=== PATIENT | female | born 1950 | race Caucasian/White ===

== ENCOUNTER → 2019-08-08 08:17 | Outpatient (BNVA) | payer MEDICARE, OTHER, SELFPAY | PROVIDERS: Family Provider Nurse Practitioner Family; PCP Internal Medicine; Referring Provider Nurse Practitioner Family; Visit Provider Anesthesiology Pain Medicine | DX: M43.06 Spondylolysis, lumbar region (principal); M54.9 Dorsalgia, unspecified; M62.830 Muscle spasm of back; Z79.891 Long term (current) use of opiate analgesic | CPT/HCPCS: 99203; 99204 ==

== ENCOUNTER → 2019-11-06 12:51 | Outpatient (BNVA) | payer MEDICARE, OTHER, SELFPAY | PROVIDERS: Family Provider Nurse Practitioner Family; PCP Internal Medicine; Visit Provider Internal Medicine | DX: R73.9 Hyperglycemia, unspecified (principal); E03.9 Hypothyroidism, unspecified; E27.40 Unspecified adrenocortical insufficiency; D35.2 Benign neoplasm of pituitary gland; E89.3 Postprocedural hypopituitarism; E26.9 Hyperaldosteronism, unspecified; E03.8 Other specified hypothyroidism; R42 Dizziness and giddiness; E66.9 Obesity, unspecified | CPT/HCPCS: 99204 ==

== ENCOUNTER → 2019-12-04 15:19 | Outpatient (BNVA) | payer MEDICARE, OTHER, SELFPAY | PROVIDERS: Family Provider Nurse Practitioner Family; PCP Internal Medicine; Visit Provider Internal Medicine | DX: D35.2 Benign neoplasm of pituitary gland (principal); E03.8 Other specified hypothyroidism; E23.0 Hypopituitarism; E26.9 Hyperaldosteronism, unspecified; E27.40 Unspecified adrenocortical insufficiency; E66.9 Obesity, unspecified; E89.3 Postprocedural hypopituitarism; R73.03 Prediabetes; R73.9 Hyperglycemia, unspecified | CPT/HCPCS: 99214 ==

== ENCOUNTER → 2020-01-03 11:06 | Outpatient (BNVA) | payer MEDICARE, OTHER, SELFPAY | PROVIDERS: Family Provider Nurse Practitioner Family; PCP Internal Medicine; Visit Provider Internal Medicine | DX: D35.2 Benign neoplasm of pituitary gland (principal); E03.8 Other specified hypothyroidism; E23.0 Hypopituitarism; E26.9 Hyperaldosteronism, unspecified; E27.40 Unspecified adrenocortical insufficiency; E66.9 Obesity, unspecified; R73.03 Prediabetes | CPT/HCPCS: 99214 ==

== ENCOUNTER 2020-02-04 14:53 | Outpatient (CLI) | payer MEDICARE, OTHER, SELFPAY ==
[2020-02-04 16:58] LABS: Blood Urea Nitrogen 17 mg/dL (8-23); Calcium 9.4 mg/dL (8.5-10.5); Carbon Dioxide 30 mmol/L (22-29); Chloride 100 mmol/L (98-107); Glomerular Filtration Rate 62.5 mL/min (90-130); Glucose 113 mg/dL (65-115); Osmolality Calculated 292 mOsm/kg (285-295); Sodium 140 mmol/L (136-145)
[2020-02-04 17:08] LABS: Anion Gap 13.4 (5-19); Potassium 3.4 mmol/L (3.5-5.1)
[2020-02-04 18:05] LABS: Estmated Average Glucose 111; Hemoglobin A1C 5.5 % (4.0-6.0)
[2020-02-04 22:53] LABS: Free T4 Free Thyroxine 1.76 ng/dL (0.82-1.77)
== END 2020-02-04 14:54 | disposition home or self-care (01) ==
PROVIDERS: PCP Internal Medicine; Visit Provider Internal Medicine
DX: E03.9 Hypothyroidism, unspecified (principal); E26.9 Hyperaldosteronism, unspecified; E66.9 Obesity, unspecified; E87.5 Hyperkalemia; E89.3 Postprocedural hypopituitarism; R73.03 Prediabetes; R73.9 Hyperglycemia, unspecified
CPT/HCPCS: 36415; 80048; 83036; 84439; 99213

== ENCOUNTER → 2020-03-16 12:58 | Outpatient (BNVA) | payer MEDICARE, OTHER, SELFPAY | PROVIDERS: PCP Internal Medicine; Visit Provider Internal Medicine | DX: E03.8 Other specified hypothyroidism (principal); E26.9 Hyperaldosteronism, unspecified; E66.9 Obesity, unspecified; E87.6 Hypokalemia; E89.3 Postprocedural hypopituitarism; R73.03 Prediabetes | CPT/HCPCS: 99213 ==

== ENCOUNTER → 2020-04-20 13:17 | Outpatient (BNVA) | payer MEDICARE, OTHER, SELFPAY | PROVIDERS: PCP Internal Medicine; Visit Provider Internal Medicine | DX: E26.9 Hyperaldosteronism, unspecified (principal); E89.3 Postprocedural hypopituitarism; E66.9 Obesity, unspecified; R73.03 Prediabetes; Z87.892 Personal history of anaphylaxis | CPT/HCPCS: 99214 ==

== ENCOUNTER → 2020-06-04 10:25 | Outpatient (BNVA) | payer MEDICARE, OTHER, SELFPAY | PROVIDERS: PCP Internal Medicine; Visit Provider Internal Medicine | DX: E03.8 Other specified hypothyroidism (principal); E26.9 Hyperaldosteronism, unspecified; E66.9 Obesity, unspecified; E89.3 Postprocedural hypopituitarism; R73.03 Prediabetes; Z87.892 Personal history of anaphylaxis | CPT/HCPCS: 99213 ==

== ENCOUNTER 2020-09-25 05:50 | Outpatient (CLI) | payer MEDICARE, OTHER, SELFPAY ==
[2020-09-25 06:40] VITALS: BP 161/102; PULSE 66; RESP 20; TEMP 36.6; O2SAT 98
[2020-09-25 06:51] VITALS: BMI 49.9
--- NOTE | 2020-09-25 06:53 | W.ED.GENADLT ---
HPI - General Adult General: Source: patient Mode of arrival: ambulatory Limitations: no limitations History of Present Illness: HPI narrative: Patient diagnosed with Covid 2 days ago. Patient states she was vaccinated in June. She denies any shortness of breath fever or chills. complaint: Covid infusion Severity: mild Relieving factors: none Exacerbating factors: none Associated symptoms: Reports cough and malaise; Deny chest pain, dyspnea, fevers/chills, headache(s), nausea, rash or vomiting Treatments prior to arrival: none Review of Systems Const: Reports: malaise; Denies: fever(s) or chills Eyes: Denies: change in vision ENMT: Denies: throat pain Card: Denies: chest pain Resp: Denies: dyspnea GI: Denies: abdominal pain, nausea or vomiting : Denies: flank pain Musc: Denies: neck pain or back pain Skin/Breast: Denies: rash or pruritus Neuro: Denies: headache(s) or numbness in extremities Psych: Denies: anxiety Charli/Lymph: Denies: enlarged lymph nodes PFSH ED PFSH: Medical History Hyperaldosteronism 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 Surgical History H/O shoulder surgery History of hysterectomy History of pituitary surgery Family History Father Cancer pancreatic cancer Sister Cancer lung Social History Smoking and tobacco status: never smoked Second hand smoke exposure: No Alcohol intake: never Physical Exam Const: COMMON NORMALS: no acute distress, patient oriented x3, no limitations and well nourished GENERAL APPEARANCE: cooperative HENMT: COMMON NORMALS: normocephalic and atraumatic HEAD & SCALP: normocephalic and atraumatic FACE & SINUS: normal facial exam Eye: COMMON NORMALS: EOMs intact bilaterally Neck/C-Spine: COMMON NORMALS: full ROM, no lymphadenopathy, supple and no meningeal signs GENERAL: Yes normal visual inspection Lymph: LYMPHATIC: no lymphadenopathy noted Chest: COMMONS NORMALS: normal inspection of the chest and normal palpation of entire chest wall CHEST: No Ecchymosis present and No rash Resp: COMMON NORMALS: normal respiratory effort, No retractions and clear to auscultation bilaterally EFFORT & INSPECTION: No respiratory distress AUSCULTATION: clear to auscultation bilaterally Cardio: COMMON NORMALS: regular rate, regular rhythm and Peripheral pulses 2+ throughout JUGULAR VENOUS DISTENTION: no JVD RATE: regular rate RHYTHM: regular rhythm PERIPHERAL PULSES: Peripheral pulses 2+ throughout GI: COMMON NORMALS: Normal to inspection, nondistended, normoactive bowel sounds present and non-tender Extremity: COMMON NORMALS: normal to inspection, full ROM and capillary refill normal Neuro: COMMON NORMALS: patient oriented x3, CN's II-XII intact bilaterally, no focal motor deficits and no sensory deficits noted MENINGEAL SIGNS: Yes no meningeal signs Psych: COMMON NORMALS: mental status grossly normal and Normal thought process present THOUGHT PROCESS: Normal thought process present Skin: COMMON NORMALS: no rashes or lesions noted and no wounds GENERAL SKIN EXAM: no rashes or lesions noted Course Vital Signs: Vital signs: Vital Signs Temperature 97.9 F 09/25/20 06:40 Pulse Rate 66 09/25/20 08:51 Respiratory Rate 16 09/25/20 08:51 Blood Pressure 133/66 09/25/20 08:51 Pulse Oximetry 95 09/25/20 08:51 MDM - General Adult MDM Narrative: Medical decision making narrative: 0940: Patient doing well. Will discharge patient. Discharge Plan Discharge Patient Disposition: Home Prescriptions: No Action losartan 100 mg tablet 100 mg PO DAILY RF: 0 levothyroxine 175 mcg capsule 175 mcg PO DAILY RF: 0 amitriptyline 25 mg tablet 50 mg PO DAILY RF: 0 pramipexole [Mirapex] 0.125 mg tablet 0.25 mg PO DAILY RF: 0 epinephrine [EpiPen 2-Nabeel] 0.3 mg/0.3 mL auto-injector 0.3 mg IM Q10M PRN (Reason: anaphylaxis) Qty: 2 RF: 3 triamterene-hydrochlorothiazid 75-50 mg tablet 1 tab PO DAILY RF: 0 esomeprazole magnesium [Nexium] 40 mg capsule,delayed release(DR/EC) 40 mg PO DAILY RF: 0 ibuprofen 800 mg tablet 800 mg PO TID RF: 0 naproxen 500 mg tablet 500 mg PO BID RF: 0 prednisone 5 mg tablet 5 mg PO DAILY Qty: 90 RF: 3 prednisone 2.5 mg tablet 2.5 mg PO DAILY Qty: 90 RF: 3 Discharge Orders: Discharge Order (Routine); Ordered 09/25/20 Ordered By: Diego Pino Referrals: Jeanmarie Riddle MD [Primary Care Provider] - Activity: Increase activity as tolerated Patient Instructions: Viral Syndrome (ED) Activity Restrictions/Additional Instructions: Return if any problems. Coding Level of Care Code ED Senior Software Developer for Chg Fwd Exam Comprehensive
--- NOTE | 2020-09-25 07:05 | PC.NURSE ---
Report given to Maribel SANCHES
[2020-09-25 08:16] VITALS: BP 152/78; PULSE 63; RESP 16; O2SAT 96
[2020-09-25 08:51] VITALS: BP 133/66; PULSE 66; RESP 16; O2SAT 95
[2020-09-25 09:48] VITALS: BP 145/78; PULSE 90; RESP 19; O2SAT 97
--- NOTE | 2020-09-30 13:06 | DCPLANNER ---
park recreation manager had message that patient received the BAM infusion. park recreation manager called and spoke with patient, she stated that she is feeling better. Patient stated that she is still extremely fatigued, that her coughing has gotten better and that her headache is gone.
== END 2020-09-25 05:51 | disposition home or self-care (01) ==
PROVIDERS: PCP Internal Medicine; Visit Provider Nurse Practitioner Family
DX: U07.1 COVID-19 (principal)
CPT/HCPCS: 96365

== ENCOUNTER → 2020-11-05 12:29 | Outpatient (BNVA) | payer MEDICARE, OTHER, SELFPAY | PROVIDERS: PCP Internal Medicine; Visit Provider Family Medicine | DX: E03.8 Other specified hypothyroidism (principal); E89.3 Postprocedural hypopituitarism; R73.03 Prediabetes; T14.8XXA Other injury of unspecified body region, initial encounter; W57.XXXA Bitten or stung by nonvenomous insect and other nonvenomous arthropods, initial encounter | CPT/HCPCS: 80048; 83036; 84439; 86618; 86666; 86757 ==

== ENCOUNTER → 2020-11-09 09:42 | Outpatient (BNVA) | payer MEDICARE, OTHER, SELFPAY | PROVIDERS: PCP Family Medicine; Referring Provider Nurse Practitioner Family; Visit Provider Anesthesiology Pain Medicine | DX: M47.816 Spondylosis without myelopathy or radiculopathy, lumbar region (principal); M43.06 Spondylolysis, lumbar region; M25.551 Pain in right hip; M25.552 Pain in left hip; M62.830 Muscle spasm of back; M79.605 Pain in left leg; Z87.891 Personal history of nicotine dependence; Z96.82 Presence of neurostimulator | CPT/HCPCS: 99214 ==

== ENCOUNTER → 2021-01-04 15:39 | Outpatient (BNVA) | payer MEDICARE, OTHER, SELFPAY | PROVIDERS: PCP Family Medicine; Visit Provider Internal Medicine Cardiovascular Disease | DX: R55 Syncope and collapse (principal); R06.00 Dyspnea, unspecified; R00.2 Palpitations; R60.9 Edema, unspecified; R06.02 Shortness of breath; I50.33 Acute on chronic diastolic (congestive) heart failure; R03.0 Elevated blood-pressure reading, without diagnosis of hypertension; E26.9 Hyperaldosteronism, unspecified; E03.9 Hypothyroidism, unspecified; E89.3 Postprocedural hypopituitarism | CPT/HCPCS: 80048; 83880 ==

== ENCOUNTER 2021-01-18 15:01 | Inpatient (IN) | payer MEDICARE, OTHER, SELFPAY ==
--- NOTE | 2021-01-18 15:07 | XR_ITS ---
WS: [id number] Exam: XR chest 1V portable [id number] Date/Time of Exam: 01/18/2021 3:07 PM Reason For Exam: chest pain Comparison 08/14/2013. The lungs are clear and fully expanded and did. Normal cardiomediastinal silhouette. No pleural effus ions. Regional bony elements are intact. XR/XR chest 1V portable [id number] IMPRESSION: 1. No acute cardiopulmonary finding.
--- NOTE | 2021-01-18 15:08 | ECG_ITS ---
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 Measurements Intervals [place] Rate: 82 P: 32 NM: 140 QRS: -21 QRSD: 94 T: 53 QT: 378 QTc: 444 Interpretive Statements SINUS RHYTHM WITH FREQUENT SUPRAVENTRICULAR PREMATURE COMPLEXES BORDERLINE LEFT AXIS DEVIATION [QRS AXIS < -20] MODERATE T-WAVE ABNORMALITY, CONSIDER ANTERIOR ISCHEMIA [-0.1+ mV T-WAVE IN V3/V4] No previous ECG available for comparison Electronically Signed On 01-18-2021 23:49:20 CDT by Chris Sellers M.D. [email or web address]
[2021-01-18 16:01] VITALS: BP 172/92; PULSE 85; RESP 20; TEMP 36.8; O2SAT 96
[2021-01-18 16:24] VITALS: BP 146/97; PULSE 85; RESP 18; O2SAT 95
[2021-01-18 16:35] LABS: Basophils # 0.1 10^3/uL (0.0-0.1); Basophils % 0.2 %; Eosinophils % 0.1 %; Hematocrit 43.9 % (37.0-47.0); Hemoglobin 13.3 g/dL (11.5-15.3); Lymphocytes # 1.5 10^3/uL (0.8-4.8); Lymphocytes % 5.6 %; Mean Corpuscular HGB Conc 30.3 g/dL (30.0-36.0); Mean Corpuscular Hemoglobin 23.1 pg (28.0-34.0); Mean Corpuscular Volume 76.2 fl (81-99); Mean Platelet Volume 9.5 fL (7.4-10.4); Monocytes # 1.7 10^3/uL (0.2-0.9); Monocytes % 6.5 %; Neutrophils # 22.86 10^3/uL (1.8-7.7); Neutrophils % 85.7 %; Nucleated Red Blood Cells % 0 %; Platelet Count 363 10^3/cmm (130-400); Red Blood Count 5.76 10^6/uL (4.1-5.3); Red Cell Distribution Width 16.2 % (12.1-15.1); White Blood Count 26.6 10^3/uL (4.0-10.0)
--- NOTE | 2021-01-18 17:24 | W.ED.SOB ---
Documented by User: Shiraz Colon DO 01/28/21 06:09 HPI - SOB/Dyspnea General: Chief Complaint: ER Hold Stated Complaint: CHF COMPLICATIONS Time Seen by Provider: 01/18/21 15:48 History of Present Illness: HPI Narrative: 62-year-old female presents emergency room complaining of rapid heart rates and orthopnea. She is has known history of congestive heart failure and A. fib she was recently started on Cardizem she is not on any anticoagulants. She states she is fine as long as she is resting with a time she stands up and walks around she begins to have a rapid heart rate. Reviewing her chart there is a concern about a PE because of her tachycardia and shortness of breath there is no mention of any of the Holter monitor showing A. fib there is a mention of report of A. fib at a PCPs office. MD elicited complaint: shortness of breath and cough Pertinent past history: congestive heart failure Onset (ago): day(s) Timing: constant Severity: mild Exacerbating factors: exertion Relieving factors: rest Known history of: congestive heart failure Associated symptoms: Deny abdominal pain, chest pain, fever(s), nausea, orthopnea or vomiting Review of Systems Const: Denies: fever(s), chills, body aches, change in appetite, fatigue or malaise ENMT: Denies: throat pain, ear or mastoid pain, nasal discharge or nasal congestion Card: Denies: chest pain, edema, dyspnea on exertion or orthopnea Resp: Denies: dyspnea, productive cough or non-productive cough GI: Denies: abdominal pain, nausea, vomiting, hematemesis, coffee ground emesis, diarrhea, constipation, bloating, hematochezia or melena : Denies: flank pain, difficulty voiding, dysuria, urinary frequency or urinary urgency Skin/Breast: Denies: rash or pruritus PFSH ED PFSH: Medical History Adrenal insufficiency Benign essential hypertension with target blood pressure below 140/90 Central hypothyroidism CHF (congestive heart failure) Chronic back pain Follows at pain clinic for periodic injections COVID-19 (~09/2020) Edema Facet arthritis, degenerative, lumbar spine History of anaphylaxis History of atrial fibrillation Intermittent, has not required long-term anticoagulation or focused treatment History of COVID-19 HTN (hypertension) Hyperaldosteronism 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 Mother Cancer Lung disease Grandfather Cancer Grandmother Dementia Denies family history of Diabetes CAD (coronary artery disease) Clotting disorder Chronic kidney disease (CKD) Suicide Anesthesia complication Bleeding disorder Stroke Social History Smoking and tobacco status: never smoked Second hand smoke exposure: No Alcohol intake: never Caregiver/support person: Yes Lives independently: Yes Household members: spouse Marital status: service: No Current occupational status: retired Current gender identity: Female Physical Exam Const: COMMON NORMALS: no acute distress GENERAL APPEARANCE: cooperative and comfortable ORIENTATION/CONSCIOUSNESS: Yes awake, Yes oriented to person, Yes oriented to place and Yes oriented to time HENMT: COMMON NORMALS: normocephalic, atraumatic and hearing grossly normal bilaterally HEAD & SCALP: normocephalic and atraumatic Neck/C-Spine: COMMON NORMALS: no JVD Resp: COMMON NORMALS: normal respiratory effort, No retractions, No use of accessory muscles and clear to auscultation bilaterally AUSCULTATION: clear to auscultation bilaterally Cardio: COMMON NORMALS: no JVD, regular rate, regular rhythm and No murmurs present (Cardio) RATE: regular rate RHYTHM: regular rhythm GI: COMMON NORMALS: Soft to palpation and No hepatosplenomegaly present AUSCULTATION: Yes normoactive bowel sounds PALPATION: Yes Soft to palpation, No Tenderness to palpation present (GI), No Guarding due to palpation present (GI) and Yes No hepatosplenomegaly present Extremity: COMMON NORMALS: normal to inspection, capillary refill normal, no clubbing, cyanosis or edema, no calf tenderness and no pedal edema Neuro: SENSORIUM/ORIENTATION: Yes oriented to person, Yes oriented to place and Yes oriented to time Skin: COMMON NORMALS: no rashes or lesions noted GENERAL SKIN EXAM: no rashes or lesions noted Course Vital Signs: Vital signs: Vital Signs Temperature 98.0 F 01/21/21 15:34 Pulse Rate 58 L 01/21/21 15:34 Respiratory Rate 20 H 01/21/21 15:34 Blood Pressure 133/70 01/21/21 15:34 Pulse Oximetry 97 01/21/21 15:34 MDM - SOB/Dyspnea MDM Narrative: Medical decision making narrative: Care turned over to Dr. Durbin at change shift see his notes for diagnosis and disposition Lab Data: Labs: Lab Results 01/18/21 01/18/21 01/18/21 16:28 16:28 16:28 WBC 26.6 10^3/uL H 10 ^3/uL (4.0-10.0) RBC 5.76 10^6/uL H 10 ^6/uL (4.1-5.3) Hgb 13.3 g/dL g/dL (11.5-15.3) Hct 43.9 % % (37.0-47.0) MCV 76.2 fl L fl (81-99) MCH 23.1 pg L pg (28.0-34.0) MCHC 30.3 g/dL g/dL (30.0-36.0) RDW 16.2 % H % (12.1-15.1) Plt Count 363 10^3/cmm 10^3 /cmm (130-400) MPV 9.5 fL fL (7.4-10.4) Neut % (Auto) 85.7 % % Lymph % (Auto) 5.6 % % [place] % (Auto) 6.5 % % Eos % (Auto) 0.1 % % Baso % (Auto) 0.2 % % Neut # (Auto) 22.86 10^3/uL H 1 0^3/uL (1.8-7.7) Lymph # (Auto) 1.5 10^3/uL 10^3/ uL (0.8-4.8) [place] # (Auto) 1.7 10^3/uL H 10^ 3/uL (0.2-0.9) Eos # (Auto) 0.0 10^3/uL 10^3/ uL (0.0-0.8) Baso # (Auto) 0.1 10^3/uL 10^3/ uL (0.0-0.1) Nucleated RBC % (a uto) 0 % % Nucleated RBCs # 0.0 /100WBC /100W BC D-Dimer Sodium 137 mmol/L mmol/L (136-145) Potassium 3.9 mmol/L mmol/L (3.5-5.1) Chloride 96 mmol/L L mmol/ L (98-107) Carbon Dioxide 28 mmol/L mmol/L (22-29) Anion Gap 16.9 (5-19) BUN 34 mg/dL H mg/dL (8-23) Creatinine 1.2 mg/dL H mg/dL (0.5-0.9) GFR Calculation 44.7 mL/min L mL/ min (90-130) Glucose 158 mg/dL H mg/dL (65-115) Calculated Osmolal ity 295 mOsm/kg mOsm/ kg (285-295) Lactic Acid Calcium 9.5 mg/dL mg/dL (8.5-10.5) Total Bilirubin 0.4 mg/dL mg/dL (0.15-1.2) AST 11 U/L U/L (0-32) ALT 23 U/L U/L (0-33) Alkaline Phosphata se 112 IU/L H IU/L (35-105) Troponin T Baselin e 11 ng/L H ng/L (0-10) Troponin T 120 Min [place] Troponin T NT-Pro-B Natriuret Pep 64 pg/mL pg/mL (0-125) Total Protein 6.5 g/dL L g/dL (6.6-8.7) Albumin 4.1 g/dL g/dL (3.5-5.2) Globulin 2.4 g/dL g/dL (1.3-4.6) Urine Color Urine Appearance Urine pH Ur Specific Gravit y Urine Protein Urine Glucose (UA) Urine Ketones Urine Blood Urine Nitrate Urine Bilirubin Urine Urobilinogen Ur Leukocyte Saida ase Urine RBC Urine WBC Ur Squamous Epith Cells Amorphous Sediment Urine Bacteria 01/18/21 01/18/21 01/18/21 16:28 17:37 19:33 WBC RBC Hgb Hct MCV MCH MCHC RDW Plt Count MPV Neut % (Auto) Lymph % (Auto) [place] % (Auto) Eos % (Auto) Baso % (Auto) Neut # (Auto) Lymph # (Auto) [place] # (Auto) Eos # (Auto) Baso # (Auto) Nucleated RBC % (a uto) Nucleated RBCs # D-Dimer 0.53 ug/mIFEU ug/ mIFEU (0-0.59) Sodium Potassium Chloride Carbon Dioxide Anion Gap BUN Creatinine GFR Calculation Glucose Calculated Osmolal ity Lactic Acid 2.2 mmol/L mmol/L (0.5-2.2) Calcium Total Bilirubin AST ALT Alkaline Phosphata se Troponin T Baselin e Troponin T 120 Min [place] 11.73 ng/L H ng/L (0-10) Delta Troponin T 0.73 ABS# ABS# (0-10) NT-Pro-B Natriuret Pep Total Protein Albumin Globulin Urine Color Urine Appearance Urine pH Ur Specific Gravit y Urine Protein Urine Glucose (UA) Urine Ketones Urine Blood Urine Nitrate Urine Bilirubin Urine Urobilinogen Ur Leukocyte Saida ase Urine RBC Urine WBC Ur Squamous Epith Cells Amorphous Sediment Urine Bacteria 01/18/21 20:06 WBC RBC Hgb Hct MCV MCH MCHC RDW Plt Count MPV Neut % (Auto) Lymph % (Auto) [place] % (Auto) Eos % (Auto) Baso % (Auto) Neut # (Auto) Lymph # (Auto) [place] # (Auto) Eos # (Auto) Baso # (Auto) Nucleated RBC % (a uto) Nucleated RBCs # D-Dimer Sodium Potassium Chloride Carbon Dioxide Anion Gap BUN Creatinine GFR Calculation Glucose Calculated Osmolal ity Lactic Acid Calcium Total Bilirubin AST ALT Alkaline Phosphata se Troponin T Baselin e Troponin T 120 Min [place] Troponin T NT-Pro-B Natriuret Pep Total Protein Albumin Globulin Urine Color Yellow (Yellow) Urine Appearance Clear (CLEAR) Urine pH 7 (5-7) Ur Specific Gravit y 1.010 (1.005-1.030) Urine Protein Neg (Negative) Urine Glucose (UA) Norm (Normal) Urine Ketones Negative (Negative) Urine Blood 2+ H (Negative) Urine Nitrate Negative (Negative) Urine Bilirubin Neg (Negative) Urine Urobilinogen Norm mg/dL mg/dL (Negative) Ur Leukocyte Saida ase Negative (Negative) Urine RBC 10-15 /hpf H /hpf (0-2) Urine WBC 0-4 /hpf H /hpf (0-5) Ur Squamous Epith Cells 0-4 /hpf H /hpf (0-5) Amorphous Sediment Not Reportable Urine Bacteria Trace /hpf /hpf (NONE) Discharge Plan Discharge Patient Disposition: Admitted As Inpatient Admit Provider: Elizabeth Wan Clinical Impression: SOB (shortness of breath), Tachycardia Condition: Stable Discharge Diet: Low Salt and Low Cholesterol Discharge Activity: Increase activity as tolerated and Oxygen as instructed Coding Level of Care Code ED Computed Tomography Technologist for Chg Fwd Exam Comprehensive Documented by User: Lazarus Durbin MD 01/18/21 21:24 HPI - SOB/Dyspnea General: Chief Complaint: ER Hold Stated Complaint: CHF COMPLICATIONS Time Seen by Provider: 01/18/21 15:48 PFSH ED PFSH: Medical History Adrenal insufficiency Benign essential hypertension with target blood pressure below 140/90 Central hypothyroidism CHF (congestive heart failure) Chronic back pain Follows at pain clinic for periodic injections COVID-19 (~09/2020) Edema Facet arthritis, degenerative, lumbar spine History of anaphylaxis History of atrial fibrillation Intermittent, has not required long-term anticoagulation or focused treatment History of COVID-19 HTN (hypertension) Hyperaldosteronism 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 Mother Cancer Lung disease Grandfather Cancer Grandmother Dementia Denies family history of Diabetes CAD (coronary artery disease) Clotting disorder Chronic kidney disease (CKD) Suicide Anesthesia complication Bleeding disorder Stroke Social History Smoking and tobacco status: never smoked Second hand smoke exposure: No Alcohol intake: never Caregiver/support person: Yes Lives independently: Yes Household members: spouse Marital status: service: No Current occupational status: retired Current gender identity: Female Physical Exam Const: COMMON NORMALS: no acute distress, patient oriented x3 and healthy appearing HENMT: COMMON NORMALS: normocephalic and atraumatic HEAD & SCALP: normocephalic and atraumatic Eye: COMMON NORMALS: Equal, round and reactive pupils present and EOMs intact bilaterally PUPIL: Yes Equal, round and reactive pupils present Neck/C-Spine: COMMON NORMALS: full ROM and supple Chest: COMMONS NORMALS: normal inspection of the chest and normal palpation of entire chest wall Resp: COMMON NORMALS: normal respiratory effort, No retractions, No use of accessory muscles and clear to auscultation bilaterally AUSCULTATION: clear to auscultation bilaterally Cardio: COMMON NORMALS: regular rate, regular rhythm and No murmurs present (Cardio) RATE: regular rate RHYTHM: regular rhythm GI: COMMON NORMALS: Normal to inspection, nondistended, normoactive bowel sounds present, Soft to palpation, non-tender and no masses PALPATION: Yes Soft to palpation Extremity: COMMON NORMALS: normal to inspection and full ROM Neuro: COMMON NORMALS: patient oriented x3, moves all extremities and no focal motor deficits Psych: COMMON NORMALS: mental status grossly normal, Normal thought process present and cooperative THOUGHT PROCESS: Normal thought process present Skin: COMMON NORMALS: no rashes or lesions noted and no wounds GENERAL SKIN EXAM: no rashes or lesions noted Course Vital Signs: Vital signs: Vital Signs Temperature 98.0 F 01/21/21 15:34 Pulse Rate 58 L 01/21/21 15:34 Respiratory Rate 20 H 01/21/21 15:34 Blood Pressure 133/70 01/21/21 15:34 Pulse Oximetry 97 01/21/21 15:34 MDM - SOB/Dyspnea MDM Narrative: Medical decision making narrative: Patient presents her dyspnea and tachycardia has been going on for weeks. Patient seen her cardiology office who had sent her here. Her D-dimer here is negative chest x-ray is clear she does have an elevated white count likely due to her steroid use. Will admit for observation for dyspnea and tachycardia have cardiology consulted as well. Lab Data: Labs: Lab Results 01/18/21 01/18/21 01/18/21 16:28 16:28 16:28 WBC 26.6 10^3/uL H 10 ^3/uL (4.0-10.0) RBC 5.76 10^6/uL H 10 ^6/uL (4.1-5.3) Hgb 13.3 g/dL g/dL (11.5-15.3) Hct 43.9 % % (37.0-47.0) MCV 76.2 fl L fl (81-99) MCH 23.1 pg L pg (28.0-34.0) MCHC 30.3 g/dL g/dL (30.0-36.0) RDW 16.2 % H % (12.1-15.1) Plt Count 363 10^3/cmm 10^3 /cmm (130-400) MPV 9.5 fL fL (7.4-10.4) Neut % (Auto) 85.7 % % Lymph % (Auto) 5.6 % % [place] % (Auto) 6.5 % % Eos % (Auto) 0.1 % % Baso % (Auto) 0.2 % % Neut # (Auto) 22.86 10^3/uL H 1 0^3/uL (1.8-7.7) Lymph # (Auto) 1.5 10^3/uL 10^3/ uL (0.8-4.8) [place] # (Auto) 1.7 10^3/uL H 10^ 3/uL (0.2-0.9) Eos # (Auto) 0.0 10^3/uL 10^3/ uL (0.0-0.8) Baso # (Auto) 0.1 10^3/uL 10^3/ uL (0.0-0.1) Nucleated RBC % (a uto) 0 % % Nucleated RBCs # 0.0 /100WBC /100W BC D-Dimer Sodium 137 mmol/L mmol/L (136-145) Potassium 3.9 mmol/L mmol/L (3.5-5.1) Chloride 96 mmol/L L mmol/ L (98-107) Carbon Dioxide 28 mmol/L mmol/L (22-29) Anion Gap 16.9 (5-19) BUN 34 mg/dL H mg/dL (8-23) Creatinine 1.2 mg/dL H mg/dL (0.5-0.9) GFR Calculation 44.7 mL/min L mL/ min (90-130) Glucose 158 mg/dL H mg/dL (65-115) Calculated Osmolal ity 295 mOsm/kg mOsm/ kg (285-295) Lactic Acid Calcium 9.5 mg/dL mg/dL (8.5-10.5) Total Bilirubin 0.4 mg/dL mg/dL (0.15-1.2) AST 11 U/L U/L (0-32) ALT 23 U/L U/L (0-33) Alkaline Phosphata se 112 IU/L H IU/L (35-105) Troponin T Baselin e 11 ng/L H ng/L (0-10) Troponin T 120 Min [place] Troponin T NT-Pro-B Natriuret Pep 64 pg/mL pg/mL (0-125) Total Protein 6.5 g/dL L g/dL (6.6-8.7) Albumin 4.1 g/dL g/dL (3.5-5.2) Globulin 2.4 g/dL g/dL (1.3-4.6) Urine Color Urine Appearance Urine pH Ur Specific Gravit y Urine Protein Urine Glucose (UA) Urine Ketones Urine Blood Urine Nitrate Urine Bilirubin Urine Urobilinogen Ur Leukocyte Saida ase Urine RBC Urine WBC Ur Squamous Epith Cells Amorphous Sediment Urine Bacteria 01/18/21 01/18/21 01/18/21 16:28 17:37 19:33 WBC RBC Hgb Hct MCV MCH MCHC RDW Plt Count MPV Neut % (Auto) Lymph % (Auto) [place] % (Auto) Eos % (Auto) Baso % (Auto) Neut # (Auto) Lymph # (Auto) [place] # (Auto) Eos # (Auto) Baso # (Auto) Nucleated RBC % (a uto) Nucleated RBCs # D-Dimer 0.53 ug/mIFEU ug/ mIFEU (0-0.59) Sodium Potassium Chloride Carbon Dioxide Anion Gap BUN Creatinine GFR Calculation Glucose Calculated Osmolal ity Lactic Acid 2.2 mmol/L mmol/L (0.5-2.2) Calcium Total Bilirubin AST ALT Alkaline Phosphata se Troponin T Baselin e Troponin T 120 Min [place] 11.73 ng/L H ng/L (0-10) Delta Troponin T 0.73 ABS# ABS# (0-10) NT-Pro-B Natriuret Pep Total Protein Albumin Globulin Urine Color Urine Appearance Urine pH Ur Specific Gravit y Urine Protein Urine Glucose (UA) Urine Ketones Urine Blood Urine Nitrate Urine Bilirubin Urine Urobilinogen Ur Leukocyte Saida ase Urine RBC Urine WBC Ur Squamous Epith Cells Amorphous Sediment Urine Bacteria 01/18/21 20:06 WBC RBC Hgb Hct MCV MCH MCHC RDW Plt Count MPV Neut % (Auto) Lymph % (Auto) [place] % (Auto) Eos % (Auto) Baso % (Auto) Neut # (Auto) Lymph # (Auto) [place] # (Auto) Eos # (Auto) Baso # (Auto) Nucleated RBC % (a uto) Nucleated RBCs # D-Dimer Sodium Potassium Chloride Carbon Dioxide Anion Gap BUN Creatinine GFR Calculation Glucose Calculated Osmolal ity Lactic Acid Calcium Total Bilirubin AST ALT Alkaline Phosphata se Troponin T Baselin e Troponin T 120 Min [place] Troponin T NT-Pro-B Natriuret Pep Total Protein Albumin Globulin Urine Color Yellow (Yellow) Urine Appearance Clear (CLEAR) Urine pH 7 (5-7) Ur Specific Gravit y 1.010 (1.005-1.030) Urine Protein Neg (Negative) Urine Glucose (UA) Norm (Normal) Urine Ketones Negative (Negative) Urine Blood 2+ H (Negative) Urine Nitrate Negative (Negative) Urine Bilirubin Neg (Negative) Urine Urobilinogen Norm mg/dL mg/dL (Negative) Ur Leukocyte Saida ase Negative (Negative) Urine RBC 10-15 /hpf H /hpf (0-2) Urine WBC 0-4 /hpf H /hpf (0-5) Ur Squamous Epith Cells 0-4 /hpf H /hpf (0-5) Amorphous Sediment Not Reportable Urine Bacteria Trace /hpf /hpf (NONE) Imaging Data^: CXR: Attestation: I personally reviewed and interpreted this imaging study as follows: Radiologist's impression: [address] [address] XRay Report Signed Patient: Carolyn Alexander Unit #: [id number] : 1950 Age/Sex: 70 / F ADM Date: 01/18/21 Loc: ER Room/Bed: Attending Dr: Ordering Provider/Ordering MD: Chapis Ruiz Date of Service: 01/18/21 Procedure(s): XR chest 1V portable [id number] Accession Number(s): [id number] Report Number: [id number] WS: [id number] Exam: XR chest 1V portable [id number] Date/Time of Exam: 01/18/2021 3:07 PM Reason For Exam: chest pain Comparison 08/14/2013. The lungs are clear and fully expanded and did. Normal cardiomediastinal silhouette. No pleural effusions. Regional bony elements are intact. XR/XR chest 1V portable [id number] IMPRESSION: 1. No acute cardiopulmonary finding. Dictated By: Marlo Brooks DO Signed By: Marlo Brooks DO Signed Date/Time: 01/18/211524 DD/ 1524 Discharge Plan Discharge Patient Disposition: Admitted As Inpatient Admit Provider: Elizabeth Wan Clinical Impression: SOB (shortness of breath), Tachycardia Condition: Stable Discharge Diet: Low Salt and Low Cholesterol Discharge Activity: Increase activity as tolerated and Oxygen as instructed Coding Level of Care Code ED Computed Tomography Technologist for Chg Fwd Exam Comprehensive
[2021-01-18 17:37] LABS: Troponin(5th) Baseline 11 ng/L (0-10)
[2021-01-18 17:46] LABS: Alanine Aminotransferase 23 U/L (0-33); Albumin Level 4.1 g/dL (3.5-5.2); Alkaline Phosphatase 112 IU/L (35-105); Anion Gap 16.9 (5-19); Aspartate Amino Transferase 11 U/L (0-32); Blood Urea Nitrogen 34 mg/dL (8-23); Calcium 9.5 mg/dL (8.5-10.5); Carbon Dioxide 28 mmol/L (22-29); Chloride 96 mmol/L (98-107); Globulin 2.4 g/dL (1.3-4.6); Glomerular Filtration Rate 44.7 mL/min (90-130); Glucose 158 mg/dL (65-115); NT Pro B Type Natriuretic Pept 64 pg/mL (0-125); Osmolality Calculated 295 mOsm/kg (285-295); Potassium 3.9 mmol/L (3.5-5.1); Sodium 137 mmol/L (136-145); Total Bilirubin 0.4 mg/dL (0.15-1.2); Total Protein 6.5 g/dL (6.6-8.7)
[2021-01-18 18:16] LABS: Lactic Sepsis W/Reflex 2.2 mmol/L (0.5-2.2)
[2021-01-18 19:33] LABS: Reflex Lactate Order REFLEX LACTIC ORDERD
[2021-01-18 20:05] LABS: Troponin 5 2HR 11.73 ng/L (0-10); Troponin 5 2HR Delta 0.73 ABS# (0-10)
[2021-01-18 20:09] VITALS: BP 128/89; PULSE 85; RESP 18; O2SAT 95
[2021-01-18 20:34] LABS: D Dimer 0.53 ug/mIFEU (0-0.59)
[2021-01-18 20:43] LABS: Blood Urine 2+ (Negative); Glucose Urine UA Norm (Normal); Ketones Urine Negative (Negative); Nitrate Urine Negative (Negative); Protein Urine Neg (Negative); Urine Appearance Clear (CLEAR); Urine Color Yellow (Yellow); pH Urine 7 (5-7)
[2021-01-18 20:44] LABS: Add Urine Microscopic? YES; Bilirubin Urine Neg (Negative); Leukocyte Esterase Urine Negative (Negative); Urobilinogen Urine Norm (Negative)
[2021-01-18 20:45] LABS: Bacteria Urine TRACE /hpf; Squamous Epithelial Cell Urine 0-4 /hpf (0-5); WBC Urine 0-4 /hpf (0-5)
[2021-01-18 20:46] LABS: Add Urine Culture? Yes
--- NOTE | 2021-01-18 21:08 | ECG_ITS ---
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 Measurements Intervals [place] Rate: 66 P: 36 SC: 142 QRS: -18 QRSD: 96 T: 59 QT: 410 QTc: 432 Interpretive Statements SINUS RHYTHM WITH SINUS ARRHYTHMIA MODERATE T-WAVE ABNORMALITY, CONSIDER ANTERIOR ISCHEMIA [-0.1+ mV T-WAVE IN V3/V4] Compared to ECG 01/18/2021 16:17:27 No significant changes Electronically Signed On 01-19-2021 23:36:11 CDT by Bahman Rowland M.D. [id number]
[2021-01-18 23:00] VITALS: BP 160/90; PULSE 83; RESP 18; O2SAT 94
[2021-01-19] VITALS (52 sets, daily range): BP systolic 96–165; BP diastolic 70–98; PULSE 65–104; RESP 13–34; TEMP 36.6–36.8; O2SAT 87–98
--- NOTE | 2021-01-19 00:37 | PC.NURSE ---
Pt updated on plan of care. Call light in reach. awaiting admit orders.
--- NOTE | 2021-01-19 01:12 | PC.NURSE ---
pt placed in hospital bed. Updated on plan of care. Call light in reach. No needs at this time
--- NOTE | 2021-01-19 02:41 | PC.NURSE ---
Pt placed on 2L O2 per NC. O2 sat up to 95% from 89%
--- NOTE | 2021-01-19 05:40 | PC.NURSE ---
Pt resting. No neds at this time. Call light in reach. Awaiting admit orders and room
--- NOTE | 2021-01-19 07:59 | P.HP_ITS ---
Providers/Chief Complaint Admitting Physician: Elizabeth Wan MD Primary Care Provider: Piedad Sandhu MD Chief Complaint: CHF COMPLICATIONS History of Present Illness Carolyn Alexander is a 70 year old female who presented to the emergency room from cardiology clinic. She had been seen there in follow-up because of worsening difficulty breathing and swelling along with tachycardia. She has been seen by Dr. Sellers and had outpatient Holter monitor done. Report from cardiology clinic note yesterday indicates that she had one episode of SVT but predominantly episodes were sinus tachycardia. She had had some weight gain despite doubling of Lasix dose. She also noted that she continued to have significant hypertension at home despite addition of diltiazem along with the di uresis. Its gotten to the point that she is getting very short of breath getting up and walking across the room. She is not able to lie down flat. Her legs have been staying swollen even when elevated. She did have Covid in September of this year. Symptoms have been noticeable since she had Covid but worse in the last 2 weeks. Patient was sent to the emergency room due to to concern for acute CHF. Work-up in the emergency room was really unrevealing with an unremarkable chest x-ray and a normal BNP. Physical exam however did show significant edema and pronounced dyspnea with minimal exertion. She is not requiring oxygen therapy. Despite attempts at outpatient management by several providers, her symptoms have been worsening. She is being admitted for further evaluation and treatment. Denies any chest pain. Has not had cardiac testing. Review of Systems Const: Reports: change in weight (Weight gain); Denies: fever(s) or chills ENMT: Denies: nasal congestion Card: Reports: palpitations and edema; Denies: chest pain Resp: Reports: dyspnea and non-productive cough; Denies: productive cough GI: Denies: abdominal pain, nausea, vomiting, diarrhea, constipation or hematochezia : Denies: difficulty voiding Musc: Reports: back pain (chronic) and extremity swelling Skin/Breast: Denies: rash Neuro: Reports: difficulty walking (due to symptoms); Denies: headache(s) or weakness in extremities Psych: Reports: anxiety Charli/Lymph: Denies: easy bruising or easy bleeding Medications/Allergies Home Medications Medication Instructions Recorded Confirmed Last Taken Type losartan 100 mg tablet 100 mg PO DAILY 08/08/19 01/18/21 Unknown History esomeprazole magnesium 40 mg 40 mg PO DAILY 11/06/19 01/18/21 Unknown History capsule,delayed release pramipexole 0.125 mg tablet 0.25 mg PO DAILY tab 11/06/19 01/18/21 Unknown History epinephrine 0.3 mg/0.3 mL 0.3 mg IM Q10M PRN #2 ea 04/20/20 01/18/21 Unknown Rx injection, auto-injector clotrimazole-betamethasone 1 1 applic TOPICAL BID 28 Days #45 g 11/11/20 01/18/21 Unknown Rx %-0.05 % topical cream ibuprofen 800 mg tablet 800 mg PO BID tab 12/02/20 01/18/21 Unknown History cetirizine 10 mg tablet 10 mg PO BID tab 01/04/21 01/18/21 Unknown History dexamethasone 1 mg tablet 2 mg PO DAILY tab 01/04/21 01/18/21 Unknown History diltiazem HCl 30 mg tablet 30 mg PO TID #90 tab 01/04/21 01/18/21 Unknown Rx duloxetine 30 mg capsule,delayed 60 mg PO DAILY cap 01/04/21 01/18/21 Unknown History release potassium chloride 10 mEq 20 meq PO BID 90 Days #360 tab 01/18/21 01/18/21 Unknown Rx tablet,extended release Diflucan 200 mg PO Q7D 01/19/21 01/19/21 01/15/21 History Immune Vitamin C 1 tab PO DAILY 01/19/21 01/19/21 Unknown History Lasix 40 mg PO BID 01/19/21 01/19/21 01/17/21 History allopurinol 100 mg PO DAILY PRN 01/19/21 01/19/21 Unknown History levothyroxine 175 mcg PO QAM 01/19/21 01/19/21 01/17/21 History oxybutynin chloride 20 mg PO QAM 01/19/21 01/19/21 01/17/21 History semaglutide [Ozempic] 0.25 mg SUBCUT .weekly 01/19/21 01/19/21 Unknown History semaglutide [Ozempic] 0.5 mg SUBCUT .weekly 01/19/21 01/19/21 Unknown History semaglutide [Ozempic] 1 mg SUBCUT .weekly 01/19/21 01/19/21 Unknown History triamterene-hydrochlorothiazid 1 tab PO QAM 01/19/21 01/19/21 01/17/21 History Allergies Allergy/AdvReac Type Severity Reaction Status Date / Time acetaminophen [From Tylenol] Allergy ALGY-Hives Verified 01/18/21 14:11 azithromycin Allergy ALGY-Anaphy Verified 01/18/21 14:11 laxis benzocaine Allergy ALGY-Hives Verified 01/18/21 14:11 butamben [From Cetacaine] Allergy ALGY-Swell Verified 01/19/21 08:08 Lip/Tongue/Throat codeine Allergy ALGY-Hives Verified 01/19/21 08:14 fentanyl Allergy ALGY-Anaphy Verified 01/19/21 08:14 laxis hydrocodone [From Vicodin] Allergy ALGY-Hives Verified 01/19/21 08:14 hydromorphone [From Dilaudid] Allergy ADR-Vomitin Verified 01/18/21 14:11 g Iodinated Contrast Media Allergy ALGY-Anaphy Verified 01/18/21 14:11 laxis liothyronine Allergy ADR-Nausea Verified 01/18/21 14:11 meperidine [From Demerol] Allergy Unknown Verified 01/19/21 08:14 morphine Allergy ALGY-Anaphy Verified 01/18/21 14:11 laxis nitrofurantoin Allergy ALGY-Joint Verified 01/18/21 14:11 [From Macrobid] Pain oxycodone [From Percocet] Allergy ALGY-Hives Verified 01/19/21 08:14 penicillin V Allergy ALGY-Hives Verified 01/18/21 14:11 Penicillins Allergy Unknown Verified 01/19/21 08:10 Phenothiazines Allergy ALGY-Anaphy Verified 01/18/21 14:11 laxis pregabalin [From Lyrica] Allergy ADV-Weaknes Verified 01/18/21 14:11 s procaine Allergy ALGY-Hives Verified 01/18/21 14:11 prochlorperazine Allergy ALGY-Anaphy Verified 01/18/21 14:11 [From Compazine] laxis Sulfa (Sulfonamide Allergy Unknown Verified 01/18/21 14:11 Antibiotics) tetracaine [From Cetacaine] Allergy ALGY-Swell Verified 10/26/21 08:08 Lip/Tongue/Throat PFSH Acute PFSH: Medical History (Updated 01/19/21 @ 09:10 by Elizabeth Wan MD) Adrenal insufficiency Central hypothyroidism Chronic back pain Follows at pain clinic for periodic injections COVID-19 (~09/2020) Facet arthritis, degenerative, lumbar spine History of anaphylaxis History of atrial fibrillation Intermittent, has not required long-term anticoagulation or focused treatment Hyperaldosteronism Hypopituitarism Lumbar spondylolysis Obesity, morbid, BMI 50 or higher Pituitary macroadenoma with extrasellar extension Prediabetes Steroid dependence Surgical History (Updated 01/19/21 @ 08:15 by Elizabeth Wan MD) H/O shoulder surgery History of hysterectomy History of pituitary surgery S/P insertion of spinal cord stimulator Family History Father Cancer pancreatic cancer Sister No problems noted. Mother Cancer Lung disease Grandfather Cancer Grandmother Dementia Denies family history of Diabetes CAD (coronary artery disease) Clotting disorder Chronic kidney disease (CKD) Suicide Anesthesia complication Bleeding disorder Stroke Social History (Updated 01/19/21 @ 08:31 by Elizabeth Wan MD) Smoking and tobacco status: never smoked Second hand smoke exposure: No Alcohol intake: never Caregiver/support person: Yes Lives independently: Yes Household members: spouse Marital status: service: No Current occupational status: retired Current gender identity: Female Vitals/I&O/Wt Last Vital Signs Temp 98.2 F 01/18/21 16:01 Pulse 68 01/19/21 05:42 Resp 18 01/19/21 05:42 BP 160/98 01/19/21 05:42 Pulse Ox 94 01/19/21 05:42 Physical Exam Narrative: EXAM NARRATIVE: Constitutional: Awake and alert, cooperative, looks tired HEENT: Normocephalic, extraocular movements are intact, oropharynx with moist mucous membranes Neck: Supple, not able to lie in position to adequately assess JVD currently Respiratory: Clear to auscultation bilaterally, no rales rhonchi or wheezes noted Cardiovascular: Regular rate and rhythm, distant heart sounds, no notable murmurs or rubs or gallops Abdomen: Soft, obese, positive bowel sounds Extremities: 3+ edema bilaterally Skin: Dry, mild stasis changes noted to the lower extremities Neuro: Speech clear, face symmetric, moves all extremities Psych: Cooperative Data : 01/18/21 16:28 01/18/21 16:28 Micro: Microbiology 01/18/21 19:33 Blood Culture - Preliminary Blood SPECIMEN COLLECTED 01/18/21 17:37 Blood Culture - Preliminary Blood SPECIMEN COLLECTED A&P Assessment and plan (1) SOB (shortness of breath): Shortness of breath and tachycardia have been present since Mrs. Alexander had Covid in September of this year. Long-haul Covid symptoms are consideration however the last couple of weeks her symptoms have been more severe occurring with less and less exertion and requiring more time for recovery. She describes associated orthopnea, increasing edema, changes in weight, increasing blood pressures. No reports of chest pain. Could be indicative of acute on chronic CHF although BNP is currently normal. No prior echocardiogram available. Body habitus and weight could indicate a component of obesity hypoventilation as a potential contributor although is not requiring oxygen therapy at least at rest. She had a Holter monitor of which at least partial results are in the medical record and show sinus tachycardia. She has had intermittent atrial fibrillation in the past but does not require chronic treatment for this. She has recently been started on diltiazem as an addition to blood pressure control. She does have a history of hypopituitary is him and is on chronic steroids which is another potential contributor in the form of respiratory muscle she has been followed by Dr. Sellers and Mariana Lawrence in cardiology clinic. She is being admitted primarily because her symptoms have not been able to be managed in the outpatient setting despite increasing oral diuretic therapy and other measures. In fact her symptoms have been worsening. 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 (7) Hyperaldosteronism: Status: Chronic (8) Central hypothyroidism: Status: Chronic (9) Adrenal insufficiency: Status: Chronic (10) Prediabetes: Status: Chronic (11) History of COVID-19: Status: Chronic Additional A&P Information Acute kidney injury from recent increase in diuretics versus chronic kidney disease not previously diagnosed Leukocytosis without acute foci of infection identified, may be reactive and is on steroids chronically Inpatient admission Continue serial cardiac enzymes Echocardiogram IV diuresis Add Nitropaste For now continue oral diltiazem although may consider increasing dose Continue home losartan Monitor urine output and renal function closely Repeat laboratory studies in the morning Cardiology consultation Continue home dexamethasone, levothyroxine Sliding scale insulin for prediabetes, was recently prescribed Ozempic but has not initiated it yet As needed albuterol Continue home allopurinol Continue home cetirizine Continue home duloxetine Continue PPI which is a home medication Continue home oxybutynin Continue home Mirapex Other home medications have currently been held Lovenox for DVT prophylaxis Supportive care otherwise Plans been discussed with patient and she has been given an opportunity to ask questions Currently anticipate discharge home Full code Attestations Medical Necessity Statement*: Anticipated stay greater than 2 midnights in a patient who has been having progressive respiratory and cardiac symptoms despite attempts at outpatient management to include initiation of diltiazem, increasing Lasix dose and other adjustments. She has continued to have weight gain and progressive decline in functional capacity necessitating further inpatient treatment and evaluation. 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
--- NOTE | 2021-01-19 08:25 | USCV_ITS ---
Carolyn Alexander Age: 70 Gender: F : 1950 Exam Date: 01/19/2021 09:56 Ordering Phys: Elizabeth Wan MD Technologist: Exam Location: [facility] – [place] Indication: DYSPNEA BP: 145 / 79 HR: 65 Rhythm: Other Technical Quality: Technically difficult study MEASUREMENTS (Male / Female) Normal Values 2D ECHO LV Diastolic Diameter PLAX 3.8 cm 4.2 - 5.9 / 3.9 - 5.3 cm LV Systolic Diameter PLAX 2.3 cm IVS Diastolic Thickness 1.2 cm 0.6 - 1.0 / 0.6 - 0.9 cm IVS Systolic Thickness 1.1 cm LVPW Diastolic Thickness 1.1 cm 0.6 - 1.0 / 0.6 - 0.9 cm LVPW Systolic Thickness 1.2 cm LVOT Diameter 2.0 cm LV Ejection Fraction 2D Teich 69.2 % LA Diameter 3.8 cm LA Width 3.7 cm LA Height 5.5 cm RA Width 4.2 cm RA Height 5.6 cm Aorta at Sinotubular Diameter 3.2 cm DOPPLER AV Peak Velocity 184.0 cm/s LVOT Peak Velocity 116.0 cm/s AV Area Cont Eq vti 2.5 cm squared AV Area Cont Eq pk 2.0 cm squared MV Area PHT 5.0 cm squared Mitral E to A Ratio 0.7 MV E' Velocity 24.0 cm/s Mitral E to MV E' Ratio 4.9 Mitral E to LV E' Lateral Ratio 4.8 Mitral E to LV E' Septal Ratio 5.1 TR Peak Velocity 203.7 cm/s TR Peak Gradient 16.6 mmHg FINDINGS Left Ventricle Normal left ventricular size and systolic function, EF69% . No regional wall motion abnormalities. Right Ventricle The right ventricle is normal in size and function. Right Atrium Possibly of normal size Left Atrium Possibly of normal size Mitral Valve Leaflet morphology could not be delineated well Aortic Valve Leaflet morphology could not be delineated well Tricuspid Valve Tricuspid valve not well visualized. Pulmonic Valve Pulmonic valve not well visualized. Pericardium Small pericardial effusion. Aorta Normal ascending aorta dimension. CONCLUSIONS Normal left ventricular size and systolic function, EF69% . No regional wall motion abnormalities. Small pericardial effusion. The valve morphology could not delineated well. Possibly normal chamber sizes. Technically difficult study because of the poor ultrasonic window. Dr Chris Sellers MD FACC (Electronically Signed) Final Date: 19 January 2021 23:09 S
[2021-01-19] MEDS: oxybutynin 5 mg Tablet PO ×2 (09:35→18:05)
[2021-01-19] MEDS: dilTIAZem 30 mg Tablet PO ×3 (09:36→20:48)
[2021-01-19] MEDS: dexamethasone 4 mg Tablet 2 MG PO (09:36)
[2021-01-19] MEDS: losartan 50 mg Tablet 100 MG PO (09:37)
[2021-01-19] MEDS: ibuprofen 800 mg tablet PO ×2 (09:38→18:05)
[2021-01-19] MEDS: potassium chloride ER 10 mEq Tablet 20 MEQ PO ×2 (09:41→18:05)
[2021-01-19] MEDS: nitroglycerin 1 gm/inch oint Pkt 0.5 INCH TOPICAL ×3 (09:43→20:47)
[2021-01-19] MEDS: FUROsemide 10 mg/mL SDV 10mL 60 MG IVP (09:44)
[2021-01-19] MEDS: clotrimazole-betamethasone cream 15gm 1 APPLIC TOPICAL (09:48)
[2021-01-19] MEDS: enoxaparin 40 mg/0.4 mL Syringe SUBCUT (09:50)
[2021-01-19 11:52] LABS: Glucose Point of Care 178 mg/dL (70-110)
[2021-01-19] MEDS: insulin lispro 100 unit/1 mL SUBCUT ×3 (11:55→22:03)
[2021-01-19 16:00] LABS: Basophils # 0.1 10^3/uL (0.0-0.1); Basophils % 0.3 %; Eosinophils % 0.2 %; Hematocrit 42.7 % (37.0-47.0); Hemoglobin 12.8 g/dL (11.5-15.3); Lymphocytes # 0.8 10^3/uL (0.8-4.8); Lymphocytes % 3.3 %; Mean Corpuscular Volume 76.7 fl (81-99); Mean Platelet Volume 9.6 fL (7.4-10.4); Monocytes # 1.1 10^3/uL (0.2-0.9); Monocytes % 4.5 %; Neutrophils # 21.44 10^3/uL (1.8-7.7); Neutrophils % 89.9 %; Nucleated Red Blood Cells % 0 %; Platelet Count 356 10^3/cmm (130-400); Red Blood Count 5.57 10^6/uL (4.1-5.3); Red Cell Distribution Width 16.1 % (12.1-15.1); White Blood Count 23.9 10^3/uL (4.0-10.0)
[2021-01-19 16:34] LABS: Procalcitonin 0.06 ng/mL (0-0.5)
[2021-01-19 16:45] LABS: Anion Gap 20.4 (5-19); Blood Urea Nitrogen 43 mg/dL (8-23); Calcium 9.2 mg/dL (8.5-10.5); Carbon Dioxide 22 mmol/L (22-29); Chloride 94 mmol/L (98-107); Glomerular Filtration Rate 37.4 mL/min (90-130); Glucose 170 mg/dL (65-115); Magnesium 2.1 mg/dL (1.7-2.3); Osmolality Calculated 291 mOsm/kg (285-295); Phosphorus 4.5 mg/dL (2.5-4.5); Potassium 3.4 mmol/L (3.5-5.1); Sodium 133 mmol/L (136-145)
--- NOTE | 2021-01-19 17:12 | P.CONIM_ITS ---
Providers/Reason For Consult Consulting Physician/Specialty*: Luigi Sellers MD/cardiology Reason for Consult*: Shortness of breath and palpitation Attending Physician: Jarvis Cormier Primary Care Provider: Piedad Sandhu MD History of Present Illness History of Present Illness Carolyn kaplan a 70 year old female is admitted to the hospital through the emergency room, where she presented with complaints of progressive shortness of breath, uncontrolled and fluctuating blood pressure and worsening of the lower extremity swelling. This patient was seen by me in the clinic couple of weeks ago for these complaints. She was having increasing shortness of breath, easy fatigability and palpitation for the last couple of months. Apparently she had COVID-19 infection in September. Most of her symptoms started since then. The EKG showed sinus tachycardia. She had an event monitor which revealed normal sinus rhythm/tachycardia with no other significant arrhythmias. She was started on Cardizem for the blood pressure and was advised increase the dose of Lasix for the leg swelling. Apparently her symptoms has not improved. She was finding it difficult to even walk across the room because of the extreme shortness of breath and fatigue. She has no significant chest pain. She may have some occasional discomfort in the chest. She had a cardiac catheterization proximally 3 years ago and was found to no significant obstructive coronary artery disease. She currently has no fever, chills or cough. 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 Currently she is treated for hypothyroidism, hypoadrenalism and hyperaldosteronism. Review of Systems Narrative: CONSTITUTIONAL: No fever or chills. EYES: No blurring of vision or other visual disturbances lately. ENT: No hoarseness of voice, auditory disturbances or sore throat. CARDIOVASCULAR: As mentioned above. RESPIRATORY: Shortness of breath as mentioned above GASTROINTESTINAL: No hematemesis or melena. GENITOURINARY: No dysuria or hematuria. INTEGUMENTARY: No skin rashes or history of skin cancer. NEURO: No transient ischemic attacks or amaurosis. PSYCHIATRIC: No history of psychosis or major depression. HEMATOLOGIC: No bleeding disorders or significant anemia. ENDOCRINE: Patient is being treated for hypothyroidism/hypoadrenalism and hyper aldosteronism MUSCULOSKELETAL: No recent joint pain or swelling. ALLERGY/IMMUNOLOGY: As mentioned above. Meds/Allergies Home Medications and Allergies Home Medications Medication Instructions Recorded Confirmed Last Taken Type losartan 100 mg tablet 100 mg PO QAM 08/08/19 01/19/21 01/17/21 History esomeprazole magnesium 40 mg 40 mg PO QAM 11/06/19 01/19/21 01/17/21 History capsule,delayed release pramipexole 0.125 mg tablet 0.25 mg PO BEDTIME tab 11/06/19 01/19/21 01/17/21 History epinephrine 0.3 mg/0.3 mL 0.3 mg IM Q10M PRN #2 ea 04/20/20 01/19/21 Unknown Rx injection, auto-injector clotrimazole-betamethasone 1 1 applic TOPICAL BID 28 Days #45 g 11/11/20 01/19/21 01/17/21 Rx %-0.05 % topical cream ibuprofen 800 mg tablet 800 mg PO BID tab 12/02/20 01/19/21 Unknown History cetirizine 10 mg tablet 10 mg PO QAM tab 01/04/21 01/19/21 01/17/21 History dexamethasone 1 mg tablet 2 mg PO QAM tab 01/04/21 01/19/21 Unknown History diltiazem HCl 30 mg tablet 30 mg PO TID #90 tab 01/04/21 01/19/21 01/17/21 Rx duloxetine 30 mg capsule,delayed 60 mg PO BEDTIME cap 01/04/21 01/19/21 01/17/21 History release potassium chloride 10 mEq 20 meq PO BID 90 Days #360 tab 01/18/21 01/19/21 01/17/21 Rx tablet,extended release Diflucan 200 mg PO Q7D 01/19/21 01/19/21 01/15/21 History Immune Vitamin C 1 tab PO DAILY 01/19/21 01/19/21 Unknown History Lasix 40 mg PO BID 01/19/21 01/19/21 01/17/21 History allopurinol 100 mg PO DAILY PRN 01/19/21 01/19/21 Unknown History levothyroxine 175 mcg PO QAM 01/19/21 01/19/21 01/17/21 History oxybutynin chloride 20 mg PO QAM 01/19/21 01/19/21 01/17/21 History semaglutide [Ozempic] 0.25 mg SUBCUT .weekly 01/19/21 01/19/21 Unknown History semaglutide [Ozempic] 0.5 mg SUBCUT .weekly 01/19/21 01/19/21 Unknown History semaglutide [Ozempic] 1 mg SUBCUT .weekly 01/19/21 01/19/21 Unknown History triamterene-hydrochlorothiazid 1 tab PO QAM 01/19/21 01/19/21 01/17/21 History Allergies Allergy/AdvReac Type Severity Reaction Status Date / Time acetaminophen [From Tylenol] Allergy ALGY-Hives Verified 01/18/21 14:11 azithromycin Allergy ALGY-Anaphy Verified 01/18/21 14:11 laxis benzocaine Allergy ALGY-Hives Verified 01/18/21 14:11 butamben [From Cetacaine] Allergy ALGY-Swell Verified 01/19/21 08:08 Lip/Tongue/Throat codeine Allergy ALGY-Hives Verified 01/19/21 08:14 fentanyl Allergy ALGY-Anaphy Verified 01/19/21 08:14 laxis hydrocodone [From Vicodin] Allergy ALGY-Hives Verified 01/19/21 08:14 hydromorphone [From Dilaudid] Allergy ADR-Vomitin Verified 01/18/21 14:11 g Iodinated Contrast Media Allergy ALGY-Anaphy Verified 01/18/21 14:11 laxis liothyronine Allergy ADR-Nausea Verified 01/18/21 14:11 meperidine [From Demerol] Allergy Unknown Verified 01/19/21 08:14 morphine Allergy ALGY-Anaphy Verified 01/18/21 14:11 laxis nitrofurantoin Allergy ALGY-Joint Verified 01/18/21 14:11 [From Macrobid] Pain oxycodone [From Percocet] Allergy ALGY-Hives Verified 01/19/21 08:14 penicillin V Allergy ALGY-Hives Verified 01/18/21 14:11 Penicillins Allergy Unknown Verified 01/19/21 08:10 Phenothiazines Allergy ALGY-Anaphy Verified 01/18/21 14:11 laxis pregabalin [From Lyrica] Allergy ADV-Weaknes Verified 01/18/21 14:11 s procaine Allergy ALGY-Hives Verified 01/18/21 14:11 prochlorperazine Allergy ALGY-Anaphy Verified 01/18/21 14:11 [From Compazine] laxis Sulfa (Sulfonamide Allergy Unknown Verified 01/18/21 14:11 Antibiotics) tetracaine [From Cetacaine] Allergy ALGY-Swell Verified 01/19/21 08:08 Lip/Tongue/Throat Current Medications Current Medications Generic Name Dose Route Start Last Admin Trade Name Jose PRN Reason Stop Dose Admin Allopurinol 100 mg 01/19/21 09:00 01/19/21 09:35 Allopurinol 100 Mg Tablet PO Not Given DAILY [facility] Betamethasone/Clotrimazole 1 applic 01/19/21 09:00 01/19/21 09:48 Clotrimazole-Betamethasone Cream 15gm TOPICAL 1 applic BID RAMIRO Administration Dexamethasone 2 mg 01/19/21 09:00 01/19/21 09:36 Dexamethasone 4 Mg Tablet PO 2 mg DAILY RAMIRO Administration Diltiazem HCl 30 mg 01/19/21 09:00 01/19/21 16:00 Diltiazem 30 Mg Tablet PO 30 mg TID RAMIRO Administration Enoxaparin Sodium 40 mg 01/19/21 10:00 01/19/21 09:50 Enoxaparin 40 Mg/0.4 Ml Syringe SUBCUT 40 mg Q24H RAMIRO Administration Furosemide 60 mg 01/19/21 09:00 01/19/21 09:44 Furosemide 10 Mg/Ml Sdv 10ml IVP 60 mg Q12H RAMIRO Administration Ibuprofen 800 mg 01/19/21 09:00 01/19/21 09:38 Ibuprofen 800 Mg Tablet PO 800 mg BID RAMIRO Administration Insulin Human Lispro 0 unit 01/19/21 12:00 01/19/21 11:55 Insulin Lispro 100 Unit/1 Ml SUBCUT 2 unit TIDWM RAMIRO Administration Protocol Losartan Potassium 100 mg 01/19/21 09:00 01/19/21 09:37 Losartan 50 Mg Tablet PO 100 mg DAILY RAMIRO Administration Nitroglycerin 0.5 inch 01/19/21 09:00 01/19/21 16:00 Nitroglycerin 1 Gm/Inch Oint Pkt TOPICAL 0.5 inch Q6H RAMIRO Administration Oxybutynin Chloride 5 mg 01/19/21 09:00 01/19/21 09:35 Oxybutynin 5 Mg Tablet PO 5 mg BID RAMIRO Administration Potassium Chloride 20 meq 01/19/21 09:00 01/19/21 09:41 Potassium Chloride Er 10 Meq Tablet PO 20 meq BID RAMIRO Administration PFSH Acute PFSH: Medical History Adrenal insufficiency Central hypothyroidism Chronic back pain Follows at pain clinic for periodic injections COVID-19 (~09/2020) Facet arthritis, degenerative, lumbar spine History of anaphylaxis History of atrial fibrillation Intermittent, has not required long-term anticoagulation or focused treatment Hyperaldosteronism Hypopituitarism Lumbar spondylolysis Obesity, morbid, BMI 50 or higher Pituitary macroadenoma with extrasellar extension Prediabetes Steroid dependence Surgical History H/O shoulder surgery History of hysterectomy History of pituitary surgery S/P insertion of spinal cord stimulator Family History Father Cancer pancreatic cancer Sister No problems noted. Mother Cancer Lung disease Grandfather Cancer Grandmother Dementia Denies family history of Diabetes CAD (coronary artery disease) Clotting disorder Chronic kidney disease (CKD) Suicide Anesthesia complication Bleeding disorder Stroke Social History Smoking and tobacco status: never smoked Second hand smoke exposure: No Alcohol intake: never Caregiver/support person: Yes Lives independently: Yes Household members: spouse Marital status: service: No Current occupational status: retired Current gender identity: Female Vitals/I&O/Wt Last Vital Signs Temp 98.0 F 01/19/21 16:00 Pulse 87 01/19/21 16:00 Resp 18 01/19/21 16:00 BP 131/73 01/19/21 16:00 Pulse Ox 96 01/19/21 16:00 Physical Exam Narrative: EXAM NARRATIVE: GENERAL: The patient is alert and oriented times three. Not in any acute distress. Morbidly obese HEENT: No significant pallor, icterus or lymphadenopathy. The pupils are reactant to light. Oral cavity: There are no mucous membrane lesions. Funduscopic examination: The disk margins appear to be sharp with no exudates or hemorrhages. NECK: Trachea appears to be central. No masses noted. No JVD or thyromegaly appreciated. No carotid bruit. RESPIRATORY: Chest is symmetrical. No intercostals muscle retraction or any accessory muscle activation. There is no chest wall tenderness. Breath sounds are heard bilaterally. Bilateral scattered expiratory wheezing BREASTS: Deferred. HEART: The PMI could not be palpated. No palpable precordial events. S1 and S2 are normal. No S3 or S4 heard. No pericardial rub or any click heard. ABDOMEN: No vessel pulsations or distention. No tenderness. No organomegaly appreciated. No abdominal bruit. Bowel sounds are normally heard. : Deferred. RECTAL: Deferred. LYMPHATIC: No lymphadenopathy noted in the neck or groin. EXTREMITIES: 2+ edema both lower extremities. MUSCULOSKELETAL: No acute joint deformities. SKIN: There are no significant scars or skin rash noted. NEUROPSYCHIATRIC: The patient is alert and oriented x3. Appears to be in a good mood. The higher functions are grossly within normal limits. No tremors or rigidity noted. Data Labs: Other Labs: Laboratory Last Values WBC 23.9 10^3/uL (4.0 -10.0) H 01/19/21 15:49 RBC 5.57 10^6/uL (4.1 -5.3) H 01/19/21 15:49 Hgb 12.8 g/dL (11.5-1 5.3) 01/19/21 15:49 Hct 42.7 % (37.0-47.0 ) 01/19/21 15:49 MCV 76.7 fl (81-99) L 01/19/21 15:49 MCH 23.0 pg (28.0-34. 0) L 01/19/21 15:49 MCHC 30.0 g/dL (30.0-3 6.0) 01/19/21 15:49 RDW 16.1 % (12.1-15.1 ) H 01/19/21 15:49 Plt Count 356 10^3/cmm (130 -400) 01/19/21 15:49 MPV 9.6 fL (7.4-10.4) 01/19/21 15:49 Neut % (Auto) 89.9 % 01/19/21 15:49 Lymph % (Auto) 3.3 % 01/19/21 15:49 Hoke % (Auto) 4.5 % 01/19/21 15:49 Eos % (Auto) 0.2 % 01/19/21 15:49 Baso % (Auto) 0.3 % 01/19/21 15:49 Neut # (Auto) 21.44 10^3/uL (1. 8-7.7) H 01/19/21 15:49 Lymph # (Auto) 0.8 10^3/uL (0.8- 4.8) 01/19/21 15:49 Hoke # (Auto) 1.1 10^3/uL (0.2- 0.9) H 01/19/21 15:49 Eos # (Auto) 0.0 10^3/uL (0.0- 0.8) 01/19/21 15:49 Baso # (Auto) 0.1 10^3/uL (0.0- 0.1) 01/19/21 15:49 Nucleated RBC % (a uto) 0 % 01/19/21 15:49 Nucleated RBCs # 0.0 /100WBC 01/19/21 15:49 D-Dimer 0.53 ug/mIFEU (0- 0.59) 01/18/21 16:28 Sodium 133 mmol/L (136-1 45) L 01/19/21 15:49 Potassium 3.4 mmol/L (3.5-5 .1) L 01/19/21 15:49 Chloride 94 mmol/L (98-107 ) L 01/19/21 15:49 Carbon Dioxide 22 mmol/L (22-29) 01/19/21 15:49 Anion Gap 20.4 (5-19) H 01/19/21 15:49 BUN 43 mg/dL (8-23) H 01/19/21 15:49 Creatinine 1.4 mg/dL (0.5-0. 9) H 01/19/21 15:49 GFR Calculation 37.4 mL/min (90-1 30) L 01/19/21 15:49 Glucose 170 mg/dL (65-115 ) H 01/19/21 15:49 POC Glucose 178 mg/dL (70-110 ) H 01/19/21 11:49 Calculated Osmolal ity 291 mOsm/kg (285- 295) 01/19/21 15:49 Lactic Acid 2.2 mmol/L (0.5-2 .2) 01/18/21 17:37 Calcium 9.2 mg/dL (8.5-10 .5) 01/19/21 15:49 Phosphorus 4.5 mg/dL (2.5-4. 5) 01/19/21 15:49 Magnesium 2.1 mg/dL (1.7-2. 3) 01/19/21 15:49 Total Bilirubin 0.4 mg/dL (0.15-1 .2) 01/18/21 16:28 AST 11 U/L (0-32) 01/18/21 16:28 ALT 23 U/L (0-33) 01/18/21 16:28 Alkaline Phosphata se 112 IU/L (35-105) H 01/18/21 16:28 Troponin T Baselin e 11 ng/L (0-10) H 01/18/21 16: Troponin T 120 Min emmonak 11.73 ng/L (0-10) H 01/18/21 19:33 Delta Troponin T 0.73 ABS# (0-10) 01/18/21 19:33 Troponin T Hi Sens 6Hr 13.90 ng/L (0-10) H 01/18/21 22:05 Troponin T Hi Sens 6Hr Delta 2.90 ng/L (0-12) 01/18/21 22:05 NT-Pro-B Natriuret Pep 64 pg/mL (0-125) 01/18/21 16:28 Total Protein 6.5 g/dL (6.6-8.7 ) L 01/18/21 16:28 Albumin 4.1 g/dL (3.5-5.2 ) 01/18/21 16:28 Globulin 2.4 g/dL (1.3-4.6 ) 01/18/21 16:28 Procalcitonin 0.06 ng/mL (0-0.5 ) 01/19/21 15:49 Urine Color Yellow (Yellow) 01/18/21 20:06 Urine Appearance Clear (CLEAR) 01/18/21 20:06 Urine pH 7 (5-7) 01/18/21 20:06 Ur Specific Gravit y 1.010 (1.005-1.0 30) 01/18/21 20:06 Urine Protein Neg (Negative) 01/18/21 20:06 Urine Glucose (UA) Norm (Normal) 01/18/21 20:06 Urine Ketones Negative (Negati ve) 01/18/21 20:06 Urine Blood 2+ (Negative) H 01/18/21 20:06 Urine Nitrate Negative (Negati ve) 01/18/21 20:06 Urine Bilirubin Neg (Negative) 01/18/21 20:06 Urine Urobilinogen Norm mg/dL (Negat pedro) 01/18/21 20:06 Ur Leukocyte Saida ase Negative (Negati ve) 01/18/21 20:06 Urine RBC 10-15 /hpf (0-2) H 01/18/21 20:06 Urine WBC 0-4 /hpf (0-5) H 01/18/21 20:06 Ur Squamous Epith Cells 0-4 /hpf (0-5) H 01/18/21 20:06 Amorphous Sediment Not Reportable 01/18/21 20:06 Urine Bacteria Trace /hpf (NONE) 01/18/21 20:06 Micro: Micro: Microbiology 01/18/21 19:33 Blood Culture - Pr eliminary Blood SPECIMEN COLLEC LC 01/18/21 17:37 Blood Culture - Pr eliminary Blood SPECIMEN COLLE LC EKG showed Sinus rhythm with a diffuse nonspecific T wave changes. Chest x-ray revealed Normal cardiac silhouette with no lung infiltrates. A&P Assessment and plan (1) SOB (shortness of breath): Most likely her shortness of breath is noncardiac in origin. She has some evidence of reactive airway disease. Her morbid obesity, recent COVID-19 infection, multiple endocrine abnormalities, etc. are playing a role. She has no evidence of congestive heart failure. Her LV ejection fraction is within normal limits. Her D-dimer is within normal limits. Possibility of her having PE may be very low. A pulmonary consult will be appropriate to further evaluate for lung pathology. Status: Acute (2) Benign essential hypertension with target blood pressure below 140/90: Currently her blood pressure is a stage II. I may start her on metoprolol 25 mg p.o. twice daily. Since the Cardizem is not helping the blood pressure, this may be discontinued Status: Acute (3) Hypokalemia: This needs to be corrected. 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 Status: Acute Qualifiers: Edema type: unspecified Qualified Code(s): R60.9 - Edema, unspecified (7) Tachycardia: The sinus tachycardia appears to be reactive. Low-dose of metoprolol may be appropriate. Status: Acute (8) Neutrophilic leukocytosis: The the etiology is not clear. This requires further work-up. Status: Acute Additional A&P Information I will be reviewing the echocardiogram. Metoprolol 25 mg p.o. twice daily. Closely monitor on telemetry. Work-up of the leukocytosis as per the primary Consider pulmonary/endocrinology consult Based on the clinical progress on the results of the above, further recommendations will be made. 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
[2021-01-19] MEDS: duloxetine 30 mg Capsule 60 MG PO (20:45)
[2021-01-19] MEDS: pramipexole 0.25 mg Tablet PO (20:46)
[2021-01-19] MEDS: metoprolol tartrate 25 mg Tablet PO (20:47)
--- NOTE | 2021-01-19 20:59 | P.PN_ITS ---
Subjective Subjective: Interval history: States she is feeling better after diuresing today. Still edema peripherally. Reports significant orthopnea. Reports at rest is not short of breath, but as soon as gets up to start walking starts becoming tachycardic, dyspneic, and tremulous. Vitals/I&O/Wt Last Vital Signs Temp 97.9 F 01/19/21 19:50 Pulse 77 01/19/21 19:50 Resp 18 01/19/21 19:50 BP 165/78 01/19/21 19:50 Pulse Ox 95 01/19/21 19:50 Physical Exam Narrative: EXAM NARRATIVE: Visited by family. Const: COMMON NORMALS: no acute distress and patient oriented x3 NUTRITIONAL APPEARANCE: obese morbidly obese HENMT: COMMON NORMALS: oropharynx normal Neck/C-Spine: COMMON NORMALS: no JVD Resp: COMMON NORMALS: normal respiratory effort and clear to auscultation bilaterally AUSCULTATION: clear to auscultation bilaterally Cardio: COMMON NORMALS: no JVD, regular rhythm, S1 normal heart sound present, S2 normal heart sound present and No murmurs present (Cardio) RHYTHM: regular rhythm HEART SOUNDS: S1 normal heart sound present and S2 normal heart sound present GI: COMMON NORMALS: Normal to inspection, nondistended, normoactive bowel s ounds present, Soft to palpation and non-tender PALPATION: Yes Soft to palpation Extremity: COMMON NORMALS: no joint enlargement and no pedal edema Neuro: COMMON NORMALS: patient oriented x3 and moves all extremities Skin: COMMON NORMALS: no rashes or lesions noted GENERAL SKIN EXAM: no rashes or lesions noted Data : 01/19/21 15:49 01/19/21 15:49 Micro: Microbiology 01/18/21 19:33 Blood Culture - Preliminary Blood NEGATIVE TO DATE 01/18/21 17:37 Blood Culture - Preliminary Blood NEGATIVE TO DATE A&P Assessment and plan (1) SOB (shortness of breath): Reports tachycardia, shortness of breath, tremulousness while only with exertion/walking. At rest discomfort. Does report orthopnea, lower extremity edema, but currently only trace edema noted. Reports she improved with diuretic/diuresis for. NT proBNP normal, although may be falsely decreased in the setting of obesity. She does wear CPAP at home for sleep apnea, with previously, perhaps this may be contributing to some of the orthopnea. Discussed with her given tachycardia, weakness with exertion, possibility of something like COVID-19 related POTS. Requesting orthostatic blood pressure. Cardiology assessment appreciated, CHF appears to be less likely. Recently started on Cardizem which she has been taking for about a week. D-dimer normal, PE rather unlikely, and lacks other symptoms. Hypopituitarism with chronic steroid. Central hypothyroidism. Check free T4. No abnormal lung sounds on examination. Chest x-ray unremarkable. At rest she is breathing well, not requiring any supplemental oxygen. In case orthostatic vital signs are unrevealing, and persistent symptoms consider additional assessment by chest CT. Follow-up TTE. Continue CPAP nightly. Consider PFT. Status: Acute (2) Tachycardia: Not tachycardic at rest. Tachycardic with exertion when standing up/walking. COVID-19 in September. POTS? Transitioned to metoprolol by cardiology. Status: Acute (3) CHF (congestive heart failure): Feels better after diuresis, although discussed with her concern is in creatinine. Less likely CHF as per cardiology assessment. Hold additional diuretic for now. Assess orthostatics. 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 Status: Chronic (7) Hyperaldosteronism: Status: Chronic (8) Central hypothyroidism: Check free T4. Status: Chronic (9) Adrenal insufficiency: Chronic adrenal insufficiency on dexamethasone. Status: Chronic (10) Prediabetes: Status: Chronic (11) History of COVID-19: Status: Chronic Additional A&P Information Pyuria: UA not particularly suggestive of UTI. Follow-up urine culture. Acute kidney injury from recent increase in diuretics versus chronic kidney disease not previously diagnosed Leukocytosis without acute foci of infection identified, may be reactive and is on steroids chronically Attestations Medical Necessity Statement*: Continue admission for assessment and management of debilitating dyspnea on exertion without clear cause in a lady with underlying hypopituitarism. 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
[2021-01-19 21:23] LABS: Glucose Point of Care 189 mg/dL (70-110)
[2021-01-20] VITALS (11 sets, daily range): BP systolic 135–188; BP diastolic 67–84; PULSE 50–80; RESP 16–24; TEMP 36.4–37.1; O2SAT 93–98
[2021-01-20] MEDS: nitroglycerin 1 gm/inch oint Pkt 0.5 INCH TOPICAL ×4 (02:56→22:01)
[2021-01-20] MEDS: pantoprazole DR 40 mg Tablet PO (05:34)
[2021-01-20] MEDS: cetirizine 10 mg Tablet PO (05:34)
[2021-01-20] MEDS: levothyroxine 175 mcg Tablet PO (05:34)
[2021-01-20 06:03] LABS: Basophils % 0.2 %; Eosinophils % 0.2 %; Hematocrit 40.9 % (37.0-47.0); Hemoglobin 12.3 g/dL (11.5-15.3); Lymphocytes # 1.6 10^3/uL (0.8-4.8); Mean Corpuscular HGB Conc 30.1 g/dL (30.0-36.0); Mean Corpuscular Hemoglobin 23.3 pg (28.0-34.0); Mean Corpuscular Volume 77.6 fl (81-99); Mean Platelet Volume 9.9 fL (7.4-10.4); Monocytes # 1.7 10^3/uL (0.2-0.9); Monocytes % 7.4 %; Neutrophils # 18.48 10^3/uL (1.8-7.7); Neutrophils % 82.7 %; Nucleated Red Blood Cells % 0 %; Platelet Count 339 10^3/cmm (130-400); Red Blood Count 5.27 10^6/uL (4.1-5.3); White Blood Count 22.3 10^3/uL (4.0-10.0)
[2021-01-20 06:36] LABS: Glucose Point of Care 125 mg/dL (70-110)
[2021-01-20 06:39] LABS: Anion Gap 16.5 (5-19); Blood Urea Nitrogen 43 mg/dL (8-23); Calcium 9.1 mg/dL (8.5-10.5); Carbon Dioxide 25 mmol/L (22-29); Chloride 98 mmol/L (98-107); Glomerular Filtration Rate 40.7 mL/min (90-130); Glucose 127 mg/dL (65-115); Osmolality Calculated 294 mOsm/kg (285-295); Potassium 3.5 mmol/L (3.5-5.1); Sodium 136 mmol/L (136-145)
[2021-01-20 06:47] LABS: Free T4 Free Thyroxine 1.24 ng/dL (0.82-1.77)
[2021-01-20] MEDS: dexamethasone 4 mg Tablet 2 MG PO (08:20)
[2021-01-20] MEDS: allopurinol 100 mg Tablet PO (08:20)
[2021-01-20] MEDS: dilTIAZem 30 mg Tablet PO ×3 (08:21→21:59)
[2021-01-20] MEDS: losartan 50 mg Tablet 100 MG PO (08:21)
[2021-01-20] MEDS: potassium chloride ER 10 mEq Tablet 20 MEQ PO ×2 (08:21→18:06)
[2021-01-20] MEDS: ibuprofen 800 mg tablet PO ×2 (08:21→18:06)
[2021-01-20] MEDS: metoprolol tartrate 25 mg Tablet PO (08:22)
[2021-01-20] MEDS: oxybutynin 5 mg Tablet PO ×2 (08:22→18:07)
[2021-01-20] MEDS: clotrimazole-betamethasone cream 15gm 1 APPLIC TOPICAL ×2 (09:02→18:06)
--- NOTE | 2021-01-20 10:39 | CT_ITS ---
WS: [id number] CT CHEST WITHOUT INTRAVENOUS CONTRAST HISTORY: dyspnea on exertion TECHNIQUE: Contiguous 5 mm axial imaging performed on the thorax. Coronal and sagittal reformats are submitted. All CT scans at [facility] use at least one of these dose optimization techniques: automated exposure control; mA and/or kV adjustment per patient size (includes targeted exams where dose is matched to clinical indication); or iterative reconstruction. CONTRAST: None DLP: 942.23 mGy.cm COMPARISON: 08/14/2013 Lungs and central airway: Lungs are clear. No residual pneumonia or pneumonitis. Linear atelectasis a t the LEFT lung base. Pleura: Normal. No pleural effusion. Heart and pericardium: Normal size heart with no pericardial effusion. Mediastinum and meri: No mediastinum or hilar adenopathy. Vessels: Mild atherosclerosis aorta. Normal size pulmonary artery. Chest wall and lower neck: No soft tissue masses. Upper abdomen: No abnormality. Osseous structures: Mild thoracic degenerative disc disease. Dorsal column stimulator electrodes are noted along the posterior thecal sac in the midthoracic region. CT/CT chest wo con [id number] IMPRESSION: 1. No residual pneumonitis or pneumonia. 2. Subsegmental atelectasis at the LEFT lung base. 3. Normal size heart.
[2021-01-20] MEDS: enoxaparin 40 mg/0.4 mL Syringe SUBCUT (10:45)
[2021-01-20 12:03] LABS: Glucose Point of Care 141 mg/dL (70-110)
[2021-01-20] MEDS: insulin lispro 100 unit/1 mL SUBCUT ×3 (12:15→22:01)
--- NOTE | 2021-01-20 12:43 | PM.PN ---
Subjective Subjective: Interval history: No chest pain or pressure. At rest is not short of breath. Gets dyspneic and feeling unwell with exertion. Symptoms resolve when she rests. Discussed with her again regarding cardiac evaluation, lower suspicion of cardiac cause of her condition, although will discuss further regarding possibility of pericarditis. Again she denies chest pain. Remains afebrile. The source of leukocytosis is not clear. Some mild microscopic hematuria noted on presentation, urine culture pending, although she reports chronic interstitial cystitis with chronic hematuria. Discussed with her consideration of possible pulmonary cause as per cardiology. Given COVID-19 the summer, possibility of some fibrotic changes, although no obvious changes noted on x-ray. Discussed obtaining additional evaluation including CT of the chest, referral for pulmonary function testing, referral for follow-up with pulmonology in office, as well as home oxygen evaluation prior to discharge. Discussed with her possibility she may be requiring oxygen on exertion which may be contributing to her symptoms while doing well at rest. She requests to discontinue cardiac diet. Discussed with her hypertension, CHF, however, requests again to discontinue. Changing to low-sodium diet. Vitals/I&O/Wt Last Vital Signs Temp 97.6 F 01/20/21 12:00 Pulse 52 L 01/20/21 12:00 Resp 20 H 01/20/21 12:00 BP 135/68 01/20/21 12:00 Pulse Ox 96 01/20/21 12:00 01/19/21 01/20/21 01/20/21 22:59 06:59 14:59 Output Total 400 / 400 Balance -400 / -400 Physical Exam Narrative: EXAM NARRATIVE: Visited by family. Const: COMMON NORMALS: no acute distress and patient oriented x3 NUTRITIONAL APPEARANCE: obese morbidly obese HENMT: COMMON NORMALS: oropharynx normal Neck/C-Spine: COMMON NORMALS: no JVD Resp: COMMON NORMALS: normal respiratory effort and clear to auscultation bilaterally AUSCULTATION: clear to auscultation bilaterally Cardio: COMMON NORMALS: no JVD, regular rhythm, S1 normal heart sound present, S2 normal heart sound present and No murmurs present (Cardio) RHYTHM: regular rhythm HEART SOUNDS: S1 normal heart sound present and S2 normal heart sound present GI: COMMON NORMALS: Normal to inspection, nondistended, normoactive bowel sounds present, Soft to palpation and non-tender PALPATION: Yes Soft to palpation Extremity: COMMON NORMALS: no joint enlargement GENERAL: Yes edema (1+ ankle) Neuro: COMMON NORMALS: patient oriented x3 and moves all extremities Skin: COMMON NORMALS: no rashes or lesions noted GENERAL SKIN EXAM: no rashes or lesions noted Data : 01/20/21 05:24 01/20/21 05:24 Micro: Microbiology 01/18/21 20:06 Urine Culture - Final Urine,Clean Catch 01/18/21 19:33 Blood Culture - Preliminary Blood NEGATIVE TO DATE 01/18/21 17:37 Blood Culture - Preliminary Blood NEGATIVE TO DATE A&P Assessment and plan (1) SOB (shortness of breath): Discussed with her and with cardiology. Suspicion is less likely that this is cardiac in etiology. Some consideration given to pericarditis given small pericardial effusion, although possibly less likely given lack of other symptoms. No chest pain. No EKG changes. Unremarkable troponin. Unclear etiology of leukocytosis. Prescription with cardiology will request for ESR, CRP. She is on chronic steroid with Decadron 2 mg p.o. daily. We are also pursuing additional evaluation with CT of the chest, as per discussion with referral for PFT, follow-up with pulmonology in office, and predischarge home oxygen evaluation, as she may be requiring oxygen with exertion, causing her symptoms, while doing well at rest. Requested also additional assessment by orthostatics today, standing for at least 3 minutes. Heart rate did not appear to increase significantly from 52-62, although is also on metoprolol so difficult to interpret, now with slower heart rates in the 50s-60s compared to admission. Systolic blood pressure went from 154-148. Discussed with her some worsening renal function, although today is a little bit better after we held additional IV Lasix. She requests resume oral Lasix which she takes twice daily at home. Reports tachycardia, shortness of breath, tremulousness while only with exertion/walking. At rest discomfort. Does report orthopnea, lower extremity edema, but currently only trace edema noted. Reports she improved with diuretic/diuresis for. NT proBNP normal, although may be falsely decreased in the setting of obesity. She does wear CPAP at home for sleep apnea, with previously, perhaps this may be contributing to some of the orthopnea. Discussed with her also possibility of something like COVID-19 related POTS. Discussed consideration of follow-up with specialist clinic for protracted post Covid symptoms at [facility] or other facility where such clinic is available. Recently started on Cardizem which she has been taking for about a week. Off Cardizem. Currently on metoprolol. D-dimer normal, PE rather unlikely, and lacks other symptoms. Hypopituitarism with chronic steroid. Central hypothyroidism. Normal free T4. No abnormal lung sounds on examination. Chest x-ray unremarkable. At rest she is breathing well, not requiring any supplemental oxygen. TTE with small pericardial effusion. Normal EF. Continue CPAP nightly. Status: Acute (2) Tachycardia: Not tachycardic at rest. Tachycardic with exertion when standing up/walking. COVID-19 in September. POTS? Transitioned to metoprolol by cardiology. Not tachycardic on orthostatic assessment while on metoprolol. Status: Acute (3) CHF (congestive heart failure): Feels better after diuresis, although discussed with her concern is in creatinine. Less likely CHF as per cardiology assessment. Hold additional IV diuretic. She requests to restart her home oral diuretic. 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 Status: Chronic (7) Hyperaldosteronism: Status: Chronic (8) Central hypothyroidism: Check free T4. Status: Chronic (9) Adrenal insufficiency: Chronic adrenal insufficiency on dexamethasone. Status: Chronic (10) Prediabetes: Status: Chronic (11) History of COVID-19: Status: Chronic Additional A&P Information Pyuria: UA not particularly suggestive of UTI. Follow-up urine culture. Acute kidney injury from recent increase in diuretics versus chronic kidney disease not previously diagnosed Leukocytosis without acute foci of infection identified, may be reactive and is on steroids chronically Attestations Medical Necessity Statement*: Continue admission for work-up of persistent symptoms of severely limiting dyspnea on exertion of unclear etiology limiting activity. 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
[2021-01-20 15:47] LABS: C Reactive Protein 16.1 mg/L (0.0-4.9)
[2021-01-20 17:29] LABS: Glucose Point of Care 177 mg/dL (70-110)
--- NOTE | 2021-01-20 19:08 | PM.PN ---
Subjective Subjective: Interval history: The patient is feeling little better. Her blood pressure and the heart rate seem to be responding to metoprolol. She was found to have elevated CRP. Her white cell count is slowly coming down. Apparently she has a chronic white cell count elevation possibly from the steroids. Denies any chest pain or chest tightness. Had echocardiogram revealed a small pericardial effusion. She has no fever or chills. No significant cough. Medications: Reviewed: Yes Medication Review Details: Current Medications Albuterol Sulfate (Albuterol 8 Gm Mdi) 2 puff INHALATION Q4H.RESPIRATORY PRN PRN Reason: SHORTNESS OF BREATH Allopurinol (Allopurinol 100 Mg Tablet) 100 mg PO DAILY [facility] Last Admin: 01/20/21 08:20 Dose: 100 mg Documented by: Betamethasone/Clotrimazole (Clotrimazole-Betamethasone Cream 15gm) 1 applic TOPICAL BID [facility] Last Admin: 01/20/21 18:06 Dose: 1 applic Documented by: Cetirizine HCl (Cetirizine 10 Mg Tablet) 10 mg PO QAM [facility] Last Admin: 01/20/21 05:34 Dose: 10 mg Documented by: Denture Adhesive (Fixodent 39 Gm Tube) 1 applic DENTAL PRN PRN PRN Reason: denture adhesive Dexamethasone (Dexamethasone 4 Mg Tablet) 2 mg PO DAILY [facility] Last Admin: 01/20/21 08:20 Dose: 2 mg Documented by: Diltiazem HCl (Diltiazem 30 Mg Tablet) 30 mg PO TID [facility] Last Admin: 01/20/21 15:58 Dose: 30 mg Documented by: Duloxetine HCl (Duloxetine 30 Mg Capsule) 60 mg PO BEDTIME [facility] Last Admin: 01/19/21 20:45 Dose: 60 mg Documented by: Enoxaparin Sodium (Enoxaparin 40 Mg/0.4 Ml Syringe) 40 mg SUBCUT Q24H [facility] Last Admin: 01/20/21 10:45 Dose: 40 mg Documented by: Furosemide (Furosemide 20 Mg Tablet) 40 mg PO BID [facility] Ibuprofen (Ibuprofen 800 Mg Tablet) 800 mg PO BID [facility] Last Admin: 01/20/21 18:06 Dose: 800 mg Documented by: Insulin Human Lispro (Insulin Lispro 100 Unit/1 Ml) 0 unit SUBCUT BEDTIME [facility]; Protocol Last Admin: 01/19/21 22:03 Dose: 1 unit Documented by: Insulin Human Lispro (Insulin Lispro 100 Unit/1 Ml) 0 unit SUBCUT TIDWM [facility]; Protocol Last Admin: 01/20/21 18:06 Dose: 2 unit Documented by: Levothyroxine Sodium (Levothyroxine 175 Mcg Tablet) 175 mcg PO QAM [facility] Last Admin: 01/20/21 05:34 Dose: 175 mcg Documented by: Losartan Potassium (Losartan 50 Mg Tablet) 100 mg PO DAILY [facility] Last Admin: 01/20/21 08:21 Dose: 100 mg Documented by: Metoprolol Tartrate (Metoprolol Tartrate 25 Mg Tablet) 25 mg PO BID@0900,2100 [facility] Last Admin: 01/20/21 08:22 Dose: 25 mg Documented by: Nitroglycerin (Nitroglycerin 1 Gm/Inch Oint Pkt) 0.5 inch TOPICAL Q6H [facility] Last Admin: 01/20/21 15:58 Dose: 0.5 inch Documented by: Ondansetron HCl (Ondansetron 2 Mg/Ml Sdv 2 Ml) 4 mg IVP Q8H PRN PRN Reason: vomiting, or N/V if npo Oxybutynin Chloride (Oxybutynin 5 Mg Tablet) 5 mg PO BID [facility] Last Admin: 01/20/21 18:07 Dose: 5 mg Documented by: Pantoprazole Sodium (Pantoprazole Dr 40 Mg Tablet) 40 mg PO QAM [facility] Last Admin: 01/20/21 05:34 Dose: 40 mg Documented by: Potassium Chloride (Potassium Chloride Er 10 Meq Tablet) 20 meq PO BID [facility] Last Admin: 01/20/21 18:06 Dose: 20 meq Documented by: Pramipexole Dihydrochloride (Pramipexole 0.25 Mg Tablet) 0.25 mg PO BEDTIME [facility] Last Admin: 01/19/21 20:46 Dose: 0.25 mg Documented by: Vitals/I&O/Wt Last Vital Signs Temp 98.8 F 01/20/21 16:00 Pulse 64 01/20/21 16:00 Resp 24 H 01/20/21 16:00 BP 151/77 01/20/21 16:00 Pulse Ox 96 01/20/21 16:00 01/20/21 01/20/21 01/20/21 06:59 14:59 22:59 Intake Total 600 / 600 Output Total 400 / 400 Balance -400 / -400 600 / 600 Physical Exam Narrative: EXAM NARRATIVE: GENERAL: The patient is alert and oriented times three. Not in any acute distress. Morbidly obese HEENT: No significant pallor, icterus or lymphadenopathy. The pupils are symmetrical oral cavity: There are no mucous membrane lesions. NECK: Trachea appears to be central. No masses noted. No JVD or thyromegaly appreciated. No carotid bruit. RESPIRATORY: Chest is symmetrical. No intercostals muscle retraction or any accessory muscle activation. There is no chest wall tenderness. Breath sounds are heard bilaterally. Bilateral scattered expiratory wheezing BREASTS: Deferred. HEART: The PMI could not be palpated. No palpable precordial events. S1 and S2 are normal. No S3 or S4 heard. No pericardial rub or any click heard. ABDOMEN: Abdomen is obese. No vessel pulsations or distention. No tenderness. No organomegaly appreciated. No abdominal bruit. Bowel sounds are normally heard. : Deferred. RECTAL: Deferred. LYMPHATIC: No lymphadenopathy noted in the neck or groin. EXTREMITIES: 1 to 2+ edema both lower extremities. MUSCULOSKELETAL: No acute joint deformities. SKIN: There are no significant scars or skin rash noted. NEUROPSYCHIATRIC: The patient is alert and oriented x3. Appears to be in a good mood. The higher functions are grossly within normal limits. No tremors or rigidity noted. Data : 01/21/21 06:22 01/21/21 06:22 Other Labs: Laboratory Last Values WBC 22.3 10^3/uL (4.0-10.0) H 01/20/21 05:24 RBC 5.27 10^6/uL (4.1-5.3) 01/20/21 05:24 Hgb 12.3 g/dL (11.5-15.3) 01/20/21 05:24 Hct 40.9 % (37.0-47.0) 01/20/21 05:24 MCV 77.6 fl (81-99) L 01/20/21 05:24 MCH 23.3 pg (28.0-34.0) L 01/20/21 05:24 MCHC 30.1 g/dL (30.0-36.0) 01/20/21 05:24 RDW 16.0 % (12.1-15.1) H 01/20/21 05:24 Plt Count 339 10^3/cmm (130-400) 01/20/21 05:24 MPV 9.9 fL (7.4-10.4) 01/20/21 05:24 Neut % (Auto) 82.7 % 01/20/21 05:24 Lymph % (Auto) 7.0 % 01/20/21 05:24 [place] % (Auto) 7.4 % 01/20/21 05:24 Eos % (Auto) 0.2 % 01/20/21 05:24 Baso % (Auto) 0.2 % 01/20/21 05:24 Neut # (Auto) 18.48 10^3/uL (1.8-7.7) H 01/20/21 05:24 Lymph # (Auto) 1.6 10^3/uL (0.8-4.8) 01/20/21 05:24 [place] # (Auto) 1.7 10^3/uL (0.2-0.9) H 01/20/21 05:24 Eos # (Auto) 0.0 10^3/uL (0.0-0.8) 01/20/21 05:24 Baso # (Auto) 0.0 10^3/uL (0.0-0.1) 01/20/21 05:24 Nucleated RBC % (auto) 0 % 01/20/21 05:24 Nucleated RBCs # 0.0 /100WBC 01/20/21 05:24 D-Dimer 0.53 ug/mIFEU (0-0.59) 01/18/21 16:28 Sodium 136 mmol/L (136-145) 01/20/21 05:24 Potassium 3.5 mmol/L (3.5-5.1) 01/20/21 05:24 Chloride 98 mmol/L (98-107) 01/20/21 05:24 Carbon Dioxide 25 mmol/L (22-29) 01/20/21 05:24 Anion Gap 16.5 (5-19) 01/20/21 05:24 BUN 43 mg/dL (8-23) H 01/20/21 05:24 Creatinine 1.3 mg/dL (0.5-0.9) H 01/20/21 05:24 GFR Calculation 40.7 mL/min (90-130) L 01/20/21 05:24 Glucose 127 mg/dL (65-115) H 01/20/21 05:24 POC Glucose 177 mg/dL (70-110) H 01/20/21 16:50 Calculated Osmolality 294 mOsm/kg (285-295) 01/20/21 05:24 Lactic Acid 2.2 mmol/L (0.5-2.2) 01/18/21 17:37 Calcium 9.1 mg/dL (8.5-10.5) 01/20/21 05:24 Phosphorus 4.5 mg/dL (2.5-4.5) 01/19/21 15:49 Magnesium 2.1 mg/dL (1.7-2.3) 01/19/21 15:49 Total Bilirubin 0.4 mg/dL (0.15-1.2) 01/18/21 16:28 AST 11 U/L (0-32) 01/18/21 16:28 ALT 23 U/L (0-33) 01/18/21 16:28 Alkaline Phosphatase 112 IU/L (35-105) H 01/18/21 16:28 Troponin T Baseline 11 ng/L (0-10) H 01/18/21 16:28 Troponin T 120 Minute 11.73 ng/L (0-10) H 01/18/21 19:33 Delta Troponin T 0.73 ABS# (0-10) 01/18/21 19:33 Troponin T Hi Sens 6Hr 13.90 ng/L (0-10) H 01/18/21 22:05 Troponin T Hi Sens 6Hr Delta 2.90 ng/L (0-12) 01/18/21 22:05 C-Reactive Protein 16.1 mg/L (0.0-4.9) H 01/20/21 05:24 NT-Pro-B Natriuret Pep 64 pg/mL (0-125) 01/18/21 16:28 Total Protein 6.5 g/dL (6.6-8.7) L 01/18/21 16:28 Albumin 4.1 g/dL (3.5-5.2) 01/18/21 16:28 Globulin 2.4 g/dL (1.3-4.6) 01/18/21 16:28 Procalcitonin 0.06 ng/mL (0-0.5) 01/19/21 15:49 Free T4 1.24 ng/dL (0.82-1.77) 01/20/21 05:24 Urine Color Yellow (Yellow) 01/18/21 20:06 Urine Appearance Clear (CLEAR) 01/18/21 20:06 Urine pH 7 (5-7) 01/18/21 20:06 Ur Specific [place] 1.010 (1.005-1.030) 01/18/21 20:06 Urine Protein Neg (Negative) 01/18/21 20:06 Urine Glucose (UA) Norm (Normal) 01/18/21 20:06 Urine Ketones Negative (Negative) 01/18/21 20:06 Urine Blood 2+ (Negative) H 01/18/21 20:06 Urine Nitrate Negative (Negative) 01/18/21 20:06 Urine Bilirubin Neg (Negative) 01/18/21 20:06 Urine Urobilinogen Norm mg/dL (Negative) 01/18/21 20:06 Ur Leukocyte Esterase Negative (Negative) 01/18/21 20:06 Urine RBC 10-15 /hpf (0-2) H 01/18/21 20:06 Urine WBC 0-4 /hpf (0-5) H 01/18/21 20:06 Ur Squamous Epith Cells 0-4 /hpf (0-5) H 01/18/21 20:06 Amorphous Sediment Not Reportable 01/18/21 20:06 Urine Bacteria Trace /hpf (NONE) 01/18/21 20:06 Micro: Microbiology 01/18/21 20:06 Urine Culture - Final Urine,Clean Catch 01/18/21 19:33 Blood Culture - Preliminary Blood NEGATIVE TO DATE 01/18/21 17:37 Blood Culture - Preliminary Blood NEGATIVE TO DATE A&P Assessment and plan (1) SOB (shortness of breath): Still the etiology of the shortness of breath is not clear. Patient is scheduled to have a home O2 evaluation in the morning. She may get a PFT as an outpatient. She had a CT of the chest which revealed some features of atelectasis. Otherwise unremarkable. Status: Acute (2) Benign essential hypertension with target blood pressure below 140/90: Currently her blood pressure is a stage II. I may start her on metoprolol 25 mg p.o. twice daily. Since the Cardizem is not helping the blood pressure, this may be discontinued Status: Acute (3) Hypokalemia: This needs to be corrected. 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 Status: Acute Qualifiers: Edema type: unspecified Qualified Code(s): R60.9 - Edema, unspecified (7) Tachycardia: Since the patient is responding to the metoprolol, and also since the blood pressure still remaining high, I may go up on the metoprolol to 50 mg p.o. twice daily. Status: Acute (8) Neutrophilic leukocytosis: The the etiology is not clear. This requires further work-up. Status: Acute Additional A&P Information As per request from endocrinology, I may order serum cortisol-both free and random, ACTH, aldosterone level. 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
[2021-01-20 20:51] LABS: Calcium 9.4 mg/dL (8.5-10.5)
[2021-01-20 20:57] LABS: Parathyroid Hormone 59.8 pg/mL (15-65)
[2021-01-20 21:20] LABS: Glucose Point of Care 191 mg/dL (70-110)
[2021-01-20] MEDS: duloxetine 30 mg Capsule 60 MG PO (21:59)
[2021-01-20] MEDS: metoprolol tartrate 50 mg Tablet PO (22:00)
[2021-01-20] MEDS: pramipexole 0.25 mg Tablet PO (22:00)
[2021-01-20 23:47] LABS: Cortisol Random 0.32 ug/dL (2.47-19.5)
[2021-01-21 04:00] VITALS: BP 147/80; PULSE 62; RESP 17; TEMP 36.7; O2SAT 94
[2021-01-21] MEDS: nitroglycerin 1 gm/inch oint Pkt 0.5 INCH TOPICAL ×2 (04:42→08:15)
[2021-01-21] MEDS: levothyroxine 175 mcg Tablet PO (05:52)
[2021-01-21] MEDS: pantoprazole DR 40 mg Tablet PO (05:52)
[2021-01-21] MEDS: cetirizine 10 mg Tablet PO (05:52)
[2021-01-21 06:35] LABS: Basophils % 0.2 %; Eosinophils # 0.1 10^3/uL (0.0-0.8); Eosinophils % 0.4 %; Hemoglobin 11.8 g/dL (11.5-15.3); Lymphocytes # 1.9 10^3/uL (0.8-4.8); Lymphocytes % 9.1 %; Mean Corpuscular HGB Conc 29.5 g/dL (30.0-36.0); Mean Corpuscular Hemoglobin 23.4 pg (28.0-34.0); Mean Corpuscular Volume 79.2 fl (81-99); Monocytes # 1.9 10^3/uL (0.2-0.9); Neutrophils # 16.83 10^3/uL (1.8-7.7); Neutrophils % 78.8 %; Nucleated Red Blood Cells % 0 %; Platelet Count 306 10^3/cmm (130-400); Red Blood Count 5.05 10^6/uL (4.1-5.3); Red Cell Distribution Width 16.3 % (12.1-15.1); White Blood Count 21.4 10^3/uL (4.0-10.0)
[2021-01-21] MEDS: FUROsemide 20 mg Tablet 40 MG PO (06:46)
[2021-01-21 06:49] LABS: Glucose Point of Care 272 mg/dL (70-110)
[2021-01-21 07:01] LABS: Alanine Aminotransferase 20 U/L (0-33); Albumin Level 3.3 g/dL (3.5-5.2); Alkaline Phosphatase 93 IU/L (35-105); Anion Gap 13.7 (5-19); Aspartate Amino Transferase 9 U/L (0-32); Blood Urea Nitrogen 40 mg/dL (8-23); Calcium 9.1 mg/dL (8.5-10.5); Carbon Dioxide 24 mmol/L (22-29); Chloride 100 mmol/L (98-107); Globulin 2.2 g/dL (1.3-4.6); Glomerular Filtration Rate 49.4 mL/min (90-130); Glucose 130 mg/dL (65-115); Osmolality Calculated 290 mOsm/kg (285-295); Potassium 3.7 mmol/L (3.5-5.1); Sodium 134 mmol/L (136-145); Total Bilirubin 0.2 mg/dL (0.15-1.2); Total Protein 5.5 g/dL (6.6-8.7)
[2021-01-21 07:54] VITALS: BP 148/76; PULSE 52; RESP 24; TEMP 36.6; O2SAT 98
[2021-01-21] MEDS: losartan 50 mg Tablet 100 MG PO (08:14)
[2021-01-21] MEDS: dilTIAZem 30 mg Tablet PO (08:14)
[2021-01-21] MEDS: dexamethasone 4 mg Tablet 2 MG PO (08:14)
[2021-01-21] MEDS: allopurinol 100 mg Tablet PO (08:14)
[2021-01-21] MEDS: potassium chloride ER 10 mEq Tablet 20 MEQ PO (08:15)
[2021-01-21] MEDS: metoprolol tartrate 50 mg Tablet PO (08:15)
[2021-01-21] MEDS: clotrimazole-betamethasone cream 15gm 1 APPLIC TOPICAL (08:15)
[2021-01-21] MEDS: ibuprofen 800 mg tablet PO (08:15)
[2021-01-21] MEDS: oxybutynin 5 mg Tablet PO (08:15)
[2021-01-21] MEDS: insulin lispro 100 unit/1 mL SUBCUT ×2 (08:16→12:22)
--- NOTE | 2021-01-21 08:20 | P.PN_ITS ---
Subjective Subjective: Interval history: Patient is seems to be feeling better. Blood pressure slowly getting under control. Telemetry shows episodes of bradycardia with a heart rate of 40s and 50s. Currently she is on metoprolol 50 mg p.o. twice daily for Medications: Reviewed: Yes Medication Review Details: Current Medications Albuterol Sulfate (Albuterol 8 Gm Mdi) 2 puff INHALATION Q4H.RESPIRATORY PRN PRN Reason: SHORTNESS OF BREATH Allopurinol (Allopurinol 100 Mg Tablet) 100 mg PO DAILY [facility] Last Admin: 01/20/21 08:20 Dose: 100 mg Documented by: Betamethasone/Clotrimazole (Clotrimazole-Betamethasone Cream 15gm) 1 applic TOPICAL BID [facility] Last Admin: 01/20/21 18:06 Dose: 1 applic Documented by: Cetirizine HCl (Cetirizine 10 Mg Tablet) 10 mg PO QAM [facility] Last Admin: 01/21/21 05:52 Dose: 10 mg Documented by: Denture Adhesive (Fixodent 39 Gm Tube) 1 applic DENTAL PRN PRN PRN Reason: denture adhesive Dexamethasone (Dexamethasone 4 Mg Tablet) 2 mg PO DAILY [facility] Last Admin: 01/20/21 08:20 Dose: 2 mg Documented by: Diltiazem HCl (Diltiazem 30 Mg Tablet) 30 mg PO TID [facility] Last Admin: 01/20/21 21:59 Dose: 30 mg Documented by: Duloxetine HCl (Duloxetine 30 Mg Capsule) 60 mg PO BEDTIME [facility] Last Admin: 01/20/21 21:59 Dose: 60 mg Documented by: Enoxaparin Sodium (Enoxaparin 40 Mg/0.4 Ml Syringe) 40 mg SUBCUT Q24H [facility] Last Admin: 01/20/21 10:45 Dose: 40 mg Documented by: Furosemide (Furosemide 20 Mg Tablet) 40 mg PO BID [facility] Last Admin: 01/21/21 06:46 Dose: 40 mg Documented by: Ibuprofen (Ibuprofen 800 Mg Tablet) 800 mg PO BID [facility] Last Admin: 01/20/21 18:06 Dose: 800 mg Documented by: Insulin Human Lispro (Insulin Lispro 100 Unit/1 Ml) 0 unit SUBCUT BEDTIME [facility]; Protocol Last Admin: 01/20/21 22:01 Dose: 2 unit Documented by: Insulin Human Lispro (Insulin Lispro 100 Unit/1 Ml) 0 unit SUBCUT TIDWM [facility]; Protocol Last Admin: 01/20/21 18:06 Dose: 2 unit Documented by: Levothyroxine Sodium (Levothyroxine 175 Mcg Tablet) 175 mcg PO QAM [facility] Last Admin: 01/21/21 05:52 Dose: 175 mcg Documented by: Losartan Potassium (Losartan 50 Mg Tablet) 100 mg PO DAILY [facility] Last Admin: 01/20/21 08:21 Dose: 100 mg Documented by: Metoprolol Tartrate (Metoprolol Tartrate 50 Mg Tablet) 50 mg PO BID@0900,2100 [facility] Last Admin: 01/20/21 22:00 Dose: 50 mg Documented by: Nitroglycerin (Nitroglycerin 1 Gm/Inch Oint Pkt) 0.5 inch TOPICAL Q6H [facility] Last Admin: 01/21/21 04:42 Dose: 0.5 inch Documented by: Ondansetron HCl (Ondansetron 2 Mg/Ml Sdv 2 Ml) 4 mg IVP Q8H PRN PRN Reason: vomiting, or N/V if npo Oxybutynin Chloride (Oxybutynin 5 Mg Tablet) 5 mg PO BID [facility] Last Admin: 01/20/21 18:07 Dose: 5 mg Documented by: Pantoprazole Sodium (Pantoprazole Dr 40 Mg Tablet) 40 mg PO QAM [facility] Last Admin: 01/21/21 05:52 Dose: 40 mg Documented by: Potassium Chloride (Potassium Chloride Er 10 Meq Tablet) 20 meq PO BID [facility] Last Admin: 01/20/21 18:06 Dose: 20 meq Documented by: Pramipexole Dihydrochloride (Pramipexole 0.25 Mg Tablet) 0.25 mg PO BEDTIME [facility] Last Admin: 01/20/21 22:00 Dose: 0.25 mg Documented by: Vitals/I&O/Wt Last Vital Signs Temp 97.9 F 01/21/21 07:54 Pulse 52 L 01/21/21 07:54 Resp 24 H 01/21/21 07:54 BP 148/76 01/21/21 07:54 Pulse Ox 98 01/21/21 07:54 01/20/21 01/21/21 01/21/21 22:59 06:59 14:59 Intake Total 620 / 1220 Output Total 600 / 600 Balance 20 / 620 Physical Exam Narrative: EXAM NARRATIVE: GENERAL: The patient is alert and oriented times three. Not in any acute distress. Morbidly obese HEENT: No significant pallor, icterus or lymphadenopathy. The pupils are symmetrical oral cavity: There are no mucous membrane lesions. NECK: Trachea appears to be central. No masses noted. No JVD or thyromegaly a ppreciated. No carotid bruit. RESPIRATORY: Chest is symmetrical. No intercostals muscle retraction or any accessory muscle activation. There is no chest wall tenderness. Breath sounds are heard bilaterally. Bilateral scattered expiratory wheezing BREASTS: Deferred. HEART: The PMI could not be palpated. No palpable precordial events. S1 and S2 are normal. No S3 or S4 heard. No pericardial rub or any click heard. ABDOMEN: Abdomen is obese. No vessel pulsations or distention. No tenderness. No organomegaly appreciated. No abdominal bruit. Bowel sounds are normally heard. : Deferred. RECTAL: Deferred. LYMPHATIC: No lymphadenopathy noted in the neck or groin. EXTREMITIES: 1 to 2+ edema both lower extremities. MUSCULOSKELETAL: No acute joint deformities. SKIN: There are no significant scars or skin rash noted. NEUROPSYCHIATRIC: The patient is alert and oriented x3. Appears to be in a good mood. The higher functions are grossly within normal limits. No tremors or rigidity noted. Data : 01/21/21 06:22 01/21/21 06:22 Other Labs: Laboratory Last Values WBC 21.4 10^3/uL (4.0-10.0) H 01/21/21 06:22 RBC 5.05 10^6/uL (4.1-5.3) 01/21/21 06:22 Hgb 11.8 g/dL (11.5-15.3) 01/21/21 06:22 Hct 40.0 % (37.0-47.0) 01/21/21 06:22 MCV 79.2 fl (81-99) L 01/21/21 06:22 MCH 23.4 pg (28.0-34.0) L 01/21/21 06:22 MCHC 29.5 g/dL (30.0-36.0) L 01/21/21 06:22 RDW 16.3 % (12.1-15.1) H 01/21/21 06:22 Plt Count 306 10^3/cmm (130-400) 01/21/21 06:22 MPV 10.0 fL (7.4-10.4) 01/21/21 06:22 Neut % (Auto) 78.8 % 01/21/21 06:22 Lymph % (Auto) 9.1 % 01/21/21 06:22 Scott % (Auto) 9.0 % 01/21/21 06:22 Eos % (Auto) 0.4 % 01/21/21 06:22 Baso % (Auto) 0.2 % 01/21/21 06:22 Neut # (Auto) 16.83 10^3/uL (1.8-7.7) H 01/21/21 06:22 Lymph # (Auto) 1.9 10^3/uL (0.8-4.8) 01/21/21 06:22 Scott # (Auto) 1.9 10^3/uL (0.2-0.9) H 01/21/21 06:22 Eos # (Auto) 0.1 10^3/uL (0.0-0.8) 01/21/21 06:22 Baso # (Auto) 0.0 10^3/uL (0.0-0.1) 01/21/21 06:22 Nucleated RBC % (auto) 0 % 01/21/21 06:22 Nucleated RBCs # 0.0 /100WBC 01/21/21 06:22 D-Dimer 0.53 ug/mIFEU (0-0.59) 01/18/21 16:28 Sodium 134 mmol/L (136-145) L 01/21/21 06:22 Potassium 3.7 mmol/L (3.5-5.1) 01/21/21 06:22 Chloride 100 mmol/L (98-107) 01/21/21 06:22 Carbon Dioxide 24 mmol/L (22-29) 01/21/21 06:22 Anion Gap 13.7 (5-19) 01/21/21 06:22 BUN 40 mg/dL (8-23) H 01/21/21 06:22 Creatinine 1.1 mg/dL (0.5-0.9) H 01/21/21 06:22 GFR Calculation 49.4 mL/min (90-130) L 01/21/21 06:22 Glucose 130 mg/dL (65-115) H 01/21/21 06:22 POC Glucose 272 mg/dL (70-110) H 01/21/21 06:30 Calculated Osmolality 290 mOsm/kg (285-295) 01/21/21 06:22 Lactic Acid 2.2 mmol/L (0.5-2.2) 01/18/21 17:37 Calcium 9.1 mg/dL (8.5-10.5) 01/21/21 06:22 Phosphorus 4.5 mg/dL (2.5-4.5) 01/19/21 15:49 Magnesium 2.1 mg/dL (1.7-2.3) 01/19/21 15:49 Total Bilirubin 0.2 mg/dL (0.15-1.2) 01/21/21 06:22 AST 9 U/L (0-32) 01/21/21 06:22 ALT 20 U/L (0-33) 01/21/21 06:22 Alkaline Phosphatase 93 IU/L (35-105) 01/21/21 06:22 Troponin T Baseline 11 ng/L (0-10) H 01/18/21 16:28 Troponin T 120 Minute 11.73 ng/L (0-10) H 01/18/21 19:33 Delta Troponin T 0.73 ABS# (0-10) 01/18/21 19:33 Troponin T Hi Sens 6Hr 13.90 ng/L (0-10) H 01/18/21 22:05 Troponin T Hi Sens 6Hr Delta 2.90 ng/L (0-12) 01/18/21 22:05 C-Reactive Protein 16.1 mg/L (0.0-4.9) H 01/20/21 05:24 NT-Pro-B Natriuret Pep 64 pg/mL (0-125) 01/18/21 16:28 Total Protein 5.5 g/dL (6.6-8.7) L 01/21/21 06:22 Albumin 3.3 g/dL (3.5-5.2) L 01/21/21 06:22 Globulin 2.2 g/dL (1.3-4.6) 01/21/21 06:22 Procalcitonin 0.06 ng/mL (0-0.5) 01/19/21 15:49 Free T4 1.24 ng/dL (0.82-1.77) 01/20/21 05:24 PTH Intact 59.8 pg/mL (15-65) 01/20/21 20:07 Calcium (PTH Intact) 9.4 mg/dL (8.5-10.5) 01/20/21 20:07 Random Cortisol 0.32 ug/dL (2.47-19.5) L 01/20/21 20:07 Urine Color Yellow (Yellow) 01/18/21 20:06 Urine Appearance Clear (CLEAR) 01/18/21 20:06 Urine pH 7 (5-7) 01/18/21 20:06 Ur Specific [place] 1.010 (1.005-1.030) 01/18/21 20:06 Urine Protein Neg (Negative) 01/18/21 20:06 Urine Glucose (UA) Norm (Normal) 01/18/21 20:06 Urine Ketones Negative (Negative) 01/18/21 20:06 Urine Blood 2+ (Negative) H 01/18/21 20:06 Urine Nitrate Negative (Negative) 01/18/21 20:06 Urine Bilirubin Neg (Negative) 01/18/21 20:06 Urine Urobilinogen Norm mg/dL (Negative) 01/18/21 20:06 Ur Leukocyte Esterase Negative (Negative) 01/18/21 20:06 Urine RBC 10-15 /hpf (0-2) H 01/18/21 20:06 Urine WBC 0-4 /hpf (0-5) H 01/18/21 20:06 Ur Squamous Epith Cells 0-4 /hpf (0-5) H 01/18/21 20:06 Amorphous Sediment Not Reportable 01/18/21 20:06 Urine Bacteria Trace /hpf (NONE) 01/18/21 20:06 Micro: Microbiology 01/18/21 20:06 Urine Culture - Final Urine,Clean Catch A&P Assessment and plan (1) SOB (shortness of breath): Patient qualified for home O2. She has exercise desaturation. Status: Acute (2) Benign essential hypertension with target blood pressure below 140/90: Currently her blood pressure is a stage II. Because of bradycardia, I may cut back on the dose of metoprolol to 25 mg p.o. twice daily. I also may start her on amlodipine 5 mg p.o. daily for better control of the blood pressure. Status: Acute (3) Hypokalemia: This needs to be corrected. 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 Status: Acute Qualifiers: Edema type: unspecified Qualified Code(s): R60.9 - Edema, unspecified (7) Tachycardia: Significantly improved since starting the metoprolol. Cut back on the dose to 25 mg p.o. twice daily because of the bradycardia Status: Acute (8) Neutrophilic leukocytosis: The the etiology is not clear. Most likely related to the steroid use. Status: Acute Additional A&P Information The patient's her cardiovascular status seems to be stable, she may go home on the current medication. Will be seen at [facility] by the nurse practitioner. I may see her in the office in 1 month Attestations Medical Necessity Statement*: Possible discharge home today Coding Level of Care Code Acute [place] for g Fwd Diagnoses SOB (shortness of breath) R06.02 Benign essential hypertension with target blood pressure below 140/90 I10 Hypokalemia E87.6 Hypopituitarism E23.0 Hyperaldosteronism E26.9 Edema R60.9 Edema type: unspecified Tachycardia R00.0 Neutrophilic leukocytosis D72.9
[2021-01-21] MEDS: enoxaparin 40 mg/0.4 mL Syringe SUBCUT (09:30)
[2021-01-21 11:47] VITALS: PULSE 68; RESP 20; O2SAT 83; O2SAT 92; O2SAT 93
[2021-01-21 11:49] VITALS: BP 121/76; PULSE 55; RESP 22; TEMP 36.7; O2SAT 97
--- NOTE | 2021-01-21 11:55 | PC.SOCIAL ---
IMM updated IMM updated with patient. Verbalized an understanding. Copy Pg 2 provided. Initialled, dated, timed, and placed in chart.
[2021-01-21 12:08] LABS: Glucose Point of Care 146 mg/dL (70-110)
--- NOTE | 2021-01-21 14:43 | P.DS_ITS ---
Discharge Providers Date of Admission: 01/18/21 21:14 Date of Discharge: January 21, 2021 Attending Provider at Admission: Elizabeth Wan MD Attending Provider at Discharge: Jarvis Cormier Primary Care Provider: Piedad Sandhu MD Diagnoses at Discharge Discharge Diagnosis (1) SOB (shortness of breath): Status: Acute (2) Benign essential hypertension with target blood pressure below 140/90: Status: Acute (3) Hypokalemia: Status: Acute (4) Hypopituitarism: Status: Acute (5) Hyperaldosteronism: Status: Chronic (6) Edema: Status: Acute Qualifiers: Edema type: unspecified Qualified Code(s): R60.9 - Edema, unspecified (7) Tachycardia: Status: Acute (8) Neutrophilic leukocytosis: Status: Acute Reason for Visit Reason for Visit: CHF COMPLICATIONS Hospital Course Hospital Course Very pleasant 70-year-old lady was admitted for assessment management due to symptoms of severe dyspnea and respiratory distress with ambulation, accompanied by tachycardia, feeling unwell, tremulousness. Recently had undergone assessment by cardiac monitoring and is following with cardiology as well. She had also reported orthopnea, lower extremity swelling on presentation. NT proBNP was normal, but due to concern for diastolic congestive heart failure exacerbation, possibly with falsely low NT proBNP in the setting of obesity was treated with IV diuresis in the hospital. Responded well in terms of diuresis, however, subsequently with noted worsening renal function, acute kidney injury, creatinine came up to 1.4, IV diuretics discontinued. She was improvement of creatinine resumed on oral home dose diuretics. D-dimer was low with PE unlikely. She was assessed by cardiology. There is no suggestion of acute WI. Echocardiogram showed normal ejection fraction, no regional wall motion of normalities, small pericardial effusion noted. No suggestion of pericarditis on EKG. She had no chest pain, no fever. Incidentally CRP noted with some moderate increase up to 16. ESR requested and pending. She is on chronic steroid. Suspicion of acute pericarditis was low. She was transitioned from Cardizem to metoprolol. Tachycardia had improved. With consideration of possible POTS after COVID-19 infection in September she is continued on metoprolol at this time. Orthostatics were assessed, and did not have significant increase in heart rate with standing, although these were done after she is already started on metoprolol. Blood pressures did not significantly decrease, with heart rate going from 52-62 blood pressures going from 135-148 systolic from laying to standing. She was saturating well on room air. Chest x-ray on presentation was not suggestive of pneumonia. She did have noted leukocytosis, neutrophilic predominantly, as high as 26.6. She has chronic cytosis ranging between 13-15,000, but this was higher than usual. She did not have any symptoms that may specifically suggest acute infection. Urine culture was obtained due to some microscopic hematuria noted on urinalysis, however, this is also a chronic issue with interstitial cystitis as per patient. Urine culture grew normal darin. Due to persistent dyspnea on exertion, with overall symptoms thought to be less likely of cardiac origin, was assessed by CT of the chest which showed some subsegmental atelectasis in left lower lobe without other major abnormality. Leukocytosis gradually has been decreasing and is down to 21.4 this morning. Given some atelectasis she was started on incentive spirometry. Given chronic immune compromise with steroids, we discussed consideration of possible occult pneumonia presenting atypically due to her immunocompromise. Discussed consideration of completion of empiric course of Levaquin for possible atypical presentation of pneumonia, and she is agreeable to do so. Subsequently she is also referred for additional assessment by pulmonary function testing. On home oxygen evaluation she does requiring 2 L of oxygen with exertion, having desaturated down to 83% with attempted ambulation. She is also referred to pulmonology for subsequent assessment. Consider also referral for sleep study. Please also assist her with options for weight loss. Physical Exam Narrative: EXAM NARRATIVE: Visited by family. Const: COMMON NORMALS: no acute distress and patient oriented x3 NUTRITIONAL APPEARANCE: obese morbidly obese HENMT: COMMON NORMALS: oropharynx normal Neck/C-Spine: COMMON NORMALS: no JVD Resp: COMMON NORMALS: normal respiratory effort and clear to auscultation bilaterally AUSCULTATION: clear to auscultation bilaterally Cardio: COMMON NORMALS: no JVD, regular rhythm, S1 normal heart sound present, S2 normal heart sound present and No murmurs present (Cardio) RHYTHM: regular rhythm HEART SOUNDS: S1 normal heart sound present and S2 normal heart sound present GI: COMMON NORMALS: Normal to inspection, nondistended, normoactive bowel sounds present, Soft to palpation and non-tender PALPATION: Yes Soft to palpation Extremity: COMMON NORMALS: no joint enlargement GENERAL: Yes edema (1+ ankle) Neuro: COMMON NORMALS: patient oriented x3 and moves all extremities Skin: COMMON NORMALS: no rashes or lesions noted GENERAL SKIN EXAM: no rashes or lesions noted Discharge Data Data Completed and Pending: Completed Studies During Hospitalization Category Date Time Status CT chest wo con 7 1250 Routine Cat Scan 01/20/21 10:39 Completed XR chest 1V anneliese ble [id number] Urgent Exams 01/18/21 15:07 Completed CV. echo complete * [id number] Routine Ultrasound 01/19/21 08:25 Completed Pending at discharge Category Date Time Status Adrenocorticotrop ic Hormone Routine Lab 01/20/21 06:22 Received Aldosterone Routi ne Lab 01/20/21 06:22 Received Blood Culture Sta t Lab 01/18/21 19:33 Results Complete Blood Co unt w/Auto AM LABS Lab 01/22/21 04:00 Ordered Complete Blood Co unt w/Auto AM LABS Lab 01/23/21 04:00 Ordered Comprehensive Met abolic Panel AM LA BS Lab 01/22/21 04:00 Ordered Comprehensive Met abolic Panel AM LA BS Lab 01/23/21 04:00 Ordered Cortisol ,Free,LC /MS, S Routine Lab 01/20/21 06:22 Received ESR [Erythrocyte Sedimentation Rate ] Routine Lab 01/20/21 05:24 Received Labs from last 24 hours 01/21/21 01/21/21 01/21/21 11:46 06:30 06:22 WBC RBC Hgb Hct MCV MCH MCHC RDW Plt Count MPV Neut % (Auto) Lymph % (Auto) [place] % (Auto) Eos % (Auto) Baso % (Auto) Neut # (Auto) Lymph # (Auto) [place] # (Auto) Eos # (Auto) Baso # (Auto) Nucleated RBC % (a uto) Nucleated RBCs # ESR Sodium 134 L Potassium 3.7 Chloride 100 Carbon Dioxide 24 Anion Gap 13.7 BUN 40 H Creatinine 1.1 H GFR Calculation 49.4 L Glucose 130 H POC Glucose 146 H 272 H Calculated Osmolal ity 290 Calcium 9.1 Total Bilirubin 0.2 AST 9 ALT 20 Alkaline Phosphata se 93 C-Reactive Protein Total Protein 5.5 L Albumin 3.3 L Globulin 2.2 Aldosterone PTH Intact Calcium (PTH Intac t) Free Cortisol Random Cortisol ACTH 01/21/21 01/20/21 01/20/21 06:22 20:07 20:07 WBC 21.4 H RBC 5.05 Hgb 11.8 Hct 40.0 MCV 79.2 L MCH 23.4 L MCHC 29.5 L RDW 16.3 H Plt Count 306 MPV 10.0 Neut % (Auto) 78.8 Lymph % (Auto) 9.1 [place] % (Auto) 9.0 Eos % (Auto) 0.4 Baso % (Auto) 0.2 Neut # (Auto) 16.83 H Lymph # (Auto) 1.9 [place] # (Auto) 1.9 H Eos # (Auto) 0.1 Baso # (Auto) 0.0 Nucleated RBC % (a uto) 0 Nucleated RBCs # 0.0 ESR Sodium Potassium Chloride Carbon Dioxide Anion Gap BUN Creatinine GFR Calculation Glucose POC Glucose Calculated Osmolal ity Calcium Total Bilirubin AST ALT Alkaline Phosphata se C-Reactive Protein Total Protein Albumin Globulin Aldosterone PTH Intact 59.8 Calcium (PTH Intac t) 9.4 Free Cortisol Random Cortisol 0.32 L ACTH 01/20/21 01/20/21 01/20/21 18:49 16:50 06:22 WBC RBC Hgb Hct MCV MCH MCHC RDW Plt Count MPV Neut % (Auto) Lymph % (Auto) [place] % (Auto) Eos % (Auto) Baso % (Auto) Neut # (Auto) Lymph # (Auto) [place] # (Auto) Eos # (Auto) Baso # (Auto) Nucleated RBC % (a uto) Nucleated RBCs # ESR Sodium Potassium Chloride Carbon Dioxide Anion Gap BUN Creatinine GFR Calculation Glucose POC Glucose 191 H 177 H Calculated Osmolal ity Calcium Total Bilirubin AST ALT Alkaline Phosphata se C-Reactive Protein Total Protein Albumin Globulin Aldosterone PTH Intact Calcium (PTH Intac t) Free Cortisol Random Cortisol ACTH Pending 01/20/21 01/20/21 01/20/21 06:22 06:22 05:24 WBC RBC Hgb Hct MCV MCH MCHC RDW Plt Count MPV Neut % (Auto) Lymph % (Auto) [place] % (Auto) Eos % (Auto) Baso % (Auto) Neut # (Auto) Lymph # (Auto) [place] # (Auto) Eos # (Auto) Baso # (Auto) Nucleated RBC % (a uto) Nucleated RBCs # ESR Sodium Potassium Chloride Carbon Dioxide Anion Gap BUN Creatinine GFR Calculation Glucose POC Glucose Calculated Osmolal ity Calcium Total Bilirubin AST ALT Alkaline Phosphata se C-Reactive Protein 16.1 H Total Protein Albumin Globulin Aldosterone Pending PTH Intact Calcium (PTH Intac t) Free Cortisol Pending Random Cortisol ACTH 01/20/21 05:24 WBC RBC Hgb Hct MCV MCH MCHC RDW Plt Count MPV Neut % (Auto) Lymph % (Auto) [place] % (Auto) Eos % (Auto) Baso % (Auto) Neut # (Auto) Lymph # (Auto) [place] # (Auto) Eos # (Auto) Baso # (Auto) Nucleated RBC % (a uto) Nucleated RBCs # ESR Pending Sodium Potassium Chloride Carbon Dioxide Anion Gap BUN Creatinine GFR Calculation Glucose POC Glucose Calculated Osmolal ity Calcium Total Bilirubin AST ALT Alkaline Phosphata se C-Reactive Protein Total Protein Albumin Globulin Aldosterone PTH Intact Calcium (PTH Intac t) Free Cortisol Random Cortisol ACTH Vitals: Last Vital Signs Temp 98.1 F 01/21/21 11:49 Pulse 55 L 01/21/21 11:49 Resp 22 H 01/21/21 11:49 BP 121/76 01/21/21 11:49 Pulse Ox 97 01/21/21 11:49 Discharge Plan Discharge Patient Disposition: Home Condition: Stable Prescriptions: New metoprolol tartrate 25 mg tablet 25 mg PO BID Qty: 180 RF: 0 amlodipine 5 mg tablet 5 mg PO DAILY Qty: 90 RF: 0 levofloxacin 750 mg tablet 750 mg PO DAILY 7 Days Qty: 7 RF: 0 (DME) diabetic supplies, miscellan. Misc See Rx Instructions .Route Qty: 1 RF: 0 Continued losartan 100 mg tablet 100 mg PO QAM RF: 0 pramipexole [Mirapex] 0.125 mg tablet 0.25 mg PO BEDTIME RF: 0 epinephrine [EpiPen 2-Nabeel] 0.3 mg/0.3 mL auto-injector 0.3 mg IM Q10M PRN (Reason: anaphylaxis) Qty: 2 RF: 3 duloxetine [Cymbalta] 30 mg capsule,delayed release(DR/EC) 60 mg PO BEDTIME RF: 0 cetirizine 10 mg tablet 10 mg PO QAM RF: 0 diltiazem HCl 30 mg tablet 30 mg PO TID Qty: 90 RF: 5 esomeprazole magnesium [Nexium] 40 mg capsule,delayed release(DR/EC) 40 mg PO QAM RF: 0 ibuprofen 800 mg tablet 800 mg PO BID RF: 0 dexamethasone 1 mg tablet 2 mg PO QAM RF: 0 clotrimazole-betamethasone 1-0.05 % cream 1 applic topical BID 28 Days Qty: 45 RF: 1 potassium chloride 10 mEq tablet extended release 20 meq PO BID 90 Days Qty: 360 RF: 1 (DME) FreeStyle Daniel 2 [place] Misc See Rx Instructions .Route Qty: 1 RF: 0 (DME) FreeStyle Daniel 2 Sensor Kit See Rx Instructions .Route Qty: 1 RF: 3 Diflucan 200 mg tablet 200 mg PO Q7D RF: 0 levothyroxine 175 mcg tablet 175 mcg PO QAM RF: 0 Lasix 20 mg tablet 40 mg PO BID RF: 0 Ozempic 0.25 mg or 0.5 mg(2 mg/1.5 mL) pen injector 0.5 mg SUBCUT .weekly RF: 0 Ozempic 0.25 mg or 0.5 mg(2 mg/1.5 mL) pen injector 0.25 mg SUBCUT .weekly RF: 0 Ozempic 1 mg/dose (2 mg/1.5 mL) pen injector 1 mg SUBCUT .weekly RF: 0 oxybutynin chloride 10 mg tablet extended release 24hr 20 mg PO QAM RF: 0 allopurinol 100 mg tablet 100 mg PO DAILY PRN (Reason: GOUT) RF: 0 Immune Vitamin C 1 tab PO DAILY RF: 0 Discontinued triamterene-hydrochlorothiazid 75-50 mg tablet 1 tab PO QAM RF: 0 Discharge Orders: Discharge Order (Routine); Ordered 01/21/21 Ordered By: Jarvis Cormier Other Ambulatory Orders: DME: Oxygen (Order) Location: None Selected Ordered By: Jarvis Cormier DME: Oxygen (Order) Location: None Selected Ordered By: Jarvis Cormier Pulmonary Function Screen with Bronchodilator (Routine) Timeframe: 1 Week Facility: [facility] - Location: Respiratory Therapy Ordered By: Jarvis Cormier Referrals: [facility] [Other] Mariana Lawrence FNP [Nurse Practitioner] - 01/28/21 1:45 pm Kenisha Stoll MD [Physician] - (as scheduled) Luzma Lowe MD [Physician] - 2 weeks Piedad Sandhu MD [Primary Care Provider] - 01/28/21 10:00 am Discharge Diet: Low Salt and Low Cholesterol Discharge Activity: Increase activity as tolerated and Oxygen as instructed Patient Instructions: Metoprolol (By mouth), Amlodipine (By mouth), Levofloxacin (By mouth), Opioid Safety Activity Restrictions/Additional Instructions: Please use oxygen as discussed with exertion, taking it off while at rest. Monitor your oxygen saturation to maintain above 88%. Complete antibiotic course. Subsequently follow-up with the pulmonary function test, discussed results with your primary doctor and follow-up with the lung specialist. Discussed referral for sleep study with your primary doctor. Discussed options to help you with weight loss. Discussed with your primary doctor to follow-up on white blood cell count elevation and any changes in symptoms. Please have your primary doctor also follow-up on the inflammatory markers. Noted some moderate increase in C-reactive protein at 16 (upper normal 4.9) which may indicate some underlying inflammation, although we do not have a prior level to compare. Please note as per cardiology recommendation since you are on Lasix as well for now you are asked to hold off on triamterene-HCTZ for now. Aldosterone level is requested. You are started on amlodipine 5 mg to help with management of blood pressure. Please note amlodipine may sometimes contribute to lower extremity swelling, although this should be less likely when used in combination with losartan. Please discuss these medication changes again with your chief physical therapist in office, as well as with your net making supervisor and primary care provider. Discharge Attestations Time Spent in Discharge Care*: greater than 30 min Quality Metrics Clinical Quality Measures During this hospital stay, did patient experience: None Coding Level of Care Code Acute Chg FW DC note Diagnoses SOB (shortness of breath) R06.02 Benign essential hypertension with target blood pressure below 140/90 I10 Hypokalemia E87.6 Hypopituitarism E23.0 Hyperaldosteronism E26.9 Edema R60.9 Edema type: unspecified Tachycardia R00.0 Neutrophilic leukocytosis D72.9
[2021-01-21 14:45] LABS: Erythrocyte Sedimentation Rate 11 mm/hr (0-15)
[2021-01-21 15:34] VITALS: BP 133/70; PULSE 58; RESP 20; TEMP 36.7; O2SAT 97
[2021-01-27 11:33] LABS: Adrenocorticotropic Hormone <5 pg/mL (6-50)
[2021-01-28 17:58] LABS: Cortisol ,Free,LC/MS, S <0.03 mcg/dL
== END 2021-01-21 16:57 | disposition home or self-care (01) | DRG 308 ==
LOC: ER 21:15 → ER IP 01-19 08:29 → MEDSURG 01-19 13:17
PROVIDERS: Family Medicine; Internal Medicine Cardiovascular Disease; Physician Assistant; Admitting Provider Hospitalist; Emergency Provider Emergency Medicine; PCP Family Medicine; Visit Provider Internal Medicine
DX: I49.8 Other specified cardiac arrhythmias (principal); I50.31 Acute diastolic (congestive) heart failure; E27.40 Unspecified adrenocortical insufficiency; E23.0 Hypopituitarism; Z68.43 Body mass index [BMI] 50.0-59.9, adult; N17.9 Acute kidney failure, unspecified; I31.3 Pericardial effusion (noninflammatory); I11.0 Hypertensive heart disease with heart failure; E03.9 Hypothyroidism, unspecified; G89.29 Other chronic pain; M54.9 Dorsalgia, unspecified; E26.9 Hyperaldosteronism, unspecified; E66.01 Morbid (severe) obesity due to excess calories; Z79.52 Long term (current) use of systemic steroids; R73.03 Prediabetes; E87.6 Hypokalemia; Z99.89 Dependence on other enabling machines and devices; U09.9 Post COVID-19 condition, unspecified
CPT/HCPCS: 36415; 36416; 71045; 71250; 80048; 80053; 81001; 82024; 82088; 82310; 82530; 82533; 82962; 83605; 83735; 83880; 83970; 84100; 84145; 84439; 84484; 85025; 85378; 85651; 86140; 87040; 87086; 93005; 93306; 96372; 96374; 99285; J1650; J1815; J1940; J8540

== ENCOUNTER 2021-01-25 19:26 | Inpatient (IN) | payer MEDICARE, OTHER, SELFPAY ==
--- NOTE | 2021-01-25 19:31 | XRR_ITS ---
PROCEDURE INFORMATION: Exam: XR Chest Exam date and time: 01/25/2021 7:31 PM Age: 70 years old Clinical indication: Shortness of breath; Additional info: SOB TECHNIQUE: Imaging protocol: XR of the chest. Views: 1 view. COMPARISON: CT chest con [id number] 01/20/2021 2:20 PM FINDINGS: Lungs: Unremarkable. No consolidation. Pleural spaces: Unremarkable. No pleural effusion. No pneumothorax. Heart/Mediastinum: Unremarkable. No cardiomegaly. Bones/joints: Unremarkable. XR/XR chest 1V portable [id number] IMPRESSION: No acute findings. Radiation Dose CTDIVOL = (mGy): DLP = (mGy-cm)
[2021-01-25 20:03] VITALS: BP 144/92; PULSE 74; RESP 20; TEMP 37.1; O2SAT 100; BMI 56.5
--- NOTE | 2021-01-25 20:31 | ECG_ITS ---
[facility] Test Date: 2021-01-25 Pat Name: Carolyn Alexander Department: Room: Gender: Female Civil Rights Representative: : 1950 Requested By: Lazarus Durbin Order Number: [id number] Laina MD: Jaki Leavitt M.D. Measurements Intervals [place] Rate: 66 P: 55 AK: 137 QRS: -20 QRSD: 94 T: 38 QT: 418 QTc: 439 Interpretive Statements SINUS RHYTHM Compared to ECG 01/19/2021 01:20:55 Sinus arrhythmia no longer present T-wave abnormality no longer present Possible ischemia no longer present Electronically Signed On 01-26-2021 22:09:00 CDT by Jaki Leavitt M.D. [id number]
--- NOTE | 2021-01-25 23:25 | ED_ITS ---
Documented by User: DAMASO Lake 01/26/21 02:35 HPI - SOB/Dyspnea General: Chief Complaint: Shortness of Breath/Dyspnea Stated Complaint: sob, fatigue, sent from [facility] Time Seen by Provider: 01/25/21 23:16 Source: patient Mode of arrival: wheelchair Limitations: no limitations History of Present Illness: HPI Narrative: Patient is a nice 70-year-old female with a history of adrenal insufficiency, hypothyroidism, hyperaldosteronism, hypopituitarism, morbid obesity, prediabetes, and pituitary macroadenoma here for complaints of worsening shortness of breath, edema, weakness, and fatigue. Patient was admitted to the hospital on 01/18 for similar symptoms and discharged on 01/21. Patient states while in the hospital she received IV diuresis. She feels like since discharge she is retaining even more fluid. She states she was discharged home on oxygen with directions to wear with exertion however patient tells me she had to wear it throughout the night yesterday evening. She is complaining of orthopnea. She has not been running fevers. No cough. While in the hospital she did have an echocardiogram which showed normal EF. MD elicited complaint: shortness of breath Associated symptoms: Reports orthopnea; Deny abdominal pain, chest congestion, chest pain, dizziness, extremity pain, fever(s), lightheadedness, nausea, palpitations, syncope or vomiting Review of Systems Const: Reports: fatigue; Denies: fever(s), chills, body aches or malaise Card: Reports: edema, swelling of feet/ankles, dyspnea on exertion and orthopnea; Denies: chest pain, palpitations, irregular heart rhythm, lightheadedness, sync ope or pre-syncope Resp: Reports: dyspnea; Denies: productive cough, non-productive cough or chest congestion GI: Denies: abdominal pain, nausea, vomiting or diarrhea : Denies: flank pain or dysuria Musc: Denies: neck pain, back pain, extremity pain or joint pain Skin/Breast: Denies: rash Neuro: Reports: difficulty walking (secondary to SOB/weakness); Denies: headache(s) or dizziness PFS ED PFSH: Medical History (Updated 01/26/21 @ 02:35 by DAMASO Lake) Adrenal insufficiency Benign essential hypertension with target blood pressure below 140/90 Central hypothyroidism CHF (congestive heart failure) Chronic back pain Follows at pain clinic for periodic injections COVID-19 (~09/2020) Edema Facet arthritis, degenerative, lumbar spine History of anaphylaxis History of atrial fibrillation Intermittent, has not required long-term anticoagulation or focused treatment History of COVID-19 HTN (hypertension) Hyperaldosteronism 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 Mother Cancer Lung disease Grandfather Cancer Grandmother Dementia Denies family history of Diabetes CAD (coronary artery disease) Clotting disorder Chronic kidney disease (CKD) Suicide Anesthesia complication Bleeding disorder Stroke Social History Smoking and tobacco status: never smoked Second hand smoke exposure: No Alcohol intake: never Caregiver/support person: Yes Lives independently: Yes Household members: spouse Marital status: service: No Current occupational status: retired Current gender identity: Female Female Reproductive History: Date of last menstrual period: 01/22/21 Physical Exam Const: COMMON NORMALS: no acute distress, patient oriented x3, no limitations and alert GENERAL APPEARANCE: cooperative NUTRITIONAL APPEARANCE: obese morbidly obese ORIENTATION/CONSCIOUSNESS: Yes awake, Yes oriented to person, Yes oriented to place and Yes oriented to time HENMT: COMMON NORMALS: normocephalic and atraumatic HEAD & SCALP: normocephalic and atraumatic Resp: COMMON NORMALS: normal respiratory effort and clear to auscultation bilaterally AUSCULTATION: clear to auscultation bilaterally Cardio: COMMON NORMALS: regular rate and regular rhythm RATE: regular rate RHYTHM: regular rhythm GI: COMMON NORMALS: Soft to palpation and non-tender PALPATION: Yes Soft to palpation OTHER: limited secondary to body habitus; ecchymosis from SQ Lovenox while hospitalized Extremity: GENERAL: Yes normal exam except as noted and Yes edema (bilateral 2+ pitting edema) Neuro: COMMON NORMALS: patient oriented x3 SENSORIUM/ORIENTATION: Yes alert, Yes oriented to person, Yes oriented to place and Yes oriented to time Skin: COMMON NORMALS: no rashes or lesions noted GENERAL SKIN EXAM: no rashes or lesions noted Course Vital Signs: Vital signs: Vital Signs Temperature 98.7 F 01/25/21 20:03 Pulse Rate 68 01/26/21 00:33 Respiratory Rate 22 H 01/26/21 00:33 Blood Pressure 153/91 01/26/21 00:33 Pulse Oximetry 97 01/26/21 00:33 MDM - SOB/Dyspnea MDM Narrative: Medical decision making narrative: Patient is a 70-year-old female here for edema, shortness of breath, weakness, and fatigue. She has significant leukocytosis of 34.4 which is even higher than when she was discharged from the hospital. Etiology unknown. CXR is normal. He does have mild elevations to her kidney functions. Patient is on multiple diuretics. BNP is only 178. Again she had an echo on her last hospitalization which showed a normal EF. Dr. Durbin also evaluated patient and spoke to Dr. Guardado who agreed to admit patient to observation. Lab Data: Labs: Lab Results 01/25/21 01/25/21 01/25/21 00:15 00:15 00:15 WBC 32.4 10^3/uL H* 1 0^3/uL (4.0-10.0) RBC 5.98 10^6/uL H 10 ^6/uL (4.1-5.3) Hgb 13.6 g/dL g/dL (11.5-15.3) Hct 46.9 % % (37.0-47.0) MCV 78.4 fl L fl (81-99) MCH 22.7 pg L pg (28.0-34.0) MCHC 29.0 g/dL L g/dL (30.0-36.0) RDW 16.3 % H % (12.1-15.1) Plt Count 402 10^3/cmm H 10 ^3/cmm (130-400) MPV 9.7 fL fL (7.4-10.4) Neut % (Auto) 83.7 % % Lymph % (Auto) 6.8 % % [place] % (Auto) 5.8 % % Eos % (Auto) 0.2 % % Baso % (Auto) 0.2 % % Neut # (Auto) 27.08 10^3/uL H 1 0^3/uL (1.8-7.7) Lymph # (Auto) 2.2 10^3/uL 10^3/ uL (0.8-4.8) [place] # (Auto) 1.9 10^3/uL H 10^ 3/uL (0.2-0.9) Eos # (Auto) 0.1 10^3/uL 10^3/ uL (0.0-0.8) Baso # (Auto) 0.1 10^3/uL 10^3/ uL (0.0-0.1) Nucleated RBC % (a uto) 0 % % Nucleated RBCs # 0.0 /100WBC /100W BC Sodium 137 mmol/L mmol/L (136-145) Potassium 3.8 mmol/L mmol/L (3.5-5.1) Chloride 95 mmol/L L mmol/ L (98-107) Carbon Dioxide 30 mmol/L H mmol/ L (22-29) Anion Gap 15.8 (5-19) BUN 43 mg/dL H mg/dL (8-23) Creatinine 1.3 mg/dL H mg/dL (0.5-0.9) GFR Calculation 40.7 mL/min L mL/ min (90-130) Glucose 124 mg/dL H mg/dL (65-115) Calculated Osmolal ity 296 mOsm/kg H mOs m/kg (285-295) Lactic Acid 1.8 mmol/L mmol/L (0.5-2.2) Calcium 10.1 mg/dL mg/dL (8.5-10.5) Total Bilirubin 0.3 mg/dL mg/dL (0.15-1.2) AST 11 U/L U/L (0-32) ALT 26 U/L U/L (0-33) Alkaline Phosphata se 106 IU/L H IU/L (35-105) Troponin T Baselin e NT-Pro-B Natriuret Pep 178 pg/mL H pg/mL (0-125) Total Protein 7.0 g/dL g/dL (6.6-8.7) Albumin 4.1 g/dL g/dL (3.5-5.2) Globulin 2.9 g/dL g/dL (1.3-4.6) Urine Color Urine Appearance Urine pH Ur Specific Gravit y Urine Protein Urine Glucose (UA) Urine Ketones Urine Blood Urine Nitrate Urine Bilirubin Urine Urobilinogen Ur Leukocyte Saida ase Urine RBC Urine WBC Ur Squamous Epith Cells Amorphous Sediment Urine Bacteria 01/25/21 01/26/21 00:15 00:25 WBC RBC Hgb Hct MCV MCH MCHC RDW Plt Count MPV Neut % (Auto) Lymph % (Auto) [place] % (Auto) Eos % (Auto) Baso % (Auto) Neut # (Auto) Lymph # (Auto) [place] # (Auto) Eos # (Auto) Baso # (Auto) Nucleated RBC % (a uto) Nucleated RBCs # Sodium Potassium Chloride Carbon Dioxide Anion Gap BUN Creatinine GFR Calculation Glucose Calculated Osmolal ity Lactic Acid Calcium Total Bilirubin AST ALT Alkaline Phosphata se Troponin T Baselin e 14 ng/L H ng/L (0-10) NT-Pro-B Natriuret Pep Total Protein Albumin Globulin Urine Color Yellow (Yellow) Urine Appearance Clear (CLEAR) Urine pH 7 (5-7) Ur Specific Gravit y 1.010 (1.005-1.030) Urine Protein Neg (Negative) Urine Glucose (UA) Norm (Normal) Urine Ketones Negative (Negative) Urine Blood 1+ H (Negative) Urine Nitrate Negative (Negative) Urine Bilirubin Neg (Negative) Urine Urobilinogen Norm mg/dL mg/dL (Negative) Ur Leukocyte Saida ase Negative (Negative) Urine RBC 5-10 /hpf H /hpf (0-2) Urine WBC 0-4 /hpf H /hpf (0-5) Ur Squamous Epith Cells 0-4 /hpf H /hpf (0-5) Amorphous Sediment Not Reportable Urine Bacteria None /hpf /hpf (NONE) Imaging Data^: CXR: Radiologist's impression: [facility] [address] [place] [address] XRay Report Signed Patient: Carolyn Alexander Unit #: [id number] : 1950 Age/Sex: 70 / F ADM Date: 01/25/21 Loc: ER Room/Bed: Attending Dr: Ordering Provider/Ordering MD: Chapis Ruiz Date of Service: 01/25/21 Procedure(s): XR chest 1V portable [id number] Accession Number(s): [id number] Report Number: [id number] PROCEDURE INFORMATION: Exam: XR Chest Exam date and time: 01/25/2021 7:31 PM Age: 70 years old Clinical indication: Shortness of breath; Additional info: SOB TECHNIQUE: Imaging protocol: XR of the chest. Views: 1 view. COMPARISON: CT chest [facility] [id number] 01/20/2021 2:20 PM FINDINGS: Lungs: Unremarkable. No consolidation. Pleural spaces: Unremarkable. No pleural effusion. No pneumothorax. Heart/Mediastinum: Unremarkable. No cardiomegaly. Bones/joints: Unremarkable. XR/XR chest 1V portable [id number] IMPRESSION: No acute findings. Radiation Dose CTDIVOL = (mGy): DLP = (mGy-cm) Dictated By: Leon Galvan Signed By: Leon Galvan Signed Date/Time: 01/25/212227 DD/ 30 Discharge Plan Discharge Patient Disposition: Placed in Observation Clinical Impression: Obesity, Edema, Dyspnea Leukocytosis Qualifiers: Leukocytosis type: unspecified Qualified Code(s): D72.829 - Elevated white blood cell count, unspecified Coding Level of Care Code ED Senior Systems Architect for Chg Fwd Exam Detailed Documented by User: Lazarus Durbin MD 01/26/21 02:45 HPI - SOB/Dyspnea General: Chief Complaint: Shortness of Breath/Dyspnea Stated Complaint: sob, fatigue, sent from [facility] Time Seen by Provider: 01/25/21 23:16 PFSH ED PFSH: Medical History (Updated 01/26/21 @ 02:35 by DAMASO Lake) Adrenal insufficiency Benign essential hypertension with target blood pressure below 140/90 Central hypothyroidism CHF (congestive heart failure) Chronic back pain Follows at pain clinic for periodic injections COVID-19 (~09/2020) Edema Facet arthritis, degenerative, lumbar spine History of anaphylaxis History of atrial fibrillation Intermittent, has not required long-term anticoagulation or focused treatment History of COVID-19 HTN (hypertension) Hyperaldosteronism 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 Mother Cancer Lung disease Grandfather Cancer Grandmother Dementia Denies family history of Diabetes CAD (coronary artery disease) Clotting disorder Chronic kidney disease (CKD) Suicide Anesthesia complication Bleeding disorder Stroke Social History Smoking and tobacco status: never smoked Second hand smoke exposure: No Alcohol intake: never Caregiver/support person: Yes Lives independently: Yes Household members: spouse Marital status: service: No Current occupational status: retired Current gender identity: Female Course Vital Signs: Vital signs: Vital Signs Temperature 98.7 F 01/25/21 20:03 Pulse Rate 68 01/26/21 00:33 Respiratory Rate 22 H 01/26/21 00:33 Blood Pressure 153/91 01/26/21 00:33 Pulse Oximetry 97 01/26/21 00:33 MDM - SOB/Dyspnea MDM Narrative: Medical decision making narrative: I spoke to patient at length she is well-appearing here no distress states she still having exertional dyspnea she does have an increasing leukocytosis could be due to her steroids but is going up is currently 32.4 she is on Levaquin no fever I spoke to Dr. Angela corrales and did come in agreement to admit for observation. Lab Data: Labs: Lab Results 01/25/21 01/25/21 01/25/21 00:15 00:15 00:15 WBC 32.4 10^3/uL H* 1 0^3/uL (4.0-10.0) RBC 5.98 10^6/uL H 10 ^6/uL (4.1-5.3) Hgb 13.6 g/dL g/dL (11.5-15.3) Hct 46.9 % % (37.0-47.0) MCV 78.4 fl L fl (81-99) MCH 22.7 pg L pg (28.0-34.0) MCHC 29.0 g/dL L g/dL (30.0-36.0) RDW 16.3 % H % (12.1-15.1) Plt Count 402 10^3/cmm H 10 ^3/cmm (130-400) MPV 9.7 fL fL (7.4-10.4) Neut % (Auto) 83.7 % % Lymph % (Auto) 6.8 % % [place] % (Auto) 5.8 % % Eos % (Auto) 0.2 % % Baso % (Auto) 0.2 % % Neut # (Auto) 27.08 10^3/uL H 1 0^3/uL (1.8-7.7) Lymph # (Auto) 2.2 10^3/uL 10^3/ uL (0.8-4.8) [place] # (Auto) 1.9 10^3/uL H 10^ 3/uL (0.2-0.9) Eos # (Auto) 0.1 10^3/uL 10^3/ uL (0.0-0.8) Baso # (Auto) 0.1 10^3/uL 10^3/ uL (0.0-0.1) Nucleated RBC % (a uto) 0 % % Nucleated RBCs # 0.0 /100WBC /100W BC Sodium 137 mmol/L mmol/L (136-145) Potassium 3.8 mmol/L mmol/L (3.5-5.1) Chloride 95 mmol/L L mmol/ L (98-107) Carbon Dioxide 30 mmol/L H mmol/ L (22-29) Anion Gap 15.8 (5-19) BUN 43 mg/dL H mg/dL (8-23) Creatinine 1.3 mg/dL H mg/dL (0.5-0.9) GFR Calculation 40.7 mL/min L mL/ min (90-130) Glucose 124 mg/dL H mg/dL (65-115) Calculated Osmolal ity 296 mOsm/kg H mOs m/kg (285-295) Lactic Acid 1.8 mmol/L mmol/L (0.5-2.2) Calcium 10.1 mg/dL mg/dL (8.5-10.5) Total Bilirubin 0.3 mg/dL mg/dL (0.15-1.2) AST 11 U/L U/L (0-32) ALT 26 U/L U/L (0-33) Alkaline Phosphata se 106 IU/L H IU/L (35-105) Troponin T Baselin e NT-Pro-B Natriuret Pep 178 pg/mL H pg/mL (0-125) Total Protein 7.0 g/dL g/dL (6.6-8.7) Albumin 4.1 g/dL g/dL (3.5-5.2) Globulin 2.9 g/dL g/dL (1.3-4.6) Urine Color Urine Appearance Urine pH Ur Specific Gravit y Urine Protein Urine Glucose (UA) Urine Ketones Urine Blood Urine Nitrate Urine Bilirubin Urine Urobilinogen Ur Leukocyte Saida ase Urine RBC Urine WBC Ur Squamous Epith Cells Amorphous Sediment Urine Bacteria 01/25/21 01/26/21 00:15 00:25 WBC RBC Hgb Hct MCV MCH MCHC RDW Plt Count MPV Neut % (Auto) Lymph % (Auto) [place] % (Auto) Eos % (Auto) Baso % (Auto) Neut # (Auto) Lymph # (Auto) [place] # (Auto) Eos # (Auto) Baso # (Auto) Nucleated RBC % (a uto) Nucleated RBCs # Sodium Potassium Chloride Carbon Dioxide Anion Gap BUN Creatinine GFR Calculation Glucose Calculated Osmolal ity Lactic Acid Calcium Total Bilirubin AST ALT Alkaline Phosphata se Troponin T Baselin e 14 ng/L H ng/L (0-10) NT-Pro-B Natriuret Pep Total Protein Albumin Globulin Urine Color Yellow (Yellow) Urine Appearance Clear (CLEAR) Urine pH 7 (5-7) Ur Specific Gravit y 1.010 (1.005-1.030) Urine Protein Neg (Negative) Urine Glucose (UA) Norm (Normal) Urine Ketones Negative (Negative) Urine Blood 1+ H (Negative) Urine Nitrate Negative (Negative) Urine Bilirubin Neg (Negative) Urine Urobilinogen Norm mg/dL mg/dL (Negative) Ur Leukocyte Saida ase Negative (Negative) Urine RBC 5-10 /hpf H /hpf (0-2) Urine WBC 0-4 /hpf H /hpf (0-5) Ur Squamous Epith Cells 0-4 /hpf H /hpf (0-5) Amorphous Sediment Not Reportable Urine Bacteria None /hpf /hpf (NONE) Discharge Plan Discharge Patient Disposition: Placed in Observation Clinical Impression: Obesity, Edema, Dyspnea Leukocytosis Qualifiers: Leukocytosis type: unspecified Qualified Code(s): D72.829 - Elevated white blood cell count, unspecified Coding Level of Care Code ED Senior Systems Architect for g Fwd Exam Detailed
[2021-01-26] VITALS (11 sets, daily range): BP systolic 99–199; BP diastolic 54–148; PULSE 66–81; RESP 14–32; TEMP 36.2–36.6; O2SAT 92–97
[2021-01-26 00:35] LABS: Basophils # 0.1 10^3/uL (0.0-0.1); Basophils % 0.2 %; Eosinophils # 0.1 10^3/uL (0.0-0.8); Eosinophils % 0.2 %; Hematocrit 46.9 % (37.0-47.0); Hemoglobin 13.6 g/dL (11.5-15.3); Lymphocytes # 2.2 10^3/uL (0.8-4.8); Lymphocytes % 6.8 %; Mean Corpuscular Hemoglobin 22.7 pg (28.0-34.0); Mean Corpuscular Volume 78.4 fl (81-99); Mean Platelet Volume 9.7 fL (7.4-10.4); Monocytes # 1.9 10^3/uL (0.2-0.9); Monocytes % 5.8 %; Neutrophils # 27.08 10^3/uL (1.8-7.7); Neutrophils % 83.7 %; Nucleated Red Blood Cells % 0 %; Platelet Count 402 10^3/cmm (130-400); Red Blood Count 5.98 10^6/uL (4.1-5.3); Red Cell Distribution Width 16.3 % (12.1-15.1)
[2021-01-26 00:50] LABS: Bilirubin Urine Neg (Negative); Blood Urine 1+ (Negative); Glucose Urine UA Norm (Normal); Ketones Urine Negative (Negative); Leukocyte Esterase Urine Negative (Negative); Nitrate Urine Negative (Negative); Protein Urine Neg (Negative); Urine Appearance Clear (CLEAR); Urine Color Yellow (Yellow); Urobilinogen Urine Norm (Negative); pH Urine 7 (5-7)
[2021-01-26 00:50] LABS: Lactic Sepsis W/Reflex 1.8 mmol/L (0.5-2.2)
[2021-01-26 00:51] LABS: Add Urine Microscopic? YES
[2021-01-26 00:52] LABS: Add Urine Culture? No; Squamous Epithelial Cell Urine 0-4 /hpf (0-5); WBC Urine 0-4 /hpf (0-5)
[2021-01-26 00:53] LABS: Troponin(5th) Baseline 14 ng/L (0-10)
[2021-01-26 00:58] LABS: White Blood Count 32.4 10^3/uL (4.0-10.0)
[2021-01-26 01:02] LABS: Alanine Aminotransferase 26 U/L (0-33); Albumin Level 4.1 g/dL (3.5-5.2); Alkaline Phosphatase 106 IU/L (35-105); Anion Gap 15.8 (5-19); Aspartate Amino Transferase 11 U/L (0-32); Blood Urea Nitrogen 43 mg/dL (8-23); Calcium 10.1 mg/dL (8.5-10.5); Carbon Dioxide 30 mmol/L (22-29); Chloride 95 mmol/L (98-107); Globulin 2.9 g/dL (1.3-4.6); Glomerular Filtration Rate 40.7 mL/min (90-130); Glucose 124 mg/dL (65-115); NT Pro B Type Natriuretic Pept 178 pg/mL (0-125); Osmolality Calculated 296 mOsm/kg (285-295); Potassium 3.8 mmol/L (3.5-5.1); Sodium 137 mmol/L (136-145); Total Bilirubin 0.3 mg/dL (0.15-1.2)
[2021-01-26] MEDS: FUROsemide 10 mg/mL SDV 10mL 60 MG IVP (02:42)
[2021-01-26 03:00] LABS: Troponin 5 2HR 15.22 ng/L (0-10)
[2021-01-26 03:08] LABS: Troponin 5 2HR Delta 1.22 ABS# (0-10)
--- NOTE | 2021-01-26 06:16 | PM.HP ---
Providers/Chief Complaint Primary Care Provider: Piedad Sandhu MD Chief Complaint: High wbc, sob, fatigue, sent from [facility] History of Present Illness Carolyn Alexander is a 70 year old female recently discharged on 01/21 after admission here from 01/19-01/21. She was admitted for assessment and management due to symptoms of severe dyspnea and respiratory distress with ambulation, accompanied by tachycardia, feeling unwell, tremulousness. Recently had undergone assessment by cardiac monitoring and is following with cardiology as well. Treated with IV diuresis in the hospital. Responded well in terms of diuresis, however, subsequently with noted worsening renal function, acute kidney injury, creatinine came up to 1.4, IV diuretics held and later discharged with oral diuretics once cr stabilized. D-dimer was low with PE unlikely. She was assessed by cardiology. There is no suggestion of acute PR. Echocardiogram showed normal ejection fraction, no regional wall motion of normalities, small pericardial effusion noted. No suggestion of pericarditis on EKG. She is on chronic steroids for h/o adrenal insufficiency. Negative orthostatics on last admission. She did have noted leukocytosis, neutrophilic predominantly, as high as 26.6, attributed likely to steroids. She has chronic leukocytosis ranging between 13-15,000. Infectious w/up included negative UA, cx with normal darni, CXR without signs of pneumonia. CT of the chest which showed some subsegmental atelectasis in left lower lobe without other major abnormality. she was discharged iwth empiric course of Levaquin and referred for pulmonary function testing. On home oxygen evaluation she required 2 L of oxygen with exertion, having desaturated down to 83% with attempted ambulation. She was also referred to pulmonology for subsequent assessment including sleep study. recommended weight loss given BMI ~57. She returned to ER today due to c/o worsening shortness of breath, edema, weakness, and fatigue,orthopnea. Leukocytosis has increased to 31.4, higher than at discharge from 21.4 which makes her concerned. Peripheral smear with mild monocytosis. Baseline trop and BNP not elevated. CR at baseline of 1.0. UA negative leuk estarease and nitrite. CXR without acute findings. Blood cx taken and pending/ Review of Systems General: Reports: 10 or more systems reviewed and unremarkable except in HPI and below Const: Denies: fever(s), chills or body aches Eyes: Denies: change in vision, blurry vision or photophobia ENMT: Reports: hoarseness; Denies: throat pain, enlarged tonsils, odynophagia or nasal congestion Card: Denies: chest pain, palpitations, irregular heart rhythm, edema, swelling of feet/ankles, lightheadedness, pre-syncope, dyspnea on exertion or orthopnea Resp: Denies: dyspnea, productive cough, non-productive cough, wheezing, stridor, pain on inspiration, change in phlegm color, hemoptysis or chest congestion GI: Denies: abdominal pain, nausea, vomiting, hematemesis, coffee ground emesis, dysphagia, heartburn, diarrhea, constipation, GI cramping, change in stool character, hematochezia or melena : Denies: flank pain, difficulty voiding, dysuria, urinary frequency, urinary urgency, urinary hesitancy or hematuria Musc: Denies: neck pain, back pain, extremity pain, joint swelling, joint warmth or deformity Neuro: Denies: headache(s), numbness in extremities, weakness in extremities, sensory changes, difficulty walking, frequent falls, dizziness, vertigo, behavioral changes, Slurred speech present or seizure-like activity Psych: Denies: anxiety, depression, suicidal ideation or homicidal ideation Endo: Denies: polyuria, polydipsia, tired all the time, cold intolerance or hot flashes Charli/Lymph: Denies: easy bruising or easy bleeding Medications/Allergies Home Medications Medication Instructions Recorded Confirmed Last Taken Type losartan 100 mg tablet 100 mg PO [facility] 08/08/19 01/25/21 01/17/21 History esomeprazole magnesium 40 mg 40 mg PO [facility] 11/06/19 01/25/21 01/17/21 History capsule,delayed release pramipexole 0.125 mg tablet 0.25 mg PO BEDTIME tab 11/06/19 01/25/21 01/17/21 History epinephrine 0.3 mg/0.3 mL 0.3 mg IM Q10M PRN #2 ea 04/20/20 01/25/21 Unknown Rx injection, auto-injector clotrimazole-betamethasone 1 1 applic TOPICAL BID 28 Days #45 g 11/11/20 01/25/21 01/17/21 Rx %-0.05 % topical cream ibuprofen 800 mg tablet 800 mg PO BID tab 12/02/20 01/25/21 Unknown History cetirizine 10 mg tablet 10 mg PO QAM tab 01/04/21 01/25/21 01/17/21 History dexamethasone 1 mg tablet 2 mg PO QAM tab 01/04/21 01/25/21 Unknown History diltiazem HCl 30 mg tablet 30 mg PO TID #90 tab 01/04/21 01/25/21 01/17/21 Rx duloxetine 30 mg capsule,delayed 60 mg PO BEDTIME cap 01/04/21 01/25/21 01/17/21 History release potassium chloride 10 mEq 20 meq PO BID 90 Days #360 tab 01/18/21 01/25/21 01/17/21 Rx tablet,extended release Diflucan 200 mg PO Q7D 01/19/21 01/25/21 01/15/21 History Immune Vitamin C 1 tab PO DAILY 01/19/21 01/25/21 Unknown History Lasix 40 mg PO BID 01/19/21 01/25/21 01/17/21 History Ozempic 0.25 mg SUBCUT .weekly 01/19/21 01/25/21 Unknown History Ozempic 0.5 mg SUBCUT .weekly 01/19/21 01/25/21 Unknown History Ozempic 1 mg SUBCUT .weekly 01/19/21 01/25/21 Unknown History allopurinol 100 mg PO DAILY PRN 01/19/21 01/25/21 Unknown History levothyroxine 175 mcg PO QAM 01/19/21 01/25/21 01/17/21 History oxybutynin chloride 20 mg PO QAM 01/19/21 01/25/21 01/17/21 History amlodipine 5 mg PO DAILY #90 tab 01/21/21 01/25/21 Unknown Rx diabetic supplies, miscellan. #1 ea 01/21/21 01/25/21 Unknown Rx flash glucose scanning reader #1 ea 01/21/21 01/25/21 Unknown Rx flash glucose sensor #1 ea 01/21/21 01/25/21 Unknown Rx metoprolol tartrate 25 mg PO BID #180 tab 01/21/21 01/25/21 Unknown Rx blood-glucose meter,continuous #1 ea 01/25/21 01/25/21 Unknown Rx bumetanide 0.5 mg tablet 0.5 mg PO BID 30 Days #60 tab 01/25/21 01/25/21 Unknown Rx levofloxacin 750 mg tablet 750 mg PO DAILY 7 Days #7 tab 01/25/21 01/25/21 Unknown Rx Allergies Allergy/AdvReac Type Severity Reaction Status Date / Time acetaminophen [From Tylenol] Allergy ALGY-Hives Verified 01/25/21 15:10 azithromycin Allergy ALGY-Anaphy Verified 01/25/21 15:10 laxis benzocaine Allergy ALGY-Hives Verified 01/25/21 15:10 butamben [From Cetacaine] Allergy ALGY-Swell Verified 01/25/21 15:10 Lip/Tongue/Throat codeine Allergy ALGY-Hives Verified 01/25/21 15:10 fentanyl Allergy ALGY-Anaphy Verified 01/25/21 15:10 laxis hydrocodone [From Vicodin] Allergy ALGY-Hives Verified 01/25/21 15:10 hydromorphone [From Dilaudid] Allergy ADR-Vomitin Verified 01/25/21 15:10 g Iodinated Contrast Media Allergy ALGY-Anaphy Verified 01/25/21 15:10 laxis liothyronine Allergy ADR-Nausea Verified 01/25/21 15:10 meperidine [From Demerol] Allergy Unknown Verified 01/25/21 15:10 morphine Allergy ALGY-Anaphy Verified 01/25/21 15:10 laxis nitrofurantoin Allergy ALGY-Joint Verified 01/25/21 15:10 [From Macrobid] Pain oxycodone [From Percocet] Allergy ALGY-Hives Verified 01/25/21 15:10 penicillin V Allergy ALGY-Hives Verified 01/25/21 15:10 Penicillins Allergy Unknown Verified 01/25/21 15:10 Phenothiazines Allergy ALGY-Anaphy Verified 01/25/21 15:10 laxis pregabalin [From Lyrica] Allergy ADV-Weaknes Verified 01/25/21 15:10 s procaine Allergy ALGY-Hives Verified 01/25/21 15:10 prochlorperazine Allergy ALGY-Anaphy Verified 01/25/21 15:10 [From Compazine] laxis Sulfa (Sulfonamide Allergy Unknown Verified 01/25/21 15:10 Antibiotics) tetracaine [From Cetacaine] Allergy Davie Verified 01/25/21 15:10 Lip/Tongue/Throat PFSH Acute PFSH: Medical History Adrenal insufficiency Benign essential hypertension with target blood pressure below 140/90 Central hypothyroidism CHF (congestive heart failure) Chronic back pain Follows at pain clinic for periodic injections COVID-19 (~09/2020) Edema Facet arthritis, degenerative, lumbar spine History of anaphylaxis History of atrial fibrillation Intermittent, has not required long-term anticoagulation or focused treatment History of COVID-19 HTN (hypertension) Hyperaldosteronism 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 Mother Cancer Lung disease Grandfather Cancer Grandmother Dementia Denies family history of Diabetes CAD (coronary artery disease) Clotting disorder Chronic kidney disease (CKD) Suicide Anesthesia complication Bleeding disorder Stroke Social History Smoking and tobacco status: never smoked Second hand smoke exposure: No Alcohol intake: never Caregiver/support person: Yes Lives independently: Yes Household members: spouse Marital status: service: No Current occupational status: retired Current gender identity: Female Female Reproductive History: Date of last menstrual period: 01/22/21 Vitals/I&O/Wt Last Vital Signs Temp 98.7 F 01/25/21 20:03 Pulse 68 01/26/21 00:33 Resp 22 H 01/26/21 00:33 BP 153/91 01/26/21 00:33 Pulse Ox 97 01/26/21 00:33 01/25/21 01/25/21 01/26/21 14:59 22:59 06:59 Output Total 300 / 300 Balance -300 / -300 Weight last 48 hrs Weight 154.221 kg Physical Exam Narrative: EXAM NARRATIVE: General: No acute distress, AO x3 HEENT: PERRLA, pupils bilaterally equal and reactive, pallors not present Chest: Normal vesicular breath sounds, no added sounds, equal good air entry bilaterally CVS: S1-S2 regular, no murmurs, no tachycardia, no gallops, no rubs Abdomen: Soft, nontender, no organomegaly, bowel sounds present Neuro: No focal deficits, no facial deformity, AO x3, power 5/5 in all limbs Extremities: Healthy surgical dressing present on the right hip, mild tenderness, soft no erythema. Data : 01/25/21 00:15 01/25/21 00:15 Micro: Microbiology 01/25/21 00:15 Blood Culture - Preliminary Blood SPECIMEN COLLECTED 01/25/21 00:00 Blood Culture - Preliminary Blood SPECIMEN COLLECTED A&P Assessment and plan (1) Dyspnea: Recent extensive work up negative for underlying cardiac etiology Echo Normal left ventricular size and systolic function, EF 69% . No regional wall motion abnormalities. BNP not significantly elevated. EKG today withut acute ST-T wave changes, troponin not signifcantly elevated at 2 hrs CXR without acute findings, recent CT chest 01/20 with left atelactasis, no other abnormalities no changes in mentation to raise suspicion for meningoencephalitis saturating 97% on RA, recently discharged on 2 lpm Susect dyspnea may be related to obesity hypoventilation will check D dimer Status: Acute Qualifiers: Dyspnea type: dyspnea on exertion Qualified Code(s): R06.00 - Dyspnea, unspecified (2) Leukocytosis: Elevated to 31.3 today No focal signs or symptoms of infection evident at this time, however will need to exclude infectious causes in patient on chronic steroids. UA negative, CXRX without acute infiltrates Check peripheral smear Blood cx 01/18 with CoNs, likely contaminant, however will repeat today given presence of spinal cord stimulator. 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
--- NOTE | 2021-01-26 06:44 | CTR_ITS ---
PROCEDURE INFORMATION: Exam: CT Abdomen And Pelvis Without Contrast Exam date and time: 01/26/2021 6:44 AM Age: 70 years old Clinical indication: Abnormal findings; Abnormal lab test; Elevated wbc; Additional info: Persisting leukocytosis, evaluate abdominal sources TECHNIQUE: Imaging protocol: Computed tomography of the abdomen and pelvis without contrast. Total images: 290 Radiation optimization: All CT scans at this facility use at least one of these dose optimization techniques: automated exposure control; mA and/or kV adjustment per patient size (includes targeted exams where dose is matched to clinical indication); or iterative reconstruction. COMPARISON: CT chest wo con [id number] 01/20/2021 2:20 PM RADIATION DOSE METRICS: Total DLP (mGy-cm): 2.64 FINDINGS: Tubes, catheters and devices: Intraspinal nerve stimulator electrodes noted. Liver: Normal. No mass. Gallbladder and bile ducts: Normal. No calcified stones. No ductal dilation. Pancreas: Normal. No ductal dilation. Spleen: Normal. No splenomegaly. Adrenal glands: Normal. No mass. Kidneys and ureters: Normal. No hydronephrosis. Stomach and bowel: There are a few colonic diverticuli present but no evidence of diverticulitis. Appendix: No evidence of appendicitis. Intraperitoneal space: Unremarkable. No free air. No significant fluid collection. Vasculature: Mild atherosclerotic disease is evident. Incidental phleboliths noted. Lymph nodes: Unremarkable. No enlarged lymph nodes. Urinary bladder: Unremarkable as visualized. Reproductive: Unremarkable as visualized. Bones/joints: Spinal degenerative changes are evident. Facet joint degenerative changes are present. Multilevel degenerative disc disease is noted with vacuum phenomenon. Osteophytes are noted extending from the vertebrae. No acute spinal pathology is detected. Soft tissues: Unremarkable. CT/CT abdomen pelvis wo con [id number] IMPRESSION: No acute findings. Radiation Dose CTDIVOL = (mGy): DLP = 2.64 (mGy-cm)
[2021-01-26 06:53] LABS: Troponin 5 6HR 18.94 ng/L (0-10)
[2021-01-26 07:07] LABS: Basophils # 0.1 10^3/uL (0.0-0.1); Basophils % 0.2 %; Eosinophils # 0.2 10^3/uL (0.0-0.8); Eosinophils % 0.8 %; Hemoglobin 13.5 g/dL (11.5-15.3); Lymphocytes # 2.9 10^3/uL (0.8-4.8); Lymphocytes % 9.8 %; Mean Corpuscular Hemoglobin 22.9 pg (28.0-34.0); Mean Corpuscular Volume 76.4 fl (81-99); Mean Platelet Volume 9.5 fL (7.4-10.4); Monocytes # 2.1 10^3/uL (0.2-0.9); Neutrophils # 23.34 10^3/uL (1.8-7.7); Neutrophils % 79.3 %; Nucleated Red Blood Cells % 0 %; Platelet Count 387 10^3/cmm (130-400); Red Blood Count 5.89 10^6/uL (4.1-5.3); Red Cell Distribution Width 16.2 % (12.1-15.1); White Blood Count 29.4 10^3/uL (4.0-10.0)
[2021-01-26 07:25] LABS: D Dimer 0.64 ug/mIFEU (0-0.59)
[2021-01-26] MEDS: enoxaparin 40 mg/0.4 mL Syringe SUBCUT (07:37)
[2021-01-26 07:39] LABS: Procalcitonin 0.06 ng/mL (0-0.5); Thyroid Stimulating Hormone 1.03 uIU/mL (0.27-4.20)
[2021-01-26 07:43] LABS: Troponin 5 6HR Delta 4.94 ng/L (0-12)
[2021-01-26 07:50] LABS: Alanine Aminotransferase 25 U/L (0-33); Alkaline Phosphatase 99 IU/L (35-105); Anion Gap 18.5 (5-19); Aspartate Amino Transferase 10 U/L (0-32); Blood Urea Nitrogen 47 mg/dL (8-23); Calcium 9.9 mg/dL (8.5-10.5); Carbon Dioxide 27 mmol/L (22-29); Chloride 95 mmol/L (98-107); Globulin 2.4 g/dL (1.3-4.6); Glomerular Filtration Rate 34.5 mL/min (90-130); Glucose 127 mg/dL (65-115); Osmolality Calculated 298 mOsm/kg (285-295); Potassium 3.5 mmol/L (3.5-5.1); Sodium 137 mmol/L (136-145); Total Bilirubin 0.3 mg/dL (0.15-1.2); Total Protein 6.4 g/dL (6.6-8.7)
[2021-01-26 08:01] LABS: LAB Peripheral Smear Sent for Review
[2021-01-26] MEDS: amlodipine 5 mg Tablet PO (10:06)
[2021-01-26] MEDS: potassium chloride ER 10 mEq Tablet 20 MEQ PO (10:06)
[2021-01-26] MEDS: metoprolol tartrate 25 mg Tablet PO (10:06)
[2021-01-26] MEDS: fluconazole 100 mg Tablet 200 MG PO (10:06)
[2021-01-26] MEDS: pantoprazole DR 40 mg Tablet PO (10:06)
[2021-01-26] MEDS: bumetanide 1 mg Tablet PO (10:07)
--- NOTE | 2021-01-26 12:31 | CT_ITS ---
WS: [id number] CT HEAD TECHNIQUE: Noncontrast CT of the head obtained from the skullbase to the vertex. CLINICAL INFORMATION: pituatory micradenoma s/p surgery, now with leukocystosis COMPARISON: CT May 03, 2011 DLP: 1006.[address] scans at [facility] use at least one of these dose optimization techniques: automated e xposure control; mA and/or kV adjustment per patient size (includes targeted exams where dose is matc hed to clinical indication); or iterative reconstruction. FINDINGS: No evidence of intracranial hemorrhage or mass effect. Ventricular system and basal cisterns are reid nt. Moderate small vessel changes with moderate parenchymal volume loss. No extra-axial fluid collect ions. Reported recent history of transsphenoidal pituitary macroadenoma subtotal resection. Soft tiss ue thickening within the left aspect and dorsal sella along the cavernous sinus presumably due to res idual adenoma. Paranasal sinuses and mastoid air cells are otherwise well aerated. .Normal visualized soft tissues. CT/CT head wo con* [id number] IMPRESSION: 1. No evidence of intracranial hemorrhage or mass effect. 2. Moderate small vessel changes with moderate parenchymal volume loss. 3. 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 Suspect ed residual adenoma within the left aspect of the sella extending along the carlos sum sella and left cavernous sinus. Otherwise normal postoperative sella 4. No other significant findings.
[2021-01-26] MEDS: cloNIDine 0.1 mg Tablet PO (13:26)
[2021-01-26 15:16] LABS: C Reactive Protein 10.3 mg/L (0.0-4.9)
[2021-01-26] MEDS: hyDRALAzine 10 mg Tablet PO ×2 (15:19→21:24)
[2021-01-26 15:20] LABS: Monoscreen Negative (Negative)
[2021-01-26 15:23] LABS: Procalcitonin 0.06 ng/mL (0-0.5)
--- NOTE | 2021-01-26 16:06 | P.PN_ITS ---
Subjective Subjective: Interval history: Patient was seen this morning, she tells me that she continues to feel, some shortness of breath, no chest pain, no lightheadedness, dizziness, no nausea, no vomiting, she is quite better elevated blood pressure, worried about her elevated white blood cell count, she tells me that she had a history of a pituitary macro adenoma, she had her first surgery at [facility], however she had a reoccurrence and had a second surgery at [facility], she has been doing well since then, he tells me that she took 80 mg of Lasix yesterday, received 80 mg of Lasix IM at clinic, and she received 60 mg of Lasix in the emergency room, she also took Bumex this morning, Vitals/I&O/Wt Last Vital Signs Temp 97.2 F L 01/26/21 09:15 Pulse 80 01/26/21 10:30 Resp 21 H 01/26/21 10:30 BP 199/94 01/26/21 13:26 Pulse Ox 95 01/26/21 09:15 01/26/21 01/26/21 01/26/21 06:59 14:59 22:59 Intake Total 240 / 240 Output Total 1100 / 1100 Balance -1100 / -1100 240 / 240 Weight last 48 hrs Weight 154.221 kg Physical Exam Const: COMMON NORMALS: no acute distress and patient oriented x3 Resp: COMMON NORMALS: normal respiratory effort, No retractions, No use of accessory muscles and clear to auscultation bilaterally AUSCULTATION: clear to auscultation bilaterally Cardio: COMMON NORMALS: regular rate, regular rhythm, S1 normal heart sound present and S2 normal heart sound present RATE: regular rate RHYTHM: regular rhythm HEART SOUNDS: S1 normal heart sound present and S2 normal heart sound present GI: COMMON NORMALS: Normal to inspection, nondistended, normoactive bowel sounds present, Soft to palpation and non-tender PALPATION: Yes Soft to palpation Extremity: NARRATIVE EXTREMITY EXAM: 2+ pitting edema bilateral lower extremity Neuro: COMMON NORMALS: patient oriented x3 Psych: COMMON NORMALS: mental status grossly normal Data : 01/26/21 06:45 01/26/21 06:45 Micro: Microbiology 01/25/21 00:15 Blood Culture - Preliminary Blood SPECIMEN COLLECTED 01/25/21 00:00 Blood Culture - Preliminary Blood SPECIMEN COLLECTED A&P Assessment and plan (1) Dyspnea: Recent extensive work up negative for underlying cardiac etiology Echo Normal left ventricular size and systolic function, EF 69% . No regional wall motion abnormalities. BNP not significantly elevated. She does use 80 mg of Lasix daily, typically her edema and her dyspnea improved with Lasix EKG today withut acute ST-T wave changes, troponin not signifcantly elevated at 2 hrs CXR without acute findings, recent CT chest 01/20 with left atelactasis, no other abnormalities no changes in mentation to raise suspicion for meningoencephalitis saturating 97% on RA, recently discharged on 2 lpm Susect dyspnea may be related to obesity hypoventilation D-dimer 0.64 Has received 220 mg of Lasix with 1 mg of Bumex in the last 24 hours, hold diuretics for now Monitor creatinine, monitor urine output Status: Acute Qualifiers: Dyspnea type: dyspnea on exertion Qualified Code(s): R06.00 - Dyspnea, unspecified (2) Leukocytosis: Elevated to 31.3 today No focal signs or symptoms of infection evident at this time, however will need to exclude infectious causes in patient on chronic steroids. Does have a spinal stimulator in place UA negative, CXRX without acute infiltrates Check peripheral smear, ESR, CRP we will consider CT of the spine Blood cx 01/18 with CoNs, likely contaminant, however will repeat today given presence of spinal cord stimulator. 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 -Was on prednisone, but developed Covid and switched to Decadron, now switch to Decadron 1.5 mg daily -175 mg of levothyroxine Status: Acute (4) Hyperaldosteronism: -Continues to be hypertensive, add hydralazine, clonidine Status: Acute Attestations Medical Necessity Statement*: Patient requires hospitalization for edema, shortness of breath, persistent leukocytosis Coding Level of Care Code 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
[2021-01-26 16:08] LABS: LAB Peripheral Smear Sent for Review
[2021-01-26] MEDS: ondansetron 2 mg/ML SDV 2 mL 4 MG IVP ×2 (16:22→22:58)
[2021-01-26] MEDS: metoclopramide 5 mg/mL SDV 2 mL IVP (19:50)
[2021-01-26 20:25] LABS: Blood Urea Nitrogen 58 mg/dL (8-23); Calcium 9.1 mg/dL (8.5-10.5); Carbon Dioxide 22 mmol/L (22-29); Chloride 92 mmol/L (98-107); Glomerular Filtration Rate 22.2 mL/min (90-130); Glucose 108 mg/dL (65-115); Osmolality Calculated 291 mOsm/kg (285-295); Sodium 132 mmol/L (136-145)
[2021-01-26 20:42] LABS: Anion Gap 21.7 (5-19); Potassium 3.7 mmol/L (3.5-5.1)
[2021-01-26] MEDS: pramipexole 0.25 mg Tablet PO (21:24)
[2021-01-26] MEDS: duloxetine 30 mg Capsule 60 MG PO (21:25)
[2021-01-27] VITALS (8 sets, daily range): BP systolic 101–114; BP diastolic 53–84; PULSE 73–103; RESP 12–32; TEMP 36.6–36.7; O2SAT 90–100
--- NOTE | 2021-01-27 01:28 | PC.NURSE ---
patient had a friend bring in a salad from [employer] and since the salad patient has had nausea, vomiting, and diarrhea multiple times.
[2021-01-27 03:45] LABS: Basophils # 0.1 10^3/uL (0.0-0.1); Basophils % 0.4 %; Eosinophils # 0.4 10^3/uL (0.0-0.8); Eosinophils % 1.3 %; Hematocrit 42.9 % (37.0-47.0); Hemoglobin 12.7 g/dL (11.5-15.3); Lymphocytes # 3.4 10^3/uL (0.8-4.8); Lymphocytes % 10.2 %; Mean Corpuscular HGB Conc 29.6 g/dL (30.0-36.0); Mean Corpuscular Hemoglobin 23.2 pg (28.0-34.0); Mean Corpuscular Volume 78.4 fl (81-99); Mean Platelet Volume 10.1 fL (7.4-10.4); Monocytes # 2.2 10^3/uL (0.2-0.9); Monocytes % 6.5 %; Neutrophils # 26.27 10^3/uL (1.8-7.7); Neutrophils % 79.1 %; Nucleated Red Blood Cells % 0 %; Platelet Count 327 10^3/cmm (130-400); Red Blood Count 5.47 10^6/uL (4.1-5.3); Red Cell Distribution Width 16.3 % (12.1-15.1)
[2021-01-27] MEDS: metoclopramide 5 mg/mL SDV 2 mL IVP ×2 (03:53→21:29)
[2021-01-27 04:13] LABS: White Blood Count 33.2 10^3/uL (4.0-10.0)
[2021-01-27 04:17] LABS: Alanine Aminotransferase 22 U/L (0-33); Albumin Level 3.4 g/dL (3.5-5.2); Alkaline Phosphatase 86 IU/L (35-105); Aspartate Amino Transferase 12 U/L (0-32); Blood Urea Nitrogen 68 mg/dL (8-23); Calcium 9.4 mg/dL (8.5-10.5); Carbon Dioxide 26 mmol/L (22-29); Chloride 94 mmol/L (98-107); Globulin 2.4 g/dL (1.3-4.6); Glomerular Filtration Rate 20.1 mL/min (90-130); Glucose 112 mg/dL (65-115); Magnesium 2.1 mg/dL (1.7-2.3); Osmolality Calculated 303 mOsm/kg (285-295); Sodium 136 mmol/L (136-145); Total Bilirubin 0.5 mg/dL (0.15-1.2); Total Protein 5.8 g/dL (6.6-8.7)
--- NOTE | 2021-01-27 06:00 | USCV_ITS ---
Carolyn Alexander Age: 70 Gender: F : 1950 Exam Date: 01/27/2021 06:51 Ordering Phys: Jay Wright MD Technologist: Ximoy Guerra Exam Location: [facility] – [place], [place] Indication: BILATERAL LOWER EXTREMITY SWELLING HISTORY: Lower extremity swelling. PROCEDURES: Venous duplex imaging was performed in bilateral lower extremities. The following venous structures were evaluated: common femoral vein, profunda vein, proximal portion of the greater saphenous vein, superficial femoral vein, and the popliteal vein. In addition, the posterior tibial and peroneal trunk were evaluated. FINDINGS: Normal 2-D Doppler and augmentation and compressibility throughout the lower extremity venous structures. Additional imaging through the proximal calf veins also reveals no thrombus. Limited evaluation of the greater saphenous vein is patent with no thrombus.. CONCLUSIONS No evidence of right lower extremity DVT. No evidence of left lower extremity DVT. Fox Abad MD (Electronically Signed) Final Date: 27 January 2021 13:07 S
[2021-01-27] MEDS: enoxaparin 40 mg/0.4 mL Syringe SUBCUT (06:24)
[2021-01-27] MEDS: levothyroxine 175 mcg Tablet PO (06:24)
[2021-01-27] MEDS: oxybutynin 5 mg Tablet 20 MG PO (06:24)
--- NOTE | 2021-01-27 08:00 | PC.NURSE ---
Due to patients blood pressure, physician ordered to hold clonidine, amlodipine, and hydralazine. But to give metoprolol 25mg
--- NOTE | 2021-01-27 08:42 | US_ITS ---
WS: [id number] ULTRASOUND RENAL TECHNIQUE: Ultrasound examination of both kidneys. CLINICAL INFORMATION: be COMPARISON: None. FINDINGS: RIGHT: Right kidney is normal in size and appearance. Echogenicity: Normal. Cortical thickness: 1.9 cm; Normal. Hydronephrosis: None. Perinephric fluid: None. Right kidney measures: 10.2 cm x 5.9 cm x 5.4 cm. LEFT: Left kidney is normal in size and appearance. Echogenicity: Normal. Cortical thickness: 1.9 cm; Normal. Hydronephrosis: None. Perinephric fluid: None. Left kidney measures: 11.8 cm x 5.4 cm x 5.0 cm. Normal visualized aorta. Bladder is decompressed. US/US renal BI* [id number] IMPRESSION: Normal renal ultrasound
[2021-01-27] MEDS: potassium chloride ER 10 mEq Tablet 20 MEQ PO ×2 (09:26→18:25)
[2021-01-27] MEDS: metoprolol tartrate 25 mg Tablet PO ×2 (09:27→18:25)
[2021-01-27] MEDS: pantoprazole DR 40 mg Tablet PO (09:27)
--- NOTE | 2021-01-27 09:27 | PM.CONSULT ---
Providers/Reason For Consult Consulting Physician/Specialty*: kira breaux md / telenephrology Reason for Consult*: RODRIGUE Attending Physician: Jay Wright MD Primary Care Provider: Piedad Sandhu MD History of Present Illness History of Present Illness Carolyn Alexander is a 70 year old female recent admission 01-19-21 to 01/21/21 for MAOR, htn, tachycardia, leg edema,orthopnea. She had a normal echo- Echocardiogram showed normal ejection fraction, no regional wall motion of normalities, small pericardial effusion noted. No suggestion of pericarditis on EKG. She was treated w/ BP meds- diltiazem, metoprolol, and lasix- she improved and had a slight bump in cr to 1.4 mg/dl. she was discharged on po lasix and cr improved to 1 mg/dl. She had a recent course of abx in hospital. she was sent home for pulm eval and sleep studies. At home pt was weak, lethargic, had diarrhea and hypotension w/ leg edema. The pt saw her Doctor on 01-25-21 who sent her to ER for leukocytosis. the pt was admitted early 01/26/21-had 220 mgm iv lasix and bumex 1 mgm between 01/25/21 and 01/26/21. She developed RODRIUGE, oliguria, leg edema, palps. no sob at rest. Renal called for RODRIGUE Review of Systems General: Reports: 10 or more systems reviewed and unremarkable except in HPI and below Narrative: weak, swollen, diarrhea, leg edema, nausea, recent hypotension and bradycardia in the hospital. Meds/Allergies Home Medications and Allergies Home Medications Medication Instructions Recorded Confirmed Last Taken Type losartan 100 mg tablet 100 mg PO QAM 08/08/19 01/26/21 01/25/21 History pramipexole 0.125 mg tablet 0.25 mg PO BEDTIME tab 11/06/19 01/26/21 01/17/21 History epinephrine 0.3 mg/0.3 mL 0.3 mg IM Q10M PRN #2 ea 04/20/20 01/26/21 Unknown Rx injection, auto-injector clotrimazole-betamethasone 1 1 applic TOPICAL BID 28 Days #45 g 11/11/20 01/26/21 01/17/21 Rx %-0.05 % topical cream ibuprofen 800 mg tablet 800 mg PO BID tab 12/02/20 01/26/21 01/25/21 History cetirizine 10 mg tablet 10 mg PO QAM tab 01/04/21 01/26/21 01/25/21 History dexamethasone 1 mg tablet 2 mg PO QAM tab 01/04/21 01/26/21 01/25/21 History diltiazem HCl 30 mg tablet 30 mg PO TID #90 tab 01/04/21 01/26/21 01/25/21 Rx duloxetine 30 mg capsule,delayed 60 mg PO BEDTIME cap 01/04/21 01/26/21 01/17/21 History release potassium chloride 10 mEq 20 meq PO BID 90 Days #360 tab 01/18/21 01/26/21 01/25/21 Rx tablet,extended release Immune Vitamin C 1 tab PO DAILY 01/19/21 01/26/21 Unknown History Ozempic 0.25 mg SUBCUT Q7D 01/19/21 01/26/21 01/24/21 History Ozempic 0.5 mg SUBCUT .weekly 01/19/21 01/26/21 Unknown History Ozempic 1 mg SUBCUT .weekly 01/19/21 01/26/21 Unknown History allopurinol 100 mg PO DAILY PRN 01/19/21 01/26/21 Unknown History furosemide [Lasix] 40 mg PO BID 01/19/21 01/26/21 01/25/21 History levothyroxine 175 mcg PO QAM 01/19/21 01/26/21 01/25/21 History oxybutynin chloride 20 mg PO QAM 01/19/21 01/26/21 01/25/21 History amlodipine 5 mg PO DAILY #90 tab 01/21/21 01/26/21 01/25/21 Rx diabetic supplies, miscellan. #1 ea 01/21/21 01/26/21 Unknown Rx flash glucose scanning reader #1 ea 01/21/21 01/26/21 Unknown Rx flash glucose sensor #1 ea 01/21/21 01/26/21 Unknown Rx metoprolol tartrate 25 mg PO BID #180 tab 01/21/21 01/26/21 01/25/21 Rx blood-glucose meter,continuous #1 ea 01/25/21 01/26/21 Unknown Rx bumetanide 0.5 mg tablet 0.5 mg PO BID 30 Days #60 tab 01/25/21 01/26/21 Unknown Rx levofloxacin 750 mg tablet 750 mg PO DAILY 7 Days #7 tab 01/25/21 01/26/21 01/25/21 Rx fluconazole 150 mg PO Q7D 01/26/21 01/26/21 01/24/21 History omeprazole 40 mg PO DAILY 01/26/21 01/26/21 Unknown History Allergies Allergy/AdvReac Type Severity Reaction Status Date / Time acetaminophen [From Tylenol] Allergy ALGY-Hives Verified 01/25/21 15:10 azithromycin Allergy ALGY-Anaphy Verified 01/25/21 15:10 laxis benzocaine Allergy ALGY-Hives Verified 01/25/21 15:10 butamben [From Cetacaine] Allergy ALGY-Swell Verified 01/25/21 15:10 Lip/Tongue/Throat codeine Allergy ALGY-Hives Verified 01/25/21 15:10 fentanyl Allergy ALGY-Anaphy Verified 01/25/21 15:10 laxis hydrocodone [From Vicodin] Allergy ALGY-Hives Verified 01/25/21 15:10 hydromorphone [From Dilaudid] Allergy ADR-Vomitin Verified 01/25/21 15:10 g Iodinated Contrast Media Allergy ALGY-Anaphy Verified 01/25/21 15:10 laxis liothyronine Allergy ADR-Nausea Verified 01/25/21 15:10 meperidine [From Demerol] Allergy Unknown Verified 01/25/21 15:10 morphine Allergy ALGY-Anaphy Verified 01/25/21 15:10 laxis nitrofurantoin Allergy ALGY-Joint Verified 01/25/21 15:10 [From Macrobid] Pain oxycodone [From Percocet] Allergy ALGY-Hives Verified 01/25/21 15:10 penicillin V Allergy ALGY-Hives Verified 01/25/21 15:10 Penicillins Allergy Unknown Verified 01/25/21 15:10 Phenothiazines Allergy ALGY-Anaphy Verified 01/25/21 15:10 laxis pregabalin [From Lyrica] Allergy ADV-Weaknes Verified 01/25/21 15:10 s procaine Allergy ALGY-Hives Verified 01/25/21 15:10 prochlorperazine Allergy ALGY-Anaphy Verified 01/25/21 15:10 [From Compazine] laxis Sulfa (Sulfonamide Allergy Unknown Verified 01/25/21 15:10 Antibiotics) tetracaine [From Cetacaine] Allergy ALGY-Swell Verified 01/25/21 15:10 Lip/Tongue/Throat Current Medications Current Medications Generic Name Dose Route Start Last Admin Trade Name Freq PRN Reason Stop Dose Admin Amlodipine Besylate 10 mg 01/26/21 16:06 01/27/21 09:15 Amlodipine 5 Mg Tablet PO Not Given DAILY RAMIRO Clonidine HCl 0.1 mg 01/26/21 12:45 01/27/21 09:15 Clonidine 0.1 Mg Tablet PO Not Given BID RAMIRO Duloxetine HCl 60 mg 01/26/21 21:00 01/26/21 21:25 Duloxetine 30 Mg Capsule PO 60 mg BEDTIME RAMIRO Administration Enoxaparin Sodium 40 mg 01/26/21 06:45 01/27/21 06:24 Enoxaparin 40 Mg/0.4 Ml Syringe SUBCUT 40 mg Q24H RAMIRO Administration Fluconazole 200 mg 01/26/21 08:24 01/26/21 10:06 Fluconazole 100 Mg Tablet PO 200 mg Q7D RAMIRO Administration Hydralazine HCl 10 mg 01/26/21 15:05 01/27/21 09:15 Hydralazine 10 Mg Tablet PO Not Given TID [facility] Levothyroxine Sodium 175 mcg 01/27/21 06:00 01/27/21 06:24 Levothyroxine 175 Mcg Tablet PO 175 mcg QAM RAMIRO Administration Metoclopramide HCl 5 mg 01/26/21 18:04 01/27/21 03:53 Metoclopramide 5 Mg/Ml Sdv 2 Ml IVP 5 mg Q4H PRN Administration NAUSEA AND VOMITING Metoprolol Tartrate 25 mg 01/26/21 09:00 01/27/21 09:27 Metoprolol Tartrate 25 Mg Tablet PO 25 mg BID RAMIRO Administration Non-Formulary Medication 2 mg 01/27/21 06:00 01/27/21 06:50 Dexamethasone PO Not Given QAM RAMIRO Ondansetron HCl 4 mg 01/26/21 16:09 01/26/21 22:58 Ondansetron 2 Mg/Ml Sdv 2 Ml IVP 4 mg Q6H PRN Administration NAUSEA AND VOMITING Oxybutynin Chloride 20 mg 01/27/21 06:00 01/27/21 06:24 Oxybutynin 5 Mg Tablet PO 20 mg QAM RAMIRO Administration Pantoprazole Sodium 40 mg 01/26/21 09:00 01/27/21 09:[address] 40 Mg Tablet PO 40 mg DAILY RAMIRO Administration Potassium Chloride 20 meq 01/26/21 09:00 01/27/21 09:26 Potassium Chloride Er 10 Meq Tablet PO 20 meq BID RAMIRO Administration Pramipexole Dihydrochloride 0.25 mg 01/26/21 21:00 01/26/21 21:24 Pramipexole 0.25 Mg Tablet PO 0.25 mg BEDTIME RAMIRO Administration PFSH Acute PFSH: Medical History (Updated 01/26/21 @ 16:15 by Jay Wright MD) Adrenal insufficiency Benign essential hypertension with target blood pressure below 140/90 Central hypothyroidism CHF (congestive heart failure) Chronic back pain Follows at pain clinic for periodic injections COVID-19 (~09/2020) Edema Facet arthritis, degenerative, lumbar spine History of anaphylaxis History of atrial fibrillation Intermittent, has not required long-term anticoagulation or focused treatment History of COVID-19 HTN (hypertension) Hyperaldosteronism 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 Mother Cancer Lung disease Grandfather Cancer Grandmother Dementia Denies family history of Diabetes CAD (coronary artery disease) Clotting disorder Chronic kidney disease (CKD) Suicide Anesthesia complication Bleeding disorder Stroke Social History Smoking and tobacco status: never smoked Second hand smoke exposure: No Alcohol intake: never Caregiver/support person: Yes Lives independently: Yes Household members: spouse Marital status: service: No Current occupational status: retired Current gender identity: Female Female Reproductive History: Date of last menstrual period: 01/22/21 Vitals/I&O/Wt Last Vital Signs Temp 98.1 F 01/27/21 04:00 Pulse 92 01/27/21 04:00 Resp 17 01/27/21 04:00 BP 110/82 01/27/21 06:33 Pulse Ox 93 01/27/21 04:00 01/26/21 01/27/21 01/27/21 22:59 06:59 14:59 Intake Total 500 / 740 240 / 980 Output Total 250 / 250 Balance 250 / 490 240 / 730 Weight last 48 hrs Weight 160.254 kg Weight 154.221 kg Physical Exam Narrative: EXAM NARRATIVE: obese in bed, uncomfortable, NARD vs noted heent- nc/at, eomi neck obese lungs clear bases heart irreg, tachy at timese, + s1 s2 abd soft, mild tenderness, high pitched BS ext b/l 2+ edema neuro- a,a, o x 2+ exam by RN- telehealth visit Data Micro: Micro: Microbiology 01/25/21 00:15 Blood Culture - Pr eliminary Blood NEGATIVE TO ESTRELLITA E 01/25/21 00:00 Blood Culture - Pr eliminary Blood NEGATIVE TO ESTRELLITA E A&P Additional A&P Information 80 yr old female h/o COVID- 19 pna in september 2020, obesity, helms-hypopituitry s/p removal of pituitary tumor x 2. h/o paroxysmal a fib. -recent admission for edema and SOB, techycardia- felt to be due to diastolic dysfunction. Pt is s/p diuresis and beta- isaiah w/ CCB and NSAID. Pt developed diarrea, lrukpcytosis, hypotension, RODRIGUE, and edema. 1. RODRIGUE- no hydronephrosis on imaging -likely ATN vs prerenal azotemia q of AIN ( recent ABX) -u/a 1+ blood, 5-10 rbc, 0-4 wbc- no proteinuria -check ur lytes -agree w/ holding lasix -give ivf if okay w/ medicine and cardiology 2. diarrhea and leukocytosis- send stool for c diff 3. hypokalemia from diarrhea 4. hypotension- dec bp meds 5. panhyopit- steroids per medicine 6. check venous doppler meds reviewed- dose for GFR <!0 seen and examined w/ rN- telehealth visit time spent 55 min informed consent for telehealth obtained from pt. Consult Attestations Medical Necessity Statement: diarrhea, leukocytosis, RODRIGUE Time Spent in Patient Care: Greater than 35 minutes (>than 50% of time spent in counselling and/or direct pt care on unit). Coding Level of Care Code Acute Paid Search Manager for Duarte Molina
--- NOTE | 2021-01-27 09:43 | PC.CHAP ---
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 motorcycle designer visit [] Patient/Family/Request visit [] Outpatient visit [] Follow-up visit [] Physician referral [] Code/Alert [x] Routine visit [] Staff referral [] Actively dying [] Patient sleeping [x] Family support [] [] Out of room [] Palliative care [] [x] Receiving care in room [] Pre-surgical visit [] Trauma [] Long length of stay [] ICU visit [] Other: Relational/Emotional Strength [] Patient feels connected with others/family/visitors/staff [] Distress [] Loneliness/isolation [] Abandonment Spirituality of Patient [] Person of [place] [] Attends [employer] of their [place] [] Believes in Prayer [] Reads Bible or Church materials [] There are Spiritual issues to be addressed Mems Device Scientist Interventions [x] Prayer [] Active listening [] Non-anxious presence [] Spiritual/emotional support [] Crisis/trauma care [] Spiritual counseling [] Bereavement support [] Provided bereavement packet [] Provided Bible/devotional materials [] Provided toy/stuffed animal, coloring book to patient or family member [] Provided Communion [] Anointing/[place] [] Salvation [x] Completed spiritual assessment [] Other: Impact on Illness or Injury [] Angry [] Fearful [] Anxious [] Often cries [] Exhaustion [] Unable to work [] Unable to attend scientology [] Unable to walk/stand [] Unable to read [] Unable to drive [] Unable to eat/drink [] Unable to sleep [] Unable to be with family [] Patient intubated [] Other: Summary Time spent with patient
[2021-01-27] MEDS: lactated ringers 1,000 ML 100 ML IV ×2 (10:50→21:27)
[2021-01-27] MEDS: ondansetron 2 mg/ML SDV 2 mL 4 MG IVP (10:56)
[2021-01-27 11:23] LABS: Hepatitis C Virus Antibody Non-Reactive (Nonreactive)
[2021-01-27 11:47] LABS: Creatine Phosphokinase 74 U/L (26-192)
[2021-01-27 13:28] LABS: Cytomegalovirus Antibody (IGG) <0.60 U/mL; Cytomegalovirus Antibody (IGM) <30.00 AU/mL
[2021-01-27 13:52] LABS: EBV IGG TEST >750.00 U/mL; EBV IGM TEST <36.00 U/mL
[2021-01-27 13:58] LABS: COMPLEMENT, TOTAL (CH50) 52 U/mL (31-60)
--- NOTE | 2021-01-27 14:22 | PM.PN ---
Subjective Subjective: Interval history: Patient was seen this morning, she tells me that she was nauseous yesterday, she also had episodes of diarrhea, just has not been feeling well overnight, no fevers, no chills, no lightheadedness, no dizziness, Vitals/I&O/Wt Last Vital Signs Temp 98.1 F 01/27/21 04:00 Pulse 94 01/27/21 10:00 Resp 21 H 01/27/21 10:00 BP 114/70 01/27/21 10:00 Pulse Ox 100 01/27/21 10:00 01/26/21 01/27/21 01/27/21 22:59 06:59 14:59 Intake Total 500 / 740 240 / 980 118 / 118 Output Total 250 / 250 100 / 100 Balance 250 / 490 240 / 730 Weight last 48 hrs Weight 160.254 kg Weight 154.221 kg Physical Exam Const: COMMON NORMALS: no acute distress and patient oriented x3 Resp: COMMON NORMALS: normal respiratory effort, No retractions, No use of accessory muscles and clear to auscultation bilaterally AUSCULTATION: clear to auscultation bilaterally Cardio: COMMON NORMALS: regular rate, regular rhythm, S1 normal heart sound present and S2 normal heart sound present RATE: regular rate RHYTHM: regular rhythm HEART SOUNDS: S1 normal heart sound present and S2 normal heart sound present GI: COMMON NORMALS: Normal to inspection, nondistended, normoactive bowel sounds present and Soft to palpation PALPATION: Yes Soft to palpation Extremity: COMMON NORMALS: no pedal edema Neuro: COMMON NORMALS: patient oriented x3 Psych: COMMON NORMALS: mental status grossly normal Data : 01/27/21 02:55 01/27/21 02:55 Micro: Microbiology 01/26/21 20:30 Stool Lactoferrin - Final Stool Occult Blood (FIT) - Final 01/25/21 00:15 Blood Culture - Preliminary Blood NEGATIVE TO DATE 01/25/21 00:00 Blood Culture - Preliminary Blood NEGATIVE TO DATE A&P Assessment and plan (1) Dyspnea: Recent extensive work up negative for underlying cardiac etiology Echo Normal left ventricular size and systolic function, EF 69% . No regional wall motion abnormalities. BNP not significantly elevated. She does use 80 mg of Lasix daily, typically her edema and her dyspnea improved with Lasix EKG today withut acute ST-T wave changes, troponin not signifcantly elevated, no significant delta troponin CXR without acute findings, recent CT chest 01/20 with left atelactasis, no other abnormalities no changes in mentation to raise suspicion for meningoencephalitis saturating in the high 90s on room air, recently discharged on 2 lpm Susect dyspnea may be related to obesity hypoventilation D-dimer 0.64 Has received 220 mg of Lasix with 1 mg of Bumex in the last 24 hours, hold diuretics for now, nonpitting edema Monitor creatinine, monitor urine output Status: Acute Qualifiers: Dyspnea type: dyspnea on exertion Qualified Code(s): R06.00 - Dyspnea, unspecified (2) Leukocytosis: Elevated to 33.2 today No focal signs or symptoms of infection evident at this time, however will need to exclude infectious causes in patient on chronic steroids. Does have a spinal stimulator in place UA negative, CXR without acute infiltrates CMP within normal limits No acute EBV Hepatitis C nonreactive Lyme, Bartonella pending Lupus titer pending TSH within normal limits Peripheral smear pending BCR able pending Stool studies pending Check peripheral smear, ESR 14, CRP 16.1, pro-Reece 0.06 Blood cx 01/18 with CoNs, likely contaminant, repeat blood cultures within normal and so far CT abdomen pelvis no acute findings -We will do CT scan of the lumbar spine -Lower extremity venous ultrasound within normal limits -Renal ultrasound within normal limits Status: Acute Qualifiers: Leukocytosis type: unspecified Qualified Code(s): D72.829 - Elevated white blood cell count, unspecified (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 No evidence of intracranial hemorrhage or mass effect. 2. Moderate small vessel changes with moderate parenchymal volume loss. 3. 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 Suspected residual adenoma within the left aspect of the sella extending along the dorsum sella and left cavernous sinus. Otherwise normal postoperative sella 4. No other significant findings. Status: Acute (4) Hyperaldosteronism: -Continues to be hypertensive, add hydralazine, clonidine Status: Acute (5) Acute kidney injury: -Secondary to diuretic therapy -Creatinine up to 2.4, monitor urine output closely -Start gentle IV hydration -Nephrology consulted Status: Acute Attestations Medical Necessity Statement*: Patient requires hospitalization for dyspnea, leukocytosis, RODRIGUE, inpatient, greater than 2 midnights Coding Level of Care Code Acute Chartered Wealth Manager for Duarte Molina Diagnoses Dyspnea R06.00 Dyspnea type: dyspnea on exertion Leukocytosis D72.829 Leukocytosis type: unspecified 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
--- NOTE | 2021-01-27 14:30 | CTR_ITS ---
PROCEDURE INFORMATION: Exam: CT Lumbar Spine Without Contrast Exam date and time: 01/27/2021 2:30 PM Age: 70 years old Clinical indication: Abnormal findings; Abnormal lab test; Other; Elevated wbc; Prior surgery; Additional info: Spinal stimulator, wbc 33.2 TECHNIQUE: Imaging protocol: Computed tomography images of the lumbar spine without contrast. Radiation optimization: All CT scans at this facility use at least one of these dose optimization techniques: automated exposure control; mA and/or kV adjustment per patient size (includes targeted exams where dose is matched to clinical indication); or iterative reconstruction. COMPARISON: CT abdomen pelvis wo con [id number] 01/26/2021 6:56 AM RADIATION DOSE METRICS: Total DLP (mGy-cm): 2524.46 FINDINGS: Tubes, catheters and devices: Right cited stimulator with leads entering the posterior thoracic spinal canal at the T11-12 level. Vertebrae: The vertebral body stature is intact. No fracture or subluxation. Mild degenerative endplate changes with anterior spurring at all lumbar levels. The facets are intact with degenerative changes. L1-L2: Disc space narrowing with mild disc bulge. Mild left foraminal stenosis. No right foraminal or central canal stenosis. L2-L3: Mild disc bulge. Mild bilateral foraminal stenosis. No central canal stenosis. L3-L4: Small disc bulge. Mild bilateral foraminal stenosis. No central canal stenosis. L4-L5: Mild circumferential disc bulge. Disc space narrowing. Hypertrophic degenerative facets. Severe left and moderate right foraminal stenosis. Mild-moderate central canal stenosis. L5-S1: Mild disc bulge. Mild right foraminal stenosis. No left foraminal or central canal stenosis. Soft tissues: Mild subcutaneous soft tissue edema or stranding in the posterior mid lumbar region. CT/CT lumbar spine wo con* [id number] IMPRESSION: 1. No fracture or acute finding. 2. Multilevel degenerative changes as described. Radiation Dose CTDIVOL = (mGy): DLP = 2524.46 (mGy-cm)
[2021-01-27 15:21] LABS: Potassium, Radom Urine 58 mmol/L; Urine Protein Random 10 mg/dL
[2021-01-27 15:29] LABS: Urine Random Sodium 10 mmol/L
[2021-01-27 15:32] LABS: Urine Random Chloride 10 mmol/L
[2021-01-27 15:49] LABS: Lactate Dehydrogenase 288 U/L (135-214); Uric Acid 10.8 mg/dL (2.4-5.7)
--- NOTE | 2021-01-27 16:16 | PC.NURSE ---
Physician ordered to have bell placed due to increased kidney failure
[2021-01-27 16:19] LABS: COMPLEMENT COMPONENT C3C 165 mg/dL (83-193); COMPLEMENT COMPONENT C4C 19 mg/dL (15-57)
--- NOTE | 2021-01-27 19:20 | PC.NURSE ---
Physician approved to stay overnight.
[2021-01-27 21:17] LABS: Creatinine Urine, Random 73 mg/dL (28-217)
[2021-01-27] MEDS: duloxetine 30 mg Capsule 60 MG PO (21:28)
[2021-01-27] MEDS: pramipexole 0.25 mg Tablet PO (21:28)
[2021-01-27 21:30] LABS: Microalbum Creatinine Ratio Ur 14 mg/dL (0-20); Microalbumin Random Urine 1 ug/dL (0-20)
[2021-01-27 23:16] LABS: Urea Nitrogen,Urine Random 515 mg/dL
[2021-01-28] VITALS (7 sets, daily range): BP systolic 100–154; BP diastolic 62–91; PULSE 70–100; RESP 17–22; TEMP 36.5–37.1; O2SAT 91–97
[2021-01-28 04:59] LABS: Basophils # 0.1 10^3/uL (0.0-0.1); Basophils % 0.4 %; Eosinophils # 0.5 10^3/uL (0.0-0.8); Hematocrit 37.8 % (37.0-47.0); Hemoglobin 11.4 g/dL (11.5-15.3); Lymphocytes # 2.6 10^3/uL (0.8-4.8); Lymphocytes % 10.9 %; Mean Corpuscular HGB Conc 30.2 g/dL (30.0-36.0); Mean Corpuscular Hemoglobin 22.8 pg (28.0-34.0); Mean Corpuscular Volume 75.4 fl (81-99); Monocytes # 1.7 10^3/uL (0.2-0.9); Monocytes % 6.9 %; Neutrophils % 77.4 %; Nucleated Red Blood Cells % 0 %; Platelet Count 295 10^3/cmm (130-400); Red Blood Count 5.01 10^6/uL (4.1-5.3); Red Cell Distribution Width 15.9 % (12.1-15.1); White Blood Count 23.9 10^3/uL (4.0-10.0)
[2021-01-28 05:19] LABS: Alanine Aminotransferase 21 U/L (0-33); Alkaline Phosphatase 76 IU/L (35-105); Anion Gap 12.8 (5-19); Aspartate Amino Transferase 12 U/L (0-32); Blood Urea Nitrogen 45 mg/dL (8-23); Calcium 8.6 mg/dL (8.5-10.5); Carbon Dioxide 25 mmol/L (22-29); Chloride 97 mmol/L (98-107); Globulin 2.5 g/dL (1.3-4.6); Glomerular Filtration Rate 32.1 mL/min (90-130); Glucose 145 mg/dL (65-115); Magnesium 2.1 mg/dL (1.7-2.3); Osmolality Calculated 288 mOsm/kg (285-295); Phosphorus 2.8 mg/dL (2.5-4.5); Sodium 132 mmol/L (136-145); Total Bilirubin 0.6 mg/dL (0.15-1.2); Total Protein 5.5 g/dL (6.6-8.7); Uric Acid 10.4 mg/dL (2.4-5.7)
[2021-01-28 05:27] LABS: Potassium 2.8 mmol/L (3.5-5.1)
--- NOTE | 2021-01-28 05:34 | PC.NURSE ---
Around 0530: Received critical lab results, potassium 2.8. Notified Dr. Bhatti, Hospitalist. Orders received, see MAY.
[2021-01-28] MEDS: potassium chloride ER 20 mEq Tablet PO ×2 (06:05→08:49)
[2021-01-28] MEDS: oxybutynin 5 mg Tablet 20 MG PO (06:07)
[2021-01-28] MEDS: lactated ringers 1,000 ML 100 ML IV (06:08)
[2021-01-28] MEDS: levothyroxine 175 mcg Tablet PO (06:08)
[2021-01-28] MEDS: enoxaparin 40 mg/0.4 mL Syringe SUBCUT (06:09)
[2021-01-28] MEDS: dexamethasone 4 mg Tablet 2 MG PO (06:24)
--- NOTE | 2021-01-28 08:19 | PC.NURSE ---
Physician orders to hold metoprolol and clonidine this morning. Also ordered to give patient 40meq potassium for potassium level of 2.8
[2021-01-28] MEDS: potassium chloride ER 10 mEq Tablet 20 MEQ PO ×2 (08:49→19:04)
[2021-01-28] MEDS: pantoprazole DR 40 mg Tablet PO (08:50)
--- NOTE | 2021-01-28 09:44 | PM.PN ---
Subjective Subjective: Interval history: Carolyn was seen and examined this morning. She is feeling considerably better today. She still has some extremity edema. Passing urine via Zurita catheter. Eating and drinking quite normally. She has been on IV fluid. Vitals/I&O/Wt Last Vital Signs Temp 98 F 01/28/21 03:35 Pulse 70 01/28/21 05:26 Resp 17 01/28/21 03:35 BP 100/65 01/28/21 03:35 Pulse Ox 97 01/28/21 03:35 01/27/21 01/28/21 01/28/21 22:59 06:59 14:59 Intake Total 1100 / 1218 1018.333 / 2236.333 Output Total 450 / 550 700 / 1250 Balance 650 / 668 318.333 / 986.333 Weight last 48 hrs Weight 159.665 kg Weight 160.254 kg Physical Exam Narrative: EXAM NARRATIVE: Constitutional: Awake, comfortable HEENT: Wet mucosa, no jvp, non icteric Lungs: Bilaterally clear without discernible wheeze, rales in all lung zones CVS: S1 S2, no murmurs Abdo: Soft, BS ok Ext 4: 2-3+ edema, peripheral perfusion with no cyanosis Neurological: Grossly non-focal Urinary Catheter Management^: Zurita: Cath Placed During This Visit: yes Reason for Continuing Indwelling Catheter: Accurate Measurement of Urinary Output in Critically Ill Patients Urinary Catheter Date of Insertion: 01/27/21 Urinary Catheter Time of Insertion: 13:30 Data : 01/28/21 04:34 01/28/21 04:34 Micro: Microbiology 01/26/21 20:30 Stool Lactoferrin - Final Stool Enteric Pathogens (PCR) - Final C.difficile Toxin B Gene (PCR) - Final Occult Blood (FIT) - Final A&P Additional A&P Information 1. Acute kidney injury Likely to be prerenal azotemia from intra vascular volume depletion from diuretic therapy. Renal function continues to improve now the diuretics are on hold and she received intravenous fluid Okay to DC both IV fluids and Zurita catheter Avoid usual nephrotoxic agents Strict I's and O's 2. Extremity edema Consistent with right-sided heart failure. Of note recent echocardiogram performed last month demonstrated normal ejection fraction, however, her right side was not clearly visualized hence pulmonary pressures were not measured. I have a strong suspicion of obesity related hypoventilation, untreated sleep apnea, pulmonary hypertension etc. causing the lower extremity edema hence no amount of diuretics are going to help to improve this. Currently has a CPAP machine was on recall and I have encouraged her to have this figured out. 3. Potassium replacement. Okay for discharge from my perspective. Eddie Villalta MD Nephrology [phone] Patient seen and examined via telemedicine, with the assistance of the bedside RN > 25 min spent in evaluation and mgmt of patient Attestations Medical Necessity Statement*: Eval for RODRIGUE Coding Level of Care Code Acute Dishwashing Machine Operator for Duarte Molina
[2021-01-28 10:29] LABS: PROTEIN, TOTAL 6.4 g/dL (6.1-8.1)
[2021-01-28] MEDS: potassium chloride ER 20 mEq Tablet 40 MEQ PO (12:27)
[2021-01-28 12:42] LABS: Creatinine, Random Urine 118 mg/dL (20-275); Protein, Total, Random 16 mg/dL (5-24); Protein/Creatinine Ratio 0.136 (0.021-0.161); Protein/Creatinine Ratio 136 mg/g creat (21-161)
[2021-01-28 13:33] LABS: ALBUMIN 3.4 g/dL (3.8-4.8); ALPHA 1 GLOBULIN 0.4 g/dL (0.2-0.3); BETA 1 GLOBULIN 0.5 g/dL (0.4-0.6); BETA 2 GLOBULIN 0.3 g/dL (0.2-0.5); GAMMA GLOBULIN 0.7 g/dL (0.8-1.7)
--- NOTE | 2021-01-28 14:29 | PM.PN ---
Subjective Subjective: Interval history: Patient was seen this morning, no fevers, no chills, nausea, vomiting, no lightheadedness, no dizziness Vitals/I&O/Wt Last Vital Signs Temp 98.7 F 01/28/21 09:43 Pulse 75 01/28/21 12:31 Resp 18 01/28/21 12:31 BP 129/91 01/28/21 12:31 Pulse Ox 95 01/28/21 12:31 01/27/21 01/28/21 01/28/21 22:59 06:59 14:59 Intake Total 1100 / 1218 1018.333 / 2236.333 250 / 250 Output Total 450 / 550 700 / 1250 1050 / 1050 Balance 650 / 668 318.333 / 986.333 -800 / -800 Weight last 48 hrs Weight 159.665 kg Weight 160.254 kg Physical Exam Const: COMMON NORMALS: no acute distress and patient oriented x3 Resp: COMMON NORMALS: normal respiratory effort, No retractions, No use of accessory muscles and clear to auscultation bilaterally AUSCULTATION: clear to auscultation bilaterally Cardio: COMMON NORMALS: regular rate, regular rhythm, S1 normal heart sound present and S2 normal heart sound present RATE: regular rate RHYTHM: regular rhythm HEART SOUNDS: S1 normal heart sound present and S2 normal heart sound present GI: COMMON NORMALS: Normal to inspection, nondistended, normoactive bowel sounds present, Soft to palpation and non-tender PALPATION: Yes Soft to palpation Extremity: COMMON NORMALS: no pedal edema Neuro: COMMON NORMALS: patient oriented x3 Psych: COMMON NORMALS: mental status grossly normal Urinary Catheter Management^: Zurita: Cath Placed During This Visit: yes, but has since been removed by the nurse Reason for Continuing Indwelling Catheter: Not indwelling catheter Urinary Catheter Date of Insertion: 01/27/21 Urinary Catheter Time of Insertion: 13:30 Date Urinary Catheter Removed: 01/28/21 Time Urinary Catheter Discontinued: 11:30 Data : 01/28/21 04:34 01/28/21 04:34 Micro: Microbiology 01/26/21 20:30 Stool Lactoferrin - Final Stool Enteric Pathogens (PCR) - Final C.difficile Toxin B Gene (PCR) - Final Occult Blood (FIT) - Final A&P Assessment and plan (1) Dyspnea: Recent extensive work up negative for underlying cardiac etiology Echo Normal left ventricular size and systolic function, EF 69% . No regional wall motion abnormalities. BNP not significantly elevated. She does use 80 mg of Lasix daily, typically her edema and her dyspnea improved with Lasix EKG today withut acute ST-T wave changes, troponin not signifcantly elevated, no significant delta troponin CXR without acute findings, recent CT chest 01/20 with left atelactasis, no other abnormalities no changes in mentation to raise suspicion for meningoencephalitis saturating in the high 90s on room air, recently discharged on 2 lpm Susect dyspnea may be related to obesity hypoventilation D-dimer 0.64 Has received 220 mg of Lasix with 1 mg of Bumex in the last 24 hours, hold diuretics for now, nonpitting edema Monitor creatinine, monitor urine output Status: Acute Qualifiers: Dyspnea type: dyspnea on exertion Qualified Code(s): R06.00 - Dyspnea, unspecified (2) Leukocytosis: Elevated to 23.9 No focal signs or symptoms of infection evident at this time, however will need to exclude infectious causes in patient on chronic steroids. Does have a spinal stimulator in place UA negative, CXR without acute infiltrates CMP within normal limits No acute EBV Hepatitis C nonreactive Lyme, Bartonella pending Lupus titer pending TSH within normal limits Peripheral smear pending BCR able pending Stool studies pending Check peripheral smear, ESR 14, CRP 16.1, pro-Reece 0.06 Blood cx 01/18 with CoNs, likely contaminant, repeat blood cultures within normal and so far CT abdomen pelvis no acute findings -CT of the lumbar spine no acute findings -Lower extremity venous ultrasound within normal limits -Renal ultrasound within normal limits -We will do a tagged white blood cell scan Status: Acute Qualifiers: Leukocytosis type: unspecified Qualified Code(s): D72.829 - Elevated white blood cell count, unspecified (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 No evidence of intracranial hemorrhage or mass effect. 2. Moderate small vessel changes with moderate parenchymal volume loss. 3. 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 Suspected residual adenoma within the left aspect of the sella extending along the dorsum sella and left cavernous sinus. Otherwise normal postoperative sella 4. No other significant findings. 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
[2021-01-28 14:54] LABS: Anti-streptolysin O <50 IU/mL (<200)
[2021-01-28 16:17] LABS: Osmolality Urine 475 mOsm/kg (50-1200)
[2021-01-28 16:28] LABS: CENTROMERE B ANTIBODY <1.0 NEG AI (<1.0 NEG); JO-1 ANTIBODY <1.0 NEG AI (<1.0 NEG); RNP ANTIBODY <1.0 NEG AI (<1.0 NEG); SCL-70 ANTIBODY <1.0 NEG AI (<1.0 NEG); SJOGREN'S ANTIBODY (SS-A) <1.0 NEG AI (<1.0 NEG); SM ANTIBODY <1.0 NEG AI (<1.0 NEG); SS-B <1.0 NEG AI (<1.0 NEG)
[2021-01-28 17:17] LABS: THYROID PEROXIDASE ANTIBODIES 38 IU/mL (<9)
[2021-01-28] MEDS: cloNIDine 0.1 mg Tablet PO (19:03)
[2021-01-28] MEDS: metoprolol tartrate 25 mg Tablet PO (19:04)
[2021-01-28] MEDS: duloxetine 30 mg Capsule 60 MG PO (20:21)
[2021-01-28] MEDS: pramipexole 0.25 mg Tablet PO (20:21)
[2021-01-29] VITALS (8 sets, daily range): BP systolic 117–139; BP diastolic 57–89; PULSE 61–79; RESP 16–24; TEMP 36.9–37.2; O2SAT 93–100
[2021-01-29] MEDS: levothyroxine 175 mcg Tablet PO (05:06)
[2021-01-29] MEDS: dexamethasone 4 mg Tablet 2 MG PO (05:06)
[2021-01-29] MEDS: oxybutynin 5 mg Tablet 20 MG PO (05:07)
[2021-01-29 06:52] LABS: Basophils # 0.1 10^3/uL (0.0-0.1); Basophils % 0.3 %; Eosinophils # 0.2 10^3/uL (0.0-0.8); Hemoglobin 11.2 g/dL (11.5-15.3); Lymphocytes # 1.4 10^3/uL (0.8-4.8); Lymphocytes % 6.5 %; Mean Corpuscular HGB Conc 30.3 g/dL (30.0-36.0); Mean Corpuscular Hemoglobin 23.4 pg (28.0-34.0); Mean Corpuscular Volume 77.2 fl (81-99); Mean Platelet Volume 10.3 fL (7.4-10.4); Monocytes # 1.3 10^3/uL (0.2-0.9); Neutrophils # 18.07 10^3/uL (1.8-7.7); Neutrophils % 83.7 %; Nucleated Red Blood Cells % 0 %; Platelet Count 262 10^3/cmm (130-400); Red Blood Count 4.79 10^6/uL (4.1-5.3); White Blood Count 21.6 10^3/uL (4.0-10.0)
[2021-01-29] MEDS: enoxaparin 40 mg/0.4 mL Syringe SUBCUT (06:59)
[2021-01-29 07:07] LABS: Alanine Aminotransferase 24 U/L (0-33); Albumin Level 3.5 g/dL (3.5-5.2); Alkaline Phosphatase 107 IU/L (35-105); Anion Gap 14.2 (5-19); Aspartate Amino Transferase 12 U/L (0-32); Blood Urea Nitrogen 27 mg/dL (8-23); Calcium 8.8 mg/dL (8.5-10.5); Carbon Dioxide 25 mmol/L (22-29); Chloride 101 mmol/L (98-107); Globulin 2.7 g/dL (1.3-4.6); Glomerular Filtration Rate 62.3 mL/min (90-130); Glucose 144 mg/dL (65-115); Magnesium 2.1 mg/dL (1.7-2.3); Osmolality Calculated 290 mOsm/kg (285-295); Phosphorus 1.5 mg/dL (2.5-4.5); Potassium 4.2 mmol/L (3.5-5.1); Sodium 136 mmol/L (136-145); Total Bilirubin 0.4 mg/dL (0.15-1.2); Total Protein 6.2 g/dL (6.6-8.7)
[2021-01-29] MEDS: metoprolol tartrate 25 mg Tablet PO (08:27)
[2021-01-29] MEDS: cloNIDine 0.1 mg Tablet PO (08:28)
[2021-01-29] MEDS: pantoprazole DR 40 mg Tablet PO (08:28)
[2021-01-29] MEDS: potassium chloride ER 10 mEq Tablet 20 MEQ PO (08:28)
[2021-01-29 08:52] LABS: Albumin,Urine Random 0 %; Alpha-1-Globulins Urine Random 0 %; Alpha-2-Globulins Urine Random 0 %; Beta-Globulin,Urine Random 0 %; Gamma Globulin,Urine Random 0 %
--- NOTE | 2021-01-29 08:58 | NM_ITS ---
WS: [id number] NUCLEAR MEDICINE TAGGED WHITE BLOOD CELL SCAN HISTORY: Leukocytosis, no fever. COMPARISON: None available. TECHNIQUE: 18.2 mCi of TC 99m Ceretec tagged white blood cells are injected intravenously. Whole body imaging is performed in the anterior and posterior planes. Whole body imaging is performed in the an terior and posterior planes obtained. Normal rate tracer uptake throughout the soft tissues, liver and spleen. There is minimal increased u ptake at the RIGHT shoulder. Patient has had prior surgery on the RIGHT shoulder. There is no focal a [place] of increased activity or uptake to suggest infection. NM/NM CERETEC WBC scan* [id number] IMPRESSION: 1. No focal uptake to suggest infectious process. 2. Minimal uptake at the RIGHT shoulder is probably related to prior surgery.
--- NOTE | 2021-01-29 09:48 | PC.CHAP ---
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 trauma coordinator visit [] Patient/Family/Request visit [] Outpatient visit [] Follow-up visit [] Physician referral [] Code/Alert [x] Routine visit [] Staff referral [] Actively dying [] Patient sleeping [x] Family support [] [] Out of room [] Palliative care [] [] Receiving care in room [] Pre-surgical visit [] Trauma [] Long length of stay [] ICU visit [] Other: Relational/Emotional Strength [] Patient feels connected with others/family/visitors/staff [] Distress [] Loneliness/isolation [] Abandonment Spirituality of Patient [x] Person of [place] [x] Attends Judaism of their [place] [x] Believes in Prayer [] Reads Bible or Nondenominational materials [] There are Spiritual issues to be addressed Auto Inspection Specialist Interventions [x] Prayer [x] Active listening [x] Non-anxious presence [x] Spiritual/emotional support [] Crisis/trauma care [] Spiritual counseling [] Bereavement support [] Provided bereavement packet [] Provided Bible/devotional materials [] Provided toy/stuffed animal, coloring book to patient or family member [] Provided Communion [] Anointing/[place] [] Salvation [x] Completed spiritual assessment [] Other: Impact on Illness or Injury [] Angry [] Fearful [] Anxious [] Often cries [] Exhaustion [] Unable to work [] Unable to attend gnosticist [] Unable to walk/stand [] Unable to read [] Unable to drive [] Unable to eat/drink [] Unable to sleep [] Unable to be with family [] Patient intubated [] Other: Summary loves the Lord and so happy her results are all good... Time spent with patient 20 min
--- NOTE | 2021-01-29 09:52 | P.PN_ITS ---
Subjective Subjective: Interval history: Carolyn is feeling better today. She originally presented with fatigue which is marginally improved, nausea and vomiting which is substantially improved, e xertional dyspnea which is marginally improved. She still has some lower extremity edema. Eating and drinking well. Vitals/I&O/Wt Last Vital Signs Temp 98.4 F 01/29/21 08:00 Pulse 79 01/29/21 08:00 Resp 18 01/29/21 08:00 BP 128/82 01/29/21 08:28 Pulse Ox 93 01/29/21 08:00 01/28/21 01/29/21 01/29/21 22:59 06:59 14:59 Intake Total 236 / 236 Balance 236 / 236 Weight last 48 hrs Weight 162.386 kg Weight 159.665 kg Physical Exam Narrative: EXAM NARRATIVE: Constitutional: Awake, comfortable HEENT: Wet mucosa, no jvp, non icteric Lungs: Bilaterally clear without discernible wheeze, rales in all lung zones CVS: S1 S2, no murmurs Abdo: Soft, BS ok Ext 4: 2-3+ edema, peripheral perfusion with no cyanosis Neurological: Grossly non-focal Urinary Catheter Management^: Zurita: Cath Placed During This Visit: yes, but has since been removed by the nurse Reason for Continuing Indwelling Catheter: Not indwelling catheter Urinary Catheter Date of Insertion: 01/27/21 Urinary Catheter Time of Insertion: 13:30 Date Urinary Catheter Removed: 01/28/21 Time Urinary Catheter Discontinued: 11:30 Data : 01/29/21 06:30 01/29/21 06:30 Micro: Microbiology 01/26/21 20:30 Stool Lactoferrin - Final Stool Enteric Pathogens (PCR) - Final Parasite Antigen Panel - Final C.difficile Toxin B Gene (PCR) - Final Occult Blood (FIT) - Final A&P Additional A&P Information 1. Acute kidney injury Now recovered nicely Likely to be prerenal azotemia from intra vascular volume depletion from diuretic therapy. Renal function continues to improve now the diuretics are on hold and she received intravenous fluid Avoid usual nephrotoxic agents Strict I's and O's 2. Extremity edema Consistent with right-sided heart failure. Of note recent echocardiogram performed last month demonstrated normal ejection fraction, however, her right side was not clearly visualized hence pulmonary pressures were not measured. I have a strong suspicion of obesity related hypoventilation, untreated sleep apnea, pulmonary hypertension etc. causing the lower extremity edema hence no amount of diuretics are going to help to improve this. Currently has a CPAP machine was on recall and I have encouraged her to have this figured out. 3. Okay for discharge from my perspective. Acute renal issues have now resolved, will sign off at this time, thanks again Eddie Villalta MD Nephrology [phone] Patient seen and examined via telemedicine, with the assistance of the bedside RN > 25 min spent in evaluation and mgmt of patient Attestations Medical Necessity Statement*: Eval for RODRIGUE Coding Level of Care Code Acute Oversize Load Pilot Escort for Demetriceg Tracy
--- NOTE | 2021-01-29 10:30 | PC.SOCIAL ---
Pg 2 IMM Explained to pt Pg 2 IMM. No questions voiced. Provided pt a copy. Initialed, dated, & timed a copy & placed in chart.
--- NOTE | 2021-01-29 12:52 | PM.PN ---
Subjective Subjective: Interval history: Patient was seen this morning, she sitting up to the side of bed, is at bedside, she tells me that she is feeling better, no lightheadedness, dizziness, no nausea, no vomiting, no abdominal pain, she tells me that she is done the first part of her tagged white blood cell scan, she is worried about anaphylaxis from the test Vitals/I&O/Wt Last Vital Signs Temp 98.4 F 01/29/21 08:00 Pulse 79 01/29/21 08:00 Resp 18 01/29/21 08:00 BP 128/82 01/29/21 08:28 Pulse Ox 93 01/29/21 08:00 01/28/21 01/29/21 01/29/21 22:59 06:59 14:59 Intake Total 236 / 236 Balance 236 / 236 Weight last 48 hrs Weight 162.386 kg Weight 159.665 kg Physical Exam Const: COMMON NORMALS: no acute distress and patient oriented x3 Resp: COMMON NORMALS: normal respiratory effort, No retractions, No use of accessory muscles and clear to auscultation bilaterally AUSCULTATION: clear to auscultation bilaterally Cardio: COMMON NORMALS: regular rate, regular rhythm, S1 normal heart sound present and S2 normal heart sound present RATE: regular rate RHYTHM: regular rhythm HEART SOUNDS: S1 normal heart sound present and S2 normal heart sound present GI: COMMON NORMALS: Normal to inspection, nondistended, normoactive bowel sounds present, Soft to palpation and non-tender PALPATION: Yes Soft to palpation Extremity: COMMON NORMALS: no pedal edema Neuro: COMMON NORMALS: patient oriented x3 Psych: COMMON NORMALS: mental status grossly normal Urinary Catheter Management^: Zurita: Cath Placed During This Visit: yes, but has since been removed by the nurse Reason for Continuing Indwelling Catheter: Not indwelling catheter Urinary Catheter Date of Insertion: 01/27/21 Urinary Catheter Time of Insertion: 13:30 Date Urinary Catheter Removed: 01/28/21 Time Urinary Catheter Discontinued: 11:30 Data : 01/29/21 06:30 01/29/21 06:30 Micro: Microbiology 01/26/21 20:30 Stool Lactoferrin - Final Stool Enteric Pathogens (PCR) - Final Parasite Antigen Panel - Final C.difficile Toxin B Gene (PCR) - Final Occult Blood (FIT) - Final A&P Assessment and plan (1) Dyspnea: Recent extensive work up negative for underlying cardiac etiology Echo Normal left ventricular size and systolic function, EF 69% . No regional wall motion abnormalities. BNP not significantly elevated. She does use 80 mg of Lasix daily, typically her edema and her dyspnea improved with Lasix EKG today withut acute ST-T wave changes, troponin not signifcantly elevated, no significant delta troponin CXR without acute findings, recent CT chest 01/20 with left atelactasis, no other abnormalities no changes in mentation to raise suspicion for meningoencephalitis saturating in the high 90s on room air, recently discharged on 2 lpm, currently on room air Susect dyspnea may be related to obesity hypoventilation D-dimer 0.64 Patient CPAP is on recall, she is working to get a new CPAP machine Holding diuretics for now nonpitting edema Monitor creatinine, monitor urine output Status: Acute Qualifiers: Dyspnea type: dyspnea on exertion Qualified Code(s): R06.00 - Dyspnea, unspecified (2) Leukocytosis: Elevated to 21.6 No focal signs or symptoms of infection evident at this time, however will need to exclude infectious causes in patient on chronic steroids. Does have a spinal stimulator in place UA negative, CXR without acute infiltrates CMP within normal limits No acute EBV Hepatitis C nonreactive Lyme, Bartonella pending Lupus titer pending TSH within normal limits Peripheral smear pending BCR able pending Stool studies pending Check peripheral smear, ESR 14, CRP 16.1, pro-Reece 0.06 Blood cx 01/18 with CoNs, likely contaminant, repeat blood cultures within normal and so far CT abdomen pelvis no acute findings -CT of the lumbar spine no acute findings -Lower extremity venous ultrasound within normal limits -Renal ultrasound within normal limits -Tagged white blood cell scan being performed today Plan for today, resume hydralazine, tagged white blood cell scan, potential discharge in the next 24 hours Status: Acute Qualifiers: Leukocytosis type: unspecified Qualified Code(s): D72.829 - Elevated white blood cell count, unspecified (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 No evidence of intracranial hemorrhage or mass effect. 2. Moderate small vessel changes with moderate parenchymal volume loss. 3. 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 Suspected residual adenoma within the left aspect of the sella extending along the dorsum sella and left cavernous sinus. Otherwise normal postoperative sella 4. No other significant findings. Status: Acute (4) Hyperaldosteronism: -Resume home hydralazine, continue clonidine, metoprolol Status: Acute (5) Acute kidney injury: -Secondary to diuretic therapy -Creatinine up to 0.9, monitor urine output -Off IV hydration, Zurita catheter removed -Nephrology consulted Status: Acute Attestations Medical Necessity Statement*: Patient requires hospitalization for leukocytosis, RODRIGUE, edema shortness of breath Coding Level of Care Code Acute Fruit And Vegetable Parer for Chg Fwd Diagnoses Dyspnea R06.00 Dyspnea type: dyspnea on exertion Leukocytosis D72.829 Leukocytosis type: unspecified 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
[2021-01-29] MEDS: losartan 50 mg Tablet PO (16:25)
[2021-01-29 16:39] LABS: ANA SCREEN, IFA NEGATIVE (NEGATIVE)
--- NOTE | 2021-01-29 17:22 | PM.DCS ---
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 No regional wall motion abnormalities. BNP not significantly elevated. She does use 80 mg of Lasix daily, typically her edema and her dyspnea improved with Lasix EKG today withut acute ST-T wave changes, troponin not signifcantly elevated, no significant delta troponin CXR without acute findings, recent CT chest 01/20 with left atelactasis, no other abnormalities no changes in mentation to raise suspicion for meningoencephalitis Susect dyspnea may be related to obesity hypoventilation D-dimer 0.64 Patient CPAP is on recall, she is working to get a new CPAP machine Had received over 240 mg of Lasix in a 24-hour period, developed RODRIGUE, diuretics were held, RODRIGUE resolved, dyspnea resolved On discharge was discharged with 20 mg of Lasix as outpatient, follow-up with cardiology as outpatient Leukocytosis: Elevated to over 30,000 No focal signs or symptoms of infection evident at this time, however will need to exclude infectious causes in patient on chronic steroids. Does have a spinal stimulator in place UA negative, CXR without acute infiltrates CMP within normal limits No acute EBV Hepatitis C nonreactive Lyme, Bartonella pending Lupus titer pending TSH within normal limits Peripheral smear pending BCR able pending Stool studies pending Check peripheral smear, ESR 14, CRP 16.1, pro-Reece 0.06 Blood cx 01/18 with CoNs, likely contaminant, repeat blood cultures within normal and so far CT abdomen pelvis no acute findings -CT of the lumbar spine no acute findings -Lower extremity venous ultrasound within normal limits -Renal ultrasound within normal limits -Tagged white blood cell scan showed no acute evidence of infection -Does report a history of polycythemia, saw a lining cutter at one point, likely polycythemia related leukocytosis, BCR-ABL was ordered, follow-up with Dr. 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 No evidence of intracranial hemorrhage or mass effect. 2. Moderate small vessel changes with moderate parenchymal volume loss. 3. 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 Suspected residual adenoma within the left aspect of the sella extending along the dorsum sella and left cavernous sinus. Otherwise normal postoperative sella Developed acute kidney injury secondary to diuretic therapy, diuretic therapy was held, nephrology was consulted received gentle IV hydration, creatinine improve Discharged with Lasix 20 mg daily, losartan 50 mg daily, monitor creatinine as outpatient through primary care -Please monitor for fevers, chills, if so go to the emergency room -Please discuss with Jun about CPAP -Please check blood pressures twice daily -If your systolic blood pressures greater than 150 or diastolic is greater than 90 consistently, then increase losartan back to 100 mg daily -Follow-up with cardiology next week -Follow-up with Dr. Stoll in 3 to 4 weeks -Follow-up with primary care provider 1 week -Follow-up with Dr. Hill in 4 to 7 days Physical Exam Const: COMMON NORMALS: no acute distress and patient oriented x3 Neck/C-Spine: COMMON NORMALS: no JVD Resp: COMMON NORMALS: normal respiratory effort, No retractions, No use of accessory muscles and clear to auscultation bilaterally AUSCULTATION: clear to auscultation bilaterally Cardio: COMMON NORMALS: no JVD, regular rate, regular rhythm, S1 normal heart sound present and S2 normal heart sound present RATE: regular rate RHYTHM: regular rhythm HEART SOUNDS: S1 normal heart sound present and S2 normal heart sound present GI: COMMON NORMALS: Normal to inspection, nondistended, normoactive bowel sounds present, Soft to palpation and non-tender PALPATION: Yes Soft to palpation Extremity: COMMON NORMALS: no pedal edema Neuro: COMMON NORMALS: patient oriented x3 Psych: COMMON NORMALS: mental status grossly normal Urinary Catheter Management^: [place]: Cath Placed During This Visit: yes, but has since been removed by the nurse Reason for Continuing Indwelling Catheter: Not indwelling catheter Urinary Catheter Date of Insertion: 01/27/21 Urinary Catheter Time of Insertion: 13:30 Date Urinary Catheter Removed: 01/28/21 Time Urinary Catheter Discontinued: 11:30 Discharge Data Data Completed and Pending: Completed Studies During Hospitalization Category Date Time Status CT abdomen pelvis wo con [id number] Urge nt Cat Scan 01/26/21 06:[address] head wo con* 7 [id number] Routine Cat Scan 01/26/21 12:[address] lumbar spine w o con* [id number] Routi ne Cat Scan 01/27/21 14:30 Completed XR chest 1V anneliese ble [id number] Urgent Exams 01/25/21 19:31 Completed NM CERETEC WBC sc an* [id number] Routine Nuc Med 01/29/21 08:58 [place] [id number] Routin e Ultrasound 01/27/21 06:00 Completed US renal BI* [id number] Routine Ultrasound 01/27/21 08:42 Completed Pending at discharge Category Date Time Status ANCELMO Profile Rheum atology Stat Lab 01/26/21 14:47 Results Bartonella DNA PC R Routine Lab 01/26/21 14:47 Received Blood Culture Sta t Lab 01/25/21 00:15 Results Complete Blood Co unt w/Auto AM LABS Lab 01/30/21 04:00 Ordered Comprehensive Met abolic Panel AM LA BS Lab 01/30/21 04:00 Ordered Magnesium AM LABS Lab 01/30/21 04:00 Ordered Miscellaneous Makayla t Routine Lab 01/26/21 14:47 Received Miscellaneous Makayla t Routine Lab 01/26/21 14:47 Received Phosphorus AM LAB S Lab 01/30/21 04:00 Ordered Labs from last 24 hours 01/29/21 01/29/21 01/28/21 06:30 06:30 17:08 WBC 21.6 H RBC 4.79 Hgb 11.2 L Hct 37.0 MCV 77.2 L MCH 23.4 L MCHC 30.3 RDW 16.0 H Plt Count 262 MPV 10.3 Neut % (Auto) 83.7 Lymph % (Auto) 6.5 Davison % (Auto) 6.0 Eos % (Auto) 1.0 Baso % (Auto) 0.3 Neut # (Auto) 18.07 H Lymph # (Auto) 1.4 Davison # (Auto) 1.3 H Eos # (Auto) 0.2 Baso # (Auto) 0.1 Nucleated RBC % (a uto) 0 Nucleated RBCs # 0.0 Sodium 136 Potassium 4.2 4.0 Chloride 101 Carbon Dioxide 25 Anion Gap 14.2 BUN 27 H Creatinine 0.9 GFR Calculation 62.3 L Glucose 144 H Calculated Osmolal ity 290 Calcium 8.8 Phosphorus 1.5 L Magnesium 2.1 Total Bilirubin 0.4 AST 12 ALT 24 Alkaline Phosphata se 107 H Total Protein 6.2 L Albumin 3.5 Globulin 2.7 Ur Random Albumin U Random a-1-Globu mack % U Random a-2-Globu mack % U Random Beta Glob ulin U Random Gamma Candelaria b U Abnormal Prot Ba nd 1 U Abnormal Prot Ba nd 2 U Abnormal Prot Ba nd 3 Urine PEP Interpre t ANCELMO IFA Animal Tis Res 01/27/21 01/26/21 14:36 14:47 WBC RBC Hgb Hct MCV MCH MCHC RDW Plt Count MPV Neut % (Auto) Lymph % (Auto) Davison % (Auto) Eos % (Auto) Baso % (Auto) Neut # (Auto) Lymph # (Auto) Davison # (Auto) Eos # (Auto) Baso # (Auto) Nucleated RBC % (a uto) Nucleated RBCs # Sodium Potassium Chloride Carbon Dioxide Anion Gap BUN Creatinine GFR Calculation Glucose Calculated Osmolal ity Calcium Phosphorus Magnesium Total Bilirubin AST ALT Alkaline Phosphata se Total Protein Albumin Globulin Ur Random Albumin 0 U Random a-1-Globu mack % 0 U Random a-2-Globu mack % 0 U Random Beta Glob ulin 0 U Random Gamma Candelaria b 0 U Abnormal Prot Ba nd 1 Not Reportable U Abnormal Prot Ba nd 2 Not Reportable U Abnormal Prot Ba nd 3 Not Reportable Urine PEP Interpre t See note ANCELMO IFA Animal Tis Res Negative Vitals: Last Vital Signs Temp 98.5 F 01/29/21 12:00 Pulse 61 01/29/21 16:00 Resp 17 01/29/21 16:00 BP 134/89 01/29/21 16:25 Pulse Ox 95 01/29/21 16:00 Discharge Plan Discharge Patient Disposition: Home Condition: Stable Prescriptions: New clonidine HCl 0.1 mg Tablet 0.1 mg PO BID 30 Days Qty: 60 RF: 0 Continued pramipexole [Mirapex] 0.125 mg tablet 0.25 mg PO BEDTIME RF: 0 epinephrine [EpiPen 2-Nabeel] 0.3 mg/0.3 mL auto-injector 0.3 mg IM Q10M PRN (Reason: anaphylaxis) Qty: 2 RF: 3 duloxetine [Cymbalta] 30 mg capsule,delayed release(DR/EC) 60 mg PO BEDTIME RF: 0 cetirizine 10 mg tablet 10 mg PO QAM RF: 0 dexamethasone 1 mg tablet 2 mg PO QAM RF: 0 clotrimazole-betamethasone 1-0.05 % cream 1 applic topical BID 28 Days Qty: 45 RF: 1 (DME) 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 Misc See Rx Instructions .Route Qty: 1 RF: 0 potassium chloride 10 mEq tablet extended release 20 meq PO BID 90 Days Qty: 360 RF: 1 (DME) FreeStyle Daniel 2 [place] Misc See Rx Instructions .Route Qty: 1 RF: 0 (DME) FreeStyle Daniel 2 Sensor Kit See Rx Instructions .Route Qty: 1 RF: 3 levothyroxine 175 mcg tablet 175 mcg PO QAM RF: 0 Ozempic 1 mg/dose (2 mg/1.5 mL) pen injector 1 mg SUBCUT .weekly RF: 0 oxybutynin chloride 10 mg tablet extended release 24hr 20 mg PO QAM RF: 0 allopurinol 100 mg tablet 100 mg PO DAILY PRN (Reason: GOUT) RF: 0 Immune Vitamin C 1 tab PO DAILY RF: 0 metoprolol tartrate 25 mg tablet 25 mg PO BID Qty: 180 RF: 0 (DME) diabetic supplies, miscellan. Misc See Rx Instructions .Route Qty: 1 RF: 0 fluconazole 150 mg tablet 150 mg PO Q7D RF: 0 omeprazole 40 mg capsule,delayed release(DR/EC) 40 mg PO DAILY RF: 0 Changed Lasix 20 mg tablet 20 mg PO DAILY Qty: 0 RF: 0 losartan 100 mg tablet 50 mg PO QAM Qty: 0 RF: 0 Discontinued diltiazem HCl 30 mg tablet 30 mg PO TID Qty: 90 RF: 5 ibuprofen 800 mg tablet 800 mg PO BID RF: 0 bumetanide 0.5 mg tablet 0.5 mg PO BID 30 Days Qty: 60 RF: 0 levofloxacin 750 mg tablet 750 mg PO DAILY 7 Days Qty: 7 RF: 0 Ozempic 0.25 mg or 0.5 mg(2 mg/1.5 mL) pen injector 0.5 mg SUBCUT .weekly RF: 0 Ozempic 0.25 mg or 0.5 mg(2 mg/1.5 mL) pen injector 0.25 mg SUBCUT Q7D RF: 0 amlodipine 5 mg tablet 5 mg PO DAILY Qty: 90 RF: 0 Discharge Orders: Discharge Order (Routine); Ordered 01/29/21 Ordered By: Jay Wright Referrals: Mariana Lawrence FNP [Nurse Practitioner] - 02/02/21 3:30 pm (Your appoinment with Mariana Lawrence has been rescheduled to this date. Please call them if you need to reschedule.) Armand Hill MD [Hospitalist] - 4-7 days Kenisha Stoll MD [Physician] - 1 month Piedad Sandhu MD [Primary Care Provider] - Discharge Diet: Cardiac Discharge Activity: Resume usual activity Patient Instructions: Opioid Safety Activity Restrictions/Additional Instructions: -Please monitor for fevers, chills, if so go to the emergency room -Please discuss with Jun about CPAP -Please check blood pressures twice daily -If your systolic blood pressures greater than 150 or diastolic is greater than 90 consistently, then increase losartan back to 100 mg daily -Follow-up with cardiology next week -Follow-up with Dr. Stoll in 3 to 4 weeks -Follow-up with primary care provider 1 week -Follow-up with Dr. 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
--- NOTE | 2021-01-29 18:28 | PC.NURSE ---
Pt education provided, IV's removed no questions or concerns. Pt wheeled out via wheelchair.
[2021-01-30 00:44] LABS: Bartonella DNA PCR Source WHOLE BLOOD; Bartonella Henselae DNA PCR NOT DETECTED; Bartonella Quintana DNA PCR NOT DETECTED
[2021-02-03 12:57] LABS: DNA AB (DS) CRITHIDIA,IFA NEGATIVE (NEGATIVE)
[2021-02-03 14:42] LABS: Miscellaneous Test See Scanned Lab Rpt
[2021-02-03 14:43] LABS: Miscellaneous Test See Scanned Lab Rpt
== END 2021-01-29 18:32 | disposition home or self-care (01) | DRG 206 ==
LOC: ER 01-26 05:14 → CSU 01-26 07:17
PROVIDERS: Internal Medicine Nephrology; Physician Assistant; Admitting Provider Student in an Organized Health Care Education/Training Program; Emergency Provider Emergency Medicine; PCP Family Medicine; Visit Provider Family Medicine
DX: E66.2 Morbid (severe) obesity with alveolar hypoventilation (principal); N17.9 Acute kidney failure, unspecified; Z68.43 Body mass index [BMI] 50.0-59.9, adult; E27.40 Unspecified adrenocortical insufficiency; R06.00 Dyspnea, unspecified; D72.829 Elevated white blood cell count, unspecified; E89.3 Postprocedural hypopituitarism; E26.9 Hyperaldosteronism, unspecified; R00.0 Tachycardia, unspecified; I48.0 Paroxysmal atrial fibrillation; I11.0 Hypertensive heart disease with heart failure; I50.810 Right heart failure, unspecified; I50.9 Heart failure, unspecified; I95.9 Hypotension, unspecified; E03.9 Hypothyroidism, unspecified; G89.29 Other chronic pain; M47.816 Spondylosis without myelopathy or radiculopathy, lumbar region; R73.03 Prediabetes; R11.2 Nausea with vomiting, unspecified; R19.7 Diarrhea, unspecified; Z86.16 Personal history of COVID-19; Z79.52 Long term (current) use of systemic steroids; Z96.82 Presence of neurostimulator; Z86.018 Personal history of other benign neoplasm
CPT/HCPCS: 36415; 51702; 70450; 71045; 72131; 74176; 76770; 78802; 80048; 80053; 80061; 80500; 81001; 82024; 82044; 82088; 82274; 82310; 82436; 82533; 82550; 83010; 83605; 83615; 83630; 83735; 83880; 83935; 83970; 84100; 84132; 84133; 84145; 84155; 84156; 84165; 84300; 84443; 84484; 84540; 84550; 85007; 85025; 85027; 85378; 85651; 86060; 86140; 86160; 86162; 86235; 86255; 86308; 86376; 86431; 86664; 86665; 86769; 86803; 87040; 87493; 87506; 87801; 88184; 88185; 88367; 88374; 93005; 93970; 96372; 96374; 99285; A9569; G0378; J1650; J1940; J2405; J2765; J8540; Q3014

== ENCOUNTER 2021-02-11 15:58 | Inpatient (IN) | payer MEDICARE, OTHER, SELFPAY ==
[2021-02-11 17:10] VITALS: BP 147/88; PULSE 94; RESP 24; TEMP 36.6; O2SAT 96; BMI 58.6
--- NOTE | 2021-02-11 17:36 | XRR_ITS ---
PROCEDURE INFORMATION: Exam: XR Chest Exam date and time: 02/11/2021 5:36 PM Age: 70 years old Clinical indication: Shortness of breath; Patient HX: PT states she goes into fluid overload periodically; Additional info: SOB TECHNIQUE: Imaging protocol: XR of the chest. Views: 1 view. COMPARISON: CR (CHEST, ) 01/25/2021 9:01 PM FINDINGS: Lungs: Shallow inspiration with crowding. The lungs are otherwise clear. No consolidation. The lungs are under penetrated due to patient's large body habitus. Pleural spaces: Unremarkable. No pleural effusion. No pneumothorax. Heart/Mediastinum: Unremarkable. No cardiomegaly. Bones/joints: Unremarkable. XR/XR chest 1V portable [id number] IMPRESSION: 1. No definite acute findings. Radiation Dose CTDIVOL = (mGy): DLP = (mGy-cm)
--- NOTE | 2021-02-11 17:36 | ECG_ITS ---
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 [email or web address]
--- NOTE | 2021-02-11 18:02 | ED_ITS ---
HPI - SOB/Dyspnea General: Chief Complaint: Shortness of Breath/Dyspnea Stated Complaint: SOB, FLUID OVERLOAD P/DR MANCILLA Time Seen by Provider: 02/11/21 17:38 History of Present Illness: HPI Narrative: Patient is a 70-year-old female comes to the ED with shortness of breath and fluid retention. Patient was sent over here by Dr. Mancilla's office with concerns of CHF exacerbation. Patient's main complaint is shortness of breath and states that she cannot lay flat or walk more than 5 steps without getting very short of breath. She was recently hospitalized at [facility] for a CHF exacerbation and was released from there last February 05. Since her release from the hospital she says she has put on approximately 17 pounds over the past 5 days. Patient is currently on Lasix 120 mg daily, spironolactone 100 mg daily and Bumex 1 mg as needed. She is also having bilateral lower extremity edema. Patient says she has been following strict low-sodium diet. She has a CPAP machine at home that does link up to oxygen as well but says she is not on any oxygen throughout the day. Associated symptoms: Deny abdominal pain, chest pain, fever(s), nausea, orthopnea, palpitations or vomiting Review of Systems Const: Denies: fever(s), chills or fatigue Eyes: Denies: change in vision or eye discomfort ENMT: Denies: throat pain, odynophagia, nasal discharge or nasal congestion Card: Reports: edema and swelling of feet/ankles; Denies: chest pain, palpitations, dyspnea on exertion or orthopnea Resp: Reports: dyspnea; Denies: productive cough or non-productive cough GI: Denies: abdominal pain, nausea, vomiting, diarrhea, constipation or hematochezia : Denies: flank pain, dysuria or hematuria Musc: Denies: neck pain, back pain or extremity swelling Skin/Breast: Denies: rash or new lesions Neuro: Denies: headache(s), numbness in extremities or weakness in extremities PFS ED PFSH: Medical History Adrenal insufficiency Anasarca Benign essential hypertension with target blood pressure below 140/90 Central hypothyroidism CHF (congestive heart failure) Chronic back pain Follows at pain clinic for periodic injections COVID-19 (~09/2020) Edema Facet arthritis, degenerative, lumbar spine History of anaphylaxis History of atrial fibrillation Intermittent, has not required long-term anticoagulation or focused treatment History of COVID-19 HTN (hypertension) Hyperaldosteronism 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 Mother Cancer Lung disease Grandfather Cancer Grandmother Dementia Denies family history of Diabetes CAD (coronary artery disease) Clotting disorder Chronic kidney disease (CKD) Suicide Anesthesia complication Bleeding disorder Stroke Social History Quit status (tobacco): has quit using tobacco Year quit tobacco: 50 years ago Second hand smoke exposure: No Alcohol intake: never Caregiver/support person: Yes Lives independently: Yes Household members: spouse Marital status: service: No Current occupational status: retired Current gender identity: Female Female Reproductive History: Date of last menstrual period: 01/22/21 Physical Exam Const: COMMON NORMALS: patient oriented x3 and alert GENERAL APPEARANCE: cooperative NUTRITIONAL APPEARANCE: obese HENMT: COMMON NORMALS: normocephalic HEAD & SCALP: normocephalic MOUTH: Normal oral and palatal mucosa present THROAT: posterior oropharynx normal and uvula midline Eye: COMMON NORMALS: Equal, round and reactive pupils present PUPIL: Yes Equal, round and reactive pupils present Neck/C-Spine: COMMON NORMALS: supple GENERAL: Yes normal visual inspection Resp: COMMON NORMALS: normal respiratory effort, No retractions, No use of accessory muscles and clear to auscultation bilaterally EFFORT & INSPECTION: Yes able to speak in complete sentences, Yes tachypneic and Yes labored (Breathing does appear little labored while sitting.) AUSCULTATION: clear to auscultation bilaterally Cardio: COMMON NORMALS: regular rate, regular rhythm, S1 normal heart sound present, S2 normal heart sound present, No gallops present (Cardio), No clicks present (Cardio), No murmurs present (Cardio) and Peripheral pulses 2+ throughout RATE: regular rate RHYTHM: regular rhythm HEART SOUNDS: S1 normal heart sound present and S2 normal heart sound present PERIPHERAL PULSES: Peripheral pulses 2+ throughout GI: COMMON NORMALS: Normal to inspection, nondistended, normoactive bowel sounds present, Soft to palpation, non-tender and no masses PALPATION: Yes Soft to palpation : COMMON NORMALS: Yes no CVA tenderness BLADDER/KIDNEY EXAM: Yes no CVA tenderness Back/Pelvis: COMMON NORMALS: no CVA tenderness Extremity: GENERAL: Yes edema (Bilateral 3+ pitting edema up to knees) Neuro: COMMON NORMALS: patient oriented x3 and moves all extremities SENSORIUM/ORIENTATION: Yes alert Skin: GENERAL SKIN EXAM: dry skin Course Consultations: Consultation #1: I contacted Dr. Guardado and told her about patient case. I reviewed significant lab findings and clinical presentation of patient. She accepted admission of patient. Time: 21:05 Vital Signs: Vital signs: Vital Signs Temperature 98.7 F 02/12/21 00:00 Pulse Rate 67 02/12/21 00:00 Respiratory Rate 18 02/12/21 00:00 Blood Pressure 147/83 02/12/21 00:00 Pulse Oximetry 93 02/12/21 00:00 MDM - SOB/Dyspnea MDM Narrative: Medical decision making narrative: Patient is a 70-year-old female comes to the ED with shortness of breath and fluid retention. Patient can only walk a few steps without getting very short of breath. Patient was seen at Dr. Salvador puga and sent over here to the ED for patient to be admitted for likely CHF exacerbation. Respirations 24 and the rest of vitals are stable. Patient appears in fluid overload and has 3+ bilateral pitting edema lower extremities. White blood cell count 20.6 and creatinine of 1.1. Troponins negative. EKG showed no acute findings. Chest x-ray showed no acute findings. D-dimer elevated 0.82. BNP 160. I spoke with Dr. Covarrubias about patient case he agreed with having patient admitted. I contacted Dr. Guardado told her about patient case and she accepted admission of patient. Lab Data: Attestation: I reviewed the patient's lab results. Labs: Lab Results 02/11/21 02/11/21 02/11/21 18:30 18:30 18:30 WBC 20.6 10^3/uL H 10 ^3/uL (4.0-10.0) RBC 4.98 10^6/uL 10^6 /uL (4.1-5.3) Hgb 11.5 g/dL g/dL (11.5-15.3) Hct 39.5 % % (37.0-47.0) MCV 79.3 fl L fl (81-99) MCH 23.1 pg L pg (28.0-34.0) MCHC 29.1 g/dL L g/dL (30.0-36.0) RDW 16.4 % H % (12.1-15.1) Plt Count 322 10^3/cmm 10^3 /cmm (130-400) MPV 9.7 fL fL (7.4-10.4) Neut % (Auto) 79.8 % % Lymph % (Auto) 8.3 % % [place] % (Auto) 7.8 % % Eos % (Auto) 0.5 % % Baso % (Auto) 0.4 % % Neut # (Auto) 16.39 10^3/uL H 1 0^3/uL (1.8-7.7) Lymph # (Auto) 1.7 10^3/uL 10^3/ uL (0.8-4.8) [place] # (Auto) 1.6 10^3/uL H 10^ 3/uL (0.2-0.9) Eos # (Auto) 0.1 10^3/uL 10^3/ uL (0.0-0.8) Baso # (Auto) 0.1 10^3/uL 10^3/ uL (0.0-0.1) Nucleated RBC % (a uto) 0 % % Nucleated RBCs # 0.0 /100WBC /100W BC D-Dimer Sodium 135 mmol/L L mmol /L (136-145) Potassium 4.1 mmol/L mmol/L (3.5-5.1) Chloride 99 mmol/L mmol/L (98-107) Carbon Dioxide 25 mmol/L mmol/L (22-29) Anion Gap 15.1 (5-19) BUN 27 mg/dL H mg/dL (8-23) Creatinine 1.1 mg/dL H mg/dL (0.5-0.9) GFR Calculation 49.4 mL/min L mL/ min (90-130) Glucose 186 mg/dL H mg/dL (65-115) Calculated Osmolal ity 290 mOsm/kg mOsm/ kg (285-295) Calcium 8.9 mg/dL mg/dL (8.5-10.5) Total Bilirubin 0.2 mg/dL mg/dL (0.15-1.2) AST 10 U/L U/L (0-32) ALT 28 U/L U/L (0-33) Alkaline Phosphata se 97 IU/L IU/L (35-105) Troponin T Baselin e 14 ng/L H ng/L (0-10) Troponin T 120 Min [place] Delta Troponin T NT-Pro-B Natriuret Pep 160 pg/mL H pg/mL (0-125) Total Protein 5.9 g/dL L g/dL (6.6-8.7) Albumin 3.6 g/dL g/dL (3.5-5.2) Globulin 2.3 g/dL g/dL (1.3-4.6) 02/11/21 02/11/21 18:30 20:46 WBC RBC Hgb Hct MCV MCH MCHC RDW Plt Count MPV Neut % (Auto) Lymph % (Auto) [place] % (Auto) Eos % (Auto) Baso % (Auto) Neut # (Auto) Lymph # (Auto) [place] # (Auto) Eos # (Auto) Baso # (Auto) Nucleated RBC % (a uto) Nucleated RBCs # D-Dimer 0.82 ug/mIFEU H u g/mIFEU (0-0.59) Sodium Potassium Chloride Carbon Dioxide Anion Gap BUN Creatinine GFR Calculation Glucose Calculated Osmolal ity Calcium Total Bilirubin AST ALT Alkaline Phosphata se Troponin T Baselin e Troponin T 120 Min [place] 13.30 ng/L H ng/L (0-10) Delta Troponin T -0.70 ABS# L ABS# (0-10) NT-Pro-B Natriuret Pep Total Protein Albumin Globulin Imaging Data^: CXR: Attestation: I personally reviewed and interpreted this imaging study as follows: Radiologist's impression: [address] [address] XRay Report Signed Patient: Carolyn Alexander Unit #: [id number] : 1950 Age/Sex: 70 / F ADM Date: 02/11/21 Loc: ER Room/Bed: Attending Dr: Ordering Provider/Ordering MD: Eddie Bradshaw Date of Service: 02/11/21 Procedure(s): XR chest 1V portable [id number] Accession Number(s): [id number] Report Number: [id number] PROCEDURE INFORMATION: Exam: XR Chest Exam date and time: 02/11/2021 5:36 PM Age: 70 years old Clinical indication: Shortness of breath; Patient HX: PT states she goes into fluid overload periodically; Additional info: SOB TECHNIQUE: Imaging protocol: XR of the chest. Views: 1 view. COMPARISON: CR (CHEST, ) 01/25/2021 9:01 PM FINDINGS: Lungs: Shallow inspiration with crowding. The lungs are otherwise clear. No consolidation. The lungs are under penetrated due to patient's large body habitus. Pleural spaces: Unremarkable. No pleural effusion. No pneumothorax. Heart/Mediastinum: Unremarkable. No cardiomegaly. Bones/joints: Unremarkable. XR/XR chest 1V portable [id number] IMPRESSION: 1. No definite acute findings. Radiation Dose CTDIVOL = (mGy): DLP = (mGy-cm) Dictated By: Francisco J Camahco EKG Data^: EKG 1: Attestation: I personally reviewed and interpreted this EKG as follows: EKG Interpretation Date: 02/11/21 EKG interpretation time: 19:05 Interpretation: Sinus rhythm, 93 bpm, no ST segment elevation or depression seen. EKG 2: Attestation: I personally reviewed and interpreted this EKG as follows: EKG Interpretation Date: 02/11/21 EKG interpretation time: 21:18 Interpretation: Normal sinus rhythm, 67 bpm, no ST segment elevation or depression seen. Discharge Plan Discharge Patient Disposition: Admitted As Inpatient Admit Provider: Shea Guardado Condition: Stable Coding Level of Care Code ED Billing Typist for Chg Fwd Exam Comprehensive
[2021-02-11 18:41] LABS: Basophils # 0.1 10^3/uL (0.0-0.1); Basophils % 0.4 %; Eosinophils # 0.1 10^3/uL (0.0-0.8); Eosinophils % 0.5 %; Hematocrit 39.5 % (37.0-47.0); Hemoglobin 11.5 g/dL (11.5-15.3); Lymphocytes # 1.7 10^3/uL (0.8-4.8); Lymphocytes % 8.3 %; Mean Corpuscular HGB Conc 29.1 g/dL (30.0-36.0); Mean Corpuscular Hemoglobin 23.1 pg (28.0-34.0); Mean Corpuscular Volume 79.3 fl (81-99); Mean Platelet Volume 9.7 fL (7.4-10.4); Monocytes # 1.6 10^3/uL (0.2-0.9); Monocytes % 7.8 %; Neutrophils # 16.39 10^3/uL (1.8-7.7); Neutrophils % 79.8 %; Nucleated Red Blood Cells % 0 %; Platelet Count 322 10^3/cmm (130-400); Red Blood Count 4.98 10^6/uL (4.1-5.3); Red Cell Distribution Width 16.4 % (12.1-15.1); White Blood Count 20.6 10^3/uL (4.0-10.0)
[2021-02-11 19:02] LABS: Troponin(5th) Baseline 14 ng/L (0-10)
[2021-02-11 19:12] LABS: Alanine Aminotransferase 28 U/L (0-33); Albumin Level 3.6 g/dL (3.5-5.2); Alkaline Phosphatase 97 IU/L (35-105); Anion Gap 15.1 (5-19); Aspartate Amino Transferase 10 U/L (0-32); Blood Urea Nitrogen 27 mg/dL (8-23); Calcium 8.9 mg/dL (8.5-10.5); Carbon Dioxide 25 mmol/L (22-29); Chloride 99 mmol/L (98-107); Globulin 2.3 g/dL (1.3-4.6); Glomerular Filtration Rate 49.4 mL/min (90-130); Glucose 186 mg/dL (65-115); NT Pro B Type Natriuretic Pept 160 pg/mL (0-125); Osmolality Calculated 290 mOsm/kg (285-295); Potassium 4.1 mmol/L (3.5-5.1); Sodium 135 mmol/L (136-145); Total Bilirubin 0.2 mg/dL (0.15-1.2); Total Protein 5.9 g/dL (6.6-8.7)
[2021-02-11] MEDS: FUROsemide 10 mg/mL SDV 10mL 60 MG IVP (19:14)
--- NOTE | 2021-02-11 19:36 | ECG_ITS ---
[facility] Test Date: 2021-02-11 Pat Name: Carolyn Alexander Department: Room: Gender: Female Blood Bank Business Manager: : 1950 Requested By: Eddie Bradshaw Order Number: [id number] Laina MD: Jaki Leavitt M.D. Measurements Intervals [place] Rate: 67 P: 31 [place]: 136 QRS: -6 QRSD: 90 T: 51 QT: 405 QTc: 429 Interpretive Statements SINUS RHYTHM NONSPECIFIC ST & T-WAVE ABNORMALITY Compared to ECG 01/25/2021 20:26:01 T-wave abnormality now present Electronically Signed On 02-12-2021 16:16:13 MEDICAL RECORD ADMINISTRATOR by Jaki Leavitt M.D. [id number]
[2021-02-11 19:54] LABS: D Dimer 0.82 ug/mIFEU (0-0.59)
[2021-02-11 21:52] VITALS: BP 128/94; PULSE 85; RESP 18; O2SAT 97
[2021-02-11 22:00] VITALS: BP 143/84; PULSE 80; RESP 16; O2SAT 98
--- NOTE | 2021-02-11 23:36 | ECG_ITS ---
[facility] Test Date: 2021-02-12 Pat Name: Carolyn Alexander Department: Room: 255 Gender: Female Medical Dir: : 1950 Requested By: Eddie Bradshaw Order Number: [id number] Marina MD: Jaki Leavitt M.D. Measurements Intervals [place] Rate: 58 P: 47 [place]: 138 QRS: -7 QRSD: 97 T: 56 QT: 434 QTc: 428 Interpretive Statements SINUS BRADYCARDIA MODERATE T-WAVE ABNORMALITY, CONSIDER ANTERIOR ISCHEMIA [-0.1+ mV T-WAVE IN V3/V4] Compared to ECG 02/11/2021 21:18:39 Possible ischemia now present Sinus rhythm no longer present T-wave abnormality still present Electronically Signed On 02-12-2021 16:15:52 WORKFORCE SERVICES REPRESENTATIVE by Jaki Leavitt M.D. [id number]
[2021-02-12] VITALS (9 sets, daily range): BP systolic 139–154; BP diastolic 69–85; PULSE 63–92; RESP 16–18; TEMP 36.6–37.1; O2SAT 92–100
[2021-02-12 00:46] LABS: Basophils # 0.1 10^3/uL (0.0-0.1); Basophils % 0.6 %; Eosinophils # 0.2 10^3/uL (0.0-0.8); Hematocrit 38.8 % (37.0-47.0); Hemoglobin 11.4 g/dL (11.5-15.3); Lymphocytes # 2.5 10^3/uL (0.8-4.8); Lymphocytes % 13.2 %; Mean Corpuscular HGB Conc 29.4 g/dL (30.0-36.0); Mean Corpuscular Hemoglobin 23.1 pg (28.0-34.0); Mean Corpuscular Volume 78.7 fl (81-99); Mean Platelet Volume 9.3 fL (7.4-10.4); Monocytes # 1.6 10^3/uL (0.2-0.9); Monocytes % 8.5 %; Neutrophils # 13.78 10^3/uL (1.8-7.7); Neutrophils % 72.6 %; Nucleated Red Blood Cells % 0 %; Platelet Count 312 10^3/cmm (130-400); Red Blood Count 4.93 10^6/uL (4.1-5.3); Red Cell Distribution Width 16.4 % (12.1-15.1)
[2021-02-12 01:06] LABS: Alanine Aminotransferase 27 U/L (0-33); Albumin Level 3.7 g/dL (3.5-5.2); Alkaline Phosphatase 97 IU/L (35-105); Aspartate Amino Transferase 9 U/L (0-32); Blood Urea Nitrogen 30 mg/dL (8-23); Calcium 8.7 mg/dL (8.5-10.5); Carbon Dioxide 24 mmol/L (22-29); Chloride 100 mmol/L (98-107); Globulin 2.1 g/dL (1.3-4.6); Glomerular Filtration Rate 44.7 mL/min (90-130); Glucose 170 mg/dL (65-115); Magnesium 2.5 mg/dL (1.7-2.3); Osmolality Calculated 296 mOsm/kg (285-295); Sodium 138 mmol/L (136-145); Total Bilirubin 0.2 mg/dL (0.15-1.2); Total Protein 5.8 g/dL (6.6-8.7)
[2021-02-12 01:20] LABS: Troponin 5 6HR 13.83 ng/L (0-10); Troponin 5 6HR Delta -0.17 ng/L (0-12)
--- NOTE | 2021-02-12 03:10 | PC.RESP ---
RT applied overnight pulse ox to pt @ 0049, pt on room air att. Alarms set. Will continue to monitor
[2021-02-12] MEDS: FUROsemide 10 mg/mL SDV 10mL 60 MG IVP ×2 (05:26→18:22)
[2021-02-12] MEDS: levothyroxine 175 mcg Tablet PO (05:26)
[2021-02-12] MEDS: losartan 50 mg Tablet PO (05:28)
--- NOTE | 2021-02-12 07:16 | P.HP_ITS ---
Providers/Chief Complaint Admitting Physician: Shea Guardado MD Primary Care Provider: Piedad Sandhu MD Chief Complaint: SOB, FLUID OVERLOAD P/DR MANCILLA History of Present Illness Carolyn Alexander is a 70 year old female with multiple recent admissions for worsening dyspnea and increasing anasarca sent from her station repairer's office due to worsening swelling. her work up has thus far included CT scan of the chest in December 2020 which was essentially normal. An echocardiogram in December 2020 revealed an ejection fraction of 69%. No wall motion abnormalities are identified. No diastolic function assessment was performed. The right ventricle was normal in size. The right atrium was normal in size. There was small amount of pericardial effusion. She had an event monitor which revealed normal sinus rhythm/tachycardia with no other significant arrhythmias. She had a cardiac catheterization proximally 3 years ago and was found to no significant obstructive coronary artery disease. she has chronic kidney disease and has been following up with a graphics programmer in [place]. Recent random urinary protein level was not elevated in January 2021. Cr currently stable at 1.1. The patient also carries a diagnosis of polycythemia for which she follows with hematology. She has history of 2 pituitary surgeries resulting in hypopituitarism. She also has hypothyroidism and hyperaldosteronism. She is following up with endocrinology. On chronic steroids. no significant cough, sputum production, fever, night sweats, chills. Recently she was discharged from [facility] after discharge from [facility] when her Lasix was totrated up again to 120mg per day, aldactone 100mg daily and Bumexc 1mg po prn. she followed up as outpatient with cardiology yesterday wherein she again reported worsening dyspnea and weight gain of 15 pounds. She was planned to undergo PFT, sleep oximetry study and possible RHC. Review of Systems General: Reports: 10 or more systems reviewed and unremarkable except in HPI and below Const: Denies: fever(s), chills or body aches Eyes: Denies: change in vision, blurry vision or photophobia ENMT: Reports: hoarseness; Denies: throat pain, enlarged tonsils, odynophagia or nasal congestion Card: Denies: chest pain, palpitations, irregular heart rhythm, edema, swelling of feet/ankles, lightheadedness, pre-syncope, dyspnea on exertion or orthopnea Resp: Denies: dyspnea, productive cough, non-productive cough, wheezing, stridor, pain on inspiration, change in phlegm color, hemoptysis or chest congestion GI: Denies: abdominal pain, nausea, vomiting, hematemesis, coffee ground em esis, dysphagia, heartburn, diarrhea, constipation, GI cramping, change in stool character, hematochezia or melena : Denies: flank pain, difficulty voiding, dysuria, urinary frequency, urinary urgency, urinary hesitancy or hematuria Musc: Denies: neck pain, back pain, extremity pain, joint swelling, joint warmth or deformity Neuro: Denies: headache(s), numbness in extremities, weakness in extremities, sensory changes, difficulty walking, frequent falls, dizziness, vertigo, behavioral changes, Slurred speech present or seizure-like activity Psych: Denies: anxiety, depression, suicidal ideation or homicidal ideation Endo: Denies: polyuria, polydipsia, tired all the time, cold intolerance or hot flashes Charli/Lymph: Denies: easy bruising or easy bleeding Medications/Allergies Home Medications Medication Instructions Recorded Confirmed Last Taken Type epinephrine 0.3 mg/0.3 mL 0.3 mg IM Q10M PRN #2 ea 04/20/20 02/11/21 Unknown Rx injection, auto-injector clotrimazole-betamethasone 1 1 applic TOPICAL BID 28 Days #45 g 11/11/20 02/11/21 01/17/21 Rx %-0.05 % topical cream cetirizine 10 mg tablet 10 mg PO QAM tab 01/04/21 02/11/21 02/11/21 History dexamethasone 1 mg tablet 2 mg PO QAM tab 01/04/21 02/11/21 02/11/21 History duloxetine 30 mg capsule,delayed 60 mg PO BEDTIME cap 01/04/21 02/11/21 02/10/21 History release Immune Vitamin C 1 tab PO DAILY 01/19/21 02/11/21 02/11/21 History Ozempic 1 mg SUBCUT Q7D 01/19/21 02/11/21 02/07/21 History allopurinol 100 mg PO DAILY PRN 01/19/21 02/11/21 Unknown History levothyroxine 175 mcg PO QAM 01/19/21 02/11/21 02/11/21 History oxybutynin chloride 10 mg PO QAM 01/19/21 02/11/21 02/11/21 History diabetic supplies, miscellan. #1 ea 01/21/21 02/11/21 Unknown Rx flash glucose scanning reader #1 ea 01/21/21 02/11/21 Unknown Rx flash glucose sensor #1 ea 01/21/21 02/11/21 Unknown Rx fluconazole 150 mg PO Q7D 01/26/21 02/11/21 02/07/21 History omeprazole 40 mg PO DAILY 01/26/21 02/11/21 02/11/21 History losartan 50 mg PO QAM #0 tab 01/29/21 02/11/21 02/11/21 Rx blood-glucose meter,continuous #1 ea 02/05/21 02/11/21 Unknown Rx miscellaneous medical supply #1 ea 02/05/21 02/11/21 Unknown Rx bumetanide 1 mg tablet 1 mg PO PRN PRN tab 02/08/21 02/11/21 Unknown History furosemide 20 mg tablet See Rx Instructions .ROUTE 02/08/21 02/11/21 02/11/21 History .COMPLEX tab amlodipine 5 mg PO DAILY PRN 02/11/21 02/11/21 Unknown History clonidine HCl 0.1 mg PO BID PRN 02/11/21 02/11/21 Unknown History metoprolol tartrate 25 mg PO BID PRN 02/11/21 02/11/21 Unknown History potassium chloride 10 mEq 80 meq PO TID cap 02/11/21 02/11/21 02/11/21 History capsule,extended release spironolactone 25 mg PO BID 02/11/21 02/11/21 02/11/21 History Allergies Allergy/AdvReac Type Severity Reaction Status Date / Time acetaminophen [From Tylenol] Allergy ALGY-Hives Verified 02/11/21 12:56 azithromycin Allergy ALGY-Anaphy Verified 02/11/21 12:56 laxis benzocaine Allergy ALGY-Hives Verified 02/11/21 12:56 butamben [From Cetacaine] Allergy ALGY-Swell Verified 02/11/21 12:56 Lip/Tongue/Throat codeine Allergy ALGY-Hives Verified 02/11/21 12:56 fentanyl Allergy ALGY-Anaphy Verified 02/11/21 12:56 laxis hydrocodone [From Vicodin] Allergy ALGY-Hives Verified 02/11/21 12:56 hydromorphone [From Dilaudid] Allergy ADR-Vomitin Verified 02/11/21 12:56 g Iodinated Contrast Media Allergy ALGY-Anaphy Verified 02/11/21 12:56 laxis liothyronine Allergy ADR-Nausea Verified 02/11/21 12:56 meperidine [From Demerol] Allergy Unknown Verified 02/11/21 12:56 morphine Allergy ALGY-Anaphy Verified 02/11/21 12:56 laxis nitrofurantoin Allergy ALGY-Joint Verified 02/11/21 12:56 [From Macrobid] Pain oxycodone [From Percocet] Allergy ALGY-Hives Verified 02/11/21 12:56 penicillin V Allergy ALGY-Hives Verified 02/11/21 12:56 Penicillins Allergy Unknown Verified 02/11/21 12:56 Phenothiazines Allergy ALGY-Anaphy Verified 02/11/21 12:56 laxis pregabalin [From Lyrica] Allergy ADV-Weaknes Verified 02/11/21 12:56 s procaine Allergy ALGY-Hives Verified 02/11/21 12:56 prochlorperazine Allergy ALGY-Anaphy Verified 02/11/21 12:56 [From Compazine] laxis Sulfa (Sulfonamide Allergy Unknown Verified 02/11/21 12:56 Antibiotics) tetracaine [From Cetacaine] Allergy ALGY-Swell Verified 02/11/21 12:56 Lip/Tongue/Throat PFSH Acute PFSH: Medical History Adrenal insufficiency Anasarca Benign essential hypertension with target blood pressure below 140/90 Central hypothyroidism CHF (congestive heart failure) Chronic back pain Follows at pain clinic for periodic injections COVID-19 (~09/2020) Edema Facet arthritis, degenerative, lumbar spine History of anaphylaxis History of atrial fibrillation Intermittent, has not required long-term anticoagulation or focused treatment History of COVID-19 HTN (hypertension) Hyperaldosteronism 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 Mother Cancer Lung disease Grandfather Cancer Grandmother Dementia Denies family history of Diabetes CAD (coronary artery disease) Clotting disorder Chronic kidney disease (CKD) Suicide Anesthesia complication Bleeding disorder Stroke Social History Quit status (tobacco): has quit using tobacco Year quit tobacco: 50 years ago Second hand smoke exposure: No Alcohol intake: never Caregiver/support person: Yes Lives independently: Yes Household members: spouse Marital status: service: No Current occupational status: retired Current gender identity: Female Female Reproductive History: Date of last menstrual period: 01/22/21 Vitals/I&O/Wt Last Vital Signs Temp 98.6 F 02/12/21 07:05 Pulse 75 02/12/21 07:05 Resp 17 02/12/21 07:05 BP 153/85 02/12/21 07:05 Pulse Ox 97 02/12/21 07:05 02/11/21 02/12/21 02/12/21 22:59 06:59 14:59 Intake Total 120 / 120 Balance 120 / 120 Weight last 48 hrs Weight 159.665 kg Physical Exam Narrative: EXAM NARRATIVE: General: No acute distress, AO x3 HEENT: PERRLA, pupils bilaterally equal and reactive, pallors not present Chest: Normal vesicular breath sounds, no added sounds, equal good air entry bilaterally CVS: S1-S2 regular, no murmurs, no tachycardia, no gallops, no rubs Abdomen: Soft, nontender, no organomegaly, bowel sounds present Neuro: No focal deficits, no facial deformity, AO x3, power 5/5 in all limbs ext: pitting edema B/L Data : 02/12/21 00:35 02/12/21 00:35 A&P Assessment and plan (1) Obstructive sleep apnea: Status: Acute (2) Anasarca: Status: Acute (3) Dyspnea: Status: Acute Qualifiers: Dyspnea type: dyspnea on exertion Qualified Code(s): R06.00 - Dyspnea, unspecified Additional A&P Information Patient presenting with dyspnea, anasarca in spite of recent up titration of her diuretics Extensive negative w/up thus far as noted above. Planned to undergo sleep oximetry study which we will order as inpatient. 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
[2021-02-12] MEDS: dexamethasone 4 mg Tablet 2 MG PO (09:22)
[2021-02-12] MEDS: metoprolol tartrate 25 mg Tablet PO ×2 (09:24→21:56)
[2021-02-12] MEDS: amlodipine 5 mg Tablet PO (09:25)
[2021-02-12] MEDS: spironolactone 25 mg Tablet PO ×2 (09:26→18:22)
[2021-02-12] MEDS: pantoprazole DR 40 mg Tablet PO (09:26)
--- NOTE | 2021-02-12 09:45 | PM.CONSULT ---
Providers/Reason For Consult Consulting Physician/Specialty*: Luigi Sellers MD/cardiology Reason for Consult*: Patient with recurrent peripheral edema and shortness of breath, consider right heart catheterization to rule out pulmonary hypertension Attending Physician: Jay Wright MD Primary Care Provider: Piedad Sandhu MD History of Present Illness History of Present Illness Carolyn Alexander is a 70 year old female is admitted to the hospital with complaints of worsening swelling of the lower extremities and shortness of breath. This patient had multiple recent hospital admissions for more low similar complaints. She is presenting with increasing swelling of the lower extremities. She has a baseline shortness of breath with activities which also seems to be getting worse. She has no chest pain. No fever or chills. Occasional dry cough. Most of her symptoms started since September of this year when she had the COVID-19 infection. According the patient, she been having marked swelling of the lower extremities and worsening shortness of breath. She was admitted to this hospital on 18 January with similar symptoms. She was treated with the diuretics and antihypertensive medications. She was found to have sinus tachycardia and was started on beta-isaiah. Her heart rate got under control. She is symptomatically improved and was discharged home. Since hospital discharge, she was admitted to [facility] with worsening shortness of breath and swelling, by her aligning checker. Her kidney function was abnormal. She was told by her aligning checker that she may have pulmonary hypertension. Her kidney function seems to be stable. She is known to have hypopituitarism and hypoadrenalism. She is on hormone supplements. She also has a chronically elevated white cell count. She has high inflammatory markers. The C-reactive protein was 10.3 on 01/26/2021. The BNP was 160 on 02/11/2021. She currently has no chest pain. No other specific complaints. She mainly concerned about the bilateral leg swelling. Review of Systems Narrative: CONSTITUTIONAL: No fever or chills. EYES: No blurring of vision or other visual disturbances lately. ENT: No hoarseness of voice, auditory disturbances or sore throat. CARDIOVASCULAR: As mentioned above. RESPIRATORY: Baseline shortness of breath with activities. Morbid obesity. GASTROINTESTINAL: No hematemesis or melena. GENITOURINARY: No dysuria or hematuria. INTEGUMENTARY: No skin rashes or history of skin cancer. NEURO: No transient ischemic attacks or amaurosis. PSYCHIATRIC: No history of psychosis or major depression. HEMATOLOGIC: No bleeding disorders or significant anemia. ENDOCRINE: No history of polyuria or polydipsia. MUSCULOSKELETAL: Lower extremity swelling as mentioned above. Meds/Allergies Home Medications and Allergies Home Medications Medication Instructions Recorded Confirmed Last Taken Type epinephrine 0.3 mg/0.3 mL 0.3 mg IM Q10M PRN #2 ea 04/20/20 02/11/21 Unknown Rx injection, auto-injector clotrimazole-betamethasone 1 1 applic TOPICAL BID 28 Days #45 g 11/11/20 02/11/21 01/17/21 Rx %-0.05 % topical cream cetirizine 10 mg tablet 10 mg PO QAM tab 01/04/21 02/11/21 02/11/21 History dexamethasone 1 mg tablet 2 mg PO QAM tab 01/04/21 02/11/21 02/11/21 History duloxetine 30 mg capsule,delayed 60 mg PO BEDTIME cap 01/04/21 02/11/21 02/10/21 History release Immune Vitamin C 1 tab PO DAILY 01/19/21 02/11/21 02/11/21 History Ozempic 1 mg SUBCUT Q7D 01/19/21 02/11/21 02/07/21 History allopurinol 100 mg PO DAILY PRN 01/19/21 02/11/21 Unknown History levothyroxine 175 mcg PO QAM 01/19/21 02/11/21 02/11/21 History oxybutynin chloride 10 mg PO QAM 01/19/21 02/11/21 02/11/21 History diabetic supplies, miscellan. #1 ea 01/21/21 02/11/21 Unknown Rx flash glucose scanning reader #1 ea 01/21/21 02/11/21 Unknown Rx flash glucose sensor #1 ea 01/21/21 02/11/21 Unknown Rx fluconazole 150 mg PO Q7D 01/26/21 02/11/21 02/07/21 History omeprazole 40 mg PO DAILY 01/26/21 02/11/21 02/11/21 History losartan 50 mg PO QAM #0 tab 01/29/21 02/11/21 02/11/21 Rx blood-glucose meter,continuous #1 ea 02/05/21 02/11/21 Unknown Rx miscellaneous medical supply #1 ea 02/05/21 02/11/21 Unknown Rx bumetanide 1 mg tablet 1 mg PO PRN PRN tab 02/08/21 02/11/21 Unknown History furosemide 20 mg tablet See Rx Instructions .ROUTE 02/08/21 02/11/21 02/11/21 History .COMPLEX tab amlodipine 5 mg PO DAILY PRN 02/11/21 02/11/21 Unknown History clonidine HCl 0.1 mg PO BID PRN 02/11/21 02/11/21 Unknown History metoprolol tartrate 25 mg PO BID PRN 02/11/21 02/11/21 Unknown History potassium chloride 10 mEq 80 meq PO TID cap 02/11/21 02/11/21 02/11/21 History capsule,extended release spironolactone 25 mg PO BID 02/11/21 02/11/21 02/11/21 History Allergies Allergy/AdvReac Type Severity Reaction Status Date / Time acetaminophen [From Tylenol] Allergy ALGY-Hives Verified 02/11/21 12:56 azithromycin Allergy ALGY-Anaphy Verified 02/11/21 12:56 laxis benzocaine Allergy ALGY-Hives Verified 02/11/21 12:56 butamben [From Cetacaine] Allergy ALGY-Swell Verified 02/11/21 12:56 Lip/Tongue/Throat codeine Allergy ALGY-Hives Verified 02/11/21 12:56 fentanyl Allergy ALGY-Anaphy Verified 02/11/21 12:56 laxis hydrocodone [From Vicodin] Allergy ALGY-Hives Verified 02/11/21 12:56 hydromorphone [From Dilaudid] Allergy ADR-Vomitin Verified 02/11/21 12:56 g Iodinated Contrast Media Allergy ALGY-Anaphy Verified 02/11/21 12:56 laxis liothyronine Allergy ADR-Nausea Verified 02/11/21 12:56 meperidine [From Demerol] Allergy Unknown Verified 02/11/21 12:56 morphine Allergy ALGY-Anaphy Verified 02/11/21 12:56 laxis nitrofurantoin Allergy ALGY-Joint Verified 02/11/21 12:56 [From Macrobid] Pain oxycodone [From Percocet] Allergy ALGY-Hives Verified 02/11/21 12:56 penicillin V Allergy ALGY-Hives Verified 02/11/21 12:56 Penicillins Allergy Unknown Verified 02/11/21 12:56 Phenothiazines Allergy ALGY-Anaphy Verified 02/11/21 12:56 laxis pregabalin [From Lyrica] Allergy ADV-Weaknes Verified 02/11/21 12:56 s procaine Allergy ALGY-Hives Verified 02/11/21 12:56 prochlorperazine Allergy ALGY-Anaphy Verified 02/11/21 12:56 [From Compazine] laxis Sulfa (Sulfonamide Allergy Unknown Verified 02/11/21 12:56 Antibiotics) tetracaine [From Cetacaine] Allergy ALGY-Swell Verified 02/11/21 12:56 Lip/Tongue/Throat Current Medications Current Medications Generic Name Dose Route Start Last Admin Trade Name Freq PRN Reason Stop Dose Admin Amlodipine Besylate 5 mg 02/12/21 09:00 02/12/21 09:25 Amlodipine 5 Mg Tablet PO 5 mg DAILY RAMIRO Administration Dexamethasone 2 mg 02/12/21 09:00 02/12/21 09:22 Dexamethasone 4 Mg Tablet PO 2 mg DAILY RAMIRO Administration Furosemide 60 mg 02/12/21 06:00 02/12/21 05:26 Furosemide 10 Mg/Ml Sdv 10ml IVP 60 mg Q12H RAMIRO Administration Levothyroxine Sodium 175 mcg 02/12/21 06:00 02/12/21 05:26 Levothyroxine 175 Mcg Tablet PO 175 mcg QAM RAMIRO Administration Losartan Potassium 50 mg 02/12/21 06:00 02/12/21 05:28 Losartan 50 Mg Tablet PO 50 mg QAM RAMIRO Administration Metoprolol Tartrate 25 mg 02/12/21 09:00 02/12/21 09:24 Metoprolol Tartrate 25 Mg Tablet PO 25 mg BID@0900,2100 RAMIRO Administration Non-Formulary Medication 40 mg 02/12/21 09:00 02/12/21 09:35 Omeprazole PO Not Given DAILY RAMIRO Pantoprazole Sodium 40 mg 02/12/21 09:00 02/12/21 09:[address] 40 Mg Tablet PO 40 mg DAILY RAMIRO Administration Spironolactone 25 mg 02/12/21 09:00 02/12/21 09:26 Spironolactone 25 Mg Tablet PO 25 mg BID RAMIRO Administration PFSH Acute PFSH: Medical History Adrenal insufficiency Anasarca Benign essential hypertension with target blood pressure below 140/90 Central hypothyroidism CHF (congestive heart failure) Chronic back pain Follows at pain clinic for periodic injections COVID-19 (~09/2020) Edema Facet arthritis, degenerative, lumbar spine History of anaphylaxis History of atrial fibrillation Intermittent, has not required long-term anticoagulation or focused treatment History of COVID-19 HTN (hypertension) Hyperaldosteronism 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 Mother Cancer Lung disease Grandfather Cancer Grandmother Dementia Denies family history of Diabetes CAD (coronary artery disease) Clotting disorder Chronic kidney disease (CKD) Suicide Anesthesia complication Bleeding disorder Stroke Social History Quit status (tobacco): has quit using tobacco Year quit tobacco: 50 years ago Second hand smoke exposure: No Alcohol intake: never Caregiver/support person: Yes Lives independently: Yes Household members: spouse Marital status: service: No Current occupational status: retired Current gender identity: Female Female Reproductive History: Date of last menstrual period: 01/22/21 Vitals/I&O/Wt Last Vital Signs Temp 98.6 F 02/12/21 07:05 Pulse 75 02/12/21 07:05 Resp 17 02/12/21 07:05 BP 153/85 02/12/21 07:05 Pulse Ox 97 02/12/21 07:05 02/11/21 02/12/21 02/12/21 22:59 06:59 14:59 Intake Total 120 / 120 Output Total 1100 / 1100 Balance 120 / 120 -1100 / -1100 Weight last 48 hrs Weight 352 lb Physical Exam Narrative: EXAM NARRATIVE: GENERAL: The patient is alert and oriented times three. Not in any acute distress. Morbidly obese HEENT: No significant pallor, icterus or lymphadenopathy.Oral cavity: There are no mucous membrane lesions. NECK: Trachea appears to be central. No masses noted. No JVD or thyromegaly appreciated. RESPIRATORY: Chest is symmetrical. No intercostals muscle retraction or any accessory muscle activation. There is no chest wall tenderness. Breath sounds are heard bilaterally. No rales or rhonchi heard. No evidence of any consolidation. BREASTS: Deferred. HEART: The heart sounds are normal. No S3 or S4. No significant murmurs. No pericardial rub ABDOMEN: No vessel pulsations or distention. No tenderness. No organomegaly appreciated. Bowel sounds are normally heard. : Deferred. RECTAL: Deferred. LYMPHATIC: No lymphadenopathy noted in the neck or groin. EXTREMITIES: 2+ edema both lower extremities. No cyanosis. MUSCULOSKELETAL: No acute joint deformities or swelling SKIN: There are no significant rashes or ecchymosis NEUROPSYCHIATRIC: The patient is alert and oriented x3. Appears to be in a good mood. No tremors or rigidity noted. Data Labs: Other Labs: Laboratory Last Values WBC 19.0 10^3/uL (4.0 -10.0) H 02/12/21 00:35 RBC 4.93 10^6/uL (4.1 -5.3) 02/12/21 00:35 Hgb 11.4 g/dL (11.5-1 5.3) L 02/12/21 00:35 Hct 38.8 % (37.0-47.0 ) 02/12/21 00:35 MCV 78.7 fl (81-99) L 02/12/21 00:35 MCH 23.1 pg (28.0-34. 0) L 02/12/21 00:35 MCHC 29.4 g/dL (30.0-3 6.0) L 02/12/21 00:35 RDW 16.4 % (12.1-15.1 ) H 02/12/21 00:35 Plt Count 312 10^3/cmm (130 -400) 02/12/21 00:35 MPV 9.3 fL (7.4-10.4) 02/12/21 00:35 Neut % (Auto) 72.6 % 02/12/21 00:35 Lymph % (Auto) 13.2 % 02/12/21 00:35 Titus % (Auto) 8.5 % 02/12/21 00:35 Eos % (Auto) 1.0 % 02/12/21 00:35 Baso % (Auto) 0.6 % 02/12/21 00:35 Neut # (Auto) 13.78 10^3/uL (1. 8-7.7) H 02/12/21 00:35 Lymph # (Auto) 2.5 10^3/uL (0.8- 4.8) 02/12/21 00:35 Titus # (Auto) 1.6 10^3/uL (0.2- 0.9) H 02/12/21 00:35 Eos # (Auto) 0.2 10^3/uL (0.0- 0.8) 02/12/21 00:35 Baso # (Auto) 0.1 10^3/uL (0.0- 0.1) 02/12/21 00:35 Nucleated RBC % (a uto) 0 % 02/12/21 00:35 Nucleated RBCs # 0.0 /100WBC 02/12/21 00:35 D-Dimer 0.82 ug/mIFEU (0- 0.59) H 02/11/21 18:30 Sodium 138 mmol/L (136-1 45) 02/12/21 00:35 Potassium 4.0 mmol/L (3.5-5 .1) 02/12/21 00:35 Chloride 100 mmol/L (98-10 7) 02/12/21 00:35 Carbon Dioxide 24 mmol/L (22-29) 02/12/21 00:35 Anion Gap 18.0 (5-19) 02/12/21 00:35 BUN 30 mg/dL (8-23) H 02/12/21 00:35 Creatinine 1.2 mg/dL (0.5-0. 9) H 02/12/21 00:35 GFR Calculation 44.7 mL/min (90-1 30) L 02/12/21 00:35 Glucose 170 mg/dL (65-115 ) H 02/12/21 00:35 Calculated Osmolal ity 296 mOsm/kg (285- 295) H 02/12/21 00:35 Calcium 8.7 mg/dL (8.5-10 .5) 02/12/21 00:35 Magnesium 2.5 mg/dL (1.7-2. 3) H 02/12/21 00:35 Total Bilirubin 0.2 mg/dL (0.15-1 .2) 02/12/21 00:35 AST 9 U/L (0-32) 02/12/21 00:35 ALT 27 U/L (0-33) 02/12/21 00:35 Alkaline Phosphata se 97 IU/L (35-105) 02/12/21 00:35 Troponin T Baselin e 14 ng/L (0-10) H 02/11/21 18:30 Troponin T 120 Min can 13.30 ng/L (0-10) H 02/11/21 20:46 Delta Troponin T -0.70 ABS# (0-10) L 02/11/21 20:46 Troponin T Hi Sens 6Hr 13.83 ng/L (0-10) H 02/12/21 00:35 Troponin T Hi Sens 6Hr Delta -0.17 ng/L (0-12) L 02/12/21 00:35 NT-Pro-B Natriuret Pep 160 pg/mL (0-125) H 02/11/21 18:30 Total Protein 5.8 g/dL (6.6-8.7 ) L 02/12/21 00:35 Albumin 3.7 g/dL (3.5-5.2 ) 02/12/21 00:35 Globulin 2.1 g/dL (1.3-4.6 ) 02/12/21 00:35 Imaging^: CXR: My impression: Borderline cardiac silhouette with no lung infiltrates. No acute pathology noted EKG^: EKG 1: My Interpretation: The EKG showed a sinus bradycardia with a rate of 58 bpm. Diffuse nonspecific T wave changes in the precordial leads QTC of 428. A&P Assessment and plan (1) Edema: Patient is a bilateral lower extremity edema is unexplained. It could be multifactorial. The morbid obesity, recent COVID-19 infection, high central venous pressure, etc. are contributing factors. Considering the possibility of pulmonary hypertension causing this, a right heart catheterization would be appropriate. The risk and benefits of this procedure were discussed with the patient The risk of bleeding, hematoma, vascular injury, infection and other concomitant complications were explained in detail. He understood this well and consented to proceed Status: Acute Qualifiers: Edema type: unspecified Qualified Code(s): R60.9 - Edema, unspecified (2) Dyspnea: Could be multifactorial. She has no clinical evidence of any left heart failure. Her BNP is minimally elevated. It still could be related to pulmonary hypertension. Hypoventilation syndrome/morbid obesity are contributing factors. Status: Acute Qualifiers: Dyspnea type: dyspnea on exertion Qualified Code(s): R06.00 - Dyspnea, unspecified (3) Chronic kidney disease, stage 3a: Kidney function appears to be stable. Status: Acute (4) Type 2 diabetes mellitus with other diabetic kidney complication: The blood glucose is 170. Aggressive management would be appropriate. 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
--- NOTE | 2021-02-12 10:13 | W.PM.OPSUD ---
Surgery/Procedure H&P Update DATE OF PROCEDURE: February 12, 2021 DATE H&P PERFORMED: 02/12/21 H&P UPDATE INFORMATION: I have reviewed H&P completed within last 30 days, I have examined patient prior to procedure and No changes to prior documentation PREOP DIAGNOSIS: Pulmonary hypertension PRIMARY INDICATION FOR PROCEDURE: Shortness of breath/peripheral edema/morbid obesity PATIENT REASSESSED PRIOR TO SEDATION, WITH NO CHANGE NOTED: Yes PHYSICAL EXAM: alert, clear to auscultation bilaterally and regular rate & rhythm AIRWAY EVAL/ANESTHESIA PLAN: normal airway, see other exam findings, ASA IV, Monitored Anesthesia, Local Anesthesia, Risks, benefits & alternatives of sedation and/or procedure discussed and Patient agrees to continue as planned
--- NOTE | 2021-02-12 10:17 | XACV_ITS ---
Carolyn Alexander Age: 70 Gender: F : 1950 Exam Date: 02/12/2021 13:49 Ordering Phys: Chris Sellers MD ([email or web address]) Technologist: AB Exam Location: [facility] – [place] Indication: pericaritis BP: / HR: 65 Rhythm: Sinus Technical Quality: MEASUREMENTS (Male / Female) Normal Values 2D ECHO LV Diastolic Diameter PLAX 4.4 cm 4.2 - 5.9 / 3.9 - 5.3 cm LV Systolic Diameter PLAX 2.6 cm LV Chamber Size 1.8 cm IVS Diastolic Thickness 1.4 cm 0.6 - 1.0 / 0.6 - 0.9 cm IVS Systolic Thickness 2.6 cm LVPW Diastolic Thickness 1.7 cm 0.6 - 1.0 / 0.6 - 0.9 cm LVPW Systolic Thickness 1.6 cm RV Chamber Size 4.0 cm LVOT Diameter 2.0 cm LV Ejection Fraction 2D Teich 72.3 % LA Diameter 3.8 cm LA Width 4.4 cm LA Height 4.5 cm RA Width 3.0 cm RA Height 4.1 cm Aorta at Sinotubular Diameter 3.3 cm M-MODE LV Diastolic Diameter MM 4.8 cm 4.2 - 5.9 / 3.9 - 5.3 cm LV Systolic Diameter MM 3.3 cm LV Ejection Fraction MM Teich 56.7 % IVS Diastolic Thickness MM 1.4 cm 0.6 - 1.0 / 0.6 - 0.9 cm IVS Systolic Thickness MM 1.9 cm LVPW Diastolic Thickness MM 1.5 cm 0.6 - 1.0 / 0.6 - 0.9 cm LVPW Systolic Thickness MM 1.8 cm Aortic Annulus Diameter 2.9 cm LA Ao Ratio MM 1.5 MV E Point Septal Separation 0.9 cm DOPPLER TR Peak Velocity 119.6 cm/s TR Peak Gradient 5.7 mmHg TR Mean Velocity 77.0 cm/s TR Mean Gradient 2.9 mmHg TR Velocity Time Integral 25.7 cm TV Peak E Velocity 50.0 cm/s PV Peak Velocity 89.0 cm/s RV Acceleration Time 0.1 s RV Ejection Time 0.3 s RV AcT/ET 0.3 FINDINGS Left Ventricle Normal LV size and ejection fraction of 72%. No significant wall motion of abnormalities. Features are grade 1 left ventricular diastolic dysfunction Right Ventricle Appears to be normal size and ejection fraction Right Atrium Appears to be of normal size Left Atrium Appears to be of normal size Mitral Valve No gross abnormalities noted Aortic Valve No gross abnormalities noted Tricuspid Valve No gross abnormalities noted Pulmonic Valve Pulmonic valve not well visualized. Pericardium Small pericardial effusion. IVC was found to be dilated measuring 3.2 cm in diameter Aorta Normal aortic annulus size. CONCLUSIONS Normal LV size and ejection fraction of 72%. No significant wall motion of abnormalities. No significant septal wall motion abnormalities were noted Features are grade 1 left ventricular diastolic dysfunction. Small pericardial effusion. IVC was found to be dilated. Could not document any diastolic flow reversal Tissue Doppler was not done Dr Chris Sellers MD FACC (Electronically Signed) Final Date: 12 February 2021 14:36 S
--- NOTE | 2021-02-12 13:05 | PC.CHAP ---
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 superintendent ammunition storage visit [] Patient/Family/Request visit [] Outpatient visit [] Follow-up visit [] Physician referral [] Code/Alert [xx] Routine visit [] Staff referral [] Actively dying [] Patient sleeping [] Family support [] [] Out of room [] Palliative care [] [xx] Receiving care in room [] Pre-surgical visit [] Trauma [] Long length of stay [] ICU visit [] Other: Relational/Emotional Strength [] Patient feels connected with others/family/visitors/staff [] Distress [] Loneliness/isolation [] Abandonment Spirituality of Patient [] Person of Minoo [] Attends Episcopalian of their [place] [] Believes in Prayer [] Reads Bible or Baptism materials [] There are Spiritual issues to be addressed Roller Bearing Inspector Interventions [] Prayer [] Active listening [] Non-anxious presence [] Spiritual/emotional support [] Crisis/trauma care [] Spiritual counseling [] Bereavement support [] Provided bereavement packet [] Provided Bible/devotional materials [] Provided toy/stuffed animal, coloring book to patient or family member [] Provided Communion [] Anointing/[place] [] Salvation [] Completed spiritual assessment [] Other: Impact on Illness or Injury [] Angry [] Fearful [] Anxious [] Often cries [] Exhaustion [] Unable to work [] Unable to attend bahai [] Unable to walk/stand [] Unable to read [] Unable to drive [] Unable to eat/drink [] Unable to sleep [] Unable to be with family [] Patient intubated [] Other: Summary Patient busy with therapist. Follow up later. Time spent with patient 1 minute
--- NOTE | 2021-02-12 13:13 | USCV_ITS ---
Carolyn Alexander Age: 70 Gender: F : 1950 Exam Date: 02/12/2021 13:49 Ordering Phys: Chris Sellers MD ([email or web address]) Technologist: AB Exam Location: [facility] [place] Indication: pericaritis BP: / HR: 65 Rhythm: Sinus Technical Quality: MEASUREMENTS (Male / Female) Normal Values 2D ECHO LV Diastolic Diameter PLAX 4.4 cm 4.2 - 5.9 / 3.9 - 5.3 cm LV Systolic Diameter PLAX 2.6 cm LV Chamber Size 1.8 cm IVS Diastolic Thickness 1.4 cm 0.6 - 1.0 / 0.6 - 0.9 cm IVS Systolic Thickness 2.6 cm LVPW Diastolic Thickness 1.7 cm 0.6 - 1.0 / 0.6 - 0.9 cm LVPW Systolic Thickness 1.6 cm RV Chamber Size 4.0 cm LVOT Diameter 2.0 cm LV Ejection Fraction 2D Teich 72.3 % LA Diameter 3.8 cm LA Width 4.4 cm LA Height 4.5 cm RA Width 3.0 cm RA Height 4.1 cm Aorta at Sinotubular Diameter 3.3 cm M-MODE LV Diastolic Diameter MM 4.8 cm 4.2 - 5.9 / 3.9 - 5.3 cm LV Systolic Diameter MM 3.3 cm LV Ejection Fraction MM Teich 56.7 % IVS Diastolic Thickness MM 1.4 cm 0.6 - 1.0 / 0.6 - 0.9 cm IVS Systolic Thickness MM 1.9 cm LVPW Diastolic Thickness MM 1.5 cm 0.6 - 1.0 / 0.6 - 0.9 cm LVPW Systolic Thickness MM 1.8 cm Aortic Annulus Diameter 2.9 cm LA Ao Ratio MM 1.5 MV E Point Septal Separation 0.9 cm DOPPLER TR Peak Velocity 119.6 cm/s TR Peak Gradient 5.7 mmHg TR Mean Velocity 77.0 cm/s TR Mean Gradient 2.9 mmHg TR Velocity Time Integral 25.7 cm TV Peak E Velocity 50.0 cm/s PV Peak Velocity 89.0 cm/s RV Acceleration Time 0.1 s RV Ejection Time 0.3 s RV AcT/ET 0.3 FINDINGS Left Ventricle Normal LV size and ejection fraction of 72%. No significant wall motion of abnormalities. Features are grade 1 left ventricular diastolic dysfunction Right Ventricle Appears to be normal size and ejection fraction Right Atrium Appears to be of normal size Left Atrium Appears to be of normal size Mitral Valve No gross abnormalities noted Aortic Valve No gross abnormalities noted Tricuspid Valve No gross abnormalities noted Pulmonic Valve Pulmonic valve not well visualized. Pericardium Small pericardial effusion. IVC was found to be dilated measuring 3.2 cm in diameter Aorta Normal aortic annulus size. CONCLUSIONS Normal LV size and ejection fraction of 72%. No significant wall motion of abnormalities. No significant septal wall motion abnormalities were noted Features are grade 1 left ventricular diastolic dysfunction. Small pericardial effusion. IVC was found to be dilated. Could not document any diastolic flow reversal Tissue Doppler was not done Dr Chris Sellers MD FACC (Electronically Signed) Final Date: 12 February 2021 14:36 S
[2021-02-12 13:19] LABS: Arterial Blood Gas Hematocrit 37.1 % (37-47); Blood Gas Operator Identificat PULM ARTERY; Blood Gas Sample Site Not specified; Blood Gas Sample Type Not specified; HGB O2 Sat 59.4 % (95-100); Methemoglobin 0.8 % (0.4-1.5); Oxygen Device ROOM AIR; Total Hemoglobin 12.1 g/dL (12-16)
[2021-02-12 13:20] LABS: Blood Gas Sample Site Not specified; Blood Gas Sample Type Not specified; Carboxyhemoglobin 0.9 %THgb (0.4-20.1); HGB O2 Sat 62.4 % (95-100); Methemoglobin 0.7 % (0.4-1.5); Oxygen Device ROOM AIR; Total Hemoglobin 11.7 g/dL (12-16)
--- NOTE | 2021-02-12 15:12 | P.PN_ITS ---
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 has her on 100 mg of Lasix daily with 100 mg of losartan, she continued to have lower extremity edema despite all of this, she feels more short of breath, no chest pain, no palpitations, Vitals/I&O/Wt Last Vital Signs Temp 98.1 F 02/12/21 12:29 Pulse 63 02/12/21 12:29 Resp 17 02/12/21 12:29 BP 154/82 02/12/21 12:29 Pulse Ox 97 02/12/21 12:29 02/12/21 02/12/21 02/12/21 06:59 14:59 22:59 Intake Total 120 / 120 120 / 120 Output Total 1100 / 1100 Balance 120 / 120 -980 / -980 Weight last 48 hrs Weight 159.665 kg Physical Exam Const: COMMON NORMALS: no acute distress and patient oriented x3 Resp: COMMON NORMALS: normal respiratory effort, No retractions, No use of accessory muscles and clear to auscultation bilaterally AUSCULTATION: clear to auscultation bilaterally Cardio: COMMON NORMALS: regular rate, regular rhythm, S1 normal heart sound present and S2 normal heart sound present RATE: regular rate RHYTHM: regular rhythm HEART SOUNDS: S1 normal heart sound present and S2 normal heart sound present GI: COMMON NORMALS: Normal to inspection, nondistended, normoactive bowel sounds present, Soft to palpation and non-tender PALPATION: Yes Soft to palpation Extremity: NARRATIVE EXTREMITY EXAM: 1+ pitting edema bilaterally Neuro: COMMON NORMALS: patient oriented x3 Psych: COMMON NORMALS: mental status grossly normal Data : 02/12/21 00:35 02/12/21 00:35 A&P Assessment and plan (1) Obstructive sleep apnea: Status: Acute (2) Anasarca: Status: Acute (3) Dyspnea: Status: Acute Qualifiers: Dyspnea type: dyspnea on exertion Qualified Code(s): R06.00 - Dyspnea, unspecified Additional A&P Information Patient presenting with dyspnea, anasarca in spite of recent up titration of her diuretics Extensive negative w/up thus far as noted above. Planned to undergo sleep oximetry study which we will order as inpatient. PFT will need completion as outpatient Cardiology consult to assess for right heart cath lasix 60mg IVP q12h for now monitor renal function closely, recent RODRIGUE, urine output Persistent leukocytosis, BCR able negative, is following up with Dr. Hill as outpatient Attestations Medical Necessity Statement*: Patient requires hospitalization for bilateral extremity edema, anasarca, undergoing right heart cath Coding Level of Care Code Acute Real Estate Inspector for Chg Fwd Diagnoses Obstructive sleep apnea G47.33 Anasarca R60.1 Dyspnea R06.00 Dyspnea type: dyspnea on exertion
[2021-02-12 19:07] LABS: Anion Gap 17.8 (5-19); Blood Urea Nitrogen 31 mg/dL (8-23); Calcium 9.6 mg/dL (8.5-10.5); Carbon Dioxide 27 mmol/L (22-29); Chloride 96 mmol/L (98-107); Glomerular Filtration Rate 40.7 mL/min (90-130); Glucose 150 mg/dL (65-115); Osmolality Calculated 291 mOsm/kg (285-295); Potassium 4.8 mmol/L (3.5-5.1); Sodium 136 mmol/L (136-145)
[2021-02-12] MEDS: duloxetine 60 mg Capsule PO (21:55)
[2021-02-13] VITALS: BP 132/68; PULSE 54; RESP 16; TEMP 36.6; O2SAT 97
--- NOTE | 2021-02-13 00:34 | PC.RESP ---
RT placed pt on overnight pulse ox att, pt on room air. Alarms set. Will continue to monitor
--- NOTE | 2021-02-13 03:51 | ECG_ITS ---
[facility] Test Date: 2021-02-13 Pat Name: Carolyn Alexander Department: Room: 255 Gender: Female Health Inspector Food: : 1950 Requested By: Shea Guardado Order Number: [id number] Laina MD: Chris Sellers M.D. Measurements Intervals [place] Rate: 64 P: 49 MA: 145 QRS: -18 QRSD: 101 T: 64 QT: 428 QTc: 444 Interpretive Statements SINUS RHYTHM MODERATE T-WAVE ABNORMALITY, CONSIDER ANTERIOR ISCHEMIA [-0.1+ mV T-WAVE IN V3/V4] Compared to ECG 02/12/2021 00:39:30 Sinus bradycardia no longer present T-wave abnormality still present Possible ischemia still present Electronically Signed On 02-13-2021 22:01:03 ACCESS SPECIALIST by Chris Sellers M.D. [id number]
[2021-02-13 04:00] VITALS: BP 135/74; PULSE 73; RESP 19; TEMP 36.6; O2SAT 93
--- NOTE | 2021-02-13 04:09 | PC.NURSE ---
Patient complained of chest tightness with palpitations. Patient states she can feel tightness up in her throat. Vitals WNL, telemetry shows SR with intermittent ST. Telemetry strip in chart. EKG ordered. Physician notified with orders placed.
[2021-02-13] MEDS: FUROsemide 10 mg/mL SDV 10mL 60 MG IVP (05:25)
[2021-02-13] MEDS: ALPRAZolam 0.5 mg Tablet 0.25 MG PO (05:35)
[2021-02-13 05:45] VITALS: BP 135/74
[2021-02-13] MEDS: losartan 50 mg Tablet PO (05:45)
[2021-02-13] MEDS: levothyroxine 175 mcg Tablet PO (05:46)
[2021-02-13] MEDS: pramipexole 0.25 mg Tablet PO (05:46)
[2021-02-13 06:00] VITALS: PULSE 74
[2021-02-13 06:38] LABS: Basophils # 0.1 10^3/uL (0.0-0.1); Basophils % 0.6 %; Eosinophils # 0.2 10^3/uL (0.0-0.8); Eosinophils % 1.2 %; Hematocrit 39.4 % (37.0-47.0); Hemoglobin 11.6 g/dL (11.5-15.3); Lymphocytes # 3.1 10^3/uL (0.8-4.8); Lymphocytes % 16.2 %; Mean Corpuscular HGB Conc 29.4 g/dL (30.0-36.0); Mean Corpuscular Hemoglobin 23.6 pg (28.0-34.0); Mean Corpuscular Volume 80.1 fl (81-99); Mean Platelet Volume 9.7 fL (7.4-10.4); Monocytes # 1.8 10^3/uL (0.2-0.9); Monocytes % 9.5 %; Neutrophils # 12.98 10^3/uL (1.8-7.7); Neutrophils % 68.1 %; Nucleated Red Blood Cells % 0.1 %; Platelet Count 315 10^3/cmm (130-400); Red Blood Count 4.92 10^6/uL (4.1-5.3); Red Cell Distribution Width 16.5 % (12.1-15.1); White Blood Count 19.1 10^3/uL (4.0-10.0)
[2021-02-13 07:12] LABS: Alanine Aminotransferase 29 U/L (0-33); Albumin Level 3.3 g/dL (3.5-5.2); Alkaline Phosphatase 103 IU/L (35-105); Anion Gap 15.4 (5-19); Aspartate Amino Transferase 13 U/L (0-32); Blood Urea Nitrogen 38 mg/dL (8-23); Calcium 9.1 mg/dL (8.5-10.5); Carbon Dioxide 27 mmol/L (22-29); Chloride 94 mmol/L (98-107); Globulin 2.7 g/dL (1.3-4.6); Glomerular Filtration Rate 37.4 mL/min (90-130); Glucose 165 mg/dL (65-115); Magnesium 2.5 mg/dL (1.7-2.3); NT Pro B Type Natriuretic Pept 182 pg/mL (0-125); Osmolality Calculated 289 mOsm/kg (285-295); Phosphorus 4.5 mg/dL (2.5-4.5); Potassium 3.4 mmol/L (3.5-5.1); Sodium 133 mmol/L (136-145); Total Bilirubin 0.3 mg/dL (0.15-1.2)
[2021-02-13 07:57] VITALS: BP 127/78; PULSE 65; RESP 18; TEMP 37.1; O2SAT 92
[2021-02-13 09:06] VITALS: BP 127/78; PULSE 65; RESP 18; TEMP 37.1; O2SAT 92
--- NOTE | 2021-02-13 09:07 | PC.NURSE ---
Patient is A&Ox3. Respirations even and non-labored on room air. Patient transported via EMS to [facility] in [place].
--- NOTE | 2021-02-22 15:51 | P.TS_ITS ---
Transfer Summary Providers Date of Admission: 02/11/21 21:35 Date of Discharge: 02/22/21 Attending Provider at Admission: Shea Guardado MD Attending Provider at Transfer: Jay Wright MD Primary Care Provider: Piedad Sandhu MD Anticipated Date of Transfer: Anticipated date of transfer: 02/22/21 Receiving Facility & Provider: Receiving Provider: [] Receiving facility: [] Diagnoses at Discharge Discharge Diagnosis (1) Obstructive sleep apnea: Status: Acute (2) Anasarca: Status: Acute (3) Dyspnea: Status: Acute Qualifiers: Dyspnea type: dyspnea on exertion Qualified Code(s): R06.00 - Dyspnea, unspecified Reason for Visit Reason for Visit: SOB, FLUID OVERLOAD P/ [facility] Course Hospital Course This is a 70-year-old female with a past medical history of KP currently not on CPAP due to recall, history of adrenal insufficiency, central hypothyroidism, CHF, history of anaphylaxis, history of atrial fibrillation not on anticoagulation, hypertension, hypoaldosteronism, 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 Patient underwent right heart cardiac catheterization, with findings of Normal LV size and ejection fraction of 72%. No significant wall motion of abnormalities. No significant septal wall motion abnormalities were noted Features are grade 1 left ventricular diastolic dysfunction. Small pericardial effusion. IVC was found to be dilated. 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 After discussion with cardiology, patient would require a cardiac CT, and evaluation by CT surgeon. Patient was transferred to [facility] Dr. Hanley. Physical Exam Const: COMMON NORMALS: no acute distress and patient oriented x3 Resp: COMMON NORMALS: normal respiratory effort, No retractions, No use of accessory muscles and clear to auscultation bilaterally AUSCULTATION: clear to auscultation bilaterally Cardio: COMMON NORMALS: regular rate, regular rhythm, S1 normal heart sound present and S2 normal heart sound present RATE: regular rate RHYTHM: regular rhythm HEART SOUNDS: S1 normal heart sound present and S2 normal heart sound present GI: COMMON NORMALS: Normal to inspection, nondistended, normoactive bowel sounds present, Soft to palpation and non-tender PALPATION: Yes Soft to palpation Extremity: COMMON NORMALS: no pedal edema Neuro: COMMON NORMALS: patient oriented x3 Psych: COMMON NORMALS: mental status grossly normal TS Data Data Completed and Pending: Completed Studies During Hospitalization Category Date Time Status ELECTRICAL PROJECT MANAGER request for service Routin e Exams 02/12/21 10:17 Completed XR chest 1V anneliese ble [id number] Stat Exams 02/11/21 17:36 Completed CV. echo lmt w co finn 09999/25 Urgen t Ultrasound 02/12/21 13:13 Completed Vitals: Last Vital Signs Temp 98.7 F 02/13/21 09:06 Pulse 65 02/13/21 09:06 Resp 18 02/13/21 09:06 BP 127/78 02/13/21 09:06 Pulse Ox 92 02/13/21 09:06 TS Medications Medications Home Medications epinephrine 0.3 mg/0.3 mL injection, auto-injector 0.3 mg IM Q10M PRN #2 ea 04/20/20 [Rx Confirmed 02/11/21] clotrimazole-betamethasone 1 %-0.05 % topical cream 1 applic TOPICAL BID 28 Days #45 g 11/11/20 [Rx Confirmed 02/11/21] cetirizine 10 mg tablet 10 mg PO QAM tab 01/04/21 [History Confirmed 02/11/21] dexamethasone 1 mg tablet 2 mg PO QAM tab 01/04/21 [History Confirmed 02/11/21] duloxetine 30 mg capsule,delayed release 60 mg PO BEDTIME cap 01/04/21 [History Confirmed 02/11/21] Immune Vitamin C 1 tab PO DAILY 01/19/21 [History Confirmed 02/11/21] Ozempic 1 mg SUBCUT Q7D 01/19/21 [History Confirmed 02/11/21] allopurinol 100 mg PO DAILY PRN 01/19/21 [History Confirmed 02/11/21] levothyroxine 175 mcg PO QAM 01/19/21 [History Confirmed 02/11/21] oxybutynin chloride 10 mg PO QAM 01/19/21 [History Confirmed 02/11/21] diabetic supplies, miscellan. #1 ea 01/21/21 [Rx Confirmed 02/11/21] flash glucose scanning reader #1 ea 01/21/21 [Rx Confirmed 02/11/21] flash glucose sensor #1 ea 01/21/21 [Rx Confirmed 02/11/21] fluconazole 150 mg PO Q7D 01/26/21 [History Confirmed 02/11/21] omeprazole 40 mg PO DAILY 01/26/21 [History Confirmed 02/11/21] losartan 50 mg PO QAM #0 tab 01/29/21 [Rx Confirmed 02/11/21] blood-glucose meter,continuous #1 ea 02/05/21 [Rx Confirmed 02/11/21] miscellaneous medical supply #1 ea 02/05/21 [Rx Confirmed 02/11/21] bumetanide 1 mg tablet 1 mg PO PRN PRN tab 02/08/21 [History Confirmed 02/11/21] furosemide 20 mg tablet See Rx Instructions .ROUTE .COMPLEX tab 02/08/21 [History Confirmed 02/11/21] amlodipine 5 mg PO DAILY PRN 02/11/21 [History Confirmed 02/11/21] clonidine HCl 0.1 mg PO BID PRN 02/11/21 [History Confirmed 02/11/21] metoprolol tartrate 25 mg PO BID PRN 02/11/21 [History Confirmed 02/11/21] potassium chloride 10 mEq capsule,extended release 80 meq PO TID cap 02/11/21 [History Confirmed 02/11/21] spironolactone 25 mg PO BID 02/11/21 [History Confirmed 02/11/21] pramipexole 0.125 mg PO BEDTIME 02/13/21 [History Confirmed 02/13/21] Discharge Plan Discharge Patient Disposition: [facility] Intermediate [facility] Fac Condition: Stable Prescriptions: No Action epinephrine [EpiPen 2-Nabeel] 0.3 mg/0.3 mL auto-injector 0.3 mg IM Q10M PRN (Reason: anaphylaxis) Qty: 2 RF: 3 duloxetine [Cymbalta] 30 mg capsule,delayed release(DR/EC) 60 mg PO BEDTIME RF: 0 cetirizine 10 mg tablet 10 mg PO QAM RF: 0 (DME) blood-glucose meter,continuous Misc See Rx Instructions .Route Qty: 1 RF: 0 (DME) miscellaneous medical supply Misc See Rx Instructions .Route Qty: 1 RF: 0 dexamethasone 1 mg tablet 2 mg PO QAM RF: 0 clotrimazole-betamethasone 1-0.05 % cream 1 applic topical BID 28 Days Qty: 45 RF: 1 bumetanide 1 mg tablet 1 mg PO PRN PRN (Reason: Edema) RF: 0 Lasix 20 mg tablet See Rx Instructions .ROUTE .COMPLEX RF: 0 potassium chloride 10 mEq capsule, extended release 80 meq PO TID RF: 0 (DME) FreeStyle Daniel 2 [place] Misc See Rx Instructions .Route Qty: 1 RF: 0 (DME) FreeStyle Daniel 2 Sensor Kit See Rx Instructions .Route Qty: 1 RF: 3 levothyroxine 175 mcg tablet 175 mcg PO QAM RF: 0 Ozempic 1 mg/dose (2 mg/1.5 mL) pen injector 1 mg SUBCUT Q7D RF: 0 oxybutynin chloride 10 mg tablet extended release 24hr 10 mg PO QAM RF: 0 allopurinol 100 mg tablet 100 mg PO DAILY PRN (Reason: GOUT) RF: 0 Immune Vitamin C 1 tab PO DAILY RF: 0 (DME) diabetic supplies, miscellan. Misc See Rx Instructions .Route Qty: 1 RF: 0 fluconazole 150 mg tablet 150 mg PO Q7D RF: 0 omeprazole 40 mg capsule,delayed release(DR/EC) 40 mg PO DAILY RF: 0 losartan 100 mg tablet 50 mg PO QAM Qty: 0 RF: 0 clonidine HCl 0.1 mg tablet 0.1 mg PO BID PRN (Reason: Blood Pressure) RF: 0 metoprolol tartrate 25 mg tablet 25 mg PO BID PRN (Reason: Blood Pressure) RF: 0 amlodipine 5 mg Tablet 5 mg PO DAILY PRN (Reason: Blood Pressure) RF: 0 spironolactone 25 mg tablet 25 mg PO BID RF: 0 pramipexole 0.125 mg tablet 0.125 mg PO BEDTIME RF: 0 Patient Instructions: Opioid Safety Transfer Attestations Time Spent in Transfer Care*: less than 30 min Quality Metrics Clinical Quality Measures: During this hospital stay, did patient experience: None Coding Level of Care Code Acute Plastics Patternmaker for Chg Fwd Diagnoses Obstructive sleep apnea G47.33 Anasarca R60.1 Dyspnea R06.00 Dyspnea type: dyspnea on exertion
== END 2021-02-13 08:45 | disposition short-term general hospital (02) | DRG 287 ==
LOC: ER 17:38 → MEDSURG 22:07
PROVIDERS: Emergency Medicine; Internal Medicine Cardiovascular Disease; Admitting Provider Student in an Organized Health Care Education/Training Program; Emergency Provider Physician Assistant; PCP Family Medicine; Visit Provider Family Medicine
PROC: 4A023N6 Measurement of Cardiac Sampling and Pressure, Right Heart, Percutaneous Approach (ICD-10-PCS; principal; 2021-02-12 10:00)
DX: I31.1 Chronic constrictive pericarditis (principal); I13.0 Hypertensive heart and chronic kidney disease with heart failure and stage 1 through stage 4 chronic kidney disease, or unspecified chronic kidney disease; E23.0 Hypopituitarism; Z68.43 Body mass index [BMI] 50.0-59.9, adult; E27.40 Unspecified adrenocortical insufficiency; I27.20 Pulmonary hypertension, unspecified; I50.9 Heart failure, unspecified; N18.31 Chronic kidney disease, stage 3a; E11.22 Type 2 diabetes mellitus with diabetic chronic kidney disease; G89.29 Other chronic pain; Z86.16 Personal history of COVID-19; M47.816 Spondylosis without myelopathy or radiculopathy, lumbar region; E66.01 Morbid (severe) obesity due to excess calories; Z79.52 Long term (current) use of systemic steroids; I48.91 Unspecified atrial fibrillation; G47.33 Obstructive sleep apnea (adult) (pediatric); D75.1 Secondary polycythemia; Z87.891 Personal history of nicotine dependence; Z96.82 Presence of neurostimulator
CPT/HCPCS: 36415; 71045; 80048; 80053; 82810; 83735; 83880; 84100; 84484; 85025; 85378; 93005; 93308; 93325; 93451; 94762; 96374; 99285; C1751; C1769; C1894; J1644; J1940; J2250; J3010; J7030; J8540

== ENCOUNTER 2021-02-28 00:48 | Inpatient (IN) | payer MEDICARE, OTHER, SELFPAY ==
[2021-02-28] VITALS (11 sets, daily range): BP systolic 88–171; BP diastolic 63–112; PULSE 78–101; RESP 15–24; TEMP 20.2–37.1; O2SAT 92–99; BMI 58.6
--- NOTE | 2021-02-28 01:54 | XRR_ITS ---
PROCEDURE INFORMATION: Exam: XR Chest Exam date and time: 02/28/2021 1:54 AM Age: 70 years old Clinical indication: Dyspnea; Additional info: SOB TECHNIQUE: Imaging protocol: XR of the chest. Views: 1 view. COMPARISON: CR XR chest 1V portable [id number] 02/11/2021 5:43 PM FINDINGS: Lungs: No definite CHF/pulmonary edema. Visible lungs appear essentially clear. Evaluation of the lung bases is difficult/limited due to the poor inspiration. Pleural spaces: No visible pneumothorax. No definite pleural fluid. Heart/Mediastinum: Heart size is probably upper range of normal. Bones/joints: No significant acute finding. Other findings: Poor inspiration somewhat limits evaluation. XR/XR chest 1V portable [id number] IMPRESSION: 1. No definite CHF or pneumonia. 2. Other findings discussed above. Radiation Dose CTDIVOL = (mGy): DLP = (mGy-cm)
--- NOTE | 2021-02-28 01:56 | ECG_ITS ---
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 Measurements Intervals [place] Rate: 80 P: 61 NV: 144 QRS: -22 QRSD: 91 T: 67 QT: 392 QTc: 454 Interpretive Statements SINUS RHYTHM BORDERLINE LEFT AXIS DEVIATION [QRS AXIS < -20] Compared to ECG 02/13/2021 05:33:38 T-wave abnormality no longer present Possible ischemia no longer present Electronically Signed On 02-28-2021 13:16:34 STOCKBROKING DEALER by Bahman Rowland M.D. [id number]
[2021-02-28 02:24] LABS: Basophils # 0.1 10^3/uL (0.0-0.1); Basophils % 0.7 %; Eosinophils # 0.5 10^3/uL (0.0-0.8); Eosinophils % 2.4 %; Hematocrit 36.7 % (37.0-47.0); Hemoglobin 10.8 g/dL (11.5-15.3); Lymphocytes # 2.3 10^3/uL (0.8-4.8); Mean Corpuscular HGB Conc 29.4 g/dL (30.0-36.0); Mean Corpuscular Hemoglobin 23.5 pg (28.0-34.0); Mean Platelet Volume 9.9 fL (7.4-10.4); Monocytes # 1.5 10^3/uL (0.2-0.9); Monocytes % 7.9 %; Neutrophils # 14.12 10^3/uL (1.8-7.7); Neutrophils % 74.2 %; Nucleated Red Blood Cells % 0 %; Platelet Count 260 10^3/cmm (130-400); Red Blood Count 4.59 10^6/uL (4.1-5.3); Red Cell Distribution Width 16.7 % (12.1-15.1)
[2021-02-28] MEDS: FUROsemide 10 mg/mL SDV 10mL 80 MG IVP (02:28)
[2021-02-28] MEDS: vancomycin 1,000 MG in sodium chloride 0.9% 250 ML 250 MG IV (02:29)
[2021-02-28 02:37] LABS: Lactic Sepsis W/Reflex 2.7 mmol/L (0.5-2.2)
[2021-02-28 02:39] LABS: Troponin(5th) Baseline 17 ng/L (0-10)
[2021-02-28 02:47] LABS: NT Pro B Type Natriuretic Pept 93 pg/mL (0-125); Procalcitonin 0.06 ng/mL (0-0.5)
[2021-02-28 02:58] LABS: Alanine Aminotransferase 29 U/L (0-33); Albumin Level 3.8 g/dL (3.5-5.2); Alkaline Phosphatase 84 IU/L (35-105); Aspartate Amino Transferase 11 U/L (0-32); Blood Urea Nitrogen 22 mg/dL (8-23); C Reactive Protein 49.1 mg/L (0.0-4.9); Calcium 8.8 mg/dL (8.5-10.5); Carbon Dioxide 23 mmol/L (22-29); Chloride 98 mmol/L (98-107); Glomerular Filtration Rate 34.5 mL/min (90-130); Glucose 175 mg/dL (65-115); Osmolality Calculated 292 mOsm/kg (285-295); Sodium 137 mmol/L (136-145); Total Bilirubin 0.3 mg/dL (0.15-1.2); Total Protein 5.8 g/dL (6.6-8.7)
--- NOTE | 2021-02-28 03:56 | ECG_ITS ---
[facility] Test Date: 2021-02-28 Pat Name: Carolyn Alexander Department: Room: 270 Gender: Female Director Orange: : 1950 Requested By: Zaheer Morgan Order Number: [id number] Laina MD: Bahman Rowland M.D. Measurements Intervals [place] Rate: 67 P: 55 NC: 152 QRS: 4 QRSD: 102 T: 53 QT: 461 QTc: 490 Interpretive Statements SINUS RHYTHM WITH OCCASIONAL SUPRAVENTRICULAR PREMATURE COMPLEXES LOW QRS VOLTAGE IN PRECORDIAL LEADS [QRS DEFLECTION < 1.0 mV IN CHEST LEADS] POSSIBLE RIGHT VENTRICULAR CONDUCTION DELAY [RSR (QR) IN V1/V2] PROLONGED QT INTERVAL Compared to ECG 02/28/2021 02:05:24 Low QRS voltage now present Prolonged QT interval now present Electronically Signed On 02-28-2021 13:28:28 ACCOUNT CLERK by Bahman Rowland M.D. [id number]
[2021-02-28 04:06] LABS: Reflex Lactate Order REFLEX LACTIC ORDERD
--- NOTE | 2021-02-28 05:06 | W.ED.SOB ---
HPI - SOB/Dyspnea General: Chief Complaint: Shortness of Breath/Dyspnea Stated Complaint: sob, blister to both legs Time Seen by Provider: 02/28/21 01:36 History of Present Illness: HPI Narrative: 70-year-old female with history of pulmonary hypertension, anasarca, and shortness of breath. She was recently admitted here, and then transferred to [place] due to possible pericarditis with effusion. She states no surgery was done, as the pericardial effusion seem to resolve on its own, but they took 20 L of fluid off of me while I was there . She says the fluid keeps coming back despite the use of diuretics. Her legs are quite swollen. Her right leg shows significant redness and has become more painful. This is despite being on both Keflex and doxycycline for lower extremity cellulitis. She has not run a fever. She is more short of breath than normal. She denies significant chest pain. MD elicited complaint: shortness of breath Pertinent past history: other Onset (ago): hour(s) Context: recent illness Timing: constant and progressively worsening Severity: moderate Exacerbating factors: lying flat and exertion Relieving factors: oxygen Known history of: other Associated symptoms: Reports dizziness and rash; Deny abdominal pain, chest congestion, chest pain, cough, diaphoresis, fever(s) or nausea Treatment prior to arrival: none Review of Systems Const: Denies: fever(s) or diaphoresis Card: Denies: chest pain Resp: Denies: chest congestion GI: Denies: abdominal pain or nausea Neuro: Reports: dizziness PFSH ED PFSH: Medical History Adrenal insufficiency Anasarca Benign essential hypertension with target blood pressure below 140/90 Central hypothyroidism CHF (congestive heart failure) Chronic back pain Follows at pain clinic for periodic injections COVID-19 (~09/2020) Edema Facet arthritis, degenerative, lumbar spine History of anaphylaxis History of atrial fibrillation Intermittent, has not required long-term anticoagulation or focused treatment History of COVID-19 HTN (hypertension) Hyperaldosteronism 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 Mother Cancer Lung disease Grandfather Cancer Grandmother Dementia Denies family history of Diabetes CAD (coronary artery disease) Clotting disorder Chronic kidney disease (CKD) Suicide Anesthesia complication Bleeding disorder Stroke Social History Quit status (tobacco): has quit using tobacco Year quit tobacco: 50 years ago Second hand smoke exposure: No Alcohol intake: never Caregiver/support person: Yes Lives independently: Yes Household members: spouse Marital status: service: No Current occupational status: retired Current gender identity: Female Female Reproductive History: Date of last menstrual period: 01/22/21 Physical Exam Const: COMMON NORMALS: alert GENERAL APPEARANCE: cooperative, ill appearing and frail appearing NUTRITIONAL APPEARANCE: obese Eye: COMMON NORMALS: Equal, round and reactive pupils present and EOMs intact bilaterally PUPIL: Yes Equal, round and reactive pupils present Chest: COMMONS NORMALS: normal inspection of the chest Resp: COMMON NORMALS: clear to auscultation bilaterally EFFORT & INSPECTION: Yes tachypneic and Yes labored AUSCULTATION: clear to auscultation bilaterally and diminished lung sounds Cardio: COMMON NORMALS: regular rate and regular rhythm RATE: regular rate RHYTHM: regular rhythm GI: COMMON NORMALS: Normal to inspection, nondistended, normoactive bowel sounds present and Soft to palpation PALPATION: Yes Soft to palpation Extremity: NARRATIVE EXTREMITY EXAM: Examination of the bilateral lower extremities reveals significant edema, pitting. There are changes of stasis dermatitis. On the right, there is beefy cellulitic redness in a circumferential distribution around the ankle and proximal to the ankle. It extends up the anterior leg to mid leg GENERAL: Yes edema (signficant) Neuro: SENSORIUM/ORIENTATION: Yes alert Course Consultations: Consultation #1: reina Vital Signs: Vital signs: Vital Signs Temperature 97.9 F 02/28/21 00:56 Pulse Rate 86 02/28/21 03:56 Respiratory Rate 18 02/28/21 03:56 Blood Pressure 110/73 02/28/21 03:56 Pulse Oximetry 94 02/28/21 03:56 MDM - SOB/Dyspnea MDM Narrative: Medical decision making narrative: 70-year-old female with worsening lower extremity cellulitis despite the use of Keflex and doxycycline as an outpatient. Her white blood cell count is 19, but is chronically elevated. Her hemoglobin is 11. Her creatinine is 1.5. Lactate is 2.7. She has significant lower extremity edema. She has some pulmonary edema on chest x-ray, although it is difficult to tell given poor inspiration. She will be admitted for cellulitis with failure of outpatient treatment, and continued diuresis. Lab Data: Labs: Lab Results 02/28/21 02/28/21 02/28/21 02:00 02:00 02:00 WBC 19.0 10^3/uL H 10 ^3/uL (4.0-10.0) RBC 4.59 10^6/uL 10^6 /uL (4.1-5.3) Hgb 10.8 g/dL L g/dL (11.5-15.3) Hct 36.7 % L % (37.0-47.0) MCV 80.0 fl L fl (81-99) MCH 23.5 pg L pg (28.0-34.0) MCHC 29.4 g/dL L g/dL (30.0-36.0) RDW 16.7 % H % (12.1-15.1) Plt Count 260 10^3/cmm 10^3 /cmm (130-400) MPV 9.9 fL fL (7.4-10.4) Neut % (Auto) 74.2 % % Lymph % (Auto) 12.0 % % [place]ud[place] % (Auto) 7.9 % % Eos % (Auto) 2.4 % % Baso % (Auto) 0.7 % % Neut # (Auto) 14.12 10^3/uL H 1 0^3/uL (1.8-7.7) Lymph # (Auto) 2.3 10^3/uL 10^3/ uL (0.8-4.8) [place]ud[place] # (Auto) 1.5 10^3/uL H 10^ 3/uL (0.2-0.9) Eos # (Auto) 0.5 10^3/uL 10^3/ uL (0.0-0.8) Baso # (Auto) 0.1 10^3/uL 10^3/ uL (0.0-0.1) Nucleated RBC % (a uto) 0 % % Nucleated RBCs # 0.0 /100WBC /100W BC Sodium 137 mmol/L mmol/L (136-145) Potassium 4.0 mmol/L mmol/L (3.5-5.1) Chloride 98 mmol/L mmol/L (98-107) Carbon Dioxide 23 mmol/L mmol/L (22-29) Anion Gap 20.0 H (5-19) BUN 22 mg/dL mg/dL (8-23) Creatinine 1.5 mg/dL H mg/dL (0.5-0.9) GFR Calculation 34.5 mL/min L mL/ min (90-130) Glucose 175 mg/dL H mg/dL (65-115) Calculated Osmolal ity 292 mOsm/kg mOsm/ kg (285-295) Lactic Acid 2.7 mmol/L H mmol /L (0.5-2.2) Calcium 8.8 mg/dL mg/dL (8.5-10.5) Total Bilirubin 0.3 mg/dL mg/dL (0.15-1.2) AST 11 U/L U/L (0-32) ALT 29 U/L U/L (0-33) Alkaline Phosphata se 84 IU/L IU/L (35-105) Troponin T Baselin e C-Reactive Protein 49.1 mg/L H mg/L (0.0-4.9) NT-Pro-B Natriuret Pep 93 pg/mL pg/mL (0-125) Total Protein 5.8 g/dL L g/dL (6.6-8.7) Albumin 3.8 g/dL g/dL (3.5-5.2) Globulin 2.0 g/dL g/dL (1.3-4.6) Procalcitonin 0.06 ng/mL ng/mL (0-0.5) 02/28/21 02:00 WBC RBC Hgb Hct MCV MCH MCHC RDW Plt Count MPV Neut % (Auto) Lymph % (Auto) [place]ud[place] % (Auto) Eos % (Auto) Baso % (Auto) Neut # (Auto) Lymph # (Auto) [place] # (Auto) Eos # (Auto) Baso # (Auto) Nucleated RBC % (a uto) Nucleated RBCs # Sodium Potassium Chloride Carbon Dioxide Anion Gap BUN Creatinine GFR Calculation Glucose Calculated Osmolal ity Lactic Acid Calcium Total Bilirubin AST ALT Alkaline Phosphata se Troponin T Baselin e 17 ng/L H ng/L (0-10) C-Reactive Protein NT-Pro-B Natriuret Pep Total Protein Albumin Globulin Procalcitonin Discharge Plan Discharge Patient Disposition: Admitted As Inpatient Clinical Impression: Bilateral cellulitis of lower leg, Anasarca, Pulmonary hypertension Condition: Stable Coding Level of Care Code ED Independent Living Instructor for Chg Fwd Exam Detailed
[2021-02-28] MEDS: ondansetron 2 mg/ML SDV 2 mL 4 MG IVP (05:36)
[2021-02-28 06:26] LABS: Troponin 5 2HR 18.83 ng/L (0-10); Troponin 5 2HR Delta 1.83 ABS# (0-10)
--- NOTE | 2021-02-28 07:56 | ECG_ITS ---
[facility] Test Date: 2021-02-28 Pat Name: Carolyn Alexander Department: Room: 270 Gender: Female Mixer Dry Food Products: : 1950 Requested By: Zaheer Morgan Order Number: [id number] Laina MD: Bahman Rowland M.D. Measurements Intervals [place] Rate: 67 P: 41 MD: 149 QRS: -11 QRSD: 103 T: 52 QT: 403 QTc: 427 Interpretive Statements SINUS RHYTHM NONSPECIFIC T-WAVE ABNORMALITY Compared to ECG 02/28/2021 06:43:07 T-wave abnormality now present Prolonged QT interval no longer present Electronically Signed On 02-28-2021 13:27:11 MECHANICAL SERVICE TECHNICIAN by Bahman Rowland M.D. [id number]
[2021-02-28] MEDS: enoxaparin 40 mg/0.4 mL Syringe SUBCUT (09:59)
[2021-02-28] MEDS: levothyroxine 175 mcg Tablet PO (10:00)
[2021-02-28] MEDS: bumetanide 0.25 mg/mL SDV 4 mL 1 MG IVP ×2 (10:00→22:03)
[2021-02-28] MEDS: spironolactone 25 mg Tablet PO ×2 (10:00→17:54)
[2021-02-28 10:04] LABS: Troponin 5 6HR 18.16 ng/L (0-10); Troponin 5 6HR Delta 1.16 ng/L (0-12)
--- NOTE | 2021-02-28 11:01 | PM.HP ---
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 Patient was recently transferred to [facility] for anasarca and dyspnea and fluid overload secondary to concerns for constrictive pericarditis, she went to [facility], and had a cardiac CT, and had no significant evidence of constrictive pericarditis, no surgery was required, was told that she did not have any diastolic heart failure, was turned over to the medical service at [place], and was diuresed over 20 L, also developed some cellulitis, and was discharged home.. However she tells me that soon as she got home she started to develop increased swelling, shortness of breath so that is why she is come back to the emergency room. She tells me that she developed some cellulitis in her right lower extremity, which has worsened, area of cellulitis red hot warmth has increased. She also tells me that they thought maybe her Decadron was a source of her swelling so she was switched over to hydrocortisone. In addition she was told she is diabetic, hemoglobin A1c of 6.8. Review of Systems Const: Denies: fever(s), chills, fatigue or malaise Card: Reports: edema; Denies: chest pain Resp: Reports: dyspnea GI: Denies: abdominal pain, nausea, vomiting or hematemesis : Denies: flank pain or dysuria Skin/Breast: Reports: rash Neuro: Denies: headache(s), dizziness or vertigo Endo: Denies: polyuria or polydipsia Medications/Allergies Home Medications Medication Instructions Recorded Confirmed Last Taken Type epinephrine 0.3 mg/0.3 mL 0.3 mg IM Q10M PRN #2 ea 04/20/20 02/11/21 Unknown Rx injection, auto-injector clotrimazole-betamethasone 1 1 applic TOPICAL BID 28 Days #45 g 11/11/20 02/11/21 01/17/21 Rx %-0.05 % topical cream cetirizine 10 mg tablet 10 mg PO QAM tab 01/04/21 02/11/21 02/11/21 History dexamethasone 1 mg tablet 2 mg PO QAM tab 01/04/21 02/11/21 02/11/21 History duloxetine 30 mg capsule,delayed 60 mg PO BEDTIME cap 01/04/21 02/11/21 02/10/21 History release Immune Vitamin C 1 tab PO DAILY 01/19/21 02/11/21 02/11/21 History Ozempic 1 mg SUBCUT Q7D 01/19/21 02/11/21 02/07/21 History levothyroxine 175 mcg PO QAM 01/19/21 02/11/21 02/11/21 History oxybutynin chloride 10 mg PO QAM 01/19/21 02/11/21 02/11/21 History diabetic supplies, miscellan. #1 ea 01/21/21 02/11/21 Unknown Rx flash glucose scanning reader #1 ea 01/21/21 02/11/21 Unknown Rx flash glucose sensor #1 ea 01/21/21 02/11/21 Unknown Rx fluconazole 150 mg PO Q7D 01/26/21 02/11/21 02/07/21 History omeprazole 40 mg PO DAILY 01/26/21 02/11/21 02/11/21 History losartan 50 mg PO QAM #0 tab 01/29/21 02/11/21 02/11/21 Rx miscellaneous medical supply #1 ea 02/05/21 02/11/21 Unknown Rx bumetanide 1 mg tablet 1 mg PO PRN PRN tab 02/08/21 02/11/21 Unknown History furosemide 20 mg tablet See Rx Instructions .ROUTE 02/08/21 02/11/21 02/11/21 History .COMPLEX tab amlodipine 5 mg PO DAILY PRN 02/11/21 02/11/21 Unknown History clonidine HCl 0.1 mg PO BID PRN 02/11/21 02/11/21 Unknown History metoprolol tartrate 25 mg PO BID PRN 02/11/21 02/11/21 Unknown History potassium chloride 10 mEq 80 meq PO TID cap 02/11/21 02/11/21 02/11/21 History capsule,extended release spironolactone 25 mg PO BID 02/11/21 02/11/21 02/11/21 History pramipexole 0.125 mg PO BEDTIME 02/13/21 02/13/21 02/10/21 21:00 History blood sugar diagnostic #50 ea 02/25/21 Unknown Rx blood-glucose meter,continuous #1 ea 02/25/21 Unknown Rx lancets 30 gauge #100 ea 02/25/21 Unknown Rx allopurinol 100 mg tablet 100 mg PO DAILY PRN #30 tab 02/26/21 Unknown Rx Allergies Allergy/AdvReac Type Severity Reaction Status Date / Time acetaminophen [From Tylenol] Allergy ALGY-Hives Verified 02/11/21 12:56 azithromycin Allergy ALGY-Anaphy Verified 02/11/21 12:56 laxis benzocaine Allergy ALGY-Hives Verified 02/11/21 12:56 butamben [From Cetacaine] Allergy ALGY-Swell Verified 02/11/21 12:56 Lip/Tongue/Throat codeine Allergy ALGY-Hives Verified 02/11/21 12:56 fentanyl Allergy ALGY-Anaphy Verified 02/11/21 12:56 laxis hydrocodone [From Vicodin] Allergy ALGY-Hives Verified 02/11/21 12:56 hydromorphone [From Dilaudid] Allergy ADR-Vomitin Verified 02/11/21 12:56 g Iodinated Contrast Media Allergy ALGY-Anaphy Verified 02/11/21 12:56 laxis liothyronine Allergy ADR-Nausea Verified 02/11/21 12:56 meperidine [From Demerol] Allergy Unknown Verified 02/11/21 12:56 morphine Allergy ALGY-Anaphy Verified 02/11/21 12:56 laxis nitrofurantoin Allergy ALGY-Joint Verified 02/11/21 12:56 [From Macrobid] Pain oxycodone [From Percocet] Allergy ALGY-Hives Verified 02/11/21 12:56 penicillin V Allergy ALGY-Hives Verified 02/11/21 12:56 Penicillins Allergy Unknown Verified 02/11/21 12:56 Phenothiazines Allergy ALGY-Anaphy Verified 02/11/21 12:56 laxis pregabalin [From Lyrica] Allergy ADV-Weaknes Verified 02/11/21 12:56 s procaine Allergy ALGY-Hives Verified 02/11/21 12:56 prochlorperazine Allergy ALGY-Anaphy Verified 02/11/21 12:56 [From Compazine] laxis Sulfa (Sulfonamide Allergy Unknown Verified 02/11/21 12:56 Antibiotics) tetracaine [From Cetacaine] Allergy ALGY-Swell Verified 02/11/21 12:56 Lip/Tongue/Throat PFSH Acute PFSH: Medical History Adrenal insufficiency Anasarca Benign essential hypertension with target blood pressure below 140/90 Central hypothyroidism CHF (congestive heart failure) Chronic back pain Follows at pain clinic for periodic injections COVID-19 (~09/2020) Edema Facet arthritis, degenerative, lumbar spine History of anaphylaxis History of atrial fibrillation Intermittent, has not required long-term anticoagulation or focused treatment History of COVID-19 HTN (hypertension) Hyperaldosteronism 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 Mother Cancer Lung disease Grandfather Cancer Grandmother Dementia Denies family history of Diabetes CAD (coronary artery disease) Clotting disorder Chronic kidney disease (CKD) Suicide Anesthesia complication Bleeding disorder Stroke Social History Quit status (tobacco): has quit using tobacco Year quit tobacco: 50 years ago Second hand smoke exposure: No Alcohol intake: never Caregiver/support person: Yes Lives independently: Yes Household members: spouse Marital status: service: No Current occupational status: retired Current gender identity: Female Female Reproductive History: Date of last menstrual period: 01/22/21 Vitals/I&O/Wt Last Vital Signs Temp 68.4 F L 02/28/21 09:28 Pulse 89 02/28/21 09:28 Resp 15 12/05/21 09:28 BP 113/72 02/28/21 09:28 Pulse Ox 92 02/28/21 09:28 02/27/21 02/28/21 02/28/21 22:59 06:59 14:59 Intake Total 250 / 250 240 / 240 Balance 250 / 250 240 / 240 Weight last 48 hrs Weight 159.891 kg Weight 159.665 kg Physical Exam Const: COMMON NORMALS: no acute distress and patient oriented x3 GENERAL APPEARANCE: cooperative and comfortable HENMT: COMMON NORMALS: normocephalic HEAD & SCALP: normocephalic Eye: COMMON NORMALS: Equal, round and reactive pupils present and EOMs intact bilaterally GENERAL EYE: appearance normal, both eyes and all related structures PUPIL: Yes Equal, round and reactive pupils present Neck/C-Spine: COMMON NORMALS: full ROM and no lymphadenopathy THYROID: Thyroid normal Lymph: LYMPHATIC: no lymphadenopathy noted Resp: COMMON NORMALS: normal respiratory effort, No retractions, No use of accessory muscles and clear to auscultation bilaterally AUSCULTATION: clear to auscultation bilaterally Cardio: COMMON NORMALS: regular rate, regular rhythm, S1 normal heart sound present, S2 normal heart sound present, No gallops present (Cardio), No clicks present (Cardio) and No murmurs present (Cardio) RATE: regular rate RHYTHM: regular rhythm HEART SOUNDS: S1 normal heart sound present and S2 normal heart sound present GI: COMMON NORMALS: Normal to inspection, nondistended, normoactive bowel sounds present, Soft to palpation, non-tender and No hepatosplenomegaly present PALPATION: Yes Soft to palpation and Yes No hepatosplenomegaly present Extremity: NARRATIVE EXTREMITY EXAM: Right lower extremity, 2+ pitting edema, area of redness, warmth, edema, swelling, extending from mid martines down to ankle Left lower extremity, 2+ pitting edema, area of redness, warmth, swelling, nutrition, patchy area, measuring 3 cm long and 1 cm wide Neuro: COMMON NORMALS: patient oriented x3, CN's II-XII intact bilaterally, moves all extremities and no focal motor deficits Psych: COMMON NORMALS: mental status grossly normal, Normal thought process present and cooperative THOUGHT PROCESS: Normal thought process present Data : 02/28/21 02:00 02/28/21 02:00 Micro: Microbiology 02/28/21 02:15 Blood Culture - Preliminary Blood SPECIMEN COLLECTED 02/28/21 02:00 Blood Culture - Preliminary Blood SPECIMEN COLLECTED A&P Assessment and plan (1) Bilateral cellulitis of lower leg: -Cellulitis of bilateral lower extremities, will order vancomycin, cefepime -Blood cultures -We will do venous ultrasound to evaluate for DVT Status: Acute (2) Anasarca: -Etiology uncertain -Response to diuresis, diuresed over 20 L during her last hospitalization on [place], did develop elevated kidney function, diuresis was de-escalate it, discharged on torsemide, that has not been helping as outpatient. Continues to have 2+ pitting edema bilaterally, shortness of breath complaints -Start Bumex 1 mg every 12 hours, fluid restrictions 1200 cc Status: Acute (3) Obstructive sleep apnea: Start home CPAP Status: Acute (4) Chronic kidney disease, stage 3a: Monitor creatinine Status: Acute (5) Type 2 diabetes mellitus with other diabetic kidney complication: Low-dose sliding scale Status: Acute (6) Hyperaldosteronism: Currently on a tapering dose of hydrocortisone through [facility] Status: Acute Attestations Medical Necessity Statement*: Patient requires hospitalization, inpatient, greater than 2 midnights, for bilateral lower extremity cellulitis, anasarca, fluid overload, Coding Level of Care Code Acute [employer] Principal Solution Specialist for [facility] Fwd Diagnoses Bilateral cellulitis of lower leg L03.116; L03.115 Anasarca R60.1 Obstructive sleep apnea G47.33 Chronic kidney disease, stage 3a N18.31 Type 2 diabetes mellitus with other diabetic kidney complication E11.29 Hyperaldosteronism E26.9
--- NOTE | 2021-02-28 11:10 | USR_ITS ---
PROCEDURE INFORMATION: Exam: US Duplex Lower Extremity Veins, Bilateral Exam date and time: 02/28/2021 11:10 AM Age: 70 years old Clinical indication: Edema, localized; Lower extremity, bilateral; Additional info: Dvt TECHNIQUE: Imaging protocol: Real-time duplex ultrasound of the extremities with 2-D montano scale, color Doppler flow and spectral waveform analysis with image documentation. Complete exam focused on the bilateral lower extremity veins. COMPARISON: US renal BI* [id number] 01/27/2021 9:45 AM FINDINGS: Right deep veins: Unremarkable. The common femoral, femoral, proximal profunda femoral and popliteal veins are patent without thrombus. Normal Doppler waveforms. Normal compressibility and/or augmentation response. Right superficial veins: Saphenofemoral junction is patent without thrombus. Left deep veins: Unremarkable. The common femoral, femoral, proximal profunda femoral and popliteal veins are patent without thrombus. Normal Doppler waveforms. Normal compressibility and/or augmentation response. Left superficial veins: Saphenofemoral junction is patent without thrombus. Soft tissues: Unremarkable. US/[place] [id number] IMPRESSION: No evidence of deep vein thrombosis. Radiation Dose CTDIVOL = (mGy): DLP = (mGy-cm)
[2021-02-28] MEDS: hydrocortisone 10 mg Tablet 30 MG PO (11:24)
[2021-02-28 11:48] LABS: Glucose Point of Care 103 mg/dL (70-110)
[2021-02-28] MEDS: vancomycin 1,500 MG/300 ML PIGGYBACK 200 MG IV (12:08)
--- NOTE | 2021-02-28 17:27 | ECG_ITS ---
[facility] Test Date: 2021-02-28 Pat Name: Carolyn Alexander Department: Room: 270 Gender: Female Certified Lactation Educator: : 1950 Requested By: Zaheer Morgan Order Number: [id number] Laina MD: Bahman Rowland M.D. Measurements Intervals [place] Rate: 73 P: 59 NV: 145 QRS: -15 QRSD: 109 T: 66 QT: 409 QTc: 453 Interpretive Statements SINUS RHYTHM MINIMAL ST DEPRESSION [0.025+ mV ST DEPRESSION] Compared to ECG 02/28/2021 02:05:24 ST (T wave) deviation now present Electronically Signed On 03-01-2021 17:11:33 PAPER LATCHER by Bahman Rowland M.D. [id number]
[2021-02-28 17:28] LABS: Glucose Point of Care 181 mg/dL (70-110)
[2021-02-28] MEDS: insulin lispro 100 unit/1 mL SUBCUT (17:51)
[2021-02-28] MEDS: famotidine 20 mg Tablet PO (17:54)
[2021-02-28 20:33] LABS: Glucose Point of Care 210 mg/dL (70-110)
[2021-02-28] MEDS: duloxetine 30 mg Capsule 60 MG PO (21:33)
[2021-02-28] MEDS: pramipexole 0.25 mg Tablet 0.125 MG PO (21:33)
[2021-03-01] VITALS (15 sets, daily range): BP systolic 126–171; BP diastolic 70–88; PULSE 77–120; RESP 16–22; TEMP 36.5–37; O2SAT 91–98
--- NOTE | 2021-03-01 02:06 | XRR_ITS ---
PROCEDURE INFORMATION: Exam: XR Chest Exam date and time: 03/01/2021 2:06 AM Age: 70 years old Clinical indication: Dyspnea; Additional info: Decreased air movement to left lung throughout TECHNIQUE: Imaging protocol: XR of the chest. Views: 1 view. Total images: 1 COMPARISON: CR (CHEST, ) 02/28/2021 2:19 AM FINDINGS: Tubes, catheters and devices: Intraspinal nerve stimulator electrodes noted. Lungs: Streaky bibasilar opacities favor atelectasis. Pleural spaces: Unremarkable. No pleural effusion. No pneumothorax. Heart/Mediastinum: Mild cardiomegaly stable. Bones/joints: Osseous structures are unchanged from the prior exam. XR/XR chest 1V portable [id number] IMPRESSION: 1. Mild cardiomegaly stable. 2. Streaky bibasilar opacities favor atelectasis. Radiation Dose CTDIVOL = (mGy): DLP = (mGy-cm)
[2021-03-01] MEDS: ipratropium-albuterol 3 mL Neb INHALATION ×4 (02:32→20:28)
[2021-03-01 03:10] LABS: Basophils # 0.2 10^3/uL (0.0-0.1); Eosinophils # 0.5 10^3/uL (0.0-0.8); Eosinophils % 3.3 %; Hematocrit 37.2 % (37.0-47.0); Hemoglobin 10.7 g/dL (11.5-15.3); Lymphocytes # 2.9 10^3/uL (0.8-4.8); Lymphocytes % 20.1 %; Mean Corpuscular HGB Conc 28.8 g/dL (30.0-36.0); Mean Corpuscular Hemoglobin 23.3 pg (28.0-34.0); Mean Corpuscular Volume 80.9 fl (81-99); Mean Platelet Volume 9.7 fL (7.4-10.4); Monocytes # 1.4 10^3/uL (0.2-0.9); Monocytes % 9.6 %; Neutrophils # 9.23 10^3/uL (1.8-7.7); Neutrophils % 63.4 %; Nucleated Red Blood Cells % 0 %; Platelet Count 234 10^3/cmm (130-400); Red Cell Distribution Width 16.8 % (12.1-15.1); White Blood Count 14.6 10^3/uL (4.0-10.0)
[2021-03-01 03:30] LABS: Alanine Aminotransferase 29 U/L (0-33); Albumin Level 3.4 g/dL (3.5-5.2); Alkaline Phosphatase 81 IU/L (35-105); Anion Gap 19.5 (5-19); Aspartate Amino Transferase 13 U/L (0-32); Blood Urea Nitrogen 16 mg/dL (8-23); Carbon Dioxide 23 mmol/L (22-29); Chloride 98 mmol/L (98-107); Globulin 2.7 g/dL (1.3-4.6); Glomerular Filtration Rate 40.7 mL/min (90-130); Glucose 123 mg/dL (65-115); Magnesium 1.9 mg/dL (1.7-2.3); Osmolality Calculated 287 mOsm/kg (285-295); Phosphorus 2.8 mg/dL (2.5-4.5); Potassium 3.5 mmol/L (3.5-5.1); Sodium 137 mmol/L (136-145); Total Bilirubin 0.3 mg/dL (0.15-1.2); Total Protein 6.1 g/dL (6.6-8.7)
--- NOTE | 2021-03-01 03:51 | PC.NURSE ---
CHANGE IN CONDITION: AT APPROXIMATELY 0140 THIS NURSE WENT IN TO THE PATIENT ROOM TO ROUND. THE PATIENT EXHIBITED SIGNS OF SHORTNESS OF BREATH, INCREASED EDEMA TO CHEST, UPPER EXTREMITIES, AND DIFFICULTY BREATHING. THE PATIENT STATED SHE FELT LIKE SHE COULD NOT TAKE A FULL BREATH. UPON ASSESSING LUNG SOUNDS, IT WAS NOTED THE PATIENT HAD INCREASED EXPIRATORY WHEEZING AND WAS NOT MOVING AIR WELL THROUGHOUT THE LEFT LUNG COMPARED TO INITIAL BEGINNING OF THE SHIFT ASSESSMENT. THE PATIENT HAD BEEN MAINTAINING AN OXYGEN LEVEL OF 96% ON ROOM AIR. AT THIS TIME IT WAS FLUCTUATING BETWEEN 93-94%. THE HOSPITALIST WAS CONTACTED AT THIS TIME AND INFORMED OF THESE CHANGES. TELEPHONE ORDERS FOR A STAT CHEST X-RAY AND STARTING SCHEDULED DUONEB INHALATION EVERY 6 HOURS. THE PATIENT WAS UPDATED TO THESE ORDERS.
[2021-03-01] MEDS: oxybutynin chloride XL 5 MG TABLET 10 MG PO (05:59)
[2021-03-01] MEDS: levothyroxine 175 mcg Tablet PO (05:59)
[2021-03-01] MEDS: vancomycin 1,500 MG/300 ML PIGGYBACK 200 MG IV ×2 (05:59→23:58)
[2021-03-01] MEDS: gabapentin 300 mg Capsule PO ×2 (05:59→17:10)
[2021-03-01 06:42] LABS: Glucose Point of Care 114 mg/dL (70-110)
[2021-03-01] MEDS: famotidine 20 mg Tablet PO ×2 (08:43→17:10)
[2021-03-01] MEDS: pantoprazole DR 40 mg Tablet PO (08:43)
[2021-03-01] MEDS: hydrocortisone 10 mg Tablet 30 MG PO (08:43)
[2021-03-01] MEDS: spironolactone 25 mg Tablet PO ×2 (08:43→17:10)
[2021-03-01] MEDS: bumetanide 0.25 mg/mL SDV 4 mL 1 MG IVP ×2 (09:51→21:14)
[2021-03-01] MEDS: enoxaparin 40 mg/0.4 mL Syringe SUBCUT (09:51)
--- NOTE | 2021-03-01 10:03 | PC.CHAP ---
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 room service waiter visit [] Patient/Family/Request visit [] Outpatient visit [] Follow-up visit [] Physician referral [] Code/Alert [x] Routine visit [] Staff referral [] Actively dying [] Patient sleeping [] Family support [] [] Out of room [] Palliative care [] [] Receiving care in room [] Pre-surgical visit [] Trauma [] Long length of stay [] ICU visit [] Other: Relational/Emotional Strength [x] Patient feels connected with others/family/visitors/staff [] Distress [] Loneliness/isolation [] Abandonment Spirituality of Patient [x] Person of Minoo x[] Attends Episcopalian of their [place] [x] Believes in Prayer [x] Reads Bible or Buddhist materials [] There are Spiritual issues to be addressed Incident Analyst Interventions [x] Prayer [x] Active listening [x] Non-anxious presence [x] Spiritual/emotional support [] Crisis/trauma care [x] Spiritual counseling [] Bereavement support [] Provided bereavement packet [] Provided Bible/devotional materials [] Provided toy/stuffed animal, coloring book to patient or family member [] Provided Communion [] Anointing/[place] [] Salvation [x] Completed spiritual assessment [] Other: Impact on Illness or Injury [] Angry [] Fearful [] Anxious [] Often cries [] Exhaustion [] Unable to work [] Unable to attend taoism [] Unable to walk/stand [] Unable to read [] Unable to drive [] Unable to eat/drink [] Unable to sleep [] Unable to be with family [] Patient intubated [] Other: Summary Time spent with patient 15 min
[2021-03-01 11:09] LABS: Glucose Point of Care 167 mg/dL (70-110)
[2021-03-01] MEDS: insulin lispro 100 unit/1 mL SUBCUT ×2 (11:35→17:51)
--- NOTE | 2021-03-01 11:53 | PC.NURSE ---
Notified Dr. Ramos of blood pressure 145/73.
[2021-03-01] MEDS: artificial tears Op Soln 15 mL Btl 1 DROP EYE-BOTH (14:11)
[2021-03-01] MEDS: ondansetron 2 mg/ML SDV 2 mL 4 MG IVP (14:12)
[2021-03-01 17:47] LABS: Glucose Point of Care 203 mg/dL (70-110)
[2021-03-01] MEDS: polyethylene glycol 3350 Pkt 17 gm PO (17:51)
[2021-03-01] MEDS: piperacillin-tazobactam 3.375 GM in sodium chloride 0.9% (plus) 50 ML IV (17:51)
[2021-03-01] MEDS: duloxetine 30 mg Capsule 60 MG PO (20:58)
[2021-03-01] MEDS: pramipexole 0.25 mg Tablet 0.125 MG PO (20:59)
[2021-03-01 21:04] LABS: Glucose Point of Care 124 mg/dL (70-110)
--- NOTE | 2021-03-01 22:29 | P.PN_ITS ---
Subjective Subjective: Interval history: Patient was seen and examined this morning she is complaining of weight gain pretty fast as well as worseing b/l l/e swelling as well as sob.Her other vitals and labs have been reviewed. Medications: Reviewed: Yes Vitals/I&O/Wt Last Vital Signs Temp 98.6 F 03/01/21 20:00 Pulse 101 H 03/01/21 20:33 Resp 16 03/01/21 20:28 BP 150/82 03/01/21 20:00 Pulse Ox 92 03/01/21 20:28 03/01/21 03/01/21 03/01/21 06:59 14:59 22:59 Intake Total 100 / 1080 1840 / 1840 290 / 2130 Output Total 650 / 650 1650 / 1650 Balance -550 / 430 190 / 190 290 / 480 Weight last 48 hrs Weight 159.891 kg Weight 159.665 kg Physical Exam Const: COMMON NORMALS: patient oriented x3 HENMT: COMMON NORMALS: normocephalic and atraumatic HEAD & SCALP: normocephalic and atraumatic Resp: COMMON NORMALS: normal respiratory effort, No retractions, No use of accessory muscles and clear to auscultation bilaterally EFFORT & INSPECTION: Yes symmetric chest movement AUSCULTATION: clear to auscultation bilaterally Cardio: COMMON NORMALS: regular rate, regular rhythm, S1 normal heart sound present, S2 normal heart sound present, No gallops present (Cardio), No murmurs present (Cardio), No rub (Cardio) and Peripheral pulses 2+ throughout RATE: regular rate RHYTHM: regular rhythm HEART SOUNDS: S1 normal heart sound present and S2 normal heart sound present PERIPHERAL PULSES: Peripheral pulses 2+ throughout GI: COMMON NORMALS: Normal to inspection, nondistended, normoactive bowel sounds present, Soft to palpation, non-tender, No hepatosplenomegaly present and no masses AUSCULTATION: Yes normoactive bowel sounds PALPATION: Yes Soft to palpation and Yes No hepatosplenomegaly present RECTAL EXAM: deferred Extremity: NARRATIVE EXTREMITY EXAM: B/L L/E 2+ Edema present as well as b/l l/e redness present. Neuro: COMMON NORMALS: patient oriented x3 Data : 03/01/21 02:44 03/01/21 02:44 Micro: Microbiology 02/28/21 02:15 Blood Culture - Preliminary Blood NEGATIVE TO DATE 02/28/21 02:00 Blood Culture - Preliminary Blood NEGATIVE TO DATE A&P Assessment and plan (1) Bilateral cellulitis of lower leg: -B/L L/E Cellulitis :She was discharged on kflex as well as doxycycline from [facility]. -Follow Blood cultures -B/L L/E Doppler vein : Negative for DVT -Currently on vanc and Zosyn Status: Acute (2) Anasarca: -Unclear Etiology: Recently she was sent to [facility] from here as per cardiology for constrictive pericarditis for possible pericardiectomy.Which was needed necessary there, possible due to questionable constrictive pericarditis diagnosis. She was continued on diuretic and was diuresed over 20 L during her last hospitalization at [facility], with the devlopment of [employer]. she was discharged on torsemide. -On Bumex 1 mg every 12 hours, -fluid restrictions 1200 cc. Status: Acute (3) Obstructive sleep apnea: Start home CPAP Status: Acute (4) Chronic kidney disease, stage 3a: Monitor creatinine Status: Acute (5) Type 2 diabetes mellitus with other diabetic kidney complication: Low-dose sliding scale Status: Acute (6) Hyperaldosteronism: Currently on a tapering dose of hydrocortisone through [facility] Status: Acute Attestations Medical Necessity Statement*: Patient needs to be in hospital for the management of anasarca of unclear etiology, need for I.V diuresis. Coding Level of Care Code Acute Tube Winder Hand for [facility] Diagnoses Bilateral cellulitis of lower leg L03.116; L03.115 Anasarca R60.1 Obstructive sleep apnea G47.33 Chronic kidney disease, stage 3a N18.31 Type 2 diabetes mellitus with other diabetic kidney complication E11.29 Hyperaldosteronism E26.9
[2021-03-01 23:22] LABS: Vancomycin Trough 17.1 ug/mL (10-15)
[2021-03-02] VITALS (14 sets, daily range): BP systolic 117–146; BP diastolic 68–82; PULSE 86–108; RESP 16–18; TEMP 36.5–37.1; O2SAT 91–99
[2021-03-02] MEDS: ipratropium-albuterol 3 mL Neb INHALATION ×4 (02:24→20:13)
[2021-03-02] MEDS: piperacillin-tazobactam 3.375 GM in sodium chloride 0.9% (plus) 50 ML IV ×3 (04:40→21:46)
[2021-03-02 05:37] LABS: Basophils # 0.2 10^3/uL (0.0-0.1); Basophils % 1.1 %; Eosinophils # 0.5 10^3/uL (0.0-0.8); Eosinophils % 3.4 %; Hematocrit 36.9 % (37.0-47.0); Lymphocytes # 2.7 10^3/uL (0.8-4.8); Mean Corpuscular HGB Conc 27.1 g/dL (30.0-36.0); Mean Corpuscular Hemoglobin 23.2 pg (28.0-34.0); Mean Corpuscular Volume 85.6 fl (81-99); Mean Platelet Volume 10.2 fL (7.4-10.4); Monocytes # 1.5 10^3/uL (0.2-0.9); Monocytes % 11.6 %; Neutrophils # 8.22 10^3/uL (1.8-7.7); Neutrophils % 62.2 %; Nucleated Red Blood Cells % 0 %; Platelet Count 215 10^3/cmm (130-400); Red Blood Count 4.31 10^6/uL (4.1-5.3); Red Cell Distribution Width 16.8 % (12.1-15.1); White Blood Count 13.2 10^3/uL (4.0-10.0)
[2021-03-02 05:56] LABS: Alanine Aminotransferase 24 U/L (0-33); Albumin Level 3.4 g/dL (3.5-5.2); Alkaline Phosphatase 72 IU/L (35-105); Aspartate Amino Transferase 11 U/L (0-32); Blood Urea Nitrogen 13 mg/dL (8-23); Calcium 8.8 mg/dL (8.5-10.5); Carbon Dioxide 23 mmol/L (22-29); Chloride 98 mmol/L (98-107); Globulin 2.3 g/dL (1.3-4.6); Glomerular Filtration Rate 44.7 mL/min (90-130); Glucose 114 mg/dL (65-115); Magnesium 1.7 mg/dL (1.7-2.3); Osmolality Calculated 285 mOsm/kg (285-295); Phosphorus 3.1 mg/dL (2.5-4.5); Sodium 137 mmol/L (136-145); Total Bilirubin 0.5 mg/dL (0.15-1.2); Total Protein 5.7 g/dL (6.6-8.7)
[2021-03-02] MEDS: oxybutynin chloride XL 5 MG TABLET 10 MG PO (06:34)
[2021-03-02] MEDS: levothyroxine 175 mcg Tablet PO (06:34)
--- NOTE | 2021-03-02 08:53 | XR_ITS ---
WS: [id number] Exam: XR shoulder LT min 2V* [id number] Date/Time of Exam: 03/02/2021 8:54 AM Reason For Exam: pain Comparison 11/06/2011. No fracture or dislocation. Mild DJD of the glenohumeral joint and the AC joint. Normal soft tissues. XR/XR shoulder LT min 2V* [id number] IMPRESSION: 1. Mild degenerative changes. No fracture or dislocation.
[2021-03-02] MEDS: gabapentin 300 mg Capsule PO ×2 (09:05→17:48)
[2021-03-02] MEDS: potassium chloride ER 20 mEq Tablet 40 MEQ PO ×2 (09:05→21:47)
[2021-03-02] MEDS: spironolactone 25 mg Tablet PO ×2 (09:05→17:48)
[2021-03-02] MEDS: pantoprazole DR 40 mg Tablet PO (09:05)
[2021-03-02] MEDS: famotidine 20 mg Tablet PO ×2 (09:06→17:48)
[2021-03-02] MEDS: enoxaparin 40 mg/0.4 mL Syringe SUBCUT (09:20)
[2021-03-02] MEDS: hydrocortisone 10 mg Tablet 27.5 MG PO (09:21)
[2021-03-02] MEDS: FUROsemide 10 mg/mL SDV 10mL 80 MG IVP ×2 (09:22→21:43)
--- NOTE | 2021-03-02 11:03 | PM.PN ---
Subjective Subjective: Interval history: Carolyn believes her right leg might be a little bit better. She still has quite a bit of swelling. She reports she is short of breath with any exertion. She does not think she is urinating as much, and the urine appears darker. Medications: Reviewed: Yes Vitals/I&O/Wt Last Vital Signs Temp 98.1 F 03/02/21 11:02 Pulse 102 H 03/02/21 11:02 Resp 18 03/02/21 11:02 BP 117/82 03/02/21 11:02 Pulse Ox 91 03/02/21 11:02 03/01/21 03/02/21 03/02/21 22:59 06:59 14:59 Intake Total 290 / 2130 300 / 2430 240 / 240 Output Total 600 / 2250 Balance 290 / 480 -300 / 180 240 / 240 Physical Exam Narrative: EXAM NARRATIVE: General exam mild dyspnea noted with talking. Can complete 5-6 word sentences. Neck is supple Cardiovascular regular rate and rhythm, heart sounds distant Lungs clear but with diminished breath sounds at the bases Abdomen is soft, obese. Nontender Extremities 2+ edema bilaterally. Right greater than left. Erythema noted right lower extremity with some bubbling of the skin consistent with cellulitis. Data : 03/02/21 05:11 03/02/21 05:11 Other data: Blood cultures negative to date Venous duplex negative for DVT A&P Assessment and plan (1) Bilateral cellulitis of lower leg: Cellulitis his right lower extremity only. Continue Zosyn and vancomycin. I think this is likely improving. Elevate leg is much as possible. Venous duplex negative. Status: Acute (2) CHF (congestive heart failure): I think she has significant lower extremity edema. This is multifactorial. Some of this is likely contributed by diastolic heart failure, sleep apnea, morbid obesity. Discussed with her it is unlikely we will get rid of all of her edema. Continue fluid restriction Discontinue Bumex, switch to Lasix 80 mg IV every 12 hours Supplement potassium Repeat magnesium tomorrow Recent concern about constrictive pericarditis. Apparently this was disproven at [place] at recent hospitalization. Will order records. 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
[2021-03-02 11:48] LABS: Glucose Point of Care 195 mg/dL (70-110)
[2021-03-02] MEDS: insulin lispro 100 unit/1 mL SUBCUT ×2 (12:13→17:48)
[2021-03-02 16:22] LABS: Bilirubin Urine Neg (Negative); Blood Urine Trace (Negative); Glucose Urine UA Norm (Normal); Ketones Urine Negative (Negative); Leukocyte Esterase Urine Negative (Negative); Nitrate Urine Negative (Negative); Protein Urine Neg (Negative); Specific Gravity, Urine 1.005 (1.005-1.030); Urine Appearance Clear (CLEAR); Urine Color Yellow (Yellow); Urobilinogen Urine Norm (Negative); pH Urine 7 (5-7)
[2021-03-02 16:23] LABS: Add Urine Culture? No; Bacteria Urine TRACE /hpf; RBC Urine 0-4 /hpf (0-2); Squamous Epithelial Cell Urine 0-4 /hpf (0-5)
[2021-03-02] MEDS: polyethylene glycol 3350 Pkt 17 gm PO (17:48)
[2021-03-02] MEDS: vancomycin 1,500 MG/300 ML PIGGYBACK 200 MG IV (17:49)
--- NOTE | 2021-03-02 20:24 | PC.NURSE ---
i reported high hr 103 to nurse
[2021-03-02] MEDS: hydrocortisone 10 mg Tablet 15 MG PO (21:47)
[2021-03-02] MEDS: pramipexole 0.25 mg Tablet 0.125 MG PO (21:47)
[2021-03-02] MEDS: duloxetine 30 mg Capsule 60 MG PO (21:47)
[2021-03-03] VITALS (16 sets, daily range): BP systolic 109–140; BP diastolic 65–82; PULSE 91–109; RESP 17–20; TEMP 36.4–36.8; O2SAT 92–98
--- NOTE | 2021-03-03 00:06 | PC.NURSE ---
i reported high pulse 109 to nurse
[2021-03-03] MEDS: ipratropium-albuterol 3 mL Neb INHALATION ×4 (02:05→20:42)
[2021-03-03] MEDS: piperacillin-tazobactam 3.375 GM in sodium chloride 0.9% (plus) 50 ML IV ×3 (05:54→22:23)
[2021-03-03] MEDS: oxybutynin chloride XL 5 MG TABLET 10 MG PO (05:55)
[2021-03-03] MEDS: levothyroxine 175 mcg Tablet PO (05:55)
[2021-03-03] MEDS: lanolin oint 7 gm 1 APPLIC TOPICAL (06:02)
[2021-03-03 06:18] LABS: Basophils # 0.1 10^3/uL (0.0-0.1); Basophils % 0.9 %; Eosinophils # 0.4 10^3/uL (0.0-0.8); Eosinophils % 2.9 %; Hematocrit 34.7 % (37.0-47.0); Hemoglobin 10.1 g/dL (11.5-15.3); Lymphocytes # 1.9 10^3/uL (0.8-4.8); Lymphocytes % 14.2 %; Mean Corpuscular HGB Conc 29.1 g/dL (30.0-36.0); Mean Corpuscular Hemoglobin 23.1 pg (28.0-34.0); Mean Corpuscular Volume 79.4 fl (81-99); Mean Platelet Volume 9.8 fL (7.4-10.4); Monocytes # 1.4 10^3/uL (0.2-0.9); Monocytes % 10.4 %; Neutrophils # 9.46 10^3/uL (1.8-7.7); Neutrophils % 69.3 %; Nucleated Red Blood Cells % 0.1 %; Platelet Count 252 10^3/cmm (130-400); Red Blood Count 4.37 10^6/uL (4.1-5.3); Red Cell Distribution Width 16.5 % (12.1-15.1); White Blood Count 13.7 10^3/uL (4.0-10.0)
[2021-03-03 06:29] LABS: Alanine Aminotransferase 22 U/L (0-33); Albumin Level 3.6 g/dL (3.5-5.2); Alkaline Phosphatase 83 IU/L (35-105); Anion Gap 20.2 (5-19); Aspartate Amino Transferase 12 U/L (0-32); Blood Urea Nitrogen 11 mg/dL (8-23); Calcium 8.5 mg/dL (8.5-10.5); Carbon Dioxide 23 mmol/L (22-29); Chloride 98 mmol/L (98-107); Globulin 2.3 g/dL (1.3-4.6); Glomerular Filtration Rate 40.7 mL/min (90-130); Glucose 126 mg/dL (65-115); Magnesium 1.7 mg/dL (1.7-2.3); Osmolality Calculated 287 mOsm/kg (285-295); Potassium 3.2 mmol/L (3.5-5.1); Sodium 138 mmol/L (136-145); Total Bilirubin 0.5 mg/dL (0.15-1.2); Total Protein 5.9 g/dL (6.6-8.7)
[2021-03-03 07:18] LABS: Glucose Point of Care 118 mg/dL (70-110)
[2021-03-03 07:18] LABS: Glucose Point of Care 185 mg/dL (70-110)
[2021-03-03 07:18] LABS: Glucose Point of Care 153 mg/dL (70-110)
[2021-03-03] MEDS: polyethylene glycol 3350 Pkt 17 gm PO (08:26)
[2021-03-03] MEDS: pantoprazole DR 40 mg Tablet PO ×2 (08:27→17:34)
[2021-03-03] MEDS: gabapentin 300 mg Capsule PO ×2 (08:27→17:35)
[2021-03-03] MEDS: spironolactone 25 mg Tablet PO (08:27)
[2021-03-03] MEDS: FUROsemide 10 mg/mL SDV 10mL 80 MG IVP ×2 (08:27→20:53)
[2021-03-03] MEDS: famotidine 20 mg Tablet PO (08:27)
--- NOTE | 2021-03-03 08:36 | PC.NURSE ---
rcvd verbal order from Dr Diop to add lidocain to patient's K-rider.
[2021-03-03] MEDS: potassium chloride ER 20 mEq Tablet 40 MEQ PO (09:01)
[2021-03-03] MEDS: lidocaine 1% 5 ML in potassium chloride premix 100 ML 25 ML IV (09:02)
--- NOTE | 2021-03-03 09:23 | PM.PN ---
Subjective Subjective: Interval history: Carolyn believes her leg is little bit better. Does not hurt as much. A little short of breath this morning. Not satisfied with how she is diuresing. Medications: Reviewed: Yes Vitals/I&O/Wt Last Vital Signs Temp 97.7 F 03/03/21 07:15 Pulse 99 03/03/21 07:15 Resp 18 03/03/21 07:15 BP 112/76 03/03/21 07:15 Pulse Ox 94 03/03/21 07:15 03/02/21 03/03/21 03/03/21 22:59 06:59 14:59 Intake Total 1810 / 2220 400 / 2620 510 / 510 Output Total 1300 / 1300 100 / 100 Balance 510 / 920 400 / 1320 410 / 410 Physical Exam Narrative: EXAM NARRATIVE: General exam mild dyspnea noted with talking. Unchanged from yesterday. Can complete 5-6 word sentences. Neck is supple Cardiovascular regular rate and rhythm, heart sounds distant Lungs clear but with diminished breath sounds at the bases Abdomen is soft, obese. Nontender Extremities 2+ edema bilaterally. Right greater than left. Erythema noted right lower extremity with some bubbling of the skin consistent with cellulitis. Perhaps slightly better than yesterday. Data : 03/03/21 05:04 03/03/21 05:04 A&P Assessment and plan (1) Bilateral cellulitis of lower leg: Cellulitis his right lower extremity only. Continue Zosyn and vancomycin. I think this is likely improving. Elevate leg is much as possible. Venous duplex negative. White blood cell decreased since admission but still slightly high. Status: Acute (2) CHF (congestive heart failure): I think she has significant lower extremity edema. This is multifactorial. Some of this is likely contributed by diastolic heart failure, sleep apnea, morbid obesity. Discussed with her it is unlikely we will get rid of all of her edema. Continue fluid restriction Continue Lasix 80 mg IV every 12 hours Supplement potassium Zaroxolyn 5 mg p.o. x1 Recent concern about constrictive pericarditis. Apparently this was disproven at [place] at recent hospitalization. Will order records. 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 Status: Acute Additional A&P Information Hypokalemia. Supplement IV and p.o. 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
[2021-03-03] MEDS: hydrocortisone 10 mg Tablet 27.5 MG PO (09:53)
[2021-03-03] MEDS: enoxaparin 40 mg/0.4 mL Syringe SUBCUT (09:53)
--- NOTE | 2021-03-03 11:33 | PC.SOCIAL ---
IMM Update pg 2 of IMM updated and reviewed w/ patient. Copy provided.
[2021-03-03 11:34] LABS: Glucose Point of Care 210 mg/dL (70-110)
[2021-03-03] MEDS: lidocaine 5% Patch 1 PATCH TOPICAL (12:30)
[2021-03-03] MEDS: sucralfate 1 gm Tablet PO ×3 (12:44→20:00)
[2021-03-03] MEDS: vancomycin 1,250 MG/250 ML PIGGYBACK 200 MG IV (12:44)
[2021-03-03] MEDS: insulin lispro 100 unit/1 mL SUBCUT ×2 (12:45→17:35)
[2021-03-03] MEDS: metOLazone 5 MG Tablet PO (12:45)
--- NOTE | 2021-03-03 16:06 | PC.NURSE ---
notified Dr Diop that patient is requesting a laxative. she said she has not had a bowel movement in 5 day days and the miralax isn't working
[2021-03-03 16:56] LABS: Glucose Point of Care 189 mg/dL (70-110)
[2021-03-03] MEDS: sennosides-docusate Tablet 2 TAB PO (17:34)
[2021-03-03] MEDS: hydrocortisone 10 mg Tablet 15 MG PO (19:59)
[2021-03-03] MEDS: pramipexole 0.25 mg Tablet 0.125 MG PO (19:59)
[2021-03-03] MEDS: duloxetine 30 mg Capsule 60 MG PO (20:00)
--- NOTE | 2021-03-03 20:22 | PC.NURSE ---
i reported high pulse 103 to nurse
[2021-03-03 21:13] LABS: Glucose Point of Care 157 mg/dL (70-110)
[2021-03-03] MEDS: bisacodyl 5 mg Tablet 10 MG PO (22:23)
[2021-03-04] VITALS (11 sets, daily range): BP systolic 101–133; BP diastolic 53–82; PULSE 89–107; RESP 16–21; TEMP 36.5–36.9; O2SAT 91–96
[2021-03-04] MEDS: ipratropium-albuterol 3 mL Neb INHALATION ×4 (03:32→19:40)
[2021-03-04 05:24] LABS: Vancomycin Trough 22.1 ug/mL (10-15)
[2021-03-04 05:33] LABS: Anion Gap 23.1 (5-19); Blood Urea Nitrogen 11 mg/dL (8-23); Carbon Dioxide 23 mmol/L (22-29); Chloride 92 mmol/L (98-107); Glomerular Filtration Rate 34.5 mL/min (90-130); Glucose 129 mg/dL (65-115); Magnesium 1.9 mg/dL (1.7-2.3); Osmolality Calculated 281 mOsm/kg (285-295); Potassium 3.1 mmol/L (3.5-5.1); Sodium 135 mmol/L (136-145)
--- NOTE | 2021-03-04 05:40 | PC.PHAR ---
Vancomycin trough level on dosage of 1250mg IVPB every 18 hours is 22.1. Frequency is adjusted to 1250mg IVPB every 24 hours with another trough level to be obtained before the fourth dose at this frequency.
[2021-03-04] MEDS: piperacillin-tazobactam 3.375 GM in sodium chloride 0.9% (plus) 50 ML IV ×2 (05:53→20:27)
[2021-03-04] MEDS: oxybutynin chloride XL 5 MG TABLET 10 MG PO (05:54)
[2021-03-04] MEDS: sucralfate 1 gm Tablet PO ×2 (05:54→14:18)
[2021-03-04] MEDS: levothyroxine 175 mcg Tablet PO (05:56)
[2021-03-04 06:33] LABS: Glucose Point of Care 125 mg/dL (70-110)
[2021-03-04] MEDS: spironolactone 25 mg Tablet PO (09:26)
[2021-03-04] MEDS: potassium chloride ER 20 mEq Tablet 40 MEQ PO ×2 (09:26)
[2021-03-04] MEDS: pantoprazole DR 40 mg Tablet PO ×2 (09:27→18:14)
[2021-03-04] MEDS: sennosides-docusate Tablet 2 TAB PO ×2 (09:27→18:14)
[2021-03-04] MEDS: lidocaine 5% Patch 1 PATCH TOPICAL (09:27)
[2021-03-04] MEDS: gabapentin 300 mg Capsule PO ×2 (09:27→18:14)
[2021-03-04] MEDS: hydrocortisone 10 mg Tablet 27.5 MG PO (09:27)
[2021-03-04] MEDS: enoxaparin 40 mg/0.4 mL Syringe SUBCUT (09:28)
[2021-03-04] MEDS: polyethylene glycol 3350 Pkt 17 gm PO (09:28)
[2021-03-04] MEDS: lidocaine 1% 5 ML in potassium chloride premix 100 ML 25 ML IV ×2 (09:28→14:18)
[2021-03-04] MEDS: FUROsemide 10 mg/mL SDV 10mL 80 MG IVP ×2 (09:31→21:19)
--- NOTE | 2021-03-04 12:00 | P.PN_ITS ---
Subjective Subjective: Interval history: Carolyn reports she feels like she is breathing a little easier. Less swollen. Thinks her leg is getting better. She reports she has some significant constipation. Medications: Reviewed: Yes Vitals/I&O/Wt Last Vital Signs Temp 97.7 F 03/04/21 11:14 Pulse 98 03/04/21 11:14 Resp 16 03/04/21 11:14 BP 133/82 03/04/21 11:14 Pulse Ox 91 03/04/21 11:14 03/03/21 03/04/21 03/04/21 22:59 06:59 14:59 Intake Total 400 / 1065 490 / 1555 170 / 170 Output Total 800 / 1600 1000 / 2600 700 / 700 Balance -400 / -535 -510 / -1045 -530 / -530 Physical Exam Narrative: EXAM NARRATIVE: General exam less dyspneic. Over 1500 cc negative in the last 24 hours Neck is supple Cardiovascular regular rate and rhythm, heart sounds distant Lungs clear but with diminished breath sounds at the bases Abdomen is soft, obese. Nontender Extremities 2+ edema bilaterally. Right greater than left. Erythema improving right lower extremity Data : 03/03/21 05:04 03/04/21 04:41 A&P Assessment and plan (1) Bilateral cellulitis of lower leg: Cellulitis right lower extremity only. Continue Zosyn and vancomycin. I think this is likely improving. Elevate leg is much as possible. Venous duplex negative. White blood cell decreased since admission but still slightly high. Status: Acute (2) CHF (congestive heart failure): I think she has significant lower extremity edema. This is multifactorial. Some of this is likely contributed by diastolic heart failure, sleep apnea, morbid obesity. Discussed with her it is unlikely we will get rid of all of her edema. Continue fluid restriction Continue Lasix 80 mg IV every 12 hours Supplement potassium Zaroxolyn 5 mg p.o. 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 Apparently this was disproven at [place] at recent hospitalization. Will order records. I have reviewed these records and there is no new information other than that already noted. 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 Status: Acute Additional A&P Information Hypokalemia. Supplement IV and p.o. Left shoulder pain, x-ray showed some degenerative disease Constipation. Suppository today. Full code Lovenox for DVT prophylaxis Attestations Medical Necessity Statement*: Needs continued hospitalization for IV antibiotics related cellulitis, and further diuresis with IV diuretics. 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
[2021-03-04 12:13] LABS: Glucose Point of Care 171 mg/dL (70-110)
--- NOTE | 2021-03-04 13:09 | PC.NURSE ---
Patient requested to hold off on the suppository until a later time today due to just having a large bm this morning.
--- NOTE | 2021-03-04 13:27 | PC.OT ---
PATIENT WAS ABLE TO DEMONSTRATE ABILITY TO PERFORM UE HEP WITH SHOULDER FLEXION GREATER THAN 90 DEGREES, PATIENT PERFORMING HER OWN ADLS WITH SPOUSE PROVIDING SBA. NO FURTHER SKILLED OT REQUIRED AT THIS TIME; DISCHARGE OT.
[2021-03-04] MEDS: insulin lispro 100 unit/1 mL SUBCUT ×2 (14:18→18:13)
[2021-03-04] MEDS: bisacodyl 10 mg Supp PR (16:07)
[2021-03-04 17:20] LABS: Glucose Point of Care 148 mg/dL (70-110)
[2021-03-04] MEDS: pramipexole 0.25 mg Tablet 0.125 MG PO (20:28)
[2021-03-04] MEDS: cyclobenzaprine 10 mg Tablet 5 MG PO (20:28)
[2021-03-04] MEDS: duloxetine 30 mg Capsule 60 MG PO (20:29)
[2021-03-04] MEDS: hydrocortisone 10 mg Tablet 15 MG PO (20:32)
[2021-03-04 20:40] LABS: Glucose Point of Care 142 mg/dL (70-110)
[2021-03-05] VITALS (10 sets, daily range): BP systolic 111–142; BP diastolic 65–88; PULSE 86–99; RESP 18–22; TEMP 36.6–36.9; O2SAT 91–97
[2021-03-05] MEDS: ipratropium-albuterol 3 mL Neb INHALATION ×4 (02:44→20:28)
[2021-03-05 03:48] LABS: Basophils # 0.1 10^3/uL (0.0-0.1); Basophils % 0.8 %; Eosinophils # 0.6 10^3/uL (0.0-0.8); Eosinophils % 3.9 %; Hematocrit 34.5 % (37.0-47.0); Hemoglobin 10.3 g/dL (11.5-15.3); Lymphocytes # 2.6 10^3/uL (0.8-4.8); Lymphocytes % 18.2 %; Mean Corpuscular HGB Conc 29.9 g/dL (30.0-36.0); Mean Corpuscular Volume 77.2 fl (81-99); Mean Platelet Volume 10.3 fL (7.4-10.4); Monocytes # 1.5 10^3/uL (0.2-0.9); Monocytes % 10.7 %; Neutrophils # 9.22 10^3/uL (1.8-7.7); Neutrophils % 64.4 %; Nucleated Red Blood Cells % 0.2 %; Platelet Count 305 10^3/cmm (130-400); Red Blood Count 4.47 10^6/uL (4.1-5.3); Red Cell Distribution Width 16.4 % (12.1-15.1); White Blood Count 14.3 10^3/uL (4.0-10.0)
[2021-03-05] MEDS: piperacillin-tazobactam 3.375 GM in sodium chloride 0.9% (plus) 50 ML IV ×3 (03:52→20:38)
[2021-03-05 04:11] LABS: Anion Gap 14.6 (5-19); Blood Urea Nitrogen 14 mg/dL (8-23); Calcium 8.9 mg/dL (8.5-10.5); Carbon Dioxide 30 mmol/L (22-29); Chloride 92 mmol/L (98-107); Glucose 133 mg/dL (65-115); Osmolality Calculated 280 mOsm/kg (285-295); Sodium 134 mmol/L (136-145)
[2021-03-05 04:12] LABS: Potassium 2.6 mmol/L (3.5-5.1)
[2021-03-05] MEDS: potassium chloride ER 20 mEq Tablet 40 MEQ PO ×3 (05:36→17:33)
[2021-03-05] MEDS: oxybutynin chloride XL 5 MG TABLET 10 MG PO (05:37)
[2021-03-05] MEDS: levothyroxine 175 mcg Tablet PO (05:37)
[2021-03-05] MEDS: lidocaine 1% 5 ML in potassium chloride premix 100 ML 25 ML IV (05:58)
[2021-03-05 08:53] LABS: Glucose Point of Care 151 mg/dL (70-110)
[2021-03-05] MEDS: pantoprazole DR 40 mg Tablet PO ×2 (10:19→17:33)
[2021-03-05] MEDS: hydrocortisone 10 mg Tablet 27.5 MG PO (10:19)
[2021-03-05] MEDS: gabapentin 300 mg Capsule PO ×2 (10:19→17:33)
[2021-03-05] MEDS: lidocaine 5% Patch 1 PATCH TOPICAL ×2 (10:20→20:43)
--- NOTE | 2021-03-05 10:56 | PC.SOCIAL ---
IMM Update pg 2 of IMM updated and reviewed w/ patient. Copy provided.
[2021-03-05 11:35] LABS: Glucose Point of Care 143 mg/dL (70-110)
[2021-03-05] MEDS: doxycycline 100 mg Tablet PO ×2 (11:42→17:33)
[2021-03-05] MEDS: sucralfate 1 gm Tablet PO ×3 (11:43→20:43)
[2021-03-05] MEDS: enoxaparin 40 mg/0.4 mL Syringe SUBCUT (11:43)
--- NOTE | 2021-03-05 12:28 | PM.PN ---
Subjective Subjective: Interval history: Carolyn reports she is doing okay. Not short of breath at rest. Leg is better. Urinated quite a bit yesterday. Medications: Reviewed: Yes Vitals/I&O/Wt Last Vital Signs Temp 98.2 F 03/05/21 07:11 Pulse 96 03/05/21 12:00 Resp 18 03/05/21 12:00 BP 125/86 03/05/21 12:00 Pulse Ox 95 03/05/21 12:00 03/04/21 03/05/21 03/05/21 22:59 06:59 14:59 Intake Total 505 / 780 250 / 1030 395 / 395 Output Total 1600 / 2300 800 / 3100 Balance -1095 / -1520 -550 / -2070 395 / 395 Weight last 48 hrs Weight 157.079 kg Physical Exam Narrative: EXAM NARRATIVE: General exam less dyspneic. Over 1500 cc negative in the last 24 hours Neck is supple Cardiovascular regular rate and rhythm, heart sounds distant Lungs clear but with diminished breath sounds at the bases Abdomen is soft, obese. Nontender Extremities 1-2+ edema bilaterally. Right greater than left. Erythema much improved right lower extremity Data : 03/05/21 02:44 03/05/21 02:44 Micro: Microbiology 02/28/21 02:15 Blood Culture - Final Blood NO GROWTH AFTER 5 DAYS 02/28/21 02:00 Blood Culture - Final Blood NO GROWTH AFTER 5 DAYS A&P Assessment and plan (1) Bilateral cellulitis of lower leg: Cellulitis right lower extremity only. Continue Zosyn. Discontinue vancomycin. Start doxycycline. Worried about renal function and its worsening with vancomycin in the face of diuretics. Considering leg is improved I think this changes warranted. Elevate leg is much as possible. Venous duplex negative. White blood cell decreased since admission but still slightly high. Status: Acute (2) CHF (congestive heart failure): I think she has significant lower extremity edema. This is multifactorial. Some of this is likely contributed by diastolic heart failure, sleep apnea, morbid obesity. Discussed with her it is unlikely we will get rid of all of her edema. Continue fluid restriction Hold IV Lasix today secondary to worsening renal function. Hold Aldactone. Supplement potassium Zaroxolyn 5 mg p.o. 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 Apparently this was disproven at [place] at recent hospitalization. Will order records. I have reviewed these records and there is no new information other than that already noted. 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 Please see old records regarding this Status: Acute (4) KP (obstructive sleep apnea): Outpatient sleep study has apparently already been ordered Status: Acute (5) Chronic kidney disease, stage 3a: Continue to follow renal function closely Discussed with her anti-inflammatories are contraindicated with renal disease and she should not be taking these at the hospital, nor at home. Status: Acute Additional A&P Information Hypokalemia. Supplement IV and p.o. Left shoulder pain, x-ray showed some degenerative disease Constipation. Suppository today. Full code Lovenox for DVT prophylaxis If renal function stabilizes, could consider discharge home considering improvement she has had an cellulitis. Hopefully this will occur as early as the next 1 to 2 days. Attestations Medical Necessity Statement*: Needs continued hospitalization for IV antibiotics for cellulitis and close follow-up of renal function. 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
--- NOTE | 2021-03-05 14:38 | PC.CHAP ---
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 grain merchandising manager visit [] Patient/Family/Request visit [] Outpatient visit [xx] Follow-up visit [] Physician referral [] Code/Alert [] Routine visit [] Staff referral [] Actively dying [] Patient sleeping [] Family support [] [xx] Out of room [] Palliative care [] [xx] Receiving care in room [] Pre-surgical visit [] Trauma [xx] Long length of stay [] ICU visit [] Other: Relational/Emotional Strength [] Patient feels connected with others/family/visitors/staff [] Distress [] Loneliness/isolation [] Abandonment Spirituality of Patient [] Person of [place] [] Attends [facility] of their [place] [] Believes in Prayer [] Reads Bible or Mu-Ism materials [] There are Spiritual issues to be addressed Human Resources Training Manager Interventions [] Prayer [] Active listening [] Non-anxious presence [] Spiritual/emotional support [] Crisis/trauma care [] Spiritual counseling [] Bereavement support [] Provided bereavement packet [] Provided Bible/devotional materials [] Provided toy/stuffed animal, coloring book to patient or family member [] Provided Communion [] Anointing/[place] [] Salvation [] Completed spiritual assessment [] Other: Impact on Illness or Injury [] Angry [] Fearful [] Anxious [] Often cries [] Exhaustion [] Unable to work [] Unable to attend roman catholic [] Unable to walk/stand [] Unable to read [] Unable to drive [] Unable to eat/drink [] Unable to sleep [] Unable to be with family [] Patient intubated [] Other: Summary Follow up later. Time spent with patient
[2021-03-05 17:16] LABS: Glucose Point of Care 241 mg/dL (70-110)
[2021-03-05] MEDS: insulin lispro 100 unit/1 mL SUBCUT (18:04)
[2021-03-05] MEDS: duloxetine 30 mg Capsule 60 MG PO (20:39)
[2021-03-05] MEDS: hydrocortisone 10 mg Tablet 15 MG PO (20:40)
[2021-03-05] MEDS: pramipexole 0.25 mg Tablet 0.125 MG PO (20:42)
[2021-03-05 21:31] LABS: Glucose Point of Care 153 mg/dL (70-110)
[2021-03-05 21:32] LABS: Glucose Point of Care 200 mg/dL (70-110)
[2021-03-06] VITALS (12 sets, daily range): BP systolic 104–139; BP diastolic 70–81; PULSE 86–102; RESP 16–20; TEMP 36.4–36.7; O2SAT 91–95
[2021-03-06] MEDS: ipratropium-albuterol 3 mL Neb INHALATION ×4 (02:37→20:08)
[2021-03-06 03:36] LABS: Basophils # 0.1 10^3/uL (0.0-0.1); Basophils % 0.9 %; Eosinophils # 0.5 10^3/uL (0.0-0.8); Eosinophils % 3.7 %; Hematocrit 35.4 % (37.0-47.0); Hemoglobin 10.6 g/dL (11.5-15.3); Lymphocytes # 1.7 10^3/uL (0.8-4.8); Lymphocytes % 13.9 %; Mean Corpuscular HGB Conc 29.9 g/dL (30.0-36.0); Mean Corpuscular Hemoglobin 23.3 pg (28.0-34.0); Mean Corpuscular Volume 77.8 fl (81-99); Mean Platelet Volume 9.7 fL (7.4-10.4); Monocytes # 1.2 10^3/uL (0.2-0.9); Neutrophils # 8.58 10^3/uL (1.8-7.7); Neutrophils % 69.6 %; Nucleated Red Blood Cells % 0.2 %; Platelet Count 279 10^3/cmm (130-400); Red Blood Count 4.55 10^6/uL (4.1-5.3); Red Cell Distribution Width 16.3 % (12.1-15.1); White Blood Count 12.3 10^3/uL (4.0-10.0)
[2021-03-06 03:56] LABS: Anion Gap 19.3 (5-19); Blood Urea Nitrogen 16 mg/dL (8-23); Carbon Dioxide 25 mmol/L (22-29); Chloride 91 mmol/L (98-107); Glomerular Filtration Rate 37.4 mL/min (90-130); Glucose 153 mg/dL (65-115); Magnesium 2.2 mg/dL (1.7-2.3); Osmolality Calculated 278 mOsm/kg (285-295); Phosphorus 3.1 mg/dL (2.5-4.5); Potassium 3.3 mmol/L (3.5-5.1); Sodium 132 mmol/L (136-145)
[2021-03-06] MEDS: piperacillin-tazobactam 3.375 GM in sodium chloride 0.9% (plus) 50 ML IV ×3 (04:16→20:24)
[2021-03-06] MEDS: levothyroxine 175 mcg Tablet PO (06:13)
[2021-03-06] MEDS: oxybutynin chloride XL 5 MG TABLET 10 MG PO (06:13)
[2021-03-06] MEDS: sucralfate 1 gm Tablet PO ×4 (06:13→20:24)
[2021-03-06] MEDS: doxycycline 100 mg Tablet PO ×2 (08:36→17:36)
[2021-03-06] MEDS: pantoprazole DR 40 mg Tablet PO ×2 (08:36→17:36)
[2021-03-06] MEDS: potassium chloride ER 20 mEq Tablet 40 MEQ PO (08:36)
[2021-03-06] MEDS: gabapentin 300 mg Capsule PO ×2 (08:36→17:36)
[2021-03-06] MEDS: hydrocortisone 10 mg Tablet 27.5 MG PO (08:36)
[2021-03-06] MEDS: lidocaine 5% Patch 1 PATCH TOPICAL ×2 (08:37→20:20)
[2021-03-06] MEDS: ondansetron 2 mg/ML SDV 2 mL 4 MG IVP (08:44)
[2021-03-06] MEDS: enoxaparin 40 mg/0.4 mL Syringe SUBCUT (12:16)
[2021-03-06] MEDS: insulin lispro 100 unit/1 mL SUBCUT ×2 (12:17→17:36)
[2021-03-06 12:29] LABS: Glucose Point of Care 207 mg/dL (70-110)
[2021-03-06 12:29] LABS: Glucose Point of Care 140 mg/dL (70-110)
--- NOTE | 2021-03-06 13:41 | P.PN_ITS ---
Subjective Subjective: Interval history: Right leg is persistently swollen, some blisters have popped and are weeping down the right leg. Erythema intensity is coming down. She states anytime she goes home she automatically gains 15-20 pounds less when she transitions to oral diuretics. Reports she has been keeping closely with fluid restriction. Vitals/I&O/Wt Last Vital Signs Temp 98.1 F 03/06/21 11:35 Pulse 94 03/06/21 11:35 Resp 18 03/06/21 11:35 BP 104/74 03/06/21 11:35 Pulse Ox 94 03/06/21 11:35 03/05/21 03/06/21 03/06/21 22:59 06:59 14:59 Intake Total 290 / 925 530 / 1455 290 / 290 Output Total 860 / 860 460 / 460 Balance 290 / 925 -330 / 595 -170 / -170 Weight last 48 hrs Weight 157.079 kg Physical Exam Narrative: EXAM NARRATIVE: at bedside Const: COMMON NORMALS: no acute distress and patient oriented x3 NUTRITIONAL APPEARANCE: obese morbidly obese HENMT: COMMON NORMALS: oropharynx normal Neck/C-Spine: COMMON NORMALS: no JVD Resp: COMMON NORMALS: normal respiratory effort and clear to auscultation bilaterally AUSCULTATION: clear to auscultation bilaterally Cardio: COMMON NORMALS: no JVD, regular rhythm, S1 normal heart sound present, S2 normal heart sound present and No murmurs present (Cardio) RHYTHM: regular rhythm HEART SOUNDS: S1 normal heart sound present and S2 normal heart sound present GI: COMMON NORMALS: Normal to inspection, nondistended, normoactive bowel soun ds present, Soft to palpation and non-tender PALPATION: Yes Soft to palpation OTHER: Large pannus Extremity: COMMON NORMALS: no joint enlargement GENERAL: Yes edema (3-4+ RLE, 2-3+ LLE) Neuro: COMMON NORMALS: patient oriented x3 and moves all extremities Skin: COMMON NORMALS: no rashes or lesions noted GENERAL SKIN EXAM: no rashes or lesions noted RASHES: rashes noted (Improving/faint erythema RLE below the knee, minimal L foot) Data : 03/06/21 02:47 03/06/21 02:47 A&P Assessment and plan (1) CHF (congestive heart failure): Renal function appears stabilized. Creatinine 1.4. However, persistent edema, and she states today having blisters which opened up and are weeping. She is fluid overloaded. She also is concerned that anytime she restarts on oral diuretics as opposed to IV she gains 15-20 pounds in short order symptoms returning home. She states that she maintains fluid restriction, and points out calculation on the board which is being monitored for today. She does not feel safe returning home at this time. Discussed with her we can try to restart her diuretics here and monitor to try to optimize the dose to which she will respond. Discussed with her restarting Bumex, will restart at 2 mg at this time. Monitor I&O. Edema greater on the right than the left. She had duplex which showed no DVT. In addition to CHF consideration may be given also to venous insufficiency, and may benefit from venous reflux study. 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 Apparently this was disproven at [place] at recent hospitalization. Will order records. I have reviewed these records and there is no new information other than that already noted. Status: Acute Qualifiers: Heart failure type: unspecified Heart failure chronicity: acute Qualified Code(s): I50.9 - Heart failure, unspecified (2) Bilateral cellulitis of lower leg: Improving cellulitis of right lower extremity With fluid overload, weeping. Optimize diuretic therapy, elevate lower extremities. Continue Zosyn, doxycycline. Refer for venous reflux study. 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 Please see old records regarding this Status: Acute (4) KP (obstructive sleep apnea): Outpatient sleep study has apparently already been ordered Status: Acute (5) Chronic kidney disease, stage 3a: Continue to follow renal function closely Discussed with her anti-inflammatories are contraindicated with renal disease and she should not be taking these at the hospital, nor at home. Status: Acute Additional A&P Information Hypokalemia. Supplement p.o. Left shoulder pain, x-ray showed some degenerative disease Constipation. Received suppository. Had BM. Full code Lovenox for DVT prophylaxis Attestations Medical Necessity Statement*: Continue optimization of diuretic therapy secondary to CHF, fluid overload, recurrent fluid overload when transitioning to oral diuretics, with complication of right lower extremity cellulitis. 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
[2021-03-06] MEDS: bumetanide 1 mg Tablet 2 MG PO (14:41)
[2021-03-06] MEDS: hydrocortisone 10 mg Tablet 15 MG PO (20:21)
[2021-03-06] MEDS: pramipexole 0.25 mg Tablet 0.125 MG PO (20:23)
[2021-03-06] MEDS: duloxetine 30 mg Capsule 60 MG PO (20:24)
[2021-03-06 22:38] LABS: Glucose Point of Care 180 mg/dL (70-110)
[2021-03-07] VITALS (16 sets, daily range): BP systolic 103–157; BP diastolic 52–84; PULSE 52–105; RESP 17–22; TEMP 36.6–37.2; O2SAT 91–96
[2021-03-07] MEDS: ipratropium-albuterol 3 mL Neb INHALATION ×4 (02:02→20:22)
[2021-03-07 03:54] LABS: Basophils # 0.1 10^3/uL (0.0-0.1); Basophils % 0.7 %; Eosinophils # 0.5 10^3/uL (0.0-0.8); Hematocrit 32.2 % (37.0-47.0); Hemoglobin 9.6 g/dL (11.5-15.3); Lymphocytes # 2.2 10^3/uL (0.8-4.8); Lymphocytes % 18.2 %; Mean Corpuscular HGB Conc 29.8 g/dL (30.0-36.0); Mean Corpuscular Hemoglobin 23.1 pg (28.0-34.0); Mean Corpuscular Volume 77.4 fl (81-99); Mean Platelet Volume 9.6 fL (7.4-10.4); Monocytes # 1.1 10^3/uL (0.2-0.9); Monocytes % 8.8 %; Neutrophils # 8.13 10^3/uL (1.8-7.7); Nucleated Red Blood Cells % 0.2 %; Platelet Count 266 10^3/cmm (130-400); Red Blood Count 4.16 10^6/uL (4.1-5.3); Red Cell Distribution Width 16.1 % (12.1-15.1); White Blood Count 12.3 10^3/uL (4.0-10.0)
[2021-03-07 04:16] LABS: Anion Gap 14.6 (5-19); Blood Urea Nitrogen 14 mg/dL (8-23); Calcium 8.5 mg/dL (8.5-10.5); Carbon Dioxide 30 mmol/L (22-29); Chloride 94 mmol/L (98-107); Glomerular Filtration Rate 34.5 mL/min (90-130); Glucose 170 mg/dL (65-115); Magnesium 1.8 mg/dL (1.7-2.3); Osmolality Calculated 286 mOsm/kg (285-295); Sodium 136 mmol/L (136-145)
[2021-03-07 04:25] LABS: Potassium 2.6 mmol/L (3.5-5.1)
[2021-03-07] MEDS: piperacillin-tazobactam 3.375 GM in sodium chloride 0.9% (plus) 50 ML IV ×3 (04:25→20:21)
--- NOTE | 2021-03-07 04:53 | PC.NURSE ---
[id number] Wan regarding critical potassium of 2.6-awaiting orders.
[2021-03-07] MEDS: oxybutynin chloride XL 5 MG TABLET 10 MG PO (06:31)
[2021-03-07] MEDS: potassium chloride ER 20 mEq Tablet 40 MEQ PO ×2 (06:31→09:13)
[2021-03-07] MEDS: sucralfate 1 gm Tablet PO ×4 (06:32→20:22)
[2021-03-07] MEDS: lidocaine 1% 5 ML in potassium chloride premix 100 ML 25 ML IV (06:37)
[2021-03-07] MEDS: levothyroxine 175 mcg Tablet PO (06:44)
[2021-03-07] MEDS: gabapentin 300 mg Capsule PO ×2 (09:13→17:56)
[2021-03-07] MEDS: pantoprazole DR 40 mg Tablet PO ×2 (09:13→17:56)
[2021-03-07] MEDS: hydrocortisone 10 mg Tablet 27.5 MG PO (09:13)
[2021-03-07] MEDS: doxycycline 100 mg Tablet PO ×2 (09:13→17:56)
[2021-03-07] MEDS: lidocaine 5% Patch 1 PATCH TOPICAL (09:15)
[2021-03-07] MEDS: enoxaparin 40 mg/0.4 mL Syringe SUBCUT (09:19)
[2021-03-07] MEDS: insulin lispro 100 unit/1 mL SUBCUT ×3 (09:20→17:56)
[2021-03-07] MEDS: metOLazone 5 MG Tablet 2.5 MG PO (09:20)
[2021-03-07] MEDS: bumetanide 1 mg Tablet 2 MG PO (10:09)
--- NOTE | 2021-03-07 13:42 | PC.SOCIAL ---
IMM Update pg 2 of IMM updated and reviewed w/ patient. Copy provided.
--- NOTE | 2021-03-07 14:23 | P.PN_ITS ---
Subjective Subjective: Interval history: Endorses persistent swelling, getting blisters on her legs, not very much urine output after Bumex dose. Discussed with her escalation to Bumex plus metolazone today. Monitoring of urine output and further escalation of therapy depending on how she is tolerating to achieve reliable response to allow her to return home and continue the regimen. Vitals/I&O/Wt Last Vital Signs Temp 98.2 F 03/07/21 11:59 Pulse 52 L 03/07/21 11:59 Resp 22 H 03/07/21 11:59 BP 126/84 03/07/21 11:59 Pulse Ox 91 03/07/21 11:59 03/06/21 03/07/21 03/07/21 22:59 06:59 14:59 Intake Total 650 / 940 570 / 1510 207 / 207 Output Total 461 450 / 911 700 / 700 Balance 649 / 479 120 / 599 -493 / -493 Physical Exam Narrative: EXAM NARRATIVE: at bedside Const: COMMON NORMALS: no acute distress and patient oriented x3 NUTRITION AL APPEARANCE: obese morbidly obese HENMT: COMMON NORMALS: oropharynx normal Neck/C-Spine: COMMON NORMALS: no JVD Resp: COMMON NORMALS: normal respiratory effort and clear to auscultation bilaterally AUSCULTATION: clear to auscultation bilaterally Cardio: COMMON NORMALS: no JVD, regular rhythm, S1 normal heart sound present, S2 normal heart sound present and No murmurs present (Cardio) RHYTHM: regular rhythm HEART SOUNDS: S1 normal heart sound present and S2 normal heart sound present GI: COMMON NORMALS: Normal to inspection, nondistended, normoactive bowel sounds present, Soft to palpation and non-tender PALPATION: Yes Soft to palpation OTHER: Large pannus Extremity: COMMON NORMALS: no joint enlargement GENERAL: Yes edema (3-4+ RLE, 2-3+ LLE) Neuro: COMMON NORMALS: patient oriented x3 and moves all extremities Skin: COMMON NORMALS: no rashes or lesions noted GENERAL SKIN EXAM: no veronica hes or lesions noted RASHES: rashes noted (Improving/faint erythema RLE below the knee, minimal L foot) Data : 03/07/21 03:25 03/07/21 03:25 A&P Assessment and plan (1) CHF (congestive heart failure): She reports always a problem with transitioning to oral diuretics and returning home resulting in 15-20 pounds weight gain, fluid overload, edema recurrence despite maintaining fluid restriction. Started 2 mg Bumex yesterday, but despite that did not achieve negative balance. Discussed today with her augmentation with metolazone, given metolazone 30 minutes before Bumex dose. Monitor JESUS. Escalate until she is achieving sufficient diuresis to be in negative balance at which point may return home to continue there. Renal function appears stabilized. Creatinine 1.4-1.5. Edema greater on the right than the left. She had duplex which showed no DVT. In addition to CHF consideration may be given also to venous insufficiency. Refer for venous reflux study at discharge. 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 Apparently this was disproven at [place] at recent hospitalization. Will order records. I have reviewed these records and there is no new information other than that already noted. Status: Acute Qualifiers: Heart failure type: unspecified Heart failure chronicity: acute Qualified Code(s): I50.9 - Heart failure, unspecified (2) Bilateral cellulitis of lower leg: Improving cellulitis of right lower extremity With fluid overload, weeping. Optimize diuretic therapy, elevate lower extremities. Continue Zosyn, doxycycline. Refer for venous reflux study. 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 Please see old records regarding this Status: Acute (4) KP (obstructive sleep apnea): Outpatient sleep study has apparently already been ordered Status: Acute (5) Chronic kidney disease, stage 3a: Continue to follow renal function closely Discussed with her anti-inflammatories are contraindicated with renal disease and she should not be taking these at the hospital, nor at home. Status: Acute Additional A&P Information Hypokalemia. Supplement p.o. Left shoulder pain, x-ray showed some degenerative disease Constipation. Received suppository. Had BM. Full code Lovenox for DVT prophylaxis Attestations Medical Necessity Statement*: Continue admission for optimization of diuretic regimen for congestive heart failure management with recurrent exacerb ation/fluid overload with transition to oral medications. 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
[2021-03-07] MEDS: hydrocortisone 10 mg Tablet 15 MG PO (20:22)
[2021-03-07] MEDS: pramipexole 0.25 mg Tablet 0.125 MG PO (20:23)
[2021-03-07] MEDS: duloxetine 30 mg Capsule 60 MG PO (20:24)
--- NOTE | 2021-03-07 21:59 | PC.NURSE ---
Pt. HS blood glucose 160
[2021-03-07 22:33] LABS: Glucose Point of Care 160 mg/dL (70-110)
[2021-03-07 22:33] LABS: Glucose Point of Care 244 mg/dL (70-110)
[2021-03-07 22:33] LABS: Glucose Point of Care 224 mg/dL (70-110)
[2021-03-07 22:33] LABS: Glucose Point of Care 144 mg/dL (70-110)
[2021-03-08] VITALS (13 sets, daily range): BP systolic 109–157; BP diastolic 68–81; PULSE 85–98; RESP 18–22; TEMP 36.6–37.1; O2SAT 91–97
[2021-03-08] MEDS: ipratropium-albuterol 3 mL Neb INHALATION ×4 (02:02→21:15)
[2021-03-08 04:26] LABS: Basophils # 0.1 10^3/uL (0.0-0.1); Basophils % 0.8 %; Eosinophils # 0.5 10^3/uL (0.0-0.8); Eosinophils % 3.1 %; Hemoglobin 10.7 g/dL (11.5-15.3); Lymphocytes # 2.7 10^3/uL (0.8-4.8); Lymphocytes % 17.3 %; Mean Corpuscular HGB Conc 29.7 g/dL (30.0-36.0); Mean Corpuscular Hemoglobin 22.9 pg (28.0-34.0); Mean Corpuscular Volume 76.9 fl (81-99); Mean Platelet Volume 9.2 fL (7.4-10.4); Monocytes # 1.3 10^3/uL (0.2-0.9); Monocytes % 8.1 %; Neutrophils # 10.59 10^3/uL (1.8-7.7); Neutrophils % 68.8 %; Nucleated Red Blood Cells % 0.3 %; Platelet Count 312 10^3/cmm (130-400); Red Blood Count 4.68 10^6/uL (4.1-5.3); White Blood Count 15.4 10^3/uL (4.0-10.0)
[2021-03-08] MEDS: piperacillin-tazobactam 3.375 GM in sodium chloride 0.9% (plus) 50 ML IV ×3 (04:42→20:36)
[2021-03-08 04:46] LABS: Anion Gap 21.7 (5-19); Blood Urea Nitrogen 18 mg/dL (8-23); Calcium 8.9 mg/dL (8.5-10.5); Carbon Dioxide 27 mmol/L (22-29); Chloride 89 mmol/L (98-107); Glomerular Filtration Rate 40.7 mL/min (90-130); Glucose 175 mg/dL (65-115); Osmolality Calculated 286 mOsm/kg (285-295); Sodium 135 mmol/L (136-145)
[2021-03-08 04:58] LABS: Potassium 2.7 mmol/L (3.5-5.1)
[2021-03-08] MEDS: sucralfate 1 gm Tablet PO ×4 (06:34→20:42)
[2021-03-08] MEDS: oxybutynin chloride XL 5 MG TABLET 10 MG PO (06:34)
[2021-03-08] MEDS: levothyroxine 175 mcg Tablet PO (06:34)
[2021-03-08 06:59] LABS: Glucose Point of Care 200 mg/dL (70-110)
[2021-03-08] MEDS: potassium chloride ER 20 mEq Tablet 40 MEQ PO ×4 (07:01→20:42)
[2021-03-08 07:03] LABS: Magnesium 1.9 mg/dL (1.7-2.3); Phosphorus 3.3 mg/dL (2.5-4.5)
[2021-03-08] MEDS: insulin lispro 100 unit/1 mL SUBCUT ×3 (07:30→17:53)
[2021-03-08] MEDS: hydrocortisone 10 mg Tablet 27.5 MG PO (07:30)
[2021-03-08] MEDS: enoxaparin 40 mg/0.4 mL Syringe SUBCUT (08:57)
[2021-03-08] MEDS: lidocaine 5% Patch 1 PATCH TOPICAL ×2 (08:57→20:44)
[2021-03-08] MEDS: lidocaine 1% 5 ML in potassium chloride premix 100 ML 25 ML IV (08:58)
[2021-03-08] MEDS: metOLazone 5 MG Tablet PO (08:59)
[2021-03-08] MEDS: pantoprazole DR 40 mg Tablet PO ×2 (09:00→17:53)
[2021-03-08] MEDS: doxycycline 100 mg Tablet PO ×2 (09:00→17:53)
[2021-03-08] MEDS: spironolactone 25 mg Tablet 12.5 MG PO (09:00)
[2021-03-08] MEDS: gabapentin 300 mg Capsule PO ×2 (09:02→17:52)
[2021-03-08] MEDS: bumetanide 1 mg Tablet 2 MG PO ×2 (09:02→17:52)
--- NOTE | 2021-03-08 09:24 | PM.PN ---
Subjective Subjective: Interval history: Carolyn reports she feels like her legs are little bit better. They are still weeping. Redness right leg greatly improved. Medications: Reviewed: Yes Vitals/I&O/Wt Last Vital Signs Temp 98.8 F 03/08/21 07:41 Pulse 87 03/08/21 08:56 Resp 18 03/08/21 08:50 BP 138/80 03/08/21 07:41 Pulse Ox 92 03/08/21 08:50 03/07/21 03/08/21 03/08/21 22:59 06:59 14:59 Intake Total 530 / 737 530 / 1267 860 / 860 Output Total 250 / 950 320 / 1270 515 / 515 Balance 280 / -213 210 / -3 345 / 345 Weight last 48 hrs Weight 165.788 kg Physical Exam Narrative: EXAM NARRATIVE: General exam no distress Neck is supple Cardiovascular regular rate and rhythm, heart sounds distant Lungs clear but with diminished breath sounds at the bases Abdomen is soft, obese. Nontender Extremities 1-2+ edema bilaterally. Erythema right leg greatly improved Data : 03/08/21 04:15 03/08/21 04:15 A&P Assessment and plan (1) CHF (congestive heart failure): Minimal negative balance yesterday. Continue Bumex 2 mg daily Increase Zaroxolyn to 5 mg. Supplement potassium Secondary to marked low potassium add small amount of Aldactone back Creatinine appears to have stabilized Renal function appears stabilized. Creatinine 1.4-1.5. 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 Apparently this was disproven at [facility] at recent hospitalization. Will order records. I have reviewed these records and there is no new information other than that already noted. Status: Acute Qualifiers: Heart failure type: unspecified Heart failure chronicity: acute Qualified Code(s): I50.9 - Heart failure, unspecified (2) Bilateral cellulitis of lower leg: Improving cellulitis of right lower extremity With fluid overload, weeping. Optimize diuretic therapy, elevate lower extremities. Continue Zosyn, doxycycline. Venous duplex study negative for DVT Consider compression hose as right leg heals. 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 Please see old records regarding this Status: Acute (4) KP (obstructive sleep apnea): Outpatient sleep study has apparently already been ordered Status: Acute (5) Chronic kidney disease, stage 3a: Continue to follow renal function closely Discussed with her anti-inflammatories are contraindicated with renal disease and she should not be taking these at the hospital, nor at home. Status: Acute Additional A&P Information Hypokalemia. Supplement p.o., IV Left shoulder pain, x-ray showed some degenerative disease Constipation. Received suppository. Had BM. Full code Lovenox for DVT prophylaxis High likelihood of discharge tomorrow if negative fluid balance. Attestations Medical Necessity Statement*: Needs continued hospital stay for further diuresis prior to discharge. 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
--- NOTE | 2021-03-08 10:01 | PC.CHAP ---
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 [] Patient/Family/Request visit [] Outpatient visit [] Follow-up visit [] Physician referral [] Code/Alert [`x] Routine visit [] Staff referral [] Actively dying [] Patient sleeping [] Family support [] [] Out of room [] Palliative care [] [] Receiving care in room [] Pre-surgical visit [] Trauma [] Long length of stay [] ICU visit [] Other: Relational/Emotional Strength [x] Patient feels connected with others/family/visitors/staff [] Distress [] Loneliness/isolation [] Abandonment Spirituality of Patient []x Person of [place] [x] Attends Quaker of their [place] [x] Believes in Prayer [x] Reads Bible or Episcopalian materials [] There are Spiritual issues to be addressed Livestock Broker Interventions [x] Prayer [x] Active listening [x] Non-anxious presence [x] Spiritual/emotional support [] Crisis/trauma care [] Spiritual counseling [] Bereavement support [] Provided bereavement packet [] Provided Bible/devotional materials [] Provided toy/stuffed animal, coloring book to patient or family member [] Provided Communion [] Anointing/[place] [] Salvation [x] Completed spiritual assessment [] Other: Impact on Illness or Injury [] Angry [] Fearful [] Anxious [] Often cries [] Exhaustion [] Unable to work [] Unable to attend anglican [] Unable to walk/stand [] Unable to read [] Unable to drive [] Unable to eat/drink [] Unable to sleep [] Unable to be with family [] Patient intubated [] Other: Summary patient feeling much better today says asim cordova [id number] better Time spent with patient 10 min
[2021-03-08 11:54] LABS: Glucose Point of Care 258 mg/dL (70-110)
[2021-03-08 17:43] LABS: Glucose Point of Care 257 mg/dL (70-110)
[2021-03-08] MEDS: duloxetine 30 mg Capsule 60 MG PO (20:42)
[2021-03-08] MEDS: pramipexole 0.25 mg Tablet 0.125 MG PO (20:42)
[2021-03-08] MEDS: hydrocortisone 10 mg Tablet 15 MG PO (20:43)
[2021-03-08 20:52] LABS: Glucose Point of Care 201 mg/dL (70-110)
[2021-03-09] VITALS (7 sets, daily range): BP systolic 104–142; BP diastolic 63–85; PULSE 79–100; RESP 16–24; TEMP 36.7–36.8; O2SAT 90–95
[2021-03-09] MEDS: ondansetron 2 mg/ML SDV 2 mL 4 MG IVP ×2 (00:43→16:40)
[2021-03-09] MEDS: piperacillin-tazobactam 3.375 GM in sodium chloride 0.9% (plus) 50 ML IV (06:28)
[2021-03-09] MEDS: oxybutynin chloride XL 5 MG TABLET 10 MG PO (06:29)
[2021-03-09] MEDS: levothyroxine 175 mcg Tablet PO (06:29)
[2021-03-09 06:51] LABS: Basophils # 0.1 10^3/uL (0.0-0.1); Basophils % 0.8 %; Eosinophils # 0.5 10^3/uL (0.0-0.8); Eosinophils % 2.8 %; Hematocrit 34.4 % (37.0-47.0); Hemoglobin 10.2 g/dL (11.5-15.3); Lymphocytes # 2.5 10^3/uL (0.8-4.8); Lymphocytes % 15.9 %; Mean Corpuscular HGB Conc 29.7 g/dL (30.0-36.0); Mean Corpuscular Hemoglobin 22.6 pg (28.0-34.0); Mean Corpuscular Volume 76.3 fl (81-99); Mean Platelet Volume 9.8 fL (7.4-10.4); Monocytes # 1.6 10^3/uL (0.2-0.9); Monocytes % 10.2 %; Neutrophils # 10.86 10^3/uL (1.8-7.7); Neutrophils % 68.5 %; Nucleated Red Blood Cells % 0.2 %; Platelet Count 319 10^3/cmm (130-400); Red Blood Count 4.51 10^6/uL (4.1-5.3); Red Cell Distribution Width 15.9 % (12.1-15.1); White Blood Count 15.9 10^3/uL (4.0-10.0)
[2021-03-09] MEDS: sucralfate 1 gm Tablet PO (06:55)
[2021-03-09 06:56] LABS: Glucose Point of Care 171 mg/dL (70-110)
[2021-03-09 07:07] LABS: Anion Gap 18.5 (5-19); Blood Urea Nitrogen 19 mg/dL (8-23); Calcium 9.1 mg/dL (8.5-10.5); Carbon Dioxide 29 mmol/L (22-29); Chloride 90 mmol/L (98-107); Glomerular Filtration Rate 34.5 mL/min (90-130); Glucose 140 mg/dL (65-115); Osmolality Calculated 285 mOsm/kg (285-295); Sodium 135 mmol/L (136-145)
[2021-03-09 07:16] LABS: Potassium 2.5 mmol/L (3.5-5.1)
--- NOTE | 2021-03-09 07:17 | PC.NURSE ---
notified Dr Diop that patient has critical potassium of 2.5.
--- NOTE | 2021-03-09 09:24 | PC.SOCIAL ---
IMM Update pg 2 of IMM updated and reviewed w/ patient. Copy provided.
[2021-03-09] MEDS: potassium chloride ER 20 mEq Tablet 40 MEQ PO (11:19)
[2021-03-09] MEDS: sennosides-docusate Tablet 2 TAB PO (11:19)
[2021-03-09] MEDS: bumetanide 1 mg Tablet 2 MG PO (11:20)
[2021-03-09] MEDS: doxycycline 100 mg Tablet PO (11:20)
[2021-03-09] MEDS: pantoprazole DR 40 mg Tablet PO (11:20)
[2021-03-09] MEDS: spironolactone 25 mg Tablet 12.5 MG PO (11:21)
[2021-03-09] MEDS: gabapentin 300 mg Capsule PO (11:21)
[2021-03-09] MEDS: losartan 50 mg Tablet 25 MG PO (11:22)
[2021-03-09] MEDS: insulin lispro 100 unit/1 mL SUBCUT (11:23)
[2021-03-09] MEDS: lidocaine 1% 5 ML in potassium chloride premix 100 ML 25 ML IV (11:32)
[2021-03-09] MEDS: lidocaine 5% Patch 1 PATCH TOPICAL (11:36)
[2021-03-09] MEDS: enoxaparin 40 mg/0.4 mL Syringe SUBCUT (11:38)
[2021-03-09] MEDS: metOLazone 5 MG Tablet 2.5 MG PO (11:38)
--- NOTE | 2021-03-09 14:33 | P.DS_ITS ---
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 She was recently in the hospital here, and transfer to [place] on February 22 with concern of constrictive pericarditis. This diagnosis was disproven up there, and she was diuresed and treated for lower extremity cellulitis with oral antib iotics and eventually discharged 3 or so days prior to readmission here. During this hospital stay she received IV antibiotics consisting of vancomycin and Zosyn, later converted to doxycycline and Zosyn. She was diuresed with Lasix IV as well as Zaroxolyn, and transition to Bumex with Zaroxolyn. She had issues with hypokalemia which was aggressively supplemented. By the time of discharge she had greatly improved erythema of the right lower extremity. Venous duplex did not demonstrate any DVT. Peripheral edema was thought to be multifactorial, secondary to diastolic CHF, obesity hypoventilation, venous insufficiency. Sleep apnea might contribute as well for which she reports she already has a sleep study arranged. On March 09 it was thought she had stabilized enough for discharge home. She will need follow-up at the end of this week with a BMP, and office visit to ensure she has continued diuresis. I discussed with her the importance of fluid restriction, low-salt diet, medication compliance. She will weigh herself daily, and if weight goes up more than 2 to 3 pounds in 2 days she will call her primary care provider for possible additional Bumex dosing in the afternoon. She is not to take any anti-inflammatories. She will continue to taper her hydrocortisone as outlined by [facility] at her last discharge there. Potassium was increasing at time of discharge but still low on the last level obtained. We will give her 80 mEq of potassium prior to discharge. Physical Exam Narrative: EXAM NARRATIVE: General exam no distress Neck is supple Cardiovascular regular rate and rhythm Lungs clear Abdomen is soft, bowel sounds noted Extremities 1+ bilateral edema. Right lower extremity erythema greatly improved. Discharge Data Data Completed and Pending: Completed Studies During Hospitalization Category Date Time Status XR chest 1V anneliese ble [id number] Stat Exams 03/01/21 02:06 Completed XR chest 1V anneliese ble [id number] Urgent Exams 02/28/21 01:54 Completed XR shoulder LT mi n 2V* [id number] Routin e Exams 03/02/21 08:53 [place] [id number] Routin e Ultrasound 02/28/21 11:10 Completed Pending at discharge Category Date Time Status Potassium Timed Lab 03/09/21 14:00 Ordered Labs from last 24 hours 03/09/21 03/09/21 03/09/21 06:25 05:31 05:31 WBC 15.9 H RBC 4.51 Hgb 10.2 L Hct 34.4 L MCV 76.3 L MCH 22.6 L MCHC 29.7 L RDW 15.9 H Plt Count 319 MPV 9.8 Neut % (Auto) 68.5 Lymph % (Auto) 15.9 [place] % (Auto) 10.2 Eos % (Auto) 2.8 Baso % (Auto) 0.8 Neut # (Auto) 10.86 H Lymph # (Auto) 2.5 [place] # (Auto) 1.6 H Eos # (Auto) 0.5 Baso # (Auto) 0.1 Nucleated RBC % (a uto) 0.2 Nucleated RBCs # 0.0 Sodium 135 L Potassium 2.5 L* Chloride 90 L Carbon Dioxide 29 Anion Gap 18.5 BUN 19 Creatinine 1.5 H GFR Calculation 34.5 L Glucose 140 H POC Glucose 171 H Calculated Osmolal ity 285 Calcium 9.1 03/08/21 03/08/21 20:43 17:19 WBC RBC Hgb Hct MCV MCH MCHC RDW Plt Count MPV Neut % (Auto) Lymph % (Auto) [place] % (Auto) Eos % (Auto) Baso % (Auto) Neut # (Auto) Lymph # (Auto) [place] # (Auto) Eos # (Auto) Baso # (Auto) Nucleated RBC % (a uto) Nucleated RBCs # Sodium Potassium Chloride Carbon Dioxide Anion Gap BUN Creatinine GFR Calculation Glucose POC Glucose 201 H 257 H Calculated Osmolal ity Calcium Vitals: Last Vital Signs Temp 98.2 F 03/09/21 12:00 Pulse 86 03/09/21 12:00 Resp 24 H 03/09/21 12:00 BP 104/63 03/09/21 12:00 Pulse Ox 90 03/09/21 12:00 Discharge Plan Discharge Patient Disposition: Home Health Service Condition: Stable Prescriptions: New doxycycline monohydrate 100 mg Tablet 100 mg PO BID Qty: 10 RF: 0 polyethylene glycol 3350 17 gram Powder In Packet 17 g PO BID Qty: 60 RF: 0 sucralfate 1 gram Tablet 1 g PO AC&BEDTIME Qty: 120 RF: 0 sennosides-docusate sodium [Stool Softener-Laxative] 8.6-50 mg Tablet 2 tab PO BID Qty: 120 RF: 0 bumetanide 1 mg Tablet 2 mg PO DAILY Qty: 60 RF: 0 spironolactone 25 mg Tablet 12.5 mg PO DAILY Qty: 15 RF: 0 metolazone 5 mg Tablet 2.5 mg PO DAILY Qty: 30 RF: 0 losartan 50 mg Tablet 25 mg PO DAILY Qty: 15 RF: 0 Continued epinephrine [EpiPen 2-Nabeel] 0.3 mg/0.3 mL auto-injector 0.3 mg IM Q10M PRN (Reason: anaphylaxis) Qty: 2 RF: 3 duloxetine [Cymbalta] 30 mg capsule,delayed release(DR/EC) 60 mg PO BEDTIME RF: 0 cetirizine 10 mg tablet 10 mg PO QAM RF: 0 (DME) miscellaneous medical supply Misc See Rx Instructions .Route Qty: 1 RF: 0 clotrimazole-betamethasone 1-0.05 % cream 1 applic topical BID 28 Days Qty: 45 RF: 1 potassium chloride 10 mEq capsule, extended release 80 meq PO TID RF: 0 (DME) FreeStyle Daniel 2 Sensor Kit See Rx Instructions .Route Qty: 1 RF: 3 (DME) FreeStyle Daniel 2 Banner Misc See Rx Instructions .Route Qty: 1 RF: 0 allopurinol 100 mg tablet 100 mg PO DAILY PRN (Reason: GOUT) Qty: 30 RF: 1 (DME) Pharmacist Choice Strip See Rx Instructions .Route Qty: 50 RF: 2 (DME) blood-glucose meter,continuous Misc See Rx Instructions .Route Qty: 1 RF: 0 (DME) lancets [Easy Touch Lancets] 30 gauge misc See Rx Instructions .Route Qty: 100 RF: 1 levothyroxine 175 mcg tablet 175 mcg PO QAM RF: 0 Ozempic 1 mg/dose (2 mg/1.5 mL) pen injector 1 mg SUBCUT Q7D RF: 0 oxybutynin chloride 10 mg tablet extended release 24hr 10 mg PO QAM RF: 0 Immune Vitamin C 1 tab PO DAILY RF: 0 (DME) diabetic supplies, miscellan. Misc See Rx Instructions .Route Qty: 1 RF: 0 fluconazole 150 mg tablet 150 mg PO Q7D RF: 0 omeprazole 40 mg capsule,delayed release(DR/EC) 40 mg PO DAILY RF: 0 hydrocortisone 5 mg tablet See Rx Instructions .ROUTE .COMPLEX RF: 0 gabapentin 300 mg capsule 300 mg PO BEDTIME RF: 0 clonidine HCl 0.1 mg tablet 0.1 mg PO BID PRN (Reason: Blood Pressure) RF: 0 pramipexole 0.125 mg tablet 0.25 mg PO BEDTIME RF: 0 Discontinued bumetanide 1 mg tablet 1 mg PO PRN PRN (Reason: Edema) RF: 0 losartan 100 mg tablet 50 mg PO QAM Qty: 0 RF: 0 torsemide 20 mg tablet 40 mg PO BID RF: 0 spironolactone 100 mg tablet 100 mg PO DAILY RF: 0 metoprolol tartrate 25 mg tablet 25 mg PO BID PRN (Reason: Blood Pressure) RF: 0 amlodipine 5 mg Tablet 5 mg PO DAILY PRN (Reason: Blood Pressure) RF: 0 Discharge Orders: Discharge Order (Routine); Ordered 03/09/21 Ordered By: Oli Diop Other Ambulatory Orders: Miscellaneous Procedure (Order) Location: None Selected Ordered By: Oli Diop Referrals: [facility] [Outside] Piedad Sandhu MD [Primary Care Provider] - 1-3 days (BMP on follow-up later this week) Discharge Diet: Cardiac and Diabetic Discharge Activity: Increase activity as tolerated Patient Instructions: Heart Failure (DC), Opioid Safety Activity Restrictions/Additional Instructions: Weight yourself daily. Call if weight gain greater than 2 pounds 2 days in a row. Consideration for giving extra Bumex dose in the afternoon. Contact your physician for instructions. Continue to follow your taper for hydrocortisone given by [facility] Return for any worsening 1200 cc fluid restriction on discharge. 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
[2021-03-09 15:26] LABS: Potassium 2.8 mmol/L (3.5-5.1)
[2021-03-09] MEDS: potassium chloride ER 20 mEq Tablet 80 MEQ PO (16:47)
[2021-03-09 16:49] LABS: Glucose Point of Care 131 mg/dL (70-110)
--- NOTE | 2021-03-11 15:20 | PC.SOCIAL ---
appointment with Dr. Sandhu cancelled due to patient being in the [facility].
== END 2021-03-09 17:05 | disposition home health service (06) | DRG 602 ==
LOC: ER 05:14 → MEDSURG 06:02
PROVIDERS: Family Medicine; Hospitalist; Internal Medicine; Admitting Provider Student in an Organized Health Care Education/Training Program; Emergency Provider Emergency Medicine; PCP Family Medicine; Visit Provider Internal Medicine
DX: L03.115 Cellulitis of right lower limb (principal); I50.33 Acute on chronic diastolic (congestive) heart failure; I13.0 Hypertensive heart and chronic kidney disease with heart failure and stage 1 through stage 4 chronic kidney disease, or unspecified chronic kidney disease; E66.2 Morbid (severe) obesity with alveolar hypoventilation; Z68.44 Body mass index [BMI] 60.0-69.9, adult; L03.116 Cellulitis of left lower limb; E11.22 Type 2 diabetes mellitus with diabetic chronic kidney disease; N18.31 Chronic kidney disease, stage 3a; E03.8 Other specified hypothyroidism; E89.3 Postprocedural hypopituitarism; G89.29 Other chronic pain; E26.9 Hyperaldosteronism, unspecified; E87.6 Hypokalemia; K59.00 Constipation, unspecified; M19.012 Primary osteoarthritis, left shoulder; I87.2 Venous insufficiency (chronic) (peripheral); Z79.899 Other long term (current) drug therapy; Z87.891 Personal history of nicotine dependence; Z86.16 Personal history of COVID-19; Z86.018 Personal history of other benign neoplasm; Z79.52 Long term (current) use of systemic steroids; Z96.82 Presence of neurostimulator
CPT/HCPCS: 36415; 36416; 71045; 73030; 80048; 80053; 80202; 81001; 82962; 83605; 83735; 83880; 84100; 84132; 84145; 84484; 85025; 86140; 87040; 93005; 93970; 94640; 94664; 96365; 96372; 96375; 97110; 97116; 97161; 97166; 97530; 99285; J0743; J1650; J1815; J1940; J2405; J2543; J3370; J3475; J3480; J3490; J7050; J8499

== ENCOUNTER 2021-03-18 18:53 | Inpatient (IN) | payer MEDICARE, OTHER, SELFPAY ==
[2021-03-18] VITALS (7 sets, daily range): BP systolic 79–119; BP diastolic 55–93; PULSE 122–165; RESP 15–22; TEMP 36.6; O2SAT 94–97; BMI 51.9
--- NOTE | 2021-03-18 19:18 | XRR_ITS ---
PROCEDURE INFORMATION: Exam: XR Chest Exam date and time: 03/18/2021 7:18 PM Age: 70 years old Clinical indication: Shortness of breath and other: Tachycardia; Prior surgery; Surgery type: Spinal stimulator TECHNIQUE: Imaging protocol: XR of the chest. Views: 1 view. COMPARISON: CR (CHEST, ) 03/01/2021 2:45 AM FINDINGS: Tubes, catheters and devices: Stable stimulator lead over the lower thoracic spine. Lungs: Under penetration in the lung bases. The lungs are clear. No consolidation. Pleural spaces: Unremarkable. No pleural effusion. No pneumothorax. Heart/Mediastinum: Unremarkable. No cardiomegaly. Bones/joints: Unremarkable. XR/XR chest 1V portable [id number] IMPRESSION: No acute finding.
--- NOTE | 2021-03-18 19:19 | ECG_ITS ---
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 [email or web address]
--- NOTE | 2021-03-18 19:20 | W.ED.NAVMDI ---
HPI - Nausea/Vomiting/Diarrhea General: Chief complaint: Nausea/Vomiting/Diarrhea Stated complaint: N/V Time Seen by Provider: 03/18/21 18:55 History of Present Illness: HPI Narrative: Ms. 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 She is currently at a custodial facility after being discharged. At this facility they are continuing diuresis as well as completion of treatment of cellulitis. She notes multiple episodes of nausea and vomiting with any oral intake. Additionally she has had multiple episodes daily of nonbloody diarrhea which is liquid. She has minimal associated abdominal cramping. She also has associated generalized malaise and fatigue. No known specific provoking factors. No exacerbating relieving factors otherwise. No other changes in health or medications noted. History is otherwise limited by acuity of condition as the patient is noted to be in atrial fibrillation with RVR and hypotensive. Review of Systems General: Reports: 10 or more systems reviewed and unremarkable except in HPI and below PFSH ED PFSH: Medical History Adrenal insufficiency Anasarca Benign essential hypertension with target blood pressure below 140/90 Central hypothyroidism CHF (congestive heart failure) Chronic back pain Follows at pain clinic for periodic injections COVID-19 (~09/2020) Edema Facet arthritis, degenerative, lumbar spine History of anaphylaxis History of atrial fibrillation Intermittent, has not required long-term anticoagulation or focused treatment History of COVID-19 HTN (hypertension) Hyperaldosteronism 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 Obese Eyes - PERRL, no conjunctival injection ENMT - Atraumatic external nose and ears. Dry mucous membranes NECK - supple. trachea midline CARDIOVASCULAR - tachycardic rate and irregular rhythm. Normal peripheral perfusion. Bilateral 2+ pitting edema with stasis dermatitis changes, reportedly improved from baseline RESPIRATORY - diminished/coarse to auscultation bilaterally. No retractions or accessory muscle use. ABDOMEN/GI - Nontender/Nondistended. No tenderness to percussion or evidence of peritonitis MSK - Extremities without obvious deformity or tenderness to palpation SKIN - Warm, Dry NEURO - alert and appropriately oriented. Normal mentation. Moves all extremities equally. Course ED course: - Patient was seen and evaluated by me at bedside - Patient placed on cardiac monitors, IV access obtained - Initial evaluation notable for ill appearance, A. fib with RVR -Fluids and diltiazem with drip ordered - Labs notable for mild leukocytosis, microcytic anemia. Metabolic panel with mild hypokalemia, replenishment ordered, otherwise likely evidence of intravascular dehydration despite overall peripheral volume overload. RODRIGUE present and elevated lactate. - Imaging notable for no acute finding on chest x-ray. Given degree of illness as well as leukocytosis without clear source of infection CT imaging is warranted. No acute finding on CT chest abdomen pelvis. - Upon serial reexamination after treatment the patient was mildly improved, she did have some erroneously low blood pressures and likely also some true low blood pressures. These were discussed with admitting physician. Patient is mentating adequately with normal peripheral perfusion. - Based on patient history, evaluation, labs, and imaging as interpreted the most likely cause of the patient's condition is atrial fibrillation with RVR requiring IV drip, likely intervascular volume depletion secondary to diuresis with RODRIGUE, elevated lactate, and electrolyte/metabolic derangement present. - The results of ED evaluation were discussed with the patient including plan for admission due to requirement for level of care not available if discharged to prevent significant worsening/deterioration. -Hospitalist service contacted and agreed to the patient. - Patient was admitted without further deterioration or significant events. Vital Signs: Vital signs: Vital Signs Temperature 97.8 F 03/25/21 13:07 Pulse Rate 61 03/25/21 13:07 Respiratory Rate 18 03/25/21 13:07 Blood Pressure 134/75 03/25/21 13:07 Pulse Oximetry 95 03/25/21 13:07 MDM - Nausea/Vomiting/Diarrhea Medical Records: Attestation: I reviewed the patient's medical records. Lab Data: Attestation: I reviewed the patient's lab results. Labs: Lab Results 03/18/21 03/18/21 03/18/21 19:20 19:20 19:20 WBC 13.9 10^3/uL H 10 ^3/uL (4.0-10.0) RBC 4.44 10^6/uL 10^6 /uL (4.1-5.3) Hgb 10.2 g/dL L g/dL (11.5-15.3) Hct 33.8 % L % (37.0-47.0) MCV 76.1 fl L fl (81-99) MCH 23.0 pg L pg (28.0-34.0) MCHC 30.2 g/dL g/dL (30.0-36.0) RDW 16.4 % H % (12.1-15.1) Plt Count 353 10^3/cmm 10^3 /cmm (130-400) MPV 10.0 fL fL (7.4-10.4) Neut % (Auto) 68.1 % % Lymph % (Auto) 16.5 % % [place] % (Auto) 8.5 % % Eos % (Auto) 3.8 % % Baso % (Auto) 0.4 % % Neut # (Auto) 9.47 10^3/uL H 10 ^3/uL (1.8-7.7) Lymph # (Auto) 2.3 10^3/uL 10^3/ uL (0.8-4.8) [place] # (Auto) 1.2 10^3/uL H 10^ 3/uL (0.2-0.9) Eos # (Auto) 0.5 10^3/uL 10^3/ uL (0.0-0.8) Baso # (Auto) 0.1 10^3/uL 10^3/ uL (0.0-0.1) Nucleated RBC % (a uto) 0 % % Nucleated RBCs # 0.0 /100WBC /100W BC Sodium 133 mmol/L L mmol /L (136-145) Potassium 3.2 mmol/L L mmol /L (3.5-5.1) Chloride 93 mmol/L L mmol/ L (98-107) Carbon Dioxide 19 mmol/L L mmol/ L (22-29) Anion Gap 24.2 H (5-19) BUN 32 mg/dL H mg/dL (8-23) Creatinine 3.7 mg/dL H mg/dL (0.5-0.9) GFR Calculation 12.2 mL/min L mL/ min (90-130) Glucose 94 mg/dL mg/dL (65-115) POC Glucose Calculated Osmolal ity 283 mOsm/kg L mOs m/kg (285-295) Lactate Calcium 8.5 mg/dL mg/dL (8.5-10.5) Magnesium 1.5 mg/dL L mg/dL (1.7-2.3) Total Bilirubin 0.4 mg/dL mg/dL (0.15-1.2) AST 19 U/L U/L (0-32) ALT 15 U/L U/L (0-33) Alkaline Phosphata se 78 IU/L IU/L (35-105) Troponin T Baselin e 35 ng/L H ng/L (0-10) Troponin T 120 Min can Delta Troponin T C-Reactive Protein 66.1 mg/L H mg/L (0.0-4.9) NT-Pro-B Natriuret Pep 277 pg/mL H pg/mL (0-125) Total Protein 6.2 g/dL L g/dL (6.6-8.7) Albumin 3.3 g/dL L g/dL (3.5-5.2) Globulin 2.9 g/dL g/dL (1.3-4.6) Lipase 16 U/L U/L (13-60) Procalcitonin 0.16 ng/mL ng/mL (0-0.5) TSH 2.00 uIU/mL uIU/m L (0.27-4.20) Urine Color Urine Appearance Urine pH Ur Specific Gravit y Urine Protein Urine Glucose (UA) Urine Ketones Urine Blood Urine Nitrate Urine Bilirubin Urine Urobilinogen Ur Leukocyte Saida ase 03/18/21 03/18/21 03/18/21 19:50 20:00 20:40 WBC RBC Hgb Hct MCV MCH MCHC RDW Plt Count MPV Neut % (Auto) Lymph % (Auto) [place] % (Auto) Eos % (Auto) Baso % (Auto) Neut # (Auto) Lymph # (Auto) [place] # (Auto) Eos # (Auto) Baso # (Auto) Nucleated RBC % (a uto) Nucleated RBCs # Sodium Potassium Chloride Carbon Dioxide Anion Gap BUN Creatinine GFR Calculation Glucose POC Glucose 75 mg/dL mg/dL (70-110) Calculated Osmolal ity Lactate 2.5 mmol/L H mmol /L (0.5-2.2) Calcium Magnesium Total Bilirubin AST ALT Alkaline Phosphata se Troponin T Baselin e Troponin T 120 Min can Delta Troponin T C-Reactive Protein NT-Pro-B Natriuret Pep Total Protein Albumin Globulin Lipase Procalcitonin TSH Urine Color Yellow (Yellow) Urine Appearance Clear (CLEAR) Urine pH 6.5 (5-7) Ur Specific Gravit y 1.005 (1.005-1.030) Urine Protein Neg (Negative) Urine Glucose (UA) Norm (Normal) Urine Ketones Negative (Negative) Urine Blood Neg (Negative) Urine Nitrate Negative (Negative) Urine Bilirubin Neg (Negative) Urine Urobilinogen Norm mg/dL mg/dL (Negative) Ur Leukocyte Saida ase Negative (Negative) 03/18/21 21:30 WBC RBC Hgb Hct MCV MCH MCHC RDW Plt Count MPV Neut % (Auto) Lymph % (Auto) [place] % (Auto) Eos % (Auto) Baso % (Auto) Neut # (Auto) Lymph # (Auto) [place] # (Auto) Eos # (Auto) Baso # (Auto) Nucleated RBC % (a uto) Nucleated RBCs # Sodium Potassium Chloride Carbon Dioxide Anion Gap BUN Creatinine GFR Calculation Glucose POC Glucose Calculated Osmolal ity Lactate Calcium Magnesium Total Bilirubin AST ALT Alkaline Phosphata se Troponin T Baselin e Troponin T 120 Min can 37.43 ng/L H ng/L (0-10) Delta Troponin T 2.43 ABS# ABS# (0-10) C-Reactive Protein NT-Pro-B Natriuret Pep Total Protein Albumin Globulin Lipase Procalcitonin TSH Urine Color Urine Appearance Urine pH Ur Specific Gravit y Urine Protein Urine Glucose (UA) Urine Ketones Urine Blood Urine Nitrate Urine Bilirubin Urine Urobilinogen Ur Leukocyte Saida ase EKG Data^: EKG 1: Attestation: I personally reviewed and interpreted this EKG as follows: EKG interpretation date: 03/18/21 EKG interpretation time: 21:33 Interpretation: Twelve-lead EKG shows a irregular rhythm at a rate of 119. No DC interval, QRS duration 98, QTc 423. Borderline axis. Interpretation: Atrial fibrillation with rapid ventricular response. EKG 2: Attestation: I personally reviewed and interpreted this EKG as follows: EKG interpretation date: 03/18/21 EKG interpretation time: 19:18 Interpretation: Twelve-lead EKG shows an irregular rhythm at a rate of 161. No DC interval, QRS duration 100, QTc 374. Borderline axis. Interpretation: Atrial fibrillation with rapid ventricular response. Critical Care Time Critical Care Time: Critical Care Time: Yes Total Critical Care Time: 35 Attestation: Due to a high probability of clinically significant, possibly life threatening deterioration, the patient required my highest level of attention and preparedness to intervene emergently and I personally spent this critical care time directly and personally managing the patient. This critical care time included obtaining a history; examining the patient; pulse oximetry; ordering and review of laboratory and imaging studies; arranging urgent treatment with development of a management plan; evaluation of patient's response to treatment; frequent reassessment; and, discussions with other providers as applicable. It was exclusive of separately billable procedures. Discharge Plan Discharge Patient Disposition: Admitted As Inpatient Admit Provider: Petra Swan Clinical Impression: Atrial fibrillation with rapid ventricular response, Adrenal insufficiency, Dehydration, Nausea vomiting and diarrhea, RODRIGUE (acute kidney injury) Condition: Stable Discharge Diet: Cardiac Discharge Activity: Increase activity as tolerated Coding Level of Care Code ED Nursing Program Coordinator for Duarte Molina
[2021-03-18 19:35] LABS: Basophils # 0.1 10^3/uL (0.0-0.1); Basophils % 0.4 %; Eosinophils # 0.5 10^3/uL (0.0-0.8); Eosinophils % 3.8 %; Hematocrit 33.8 % (37.0-47.0); Hemoglobin 10.2 g/dL (11.5-15.3); Lymphocytes # 2.3 10^3/uL (0.8-4.8); Lymphocytes % 16.5 %; Mean Corpuscular HGB Conc 30.2 g/dL (30.0-36.0); Mean Corpuscular Volume 76.1 fl (81-99); Monocytes # 1.2 10^3/uL (0.2-0.9); Monocytes % 8.5 %; Neutrophils # 9.47 10^3/uL (1.8-7.7); Neutrophils % 68.1 %; Nucleated Red Blood Cells % 0 %; Platelet Count 353 10^3/cmm (130-400); Red Blood Count 4.44 10^6/uL (4.1-5.3); Red Cell Distribution Width 16.4 % (12.1-15.1); White Blood Count 13.9 10^3/uL (4.0-10.0)
[2021-03-18 19:52] LABS: Troponin(5th) Baseline 35 ng/L (0-10)
[2021-03-18] MEDS: sodium chloride 0.9% 1,000 ML 999 ML IV (20:00)
[2021-03-18 20:24] LABS: Lactate (Lactic Acid level) 2.5 mmol/L (0.5-2.2)
[2021-03-18 20:26] LABS: NT Pro B Type Natriuretic Pept 277 pg/mL (0-125); Procalcitonin 0.16 ng/mL (0-0.5)
[2021-03-18 20:37] LABS: Alanine Aminotransferase 15 U/L (0-33); Albumin Level 3.3 g/dL (3.5-5.2); Alkaline Phosphatase 78 IU/L (35-105); Aspartate Amino Transferase 19 U/L (0-32); Blood Urea Nitrogen 32 mg/dL (8-23); C Reactive Protein 66.1 mg/L (0.0-4.9); Calcium 8.5 mg/dL (8.5-10.5); Carbon Dioxide 19 mmol/L (22-29); Chloride 93 mmol/L (98-107); Globulin 2.9 g/dL (1.3-4.6); Glomerular Filtration Rate 12.2 mL/min (90-130); Glucose 94 mg/dL (65-115); Lipase 16 U/L (13-60); Magnesium 1.5 mg/dL (1.7-2.3); Osmolality Calculated 283 mOsm/kg (285-295); Sodium 133 mmol/L (136-145); Total Bilirubin 0.4 mg/dL (0.15-1.2); Total Protein 6.2 g/dL (6.6-8.7)
[2021-03-18 20:39] LABS: Anion Gap 24.2 (5-19); Potassium 3.2 mmol/L (3.5-5.1)
[2021-03-18 20:42] LABS: Glucose Point of Care 75 mg/dL (70-110)
[2021-03-18 20:45] LABS: Add Urine Microscopic? NO; Charge for UA Resulting for Rev
[2021-03-18 20:47] LABS: Bilirubin Urine Neg (Negative); Blood Urine Neg (Negative); Glucose Urine UA Norm (Normal); Ketones Urine Negative (Negative); Leukocyte Esterase Urine Negative (Negative); Nitrate Urine Negative (Negative); Protein Urine Neg (Negative); Specific Gravity, Urine 1.005 (1.005-1.030); Urine Appearance Clear (CLEAR); Urine Color Yellow (Yellow); Urobilinogen Urine Norm (Negative); pH Urine 6.5 (5-7)
--- NOTE | 2021-03-18 20:57 | CTR_ITS ---
PROCEDURE INFORMATION: Exam: CT Chest Without Contrast; Diagnostic Exam date and time: 03/18/2021 8:57 PM Age: 70 years old Clinical indication: Nausea and vomiting; Shortness of breath and other: Lower extremity swelling; Prior surgery; Additional info: SOB, n/v/d, ? pneumonia, ? colitis TECHNIQUE: Imaging protocol: Diagnostic computed tomography of the chest without contrast. Radiation optimization: All CT scans at this facility use at least one of these dose optimization techniques: automated exposure control; mA and/or kV adjustment per patient size (includes targeted exams where dose is matched to clinical indication); or iterative reconstruction. COMPARISON: CT chest [facility] [id number] 01/20/2021 2:20 PM RADIATION DOSE METRICS: Total DLP (mGy-cm): 2868.43 FINDINGS: Tubes, catheters and devices: Stimulator lead in the lower thoracic spinal canal. Lungs: Mild left lower lobe atelectasis. The lungs are otherwise clear. Pleural spaces: Unremarkable. No pneumothorax. No pleural effusion. Heart: Unremarkable. No cardiomegaly. No pericardial effusion. Aorta: Unremarkable. No aortic aneurysm. Lymph nodes: Unremarkable. No enlarged lymph nodes. Bones/joints: T6 vertebral body hemangioma. No compression fracture. Soft tissues: Unremarkable. PROCEDURE INFORMATION: Exam: CT Abdomen And Pelvis Without Contrast Exam date and time: 03/18/2021 8:57 PM Age: 70 years old Clinical indication: Nausea and vomiting; Shortness of breath and other: Lower extremity swelling; Prior surgery; Additional info: SOB, n/v/d, ? pneumonia, ? colitis TECHNIQUE: Imaging protocol: Computed tomography of the abdomen and pelvis without contrast. Radiation optimization: All CT scans at this facility use at least one of these dose optimization techniques: automated exposure control; mA and/or kV adjustment per patient size (includes targeted exams where dose is matched to clinical indication); or iterative reconstruction. COMPARISON: CT chest [facility] [id number] 01/20/2021 2:20 PM RADIATION DOSE METRICS: Total DLP (mGy-cm): 2868.43 FINDINGS: Tubes, catheters and devices: Stimulator lead in the right flank region with scar and lead extending into the thoracic spinal canal. Liver: Diffuse fatty infiltration of the liver. Gallbladder and bile ducts: Normal. No calcified stones. No ductal dilation. Pancreas: Normal. No ductal dilation. Spleen: Normal. No splenomegaly. Adrenal glands: Normal. No mass. Kidneys and ureters: Normal. No hydronephrosis. Stomach and bowel: Unremarkable. No obstruction. No mucosal thickening. Appendix: The appendix is not visualized. No secondary signs of appendicitis. Intraperitoneal space: Unremarkable. No free air. No significant fluid collection. Vasculature: Arterial calcifications. No aneurysm. Lymph nodes: Unremarkable. No enlarged lymph nodes. Urinary bladder: Unremarkable as visualized. Reproductive: The uterus and ovaries are absent. Bones/joints: Mild lumbar curvature with degenerative changes. Minimal L3 compression is most likely chronic. Soft tissues: Subcutaneous density in the lower right abdominal wall could represent a injection site or scar. CT/CT chest abd pel wo con IMPRESSION: 1. No acute finding identified in the chest. IMPRESSION: 1. No acute finding identified in the abdomen or pelvis. 2. Fatty liver.
--- NOTE | 2021-03-18 21:19 | ECG_ITS ---
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 Measurements Intervals [place] Rate: 119 P: [place]: QRS: 28 QRSD: 98 T: 62 QT: 352 QTc: 497 Interpretive Statements ATRIAL FIBRILLATION WITH RAPID VENTRICULAR RESPONSE ABNORMAL RHYTHM ECG Compared to ECG 03/18/2021 19:14:32 ST (T wave) deviation no longer present Electronically Signed On 03-20-2021 17:15:47 LEARNING SUPPORT ASSISTANT by Jaki Leavitt M.D. [id number]
[2021-03-18] MEDS: hydrocortisone 100 mg/2 mL SDV IVP (21:46)
[2021-03-18] MEDS: magnesium sulfate premix 2 GM/50 ML PIGGYBACK IV (21:47)
[2021-03-18] MEDS: lidocaine 1% 5 ML in potassium chloride premix 100 ML 25 ML IV (21:48)
[2021-03-18 22:04] LABS: Troponin 5 2HR 37.43 ng/L (0-10); Troponin 5 2HR Delta 2.43 ABS# (0-10)
[2021-03-18] MEDS: ondansetron 2 mg/ML SDV 2 mL 4 MG IVP (22:32)
--- NOTE | 2021-03-18 23:10 | P.HP_ITS ---
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 Patient has not been able to tolerate oral intake for the past few days. Noted decrease appetite and generalized weakness. Noted right upper quadrant abdominal pain however denied diarrhea or constipation. No fever or chills. Noted ongoing anasarca with mild improvement in right lower extremity redness with mild new redness in left lower extremity. Of note patient was recently treated for suspected lower extremity cellulitis. Upon arrival to ER patient was noted to be to be in atrial fibrillation with ra pid ventricular response. Initial laboratory workup showed a WBC of 13.9, hemoglobin 10.2, hematocrit of 33.8 and platelet count of 353.Sodium 133, potassium 3.2, chloride 93, bicarb 19, BUN 32 and creatinine of 3.7. Lactic acid was elevated at 2.5. Magnesium 1.5. Troponin T baseline 35. LFTs within normal limits. ProBNP of 277.Urinalysis did not show any evidence of infection. Procalcitonin was negative. Lipase negative. TSH 2.0. Imaging studies included chest x-ray which did not show any evidence of acute cardiopulmonary abnormality.CT of chest abdomen pelvis without contrast showed m ild left lower lobe atelectasis otherwise clear lungs. Incidental was noted to have a T6 vertebral body hemangioma. No acute findings were noted in abdomen or pelvis. ER medication: Cardizem 20 mg IV x 2 Cardizem drip Solu-cortef 100 mg IV x 1 Magnesium 2g IV x 1 Zofran 4 mg IV x 1 KCL NS 1L bolus Review of Systems General: Reports: 10 or more systems reviewed and unremarkable except in HPI and below Medications/Allergies Home Medications Medication Instructions Recorded Confirmed Last Taken Type epinephrine 0.3 mg/0.3 mL 0.3 mg IM Q10M PRN #2 ea 04/20/20 02/28/21 Unknown Rx injection, auto-injector clotrimazole-betamethasone 1 1 applic TOPICAL BID 28 Days #45 g 11/11/20 02/28/21 01/17/21 Rx %-0.05 % topical cream cetirizine 10 mg tablet 10 mg PO QAM tab 01/04/21 02/28/21 02/11/21 History duloxetine 30 mg capsule,delayed 60 mg PO BEDTIME cap 01/04/21 02/28/21 02/10/21 History release Immune Vitamin C 1 tab PO DAILY 01/19/21 02/28/21 02/11/21 History Ozempic 1 mg SUBCUT Q7D 01/19/21 02/28/21 02/07/21 History levothyroxine 175 mcg PO QAM 01/19/21 02/28/21 02/11/21 History oxybutynin chloride 10 mg PO QAM 01/19/21 02/28/21 02/11/21 History diabetic supplies, miscellan. #1 ea 01/21/21 02/28/21 Unknown Rx flash glucose scanning reader #1 ea 01/21/21 02/28/21 Unknown Rx fluconazole 150 mg PO Q7D 01/26/21 02/28/21 02/07/21 History omeprazole 40 mg PO DAILY 01/26/21 02/28/21 02/11/21 History miscellaneous medical supply #1 ea 02/05/21 02/28/21 Unknown Rx clonidine HCl 0.1 mg PO BID PRN 02/11/21 02/28/21 Unknown History potassium chloride 10 mEq 80 meq PO TID cap 02/11/21 02/28/21 02/11/21 History capsule,extended release pramipexole 0.25 mg PO BEDTIME 02/13/21 02/28/21 02/10/21 21:00 History allopurinol 100 mg tablet 100 mg PO DAILY PRN #30 tab 02/26/21 02/28/21 Unknown Rx gabapentin 300 mg PO BEDTIME 02/28/21 02/28/21 Unknown History hydrocortisone See Rx Instructions .ROUTE .COMPLEX 02/28/21 02/28/21 Unknown History flash glucose sensor #1 ea 03/01/21 03/01/21 Unknown Rx blood sugar diagnostic #50 ea 03/04/21 Unknown Rx blood-glucose meter,continuous #1 ea 03/04/21 Unknown Rx lancets 30 gauge #100 ea 03/04/21 Unknown Rx bumetanide 2 mg PO DAILY #60 tab 03/09/21 Unknown Rx doxycycline monohydrate 100 mg PO BID #10 tab 03/09/21 Unknown Rx losartan 25 mg PO DAILY #15 tab 03/09/21 Unknown Rx metolazone 2.5 mg PO DAILY #30 tab 03/09/21 Unknown Rx polyethylene glycol 3350 17 g PO BID #60 ea 03/09/21 Unknown Rx sennosides-docusate sodium [Stool 2 tab PO BID #120 tab 03/09/21 Unknown Rx Softener-Laxative] spironolactone 12.5 mg PO DAILY #15 tab 03/09/21 Unknown Rx sucralfate 1 g PO AC&BEDTIME #120 tab 03/09/21 Unknown Rx Allergies Allergy/AdvReac Type Severity Reaction Status Date / Time acetaminophen [From Tylenol] Allergy ALGY-Hives Verified 02/11/21 12:56 azithromycin Allergy ALGY-Anaphy Verified 02/11/21 12:56 laxis benzocaine Allergy ALGY-Hives Verified 02/11/21 12:56 butamben [From Cetacaine] Allergy ALGY-Swell Verified 02/11/21 12:56 Lip/Tongue/Throat codeine Allergy ALGY-Hives Verified 02/11/21 12:56 fentanyl Allergy ALGY-Anaphy Verified 02/11/21 12:56 laxis hydrocodone [From Vicodin] Allergy ALGY-Hives Verified 02/11/21 12:56 hydromorphone [From Dilaudid] Allergy ADR-Vomitin Verified 02/11/21 12:56 g Iodinated Contrast Media Allergy ALGY-Anaphy Verified 02/11/21 12:56 laxis liothyronine Allergy ADR-Nausea Verified 02/11/21 12:56 meperidine [From Demerol] Allergy Unknown Verified 02/11/21 12:56 morphine Allergy ALGY-Anaphy Verified 02/11/21 12:56 laxis nitrofurantoin Allergy ALGY-Joint Verified 02/11/21 12:56 [From Macrobid] Pain oxycodone [From Percocet] Allergy ALGY-Hives Verified 02/11/21 12:56 penicillin V Allergy ALGY-Hives Verified 02/11/21 12:56 Penicillins Allergy Unknown Verified 02/11/21 12:56 Phenothiazines Allergy ALGY-Anaphy Verified 02/11/21 12:56 laxis pregabalin [From Lyrica] Allergy ADV-Weaknes Verified 02/11/21 12:56 s procaine Allergy ALGY-Hives Verified 02/11/21 12:56 prochlorperazine Allergy ALGY-Anaphy Verified 02/11/21 12:56 [From Compazine] laxis Sulfa (Sulfonamide Allergy Unknown Verified 02/11/21 12:56 Antibiotics) tetracaine [From Cetacaine] Allergy ALGY-Swell Verified 02/11/21 12:56 Lip/Tongue/Throat PFSH Acute PFSH: Medical History Adrenal insufficiency Anasarca Benign essential hypertension with target blood pressure below 140/90 Central hypothyroidism CHF (congestive heart failure) Chronic back pain Follows at pain clinic for periodic injections COVID-19 (~09/2020) Edema Facet arthritis, degenerative, lumbar spine History of anaphylaxis History of atrial fibrillation Intermittent, has not required long-term anticoagulation or focused treatment History of COVID-19 HTN (hypertension) Hyperaldosteronism 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 Mother Cancer Lung disease Grandfather Cancer Grandmother Dementia Denies family history of Diabetes CAD (coronary artery disease) Clotting disorder Chronic kidney disease (CKD) Suicide Anesthesia complication Bleeding disorder Stroke Social History Quit status (tobacco): has quit using tobacco Year quit tobacco: 50 years ago Second hand smoke exposure: No Alcohol intake: never Caregiver/support person: Yes Lives independently: Yes Household members: spouse Marital status: service: No Current occupational status: retired Current gender identity: Female Female Reproductive History: Date of last menstrual period: 01/22/21 Vitals/I&O/Wt Last Vital Signs Temp 98 F 03/19/21 00:30 Pulse 111 H 03/19/21 02:30 Resp 17 03/19/21 02:30 BP 93/66 03/19/21 02:30 Pulse Ox 98 03/19/21 02:15 03/18/21 03/18/21 03/19/21 14:59 22:59 06:59 Intake Total 21.083 / .083 107.413 / 128.496 Balance .083 / .083 107.413 / 128.496 Weight last 48 hrs Weight 164.609 kg Weight 141.521 kg Physical Exam Narrative: EXAM NARRATIVE: General; Alert, awake oriented x 3, NAD HEENT: Grossly unremarkable CVS ; Irregularly irregular / tachycardia Chest : CTABL Abd; No focal tenderness Ext: B/L LE edema R>L with dependent rubra Urinary Catheter Management^: Zurita: Cath Placed During This Visit: yes Urinary Catheter Date of Insertion: 03/18/21 Urinary Catheter Time of Insertion: 22:24 Data : 03/19/21 01:28 03/18/21 19:20 Micro: Microbiology 03/18/21 21:30 Blood Culture - Preliminary Blood SPECIMEN COLLECTED 03/18/21 20:00 Blood Culture - Preliminary Blood SPECIMEN COLLECTED A&P Assessment and plan (1) Atrial fibrillation with rapid ventricular response: Status: Acute (2) Nausea & vomiting: Status: Acute (3) Acute worsening of stage 3 chronic kidney disease: Status: Acute (4) Anasarca: Status: Acute (5) Obstructive sleep apnea: Status: Acute (6) Central hypothyroidism: Status: Acute Additional A&P Information Atrial fibrillation with rapid ventricular response Complex mgmt due to hypotension Not on any rate control meds Continue cardizem drip - Titrate to keep HR < 110 Hold for SBP < 90 Started on Heparin drip per protocol Recent ECHO noted Consider cardiology consultation in am Acute on chronic stage 3 kidney disease Baseline creatinine around 1.5 Now increased to 3.7 Likely pre-renal / hypotension / diuretics Zurita placed Holding home losartan/bumex/metalazone Cautious fluid hydration Monitor urine output Renal dosing of meds Consider nephrology consult in am Hypokalemia Replaced in ER Repeat BMP in am Hypomagnesemia Mg 1.5 Replaced in ER Repeat in am Adrenal insufficiency S/p solu-cortef 100 mg IV x 1 Resumed oral solu-cortef 30mg PO am. 10 mg PO pm Nausea/vomiting/abdominal pain S/p CT abd/pelvis - no acute finding. Noted fatty liver Lipase wnl Procal wnl Zofran PRN LFT including ALP wnl CLD - advance as tolerated Anasarca including B/L LE edema R>L - with dependent rubra Procal negative Holding diuretics Daily weight Additional Medical Problems Hx of pituitary adenoma s/p resection Hypothyroidism Neuropathy KP not on CPAP Multiple allegies Hx of COVID-19 DVT ppx Heparin drip Attestations Medical Necessity Statement*: Anticipate over2 midnights stay in hospital for evaluation and treatment Time Spent in Patient Care: Greater than 35 minutes (>than 50% of time spent in counselling and/or direct pt care on unit) . Coding Level of Care Code Acute Manager Services for Chg Fwd Diagnoses Atrial fibrillation with rapid ventricular response I48.91 Nausea & vomiting R11.2 Acute worsening of stage 3 chronic kidney disease N18.30 Anasarca R60.1 Obstructive sleep apnea G47.33 Central hypothyroidism E03.8
[2021-03-19] VITALS (83 sets, daily range): BP systolic 71–175; BP diastolic 48–144; PULSE 73–141; RESP 12–37; TEMP 36.6–37.1; O2SAT 75–100; BMI 60.3; BMI 59.8
--- NOTE | 2021-03-19 01:19 | ECG_ITS ---
[facility] Test Date: 2021-03-19 Pat Name: Carolyn Alexander Department: Room: ICU04 Gender: Female Bilingual Case Manager: : 1950 Requested By: Elvin Hernandez Order Number: [id number] Marina MD: Jaki Leavitt M.D. Measurements Intervals [place] Rate: 117 P: MA: QRS: -5 QRSD: 97 T: 27 QT: 325 QTc: 454 Interpretive Statements ATRIAL fibrillation WITH RAPID VENTRICULAR RESPONSE MINIMAL ST DEPRESSION [0.025+ mV ST DEPRESSION] ABNORMAL RHYTHM ECG Compared to ECG 03/18/2021 21:33:10 ST (T wave) deviation now present Atrial fibrillation no longer present Electronically Signed On 03-22-2021 17:00:51 SITE SPECIALIST by Jaki Leavitt M.D. [email or web address]
[2021-03-19 01:37] LABS: Platelet Count 333 10^3/cmm (130-400)
[2021-03-19] MEDS: heparin drip 25,000 UNIT/500 ML PREMIX 36 UNIT IV (01:40)
[2021-03-19 01:56] LABS: Troponin 5 6HR 38.42 ng/L (0-10); Troponin 5 6HR Delta 3.42 ng/L (0-12)
--- NOTE | 2021-03-19 03:51 | PC.NURSE ---
On Unit Patient received to ICU 4 via stretcher. Hover mat used to transfer patient to bed. HR in afib w/ RVR ranging from 90-168, cardizem drip running per MAR. All other vitals stable.
--- NOTE | 2021-03-19 04:40 | PC.NURSE ---
Physician Communication Heparin drip per protocol ordered for patient; however, patient's weight exceeds the guidelines of the weight based protocol. Dr. Swan called for clarification of order. Order received for the heparin drip to be set to the maximum weight outlined by the protocol. Dr. Swan also notified of patient's blood pressure MAP ranging from 62-74 and new onset of abdominal pain in patient's right upper quadrant with pressure. No distention noted, no rebound tenderness, and pain is relieved with position change. Order received for levophed drip per protocol. Orders carried out per MAY.
[2021-03-19] MEDS: sucralfate 1 gm Tablet PO ×4 (06:00→20:39)
[2021-03-19 08:27] LABS: Partial Thromboplastin Time 63.9 SECONDS (23.9-36.7)
[2021-03-19 08:31] LABS: Anion Gap 21.2 (5-19); Blood Urea Nitrogen 25 mg/dL (8-23); Calcium 8.5 mg/dL (8.5-10.5); Carbon Dioxide 21 mmol/L (22-29); Chloride 95 mmol/L (98-107); Glomerular Filtration Rate 16.8 mL/min (90-130); Glucose 169 mg/dL (65-115); Magnesium 1.7 mg/dL (1.7-2.3); Osmolality Calculated 286 mOsm/kg (285-295); Potassium 3.2 mmol/L (3.5-5.1); Sodium 134 mmol/L (136-145)
[2021-03-19] MEDS: levothyroxine 175 mcg Tablet PO (09:11)
[2021-03-19] MEDS: oxybutynin chloride XL 5 MG TABLET 10 MG PO (09:12)
[2021-03-19] MEDS: hydrocortisone 10 mg Tablet 30 MG PO (09:12)
[2021-03-19] MEDS: pantoprazole DR 40 mg Tablet PO (09:13)
--- NOTE | 2021-03-19 09:51 | P.PN_ITS ---
Subjective Subjective: Interval history: Carolyn reports she feels little bit better this morning. History and physical reviewed. She was having nausea, vomiting and at the nursing facility for 5 days prior to arrival here. She reports here she has had no more vomiting, or loose stool. States she went into fast irregular heart rate at the shelter so requested to come to the hospital. Medications: Reviewed: Yes Vitals/I&O/Wt Last Vital Signs Temp 98.7 F 03/19/21 04:00 Pulse 120 H 03/19/21 09:31 Resp 22 H 03/19/21 07:00 BP 94/63 03/19/21 07:00 Pulse Ox 93 03/19/21 09:31 03/18/21 03/19/21 03/19/21 22:59 06:59 14:59 Intake Total 21.083 / 21.083 229.990 / 251.073 98.171 / 98.171 Output Total 3050 / 3050 Balance 21.083 / 21.083 -2820.010 / -2798.927 98.171 / 98.171 Weight last 48 hrs Weight 163.112 kg Weight 164.609 kg Weight 141.521 kg Physical Exam Narrative: EXAM NARRATIVE: General exam no distress. Currently on norepi nephrine, Cardizem Neck is supple Cardiovascular is borderline tachycardic, irregular, irregular Lungs clear Abdomen is soft, obese Extremities trace to 1+ edema bilaterally. Some skin breakdown right lateral and right medial ankle. Overall edema is greatly improved. Urinary Catheter Management^: Zurita: Cath Placed During This Visit: yes Reason for Continuing Indwelling Catheter: Accurate Measurement of Urinary Output in Critically Ill Patients Urinary Catheter Date of Insertion: 03/18/21 Urinary Catheter Time of Insertion: :24 Data : 03/19/21 01:28 03/19/21 08:00 Micro: Microbiology 03/18/21 21:30 Blood Culture - Preliminary Blood SPECIMEN COLLECTED 03/18/21 20:00 Blood Culture - Preliminary Blood SPECIMEN COLLECTED A&P Assessment and plan (1) Atrial fibrillation with rapid ventricular response: Currently on a Cardizem drip Wean as tolerated Initiate p.o. Cardizem if we can get her off norepinephrine Currently on heparin drip, consider oral anticoagulation initiation if it is obvious she will not need any procedures/dialysis catheter. Status: Acute (2) Nausea & vomiting: This has abated once admission has occurred. Monitor for any recurrence. If any significant diarrhea, consider C. difficile toxin Status: Acute (3) Acute worsening of stage 3 chronic kidney disease: Continue to follow closely. Zurita has been placed. Output has been excellent. Renal function has already started to improve Status: Acute (4) Anasarca: Holding diuretics today, restart when appropriate Markedly improved from last hospitalization Status: Acute (5) Obstructive sleep apnea: Status: Acute (6) Central hypothyroidism: Continue hydrocortisone 30 in a.m. and 10 in p.m. Will need slow taper as an outpatient to ultimately 20 in the morning and 10 in the PM. Received 1 dose of Solu-Cortef on admission Status: Acute Additional A&P Information Hypotension. Potentially could be related to vomiting over the last several days reducing the ability to absorb her hydrocortisone by mouth Hypokalemia. Supplement IV and p.o. Hypomagnesemia. Already corrected Multiple other medical problems as outlined by past medical history Full code Heparin will suffice for DVT prophylaxis Attestations Medical Necessity Statement*: Needs continued hospitalization secondary to atrial fibrillation with rapid ventricular rate, acute kidney injury Critical Care Time: The high probability of a clinically significant, sudden or life threatening deterioration of the patient's [renal, vascular, GI] system(s) required my full and direct attention, intervention and personal management. The critical care time is as shown. This time is in addition to time spent performing any reported procedures but includes the following: [x] Data and vital sign review and interpretation [x] Patient assessment, examination and intervention [x] Documentation [x] Medication orders and management Critical Care Time (min): 36 Coding Level of Care Code Acute Charge Account Identification Clerk for Chg Fwd Diagnoses Atrial fibrillation with rapid ventricular response I48.91 Nausea & vomiting R11.2 Acute worsening of stage 3 chronic kidney disease N18.30 Anasarca R60.1 Obstructive sleep apnea G47.33 Central hypothyroidism E03.8
[2021-03-19] MEDS: lidocaine 1% 5 ML in potassium chloride premix 100 ML 25 ML IV (11:01)
[2021-03-19 14:44] LABS: Partial Thromboplastin Time 105.9 SECONDS (23.9-36.7)
[2021-03-19] MEDS: potassium chloride ER 20 mEq Tablet 40 MEQ PO (15:28)
[2021-03-19] MEDS: heparin drip 25,000 UNIT/500 ML PREMIX 27.99 UNIT IV (16:47)
--- NOTE | 2021-03-19 18:39 | PC.NURSE ---
Shift Note Frequent safety and comfort rounds continue. Orders and/or nursing care completed as indicated. Patient monitored for response to intervention and treatment(s). Education provided includes medications, care plan, and new results. Patient verbalized understanding. Patient up to bed today. Patient off Levo, see MAR.
[2021-03-19] MEDS: hydrocortisone 10 mg Tablet PO (20:39)
[2021-03-19] MEDS: metoprolol tartrate 25 mg Tablet PO (20:39)
--- NOTE | 2021-03-19 21:23 | PC.NURSE ---
ET tube per RT, Meds given per MAR, family notified
[2021-03-20] VITALS (36 sets, daily range): BP systolic 64–120; BP diastolic 51–95; PULSE 86–144; RESP 14–26; TEMP 36.6–36.8; O2SAT 84–98
[2021-03-20 04:11] LABS: Basophils # 0.1 10^3/uL (0.0-0.1); Basophils % 0.5 %; Eosinophils # 0.3 10^3/uL (0.0-0.8); Eosinophils % 2.4 %; Hematocrit 33.3 % (37.0-47.0); Lymphocytes # 1.9 10^3/uL (0.8-4.8); Lymphocytes % 13.7 %; Mean Corpuscular Volume 76.7 fl (81-99); Mean Platelet Volume 10.5 fL (7.4-10.4); Monocytes # 1.5 10^3/uL (0.2-0.9); Monocytes % 10.6 %; Neutrophils # 9.97 10^3/uL (1.8-7.7); Neutrophils % 71.4 %; Nucleated Red Blood Cells % 0 %; Platelet Count 333 10^3/cmm (130-400); Red Blood Count 4.34 10^6/uL (4.1-5.3); Red Cell Distribution Width 16.3 % (12.1-15.1)
[2021-03-20 04:31] LABS: Albumin Level 3.2 g/dL (3.5-5.2); Alkaline Phosphatase 77 IU/L (35-105); Blood Urea Nitrogen 22 mg/dL (8-23); Calcium 8.6 mg/dL (8.5-10.5); Carbon Dioxide 25 mmol/L (22-29); Chloride 93 mmol/L (98-107); Globulin 2.8 g/dL (1.3-4.6); Glomerular Filtration Rate 21.1 mL/min (90-130); Glucose 103 mg/dL (65-115); Magnesium 1.7 mg/dL (1.7-2.3); Osmolality Calculated 276 mOsm/kg (285-295); Sodium 131 mmol/L (136-145); Total Bilirubin 0.3 mg/dL (0.15-1.2)
[2021-03-20 04:40] LABS: Anion Gap 17.1 (5-19); Potassium 4.1 mmol/L (3.5-5.1)
[2021-03-20 04:41] LABS: Alanine Aminotransferase 14 U/L (0-33); Aspartate Amino Transferase 25 U/L (0-32)
[2021-03-20] MEDS: sucralfate 1 gm Tablet PO ×4 (06:39→20:12)
[2021-03-20] MEDS: hydrocortisone 10 mg Tablet 30 MG PO (08:22)
[2021-03-20] MEDS: pantoprazole DR 40 mg Tablet PO (08:22)
[2021-03-20] MEDS: oxybutynin chloride XL 5 MG TABLET 10 MG PO (08:22)
[2021-03-20] MEDS: levothyroxine 175 mcg Tablet PO (08:22)
[2021-03-20] MEDS: metoprolol tartrate 25 mg Tablet PO ×2 (08:36→20:12)
[2021-03-20 09:31] LABS: Partial Thromboplastin Time 38.8 SECONDS (23.9-36.7)
[2021-03-20] MEDS: heparin 5,000 unit/mL INJ 1 mL IV (09:42)
--- NOTE | 2021-03-20 11:13 | PC.NURSE ---
Heparin titrated per protocol around 1000. Heparin still running, not infused. WONG says that Heparin is infused.
[2021-03-20] MEDS: ondansetron 2 mg/ML SDV 2 mL 4 MG IVP (12:04)
--- NOTE | 2021-03-20 12:28 | PC.NURSE ---
Patient up to chair for lunch. Patient stated that she feels nauseated and does not feel well. Patient says that she can not pin-point what is making her feel that way. Patient denies pain. Patient states that she feel like her heart is galloping. Patient back in bed. Given Zofran, see MAR. Doctor notified. Patient states that the nausea has passed after the Zofran and getting back in bed.
[2021-03-20] MEDS: hydrocortisone 1% cream 28 gm 1 APPLIC TOPICAL ×2 (13:31→20:34)
[2021-03-20] MEDS: hydrocortisone 100 mg/2 mL SDV IVP ×2 (14:46→22:35)
--- NOTE | 2021-03-20 14:50 | PM.PN ---
Subjective Subjective: Interval history: Seen this morning. Nausea vomiting has resolved at this point. Blood pressure seems to be stable 90s over 60s. She is requiring 2 to 3 L of oxygen at rest however. She also states she has a history of obstructive sleep apnea and was on CPAP at nighttime but is not wearing it in the recent past due to the machine being malfunctioning. She has requested for a new machine but is not here yet. She does not wear oxygen at home to her knowledge. During our conversation she did get hypoxic down to 8485%. Nasal cannula was placed back on her. 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 Heart rate when seen at bedside has been appearing stable but on telemetry she has been having episodes of RVR. She also states that she feels her lower extremities are getting edematous again. She is off her diuretics at this time. They have been held secondary to her low blood pressures. present at bedside. Does complain of being lightheadedness when sitting up at times. Vitals/I&O/Wt Last Vital Signs Temp 98.2 F 03/20/21 12:00 Pulse 90 03/20/21 14:00 Resp 17 03/20/21 14:00 BP 73/55 03/20/21 14:00 Pulse Ox 97 03/20/21 14:00 03/19/21 03/20/21 03/20/21 22:59 06:59 14:59 Intake Total 1210 / 2224.372 62.25 / 2286.622 980.000 / 980.000 Output Total 525 / 1425 900 / 2325 Balance 685 / 799.372 -837.75 / -38.378 980.000 / 980.000 Weight last 48 hrs Weight 163.112 kg Weight 164.609 kg Weight 141.521 kg Physical Exam Narrative: EXAM NARRATIVE: General: Alert oriented x3, patient seen laying in bed on room air saturating 84%. Once 3 L nasal cannula placed saturating 92%. HEENT: Normocephalic, atraumatic, EOMI, breathing comfortably, no respiratory distress no acute distress. Large neck Cardio: Irregularly irregular normal S1-S2, no gross murmurs, JVD unable to be checked due to body habitus Respiratory: Good bilateral air entry, no wheezes no rhonchi appreciated GI: Abdomen soft, obese rounded abdomen, nondistended, bowel sounds positive Behavior: Appropriate and cooperative Extremities: Pulses 2+, 2+ pitting edema bilateral lower extremities. There is also a blister by right Achilles tendon area oozing yellowish pus. Urinary Catheter Management^: Zurita: Cath Placed During This Visit: yes Reason for Continuing Indwelling Catheter: Accurate Measurement of Urinary Output in Critically Ill Patients Urinary Catheter Date of Insertion: 03/18/21 Urinary Catheter Time of Insertion: 22:24 Data : 03/20/21 03:10 03/20/21 03:10 Micro: Microbiology 03/18/21 21:30 Blood Culture - Preliminary Blood NEGATIVE TO DATE 03/18/21 20:00 Blood Culture - Preliminary Blood NEGATIVE TO DATE A&P Assessment and plan (1) Acute worsening of stage 3 chronic kidney disease: Status: Acute (2) Nausea & vomiting: Status: Acute (3) Atrial fibrillation with rapid ventricular response: Status: Acute (4) RODRIGUE (acute kidney injury): Status: Acute (5) Pulmonary hypertension: Status: Acute (6) Dyspnea: Status: Acute Qualifiers: Dyspnea type: dyspnea on exertion Qualified Code(s): R06.00 - Dyspnea, unspecified (7) Obstructive sleep apnea: Status: Acute (8) KP (obstructive sleep apnea): Status: Acute (9) Type 2 diabetes mellitus with other diabetic kidney complication: Status: Acute (10) Pituitary macroadenoma with extrasellar extension: Status: Acute (11) Central hypothyroidism: Status: Acute (12) Benign essential hypertension with target blood pressure below 140/90: Status: Acute (13) CHF (congestive heart failure): Status: Acute Qualifiers: Heart failure type: unspecified Heart failure chronicity: acute Qualified Code(s): I50.9 - Heart failure, unspecified (14) Obesity: Status: Acute (15) Adrenal insufficiency: Status: Acute (16) Chronic back pain: Status: Chronic (17) Anasarca: Status: Acute Additional A&P Information #Panhypopituatarism #Adrenal Insufficiency #Pulmonary Hypertension - suspicion #Nausea/Vomitting #RODRIGUE on CKD 3 # KP #Generalized anasarca #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 and she was cleared for that. She is currently on Solu-Cortef 30 mg in the morning and 10 mg at nighttime. She required Cardizem 20 IV push and Cardizem drip initially when she presented to the hospital for atrial fibrillation and then was also placed on a heparin drip. She briefly required Levophed due to soft blood pressures. She did get 1 dose of stress dose steroids in the ER Solu-Cortef 100 mg IV. Levophed has been weaned off at this point. Blood pressures are still borderline low. Nausea vomiting has resolved. All her records have been reviewed from previous visits with pulmonology and endocrinology. Patient was recommended a right heart catheterization to evaluate for ventricular end-diastolic pressure as well as evidence of constrictive pericarditis by pulmonology at her most recent visit in January.. She is also been set up with CPAP at nighttime which she is not wearing at this time since the machine is not working. Pulmonary hypertension also needs to be ruled out at this point. She is requiring 3 L nasal cannula at rest. She is a non-smoker nondrinker. During this hospital stay she has had low blood pressures. TSH was 2.0. But due to central hypopituitarism we will check free T4. If low versus high will adjust dosages for Synthroid. Patient will require outpatient follow-up with pulmonology, cardiology and endocrinology. -Today's plan 03/20. ?Patient still in atrial fibrillation and has had episodes of RVR overnight as well as a day. She is currently on Lopressor 25 twice daily. We will continue for now. To control blood pressure I will put her on stress dose steroids today hydrocortisone 100 every 8 hours. I will do this for 2 to 3 days and then transition her back to maintenance dose. Once blood pressure permits we will add back her diuretic. I will order CPAP for tonight. We will keep her on nasal cannula and titrate. She will probably need home oxygen at discharge. Will order home O2 evaluation at discharge as well. ?Nausea vomiting has resolved at this point. We will continue to watch patient. ?Denies diarrhea or constipation ?She does have an ulcer on posterior aspect of Achilles tendon on right foot. I will order wound care. I will plan to do doxycycline 100 twice daily for that. Limited with choice of antibiotics since patient has a number of allergies. ?For atrial fibrillation with RVR we will continue to watch patient on monitor. As blood pressure permits will titrate medications. If this current plan fails will involve cardiology for possible VISHAL and cardioversion. For now I have stopped her heparin drip and placed her on Eliquis 2.5 twice daily renally dosed. [id number] 3. -Creatinine is improved to 2.3. It was 3.7 on admission. Most likely secondary to dehydration. We will continue to monitor. Will avoid nephrotoxic medications. Patient requested her gabapentin today. I told her I will just restarted at a lower dose. -We will order iron studies for patient's anemia. RDW also high have suspicion of iron deficiency. -Check free T4. Did briefly discuss case with patient's outpatient facsimile operator over the phone. Full code DVT prophylaxis on Eliquis now. We will keep another night in the ICU today due to labile blood pressures. Attestations Medical Necessity Statement*: > 48 hour stay Critical Care Time: Chart review, documentation, seeing patient. Critical Care Time (min): 40 Coding Level of Care Code Acute It Applications Developer for Chg Fwd Diagnoses Acute worsening of stage 3 chronic kidney disease N18.30 Nausea & vomiting R11.2 Atrial fibrillation with rapid ventricular response I48.91 RODRIGUE (acute kidney injury) N17.9 Pulmonary hypertension I27.20 Dyspnea R06.00 Dyspnea type: dyspnea on exertion Obstructive sleep apnea G47.33 KP (obstructive sleep apnea) G47.33 Type 2 diabetes mellitus with other diabetic kidney complication E11.29 Pituitary macroadenoma with extrasellar extension D35.2 Central hypothyroidism E03.8 Benign essential hypertension with target blood pressure below 140/90 I10 CHF (congestive heart failure) I50.9 Heart failure type: unspecified Heart failure chronicity: acute Obesity E66.9 Adrenal insufficiency E27.40 Chronic back pain M54.9; G89.29 Anasarca R60.1
[2021-03-20 15:51] LABS: Free T4 Free Thyroxine 1.36 ng/dL (0.82-1.77)
--- NOTE | 2021-03-20 15:57 | PC.NURSE ---
Shift Note Frequent safety and comfort rounds continue. Orders and/or nursing care completed as indicated. Patient monitored for response to intervention and treatment(s). Education provided includes medications, order changes, and care plan. Patient verbalized understanding. Heparin turned off at 1446 and 46 mL wasted. Report given.
--- NOTE | 2021-03-20 16:00 | PC.NURSE ---
Report received from MYRON Barahona. Care assumed.
--- NOTE | 2021-03-20 18:01 | PC.NURSE ---
Shift Note: Pt rested in bed most of the day. No issues this shift. Levophed gtt off for over 24 hrs. Heparin gtt discontinued. Frequent safety and comfort rounds continue. Orders and/or nursing care completed as indicated. Patient monitored for response to intervention and treatment(s). Education provided includes continuing plan of care and medications . Patient and/or canvas products sales representative verbalized understanding of continuing plan of care, possible transfer out of ICU tomorrow, and medications. Will continue to monitor.
[2021-03-20] MEDS: FUROsemide 10 mg/mL SDV 2mL 20 MG IVP (20:34)
[2021-03-20 21:14] LABS: Ferritin 95 ng/mL (15-150); Iron 21 ug/dL (37-145); Percent Saturation 9.3 % (20-50); Total Iron Binding Capacity 224 mcg/dl; Unsaturated Iron Binding 203 ug/dL (112-347)
[2021-03-20] MEDS: duloxetine 60 mg Capsule PO (22:35)
[2021-03-20] MEDS: ALPRAZolam 0.5 mg Tablet PO (23:59)
[2021-03-21] VITALS (49 sets, daily range): BP systolic 80–135; BP diastolic 43–109; PULSE 85–152; RESP 12–35; TEMP 36.4–36.6; O2SAT 80–98; BMI 59.3
[2021-03-21 05:06] LABS: Basophils % 0.2 %; Hematocrit 32.5 % (37.0-47.0); Hemoglobin 9.7 g/dL (11.5-15.3); Lymphocytes # 0.8 10^3/uL (0.8-4.8); Mean Corpuscular HGB Conc 29.8 g/dL (30.0-36.0); Mean Corpuscular Hemoglobin 23.2 pg (28.0-34.0); Mean Corpuscular Volume 77.6 fl (81-99); Mean Platelet Volume 9.6 fL (7.4-10.4); Monocytes # 0.7 10^3/uL (0.2-0.9); Monocytes % 5.4 %; Neutrophils # 10.18 10^3/uL (1.8-7.7); Neutrophils % 85.1 %; Nucleated Red Blood Cells % 0 %; Platelet Count 341 10^3/cmm (130-400); Red Blood Count 4.19 10^6/uL (4.1-5.3)
[2021-03-21 05:37] LABS: Blood Urea Nitrogen 19 mg/dL (8-23); Calcium 8.6 mg/dL (8.5-10.5); Carbon Dioxide 28 mmol/L (22-29); Chloride 95 mmol/L (98-107); Glomerular Filtration Rate 29.9 mL/min (90-130); Glucose 164 mg/dL (65-115); Magnesium 1.6 mg/dL (1.7-2.3); Osmolality Calculated 288 mOsm/kg (285-295); Sodium 136 mmol/L (136-145)
[2021-03-21] MEDS: hydrocortisone 100 mg/2 mL SDV IVP ×3 (06:25→20:48)
[2021-03-21] MEDS: sucralfate 1 gm Tablet PO ×4 (06:25→20:36)
--- NOTE | 2021-03-21 06:41 | PC.NURSE ---
Shift Note Frequent safety and comfort rounds continue. Orders and/or nursing care completed as indicated. Patient monitored for response to intervention and treatment(s). Education provided includes treatment plan. Patient verbalized understanding of teaching. Patient remains alert and oriented x4, on 3LNC, with pain in legs. Zurita catheter drained 1950 mls of bright yellow urine overnight. Bilateral legs have 3+ pitting edema, right ankle has redness with a skin ulcer-open to air, and left arm has a skin tear-open to air. No other wounds/skin issues noted at this time. Will continue to monitor.
[2021-03-21] MEDS: apixaban 5 mg Tablet 2.5 MG PO (08:57)
[2021-03-21] MEDS: levothyroxine 175 mcg Tablet PO (08:58)
[2021-03-21] MEDS: pantoprazole DR 40 mg Tablet PO (08:58)
[2021-03-21] MEDS: metoprolol tartrate 25 mg Tablet PO ×3 (08:58→20:36)
[2021-03-21] MEDS: oxybutynin chloride XL 5 MG TABLET 10 MG PO (08:58)
[2021-03-21] MEDS: duloxetine 60 mg Capsule PO (08:58)
[2021-03-21] MEDS: potassium chloride oral liq 20 mEq/15 mL UDC 40 MEQ PO (09:38)
[2021-03-21] MEDS: magnesium sulfate premix 2 GM/50 ML PIGGYBACK IV (09:38)
--- NOTE | 2021-03-21 10:05 | P.PN_ITS ---
Subjective Subjective: Interval history: Seem this AM. Patient reports some nausea. BP in normal range overnight with one episode of 116/102. HR 130-140's. She is complaining of palpitations. Otherwise feels ok. Is interested in potential cardioversion and would like to discuss with Dr. Sellers (he is her change management director). Also requesting miripex, gabapentin and duloxetine to be restarted. Vitals/I&O/Wt Last Vital Signs Temp 97.5 F L 03/21/21 04:00 Pulse 128 H 03/21/21 07:30 Resp 18 03/21/21 07:30 BP 135/91 03/21/21 07:30 Pulse Ox 97 03/21/21 07:30 03/20/21 03/21/21 03/21/21 22:59 06:59 14:59 Intake Total 250 / 1230.000 400 / 1630.000 Output Total 700 / 700 1950 / 2650 Balance -450 / 530.000 -1550 / -1020.000 Weight last 48 hrs Weight 161.649 kg Physical Exam Narrative: EXAM NARRATIVE: General: Alert oriented x3, patient seen sitting up in bed saturating 95% on 3L NC HEENT: Normocephalic, atraumatic, EOMI, breathing comfortably, no respiratory distress no acute distress. Large neck Cardio: Irregularly irregular,tachycardic normal S1-S2, no gross murmurs, Respiratory: Good bilateral air entry, no wheezes no rhonchi appreciated GI: Abdomen soft, obese rounded abdomen, nondistended, bowel sounds positive Behavior: Appropriate and cooperative Extremities: Pulses 2+, 2+ pitting edema bilateral lower extremities. There is also a blister by right Achilles tendon area oozing yellowish pus. Urinary Catheter Management^: Zurita: Cath Placed During This Visit: yes Reason for Continuing Indwelling Catheter: Accurate Measurement of Urinary Output in Critically Ill Patients Urinary Catheter Date of Insertion: 03/18/21 Urinary Catheter Time of Insertion: 22:24 Data : 03/21/21 04:22 03/21/21 04:22 A&P Assessment and plan (1) Acute worsening of stage 3 chronic kidney disease: Status: Acute (2) Nausea & vomiting: Status: Acute (3) Atrial fibrillation with rapid ventricular response: Status: Acute (4) RODRIGUE (acute kidney injury): Status: Acute (5) Pulmonary hypertension: Status: Acute (6) Dyspnea: Status: Acute Qualifiers: Dyspnea type: dyspnea on exertion Qualified Code(s): R06.00 - Dyspnea, unspecified (7) Obstructive sleep apnea: Status: Acute (8) Type 2 diabetes mellitus with other diabetic kidney complication: Status: Acute (9) Pituitary macroadenoma with extrasellar extension: Status: Acute (10) Central hypothyroidism: Status: Acute (11) Benign essential hypertension with target blood pressure below 140/90: Status: Acute (12) CHF (congestive heart failure): Status: Acute Qualifiers: Heart failure type: unspecified Heart failure chronicity: acute Qualified Code(s): I50.9 - Heart failure, unspecified (13) Obesity: Status: Acute (14) Adrenal insufficiency: Status: Acute (15) Chronic back pain: Status: Chronic (16) Anasarca: Status: Acute Additional A&P Information #Panhypopituatarism #Adrenal Insufficiency #Pulmonary Hypertension - suspicion #Nausea/Vomitting #RODRIGUE on CKD 3 # KP #Generalized anasarca #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 She is currently on Solu-Cortef 30 mg in the morning and 10 mg at nighttime. She required Cardizem 20 IV push and Cardizem drip initially when she presented to the hospital for atrial fibrillation and then was also placed on a heparin drip. She briefly required Levophed due to soft blood pressures. She did get 1 dose of stress dose steroids in the ER Solu-Cortef 100 mg IV. Levophed has been weaned off at this point. Blood pressures are still borderline low. Nausea vomiting has resolved. All her records have been reviewed from previous visits with pulmonology and endocrinology. Patient was recommended a right heart catheterization to evaluate for ventricular end-diastolic pressure as well as evidence of constrictive pericarditis by pulmonology at her most recent visit in January.. She is also been set up with CPAP at nighttime which she is not wearing at this time since the machine is not working. Pulmonary hypertension also needs to be ruled out at this point. She is requiring 3 L nasal cannula at rest. She is a non-smoker nondrinker. During this hospital stay she has had low blood pressures. TSH was 2.0. But due to central hypopituitarism we will check free T4. If low versus high will adjust dosages for Synthroid. Patient will require outpatient follow-up with pulmonology, cardiology and endocrino logy. -Today's plan 03/21. ?Patient still in atrial fibrillation and has had episodes of RVR overnight as well as a day. She is currently on Lopressor 25 twice daily. I will increase to metoprolol 50 BID and give 1x lopressor 5 IV. Continue hydrocortisone 100 TID for now. May descalate to 50 TID by afternoon pending hemodynamics. Will eventually transition her back to maintenance dose.Will discuss with Dr. Sellers in AM regarding potential VISHAL/cardioversion. Continue eliquis renally dosed. (CHADSVASC 3) - Continue CPAP at night. - She will probably need home oxygen at discharge. Will order home O2 evaluation at discharge as well. - Has mild nausea. Will order zofran. ?Denies diarrhea or constipation ?She does have an ulcer on posterior aspect of Achilles tendon on right foot. I will order wound care. I will plan to do doxycycline 100 twice daily for that. Limited with choice of antibiotics since patient has a number of allergies. -Creatinine is improved to 1.7. It was 3.7 on admission. Most likely secondary to dehydration. We will continue to monitor. Will avoid nephrotoxic medications. - Restart gabapentin, duloxetine and mirapex. -We will order iron studies for patient's anemia. RDW also high have suspicion of iron deficiency. Studies are pending. -Check free T4. its normal range. No need of dose adjustment. Did briefly discuss case with patient's outpatient plant maintenance worker over the phone. RN updated. Plan discussed in detail with the patient. Full code DVT prophylaxis on Eliquis now. We will keep another night in the ICU today Attestations Medical Necessity Statement*: > 48 hour stay Coding Level of Care Code Acute Circus Trainer for Chg Fwd Diagnoses Acute worsening of stage 3 chronic kidney disease N18.30 Nausea & vomiting R11.2 Atrial fibrillation with rapid ventricular response I48.91 RODRIGUE (acute kidney injury) N17.9 Pulmonary hypertension I27.20 Dyspnea R06.00 Dyspnea type: dyspnea on exertion Obstructive sleep apnea G47.33 Type 2 diabetes mellitus with other diabetic kidney complication E11.29 Pituitary macroadenoma with extrasellar extension D35.2 Central hypothyroidism E03.8 Benign essential hypertension with target blood pressure below 140/90 I10 CHF (congestive heart failure) I50.9 Heart failure type: unspecified Heart failure chronicity: acute Obesity E66.9 Adrenal insufficiency E27.40 Chronic back pain M54.9; G89.29 Anasarca R60.1
--- NOTE | 2021-03-21 10:06 | PC.SOCIAL ---
IM follow up explained and copy provided. Patient verbalized understanding.
[2021-03-21] MEDS: metoprolol tartrate 1 mg/1 mL SDV 5 mL 5 MG IVP (10:42)
[2021-03-21] MEDS: FUROsemide 10 mg/mL SDV 2mL 20 MG IVP (11:49)
--- NOTE | 2021-03-21 13:16 | PC.NURSE ---
Contact Patient asked for son, Giovani Alexander, to placed on contact list.
[2021-03-21] MEDS: hydrocortisone 1% cream 28 gm 1 APPLIC TOPICAL ×2 (14:50→20:52)
--- NOTE | 2021-03-21 15:32 | P.CONIM_ITS ---
Providers/Reason For Consult Consulting Physician/Specialty*: Dr. Leavitt, Cardiology Reason for Consult*: A. 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 She came to ER with episodes of nausea and vomiting and poor oral intake for the past few days. She was found to be in atrial fibrillation with rapid ventricular response. Labs showed : BUN 32, creatinine of 3.7 that has since improved. I have been asked to evaluate the patient for poorly controlled and newly diagnosed A. fib with RVR. She is o metoprolol tartrate 25 mg BID and additional 25 mg POx 1 and metoprolol 5 mg IV x 1 dropped her BP to 80's. 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 No EKG's prior to the visit that I see show any A. fibrillation. She complains of heart racing and SOB with intermittent Chest pains. Review of Systems General: Reports: 10 or more systems reviewed and unremarkable except in HPI and below Meds/Allergies Home Medications and Allergies Home Medications Medication Instructions Recorded Confirmed Last Taken Type epinephrine 0.3 mg/0.3 mL 0.3 mg IM Q10M PRN #2 ea 04/20/20 03/19/21 Unknown Rx injection, auto-injector clotrimazole-betamethasone 1 1 applic TOPICAL BID 28 Days #45 g 11/11/20 03/19/21 01/17/21 Rx %-0.05 % topical cream cetirizine 10 mg tablet 10 mg PO QAM tab 01/04/21 03/19/21 02/11/21 History duloxetine 30 mg capsule,delayed 60 mg PO BEDTIME cap 01/04/21 03/19/21 02/10/21 History release Immune Vitamin C 1 tab PO DAILY 01/19/21 03/19/21 02/11/21 History Ozempic 1 mg SUBCUT Q7D 01/19/21 03/19/21 02/07/21 History levothyroxine 175 mcg PO QAM 01/19/21 03/19/21 02/11/21 History oxybutynin chloride 10 mg PO QAM 01/19/21 03/19/21 02/11/21 History diabetic supplies, miscellan. #1 ea 01/21/21 03/19/21 Unknown Rx flash glucose scanning reader #1 ea 01/21/21 03/19/21 Unknown Rx omeprazole 40 mg PO DAILY@0600 01/26/21 03/19/21 02/11/21 History miscellaneous medical supply #1 ea 02/05/21 03/19/21 Unknown Rx clonidine HCl 0.1 mg PO BID PRN 02/11/21 03/19/21 Unknown History pramipexole 0.25 mg PO BEDTIME 02/13/21 03/19/21 02/10/21 21:00 History allopurinol 100 mg tablet 100 mg PO DAILY PRN #30 tab 02/26/21 03/19/21 Unknown Rx gabapentin 300 mg PO BEDTIME@199902/28/21 03/19/21 Unknown History hydrocortisone See Rx Instructions .ROUTE .COMPLEX 02/28/21 03/19/21 Unknown History flash glucose sensor #1 ea 03/01/21 03/19/21 Unknown Rx blood sugar diagnostic #50 ea 03/04/21 03/19/21 Unknown Rx blood-glucose meter,continuous #1 ea 03/04/21 03/19/21 Unknown Rx lancets 30 gauge #100 ea 03/04/21 03/19/21 Unknown Rx bumetanide 2 mg PO DAILY #60 tab 03/09/21 03/19/21 Unknown Rx doxycycline monohydrate 100 mg PO BID #10 tab 03/09/21 03/19/21 Unknown Rx losartan 25 mg PO DAILY #15 tab 03/09/21 03/19/21 Unknown Rx metolazone 2.5 mg PO DAILY #30 tab 03/09/21 03/19/21 Unknown Rx polyethylene glycol 3350 17 g PO BID #60 ea 03/09/21 03/19/21 Unknown Rx sennosides-docusate sodium [Stool 2 tab PO BID #120 tab 03/09/21 03/19/21 Unknown Rx Softener-Laxative] spironolactone 12.5 mg PO DAILY #15 tab 03/09/21 03/19/21 Unknown Rx sucralfate 1 g PO AC&BEDTIME #120 tab 03/09/21 03/19/21 Unknown Rx fluconazole 150 mg PO DAILY@0800 03/19/21 03/19/21 Unknown History ondansetron HCl [Zofran] 4 mg PO Q6H PRN 03/19/21 03/19/21 Unknown History potassium chloride 20 meq PO DAILY 03/19/21 03/19/21 Unknown History Allergies Allergy/AdvReac Type Severity Reaction Status Date / Time acetaminophen [From Tylenol] Allergy ALGY-Hives Verified 02/11/21 12:56 azithromycin Allergy ALGY-Anaphy Verified 02/11/21 12:56 laxis benzocaine Allergy ALGY-Hives Verified 02/11/21 12:56 butamben [From Cetacaine] Allergy ALGY-Swell Verified 02/11/21 12:56 Lip/Tongue/Throat codeine Allergy ALGY-Hives Verified 02/11/21 12:56 fentanyl Allergy ALGY-Anaphy Verified 02/11/21 12:56 laxis hydrocodone [From Vicodin] Allergy ALGY-Hives Verified 02/11/21 12:56 hydromorphone [From Dilaudid] Allergy ADR-Vomitin Verified 02/11/21 12:56 g Iodinated Contrast Media Allergy ALGY-Anaphy Verified 02/11/21 12:56 laxis liothyronine Allergy ADR-Nausea Verified 02/11/21 12:56 meperidine [From Demerol] Allergy Unknown Verified 02/11/21 12:56 morphine Allergy ALGY-Anaphy Verified 02/11/21 12:56 laxis nitrofurantoin Allergy ALGY-Joint Verified 02/11/21 12:56 [From Macrobid] Pain oxycodone [From Percocet] Allergy ALGY-Hives Verified 02/11/21 12:56 penicillin V Allergy ALGY-Hives Verified 02/11/21 12:56 Penicillins Allergy Unknown Verified 02/11/21 12:56 Phenothiazines Allergy ALGY-Anaphy Verified 02/11/21 12:56 laxis pregabalin [From Lyrica] Allergy ADV-Weaknes Verified 02/11/21 12:56 s procaine Allergy ALGY-Hives Verified 02/11/21 12:56 prochlorperazine Allergy ALGY-Anaphy Verified 02/11/21 12:56 [From Compazine] laxis Sulfa (Sulfonamide Allergy Unknown Verified 02/11/21 12:56 Antibiotics) tetracaine [From Cetacaine] Allergy ALGY-Swell Verified 02/11/21 12:56 Lip/Tongue/Throat Current Medications Current Medications Generic Name Dose Route Start Last Admin Trade Name Freq PRN Reason Stop Dose Admin Alprazolam 0.5 mg 03/20/21 23:45 03/20/21 23:59 Alprazolam 0.5 Mg Tablet PO 0.5 mg TID PRN Administration anxiety Apixaban 2.5 mg 03/21/21 09:00 03/21/21 08:57 Apixaban 5 Mg Tablet PO 2.5 mg BID@0900,2100 RAMIRO Administration Duloxetine HCl 60 mg 03/20/21 22:30 03/21/21 08:58 Duloxetine 60 Mg Capsule PO 60 mg DAILY RAMIRO Administration Hydrocortisone 30 mg 03/19/21 09:00 03/20/21 08:22 Hydrocortisone 10 Mg Tablet PO 30 mg DAILY RAMIRO Administration Hydrocortisone 10 mg 03/19/21 21:00 03/19/21 20:39 Hydrocortisone 10 Mg Tablet PO 10 mg BEDTIME RAMIRO Administration Hydrocortisone 1 applic 03/20/21 13:01 03/21/21 14:50 Hydrocortisone 1% Cream 28 Gm TOPICAL 1 applic QID PRN Administration ITCHING Hydrocortisone Sodium Succinate 100 mg 03/21/21 14:00 03/21/21 14:38 Hydrocortisone 100 Mg/2 Ml Sdv IVP 100 mg Q8H RAMIRO Administration Norepinephrine Bitartrate 4 mg 254 mls @ 0 mls/hr 03/19/21 02:00 03/20/21 16:00 / Dextrose IV Infused .Q0M RAMIRO Titration Protocol Per Protocol Levothyroxine Sodium 175 mcg 03/19/21 09:00 03/21/21 08:58 Levothyroxine 175 Mcg Tablet PO 175 mcg DAILY RAMIRO Administration Metoprolol Tartrate 25 mg 03/19/21 21:00 03/21/21 08:58 Metoprolol Tartrate 25 Mg Tablet PO 25 mg BID@0900,2100 RAMIRO Administration Ondansetron HCl 4 mg 03/19/21 02:27 03/20/21 12:04 Ondansetron 2 Mg/Ml Sdv 2 Ml IVP 4 mg Q6H PRN Administration NAUSEA AND VOMITING Oxybutynin Chloride 10 mg 03/19/21 09:00 03/21/21 08:58 Oxybutynin Chloride Xl 5 Mg Tablet PO 10 mg DAILY RAMIRO Administration Pantoprazole Sodium 40 mg 03/19/21 09:00 03/21/21 08:[address] 40 Mg Tablet PO 40 mg DAILY RAMIRO Administration Polyethylene Glycol 17 gm 03/21/21 09:00 03/21/21 09:01 Polyethylene Glycol 3350 Pkt 17 Gm PO Not Given BID RAMIRO Sucralfate 1 gm 03/19/21 07:00 03/21/21 10:41 Sucralfate 1 Gm Tablet PO 1 gm AC&BEDTIME RAMIRO Administration PFSH Acute PFSH: Medical History Adrenal insufficiency Anasarca Benign essential hypertension with target blood pressure below 140/90 Central hypothyroidism CHF (congestive heart failure) Chronic back pain Follows at pain clinic for periodic injections COVID-19 (~09/2020) Edema Facet arthritis, degenerative, lumbar spine History of anaphylaxis History of atrial fibrillation Intermittent, has not required long-term anticoagulation or focused treatment History of COVID-19 HTN (hypertension) Hyperaldosteronism 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 Current gender identity: Female Female Reproductive History: Date of last menstrual period: 01/22/21 Vitals/I&O/Wt Last Vital Signs Temp 97.5 F L 03/21/21 04:00 Pulse 109 H 03/21/21 14:40 Resp 22 H 03/21/21 14:00 BP 91/59 03/21/21 14:00 Pulse Ox 92 03/21/21 14:40 03/21/21 03/21/21 03/21/21 06:59 14:59 22:59 Intake Total 400 / 1630.000 530 / 530 Output Total 1950 / 2650 700 / 700 Balance -1550 / -1020.000 -170 / -170 Weight last 48 hrs Weight 356 lb 6 oz Physical Exam Narrative: EXAM NARRATIVE: Gen: morbidly obese woman in NAD Neck: short, No JVD appreciated RS: CTA B/L, decreased breath sounds at bases CVS: S1, S2 of variable intensity, tachycardia+ Ext: 1+ bilateral leg edema PA: soft, obese, NT/ND 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 fib with RVR -start on amiodarone and Eliquis -continue metoprolol 25 mg BID -f/u on limited echo once HR better controlled. -will consider VISHAL/CV if she remains uncontrolled. Status: Acute (2) Acute worsening of stage 3 chronic kidney disease: Status: Acute (3) CHF (congestive heart failure): Diuretics held with worsening renal function on presentation -Creatinine has improved. Status: Acute Qualifiers: Heart failure chronicity: acute Heart failure type: unspecified Qualified Code(s): I50.9 - Heart failure, unspecified Additional A&P Information Morbid obesity KP/OHS Type 2 DM Adrenal insuffieciency Thank you for allowing me to participate in patient's care. Please feel free to call with questions or concerns Consult Attestations Time Spent in Patient Care: 16 - 35 minutes (>than 50% of time spent in counselling and/or direct pt care on unit) . Coding Level of Care Code Acute Software Developer Manager for Duarte Molina Diagnoses Atrial fibrillation with rapid ventricular response I48.91 Acute worsening of stage 3 chronic kidney disease N18.30 CHF (congestive heart failure) I50.9 Heart failure chronicity: acute Heart failure type: unspecified
[2021-03-21] MEDS: polyethylene glycol 3350 Pkt 17 gm PO (17:32)
[2021-03-21] MEDS: doxycycline 100 mg Tablet PO (17:32)
[2021-03-21] MEDS: amiodarone 200 mg Tablet 400 MG PO (17:32)
[2021-03-21] MEDS: apixaban 5 mg Tablet PO (17:33)
[2021-03-21] MEDS: gabapentin 300 mg Capsule PO (20:36)
[2021-03-21] MEDS: pramipexole 0.25 mg Tablet PO (20:48)
[2021-03-22] VITALS (42 sets, daily range): BP systolic 73–144; BP diastolic 36–97; PULSE 85–152; RESP 15–29; TEMP 36.4–37.1; O2SAT 86–98; BMI 59.9
[2021-03-22 04:14] LABS: Basophils % 0.2 %; Eosinophils % 0.1 %; Hematocrit 31.7 % (37.0-47.0); Hemoglobin 9.3 g/dL (11.5-15.3); Lymphocytes # 0.9 10^3/uL (0.8-4.8); Mean Corpuscular HGB Conc 29.3 g/dL (30.0-36.0); Mean Corpuscular Hemoglobin 22.9 pg (28.0-34.0); Mean Corpuscular Volume 78.1 fl (81-99); Mean Platelet Volume 9.6 fL (7.4-10.4); Monocytes # 0.9 10^3/uL (0.2-0.9); Monocytes % 6.7 %; Neutrophils # 10.71 10^3/uL (1.8-7.7); Neutrophils % 83.2 %; Nucleated Red Blood Cells % 0 %; Platelet Count 323 10^3/cmm (130-400); Red Blood Count 4.06 10^6/uL (4.1-5.3); White Blood Count 12.9 10^3/uL (4.0-10.0)
[2021-03-22 04:42] LABS: Anion Gap 15.9 (5-19); Blood Urea Nitrogen 19 mg/dL (8-23); Calcium 8.5 mg/dL (8.5-10.5); Carbon Dioxide 28 mmol/L (22-29); Chloride 98 mmol/L (98-107); Glomerular Filtration Rate 32.1 mL/min (90-130); Glucose 163 mg/dL (65-115); Magnesium 1.9 mg/dL (1.7-2.3); Osmolality Calculated 294 mOsm/kg (285-295); Sodium 139 mmol/L (136-145)
[2021-03-22 05:11] LABS: Potassium 2.9 mmol/L (3.5-5.1)
[2021-03-22] MEDS: sucralfate 1 gm Tablet PO ×4 (06:04→21:55)
[2021-03-22] MEDS: potassium chloride ER 20 mEq Tablet 40 MEQ PO (06:04)
[2021-03-22] MEDS: hydrocortisone 100 mg/2 mL SDV IVP ×3 (06:05→21:56)
--- NOTE | 2021-03-22 06:28 | PC.NURSE ---
Shift Note Frequent safety and comfort rounds continue. Orders and/or nursing care completed as indicated. Patient monitored for response to intervention and treatment(s). Education provided includes procedures and treatment plan. Patient verbalized understanding of teaching. Patient remains alert and oriented x4, on 3LNC. Zurita catheter drained 580 mls of urine overnight. No complaints of pain. Will continue to monitor.
[2021-03-22] MEDS: hydrocortisone 1% cream 28 gm 1 APPLIC TOPICAL (08:35)
[2021-03-22] MEDS: potassium chloride oral liq 20 mEq/15 mL UDC 40 MEQ PO (09:23)
[2021-03-22] MEDS: doxycycline 100 mg Tablet PO ×2 (09:23→17:35)
[2021-03-22] MEDS: pantoprazole DR 40 mg Tablet PO (09:26)
[2021-03-22] MEDS: levothyroxine 175 mcg Tablet PO (09:26)
[2021-03-22] MEDS: apixaban 5 mg Tablet PO ×2 (09:26→17:35)
[2021-03-22] MEDS: amiodarone 200 mg Tablet 400 MG PO ×2 (09:26→17:35)
[2021-03-22] MEDS: metoprolol tartrate 25 mg Tablet PO ×2 (09:26→21:55)
[2021-03-22] MEDS: duloxetine 60 mg Capsule PO (09:26)
[2021-03-22] MEDS: oxybutynin chloride XL 5 MG TABLET 10 MG PO (10:00)
--- NOTE | 2021-03-22 10:04 | PC.CHAP ---
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 vessel traffic officer visit [] Patient/Family/Request visit [] Outpatient visit [] Follow-up visit [] Physician referral [] Code/Alert [x] Routine visit [] Staff referral [] Actively dying [] Patient sleeping [x] Family support [] [] Out of room [] Palliative care [] [] Receiving care in room [] Pre-surgical visit [] Trauma [] Long length of stay [x] ICU visit [x] Other: in and out of hospital for weeks Relational/Emotional Strength [] Patient feels connected with others/family/visitors/staff [] Distress [] Loneliness/isolation [] Abandonment Spirituality of Patient [] Person of Minoo [] Attends Religion of their [place] [] Believes in Prayer [] Reads Bible or Denominational materials [] There are Spiritual issues to be addressed Reservation Manager Interventions [x] Prayer [x] Active listening [x] Non-anxious presence [x] Spiritual/emotional support [] Crisis/trauma care [] Spiritual counseling [] Bereavement support [] Provided bereavement packet [] Provided Bible/devotional materials [] Provided toy/stuffed animal, coloring book to patient or family member [] Provided Communion [] Anointing/R[place]y [] Salvation [x] Completed spiritual assessment [] Other: Impact on Illness or Injury [] Angry [] Fearful [] Anxious [] Often cries [] Exhaustion [] Unable to work [] Unable to attend roman catholic [] Unable to walk/stand [] Unable to read [] Unable to drive [] Unable to eat/drink [] Unable to sleep [] Unable to be with family [] Patient intubated [] Other: Summary still working are getting well... one thing then another... Time spent with patient 10 min
--- NOTE | 2021-03-22 14:26 | P.PN_ITS ---
Subjective Subjective: Interval history: The patient reports feeling better today. Her nausea and vomiting have resolved. Denies chest pain, palpitations, shortness of breath. No diarrhea. No fever or chills. Vitals/I&O/Wt Last Vital Signs Temp 98.5 F 03/22/21 07:30 Pulse 111 H 03/22/21 13:52 Resp 19 H 03/22/21 10:30 BP 116/72 03/22/21 10:30 Pulse Ox 96 03/22/21 10:30 03/21/21 03/22/21 03/22/21 22:59 06:59 14:59 Intake Total 240 / 770 400 / 400 Output Total 900 / 1600 580 / 2180 Balance -660 / -830 -580 / -1410 400 / 400 Weight last 48 hrs Weight 163.378 kg Weight 161.649 kg Physical Exam Narrative: EXAM NARRATIVE: Awake alert oriented x3. No acute distress. Mood and affect are appropriate. Responses are adequate. Skin is warm and dry. Moist mucous memories Neck supple. No JVD Eyes PERRL, extraocular muscles are intact Heart S1, S2, irregular Abdomen is soft, obese, nontender, bowel sounds are present Lungs. Mildly decreased breath sounds bibasilarly. No crackles or wheezes. Extremities. Chronic venous stasis changes. Bilateral edema. 2 superficial wounds in the left lower extremity just above the ankle. No surrounding hyperemia or swelling. No discharge.. No peripheral cyanosis. Urinary Catheter Management^: Zurita: Cath Placed During This Visit: yes Reason for Continuing Indwelling Catheter: Accurate Measurement of Urinary Output in Critically Ill Patients Urinary Catheter Date of Insertion: 03/18/21 Urinary Catheter Time of Insertion: 22:24 Data : 03/22/21 02:25 03/22/21 02:25 Other Labs: Laboratory Results WBC 12.9 10^3/uL (4.0-10.0) H 03/22/21 02:25 RBC 4.06 10^6/uL (4.1-5.3) L 03/22/21 02:25 Hgb 9.3 g/dL (11.5-15.3) L 03/22/21 02:25 Hct 31.7 % (37.0-47.0) L 03/22/21 02:25 MCV 78.1 fl (81-99) L 03/22/21 02:25 MCH 22.9 pg (28.0-34.0) L 03/22/21 02:25 MCHC 29.3 g/dL (30.0-36.0) L 03/22/21 02:25 RDW 16.0 % (12.1-15.1) H 03/22/21 02:25 Plt Count 323 10^3/cmm (130-400) 03/22/21 02:25 MPV 9.6 fL (7.4-10.4) 03/22/21 02:25 Neut % (Auto) 83.2 % 03/22/21 02:25 Lymph % (Auto) 7.0 % 03/22/21 02:25 Wallace % (Auto) 6.7 % 03/22/21 02:25 Eos % (Auto) 0.1 % 03/22/21 02:25 Baso % (Auto) 0.2 % 03/22/21 02:25 Neut # (Auto) 10.71 10^3/uL (1.8-7.7) H 03/22/21 02:25 Lymph # (Auto) 0.9 10^3/uL (0.8-4.8) 03/22/21 02:25 Wallace # (Auto) 0.9 10^3/uL (0.2-0.9) 03/22/21 02:25 Eos # (Auto) 0.0 10^3/uL (0.0-0.8) 03/22/21 02:25 Baso # (Auto) 0.0 10^3/uL (0.0-0.1) 03/22/21 02:25 Nucleated RBC % (auto) 0 % 03/22/21 02:25 Nucleated RBCs # 0.0 /100WBC 03/22/21 02:25 APTT 38.8 SECONDS (23.9-36.7) H D 03/20/21 09:10 Sodium 139 mmol/L (136-145) 03/22/21 02:25 Potassium 2.9 mmol/L (3.5-5.1) L 03/22/21 02:25 Chloride 98 mmol/L (98-107) 03/22/21 02:25 Carbon Dioxide 28 mmol/L (22-29) 03/22/21 02:25 Anion Gap 15.9 (5-19) 03/22/21 02:25 BUN 19 mg/dL (8-23) 03/22/21 02:25 Creatinine 1.6 mg/dL (0.5-0.9) H 03/22/21 02:25 GFR Calculation 32.1 mL/min (90-130) L 03/22/21 02:25 Glucose 163 mg/dL (65-115) H 03/22/21 02:25 POC Glucose 75 mg/dL (70-110) 03/18/21 20:40 Calculated Osmolality 294 mOsm/kg (285-295) 03/22/21 02:25 Lactate 2.5 mmol/L (0.5-2.2) H 03/18/21 20:00 Calcium 8.5 mg/dL (8.5-10.5) 03/22/21 02:25 Magnesium 1.9 mg/dL (1.7-2.3) 03/22/21 02:25 Magnesium Cancelled 03/22/21 02:25 Iron 21 ug/dL (37-145) L 03/20/21 20:49 TIBC 224 mcg/dl 03/20/21 20:49 % Saturation 9.3 % (20-50) L 03/20/21 20:49 Unsat Iron Binding 203 ug/dL (112-347) 03/20/21 20:49 Ferritin 95 ng/mL (15-150) 03/20/21 20:49 Total Bilirubin 0.3 mg/dL (0.15-1.2) 03/20/21 03:10 AST 25 U/L (0-32) 03/20/21 03:10 ALT 14 U/L (0-33) 03/20/21 03:10 Alkaline Phosphatase 77 IU/L (35-105) 03/20/21 03:10 Troponin T Baseline 35 ng/L (0-10) H 03/18/21 19:20 Troponin T 120 Minute 37.43 ng/L (0-10) H 03/18/21 21:30 Delta Troponin T 2.43 ABS# (0-10) 03/18/21 21:30 Troponin T Hi Sens 6Hr 38.42 ng/L (0-10) H 03/19/21 01:28 Troponin T Hi Sens 6Hr Delta 3.42 ng/L (0-12) 03/19/21 01:28 C-Reactive Protein 66.1 mg/L (0.0-4.9) H 03/18/21 19:20 NT-Pro-B Natriuret Pep 277 pg/mL (0-125) H 03/18/21 19:20 Total Protein 6.0 g/dL (6.6-8.7) L 03/20/21 03:10 Albumin 3.2 g/dL (3.5-5.2) L 03/20/21 03:10 Globulin 2.8 g/dL (1.3-4.6) 03/20/21 03:10 Lipase 16 U/L (13-60) 03/18/21 19:20 Procalcitonin 0.16 ng/mL (0-0.5) 03/18/21 19:20 TSH 2.00 uIU/mL (0.27-4.20) 03/18/21 19:20 Free T4 1.36 ng/dL (0.82-1.77) 03/20/21 03:10 Urine Color Yellow (Yellow) 03/18/21 19:50 Urine Appearance Clear (CLEAR) 03/18/21 19:50 Urine pH 6.5 (5-7) 03/18/21 19:50 Ur Specific Sullivan 1.005 (1.005-1.030) 03/18/21 19:50 Urine Protein Neg (Negative) 03/18/21 19:50 Urine Glucose (UA) Norm (Normal) 03/18/21 19:50 Urine Ketones Negative (Negative) 03/18/21 19:50 Urine Blood Neg (Negative) 03/18/21 19:50 Urine Nitrate Negative (Negative) 03/18/21 19:50 Urine Bilirubin Neg (Negative) 03/18/21 19:50 Urine Urobilinogen Norm mg/dL (Negative) 03/18/21 19:50 Ur Leukocyte Esterase Negative (Negative) 03/18/21 19:50 Impressions Chest X-Ray 03/18/21 19:18 IMPRESSION: No acute finding. Chest/Abdomen/Pelvis CT 03/18/21 20:57 IMPRESSION: 1. No acute finding identified in the chest. IMPRESSION: 1. No acute finding identified in the abdomen or pelvis. 2. Fatty liver. A&P Additional A&P Information A. fib with RVR. Medications are adjusted by cardiology. Appreciate input. Cu rrently the heart rate is still elevated. Cardioversion is being considered. CHF acute exacerbation with normal EF. Probably due to #1. Continue Lasix and management of the A. fib. RODRIGUE on top of chronic kidney disease. Improving renal function. Continue monitoring. Avoid nephrotoxic medications. Anemia. Stable. Continue monitoring. Chronic pain. Currently well controlled. Continue current management. Diabetes. Continue current management. History of adrenal insufficiency. Well-controlled. Continuing current dose of steroids and Synthroid. Infected foot ulcers. Doxycycline is initiated. The infection seems to be under control. We will continue wound care. Hypertension. Well-controlled. Continue current management. DVT prophylaxis. On Eliquis. The plan of care was discussed with the patient. She verbalized understanding and agreement. Discussed with the multidisciplinary team. Attestations Medical Necessity Statement*: Continue current management for A. fib with RVR. Requires adjustments of the medications. Coding Level of Care Code Acute City Maintenance Manager for Duarte Molina
[2021-03-22] MEDS: polyethylene glycol 3350 Pkt 17 gm PO (17:33)
[2021-03-22] MEDS: digoxin 250 mcg/ml INJ 2 mL 500 MCG IVP (18:36)
--- NOTE | 2021-03-22 19:13 | PC.NURSE ---
Shift Note Pt remains in A-fib or A flutter. Her heart rate has been 80's to 154 today, 154 was when she was up in room transferring from bed to chair. She says she feels terrible and she is tired of this. She remains of 3lpm/NC. She was admin 500mcg of Digoxin this evening, no conversion to sinus rhythm noted yet. She is non-compliant with Cardiac diet. Urine has gotten cloudy with sediment this shift. it has a strong odor. 350ml output noted. Dr Sellers in to see pt this evening, Cardioversion and VISHAL in am. with general anesthesia. Frequent safety and comfort rounds continue. Orders and/or nursing care completed as indicated. Patient monitored for response to intervention and treatment(s). Education provided includes plan of care, digoxin, cardioversion, VISHAL and ablation. 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 Will continue to monitor.
--- NOTE | 2021-03-22 20:28 | PM.PN ---
Subjective Subjective: Interval history: Patient admitted to hospital with nausea, vomiting, multiple electrolyte abnormalities and new onset atrial fibrillation. Patient continues to be in atrial fibrillation with rapid ventricular rate. She has a fluttery feeling in the chest. No dizziness or syncopal episode. The blood pressure seems to be stable. Denies any significant chest pain. Medications: Reviewed: Yes Medication Review Details: Current Medications Alprazolam (Alprazolam 0.5 Mg Tablet) 0.5 mg PO TID PRN PRN Reason: anxiety Last Admin: 03/20/21 23:59 Dose: 0.5 mg Documented by: Amiodarone HCl (Amiodarone 200 Mg Tablet) 400 mg PO BID [facility] Last Admin: 03/22/21 17:35 Dose: 400 mg Documented by: Apixaban (Apixaban 5 Mg Tablet) 5 mg PO BID [facility] Last Admin: 03/22/21 17:35 Dose: 5 mg Documented by: Doxycycline Monohydrate (Doxycycline 100 Mg Tablet) 100 mg PO BID [facility]; Protocol Last Admin: 03/22/21 17:35 Dose: 100 mg Documented by: Duloxetine HCl (Duloxetine 60 Mg Capsule) 60 mg PO DAILY [facility] Last Admin: 03/22/21 09:26 Dose: 60 mg Documented by: Gabapentin (Gabapentin 300 Mg Capsule) 300 mg PO BEDTIME@1999 [facility] Last Admin: 03/21/21 20:36 Dose: 300 mg Documented by: Hydrocortisone (Hydrocortisone 10 Mg Tablet) 30 mg PO DAILY [facility] Last Admin: 03/20/21 08:22 Dose: 30 mg Documented by: Hydrocortisone (Hydrocortisone 10 Mg Tablet) 10 mg PO BEDTIME [facility] Last Admin: 03/19/21 20:39 Dose: 10 mg Documented by: Hydrocortisone (Hydrocortisone 1% Cream 28 Gm) 1 applic TOPICAL QID PRN PRN Reason: ITCHING Last Admin: 03/21/21 20:52 Dose: 1 applic Documented by: Hydrocortisone Sodium Succinate (Hydrocortisone 100 Mg/2 Ml Sdv) 100 mg IVP Q8H [facility] Last Admin: 03/22/21 13:23 Dose: 100 mg Documented by: Norepinephrine Bitartrate 4 mg (/ Dextrose) 254 mls @ 0 mls/hr IV .Q0M [facility]; Protocol Last Titration: 03/20/21 16:00 Dose: Infused Documented by: Levothyroxine Sodium (Levothyroxine 175 Mcg Tablet) 175 mcg PO DAILY [facility] Last Admin: 03/22/21 09:26 Dose: 175 mcg Documented by: Metoprolol Tartrate (Metoprolol Tartrate 25 Mg Tablet) 25 mg PO BID@0900,2100 [facility] Last Admin: 03/22/21 09:26 Dose: 25 mg Documented by: Ondansetron HCl (Ondansetron 2 Mg/Ml Sdv 2 Ml) 4 mg IVP Q6H PRN PRN Reason: NAUSEA AND VOMITING Last Admin: 03/20/21 12:04 Dose: 4 mg Documented by: Ondansetron HCl (Ondansetron 4 Mg Tablet) 4 mg PO Q6H PRN PRN Reason: Nausea Oxybutynin Chloride (Oxybutynin Chloride Xl 5 Mg Tablet) 10 mg PO DAILY [facility] Last Admin: 03/22/21 10:00 Dose: 10 mg Documented by: Pantoprazole Sodium (Pantoprazole Dr 40 Mg Tablet) 40 mg PO DAILY [facility] Last Admin: 03/22/21 09:26 Dose: 40 mg Documented by: Polyethylene Glycol (Polyethylene Glycol 3350 Pkt 17 Gm) 17 gm PO BID [facility] Last Admin: 03/22/21 17:33 Dose: 17 gm Documented by: Pramipexole Dihydrochloride (Pramipexole 0.25 Mg Tablet) 0.25 mg PO BEDTIME [facility] Last Admin: 03/21/21 20:48 Dose: 0.25 mg Documented by: Sucralfate (Sucralfate 1 Gm Tablet) 1 gm PO AC&BEDTIME [facility] Last Admin: 03/22/21 17:33 Dose: 1 gm Documented by: Vitals/I&O/Wt Last Vital Signs Temp 97.8 F 03/22/21 15:30 Pulse 122 H 03/22/21 19:00 Resp 16 03/22/21 19:00 BP 116/79 03/22/21 19:00 Pulse Ox 98 03/22/21 19:00 03/22/21 03/22/21 03/22/21 06:59 14:59 22:59 Intake Total 400 / 400 1000 / 1400 Output Total 580 / 2180 350 / 350 Balance -580 / -1410 400 / 400 650 / 1050 Weight last 48 hrs Weight 360 lb 3 oz Weight 356 lb 6 oz Physical Exam Narrative: EXAM NARRATIVE: GENERAL: The patient is alert and oriented times three. Not in any acute distress. Morbidly obese HEENT: No significant pallor, icterus or lymphadenopathy.Oral cavity: There are no mucous membrane lesions. NECK: Trachea appears to be central. No masses noted. No JVD or thyromegaly appreciated. RESPIRATORY: Chest is symmetrical. No intercostals muscle retraction or any accessory muscle activation. There is no chest wall tenderness. Breath sounds are heard bilaterally. No rales or rhonchi heard. No evidence of any consolidation. The breath sounds are diminished in the bases. BREASTS: Deferred. HEART: The heart sounds are normal. No S3 or S4. No significant murmurs. No pericardial rub ABDOMEN: Abdomen is obese no vessel pulsations or distention. No tenderness. No organomegaly appreciated. Bowel sounds are normally heard. : Deferred. RECTAL: Deferred. LYMPHATIC: No lymphadenopathy noted in the neck or groin. EXTREMITIES: 1+ edema bilaterally in the lower extremities. MUSCULOSKELETAL: No acute joint deformities or swelling SKIN: There are no significant rashes or ecchymosis NEUROPSYCHIATRIC: The patient is alert and oriented x3. Appears to be in a good mood. No tremors or rigidity noted. Urinary Catheter Management^: Zurita: Cath Placed During This Visit: yes Reason for Continuing Indwelling Catheter: Accurate Measurement of Urinary Output in Critically Ill Patients Urinary Catheter Date of Insertion: 03/18/21 Urinary Catheter Time of Insertion: 22:24 Data : 03/23/21 03:32 03/23/21 03:32 A&P Assessment and plan (1) Atrial fibrillation with rapid ventricular response: Patient is on amiodarone and beta-isaiah. Apparently the heart rate remains uncontrolled. I may go ahead and give IV digoxin 0.5 mg now and see the response. I also will increase the dose of the metoprolol to 50 mg p.o. twice daily. If the patient continues to be in atrial fibrillation with rapid ventricular rate, we may consider a VISHAL cardioversion. Status: Acute (2) Pulmonary hypertension: May continue on the current measures. Status: Acute (3) Obstructive sleep apnea: Continue on the current measures Status: Acute (4) Chronic kidney disease, stage 3a: May continue on the current treatment measures Status: Acute (5) Type 2 diabetes mellitus with other diabetic kidney complication: May continue on the current treatment. Aggressive management of the hyperglycemia is 100 Status: Acute (6) Benign essential hypertension with target blood pressure below 140/90: We will try to optimize antihypertensive medications. Status: Acute (7) Hypokalemia: Patient was given some potassium supplement in the morning. 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
[2021-03-22 21:35] LABS: Anion Gap 15.4 (5-19); Blood Urea Nitrogen 22 mg/dL (8-23); Calcium 8.8 mg/dL (8.5-10.5); Carbon Dioxide 28 mmol/L (22-29); Chloride 95 mmol/L (98-107); Glomerular Filtration Rate 32.1 mL/min (90-130); Glucose 140 mg/dL (65-115); Osmolality Calculated 286 mOsm/kg (285-295); Potassium 3.4 mmol/L (3.5-5.1); Sodium 135 mmol/L (136-145)
[2021-03-22] MEDS: pramipexole 0.25 mg Tablet PO (21:55)
[2021-03-22] MEDS: gabapentin 300 mg Capsule PO (21:55)
--- NOTE | 2021-03-22 22:21 | ECG_ITS ---
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 Measurements Intervals [place] Rate: 94 P: [place]: QRS: -1 QRSD: 98 T: -33 QT: 339 QTc: 426 Interpretive Statements ATRIAL FIBRILLATION NONSPECIFIC ST & T-WAVE ABNORMALITY Compared to ECG 03/19/2021 01:57:27 T-wave abnormality now present ST (T wave) deviation no longer present Electronically Signed On 03-22-2021 22:29:31 RIDING DOUBLE by Jaki Leavitt M.D. [id number]
[2021-03-23] VITALS (33 sets, daily range): BP systolic 106–174; BP diastolic 59–114; PULSE 61–101; RESP 13–26; TEMP 36.3–36.8; O2SAT 75–100; BMI 59.9
[2021-03-23] MEDS: potassium chloride ER 20 mEq Tablet PO ×2 (03:24→06:34)
[2021-03-23 04:43] LABS: Platelet Count 293 10^3/cmm (130-400)
[2021-03-23 05:14] LABS: Magnesium 1.9 mg/dL (1.7-2.3)
[2021-03-23 05:16] LABS: Albumin Level 3.3 g/dL (3.5-5.2); Blood Urea Nitrogen 25 mg/dL (8-23); Calcium 8.7 mg/dL (8.5-10.5); Carbon Dioxide 24 mmol/L (22-29); Chloride 98 mmol/L (98-107); Glomerular Filtration Rate 29.9 mL/min (90-130); Glucose 152 mg/dL (65-115); Phosphorus 2.9 mg/dL (2.5-4.5); Sodium 138 mmol/L (136-145)
--- NOTE | 2021-03-23 05:22 | PC.NURSE ---
Shift Note Frequent safety and comfort rounds continue. Orders and/or nursing care completed as indicated. Patient monitored for response to intervention and treatment(s). Education provided includes VISHAL and atrial rhythms. Patient verbalized understanding of teaching. Patient remains in a-fib, on 3LNC, and is alert/oriented x4. Received bed bath this morning. Patient had no complaints of pain overnight. Zurita catheter drained 500 mls of bright yellow urine all evening. Will continue to monitor.
[2021-03-23 06:23] LABS: Anion Gap 19.7 (5-19); Potassium 3.7 mmol/L (3.5-5.1)
[2021-03-23] MEDS: sucralfate 1 gm Tablet PO ×4 (06:34→22:09)
[2021-03-23] MEDS: hydrocortisone 100 mg/2 mL SDV IVP (06:34)
--- NOTE | 2021-03-23 07:48 | ECG_ITS ---
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 Measurements Intervals [place] Rate: 73 P: 49 SD: 155 QRS: 0 QRSD: 97 T: 21 QT: 379 QTc: 418 Interpretive Statements SINUS RHYTHM WITH OCCASIONAL SUPRAVENTRICULAR PREMATURE COMPLEXES Nonspecific ST-T change Compared to ECG 03/22/2021 22:24:02 Atrial fibrillation no longer present T-wave abnormality no longer present Electronically Signed On 03-23-2021 23:59:46 ROAD ROLLER OPERATOR by Chris Sellers M.D. [id number]
[2021-03-23] MEDS: oxybutynin chloride XL 5 MG TABLET 10 MG PO (08:23)
[2021-03-23] MEDS: levothyroxine 175 mcg Tablet PO (08:23)
[2021-03-23] MEDS: pantoprazole DR 40 mg Tablet PO (08:24)
[2021-03-23] MEDS: apixaban 5 mg Tablet PO ×2 (08:24→17:50)
[2021-03-23] MEDS: amiodarone 200 mg Tablet 400 MG PO ×2 (08:24→17:50)
[2021-03-23] MEDS: metoprolol tartrate 25 mg Tablet 50 MG PO ×2 (08:24→22:08)
[2021-03-23] MEDS: duloxetine 60 mg Capsule PO (08:25)
[2021-03-23] MEDS: doxycycline 100 mg Tablet PO ×2 (08:25→17:50)
[2021-03-23] MEDS: hydrocortisone 1% cream 28 gm 1 APPLIC TOPICAL (09:54)
--- NOTE | 2021-03-23 09:58 | PC.SOCIAL ---
IMM Updated Updated pt on IMM. No questions voiced. Provided pt a copy. Initialed, dated, & timed copy in chart.
--- NOTE | 2021-03-23 10:03 | P.PN_ITS ---
Subjective Subjective: Interval history: Patient spontaneously converted to sinus rhythm today. Her heart rate is currently 68 bpm. The blood pressure is a stage II. No chest pain or shortness of breath. She has a baseline shortness of breath with activities. Medications: Reviewed: Yes Medication Review Details: Current Medications Alprazolam (Alprazolam 0.5 Mg Tablet) 0.5 mg PO TID PRN PRN Reason: anxiety Last Admin: 03/20/21 23:59 Dose: 0.5 mg Documented by: Amiodarone HCl (Amiodarone 200 Mg Tablet) 400 mg PO BID [facility] Last Admin: 03/23/21 08:24 Dose: 400 mg Documented by: Apixaban (Apixaban 5 Mg Tablet) 5 mg PO BID [facility] Last Admin: 03/23/21 08:24 Dose: 5 mg Documented by: Doxycycline Monohydrate (Doxycycline 100 Mg Tablet) 100 mg PO BID [facility]; Protocol Last Admin: 03/23/21 08:25 Dose: 100 mg Documented by: Duloxetine HCl (Duloxetine 60 Mg Capsule) 60 mg PO DAILY [facility] Last Admin: 03/23/21 08:25 Dose: 60 mg Documented by: Gabapentin (Gabapentin 300 Mg Capsule) 300 mg PO BEDTIME@1999 [facility] Last Admin: 03/22/21 21:55 Dose: 300 mg Documented by: Hydrocortisone (Hydrocortisone 10 Mg Tablet) 30 mg PO DAILY [facility] Last Admin: 03/20/21 08:22 Dose: 30 mg Documented by: Hydrocortisone (Hydrocortisone 10 Mg Tablet) 10 mg PO BEDTIME [facility] Last Admin: 03/19/21 20:39 Dose: 10 mg Documented by: Hydrocortisone (Hydrocortisone 1% Cream 28 Gm) 1 applic TOPICAL QID PRN PRN Reason: ITCHING Last Admin: 03/23/21 09:54 Dose: 1 applic Documented by: Hydrocortisone Sodium Succinate (Hydrocortisone 100 Mg/2 Ml Sdv) 50 mg IVP Q8H [facility] Norepinephrine Bitartrate 4 mg (/ Dextrose) 254 mls @ 0 mls/hr IV .Q0M [facility]; Protocol Last Titration: 03/20/21 16:00 Dose: Infused Documented by: Levothyroxine Sodium (Levothyroxine 175 Mcg Tablet) 175 mcg PO DAILY [facility] Last Admin: 03/23/21 08:23 Dose: 175 mcg Documented by: Metoprolol Tartrate (Metoprolol Tartrate 25 Mg Tablet) 50 mg PO BID@0900,2100 [facility] Last Admin: 03/23/21 08:24 Dose: 50 mg Documented by: Ondansetron HCl (Ondansetron 2 Mg/Ml Sdv 2 Ml) 4 mg IVP Q6H PRN PRN Reason: NAUSEA AND VOMITING Last Admin: 03/20/21 12:04 Dose: 4 mg Documented by: Ondansetron HCl (Ondansetron 4 Mg Tablet) 4 mg PO Q6H PRN PRN Reason: Nausea Oxybutynin Chloride (Oxybutynin Chloride Xl 5 Mg Tablet) 10 mg PO DAILY [facility] Last Admin: 03/23/21 08:23 Dose: 10 mg Documented by: Pantoprazole Sodium (Pantoprazole Dr 40 Mg Tablet) 40 mg PO DAILY [facility] Last Admin: 03/23/21 08:24 Dose: 40 mg Documented by: Polyethylene Glycol (Polyethylene Glycol 3350 Pkt 17 Gm) 17 gm PO BID [facility] Last Admin: 03/23/21 08:30 Dose: Not Given Documented by: Potassium Chloride (Potassium Chloride Er 20 Meq Tablet) 20 meq PO ONCE [facility] Last Admin: 03/23/21 03:24 Dose: 20 meq Documented by: Pramipexole Dihydrochloride (Pramipexole 0.25 Mg Tablet) 0.25 mg PO BEDTIME [facility] Last Admin: 03/22/21 21:55 Dose: 0.25 mg Documented by: Sucralfate (Sucralfate 1 Gm Tablet) 1 gm PO AC&BEDTIME [facility] Last Admin: 03/23/21 06:34 Dose: 1 gm Documented by: Vitals/I&O/Wt Last Vital Signs Temp 97.8 F 03/23/21 08:30 Pulse 81 03/23/21 09:30 Resp 24 H 03/23/21 09:30 BP 147/93 03/23/21 09:30 Pulse Ox 94 03/23/21 09:30 03/22/21 03/23/21 03/23/21 22:59 06:59 14:59 Intake Total 1000 / 1400 300 / 1700 360 / 360 Output Total 350 / 350 500 / 850 Balance 650 / 1050 -200 / 850 360 / 360 Weight last 48 hrs Weight 360 lb Weight 360 lb 3 oz Physical Exam Narrative: EXAM NARRATIVE: GENERAL: The patient is alert and oriented times three. Not in any acute distress. Morbidly obese HEENT: No significant pallor, icterus or lymphadenopathy.Oral cavity: There are no mucous membrane lesions. NECK: Trachea appears to be central. No masses noted. No JVD or thyromegaly appreciated. RESPIRATORY: Chest is symmetrical. No intercostals muscle retraction or any accessory muscle activation. There is no chest wall tenderness. Breath sounds are heard bilaterally. No rales or rhonchi heard. No evidence of any consolidation. The breath sounds are diminished in the bases. BREASTS: Deferred. HEART: The heart sounds are normal. No S3 or S4. No significant murmurs. No pericardial rub ABDOMEN: Abdomen is obese no vessel pulsations or distention. No tenderness. No organomegaly appreciated. Bowel sounds are normally heard. : Deferred. RECTAL: Deferred. LYMPHATIC: No lymphadenopathy noted in the neck or groin. EXTREMITIES: 1+ edema bilaterally in the lower extremities. MUSCULOSKELETAL: No acute joint deformities or swelling SKIN: There are no significant rashes or ecchymosis NEUROPSYCHIATRIC: The patient is alert and oriented x3. Appears to be in a good mood. No tremors or rigidity noted. Urinary Catheter Management^: Zurita: Cath Placed During This Visit: yes Reason for Continuing Indwelling Catheter: Accurate Measurement of Urinary Output in Critically Ill Patients Urinary Catheter Date of Insertion: 03/18/21 Urinary Catheter Time of Insertion: 22:24 Data : 03/23/21 03:32 03/23/21 03:32 Other Labs: Laboratory Last Values WBC 12.9 10^3/uL (4.0-10.0) H 03/22/21 02:25 RBC 4.06 10^6/uL (4.1-5.3) L 03/22/21 02:25 Hgb 9.3 g/dL (11.5-15.3) L 03/22/21 02:25 Hct 31.7 % (37.0-47.0) L 03/22/21 02:25 MCV 78.1 fl (81-99) L 03/22/21 02:25 MCH 22.9 pg (28.0-34.0) L 03/22/21 02:25 MCHC 29.3 g/dL (30.0-36.0) L 03/22/21 02:25 RDW 16.0 % (12.1-15.1) H 03/22/21 02:25 Plt Count 293 10^3/cmm (130-400) 03/23/21 03:32 MPV 9.6 fL (7.4-10.4) 03/22/21 02:25 Neut % (Auto) 83.2 % 03/22/21 02:25 Lymph % (Auto) 7.0 % 03/22/21 02:25 Hendricks % (Auto) 6.7 % 03/22/21 02:25 Eos % (Auto) 0.1 % 03/22/21 02:25 Baso % (Auto) 0.2 % 03/22/21 02:25 Neut # (Auto) 10.71 10^3/uL (1.8-7.7) H 03/22/21 02:25 Lymph # (Auto) 0.9 10^3/uL (0.8-4.8) 03/22/21 02:25 Hendricks # (Auto) 0.9 10^3/uL (0.2-0.9) 03/22/21 02:25 Eos # (Auto) 0.0 10^3/uL (0.0-0.8) 03/22/21 02:25 Baso # (Auto) 0.0 10^3/uL (0.0-0.1) 03/22/21 02:25 Nucleated RBC % (auto) 0 % 03/22/21 02:25 Nucleated RBCs # 0.0 /100WBC 03/22/21 02:25 APTT 38.8 SECONDS (23.9-36.7) H D 03/20/21 09:10 Sodium 138 mmol/L (136-145) 03/23/21 03:32 Potassium 3.7 mmol/L (3.5-5.1) 03/23/21 03:32 Chloride 98 mmol/L (98-107) 03/23/21 03:32 Carbon Dioxide 24 mmol/L (22-29) 03/23/21 03:32 Anion Gap 19.7 (5-19) H 03/23/21 03:32 BUN 25 mg/dL (8-23) H 03/23/21 03:32 Creatinine 1.7 mg/dL (0.5-0.9) H 03/23/21 03:32 GFR Calculation 29.9 mL/min (90-130) L 03/23/21 03:32 Glucose 152 mg/dL (65-115) H 03/23/21 03:32 POC Glucose 75 mg/dL (70-110) 03/18/21 20:40 Calculated Osmolality 286 mOsm/kg (285-295) 03/22/21 20:58 Lactate 2.5 mmol/L (0.5-2.2) H 03/18/21 20:00 Calcium 8.7 mg/dL (8.5-10.5) 03/23/21 03:32 Phosphorus 2.9 mg/dL (2.5-4.5) 03/23/21 03:32 Magnesium 1.9 mg/dL (1.7-2.3) 03/23/21 03:32 Iron 21 ug/dL (37-145) L 03/20/21 20:49 TIBC 224 mcg/dl 03/20/21 20:49 % Saturation 9.3 % (20-50) L 03/20/21 20:49 Unsat Iron Binding 203 ug/dL (112-347) 03/20/21 20:49 Ferritin 95 ng/mL (15-150) 03/20/21 20:49 Total Bilirubin 0.3 mg/dL (0.15-1.2) 03/20/21 03:10 AST 25 U/L (0-32) 03/20/21 03:10 ALT 14 U/L (0-33) 03/20/21 03:10 Alkaline Phosphatase 77 IU/L (35-105) 03/20/21 03:10 Troponin T Baseline 35 ng/L (0-10) H 03/18/21 19:20 Troponin T 120 Minute 37.43 ng/L (0-10) H 03/18/21 21:30 Delta Troponin T 2.43 ABS# (0-10) 03/18/21 21:30 Troponin T Hi Sens 6Hr 38.42 ng/L (0-10) H 03/19/21 01:28 Troponin T Hi Sens 6Hr Delta 3.42 ng/L (0-12) 03/19/21 01:28 C-Reactive Protein 66.1 mg/L (0.0-4.9) H 03/18/21 19:20 NT-Pro-B Natriuret Pep 277 pg/mL (0-125) H 03/18/21 19:20 Total Protein 6.0 g/dL (6.6-8.7) L 03/20/21 03:10 Albumin 3.3 g/dL (3.5-5.2) L 03/23/21 03:32 Globulin 2.8 g/dL (1.3-4.6) 03/20/21 03:10 Lipase 16 U/L (13-60) 03/18/21 19:20 Procalcitonin 0.16 ng/mL (0-0.5) 03/18/21 19:20 TSH 2.00 uIU/mL (0.27-4.20) 03/18/21 19:20 Free T4 1.36 ng/dL (0.82-1.77) 03/20/21 03:10 Urine Color Yellow (Yellow) 03/18/21 19:50 Urine Appearance Clear (CLEAR) 03/18/21 19:50 Urine pH 6.5 (5-7) 03/18/21 19:50 Ur Specific [place] 1.005 (1.005-1.030) 03/18/21 19:50 Urine Protein Neg (Negative) 03/18/21 19:50 Urine Glucose (UA) Norm (Normal) 03/18/21 19:50 Urine Ketones Negative (Negative) 03/18/21 19:50 Urine Blood Neg (Negative) 03/18/21 19:50 Urine Nitrate Negative (Negative) 03/18/21 19:50 Urine Bilirubin Neg (Negative) 03/18/21 19:50 Urine Urobilinogen Norm mg/dL (Negative) 03/18/21 19:50 Ur Leukocyte Esterase Negative (Negative) 03/18/21 19:50 EKG 2: My Interpretation: The EKG showed sinus rhythm with occasional supraventricular ectopics. Some nonspecific T wave changes. Otherwise unremarkable A&P Assessment and plan (1) Atrial fibrillation with rapid ventricular response: Patient may continue on the amiodarone and metoprolol. She need to be closely monitored on telemetry. She may be transferred to a telemetry floor. Status: Acute (2) Pulmonary hypertension: May continue on the current measures. Status: Acute (3) Obstructive sleep apnea: Continue on the current measures Status: Acute (4) Chronic kidney disease, stage 3a: May continue on the current treatment measures Status: Acute (5) Type 2 diabetes mellitus with other diabetic kidney complication: May continue on the current treatment. Aggressive management of the hyperglycemia is 100 Status: Acute (6) Benign essential hypertension with target blood pressure below 140/90: We will try to optimize antihypertensive medications. Status: Acute (7) Hypokalemia: Patient was given some potassium supplement in the morning. We will go a head and check the potassium levels and then will decide on further supplementation Status: Acute Additional A&P Information Morbid obesity KP/OHS Type 2 DM Adrenal insuffieciency If she continues remain stable, may be discharged home tomorrow. 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
--- NOTE | 2021-03-23 11:15 | PM.PN ---
Subjective Subjective: Interval history: The patient is feeling much better today. Denies any active complaints. No dizziness or lightheadedness. No chest pain, palpitations, shortness of breath, diaphoresis. Medications: Reviewed: Yes Medication Review Details: Generic Name Dose Route Start Last Admin Trade Name Freq PRN Reason Stop Dose Admin Alprazolam 0.5 mg 03/20/21 23:45 03/20/21 23:59 Alprazolam 0.5 M g Tablet PO 0.5 mg TID PRN Administration anxiety Amiodarone HCl 400 mg 03/21/21 18:00 03/23/21 08:24 Amiodarone 200 M g Tablet PO 400 mg BID RAMIRO Administration Apixaban 5 mg 03/21/21 18:00 03/23/21 08:24 Apixaban 5 Mg Ta blet PO 5 mg BID RAMIRO Administration Doxycycline Monohy drate 100 mg 03/21/21 18:00 03/23/21 08:25 Doxycycline 100 Mg Tablet PO 100 mg BID RAMIRO Administration Protocol Duloxetine HCl 60 mg 03/20/21 22:30 03/23/21 08:25 Duloxetine 60 Mg Capsule PO 60 mg DAILY RAMIRO Administration Gabapentin 300 mg 03/21/21 20:00 03/22/21 21:55 Gabapentin 300 M g Capsule PO 300 mg BEDTIME@1999 RAMIRO Administration Hydrocortisone 30 mg 03/19/21 09:00 03/20/21 08:22 Hydrocortisone 1 0 Mg Tablet PO 30 mg DAILY RAMIRO Administration Hydrocortisone 10 mg 03/19/21 21:00 03/19/21 20:39 Hydrocortisone 1 0 Mg Tablet PO 10 mg BEDTIME RAMIRO Administration Hydrocortisone 1 applic 03/20/21 13:01 03/23/21 09:54 Hydrocortisone 1 % Cream 28 Gm TOPICAL 1 applic QID PRN Administration ITCHING Norepinephrine Bit artrate 4 mg 254 mls @ 0 mls/h r 03/19/21 02:00 03/20/21 16:00 / Dextrose IV Infused .Q0M RAMIRO Titration Protocol Per Protocol Levothyroxine Sodi um 175 mcg 03/19/21 09:00 03/23/21 08:23 Levothyroxine 17 5 Mcg Tablet PO 175 mcg DAILY RAMIRO Administration Metoprolol Tartrat e 50 mg 03/23/21 09:00 03/23/21 08:24 Metoprolol Tartr ate 25 Mg Tablet PO 50 mg BID@0900,2100 RAMIRO Administration Ondansetron HCl 4 mg 03/19/21 02:27 03/20/21 12:04 Ondansetron 2 Mg /Ml Sdv 2 Ml IVP 4 mg Q6H PRN Administration NAUSEA AND VOMITI NG Oxybutynin Chlorid e 10 mg 03/19/21 09:00 03/23/21 08:23 Oxybutynin Chlor [place]on Xl 5 Mg Tablet PO 10 mg DAILY RAMIRO Administration Pantoprazole Sodiu m 40 mg 03/19/21 09:00 03/23/21 08:[address] 40 Mg Tablet PO 40 mg DAILY RAMIRO Administration Polyethylene Glyco l 17 gm 03/21/21 09:00 03/23/21 08:30 Polyethylene Gly col 3350 Pkt 17 Gm PO Not Given BID RAMIRO Potassium Chloride 20 meq 03/23/21 01:45 03/23/21 03:24 Potassium Chlori de Er 20 Meq Table t PO 20 meq ONCE RAMIRO Administration Pramipexole Dihydr ochloride 0.25 mg 03/21/21 21:00 03/22/21 21:55 Pramipexole 0.25 Mg Tablet PO 0.25 mg BEDTIME RAMIRO Administration Sucralfate 1 gm 03/19/21 07:00 03/23/21 06:34 Sucralfate 1 Gm Tablet PO 1 gm AC&BEDTIME RAMIRO Administration Vitals/I&O/Wt Last Vital Signs Temp 97.8 F 03/23/21 08:30 Pulse 67 03/23/21 10:00 Resp 16 03/23/21 10:00 BP 133/84 03/23/21 10:00 Pulse Ox 95 03/23/21 10:00 03/22/21 03/23/21 03/23/21 22:59 06:59 14:59 Intake Total 1000 / 1400 300 / 1700 360 / 360 Output Total 350 / 350 500 / 850 Balance 650 / 1050 -200 / 850 360 / 360 Weight last 48 hrs Weight 163.293 kg Weight 163.378 kg Physical Exam Narrative: EXAM NARRATIVE: Awake alert oriented x3. No acute distress. Mood and affect are appropriate. Responses are adequate. Skin is warm and dry. Moist mucous memories Neck supple. No JVD Eyes PERRL, extraocular muscles are intact Heart S1, S2, regular Abdomen is soft, obese, nontender, bowel sounds are present Lungs. Mildly decreased breath sounds bibasilarly. No crackles or wheezes. Extremities. Chronic venous stasis changes. Bilateral edema. 2 superficial wounds in the left lower extremity just above the ankle. No surrounding hyperemia or swelling. No discharge.. No peripheral cyanosis. Urinary Catheter Management^: Zurita: Cath Placed During This Visit: yes Reason for Continuing Indwelling Catheter: Accurate Measurement of Urinary Output in Critically Ill Patients Urinary Catheter Date of Insertion: 03/18/21 Urinary Catheter Time of Insertion: 22:24 Data : 03/23/21 03:32 03/23/21 03:32 A&P Assessment and plan (1) Acute worsening of stage 3 chronic kidney disease: Continue to follow closely. Zurita has been placed. Output has been excellent. Renal function has already started to improve Status: Acute (2) Nausea & vomiting: This has abated once admission has occurred. Monitor for any recurrence. If any significant diarrhea, consider C. difficile toxin Status: Acute (3) Atrial fibrillation with rapid ventricular response: Currently on a Cardizem drip Wean as tolerated Initiate p.o. Cardizem if we can get her off norepinephrine Currently on heparin drip, consider oral anticoagulation initiation if it is obvious she will not need any procedures/dialysis catheter. 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 and 10 in p.m. Will need slow taper as an outpatient to ultimately 20 in the morning and 10 in the PM. Received 1 dose of Solu-Cortef on admission Status: Acute (11) Benign essential hypertension with target blood pressure below 140/90: Status: Acute (12) CHF (congestive heart failure): Status: Acute Qualifiers: Heart failure type: unspecified Heart failure chronicity: acute Qualified Code(s): I50.9 - Heart failure, unspecified (13) Obesity: Status: Acute (14) Adrenal insufficiency: Status: Acute (15) Chronic back pain: Status: Chronic (16) Anasarca: Holding diuretics today, restart when appropriate Markedly improved from last hospitalization Status: Acute Additional A&P Information A. fib with RVR. Medications are adjusted by cardiology. Appreciate input. Converted to sinus last night. If she remains stable we might be able to discharge her home tomorrow with outpatient follow-up with cardiology. CHF acute exacerbation with normal EF. Probably due to #1. Continue Lasix and management of the A. fib. RODRIGUE on top of chronic kidney disease. Improving renal function. Continue monitoring. Avoid nephrotoxic medications. Anemia. Stable. Continue monitoring. Chronic pain. Currently well controlled. Continue current management. Diabetes. Well-controlled currently. Continue current management. History of adrenal insufficiency. Well-controlled. Tapering IV steroids. We'll continue Synthroid. Infected foot ulcers. Doxycycline is initiated. The infection seems to be under control. We will continue wound care. Hypertension. Well-controlled. Continue current management. DVT prophylaxis. On Eliquis. The plan of care was discussed with the patient. She verbalized understanding and agreement. Discussed with the multidisciplinary team. Discussed with Dr. Sellers. Attestations Medical Necessity Statement*: Possible discharge home tomorrow. Coding Level of Care Code Acute [employer] for [employer] F[employer] Diagnoses Acute worsening of stage 3 chronic kidney disease N18.30 Nausea & vomiting R11.2 Atrial fibrillation with rapid ventricular response I48.91 RODRIGUE (acute kidney injury) N17.9 Pulmonary hypertension I27.20 Dyspnea R06.00 Dyspnea type: dyspnea on exertion Obstructive sleep apnea G47.33 Type 2 diabetes mellitus with other diabetic kidney complication E11.29 Pituitary macroadenoma with extrasellar extension D35.2 Central hypothyroidism E03.8 Benign essential hypertension with target blood pressure below 140/90 I10 CHF (congestive heart failure) I50.9 Heart failure type: unspecified Heart failure chronicity: acute Obesity E66.9 Adrenal insufficiency E27.40 Chronic back pain M54.9; G89.29 Anasarca R60.1
[2021-03-23] MEDS: hydrocortisone 100 mg/2 mL SDV 50 MG IVP ×2 (15:59→22:09)
--- NOTE | 2021-03-23 18:31 | PC.NURSE ---
Report faxed to CSU. , Nurse not available at this time for report over telephone.
--- NOTE | 2021-03-23 18:31 | PC.NURSE ---
Shift Note: Pt was getting ready for a cardioversion and VISHAL when she converted to sinus rhythm on her own. She has stayed in sinus rhythm throughout the shift. She can now tolerate just room air. She worked with PT this am, got short of breath but O2sats remained greater than 94%, she stayed in sinus rhythm. She recovered quickly. She has been much more relaxed today, resting in bed with yes closed for a least half the shift. Urine output of 450ml noted. She remains non-compliant with her Cardiac diet. Frequent safety and comfort rounds continue. Orders and/or nursing care completed as indicated. Patient monitored for response to intervention and treatment(s). Education provided includes metoprolol and continuing plan of care. Patient and/or sales training representative verbalized understanding. Will continue to monitor.
--- NOTE | 2021-03-23 19:20 | PC.NURSE ---
Transfer Note Patient transferred to [facility] room 101 from ICU via bed. Handoff report given to MYRON Salazar. Patient oriented to environment and equipment. Covering service notified. Orders reviewed and will continue to monitor. Family and/or outside dealer sales representative notified. All patient belongings transferred and placed at bedside.
[2021-03-23] MEDS: gabapentin 300 mg Capsule PO (22:08)
[2021-03-23] MEDS: pramipexole 0.25 mg Tablet PO (22:09)
[2021-03-24] VITALS (17 sets, daily range): BP systolic 97–145; BP diastolic 53–86; PULSE 59–73; RESP 16–23; TEMP 36.6–37; O2SAT 85–98
[2021-03-24 05:11] LABS: Basophils % 0.2 %; Eosinophils % 0.1 %; Hematocrit 30.7 % (37.0-47.0); Lymphocytes # 1.3 10^3/uL (0.8-4.8); Lymphocytes % 5.9 %; Mean Corpuscular HGB Conc 29.3 g/dL (30.0-36.0); Mean Corpuscular Hemoglobin 23.4 pg (28.0-34.0); Mean Corpuscular Volume 79.9 fl (81-99); Mean Platelet Volume 9.4 fL (7.4-10.4); Monocytes # 1.9 10^3/uL (0.2-0.9); Monocytes % 8.9 %; Neutrophils # 17.67 10^3/uL (1.8-7.7); Neutrophils % 82.3 %; Nucleated Red Blood Cells % 0.1 %; Platelet Count 323 10^3/cmm (130-400); Red Blood Count 3.84 10^6/uL (4.1-5.3); Red Cell Distribution Width 16.2 % (12.1-15.1); White Blood Count 21.5 10^3/uL (4.0-10.0)
[2021-03-24] MEDS: hydrocortisone 100 mg/2 mL SDV 50 MG IVP ×2 (05:59→17:36)
[2021-03-24] MEDS: sucralfate 1 gm Tablet PO ×3 (06:03→21:09)
[2021-03-24 06:04] LABS: Albumin Level 3.4 g/dL (3.5-5.2); Anion Gap 13.5 (5-19); Blood Urea Nitrogen 29 mg/dL (8-23); Calcium 8.6 mg/dL (8.5-10.5); Carbon Dioxide 29 mmol/L (22-29); Chloride 99 mmol/L (98-107); Glomerular Filtration Rate 29.9 mL/min (90-130); Glucose 164 mg/dL (65-115); Phosphorus 2.8 mg/dL (2.5-4.5); Potassium 3.5 mmol/L (3.5-5.1); Sodium 138 mmol/L (136-145)
--- NOTE | 2021-03-24 07:39 | PC.NURSE ---
Shift Note Frequent safety and comfort rounds continue. Orders and/or nursing care completed as indicated. Patient monitored for response to intervention and treatment(s). Education provided includes medications. Patient and/or wholesale representative verbalizes understanding. Will continue to monitor.
[2021-03-24] MEDS: apixaban 5 mg Tablet PO ×2 (09:35→17:36)
[2021-03-24] MEDS: metoprolol tartrate 25 mg Tablet 50 MG PO ×2 (09:35→21:09)
[2021-03-24] MEDS: amiodarone 200 mg Tablet 400 MG PO ×2 (09:35→17:36)
[2021-03-24] MEDS: pantoprazole DR 40 mg Tablet PO (09:36)
[2021-03-24] MEDS: oxybutynin chloride XL 5 MG TABLET 10 MG PO (09:36)
[2021-03-24] MEDS: doxycycline 100 mg Tablet PO ×2 (09:36→17:36)
[2021-03-24] MEDS: levothyroxine 175 mcg Tablet PO (09:36)
[2021-03-24] MEDS: duloxetine 60 mg Capsule PO (09:36)
[2021-03-24] MEDS: polyethylene glycol 3350 Pkt 17 gm PO (09:40)
--- NOTE | 2021-03-24 09:58 | P.PN_ITS ---
Subjective Subjective: Interval history: Patient seems to have UTI and elevated white cell count. She is on IV antibiotics. She continues to stay in the sinus rhythm. No recurrence of atrial fibrillation since yesterday. Medications: Reviewed: Yes Medication Review Details: Current Medications Alprazolam (Alprazolam 0.5 Mg Tablet) 0.5 mg PO TID PRN PRN Reason: anxiety Last Admin: 03/20/21 23:59 Dose: 0.5 mg Documented by: Amiodarone HCl (Amiodarone 200 Mg Tablet) 400 mg PO BID [facility] Last Admin: 03/24/21 09:35 Dose: 400 mg Documented by: Apixaban (Apixaban 5 Mg Tablet) 5 mg PO BID [facility] Last Admin: 03/24/21 09:35 Dose: 5 mg Documented by: Doxycycline Monohydrate (Doxycycline 100 Mg Tablet) 100 mg PO BID [facility]; Protocol Last Admin: 03/24/21 09:36 Dose: 100 mg Documented by: Duloxetine HCl (Duloxetine 60 Mg Capsule) 60 mg PO DAILY [facility] Last Admin: 03/24/21 09:36 Dose: 60 mg Documented by: Gabapentin (Gabapentin 300 Mg Capsule) 300 mg PO BEDTIME@1999 [facility] Last Admin: 03/23/21 22:08 Dose: 300 mg Documented by: Hydrocortisone (Hydrocortisone 10 Mg Tablet) 30 mg PO DAILY [facility] Last Admin: 03/20/21 08:22 Dose: 30 mg Documented by: Hydrocortisone (Hydrocortisone 10 Mg Tablet) 10 mg PO BEDTIME [facility] Last Admin: 03/19/21 20:39 Dose: 10 mg Documented by: Hydrocortisone (Hydrocortisone 1% Cream 28 Gm) 1 applic TOPICAL QID PRN PRN Reason: ITCHING Last Admin: 03/23/21 09:54 Dose: 1 applic Documented by: Hydrocortisone Sodium Succinate (Hydrocortisone 100 Mg/2 Ml Sdv) 50 mg IVP Q12H [facility] Norepinephrine Bitartrate 4 mg (/ Dextrose) 254 mls @ 0 mls/hr IV .Q0M [facility]; Protocol Last Titration: 03/20/21 16:00 Dose: Infused Documented by: Levothyroxine Sodium (Levothyroxine 175 Mcg Tablet) 175 mcg PO DAILY [facility] Last Admin: 03/24/21 09:36 Dose: 175 mcg Documented by: Metoprolol Tartrate (Metoprolol Tartrate 25 Mg Tablet) 50 mg PO BID@0900,2100 [facility] Last Admin: 03/24/21 09:35 Dose: 50 mg Documented by: Ondansetron HCl (Ondansetron 2 Mg/Ml Sdv 2 Ml) 4 mg IVP Q6H PRN PRN Reason: NAUSEA AND VOMITING Last Admin: 03/20/21 12:04 Dose: 4 mg Documented by: Ondansetron HCl (Ondansetron 4 Mg Tablet) 4 mg PO Q6H PRN PRN Reason: Nausea Oxybutynin Chloride (Oxybutynin Chloride Xl 5 Mg Tablet) 10 mg PO DAILY [facility] Last Admin: 03/24/21 09:36 Dose: 10 mg Documented by: Pantoprazole Sodium (Pantoprazole Dr 40 Mg Tablet) 40 mg PO DAILY [facility] Last Admin: 03/24/21 09:36 Dose: 40 mg Documented by: Polyethylene Glycol (Polyethylene Glycol 3350 Pkt 17 Gm) 17 gm PO BID [facility] Last Admin: 03/24/21 09:40 Dose: 17 gm Documented by: Potassium Chloride (Potassium Chloride Er 20 Meq Tablet) 20 meq PO ONCE [facility] Last Admin: 03/23/21 03:24 Dose: 20 meq Documented by: Pramipexole Dihydrochloride (Pramipexole 0.25 Mg Tablet) 0.25 mg PO BEDTIME [facility] Last Admin: 03/23/21 22:09 Dose: 0.25 mg Documented by: Sucralfate (Sucralfate 1 Gm Tablet) 1 gm PO AC&BEDTIME [facility] Last Admin: 03/24/21 06:03 Dose: 1 gm Documented by: Vitals/I&O/Wt Last Vital Signs Temp 98.0 F 03/24/21 09:34 Pulse 71 03/24/21 09:25 Resp 19 H 03/24/21 09:25 BP 132/82 03/24/21 09:25 Pulse Ox 94 03/24/21 09:25 03/23/21 03/24/21 03/24/21 22:59 06:59 14:59 Intake Total 480 / 1340 250 / 1590 360 / 360 Output Total 475 / 475 450 / 925 Balance 5 / 865 -200 / 665 360 / 360 Weight last 48 hrs Weight 362 lb Weight 360 lb Physical Exam Narrative: EXAM NARRATIVE: GENERAL: The patient is alert and oriented times three. Not in any acute distress. Morbidly obese HEENT: No significant pallor, icterus or lymphadenopathy.Oral cavity: There are no mucous membrane lesions. NECK: Trachea appears to be central. No masses noted. No JVD or thyromegaly appreciated. RESPIRATORY: Chest is symmetrical. No intercostals muscle retraction or any accessory muscle activation. There is no chest wall tenderness. Breath sounds are heard bilaterally. No rales or rhonchi heard. No evidence of any consolidation. The breath sounds are diminished in the bases. BREASTS: Deferred. HEART: The heart sounds are normal. No S3 or S4. No significant murmurs. No pericardial rub ABDOMEN: Abdomen is obese no vessel pulsations or distention. No tenderness. No organomegaly appreciated. Bowel sounds are normally heard. : Deferred. RECTAL: Deferred. LYMPHATIC: No lymphadenopathy noted in the neck or groin. EXTREMITIES: 1+ edema bilaterally in the lower extremities. MUSCULOSKELETAL: No acute joint deformities or swelling SKIN: There are no significant rashes or ecchymosis NEUROPSYCHIATRIC: The patient is alert and oriented x3. Appears to be in a good mood. No tremors or rigidity noted. Urinary Catheter Management^: Zurita: Cath Placed During This Visit: yes Reason for Continuing Indwelling Catheter: Accurate Measurement of Urinary Output in Critically Ill Patients Urinary Catheter Date of Insertion: 03/18/21 Urinary Catheter Time of Insertion: 22:24 Data : 03/24/21 04:20 03/24/21 04:20 Other Labs: Laboratory Last Values WBC 21.5 10^3/uL (4.0-10.0) H 03/24/21 04:20 RBC 3.84 10^6/uL (4.1-5.3) L 03/24/21 04:20 Hgb 9.0 g/dL (11.5-15.3) L 03/24/21 04:20 Hct 30.7 % (37.0-47.0) L 03/24/21 04:20 MCV 79.9 fl (81-99) L 03/24/21 04:20 MCH 23.4 pg (28.0-34.0) L 03/24/21 04:20 MCHC 29.3 g/dL (30.0-36.0) L 03/24/21 04:20 RDW 16.2 % (12.1-15.1) H 03/24/21 04:20 Plt Count 323 10^3/cmm (130-400) 03/24/21 04:20 MPV 9.4 fL (7.4-10.4) 03/24/21 04:20 Neut % (Auto) 82.3 % 03/24/21 04:20 Lymph % (Auto) 5.9 % 03/24/21 04:20 [place] % (Auto) 8.9 % 03/24/21 04:20 Eos % (Auto) 0.1 % 03/24/21 04:20 Baso % (Auto) 0.2 % 03/24/21 04:20 Neut # (Auto) 17.67 10^3/uL (1.8-7.7) H 03/24/21 04:20 Lymph # (Auto) 1.3 10^3/uL (0.8-4.8) 03/24/21 04:20 [place] # (Auto) 1.9 10^3/uL (0.2-0.9) H 03/24/21 04:20 Eos # (Auto) 0.0 10^3/uL (0.0-0.8) 03/24/21 04:20 Baso # (Auto) 0.0 10^3/uL (0.0-0.1) 03/24/21 04:20 Nucleated RBC % (auto) 0.1 % 03/24/21 04:20 Nucleated RBCs # 0.0 /100WBC 03/24/21 04:20 APTT 38.8 SECONDS (23.9-36.7) H D 03/20/21 09:10 Sodium 138 mmol/L (136-145) 03/24/21 04:20 Potassium 3.5 mmol/L (3.5-5.1) 03/24/21 04:20 Chloride 99 mmol/L (98-107) 03/24/21 04:20 Carbon Dioxide 29 mmol/L (22-29) 03/24/21 04:20 Anion Gap 13.5 (5-19) 03/24/21 04:20 BUN 29 mg/dL (8-23) H 03/24/21 04:20 Creatinine 1.7 mg/dL (0.5-0.9) H 03/24/21 04:20 GFR Calculation 29.9 mL/min (90-130) L 03/24/21 04:20 Glucose 164 mg/dL (65-115) H 03/24/21 04:20 POC Glucose 75 mg/dL (70-110) 03/18/21 20:40 Calculated Osmolality 286 mOsm/kg (285-295) 03/22/21 20:58 Lactate 2.5 mmol/L (0.5-2.2) H 03/18/21 20:00 Calcium 8.6 mg/dL (8.5-10.5) 03/24/21 04:20 Phosphorus 2.8 mg/dL (2.5-4.5) 03/24/21 04:20 Magnesium 2.0 mg/dL (1.7-2.3) 03/24/21 04:20 Iron 21 ug/dL (37-145) L 03/20/21 20:49 TIBC 224 mcg/dl 03/20/21 20:49 % Saturation 9.3 % (20-50) L 03/20/21 20:49 Unsat Iron Binding 203 ug/dL (112-347) 03/20/21 20:49 Ferritin 95 ng/mL (15-150) 03/20/21 20:49 Total Bilirubin 0.3 mg/dL (0.15-1.2) 03/20/21 03:10 AST 25 U/L (0-32) 03/20/21 03:10 ALT 14 U/L (0-33) 03/20/21 03:10 Alkaline Phosphatase 77 IU/L (35-105) 03/20/21 03:10 Troponin T Baseline 35 ng/L (0-10) H 03/18/21 19:20 Troponin T 120 Minute 37.43 ng/L (0-10) H 03/18/21 21:30 Delta Troponin T 2.43 ABS# (0-10) 03/18/21 21:30 Troponin T Hi Sens 6Hr 38.42 ng/L (0-10) H 03/19/21 01:28 Troponin T Hi Sens 6Hr Delta 3.42 ng/L (0-12) 03/19/21 01:28 C-Reactive Protein 66.1 mg/L (0.0-4.9) H 03/18/21 19:20 NT-Pro-B Natriuret Pep 277 pg/mL (0-125) H 03/18/21 19:20 Total Protein 6.0 g/dL (6.6-8.7) L 03/20/21 03:10 Albumin 3.4 g/dL (3.5-5.2) L 03/24/21 04:20 Globulin 2.8 g/dL (1.3-4.6) 03/20/21 03:10 Lipase 16 U/L (13-60) 03/18/21 19:20 Procalcitonin 0.16 ng/mL (0-0.5) 03/18/21 19:20 TSH 2.00 uIU/mL (0.27-4.20) 03/18/21 19:20 Free T4 1.36 ng/dL (0.82-1.77) 03/20/21 03:10 Urine Color Yellow (Yellow) 03/18/21 19:50 Urine Appearance Clear (CLEAR) 03/18/21 19:50 Urine pH 6.5 (5-7) 03/18/21 19:50 Ur Specific [place] 1.005 (1.005-1.030) 03/18/21 19:50 Urine Protein Neg (Negative) 03/18/21 19:50 Urine Glucose (UA) Norm (Normal) 03/18/21 19:50 Urine Ketones Negative (Negative) 03/18/21 19:50 Urine Blood Neg (Negative) 03/18/21 19:50 Urine Nitrate Negative (Negative) 03/18/21 19:50 Urine Bilirubin Neg (Negative) 03/18/21 19:50 Urine Urobilinogen Norm mg/dL (Negative) 03/18/21 19:50 Ur Leukocyte Esterase Negative (Negative) 03/18/21 19:50 Micro: Microbiology 03/18/21 21:30 Blood Culture - Final Blood NO GROWTH AFTER 5 DAYS 03/18/21 20:00 Blood Culture - Final Blood NO GROWTH AFTER 5 DAYS A&P Assessment and plan (1) Atrial fibrillation with rapid ventricular response: She currently seems to be staying in sinus rhythm. patient may continue on the amiodarone and metoprolol. She need to be closely monitored on telemetry. She may be transferred to a telemetry floor. Status: Acute (2) Pulmonary hypertension: May continue on the current measures. Status: Acute (3) Obstructive sleep apnea: Continue on the current measures Status: Acute (4) Chronic kidney disease, stage 3a: May continue on the current treatment measures Status: Acute (5) Type 2 diabetes mellitus with other diabetic kidney complication: May continue on the current treatment. Aggressive management of the hyperglycemia would be appropriate Status: Acute (6) Benign essential hypertension with target blood pressure below 140/90: Currently normotensive. May continue on the current medications Status: Acute (7) Hypokalemia: Currently the potassium level is within normal limits. May continue on the current measures Status: Acute (8) Leukocytosis: Possible urosepsis. 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
--- NOTE | 2021-03-24 10:32 | P.PN_ITS ---
Subjective Subjective: Interval history: Overall the patient reports feeling okay. Reports some tiredness this morning. Also reports that the urine is cloudy and dark. No fever or chills. No chest pain, shortness of breath, cough, palpitations. Medications: Reviewed: Yes Medication Review Details: Laboratory Results WBC 21.5 10^3/uL (4.0 -10.0) H 03/24/21 04:20 RBC 3.84 10^6/uL (4.1 -5.3) L 03/24/21 04:20 Hgb 9.0 g/dL (11.5-15 .3) L 03/24/21 04:20 Hct 30.7 % (37.0-47.0 ) L 03/24/21 04:20 MCV 79.9 fl (81-99) L 03/24/21 04:20 MCH 23.4 pg (28.0-34. 0) L 03/24/21 04:20 MCHC 29.3 g/dL (30.0-3 6.0) L 03/24/21 04:20 RDW 16.2 % (12.1-15.1 ) H 03/24/21 04:20 Plt Count 323 10^3/cmm (130 -400) 03/24/21 04:20 MPV 9.4 fL (7.4-10.4) 03/24/21 04:20 Neut % (Auto) 82.3 % 03/24/21 04:20 Lymph % (Auto) 5.9 % 03/24/21 04:20 [place] % (Auto) 8.9 % 03/24/21 04:20 Eos % (Auto) 0.1 % 03/24/21 04:20 Baso % (Auto) 0.2 % 03/24/21 04:20 Neut # (Auto) 17.67 10^3/uL (1. 8-7.7) H 03/24/21 04:20 Lymph # (Auto) 1.3 10^3/uL (0.8- 4.8) 03/24/21 04:20 [place] # (Auto) 1.9 10^3/uL (0.2- 0.9) H 03/24/21 04:20 Eos # (Auto) 0.0 10^3/uL (0.0- 0.8) 03/24/21 04:20 Baso # (Auto) 0.0 10^3/uL (0.0- 0.1) 03/24/21 04:20 Nucleated RBC % (a uto) 0.1 % 03/24/21 04:20 Nucleated RBCs # 0.0 /100WBC 03/24/21 04:20 APTT 38.8 SECONDS (23. 9-36.7) H D 03/20/21 09:10 Sodium 138 mmol/L (136-1 45) 03/24/21 04:20 Potassium 3.5 mmol/L (3.5-5 .1) 03/24/21 04:20 Chloride 99 mmol/L (98-107 ) 03/24/21 04:20 Carbon Dioxide 29 mmol/L (22-29) 03/24/21 04:20 Anion Gap 13.5 (5-19) 03/24/21 04:20 BUN 29 mg/dL (8-23) H 03/24/21 04:20 Creatinine 1.7 mg/dL (0.5-0. 9) H 03/24/21 04:20 GFR Calculation 29.9 mL/min (90-1 30) L 03/24/21 04:20 Glucose 164 mg/dL (65-115 ) H 03/24/21 04:20 POC Glucose 75 mg/dL (70-110) 03/18/21 20:40 Calculated Osmolal ity 286 mOsm/kg (285- 295) 03/22/21 20:58 Lactate 2.5 mmol/L (0.5-2 .2) H 03/18/21 20:00 Calcium 8.6 mg/dL (8.5-10 .5) 03/24/21 04:20 Phosphorus 2.8 mg/dL (2.5-4. 5) 03/24/21 04:20 Magnesium 2.0 mg/dL (1.7-2. 3) 03/24/21 04:20 Iron 21 ug/dL (37-145) L 03/20/21 20:49 TIBC 224 mcg/dl 03/20/21 20:49 % Saturation 9.3 % (20-50) L 03/20/21 20:49 Unsat Iron Binding 203 ug/dL (112-34 7) 03/20/21 20:49 Ferritin 95 ng/mL (15-150) 03/20/21 20:49 Total Bilirubin 0.3 mg/dL (0.15-1 .2) 03/20/21 03:10 AST 25 U/L (0-32) 03/20/21 03:10 ALT 14 U/L (0-33) 03/20/21 03:10 Alkaline Phosphata se 77 IU/L (35-105) 03/20/21 03:10 Troponin T Baselin e 35 ng/L (0-10) H 03/18/21 19:20 Troponin T 120 Min can 37.43 ng/L (0-10) H 03/18/21 21:30 Delta Troponin T 2.43 ABS# (0-10) 03/18/21 21:30 Troponin T Hi Sens 6Hr 38.42 ng/L (0-10) H 03/19/21 01:28 Troponin T Hi Sens 6Hr Delta 3.42 ng/L (0-12) 03/19/21 01:28 C-Reactive Protein 66.1 mg/L (0.0-4. 9) H 03/18/21 19:20 NT-Pro-B Natriuret Pep 277 pg/mL (0-125) H 03/18/21 19:20 Total Protein 6.0 g/dL (6.6-8.7 ) L 03/20/21 03:10 Albumin 3.4 g/dL (3.5-5.2 ) L 03/24/21 04:20 Globulin 2.8 g/dL (1.3-4.6 ) 03/20/21 03:10 Lipase 16 U/L (13-60) 03/18/21 19:20 Procalcitonin 0.16 ng/mL (0-0.5 ) 03/18/21 19:20 TSH 2.00 uIU/mL (0.27 -4.20) 03/18/21 19:20 Free T4 1.36 ng/dL (0.82- 1.77) 03/20/21 03:10 Urine Color Yellow (Yellow) 03/18/21 19:50 Urine Appearance Clear (CLEAR) 03/18/21 19:50 Urine pH 6.5 (5-7) 03/18/21 19:50 Ur Specific Gravit y 1.005 (1.005-1.0 30) 03/18/21 19:50 Urine Protein Neg (Negative) 03/18/21 19:50 Urine Glucose (UA) Norm (Normal) 03/18/21 19:50 Urine Ketones Negative (Negati ve) 03/18/21 19:50 Urine Blood Neg (Negative) 03/18/21 19:50 Urine Nitrate Negative (Negati ve) 03/18/21 19:50 Urine Bilirubin Neg (Negative) 03/18/21 19:50 Urine Urobilinogen Norm mg/dL (Negat pedro) 03/18/21 19:50 Ur Leukocyte Saida ase Negative (Negati ve) 03/18/21 19:50 Impressions Chest X-Ray 03/18/21 19:18 IMPRESSION: No acute finding. Chest/Abdomen/Pelvis CT 03/18/21 20:57 IMPRESSION: 1. No acute finding identified in the chest. IMPRESSION: 1. No acute finding identified in the abdomen or pelvis. 2. Fatty liver. Generic Name Dose Route Start Last Admin Trade Name Freq PRN Reason Stop Dose Admin Alprazolam 0.5 mg 03/20/21 23:45 03/20/21 23:59 Alprazolam 0.5 M g Tablet PO 0.5 mg TID PRN Administration anxiety Amiodarone HCl 400 mg 03/21/21 18:00 03/24/21 09:35 Amiodarone 200 M g Tablet PO 400 mg BID RAMIRO Administration Apixaban 5 mg 03/21/21 18:00 03/24/21 09:35 Apixaban 5 Mg Ta blet PO 5 mg BID RAMIRO Administration Doxycycline Monohy drate 100 mg 03/21/21 18:00 03/24/21 09:36 Doxycycline 100 Mg Tablet PO 100 mg BID RAMIRO Administration Protocol Duloxetine HCl 60 mg 03/20/21 22:30 03/24/21 09:36 Duloxetine 60 Mg Capsule PO 60 mg DAILY RAMIRO Administration Gabapentin 300 mg 03/21/21 20:00 03/23/21 22:08 Gabapentin 300 M g Capsule PO 300 mg BEDTIME@2000 RAMIRO Administration Hydrocortisone 30 mg 03/19/21 09:00 03/20/21 08:22 Hydrocortisone 1 0 Mg Tablet PO 30 mg DAILY RAMIRO Administration Hydrocortisone 10 mg 03/19/21 21:00 03/19/21 20:39 Hydrocortisone 1 0 Mg Tablet PO 10 mg BEDTIME RAMIRO Administration Hydrocortisone 1 applic 03/20/21 13:01 03/23/21 09:54 Hydrocortisone 1 % Cream 28 Gm TOPICAL 1 applic QID PRN Administration ITCHING Norepinephrine Bit artrate 4 mg 254 mls @ 0 mls/h r 03/19/21 02:00 03/20/21 16:00 / Dextrose IV Infused .Q0M RAMIRO Titration Protocol Per Protocol Levothyroxine Sodi um 175 mcg 03/19/21 09:00 03/24/21 09:36 Levothyroxine 17 5 Mcg Tablet PO 175 mcg DAILY RAMIRO Administration Metoprolol Tartrat e 50 mg 03/23/21 09:00 03/24/21 09:35 Metoprolol Tartr ate 25 Mg Tablet PO 50 mg BID@0900,2100 RAMIRO Administration Ondansetron HCl 4 mg 03/19/21 02:27 03/20/21 12:04 Ondansetron 2 Mg /Ml Sdv 2 Ml IVP 4 mg Q6H PRN Administration NAUSEA AND VOMITI NG Oxybutynin Chlorid e 10 mg 03/19/21 09:00 03/24/21 09:36 Oxybutynin Chlor [place]on Xl 5 Mg Tablet PO 10 mg DAILY RAMIRO Administration Pantoprazole Sodiu m 40 mg 03/19/21 09:00 03/24/21 09:[address] 40 Mg Tablet PO 40 mg DAILY RAMIRO Administration Polyethylene Glyco l 17 gm 03/21/21 09:00 03/24/21 09:40 Polyethylene Gly col 3350 Pkt 17 Gm PO 17 gm BID RAMIRO Administration Potassium Chloride 20 meq 03/23/21 01:45 03/23/21 03:24 Potassium Chlori de Er 20 Meq Table t PO 20 meq ONCE RAMIRO Administration Pramipexole Dihydr ochloride 0.25 mg 03/21/21 21:00 03/23/21 22:09 Pramipexole 0.25 Mg Tablet PO 0.25 mg BEDTIME RAMIRO Administration Sucralfate 1 gm 03/19/21 07:00 03/24/21 06:03 Sucralfate 1 Gm Tablet PO 1 gm AC&BEDTIME RAMIRO Administration Vitals/I&O/Wt Last Vital Signs Temp 98.0 F 12/29/21 09:34 Pulse 71 03/24/21 09:25 Resp 19 H 03/24/21 09:25 BP 132/82 03/24/21 09:25 Pulse Ox 94 03/24/21 09:25 03/23/21 03/24/21 03/24/21 22:59 06:59 14:59 Intake Total 480 / 1340 250 / 1590 360 / 360 Output Total 475 / 475 450 / 925 Balance 5 / 865 -200 / 665 360 / 360 Weight last 48 hrs Weight 164.2 kg Weight 163.293 kg Physical Exam Narrative: EXAM NARRATIVE: Awake alert oriented x3. No acute distress. Mood and affect are appropriate. Responses are adequate. Skin is warm and dry. Moist mucous memories Neck supple. No JVD Eyes PERRL, extraocular muscles are intact Heart S1, S2, regular Abdomen is soft, obese, nontender, bowel sounds are present Lungs. Mildly decreased breath sounds bibasilarly. No crackles or wheezes. Extremities. Chronic venous stasis changes. Bilateral edema. 2 superficial wounds in the left lower extremity just above the ankle. No changes in the kyle earance. No surrounding hyperemia or swelling. No discharge. No peripheral cyanosis. Urinary Catheter Management^: Zurita: Cath Placed During This Visit: yes Reason for Continuing Indwelling Catheter: Accurate Measurement of Urinary Output in Critically Ill Patients Urinary Catheter Date of Insertion: 03/18/21 Urinary Catheter Time of Insertion: 22:24 Data : 03/24/21 04:20 03/24/21 04:20 Micro: Microbiology 03/18/21 21:30 Blood Culture - Final Blood NO GROWTH AFTER 5 DAYS 03/18/21 20:00 Blood Culture - Final Blood NO GROWTH AFTER 5 DAYS A&P Assessment and plan (1) Acute worsening of stage 3 chronic kidney disease: Continue to follow closely. Zurita has been placed. Output has been excellent. Renal function has already started to improve Status: Acute (2) Nausea & vomiting: This has abated once admission has occurred. Monitor for any recurrence. If any significant diarrhea, consider C. difficile toxin Status: Acute (3) Atrial fibrillation with rapid ventricular response: Currently on a Cardizem drip Wean as tolerated Initiate p.o. Cardizem if we can get her off norepinephrine Currently on heparin drip, consider oral anticoagulation initiation if it is obvious she will not need any procedures/dialysis catheter. 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 and 10 in p.m. Will need slow taper as an outpatient to ultimately 20 in the morning and 10 in the PM. Received 1 dose of Solu-Cortef on admission Status: Acute (11) Benign essential hypertension with target blood pressure below 140/90: Status: Acute (12) CHF (congestive heart failure): Status: Acute Qualifiers: Heart failure type: unspecified Heart failure chronicity: acute Qualified Code(s): I50.9 - Heart failure, unspecified (13) Obesity: Status: Acute (14) Adrenal insufficiency: Status: Acute (15) Chronic back pain: Status: Chronic (16) Anasarca: Holding diuretics today, restart when appropriate Markedly improved from last hospitalization Status: Acute Additional A&P Information A. fib with RVR. Medications are adjusted by cardiology. Appreciate input. Converted to sinus. Doing well with amiodarone and metoprolol. If she remains stable we might be able to discharge her home tomorrow with outpatient follow-up with cardiology. CHF acute exacerbation with normal EF. Stable probably due to #1. Continue Lasix and management of the A. fib. RODRIGUE on top of chronic kidney disease. Improved and stable renal function. Continue monitoring. Avoid nephrotoxic medications. Anemia. Stable. Continue monitoring. Chronic pain. Currently well controlled. Continue current management. Diabetes. Well-controlled currently. Continue current management. History of adrenal insufficiency. Well-controlled. Tapering IV steroids. We'll continue Synthroid. Infected foot ulcers. Doxycycline. Podiatry consult is requested. The patient will be seen by Dr. Moffett. I appreciate his help. Leukocytosis. Suspect UTI. UA is ordered. Will initiate antibiotics if confirmed. We will recheck CBC in the morning. Hypertension. Well-controlled. Continue current management. DVT prophylaxis. On Eliquis. The plan of care was discussed with the patient. She verbalized understanding and agreement. Discussed with the multidisciplinary team. Attestations Medical Necessity Statement*: The patient developed leukocytosis. Will need to rule out infection before considering discharge. 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[employer] Fwd Diagnoses Acute worsening of stage 3 chronic kidney disease N18.30 Nausea & vomiting R11.2 Atrial fibrillation with rapid ventricular response I48.91 RODRIGUE (acute kidney injury) N17.9 Pulmonary hypertension I27.20 Dyspnea R06.00 Dyspnea type: dyspnea on exertion Obstructive sleep apnea G47.33 Type 2 diabetes mellitus with other diabetic kidney complication E11.29 Pituitary macroadenoma with extrasellar extension D35.2 Central hypothyroidism E03.8 Benign essential hypertension with target blood pressure below 140/90 I10 CHF (congestive heart failure) I50.9 Heart failure type: unspecified Heart failure chronicity: acute Obesity E66.9 Adrenal insufficiency E27.40 Chronic back pain M54.9; G89.29 Anasarca R60.1
[2021-03-24 10:56] LABS: Add Urine Culture? Yes; Bacteria Urine TRACE /hpf; Bilirubin Urine Neg (Negative); Blood Urine 3+ (Negative); Glucose Urine UA 1+ (Normal); Ketones Urine Negative (Negative); Leukocyte Esterase Urine 2+ (Negative); Nitrate Urine Positive (Negative); Protein Urine Neg (Negative); RBC Urine 0-4 /hpf (0-2); Specific Gravity, Urine 1.015 (1.005-1.030); Squamous Epithelial Cell Urine RARE /hpf (0-5); Urine Appearance Cloudy (CLEAR); Urine Color Yellow (Yellow); Urobilinogen Urine Neg (Negative); pH Urine 8 (5-7)
--- NOTE | 2021-03-24 12:57 | P.CONIM_ITS ---
Providers/Reason For Consult Consulting Physician/Specialty*: Keenan Moffett D.P.M. Reason for Consult*: Cellulitis Attending Physician: Joel Bhatti Primary Care Provider: Piedad Sandhu MD History of Present Illness History of Present Illness Carolyn Alexander is a 70 year old female admitted to the hospital service for atrial fibrillation with rapid ventricular response. Patient has extensive cardiac history. Patient has stage III kidney disease, pituitary adenoma, adrenal insufficiency, hypothyroidism and morbid obesity. She reports a episode of right lower extremity cellulitis with significant swelling to the right leg, redness and drainage this occurred approximately 1 month ago this occurred when she was hospitalized at [facility] in [place]. States that she was discharged from [place] on oral doxycycline with improvement. She had pictures on her smart phone of her leg when it was red hot and swollen with drainage, in comparison her current clinical appearance is much improved. Review of Systems General: Reports: 10 or more systems reviewed and unremarkable except in HPI and below Const: Denies: fever(s) or chills Card: Denies: chest pain or palpitations Resp: Denies: productive cough GI: Denies: abdominal pain, nausea or vomiting : Denies: flank pain Musc: Reports: extremity swelling, joint pain, joint stiffness, limited range of motion and deformity Skin/Breast: Reports: nail changes and change in hair; Denies: rash or sores Neuro: Reports: numbness in extremities, sensory changes and difficulty walking Psych: Denies: suicidal ideation Charli/Lymph: Denies: easy bruising Meds/Allergies Home Medications and Allergies Home Medications Medication Instructions Recorded Confirmed Last Taken Type epinephrine 0.3 mg/0.3 mL 0.3 mg IM Q10M PRN #2 ea 04/20/20 03/19/21 Unknown Rx injection, auto-injector clotrimazole-betamethasone 1 1 applic TOPICAL BID 28 Days #45 g 11/11/20 03/19/21 01/17/21 Rx %-0.05 % topical cream cetirizine 10 mg tablet 10 mg PO QAM tab 01/04/21 03/19/21 02/11/21 History duloxetine 30 mg capsule,delayed 60 mg PO BEDTIME cap 01/04/21 03/19/21 02/10/21 History release Immune Vitamin C 1 tab PO DAILY 01/19/21 03/19/21 02/11/21 History Ozempic 1 mg SUBCUT Q7D 01/19/21 03/19/21 02/07/21 History levothyroxine 175 mcg PO QAM 01/19/21 03/19/21 02/11/21 History oxybutynin chloride 10 mg PO QAM 01/19/21 03/19/21 02/11/21 History diabetic supplies, miscellan. #1 ea 01/21/21 03/19/21 Unknown Rx flash glucose scanning reader #1 ea 01/21/21 03/19/21 Unknown Rx omeprazole 40 mg PO DAILY@0600 01/26/21 03/19/21 02/11/21 History miscellaneous medical supply #1 ea 02/05/21 03/19/21 Unknown Rx clonidine HCl 0.1 mg PO BID PRN 02/11/21 03/19/21 Unknown History pramipexole 0.25 mg PO BEDTIME 02/13/21 03/19/21 02/10/21 21:00 History allopurinol 100 mg tablet 100 mg PO DAILY PRN #30 tab 02/26/21 03/19/21 Unknown Rx gabapentin 300 mg PO BEDTIME@2000 02/28/21 03/19/21 Unknown History hydrocortisone See Rx Instructions .ROUTE .COMPLEX 02/28/21 03/19/21 Unknown History flash glucose sensor #1 ea 03/01/21 03/19/21 Unknown Rx blood sugar diagnostic #50 ea 03/04/21 03/19/21 Unknown Rx blood-glucose meter,continuous #1 ea 03/04/21 03/19/21 Unknown Rx lancets 30 gauge #100 ea 03/04/21 03/19/21 Unknown Rx bumetanide 2 mg PO DAILY #60 tab 03/09/21 03/19/21 Unknown Rx doxycycline monohydrate 100 mg PO BID #10 tab 03/09/21 03/19/21 Unknown Rx losartan 25 mg PO DAILY #15 tab 03/09/21 03/19/21 Unknown Rx metolazone 2.5 mg PO DAILY #30 tab 03/09/21 03/19/21 Unknown Rx polyethylene glycol 3350 17 g PO BID #60 ea 03/09/21 03/19/21 Unknown Rx sennosides-docusate sodium [Stool 2 tab PO BID #120 tab 03/09/21 03/19/21 Unknown Rx Softener-Laxative] spironolactone 12.5 mg PO DAILY #15 tab 03/09/21 03/19/21 Unknown Rx sucralfate 1 g PO AC&BEDTIME #120 tab 03/09/21 03/19/21 Unknown Rx fluconazole 150 mg PO DAILY@0800 03/19/21 03/19/21 Unknown History ondansetron HCl [Zofran] 4 mg PO Q6H PRN 03/19/21 03/19/21 Unknown History potassium chloride 20 meq PO DAILY 03/19/21 03/19/21 Unknown History Allergies Allergy/AdvReac Type Severity Reaction Status Date / Time acetaminophen [From Tylenol] Allergy ALGY-Hives Verified 02/11/21 12:56 azithromycin Allergy ALGY-Anaphy Verified 02/11/21 12:56 laxis benzocaine Allergy ALGY-Hives Verified 02/11/21 12:56 butamben [From Cetacaine] Allergy ALGY-Swell Verified 02/11/21 12:56 Lip/Tongue/Throat codeine Allergy ALGY-Hives Verified 02/11/21 12:56 fentanyl Allergy ALGY-Anaphy Verified 02/11/21 12:56 laxis hydrocodone [From Vicodin] Allergy ALGY-Hives Verified 02/11/21 12:56 hydromorphone [From Dilaudid] Allergy ADR-Vomitin Verified 02/11/21 12:56 g Iodinated Contrast Media Allergy ALGY-Anaphy Verified 02/11/21 12:56 laxis liothyronine Allergy ADR-Nausea Verified 02/11/21 12:56 meperidine [From Demerol] Allergy Unknown Verified 02/11/21 12:56 morphine Allergy ALGY-Anaphy Verified 02/11/21 12:56 laxis nitrofurantoin Allergy ALGY-Joint Verified 02/11/21 12:56 [From Macrobid] Pain oxycodone [From Percocet] Allergy ALGY-Hives Verified 02/11/21 12:56 penicillin V Allergy ALGY-Hives Verified 02/11/21 12:56 Penicillins Allergy Unknown Verified 02/11/21 12:56 Phenothiazines Allergy ALGY-Anaphy Verified 02/11/21 12:56 laxis pregabalin [From Lyrica] Allergy ADV-Weaknes Verified 02/11/21 12:56 s procaine Allergy ALGY-Hives Verified 02/11/21 12:56 prochlorperazine Allergy ALGY-Anaphy Verified 02/11/21 12:56 [From Compazine] laxis Sulfa (Sulfonamide Allergy Unknown Verified 02/11/21 12:56 Antibiotics) tetracaine [From Cetacaine] Allergy ALGY-Swell Verified 02/11/21 12:56 Lip/Tongue/Throat Current Medications Current Medications Generic Name Dose Route Start Last Admin Trade Name Freq PRN Reason Stop Dose Admin Alprazolam 0.5 mg 03/20/21 23:45 03/20/21 23:59 Alprazolam 0.5 Mg Tablet PO 0.5 mg TID PRN Administration anxiety Amiodarone HCl 400 mg 03/21/21 18:00 03/24/21 09:35 Amiodarone 200 Mg Tablet PO 400 mg BID RAMIRO Administration Apixaban 5 mg 03/21/21 18:00 03/24/21 09:35 Apixaban 5 Mg Tablet PO 5 mg BID RAMIRO Administration Doxycycline Monohydrate 100 mg 03/21/21 18:00 03/24/21 09:36 Doxycycline 100 Mg Tablet PO 100 mg BID RAMIRO Administration Protocol Duloxetine HCl 60 mg 03/20/21 22:30 03/24/21 09:36 Duloxetine 60 Mg Capsule PO 60 mg DAILY RAMIRO Administration Gabapentin 300 mg 03/21/21 20:00 03/23/21 22:08 Gabapentin 300 Mg Capsule PO 300 mg BEDTIME@2000 RAMIRO Administration Hydrocortisone 30 mg 03/19/21 09:00 03/20/21 08:22 Hydrocortisone 10 Mg Tablet PO 30 mg DAILY RAMIRO Administration Hydrocortisone 10 mg 03/19/21 21:00 03/19/21 20:39 Hydrocortisone 10 Mg Tablet PO 10 mg BEDTIME RAMIRO Administration Hydrocortisone 1 applic 03/20/21 13:01 03/23/21 09:54 Hydrocortisone 1% Cream 28 Gm TOPICAL 1 applic QID PRN Administration ITCHING Norepinephrine Bitartrate 4 mg 254 mls @ 0 mls/hr 03/19/21 02:00 03/20/21 16:00 / Dextrose IV Infused .Q0M RAMIRO Titration Protocol Per Protocol Levothyroxine Sodium 175 mcg 03/19/21 09:00 03/24/21 09:36 Levothyroxine 175 Mcg Tablet PO 175 mcg DAILY RAMIRO Administration Metoprolol Tartrate 50 mg 03/23/21 09:00 03/24/21 09:35 Metoprolol Tartrate 25 Mg Tablet PO 50 mg BID@0900,2100 RAMIRO Administration Ondansetron HCl 4 mg 03/19/21 02:27 03/20/21 12:04 Ondansetron 2 Mg/Ml Sdv 2 Ml IVP 4 mg Q6H PRN Administration NAUSEA AND VOMITING Oxybutynin Chloride 10 mg 03/19/21 09:00 03/24/21 09:36 Oxybutynin Chloride Xl 5 Mg Tablet PO 10 mg DAILY RAMIRO Administration Pantoprazole Sodium 40 mg 03/19/21 09:00 03/24/21 09:[address] 40 Mg Tablet PO 40 mg DAILY RAMIRO Administration Polyethylene Glycol 17 gm 03/21/21 09:00 03/24/21 09:40 Polyethylene Glycol 3350 Pkt 17 Gm PO 17 gm BID RAMIRO Administration Potassium Chloride 20 meq 03/23/21 01:45 03/23/21 03:24 Potassium Chloride Er 20 Meq Tablet PO 20 meq ONCE RAMIRO Administration Pramipexole Dihydrochloride 0.25 mg 03/21/21 21:00 03/23/21 22:09 Pramipexole 0.25 Mg Tablet PO 0.25 mg BEDTIME RAMIRO Administration Sucralfate 1 gm 03/19/21 07:00 03/24/21 06:03 Sucralfate 1 Gm Tablet PO 1 gm AC&BEDTIME RAMIRO Administration PFSH Acute PFSH: Medical History Adrenal insufficiency Anasarca Benign essential hypertension with target blood pressure below 140/90 Central hypothyroidism CHF (congestive heart failure) Chronic back pain Follows at pain clinic for periodic injections COVID-19 (~09/2020) Edema Facet arthritis, degenerative, lumbar spine History of anaphylaxis History of atrial fibrillation Intermittent, has not required long-term anticoagulation or focused treatment History of COVID-19 HTN (hypertension) Hyperaldosteronism 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 The following is a focused bilateral lower extremity exam. VASCULAR: Dorsalis pedis palpable +2 bilaterally, posterior tibial arteries +2. Capillary refill time less than 3 seconds to the distal hallux bilaterally. Calf is supple and nontender proximally and distally. Mild pitting edema to the lower extremities, +1 pitting test to the lower one third of the anterior tibial crest to the right. NEUROLOGICAL: Protective sensation intact to light touch. +2 Achilles reflex bilaterally. DERMATOLOGICAL: Skin lines present at the right lower extremity, there is no warmth or ascending lymphangitic streaking, no cellulitis or erythema to the right leg at this time. There is desquamation more prominent at the medial malleolus and medial leg and to a lesser degree at the lateral malleolus. No full-thickness wound, drainage or malodor present. MUSCULOSKELETAL: Muscle strength 5 out of 5 in all 3 cardinal planes to the bilateral foot and ankle. No pain with posterior calf squeeze bilaterally. Urinary Catheter Management^: [place]: Cath Placed During This Visit: yes Reason for Continuing Indwelling Catheter: Accurate Measurement of Urinary Output in Critically Ill Patients Urinary Catheter Date of Insertion: 03/18/21 Urinary Catheter Time of Insertion: 22:24 Data Micro: Micro: Microbiology 03/18/21 21:30 Blood Culture - Fi nal Blood NO GROWTH AFTER 5 DAYS 03/18/21 20:00 Blood Culture - Fi nal Blood NO GROWTH AFTER 5 DAYS A&P Assessment and plan (1) PVD (peripheral vascular disease): Status: Acute (2) Type 2 diabetes mellitus with other diabetic kidney complication: Status: Acute (3) Venous (peripheral) insufficiency: Status: Acute 70-year-old female admitted for atrial fibrillation with ventricular rapid response I was consulted for evaluation of lower extremity cellulitis and edema, this is significantly improved. On exam there are no open wounds. Significant skin tension lines as result of decreased edema appreciated, she has some desquamation at the distal leg more prominent medially however there is no wound or warmth or drainage. Patient continues to have leukocytosis, I do not believe that the lower extremity is the source of this, clinically she is much improved with normal skin tone, no erythema or warmth. Can de-escalate antibiotics for cellulitis as this is resolved. Applied a Unna boot with calamine and zinc oxide, Kerlix and Coban to the right lower extremity to be left on until next week. Patient can follow-up in podiatry clinic next week. Moving forward I am recommending gradient compression stockings to prevent recurrence of venous stasis ulcers. Also recommended elevating her feet while resting and avoid long periods of time in a gravity dependent position. Will follow up in podiatry clinic next week Coding Level of Care Code Acute Alterations Sewer for Duarte Fwd Diagnoses PVD (peripheral vascular disease) I73.9 Type 2 diabetes mellitus with other diabetic kidney complication E11.29 Venous (peripheral) insufficiency I87.2
[2021-03-24] MEDS: cefTRIAXone 1,000 MG in sodium chloride 0.9% (plus) 50 ML 100 MG IV (15:33)
[2021-03-24] MEDS: gabapentin 300 mg Capsule PO (21:08)
[2021-03-24] MEDS: pramipexole 0.25 mg Tablet PO (21:08)
[2021-03-24] MEDS: ALPRAZolam 0.5 mg Tablet PO (21:10)
[2021-03-25 03:29] VITALS: BP 122/61; PULSE 60; RESP 19; TEMP 37.2; O2SAT 90
[2021-03-25 05:06] LABS: Basophils % 0.1 %; Eosinophils # 0.2 10^3/uL (0.0-0.8); Eosinophils % 0.9 %; Lymphocytes # 1.7 10^3/uL (0.8-4.8); Lymphocytes % 10.8 %; Mean Corpuscular Hemoglobin 22.7 pg (28.0-34.0); Mean Corpuscular Volume 78.3 fl (81-99); Mean Platelet Volume 9.5 fL (7.4-10.4); Monocytes # 1.4 10^3/uL (0.2-0.9); Monocytes % 8.8 %; Neutrophils # 12.24 10^3/uL (1.8-7.7); Neutrophils % 76.6 %; Nucleated Red Blood Cells % 0.1 %; Platelet Count 314 10^3/cmm (130-400); Red Blood Count 3.96 10^6/uL (4.1-5.3); Red Cell Distribution Width 16.1 % (12.1-15.1)
[2021-03-25 05:48] VITALS: PULSE 61
[2021-03-25 05:50] VITALS: BP 122/61; PULSE 61; RESP 19; TEMP 37.2; O2SAT 90
[2021-03-25 06:04] LABS: C Reactive Protein 9.6 mg/L (0.0-4.9); Magnesium 1.9 mg/dL (1.7-2.3)
[2021-03-25 06:10] LABS: Procalcitonin 0.38 ng/mL (0-0.5)
[2021-03-25] MEDS: sucralfate 1 gm Tablet PO (06:10)
[2021-03-25] MEDS: levothyroxine 175 mcg Tablet PO (06:13)
[2021-03-25 06:18] LABS: Albumin Level 3.3 g/dL (3.5-5.2); Anion Gap 15.3 (5-19); Blood Urea Nitrogen 29 mg/dL (8-23); Calcium 8.4 mg/dL (8.5-10.5); Carbon Dioxide 26 mmol/L (22-29); Chloride 101 mmol/L (98-107); Glomerular Filtration Rate 32.1 mL/min (90-130); Glucose 121 mg/dL (65-115); Phosphorus 3.2 mg/dL (2.5-4.5); Potassium 3.3 mmol/L (3.5-5.1); Sodium 139 mmol/L (136-145)
[2021-03-25] MEDS: hydrocortisone 100 mg/2 mL SDV 50 MG IVP (06:23)
[2021-03-25 09:11] VITALS: BP 146/75; PULSE 66; RESP 19
[2021-03-25] MEDS: apixaban 5 mg Tablet PO (09:11)
[2021-03-25] MEDS: metoprolol tartrate 25 mg Tablet 50 MG PO (09:11)
[2021-03-25] MEDS: oxybutynin chloride XL 5 MG TABLET 10 MG PO (09:11)
[2021-03-25] MEDS: amiodarone 200 mg Tablet 400 MG PO (09:11)
[2021-03-25] MEDS: pantoprazole DR 40 mg Tablet PO (09:11)
[2021-03-25] MEDS: duloxetine 60 mg Capsule PO (09:11)
[2021-03-25] MEDS: potassium chloride ER 20 mEq Tablet PO (09:13)
--- NOTE | 2021-03-25 09:24 | PC.SOCIAL ---
IMM UPDATED IMM dated and initialed and copy given to patient
--- NOTE | 2021-03-25 09:42 | P.PN_ITS ---
Subjective Subjective: Interval history: Patient is remaining afebrile. Telemetry shows sinus rhythm. Denies any chest pain or chest tightness. No new symptoms. White cell count still remains elevated. Apparently her white cell count has been staying high for a while with some waxing and waning Medications: Reviewed: Yes Medication Review Details: Current Medications Amiodarone HCl (Amiodarone 200 Mg Tablet) 400 mg PO BID [facility] Last Admin: 03/25/21 09:11 Dose: 400 mg Documented by: Apixaban (Apixaban 5 Mg Tablet) 5 mg PO BID [facility] Last Admin: 03/25/21 09:11 Dose: 5 mg Documented by: Duloxetine HCl (Duloxetine 60 Mg Capsule) 60 mg PO DAILY [facility] Last Admin: 03/25/21 09:11 Dose: 60 mg Documented by: Gabapentin (Gabapentin 300 Mg Capsule) 300 mg PO BEDTIME@1999 [facility] Last Admin: 03/24/21 21:08 Dose: 300 mg Documented by: Hydrocortisone (Hydrocortisone 10 Mg Tablet) 30 mg PO DAILY [facility] Last Admin: 03/20/21 08:22 Dose: 30 mg Documented by: Hydrocortisone (Hydrocortisone 10 Mg Tablet) 10 mg PO BEDTIME [facility] Last Admin: 03/19/21 20:39 Dose: 10 mg Documented by: Hydrocortisone (Hydrocortisone 1% Cream 28 Gm) 1 applic TOPICAL QID PRN PRN Reason: ITCHING Last Admin: 03/23/21 09:54 Dose: 1 applic Documented by: Ceftriaxone Sodium 1,000 mg/ (Sodium Chloride) 50 mls @ 100 mls/hr IV Q24H [facility]; Protocol Last Infusion: 03/24/21 17:30 Dose: Infused Documented by: Levothyroxine Sodium (Levothyroxine 175 Mcg Tablet) 175 mcg PO DAILY [facility] Last Admin: 03/25/21 06:13 Dose: 175 mcg Documented by: Metoprolol Tartrate (Metoprolol Tartrate 25 Mg Tablet) 50 mg PO BID@0900,2100 [facility] Last Admin: 03/25/21 09:11 Dose: 50 mg Documented by: Ondansetron HCl (Ondansetron 2 Mg/Ml Sdv 2 Ml) 4 mg IVP Q6H PRN PRN Reason: NAUSEA AND VOMITING Last Admin: 03/20/21 12:04 Dose: 4 mg Documented by: Ondansetron HCl (Ondansetron 4 Mg Tablet) 4 mg PO Q6H PRN PRN Reason: Nausea Oxybutynin Chloride (Oxybutynin Chloride Xl 5 Mg Tablet) 10 mg PO DAILY [facility] Last Admin: 03/25/21 09:11 Dose: 10 mg Documented by: Pantoprazole Sodium (Pantoprazole Dr 40 Mg Tablet) 40 mg PO DAILY [facility] Last Admin: 03/25/21 09:11 Dose: 40 mg Documented by: Polyethylene Glycol (Polyethylene Glycol 3350 Pkt 17 Gm) 17 gm PO BID [facility] Last Admin: 03/25/21 09:14 Dose: Not Given Documented by: Pramipexole Dihydrochloride (Pramipexole 0.25 Mg Tablet) 0.25 mg PO BEDTIME [facility] Last Admin: 03/24/21 21:08 Dose: 0.25 mg Documented by: Sucralfate (Sucralfate 1 Gm Tablet) 1 gm PO AC&BEDTIME [facility] Last Admin: 03/25/21 06:10 Dose: 1 gm Documented by: Vitals/I&O/Wt Last Vital Signs Temp 98.9 F 03/25/21 05:50 Pulse 66 03/25/21 09:11 Resp 19 H 03/25/21 09:11 BP 146/75 03/25/21 09:11 Pulse Ox 90 03/25/21 05:50 03/24/21 03/25/21 03/25/21 22:59 06:59 14:59 Intake Total 850 / 1210 890 / 2100 Output Total 100 / 550 575 / 1125 Balance 750 / 660 315 / 975 Weight last 48 hrs Weight 363 lb Weight 362 lb Physical Exam Narrative: EXAM NARRATIVE: GENERAL: The patient is alert and oriented times three. Not in any acute distress. Morbidly obese HEENT: No significant pallor, icterus or lymphadenopathy.Oral cavity: There are no mucous membrane lesions. NECK: Trachea appears to be central. No masses noted. No JVD or thyromegaly appreciated. RESPIRATORY: Chest is symmetrical. No intercostals muscle retraction or any accessory muscle activation. There is no chest wall tenderness. Breath sounds are heard bilaterally. No rales or rhonchi heard. No evidence of any consolidation. The breath sounds are diminished in the bases. BREASTS: Deferred. HEART: The heart sounds are normal. No S3 or S4. No significant murmurs. No pericardial rub ABDOMEN: Abdomen is obese no vessel pulsations or distention. No tenderness. No organomegaly appreciated. Bowel sounds are normally heard. : Deferred. RECTAL: Deferred. LYMPHATIC: No lymphadenopathy noted in the neck or groin. EXTREMITIES: 1+ edema bilaterally in the lower extremities. MUSCULOSKELETAL: No acute joint deformities or swelling SKIN: There are no significant rashes or ecchymosis NEUROPSYCHIATRIC: The patient is alert and oriented x3. Appears to be in a good mood. No tremors or rigidity noted. Urinary Catheter Management^: [place]: Cath Placed During This Visit: yes, but has since been removed by the nurse Reason for Continuing Indwelling Catheter: Accurate Measurement of Urinary Output in Critically Ill Patients Urinary Catheter Date of Insertion: 03/18/21 Urinary Catheter Time of Insertion: 22:24 Date Urinary Catheter Removed: 03/24/21 Time Urinary Catheter Discontinued: 10:00 Data : 03/25/21 04:13 03/25/21 04:13 Other Labs: Laboratory Last Values WBC 16.0 10^3/uL (4.0-10.0) H 03/25/21 04:13 RBC 3.96 10^6/uL (4.1-5.3) L 03/25/21 04:13 Hgb 9.0 g/dL (11.5-15.3) L 03/25/21 04:13 Hct 31.0 % (37.0-47.0) L 03/25/21 04:13 MCV 78.3 fl (81-99) L 03/25/21 04:13 MCH 22.7 pg (28.0-34.0) L 03/25/21 04:13 MCHC 29.0 g/dL (30.0-36.0) L 03/25/21 04:13 RDW 16.1 % (12.1-15.1) H 03/25/21 04:13 Plt Count 314 10^3/cmm (130-400) 03/25/21 04:13 MPV 9.5 fL (7.4-10.4) 03/25/21 04:13 Neut % (Auto) 76.6 % 03/25/21 04:13 Lymph % (Auto) 10.8 % 03/25/21 04:13 [place] % (Auto) 8.8 % 03/25/21 04:13 Eos % (Auto) 0.9 % 03/25/21 04:13 Baso % (Auto) 0.1 % 03/25/21 04:13 Neut # (Auto) 12.24 10^3/uL (1.8-7.7) H 03/25/21 04:13 Lymph # (Auto) 1.7 10^3/uL (0.8-4.8) 03/25/21 04:13 [place] # (Auto) 1.4 10^3/uL (0.2-0.9) H 03/25/21 04:13 Eos # (Auto) 0.2 10^3/uL (0.0-0.8) 03/25/21 04:13 Baso # (Auto) 0.0 10^3/uL (0.0-0.1) 03/25/21 04:13 Nucleated RBC % (auto) 0.1 % 03/25/21 04:13 Nucleated RBCs # 0.0 /100WBC 03/25/21 04:13 APTT 38.8 SECONDS (23.9-36.7) H D 03/20/21 09:10 Sodium 139 mmol/L (136-145) 03/25/21 04:13 Potassium 3.3 mmol/L (3.5-5.1) L 03/25/21 04:13 Chloride 101 mmol/L (98-107) 03/25/21 04:13 Carbon Dioxide 26 mmol/L (22-29) 03/25/21 04:13 Anion Gap 15.3 (5-19) 03/25/21 04:13 BUN 29 mg/dL (8-23) H 03/25/21 04:13 Creatinine 1.6 mg/dL (0.5-0.9) H 03/25/21 04:13 GFR Calculation 32.1 mL/min (90-130) L 03/25/21 04:13 Glucose 121 mg/dL (65-115) H 03/25/21 04:13 POC Glucose 75 mg/dL (70-110) 03/18/21 20:40 Calculated Osmolality 286 mOsm/kg (285-295) 03/22/21 20:58 Lactate 2.5 mmol/L (0.5-2.2) H 03/18/21 20:00 Calcium 8.4 mg/dL (8.5-10.5) L 03/25/21 04:13 Phosphorus 3.2 mg/dL (2.5-4.5) 03/25/21 04:13 Magnesium 1.9 mg/dL (1.7-2.3) 03/25/21 04:13 Iron 21 ug/dL (37-145) L 03/20/21 20:49 TIBC 224 mcg/dl 03/20/21 20:49 % Saturation 9.3 % (20-50) L 03/20/21 20:49 Unsat Iron Binding 203 ug/dL (112-347) 03/20/21 20:49 Ferritin 95 ng/mL (15-150) 03/20/21 20:49 Total Bilirubin 0.3 mg/dL (0.15-1.2) 03/20/21 03:10 AST 25 U/L (0-32) 03/20/21 03:10 ALT 14 U/L (0-33) 03/20/21 03:10 Alkaline Phosphatase 77 IU/L (35-105) 03/20/21 03:10 Troponin T Baseline 35 ng/L (0-10) H 03/18/21 19:20 Troponin T 120 Minute 37.43 ng/L (0-10) H 03/18/21 21:30 Delta Troponin T 2.43 ABS# (0-10) 03/18/21 21:30 Troponin T Hi Sens 6Hr 38.42 ng/L (0-10) H 03/19/21 01:28 Troponin T Hi Sens 6Hr Delta 3.42 ng/L (0-12) 03/19/21 01:28 C-Reactive Protein 9.6 mg/L (0.0-4.9) H 03/25/21 04:13 NT-Pro-B Natriuret Pep 277 pg/mL (0-125) H 03/18/21 19:20 Total Protein 6.0 g/dL (6.6-8.7) L 03/20/21 03:10 Albumin 3.3 g/dL (3.5-5.2) L 03/25/21 04:13 Globulin 2.8 g/dL (1.3-4.6) 03/20/21 03:10 Lipase 16 U/L (13-60) 03/18/21 19:20 Procalcitonin 0.38 ng/mL (0-0.5) 03/25/21 04:13 TSH 2.00 uIU/mL (0.27-4.20) 03/18/21 19:20 Free T4 1.36 ng/dL (0.82-1.77) 03/20/21 03:10 Urine Color Yellow (Yellow) 03/24/21 09:45 Urine Appearance Cloudy (CLEAR) 03/24/21 09:45 Urine pH 8 (5-7) H 03/24/21 09:45 Ur Specific [place] 1.015 (1.005-1.030) 03/24/21 09:45 Urine Protein Neg (Negative) 03/24/21 09:45 Urine Glucose (UA) 1+ (Normal) H 03/24/21 09:45 Urine Ketones Negative (Negative) 03/24/21 09:45 Urine Blood 3+ (Negative) H 03/24/21 09:45 Urine Nitrate Positive (Negative) H 03/24/21 09:45 Urine Bilirubin Neg (Negative) 03/24/21 09:45 Urine Urobilinogen Neg mg/dL (Negative) 03/24/21 09:45 Ur Leukocyte Esterase 2+ (Negative) H 03/24/21 09:45 Urine RBC 0-4 /hpf (0-2) H 03/24/21 09:45 Urine WBC 5-10 /hpf (0-5) H 03/24/21 09:45 Ur Squamous Epith Cells Rare /hpf (0-5) 03/24/21 09:45 Amorphous Sediment Not Reportable 03/24/21 09:45 Urine Bacteria Trace /hpf (NONE) 03/24/21 09:45 A&P Assessment and plan (1) Atrial fibrillation with rapid ventricular response: Patient may continue on the amiodarone 400 mg daily for 10 days followed by 200 mg daily Status: Acute (2) Pulmonary hypertension: May continue on the current measures. Status: Acute (3) Obstructive sleep apnea: Continue on the current measures Status: Acute (4) Chronic kidney disease, stage 3a: Kidney function appears to be stable. May continue on the current treatment measures Status: Acute (5) Type 2 diabetes mellitus with other diabetic kidney complication: May continue on the current treatment. Aggressive management of the hyperglycemia would be appropriate Status: Acute (6) Benign essential hypertension with target blood pressure below 140/90: Currently normotensive. May continue on the current medications Status: Acute (7) Hypokalemia: Currently the potassium level is within normal limits. May continue on the current measures Status: Acute (8) Leukocytosis: Patient has a chronically elevated white cell count. Management as per the primary Status: Acute Qualifiers: Leukocytosis type: unspecified Qualified Code(s): D72.829 - Elevated white blood cell count, unspecified Additional A&P Information Morbid obesity KP/OHS Type 2 DM Adrenal insuffieciency Patient need to be [facility] at [facility] 1 week. May go home with amiodarone 400 mg daily for 10 days followed by 200 mg p.o. daily May continue on the metoprolol 50 mg p.o. twice daily Appointment the [facility] to be seen by the nurse practitioner in 1 week Appointment with me in the office in 3 weeks Attestations Medical Necessity Statement*: If the patient continues to remain stable, may be discharged home from a cardiac standpoint. Disposition as per the primary. Coding Level of Care Code Acute Ditch Cleaner for Chg Fwd History Detailed Exam Detailed Medical Decision Making Moderate Complexity Diagnoses Atrial fibrillation with rapid ventricular response I48.91 Pulmonary hypertension I27.20 Obstructive sleep apnea G47.33 Chronic kidney disease, stage 3a N18.31 Type 2 diabetes mellitus with other diabetic kidney complication E11.29 Benign essential hypertension with target blood pressure below 140/90 I10 Hypokalemia E87.6 Leukocytosis D72.829 Leukocytosis type: unspecified
--- NOTE | 2021-03-25 10:46 | P.DS_ITS ---
Discharge Providers Date of Admission: 03/18/21 21:51 Date of Discharge: March 25, 2021 Attending Provider at Admission: Petra Swan Attending Provider at Discharge: Joel Bhatti Primary Care Provider: Piedad Sandhu MD Diagnoses at Discharge Discharge Diagnosis (1) Atrial fibrillation with rapid ventricular response: Status: Acute (2) Pulmonary hypertension: Status: Acute (3) Obstructive sleep apnea: Status: Acute (4) Chronic kidney disease, stage 3a: Status: Acute (5) Type 2 diabetes mellitus with other diabetic kidney complication: Status: Acute (6) Benign essential hypertension with target blood pressure below 140/90: Status: Acute (7) Hypokalemia: Status: Acute (8) Leukocytosis: Status: Acute Qualifiers: Leukocytosis type: unspecified Qualified Code(s): D72.829 - Elevated white blood cell count, unspecified Reason for Visit Reason for Visit: N/V Hospital Course Hospital Course Please see patient's H&P, consult notes, progress notes and procedure notes for more details. Discharge diagnosis and problem list A. fib with RVR. Medications are adjusted by office sweeper Dr. Sellers. Appreciate input. Converted to sinus. Doing well with amiodarone and metoprolol. She is cleared for discharge. She is feeling much better and is eager to go home. Denies any chest pain, palpitations, dizziness, lightheadedness, weakness, sweats. She will continue close follow-up with Dr. Sellers, her primary care physician, Dr. Moffett as we discussed. She will come back to emergency room if she develops any worsening or any new symptoms. She verbalized understanding and agreement. CHF acute exacerbation with normal EF. Stable. Probably due to #1. Continue diuretic, cardiac diet, salt restriction. Follow-up with the office sweeper. Her losartan, spironolactone are on hold due to RODRIGUE which is currently improving. Her labs will need to be rechecked in about a week and this medications be resumed if possible. This decision will be deferred to the primary care team. RODRIGUE on top of chronic kidney disease. Improved and stable renal function. Continue monitoring. Avoid nephrotoxic medications. Anemia. Stable. Continue monitoring. Chronic pain. Currently well controlled. Diabetes. Well-controlled currently. Continue home medications and follow-up with the PCP History of adrenal insufficiency. Well-controlled. Will continue taking her home medications Venous stasis ulcers on the right lower extremity. Was seen and evaluated by Dr. Moffett who gave her instructions and recommendations. She will follow-up with him. We appreciate Dr. Moffett's input. Leukocytosis. Suspect UTI. Continue monitoring. UTI. Improving symptoms. Will be discharged on Omnicef. Hypertension. Well-controlled. Continue current management. DVT prophylaxis. On Eliquis. 45 minutes are spent on this discharge today. Physical Exam Narrative: EXAM NARRATIVE: Awake alert oriented x3. No acute distress. Mood and affect are appropriate. Responses are adequate. Skin is warm and dry. Moist mucous memories Neck supple. No JVD Eyes PERRL, extraocular muscles are intact Heart S1, S2, regular Abdomen is soft, obese, nontender, bowel sounds are present Lungs. Mildly decreased breath sounds bibasilarly. No crackles or wheezes. Extremities. Chronic venous stasis changes. Bilateral edema, significantly improved. No cyanosis. Dressings on the right lower extremity are dry and clean. Urinary Catheter Management^: [place]: Cath Placed During This Visit: yes, but has since been removed by the nurse Reason for Continuing Indwelling Catheter: Accurate Measurement of Urinary Output in Critically Ill Patients Urinary Catheter Date of Insertion: 03/18/21 Urinary Catheter Time of Insertion: 22:24 Date Urinary Catheter Removed: 03/24/21 Time Urinary Catheter Discontinued: 10:00 Discharge Data Data Completed and Pending: Completed Studies During Hospitalization Category Date Time Status CT chest abd pel wo con Urgent Cat Scan 03/18/21 20:57 Completed XR chest 1V anneliese ble [id number] Urgent Exams 03/18/21 19:18 Completed Pending at discharge Category Date Time Status Complete Blood Co unt w/Auto AM LABS Lab 03/26/21 04:00 Ordered Magnesium AM LABS Lab 03/26/21 04:00 Ordered Renal Function Pa david AM LABS Lab 03/26/21 04:00 Ordered Urine Culture Rou irene Lab 03/24/21 09:45 Received Labs from last 24 hours 03/25/21 03/25/21 03/25/21 04:13 04:13 04:13 WBC 16.0 H RBC 3.96 L Hgb 9.0 L Hct 31.0 L MCV 78.3 L MCH 22.7 L MCHC 29.0 L RDW 16.1 H Plt Count 314 MPV 9.5 Neut % (Auto) 76.6 Lymph % (Auto) 10.8 [place] % (Auto) 8.8 Eos % (Auto) 0.9 Baso % (Auto) 0.1 Neut # (Auto) 12.24 H Lymph # (Auto) 1.7 [place] # (Auto) 1.4 H Eos # (Auto) 0.2 Baso # (Auto) 0.0 Nucleated RBC % (a uto) 0.1 Nucleated RBCs # 0.0 Sodium 139 Potassium 3.3 L Chloride 101 Carbon Dioxide 26 Anion Gap 15.3 BUN 29 H Creatinine 1.6 H GFR Calculation 32.1 L Glucose 121 H Calcium 8.4 L Phosphorus 3.2 Magnesium 1.9 C-Reactive Protein 9.6 H Albumin 3.3 L Procalcitonin 0.38 Urine Color Urine Appearance Urine pH Ur Specific Gravit y Urine Protein Urine Glucose (UA) Urine Ketones Urine Blood Urine Nitrate Urine Bilirubin Urine Urobilinogen Ur Leukocyte Saida ase Urine RBC Urine WBC Ur Squamous Epith Cells Urine Bacteria 03/24/21 09:45 WBC RBC Hgb Hct MCV MCH MCHC RDW Plt Count MPV Neut % (Auto) Lymph % (Auto) [place] % (Auto) Eos % (Auto) Baso % (Auto) Neut # (Auto) Lymph # (Auto) [place] # (Auto) Eos # (Auto) Baso # (Auto) Nucleated RBC % (a uto) Nucleated RBCs # Sodium Potassium Chloride Carbon Dioxide Anion Gap BUN Creatinine GFR Calculation Glucose Calcium Phosphorus Magnesium C-Reactive Protein Albumin Procalcitonin Urine Color Yellow Urine Appearance Cloudy Urine pH 8 H Ur Specific Gravit y 1.015 Urine Protein Neg Urine Glucose (UA) 1+ H Urine Ketones Negative Urine Blood 3+ H Urine Nitrate Positive H Urine Bilirubin Neg Urine Urobilinogen Neg Ur Leukocyte Saida ase 2+ H Urine RBC 0-4 H Urine WBC 5-10 H Ur Squamous Epith Cells Rare Urine Bacteria Trace Vitals: Last Vital Signs Temp 98.9 F 03/25/21 05:50 Pulse 66 03/25/21 09:11 Resp 19 H 03/25/21 09:11 BP 146/75 03/25/21 09:11 Pulse Ox 90 03/25/21 05:50 Discharge Plan Discharge Patient Disposition: Home Health Service Condition: Stable Prescriptions: New Eliquis 5 mg Tablet 5 mg PO BID Qty: 60 RF: 0 metoprolol tartrate 25 mg Tablet 50 mg PO BID@0900,2100 Qty: 60 RF: 0 amiodarone 200 mg tablet 400 mg PO DAILY Qty: 60 RF: 0 cefdinir 300 mg capsule 300 mg PO BID 10 Days Qty: 10 RF: 0 Continued epinephrine [EpiPen 2-Nabeel] 0.3 mg/0.3 mL auto-injector 0.3 mg IM Q10M PRN (Reason: anaphylaxis) Qty: 2 RF: 3 duloxetine [Cymbalta] 30 mg capsule,delayed release(DR/EC) 60 mg PO BEDTIME RF: 0 (DME) miscellaneous medical supply Misc See Rx Instructions .Route Qty: 1 RF: 0 clotrimazole-betamethasone 1-0.05 % cream 1 applic topical BID 28 Days Qty: 45 RF: 1 (DME) FreeStyle Daniel 2 Sensor Kit See Rx Instructions .Route Qty: 1 RF: 3 (DME) FreeStyle Daniel 2 [place] Misc See Rx Instructions .Route Qty: 1 RF: 0 allopurinol 100 mg tablet 100 mg PO DAILY PRN (Reason: GOUT) Qty: 30 RF: 1 (DME) Pharmacist Choice Strip See Rx Instructions .Route Qty: 50 RF: 2 (DME) blood-glucose meter,continuous Misc See Rx Instructions .Route Qty: 1 RF: 0 (DME) lancets [Easy Touch Lancets] 30 gauge misc See Rx Instructions .Route Qty: 100 RF: 1 levothyroxine 175 mcg tablet 175 mcg PO QAM RF: 0 Ozempic 1 mg/dose (2 mg/1.5 mL) pen injector 1 mg SUBCUT Q7D RF: 0 oxybutynin chloride 10 mg tablet extended release 24hr 10 mg PO QAM RF: 0 Immune Vitamin C 1 tab PO DAILY RF: 0 (DME) diabetic supplies, miscellan. Misc See Rx Instructions .Route Qty: 1 RF: 0 omeprazole 40 mg capsule,delayed release(DR/EC) 40 mg PO DAILY@0600 RF: 0 hydrocortisone 5 mg tablet See Rx Instructions .ROUTE .COMPLEX RF: 0 gabapentin 300 mg capsule 300 mg PO BEDTIME@2000 RF: 0 polyethylene glycol 3350 17 gram Powder In Packet 17 g PO BID Qty: 60 RF: 0 sucralfate 1 gram Tablet 1 g PO AC&BEDTIME Qty: 120 RF: 0 sennosides-docusate sodium [Stool Softener-Laxative] 8.6-50 mg Tablet 2 tab PO BID Qty: 120 RF: 0 bumetanide 1 mg Tablet 2 mg PO DAILY Qty: 60 RF: 0 clonidine HCl 0.1 mg tablet 0.1 mg PO BID PRN (Reason: Blood Pressure) RF: 0 pramipexole 0.125 mg tablet 0.25 mg PO BEDTIME RF: 0 fluconazole 150 mg Tablet 150 mg PO DAILY@0800 RF: 0 Zofran 4 mg Tablet 4 mg PO Q6H PRN (Reason: Nausea) RF: 0 Held losartan 50 mg Tablet 25 mg PO DAILY Qty: 15 RF: 0 Hold Instructions: Resume on 04/02/21. If okay with your primary care physician and Dr. Sellers after reviewing your labs. metolazone 5 mg Tablet 2.5 mg PO DAILY Qty: 30 RF: 0 Hold Instructions: Resume on 04/01/21. if ok with your docs spironolactone 25 mg Tablet 12.5 mg PO DAILY Qty: 15 RF: 0 Hold Instructions: Resume on 04/01/21. resume if OK with dr Sellers and your PCP aftre reviewing your labs Discontinued cetirizine 10 mg tablet 10 mg PO QAM RF: 0 doxycycline monohydrate 100 mg Tablet 100 mg PO BID Qty: 10 RF: 0 potassium chloride 20 mEq Tablet Extended Release 20 meq PO DAILY RF: 0 Discharge Orders: Discharge Order (Routine); Ordered 03/25/21 Ordered By: Joel Bhatti Other Ambulatory Orders: Basic Metabolic Panel (Routine) Timeframe: 1 Week Facility: [facility] - Location: Lab - Main Lab Ordered By: Joel Bhatti Complete Blood Count w/Auto (Routine) Timeframe: 1 Week Location: Determined by Patient Ordered By: Joel Bhatti Referrals: Chris Sellers MD [Physician] - 2 weeks (See heart clinic nurse in 1 week before appointment with Dr. Sellers) Keenan Moffett DPM [Physician] - 7-10 days Piedad Sandhu MD [Primary Care Provider] - 4-7 days Discharge Diet: Cardiac Discharge Activity: Increase activity as tolerated Patient Instructions: A-fib (Atrial Fibrillation) (DC), Leg Edema (ED), Low- Sodium Diet (DC), Left-sided and Right-sided Heart Failure (DC), Opioid Safety Activity Restrictions/Additional Instructions: Please come back to emergency room if you develop any dizziness, lightheadedness, weakness, falls, palpitations, chest pain, diaphoresis, shortness of breath, cough, fever or chills, increased swelling, diarrhea, problems with urination, nausea or vomiting or any other new symptoms. Please follow-up with your doctors as we discussed. Discharge Attestations Time Spent in Discharge Care*: greater than 30 min Quality Metrics Clinical Quality Measures During this hospital stay, did patient experience: None Coding Level of Care Code Acute Chg FW DC note Diagnoses Atrial fibrillation with rapid ventricular response I48.91 Pulmonary hypertension I27.20 Obstructive sleep apnea G47.33 Chronic kidney disease, stage 3a N18.31 Type 2 diabetes mellitus with other diabetic kidney complication E11.29 Benign essential hypertension with target blood pressure below 140/90 I10 Hypokalemia E87.6 Leukocytosis D72.829 Leukocytosis type: unspecified
--- NOTE | 2021-03-25 10:57 | PC.NURSE ---
called to new rx meds to [facility] employee pharmacy pt wants her new meds delivered meds to bed.
[2021-03-25 12:00] VITALS: BP 134/75
--- NOTE | 2021-03-25 12:48 | PC.OT ---
OT EVALUATION ORDERS RECEIVED. HOWEVER, PATIENT IS SCHEDULED FOR DISCHARGE TODAY. NO EVAL COMPLETED.
[2021-03-25 13:07] VITALS: BP 134/75; PULSE 61; RESP 18; TEMP 36.6; O2SAT 95
--- NOTE | 2021-03-25 14:14 | PC.NURSE ---
Discharge Note Patient discharged to home with home health services via wheelchair accompanied by . Discharge instructions reviewed with patient and/or medical center representative. Educated pt to keep her follow-up appointments and new meds actions, possible side effects and [facility] pharmacy medications and/or prescriptions provided. Belongings/home medications returned.
== END 2021-03-25 13:31 | disposition home health service (06) | DRG 308 ==
LOC: ER 21:50 → CSU 22:11 → ICU 22:45 → CSU 03-23 19:54
PROVIDERS: Internal Medicine; Internal Medicine Cardiovascular Disease; Admitting Provider Hospitalist; Emergency Provider Emergency Medicine; PCP Family Medicine; Visit Provider Internal Medicine
DX: I48.91 Unspecified atrial fibrillation (principal); I50.31 Acute diastolic (congestive) heart failure; E89.6 Postprocedural adrenocortical (-medullary) hypofunction; I13.0 Hypertensive heart and chronic kidney disease with heart failure and stage 1 through stage 4 chronic kidney disease, or unspecified chronic kidney disease; E66.2 Morbid (severe) obesity with alveolar hypoventilation; Z68.44 Body mass index [BMI] 60.0-69.9, adult; N39.0 Urinary tract infection, site not specified; N17.9 Acute kidney failure, unspecified; E03.9 Hypothyroidism, unspecified; N18.31 Chronic kidney disease, stage 3a; E11.22 Type 2 diabetes mellitus with diabetic chronic kidney disease; E89.3 Postprocedural hypopituitarism; I95.9 Hypotension, unspecified; G89.29 Other chronic pain; Z86.16 Personal history of COVID-19; M47.896 Other spondylosis, lumbar region; Z96.82 Presence of neurostimulator; D63.1 Anemia in chronic kidney disease; E87.6 Hypokalemia; Z79.4 Long term (current) use of insulin; I87.8 Other specified disorders of veins; E86.0 Dehydration; I27.20 Pulmonary hypertension, unspecified; Z91.19 Patient's noncompliance with other medical treatment and regimen; E11.42 Type 2 diabetes mellitus with diabetic polyneuropathy; E11.51 Type 2 diabetes mellitus with diabetic peripheral angiopathy without gangrene; E83.42 Hypomagnesemia; Z87.891 Personal history of nicotine dependence
CPT/HCPCS: 36415; 36416; 51702; 71045; 71250; 74176; 80048; 80053; 80069; 81001; 81003; 82728; 82962; 83540; 83550; 83605; 83690; 83735; 83880; 84145; 84439; 84443; 84484; 85025; 85049; 85730; 86140; 87040; 87077; 87086; 87186; 93005; 94664; 96365; 96366; 96367; 96375; 96376; 97110; 97116; 97163; 97530; 99285; J0696; J1160; J1644; J1720; J1940; J2405; J3475; J3480; J3490; J7030; J8499

== ENCOUNTER 2021-03-31 06:00 | Outpatient (CLI) | payer MEDICARE, OTHER, SELFPAY | END 2021-03-31 06:01 | disposition home or self-care (01) | LOC: LAB 12-20 11:48 | PROVIDERS: PCP Nurse Practitioner Family; Visit Provider Internal Medicine Critical Care Medicine | DX: E87.6 Hypokalemia (principal); N18.30 Chronic kidney disease, stage 3 unspecified | CPT/HCPCS: 80053; 81003; 85025 ==

== ENCOUNTER → 2021-04-05 11:44 | Outpatient (BNVA) | payer MEDICARE, OTHER, SELFPAY | PROVIDERS: PCP Family Medicine; Visit Provider Nurse Practitioner Family | DX: N18.30 Chronic kidney disease, stage 3 unspecified (principal); I50.9 Heart failure, unspecified | CPT/HCPCS: 80048 ==

== ENCOUNTER 2021-04-11 11:36 | Inpatient (IN) | payer MEDICARE, OTHER, SELFPAY ==
--- NOTE | 2021-04-11 11:47 | XRR_ITS ---
PROCEDURE INFORMATION: Exam: XR Chest Exam date and time: 04/11/2021 11:47 AM Age: 70 years old Clinical indication: Dyspnea TECHNIQUE: Imaging protocol: XR of the chest. Views: 1 view. COMPARISON: CT chest abd pel wo con 03/18/2021 9:13 PM FINDINGS: Lungs: Unremarkable. No consolidation. Pleural spaces: Unremarkable. No pleural effusion. No pneumothorax. Heart/Mediastinum: Unremarkable. No cardiomegaly. Bones/joints: Unremarkable. XR/XR chest 1V portable [id number] IMPRESSION: No acute findings.
--- NOTE | 2021-04-11 11:47 | ECG_ITS ---
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1950 Requested By: Diego Velarde Order Number: [id number] Reading MD: MARK JACKSON Measurements Intervals [place] Rate: 75 P: 54 AR: 144 QRS: 3 QRSD: 100 T: 37 QT: 403 QTc: 452 Interpretive Statements SINUS RHYTHM MODERATE T-WAVE ABNORMALITY, CONSIDER ANTERIOR ISCHEMIA [-0.1+ mV T-WAVE IN V3/V4] Compared to ECG 03/23/2021 07:57:59 T-wave abnormality now present Possible ischemia now present ST (T wave) deviation no longer present Electronically Signed On 04-11-2021 17:47:21 [employer]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
--- NOTE | 2021-04-11 11:50 | W.ED.ABDPA2 ---
HPI - Abdominal Pain General: Chief Complaint: Nausea/Vomiting/Diarrhea Stated Complaint: N/V/D; LOW O2 SATS Time Seen by Provider: 04/11/21 11:47 Source: patient and EMS Mode of arrival: EMS Limitations: no limitations History of Present Illness: HPI narrative: Patient with plaints of diffuse intermittent abdominal cramping associated with moderate severe diarrhea for 3 days. Patient with associated nausea vomiting since yesterday. Patient denies being on any antibiotics. She states she was hospitalized about 3 weeks ago for atrial fibrillation that was converted to normal sinus rhythm. She is taking Eliquis 2.5 mg twice a day but last dose was 3 days ago. Patient is also supposed to be on a potassium supplement due to persistent hypokalemia. She states her last dose of potassium was on . According to EMS her oxygen saturation was around 80% when they picked her up from home. Oxygen saturation 100% on 2 L by nasal cannula now. Telemetry shows normal sinus rhythm with heart rate around 88. She denies any fever. She denies any blood in her stool. She states she is still nauseated. She states she had large amount of diarrhea today. She states she has taken Imodium 2 days ago and Maalox without relief. MD elicited complaint: abdominal pain Pertinent past history: none Onset (ago): day(s) (3) Pain Consistency: intermittent Location: Diffuse Severity: mild Quality: cramping Radiation: none Migration to: no migration Exacerbating factors: nothing Relieving factors: nothing Associated Symptoms: Reports GI cramping, diarrhea, nausea and vomiting; Denies chills, coffee ground emesis, constipation, fever(s), hematuria, hematemesis and melena Related Data: Date of Last Menstrual Period: 01/22/21 Review of Systems Const: Denies: fever(s) or chills Eyes: Denies: change in vision ENMT: Denies: throat pain Card: Denies: chest pain or palpitations Resp: Denies: dyspnea or wheezing GI: Reports: abdominal pain, nausea, vomiting, diarrhea and GI cramping; Denies: hematemesis, coffee ground emesis, constipation or melena : Denies: hematuria Musc: Denies: neck pain or back pain Skin/Breast: Denies: rash or pruritus Neuro: Denies: headache(s) or numbness in extremities Psych: Denies: anxiety Charli/Lymph: Denies: enlarged lymph nodes PFSH ED PFSH: Medical History Adrenal insufficiency Anasarca Benign essential hypertension with target blood pressure below 140/90 Central hypothyroidism CHF (congestive heart failure) Chronic back pain Follows at pain clinic for periodic injections COVID-19 (~09/2020) Edema Facet arthritis, degenerative, lumbar spine History of anaphylaxis History of atrial fibrillation Intermittent, has not required long-term anticoagulation or focused treatment History of COVID-19 HTN (hypertension) Hyperaldosteronism 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 Current gender identity: Female Female Reproductive History: Date of last menstrual period: 01/22/21 Physical Exam Const: COMMON NORMALS: no acute distress, patient oriented x3, no limitations, alert and well nourished EXAM LIMITATIONS: no altered mental status GENERAL APPEARANCE: cooperative NUTRITIONAL APPEARANCE: obese HENMT: COMMON NORMALS: normocephalic and atraumatic HEAD & SCALP: normocephalic and atraumatic FACE & SINUS: normal facial exam Eye: COMMON NORMALS: EOMs intact bilaterally Neck/C-Spine: COMMON NORMALS: full ROM, no lymphadenopathy, supple and no meningeal signs GENERAL: Yes normal visual inspection Lymph: LYMPHATIC: no lymphadenopathy noted Chest: COMMONS NORMALS: normal inspection of the chest and normal palpation of entire chest wall CHEST: No Ecchymosis present and No rash Resp: COMMON NORMALS: normal respiratory effort, No retractions and clear to auscultation bilaterally EFFORT & INSPECTION: No respiratory distress AUSCULTATION: clear to auscultation bilaterally Cardio: COMMON NORMALS: regular rate, regular rhythm and Peripheral pulses 2+ throughout JUGULAR VENOUS DISTENTION: no JVD RATE: regular rate RHYTHM: regular rhythm PERIPHERAL PULSES: Peripheral pulses 2+ throughout GI: COMMON NORMALS: Normal to inspection, nondistended, normoactive bowel sounds present (Morbid obesity. Nontender to palpation), Soft to palpation, non-tender, No hepatosplenomegaly present, no masses and no bruits PALPATION: Yes Soft to palpation and Yes No hepatosplenomegaly present : COMMON NORMALS: Yes no CVA tenderness BLADDER/KIDNEY EXAM: Yes no CVA tenderness Back/Pelvis: COMMON NORMALS: no CVA tenderness Extremity: COMMON NORMALS: full ROM and capillary refill normal NARRATIVE EXTREMITY EXAM: 3+ pitting edema lower extremities bilaterally. Neuro: COMMON NORMALS: patient oriented x3, CN's II-XII intact bilaterally, no focal motor deficits and no sensory deficits noted SENSORIUM/ORIENTATION: Yes alert MENINGEAL SIGNS: Yes no meningeal signs Psych: COMMON NORMALS: mental status grossly normal and Normal thought process present THOUGHT PROCESS: Normal thought process present Skin: COMMON NORMALS: no rashes or lesions noted and no wounds GENERAL SKIN EXAM: no rashes or lesions noted Course Vital Signs: Vital signs: Vital Signs Temperature 98.4 F 04/11/21 11:51 Pulse Rate 84 04/11/21 11:51 Respiratory Rate 16 04/11/21 11:51 Blood Pressure 127/77 04/11/21 11:51 Pulse Oximetry 98 04/11/21 11:51 MDM - Abdominal Pain MDM Narrative: Medical decision making narrative: [id number]: Discussed case with hospitalist Dr. Lora. Will place in observation to the medical surgical bed. Differential Diagnosis: Differential diagnosis abdominal pain: Likely abdominal pain and gastroenteritis Lab Data: Attestation: I reviewed the patient's lab results. Labs: Lab Results 04/11/21 04/11/21 04/11/21 12:27 12:27 12:40 WBC 16.3 10^3/uL H 10 ^3/uL (4.0-10.0) RBC 4.68 10^6/uL 10^6 /uL (4.1-5.3) Hgb 10.4 g/dL L g/dL (11.5-15.3) Hct 36.9 % L % (37.0-47.0) MCV 78.8 fl L fl (81-99) MCH 22.2 pg L pg (28.0-34.0) MCHC 28.2 g/dL L g/dL (30.0-36.0) RDW 16.1 % H % (12.1-15.1) Plt Count 304 10^3/cmm 10^3 /cmm (130-400) MPV 10.8 fL H fL (7.4-10.4) Neut % (Auto) 74.9 % % Lymph % (Auto) 12.5 % % Haakon % (Auto) 7.5 % % Eos % (Auto) 4.0 % % Baso % (Auto) 0.4 % % Neut # (Auto) 12.22 10^3/uL H 1 0^3/uL (1.8-7.7) Lymph # (Auto) 2.0 10^3/uL 10^3/ uL (0.8-4.8) Haakon # (Auto) 1.2 10^3/uL H 10^ 3/uL (0.2-0.9) Eos # (Auto) 0.7 10^3/uL 10^3/ uL (0.0-0.8) Baso # (Auto) 0.1 10^3/uL 10^3/ uL (0.0-0.1) Nucleated RBC % (a uto) 0 % % Nucleated RBCs # 0.0 /100WBC /100W BC Sodium 137 mmol/L mmol/L (136-145) Potassium 3.8 mmol/L mmol/L (3.5-5.1) Chloride 99 mmol/L mmol/L (98-107) Carbon Dioxide 24 mmol/L mmol/L (22-29) Anion Gap 17.8 (5-19) BUN 8 mg/dL mg/dL (8-23) Creatinine 1.2 mg/dL H mg/dL (0.5-0.9) GFR Calculation 44.7 mL/min L mL/ min (90-130) Glucose 115 mg/dL mg/dL (65-115) Calculated Osmolal ity 283 mOsm/kg L mOs m/kg (285-295) Calcium 8.7 mg/dL mg/dL (8.5-10.5) Nasal Influ A H1 2 009 PCR Coronavirus 229E ( PCR) Not detected (NOT DETECT) Influenza A (H1) P CR Influenza A (H3) P CR Influenza Type A ( PCR) Influenza Type B ( PCR) SARS-CoV-2 (PCR) Not detected (NOT DETECT) 04/11/21 12:40 WBC RBC Hgb Hct MCV MCH MCHC RDW Plt Count MPV Neut % (Auto) Lymph % (Auto) Haakon % (Auto) Eos % (Auto) Baso % (Auto) Neut # (Auto) Lymph # (Auto) Haakon # (Auto) Eos # (Auto) Baso # (Auto) Nucleated RBC % (a uto) Nucleated RBCs # Sodium Potassium Chloride Carbon Dioxide Anion Gap BUN Creatinine GFR Calculation Glucose Calculated Osmolal ity Calcium Nasal Influ A H1 2 009 PCR Not detected (NOT DETECT) Coronavirus 229E ( PCR) Influenza A (H1) P CR Not detected (NOT DETECT) Influenza A (H3) P CR Not detected (NOT DETECT) Influenza Type A ( PCR) Not detected (NOT DETECT) Influenza Type B ( PCR) Not detected (NOT DETECT) SARS-CoV-2 (PCR) Imaging Data ^: CXR: Attestation: I personally reviewed and interpreted this imaging study as follows: My impression: Portable chest x-ray shows nothing acute. Radiologist's impression: PROCEDURE INFORMATION: Exam: XR Chest Exam date and time: 04/11/2021 11:47 AM Age: 70 years old Clinical indication: Dyspnea TECHNIQUE: Imaging protocol: XR of the chest. Views: 1 view. COMPARISON: CT chest abd pel wo con 03/18/2021 9:13 PM FINDINGS: Lungs: Unremarkable. No consolidation. Pleural spaces: Unremarkable. No pleural effusion. No pneumothorax. Heart/Mediastinum: Unremarkable. No cardiomegaly. Bones/joints: Unremarkable. XR/XR chest 1V portable [id number] IMPRESSION: No acute findings. Dictated By:Kaiden Starr DOSigned By:Kaiden Starr Date/Time:04/11/[address] Abd/Pel: Radiologist's impression: PROCEDURE INFORMATION: Exam: CT Abdomen And Pelvis Without Contrast Exam date and time: 04/11/2021 1:33 PM Age: 70 years old Clinical indication: Abdominal pain; Generalized; Additional info: Generalized abdominal pain, severe diarrhea, contrast allergy TECHNIQUE: Imaging protocol: Computed tomography of the abdomen and pelvis without contrast. Radiation optimization: All CT scans at this facility use at least one of these dose optimization techniques: automated exposure control; mA and/or kV adjustment per patient size (includes targeted exams where dose is matched to clinical indication); or iterative reconstruction. COMPARISON: CT chest abd pel wo con 03/18/2021 9:13 PM RADIATION DOSE METRICS: Total DLP (mGy-cm): 1296.06 FINDINGS: Tubes, catheters and devices: Stable right-sided pain management/neurostimulator device in place. Liver: Markedly fatty liver measuring 9 Hounsfield units in density. Gallbladder and bile ducts: Normal. No calcified stones. No ductal dilation. Pancreas: Normal. No ductal dilation. Spleen: Normal. No splenomegaly. Adrenal glands: Normal. No mass. Kidneys and ureters: Normal. No hydronephrosis. Stomach and bowel: Unremarkable. No obstruction. No mucosal thickening. Appendix: No evidence of appendicitis. Intraperitoneal space: Unremarkable. No free air. No significant fluid collection. Vasculature: Calcification of the abdominal aorta and/or iliac arteries consistent with atherosclerotic vessel disease. Calcification of the abdominal aorta and/or iliac arteries consistent with atherosclerotic vessel disease. One or more calcified pelvic phleboliths. Lymph nodes: Unremarkable. No enlarged lymph nodes. Urinary bladder: Unremarkable as visualized. Reproductive: Stable hysterectomy. Bones/joints: Unremarkable. No acute fracture. Soft tissues: Unremarkable. CT/CT abdomen pelvis wo con [id number] IMPRESSION: Markedly fatty liver measuring 9 Hounsfield units in density. Dictated By:Giovani London MDSigned By:Giovani London MDSigned Date/Time:04/11/21 1434 EKG Data ^: EKG 1: Attestation: I personally reviewed and interpreted this EKG as follows: EKG interpretation date: 04/11/21 EKG interpretation time: 12:34 Ischemic changes: non-specific ST-T wave changes Interpretation: Normal sinus rhythm with nonspecific ST-T changes, left axis, normal RI interval, normal QT interval, normal T wave. Normal QRS. 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
[2021-04-11 11:51] VITALS: BP 127/77; PULSE 84; RESP 16; TEMP 36.9; O2SAT 98
[2021-04-11] MEDS: ondansetron 2 mg/ML SDV 2 mL 4 MG IVP ×2 (12:15→14:03)
[2021-04-11 12:37] LABS: Basophils # 0.1 10^3/uL (0.0-0.1); Basophils % 0.4 %; Eosinophils # 0.7 10^3/uL (0.0-0.8); Hematocrit 36.9 % (37.0-47.0); Hemoglobin 10.4 g/dL (11.5-15.3); Lymphocytes % 12.5 %; Mean Corpuscular HGB Conc 28.2 g/dL (30.0-36.0); Mean Corpuscular Hemoglobin 22.2 pg (28.0-34.0); Mean Corpuscular Volume 78.8 fl (81-99); Mean Platelet Volume 10.8 fL (7.4-10.4); Monocytes # 1.2 10^3/uL (0.2-0.9); Monocytes % 7.5 %; Neutrophils # 12.22 10^3/uL (1.8-7.7); Neutrophils % 74.9 %; Nucleated Red Blood Cells % 0 %; Platelet Count 304 10^3/cmm (130-400); Red Blood Count 4.68 10^6/uL (4.1-5.3); Red Cell Distribution Width 16.1 % (12.1-15.1); White Blood Count 16.3 10^3/uL (4.0-10.0)
[2021-04-11 13:17] LABS: Blood Urea Nitrogen 8 mg/dL (8-23); Calcium 8.7 mg/dL (8.5-10.5); Carbon Dioxide 24 mmol/L (22-29); Chloride 99 mmol/L (98-107); Glomerular Filtration Rate 44.7 mL/min (90-130); Glucose 115 mg/dL (65-115); Osmolality Calculated 283 mOsm/kg (285-295); Sodium 137 mmol/L (136-145)
[2021-04-11 13:30] LABS: Anion Gap 17.8 (5-19); Potassium 3.8 mmol/L (3.5-5.1)
--- NOTE | 2021-04-11 13:33 | CTR_ITS ---
PROCEDURE INFORMATION: Exam: CT Abdomen And Pelvis Without Contrast Exam date and time: 04/11/2021 1:33 PM Age: 70 years old Clinical indication: Abdominal pain; Generalized; Additional info: Generalized abdominal pain, severe diarrhea, contrast allergy TECHNIQUE: Imaging protocol: Computed tomography of the abdomen and pelvis without contrast. Radiation optimization: All CT scans at this facility use at least one of these dose optimization techniques: automated exposure control; mA and/or kV adjustment per patient size (includes targeted exams where dose is matched to clinical indication); or iterative reconstruction. COMPARISON: CT chest abd pel wo con 03/18/2021 9:13 PM RADIATION DOSE METRICS: Total DLP (mGy-cm): 1296.06 FINDINGS: Tubes, catheters and devices: Stable right-sided pain management/neurostimulator device in place. Liver: Markedly fatty liver measuring 9 Hounsfield units in density. Gallbladder and bile ducts: Normal. No calcified stones. No ductal dilation. Pancreas: Normal. No ductal dilation. Spleen: Normal. No splenomegaly. Adrenal glands: Normal. No mass. Kidneys and ureters: Normal. No hydronephrosis. Stomach and bowel: Unremarkable. No obstruction. No mucosal thickening. Appendix: No evidence of appendicitis. Intraperitoneal space: Unremarkable. No free air. No significant fluid collection. Vasculature: Calcification of the abdominal aorta and/or iliac arteries consistent with atherosclerotic vessel disease. Calcification of the abdominal aorta and/or iliac arteries consistent with atherosclerotic vessel disease. One or more calcified pelvic phleboliths. Lymph nodes: Unremarkable. No enlarged lymph nodes. Urinary bladder: Unremarkable as visualized. Reproductive: Stable hysterectomy. Bones/joints: Unremarkable. No acute fracture. Soft tissues: Unremarkable. CT/CT abdomen pelvis wo con [id number] IMPRESSION: Markedly fatty liver measuring 9 Hounsfield units in density.
[2021-04-11] MEDS: levofloxacin-dextrose 5 % 750 MG/150 ML PREMIX 100 MG IV (15:15)
[2021-04-11 15:16] LABS: Adenovirus Not Detected (NOT DETECT); Chlamydia Pneumoniae Not Detected (NOT DETECT); Coronavirus 229E,HKU1,NL63,OC4 Not Detected (NOT DETECT); Human Metapneumovirus Not Detected (NOT DETECT); Human Rhinovirus/Enterovirus Not Detected (NOT DETECT); Influenza A Not Detected (NOT DETECT); Influenza A H1 Not Detected (NOT DETECT); Influenza A H1-2009 Not Detected (NOT DETECT); Influenza A H3 Not Detected (NOT DETECT); Influenza B Not Detected (NOT DETECT); Mycoplasma Pneumoniae Not Detected (NOT DETECT); Parainfluenza Virus Type 1 Not Detected (NOT DETECT); Parainfluenza Virus Type 2 Not Detected (NOT DETECT); Parainfluenza Virus Type 3 Not Detected (NOT DETECT); Parainfluenza Virus Type 4 Not Detected (NOT DETECT); Respiratory Syncytial Virus A Not Detected (NOT DETECT); Respiratory Syncytial Virus B Not Detected (NOT DETECT); SARS-COV-2 Not Detected (NOT DETECT)
[2021-04-11] MEDS: sodium chloride 0.9% 500 ML IV (15:16)
[2021-04-11 15:28] LABS: Influenza A Not Detected (NOT DETECT); Influenza A H1 Not Detected (NOT DETECT); Influenza A H1-2009 Not Detected (NOT DETECT); Influenza A H3 Not Detected (NOT DETECT); Influenza B Not Detected (NOT DETECT); Results from Genmark
[2021-04-11 16:29] VITALS: PULSE 96; RESP 16; O2SAT 98
--- NOTE | 2021-04-11 16:54 | PM.HP ---
Providers/Chief Complaint Primary Care Provider: Piedad Sandhu MD Chief Complaint: N/V/D; LOW O2 SATS History of Present Illness Carolyn Alexander is a 70 year old female with h/o HTN, KP, hypothyroidism, pituitary adenoma underwent resection, adrenal insufficiency, paroxysmal atrial fib and morbid obesity who presented to ED with nausea, vomiting and loose stools. Patient came via EMS. Patient notes she was very weak. Has had a few recent hospital stays and was discharged most recently on 03/25/21 after being treated for atrial fib with RVR, and RODRIGUE. Evaluation in ED fairly unremarkable. CTAP fatty liver, no acute process. Patient too weak to go home. Placed overnight in observation. Review of Systems General: Reports: 10 or more systems reviewed and unremarkable except in HPI and below Medications/Allergies Home Medications Medication Instructions Recorded Confirmed Last Taken Type epinephrine 0.3 mg/0.3 mL 0.3 mg IM Q10M PRN #2 ea 04/20/20 04/11/21 Unknown Rx injection, auto-injector duloxetine 30 mg capsule,delayed 60 mg PO BEDTIME cap 01/04/21 04/11/21 04/09/21 History release levothyroxine 175 mcg PO QAM 01/19/21 04/11/21 04/09/21 History oxybutynin chloride 10 mg PO QAM 01/19/21 04/11/21 04/09/21 History diabetic supplies, miscellan. #1 ea 01/21/21 04/11/21 Unknown Rx flash glucose scanning reader #1 ea 01/21/21 04/11/21 Unknown Rx omeprazole 40 mg PO DAILY@0600 01/26/21 04/11/21 04/09/21 History miscellaneous medical supply #1 ea 02/05/21 04/11/21 Unknown Rx pramipexole 0.25 mg PO BEDTIME 02/13/21 04/11/21 04/09/21 History flash glucose sensor #1 ea 03/01/21 04/11/21 Unknown Rx blood sugar diagnostic #50 ea 03/04/21 04/11/21 Unknown Rx blood-glucose meter,continuous #1 ea 03/04/21 04/11/21 Unknown Rx lancets 30 gauge #100 ea 03/04/21 04/11/21 Unknown Rx bumetanide 2 mg PO DAILY #60 tab 03/09/21 04/11/21 04/09/21 Rx losartan 25 mg PO DAILY #15 tab 03/09/21 04/11/21 04/09/21 Rx metolazone 2.5 mg PO DAILY #30 tab 03/09/21 04/11/21 04/09/21 Rx spironolactone 12.5 mg PO DAILY #15 tab 03/09/21 04/11/21 04/09/21 Rx hydrocortisone 10 mg tablet See Rx Instructions .ROUTE 04/05/21 04/11/21 04/09/21 Rx .COMPLEX #450 tab potassium chloride 20 mEq 40 meq PO BID #360 tab 04/06/21 04/11/21 04/09/21 Rx tablet,extended release(part/cryst) allopurinol 100 mg PO DAILY PRN 04/11/21 04/11/21 Unknown History amiodarone 200 mg PO DAILY 04/11/21 04/11/21 04/09/21 History apixaban [Eliquis] 2.5 mg PO BID 04/11/21 04/11/21 04/09/21 History cetirizine [Zyrtec] 10 mg PO DAILY PRN 04/11/21 04/11/21 Unknown History metoprolol tartrate 50 mg PO DAILY 04/11/21 04/11/21 04/09/21 History Allergies Allergy/AdvReac Type Severity Reaction Status Date / Time acetaminophen [From Tylenol] Allergy ALGY-Hives Verified 04/05/21 10:21 azithromycin Allergy ALGY-Anaphy Verified 04/05/21 10:21 laxis benzocaine Allergy ALGY-Hives Verified 04/05/21 10:21 butamben [From Cetacaine] Allergy ALGY-Swell Verified 04/05/21 10:21 Lip/Tongue/Throat codeine Allergy ALGY-Hives Verified 04/05/21 10:21 fentanyl Allergy ALGY-Anaphy Verified 04/05/21 10:21 laxis hydrocodone [From Vicodin] Allergy ALGY-Hives Verified 04/05/21 10:21 hydromorphone [From Dilaudid] Allergy ADR-Vomitin Verified 04/05/21 10:21 g Iodinated Contrast Media Allergy ALGY-Anaphy Verified 04/05/21 10:21 laxis liothyronine Allergy ADR-Nausea Verified 04/05/21 10:21 meperidine [From Demerol] Allergy Unknown Verified 04/05/21 10:21 morphine Allergy ALGY-Anaphy Verified 04/05/21 10:21 laxis nitrofurantoin Allergy ALGY-Joint Verified 04/05/21 10:21 [From Macrobid] Pain oxycodone [From Percocet] Allergy ALGY-Hives Verified 04/05/21 10:21 penicillin V Allergy ALGY-Hives Verified 04/05/21 10:21 Penicillins Allergy Unknown Verified 04/05/21 10:21 Phenothiazines Allergy ALGY-Anaphy Verified 04/05/21 10:21 laxis pregabalin [From Lyrica] Allergy ADV-Weaknes Verified 04/05/21 10:21 s procaine Allergy ALGY-Hives Verified 04/05/21 10:21 prochlorperazine Allergy ALGY-Anaphy Verified 04/05/21 10:21 [From Compazine] laxis Sulfa (Sulfonamide Allergy Unknown Verified 04/05/21 10:21 Antibiotics) tetracaine [From Cetacaine] Allergy ALGY-Swell Verified 04/05/21 10:21 Lip/Tongue/Throat PFSH Acute PFSH: Medical History Adrenal insufficiency Anasarca Benign essential hypertension with target blood pressure below 140/90 Central hypothyroidism CHF (congestive heart failure) Chronic back pain Follows at pain clinic for periodic injections COVID-19 (~09/2020) Edema Facet arthritis, degenerative, lumbar spine History of anaphylaxis History of atrial fibrillation Intermittent, has not required long-term anticoagulation or focused treatment History of COVID-19 HTN (hypertension) Hyperaldosteronism 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 Current gender identity: Female Female Reproductive History: Date of last menstrual period: 01/22/21 Vitals/I&O/Wt Last Vital Signs Temp 98.4 F 04/11/21 11:51 Pulse 96 04/11/21 16:29 Resp 16 04/11/21 16:29 BP 127/77 04/11/21 11:51 Pulse Ox 98 04/11/21 16:29 Physical Exam Narrative: EXAM NARRATIVE: alert, oriented HENMT: COMMON NORMALS: normocephalic and atraumatic Chest: COMMONS NORMALS: normal inspection of the chest Resp: COMMON NORMALS: No use of accessory muscles and clear to auscultation bilaterally Cardio: OTHER: irregular, rate 80-90 GI: COMMON NORMALS: Soft to palpation and non-tender OTHER: obese Extremity: COMMON NORMALS: no joint enlargement and no calf tenderness Neuro: COMMON NORMALS: patient oriented x3 and moves all extremities Skin: COMMON NORMALS: no rashes or lesions noted Data : 04/11/21 12:27 04/11/21 12:27 A&P Assessment and plan (1) Nausea and vomiting: Patient presents with nausea, vomiting and diarrhea Evaluation so far is unremarkable- WBC 16,000, however review of chart indicates that she has chronic leukocytosis, likely from steroid use CT abd/pelvis- no acute abnormality, fatty liver COVID/flu negative CXR unremarkable Clear liquid diet Supportive management including antiemetics Stool studies ordered Hold bumex, potassium and zaroxolyn Status: Acute (2) Paroxysmal atrial fibrillation: Resume her home meds of eliquis and metoprolol I reviewed her outpatient clinic follow up with the nurse practitioner. She has had problems taking amiodarone due to side effects. 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
[2021-04-11 17:48] VITALS: BP 120/65; PULSE 95; RESP 20; O2SAT 95
[2021-04-11 18:38] LABS: Influenza A by IFA Negative (Negative); Influenza B by IFA Negative (Negative)
[2021-04-11] MEDS: hydrocortisone 100 mg/2 mL SDV IVP (19:24)
[2021-04-11 20:00] VITALS: BP 133/71; PULSE 97; RESP 16; TEMP 37.2; O2SAT 91
--- NOTE | 2021-04-11 21:00 | PC.NURSE ---
Patient requesting phenergan at beginning of shift. She states she has had 3 doses of zofran here and some at home and it does not work. Requested order for phenergan from covering hospitalist. One dose 12.5 IM ordered. Will continue to monitor patient.
[2021-04-11 22:00] VITALS: PULSE 109
[2021-04-11] MEDS: promethazine 25 mg/mL SDV 1 mL 12.5 MG IM (22:00)
[2021-04-11] MEDS: pramipexole 0.25 mg Tablet PO (22:02)
[2021-04-11] MEDS: duloxetine 30 mg Capsule 60 MG PO (22:03)
[2021-04-11 23:45] VITALS: BP 132/76; PULSE 109; RESP 20; TEMP 37.1; O2SAT 98
[2021-04-12] VITALS (9 sets, daily range): BP systolic 104–160; BP diastolic 64–89; PULSE 74–102; RESP 16–20; TEMP 36.4–36.5; O2SAT 95–97
--- NOTE | 2021-04-12 03:23 | PC.NURSE ---
Patient given phenergan per md order. Was able to take her pills and able to fall asleep. Will continue to monitor.
[2021-04-12] MEDS: levothyroxine 175 mcg Tablet PO (05:16)
[2021-04-12] MEDS: oxybutynin chloride XL 5 MG TABLET 10 MG PO (05:16)
[2021-04-12] MEDS: pantoprazole DR 40 mg Tablet PO (05:16)
[2021-04-12 05:35] LABS: Basophils # 0.1 10^3/uL (0.0-0.1); Basophils % 0.4 %; Eosinophils # 0.1 10^3/uL (0.0-0.8); Eosinophils % 0.5 %; Hematocrit 33.5 % (37.0-47.0); Hemoglobin 9.5 g/dL (11.5-15.3); Lymphocytes # 1.5 10^3/uL (0.8-4.8); Mean Corpuscular HGB Conc 28.4 g/dL (30.0-36.0); Mean Corpuscular Volume 77.5 fl (81-99); Mean Platelet Volume 10.4 fL (7.4-10.4); Monocytes % 6.5 %; Neutrophils # 12.16 10^3/uL (1.8-7.7); Nucleated Red Blood Cells % 0 %; Platelet Count 356 10^3/cmm (130-400); Red Blood Count 4.32 10^6/uL (4.1-5.3); Red Cell Distribution Width 16.1 % (12.1-15.1); White Blood Count 14.8 10^3/uL (4.0-10.0)
[2021-04-12 05:52] LABS: Anion Gap 17.9 (5-19); Blood Urea Nitrogen 7 mg/dL (8-23); Calcium 8.4 mg/dL (8.5-10.5); Carbon Dioxide 24 mmol/L (22-29); Chloride 100 mmol/L (98-107); Glomerular Filtration Rate 55.1 mL/min (90-130); Glucose 159 mg/dL (65-115); Osmolality Calculated 287 mOsm/kg (285-295); Potassium 3.9 mmol/L (3.5-5.1); Sodium 138 mmol/L (136-145)
--- NOTE | 2021-04-12 06:21 | PC.NURSE ---
Shift Note Frequent safety and comfort rounds continue. Orders and/or nursing care completed as indicated. Patient monitored for response to intervention and treatment(s). Education provided includes phenergan. Patient and/or account service representative verbalizes understanding. Will continue to monitor.
--- NOTE | 2021-04-12 09:43 | PC.NURSE ---
Sent message to Dr. Agustin, patient refuses medications until she gets an order for phenergan.
[2021-04-12] MEDS: promethazine 25 mg/mL SDV 1 mL 12.5 MG IM ×2 (12:08→19:40)
[2021-04-12] MEDS: apixaban 5 mg Tablet 2.5 MG PO ×2 (12:12→17:39)
[2021-04-12] MEDS: amiodarone 200 mg Tablet PO (12:12)
[2021-04-12] MEDS: losartan 50 mg Tablet 25 MG PO (12:14)
[2021-04-12] MEDS: metoprolol tartrate 50 mg Tablet PO (12:14)
[2021-04-12] MEDS: spironolactone 25 mg Tablet 12.5 MG PO (12:15)
[2021-04-12] MEDS: bumetanide 0.25 mg/mL SDV 10 mL 2 MG IVP (15:57)
[2021-04-12] MEDS: pantoprazole 40 mg SDV IVP (17:38)
--- NOTE | 2021-04-12 18:19 | P.PN_ITS ---
Subjective Subjective: Interval history: Persistent nausea, vomiting this morning, vomited up one of her medications. But somewhat better in the afternoon, asking to advance diet to solids. Diarrhea so far resolved. Vitals/I&O/Wt Last Vital Signs Temp 97.6 F 04/12/21 04:00 Pulse 75 04/12/21 15:09 Resp 18 04/12/21 15:09 BP 126/64 04/12/21 15:09 Pulse Ox 97 04/12/21 15:09 04/12/21 04/12/21 04/12/21 06:59 14:59 22:59 Intake Total 100 / 200 480 / 480 Balance 100 / 200 480 / 480 Physical Exam Narrative: EXAM NARRATIVE: Sitting up at edge of bed. at bedside. Const: COMMON NORMALS: no acute distress and patient oriented x3 NUTRITIONAL APPEARANCE: obese morbidly obese HENMT: COMMON NORMALS: oropharynx normal Neck/C-Spine: COMMON NORMALS: no JVD Resp: COMMON NORMALS: normal respiratory effort and clear to auscultation bilaterally AUSCULTATION: clear to auscultation bilaterally Cardio: COMMON NORMALS: no JVD, regular rhythm, S1 normal heart sound present, S2 normal heart sound present and No murmurs present (Cardio) RHYTHM: regular rhythm HEART SOUNDS: S1 normal heart sound present and S2 normal heart sound present GI: COMMON NORMALS: Normal to inspection, nondistended, normoactive bowel sounds present, Soft to palpation and non-tender PALPATION: Yes Soft to palpation Extremity: COMMON NORMALS: no joint enlargement and no pedal edema Neuro: COMMON NORMALS: patient oriented x3 and moves all extremities Skin: COMMON NORMALS: no rashes or lesions noted GENERAL SKIN EXAM: no rashes or lesions noted Data : 04/12/21 04:47 04/12/21 04:47 A&P Assessment and plan (1) Nausea and vomiting: Persistent nausea, additional vomiting today. States Zofran is not working. Requested promethazine which she got last night to which he stated did not have allergy. Tolerated well, feeling better afterward. Requested to try solid food, advised to GI soft trial this evening. In case tolerating, and no return of diarrhea, possibly could return home tomorrow. Did escalate Protonix to 40 mg IV due to persistent nausea, recurrence of vomiting. Patient presents with nausea, vomiting and diarrhea Evaluation so far is unremarkable- WBC 16,000, however review of chart indicates that she has chronic leukocytosis, likely from steroid use CT abd/pelvis- no acute abnormality, fatty liver COVID/flu negative CXR unremarkable Supportive management including antiemetics Stool studies ordered but not collected. Currently diarrhea resolved. Status: Acute (2) CHF (congestive heart failure): Acute diastolic CHF. Worsening leg edema. This is despite recent diarrh ea, poor oral intake. Discussed with her and she is requesting to additionally restart diuretics. Restarting IV Bumex at this time. Monitor JESUS and renal function. Status: Acute Qualifiers: Heart failure type: unspecified Heart failure chronicity: acute Qualified Code(s): I50.9 - Heart failure, unspecified (3) Paroxysmal atrial fibrillation: Continue eliquis and metoprolol She has had problems taking amiodarone due to side effects. 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
[2021-04-12] MEDS: duloxetine 30 mg Capsule 60 MG PO (20:04)
[2021-04-12] MEDS: pramipexole 0.25 mg Tablet PO (20:04)
[2021-04-12] MEDS: ondansetron 2 mg/ML SDV 2 mL 4 MG IVP (22:04)
[2021-04-13] VITALS (7 sets, daily range): BP systolic 103–136; BP diastolic 49–86; PULSE 63–95; RESP 17–21; TEMP 36.5–36.8; O2SAT 93–95
[2021-04-13] MEDS: promethazine 25 mg/mL SDV 1 mL 12.5 MG IM ×2 (03:00→10:01)
--- NOTE | 2021-04-13 03:43 | PC.NURSE ---
0300 pt dry heaving. Phenergan given as ordered.
--- NOTE | 2021-04-13 03:44 | PC.NURSE ---
0330 Telemetry showing HR 150s. Checked on pt. She is resting with palpable pulse 90 matching auscultated.
[2021-04-13] MEDS: oxybutynin chloride XL 5 MG TABLET 10 MG PO (05:39)
[2021-04-13] MEDS: levothyroxine 175 mcg Tablet PO (05:39)
[2021-04-13] MEDS: pantoprazole 40 mg SDV IVP ×2 (05:39→17:16)
--- NOTE | 2021-04-13 05:47 | PC.NURSE ---
0545 sitting on side of bed drinkning dipesh. Tolerates well.
[2021-04-13 07:25] LABS: Basophils # 0.1 10^3/uL (0.0-0.1); Basophils % 0.7 %; Eosinophils # 0.7 10^3/uL (0.0-0.8); Eosinophils % 5.8 %; Hematocrit 35.5 % (37.0-47.0); Lymphocytes # 2.3 10^3/uL (0.8-4.8); Lymphocytes % 20.2 %; Mean Corpuscular HGB Conc 28.2 g/dL (30.0-36.0); Mean Corpuscular Hemoglobin 22.5 pg (28.0-34.0); Mean Corpuscular Volume 79.8 fl (81-99); Mean Platelet Volume 10.4 fL (7.4-10.4); Monocytes # 1.4 10^3/uL (0.2-0.9); Neutrophils # 6.86 10^3/uL (1.8-7.7); Neutrophils % 60.4 %; Nucleated Red Blood Cells % 0.2 %; Platelet Count 357 10^3/cmm (130-400); Red Blood Count 4.45 10^6/uL (4.1-5.3); Red Cell Distribution Width 16.5 % (12.1-15.1); White Blood Count 11.4 10^3/uL (4.0-10.0)
[2021-04-13 08:00] LABS: Alanine Aminotransferase 20 U/L (0-33); Albumin Level 3.5 g/dL (3.5-5.2); Alkaline Phosphatase 108 IU/L (35-105); Anion Gap 18.3 (5-19); Aspartate Amino Transferase 19 U/L (0-32); Blood Urea Nitrogen 8 mg/dL (8-23); Calcium 8.7 mg/dL (8.5-10.5); Carbon Dioxide 25 mmol/L (22-29); Chloride 102 mmol/L (98-107); Globulin 1.8 g/dL (1.3-4.6); Glomerular Filtration Rate 44.7 mL/min (90-130); Glucose 120 mg/dL (65-115); Osmolality Calculated 292 mOsm/kg (285-295); Potassium 4.3 mmol/L (3.5-5.1); Sodium 141 mmol/L (136-145); Total Bilirubin 0.4 mg/dL (0.15-1.2); Total Protein 5.3 g/dL (6.6-8.7)
[2021-04-13] MEDS: bumetanide 0.25 mg/mL SDV 10 mL 2 MG IVP (10:01)
[2021-04-13] MEDS: metoprolol tartrate 50 mg Tablet PO (10:37)
[2021-04-13] MEDS: spironolactone 25 mg Tablet 12.5 MG PO (10:37)
[2021-04-13] MEDS: apixaban 5 mg Tablet 2.5 MG PO ×2 (10:38→18:06)
[2021-04-13] MEDS: amiodarone 200 mg Tablet PO (10:38)
[2021-04-13] MEDS: losartan 50 mg Tablet 25 MG PO (10:38)
--- NOTE | 2021-04-13 11:33 | US_ITS ---
WS: [id number] ULTRASOUND SOFT TISSUES medial RIGHT upper extremity. HISTORY: R arm - reported draining spot after PICC COMPARISON: None available. TECHNIQUE: 2-D and color Doppler imaging is submitted. There is a very superficial area of soft tissue thickening with mild edema in the area of clinical co ncern in the upper RIGHT extremity. This area measures 1.3 x 0.2 cm. No increased vascularity. No abs cess. Most consistent with small area of subcutaneous edema. US/US soft tissue/extremity [id number] IMPRESSION: 1. No abscess. 2. Very minimal edema noted in the superficial soft tissues of the medial RIGH T upper extremity.
--- NOTE | 2021-04-13 11:38 | P.PN_ITS ---
Subjective Subjective: Interval history: Yesterday additional episodes of nausea, vomiting, this morning no vomiting, but still nauseated. Denies pain on swallowing. Denies abdominal pain. Reports that amiodarone was considered suspect to causing her nausea in the past, there was consideration to switch over to a different medication. Later to the nurse also reports a spot on right upper arm where she used to have PICC line in the past which she reports that produced some drainage. As well as a rash on her breast. Vitals/I&O/Wt Last Vital Signs Temp 98.2 F 04/13/21 11:34 Pulse 86 04/13/21 11:34 Resp 17 04/13/21 11:34 BP 136/76 04/13/21 11:34 Pulse Ox 93 04/13/21 11:34 04/12/21 04/13/21 04/13/21 22:59 06:59 14:59 Intake Total 250 / 730 200 / 930 480 / 480 Output Total 300 / 300 730 / 1030 Balance -50 / 430 -530 / -100 480 / 480 Physical Exam Narrative: EXAM NARRATIVE: Nauseated Const: COMMON NORMALS: no acute distress and patient oriented x3 NUTRITIONAL APPEARANCE: obese morbidly obese HENMT: COMMON NORMALS: oropharynx normal Neck/C-Spine: COMMON NORMALS: no JVD Resp: COMMON NORMALS: normal respiratory effort and clear to auscultation bilaterally AUSCULTATION: clear to auscultation bilaterally Cardio: COMMON NORMALS: no JVD, regular rhythm, S1 normal heart sound present, S2 normal heart sound present and No murmurs present (Cardio) RHYTHM: regular rhythm HEART SOUNDS: S1 normal heart sound present and S2 normal heart sound present GI: COMMON NORMALS: Normal to inspection, nondistended, normoactive bowel sounds present, Soft to palpation and non-tender PALPATION: Yes Soft to palpation Extremity: COMMON NORMALS: no joint enlargement and no pedal edema Neuro: COMMON NORMALS: patient oriented x3 and moves all extremities Skin: COMMON NORMALS: no rashes or lesions noted GENERAL SKIN EXAM: no rashes or lesions noted Data : 04/13/21 05:28 04/13/21 05:28 A&P Assessment and plan (1) Nausea and vomiting: Again episodes of nausea vomiting last night, persistent nausea today. No pain. Will de-escalate to clear liquid diet. She has required Phenergan. She does not have allergy to Reglan, discussed with her we may try Reglan as well. Continue PPI. Accept Rhofade. No overt diarrhea, but some smears. Discussed with her in case additional diarrhea she will provide a sample. Suspect protracted severe gastroenteritis. However, she also has lower extremity edema which she describes as worsened than usual. Discussed with her also possibility of gout edema with CHF exacerbation, possibly contributing to her symptoms with nausea vomiting and malabsorption. Additional diuresis as detailed yesterday, continue IV Bumex for now, monitor I&O, consider additional dose this evening. She also states that previously amiodarone was thought possibly contributing to her nausea as it does have this possible adverse effect. 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 Discontinue amiodarone. Wait several days, after nausea resolves start dronabinol 400 mg twice daily. In case of not resolving systems, consider endoscopic evaluation. Discussed with her. Patient presents with nausea, vomiting and diarrhea Evaluation so far is unremarkable- WBC 16,000, however review of chart indicates that she has chronic leukocytosis, likely from steroid use CT abd/pelvis- no acute abnormality, fatty liver COVID/flu negative CXR unremarkable Supportive management including antiemetics Stool studies ordered but not collected. Currently diarrhea resolved. Status: Acute (2) CHF (congestive heart failure): IV Bumex. Monitor I&O, if continued sluggish output additional dose of IV Bumex tonight. As she complains of worsened lower extremity edema, discussed with her consideration that possible got edema due to CHF exacerbation could be contributing to nausea, vomiting, malabsorption, but will want to monitor renal function closely. Acute diastolic CHF. Status: Acute Qualifiers: Heart failure type: unspecified Heart failure chronicity: acute Qualified Code(s): I50.9 - Heart failure, unspecified (3) Paroxysmal atrial fibrillation: Continue eliquis and metoprolol. As above stop amiodarone. To be started on Multaq. 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
[2021-04-13] MEDS: metoclopramide 10 mg Tablet 5 MG PO ×2 (17:14→22:16)
[2021-04-13] MEDS: sucralfate 1 gm Tablet PO ×2 (18:06→22:18)
--- NOTE | 2021-04-13 19:54 | PC.NURSE ---
Shift report received from Charity SANCHES. Patient in bed/sleeping. No s/s of pain or discomfort. IV patent/SL. No needs noted at this time.
[2021-04-13] MEDS: pramipexole 0.25 mg Tablet PO (22:16)
[2021-04-13] MEDS: duloxetine 30 mg Capsule 60 MG PO (22:17)
--- NOTE | 2021-04-14 00:32 | PC.NURSE ---
Patient in bed /awake. Requests ice for verito robert/ no other needs voiced at this time.
[2021-04-14 04:00] VITALS: BP 100/44; PULSE 77; RESP 18; TEMP 36.6; O2SAT 92
[2021-04-14] MEDS: oxybutynin chloride XL 5 MG TABLET 10 MG PO (05:08)
[2021-04-14] MEDS: pantoprazole 40 mg SDV IVP ×2 (05:08→18:13)
[2021-04-14] MEDS: levothyroxine 175 mcg Tablet PO (05:08)
[2021-04-14] MEDS: sucralfate 1 gm Tablet PO ×4 (06:24→22:38)
[2021-04-14] MEDS: metoclopramide 10 mg Tablet 5 MG PO ×4 (06:24→22:38)
[2021-04-14 06:28] LABS: Basophils # 0.1 10^3/uL (0.0-0.1); Basophils % 0.6 %; Eosinophils # 0.8 10^3/uL (0.0-0.8); Eosinophils % 7.4 %; Hematocrit 33.8 % (37.0-47.0); Hemoglobin 9.8 g/dL (11.5-15.3); Lymphocytes # 2.4 10^3/uL (0.8-4.8); Lymphocytes % 21.1 %; Mean Corpuscular Hemoglobin 22.3 pg (28.0-34.0); Mean Corpuscular Volume 76.8 fl (81-99); Mean Platelet Volume 11.1 fL (7.4-10.4); Monocytes # 1.3 10^3/uL (0.2-0.9); Monocytes % 11.7 %; Neutrophils # 6.55 10^3/uL (1.8-7.7); Neutrophils % 58.2 %; Nucleated Red Blood Cells % 0 %; Platelet Count 314 10^3/cmm (130-400); Red Cell Distribution Width 16.3 % (12.1-15.1); White Blood Count 11.2 10^3/uL (4.0-10.0)
[2021-04-14 06:37] LABS: Albumin Level 3.1 g/dL (3.5-5.2); Alkaline Phosphatase 95 IU/L (35-105); Blood Urea Nitrogen 6 mg/dL (8-23); Calcium 8.1 mg/dL (8.5-10.5); Carbon Dioxide 22 mmol/L (22-29); Chloride 101 mmol/L (98-107); Globulin 2.4 g/dL (1.3-4.6); Glomerular Filtration Rate 40.7 mL/min (90-130); Glucose 114 mg/dL (65-115); Osmolality Calculated 282 mOsm/kg (285-295); Sodium 137 mmol/L (136-145); Total Bilirubin 0.5 mg/dL (0.15-1.2); Total Protein 5.5 g/dL (6.6-8.7)
[2021-04-14 06:42] LABS: Alanine Aminotransferase 24 U/L (0-33); Anion Gap 17.4 (5-19); Aspartate Amino Transferase 30 U/L (0-32); Potassium 3.4 mmol/L (3.5-5.1)
[2021-04-14 07:12] VITALS: BP 105/49; PULSE 84; RESP 16; TEMP 36.5; O2SAT 94
[2021-04-14] MEDS: spironolactone 25 mg Tablet 12.5 MG PO (09:54)
[2021-04-14] MEDS: apixaban 5 mg Tablet 2.5 MG PO ×2 (09:54→18:46)
[2021-04-14 09:56] VITALS: BP 105/49
[2021-04-14] MEDS: losartan 50 mg Tablet 25 MG PO (09:56)
--- NOTE | 2021-04-14 10:09 | PC.CHAP ---
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 medical and scientific illustrator visit [] Patient/Family/Request visit [] Outpatient visit [] Follow-up visit [] Physician referral [] Code/Alert [x]x Routine visit [] Staff referral [] Actively dying [] Patient sleeping [] Family support [] [] Out of room [] Palliative care [] [] Receiving care in room [] Pre-surgical visit [] Trauma [] Long length of stay [] ICU visit [] Other: Relational/Emotional Strength [x] Patient feels connected with others/family/visitors/staff [] Distress [] Loneliness/isolation [] Abandonment Spirituality of Patient [x] Person of [place] [x] Attends Latter-Day of their [place] x[] Believes in Prayer [] Reads Bible or Adventism materials [] There are Spiritual issues to be addressed [employer] Interventions [x] Prayer [x] Active listening [x] Non-anxious presence [x]x Spiritual/emotional support [] Crisis/trauma care [] Spiritual counseling [] Bereavement support [] Provided bereavement packet [] Provided Bible/devotional materials [] Provided toy/stuffed animal, coloring book to patient or family member [] Provided Communion [] Anointing/Eads [] Salvation [x] Completed spiritual assessment [] Other: Impact on Illness or Injury [] Angry [] Fearful [] Anxious [] Often cries [] Exhaustion [] Unable to work [] Unable to attend advent [] Unable to walk/stand [] Unable to read [] Unable to drive [] Unable to eat/drink [] Unable to sleep [] Unable to be with family [] Patient intubated [] Other: Summary Time spent with patient 10 mkin
[2021-04-14 10:48] VITALS: BP 119/68; PULSE 84; RESP 16; TEMP 37.1; O2SAT 95
[2021-04-14] MEDS: bumetanide 0.25 mg/mL SDV 10 mL 2 MG IVP (11:10)
[2021-04-14] MEDS: potassium chloride premix 100 ML 50 MEQ IV (11:14)
[2021-04-14] MEDS: lidocaine 1% INJ 20 mL 5 ML IV (11:14)
--- NOTE | 2021-04-14 15:44 | P.PN_ITS ---
Subjective Subjective: Interval history: Does not feel able to go home, food is sticking in her lower throat/upper chest. Feels she is repeatedly regurgitating. So far not vomiting. Sore throat. Vitals/I&O/Wt Last Vital Signs Temp 98.7 F 04/14/21 10:48 Pulse 84 04/14/21 10:48 Resp 16 04/14/21 10:48 BP 119/68 04/14/21 10:48 Pulse Ox 95 04/14/21 10:48 04/14/21 04/14/21 04/14/21 06:59 14:59 22:59 Intake Total 480 / 1200 340 / 340 Output Total 260 / 780 Balance 220 / 420 340 / 340 Physical Exam Const: COMMON NORMALS: no acute distress and patient oriented x3 GENERAL APPEARANCE: anxious NUTRITIONAL APPEARANCE: obese morbidly obese HENMT: COMMON NORMALS: oropharynx normal Neck/C-Spine: COMMON NORMALS: no JVD Resp: COMMON NORMALS: normal respiratory effort and clear to auscultation bilaterally AUSCULTATION: clear to auscultation bilaterally Cardio: COMMON NORMALS: no JVD, regular rhythm, S1 normal heart sound present, S2 normal heart sound present and No murmurs present (Cardio) RHYTHM: regular rhythm HEART SOUNDS: S1 normal heart sound present and S2 normal heart sound present GI: COMMON NORMALS: Normal to inspection, nondistended, normoactive bowel sounds present, Soft to palpation and non-tender PALPATION: Yes Soft to palpation Extremity: COMMON NORMALS: no joint enlargement and no pedal edema Neuro: COMMON NORMALS: patient oriented x3 and moves all extremities Skin: COMMON NORMALS: no rashes or lesions noted GENERAL SKIN EXAM: no rashes or lesions noted Data : 04/14/21 05:21 04/14/21 05:21 Micro: Microbiology 04/13/21 11:55 Blood Culture - Preliminary Blood NEGATIVE TO DATE 04/13/21 11:50 Blood Culture - Preliminary Blood NEGATIVE TO DATE A&P Assessment and plan (1) Nausea and vomiting: She has identified that she feels that food continues to stick in her upper chest, lower neck. Regurgitating. Requesting barium swallow evaluation. She is adamant she cannot return home as she has been growing weaker with poor oral intake. Trial of liquid diet. Diarrhea so far resolved. Continue PPI. Antiemetics. Sore throat after vomiting, but unable to give Cepacol as she has listed allergy to number of local anesthetics. She also states that previously amiodarone was thought possibly contributing to her nausea as it does have this possible adverse effect. 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 Discontinue amiodarone. Wait several days, after nausea resolves start dronaderol 400 mg twice daily. Leukocytosis resolving. Patient presents with nausea, vomiting and diarrhea Evaluation so far is unremarkable- WBC 16,000, however review of chart indicates that she has chronic leukocytosis, likely from steroid use CT abd/pelvis- no acute abnormality, fatty liver COVID/flu negative CXR unremarkable Supportive management including antiemetics Stool studies ordered but not collected. Currently diarrhea resolved. Status: Acute (2) CHF (congestive heart failure): Continue IV Bumex. For now will not escalate dose due to some worsening of renal function, creatinine up to 1.3 with poor oral intake, recent diarrhea. Reassess renal function. Monitor I&O, if continued sluggish output additional dose of IV Bumex tonight. Acute diastolic CHF. Status: Acute Qualifiers: Heart failure type: unspecified Heart failure chronicity: acute Qualified Code(s): I50.9 - Heart failure, unspecified (3) Paroxysmal atrial fibrillation: Continue eliquis and metoprolol. As above stop amiodarone. To be started on Multaq. 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
[2021-04-14 20:00] VITALS: BP 89/65; PULSE 102; RESP 18; TEMP 36.9; O2SAT 90
--- NOTE | 2021-04-14 20:18 | PC.NURSE ---
i reported high pulse 102 to nurse
--- NOTE | 2021-04-14 20:24 | PC.NURSE ---
Shift report received from Suzy DAMIAN. Patient in bed/sleeping. No s/s of pain or discomfort. No needs noted at this time.
[2021-04-14] MEDS: duloxetine 30 mg Capsule 60 MG PO (22:38)
[2021-04-14] MEDS: pramipexole 0.25 mg Tablet PO (22:39)
[2021-04-15] VITALS: BP 95/51; PULSE 100; RESP 18; TEMP 37.1; O2SAT 90
[2021-04-15 03:38] VITALS: BP 94/50; PULSE 94; RESP 18; TEMP 36.9; O2SAT 90
[2021-04-15] MEDS: oxybutynin chloride XL 5 MG TABLET 10 MG PO (05:36)
[2021-04-15] MEDS: levothyroxine 175 mcg Tablet PO (05:36)
[2021-04-15] MEDS: pantoprazole 40 mg SDV IVP ×2 (05:36→18:20)
[2021-04-15 05:44] LABS: Basophils # 0.1 10^3/uL (0.0-0.1); Basophils % 0.8 %; Eosinophils # 0.8 10^3/uL (0.0-0.8); Eosinophils % 6.3 %; Hematocrit 34.6 % (37.0-47.0); Hemoglobin 9.8 g/dL (11.5-15.3); Lymphocytes # 2.6 10^3/uL (0.8-4.8); Lymphocytes % 21.8 %; Mean Corpuscular HGB Conc 28.3 g/dL (30.0-36.0); Mean Corpuscular Hemoglobin 21.8 pg (28.0-34.0); Mean Corpuscular Volume 76.9 fl (81-99); Mean Platelet Volume 9.8 fL (7.4-10.4); Monocytes # 1.7 10^3/uL (0.2-0.9); Monocytes % 14.1 %; Neutrophils # 6.74 10^3/uL (1.8-7.7); Neutrophils % 56.2 %; Nucleated Red Blood Cells % 0 %; Platelet Count 378 10^3/cmm (130-400); Red Cell Distribution Width 16.4 % (12.1-15.1)
[2021-04-15 06:05] LABS: Anion Gap 19.7 (5-19); Blood Urea Nitrogen 4 mg/dL (8-23); Calcium 8.5 mg/dL (8.5-10.5); Carbon Dioxide 23 mmol/L (22-29); Chloride 99 mmol/L (98-107); Glomerular Filtration Rate 44.7 mL/min (90-130); Glucose 119 mg/dL (65-115); Osmolality Calculated 286 mOsm/kg (285-295); Sodium 139 mmol/L (136-145)
[2021-04-15 06:09] LABS: Potassium 2.7 mmol/L (3.5-5.1)
[2021-04-15 06:28] LABS: Glucose Point of Care 165 mg/dL (70-110)
[2021-04-15] MEDS: metoclopramide 10 mg Tablet 5 MG PO ×3 (07:12→18:20)
--- NOTE | 2021-04-15 07:19 | PC.NURSE ---
Patient attempted to take PO potassium / unable to swallow due to sore throat. Passed in shift report.
[2021-04-15 08:00] VITALS: BP 148/67; PULSE 102; RESP 18; TEMP 36.9; O2SAT 97
--- NOTE | 2021-04-15 08:00 | FL_ITS ---
WS: [id number] Exam: FL barium swallow gastro [id number] Date/Time of Exam: 04/15/2021 8:52 AM Reason For Exam: swallowing issues Fluoroscopy time: minutes Gastrografin barium swallow was performed. Swallowing function at the level of oropharynx was normal. The esophagus is patent. No obvious esopha geal stricture or mass is seen. Contrast spills freely into the stomach. Contrast passes into the duo denal C-loop without obstruction. FL/FL barium swallow gastro [id number] IMPRESSION: 1. Patent esophagus. No sign of obvious esophageal stricture or mass. 2. Contrast passes freely into the stomach and duodenal C-loop.
[2021-04-15] MEDS: lidocaine 1% 5 ML in potassium chloride premix 100 ML 25 ML IV (08:06)
[2021-04-15] MEDS: apixaban 5 mg Tablet 2.5 MG PO ×2 (08:07→18:20)
[2021-04-15] MEDS: bumetanide 0.25 mg/mL SDV 10 mL 2 MG IVP (08:08)
[2021-04-15] MEDS: spironolactone 25 mg Tablet 12.5 MG PO (08:08)
[2021-04-15] MEDS: metoprolol tartrate 50 mg Tablet PO (08:08)
[2021-04-15] MEDS: metoprolol tartrate 25 mg Tablet PO (08:18)
[2021-04-15] MEDS: promethazine 25 mg/mL SDV 1 mL 12.5 MG IM (09:33)
[2021-04-15] MEDS: diatrizoate meglumine 120 mL Sol PO (09:47)
[2021-04-15 12:00] VITALS: BP 109/68; PULSE 76; RESP 18; TEMP 37.2; O2SAT 95
[2021-04-15] MEDS: lanolin oint 7 gm 1 APPLIC TOPICAL (12:44)
[2021-04-15 14:00] VITALS: PULSE 81
--- NOTE | 2021-04-15 15:06 | PC.NURSE ---
stool specimen collected, unable to collect in worklist notified [facility] in Lab.
[2021-04-15 15:12] VITALS: BP 112/69; PULSE 89; RESP 18; TEMP 37.5; O2SAT 92
[2021-04-15] MEDS: sucralfate 1 gm Tablet PO (18:20)
--- NOTE | 2021-04-15 19:31 | PM.DCS ---
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: Status: Acute (5) Benign essential hypertension with target blood pressure below 140/90: Status: Acute (6) Adrenal insufficiency: Status: Acute Permanent problem details: DVT prophylaxis- eliquis GI prophylaxis- protonix Reason for Visit Reason for Visit: N/V/D; LOW O2 SATS Hospital Course Hospital Course Pleasant 70-year-old lady was admitted for subsequent management after presenting with nausea vomiting and diarrhea, with gastroenteritis, stool studies requested, but diarrhea subsequently gradually resolved before sample could be obtained, nausea persisted longer, with episodes of vomiting, poor tolerance of oral intake, intake of medications. Was treated conservatively with antiemetics, initially diuretics were held, however, with noted CHF exacerbation with lower extremity swelling, Bumex was resumed intravenously while in the hospital. Due to persistent upper GI symptoms famotidine changed to PPI twice daily IV. Sucralfate was added. As well as Reglan. Did seem to respond to promethazine as well. She described feeling sensation of food sticking in her upper chest/lower neck, due to which underwent assessment with barium swallow evaluation. Had nausea during the study, but study was completed successfully, with finding of patent esophagus, no obvious esophageal stricture or mass. Contrast passes freely into the stomach and duodenal C-loop. She was additionally monitored due to listed contrast media anaphylaxis, although did well after the study. Per request diet advanced to soft which she preferred better than liquids, and she tolerated oral intake. She continues on PPI which are esclalated to BID. Hydrocortisone is resumed. Potassium was supplemented by IV and she will resume oral supplementation after discharge. Blood pressure was lower this morning, possibly with poor oral intake. Physical Exam Narrative: EXAM NARRATIVE: Sitting up in chair. Const: COMMON NORMALS: no acute distress and patient oriented x3 GENERAL APPEARANCE: anxious NUTRITIONAL APPEARANCE: obese morbidly obese HENMT: COMMON NORMALS: oropharynx normal Neck/C-Spine: COMMON NORMALS: no JVD Resp: COMMON NORMALS: normal respiratory effort and clear to auscultation bilaterally AUSCULTATION: clear to auscultation bilaterally Cardio: COMMON NORMALS: no JVD, regular rhythm, S1 normal heart sound present, S2 normal heart sound present and No murmurs present (Cardio) RHYTHM: regular rhythm HEART SOUNDS: S1 normal heart sound present and S2 normal heart sound present GI: COMMON NORMALS: Normal to inspection, nondistended, normoactive bowel sounds present, Soft to palpation and non-tender PALPATION: Yes Soft to palpation Extremity: COMMON NORMALS: no joint enlargement and no pedal edema Neuro: COMMON NORMALS: patient oriented x3 and moves all extremities Skin: COMMON NORMALS: no rashes or lesions noted GENERAL SKIN EXAM: no rashes or lesions noted Discharge Data Data Completed and Pending: Completed Studies During Hospitalization Category Date Time Status CT abdomen pelvis wo con [id number] Urge nt Cat Scan 04/11/21 13:33 Completed FL barium swallow gastro [id number] Rout ine Exams 04/15/21 08:00 Completed XR chest 1V anneliese ble [id number] Urgent Exams 04/11/21 11:47 Completed US soft tissue/ex tremity [id number] Rout ine Ultrasound 04/13/21 11:33 Completed Pending at discharge Category Date Time Status Basic Metabolic P sofia AM LABS Lab 04/16/21 04:00 Ordered Basic Metabolic P sofia AM LABS Lab 04/17/21 04:00 Ordered Blood Culture Sta t Lab 04/13/21 11:55 Results Clostridioides Di fficile PCR Routin e Lab 04/11/21 14:54 Results Enteric Bacterial Panel by PCR Rout ine Lab 04/11/21 14:54 Results Enteric Parasite Panel by PCR Routi ne Lab 04/11/21 14:54 Results Immunochemical Fe elfego OCB Routine Lab 04/11/21 14:54 Results Lactoferrin Routi ne Lab 04/11/21 14:54 Results Labs from last 24 hours 04/15/21 04/15/21 04/15/21 04:30 04:30 00:34 WBC 12.0 H RBC 4.50 Hgb 9.8 L Hct 34.6 L MCV 76.9 L MCH 21.8 L MCHC 28.3 L RDW 16.4 H Plt Count 378 MPV 9.8 Neut % (Auto) 56.2 Lymph % (Auto) 21.8 [place] % (Auto) 14.1 Eos % (Auto) 6.3 Baso % (Auto) 0.8 Neut # (Auto) 6.74 Lymph # (Auto) 2.6 [place] # (Auto) 1.7 H Eos # (Auto) 0.8 Baso # (Auto) 0.1 Nucleated RBC % (a uto) 0 Nucleated RBCs # 0.0 Sodium 139 Potassium 2.7 L* D Chloride 99 Carbon Dioxide 23 Anion Gap 19.7 H BUN 4 L Creatinine 1.2 H GFR Calculation 44.7 L Glucose 119 H POC Glucose 165 H Calculated Osmolal ity 286 Calcium 8.5 Vitals: Last Vital Signs Temp 99.5 F 04/15/21 15:12 Pulse 89 04/15/21 15:12 Resp 18 04/15/21 15:12 BP 112/69 04/15/21 15:12 Pulse Ox 92 04/15/21 15:12 Discharge Plan Discharge Patient Disposition: Home Health Service Condition: Stable Prescriptions: New metoclopramide HCl 10 mg Tablet 5 mg PO AC&BEDTIME 7 Days Qty: 28 RF: 0 sucralfate 1 gram Tablet 1 g PO AC&BEDTIME 14 Days Qty: 60 RF: 2 Continued epinephrine [EpiPen 2-Nabeel] 0.3 mg/0.3 mL auto-injector 0.3 mg IM Q10M PRN (Reason: anaphylaxis) Qty: 2 RF: 3 duloxetine [Cymbalta] 30 mg capsule,delayed release(DR/EC) 60 mg PO BEDTIME RF: 0 (DME) miscellaneous medical supply Misc See Rx Instructions .Route Qty: 1 RF: 0 potassium chloride [Klor-Con M20] 20 mEq tablet,ER particles/crystals 40 meq PO BID Qty: 360 RF: 2 (DME) FreeStyle Daniel 2 Sensor Kit See Rx Instructions .Route Qty: 1 RF: 3 (DME) FreeStyle Daniel 2 [place] Misc See Rx Instructions .Route Qty: 1 RF: 0 (DME) Pharmacist Choice Strip See Rx Instructions .Route Qty: 50 RF: 2 (DME) blood-glucose meter,continuous Misc See Rx Instructions .Route Qty: 1 RF: 0 (DME) lancets [Easy Touch Lancets] 30 gauge misc See Rx Instructions .Route Qty: 100 RF: 1 hydrocortisone 10 mg tablet See Rx Instructions .ROUTE .COMPLEX Qty: 450 RF: 3 levothyroxine 175 mcg tablet 175 mcg PO QAM RF: 0 oxybutynin chloride 10 mg tablet extended release 24hr 10 mg PO QAM RF: 0 (DME) diabetic supplies, miscellan. Misc See Rx Instructions .Route Qty: 1 RF: 0 spironolactone 25 mg Tablet 12.5 mg PO DAILY Qty: 15 RF: 0 Hold Instructions: Resume on 04/01/21. resume if OK with dr Sellers and your PCP aftre reviewing your labs bumetanide 1 mg Tablet 2 mg PO DAILY Qty: 60 RF: 0 pramipexole 0.125 mg tablet 0.25 mg PO BEDTIME RF: 0 amiodarone 200 mg tablet 200 mg PO DAILY RF: 0 Eliquis 2.5 mg tablet 2.5 mg PO BID RF: 0 Zyrtec 10 mg Tablet 10 mg PO DAILY PRN (Reason: Allergic Symptoms) RF: 0 allopurinol 100 mg Tablet 100 mg PO DAILY PRN (Reason: gout) RF: 0 Changed omeprazole 40 mg capsule,delayed release(DR/EC) 40 mg PO BID Qty: 60 RF: 0 metoprolol tartrate 25 mg tablet 25 mg PO DAILY Qty: 0 RF: 0 Held metolazone 5 mg Tablet 2.5 mg PO DAILY Qty: 30 RF: 0 Hold Instructions: Resume on 04/01/21. if ok with your docs Discontinued losartan 50 mg Tablet 25 mg PO DAILY Qty: 15 RF: 0 Hold Instructions: Resume on 04/02/21. If okay with your primary care physician and Dr. Sellers after reviewing your labs. Discharge Orders: Discharge Order (Routine); Ordered 04/15/21 Ordered By: Jarvis Cormier Referrals: Orlando Aguilar MD [Physician] - 2 weeks (Dyspepsia, N/V, EGD PLEASE CALL FOR APPOINTMENT) Piedad Sandhu MD [Primary Care Provider] - 4-7 days (PLEASE CALL FOR APPOINTMENT ) Discharge Diet: As Directed and Soft Mechanical Discharge Activity: Increase activity as tolerated Patient Instructions: Gastroenteritis (GEN), Acute Nausea and Vomiting (GEN), Opioid Safety Activity Restrictions/Additional Instructions: Resume [employer]. BMP weekly for follow-up on potassium. Please resume potassium supplementation at home. Resume hydrocortisone. Monitor blood pressures closely. Losartan is held for now with noted softer blood pressures this morning, possibly due to poor oral intake. If blood pressure is increasing above 130/90, resume losartan at 25 mg daily. Please continue omeprazole twice a day, continue sucralfate. Follow-up with surgery in office to set up gastroscopy in case of persistent symptoms. Resume follow-up with your other doctors, including endocrinology. 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
[2021-04-15] MEDS: hydrocortisone 10 mg Tablet 15 MG PO (20:07)
== END 2021-04-15 20:22 | disposition home health service (06) | DRG 391 ==
LOC: ER 15:49 → MEDSURG 16:55
PROVIDERS: Admitting Provider Internal Medicine; Emergency Provider Family Medicine; PCP Family Medicine; Visit Provider Internal Medicine
DX: K52.9 Noninfective gastroenteritis and colitis, unspecified (principal); I50.33 Acute on chronic diastolic (congestive) heart failure; E27.40 Unspecified adrenocortical insufficiency; I11.0 Hypertensive heart disease with heart failure; I48.0 Paroxysmal atrial fibrillation; Z79.01 Long term (current) use of anticoagulants; E89.3 Postprocedural hypopituitarism; K76.0 Fatty (change of) liver, not elsewhere classified; Z79.52 Long term (current) use of systemic steroids
CPT/HCPCS: 12345; 36415; 36416; 71045; 74176; 74220; 76882; 80048; 80053; 82274; 82962; 83630; 85025; 87040; 87493; 87506; 87631; 87635; 87804; 93005; 96365; 96372; 96375; 96376; 99285; C9113; G0378; J1720; J1956; J2405; J2550; J3480; J3490; J7040; J8499; J8597; Q9963

== ENCOUNTER 2021-05-05 13:52 | Inpatient (IN) | payer MEDICARE, OTHER, SELFPAY ==
--- NOTE | 2021-05-05 14:13 | XR_ITS ---
WS: [id number] XR chest 1V portable [id number] REASON FOR EXAM: dyspnea FINDINGS: The chest is unchanged compared to previous examination of 04/11/2021. Mild tortuosity of thoracic aorta without aneurysmal dilatation. Heart at the upper limits of normal in size. Calcified granulomatous changes bilaterally. No acute pulmonary parenchymal or pleural abnormality. XR/XR chest 1V portable [id number] IMPRESSION: Chest unchanged compared to prior study with no acute abnormality.
--- NOTE | 2021-05-05 14:14 | W.ED.GENADLT ---
HPI - General Adult General: Chief complaint: Shortness of Breath/Dyspnea Stated complaint: FLUID EXCESS/ SOB Time Seen by Provider: 05/05/21 14:12 History of Present Illness: CC: Dyspnea HPI: This is a [70] yo patient w/ hx of CHF on bumex 4mg daily, ansarca, CKD adrenal insufficiency, HTN presenting ot the ED with dyspnea and worsening weight gain x 11 lbs over the last 3 days in the setting of increased lower extremity swelling. Endorses of orthopnea and increased pillow usage at night. At baseline, patient takes bumex 4mg. Denies chest pain, N/V, diaphoresis, shoulder pain pain or back pain. Patient has no fever/chill, or sputum production. No GI or other complaints. Denies any pleuritic chest pain, recent surgery/immobilization/travel, or hematemesis or hx of VTE in the past. Patient is followed by Dr. Sellers Onset: acute on chronic Duration: acutely ongoing for the last 3 days Location: home Severity: moderate/severe Associated symptoms: Reports dyspnea; Deny chest pain, nausea, rash, palpitations or vomiting Review of Systems Const: Denies: fever(s) or chills Eyes: Denies: change in vision ENMT: Denies: mouth pain Card: Denies: chest pain or palpitations Resp: Reports: dyspnea; Denies: non-productive cough GI: Reports: other (+abdominal swelling); Denies: abdominal pain, nausea, vomiting or diarrhea : Denies: dysuria Musc: Reports: other (+leg swelling); Denies: extremity pain Skin/Breast: Denies: rash or new lesions Neuro: Denies: weakness in extremities Psych: Reports: other (Normal mood) Charli/Lymph: Denies: easy bruising [facility] ED PFSH: Medical History Adrenal insufficiency DVT prophylaxis- eliquis GI prophylaxis- protonix Anasarca Benign essential hypertension with target blood pressure below 140/90 Central hypothyroidism CHF (congestive heart failure) Chronic back pain Follows at pain clinic for periodic injections COVID-19 (~09/2020) Edema Facet arthritis, degenerative, lumbar spine Gastroenteritis History of anaphylaxis History of atrial fibrillation Intermittent, has not required long-term anticoagulation or focused treatment History of COVID-19 HTN (hypertension) Hyperaldosteronism 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 Current gender identity: Female Female Reproductive History: Date of last menstrual period: 01/22/21 Physical Exam Const: COMMON NORMALS: alert HENMT: COMMON NORMALS: atraumatic HEAD & SCALP: atraumatic MOUTH: moist mucous membranes not abnormal Eye: COMMON NORMALS: EOMs intact bilaterally and conjunctivae normal CONJUNCTIVA: Yes conjunctivae normal Neck/C-Spine: COMMON NORMALS: full ROM and supple Resp: COMMON NORMALS: normal respiratory effort OTHER: +coarse breath sounds b/l Cardio: COMMON NORMALS: regular rate RATE: regular rate GI: COMMON NORMALS: Soft to palpation and non-tender PALPATION: Yes Soft to palpation Extremity: COMMON NORMALS: full ROM Neuro: SENSORIUM/ORIENTATION: Yes alert MOTOR EXAM: No Abnormal motor strength present and Other motor observations present (no focal motor deficits) Psych: COMMON NORMALS: speech normal SPEECH: Yes normal speech MOOD & AFFECT: Yes euthymic mood Course Vital Signs: Vital signs: Vital Signs Temperature 98.6 F 05/05/21 14:17 Pulse Rate 98 05/05/21 14:17 Respiratory Rate 22 H 05/05/21 14:17 Blood Pressure 123/61 05/05/21 14:17 Pulse Oximetry 98 05/05/21 14:17 MDM - General Adult Medical Decision Making [70]yo pt w/ hx of CHFresenting to the ED with dyspnea and increased work of breathing concerning acute on chronic CHF exacerbation. Physical exam consistent signs of fluid overload including crackles bilaterally and LE swelling. Workup today: ECG, CBC, BMP, Troponin, BNP, CXR. Intervention: IV lasix after potassium check Based on history, exam and findings, presentation most consistent with acute on chronic heart failure. Low suspicion for PNA, ACS, tamponade, aortic dissection. EKG: No STEMI and no evidence of Brugada?s sign, delta wave, epsilon wave, significantly prolonged QTc, or malignant arrhythmia. [2:20pm] On reassessment, patient is stable and patient is mentating without issues. S/p lasix in the ED. No signs of increased work of breathing requiring BIPAP. Given the current presentation, I believe the patient would benefit from inpatient admission for continued diuresis and fluid removal. I have discussed a plan with a patient who agrees with inpatient admission. WBC of 21K, afebrile, XR negative. Clear what is the source of the leukocytosis. Do not suspect suspect pneumonia at this time. Will defer antibiotics to the inpatient team. proBNP appears to be largely similar less than 400. Patient will be admitted to the hospital for management of volume overload. Disposition: Admission Lab Data : 05/05/21 14:46 05/05/21 14:46 Radiology Impressions Chest X-Ray 05/05/21 14:13 IMPRESSION: Chest unchanged compared to prior study with no acute abnormality. Laboratory Results WBC 21.2 10^3/uL (4.0-10.0) H 05/05/21 14:46 RBC 4.86 10^6/uL (4.1-5.3) 05/05/21 14:46 Hgb 10.4 g/dL (11.5-15.3) L 05/05/21 14:46 Hct 36.9 % (37.0-47.0) L 05/05/21 14:46 MCV 75.9 fl (81-99) L 05/05/21 14:46 MCH 21.4 pg (28.0-34.0) L 05/05/21 14:46 MCHC 28.2 g/dL (30.0-36.0) L 05/05/21 14:46 RDW 17.0 % (12.1-15.1) H 05/05/21 14:46 Plt Count 348 10^3/cmm (130-400) 05/05/21 14:46 MPV 10.3 fL (7.4-10.4) 05/05/21 14:46 Neut % (Auto) 81.2 % 05/05/21 14:46 Lymph % (Auto) 7.5 % 05/05/21 14:46 [place] % (Auto) 6.9 % 05/05/21 14:46 Eos % (Auto) 2.7 % 05/05/21 14:46 Baso % (Auto) 0.7 % 05/05/21 14:46 Neut # (Auto) 17.19 10^3/uL (1.8-7.7) H 05/05/21 14:46 Lymph # (Auto) 1.6 10^3/uL (0.8-4.8) 05/05/21 14:46 [place] # (Auto) 1.5 10^3/uL (0.2-0.9) H 05/05/21 14:46 Eos # (Auto) 0.6 10^3/uL (0.0-0.8) 05/05/21 14:46 Baso # (Auto) 0.1 10^3/uL (0.0-0.1) 05/05/21 14:46 Nucleated RBC % (auto) 0.1 % 05/05/21 14:46 Nucleated RBCs # 0.0 /100WBC 05/05/21 14:46 Sodium 138 mmol/L (136-145) 05/05/21 14:46 Potassium 4.9 mmol/L (3.5-5.1) 05/05/21 14:46 Chloride 99 mmol/L (98-107) 05/05/21 14:46 Carbon Dioxide 23 mmol/L (22-29) 05/05/21 14:46 Anion Gap 20.9 (5-19) H 05/05/21 14:46 BUN 21 mg/dL (8-23) 05/05/21 14:46 Creatinine 1.4 mg/dL (0.5-0.9) H 05/05/21 14:46 GFR Calculation 37.4 mL/min (90-130) L 05/05/21 14:46 Glucose 209 mg/dL (65-115) H 05/05/21 14:46 Calculated Osmolality 295 mOsm/kg (285-295) 05/05/21 14:46 Calcium 10.3 mg/dL (8.5-10.5) 05/05/21 14:46 Magnesium 2.2 mg/dL (1.7-2.3) 05/05/21 14:46 Troponin T Baseline 18 ng/L (0-10) H 05/05/21 14:46 NT-Pro-B Natriuret Pep 167 pg/mL (0-125) H 05/05/21 14:46 Imaging Data Other Imaging: Radiologist's impression: [employer] [address] [address] XRay Report Signed Patient: Carolyn Alexander Unit #: [id number] : 1950 Age/Sex: 70 / F ADM Date: 05/05/21 Loc: ER Room/Bed: Attending Dr: Ordering Provider/Ordering MD: Iwona Covarrubias MD Date of Service: 05/05/21 Procedure(s): XR chest 1V portable [id number] Accession Number(s): [id number] Report Number: [id number] WS: [id number] XR chest 1V portable [id number] REASON FOR EXAM: dyspnea FINDINGS: The chest is unchanged compared to previous examination of 04/11/2021. Mild tortuosity of thoracic aorta without aneurysmal dilatation. Heart at the upper limits of normal in size. Calcified granulomatous changes bilaterally. No acute pulmonary parenchymal or pleural abnormality. XR/XR chest 1V portable [id number] IMPRESSION: Chest unchanged compared to prior study with no acute abnormality. ? ? Dictated By: Donovan Brown Jr, MD Signed By: Donovan Brown Jr, MD Signed Date/Time: 05/05/21 1521 DD/ 1519 Discharge Plan Discharge Patient Disposition: Admitted As Inpatient Clinical Impression: CHF exacerbation, Volume overload Condition: Stable Coding Level of Care Code ED Ruby Developer for Chg Fwd Exam Comprehensive
[2021-05-05 14:17] VITALS: BP 123/61; PULSE 98; RESP 22; TEMP 37; O2SAT 98; BMI 25.2
[2021-05-05 14:54] LABS: Basophils # 0.1 10^3/uL (0.0-0.1); Basophils % 0.7 %; Eosinophils # 0.6 10^3/uL (0.0-0.8); Eosinophils % 2.7 %; Hematocrit 36.9 % (37.0-47.0); Hemoglobin 10.4 g/dL (11.5-15.3); Lymphocytes # 1.6 10^3/uL (0.8-4.8); Lymphocytes % 7.5 %; Mean Corpuscular HGB Conc 28.2 g/dL (30.0-36.0); Mean Corpuscular Hemoglobin 21.4 pg (28.0-34.0); Mean Corpuscular Volume 75.9 fl (81-99); Mean Platelet Volume 10.3 fL (7.4-10.4); Monocytes # 1.5 10^3/uL (0.2-0.9); Monocytes % 6.9 %; Neutrophils # 17.19 10^3/uL (1.8-7.7); Neutrophils % 81.2 %; Nucleated Red Blood Cells % 0.1 %; Platelet Count 348 10^3/cmm (130-400); Red Blood Count 4.86 10^6/uL (4.1-5.3); White Blood Count 21.2 10^3/uL (4.0-10.0)
[2021-05-05 15:28] LABS: Troponin(5th) Baseline 18 ng/L (0-10)
[2021-05-05 15:36] LABS: Anion Gap 20.9 (5-19); Blood Urea Nitrogen 21 mg/dL (8-23); Calcium 10.3 mg/dL (8.5-10.5); Carbon Dioxide 23 mmol/L (22-29); Chloride 99 mmol/L (98-107); Glomerular Filtration Rate 37.4 mL/min (90-130); Glucose 209 mg/dL (65-115); Magnesium 2.2 mg/dL (1.7-2.3); NT Pro B Type Natriuretic Pept 167 pg/mL (0-125); Osmolality Calculated 295 mOsm/kg (285-295); Potassium 4.9 mmol/L (3.5-5.1); Sodium 138 mmol/L (136-145)
--- NOTE | 2021-05-05 16:13 | ECG_ITS ---
[facility] Test Date: 2021-05-05 Pat Name: Carolyn Alexander Department: Room: Gender: Female Spirits Model: : 1950 Requested By: Iwona Covarrubias Order Number: [id number] Laina MD: Jaki Leavitt M.D. Measurements Intervals [place] Rate: 97 P: 38 HI: 150 QRS: -16 QRSD: 86 T: 39 QT: 369 QTc: 469 Interpretive Statements SINUS RHYTHM LOW QRS VOLTAGE IN PRECORDIAL LEADS [QRS DEFLECTION < 1.0 mV IN CHEST LEADS] POSSIBLE ANTERIOR MYOCARDIAL INFARCTION , OF INDETERMINATE AGE [30 ms Q WAVE IN V3/V4, OR R < 0.2 mV IN V4] Compared to ECG 05/05/2021 14:20:20 No significant changes Electronically Signed On 05-05-2021 19:37:53 [employer] by Jaki Leavitt M.D. [id number]
[2021-05-05 17:07] LABS: Bilirubin Urine Neg (Negative); Blood Urine 2+ (Negative); Glucose Urine UA Norm (Normal); Ketones Urine Negative (Negative); Leukocyte Esterase Urine Negative (Negative); Nitrate Urine Negative (Negative); Protein Urine Neg (Negative); Sulfosalicylic Acid Urine Negative (Negative); Urine Appearance Clear (CLEAR); Urine Color Yellow (Yellow); Urobilinogen Urine Neg (Negative); pH Urine 8 (5-7)
[2021-05-05 17:08] LABS: Add Urine Culture? No; RBC Urine RARE /hpf (0-2); Squamous Epithelial Cell Urine RARE /hpf (0-5); WBC Urine RARE /hpf (0-5)
--- NOTE | 2021-05-05 17:13 | P.HP_ITS ---
Providers/Chief Complaint Primary Care Provider: Piedad Sandhu MD Chief Complaint: FLUID EXCESS/ SOB History of Present Illness Carolyn Alexander is a 70 year old female who has multiple comorbid condition presented today with worsening shortness of breath orthopnea and PND. She does carry history of grade 1 diastolic dysfunction EF 72%, hepatomegaly hypothyroidism, pituitary adenoma status post resection, adrenal insufficiency, atrial fibrillation, morbid obesity, KP, hypertension. Her dry weight is 130 pounds currently she has been 150 pounds, and last 2 days she has gained 11 pounds, she is noting orthopnea, PND. She is endorsing shortness of breath on minimal activity/exertion. She is not able to care for self at home she takes metolazone on as needed basis however takes Bumex 2 mg daily. She is scheduled for her sleep study on 05/18. Does not have any oxygen or CPAP machine yet. Diagnostics in the ER revealed CHF exacerbation she was given 80 mg of IV Lasix, high BNP, creatinine slightly more than her baseline hemoglobin 10.4, she was saturating well on room air Review of Systems Const: Reports: body aches and fatigue; Denies: fever(s) Eyes: Denies: change in vision ENMT: Denies: throat pain Card: Reports: dyspnea on exertion and orthopnea Resp: Reports: dyspnea GI: Denies: abdominal pain : Denies: flank pain Musc: Denies: neck pain Skin/Breast: Denies: rash Neuro: Denies: headache(s) Psych: Reports: anxiety Endo: Denies: polyuria Charli/Lymph: Denies: easy bruising All/Imm: Denies: urticaria Medications/Allergies Home Medications Medication Instructions Recorded Confirmed Last Taken Type epinephrine 0.3 mg/0.3 mL 0.3 mg (0.3 mL) IM Q10M PRN #2 ea 04/20/20 05/05/21 Unknown Rx injection, auto-injector (EpiPen 2-Nabeel) levothyroxine 175 mcg tablet 175 mcg PO QAM 01/19/21 05/05/21 05/05/21 History diabetic supplies, miscellan. #1 ea 01/21/21 05/05/21 Unknown Rx miscellaneous medical supply #1 ea 02/05/21 05/05/21 Unknown Rx pramipexole 0.125 mg tablet 0.25 mg PO BEDTIME 02/13/21 05/05/21 05/04/21 History blood sugar diagnostic (Pharmacist #50 ea 03/04/21 05/05/21 Unknown Rx Choice) blood-glucose meter,continuous #1 ea 03/04/21 05/05/21 Unknown Rx lancets 30 gauge (Easy Touch #100 ea 03/04/21 05/05/21 Unknown Rx Lancets) hydrocortisone 10 mg tablet See Rx Instructions .ROUTE 04/05/21 05/05/21 05/05/21 Rx .COMPLEX #450 tab potassium chloride 20 mEq 40 meq PO BID #360 tab 04/06/21 05/05/21 05/05/21 Rx tablet,extended release(part/cryst) (Klor-Con M) allopurinol 100 mg tablet 100 mg PO DAILY PRN 04/11/21 05/05/21 Unknown History amiodarone 200 mg tablet 200 mg PO DAILY 04/11/21 05/05/21 05/05/21 History alprazolam 0.25 mg tablet 0.25 mg PO TID PRN 30 Days #90 tab 04/16/21 05/05/21 Unknown Rx bumetanide 1 mg tablet 2 mg PO DAILY 90 Days #180 tab 04/20/21 05/05/21 05/05/21 Rx cetirizine 10 mg tablet (Zyrtec) 10 mg PO DAILY PRN 90 Days #90 tab 04/20/21 05/05/21 Unknown Rx gabapentin 600 mg tablet 600 mg PO BID 04/20/21 05/05/21 05/05/21 History losartan 50 mg tablet 50 mg PO DAILY 90 Days #90 tab 04/20/21 05/05/21 05/05/21 Rx tolterodine 4 mg capsule,extended 4 mg PO Q24H 90 Days #90 cap 05/04/21 05/05/21 Unknown Rx release 24 hr (Detrol LA) apixaban 2.5 mg tablet 2.5 mg PO BID 05/05/21 05/05/21 05/05/21 History clonidine HCl 0.1 mg tablet 0.1 mg PO Q12H PRN 05/05/21 05/05/21 Unknown History furosemide 80 mg tablet (Lasix) 80 mg PO BID 05/05/21 05/05/21 05/05/21 History 120 MG liraglutide (weight loss) 3 mg/0.5 3 mg SUBCUT Q7D 05/05/21 05/05/21 04/30/21 History mL (18 mg/3 mL) subcut pen injector (Agustin) metoclopramide HCl 5 mg tablet 5 mg PO .TIDWM & AT BEDTIME 05/05/21 05/05/21 05/05/21 History (Reglan) metolazone 5 mg tablet 2.5 mg PO DAILY PRN 05/05/21 05/05/21 05/05/21 History metoprolol tartrate 25 mg tablet 50 mg PO DAILY 05/05/21 05/05/21 05/05/21 History omeprazole 40 mg capsule,delayed 40 mg PO DAILY 05/05/21 05/05/21 05/05/21 History release polyethylene glycol 3350 17 17 g PO DAILY PRN 05/05/21 05/05/21 Unknown History gram/dose oral powder (Miralax) Allergies Allergy/AdvReac Type Severity Reaction Status Date / Time acetaminophen [From Tylenol] Allergy ALGY-Hives Verified 04/05/21 10:21 azithromycin Allergy ALGY-Anaphy Verified 04/05/21 10:21 laxis benzocaine Allergy ALGY-Hives Verified 04/05/21 10:21 butamben [From Cetacaine] Allergy ALGY-Swell Verified 04/05/21 10:21 Lip/Tongue/Throat codeine Allergy ALGY-Hives Verified 04/05/21 10:21 fentanyl Allergy ALGY-Anaphy Verified 04/05/21 10:21 laxis hydrocodone [From Vicodin] Allergy ALGY-Hives Verified 04/05/21 10:21 hydromorphone [From Dilaudid] Allergy ADR-Vomitin Verified 04/05/21 10:21 g Iodinated Contrast Media Allergy ALGY-Anaphy Verified 04/05/21 10:21 laxis liothyronine Allergy ADR-Nausea Verified 04/05/21 10:21 meperidine [From Demerol] Allergy Unknown Verified 04/05/21 10:21 morphine Allergy ALGY-Anaphy Verified 04/05/21 10:21 laxis nitrofurantoin Allergy ALGY-Joint Verified 04/05/21 10:21 [From Macrobid] Pain oxycodone [From Percocet] Allergy ALGY-Hives Verified 04/05/21 10:21 penicillin V Allergy ALGY-Hives Verified 04/05/21 10:21 Penicillins Allergy Unknown Verified 04/05/21 10:21 Phenothiazines Allergy ALGY-Anaphy Verified 04/05/21 10:21 laxis pregabalin [From Lyrica] Allergy ADV-Weaknes Verified 04/05/21 10:21 s procaine Allergy ALGY-Hives Verified 04/05/21 10:21 prochlorperazine Allergy ALGY-Anaphy Verified 04/05/21 10:21 [From Compazine] laxis Sulfa (Sulfonamide Allergy Unknown Verified 04/05/21 10:21 Antibiotics) tetracaine [From Cetacaine] Allergy ALGY-Swell Verified 04/05/21 10:21 Lip/Tongue/Throat PFSH Acute PFSH: Medical History Adrenal insufficiency DVT prophylaxis- eliquis GI prophylaxis- protonix Anasarca Benign essential hypertension with target blood pressure below 140/90 Central hypothyroidism CHF (congestive heart failure) Chronic back pain Follows at pain clinic for periodic injections COVID-19 (~09/2020) Edema Facet arthritis, degenerative, lumbar spine Gastroenteritis History of anaphylaxis History of atrial fibrillation Intermittent, has not required long-term anticoagulation or focused treatment History of COVID-19 HTN (hypertension) Hyperaldosteronism 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 Current gender identity: Female Female Reproductive History: Date of last menstrual period: 01/22/21 Vitals/I&O/Wt Last Vital Signs Temp 98.6 F 05/05/21 14:17 Pulse 98 05/05/21 14:17 Resp 22 H 05/05/21 14:17 BP 123/61 05/05/21 14:17 Pulse Ox 98 05/05/21 14:17 Weight last 48 hrs Weight 68.946 kg Physical Exam Narrative: Appears stated age Clinically fluid overloaded Saturating well on room air Nonfocal neuro exam 2+ pitting edema of lower extremities Edema extending up to her abdominal wall Awake and alert Nonfocal neuro exam Cooperative Doing well on room air no audible stridor or wheezing S1, S2 variable Data : 05/05/21 14:46 05/05/21 14:46 A&P Assessment and plan (1) CHF exacerbation: Status: Acute (2) Volume overload: Status: Acute (3) Adrenal insufficiency: Status: Acute (4) Fatigue: Status: Acute Qualifiers: Fatigue type: unspecified Qualified Code(s): R53.83 - Other fatigue (5) History of atrial fibrillation: Status: Acute (6) Anasarca: Status: Acute (7) Obesity: Status: Acute (8) KP (obstructive sleep apnea): Status: Acute Plan Acute CHF exacerbation with underlying anasarca Preserved action fraction heart rate exacerbation most likely due to underlying untreated sleep apnea She has sleep study scheduled on 05/18 We will start her on aggressive IV Bumex, CPAP at night I would not repeat echo at this time No active chest pain Cardiac diet A. fib without RVR continue AV andrew blocking agent along anticoagulating agent Potassium 4.9 Chronic kidney disease without acute exacerbation creatinine seems to be around baseline, I do anticipate improvement with IV diuretics Patient is deconditioned might need prison placement Covid PCR is pending Chest x-ray consistent with pulmonary edema Full code Attestations Medical Necessity Statement*: More than 2 midnights anticipated Time Spent in Patient Care: 35 minutes Coding Level of Care Code Acute Clinical Care Coordinator for Chg Fwd Diagnoses CHF exacerbation I50.9 Volume overload E87.70 Adrenal insufficiency E27.40 Fatigue R53.83 Fatigue type: unspecified History of atrial fibrillation Z86.79 Anasarca R60.1 Obesity E66.9 KP (obstructive sleep apnea) G47.33
[2021-05-05 17:51] LABS: Troponin 5 2HR 12.48 ng/L (0-10); Troponin 5 2HR Delta -5.52 ABS# (0-10)
[2021-05-05] MEDS: FUROsemide 10 mg/mL SDV 10mL 80 MG IVP (17:57)
[2021-05-05] MEDS: gabapentin 300 mg Capsule 600 MG PO (18:01)
[2021-05-05] MEDS: potassium chloride ER 20 mEq Tablet 40 MEQ PO (18:02)
[2021-05-05] MEDS: apixaban 5 mg Tablet 2.5 MG PO (18:02)
[2021-05-05 18:16] VITALS: BP 132/82; PULSE 100; RESP 23; O2SAT 95
--- NOTE | 2021-05-05 20:13 | ECG_ITS ---
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 Measurements Intervals [place] Rate: 95 P: 47 MO: 142 QRS: -26 QRSD: 86 T: 39 QT: 358 QTc: 451 Interpretive Statements SINUS RHYTHM LOW QRS VOLTAGE IN PRECORDIAL LEADS [QRS DEFLECTION < 1.0 mV IN CHEST LEADS] POSSIBLE ANTERIOR MYOCARDIAL INFARCTION , PROBABLY OLD [30 ms Q WAVE IN V3/V4, OR R < 0.2 mV IN V4] Compared to ECG 04/11/2021 12:31:38 Low QRS voltage now present Myocardial infarct finding now present T-wave abnormality no longer present Possible ischemia no longer present Electronically Signed On 05-05-2021 19:38:15 COMPUTING ARCHITECT by Jaki Leavitt M.D. [id number]
[2021-05-05 20:51] VITALS: BP 117/88; PULSE 107; RESP 27; O2SAT 93
[2021-05-05 21:44] VITALS: BP 117/88; PULSE 107; O2SAT 93
[2021-05-05 21:53] VITALS: PULSE 78; RESP 18; O2SAT 96
[2021-05-05 21:58] VITALS: BP 105/66; PULSE 100; RESP 18; TEMP 36.8; O2SAT 94
[2021-05-05 22:15] VITALS: BMI 60.2
[2021-05-05 22:17] LABS: Troponin 5 6HR 12.52 ng/L (0-10)
[2021-05-05 22:19] LABS: Troponin 5 6HR Delta -5.48 ng/L (0-12)
[2021-05-05] MEDS: bumetanide 0.25 mg/mL SDV 10 mL 2 MG IVP (23:05)
[2021-05-06] VITALS (12 sets, daily range): BP systolic 79–125; BP diastolic 51–82; PULSE 67–93; RESP 16–20; TEMP 36.9–37.7; O2SAT 90–96
[2021-05-06 05:24] LABS: Basophils # 0.1 10^3/uL (0.0-0.1); Basophils % 0.7 %; Eosinophils # 0.7 10^3/uL (0.0-0.8); Eosinophils % 3.7 %; Hematocrit 36.3 % (37.0-47.0); Hemoglobin 10.2 g/dL (11.5-15.3); Lymphocytes # 3.2 10^3/uL (0.8-4.8); Lymphocytes % 17.7 %; Mean Corpuscular HGB Conc 28.1 g/dL (30.0-36.0); Mean Corpuscular Hemoglobin 21.4 pg (28.0-34.0); Mean Corpuscular Volume 76.1 fl (81-99); Mean Platelet Volume 10.2 fL (7.4-10.4); Monocytes # 1.6 10^3/uL (0.2-0.9); Monocytes % 8.6 %; Neutrophils # 12.45 10^3/uL (1.8-7.7); Neutrophils % 68.1 %; Nucleated Red Blood Cells % 0 %; Platelet Count 321 10^3/cmm (130-400); Red Blood Count 4.77 10^6/uL (4.1-5.3); White Blood Count 18.3 10^3/uL (4.0-10.0)
[2021-05-06] MEDS: bumetanide 0.25 mg/mL SDV 10 mL 2 MG IVP ×2 (05:44→13:43)
[2021-05-06] MEDS: levothyroxine 175 mcg Tablet PO (05:44)
[2021-05-06 05:46] LABS: Alanine Aminotransferase 19 U/L (0-33); Albumin Level 3.9 g/dL (3.5-5.2); Alkaline Phosphatase 123 IU/L (35-105); Anion Gap 17.4 (5-19); Aspartate Amino Transferase 16 U/L (0-32); Blood Urea Nitrogen 21 mg/dL (8-23); Calcium 8.6 mg/dL (8.5-10.5); Carbon Dioxide 26 mmol/L (22-29); Chloride 94 mmol/L (98-107); Globulin 2.7 g/dL (1.3-4.6); Glomerular Filtration Rate 44.7 mL/min (90-130); Glucose 232 mg/dL (65-115); Magnesium 2.3 mg/dL (1.7-2.3); Osmolality Calculated 288 mOsm/kg (285-295); Potassium 3.4 mmol/L (3.5-5.1); Sodium 134 mmol/L (136-145); Total Bilirubin 0.4 mg/dL (0.15-1.2); Total Protein 6.6 g/dL (6.6-8.7)
[2021-05-06 06:44] LABS: Glucose Point of Care 204 mg/dL (70-110)
[2021-05-06] MEDS: metoprolol tartrate 25 mg Tablet 50 MG PO (08:40)
[2021-05-06] MEDS: gabapentin 300 mg Capsule 600 MG PO ×2 (08:40→17:36)
[2021-05-06] MEDS: metOLazone 5 MG Tablet 2.5 MG PO (08:41)
[2021-05-06] MEDS: losartan 50 mg Tablet PO (08:41)
[2021-05-06] MEDS: apixaban 5 mg Tablet 2.5 MG PO ×2 (08:41→17:36)
[2021-05-06] MEDS: potassium chloride ER 20 mEq Tablet 40 MEQ PO ×2 (08:41→17:39)
[2021-05-06] MEDS: pantoprazole DR 40 mg Tablet PO (08:41)
[2021-05-06] MEDS: amiodarone 200 mg Tablet PO (08:41)
[2021-05-06] MEDS: insulin lispro 100 unit/1 mL SUBCUT ×3 (08:42→17:36)
--- NOTE | 2021-05-06 10:17 | PC.CHAP ---
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 quilting machine helper visit [] Patient/Family/Request visit [] Outpatient visit [] Follow-up visit [] Physician referral [] Code/Alert [x] Routine visit [] Staff referral [] Actively dying [] Patient sleeping [] Family support [] [] Out of room [] Palliative care [] [x] Receiving care in room [] Pre-surgical visit [] Trauma [x] Long length of stay [] ICU visit [] Other: Relational/Emotional Strength [x] Patient feels connected with others/family/visitors/staff [] Distress [] Loneliness/isolation [] Abandonment Spirituality of Patient [x] Person of Minoo [] Attends Yarsanism of their [place]ino[place] [x] Believes in Prayer [] Reads Bible or Temple materials [] There are Spiritual issues to be addressed Experimental Flight Test Mechanic Interventions [x] Prayer [x] Active listening [x] Non-anxious presence [x] Spiritual/emotional support [] Crisis/trauma care [x] Spiritual counseling [] Bereavement support [] Provided bereavement packet [] Provided Bible/devotional materials [] Provided toy/stuffed animal, coloring book to patient or family member [] Provided Communion [] Anointing/[place] [] Salvation [x] Completed spiritual assessment [] Other: Impact on Illness or Injury [] Angry [] Fearful [x] Anxious [] Often cries [] Exhaustion [x] Unable to work [] Unable to attend pentecostal [] Unable to walk/stand [] Unable to read [] Unable to drive [] Unable to eat/drink [] Unable to sleep [] Unable to be with family [] Patient intubated [] Other: Summary she is senior fell had surgery on hip will need rehab and then see how will she does +1 Son is making her health decions Time spent with patient 10 mins
[2021-05-06 13:02] LABS: Quest SARS-CoV-2 RNA NOT DETECTED (NOT DETECTED)
--- NOTE | 2021-05-06 14:24 | PM.PN ---
Subjective Subjective: Patient is stating that she is not able to walk because of pain in her legs and edema will request PT evaluation Vitals/I&O/Wt Last Vital Signs Temp 98.4 F 05/06/21 12:00 Pulse 67 05/06/21 12:00 Resp 18 05/06/21 12:00 BP 102/64 05/06/21 12:00 Pulse Ox 96 05/06/21 12:00 05/05/21 05/06/21 05/06/21 22:59 06:59 14:59 Intake Total 470 / 470 Output Total 2350 / 2350 Balance -2350 / -2350 470 / 470 Weight last 48 hrs Weight 164.427 kg Weight 68.946 kg Physical Exam Narrative: She was sitting in a recliner Saturating well on room air Clinically looks fluid overloaded Distended abdomen with obesity S1, S2 Variable EOMI, PERRLA Nonfocal neuro exam 3+ pitting edema of legs Venous stasis dermatitis Urinary Catheter Management: Zurita: Cath Placed During This Visit: yes Reason for Continuing Indwelling Catheter: Other Urinary Catheter Date of Insertion: 05/05/21 Urinary Catheter Time of Insertion: 17:45 Data : 05/06/21 04:11 05/06/21 04:11 A&P Assessment and plan (1) CHF exacerbation: Status: Acute (2) Volume overload: Status: Acute (3) Adrenal insufficiency: Status: Acute (4) Fatigue: Status: Acute Qualifiers: Fatigue type: unspecified Qualified Code(s): R53.83 - Other fatigue (5) Anemia: Status: Acute (6) PVD (peripheral vascular disease): Status: Acute Plan Preserved ejection fraction heart failure exacerbation Continue aggressive diuretics Zurita catheter for accurate output For neuropathic pain and hypervolemia of legs continue diuretics and gabapentin, we should avoid ibuprofen because of heart failure history Will request PT evaluation today chronic kidney disease related to prerenal cardiorenal syndrome, creatinine improved with diuresis Attestations Medical Necessity Statement*: Continue medical management Time Spent in Patient Care: Continue medical management 15 minutes Coding Level of Care Code Acute Leather Stitcher for Chg Fwd Diagnoses CHF exacerbation I50.9 Volume overload E87.70 Adrenal insufficiency E27.40 Fatigue R53.83 Fatigue type: unspecified Anemia D64.9 PVD (peripheral vascular disease) I73.9
--- NOTE | 2021-05-06 14:29 | ECG_ITS ---
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: : 1950 Requested By: Durga Hernandez Order Number: [id number] Reading MD: DURGA JACKSON Measurements Intervals [place] Rate: 69 P: 40 ID: [id number] QRS: -26 QRSD: 89 T: 43 QT: 459 QTc: 494 Interpretive Statements SINUS RHYTHM BORDERLINE LEFT AXIS DEVIATION [QRS AXIS < -20] LOW QRS VOLTAGE IN PRECORDIAL LEADS [QRS DEFLECTION < 1.0 mV IN CHEST LEADS] MINIMAL ST DEPRESSION [0.025+ mV ST DEPRESSION] PROLONGED QT INTERVAL Compared to ECG 05/05/2021 16:09:47 ST (T wave) deviation now present Prolonged QT interval now present Myocardial infarct finding no longer present Electronically Signed On 05-06-2021 21:47:41 COMPLIANCE VICE PRESIDENT by DURGA JACKSON [id number]
[2021-05-06] MEDS: sodium chloride 0.9% 250 ML IV (14:41)
--- NOTE | 2021-05-06 14:45 | PC.NURSE ---
Chest Pain BIOLOGY SPECIMEN TECHNICIAN notified this nurse pt was having chest pain and not feeling well. This nurse assessed pt and found her to be short of breath, chest pain 10/10, seeing red streaks when she opened her eyes. BP 86/65, HR 60s, O2 sat low 80s. Dr. Hernandez notified and orders were given for EKG, troponin series, and 250 mL normal saline bolus. Pt was placed on 2L NC d/t shortness of breath and O2 sat in low 80s. Pt O2 sat 95% on 2L NC. IV bolus started. This nurse stayed in room to monitor pt and take frequent vital signs.
[2021-05-06] MEDS: ondansetron 2 mg/ML SDV 2 mL 4 MG IVP ×2 (16:24→20:44)
[2021-05-06] MEDS: hydrocortisone 100 mg/2 mL SDV IVP (16:45)
[2021-05-06 19:09] LABS: Troponin T (5th) Once 31 ng/L (0-10)
--- NOTE | 2021-05-06 21:30 | XRR_ITS ---
PROCEDURE INFORMATION: Exam: XR Left Knee Exam date and time: 05/06/2021 9:30 PM Age: 70 years old Clinical indication: Injury or trauma; Blunt trauma; Left; Patient HX: Fall. C/O knee pain. Small abrasion to anterior surface of knee. ; Additional info: Patient fall TECHNIQUE: Imaging protocol: XR Left knee. Views: 1 or 2 views. COMPARISON: CR Knee 3 views, LEFT* [id number] 02/08/2016 5:10 AM FINDINGS: Bones/joints: Normal. Soft tissues: Normal. No joint effusion XR/XR knee LT 1-2V [id number] IMPRESSION: No significant findings. No change since 2015
--- NOTE | 2021-05-06 21:30 | XRR_ITS ---
PROCEDURE INFORMATION: Exam: XR Left Shoulder Exam date and time: 05/06/2021 9:30 PM Age: 70 years old Clinical indication: Injury or trauma; Blunt trauma (contusions or hematomas); Left; Patient HX: Fall. C/O shoulder pain. ; Additional info: Patient fall TECHNIQUE: Imaging protocol: XR Left shoulder. Views: 2 or more views. COMPARISON: CR XR shoulder LT min 2V* [id number] 03/02/2021 9:08 AM FINDINGS: Bones/joints: Normal. No dislocation Soft tissues: Enlarged. Other findings: Obesity somewhat limits the exam. XR/XR shoulder LT min 2V* [id number] IMPRESSION: No acute findings
[2021-05-06 21:55] LABS: Glucose Point of Care 176 mg/dL (70-110)
[2021-05-06 21:55] LABS: Glucose Point of Care 309 mg/dL (70-110)
[2021-05-06 21:55] LABS: Glucose Point of Care 164 mg/dL (70-110)
[2021-05-06 21:55] LABS: Glucose Point of Care 156 mg/dL (70-110)
[2021-05-06] MEDS: diphenoxylate/atropine Tablet 1 TAB PO (22:13)
[2021-05-07] VITALS (12 sets, daily range): BP systolic 92–134; BP diastolic 59–75; PULSE 70–88; RESP 16–20; TEMP 36.4–36.8; O2SAT 92–98
[2021-05-07 03:08] LABS: Basophils # 0.1 10^3/uL (0.0-0.1); Basophils % 0.5 %; Eosinophils # 0.1 10^3/uL (0.0-0.8); Eosinophils % 0.4 %; Hematocrit 37.3 % (37.0-47.0); Hemoglobin 10.2 g/dL (11.5-15.3); Lymphocytes # 1.7 10^3/uL (0.8-4.8); Lymphocytes % 6.5 %; Mean Corpuscular HGB Conc 27.3 g/dL (30.0-36.0); Mean Corpuscular Hemoglobin 21.1 pg (28.0-34.0); Mean Corpuscular Volume 77.2 fl (81-99); Mean Platelet Volume 10.8 fL (7.4-10.4); Monocytes # 1.5 10^3/uL (0.2-0.9); Monocytes % 5.8 %; Neutrophils # 21.84 10^3/uL (1.8-7.7); Neutrophils % 84.9 %; Nucleated Red Blood Cells % 0 %; Platelet Count 351 10^3/cmm (130-400); Red Blood Count 4.83 10^6/uL (4.1-5.3); Red Cell Distribution Width 17.2 % (12.1-15.1); White Blood Count 25.7 10^3/uL (4.0-10.0)
[2021-05-07 03:27] LABS: Blood Urea Nitrogen 29 mg/dL (8-23); Calcium 8.7 mg/dL (8.5-10.5); Carbon Dioxide 22 mmol/L (22-29); Chloride 93 mmol/L (98-107); Glomerular Filtration Rate 21.1 mL/min (90-130); Glucose 254 mg/dL (65-115); Osmolality Calculated 286 mOsm/kg (285-295); Sodium 131 mmol/L (136-145)
[2021-05-07] MEDS: diphenoxylate/atropine Tablet 1 TAB PO (03:38)
[2021-05-07] MEDS: hydrocortisone 100 mg/2 mL SDV IVP (05:16)
[2021-05-07] MEDS: levothyroxine 175 mcg Tablet PO (05:17)
[2021-05-07 06:20] LABS: Glucose Point of Care 283 mg/dL (70-110)
[2021-05-07] MEDS: potassium chloride ER 20 mEq Tablet 40 MEQ PO ×2 (08:38→16:48)
[2021-05-07] MEDS: apixaban 5 mg Tablet 2.5 MG PO ×2 (08:38→16:51)
[2021-05-07] MEDS: sennosides-docusate Tablet 1 TAB PO (08:39)
[2021-05-07] MEDS: pantoprazole DR 40 mg Tablet PO (08:39)
[2021-05-07] MEDS: gabapentin 300 mg Capsule 600 MG PO ×2 (08:39→16:48)
[2021-05-07] MEDS: hydrocortisone 100 mg/2 mL SDV 50 MG IVP (08:40)
[2021-05-07] MEDS: amiodarone 200 mg Tablet PO (08:40)
[2021-05-07] MEDS: bumetanide 0.25 mg/mL SDV 10 mL 1 MG IVP (08:41)
[2021-05-07] MEDS: insulin lispro 100 unit/1 mL SUBCUT ×3 (08:56→17:20)
--- NOTE | 2021-05-07 11:25 | P.PN_ITS ---
Subjective Subjective: [facility] [facility] PT to see her today Overnight event noted patient is stating that when she was using bedside commode her right leg became numb because of excessive weight on the tariq of the bedside commode she did not experience any strokelike symptoms, she could not bear weight on her right leg transiently and that is why she fell Vitals/I&O/Wt Last Vital Signs Temp 98.0 F 05/07/21 08:00 Pulse 88 05/07/21 09:22 Resp 18 05/07/21 09:22 BP 134/75 05/07/21 08:00 Pulse Ox 96 05/07/21 09:22 05/06/21 05/07/21 05/07/21 22:59 06:59 14:59 Intake Total 850 / 1320 980 / 2300 Output Total Balance 849 / 1319 980 / 2299 Weight last 48 hrs Weight 172.819 kg Weight 164.427 kg Weight 68.946 kg Physical Exam Narrative: Patient is resting comfortably No strokelike symptoms Anasarca Breathing well on room air at the time of my evaluation Edema of legs Min assist dermatitis No strokelike symptoms EOMI, PERRLA Nonfocal neuro exam Saturating well on room air No audible stridor or wheezing Patient is wearing compression stockings Urinary Catheter Management: Zurita: Cath Placed During This Visit: yes Reason for Continuing Indwelling Catheter: Other Urinary Catheter Date of Insertion: 05/05/21 Urinary Catheter Time of Insertion: 17:45 Data : 05/07/21 02:26 05/07/21 02:26 A&P Assessment and plan (1) CHF exacerbation: Status: Acute (2) Volume overload: Status: Acute (3) Unsteady gait: Status: Acute (4) Adrenal insufficiency: Status: Acute (5) Anemia: Status: Acute (6) Venous (peripheral) insufficiency: Status: Acute (7) PVD (peripheral vascular disease): Status: Acute (8) Acute kidney injury superimposed on chronic kidney disease: Status: Acute Plan Patient is [place] [facility] PT evaluation today Blood pressure is still soft We will give extra dose of stress dose steroids We will escalate her steroid dose Fall yesterday was secondary to numbness due to sitting on the bedside commode, no active strokelike symptoms No active fractures Continue monitoring for now Cut back on her diuretics, Acute on chronic kidney disease secondary to low blood pressure, will escalate diuretics once blood pressure is stable Attestations Medical Necessity Statement*: Continue medical management Time Spent in Patient Care: 15min Coding Level of Care Code Acute Re Recording Mixer for Chg Fwd Diagnoses CHF exacerbation I50.9 Volume overload E87.70 Unsteady gait R26.81 Adrenal insufficiency E27.40 Anemia D64.9 Venous (peripheral) insufficiency I87.2 PVD (peripheral vascular disease) I73.9 Acute kidney injury superimposed on chronic kidney disease N17.9; N18.9
[2021-05-07] MEDS: hydrocortisone 10 mg Tablet 20 MG PO (20:18)
[2021-05-07 21:30] LABS: Glucose Point of Care 351 mg/dL (70-110)
[2021-05-07 21:30] LABS: Glucose Point of Care 373 mg/dL (70-110)
[2021-05-07 21:37] LABS: Glucose Point of Care 282 mg/dL (70-110)
[2021-05-07] MEDS: nystatin powder 15 gm Btl 1 APPLIC TOPICAL (23:50)
[2021-05-08] VITALS (9 sets, daily range): BP systolic 109–119; BP diastolic 61–73; PULSE 69–86; RESP 16–20; TEMP 36.7–36.8; O2SAT 92–96
[2021-05-08] MEDS: levothyroxine 175 mcg Tablet PO (05:28)
[2021-05-08 06:34] LABS: Basophils # 0.1 10^3/uL (0.0-0.1); Basophils % 0.5 %; Eosinophils # 0.5 10^3/uL (0.0-0.8); Eosinophils % 2.4 %; Hematocrit 31.9 % (37.0-47.0); Hemoglobin 9.1 g/dL (11.5-15.3); Lymphocytes # 2.3 10^3/uL (0.8-4.8); Lymphocytes % 11.6 %; Mean Corpuscular HGB Conc 28.5 g/dL (30.0-36.0); Mean Corpuscular Hemoglobin 21.8 pg (28.0-34.0); Mean Corpuscular Volume 76.3 fl (81-99); Mean Platelet Volume 10.9 fL (7.4-10.4); Monocytes # 1.6 10^3/uL (0.2-0.9); Monocytes % 8.1 %; Neutrophils # 15.39 10^3/uL (1.8-7.7); Neutrophils % 76.3 %; Nucleated Red Blood Cells % 0 %; Platelet Count 299 10^3/cmm (130-400); Red Blood Count 4.18 10^6/uL (4.1-5.3); Red Cell Distribution Width 16.9 % (12.1-15.1); White Blood Count 20.2 10^3/uL (4.0-10.0)
[2021-05-08 06:54] LABS: Glucose Point of Care 253 mg/dL (70-110)
[2021-05-08 07:00] LABS: Anion Gap 14.4 (5-19); Blood Urea Nitrogen 27 mg/dL (8-23); Calcium 8.4 mg/dL (8.5-10.5); Carbon Dioxide 27 mmol/L (22-29); Chloride 95 mmol/L (98-107); Glomerular Filtration Rate 32.1 mL/min (90-130); Glucose 284 mg/dL (65-115); Osmolality Calculated 291 mOsm/kg (285-295); Potassium 3.4 mmol/L (3.5-5.1); Sodium 133 mmol/L (136-145)
--- NOTE | 2021-05-08 08:02 | PC.SOCIAL ---
IM follow up explained and copy provided. No questions voiced.
[2021-05-08] MEDS: sennosides-docusate Tablet 1 TAB PO (08:22)
[2021-05-08] MEDS: potassium chloride ER 20 mEq Tablet 40 MEQ PO ×2 (08:22→16:57)
[2021-05-08] MEDS: apixaban 5 mg Tablet 2.5 MG PO ×2 (08:23→16:58)
[2021-05-08] MEDS: amiodarone 200 mg Tablet PO (08:23)
[2021-05-08] MEDS: gabapentin 300 mg Capsule 600 MG PO ×2 (08:25→16:57)
[2021-05-08] MEDS: pantoprazole DR 40 mg Tablet PO (08:26)
[2021-05-08] MEDS: hydrocortisone 10 mg Tablet 30 MG PO (08:34)
[2021-05-08] MEDS: bumetanide 0.25 mg/mL SDV 10 mL 2 MG IVP (08:34)
[2021-05-08] MEDS: insulin lispro 100 unit/1 mL SUBCUT ×3 (08:35→17:23)
[2021-05-08 11:42] LABS: Glucose Point of Care 267 mg/dL (70-110)
[2021-05-08] MEDS: insulin lispro 100 unit/1 mL 10 UNIT SUBCUT (13:07)
[2021-05-08] MEDS: nystatin powder 15 gm Btl 1 APPLIC TOPICAL ×2 (14:29→18:02)
--- NOTE | 2021-05-08 15:27 | P.PN_ITS ---
Subjective Subjective: Discontinue Zurita catheter Blood pressure stable Creatinine improved Decrease Bumex dose We will send UA and culture patient is complaining of dysuria Vitals/I&O/Wt Last Vital Signs Temp 98.3 F 05/08/21 04:00 Pulse 86 05/08/21 11:28 Resp 18 05/08/21 11:28 BP 111/61 05/08/21 11:28 Pulse Ox 94 05/08/21 11:28 05/08/21 05/08/21 05/08/21 06:59 14:59 22:59 Intake Total 620 / 1580 360 / 360 Output Total 700 / 3175 3500 / 3500 Balance -80 / -1595 -3140 / -3140 Weight last 48 hrs Weight 172.819 kg Physical Exam Narrative: Volume overloaded state slightly improved Venous hyperemia of legs improved S1, S2 Morbid obesity No audible stridor or wheezing Saturating well on room air Patient feeling much better today Distended abdomen visceral obesity EOMI, PERRLA Nonfocal neuro exam Urinary Catheter Management: Zurita: Cath Placed During This Visit: yes Reason for Continuing Indwelling Catheter: Other Urinary Catheter Date of Insertion: 05/05/21 Urinary Catheter Time of Insertion: 17:45 Data : 05/08/21 06:01 05/08/21 06:01 A&P Assessment and plan (1) Acute kidney injury superimposed on chronic kidney disease: Status: Acute (2) CHF exacerbation: Status: Acute (3) Volume overload: Status: Acute (4) Fatigue: Status: Acute Qualifiers: Fatigue type: unspecified Qualified Code(s): R53.83 - Other fatigue (5) PVD (peripheral vascular disease): Status: Acute (6) Anasarca: Status: Acute (7) Pulmonary hypertension: Status: Acute (8) Anasarca: Status: Acute (9) Obstructive sleep apnea: Status: Acute Plan Improved with IV Bumex regimen, plan to switch to p.o. 1 g daily Discontinue Zurita catheter today She has history of chronic cystitis, will send UA Her leukocytosis secondary to stress dose steroids which were given, I have increased her steroid regimen to 50 mg a day Awaiting placement to assisted on Monday Acute on chronic kidney disease related to hypotension, did improve, Adequate urine output Full code Consistent carb diet DVT prophylaxis covered with anticoagulating agent Attestations Medical Necessity Statement*: 15 Coding Level of Care Code Acute Framework Developer for Chg Fwd Diagnoses Acute kidney injury superimposed on chronic kidney disease N17.9; N18.9 CHF exacerbation I50.9 Volume overload E87.70 Fatigue R53.83 Fatigue type: unspecified PVD (peripheral vascular disease) I73.9 Anasarca R60.1 Pulmonary hypertension I27.20 Anasarca R60.1 Obstructive sleep apnea G47.33
[2021-05-08 17:05] LABS: Glucose Point of Care 166 mg/dL (70-110)
[2021-05-08] MEDS: hydrocortisone 10 mg Tablet 20 MG PO (20:25)
[2021-05-08 21:22] LABS: Glucose Point of Care 163 mg/dL (70-110)
[2021-05-08 21:46] LABS: Add Urine Culture? Yes; Add Urine Microscopic? YES; Bacteria Urine TRACE /hpf; Bilirubin Urine Neg (Negative); Blood Urine 3+ (Negative); Glucose Urine UA Norm (Normal); Ketones Urine Negative (Negative); Leukocyte Esterase Urine 2+ (Negative); Nitrate Urine Negative (Negative); Protein Urine Trace (Negative); RBC Urine 0-4 /hpf (0-2); Specific Gravity, Urine 1.015 (1.005-1.030); Squamous Epithelial Cell Urine 0-4 /hpf (0-5); Urine Appearance Hazy (CLEAR); Urine Color Yellow (Yellow); Urobilinogen Urine Norm (Negative); WBC Urine TOO NUMEROUS TO CNT /hpf (0-5); pH Urine 6.5 (5-7)
[2021-05-08] MEDS: polyethylene glycol 3350 Pkt 17 gm PO (23:53)
[2021-05-08] MEDS: ALPRAZolam 0.5 mg Tablet 0.25 MG PO (23:58)
[2021-05-09] VITALS (8 sets, daily range): BP systolic 109–143; BP diastolic 57–78; PULSE 70–89; RESP 17–20; TEMP 36.4–37.2; O2SAT 91–97
[2021-05-09] MEDS: levothyroxine 175 mcg Tablet PO (05:14)
[2021-05-09 05:50] LABS: Basophils # 0.1 10^3/uL (0.0-0.1); Basophils % 0.5 %; Eosinophils # 0.7 10^3/uL (0.0-0.8); Eosinophils % 3.6 %; Hematocrit 30.9 % (37.0-47.0); Hemoglobin 8.8 g/dL (11.5-15.3); Lymphocytes # 2.2 10^3/uL (0.8-4.8); Lymphocytes % 12.1 %; Mean Corpuscular HGB Conc 28.5 g/dL (30.0-36.0); Mean Corpuscular Hemoglobin 21.4 pg (28.0-34.0); Mean Platelet Volume 10.6 fL (7.4-10.4); Monocytes # 1.7 10^3/uL (0.2-0.9); Monocytes % 9.2 %; Neutrophils # 13.58 10^3/uL (1.8-7.7); Neutrophils % 73.6 %; Nucleated Red Blood Cells % 0 %; Platelet Count 294 10^3/cmm (130-400); Red Blood Count 4.12 10^6/uL (4.1-5.3); Red Cell Distribution Width 16.6 % (12.1-15.1); White Blood Count 18.5 10^3/uL (4.0-10.0)
[2021-05-09 06:05] LABS: Blood Urea Nitrogen 28 mg/dL (8-23); Calcium 8.4 mg/dL (8.5-10.5); Carbon Dioxide 27 mmol/L (22-29); Chloride 95 mmol/L (98-107); Glomerular Filtration Rate 40.7 mL/min (90-130); Glucose 201 mg/dL (65-115); Osmolality Calculated 291 mOsm/kg (285-295); Sodium 135 mmol/L (136-145)
[2021-05-09 06:12] LABS: Anion Gap 16.6 (5-19); Potassium 3.6 mmol/L (3.5-5.1)
[2021-05-09 06:49] LABS: Glucose Point of Care 204 mg/dL (70-110)
[2021-05-09] MEDS: pantoprazole DR 40 mg Tablet PO (09:23)
[2021-05-09] MEDS: bumetanide 1 mg Tablet PO ×2 (09:23→16:53)
[2021-05-09] MEDS: gabapentin 300 mg Capsule 600 MG PO ×3 (09:23→16:54)
[2021-05-09] MEDS: sennosides-docusate Tablet 1 TAB PO (09:23)
[2021-05-09] MEDS: potassium chloride ER 20 mEq Tablet 40 MEQ PO ×2 (09:24→16:54)
[2021-05-09] MEDS: apixaban 5 mg Tablet 2.5 MG PO ×2 (09:24→16:53)
[2021-05-09] MEDS: amiodarone 200 mg Tablet PO (09:25)
[2021-05-09] MEDS: hydrocortisone 10 mg Tablet 30 MG PO (09:25)
[2021-05-09] MEDS: insulin lispro 100 unit/1 mL SUBCUT ×3 (09:26→17:03)
--- NOTE | 2021-05-09 10:40 | P.PN_ITS ---
Subjective Subjective: Patient is endorsing feeling better, he is she was asked me to change her diet to regular I did apologize for because of her hyperglycemia I will not be able to change her diet We will increase her Bumex to 1 mg twice a day Blood pressure is stable, We will start on antibiotic for her recurrent UTI abnormal UA noted No fever We will add CPAP for tonight which is very important for her Today we did discuss what causes CHF exacerbation Vitals/I&O/Wt Last Vital Signs Temp 98.1 F 05/09/21 07:38 Pulse 70 05/09/21 10:01 Resp 18 05/09/21 10:01 BP 115/67 05/09/21 07:38 Pulse Ox 95 05/09/21 10:01 05/08/21 05/09/21 05/09/21 22:59 06:59 14:59 Intake Total 1680 / 2040 300 / 2340 240 / 240 Output Total 895 / 4395 900 / 5295 Balance 785 / -2355 -600 / -2955 240 / 240 Weight last 48 hrs Weight 173.182 kg Physical Exam Narrative: Morbidly obese Anasarca seems to be improving Hyperemia of legs improved Doing well on room air Bilateral breath sounds which are clear no signs of crackles Distended abdomen with obesity Awake and alert Nonfocal neuro exam Urinary Catheter Management: Zurita: Cath Placed During This Visit: yes, but has since been removed by the nurse Reason for Continuing Indwelling Catheter: Other Urinary Catheter Date of Insertion: 05/05/21 Urinary Catheter Time of Insertion: 17:45 Date Urinary Catheter Removed: 05/08/21 Data : 05/09/21 05:08 05/09/21 05:08 A&P Assessment and plan (1) Acute kidney injury superimposed on chronic kidney disease: Status: Acute (2) CHF exacerbation: Status: Acute (3) Volume overload: Status: Acute (4) OAB (overactive bladder): Status: Acute (5) Unsteady gait: Status: Acute (6) Adrenal insufficiency: Status: Acute (7) History of atrial fibrillation: Status: Acute (8) Anemia: Status: Acute (9) UTI (urinary tract infection): Status: Acute (10) PVD (peripheral vascular disease): Status: Acute (11) Pulmonary hypertension: Status: Acute Plan Preserved action fraction heart failure exacerbation Patient seems to be around her baseline dry weight She would like to try Bumex 1 mg twice daily Potassium supplement Acute on chronic kidney disease: Resolved prerenal acute on chronic kidney disease, creatinine around baseline now, it worsened when she became hypotensive, losartan on hold CPAP overnight Continue steroids for adrenal insufficiency Tolterodine 4 urine incontinence For UTI we will give her cefdinir Urine culture pending Leukocytosis secondary to high dose steroids which were given Plan to send her to senior care on Monday Attestations Medical Necessity Statement*: [facility] Monday Time Spent in Patient Care: 15 minutes Coding Level of Care Code Acute Rn Home Care for g Fwd Diagnoses Acute kidney injury superimposed on chronic kidney disease N17.9; N18.9 CHF exacerbation I50.9 Volume overload E87.70 OAB (overactive bladder) N32.81 Unsteady gait R26.81 Adrenal insufficiency E27.40 History of atrial fibrillation Z86.79 Anemia D64.9 UTI (urinary tract infection) N39.0 PVD (peripheral vascular disease) I73.9 Pulmonary hypertension I27.20
[2021-05-09 11:16] LABS: Glucose Point of Care 163 mg/dL (70-110)
[2021-05-09] MEDS: tolterodine 2 mg Tablet PO ×2 (11:58→17:03)
[2021-05-09] MEDS: cefdinir 300 MG CAPSULE PO ×2 (11:59→17:03)
[2021-05-09] MEDS: nystatin powder 15 gm Btl 1 APPLIC TOPICAL (16:53)
[2021-05-09 16:59] LABS: Glucose Point of Care 229 mg/dL (70-110)
[2021-05-09] MEDS: polyethylene glycol 3350 Pkt 17 gm PO (17:50)
[2021-05-09 20:34] LABS: Glucose Point of Care 179 mg/dL (70-110)
[2021-05-09] MEDS: hydrocortisone 10 mg Tablet 20 MG PO (21:12)
[2021-05-10 04:00] VITALS: BP 151/79; PULSE 86; RESP 18; TEMP 37.4; O2SAT 96
[2021-05-10] MEDS: levothyroxine 175 mcg Tablet PO (05:26)
[2021-05-10 05:34] LABS: Basophils # 0.1 10^3/uL (0.0-0.1); Basophils % 0.6 %; Eosinophils # 0.8 10^3/uL (0.0-0.8); Eosinophils % 4.7 %; Hemoglobin 8.8 g/dL (11.5-15.3); Lymphocytes # 2.3 10^3/uL (0.8-4.8); Lymphocytes % 13.3 %; Mean Corpuscular HGB Conc 28.4 g/dL (30.0-36.0); Mean Corpuscular Hemoglobin 21.3 pg (28.0-34.0); Mean Corpuscular Volume 74.9 fl (81-99); Mean Platelet Volume 10.3 fL (7.4-10.4); Monocytes # 1.6 10^3/uL (0.2-0.9); Monocytes % 9.4 %; Nucleated Red Blood Cells % 0 %; Platelet Count 303 10^3/cmm (130-400); Red Blood Count 4.14 10^6/uL (4.1-5.3); Red Cell Distribution Width 16.7 % (12.1-15.1); White Blood Count 17.2 10^3/uL (4.0-10.0)
[2021-05-10 05:48] LABS: Blood Urea Nitrogen 26 mg/dL (8-23); Calcium 8.2 mg/dL (8.5-10.5); Carbon Dioxide 28 mmol/L (22-29); Chloride 95 mmol/L (98-107); Glomerular Filtration Rate 40.7 mL/min (90-130); Glucose 211 mg/dL (65-115); Osmolality Calculated 289 mOsm/kg (285-295); Sodium 134 mmol/L (136-145)
[2021-05-10 06:46] LABS: Glucose Point of Care 185 mg/dL (70-110)
[2021-05-10 07:41] VITALS: BP 136/77; PULSE 91; RESP 16; TEMP 37.1; O2SAT 95
[2021-05-10] MEDS: bumetanide 1 mg Tablet PO (08:53)
[2021-05-10] MEDS: tolterodine 2 mg Tablet PO (08:53)
[2021-05-10] MEDS: cefdinir 300 MG CAPSULE PO (08:54)
[2021-05-10] MEDS: potassium chloride ER 20 mEq Tablet 40 MEQ PO (08:54)
[2021-05-10] MEDS: amiodarone 200 mg Tablet PO (08:54)
[2021-05-10] MEDS: apixaban 5 mg Tablet 2.5 MG PO (08:54)
[2021-05-10] MEDS: hydrocortisone 10 mg Tablet 30 MG PO (08:54)
[2021-05-10] MEDS: nystatin powder 15 gm Btl 1 APPLIC TOPICAL (08:55)
[2021-05-10] MEDS: insulin lispro 100 unit/1 mL SUBCUT ×2 (08:55→11:42)
[2021-05-10] MEDS: pantoprazole DR 40 mg Tablet PO (08:57)
[2021-05-10 10:19] VITALS: PULSE 82; RESP 18; O2SAT 95
[2021-05-10 11:41] LABS: Glucose Point of Care 155 mg/dL (70-110)
--- NOTE | 2021-05-10 11:55 | PC.SOCIAL ---
IMM Update Updated pt on IMM. No questions voiced. Provided pt a copy. Initialed, dated, & timed copy in chart.
[2021-05-10 12:00] VITALS: BP 133/76; PULSE 95; RESP 15; O2SAT 93
--- NOTE | 2021-05-10 12:35 | PM.PN ---
Subjective Subjective: Patient had questions regarding neuropathic pain management, use of AV andrew blocking agent, reduction of Bumex dose, duration of UTI p.o. antibiotic Vitals/I&O/Wt Last Vital Signs Temp 98.8 F 05/10/21 07:41 Pulse 82 05/10/21 10:19 Resp 18 05/10/21 10:19 BP 136/77 05/10/21 07:41 Pulse Ox 95 05/10/21 10:19 05/09/21 05/10/21 05/10/21 22:59 06:59 14:59 Intake Total 240 / 480 Output Total 1400 / 3200 Balance -1160 / -2720 Weight last 48 hrs Weight 173.182 kg Physical Exam Narrative: Patient hypovolemic status seems to be improving Hyperemia of legs improved However leg edema still present which is 1+ pitting edema S1, S2 Saturating well on room air Morbid obesity Distended abdomen Nonfocal neuro exam No active audible stridor or wheezing Sitting in a recliner Urinary Catheter Management: Zurita: Cath Placed During This Visit: yes, but has since been removed by the nurse Reason for Continuing Indwelling Catheter: Other Urinary Catheter Date of Insertion: 05/05/21 Urinary Catheter Time of Insertion: 17:45 Date Urinary Catheter Removed: 05/08/21 Data : 05/10/21 05:25 05/10/21 05:25 Micro: Microbiology 05/08/21 21:12 Urine Culture - Preliminary Urine,Clean Catch Gram Negative Rods A&P Assessment and plan (1) Acute kidney injury superimposed on chronic kidney disease: Status: Acute (2) CHF exacerbation: Status: Acute (3) Volume overload: Status: Acute (4) OAB (overactive bladder): Status: Acute (5) Adrenal insufficiency: Status: Acute (6) Pulmonary hypertension: Status: Acute (7) Anasarca: Status: Acute (8) UTI (urinary tract infection): Status: Acute Plan UTI: Gram-negative tariq, continue cefdinir previous urine culture positive for Proteus sensitive to cephalosporin CHF exacerbation preserved action fraction, decrease Bumex dose to 1 mg daily Neuropathic diabetic pain I would not add Lyrica, currently she is on high-dose of gabapentin Adrenal insufficiency: Doing well on hydrocortisone 30 mg in the morning and 20 in the lunch I would reduce it to regular 50 mg at lunchtime at the time of discharge Hyperglycemia: Improving Holding losartan Patient has not been given CPAP, would definitely recommend at least at 10 cmH2O at night Attestations Medical Necessity Statement*: Discharge tomorrow to detention Time Spent in Patient Care: 15min Coding Level of Care Code 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
--- NOTE | 2021-05-10 12:58 | P.DS_ITS ---
Discharge Providers Date of Admission: 05/05/21 15:57 Date of Discharge: May 10, 2021 Attending Provider at Admission: Durga Hernandez MD Attending Provider at Discharge: Durga Hernandez MD Primary Care Provider: Piedad Sandhu MD Diagnoses at Discharge Discharge Diagnosis (1) Acute kidney injury superimposed on chronic kidney disease: Status: Acute (2) CHF exacerbation: Status: Acute (3) Volume overload: Status: Acute (4) OAB (overactive bladder): Status: Acute (5) Adrenal insufficiency: Status: Acute (6) Pulmonary hypertension: Status: Acute (7) Anasarca: Status: Acute (8) UTI (urinary tract infection): Status: Acute Reason for Visit Reason for Visit: FLUID EXCESS/ SOB Hospital Course Hospital Course 70-year-old female who was admitted for management of preserved ejection fraction heart failure exacerbation. She was diuresed aggressively in the beginning which improved her symptoms, total -7 L balance, prerenal acute on chronic kidney disease also improved with diuresis, creatinine 2.3 at admission, 1.3 discharge. Her exacerbation is related to sleep apnea. No active chest pain or signs of ischemia. With aggressive diuresis patient has felt significant improvement in her symptoms. She is being discharged to [facility] for rehab. 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 I am reluctant to add Lyrica because of high creatinine and underlying allergy. I have held her losartan toward her hospitalization. However patient does not want to hold this medication for now. Of note, initially her blood pressure did drop after Bumex and use of antihypertensive regimen, which improved to stress dose steroids, at home she takes 45 mg of stress dose steroids on daily basis, I kept her on 50 mg throughout her hospitalization. She has been diagnosed with UTI, urine culture showing gram-negative tariq, previous urine culture showed Proteus cephalosporin sensitive and planning to discharge on Cefpodoxime 5-day regimen. Her leukocytosis secondary to use of stress dose steroids throughout her hospitalization. She remained afebrile. I am giving her prescription for CPAP at setting 10 cmH2O, She saturates well on room air and requires oxygen at night Physical Exam Narrative: Patient hypervolemic status seems to be improving Hyperemia of legs improved However leg edema still present which is 1+ pitting edema S1, S2 Saturating well on room air Morbid obesity Distended abdomen Nonfocal neuro exam No active audible stridor or wheezing Sitting in a recliner Urinary Catheter Management: Zurita: Cath Placed During This Visit: yes, but has since been removed by the nurse Reason for Continuing Indwelling Catheter: Other Urinary Catheter Date of Insertion: 05/05/21 Urinary Catheter Time of Insertion: 17:45 Date Urinary Catheter Removed: 05/08/21 Discharge Data Studies Completed and Pending Completed Studies During Hospitalization Category Date Time Status XR chest 1V portable [id number] Urgent Exams 05/05/21 14:13 Completed XR knee LT 1-2V [id number] Urgent Exams 05/06/21 21:30 Completed XR shoulder LT min 2V* [id number] Urgent Exams 05/06/21 21:30 Completed Pending at discharge Category Date Time Status Basic Metabolic Panel AM LABS Lab 05/11/21 04:00 Ordered COVID [SARS Covid-2 Antigen] Routine Lab 05/10/21 12:51 Uncollected Complete Blood Count w/Auto AM LABS Lab 05/11/21 04:00 Ordered SARS Covid-2 Antigen Stat Lab 05/10/21 12:46 Uncollected Urine Culture Routine Lab 05/08/21 21:12 Results Radiology Impressions Chest X-Ray 05/05/21 14:13 IMPRESSION: Chest unchanged compared to prior study with no acute abnormality. Knee X-Ray 05/06/21 21:30 IMPRESSION: No significant findings. No change since 2016 Shoulder X-Ray 05/06/21 21:30 IMPRESSION: No acute findings Laboratory Results WBC 17.2 10^3/uL (4.0-10.0) H 05/10/21 05:25 RBC 4.14 10^6/uL (4.1-5.3) 05/10/21 05:25 Hgb 8.8 g/dL (11.5-15.3) L 05/10/21 05:25 Hct 31.0 % (37.0-47.0) L 05/10/21 05:25 MCV 74.9 fl (81-99) L 05/10/21 05:25 MCH 21.3 pg (28.0-34.0) L 05/10/21 05:25 MCHC 28.4 g/dL (30.0-36.0) L 05/10/21 05:25 RDW 16.7 % (12.1-15.1) H 05/10/21 05:25 Plt Count 303 10^3/cmm (130-400) 05/10/21 05:25 MPV 10.3 fL (7.4-10.4) 05/10/21 05:25 Neut % (Auto) 71.0 % 05/10/21 05:25 Lymph % (Auto) 13.3 % 05/10/21 05:25 Burnett % (Auto) 9.4 % 05/10/21 05:25 Eos % (Auto) 4.7 % 05/10/21 05:25 Baso % (Auto) 0.6 % 05/10/21 05:25 Neut # (Auto) 12.20 10^3/uL (1.8-7.7) H 05/10/21 05:25 Lymph # (Auto) 2.3 10^3/uL (0.8-4.8) 05/10/21 05:25 Burnett # (Auto) 1.6 10^3/uL (0.2-0.9) H 05/10/21 05:25 Eos # (Auto) 0.8 10^3/uL (0.0-0.8) 05/10/21 05:25 Baso # (Auto) 0.1 10^3/uL (0.0-0.1) 05/10/21 05:25 Nucleated RBC % (auto) 0 % 05/10/21 05:25 Nucleated RBCs # 0.0 /100WBC 05/10/21 05:25 Sodium 134 mmol/L (136-145) L 05/10/21 05:25 Potassium 4.0 mmol/L (3.5-5.1) 05/10/21 05:25 Chloride 95 mmol/L (98-107) L 05/10/21 05:25 Carbon Dioxide 28 mmol/L (22-29) 05/10/21 05:25 Anion Gap 15.0 (5-19) 05/10/21 05:25 BUN 26 mg/dL (8-23) H 05/10/21 05:25 Creatinine 1.3 mg/dL (0.5-0.9) H 05/10/21 05:25 GFR Calculation 40.7 mL/min (90-130) L 05/10/21 05:25 Glucose 211 mg/dL (65-115) H 05/10/21 05:25 POC Glucose 155 mg/dL (70-110) H 05/10/21 11:11 Calculated Osmolality 289 mOsm/kg (285-295) 05/10/21 05:25 Calcium 8.2 mg/dL (8.5-10.5) L 05/10/21 05:25 Magnesium 2.3 mg/dL (1.7-2.3) 05/06/21 04:11 Total Bilirubin 0.4 mg/dL (0.15-1.2) 05/06/21 04:11 AST 16 U/L (0-32) 05/06/21 04:11 ALT 19 U/L (0-33) 05/06/21 04:11 Alkaline Phosphatase 123 IU/L (35-105) H 05/06/21 04:11 Troponin T Gen 5 ng/L 31 ng/L (0-10) H 05/06/21 17:47 Troponin T Baseline 18 ng/L (0-10) H 05/05/21 14:46 Troponin T 120 Minute 12.48 ng/L (0-10) H 05/05/21 17:10 Delta Troponin T -5.52 ABS# (0-10) L 05/05/21 17:10 Troponin T Hi Sens 6Hr 12.52 ng/L (0-10) H 05/05/21 21:35 Troponin T Hi Sens 6Hr Delta -5.48 ng/L (0-12) L 05/05/21 21:35 C-Reactive Protein 32.0 mg/L (0.0-4.9) H 05/06/21 04:11 NT-Pro-B Natriuret Pep 167 pg/mL (0-125) H 05/05/21 14:46 Total Protein 6.6 g/dL (6.6-8.7) 05/06/21 04:11 Albumin 3.9 g/dL (3.5-5.2) 05/06/21 04:11 Globulin 2.7 g/dL (1.3-4.6) 05/06/21 04:11 Urine Color Yellow (Yellow) 05/08/21 21:12 Urine Appearance Hazy (CLEAR) A 05/08/21 21:12 Urine pH 6.5 (5-7) 05/08/21 21:12 Ur Specific [place] 1.015 (1.005-1.030) 05/08/21 21:12 Urine Protein Trace (Negative) 05/08/21 21:12 Urine Glucose (UA) Norm (Normal) 05/08/21 21:12 Urine Ketones Negative (Negative) 05/08/21 21:12 Urine Blood 3+ (Negative) H 05/08/21 21:12 Urine Nitrate Negative (Negative) 05/08/21 21:12 Urine Bilirubin Neg (Negative) 05/08/21 21:12 Prot Sulfosalicylic Acd Negative (Negative) 05/05/21 Unknown Urine Urobilinogen Norm mg/dL (Negative) 05/08/21 21:12 Ur Leukocyte Esterase 2+ (Negative) H 05/08/21 21:12 Urine RBC 0-4 /hpf (0-2) H 05/08/21 21:12 Urine WBC Too numerous to cnt /hpf (0-5) H 05/08/21 21:12 Ur Squamous Epith Cells 0-4 /hpf (0-5) H 05/08/21 21:12 Amorphous Sediment Not Reportable 05/08/21 21:12 Urine Bacteria Trace /hpf (NONE) 05/08/21 21:12 SARS-CoV-2 RNA (RT-PCR) Not detected (NOT DETECTED) 05/05/21 15:40 Vitals Last Vital Signs Temp 98.8 F 05/10/21 07:41 Pulse 82 05/10/21 10:19 Resp 18 05/10/21 10:19 BP 136/77 05/10/21 07:41 Pulse Ox 95 05/10/21 10:19 Discharge Plan Discharge Patient Disposition: Xfer SNF Condition: Stable Prescriptions: New cefdinir 300 mg Capsule 300 mg PO BID Qty: 10 0RF Continued epinephrine [EpiPen 2-Nabeel] 0.3 mg/0.3 mL auto-injector 0.3 mg IM Q10M PRN (Reason: anaphylaxis) Qty: 2 3RF Rx Instructions: for 3 doses (DME) miscellaneous medical supply Misc See Rx Instructions .Route Qty: 1 0RF Rx Instructions: As directed 1 oversized shower chair potassium chloride [Klor-Con M20] 20 mEq tablet,ER particles/crystals 40 meq PO BID Qty: 360 2RF gabapentin 600 mg tablet 600 mg PO BID 0RF Zyrtec 10 mg tablet 10 mg PO DAILY PRN (Reason: Allergic Symptoms) 90 Days Qty: 90 0RF (DME) Pharmacist Choice Strip See Rx Instructions .Route Qty: 50 2RF Rx Instructions: AC and HS (DME) blood-glucose meter,continuous Misc See Rx Instructions .Route Qty: 1 0RF Rx Instructions: As directed one meter with all necessary supplies (DME) lancets [Easy Touch Lancets] 30 gauge misc See Rx Instructions .Route Qty: 100 1RF Rx Instructions: AC and HS hydrocortisone 10 mg tablet See Rx Instructions .ROUTE .COMPLEX Qty: 450 3RF Rx Instructions: Take 30 mg in the morning/ 15 mg in the evening (tapering dose) alprazolam 0.25 mg tablet 0.25 mg PO TID PRN (Reason: anxiety) 30 Days Qty: 90 0RF tolterodine [Detrol LA] 4 mg capsule,extended release 24hr 4 mg PO Q24H 90 Days Qty: 90 1RF levothyroxine 175 mcg tablet 175 mcg PO QAM 0RF (DME) diabetic supplies, miscellan. Misc See Rx Instructions .Route Qty: 1 0RF Rx Instructions: As directed pramipexole 0.125 mg tablet 0.25 mg PO BEDTIME 0RF Rx Instructions: Take 2 tablets at bedtime. amiodarone 200 mg tablet 200 mg PO DAILY 0RF allopurinol 100 mg Tablet 100 mg PO DAILY PRN (Reason: gout) 0RF clonidine HCl 0.1 mg Tablet 0.1 mg PO Q12H PRN (Reason: Blood Pressure) 0RF Reglan 5 mg Tablet 5 mg PO .TIDWM & AT BEDTIME 0RF Miralax 17 gram/dose Powder 17 g PO DAILY PRN (Reason: Constipation) 0RF Saxenda 3 mg/0.5 mL (18 mg/3 mL) pen injector 3 mg SUBCUT Q7D 0RF Rx Instructions: ON FRIDAYS omeprazole 40 mg capsule,delayed release(DR/EC) 40 mg PO DAILY 0RF metoprolol tartrate 25 mg tablet 50 mg PO DAILY 0RF apixaban 2.5 mg tablet 2.5 mg PO BID 0RF Changed bumetanide 1 mg tablet 1 mg PO DAILY 90 Days Qty: 180 0RF Held losartan 50 mg tablet 50 mg PO DAILY 90 Days Qty: 90 0RF Hold Instructions: Resume on 05/13/21. Discontinued furosemide [Lasix] 80 mg Tablet 80 mg PO BID 0RF metolazone 5 mg tablet 2.5 mg PO DAILY PRN (Reason: Edema) 0RF Discharge Orders: Discharge Order (Routine); Ordered 05/10/21 Ordered By: Durga Hernandez Other Ambulatory Orders: DME: CPAP (Order) Location: None Selected Ordered By: Durga Hernandez Referrals: Piedad Sandhu MD [Primary Care Provider] - 2 weeks Discharge Diet: Cardiac Discharge Activity: Increase activity as tolerated Patient Instructions: Cefdinir (By mouth), CHF Stoplight Discharge Attestations Time Spent in Discharge Care*: less than 30 min Quality Metrics Clinical Quality Measures [ No reported AMI, CVA or VTE this stay] Coding Level of Care Code Acute Chg FW DC note Diagnoses Acute kidney injury superimposed on chronic kidney disease N17.9; N18.9 CHF exacerbation I50.9 Volume overload E87.70 OAB (overactive bladder) N32.81 Adrenal insufficiency E27.40 Pulmonary hypertension I27.20 Anasarca R60.1 UTI (urinary tract infection) N39.0
[2021-05-10 14:56] LABS: SARS Covid-2 Antigen Negative (Negative)
[2021-05-10 15:44] VITALS: BP 133/76; PULSE 95; RESP 15; O2SAT 93
--- NOTE | 2021-05-10 15:44 | PC.NURSE ---
REPORT CALLED TO DOC AT [facility]. ALL QUESTIONS ANSWERED. PT SAFELY LEFT HOSPITAL WITH [facility] STAFF.
== END 2021-05-10 15:00 | disposition skilled nursing facility (03) | DRG 291 ==
LOC: ER 17:46 → MEDSURG 18:44
PROVIDERS: Admitting Provider Internal Medicine; Emergency Provider Emergency Medicine; PCP Family Medicine; Visit Provider Internal Medicine
DX: I13.0 Hypertensive heart and chronic kidney disease with heart failure and stage 1 through stage 4 chronic kidney disease, or unspecified chronic kidney disease (principal); I50.33 Acute on chronic diastolic (congestive) heart failure; N17.9 Acute kidney failure, unspecified; N39.0 Urinary tract infection, site not specified; Z68.44 Body mass index [BMI] 60.0-69.9, adult; E27.40 Unspecified adrenocortical insufficiency; E87.70 Fluid overload, unspecified; N18.9 Chronic kidney disease, unspecified; G47.30 Sleep apnea, unspecified; B96.4 Proteus (mirabilis) (morganii) as the cause of diseases classified elsewhere; I27.20 Pulmonary hypertension, unspecified; E66.01 Morbid (severe) obesity due to excess calories; Z87.891 Personal history of nicotine dependence; E03.8 Other specified hypothyroidism; D63.1 Anemia in chronic kidney disease; I73.9 Peripheral vascular disease, unspecified; R26.81 Unsteadiness on feet
CPT/HCPCS: 36415; 36416; 51702; 71045; 73030; 73560; 80048; 80053; 81001; 82962; 83735; 83880; 84484; 85025; 86140; 87077; 87086; 87186; 87426; 87635; 93005; 96372; 96374; 97110; 97116; 97161; 97530; 99285; J1720; J1815; J1940; J2405; J3490; J7050; J8499

== ENCOUNTER → 2021-05-13 13:39 | Outpatient (BNVA) | payer MEDICARE, OTHER, SELFPAY | PROVIDERS: PCP Family Medicine; Visit Provider Nurse Practitioner Family | DX: E11.29 Type 2 diabetes mellitus with other diabetic kidney complication (principal); E87.6 Hypokalemia; R60.9 Edema, unspecified; E26.9 Hyperaldosteronism, unspecified; G62.9 Polyneuropathy, unspecified; R53.1 Weakness; R06.02 Shortness of breath | CPT/HCPCS: 80053 ==

== ENCOUNTER → 2021-05-17 11:00 | Outpatient (BNVA) | payer MEDICARE, OTHER, SELFPAY | PROVIDERS: PCP Family Medicine; Visit Provider Nurse Practitioner Family | DX: D64.9 Anemia, unspecified (principal); E11.29 Type 2 diabetes mellitus with other diabetic kidney complication; F41.9 Anxiety disorder, unspecified; N39.0 Urinary tract infection, site not specified; E26.9 Hyperaldosteronism, unspecified; E87.6 Hypokalemia; R60.9 Edema, unspecified; N18.31 Chronic kidney disease, stage 3a; L03.90 Cellulitis, unspecified; E11.42 Type 2 diabetes mellitus with diabetic polyneuropathy | CPT/HCPCS: 80053 ==

== ENCOUNTER → 2021-05-24 08:39 | Outpatient (BNVA) | payer MEDICARE, OTHER, SELFPAY | PROVIDERS: PCP Family Medicine; Visit Provider Nurse Practitioner Family | DX: D64.9 Anemia, unspecified (principal); E11.29 Type 2 diabetes mellitus with other diabetic kidney complication; E26.9 Hyperaldosteronism, unspecified; E87.6 Hypokalemia; F41.9 Anxiety disorder, unspecified; N18.31 Chronic kidney disease, stage 3a; R60.1 Generalized edema; E87.5 Hyperkalemia; L03.90 Cellulitis, unspecified; G62.9 Polyneuropathy, unspecified; I50.9 Heart failure, unspecified | CPT/HCPCS: 80053; 82607; 82746; 83550 ==

== ENCOUNTER → 2021-05-26 09:05 | Outpatient (BNVA) | payer MEDICARE, OTHER, SELFPAY | PROVIDERS: PCP Family Medicine; Visit Provider Internal Medicine | DX: E89.3 Postprocedural hypopituitarism (principal); E26.9 Hyperaldosteronism, unspecified; E03.8 Other specified hypothyroidism; E66.01 Morbid (severe) obesity due to excess calories; Z87.892 Personal history of anaphylaxis; I11.0 Hypertensive heart disease with heart failure; E11.29 Type 2 diabetes mellitus with other diabetic kidney complication; I50.9 Heart failure, unspecified | CPT/HCPCS: 99214 ==

== ENCOUNTER → 2021-06-02 11:26 | Outpatient (BNVA) | payer MEDICARE, OTHER, SELFPAY | PROVIDERS: PCP Family Medicine; Visit Provider Nurse Practitioner Family | DX: H60.91 Unspecified otitis externa, right ear (principal); I50.9 Heart failure, unspecified; E11.29 Type 2 diabetes mellitus with other diabetic kidney complication; E03.8 Other specified hypothyroidism; E87.6 Hypokalemia; R60.9 Edema, unspecified; D64.9 Anemia, unspecified; R06.02 Shortness of breath | CPT/HCPCS: 80053; 80061; 83036; 84439 ==

== ENCOUNTER 2021-06-21 11:00 | Outpatient (CLI) | payer MEDICARE, OTHER, SELFPAY | END 2021-06-21 11:01 | disposition home or self-care (01) | LOC: SLEEP 06-22 11:50 | PROVIDERS: PCP Nurse Practitioner Family; Visit Provider Internal Medicine Critical Care Medicine | DX: R06.02 Shortness of breath (principal) | CPT/HCPCS: 94762 ==

== ENCOUNTER → 2021-07-08 08:57 | Outpatient (BNVA) | payer MEDICARE, OTHER, SELFPAY | PROVIDERS: PCP Nurse Practitioner Family; Visit Provider Nurse Practitioner Family | DX: J40 Bronchitis, not specified as acute or chronic (principal); J06.9 Acute upper respiratory infection, unspecified; I50.9 Heart failure, unspecified; R11.0 Nausea; R11.10 Vomiting, unspecified; E26.9 Hyperaldosteronism, unspecified; E87.6 Hypokalemia; E89.3 Postprocedural hypopituitarism; N18.31 Chronic kidney disease, stage 3a; E03.8 Other specified hypothyroidism; I13.0 Hypertensive heart and chronic kidney disease with heart failure and stage 1 through stage 4 chronic kidney disease, or unspecified chronic kidney disease | CPT/HCPCS: 80053; 82310; 82530; 83735; 83880; 83970 ==

== ENCOUNTER → 2021-07-23 11:48 | Outpatient (BNVA) | payer MEDICARE, OTHER, SELFPAY | PROVIDERS: PCP Nurse Practitioner Family; Visit Provider Nurse Practitioner Family | DX: R60.9 Edema, unspecified (principal); R06.02 Shortness of breath; I50.9 Heart failure, unspecified; R60.1 Generalized edema; I11.0 Hypertensive heart disease with heart failure; G62.9 Polyneuropathy, unspecified; E87.6 Hypokalemia; Z86.79 Personal history of other diseases of the circulatory system; L03.90 Cellulitis, unspecified | CPT/HCPCS: 80053; 83880 ==

== ENCOUNTER → 2021-07-26 13:12 | Outpatient (BNVA) | payer MEDICARE, OTHER, SELFPAY | PROVIDERS: PCP Nurse Practitioner Family; Visit Provider Nurse Practitioner Family | DX: R60.9 Edema, unspecified (principal); E87.5 Hyperkalemia | CPT/HCPCS: 80053; 84550 ==

== ENCOUNTER 2021-08-02 07:49 | Inpatient (IN) | payer MEDICARE, OTHER, SELFPAY ==
[2021-08-02] VITALS (40 sets, daily range): BP systolic 77–158; BP diastolic 55–116; PULSE 101–175; RESP 13–30; TEMP 36.3–36.6; O2SAT 88–97; BMI 54.9; BMI 56.5
--- NOTE | 2021-08-02 08:02 | XR_ITS ---
WS: [id number] PORTABLE CHEST HISTORY: dyspnea COMPARISON: 05/05/2021 No areas of consolidation. Normal vasculature. No pleural effusion or pneumothorax. Cardiac size: Mildly enlarged cardiac silhouette. Mediastinum/Aorta: Mild ectasia aorta. Prior resection distal RIGHT clavicle. Mild AC joint arthritis on the LEFT. Dorsal column stimulator electrodes over the mid thoracic spine. XR/XR chest 1V portable [id number] IMPRESSION: Stable chest. No acute interval change since 05/05/2021.
--- NOTE | 2021-08-02 08:02 | ECG_ITS ---
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 Measurements Intervals [place] Rate: 142 P: PA: QRS: 95 QRSD: 90 T: 0 QT: 152 QTc: 234 Interpretive Statements ATRIAL FLUTTER/TACHYCARDIA WITH RAPID VENTRICULAR RESPONSE BORDERLINE RIGHT AXIS DEVIATION [QRS AXIS > 90] PATTERN CONSISTENT WITH PULMONARY DISEASE NONSPECIFIC ST & T-WAVE ABNORMALITY Compared to ECG 05/06/2021 14:34:46 T-wave abnormality now present Sinus rhythm no longer present ST (T wave) deviation no longer present Prolonged QT interval no longer present Electronically Signed On 08-02-2021 21:35:59 CDT by Chris Sellers M.D. [id number]
[2021-08-02] MEDS: esmolol drip 2,500 MG/250 ML PREMIX 44.91 MG IV (08:46)
[2021-08-02] MEDS: FUROsemide 10 mg/mL SDV 10mL 80 MG IVP (09:00)
[2021-08-02 09:12] LABS: Basophils # 0.1 10^3/uL (0.0-0.1); Basophils % 0.5 %; Eosinophils # 0.1 10^3/uL (0.0-0.8); Eosinophils % 0.4 %; Hematocrit 41.5 % (37.0-47.0); Hemoglobin 12.3 g/dL (11.5-15.3); Lymphocytes # 1.8 10^3/uL (0.8-4.8); Lymphocytes % 10.5 %; Mean Corpuscular HGB Conc 29.6 g/dL (30.0-36.0); Mean Corpuscular Hemoglobin 22.8 pg (28.0-34.0); Mean Corpuscular Volume 76.9 fl (81-99); Mean Platelet Volume 10.2 fL (7.4-10.4); Monocytes # 1.3 10^3/uL (0.2-0.9); Monocytes % 7.8 %; Neutrophils # 13.61 10^3/uL (1.8-7.7); Neutrophils % 79.9 %; Nucleated Red Blood Cells % 0 %; Platelet Count 280 10^3/cmm (130-400)
[2021-08-02 09:30] LABS: Add Urine Microscopic? YES; Bilirubin Urine Neg (Negative); Blood Urine 3+ (Negative); Glucose Urine UA 4+ (Normal); Ketones Urine Negative (Negative); Leukocyte Esterase Urine Negative (Negative); Nitrate Urine Negative (Negative); Protein Urine Neg (Negative); Urine Appearance Clear (CLEAR); Urine Color Straw (Yellow); Urobilinogen Urine Norm (Negative); pH Urine 6.5 (5-7)
[2021-08-02 09:31] LABS: Add Urine Culture? No; Bacteria Urine 1+ /hpf; Squamous Epithelial Cell Urine RARE /hpf (0-5); Troponin(5th) Baseline 15 ng/L (0-10)
[2021-08-02 09:39] LABS: Alanine Aminotransferase 17 U/L (0-33); Albumin Level 3.5 g/dL (3.5-5.2); Alkaline Phosphatase 117 IU/L (35-105); Anion Gap 15.7 (5-19); Aspartate Amino Transferase 10 U/L (0-32); Blood Urea Nitrogen 24 mg/dL (8-23); Calcium 9.5 mg/dL (8.5-10.5); Carbon Dioxide 26 mmol/L (22-29); Chloride 96 mmol/L (98-107); Creatine Phosphokinase 33 U/L (26-192); Globulin 2.9 g/dL (1.3-4.6); Glomerular Filtration Rate 49.2 mL/min (90-130); Glucose 191 mg/dL (65-115); Magnesium 2.4 mg/dL (1.7-2.3); NT Pro B Type Natriuretic Pept 3608 pg/mL (0-125); Osmolality Calculated 287 mOsm/kg (285-295); Potassium 3.7 mmol/L (3.5-5.1); Sodium 134 mmol/L (136-145); Total Bilirubin 0.2 mg/dL (0.15-1.2); Total Protein 6.4 g/dL (6.6-8.7)
[2021-08-02] MEDS: amiodarone 200 mg Tablet PO (09:52)
--- NOTE | 2021-08-02 10:02 | ECG_ITS ---
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 Measurements Intervals [place] Rate: 142 P: MA: QRS: -34 QRSD: 87 T: 0 QT: 132 QTc: 203 Interpretive Statements ATRIAL FLUTTER/TACHYCARDIA WITH RAPID VENTRICULAR RESPONSE LEFT AXIS DEVIATION [QRS AXIS < -30] PATTERN CONSISTENT WITH PULMONARY DISEASE NONSPECIFIC ST & T-WAVE ABNORMALITY Compared to ECG 08/02/2021 08:19:31 Left-axis deviation now present T-wave abnormality still present Electronically Signed On 08-02-2021 21:40:21 CDT by Chris Sellers M.D. [email or web address]
--- NOTE | 2021-08-02 10:36 | P.HP_ITS ---
Providers/Chief Complaint Admitting Physician: Oli Alarcon Primary Care Provider: Crys Glover NP Chief Complaint: rapid HR History of Present Illness Carolyn Alexander is a 71 year old female who presents to the emergency department with complaints of palpitations, left chest and neck pain occurring around 6 PM yesterday. She knew she went into atrial fibrillation secondary to her heart monitoring device on her phone. Unfortunately this persisted, not improving so she came in. She has a long history of diastolic heart failure, and paroxysmal atrial fibrillation. She states she has been gaining some weight lately, in the form of edema. She recently had Bumex increased. She states she has been off metoprolol secondary to lower blood pressures. Her primary care provider also stopped her Eliquis secondary to concern of nosebleeds, but patient reports at lower dose of Eliquis she did not have nosebleeds. She denies any recent illness such as fever, cough. No nausea or vomiting. No chest discomfort currently. In the emergency department she got some p.o. amiodarone 200 mg. An esmolol drip was started. Blood pressure dropped somewhat with the esmolol drip. She did also get Lasix 80 mg IV x1. She is already urinated at least once. Review of Systems General: Reports: 10 or more systems reviewed and unremarkable except in HPI and below Const: Reports: fatigue; Denies: fever(s) or chills Eyes: Denies: change in vision ENMT: Reports: epistaxis; Denies: throat pain Card: Reports: chest pain, palpitations and swelling of feet/ankles Resp: Reports: dyspnea GI: Denies: abdominal pain, nausea, heartburn, hematochezia or melena : Denies: flank pain Musc: Denies: neck pain Skin/Breast: Denies: rash Neuro: Denies: headache(s) Psych: Denies: anxiety or depression Endo: Denies: polyuria Charli/Lymph: Denies: easy bruising All/Imm: Denies: urticaria Medications/Allergies Home Medications Medication Instructions Recorded Confirmed Last Taken Type epinephrine 0.3 mg/0.3 mL 0.3 mg (0.3 mL) IM Q10M PRN #2 ea 04/20/20 07/23/21 Unknown Rx injection, auto-injector (EpiPen 2-Nabeel) levothyroxine 175 mcg tablet 175 mcg PO QAM 01/19/21 07/23/21 05/05/21 History diabetic supplies, miscellan. #1 ea 01/21/21 07/23/21 Unknown Rx blood sugar diagnostic (Pharmacist #50 ea 03/04/21 07/23/21 Unknown Rx Choice) blood-glucose meter,continuous #1 ea 03/04/21 07/23/21 Unknown Rx lancets 30 gauge (Easy Touch #100 ea 03/04/21 07/23/21 Unknown Rx Lancets) alprazolam 0.25 mg tablet 0.25 mg PO TID PRN 30 Days #90 tab 04/16/21 07/23/21 Unknown Rx cetirizine 10 mg tablet (Zyrtec) 10 mg PO DAILY PRN 90 Days #90 tab 04/20/21 07/23/21 Unknown Rx clonidine HCl 0.1 mg tablet 0.1 mg PO Q12H PRN 05/05/21 07/23/21 Unknown History polyethylene glycol 3350 17 17 g PO DAILY PRN 05/05/21 07/23/21 Unknown History gram/dose oral powder (Miralax) bumetanide 1 mg tablet 1 mg PO DAILY 90 Days #180 tab 05/10/21 07/23/21 05/05/21 Rx ciprofloxacin 0.3 %-dexamethasone 4 drp OTIC (EAR) BID 7 Days #7.5 ml 06/02/21 07/23/21 Unknown Rx 0.1 % ear drops,suspension (Ciprodex) blood-glucose meter,continuous #1 ea 06/10/21 07/23/21 Unknown Rx (Dexcom G6 Software Developer Mid Level) blood-glucose sensor (Dexcom G6 #3 ea 06/10/21 07/23/21 Unknown Rx Sensor) blood-glucose transmitter (Dexcom #1 ea 06/10/21 07/23/21 Unknown Rx G6 Transmitter) pramipexole 0.5 mg tablet (Mirapex) 0.5 mg PO DAILY #90 tab 06/11/21 07/23/21 Unknown Rx triamterene 37.5 1 tab PO DAILY 90 Days #90 tab 06/16/21 07/23/21 Unknown Rx mg-hydrochlorothiazide 25 mg tablet olopatadine 0.7 % eye drops 1 drp OPHTHALMIC (EYE) QAM #5 ml 07/08/21 07/23/21 Unknown Rx (Pataday Once Daily Relief) pantoprazole 40 mg tablet,delayed 40 mg PO DAILY 90 Days #90 tab 07/09/21 07/23/21 Unknown Rx release (Protonix) empagliflozin 10 mg tablet 10 mg PO DAILY #30 tab 07/12/21 07/23/21 Unknown Rx (Jardiance) lidocaine 5 % topical patch 1 patch TOPICAL DAILY 30 Days #30 07/13/21 07/23/21 Unknown Rx ea semaglutide (Ozempic) 0.5 mg (0.4 mL) SUBCUT .WEEKLY #9 07/19/21 07/23/21 Unknown Rx ml pregabalin 75 mg capsule (Lyrica) 75 mg PO BID 30 Days #60 cap 07/23/21 07/23/21 Unknown Rx ciprofloxacin HCl 500 mg tablet 500 mg PO BID 10 Days #20 tab 07/26/21 07/26/21 Unknown Rx (Cipro) potassium chloride 20 mEq 40 meq PO BID 90 Days #360 tab 07/26/21 07/26/21 Unknown Rx tablet,extended release allopurinol 100 mg tablet 100 mg PO DAILY 90 Days #90 tab 07/28/21 07/28/21 Unknown Rx ondansetron 4 mg disintegrating 4 mg PO Q6H PRN #90 tab 07/28/21 07/28/21 Unknown Rx tablet Allergies Allergy/AdvReac Type Severity Reaction Status Date / Time acetaminophen [From Tylenol] Allergy ALGY-Hives Verified 07/08/21 08:53 azithromycin Allergy ALGY-Anaphy Verified 07/08/21 08:53 laxis benzocaine Allergy ALGY-Hives Verified 07/08/21 08:53 butamben [From Cetacaine] Allergy ALGY-Swell Verified 07/08/21 08:53 Lip/Tongue/Throat codeine Allergy ALGY-Hives Verified 07/08/21 08:53 fentanyl Allergy ALGY-Anaphy Verified 07/08/21 08:53 laxis hydrocodone [From Vicodin] Allergy ALGY-Hives Verified 07/08/21 08:53 hydromorphone [From Dilaudid] Allergy ADR-Vomitin Verified 07/08/21 08:53 g Iodinated Contrast Media Allergy ALGY-Anaphy Verified 07/08/21 08:53 laxis liothyronine Allergy ADR-Nausea Verified 07/08/21 08:53 meperidine [From Demerol] Allergy Unknown Verified 07/08/21 08:53 morphine Allergy ALGY-Anaphy Verified 07/08/21 08:53 laxis nitrofurantoin Allergy ALGY-Joint Verified 07/08/21 08:53 [From Macrobid] Pain oxycodone [From Percocet] Allergy ALGY-Hives Verified 07/08/21 08:53 penicillin V Allergy ALGY-Hives Verified 07/08/21 08:53 Penicillins Allergy Unknown Verified 07/08/21 08:53 Phenothiazines Allergy ALGY-Anaphy Verified 07/08/21 08:53 laxis pregabalin [From Lyrica] Allergy ADV-Weaknes Verified 07/08/21 08:53 s procaine Allergy ALGY-Hives Verified 07/08/21 08:53 prochlorperazine Allergy ALGY-Anaphy Verified 07/08/21 08:53 [From Compazine] laxis Sulfa (Sulfonamide Allergy Unknown Verified 07/08/21 08:53 Antibiotics) tetracaine [From Cetacaine] Allergy ALGY-Swell Verified 07/08/21 08:53 Lip/Tongue/Throat PFSH Acute PFSH: Medical History Acute kidney injury superimposed on chronic kidney disease Adrenal insufficiency Anasarca Anasarca Anasarca Anemia Benign essential hypertension with target blood pressure below 140/90 Central hypothyroidism CHF (congestive heart failure) CHF exacerbation Chronic back pain Follows at pain clinic for periodic injections COVID-19 (~09/2020) Edema Facet arthritis, degenerative, lumbar spine Fatigue Gastroenteritis History of anaphylaxis History of atrial fibrillation Intermittent, has not required long-term anticoagulation or focused treatment History of COVID-19 HTN (hypertension) Hyperaldosteronism 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 Increased nausea and vomiting Lumbar spondylolysis OAB (overactive bladder) Obesity Obesity, morbid, BMI 50 or higher Obstructive sleep apnea KP (obstructive sleep apnea) Paroxysmal atrial fibrillation Pituitary macroadenoma with extrasellar extension Prediabetes Pulmonary hypertension PVD (peripheral vascular disease) Steroid dependence Tachycardia Unsteady gait UTI (urinary tract infection) Venous (peripheral) insufficiency Volume overload Surgical History H/O shoulder surgery History of hysterectomy History of pituitary surgery S/P insertion of spinal cord stimulator Family History Father Cancer pancreatic cancer Sister No problems noted. 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 Oropharynx clear. Head is atraumatic and normocephalic Neck is supple no lymphadenopathy or thyromegaly Cardiovascular irregular, irregular and tachycardic. No murmur auscultated. Abdomen is soft nontender with positive bowel sounds. No obvious organomegaly exams deferred Extremities 2+ edema bilaterally. No cyanosis or clubbing Skin no rash Neuro no obvious focal deficits. Data : 08/02/21 09:00 08/02/21 09:00 Other Labs: Magnesium 2.4, calcium 9.5, LFTs normal with exception of alk phos of 117. Troponin baseline is 15 BNP 3608 Urinalysis 5-10 red blood cells per high-power field TSH 2.February Chest x-ray stable, no infiltrate I tried to view her EKG but unfortunately it is not crossing over in the EMR currently. I have been informed that shows A. fib with RVR, no acute changes Echocardiogram in January, under Portrait Painter procedure, shows EF of 72%, grade 1 diastolic dysfunction, no significant valvular abnormalities A&P Assessment and plan (1) Atrial fibrillation: Patient with history of paroxysmal atrial fibrillation. She was taken off beta-isaiah secondary to hypotension. She has continued to take, and be compliant with the amiodarone. Esmolol given in the emergency department dropped her pressure. I am converting to an amiodarone drip. Could conceivably give digoxin if rate is still high Cardiology consultation I do not see an inherent need to repeat echocardiogram currently. Initiate Eliquis twice daily Status: Acute (2) CHF (congestive heart failure): Consistent with acute diastolic heart failure. She has been gaining edema weight recently. Could try to diurese, after blood pressure is improved, rate is improved She did get 80 mg x 1 of Lasix in the emergency department Status: Acute Qualifiers: Heart failure type: unspecified Heart failure chronicity: acute Qualified Code(s): I50.9 - Heart failure, unspecified (3) Type 2 diabetes mellitus with other diabetic kidney complication: Sliding scale insulin Status: Acute (4) Central hypothyroidism: Continue home medications Status: Acute Plan Multiple other medical problems as outlined in past medical history Eliquis will be initiated answer for DVT prophylaxis as well Full code Attestations Medical Necessity Statement*: Will need greater than 2 midnight stay for evaluation and treatment of atrial fibrillation with rapid ventricular rate, acute diastolic heart failure Coding Level of Care Code Acute Shock Absorption Floor Layer for Chg Fwd Diagnoses Atrial fibrillation I48.91 CHF (congestive heart failure) I50.9 Heart failure type: unspecified Heart failure chronicity: acute Type 2 diabetes mellitus with other diabetic kidney complication E11.29 Central hypothyroidism E03.8
[2021-08-02 11:09] LABS: Troponin 5 2HR 15.12 ng/L (0-10)
[2021-08-02 11:12] LABS: Troponin 5 2HR Delta 0.12 ABS# (0-10)
--- NOTE | 2021-08-02 11:36 | PM.CONSULT ---
Providers/Reason For Consult Consulting Physician/Specialty*: Bahman Rowland MD/ Cardiology Reason for Consult*: Afib with RVR Requesting Physician: Dr Diop Attending Physician: Oli Dipo MD Primary Care Provider: Crys Glover NP History of Present Illness History of Present Illness Carolyn Alexander is a 71 year old female with past medical history of atrial fibrillation and congestive heart failure who presented with symptoms of palpitations that started yesterday. It was associated with neck pain and left chest pain on and off. She had multiple admissions in the past for atrial fibrillation and diastolic heart failure. Patient also has been gaining weight. Her Eliquis was stopped recently because of nosebleeds according to her and her metoprolol was also held because of hypotension. Patient is currently on amiodarone. Heart rates were found to be 120 bpm. She was put on esmolol drip however became hypotensive. She also received IV Lasix 80mg in the ER. Review of Systems General: Reports: 10 or more systems reviewed and unremarkable except in HPI and below Const: Reports: fatigue; Denies: fever(s) or chills Eyes: Denies: change in vision ENMT: Reports: epistaxis; Denies: throat pain Card: Reports: chest pain, palpitations and swelling of feet/ankles Resp: Reports: dyspnea GI: Denies: abdominal pain, nausea, heartburn, hematochezia or melena : Denies: flank pain Musc: Denies: neck pain Skin/Breast: Denies: rash Neuro: Denies: headache(s) Psych: Denies: anxiety or depression Endo: Denies: polyuria Charli/Lymph: Denies: easy bruising All/Imm: Denies: urticaria Medications/Allergies Home Medications Medication Instructions Recorded Confirmed Last Taken Type epinephrine 0.3 mg/0.3 mL 0.3 mg (0.3 mL) IM Q10M PRN #2 ea 04/20/20 08/02/21 Unknown Rx injection, auto-injector (EpiPen 2-Nabeel) levothyroxine 175 mcg tablet 175 mcg PO QAM 01/19/21 08/02/21 08/01/21 History diabetic supplies, miscellan. #1 ea 01/21/21 08/02/21 Unknown Rx blood sugar diagnostic (Pharmacist #50 ea 03/04/21 08/02/21 Unknown Rx Choice) blood-glucose meter,continuous #1 ea 03/04/21 08/02/21 Unknown Rx lancets 30 gauge (Easy Touch #100 ea 03/04/21 08/02/21 Unknown Rx Lancets) alprazolam 0.25 mg tablet 0.25 mg PO TID PRN 30 Days #90 tab 04/16/21 08/02/21 Unknown Rx polyethylene glycol 3350 17 17 g PO DAILY PRN 05/05/21 08/02/21 Unknown History gram/dose oral powder (Miralax) blood-glucose meter,continuous #1 ea 06/10/21 08/02/21 Unknown Rx (Dexcom G6 Adult School Counselor) blood-glucose sensor (Dexcom G6 #3 ea 06/10/21 08/02/21 Unknown Rx Sensor) blood-glucose transmitter (Dexcom #1 ea 06/10/21 08/02/21 Unknown Rx G6 Transmitter) lidocaine 5 % topical patch 1 patch TOPICAL DAILY 30 Days #30 07/13/21 08/02/21 Unknown Rx ea pregabalin 75 mg capsule (Lyrica) 75 mg PO BID 30 Days #60 cap 07/23/21 08/02/21 08/01/21 Rx ciprofloxacin HCl 500 mg tablet 500 mg PO BID 10 Days #20 tab 07/26/21 08/02/21 08/01/21 Rx (Cipro) finished 08/01/21 ondansetron 4 mg disintegrating 4 mg PO Q6H PRN #90 tab 07/28/21 08/02/21 Unknown Rx tablet albuterol sulfate 90 mcg/actuation 2 puff INHALATION QID PRN 08/02/21 08/02/21 Unknown History aerosol inhaler allopurinol 100 mg tablet 100 mg PO QAM 08/02/21 08/02/21 08/01/21 History amiodarone 200 mg tablet 200 mg PO QAM 08/02/21 08/02/21 Unknown History aspirin 81 mg tablet,delayed 81 mg PO DAILY 08/02/21 08/02/21 Unknown History release budesonide-formoterol HFA 160 2 puff INHALATION BID PRN 08/02/21 08/02/21 Unknown History mcg-4.5 mcg/actuation aerosol inhaler (Symbicort) bumetanide 1 mg tablet 1 - 2 mg PO DAILY 08/02/21 08/02/2108/01/22 History cetirizine 10 mg tablet (Zyrtec) 10 mg PO DAILY 08/02/21 08/02/21 Unknown History dexamethasone 1 mg tablet 1.5 mg PO QAM 08/02/21 08/02/21 08/01/21 History empagliflozin 10 mg tablet 10 mg PO QAM 08/02/21 08/02/21 08/01/21 History (Jardiance) olopatadine 0.7 % eye drops 1 drp OPHTHALMIC (EYE) QAM PRN 08/02/21 08/02/21 Unknown History (Pataday Once Daily Relief) pantoprazole 40 mg tablet,delayed 40 mg PO QAM 08/02/21 08/02/21 08/01/21 History release (Protonix) potassium chloride 10 mEq 20 meq PO BID 08/02/21 08/02/21 08/01/21 History tablet,extended release pramipexole 0.5 mg tablet (Mirapex) 1 mg PO BEDTIME 08/02/21 08/02/21 08/01/21 History sacubitril 24 mg-valsartan 26 mg 1 tab PO BID 08/02/21 08/02/21 08/01/21 History tablet (Entresto) see pharmacy comment semaglutide (Ozempic) 1 mg SUBCUT Q7D 08/02/21 08/02/21 07/25/21 History triamterene 37.5 1 tab PO QAM 08/02/21 08/02/21 08/01/21 History mg-hydrochlorothiazide 25 mg tablet Allergies Allergy/AdvReac Type Severity Reaction Status Date / Time acetaminophen [From Tylenol] Allergy ALGY-Hives Verified 07/08/21 08:53 azithromycin Allergy ALGY-Anaphy Verified 07/08/21 08:53 laxis benzocaine Allergy ALGY-Hives Verified 07/08/21 08:53 butamben [From Cetacaine] Allergy ALGY-Swell Verified 07/08/21 08:53 Lip/Tongue/Throat codeine Allergy ALGY-Hives Verified 07/08/21 08:53 fentanyl Allergy ALGY-Anaphy Verified 07/08/21 08:53 laxis hydrocodone [From Vicodin] Allergy ALGY-Hives Verified 07/08/21 08:53 hydromorphone [From Dilaudid] Allergy ADR-Vomitin Verified 07/08/21 08:53 g Iodinated Contrast Media Allergy ALGY-Anaphy Verified 07/08/21 08:53 laxis liothyronine Allergy ADR-Nausea Verified 07/08/21 08:53 meperidine [From Demerol] Allergy Unknown Verified 07/08/21 08:53 morphine Allergy ALGY-Anaphy Verified 07/08/21 08:53 laxis nitrofurantoin Allergy ALGY-Joint Verified 07/08/21 08:53 [From Macrobid] Pain oxycodone [From Percocet] Allergy ALGY-Hives Verified 07/08/21 08:53 penicillin V Allergy ALGY-Hives Verified 07/08/21 08:53 Penicillins Allergy Unknown Verified 07/08/21 08:53 Phenothiazines Allergy ALGY-Anaphy Verified 07/08/21 08:53 laxis pregabalin [From Lyrica] Allergy ADV-Weaknes Verified 07/08/21 08:53 s procaine Allergy ALGY-Hives Verified 07/08/21 08:53 prochlorperazine Allergy ALGY-Anaphy Verified 07/08/21 08:53 [From Compazine] laxis Sulfa (Sulfonamide Allergy Unknown Verified 07/08/21 08:53 Antibiotics) tetracaine [From Cetacaine] Allergy ALGY-Swell Verified 07/08/21 08:53 Lip/Tongue/Throat Current Medications Generic Name Dose Route Start Last Admin Trade Name Freq PRN Reason Stop Dose Admin Esmolol HCl 2,500 mg in 250 mls @ 0 mls/hr 08/02/21 08:15 08/02/21 10:44 Brevibloc Drip IV Infused .Q0M RAMIRO Titration Protocol Per Protocol PFSH Acute PFSH: Medical History Acute kidney injury superimposed on chronic kidney disease Adrenal insufficiency Anasarca Anasarca Anasarca Anemia Benign essential hypertension with target blood pressure below 140/90 Central hypothyroidism CHF (congestive heart failure) CHF exacerbation Chronic back pain Follows at pain clinic for periodic injections COVID-19 (~09/2020) Edema Facet arthritis, degenerative, lumbar spine Fatigue Gastroenteritis History of anaphylaxis History of atrial fibrillation Intermittent, has not required long-term anticoagulation or focused treatment History of COVID-19 HTN (hypertension) Hyperaldosteronism 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 Increased nausea and vomiting Lumbar spondylolysis OAB (overactive bladder) Obesity Obesity, morbid, BMI 50 or higher Obstructive sleep apnea KP (obstructive sleep apnea) Paroxysmal atrial fibrillation Pituitary macroadenoma with extrasellar extension Prediabetes Pulmonary hypertension PVD (peripheral vascular disease) Steroid dependence Tachycardia Unsteady gait UTI (urinary tract infection) Venous (peripheral) insufficiency Volume overload Surgical History H/O shoulder surgery History of hysterectomy History of pituitary surgery S/P insertion of spinal cord stimulator Family History Father Cancer pancreatic cancer Sister No problems noted. 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 [] NECK: No jugular vein distension. [] HEENT: No cyanosis. No icterus. No pallor. [] HEART: Regular S1 and S2. No murmur, rub or gallop. [] LUNGS: Clear to auscultate bilaterally. [] ABDOMEN: Soft, nontender and nondistended. Positive bowel sounds. No guarding, rebound or tenderness. [] CENTRAL NERVOUS SYSTEM: Grossly nonfocal. [] EXTREMITIES: Lower extremities with 1+ edema bilaterally. Pulses palpable in the lower extremities, both dorsalis pedis and posterior tibial. [] Data : 08/03/21 03:25 08/03/21 03:25 A&P Assessment and plan (1) Atrial fibrillation: Status: Acute (2) CHF (congestive heart failure): Status: Acute Qualifiers: Heart failure type: unspecified Heart failure chronicity: acute Qualified Code(s): I50.9 - Heart failure, unspecified (3) Chronic kidney disease, stage 3a: Status: Acute (4) Type 2 diabetes mellitus with other diabetic kidney complication: Status: Acute Plan Patient has presented with atrial fibrillation with RVR. Patient has been switched to amiodarone drip. Continue for now. Load with digoxin. IV diuretics. Monitor troponin. If heart rate does not improve in 1 to 2 days, can consider VISHAL cardioversion as patient was off of Eliquis. Resume anticoagulation with Eliquis Thank you for involving us with care of this patient. We will continue to follow. Please call with questions. Consult Attestations Medical Necessity Statement: Care expected to cross 2 midnights. Coding Level of Care Code Acute Cooker Sulfite for Duarte Molina Diagnoses Atrial fibrillation I48.91 CHF (congestive heart failure) I50.9 Heart failure type: unspecified Heart failure chronicity: acute Chronic kidney disease, stage 3a N18.31 Type 2 diabetes mellitus with other diabetic kidney complication E11.29
--- NOTE | 2021-08-02 11:40 | PC.NURSE ---
Arrived from ED, transfered self to bed, AO x4
--- NOTE | 2021-08-02 11:40 | W.ED.ARRPALP ---
HPI - Arrhythmia/Palpitations General: Chief Complaint: Arrhythmia/Palpitations Stated Complaint: rapid HR Time Seen by Provider: 08/02/21 07:51 Source: patient Mode of arrival: EMS Limitations: no limitations History of Present Illness: 71-year-old female presents emergency room via EMS with a history of atrial fibrillation on arrival she is having rate in 130s and 140s. Began last night. I tried several vagal maneuvers she also took 200 amiodarone last night. She is on anticoagulation. She denies any chest pain at this time. She has had increased swelling and worsening orthopnea. MD complaint: heart racing and atrial fibrillation Onset (ago): hour(s) Duration: constant Severity: moderate Context: occurred during rest Arrhythmia history: atrial fibrillation Associated symptoms: Reports short of breath; Deny anxiety, cough, diaphoresis, muscle cramps, nausea, paresthesias, pre-syncope, sense of impending doom, syncope or vomiting Treatments prior to arrival: vagal maneuvers and amiodarone Review of Systems Const: Denies: fever(s), chills, body aches, change in appetite or diaphoresis ENMT: Denies: throat pain, ear or mastoid pain, nasal discharge or nasal congestion Card: Reports: palpitations, irregular heart rhythm, edema, swelling of feet/ankles, dyspnea on exertion and orthopnea; Denies: chest pain, syncope or pre-syncope Resp: Denies: dyspnea, productive cough or non-productive cough GI: Denies: abdominal pain, nausea or vomiting : Denies: flank pain, difficulty voiding, dysuria, urinary frequency or urinary urgency Musc: Denies: neck pain or muscle cramps Skin/Breast: Denies: rash or pruritus Psych: Denies: anxiety PFSH ED PFSH: Medical History Acute kidney injury superimposed on chronic kidney disease Adrenal insufficiency Anasarca Anasarca Anasarca Anemia Benign essential hypertension with target blood pressure below 140/90 Central hypothyroidism CHF (congestive heart failure) CHF exacerbation Chronic back pain Follows at pain clinic for periodic injections COVID-19 (~09/2020) Edema Facet arthritis, degenerative, lumbar spine Fatigue Gastroenteritis History of anaphylaxis History of atrial fibrillation Intermittent, has not required long-term anticoagulation or focused treatment History of COVID-19 HTN (hypertension) Hyperaldosteronism 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 Increased nausea and vomiting Lumbar spondylolysis OAB (overactive bladder) Obesity Obesity, morbid, BMI 50 or higher Obstructive sleep apnea KP (obstructive sleep apnea) Paroxysmal atrial fibrillation Pituitary macroadenoma with extrasellar extension Prediabetes Pulmonary hypertension PVD (peripheral vascular disease) Steroid dependence Tachycardia Unsteady gait UTI (urinary tract infection) Venous (peripheral) insufficiency Volume overload Surgical History H/O shoulder surgery History of hysterectomy History of pituitary surgery S/P insertion of spinal cord stimulator Family History Father Cancer pancreatic cancer Sister No problems noted. 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 Female Reproductive History: Date of last menstrual period: 01/22/21 Physical Exam Const: COMMON NORMALS: no acute distress GENERAL APPEARANCE: cooperative and comfortable ORIENTATION/CONSCIOUSNESS: Yes awake, Yes oriented to person, Yes oriented to place and Yes oriented to time HENMT: COMMON NORMALS: normocephalic, atraumatic and hearing grossly normal bilaterally HEAD & SCALP: normocephalic and atraumatic Resp: COMMON NORMALS: normal respiratory effort, No retractions and No use of accessory muscles AUSCULTATION: crackles and diminished lung sounds Cardio: RATE: tachycardic RHYTHM: abnormal rhythm irregularly irregular GI: COMMON NORMALS: Soft to palpation and No hepatosplenomegaly present AUSCULTATION: Yes normoactive bowel sounds PALPATION: Yes Soft to palpation, No Tenderness to palpation present (GI), No Guarding due to palpation present (GI) and Yes No hepatosplenomegaly present OTHER: Anasarca at the level of the umbilicus : COMMON NORMALS: Yes no CVA tenderness BLADDER/KIDNEY EXAM: Yes no CVA tenderness Back/Pelvis: COMMON NORMALS: no CVA tenderness Extremity: COMMON NORMALS: normal to inspection, capillary refill normal and no calf tenderness GENERAL: Yes edema (3+) Neuro: SENSORIUM/ORIENTATION: Yes oriented to person, Yes oriented to place and Yes oriented to time Skin: COMMON NORMALS: no rashes or lesions noted GENERAL SKIN EXAM: no rashes or lesions noted Course Vital Signs: Vital signs: Vital Signs Temperature 98.5 F 08/03/21 04:00 Pulse Rate 91 08/03/21 06:00 Respiratory Rate 26 H 08/03/21 06:00 Blood Pressure 93/57 08/03/21 06:00 Pulse Oximetry 91 08/03/21 06:00 MDM - Arrhythmia/Palpitations Medical Decision Making Atrial fibrillation with decompensated heart failure. Initially tried esmolol is unable to really get good rate control and we switched to an amiodarone drip. Lasix given. Discussed with hospitalist orders written patient will be placed in the ICU. Medical Records I reviewed the patient's medical records. Lab Data I reviewed the patient's lab results. : 08/03/21 03:25 08/03/21 03:25 Radiology Impressions Chest X-Ray 08/02/21 08:02 IMPRESSION: Stable chest. No acute interval change since 05/05/2021. Laboratory Results WBC 17.0 10^3/uL (4.0-10.0) H 08/02/21 09:00 RBC 5.40 10^6/uL (4.1-5.3) H 08/02/21 09:00 Hgb 12.3 g/dL (11.5-15.3) 08/02/21 09:00 Hct 41.5 % (37.0-47.0) 08/02/21 09:00 MCV 76.9 fl (81-99) L 08/02/21 09:00 MCH 22.8 pg (28.0-34.0) L 08/02/21 09:00 MCHC 29.6 g/dL (30.0-36.0) L 08/02/21 09:00 RDW 20.0 % (12.1-15.1) H 08/02/21 09:00 Plt Count 280 10^3/cmm (130-400) 08/02/21 09:00 MPV 10.2 fL (7.4-10.4) 08/02/21 09:00 Neut % (Auto) 79.9 % 08/02/21 09:00 Lymph % (Auto) 10.5 % 08/02/21 09:00 [place] % (Auto) 7.8 % 08/02/21 09:00 Eos % (Auto) 0.4 % 08/02/21 09:00 Baso % (Auto) 0.5 % 08/02/21 09:00 Neut # (Auto) 13.61 10^3/uL (1.8-7.7) H 08/02/21 09:00 Lymph # (Auto) 1.8 10^3/uL (0.8-4.8) 08/02/21 09:00 [place] # (Auto) 1.3 10^3/uL (0.2-0.9) H 08/02/21 09:00 Eos # (Auto) 0.1 10^3/uL (0.0-0.8) 08/02/21 09:00 Baso # (Auto) 0.1 10^3/uL (0.0-0.1) 08/02/21 09:00 Nucleated RBC % (auto) 0 % 08/02/21 09:00 Nucleated RBCs # 0.0 /100WBC 08/02/21 09:00 Sodium 134 mmol/L (136-145) L 08/02/21 09:00 Potassium 3.7 mmol/L (3.5-5.1) 08/02/21 09:00 Chloride 96 mmol/L (98-107) L 08/02/21 09:00 Carbon Dioxide 26 mmol/L (22-29) 08/02/21 09:00 Anion Gap 15.7 (5-19) 08/02/21 09:00 BUN 24 mg/dL (8-23) H 08/02/21 09:00 Creatinine 1.1 mg/dL (0.5-0.9) H 08/02/21 09:00 GFR Calculation 49.2 mL/min (90-130) L 08/02/21 09:00 Glucose 191 mg/dL (65-115) H 08/02/21 09:00 Calculated Osmolality 287 mOsm/kg (285-295) 08/02/21 09:00 Calcium 9.5 mg/dL (8.5-10.5) 08/02/21 09:00 Magnesium 2.4 mg/dL (1.7-2.3) H 08/02/21 09:00 Total Bilirubin 0.2 mg/dL (0.15-1.2) 08/02/21 09:00 AST 10 U/L (0-32) 08/02/21 09:00 ALT 17 U/L (0-33) 08/02/21 09:00 Alkaline Phosphatase 117 IU/L (35-105) H 08/02/21 09:00 Creatine Kinase 33 U/L (26-192) 08/02/21 09:00 Troponin T Baseline 15 ng/L (0-10) H 08/02/21 09:00 Troponin T 120 Minute 15.12 ng/L (0-10) H 08/02/21 10:39 Delta Troponin T 0.12 ABS# (0-10) 08/02/21 10:39 NT-Pro-B Natriuret Pep 3608 pg/mL (0-125) H 08/02/21 09:00 Total Protein 6.4 g/dL (6.6-8.7) L 08/02/21 09:00 Albumin 3.5 g/dL (3.5-5.2) 08/02/21 09:00 Globulin 2.9 g/dL (1.3-4.6) 08/02/21 09:00 Urine Color Straw (Yellow) 08/02/21 09:00 Urine Appearance Clear (CLEAR) 08/02/21 09:00 Urine pH 6.5 (5-7) 08/02/21 09:00 Ur Specific [place] 1.010 (1.005-1.030) 08/02/21 09:00 Urine Protein Neg (Negative) 08/02/21 09:00 Urine Glucose (UA) 4+ (Normal) H 08/02/21 09:00 Urine Ketones Negative (Negative) 08/02/21 09:00 Urine Blood 3+ (Negative) H 08/02/21 09:00 Urine Nitrate Negative (Negative) 08/02/21 09:00 Urine Bilirubin Neg (Negative) 08/02/21 09:00 Urine Urobilinogen Norm mg/dL (Negative) 08/02/21 09:00 Ur Leukocyte Esterase Negative (Negative) 08/02/21 09:00 Urine RBC 5-10 /hpf (0-2) H 08/02/21 09:00 Urine WBC None /hpf (0-5) 08/02/21 09:00 Ur Squamous Epith Cells Rare /hpf (0-5) 08/02/21 09:00 Amorphous Sediment Not Reportable 08/02/21 09:00 Urine Bacteria 1+ /hpf (NONE) H 08/02/21 09:00 Critical Care Time Critical Care Time: Critical Care Time: Yes Total Critical Care Time: 40 Attestation: The high probability of a clinically significant, sudden or life threatening deterioration of the patient's cardiovascular system(s) required my full and direct attention, intervention and personal management. The critical care time is as shown. This time is in addition to time spent performing any reported procedures but includes the following: [x] Data and vital sign review and interpretation [x] Patient assessment, examination and intervention [x] Documentation [x] Medication orders and management Discharge Plan Discharge Patient Disposition: Admitted As Inpatient Admit Provider: Oli Diop Clinical Impression: Atrial fibrillation with RVR, CHF (congestive heart failure), Type 2 diabetes mellitus with other diabetic kidney complication, Chronic kidney disease, stage 3a, Anasarca Condition: Stable Coding Level of Care Code ED Soldering Machine Operator Automatic for Duarte Molina
[2021-08-02] MEDS: potassium chloride ER 20 mEq Tablet 40 MEQ PO (11:42)
--- NOTE | 2021-08-02 12:24 | PC.NURSE ---
Dr. Diop gave v.o. for 500 mcg digoxin IVP x1
[2021-08-02] MEDS: digoxin 250 mcg/ml INJ 2 mL 500 MCG IVP (13:06)
--- NOTE | 2021-08-02 14:02 | ECG_ITS ---
[facility] Test Date: 2021-08-02 Pat Name: Carolyn Alexander Department: Room: ICU06 Gender: Female Entry Level Recruiter: : 1950 Requested By: Shiraz Baez Order Number: [id number] Laina MD: Chris Sellers M.D. Measurements Intervals [place] Rate: 145 P: PA: QRS: -49 QRSD: 138 T: 267 QT: 355 QTc: 553 Interpretive Statements ATRIAL FLUTTER/TACHYCARDIA WITH RAPID VENTRICULAR RESPONSE INTRAVENTRICULAR CONDUCTION DELAY [130+ ms QRS DURATION] Compared to ECG 08/02/2021 11:04:23 Intraventricular conduction delay now present Left-axis deviation no longer present T-wave abnormality no longer present Electronically Signed On 08-02-2021 21:51:24 CDT by Chris Sellers M.D. [email or web address] issaquena community hospitalToshl Inc.[facility].[employer]/store/OM/[id number]
[2021-08-02 15:00] LABS: Troponin 5 6HR 16.96 ng/L (0-10)
[2021-08-02 15:03] LABS: Troponin 5 6HR Delta 1.96 ng/L (0-12)
[2021-08-02 16:55] LABS: Glucose Point of Care 171 mg/dL (70-110)
[2021-08-02] MEDS: insulin lispro 100 unit/1 mL SUBCUT ×2 (17:13→20:13)
[2021-08-02] MEDS: apixaban 5 mg Tablet 2.5 MG PO (17:13)
[2021-08-02] MEDS: sacubitril/valsartan 24-26 mg Tablet 1 EACH PO (17:13)
[2021-08-02] MEDS: pregabalin 75 mg Capsule PO (17:13)
--- NOTE | 2021-08-02 17:59 | PC.NURSE ---
Dr. Diop called, gave t.o. to give 250 mcg Digoxin IVP x1 if HR 120 or greater
[2021-08-02] MEDS: digoxin 250 mcg/ml INJ 2 mL IVP (18:32)
[2021-08-02] MEDS: dilTIAZem 5 mg/mL SDV 5 mL 10 MG IVP (20:12)
[2021-08-02] MEDS: ALPRAZolam 0.5 mg Tablet 0.25 MG PO (20:13)
[2021-08-02 20:35] LABS: Glucose Point of Care 180 mg/dL (70-110)
[2021-08-02] MEDS: pramipexole 0.25 mg Tablet 1 MG PO (20:55)
[2021-08-02] MEDS: budesonide 0.5 mg/2 mL Neb INHALATION (21:00)
[2021-08-02] MEDS: FUROsemide 10 mg/mL SDV 10mL 60 MG IVP (21:52)
[2021-08-03] VITALS (26 sets, daily range): BP systolic 58–162; BP diastolic 29–121; PULSE 79–149; RESP 16–94; TEMP 36.5–36.9; O2SAT 89–98
[2021-08-03 05:04] LABS: Alanine Aminotransferase 16 U/L (0-33); Albumin Level 3.3 g/dL (3.5-5.2); Alkaline Phosphatase 109 IU/L (35-105); Anion Gap 15.5 (5-19); Aspartate Amino Transferase 13 U/L (0-32); Blood Urea Nitrogen 26 mg/dL (8-23); Calcium 8.7 mg/dL (8.5-10.5); Carbon Dioxide 27 mmol/L (22-29); Chloride 99 mmol/L (98-107); Globulin 2.2 g/dL (1.3-4.6); Glomerular Filtration Rate 40.6 mL/min (90-130); Glucose 174 mg/dL (65-115); Osmolality Calculated 295 mOsm/kg (285-295); Potassium 3.5 mmol/L (3.5-5.1); Sodium 138 mmol/L (136-145); Total Bilirubin 0.3 mg/dL (0.15-1.2); Total Protein 5.5 g/dL (6.6-8.7)
[2021-08-03 05:11] LABS: Basophils # 0.1 10^3/uL (0.0-0.1); Basophils % 0.6 %; Eosinophils # 0.3 10^3/uL (0.0-0.8); Eosinophils % 1.7 %; Hematocrit 45.8 % (37.0-47.0); Hemoglobin 13.6 g/dL (11.5-15.3); Lymphocytes # 2.9 10^3/uL (0.8-4.8); Lymphocytes % 17.5 %; Mean Corpuscular HGB Conc 29.7 g/dL (30.0-36.0); Mean Corpuscular Volume 77.4 fl (81-99); Mean Platelet Volume 10.6 fL (7.4-10.4); Monocytes # 1.2 10^3/uL (0.2-0.9); Monocytes % 7.3 %; Neutrophils # 11.77 10^3/uL (1.8-7.7); Nucleated Red Blood Cells % 0 %; Platelet Count 203 10^3/cmm (130-400); Red Blood Count 5.92 10^6/uL (4.1-5.3); Red Cell Distribution Width 20.4 % (12.1-15.1); White Blood Count 16.4 10^3/uL (4.0-10.0)
[2021-08-03] MEDS: pantoprazole DR 40 mg Tablet PO (06:26)
[2021-08-03] MEDS: allopurinol 100 mg Tablet PO (06:26)
[2021-08-03] MEDS: levothyroxine 175 mcg Tablet PO (06:26)
[2021-08-03] MEDS: metoprolol tartrate 1 mg/1 mL SDV 5 mL 5 MG IVP (08:19)
[2021-08-03] MEDS: sacubitril/valsartan 24-26 mg Tablet 1 EACH PO (08:19)
[2021-08-03] MEDS: pregabalin 75 mg Capsule PO ×2 (08:19→17:45)
[2021-08-03] MEDS: aspirin 81 mg EC Tablet PO (08:19)
[2021-08-03 08:20] LABS: Glucose Point of Care 156 mg/dL (70-110)
[2021-08-03] MEDS: apixaban 5 mg Tablet 2.5 MG PO (08:20)
[2021-08-03] MEDS: insulin lispro 100 unit/1 mL SUBCUT ×4 (08:20→21:11)
--- NOTE | 2021-08-03 08:56 | PM.PN ---
Subjective Subjective: This 71-year-old white female is admitted to the hospital through the emergency room where she presented with the complaints of palpitation, chest pain, neck pain and some shortness of breath. She is known to have intermittent atrial fibrillation, recurrent diastolic heart failure, atypical chest pains, COPD, pulmonary hypertension, adrenal insufficiency, morbid obesity and multiple other medical problems. She is currently on IV amiodarone. She was started on IV esmolol but because of the hypotension it had to be discontinued. She was given couple doses of IV digoxin for rate control through the night. She also was tried on IV Cardizem but because of the hypotension had to be discontinued. Currently she is taking IV metoprolol as needed. Her blood pressure seems to be slowly coming up. She was on Eliquis, Entresto and metoprolol. This was stopped by the primary care provider because of the nosebleed and hypotension. She continues to be in atrial flutter/fibrillation with a heart rate in the 140s and 150s. This morning blood pressures in the 120s. Still may have some discomfort in the chest and neck area with the fast heartbeat. No fever or chills. Her white cell count is elevated. Medications: Medication Review Details: Current Medications Albuterol Sulfate (Albuterol 8 Gm Mdi) 2 puff INHALATION QID PRN PRN Reason: Shortness Of Breath Allopurinol (Allopurinol 100 Mg Tablet) 100 mg PO QAM [facility] Last Admin: 08/03/21 06:26 Dose: 100 mg Documented by: Alprazolam (Alprazolam 0.5 Mg Tablet) 0.25 mg PO TID PRN PRN Reason: anxiety Last Admin: 08/02/21 20:13 Dose: 0.25 mg Documented by: Apixaban (Apixaban 5 Mg Tablet) 2.5 mg PO BID [facility] Last Admin: 08/03/21 08:20 Dose: 2.5 mg Documented by: Aspirin (Aspirin 81 Mg Ec Tablet) 81 mg PO DAILY [facility] Last Admin: 08/03/21 08:19 Dose: 81 mg Documented by: Budesonide (Budesonide 0.5 Mg/2 Ml Neb) 0.5 mg INHALATION BID.RESPIRATORY [facility] Last Admin: 08/02/21 21:00 Dose: 0.5 mg Documented by: Dextrose (Dextrose 50% Syringe 50 Ml) 25 ml IVP ONCE PRN; Protocol PRN Reason: hypoglycemia protocol Dextrose (Dextrose 50% Syringe 50 Ml) 50 ml IVP PRN PRN; Protocol PRN Reason: hypoglycemia protocol Furosemide (Furosemide 10 Mg/Ml Sdv 4ml) 40 mg IVP Q12H RAMIRO Glucagon (Glucagon 1 Mg/Ml Inj 1 Ml) 1 mg IM ONCE PRN; Protocol PRN Reason: Adult Acute Hypoglycemia Prot. Amiodarone HCl 900 mg/Dextrose/ IV Miscellaneous Supplies 518 mls @ 0 mls/hr IV .Q0M [facility]; Protocol Last Titration: 08/02/21 19:00 Dose: 0.5 mg/min, 17.27 mls/hr Documented by: Dextrose (D5w) 500 mls @ 100 mls/hr IV ONCE PRN; Protocol PRN Reason: Adult Acute Hypoglycemia Prot Diltiazem HCl 100 mg/ Dextrose 80 mls @ 0 mls/hr IV .Q0M [facility]; Protocol Insulin Human Lispro (Insulin Lispro 100 Unit/1 Ml) 0 unit SUBCUT WM&BEDTIME [facility]; Protocol Last Admin: 08/03/21 08:20 Dose: 2 unit Documented by: Levothyroxine Sodium (Levothyroxine 175 Mcg Tablet) 175 mcg PO [facility] Last Admin: 08/03/21 06:26 Dose: 175 mcg Documented by: Non-Formulary Medication (Dexamethasone) 1.5 mg PO [facility] Last Admin: 08/03/21 06:27 Dose: Not Given Documented by: Ondansetron HCl (Ondansetron 2 Mg/Ml Sdv 2 Ml) 4 mg IVP Q6H PRN PRN Reason: NAUSEA AND VOMITING Pantoprazole Sodium (Pantoprazole Dr 40 Mg Tablet) 40 [facility] Last Admin: 08/03/21 06:26 Dose: 40 mg Documented by: Pramipexole Dihydrochloride (Pramipexole 0.25 Mg Tablet) 1 mg PO BEDTIME [facility] Last Admin: 08/02/21 20:55 Dose: 1 mg Documented by: Pregabalin (Pregabalin 75 Mg Capsule) 75 mg PO BID [facility] Last Admin: 08/03/21 08:19 Dose: 75 mg Documented by: Vitals/I&O/Wt Last Vital Signs Temp 98.5 F 08/03/21 04:00 Pulse 91 08/03/21 06:00 Resp 26 H 08/03/21 06:00 BP 93/57 08/03/21 06:00 Pulse Ox 91 08/03/21 06:00 08/02/21 08/03/21 08/03/21 22:59 06:59 14:59 Intake Total 1331.493 / 1581.493 Output Total 1650 / 2150 2950 / 5100 Balance -318.507 / -568.507 -2950 / -3518.507 Weight last 48 hrs Weight 349 lb 11.2 oz Weight 340 lb Weight 330 lb Physical Exam Narrative: GENERAL: The patient is alert and oriented times three. Not in any acute distress. Morbidly obese. Slightly tachypneic breathing at rate of 20/min HEENT: No significant pallor, icterus or lymphadenopathy.Oral cavity: There are no mucous membrane lesions. NECK: Trachea appears to be central. No masses noted. No JVD or thyromegaly appreciated. RESPIRATORY: Chest is symmetrical. No intercostals muscle retraction or any accessory muscle activation. There is no chest wall tenderness. Breath sounds are heard bilaterally. No rales or rhonchi heard. No evidence of any consolidation. BREASTS: Deferred. HEART: The first heart sound is variable. Second heart sound is normal. No S3. Short systolic murmur in the left sternal border. No diastolic murmurs. ABDOMEN: No vessel pulsations or distention. No tenderness. No organomegaly appreciated. Bowel sounds are normally heard. : Deferred. RECTAL: Deferred. LYMPHATIC: No lymphadenopathy noted in the neck. EXTREMITIES: 1+ edema with no cyanosis. MUSCULOSKELETAL: No acute joint deformities or swelling SKIN: There are no significant rashes or ecchymosis NEUROPSYCHIATRIC: The patient is alert and oriented x3. Appears to be in a good mood. No tremors or rigidity noted. Data : 08/03/21 03:25 08/03/21 03:25 A&P Assessment and plan (1) Atrial fibrillation and flutter: Patient may be continued on the amiodarone. May try metoprolol/digoxin for rate control. We will consider cardioversion, if she continues to be in atrial fibrillation . For adequate anticoagulation, I may discontinue the Eliquis and start her on Lovenox. We will keep her n.p.o. after midnight today Status: Acute (2) Hypotension: Currently she is normotensive. We will be watching her vital signs closely. May continue on the current medication for the time being. Status: Acute (3) Acute on chronic diastolic (congestive) heart failure: Patient may be carefully treated with IV diuretics. Status: Acute (4) Chronic kidney disease, stage 3a: Her kidney function seems to be stable. May continue on the current treatment measures. Status: Acute (5) Neutrophilic leukocytosis: Etiology? 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 Status: Acute Plan Based on the clinical progress, further recommendations will be made. 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
[2021-08-03] MEDS: ondansetron 2 mg/ML SDV 2 mL 4 MG IVP ×2 (09:59→17:18)
--- NOTE | 2021-08-03 10:04 | P.PN_ITS ---
Subjective Subjective: Carolyn reports she urinated quite a bit. Legs are better. Still significantly short of breath when moving around. No chest discomfort. Medications: Reviewed: Yes Vitals/I&O/Wt Last Vital Signs Temp 98.5 F 08/03/21 04:00 Pulse 91 08/03/21 06:00 Resp 26 H 08/03/21 06:00 BP 93/57 08/03/21 06:00 Pulse Ox 91 08/03/21 06:00 08/02/21 08/03/21 08/03/21 22:59 06:59 14:59 Intake Total 1331.493 / 1581.493 222 / 222 Output Total 1650 / 2150 2950 / 5100 Balance -318.507 / -568.507 -2950 / -3518.507 222 / 222 Weight last 48 hrs Weight 158.621 kg Weight 154.221 kg Weight 149.685 kg Physical Exam Narrative: General exam is a female, no distress Neck is supple no lymphadenopathy or thyromegaly Cardiovascular irregular, irregular and tachycardic. No murmur auscultated. Abdomen is soft nontender with positive bowel sounds. No obvious organomegaly exams deferred Extremities 1+ edema bilaterally. Improved from yesterday. No cyanosis or clubbing Skin no rash Data : 08/03/21 03:25 08/03/21 03:25 A&P Assessment and plan (1) Atrial fibrillation: Patient with history of paroxysmal atrial fibrillation. She was taken off beta-isaiah secondary to hypotension. She has continued to take, and be compliant with the amiodarone. Amiodarone drip started in the emergency department. 750 mcg of digoxin was given in total yesterday. She received a dose of Cardizem last night with some improvement Metoprolol 5 mg IV now Add metoprolol 12.5 mg twice daily Appreciate cardiology consultation Continue Eliquis 2.5 mg twice daily Status: Acute (2) CHF (congestive heart failure): Consistent with acute diastolic heart failure. She has been gaining edema weight recently. She diuresed very well, and with blood pressure somewhat low will decrease Lasix to 40 mg every 12 hours, to start at 6 PM Status: Acute Qualifiers: Heart failure chronicity: acute Heart failure type: unspecified Qualified Code(s): I50.9 - Heart failure, unspecified (3) Type 2 diabetes mellitus with other diabetic kidney complication: Sliding scale insulin Status: Acute (4) Central hypothyroidism: Continue home medications including dexamethasone Status: Acute Plan Multiple other medical problems as outlined in past medical history Eliquis will be initiated answer for DVT prophylaxis as well Full code Attestations Medical Necessity Statement*: Needs continued hospitalization for treatment of atrial fibrillation with rapid ventricular rate, adjusting medications for optimization and if this fails consideration of cardioversion. Coding Level of Care Code Acute Monotype Operator for [facility] Fwd Diagnoses Atrial fibrillation I48.91 CHF (congestive heart failure) I50.9 Heart failure chronicity: acute Heart failure type: unspecified Type 2 diabetes mellitus with other diabetic kidney complication E11.29 Central hypothyroidism E03.8
[2021-08-03] MEDS: dexamethasone 4 mg Tablet 2 MG PO (11:02)
[2021-08-03 11:11] LABS: Glucose Point of Care 157 mg/dL (70-110)
[2021-08-03] MEDS: metoprolol tartrate 25 mg Tablet 12.5 MG PO (11:29)
[2021-08-03] MEDS: potassium chloride ER 20 mEq Tablet 40 MEQ PO (11:29)
[2021-08-03] MEDS: digoxin 250 mcg/ml INJ 2 mL IVP (12:19)
[2021-08-03] MEDS: fixodent 39 gm Tube 1 APPLIC DENTAL (16:13)
--- NOTE | 2021-08-03 17:26 | PC.NURSE ---
Blood pressures consistently low, Dr. Sellers ordered to hold 1800 dose of metoprolol.
[2021-08-03 17:41] LABS: Glucose Point of Care 327 mg/dL (70-110)
[2021-08-03] MEDS: enoxaparin 150 mg/mL Syringe SUBCUT (17:45)
[2021-08-03 20:26] LABS: Glucose Point of Care 340 mg/dL (70-110)
[2021-08-03] MEDS: pramipexole 0.25 mg Tablet 1 MG PO (21:14)
[2021-08-04] VITALS (27 sets, daily range): BP systolic 88–154; BP diastolic 47–109; PULSE 59–149; RESP 15–68; TEMP 36.6–37.1; O2SAT 82–99; BMI 58.8
[2021-08-04] MEDS: ALPRAZolam 0.5 mg Tablet 0.25 MG PO (02:09)
[2021-08-04] MEDS: ondansetron 2 mg/ML SDV 2 mL 4 MG IVP (03:50)
[2021-08-04 04:31] LABS: Basophils # 0.1 10^3/uL (0.0-0.1); Basophils % 0.3 %; Eosinophils % 0.2 %; Hematocrit 43.6 % (37.0-47.0); Hemoglobin 12.4 g/dL (11.5-15.3); Lymphocytes # 1.3 10^3/uL (0.8-4.8); Lymphocytes % 7.4 %; Mean Corpuscular HGB Conc 28.4 g/dL (30.0-36.0); Mean Corpuscular Hemoglobin 22.5 pg (28.0-34.0); Mean Corpuscular Volume 79.1 fl (81-99); Mean Platelet Volume 10.1 fL (7.4-10.4); Monocytes # 0.9 10^3/uL (0.2-0.9); Monocytes % 5.2 %; Neutrophils # 15.51 10^3/uL (1.8-7.7); Neutrophils % 86.1 %; Nucleated Red Blood Cells % 0 %; Platelet Count 251 10^3/cmm (130-400); Red Blood Count 5.51 10^6/uL (4.1-5.3); Red Cell Distribution Width 19.9 % (12.1-15.1)
[2021-08-04 04:56] LABS: Anion Gap 13.7 (5-19); Blood Urea Nitrogen 25 mg/dL (8-23); Calcium 9.1 mg/dL (8.5-10.5); Carbon Dioxide 26 mmol/L (22-29); Chloride 99 mmol/L (98-107); Glomerular Filtration Rate 49.2 mL/min (90-130); Glucose 181 mg/dL (65-115); Magnesium 2.6 mg/dL (1.7-2.3); Osmolality Calculated 289 mOsm/kg (285-295); Potassium 3.7 mmol/L (3.5-5.1); Sodium 135 mmol/L (136-145)
[2021-08-04] MEDS: levothyroxine 175 mcg Tablet PO (06:09)
[2021-08-04] MEDS: dexamethasone 4 mg Tablet 2 MG PO (06:09)
[2021-08-04] MEDS: allopurinol 100 mg Tablet PO (06:09)
[2021-08-04] MEDS: pantoprazole DR 40 mg Tablet PO (06:09)
[2021-08-04] MEDS: enoxaparin 150 mg/mL Syringe SUBCUT ×2 (06:09→18:00)
--- NOTE | 2021-08-04 07:20 | PC.NURSE ---
Bedside report completed with MYRON Daigle.
[2021-08-04 07:46] LABS: Glucose Point of Care 178 mg/dL (70-110)
--- NOTE | 2021-08-04 08:10 | PM.PN ---
Subjective Subjective: Carolyn reports she is feeling okay right now. She believes she may be having a cardioversion today. She had some chest discomfort last night, upper chest and shoulder. Medications: Reviewed: Yes Vitals/I&O/Wt Last Vital Signs Temp 98.4 F 08/03/21 19:00 Pulse 110 H 08/04/21 06:00 Resp 24 H 08/04/21 06:00 BP 121/98 08/04/21 06:00 Pulse Ox 98 08/04/21 05:00 08/03/21 08/04/21 08/04/21 22:59 06:59 14:59 Intake Total 120 / 1081.338 Output Total 750 / 750 900 / 1650 Balance -630 / 331.338 -900 / -568.662 Weight last 48 hrs Weight 144.696 kg Weight 158.621 kg Weight 154.221 kg Physical Exam Narrative: General exam is a female, no distress Neck is supple no lymphadenopathy or thyromegaly Cardiovascular irregular, irregular and tachycardic. No murmur auscultated. Abdomen is soft nontender with positive bowel sounds. No obvious organomegaly exams deferred Extremities 1+ edema bilaterally. Skin no rash Data : 08/04/21 03:47 08/04/21 03:47 A&P Assessment and plan (1) Atrial fibrillation: Patient with history of paroxysmal atrial fibrillation. She was taken off beta-isaiah secondary to hypotension. She has continued to take, and be compliant with the amiodarone. Amiodarone drip started in the emergency department. She received some digoxin during this hospital stay. Defer to cardiology whether they continue today. Metoprolol 12.5 mg twice daily was added to her regimen. She did not receive a dose last night secondary to hypotension. On full dose anticoagulation with Lovenox currently. Status: Acute (2) CHF (congestive heart failure): Consistent with acute diastolic heart failure. She has been gaining edema weight recently. Diuresis held yesterday secondary to hypotension. However, she was still 600 cc down. Status: Acute Qualifiers: Heart failure type: unspecified Heart failure chronicity: acute Qualified Code(s): I50.9 - Heart failure, unspecified (3) Type 2 diabetes mellitus with other diabetic kidney complication: Sliding scale insulin Status: Acute (4) Central hypothyroidism: Continue home medications including dexamethasone I believe her white blood cell count is elevated secondary to this. Status: Acute Plan Multiple other medical problems as outlined in past medical history Lovenox will suffice for DVT prophylaxis Full code Attestations Medical Necessity Statement*: Needs continued hospitalization secondary to persistent atrial fibrillation with rapid ventricular rate, as well as associated hypotension. Coding Level of Care Code Acute Front Desk Worker for g Fwd Diagnoses Atrial fibrillation I48.91 CHF (congestive heart failure) I50.9 Heart failure type: unspecified Heart failure chronicity: acute Type 2 diabetes mellitus with other diabetic kidney complication E11.29 Central hypothyroidism E03.8
[2021-08-04] MEDS: aspirin 81 mg EC Tablet PO (08:21)
[2021-08-04] MEDS: pregabalin 75 mg Capsule PO ×2 (08:21→18:00)
[2021-08-04] MEDS: insulin lispro 100 unit/1 mL SUBCUT ×4 (08:22→20:08)
--- NOTE | 2021-08-04 11:22 | ECG_ITS ---
[facility] Test Date: 2021-08-04 Pat Name: Carolyn Alexander Department: Room: ICU06 Gender: Female Rn Psychiatric: : 1950 Requested By: Chris Sellers Order Number: [id number] Laina MD: Jaki Leavitt M.D. Measurements Intervals [place] Rate: 145 P: 100 UT: 129 QRS: -53 QRSD: 102 T: 25 QT: 352 QTc: 547 Interpretive Statements ATRIAL FLUTTER WITH RVR LEFT ANTERIOR FASCICULAR BLOCK [QRS AXIS <= -45, QR IN I, RS IN II] MODERATE ST DEPRESSION [0.05+ mV ST DEPRESSION] Compared to ECG 08/02/2021 17:19:29 Left anterior fascicular block now present ST (T wave) deviation now present Intraventricular conduction delay no longer present Electronically Signed On 08-04-2021 22:54:20 CDT by Jaki Leavitt M.D. [id number]
--- NOTE | 2021-08-04 12:50 | P.ANESASSM_ITS ---
Pre-Anesthetic Assessment Height/Weight: Height 1.65 m Weight 144.696 kg Temp Pulse Resp BP Pulse Ox 98.8 F 119 H 17 107/58 86 L 08/04/21 07:30 08/04/21 09:00 08/04/21 09:00 08/04/21 09:00 08/04/21 09:00 Preop Diagnosis: Pulmonary hypertension Cardioversion Familial anesthetic complications: None Was Beta Jumana taken within 24 hours: N/A Was Clonidine taken within 24 hours: N/A Social No alcohol and No tobacco Exam alert, oriented x 3 and clear to auscultation bilaterally tachy, 140's Airway Submandibular: within normal limits Cervical ROM: within normal limits Mallampati: Class I Dentition: false Pulmonary Sleep Apnea CV/HEM Atrial Fibrillation, Anemia, Congestive Heart Failure and Hypertension Chronic Renal Insufficiency GI Gastroesophageal Reflux Disease Metabolic Diabetes Mellitus and Morbid Obesity steroids Musc/skel Lower Back Pain Anesthetic Plan ASA status: 4 Anesthesia: MAC Medications/Allergies Home Medications Medication Instructions Recorded Confirmed Last Taken Type epinephrine 0.3 mg/0.3 mL 0.3 mg (0.3 mL) IM Q10M PRN #2 ea 04/20/20 08/02/21 Unknown Rx injection, auto-injector (EpiPen 2-Nabeel) levothyroxine 175 mcg tablet 175 mcg PO QAM 01/19/21 08/02/21 08/01/21 History diabetic supplies, miscellan. #1 ea 01/21/21 08/02/21 Unknown Rx blood sugar diagnostic (Pharmacist #50 ea 03/04/21 08/02/21 Unknown Rx Choice) blood-glucose meter,continuous #1 ea 03/04/21 08/02/21 Unknown Rx lancets 30 gauge (Easy Touch #100 ea 03/04/21 08/02/21 Unknown Rx Lancets) alprazolam 0.25 mg tablet 0.25 mg PO TID PRN 30 Days #90 tab 04/16/21 08/02/21 Unknown Rx polyethylene glycol 3350 17 17 g PO DAILY PRN 05/05/21 08/02/21 Unknown History gram/dose oral powder (Miralax) blood-glucose meter,continuous #1 ea 06/10/21 08/02/21 Unknown Rx (Dexcom G6 Beater And Pulper Feeder) blood-glucose sensor (Dexcom G6 #3 ea 06/10/21 08/02/21 Unknown Rx Sensor) blood-glucose transmitter (Dexcom #1 ea 06/10/21 08/02/21 Unknown Rx G6 Transmitter) lidocaine 5 % topical patch 1 patch TOPICAL DAILY 30 Days #30 07/13/21 08/02/21 Unknown Rx ea pregabalin 75 mg capsule (Lyrica) 75 mg PO BID 30 Days #60 cap 07/23/21 08/02/21 08/01/21 Rx ciprofloxacin HCl 500 mg tablet 500 mg PO BID 10 Days #20 tab 07/26/21 08/02/21 08/01/21 Rx (Cipro) finished 08/01/21 ondansetron 4 mg disintegrating 4 mg PO Q6H PRN #90 tab 07/28/21 08/02/21 Unknown Rx tablet albuterol sulfate 90 mcg/actuation 2 puff INHALATION QID PRN 08/02/21 08/02/21 Unknown History aerosol inhaler allopurinol 100 mg tablet 100 mg PO QAM 08/02/21 08/02/21 08/01/21 History amiodarone 200 mg tablet 200 mg PO QAM 08/02/21 08/02/21 Unknown History aspirin 81 mg tablet,delayed 81 mg PO DAILY 08/02/21 08/02/21 Unknown History release budesonide-formoterol HFA 160 2 puff INHALATION BID PRN 08/02/21 08/02/21 Unkno wn History mcg-4.5 mcg/actuation aerosol inhaler (Symbicort) bumetanide 1 mg tablet 1 - 2 mg PO DAILY 08/02/21 08/02/21 08/01/21 History cetirizine 10 mg tablet (Zyrtec) 10 mg PO DAILY 08/02/21 08/02/21 Unknown History dexamethasone 1 mg tablet 1.5 mg PO QAM 08/02/21 08/02/21 08/01/21 History empagliflozin 10 mg tablet 10 mg PO QAM 08/02/21 08/02/21 08/01/21 History (Jardiance) olopatadine 0.7 % eye drops 1 drp OPHTHALMIC (EYE) QAM PRN 08/02/21 08/02/21 Unknown History (Pataday Once Daily Relief) pantoprazole 40 mg tablet,delayed 40 mg PO QAM 08/02/21 08/02/21 08/01/21 History release (Protonix) potassium chloride 10 mEq 20 meq PO BID 08/02/21 08/02/21 08/01/21 History tablet,extended release pramipexole 0.5 mg tablet (Mirapex) 1 mg PO BEDTIME 08/02/21 08/02/21 08/01/21 History sacubitril 24 mg-valsartan 26 mg 1 tab PO BID 08/02/21 08/02/21 08/01/21 History tablet (Entresto) see pharmacy comment semaglutide (Ozempic) 1 mg SUBCUT Q7D 08/02/21 08/02/21 07/25/21 History triamterene 37.5 1 tab PO QAM 08/02/21 08/02/21 08/01/21 History mg-hydrochlorothiazide 25 mg tablet Allergies Allergy/AdvReac Type Severity Reaction Status Date / Time acetaminophen [From Tylenol] Allergy ALGY-Hives Verified 07/08/21 08:53 azithromycin Allergy ALGY-Anaphy Verified 07/08/21 08:53 laxis benzocaine Allergy ALGY-Hives Verified 07/08/21 08:53 butamben [From Cetacaine] Allergy ALGY-Swell Verified 07/08/21 08:53 Lip/Tongue/Throat codeine Allergy ALGY-Hives Verified 07/08/21 08:53 fentanyl Allergy ALGY-Anaphy Verified 07/08/21 08:53 laxis hydrocodone [From Vicodin] Allergy ALGY-Hives Verified 07/08/21 08:53 hydromorphone [From Dilaudid] Allergy ADR-Vomitin Verified 07/08/21 08:53 g Iodinated Contrast Media Allergy ALGY-Anaphy Verified 07/08/21 08:53 laxis liothyronine Allergy ADR-Nausea Verified 07/08/21 08:53 meperidine [From Demerol] Allergy Unknown Verified 07/08/21 08:53 morphine Allergy ALGY-Anaphy Verified 07/08/21 08:53 laxis nitrofurantoin Allergy ALGY-Joint Verified 07/08/21 08:53 [From Macrobid] Pain oxycodone [From Percocet] Allergy ALGY-Hives Verified 07/08/21 08:53 penicillin V Allergy ALGY-Hives Verified 07/08/21 08:53 Penicillins Allergy Unknown Verified 07/08/21 08:53 Phenothiazines Allergy ALGY-Anaphy Verified 07/08/21 08:53 laxis procaine Allergy ALGY-Hives Verified 07/08/21 08:53 prochlorperazine Allergy ALGY-Anaphy Verified 07/08/21 08:53 [From Compazine] laxis Sulfa (Sulfonamide Allergy Unknown Verified 07/08/21 08:53 Antibiotics) tetracaine [From Cetacaine] Allergy ALGY-Swell Verified 07/08/21 08:53 Lip/Tongue/Throat Current Medications Generic Name Dose Route Start Last Admin Trade Name Freq PRN Reason Stop Dose Admin Allopurinol 100 mg 08/03/21 06:00 08/04/21 06:09 Allopurinol 100 Mg Tablet PO 100 mg QAM RAMIRO Administration Alprazolam 0.25 mg 08/02/21 14:09 08/04/21 02:09 Alprazolam 0.5 Mg Tablet PO 0.25 mg TID PRN Administration anxiety Aspirin 81 mg 08/03/21 09:00 08/04/21 08:21 Aspirin 81 Mg Ec Tablet PO 81 mg DAILY RAMIRO Administration Budesonide 0.5 mg 08/02/21 20:00 08/03/21 19:57 Budesonide 0.5 Mg/2 Ml Neb INHALATION Not Given BID.RESPIRATORY RAMIRO Denture Adhesive 1 applic 08/03/21 16:00 08/03/21 16:13 Fixodent 39 Gm Tube DENTAL 1 applic PRN PRN Administration denture adhesive Dexamethasone 2 mg 08/03/21 11:00 08/04/21 06:09 Dexamethasone 4 Mg Tablet PO 2 mg QAM RAMIRO Administration Enoxaparin Sodium 150 mg 08/03/21 18:00 08/04/21 06:09 Enoxaparin 150 Mg/Ml Syringe SUBCUT 150 mg Q12H RAMIRO Administration Amiodarone HCl 900 mg/ 518 mls @ 0 mls/hr 08/02/21 11:00 08/03/21 10:01 Dextrose/ IV Miscellaneous IV 0.5 mg/min Supplies .Q0M RAMIRO 17.27 mls/hr Administration Protocol Per Protocol Insulin Human Lispro 0 unit 08/02/21 18:00 08/04/21 08:22 Insulin Lispro 100 Unit/1 Ml SUBCUT 2 unit WM&BEDTIME RAMIRO Administration Protocol Levothyroxine Sodium 175 mcg 08/03/21 06:00 08/04/21 06:09 Levothyroxine 175 Mcg Tablet PO 175 mcg QAM RAMIRO Administration Metoprolol Tartrate 12.5 mg 08/03/21 10:50 08/04/21 10:37 Metoprolol Tartrate 25 Mg Tablet PO Not Given BID RAMIRO Ondansetron HCl 4 mg 08/02/21 11:28 08/04/21 03:50 Ondansetron 2 Mg/Ml Sdv 2 Ml IVP 4 mg Q6H PRN Administration NAUSEA AND VOMITING Pantoprazole Sodium 40 mg 08/03/21 06:00 08/04/21 06:[address] 40 Mg Tablet PO 40 mg QAM RAMIRO Administration Pramipexole Dihydrochloride 1 mg 08/02/21 21:00 08/03/21 21:14 Pramipexole 0.25 Mg Tablet PO 1 mg BEDTIME RAMIOR Administration Pregabalin 75 mg 08/02/21 18:00 08/04/21 08:21 Pregabalin 75 Mg Capsule PO 75 mg BID RAMIRO Administration PFS Anesthesia Medical History Acute kidney injury superimposed on chronic kidney disease Adrenal insufficiency Anasarca Anasarca Anasarca Anemia Benign essential hypertension with target blood pressure below 140/90 Central hypothyroidism CHF (congestive heart failure) CHF exacerbation Chronic back pain Follows at pain clinic for periodic injections COVID-19 (~09/2020) Edema Facet arthritis, degenerative, lumbar spine Fatigue Gastroenteritis History of anaphylaxis History of atrial fibrillation Intermittent, has not required long-term anticoagulation or focused treatment History of COVID-19 HTN (hypertension) Hyperaldosteronism 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 Increased nausea and vomiting Lumbar spondylolysis OAB (overactive bladder) Obesity Obesity, morbid, BMI 50 or higher Obstructive sleep apnea KP (obstructive sleep apnea) Paroxysmal atrial fibrillation Pituitary macroadenoma with extrasellar extension Prediabetes Pulmonary hypertension PVD (peripheral vascular disease) Steroid dependence Tachycardia Unsteady gait UTI (urinary tract infection) Venous (peripheral) insufficiency Volume overload Surgical History H/O shoulder surgery History of hysterectomy History of pituitary surgery S/P insertion of spinal cord stimulator Family History Father Cancer pancreatic cancer Sister No problems noted. 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 Female Reproductive History Date of last menstrual period: 01/22/21 Data Anesthesia : 08/04/21 03:47 08/04/21 03:47 Short CBC 08/03/21 08/04/21 Range/Units 03:25 03:47 WBC 16.4 H 18.0 H (4.0-10.0) 10^3/uL Hgb 13.6 12.4 (11.5-15.3) g/dL Hct 45.8 43.6 (37.0-47.0) % MCV 77.4 L 79.1 L (81-99) fl Plt Count 203 251 (130-400) 10^3/cmm Neut % (Auto) 72.0 86.1 % Neut # (Auto) 11.77 H 15.51 H (1.8-7.7) 10^3/uL BMP 08/03/21 08/04/21 03:25 03:47 Sodium 138 135 L Potassium 3.5 3.7 Chloride 99 99 Carbon Dioxide 27 26 BUN 26 H 25 H Creatinine 1.3 H 1.1 H Glucose 174 H 181 H Calcium 8.7 9.1 Cardiac Enzymes 08/02/21 Range/Units 14:18 Troponin T Hi Sens 6Hr 16.96 H (0-10) ng/L Troponin T Hi Sens 6Hr Delta 1.96 (0-12) ng/L Liver Function 08/03/21 Range/Units 03:25 Total Bilirubin 0.3 (0.15-1.2) mg/dL AST 13 (0-32) U/L ALT 16 (0-33) U/L Alkaline Phosphatase 109 H (35-105) IU/L Albumin 3.3 L (3.5-5.2) g/dL Cardiac Studies: Echocardiogram 01/19/21 Echocardiogram Limited Views 02/12/21 Cardiac Event Monitor 01/05/21
--- NOTE | 2021-08-04 13:00 | USCV_ITS ---
Carolyn Alexander Age: 71 Gender: F : 1950 Exam Date: 08/04/2021 13:03 Ordering Phys: Chris Sellers MD ([email or web address]) Technologist: Rajendra Toure [place] [facility] [place]: A-FLUTTER BP: / HR: Rhythm: Sinus Technical Quality: MEASUREMENTS (Male / Female) Normal Values Medications IV propofol administered by the anesthesia service. Please refer to anesthesia report Complications None Proc. Components ITU was performed in the ICU.the VISHAL probe was passed into the posterior pharynx , mid-esophagus, and distal esophagus.VISHAL was performed at multiple levels. The patient tolerated the procedure well and there were no complications. FINDINGS Left Ventricle Normal LV size and ejection fraction Right Ventricle The right ventricle is normal in size and function. Right Atrium The right atrium is normal in size. Left Atrium Moderately dilated. LA Appendage Relatively small. Patient was found to be in flutter during the study. IA Septum Lipomatous dystrophy of the interatrial septum Mitral Valve Trace mitral valve regurgitation. No ASD or patent foramen ovale, by color-flow Doppler examination or saline contrast injection Aortic Valve Structurally normal aortic valve without significant sclerosis or stenosis. There is no aortic regurgitation. Tricuspid Valve Trace tricuspid valve regurgitation. Pulmonic Valve Structurally normal pulmonic valve without significant stenosis. There is no pulmonic regurgitation. Pericardium Normal pericardium without effusion. Aorta Intimal thickening and minimal plaques in the descending aorta CONCLUSIONS No intracardiac masses or thrombi. Left atrial appendage was visually small and was found to be dimitri well Lipomatous dystrophy of the interatrial septum No intracardiac shunts noted by color-flow Doppler examination or by saline contrast injection Trace of TR and MR Intimal thickening and minimal plaques are noted in the descending aorta Dr Chris Sellers MD [facility] (Electronically Signed) Final Date: 05 Aug 2021 07:32 S
--- NOTE | 2021-08-04 13:30 | PC.NURSE ---
Lesia Yung from anesthesia, [facility], [place] present., along with this nurse. VISHAL completed. Pt then controverted. 1 synchronized shock at 120 Joules, Pt back into sinus rhythm. It stated out as bradycardia continued to improve to normal sinus rhythm. Pt tolerated well.
--- NOTE | 2021-08-04 13:33 | W.PM.OPSUD ---
Surgery/Procedure H&P Update DATE OF PROCEDURE: August 04, 2021 DATE H&P PERFORMED: 08/02/21 H&P UPDATE INFORMATION: I have reviewed H&P completed within last 30 days, I have examined patient prior to procedure and No changes to prior documentation PREOP DIAGNOSIS: Atrial flutter/fibrillation/hypotension PRIMARY INDICATION FOR PROCEDURE: Atrial fibrillation with rapid ventricular rate/hypotension PLANNED PROCEDURE: VISHAL/ cardioversion
--- NOTE | 2021-08-04 13:36 | PM.OP ---
Operative Report Date of procedure: August 04, 2021 Pre-op diagnosis: Preop Diagnosis Atrial flutter/fibrillation/hypotension Procedure: Electrical cardioversion report Preprocedure diagnoses: Atrial fibrillation/hypertension. Brief history: 71-year-old white female with a history of intermittent atrial fibrillation, he is admitted to the hospital with atrial fibrillation, rapid ventricular rate, diastolic heart failure and hypertension. Patient was treated with IV digoxin, metoprolol and amiodarone. She continued to be in atrial fibrillation with rapid ventricular rate. For further management of her condition, electrical cardioversion was recommended. Location of the procedure: ICU Electrode application: Anteroposterior Electrical energy applied: 120 J of biphasic current Number of shocks: 1 Final rhythm: Normal sinus rhythm Final blood pressure: 107/70 Complications: None Recommendation(s): Continue IV amiodarone
[2021-08-04 13:40] LABS: Glucose Point of Care 161 mg/dL (70-110)
--- NOTE | 2021-08-04 13:47 | ANE.PACU2 ---
Inpatient post-anesthesia follow up: Airway intact: Yes Vital signs: Temperature 98.8 F Pulse Rate 119 Respiratory Rate 17 Blood Pressure 107/58 Pulse Oximetry 86 Oxygen Delivery Me thod Nasal Cannula Oxygen Flow Rate 3 Fraction of Inspir ed Oxygen Hydration adequate: Yes Nausea and vomiting: No Pain level: 2 Mental status: Baseline
[2021-08-04 17:30] LABS: Glucose Point of Care 247 mg/dL (70-110)
--- NOTE | 2021-08-04 17:30 | PC.NURSE ---
Report faxed to [facility]SU. Further verbal report called and given to MYRON Damico Pt transferred to room 103. Family packed up her belongings. All belongings with pt.
[2021-08-04] MEDS: metoprolol tartrate 25 mg Tablet 12.5 MG PO (18:00)
--- NOTE | 2021-08-04 18:25 | PM.PN ---
Subjective Subjective: Patient continues to be in atrial fibrillation/flutter with rapid ventricular rate. The systolic blood pressure is in the upper 80s and low 90s. No shortness of breath he is somewhat better. May have occasional sharp pains in the chest. No fever or chills. No cough. Medications: Medication Review Details: Current Medications Albuterol Sulfate (Albuterol 8 Gm Mdi) 2 puff INHALATION QID PRN PRN Reason: Shortness Of Breath Allopurinol (Allopurinol 100 Mg Tablet) 100 mg PO QAM [facility] Last Admin: 08/04/21 06:09 Dose: 100 mg Documented by: Alprazolam (Alprazolam 0.5 Mg Tablet) 0.25 mg PO TID PRN PRN Reason: anxiety Last Admin: 08/04/21 02:09 Dose: 0.25 mg Documented by: Aspirin (Aspirin 81 Mg Ec Tablet) 81 mg PO DAILY [facility] Last Admin: 08/04/21 08:21 Dose: 81 mg Documented by: Budesonide (Budesonide 0.5 Mg/2 Ml Neb) 0.5 mg INHALATION BID.RESPIRATORY [facility] Last Admin: 08/04/21 15:21 Dose: Not Given Documented by: Denture Adhesive (Fixodent 39 Gm Tube) 1 applic DENTAL PRN PRN PRN Reason: denture adhesive Last Admin: 08/03/21 16:13 Dose: 1 applic Documented by: Dexamethasone ([facility] 4 Mg Tablet) [facility] Admin: 08/04/21 06:09 Dose: 2 mg Documented by: Dextrose (Dextrose 50% Syringe 50 Ml) 25 ml IVP ONCE PRN; Protocol PRN Reason: hypoglycemia protocol Dextrose (Dextrose 50% Syringe 50 Ml) 50 ml IVP PRN PRN; Protocol PRN Reason: hypoglycemia protocol Enoxaparin Sodium (Enoxaparin 150 Mg/Ml Syringe) 150 mg SUBCUT Q12H [facility] Last Admin: 08/04/21 18:00 Dose: 150 mg Documented by: Glucagon (Glucagon 1 Mg/Ml Inj 1 Ml) 1 mg IM ONCE PRN; Protocol PRN Reason: Adult Acute Hypoglycemia Prot. Amiodarone HCl 900 mg/Dextrose/ IV Miscellaneous Supplies 518 mls @ 0 mls/hr IV .Q0M [facility]; Protocol Last Titration: 08/04/21 17:13 Dose: 0.5 mg/min, 17.27 mls/hr Documented by: Dextrose (D5w) 500 mls @ 100 mls/hr IV ONCE PRN; Protocol PRN Reason: Adult Acute Hypoglycemia Prot Insulin Human Lispro (Insulin Lispro 100 Unit/1 Ml) 0 unit SUBCUT WM&BEDTIME [facility]; Protocol Last Admin: 08/04/21 18:00 Dose: 6 unit Documented by: Levothyroxine Sodium (Levothyroxine 175 Mcg Tablet) 175 mcg PO QAM [facility] Last Admin: 08/04/21 06:09 Dose: 175 mcg Documented by: Metoprolol Tartrate (Metoprolol Tartrate 25 Mg Tablet) 12.5 mg PO BID [facility] Last Admin: 08/04/21 18:00 Dose: 12.5 mg Documented by: Ondansetron HCl (Ondansetron 2 Mg/Ml Sdv 2 Ml) 4 mg IVP Q6H PRN PRN Reason: NAUSEA AND VOMITING Last Admin: 08/04/21 03:50 Dose: 4 mg Documented by: Pantoprazole Sodium (Pantoprazole Dr 40 Mg Tablet) 40 mg PO QAM [facility] Last Admin: 08/04/21 06:09 Dose: 40 mg Documented by: Pramipexole Dihydrochloride (Pramipexole 0.25 Mg Tablet) 1 mg PO BEDTIME [facility] Last Admin: 08/03/21 21:14 Dose: 1 mg Documented by: Pregabalin (Pregabalin 75 Mg Capsule) 75 mg PO BID [facility] Last Admin: 08/04/21 18:00 Dose: 75 mg Documented by: Vitals/I&O/Wt Last Vital Signs Temp 98.0 F 08/04/21 17:48 Pulse 67 08/04/21 17:48 Resp 15 08/04/21 17:48 BP 144/98 08/04/21 17:48 Pulse Ox 95 08/04/21 17:48 08/04/21 08/04/21 08/04/21 06:59 14:59 22:59 Intake Total 998 / 1028 Output Total 900 / 1650 675 / 675 Balance -900 / -568.662 323 / 353 Weight last 48 hrs Weight 353 lb 4.8 oz Weight 319 lb Weight 349 lb 11.2 oz Physical Exam Narrative: GENERAL: The patient is alert and oriented times three. Not in any acute distress.? Morbidly obese.? Slightly tachypneic breathing at rate of 20/min HEENT: No significant pallor, icterus or lymphadenopathy.Oral cavity: There are no mucous membrane lesions. NECK: Trachea appears to be central. No masses noted. No JVD or thyromegaly appreciated. RESPIRATORY: Chest is symmetrical. No intercostals muscle retraction or any accessory muscle activation. There is no chest wall tenderness. Breath sounds are heard bilaterally. No rales or rhonchi heard. No evidence of any consolidation. BREASTS: Deferred. HEART: The first heart sound is variable.? Second heart sound is normal.? No S3.? Short systolic murmur in the left sternal border.? No diastolic murmurs. ABDOMEN: No vessel pulsations or distention. No tenderness. No organomegaly appreciated.? Bowel sounds are normally heard. : Deferred. RECTAL: Deferred. LYMPHATIC: No lymphadenopathy noted in the neck. EXTREMITIES: 1+ edema with no cyanosis. MUSCULOSKELETAL: No acute joint deformities or swelling SKIN: There are no significant rashes or ecchymosis NEUROPSYCHIATRIC: The patient is alert and oriented x3. Appears to be in a good mood. No tremors or rigidity noted. Urinary Catheter Management: Zurita: Cath Placed During This Visit: no Reason for Continuing Indwelling Catheter: Accurate Measurement of Urinary Output in Critically Ill Patients Data : 08/04/21 03:47 08/04/21 03:47 Other Labs: Laboratory Last Values WBC 18.0 10^3/uL (4.0-10.0) H 08/04/21 03:47 RBC 5.51 10^6/uL (4.1-5.3) H 08/04/21 03:47 Hgb 12.4 g/dL (11.5-15.3) 08/04/21 03:47 Hct 43.6 % (37.0-47.0) 08/04/21 03:47 MCV 79.1 fl (81-99) L 08/04/21 03:47 MCH 22.5 pg (28.0-34.0) L 08/04/21 03:47 MCHC 28.4 g/dL (30.0-36.0) L 08/04/21 03:47 RDW 19.9 % (12.1-15.1) H 08/04/21 03:47 Plt Count 251 10^3/cmm (130-400) 08/04/21 03:47 MPV 10.1 fL (7.4-10.4) 08/04/21 03:47 Neut % (Auto) 86.1 % 08/04/21 03:47 Lymph % (Auto) 7.4 % 08/04/21 03:47 [place] % (Auto) 5.2 % 08/04/21 03:47 Eos % (Auto) 0.2 % 08/04/21 03:47 Baso % (Auto) 0.3 % 08/04/21 03:47 Neut # (Auto) 15.51 10^3/uL (1.8-7.7) H 08/04/21 03:47 Lymph # (Auto) 1.3 10^3/uL (0.8-4.8) 08/04/21 03:47 [place] # (Auto) 0.9 10^3/uL (0.2-0.9) 08/04/21 03:47 Eos # (Auto) 0.0 10^3/uL (0.0-0.8) 08/04/21 03:47 Baso # (Auto) 0.1 10^3/uL (0.0-0.1) 08/04/21 03:47 Nucleated RBC % (auto) 0 % 08/04/21 03:47 Nucleated RBCs # 0.0 /100WBC 08/04/21 03:47 Sodium 135 mmol/L (136-145) L 08/04/21 03:47 Potassium 3.7 mmol/L (3.5-5.1) 08/04/21 03:47 Chloride 99 mmol/L (98-107) 08/04/21 03:47 Carbon Dioxide 26 mmol/L (22-29) 08/04/21 03:47 Anion Gap 13.7 (5-19) 08/04/21 03:47 BUN 25 mg/dL (8-23) H 08/04/21 03:47 Creatinine 1.1 mg/dL (0.5-0.9) H 08/04/21 03:47 GFR Calculation 49.2 mL/min (90-130) L 08/04/21 03:47 Glucose 181 mg/dL (65-115) H 08/04/21 03:47 POC Glucose 247 mg/dL (70-110) H 08/04/21 17:27 Calculated Osmolality 289 mOsm/kg (285-295) 08/04/21 03:47 Calcium 9.1 mg/dL (8.5-10.5) 08/04/21 03:47 Magnesium 2.6 mg/dL (1.7-2.3) H 08/04/21 03:47 Total Bilirubin 0.3 mg/dL (0.15-1.2) 08/03/21 03:25 AST 13 U/L (0-32) 08/03/21 03:25 ALT 16 U/L (0-33) 08/03/21 03:25 Alkaline Phosphatase 109 IU/L (35-105) H 08/03/21 03:25 Creatine Kinase 33 U/L (26-192) 08/02/21 09:00 Troponin T Baseline 15 ng/L (0-10) H 08/02/21 09:00 Troponin T 120 Minute 15.12 ng/L (0-10) H 08/02/21 10:39 Delta Troponin T 0.12 ABS# (0-10) 08/02/21 10:39 Troponin T Hi Sens 6Hr 16.96 ng/L (0-10) H 08/02/21 14:18 Troponin T Hi Sens 6Hr Delta 1.96 ng/L (0-12) 08/02/21 14:18 NT-Pro-B Natriuret Pep 3608 pg/mL (0-125) H 08/02/21 09:00 Total Protein 5.5 g/dL (6.6-8.7) L 08/03/21 03:25 Albumin 3.3 g/dL (3.5-5.2) L 08/03/21 03:25 Globulin 2.2 g/dL (1.3-4.6) 08/03/21 03:25 Urine Color Straw (Yellow) 08/02/21 09:00 Urine Appearance Clear (CLEAR) 08/02/21 09:00 Urine pH 6.5 (5-7) 08/02/21 09:00 Ur Specific [place] 1.010 (1.005-1.030) 08/02/21 09:00 Urine Protein Neg (Negative) 08/02/21 09:00 Urine Glucose (UA) 4+ (Normal) H 08/02/21 09:00 Urine Ketones Negative (Negative) 08/02/21 09:00 Urine Blood 3+ (Negative) H 08/02/21 09:00 Urine Nitrate Negative (Negative) 08/02/21 09:00 Urine Bilirubin Neg (Negative) 08/02/21 09:00 Urine Urobilinogen Norm mg/dL (Negative) 08/02/21 09:00 Ur Leukocyte Esterase Negative (Negative) 08/02/21 09:00 Urine RBC 5-10 /hpf (0-2) H 08/02/21 09:00 Urine WBC None /hpf (0-5) 08/02/21 09:00 Ur Squamous Epith Cells Rare /hpf (0-5) 08/02/21 09:00 Amorphous Sediment Not Reportable 08/02/21 09:00 Urine Bacteria 1+ /hpf (NONE) H 08/02/21 09:00 A&P Assessment and plan (1) Atrial fibrillation and flutter: Since the patient seems to be not responding to the IV amiodarone and other AV andrew blocking agents, and also because of the hemodynamic compromise, it would be appropriate to go ahead with the electrical cardioversion. This was discussed with the patient and her in detail which is understood well. We will go ahead and arrange for this today. In the meanwhile, he may continue on the IV amiodarone. Female scheduled for a VISHAL cardioversion. Status: Acute (2) Hypotension: Currently she is normotensive. We will be watching her vital signs closely. May continue on the current medication for the time being. Status: Acute (3) Acute on chronic diastolic (congestive) heart failure: Patient may be carefully treated with IV diuretics. Status: Acute (4) Chronic kidney disease, stage 3a: Her kidney function seems to be stable. May continue on the current treatment measures. Status: Acute (5) Neutrophilic leukocytosis: Etiology? 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 Status: Acute Plan Based on the clinical progress, further recommendations will be made. 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
--- NOTE | 2021-08-04 19:13 | PC.NURSE ---
spoke with Dr umanzor about starting PO amioderone Instructions received to start Amioderone 400mg PO TID
[2021-08-04 20:05] LABS: Glucose Point of Care 314 mg/dL (70-110)
[2021-08-04] MEDS: amiodarone 200 mg Tablet 400 MG PO (20:08)
[2021-08-04] MEDS: pramipexole 0.25 mg Tablet 1 MG PO (20:08)
[2021-08-05] VITALS (11 sets, daily range): BP systolic 111–145; BP diastolic 65–104; PULSE 58–89; RESP 16–22; TEMP 36.6–36.9; O2SAT 92–97
[2021-08-05] MEDS: ondansetron 2 mg/ML SDV 2 mL 4 MG IVP (02:34)
[2021-08-05] MEDS: ALPRAZolam 0.5 mg Tablet 0.25 MG PO ×2 (02:41→20:02)
[2021-08-05] MEDS: dexamethasone 4 mg Tablet 2 MG PO (05:06)
[2021-08-05] MEDS: enoxaparin 150 mg/mL Syringe SUBCUT (05:06)
[2021-08-05] MEDS: allopurinol 100 mg Tablet PO (05:06)
[2021-08-05] MEDS: pantoprazole DR 40 mg Tablet PO (05:06)
[2021-08-05] MEDS: levothyroxine 175 mcg Tablet PO (05:06)
[2021-08-05 06:07] LABS: Basophils # 0.1 10^3/uL (0.0-0.1); Basophils % 0.3 %; Eosinophils # 0.1 10^3/uL (0.0-0.8); Eosinophils % 0.6 %; Hematocrit 41.7 % (37.0-47.0); Hemoglobin 12.1 g/dL (11.5-15.3); Lymphocytes # 1.3 10^3/uL (0.8-4.8); Lymphocytes % 8.7 %; Mean Corpuscular Hemoglobin 22.7 pg (28.0-34.0); Mean Corpuscular Volume 78.1 fl (81-99); Mean Platelet Volume 10.7 fL (7.4-10.4); Monocytes % 6.6 %; Nucleated Red Blood Cells % 0 %; Platelet Count 202 10^3/cmm (130-400); Red Blood Count 5.34 10^6/uL (4.1-5.3); Red Cell Distribution Width 19.2 % (12.1-15.1); White Blood Count 15.4 10^3/uL (4.0-10.0)
[2021-08-05 06:25] LABS: Glucose Point of Care 187 mg/dL (70-110)
[2021-08-05 06:33] LABS: Blood Urea Nitrogen 24 mg/dL (8-23); Calcium 9.1 mg/dL (8.5-10.5); Carbon Dioxide 27 mmol/L (22-29); Chloride 96 mmol/L (98-107); Glucose 158 mg/dL (65-115); Magnesium 2.5 mg/dL (1.7-2.3); Osmolality Calculated 285 mOsm/kg (285-295); Sodium 134 mmol/L (136-145)
[2021-08-05 06:34] LABS: Anion Gap 15.2 (5-19); Potassium 4.2 mmol/L (3.5-5.1)
[2021-08-05 06:55] LABS: Slide Review Slide Review Perform
[2021-08-05] MEDS: FUROsemide 10 mg/mL SDV 4mL 40 MG IVP (07:58)
[2021-08-05] MEDS: pregabalin 75 mg Capsule PO ×2 (07:59→17:57)
[2021-08-05] MEDS: insulin lispro 100 unit/1 mL SUBCUT ×4 (07:59→20:02)
[2021-08-05] MEDS: aspirin 81 mg EC Tablet PO (07:59)
[2021-08-05] MEDS: amiodarone 200 mg Tablet 400 MG PO ×2 (07:59→17:57)
[2021-08-05] MEDS: metoprolol tartrate 25 mg Tablet 12.5 MG PO ×2 (07:59→17:57)
--- NOTE | 2021-08-05 10:42 | PM.PN ---
Subjective Subjective: Carolyn reports she was very short of breath this morning. She feels more swollen. No chest discomfort. Is excited that she is in sinus rhythm after cardioversion yesterday. Medications: Reviewed: Yes Vitals/I&O/Wt Last Vital Signs Temp 98.4 F 08/05/21 06:47 Pulse 89 08/05/21 07:31 Resp 16 08/05/21 07:31 BP 111/65 08/05/21 06:47 Pulse Ox 92 08/05/21 07:31 08/04/21 08/05/21 08/05/21 22:59 06:59 14:59 Intake Total 1258 / 1288 360 / 1648 240 / 240 Output Total 675 / 675 700 / 1375 Balance 583 / 613 -340 / 273 240 / 240 Weight last 48 hrs Weight 161.388 kg Weight 160.254 kg Weight 144.696 kg Physical Exam Narrative: General exam is a female, no distress Neck is supple no lymphadenopathy or thyromegaly Cardiovascular irregular, irregular and tachycardic. No murmur auscultated. Abdomen is soft nontender with positive bowel sounds. No obvious organomegaly exams deferred Extremities 1+ edema bilaterally. Skin no rash Urinary Catheter Management: Zurita: Cath Placed During This Visit: no Reason for Continuing Indwelling Catheter: Acute Urinary Retention or Obstruction Data : 08/05/21 04:26 08/05/21 04:26 A&P Assessment and plan (1) Atrial fibrillation: Patient with history of paroxysmal atrial fibrillation. She was taken off beta-isaiah secondary to hypotension. She has continued to take, and be compliant with the amiodarone. Amiodarone drip started in the emergency department. She received some digoxin during this hospital stay. This has not been discontinued. Cardioversion occurred on August 04. She has been in sinus rhythm since that time. At this point continue amiodarone, which she has been converted to 200 mg p.o. daily. Continue metoprolol 12.5 mg twice daily Change Lovenox to Eliquis 2.5 mg twice daily. Lower doses being given, as she had nosebleeds on higher dose. Status: Acute (2) CHF (congestive heart failure): Consistent with acute diastolic heart failure. She was short of breath, and does have some edema this morning. Lasix 40 mg IV given. We will reinitiate her Bumex at 1 mg twice a day. Hopefully home tomorrow if heart failure is compensated. 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 There is no evidence of infection currently. Status: Acute Plan Multiple other medical problems as outlined in past medical history Eliquis will suffice for DVT prophylaxis Full code Discontinue Zurita Attestations Medical Necessity Statement*: Needs continued hospitalization for adjustment of medications for heart failure. Potentially discharge tomorrow. Coding Level of Care Code Acute Final Operations Technician for [facility] Diagnoses Atrial fibrillation I48.91 CHF (congestive heart failure) I50.9 Heart failure type: unspecified Heart failure chronicity: acute Type 2 diabetes mellitus with other diabetic kidney complication E11.29 Central hypothyroidism E03.8
[2021-08-05] MEDS: potassium chloride ER 20 mEq Tablet PO ×2 (12:03→17:57)
[2021-08-05 12:06] LABS: Glucose Point of Care 185 mg/dL (70-110)
--- NOTE | 2021-08-05 12:48 | PC.SOCIAL ---
IMM Update pg 2 of IMM updated and reviewed w/ patient. Copy provided and Copy placed in chart.
--- NOTE | 2021-08-05 16:40 | PC.NURSE ---
spoke with provider about patient concerns of getting a dose of bumex this evening instructions received to give bumex 1 mg PO at 1800 this day
[2021-08-05 17:09] LABS: Glucose Point of Care 269 mg/dL (70-110)
[2021-08-05] MEDS: bumetanide 1 mg Tablet PO (17:57)
--- NOTE | 2021-08-05 18:49 | PC.NURSE ---
patient refused dinner had family member bring outside food
[2021-08-05] MEDS: pramipexole 0.25 mg Tablet 1 MG PO (19:50)
[2021-08-05] MEDS: apixaban 5 mg Tablet 2.5 MG PO (19:50)
[2021-08-05 19:58] LABS: Glucose Point of Care 223 mg/dL (70-110)
[2021-08-06] VITALS (7 sets, daily range): BP systolic 112–143; BP diastolic 62–98; PULSE 57–80; RESP 18–20; TEMP 36.7; O2SAT 92–96
[2021-08-06 01:54] LABS: Anion Gap 10.7 (5-19); Blood Urea Nitrogen 26 mg/dL (8-23); Calcium 9.1 mg/dL (8.5-10.5); Carbon Dioxide 30 mmol/L (22-29); Chloride 98 mmol/L (98-107); Glomerular Filtration Rate 44.5 mL/min (90-130); Glucose 164 mg/dL (65-115); Magnesium 2.7 mg/dL (1.7-2.3); Osmolality Calculated 288 mOsm/kg (285-295); Potassium 3.7 mmol/L (3.5-5.1); Sodium 135 mmol/L (136-145)
--- NOTE | 2021-08-06 04:18 | PC.NURSE ---
Unable to accurately measure urine output throughout shift due to episodes of urinary incontinence.
--- NOTE | 2021-08-06 04:58 | ECG_ITS ---
[facility] Test Date: 2021-08-06 Pat Name: Carolyn Alexander Department: Room: 103 Gender: Female Legal Administrative Assistant: : [id number] Requested By: Oli Olivarez Order Number: [id number] Laina MD: Bahman Rowland M.D. Measurements Intervals [place] Rate: 57 P: 46 [place]: 170 QRS: 2 QRSD: 101 T: 31 QT: 438 QTc: 430 Interpretive Statements SINUS BRADYCARDIA LOW QRS VOLTAGE IN PRECORDIAL LEADS [QRS DEFLECTION < 1.0 mV IN CHEST LEADS] Compared to ECG 08/04/2021 11:37:21 Low QRS voltage now present Atrial flutter no longer present Left anterior fascicular block no longer present ST (T wave) deviation no longer present Electronically Signed On 08-06-2021 20:44:24 CDT by Bahman Rowland M.D. [email or web address]
[2021-08-06] MEDS: allopurinol 100 mg Tablet PO (06:02)
[2021-08-06] MEDS: dexamethasone 4 mg Tablet 2 MG PO (06:02)
[2021-08-06] MEDS: bumetanide 1 mg Tablet PO (06:02)
[2021-08-06] MEDS: levothyroxine 175 mcg Tablet PO (06:02)
[2021-08-06] MEDS: pantoprazole DR 40 mg Tablet PO (06:02)
[2021-08-06 06:15] LABS: Glucose Point of Care 161 mg/dL (70-110)
--- NOTE | 2021-08-06 07:13 | PM.DCS ---
Discharge Providers Date of Admission: 08/02/21 11:28 Date of Discharge: August 06, 2021 Attending Provider at Admission: Oli Diop MD Attending Provider at Discharge: Eddie Glover MD Consults: Cardiology Primary Care Provider: Crys Glover NP Diagnoses at Discharge Discharge Diagnosis (1) Atrial fibrillation: Status: Acute (2) CHF (congestive heart failure): Status: Acute Qualifiers: Heart failure type: unspecified Heart failure chronicity: acute Qualified Code(s): I50.9 - Heart failure, unspecified (3) Type 2 diabetes mellitus with other diabetic kidney complication: Status: Acute (4) Central hypothyroidism: Status: Acute Reason for Visit Reason for Visit: rapid HR Hospital Course Hospital Course Carolyn Alexander is a 71-year-old female with a past with a past medical history significant for chronic congestive heart failure, atrial fibrillation, hypertension, hypopituitarism, obstructive sleep apnea, and pulmonary hypertension who presented with palpitation, left sided chest and neck pain, found to have atrial fibrillation and acute on chronic decompensated diastolic heart failure with preserved ejection fraction. She was initially treated with esmolol in the emergency department which was discontinued due to hypotension. She was transitioned to IV amiodarone. Cardiology was consulted and followed. She received IV diuresis. She underwent transesophageal echocardiogram which did not show clot. She underwent electrical cardioversion with return to sinus rhythm on 08/04. Her symptomatology improved. She was discharged home in stable condition. She is to follow-up with her primary care provider and strategy planning consultant for further management. Physical Exam Narrative: General: Patient is awake and alert. Pleasant. Head: Normocephalic. Atraumatic. EOM intact. Neck: No JVD. Cardiovascular: RRR. No gallops. No murmurs. 2+ pitting edema in bilateral lower extremities. Lungs: Breath sounds mildly diminished at bilateral bases, no use of accessory muscles, no crackles or wheezes. Room air. Skin: No jaundice. No rashes. Abdomen: Normal bowel sounds, abdomen soft. Extremeties: No cyanosis or clubbing. Musculoskeletal: No swollen or erythematous joints. Neurological: Moves all 4 extremities. No myoclonus. Urinary Catheter Management: [place]: Cath Placed During This Visit: yes, but has since been removed by the nurse Reason for Continuing Indwelling Catheter: Acute Urinary Retention or Obstruction Date Urinary Catheter Removed: 08/05/21 Time Urinary Catheter Discontinued: 12:45 Discharge Data Studies Completed and Pending Completed Studies During Hospitalization Category Date Time Status XR chest 1V portable [id number] Stat Exams 08/02/21 08:02 Completed US VISHAL [CV. echo transesophageal 01314] Routine Ultrasound 08/04/21 13:00 Completed Radiology Impressions Chest X-Ray 08/02/21 08:02 IMPRESSION: Stable chest. No acute interval change since 05/05/2021. Laboratory Results WBC 15.4 10^3/uL (4.0-10.0) H 08/05/21 04:26 RBC 5.34 10^6/uL (4.1-5.3) H 08/05/21 04:26 Hgb 12.1 g/dL (11.5-15.3) 08/05/21 04:26 Hct 41.7 % (37.0-47.0) 08/05/21 04:26 MCV 78.1 fl (81-99) L 08/05/21 04:26 MCH 22.7 pg (28.0-34.0) L 08/05/21 04:26 MCHC 29.0 g/dL (30.0-36.0) L 08/05/21 04:26 RDW 19.2 % (12.1-15.1) H 08/05/21 04:26 Plt Count 202 10^3/cmm (130-400) 08/05/21 04:26 MPV 10.7 fL (7.4-10.4) H 08/05/21 04:26 Neut % (Auto) 83.0 % 08/05/21 04:26 Lymph % (Auto) 8.7 % 08/05/21 04:26 [place] % (Auto) 6.6 % 08/05/21 04:26 Eos % (Auto) 0.6 % 08/05/21 04:26 Baso % (Auto) 0.3 % 08/05/21 04:26 Neut # (Auto) 12.80 10^3/uL (1.8-7.7) H 08/05/21 04:26 Lymph # (Auto) 1.3 10^3/uL (0.8-4.8) 08/05/21 04:26 [place] # (Auto) 1.0 10^3/uL (0.2-0.9) H 08/05/21 04:26 Eos # (Auto) 0.1 10^3/uL (0.0-0.8) 08/05/21 04:26 Baso # (Auto) 0.1 10^3/uL (0.0-0.1) 08/05/21 04:26 Nucleated RBC % (auto) 0 % 08/05/21 04:26 Nucleated RBCs # 0.0 /100WBC 08/05/21 04:26 Sodium 135 mmol/L (136-145) L 08/06/21 01:13 Potassium 3.7 mmol/L (3.5-5.1) 08/06/21 01:13 Chloride 98 mmol/L (98-107) 08/06/21 01:13 Carbon Dioxide 30 mmol/L (22-29) H 08/06/21 01:13 Anion Gap 10.7 (5-19) 08/06/21 01:13 BUN 26 mg/dL (8-23) H 08/06/21 01:13 Creatinine 1.2 mg/dL (0.5-0.9) H 08/06/21 01:13 GFR Calculation 44.5 mL/min (90-130) L 08/06/21 01:13 Glucose 164 mg/dL (65-115) H 08/06/21 01:13 POC Glucose 161 mg/dL (70-110) H 08/06/21 06:06 Calculated Osmolality 288 mOsm/kg (285-295) 08/06/21 01:13 Calcium 9.1 mg/dL (8.5-10.5) 08/06/21 01:13 Magnesium 2.7 mg/dL (1.7-2.3) H 08/06/21 01:13 Total Bilirubin 0.3 mg/dL (0.15-1.2) 08/03/21 03:25 AST 13 U/L (0-32) 08/03/21 03:25 ALT 16 U/L (0-33) 08/03/21 03:25 Alkaline Phosphatase 109 IU/L (35-105) H 08/03/21 03:25 Creatine Kinase 33 U/L (26-192) 08/02/21 09:00 Troponin T Baseline 15 ng/L (0-10) H 08/02/21 09:00 Troponin T 120 Minute 15.12 ng/L (0-10) H 08/02/21 10:39 Delta Troponin T 0.12 ABS# (0-10) 08/02/21 10:39 Troponin T Hi Sens 6Hr 16.96 ng/L (0-10) H 08/02/21 14:18 Troponin T Hi Sens 6Hr Delta 1.96 ng/L (0-12) 08/02/21 14:18 NT-Pro-B Natriuret Pep 3608 pg/mL (0-125) H 08/02/21 09:00 Total Protein 5.5 g/dL (6.6-8.7) L 08/03/21 03:25 Albumin 3.3 g/dL (3.5-5.2) L 08/03/21 03:25 Globulin 2.2 g/dL (1.3-4.6) 08/03/21 03:25 Urine Color Straw (Yellow) 08/02/21 09:00 Urine Appearance Clear (CLEAR) 08/02/21 09:00 Urine pH 6.5 (5-7) 08/02/21 09:00 Ur Specific [place] 1.010 (1.005-1.030) 08/02/21 09:00 Urine Protein Neg (Negative) 08/02/21 09:00 Urine Glucose (UA) 4+ (Normal) H 08/02/21 09:00 Urine Ketones Negative (Negative) 08/02/21 09:00 Urine Blood 3+ (Negative) H 08/02/21 09:00 Urine Nitrate Negative (Negative) 08/02/21 09:00 Urine Bilirubin Neg (Negative) 08/02/21 09:00 Urine Urobilinogen Norm mg/dL (Negative) 08/02/21 09:00 Ur Leukocyte Esterase Negative (Negative) 08/02/21 09:00 Urine RBC 5-10 /hpf (0-2) H 08/02/21 09:00 Urine WBC None /hpf (0-5) 08/02/21 09:00 Ur Squamous Epith Cells Rare /hpf (0-5) 08/02/21 09:00 Amorphous Sediment Not Reportable 08/02/21 09:00 Urine Bacteria 1+ /hpf (NONE) H 08/02/21 09:00 Procedures Performed Electrical cardioversion Vitals Last Vital Signs Temp 97.9 F 08/05/21 19:46 Pulse 57 L 08/06/21 04:57 Resp 18 08/06/21 04:19 BP 143/77 08/06/21 04:00 Pulse Ox 96 08/06/21 04:19 Discharge Plan Discharge Patient Disposition: Home Condition: Stable Prescriptions: New metoprolol tartrate 25 mg Tablet 12.5 mg PO BID Qty: 30 0RF Eliquis 5 mg Tablet 2.5 mg PO BID@0900,2100 Qty: 60 0RF bumetanide 1 mg tablet 1 mg PO BID Qty: 60 0RF Continued epinephrine [EpiPen 2-Nabeel] 0.3 mg/0.3 mL auto-injector 0.3 mg IM Q10M PRN (Reason: anaphylaxis) Qty: 2 3RF Rx Instructions: for 3 doses pregabalin [Lyrica] 75 mg capsule 75 mg PO BID 30 Days Qty: 60 0RF ondansetron 4 mg tablet,disintegrating 4 mg PO Q6H PRN (Reason: nausea and vomiting) Qty: 90 0RF lidocaine 5 % adhesive patch,medicated 1 patch topical DAILY 30 Days Qty: 30 11RF Rx Instructions: leave on most painful area for up to 12 hrs then off for 12 hours (DME) Pharmacist Choice Strip See Rx Instructions .Route Qty: 50 2RF Rx Instructions: AC and HS (DME) blood-glucose meter,continuous Misc See Rx Instructions .Route Qty: 1 0RF Rx Instructions: As directed one meter with all necessary supplies (DME) lancets [Easy Touch Lancets] 30 gauge misc See Rx Instructions .Route Qty: 100 1RF Rx Instructions: AC and HS alprazolam 0.25 mg tablet 0.25 mg PO TID PRN (Reason: anxiety) 30 Days Qty: 90 0RF (DME) Dexcom G6 Sensor Device See Rx Instructions .Route Qty: 3 3RF Rx Instructions: Change every 10 days. (DME) Dexcom G6 Systems Integration Analyst Misc See Rx Instructions .Route Qty: 1 0RF Rx Instructions: Check BS 4-6 times a day. (DME) Dexcom G6 Transmitter Device See Rx Instructions .Route Qty: 1 3RF Rx Instructions: Change every 90 days. levothyroxine 175 mcg tablet 175 mcg PO QAM 0RF (DME) diabetic supplies, miscellan. Misc See Rx Instructions .Route Qty: 1 0RF Rx Instructions: As directed polyethylene glycol 3350 [Miralax] 17 gram/dose Powder 17 g PO DAILY PRN (Reason: Constipation) 0RF amiodarone 200 mg tablet 200 mg PO QAM 0RF potassium chloride 10 mEq tablet extended release 20 meq PO BID 0RF aspirin 81 mg Tablet,Delayed Release (Dr/Ec) 81 mg PO DAILY 0RF dexamethasone 1 mg tablet 1.5 mg PO QAM 0RF albuterol sulfate 90 mcg/actuation HFA aerosol inhaler 2 puff INHALATION QID PRN (Reason: Shortness Of Breath) 0RF Symbicort 160-4.5 mcg/actuation HFA aerosol inhaler 2 puff INHALATION BID PRN (Reason: unknown) 0RF Zyrtec 10 mg tablet 10 mg PO DAILY 0RF allopurinol 100 mg tablet 100 mg PO QAM 0RF Mirapex 0.5 mg tablet 1 mg PO BEDTIME 0RF Protonix 40 mg tablet,delayed release (DR/EC) 40 mg PO QAM 0RF Jardiance 10 mg tablet 10 mg PO QAM 0RF Pataday Once Daily Relief 0.7 % drops 1 drp ophthalmic (eye) QAM PRN (Reason: Allergy Symptoms) 0RF Ozempic 0.25 mg or 0.5 mg(2 mg/1.5 mL) pen injector 1 mg SUBCUT Q7D 0RF Rx Instructions: on monday Discontinued ciprofloxacin HCl [Cipro] 500 mg tablet 500 mg PO BID 10 Days Qty: 20 0RF Entresto 24-26 mg tablet 1 tab PO BID 0RF triamterene-hydrochlorothiazid 37.5-25 mg tablet 1 tab PO QAM 0RF bumetanide 1 mg tablet 1 - 2 mg PO DAILY 0RF Discharge Orders: Discharge Order (Routine); Ordered 08/06/21 Ordered By: Eddie Glover Referrals: Crys Glover NP [Primary Care Provider] - 1 week Chris Sellers MD [Physician] - 1 week Discharge Diet: Cardiac Discharge Activity: Increase activity as tolerated Patient Instructions: Opioid Safety Discharge Attestations Time Spent in Discharge Care*: greater than 30 min Quality Metrics Clinical Quality Measures [ No reported AMI, CVA or VTE this stay] Coding Level of Care Code Acute Chg FW DC note Diagnoses Atrial fibrillation I48.91 CHF (congestive heart failure) I50.9 Heart failure type: unspecified Heart failure chronicity: acute Type 2 diabetes mellitus with other diabetic kidney complication E11.29 Central hypothyroidism E03.8
[2021-08-06] MEDS: potassium chloride ER 20 mEq Tablet PO (08:09)
[2021-08-06] MEDS: amiodarone 200 mg Tablet 400 MG PO (08:09)
[2021-08-06] MEDS: aspirin 81 mg EC Tablet PO (08:09)
[2021-08-06] MEDS: apixaban 5 mg Tablet 2.5 MG PO (08:09)
[2021-08-06] MEDS: metoprolol tartrate 25 mg Tablet 12.5 MG PO (08:09)
[2021-08-06] MEDS: pregabalin 75 mg Capsule PO (08:09)
[2021-08-06] MEDS: insulin lispro 100 unit/1 mL SUBCUT (08:10)
--- NOTE | 2021-08-06 09:10 | P.PN_ITS ---
Subjective Subjective: The patient is feeling okay with no chest pain or chest tightness. Her shortness of breath is significantly improved. She is staying in the normal sinus rhythm/sinus bradycardia. The blood pressure seems to be in the normal range. No fever or chills. No cough. No other specific complaints. Medications: Medication Review Details: Current Medications Albuterol Sulfate (Albuterol 8 Gm Mdi) 2 puff INHALATION QID PRN PRN Reason: Shortness Of Breath Allopurinol (Allopurinol 100 Mg Tablet) 100 mg PO QAM [facility] Last Admin: 08/06/21 06:02 Dose: 100 mg Documented by: Alprazolam (Alprazolam 0.5 Mg Tablet) 0.25 mg PO TID PRN PRN Reason: anxiety Last Admin: 08/05/21 20:02 Dose: 0.25 mg Documented by: Amiodarone HCl (Amiodarone 200 Mg Tablet) 400 mg PO BID [facility] Last Admin: 08/06/21 08:09 Dose: 400 mg Documented by: Apixaban (Apixaban 5 Mg Tablet) 2.5 mg PO BID@0900,2100 [facility] Last Admin: 08/06/21 08:09 Dose: 2.5 mg Documented by: Aspirin (Aspirin 81 Mg Ec Tablet) 81 mg PO DAILY [facility] Last Admin: 08/06/21 08:09 Dose: 81 mg Documented by: Budesonide (Budesonide 0.5 Mg/2 Ml Neb) 0.5 mg INHALATION BID.RESPIRATORY [facility] Last Admin: 08/06/21 08:27 Dose: Not Given Documented by: Bumetanide (Bumetanide 1 Mg Tablet) 1 mg PO BID@0700,1600 [facility] Last Admin: 08/06/21 06:02 Dose: 1 mg Documented by: Denture Adhesive (Fixodent 39 Gm Tube) 1 applic DENTAL PRN PRN PRN Reason: denture adhesive Last Admin: 08/03/21 16:13 Dose: 1 applic Documented by: Dexamethasone (Dexamethasone 4 Mg Tablet) 2 mg PO QAM [facility] Last Admin: 08/06/21 06:02 Dose: 2 mg Documented by: Dextrose (Dextrose 50% Syringe 50 Ml) 25 ml IVP ONCE PRN; Protocol PRN Reason: hypoglycemia protocol Dextrose (Dextrose 50% Syringe 50 Ml) 50 ml IVP PRN PRN; Protocol PRN Reason: hypoglycemia protocol Glucagon (Glucagon 1 Mg/Ml Inj 1 Ml) 1 mg IM ONCE PRN; Protocol PRN Reason: Adult Acute Hypoglycemia Prot. Dextrose (D5w) 500 mls @ 100 mls/hr IV ONCE PRN; Protocol PRN Reason: Adult Acute Hypoglycemia Prot Insulin Human Lispro (Insulin Lispro 100 Unit/1 Ml) 0 unit SUBCUT WM&BEDTIME [facility]; Protocol Last Admin: 08/06/21 08:10 Dose: 2 unit Documented by: Levothyroxine Sodium (Levothyroxine 175 Mcg Tablet) 175 mcg PO QAM [facility] Last Admin: 08/06/21 06:02 Dose: 175 mcg Documented by: Metoprolol Tartrate (Metoprolol Tartrate 25 Mg Tablet) 12.5 mg PO BID [facility] Last Admin: 08/06/21 08:09 Dose: 12.5 mg Documented by: Ondansetron HCl (Ondansetron 2 Mg/Ml Sdv 2 Ml) 4 mg IVP Q6H PRN PRN Reason: NAUSEA AND VOMITING Last Admin: 08/05/21 02:34 Dose: 4 mg Documented by: Pantoprazole Sodium (Pantoprazole Dr 40 Mg Tablet) 40 mg PO QAM [facility] Last Admin: 08/06/21 06:02 Dose: 40 mg Documented by: Potassium Chloride (Potassium Chloride Er 20 Meq Tablet) 20 meq PO BID [facility] Last Admin: 08/06/21 08:09 Dose: 20 meq Documented by: Pramipexole Dihydrochloride (Pramipexole 0.25 Mg Tablet) 1 mg PO BEDTIME [facility] Last Admin: 08/05/21 19:50 Dose: 1 mg Documented by: Pregabalin (Pregabalin 75 Mg Capsule) 75 mg PO BID [facility] Last Admin: 08/06/21 08:09 Dose: 75 mg Documented by: Vitals/I&O/Wt Last Vital Signs Temp 98.0 F 08/06/21 08:18 Pulse 80 08/06/21 08:26 Resp 18 08/06/21 08:26 BP 123/98 08/06/21 08:18 Pulse Ox 95 08/06/21 08:26 08/05/21 08/06/21 08/06/21 22:59 06:59 14:59 Intake Total 118 / 118 Output Total 600 / 2650 Balance -600 / -2050 118 / 118 Weight last 48 hrs Weight 355 lb 12.8 oz Weight 353 lb 4.8 oz Physical Exam Narrative: GENERAL: The patient is alert and oriented times three. Not in any acute distress. Morbidly obese HEENT: No significant pallor, icterus or lymphadenopathy.Oral cavity: There are no mucous membrane lesions. NECK: Trachea appears to be central. No masses noted. No JVD or thyromegaly appreciated. RESPIRATORY: Chest is symmetrical. No intercostals muscle retraction or any accessory muscle activation. There is no chest wall tenderness. Breath sounds are heard bilaterally. No rales or rhonchi heard. No evidence of any consolidation. BREASTS: Deferred. HEART: The heart sounds are normal. No S3 or S4. No significant murmurs. No pericardial rub ABDOMEN: No vessel pulsations or distention. No tenderness. No organomegaly appreciated. Bowel sounds are normally heard. : Deferred. RECTAL: Deferred. LYMPHATIC: No lymphadenopathy noted in the neck. EXTREMITIES: 1-2+ edema both lower extremities. No cyanosis. MUSCULOSKELETAL: No acute joint deformities or swelling SKIN: There are no significant rashes or ecchymosis NEUROPSYCHIATRIC: The patient is alert and oriented x3. Appears to be in a good mood. No tremors or rigidity noted. Urinary Catheter Management: [place]: Cath Placed During This Visit: yes, but has since been removed by the nurse Reason for Continuing Indwelling Catheter: Acute Urinary Retention or Obstruction Date Urinary Catheter Removed: 08/05/21 Time Urinary Catheter Discontinued: 12:45 Data : 08/05/21 04:26 08/06/21 01:13 Other Labs: Laboratory Last Values WBC 15.4 10^3/uL (4.0-10.0) H 08/05/21 04:26 RBC 5.34 10^6/uL (4.1-5.3) H 08/05/21 04:26 Hgb 12.1 g/dL (11.5-15.3) 08/05/21 04:26 Hct 41.7 % (37.0-47.0) 08/05/21 04:26 MCV 78.1 fl (81-99) L 08/05/21 04:26 MCH 22.7 pg (28.0-34.0) L 08/05/21 04:26 MCHC 29.0 g/dL (30.0-36.0) L 08/05/21 04:26 RDW 19.2 % (12.1-15.1) H 08/05/21 04:26 Plt Count 202 10^3/cmm (130-400) 08/05/21 04:26 MPV 10.7 fL (7.4-10.4) H 08/05/21 04:26 Neut % (Auto) 83.0 % 08/05/21 04:26 Lymph % (Auto) 8.7 % 08/05/21 04:26 [place] % (Auto) 6.6 % 08/05/21 04:26 Eos % (Auto) 0.6 % 08/05/21 04:26 Baso % (Auto) 0.3 % 08/05/21 04:26 Neut # (Auto) 12.80 10^3/uL (1.8-7.7) H 08/05/21 04:26 Lymph # (Auto) 1.3 10^3/uL (0.8-4.8) 08/05/21 04:26 [place] # (Auto) 1.0 10^3/uL (0.2-0.9) H 08/05/21 04:26 Eos # (Auto) 0.1 10^3/uL (0.0-0.8) 08/05/21 04:26 Baso # (Auto) 0.1 10^3/uL (0.0-0.1) 08/05/21 04:26 Nucleated RBC % (auto) 0 % 08/05/21 04:26 Nucleated RBCs # 0.0 /100WBC 08/05/21 04:26 Sodium 135 mmol/L (136-145) L 08/06/21 01:13 Potassium 3.7 mmol/L (3.5-5.1) 08/06/21 01:13 Chloride 98 mmol/L (98-107) 08/06/21 01:13 Carbon Dioxide 30 mmol/L (22-29) H 08/06/21 01:13 Anion Gap 10.7 (5-19) 08/06/21 01:13 BUN 26 mg/dL (8-23) H 08/06/21 01:13 Creatinine 1.2 mg/dL (0.5-0.9) H 08/06/21 01:13 GFR Calculation 44.5 mL/min (90-130) L 08/06/21 01:13 Glucose 164 mg/dL (65-115) H 08/06/21 01:13 POC Glucose 161 mg/dL (70-110) H 08/06/21 06:06 Calculated Osmolality 288 mOsm/kg (285-295) 08/06/21 01:13 Calcium 9.1 mg/dL (8.5-10.5) 08/06/21 01:13 Magnesium 2.7 mg/dL (1.7-2.3) H 08/06/21 01:13 Total Bilirubin 0.3 mg/dL (0.15-1.2) 08/03/21 03:25 AST 13 U/L (0-32) 08/03/21 03:25 ALT 16 U/L (0-33) 08/03/21 03:25 Alkaline Phosphatase 109 IU/L (35-105) H 08/03/21 03:25 Creatine Kinase 33 U/L (26-192) 08/02/21 09:00 Troponin T Baseline 15 ng/L (0-10) H 08/02/21 09:00 Troponin T 120 Minute 15.12 ng/L (0-10) H 08/02/21 10:39 Delta Troponin T 0.12 ABS# (0-10) 08/02/21 10:39 Troponin T Hi Sens 6Hr 16.96 ng/L (0-10) H 08/02/21 14:18 Troponin T Hi Sens 6Hr Delta 1.96 ng/L (0-12) 08/02/21 14:18 NT-Pro-B Natriuret Pep 3608 pg/mL (0-125) H 08/02/21 09:00 Total Protein 5.5 g/dL (6.6-8.7) L 08/03/21 03:25 Albumin 3.3 g/dL (3.5-5.2) L 08/03/21 03:25 Globulin 2.2 g/dL (1.3-4.6) 08/03/21 03:25 Urine Color Straw (Yellow) 08/02/21 09:00 Urine Appearance Clear (CLEAR) 08/02/21 09:00 Urine pH 6.5 (5-7) 08/02/21 09:00 Ur Specific [place] 1.010 (1.005-1.030) 08/02/21 09:00 Urine Protein Neg (Negative) 08/02/21 09:00 Urine Glucose (UA) 4+ (Normal) H 08/02/21 09:00 Urine Ketones Negative (Negative) 08/02/21 09:00 Urine Blood 3+ (Negative) H 08/02/21 09:00 Urine Nitrate Negative (Negative) 08/02/21 09:00 Urine Bilirubin Neg (Negative) 08/02/21 09:00 Urine Urobilinogen Norm mg/dL (Negative) 08/02/21 09:00 Ur Leukocyte Esterase Negative (Negative) 08/02/21 09:00 Urine RBC 5-10 /hpf (0-2) H 08/02/21 09:00 Urine WBC None /hpf (0-5) 08/02/21 09:00 Ur Squamous Epith Cells Rare /hpf (0-5) 08/02/21 09:00 Amorphous Sediment Not Reportable 08/02/21 09:00 Urine Bacteria 1+ /hpf (NONE) H 08/02/21 09:00 A&P Assessment and plan (1) Atrial fibrillation and flutter: Patient status post electrical cardioversion. Currently staying in the sinus rhythm. May continue with amiodarone 200 mg p.o. daily. Also will keep her on a small dose of metoprolol 12.5 mg p.o. twice daily. Status: Acute (2) Hypotension: Currently she is normotensive. We will be watching her vital signs closely. May continue on the current medication for the time being. Status: Acute (3) Acute on chronic diastolic (congestive) heart failure: She may be kept on Bumex 1 to 2 mg p.o. twice daily. I also may add spironolactone 25 mg p.o. daily. The potassium dose needs to be adjusted based on the Bumex. As of now she is taking the potassium 20 mEq p.o. twice daily. This may be increased to 40 mg p.o. twice daily, if she double up on the Bumex. Status: Acute (4) Chronic kidney disease, stage 3a: Her kidney function seems to be stable. May continue on the current treatment m easures. The electrolytes need to be closely monitored. 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 Cardiac medications as mentioned above. She has some blurring of vision lately. This could be from the uncontrolled blood sugar. But since she is taking amiodarone, she is advised to have an evaluation by the credit or loans officer. Attestations Medical Necessity Statement*: Possible discharge home today. I will be seeing her in the clinic in 10 days. 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
--- NOTE | 2021-08-06 10:02 | PC.CHAP ---
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 consulting services manager visit [] Patient/Family/Request visit [] Outpatient visit [] Follow-up visit [] Physician referral [] Code/Alert [x] Routine visit [] Staff referral [] Actively dying [] Patient sleeping [] Family support [] [] Out of room [] Palliative care [] [] Receiving care in room [] Pre-surgical visit [] Trauma [] Long length of stay [] ICU visit [] Other: Relational/Emotional Strength [] Patient feels connected with others/family/visitors/staff [] Distress [] Loneliness/isolation [] Abandonment Spirituality of Patient [] Person of [place] [] Attends Buddhism of their [place] [] Believes in Prayer [] Reads Bible or Jain materials [] There are Spiritual issues to be addressed Power Plant Assistant Interventions [x] Prayer [x] Active listening [x] Non-anxious presence [x] Spiritual/emotional support [] Crisis/trauma care [] Spiritual counseling [] Bereavement support [] Provided bereavement packet [] Provided Bible/devotional materials [] Provided toy/stuffed animal, coloring book to patient or family member [] Provided Communion [] Anointing/[place] [] Salvation [x] Completed spiritual assessment [] Other: Impact on Illness or Injury [] Angry [] Fearful [] Anxious [] Often cries [] Exhaustion [] Unable to work [] Unable to attend spiritism [] Unable to walk/stand [] Unable to read [] Unable to drive [] Unable to eat/drink [] Unable to sleep [] Unable to be with family [] Patient intubated [] Other: Summary preparing to go home.... amazing lady Time spent with patient 15 min
--- NOTE | 2021-08-06 10:37 | PC.NURSE ---
Discharge Note Patient discharged to home via private vehicle accompanied by . Discharge instructions reviewed with patient and/or access service representative. Mobile pharmacy medications and/or prescriptions provided. Educated pt on new meds doses, timing and instructions as discussed w/ her pleater hand. Belongings/home medications returned.
== END 2021-08-06 10:37 | disposition home or self-care (01) | DRG 308 ==
LOC: ER 08:47 → ICU 11:40 → CSU 08-04 17:39
PROVIDERS: Admitting Provider Internal Medicine; Emergency Provider Family Medicine; PCP Nurse Practitioner Family; Visit Provider Internal Medicine
DX: I48.0 Paroxysmal atrial fibrillation (principal); I50.33 Acute on chronic diastolic (congestive) heart failure; I13.0 Hypertensive heart and chronic kidney disease with heart failure and stage 1 through stage 4 chronic kidney disease, or unspecified chronic kidney disease; Z68.43 Body mass index [BMI] 50.0-59.9, adult; E23.0 Hypopituitarism; E27.49 Other adrenocortical insufficiency; N18.31 Chronic kidney disease, stage 3a; E11.22 Type 2 diabetes mellitus with diabetic chronic kidney disease; E03.9 Hypothyroidism, unspecified; Z86.16 Personal history of COVID-19; E66.01 Morbid (severe) obesity due to excess calories; G47.33 Obstructive sleep apnea (adult) (pediatric); I27.20 Pulmonary hypertension, unspecified; E11.51 Type 2 diabetes mellitus with diabetic peripheral angiopathy without gangrene; Z87.440 Personal history of urinary (tract) infections; Z79.82 Long term (current) use of aspirin
CPT/HCPCS: 36415; 36416; 71045; 80048; 80053; 81001; 82550; 82962; 83735; 83880; 84484; 85025; 93005; 93312; 93320; 93325; 96365; 96366; 96367; 96372; 99291; J0282; J1160; J1650; J1815; J1940; J2405; J3490; J7060; J7626; J8540

== ENCOUNTER 2021-08-17 14:00 | Outpatient (CLI) | payer MEDICARE, OTHER, SELFPAY | END 2021-08-17 14:01 | disposition home or self-care (01) | LOC: SLEEP 08-18 16:38 | PROVIDERS: PCP Nurse Practitioner Family; Visit Provider Nurse Practitioner Family | DX: G47.33 Obstructive sleep apnea (adult) (pediatric) (principal) | CPT/HCPCS: G0399 ==

== ENCOUNTER → 2021-12-21 13:37 | Outpatient (BNVA) | payer MEDICARE, OTHER, SELFPAY | PROVIDERS: PCP Nurse Practitioner Family; Visit Provider Nurse Practitioner Family | DX: I87.339 Chronic venous hypertension (idiopathic) with ulcer and inflammation of unspecified lower extremity (principal); L97.909 Non-pressure chronic ulcer of unspecified part of unspecified lower leg with unspecified severity; L98.9 Disorder of the skin and subcutaneous tissue, unspecified; L03.90 Cellulitis, unspecified; R53.1 Weakness; I48.91 Unspecified atrial fibrillation; I10 Essential (primary) hypertension; K21.9 Gastro-esophageal reflux disease without esophagitis; I50.9 Heart failure, unspecified; E87.6 Hypokalemia; E26.9 Hyperaldosteronism, unspecified; Z09 Encounter for follow-up examination after completed treatment for conditions other than malignant neoplasm | CPT/HCPCS: 80053 ==

== ENCOUNTER → 2021-12-24 11:30 | Outpatient (BNVA) | payer MEDICARE, OTHER, SELFPAY | PROVIDERS: PCP Nurse Practitioner Family; Visit Provider Nurse Practitioner Family | DX: E26.9 Hyperaldosteronism, unspecified (principal); E87.6 Hypokalemia; I50.9 Heart failure, unspecified; I10 Essential (primary) hypertension | CPT/HCPCS: 80048; 82088; 83880 ==

== ENCOUNTER 2021-12-28 06:00 | Outpatient (RCR) | payer MEDICARE, OTHER, SELFPAY | END 2022-01-24 23:59 | disposition home or self-care (01) | LOC: TPT 06:00 | PROVIDERS: PCP Nurse Practitioner Family; Visit Provider Hospitalist | DX: R53.1 Weakness (principal) | CPT/HCPCS: 97163 ==

== ENCOUNTER 2021-12-28 17:31 | Inpatient (IN) | payer MEDICARE, OTHER, SELFPAY ==
[2021-12-28] VITALS (9 sets, daily range): BP systolic 90–116; BP diastolic 57–72; PULSE 64–89; RESP 14–22; TEMP 36.5–36.6; O2SAT 91–97; BMI 55.2; BMI 55.7
--- NOTE | 2021-12-28 17:36 | ED_ITS ---
HPI - General Adult General: Chief complaint: General Medical Stated complaint: LOW BP/ N/V Time Seen by Provider: 12/28/21 17:35 History of Present Illness: Patient is an 71-year-old female with history of anasarca, CKD who presents the emergency room with concerns of low blood press ure, lightheadedness and near syncope earlier today. Patient tells me that she is currently at an assisted living facility. Earlier today, patient took her blood pressure noticed that on her wrist it was 50/30. Patient also had lightheadedness but denies any LOC today. Patient has any fall or injuries. Patient reports at baseline she is on 2 mg Bumex twice a day. Patient reports she seems still able to make urine. Patient denies any worsening shortness of breath, cough, fever/chills, chest pain, abdominal pain, nausea/vomiting. Patient reports mild lower abdominal cramps. Patient denies any symptoms of dysuria, polyuria or hematuria. Patient has no new vaginal discharge or vaginal bleeding. Denies any melena or hematochezia. Onset: earlier today Duration:ongoing Location:home Severity:moderate Associated symptoms: Deny chest pain, dyspnea, nausea, rash, palpitations or vomiting Review of Systems Const: Denies: fever(s) or chills Eyes: Denies: change in vision ENMT: Denies: mouth pain Card: Denies: chest pain or palpitations Resp: Denies: dyspnea or non-productive cough GI: Reports: other (+Abdominal distension); Denies: abdominal pain, nausea, vomiting or diarrhea : Denies: dysuria Musc: Reports: other (+leg swellin g b/l); Denies: extremity pain Skin/Breast: Denies: rash or new lesions Neuro: Denies: weakness in extremities Psych: Reports: other (Normal mood) Charli/Lymph: Denies: easy bruising PFS ED PFSH: Medical History Acute kidney injury superimposed on chronic kidney disease Adrenal insufficiency Anasarca Anasarca Anasarca Anemia Benign essential hypertension with target blood pressure below 140/90 Central hypothyroidism CHF (congestive heart failure) CHF exacerbation Chronic back pain Follows at pain clinic for periodic injections COVID-19 (~09/2020) Edema Facet arthritis, degenerative, lumbar spine Fatigue Gastroenteritis History of anaphylaxis History of atrial fibrillation Intermittent, has not required long-term anticoagulation or focused treatment History of COVID-19 HTN (hypertension) Hyperaldosteronism 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 Increased nausea and vomiting Lumbar spondylolysis OAB (overactive bladder) Obesity Obesity, morbid, BMI 50 or higher Obstructive sleep apnea KP (obstructive sleep apnea) Paroxysmal atrial fibrillation Pituitary macroadenoma with extrasellar extension Prediabetes Pulmonary hypertension PVD (peripheral vascular disease) Steroid dependence Tachycardia Unsteady gait UTI (urinary tract infection) Venous (peripheral) insufficiency Volume overload Surgical History H/O shoulder surgery History of hysterectomy History of pituitary surgery S/P insertion of spinal cord stimulator Family History Father Cancer pancreatic cancer Sister No problems noted. 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 Physical Exam Const: COMMON NORMALS: alert HENMT: COMMON NORMALS: atraumatic HEAD & SCALP: atraumatic MOUTH: moist mucous membranes not abnormal Eye: COMMON NORMALS: EOMs intact bilaterally and conjunctivae normal CONJUNCTIVA: Yes conjunctivae normal Neck/C-Spine: COMMON NORMALS: full ROM and supple Resp: COMMON NORMALS: normal respiratory effort and clear to auscultation bilaterally AUSCULTATION: clear to auscultation bilaterally Cardio: COMMON NORMALS: regular rate RATE: regular rate GI: COMMON NORMALS: Soft to palpation and non-tender PALPATION: Yes Soft to palpation OTHER: +moderate abdominal distension. No focal TTP. NO guarding rebound, guarding, rigidity. No CVA tenderness to percussion. Neg Worley/Neg McBurney's point tenderness, no suprabupic tenderness to palpation. Extremity: COMMON NORMALS: full ROM OTHER: 2+ edema b/l in the lower extremities Neuro: SENSORIUM/ORIENTATION: Yes alert MOTOR EXAM: No Abnormal motor strength present and Other motor observations present (no focal motor deficits) Psych: COMMON NORMALS: speech normal SPEECH: Yes normal speech MOOD & AFFECT: Yes euthymic mood Course Vital Signs: Vital signs: Vital Signs Temperature 97.9 F 12/28/21 17:31 Pulse Rate 75 12/28/21 19:06 Respiratory Rate 18 12/28/21 19:06 Blood Pressure 99/62 12/28/21 19:06 Pulse Oximetry 93 12/28/21 19:06 Oxygen Delivery Me thod 12/28/21 17:31 [facility] - General Adult Medical Decision Making Patient is an 71-year-old female with history of anasarca, CKD who presents the emergency room with concerns of low blood pressure, lightheadedness and near syncope earlier today. Exam, patient has abdominal distention 2+ pitting edema bilaterally. Patient is noted have white count 17.1% which is patient's baseline. Patient's creatinine of 2.7 with a BUN of 60 suggestive of prerenal RODRIGUE. However given the fact the patient has congestive heart failure and generalized anasarca, we have to be judicious with fluid administration. Patient will admitted to hospital for management of RODRIGUE on CKD in the setting of congestive heart failure. Disposition: admission Lab Data : 12/28/21 18:05 12/28/21 18:05 Radiology Impressions Chest X-Ray 12/28/21 17:36 IMPRESSION: 1. No acute cardiopulmonary process. 2. Incidental/nonacute findings are listed in the report. Laboratory Results WBC 17.1 10^3/uL (4.0-10.0) H 12/28/21 18:05 RBC 5.80 10^6/uL (4.1-5.3) H 12/28/21 18:05 Hgb 13.0 g/dL (11.5-15.3) 12/28/21 18:05 Hct 44.1 % (37.0-47.0) 12/28/21 18:05 MCV 76.0 fl (81-99) L 12/28/21 18:05 MCH 22.4 pg (28.0-34.0) L 12/28/21 18:05 MCHC 29.5 g/dL (30.0-36.0) L 12/28/21 18:05 RDW 19.3 % (12.1-15.1) H 12/28/21 18:05 Plt Count 324 10^3/cmm (130-400) 12/28/21 18:05 MPV 10.0 fL (7.4-10.4) 12/28/21 18:05 Neut % (Auto) 73.4 % 12/28/21 18:05 Lymph % (Auto) 11.1 % 12/28/21 18:05 [place] % (Auto) 11.3 % 12/28/21 18:05 Eos % (Auto) 2.1 % 12/28/21 18:05 Baso % (Auto) 0.6 % 12/28/21 18:05 Neut # (Auto) 12.53 10^3/uL (1.8-7.7) H 12/28/21 18:05 Lymph # (Auto) 1.9 10^3/uL (0.8-4.8) 12/28/21 18:05 [place] # (Auto) 1.9 10^3/uL (0.2-0.9) H 12/28/21 18:05 Eos # (Auto) 0.4 10^3/uL (0.0-0.8) 12/28/21 18:05 Baso # (Auto) 0.1 10^3/uL (0.0-0.1) 12/28/21 18:05 Nucleated RBC % (auto) 0 % 12/28/21 18:05 Nucleated RBCs # 0.0 /100WBC 12/28/21 18:05 Sodium 135 mmol/L (136-145) L 12/28/21 18:05 Potassium 4.2 mmol/L (3.5-5.1) 12/28/21 18:05 Chloride 93 mmol/L (98-107) L 12/28/21 18:05 Carbon Dioxide 31 mmol/L (22-29) H 12/28/21 18:05 Anion Gap 15.2 (5-19) 12/28/21 18:05 BUN 60 mg/dL (8-23) H 12/28/21 18:05 Creatinine 2.7 mg/dL (0.5-0.9) H 12/28/21 18:05 GFR Calculation 17.5 mL/min (90-130) L 12/28/21 18:05 Glucose 81 mg/dL (65-115) 12/28/21 18:05 Calculated Osmolality 296 mOsm/kg (285-295) H 12/28/21 18:05 Calcium 9.6 mg/dL (8.5-10.5) 12/28/21 18:05 Total Bilirubin 0.3 mg/dL (0.15-1.2) 12/28/21 18:05 AST 14 U/L (0-32) 12/28/21 18:05 ALT 24 U/L (0-33) 12/28/21 18:05 Alkaline Phosphatase 128 U/L (35-105) H 12/28/21 18:05 Troponin T Baseline 27 ng/L (0-10) H 12/28/21 18:05 NT-Pro-B Natriuret Pep 107 pg/mL (0-125) 12/28/21 18:05 Total Protein 7.0 g/dL (6.6-8.7) 12/28/21 18:05 Albumin 3.9 g/dL (3.5-5.2) 12/28/21 18:05 Globulin 3.1 g/dL (1.3-4.6) 12/28/21 18:05 Lipase 54 U/L (13-60) 12/28/21 18:05 TSH 0.89 uIU/mL (0.27-4.20) 12/28/21 18:05 Imaging Data Other Imaging: Radiologist's impression: [address] [address] XRay Report Signed Patient: Carolyn Alexander Unit #: [id number] : 1950 Age/Sex: 71 / F ADM Date: 12/28/21 Loc: ER Room/Bed: Attending Dr: Ordering Provider/Ordering MD: Iwona Covarrubias MD Date of Service: 12/28/21 Procedure(s): XR chest 1V portable [id number] Accession Number(s): [id number] Report Number: [id number] PROCEDURE INFORMATION: Exam: XR Chest Exam date and time: 12/28/2021 5:41 PM Age: 71 years old Clinical indication: Shortness of breath; Patient HX: SOB; Additional info: Fatigue TECHNIQUE: Imaging protocol: Radiologic exam of the chest. Views: 1 view. COMPARISON: CR XR chest 1V portable [id number] 08/02/2021 8:21 AM FINDINGS: Tubes, catheters and devices: Redemonstration of a paddle from a spinal stimulator in the lower thoracic spine. Lungs: Lungs are clear bilaterally. Pleural spaces: No pleural effusion. No pneumothorax. Heart/Mediastinum: Stable moderate enlargement of the cardiac silhouette. Mediastinal contours are unremarkable. Vasculature: Stable vascular calcifications in the aorta. Bones/joints: Unremarkable for age. XR/XR chest 1V portable [id number] IMPRESSION: 1. No acute cardiopulmonary process. 2. Incidental/nonacute findings are listed in the report. ? Dictated By: Lucia Garcia MD Signed By: Lucia Garcia MD Signed Date/Time: 12/28/211815 DD/ 1741 Discharge Plan Discharge Patient Disposition: Admitted As Inpatient Clinical Impression: Light headedness, Hypotension, Volume overload, Acute kidney injury s uperimposed on CKD Condition: Stable Coding Level of Care Code ED Health Care / Medical Job Titles for Demetriceg Fwd Exam Comprehensive
--- NOTE | 2021-12-28 17:59 | ECG_ITS ---
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 Measurements Intervals [place] Rate: 77 P: 79 [place]: 152 QRS: -22 QRSD: 93 T: 52 QT: 411 QTc: 465 Interpretive Statements SINUS RHYTHM POSSIBLE ANTERIOR MYOCARDIAL INFARCTION , PROBABLY OLD Compared to ECG 08/06/2021 05:16:42 Myocardial infarct finding now present Sinus bradycardia no longer present Electronically Signed On 12-28-2021 20:26:40 CDT by Jaki Leavitt M.D. [id number] f
[2021-12-28 18:15] LABS: Basophils # 0.1 10^3/uL (0.0-0.1); Basophils % 0.6 %; Eosinophils # 0.4 10^3/uL (0.0-0.8); Eosinophils % 2.1 %; Hematocrit 44.1 % (37.0-47.0); Lymphocytes # 1.9 10^3/uL (0.8-4.8); Lymphocytes % 11.1 %; Mean Corpuscular HGB Conc 29.5 g/dL (30.0-36.0); Mean Corpuscular Hemoglobin 22.4 pg (28.0-34.0); Monocytes # 1.9 10^3/uL (0.2-0.9); Monocytes % 11.3 %; Neutrophils # 12.53 10^3/uL (1.8-7.7); Neutrophils % 73.4 %; Nucleated Red Blood Cells % 0 %; Platelet Count 324 10^3/cmm (130-400); Red Cell Distribution Width 19.3 % (12.1-15.1); White Blood Count 17.1 10^3/uL (4.0-10.0)
--- NOTE | 2021-12-28 18:32 | PC.NURSE ---
pt c/o generalized weakness and vomiting. reports she took her BP at home and it was 50s/30s. called and spoke with her pcp who called and ambulance for the pt. pt reports increased dyspnea and weakness with exertion.
[2021-12-28 18:59] LABS: Troponin(5th) Baseline 27 ng/L (0-10)
--- NOTE | 2021-12-28 19:00 | PC.NURSE ---
Report from [facility]. Pt is resting quietly. Denies pain at this time. Denies SOB, unless up and moving. Has 3+ pitting edema to bilat lower extremity. Pt states she has weakness, but denies CP, ABD pain. Alert and Oriented.
[2021-12-28 19:07] LABS: Alanine Aminotransferase 24 U/L (0-33); Albumin Level 3.9 g/dL (3.5-5.2); Alkaline Phosphatase 128 U/L (35-105); Anion Gap 15.2 (5-19); Aspartate Amino Transferase 14 U/L (0-32); Blood Urea Nitrogen 60 mg/dL (8-23); Calcium 9.6 mg/dL (8.5-10.5); Carbon Dioxide 31 mmol/L (22-29); Chloride 93 mmol/L (98-107); Globulin 3.1 g/dL (1.3-4.6); Glomerular Filtration Rate 17.5 mL/min (90-130); Glucose 81 mg/dL (65-115); Lipase 54 U/L (13-60); NT Pro B Type Natriuretic Pept 107 pg/mL (0-125); Osmolality Calculated 296 mOsm/kg (285-295); Potassium 4.2 mmol/L (3.5-5.1); Sodium 135 mmol/L (136-145); Thyroid Stimulating Hormone 0.89 uIU/mL (0.27-4.20); Total Bilirubin 0.3 mg/dL (0.15-1.2)
--- NOTE | 2021-12-28 19:57 | ECG_ITS ---
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 Measurements Intervals [place] Rate: 77 P: 70 [place]: 150 QRS: -22 QRSD: 94 T: 50 QT: 397 QTc: 450 Interpretive Statements SINUS RHYTHM BORDERLINE LEFT AXIS DEVIATION [QRS AXIS < -20] Compared to ECG 12/28/2021 17:59:45 Myocardial infarct finding no longer present Electronically Signed On 12-28-2021 20:34:39 CDT by Jaki Leavitt M.D. [id number]
[2021-12-28 20:54] LABS: Troponin 5 2HR 24.67 ng/L (0-10)
[2021-12-28 20:56] LABS: Troponin 5 2HR Delta -2.33 ABS# (0-10)
[2021-12-28 21:32] LABS: Free T4 Free Thyroxine 2.04 ng/dL (0.82-1.77)
[2021-12-28 22:14] LABS: Cortisol Random 0.52 ug/dL (2.47-19.5)
--- NOTE | 2021-12-28 23:36 | ECG_ITS ---
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 Measurements Intervals [place] Rate: 67 P: 72 [place]: 152 QRS: -22 QRSD: 97 T: 38 QT: 403 QTc: 428 Interpretive Statements SINUS RHYTHM BORDERLINE LEFT AXIS DEVIATION [QRS AXIS < -20] Compared to ECG 12/28/2021 19:57:14 No significant changes Electronically Signed On 12-29-2021 20:57:39 CDT by Chris Sellers M.D. [id number]
[2021-12-29] VITALS (8 sets, daily range): BP systolic 85–126; BP diastolic 54–91; PULSE 70–90; RESP 17–22; TEMP 36.4–36.6; O2SAT 91–95
[2021-12-29 00:08] LABS: Troponin 5 6HR 28.28 ng/L (0-10)
--- NOTE | 2021-12-29 00:10 | P.HP_ITS ---
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 She is maintained on dexamethasone 1 mg p.o. daily. She presented to the emergency room yesterday evening with concerns of low blood pressure, near syncope she checked her blood pressure at home and it was as low as 50/30 therefore presented into the emergency room. She did not sustain a fall. Denied any loss of consciousness. She denies any recent worsening in dyspnea. She has chronic lower extremity swelling, does not appear to be significantly changed over her baseline. She reports compliance with all her medications. Dexamethasone is being tapered as outpatient and has recently been brought down to 1 mg p.o. daily. She was not hypoglycemic at the point. Denies any headache. Patient had previously been on beta-blockers which needed to be placed on hold due to low blood pressure. Review of Systems General: Reports: 10 or more systems reviewed and unremarkable except in HPI and below Const: Denies: fever(s), chills or body aches Eyes: Denies: change in vision, blurry vision or photophobia ENMT: Reports: hoarseness; Denies: throat pain, enlarged tonsils, odynophagia or nasal congestion Card: Denies: chest pain, palpitations, irregular heart rhythm, edema, swelling of feet/ankles, lightheadedness, pre-syncope, dyspnea on exertion or orthopnea Resp: Denies: dyspnea, productive cough, non-productive cough, wheezing, stridor, pain on inspiration, change in phlegm color, hemoptysis or chest congestion GI: Denies: abdominal pain, nausea, vomiting, hematemesis, coffee ground emesis, dysphagia, heartburn, diarrhea, constipation, GI cramping, change in stool character, hematochezia or melena : Denies: flank pain, difficulty voiding, dysuria, urinary frequency, urinary urgency, urinary hesitancy or hematuria Musc: Denies: neck pain, back pain, extremity pain, joint swelling, joint warmth or deformity Neuro: Denies: headache(s), numbness in extremities, weakness in extremities, sensory changes, difficulty walking, frequent falls, dizziness, vertigo, behavioral changes, Slurred speech present or seizure-like activity Psych: Denies: anxiety, depression, suicidal ideation or homicidal ideation Endo: Denies: polyuria, polydipsia, tired all the time, cold intolerance or hot flashes Charli/Lymph: Denies: easy bruising or easy bleeding Medications/Allergies Home Medications Medication Instructions Recorded Confirmed Last Taken Type epinephrine 0.3 mg/0.3 mL 0.3 mg (0.3 mL) IM Q10M PRN 04/20/20 12/28/21 Unknown Rx injection, auto-injector (EpiPen anaphylaxis #2 ea 2-Nabeel) diabetic supplies, miscellan. #1 ea 01/21/21 12/28/21 Unknown Rx blood sugar diagnostic (Pharmacist #50 ea 03/04/21 12/28/21 Unknown Rx Choice Glucose Test Strips) blood-glucose meter,continuous #1 ea 03/04/21 12/28/21 Unknown Rx polyethylene glycol 3350 17 17 g PO DAILY PRN Constipation 05/05/21 12/28/21 Unknown History gram/dose oral powder (Miralax) empagliflozin 10 mg tablet 10 mg PO QAM 08/02/21 12/28/21 12/28/21 History (Jardiance) pantoprazole 40 mg tablet,delayed 40 mg PO QAM 08/02/21 12/28/21 12/28/21 History release (Protonix) potassium chloride 10 mEq 40 meq PO BID 08/02/21 12/28/21 12/28/21 History tablet,extended release pramipexole 0.5 mg tablet (Mirapex) 1 mg PO BEDTIME 08/02/21 12/28/21 12/27/21 History semaglutide 0.25 mg or 0.5 mg (2 1 mg SUBCUT Q7D 08/02/21 12/28/21 12/26/21 History mg/1.5 mL) subcutaneous pen injector (Ozempic) pregabalin 150 mg capsule (Lyrica) 150 mg PO BID 90 days #180 caps 09/01/21 12/28/21 12/28/21 Rx cpap mask and supplies #1 ea 09/14/21 12/28/21 Unknown Rx levothyroxine 175 mcg tablet 175 mcg PO QAM 90 days #90 tabs 10/13/21 12/28/21 12/28/21 Rx silver sulfadiazine 1 % topical 1 applic topical BID #50 grams 12/15/21 12/28/21 Unknown Rx cream (Silvadene) bumetanide 1 mg tablet 1 mg PO DAILY PRN Edema 12/20/21 12/28/21 Unknown History bumetanide 1 mg tablet 2 mg PO BID 12/20/21 12/28/21 12/28/21 History cefdinir 300 mg capsule 300 mg PO BID 5 days #10 caps 12/20/21 12/28/21 12/28/21 Rx dexamethasone 1 mg tablet 1 mg PO QAM 12/20/21 12/29/21 12/28/21 History metolazone 5 mg tablet 5 mg PO DAILY PRN Edema 12/20/21 12/28/21 Unknown History sacubitril 24 mg-valsartan 26 mg 1 tab PO DAILY 12/28/21 12/28/21 12/28/21 History tablet (Entresto) Allergies Allergy/AdvReac Type Severity Reaction Status Date / Time acetaminophen [From Tylenol] Allergy ALGY-Hives Verified 10/01/21 08:24 azithromycin Allergy ALGY-Anaphy Verified 10/01/21 08:24 laxis benzocaine Allergy ALGY-Hives Verified 10/01/21 08:24 butamben [From Cetacaine] Allergy ALGY-Swell Verified 10/01/21 08:24 Lip/Tongue/Throat codeine Allergy ALGY-Hives Verified 10/01/21 08:24 fentanyl Allergy ALGY-Anaphy Verified 10/01/21 08:24 laxis hydrocodone [From Vicodin] Allergy ALGY-Hives Verified 10/01/21 08:24 hydromorphone [From Dilaudid] Allergy ADR-Vomitin Verified 10/01/21 08:24 g Iodinated Contrast Media Allergy ALGY-Anaphy Verified 10/01/21 08:24 laxis liothyronine Allergy ADR-Nausea Verified 10/01/21 08:24 meperidine [From Demerol] Allergy Unknown Verified 10/01/21 08:24 morphine Allergy ALGY-Anaphy Verified 10/01/21 08:24 laxis nitrofurantoin Allergy ALGY-Joint Verified 10/01/21 08:24 [From Macrobid] Pain oxycodone [From Percocet] Allergy ALGY-Hives Verified 10/01/21 08:24 penicillin V Allergy ALGY-Hives Verified 10/01/21 08:24 Penicillins Allergy Unknown Verified 10/01/21 08:24 Phenothiazines Allergy ALGY-Anaphy Verified 10/01/21 08:24 laxis procaine Allergy ALGY-Hives Verified 10/01/21 08:24 prochlorperazine Allergy ALGY-Anaphy Verified 10/01/21 08:24 [From Compazine] laxis Sulfa (Sulfonamide Allergy Unknown Verified 10/01/21 08:24 Antibiotics) tetracaine [From Cetacaine] Allergy ALGY-Swell Verified 10/01/21 08:24 Lip/Tongue/Throat PFSH Acute PFSH: Medical History Acute kidney injury superimposed on chronic kidney disease Adrenal insufficiency Anasarca Anasarca Anasarca Anemia Benign essential hypertension with target blood pressure below 140/90 Central hypothyroidism CHF (congestive heart failure) CHF exacerbation Chronic back pain Follows at pain clinic for periodic injections COVID-19 (~09/2020) Edema Facet arthritis, degenerative, lumbar spine Fatigue Gastroenteritis History of anaphylaxis History of atrial fibrillation Intermittent, has not required long-term anticoagulation or focused treatment History of COVID-19 HTN (hypertension) Hyperaldosteronism 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 Increased nausea and vomiting Lumbar spondylolysis OAB (overactive bladder) Obesity Obesity, morbid, BMI 50 or higher Obstructive sleep apnea KP (obstructive sleep apnea) Paroxysmal atrial fibrillation Pituitary macroadenoma with extrasellar extension Prediabetes Pulmonary hypertension PVD (peripheral vascular disease) Steroid dependence Tachycardia Unsteady gait UTI (urinary tract infection) Venous (peripheral) insufficiency Volume overload Surgical History H/O shoulder surgery History of hysterectomy History of pituitary surgery S/P insertion of spinal cord stimulator Family History Father Cancer pancreatic cancer Sister No problems noted. 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 Vitals/I&O/Wt Last Vital Signs Temp 97.9 F 12/28/21 17:31 Pulse 82 12/28/21 20:36 Resp 18 12/28/21 20:36 BP 91/57 12/28/21 20:36 Pulse Ox 94 12/28/21 20:36 O2 Del Method 12/28/21 20:36 12/28/21 12/28/21 12/29/21 14:59 22:59 06:59 Intake Total 240 / 240 Balance 240 / 240 Weight last 48 hrs Weight 151.953 kg Weight 152.124 kg Weight 150.593 kg Physical Exam Narrative: General: No acute distress, AO x3 HEENT: PERRLA, pupils bilaterally equal and reactive, pallors not present Chest: Normal vesicular breath sounds, no added sounds, equal good air entry bilaterally CVS: S1-S2 regular, no murmurs, no tachycardia, no gallops, no rubs Abdomen: Soft, nontender, no organomegaly, bowel sounds present Neuro: No focal deficits, no facial deformity, AO x3, power 5/5 in all limbs Data : 12/28/21 18:05 12/28/21 23:41 Other Labs: Radiology Impressions Chest X-Ray 12/28/21 17:36 IMPRESSION: 1. No acute cardiopulmonary process. 2. Incidental/nonacute findings are listed in the report. Laboratory Results WBC 17.1 10^3/uL (4.0-10.0) H 12/28/21 18:05 RBC 5.80 10^6/uL (4.1-5.3) H 12/28/21 18:05 Hgb 13.0 g/dL (11.5-15.3) 12/28/21 18:05 Hct 44.1 % (37.0-47.0) 12/28/21 18:05 MCV 76.0 fl (81-99) L 12/28/21 18:05 MCH 22.4 pg (28.0-34.0) L 12/28/21 18:05 MCHC 29.5 g/dL (30.0-36.0) L 12/28/21 18:05 RDW 19.3 % (12.1-15.1) H 12/28/21 18:05 Plt Count 324 10^3/cmm (130-400) 12/28/21 18:05 MPV 10.0 fL (7.4-10.4) 12/28/21 18:05 Neut % (Auto) 73.4 % 12/28/21 18:05 Lymph % (Auto) 11.1 % 12/28/21 18:05 Saunders % (Auto) 11.3 % 12/28/21 18:05 Eos % (Auto) 2.1 % 12/28/21 18:05 Baso % (Auto) 0.6 % 12/28/21 18:05 Neut # (Auto) 12.53 10^3/uL (1.8-7.7) H 12/28/21 18:05 Lymph # (Auto) 1.9 10^3/uL (0.8-4.8) 12/28/21 18:05 Saunders # (Auto) 1.9 10^3/uL (0.2-0.9) H 12/28/21 18:05 Eos # (Auto) 0.4 10^3/uL (0.0-0.8) 12/28/21 18:05 Baso # (Auto) 0.1 10^3/uL (0.0-0.1) 12/28/21 18:05 Nucleated RBC % (auto) 0 % 12/28/21 18:05 Nucleated RBCs # 0.0 /100WBC 12/28/21 18:05 Sodium 134 mmol/L (136-145) L 12/28/21 23:41 Potassium 4.1 mmol/L (3.5-5.1) 12/28/21 23:41 Chloride 92 mmol/L (98-107) L 12/28/21 23:41 Carbon Dioxide 27 mmol/L (22-29) 12/28/21 23:41 Anion Gap 19.1 (5-19) H 12/28/21 23:41 BUN 60 mg/dL (8-23) H 12/28/21 23:41 Creatinine 2.8 mg/dL (0.5-0.9) H 12/28/21 23:41 GFR Calculation 16.8 mL/min (90-130) L 12/28/21 23:41 Glucose 92 mg/dL (65-115) 12/28/21 23:41 Calculated Osmolality 295 mOsm/kg (285-295) 12/28/21 23:41 Calcium 10.1 mg/dL (8.5-10.5) 12/28/21 23:41 Total Bilirubin 0.4 mg/dL (0.15-1.2) 12/28/21 23:41 AST 16 U/L (0-32) 12/28/21 23:41 ALT 23 U/L (0-33) 12/28/21 23:41 Alkaline Phosphatase 124 U/L (35-105) H 12/28/21 23:41 Troponin T Baseline 27 ng/L (0-10) H 12/28/21 18:05 Troponin T 120 Minute 24.67 ng/L (0-10) H 12/28/21 20:30 Delta Troponin T -2.33 ABS# (0-10) L 12/28/21 20:30 Troponin T Hi Sens 6Hr 28.28 ng/L (0-10) H 12/27/21 23:41 Troponin T Hi Sens 6Hr Delta 1.28 ng/L (0-12) 12/27/21 23:41 NT-Pro-B Natriuret Pep 107 pg/mL (0-125) 12/28/21 18:05 Total Protein 6.6 g/dL (6.6-8.7) 12/28/21 23:41 Albumin 3.6 g/dL (3.5-5.2) 12/28/21 23:41 Globulin 3.0 g/dL (1.3-4.6) 12/28/21 23:41 Lipase 54 U/L (13-60) 12/28/21 18:05 TSH 0.89 uIU/mL (0.27-4.20) 12/28/21 18:05 Free T4 2.04 ng/dL (0.82-1.77) H 12/28/21 18:05 Random Cortisol 0.52 ug/dL (2.47-19.5) L 12/28/21 18:05 A&P Assessment and plan (1) Hypotension: Patient presenting today with chief complaints of hypotension. This may be related to multiple medications which patient is currently on. In a ddition to diuretics Bumex and metolazone, patient is on Entresto. For now we will hold the Entresto given hypotension and RODRIGUE. Will additionally hold metolazone. We will continue Bumex at 2 mg p.o. twice daily. Patient reports chronic lower extremity edema which is not significantly worsened over her baseline. Also reports that recently dexamethasone had been tapered down to 1 mg p.o. daily. Random cortisol measured today is low at 0.5. Will increase dexamethasone to 1.5 mg p.o. daily for now. Check orthostatics. Since admission her lowest blood pressure range has been 91/54 mmHg. Troponin series is without significant delta. No concerning signs or symptoms of sepsis at this time. (2) Acute kidney injury superimposed on CKD: RODRIGUE on CKD, likely to be multifactorial related to medications, hypotension. Hold Entresto, hold metolazone. Continue Bumex 2 mg p.o. twice daily (3) Obesity, morbid, BMI 50 or higher: (4) Atrial fibrillation: Currently rate controlled with 70 bpm. 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
[2021-12-29 00:20] LABS: Troponin 5 6HR Delta 1.28 ng/L (0-12)
[2021-12-29 01:09] LABS: Alanine Aminotransferase 23 U/L (0-33); Albumin Level 3.6 g/dL (3.5-5.2); Alkaline Phosphatase 124 U/L (35-105); Blood Urea Nitrogen 60 mg/dL (8-23); Calcium 10.1 mg/dL (8.5-10.5); Carbon Dioxide 27 mmol/L (22-29); Chloride 92 mmol/L (98-107); Glomerular Filtration Rate 16.8 mL/min (90-130); Glucose 92 mg/dL (65-115); Osmolality Calculated 295 mOsm/kg (285-295); Sodium 134 mmol/L (136-145); Total Bilirubin 0.4 mg/dL (0.15-1.2); Total Protein 6.6 g/dL (6.6-8.7)
[2021-12-29 01:14] LABS: Anion Gap 19.1 (5-19); Potassium 4.1 mmol/L (3.5-5.1)
[2021-12-29 01:15] LABS: Aspartate Amino Transferase 16 U/L (0-32)
[2021-12-29] MEDS: pantoprazole DR 40 mg Tablet PO (05:25)
[2021-12-29] MEDS: levothyroxine 150 mcg Tablet PO (05:25)
[2021-12-29 06:23] LABS: Glucose Point of Care 87 mg/dL (70-110)
[2021-12-29] MEDS: dexamethasone 4 mg/mL INJ 1.5 MG PO (06:42)
[2021-12-29] MEDS: pregabalin 150 mg Capsule PO ×2 (08:56→17:34)
[2021-12-29] MEDS: bumetanide 1 mg Tablet 2 MG PO (08:56)
[2021-12-29 11:29] LABS: Urine Appearance Clear (CLEAR); Urine Color Colorless (Yellow)
[2021-12-29 11:30] LABS: Add Urine Culture? No; Add Urine Microscopic? YES; Bacteria Urine TRACE /hpf; Bilirubin Urine Neg (Negative); Blood Urine Trace (Negative); Glucose Urine UA 2+ (Normal); Ketones Urine Negative (Negative); Leukocyte Esterase Urine Negative (Negative); Nitrate Urine Negative (Negative); Protein Urine Neg (Negative); RBC Urine 0-4 /hpf (0-2); Specific Gravity, Urine 1.005 (1.005-1.030); Squamous Epithelial Cell Urine RARE /hpf (0-5); Urobilinogen Urine Norm (Negative); WBC Urine RARE /hpf (0-5); pH Urine 7 (5-7)
[2021-12-29 11:48] LABS: Glucose Point of Care 132 mg/dL (70-110)
[2021-12-29] MEDS: bumetanide 0.25 mg/mL SDV 10 mL 2 MG IVP ×2 (12:15→17:34)
[2021-12-29] MEDS: midodrine 5 mg TABLET 10 MG PO ×2 (12:40→20:20)
--- NOTE | 2021-12-29 14:32 | PM.CONSULT ---
Providers/Reason For Consult Consulting Physician/Specialty*: Marion Matute DO, telenephrology Reason for Consult*: Acute kidney injury Attending Physician: Jay Wright MD Primary Care Provider: Crys Glover NP History of Present Illness History of Present Illness Carolyn Alexander is a 71 year old female presented to ER for evaluation of low BP. She states she was home for 1 week. Was in hospital or rehab for 6 weeks prior. One hospitalization was for RODRIGUE due to dehydration. 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 States baseline sCr is 1.2 - 1.5 mg/dL. Denies new medications. states daily weights at home over past week showed 2# weight loss Medications/Allergies Home Medications Medication Instructions Recorded Confirmed Last Taken Type epinephrine 0.3 mg/0.3 mL 0.3 mg (0.3 mL) IM Q10M PRN 04/20/20 12/28/21 Unknown Rx injection, auto-injector (EpiPen anaphylaxis #2 ea 2-Nabeel) diabetic supplies, miscellan. #1 ea 01/21/21 12/28/21 Unknown Rx blood sugar diagnostic (Pharmacist #50 ea 03/04/21 12/28/21 Unknown Rx Choice Glucose Test Strips) blood-glucose meter,continuous #1 ea 03/04/21 12/28/21 Unknown Rx polyethylene glycol 3350 17 17 g PO DAILY PRN Constipation 05/05/21 12/28/21 Unknown History gram/dose oral powder (Miralax) empagliflozin 10 mg tablet 10 mg PO QAM 08/02/21 12/28/21 12/28/21 History (Jardiance) pantoprazole 40 mg tablet,delayed 40 mg PO QAM 08/02/21 12/28/21 12/28/21 History release (Protonix) potassium chloride 10 mEq 40 meq PO BID 08/02/21 12/28/21 12/28/21 History tablet,extended release pramipexole 0.5 mg tablet (Mirapex) 1 mg PO BEDTIME 08/02/21 12/28/21 12/27/21 History semaglutide 0.25 mg or 0.5 mg (2 1 mg SUBCUT Q7D 08/02/21 12/28/21 12/26/21 History mg/1.5 mL) subcutaneous pen injector (Ozempic) pregabalin 150 mg capsule (Lyrica) 150 mg PO BID 90 days #180 caps 09/01/21 12/28/21 12/28/21 Rx cpap mask and supplies #1 ea 09/14/21 12/28/21 Unknown Rx levothyroxine 175 mcg tablet 175 mcg PO QAM 90 days #90 tabs 10/13/21 12/28/21 12/28/21 Rx silver sulfadiazine 1 % topical 1 applic topical BID #50 grams 12/15/21 12/28/21 Unknown Rx cream (Silvadene) bumetanide 1 mg tablet 1 mg PO DAILY PRN Edema 12/20/21 12/28/21 Unknown History bumetanide 1 mg tablet 2 mg PO BID 12/20/21 12/28/21 12/28/21 History cefdinir 300 mg capsule 300 mg PO BID 5 days #10 caps 12/20/21 12/28/21 12/28/21 Rx dexamethasone 1 mg tablet 1 mg PO QAM 12/20/21 12/29/21 12/28/21 History metolazone 5 mg tablet 5 mg PO DAILY PRN Edema 12/20/21 12/28/21 Unknown History sacubitril 24 mg-valsartan 26 mg 1 tab PO DAILY 12/28/21 12/28/21 12/28/21 History tablet (Entresto) Allergies Allergy/AdvReac Type Severity Reaction Status Date / Time acetaminophen [From Tylenol] Allergy ALGY-Hives Verified 10/01/21 08:24 azithromycin Allergy ALGY-Anaphy Verified 10/01/21 08:24 laxis benzocaine Allergy ALGY-Hives Verified 10/01/21 08:24 butamben [From Cetacaine] Allergy ALGY-Swell Verified 10/01/21 08:24 Lip/Tongue/Throat codeine Allergy ALGY-Hives Verified 10/01/21 08:24 fentanyl Allergy ALGY-Anaphy Verified 10/01/21 08:24 laxis hydrocodone [From Vicodin] Allergy ALGY-Hives Verified 10/01/21 08:24 hydromorphone [From Dilaudid] Allergy ADR-Vomitin Verified 10/01/21 08:24 g Iodinated Contrast Media Allergy ALGY-Anaphy Verified 10/01/21 08:24 laxis liothyronine Allergy ADR-Nausea Verified 10/01/21 08:24 meperidine [From Demerol] Allergy Unknown Verified 10/01/21 08:24 morphine Allergy ALGY-Anaphy Verified 10/01/21 08:24 laxis nitrofurantoin Allergy ALGY-Joint Verified 10/01/21 08:24 [From Macrobid] Pain oxycodone [From Percocet] Allergy ALGY-Hives Verified 10/01/21 08:24 penicillin V Allergy ALGY-Hives Verified 10/01/21 08:24 Penicillins Allergy Unknown Verified 10/01/21 08:24 Phenothiazines Allergy ALGY-Anaphy Verified 10/01/21 08:24 laxis procaine Allergy ALGY-Hives Verified 10/01/21 08:24 prochlorperazine Allergy ALGY-Anaphy Verified 10/01/21 08:24 [From Compazine] laxis Sulfa (Sulfonamide Allergy Unknown Verified 10/01/21 08:24 Antibiotics) tetracaine [From Cetacaine] Allergy ALGY-Swell Verified 10/01/21 08:24 Lip/Tongue/Throat Current Medications Generic Name Dose Route Start Last Admin Trade Name Freq PRN Reason Stop Dose Admin Bumetanide 2 mg 12/29/21 13:00 12/29/21 12:15 Bumetanide 0.25 Mg/Ml Sdv 10 Ml IVP 2 mg Q12H RAMIRO Administration Dexamethasone 1.5 mg 12/29/21 07:00 12/29/21 06:42 Dexamethasone 4 Mg/Ml Inj PO 1.5 mg QAM RAMIRO Administration Insulin Human Lispro 0 unit 12/29/21 08:00 12/29/21 11:53 Insulin Lispro 100 Unit/1 Ml SUBCUT Not Given WM&BEDTIME [facility] Protocol Levothyroxine Sodium 150 mcg 12/29/21 06:00 12/29/21 05:25 Levothyroxine 150 Mcg Tablet PO 150 mcg QAM RAMIRO Administration Midodrine 10 mg 12/29/21 12:30 12/29/21 12:40 Midodrine 5 Mg Tablet PO 10 mg Q8H RAMIRO Administration Pantoprazole Sodium 40 mg 12/29/21 06:00 12/29/21 05:[address] 40 Mg Tablet PO 40 mg QAM RAMIRO Administration Pregabalin 150 mg 12/29/21 09:00 12/29/21 08:56 Pregabalin 150 Mg Capsule PO 150 mg BID RAMIRO Administration PFSH Acute PFSH: Medical History Acute kidney injury superimposed on chronic kidney disease Adrenal insufficiency Anasarca Anasarca Anasarca Anemia Benign essential hypertension with target blood pressure below 140/90 Central hypothyroidism CHF (congestive heart failure) CHF exacerbation Chronic back pain Follows at pain clinic for periodic injections COVID-19 (~09/2020) Edema Facet arthritis, degenerative, lumbar spine Fatigue Gastroenteritis History of anaphylaxis History of atrial fibrillation Intermittent, has not required long-term anticoagulation or focused treatment History of COVID-19 HTN (hypertension) Hyperaldosteronism 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 Increased nausea and vomiting Lumbar spondylolysis OAB (overactive bladder) Obesity Obesity, morbid, BMI 50 or higher Obstructive sleep apnea KP (obstructive sleep apnea) Paroxysmal atrial fibrillation Pituitary macroadenoma with extrasellar extension Prediabetes Pulmonary hypertension PVD (peripheral vascular disease) Steroid dependence Tachycardia Unsteady gait UTI (urinary tract infection) Venous (peripheral) insufficiency Volume overload Surgical History H/O shoulder surgery History of hysterectomy History of pituitary surgery S/P insertion of spinal cord stimulator Family History Father Cancer pancreatic cancer Sister No problems noted. 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 Vitals/I&O/Wt Last Vital Signs Temp 97.8 F 12/29/21 11:38 Pulse 77 12/29/21 11:38 Resp 18 12/29/21 11:38 BP 85/63 12/29/21 12:36 Pulse Ox 95 12/29/21 11:38 O2 Del Method 12/29/21 11:38 12/28/21 12/29/21 12/29/21 22:59 06:59 14:59 Intake Total 240 / 240 240 / 240 Output Total 350 / 350 Balance 240 / 240 -110 / -110 Weight last 48 hrs Weight 151.953 kg Weight 152.124 kg Weight 150.593 kg Physical Exam Const: COMMON NORMALS: no acute distress Extremity: NARRATIVE EXTREMITY EXAM: edema Urinary Catheter Management: [place]: Cath Placed During This Visit: yes Urinary Catheter Date of Insertion: 12/29/21 Urinary Catheter Time of Insertion: 11:30 Data : 12/28/21 18:05 12/29/21 14:53 Other Labs: Ca 9, phos 4.1, Mg 3.1 urinalysis + glucose Echo: Radiologist's impression: normal EF CT Abd/Pel: Radiologist's impression: Mar 2021: normal kidneys A&P Assessment and plan (1) Acute kidney injury superimposed on CKD: Plan seen via telemedicine with assistance of RN at chairside 1. Acute kidney injury, history of same. Was taking entresto and jardiance. Possibly prerenal. Agree with holding both. Serum creatinine improving 2. Mild hyponatremia Rec: agree with midodrine for BP support. May not need IV diuretics. Repeat labs in AM Consult Attestations Medical Necessity Statement: see above Time Spent in Patient Care: 16 - 35 minutes Coding Level of Care Code Acute Interpreter [employer] for Duarte Molina Diagnoses Acute kidney injury superimposed on CKD N17.9; N18.9
--- NOTE | 2021-12-29 15:08 | P.PN_ITS ---
Subjective Subjective: Patient was seen this morning, she shows me that on her tablet she was admitted in November in [facility], to their CHF unit, she had gained 30 pounds in the matter of a few days, her creatinine on admission on December 08 was 2.9, with diuresis improved to 1.2, she does report increased shortness of breath, bilateral extremity edema, she was currently she is complaining of lower extremity edema, no lightheadedness, dizziness, no fevers, chills, no dysuria, no cough Vitals/I&O/Wt Last Vital Signs Temp 97.5 F L 12/29/21 15:04 Pulse 70 12/29/21 15:04 Resp 20 H 12/29/21 15:04 BP 112/67 12/29/21 15:04 Pulse Ox 93 12/29/21 15:04 O2 Del Method 12/29/21 15:04 12/29/21 12/29/21 12/29/21 06:59 14:59 22:59 Intake Total 240 / 240 Output Total 350 / 350 Balance -110 / -110 Weight last 48 hrs Weight 151.953 kg Weight 152.124 kg Weight 150.593 kg Physical Exam Const: COMMON NORMALS: no acute distress and patient oriented x3 Resp: COMMON NORMALS: normal respiratory effort, No retractions, No use of accessory muscles and clear to auscultation bilaterally AUSCULTATION: clear to auscultation bilaterally Cardio: COMMON NORMALS: regular rate, regular rhythm, S1 normal heart sound present and S2 normal heart sound present RATE: regular rate RHYTHM: regular rhythm HEART SOUNDS: S1 normal heart sound present and S2 normal heart sound present GI: COMMON NORMALS: Normal to inspection, nondistended, normoactive bowel s ounds present, non-tender and no masses Extremity: NARRATIVE EXTREMITY EXAM: 2+ pitting edema, generalized anasarca Neuro: COMMON NORMALS: patient oriented x3 Psych: COMMON NORMALS: mental status grossly normal Urinary Catheter Management: Zurita: Cath Placed During This Visit: yes Urinary Catheter Date of Insertion: 12/29/21 Urinary Catheter Time of Insertion: 11:30 Data : 12/28/21 18:05 12/28/21 23:41 A&P Assessment and plan (1) Light headedness: (2) Hypotension: (3) Volume overload: (4) Acute kidney injury superimposed on CKD: (5) Obesity, morbid, BMI 50 or higher: (6) Atrial fibrillation: Plan Fluid overload, anasarca, bilateral lower extremity edema -She has gained 30 pounds, weight today 334 pounds -Her dry weight is 300 pounds -She has bilateral 2+ pitting edema, increase shortness of breath -Her baseline creatinine is anywhere between 1-1.6 -She is only diuresed 400 mL since receiving 4 mg of Bumex -Blood pressures remain soft, 90s over 50s, precluding optimal diuresis -Plan -I wanted to move her down to the ICU for possible pressors in addition to diuresi -we will consider Lasix drip -Low-dose Levophed, maintain MAP around 75 -Will consider consulting cardiology -Order infectious work-up ESR, CRP, Pro-Reece, blood cultures -Due to concerns for low cortisol level, her dose of Decadron was increased to 1.5 mg p.o. every morning -Full code -Heparin for DVT prophylaxis Attestations Medical Necessity Statement*: Patient requires hospitalization, inpatient, greater than 2 midnights, for fluid overload Coding Level of Care Code Acute Oil Well Perforator Operator for Chg Fwd Diagnoses Light headedness R42 Hypotension I95.9 Volume overload E87.70 Acute kidney injury superimposed on CKD N17.9; N18.9 Obesity, morbid, BMI 50 or higher E66.01 Atrial fibrillation I48.91
[2021-12-29 15:44] LABS: Procalcitonin 0.12 ng/mL (0-0.5)
[2021-12-29 15:48] LABS: Anion Gap 17.6 (5-19); Blood Urea Nitrogen 57 mg/dL (8-23); C Reactive Protein 45.6 mg/L (0.0-4.9); Carbon Dioxide 25 mmol/L (22-29); Chloride 94 mmol/L (98-107); Glomerular Filtration Rate 22.1 mL/min (90-130); Glucose 179 mg/dL (65-115); Osmolality Calculated 296 mOsm/kg (285-295); Potassium 3.6 mmol/L (3.5-5.1); Sodium 133 mmol/L (136-145)
--- NOTE | 2021-12-29 15:55 | PC.NURSE ---
report called to MYRON Mc in ICU
[2021-12-29 16:04] LABS: Magnesium 3.1 mg/dL (1.7-2.3); Phosphorus 4.1 mg/dL (2.5-4.5)
[2021-12-29 16:15] LABS: Erythrocyte Sedimentation Rate 22 mm/hr (0-15)
[2021-12-29 16:36] LABS: Lactate (Lactic Acid level) 1.4 mmol/L (0.5-2.2)
[2021-12-29 17:00] LABS: Glucose Point of Care 203 mg/dL (70-110)
[2021-12-29] MEDS: insulin lispro 100 unit/1 mL SUBCUT ×2 (17:33→20:54)
[2021-12-29] MEDS: heparin 5,000 unit/mL INJ 1 mL 5000 UNIT SUBCUT (17:34)
[2021-12-29] MEDS: pramipexole 0.25 mg Tablet 1 MG PO (20:22)
[2021-12-29 20:45] LABS: Glucose Point of Care 182 mg/dL (70-110)
[2021-12-30] VITALS (7 sets, daily range): BP systolic 100–165; BP diastolic 64–91; PULSE 57–90; RESP 16–23; TEMP 36.4–36.7; O2SAT 92–95
[2021-12-30] MEDS: bumetanide 0.25 mg/mL SDV 10 mL 2 MG IVP (02:28)
[2021-12-30 03:23] LABS: Basophils # 0.1 10^3/uL (0.0-0.1); Basophils % 0.4 %; Eosinophils # 0.2 10^3/uL (0.0-0.8); Eosinophils % 1.7 %; Hematocrit 40.4 % (37.0-47.0); Hemoglobin 11.6 g/dL (11.5-15.3); Lymphocytes # 1.5 10^3/uL (0.8-4.8); Lymphocytes % 10.8 %; Mean Corpuscular HGB Conc 28.7 g/dL (30.0-36.0); Mean Corpuscular Hemoglobin 22.4 pg (28.0-34.0); Mean Platelet Volume 10.1 fL (7.4-10.4); Monocytes # 1.3 10^3/uL (0.2-0.9); Monocytes % 9.6 %; Neutrophils # 10.37 10^3/uL (1.8-7.7); Neutrophils % 76.3 %; Nucleated Red Blood Cells % 0 %; Platelet Count 310 10^3/cmm (130-400); Red Blood Count 5.18 10^6/uL (4.1-5.3); White Blood Count 13.6 10^3/uL (4.0-10.0)
[2021-12-30] MEDS: heparin 5,000 unit/mL INJ 1 mL 5000 UNIT SUBCUT ×2 (04:14→15:25)
[2021-12-30] MEDS: midodrine 5 mg TABLET 10 MG PO ×3 (04:14→21:09)
[2021-12-30] MEDS: levothyroxine 150 mcg Tablet PO (05:56)
[2021-12-30] MEDS: pantoprazole DR 40 mg Tablet PO (05:56)
[2021-12-30 06:05] LABS: Glucose Point of Care 121 mg/dL (70-110)
--- NOTE | 2021-12-30 06:21 | P.PN_ITS ---
Subjective Subjective: swollen, feels better. BP improved. no n/v/f/c/lam/d. has edema Medications: Reviewed: Yes Medication Review Details: Current Medications Bumetanide (Bumetanide 0.25 Mg/Ml Sdv 10 Ml) 2 mg IVP Q8H [facility] Last Admin: 12/30/21 02:28 Dose: 2 mg Dextrose (Dextrose 50% Syringe 50 Ml) 25 ml IVP ONCE PRN; Protocol PRN Reason: hypoglycemia protocol Dextrose (Dextrose 50% Syringe 50 Ml) 50 ml IVP PRN PRN; Protocol PRN Reason: hypoglycemia protocol Glucagon (Glucagon 1 Mg/Ml Inj 1 Ml) 1 mg IM ONCE PRN; Protocol PRN Reason: Adult Acute Hypoglycemia Prot. Heparin Sodium (Porcine) (Heparin 5,000 Unit/Ml Inj 1 Ml) 5,000 unit SUBCUT Q12H [facility] Last Admin: 12/30/21 04:14 Dose: 5,000 unit Dextrose (D5w) 500 mls @ 100 mls/hr IV ONCE PRN; Protocol PRN Reason: Adult Acute Hypoglycemia Prot Norepinephrine Bitartrate 4 mg (/ Dextrose) 254 mls @ 0 mls/hr IV .Q0M RAMIRO; Protocol Insulin Human Lispro (Insulin Lispro 100 Unit/1 Ml) 0 unit SUBCUT WM&BEDTIME RAMIRO; Protocol Last Admin: 12/29/21 20:54 Dose: 6 unit Levothyroxine Sodium (Levothyroxine 150 Mcg Tablet) 150 mcg PO QAM [facility] Last Admin: 12/30/21 05:56 Dose: 150 mcg Midodrine (Midodrine 5 Mg Tablet) 10 mg PO Q8H [facility] Last Admin: 12/30/21 04:14 Dose: 10 mg Non-Formulary Medication ( Dexamethasone 1.5 Mg Tablet) 1.5 mg PO DAILY RAMIRO Pantoprazole Sodium (Pantoprazole Dr 40 Mg Tablet) 40 mg PO QAM [facility] Last Admin: 12/30/21 05:56 Dose: 40 mg Polyethylene Glycol (Polyethylene Glycol 3350 Pkt 17 Gm) 17 gm PO DAILY PRN PRN Reason: Constipation Pramipexole Dihydrochloride (Pramipexole 0.25 Mg Tablet) 1 mg PO BEDTIME [facility] Last Admin: 12/29/21 20:22 Dose: 1 mg Pregabalin (Pregabalin 150 Mg Capsule) 150 mg PO BID [facility] Last Admin: 12/29/21 17:34 Dose: 150 mg Vitals/I&O/Wt Last Vital Signs Temp 97.5 F L 12/30/21 04:00 Pulse 64 12/30/21 04:00 Resp 23 H 12/30/21 04:00 BP 119/74 12/30/21 04:00 Pulse Ox 94 12/30/21 04:00 O2 Del Method 12/29/21 15:04 12/29/21 12/29/21 12/30/21 14:59 22:59 06:59 Intake Total 240 / 240 300 / 540 480 / 1020 Output Total 350 / 350 1650 / 2000 2150 / 4150 Balance -110 / -110 -1350 / -1460 -1670 / -3130 Weight last 48 hrs Weight 151.953 kg Weight 151.953 kg Weight 152.124 kg Weight 150.593 kg Physical Exam Narrative: obese, good uop vs improved and stable heent- nc/at, eomi, anicteric neck no jvp lungs dull bases heart reg abd soft, nt, nd ext b/l 2+ edema neuro- a,a, o x 3 Urinary Catheter Management: Zurita: Cath Placed During This Visit: yes Reason for Continuing Indwelling Catheter: Accurate Measurement of Urinary Output in Critically Ill Patients Urinary Catheter Date of Insertion: 12/29/21 Urinary Catheter Time of Insertion: 11:30 Data : 12/30/21 02:41 12/29/21 14:53 Micro: Microbiology 12/29/21 16:04 Blood Culture - Preliminary Blood SPECIMEN COLLECTED 12/29/21 16:00 Blood Culture - Preliminary Blood SPECIMEN COLLECTED A&P Assessment and plan (1) Acute kidney injury superimposed on CKD: see below Plan seen via telemedicine with assistance of RN at chairside 71 yr old female w/ history of diastolic heart failure, paroxysmal atrial fibrillation, and 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 She is maintained on dexamethasone 1 mg p.o. daily.? Pt was admitted w/ hypotension and RODRIGUE 1. Acute kidney injury- she was taking entresto and jardiance. Possibly p rerenal. -also 30 lb weight gain- concern for CRS -consider repeat echo -excellent diuresis -monitor uop and chem 7 dec bumex 2. Mild hyponatremia- monitor na on bumex, RODRIGUE improving and fluid restriction 3. bp improving discussed w/ pt time spent 30 min Attestations Medical Necessity Statement*: chf, rodrigue Time Spent in Patient Care: 16 - 35 minutes (>than 50% of time spent in counselling and/or direct pt care on unit) . Coding Level of Care Code Acute Window Covering Sales Consultant for Chg Fwd Diagnoses Acute kidney injury superimposed on CKD N17.9; N18.9
[2021-12-30] MEDS: metOLazone 5 MG Tablet PO (08:58)
[2021-12-30] MEDS: pregabalin 150 mg Capsule PO ×2 (08:59→17:36)
[2021-12-30] MEDS: bumetanide 0.25 mg/mL SDV 10 mL 1 MG IVP ×2 (09:02→17:36)
[2021-12-30] MEDS: lidocaine 1% 5 ML in potassium chloride premix 100 ML 25 ML IV (10:15)
--- NOTE | 2021-12-30 10:39 | PC.CHAP ---
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 life skills worker visit [] Patient/Family/Request visit [] Outpatient visit [] Follow-up visit [] Physician referral [] Code/Alert [x] Routine visit [] Staff referral [] Actively dying [] Patient sleeping [] Family support [] [] Out of room [] Palliative care [] [x] Receiving care in room [] Pre-surgical visit [] Trauma [] Long length of stay [] ICU visit [] Other: Relational/Emotional Strength [x] Patient feels connected with others/family/visitors/staff [] Distress [] Loneliness/isolation [] Abandonment Spirituality of Patient [x] Person of Minoo [] Attends Shinto of their [place] [x] Believes in Prayer [] Reads Bible or Restorationist materials [] There are Spiritual issues to be addressed Iron Bender Interventions [x] Prayer [x] Active listening [x] Non-anxious presence [x] Spiritual/emotional support [] Crisis/trauma care [x] Spiritual counseling [] Bereavement support [] Provided bereavement packet [] Provided Bible/devotional materials [] Provided toy/stuffed animal, coloring book to patient or family member [] Provided Communion [] Anointing/[place] [] Salvation [x] Completed spiritual assessment [] Other: Impact on Illness or Injury [] Angry [] Fearful [x] Anxious [] Often cries [] Exhaustion [] Unable to work [] Unable to attend holiness [] Unable to walk/stand [] Unable to read [] Unable to drive [] Unable to eat/drink [] Unable to sleep [] Unable to be with family [] Patient intubated [] Other: Summary = 1 lossing blood had one piant of blood waiting on test as what where she is lossing blood and doctors report Time spent with patient 10 mins
[2021-12-30 11:10] LABS: Glucose Point of Care 111 mg/dL (70-110)
--- NOTE | 2021-12-30 11:33 | P.PN_ITS ---
Subjective Subjective: Patient was seen this morning, she is quite teary this morning and upset, as her diet was changed to renal diet, she tells that whenever she was at the CHF hospitalization, they let her eat what ever, because they wanted no how she retained fluid on a regular diet, she is also worried about her potassium replacement, she tells me that she still feels puffy Vitals/I&O/Wt Last Vital Signs Temp 98.1 F 12/30/21 11:24 Pulse 57 L 12/30/21 11:24 Resp 16 12/30/21 11:24 BP 135/77 12/30/21 11:24 Pulse Ox 92 12/30/21 11:24 O2 Del Method 12/30/21 11:24 12/29/21 12/30/21 12/30/21 22:59 06:59 14:59 Intake Total 300 / 540 480 / 1020 Output Total 1650 / 2000 2150 / 4150 1500 / 1500 Balance -1350 / -1460 -1670 / -3130 -1500 / -1500 Weight last 48 hrs Weight 152.09 kg Weight 151.953 kg Weight 152.124 kg Weight 150.593 kg Physical Exam Const: COMMON NORMALS: no acute distress and patient oriented x3 Resp: COMMON NORMALS: normal respiratory effort, No retractions, No use of accessory muscles and clear to auscultation bilaterally AUSCULTATION: clear to auscultation bilaterally Cardio: COMMON NORMALS: regular rate, regular rhythm, S1 normal heart sound present and S2 normal heart sound present RATE: regular rate RHYTHM: regular rhythm HEART SOUNDS: S1 normal heart sound present and S2 normal heart sound present GI: COMMON NORMALS: Normal to inspection, nondistended, normoactive bowel sounds present, Soft to palpation, non-tender, no masses and no bruits PALPATION: Yes Soft to palpation Extremity: NARRATIVE EXTREMITY EXAM: 1+ pitting bilateral extremity Neuro: COMMON NORMALS: patient oriented x3 Psych: COMMON NORMALS: mental status grossly normal Urinary Catheter Management: Zurita: Cath Placed During This Visit: yes Reason for Continuing Indwelling Catheter: Accurate Measurement of Urinary Output in Critically Ill Patients Urinary Catheter Date of Insertion: 12/29/21 Urinary Catheter Time of Insertion: 11:30 Data : 12/30/21 02:41 12/29/21 14:53 Micro: Microbiology 12/29/21 16:04 Blood Culture - Preliminary Blood SPECIMEN COLLECTED 12/29/21 16:00 Blood Culture - Preliminary Blood SPECIMEN COLLECTED A&P Assessment and plan (1) Acute kidney injury superimposed on CKD: see below Plan (1) Light headedness: (2) Hypotension: (3) Volume overload: (4) Acute kidney injury superimposed on CKD: (5) Obesity, morbid, BMI 50 or higher: (6) Atrial fibrillation: Plan Fluid overload, anasarca, bilateral lower extremity edema -She has gained 30 pounds, weight today 334 pounds -Her dry weight is 300 pounds -She has bilateral 2+ pitting edema, increase shortness of breath -Her baseline creatinine is anywhere between 1-1.6 --6 L -Blood pressures have responded to midodrine -Plan -We will keep her on the general medical floors for now -Continue Bumex, 1 dose of metolazone Continue midodrine -Order infectious work-up ESR, CRP, Pro-Reece, blood cultures -Full code -Heparin for DVT prophylaxis Attestations Medical Necessity Statement*: Patient requires hospitalization for fluid overload, requiring inpatient diuresis Coding Level of Care Code Acute Title Processor for Chg Fwd Diagnoses Acute kidney injury superimposed on CKD N17.9; N18.9
[2021-12-30] MEDS: fixodent 39 gm Tube 1 APPLIC DENTAL (11:41)
[2021-12-30 16:53] LABS: Glucose Point of Care 166 mg/dL (70-110)
[2021-12-30] MEDS: insulin lispro 100 unit/1 mL SUBCUT ×2 (17:35→21:24)
[2021-12-30] MEDS: potassium chloride ER 20 mEq Tablet 40 MEQ PO (17:36)
[2021-12-30] MEDS: pramipexole 0.25 mg Tablet 1 MG PO (21:09)
[2021-12-30 21:28] LABS: Glucose Point of Care 223 mg/dL (70-110)
[2021-12-31] VITALS (8 sets, daily range): BP systolic 108–149; BP diastolic 58–90; PULSE 63–82; RESP 17–20; TEMP 36.6–36.8; O2SAT 91–95
[2021-12-31] MEDS: bumetanide 0.25 mg/mL SDV 10 mL 1 MG IVP ×3 (01:07→17:44)
[2021-12-31] MEDS: polyethylene glycol 3350 Pkt 17 gm PO (01:19)
[2021-12-31 02:12] LABS: Basophils % 0.3 %; Eosinophils # 0.1 10^3/uL (0.0-0.8); Eosinophils % 0.7 %; Hematocrit 41.2 % (37.0-47.0); Hemoglobin 12.2 g/dL (11.5-15.3); Lymphocytes # 1.4 10^3/uL (0.8-4.8); Lymphocytes % 9.6 %; Mean Corpuscular HGB Conc 29.6 g/dL (30.0-36.0); Mean Corpuscular Hemoglobin 22.5 pg (28.0-34.0); Mean Corpuscular Volume 75.9 fl (81-99); Mean Platelet Volume 10.4 fL (7.4-10.4); Monocytes # 1.6 10^3/uL (0.2-0.9); Monocytes % 10.7 %; Neutrophils # 11.45 10^3/uL (1.8-7.7); Neutrophils % 77.7 %; Nucleated Red Blood Cells % 0 %; Platelet Count 326 10^3/cmm (130-400); Red Blood Count 5.43 10^6/uL (4.1-5.3); Red Cell Distribution Width 18.4 % (12.1-15.1); White Blood Count 14.7 10^3/uL (4.0-10.0)
[2021-12-31 02:36] LABS: Alanine Aminotransferase 20 U/L (0-33); Albumin Level 3.6 g/dL (3.5-5.2); Alkaline Phosphatase 117 U/L (35-105); Anion Gap 19.1 (5-19); Aspartate Amino Transferase 10 U/L (0-32); Blood Urea Nitrogen 47 mg/dL (8-23); Calcium 9.3 mg/dL (8.5-10.5); Carbon Dioxide 28 mmol/L (22-29); Chloride 92 mmol/L (98-107); Globulin 3.3 g/dL (1.3-4.6); Glomerular Filtration Rate 29.8 mL/min (90-130); Glucose 148 mg/dL (65-115); Magnesium 2.6 mg/dL (1.7-2.3); Osmolality Calculated 297 mOsm/kg (285-295); Phosphorus 4.1 mg/dL (2.5-4.5); Potassium 3.1 mmol/L (3.5-5.1); Sodium 136 mmol/L (136-145); Total Bilirubin 0.5 mg/dL (0.15-1.2); Total Protein 6.9 g/dL (6.6-8.7)
[2021-12-31 02:39] LABS: Calcium 9.3 mg/dL (8.5-10.5)
[2021-12-31 02:43] LABS: Parathyroid Hormone 102.2 pg/mL (15-65)
[2021-12-31 02:51] LABS: 25 Hydroxy Vitamin D 21 ng/mL (30-100)
[2021-12-31] MEDS: heparin 5,000 unit/mL INJ 1 mL 5000 UNIT SUBCUT ×2 (04:02→17:19)
[2021-12-31] MEDS: levothyroxine 150 mcg Tablet PO (05:49)
[2021-12-31] MEDS: pantoprazole DR 40 mg Tablet PO (05:49)
[2021-12-31 07:07] LABS: Glucose Point of Care 114 mg/dL (70-110)
--- NOTE | 2021-12-31 07:33 | P.PN_ITS ---
Subjective Subjective: pt feels better. she does not want a restricted diet and does not want her diuretics decreased. no n/v/f/c/lam/d/itching. +orthopnea and AMOR Medications: Reviewed: Yes Medication Review Details: Current Medications Bumetanide (Bumetanide 0.25 Mg/Ml Sdv 10 Ml) 1 mg IVP Q8H [facility] Last Admin: 12/31/21 01:07 Dose: 1 mg Denture Adhesive (Fixodent 39 Gm Tube) 1 applic DENTAL PRN PRN PRN Reason: denture adhesive Last Admin: 12/30/21 11:41 Dose: 1 appful Dextrose (Dextrose 50% Syringe 50 Ml) 25 ml IVP ONCE PRN; Protocol PRN Reason: hypoglycemia protocol Dextrose (Dextrose 50% Syringe 50 Ml) 50 ml IVP PRN PRN; Protocol PRN Reason: hypoglycemia protocol Glucagon (Glucagon 1 Mg/Ml Inj 1 Ml) 1 mg IM ONCE PRN; Protocol PRN Reason: Adult Acute Hypoglycemia Prot. Heparin Sodium (Porcine) (Heparin 5,000 Unit/Ml Inj 1 Ml) 5,000 unit SUBCUT Q12H [facility] Last Admin: 12/31/21 04:02 Dose: 5,000 unit Dextrose (D5w) 500 mls @ 100 mls/hr IV ONCE PRN; Protocol PRN Reason: Adult Acute Hypoglycemia Prot Insulin Human Lispro (Insulin Lispro 100 Unit/1 Ml) 0 unit SUBCUT WM&BEDTIME S ; Protocol Last Admin: 12/30/21 21:24 Dose: 8 unit Levothyroxine Sodium (Levothyroxine 150 Mcg Tablet) 150 mcg PO QAM [facility] Last Admin: 12/31/21 05:49 Dose: 150 mcg Midodrine (Midodrine 5 Mg Tablet) 10 mg PO Q8H [facility] Last Admin: 12/31/21 04:03 Dose: Not Given Non-Formulary Medication ( Dexamethasone 1.5 Mg Tablet) 1.5 mg PO DAILY [facility] Last Admin: 12/30/21 09:02 Dose: 1.5 mg Pantoprazole Sodium (Pantoprazole Dr 40 Mg Tablet) 40 mg PO QAM [facility] Last Admin: 12/31/21 05:49 Dose: 40 mg Polyethylene Glycol (Polyethylene Glycol 3350 Pkt 17 Gm) 17 gm PO DAILY PRN PRN Reason: Constipation Last Admin: 12/31/21 01:19 Dose: 17 gm Pramipexole Dihydrochloride (Pramipexole 0.25 Mg Tablet) 1 mg PO BEDTIME RAMIRO Last Admin: 12/30/21 21:09 Dose: 1 mg Pregabalin (Pregabalin 150 Mg Capsule) 150 mg PO BID [facility]IRO Last Admin: 12/30/21 17:36 Dose: 150 mg Vitals/I&O/Wt Last Vital Signs Temp 98.2 F 12/31/21 03:25 Pulse 66 12/31/21 06:00 Resp 17 12/31/21 03:25 BP 125/71 12/31/21 03:25 Pulse Ox 94 12/31/21 03:25 O2 Del Method 12/31/21 03:25 12/30/21 12/31/21 12/31/21 22:59 06:59 14:59 Output Total 1300 / 4600 950 / 5550 Balance -1300 / -4495 -950 / -5445 Weight last 48 hrs Weight 149.912 kg Weight 152.09 kg Physical Exam Narrative: obese, good uop vs stable heent- nc/at, eomi, anicteric neck no jvp lungs dull bases heart reg abd soft, nt, nd ext b/l 2+ edema neuro- a,a, o x 3 Urinary Catheter Management: Zurita: Cath Placed During This Visit: yes Reason for Continuing Indwelling Catheter: Acute Urinary Retention or Obstruc tion Urinary Catheter Date of Insertion: 12/29/21 Urinary Catheter Time of Insertion: 11:30 Data : 12/31/21 01:48 12/31/21 01:48 Micro: Microbiology 12/29/21 16:04 Blood Culture - Preliminary Blood NEGATIVE TO DATE 12/29/21 16:00 Blood Culture - Preliminary Blood NEGATIVE TO DATE A&P Assessment and plan (1) Acute kidney injury superimposed on CKD: see below Plan seen via telemedicine with assistance of RN at chairside 71 yr old female w/ history of diastolic heart failure, paroxysmal atrial fibrillation, and 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 She is maintained on dexamethasone 1 mg p.o. daily.? Pt was admitted w/ hypotension and RODRIGUE 1. Acute kidney injury- she was taking entresto and jardiance. Possibly prerenal. -also 30 lb weight gain- concern for CRS -consider repeat echo -excellent diuresis -monitor uop and chem 7 - would dec bumex 2. replace k and mag as needed 3. bp improving discussed w/ pt renal will see prn as pt requests that hospitalist adjust meds, diuretics, electrolytes, and diet time spent 25 min Attestations Medical Necessity Statement*: per hospitalist Time Spent in Patient Care: 16 - 35 minutes (>than 50% of time spent in cou nselling and/or direct pt care on unit) . Coding Level of Care Code Acute Information Technology Associate for Duarte Molina Diagnoses Acute kidney injury superimposed on CKD N17.9; N18.9
[2021-12-31] MEDS: ondansetron 2 mg/ML SDV 2 mL 4 MG IVP (09:19)
[2021-12-31] MEDS: pregabalin 150 mg Capsule PO ×2 (10:04→17:18)
[2021-12-31] MEDS: potassium chloride ER 20 mEq Tablet 40 MEQ PO ×2 (10:04→20:26)
[2021-12-31] MEDS: meclizine 25 mg tablet PO (10:18)
[2021-12-31] MEDS: metOLazone 5 MG Tablet PO (10:41)
[2021-12-31] MEDS: cefdinir 300 MG CAPSULE PO ×2 (10:41→20:26)
[2021-12-31 11:34] LABS: Glucose Point of Care 150 mg/dL (70-110)
--- NOTE | 2021-12-31 12:17 | PM.PN ---
Subjective Subjective: Patient was seen this morning, I was told by nursing staff that she had fired the night doctor, I was also called by nephrology, saying the patient does not want nephrology to see her, she tells me that she is doing better, but she continues to have edema, she wants us to diurese her more, no fevers, no chills, she is also worried about the redness of her bilateral shins, she wants to see if we would start her on cefdinir as she gets cellulitis with open sores Vitals/I&O/Wt Last Vital Signs Temp 97.9 F 12/31/21 12:00 Pulse 71 12/31/21 12:00 Resp 17 12/31/21 12:00 BP 121/59 12/31/21 12:00 Pulse Ox 95 12/31/21 12:00 O2 Del Method 12/31/21 12:00 12/30/21 12/31/21 12/31/21 22:59 06:59 14:59 Output Total 1300 / 4600 950 / 5550 Balance -1300 / -4495 -950 / -5445 Weight last 48 hrs Weight 149.912 kg Weight 152.09 kg Physical Exam Const: COMMON NORMALS: no acute distress and patient oriented x3 Resp: COMMON NORMALS: normal respiratory effort, No retractions, No use of accessory muscles and clear to auscultation bilaterally AUSCULTATION: clear to auscultation bilaterally Cardio: COMMON NORMALS: regular rate, regular rhythm, S1 normal heart sound present and S2 normal heart sound present RATE: regular rate RHYTHM: regular rhythm HEART SOUNDS: S1 normal heart sound present and S2 normal heart sound present GI: COMMON NORMALS: Normal to inspection, nondistended, normoactive bowel sounds present and non-tender Extremity: NARRATIVE EXTREMITY EXAM: 2+ pitting edema, bilateral shins, slightly open sores, largest measuring 1 x 1 cm, slightly erythematous on the left Neuro: COMMON NORMALS: patient oriented x3 Psych: COMMON NORMALS: mental status grossly normal Urinary Catheter Management: Zurita: Cath Placed During This Visit: yes Reason for Continuing Indwelling Catheter: Acute Urinary Retention or Obstruction Urinary Catheter Date of Insertion: 12/29/21 Urinary Catheter Time of Insertion: 11:30 Data : 12/31/21 01:48 12/31/21 01:48 Micro: Microbiology 12/29/21 16:04 Blood Culture - Preliminary Blood NEGATIVE TO DATE 12/29/21 16:00 Blood Culture - Preliminary Blood NEGATIVE TO DATE A&P Assessment and plan (1) Acute kidney injury superimposed on CKD: see below Plan (1) Light headedness: (2) Hypotension: (3) Volume overload: (4) Acute kidney injury superimposed on CKD: (5) Obesity, morbid, BMI 50 or higher: (6) Atrial fibrillation: Plan Fluid overload, anasarca, bilateral lower extremity edema -She has gained 30 pounds, weight today 334 pounds -Her dry weight is 300 pounds -She has bilateral 2+ pitting edema -Her baseline creatinine is anywhere between 1-1.6 --8 L -Blood pressures have responded to midodrine, hold for now -Plan -We will keep her on the general medical floors for now -Continue Bumex 1 mg every 8 hours, 1 dose of metolazone -Full code -Heparin for DVT prophylaxis Attestations Medical Necessity Statement*: Patient requires hospitalization for fluid overload, requiring inpatient diuresis Coding Level of Care Code Acute Training Project Manager for Demetriceg Fwd Diagnoses Acute kidney injury superimposed on CKD N17.9; N18.9
[2021-12-31] MEDS: insulin lispro 100 unit/1 mL SUBCUT ×3 (12:49→21:02)
[2021-12-31 17:01] LABS: Glucose Point of Care 161 mg/dL (70-110)
[2021-12-31] MEDS: pramipexole 0.25 mg Tablet 1 MG PO (20:26)
[2021-12-31 21:02] LABS: Glucose Point of Care 181 mg/dL (70-110)
[2022-01-01] VITALS (7 sets, daily range): BP systolic 115–150; BP diastolic 63–96; PULSE 60–87; RESP 15–18; TEMP 36.4–36.8; O2SAT 93–94; BMI 54.3
[2022-01-01] MEDS: bumetanide 0.25 mg/mL SDV 10 mL 1 MG IVP ×3 (02:12→17:25)
[2022-01-01] MEDS: heparin 5,000 unit/mL INJ 1 mL 5000 UNIT SUBCUT ×2 (04:59→16:43)
[2022-01-01] MEDS: pantoprazole DR 40 mg Tablet PO (04:59)
[2022-01-01] MEDS: levothyroxine 150 mcg Tablet PO (04:59)
[2022-01-01 05:37] LABS: Basophils # 0.1 10^3/uL (0.0-0.1); Basophils % 0.4 %; Eosinophils # 0.1 10^3/uL (0.0-0.8); Eosinophils % 0.9 %; Hematocrit 42.9 % (37.0-47.0); Hemoglobin 12.2 g/dL (11.5-15.3); Lymphocytes # 1.3 10^3/uL (0.8-4.8); Lymphocytes % 10.5 %; Mean Corpuscular HGB Conc 28.4 g/dL (30.0-36.0); Mean Corpuscular Hemoglobin 22.1 pg (28.0-34.0); Mean Corpuscular Volume 77.9 fl (81-99); Mean Platelet Volume 10.1 fL (7.4-10.4); Monocytes % 7.9 %; Neutrophils # 9.73 10^3/uL (1.8-7.7); Neutrophils % 78.9 %; Nucleated Red Blood Cells % 0 %; Platelet Count 280 10^3/cmm (130-400); Red Blood Count 5.51 10^6/uL (4.1-5.3); White Blood Count 12.3 10^3/uL (4.0-10.0)
[2022-01-01 05:57] LABS: Alanine Aminotransferase 18 U/L (0-33); Albumin Level 3.6 g/dL (3.5-5.2); Alkaline Phosphatase 125 U/L (35-105); Anion Gap 15.9 (5-19); Aspartate Amino Transferase 9 U/L (0-32); Blood Urea Nitrogen 43 mg/dL (8-23); Calcium 9.6 mg/dL (8.5-10.5); Carbon Dioxide 31 mmol/L (22-29); Chloride 90 mmol/L (98-107); Globulin 3.3 g/dL (1.3-4.6); Glomerular Filtration Rate 27.9 mL/min (90-130); Glucose 143 mg/dL (65-115); Magnesium 2.3 mg/dL (1.7-2.3); Osmolality Calculated 291 mOsm/kg (285-295); Phosphorus 4.2 mg/dL (2.5-4.5); Sodium 134 mmol/L (136-145); Total Bilirubin 0.4 mg/dL (0.15-1.2); Total Protein 6.9 g/dL (6.6-8.7)
[2022-01-01 06:03] LABS: Potassium 2.9 mmol/L (3.5-5.1)
[2022-01-01] MEDS: potassium chloride ER 20 mEq Tablet 60 MEQ PO (06:27)
[2022-01-01 08:07] LABS: Glucose Point of Care 122 mg/dL (70-110)
[2022-01-01] MEDS: polyethylene glycol 3350 Pkt 17 gm PO (08:50)
[2022-01-01] MEDS: pregabalin 150 mg Capsule PO ×2 (08:51→17:26)
[2022-01-01] MEDS: potassium chloride ER 20 mEq Tablet 40 MEQ PO ×2 (08:51→20:10)
[2022-01-01] MEDS: cefdinir 300 MG CAPSULE PO ×2 (08:56→21:06)
[2022-01-01] MEDS: metOLazone 5 MG Tablet PO (10:14)
[2022-01-01 11:34] LABS: Glucose Point of Care 153 mg/dL (70-110)
--- NOTE | 2022-01-01 11:48 | PC.SOCIAL ---
IMM update Imm page 2 updated with patient at bedside. Copy of page 2 provided. Patient verbalized understanding. Copy in chart initialed, dated and timed.
[2022-01-01] MEDS: insulin lispro 100 unit/1 mL SUBCUT ×3 (11:57→21:05)
--- NOTE | 2022-01-01 13:59 | PM.PN ---
Subjective Subjective: Patient was seen this morning, denies chest pain, no palpitations, her edema is improving Vitals/I&O/Wt Last Vital Signs Temp 98.2 F 01/01/22 12:00 Pulse 71 01/01/22 12:00 Resp 18 01/01/22 12:00 BP 115/75 01/01/22 12:00 Pulse Ox 94 01/01/22 12:00 O2 Del Method 01/01/22 12:00 12/31/21 01/01/22 01/01/22 22:59 06:59 14:59 Intake Total 200 / 200 480 / 480 Output Total 1350 / 1350 2350 / 3700 Balance -1350 / -1350 -2150 / -3500 480 / 480 Weight last 48 hrs Weight 147.962 kg Weight 149.912 kg Physical Exam Const: COMMON NORMALS: no acute distress and patient oriented x3 Neck/C-Spine: COMMON NORMALS: no JVD Resp: COMMON NORMALS: normal respiratory effort, No retractions, No use of accessory muscles and clear to auscultation bilaterally AUSCULTATION: clear to auscultation bilaterally Cardio: COMMON NORMALS: no JVD, regular rate, regular rhythm, S1 normal heart sound present and S2 normal heart sound present RATE: regular rate RHYTHM: regular rhythm HEART SOUNDS: S1 normal heart sound present and S2 normal heart sound present GI: COMMON NORMALS: Normal to inspection, nondistended, normoactive bowel sounds present, non-tender and no masses Extremity: NARRATIVE EXTREMITY EXAM: 1+ pitting edema Neuro: COMMON NORMALS: patient oriented x3 Psych: COMMON NORMALS: mental status grossly normal Urinary Catheter Management: Zurita: Cath Placed During This Visit: yes Reason for Continuing Indwelling Catheter: Accurate Measurement of Urinary Output in Critically Ill Patients Urinary Catheter Date of Insertion: 12/29/21 Urinary Catheter Time of Insertion: 11:30 Data : 01/01/22 05:00 01/01/22 05:00 A&P Assessment and plan (1) Acute kidney injury superimposed on CKD: see below Plan (1) Light headedness: (2) Hypotension: (3) Volume overload: (4) Acute kidney injury superimposed on CKD: (5) Obesity, morbid, BMI 50 or higher: (6) Atrial fibrillation: Plan Fluid overload, anasarca, bilateral lower extremity edema -She has gained 30 pounds, weight today 334 pounds -Her dry weight is 300 pounds -She has bilateral 1+ pitting edema -Her baseline creatinine is anywhere between 1-1.6 -11 L -Blood pressures have responded to midodrine, hold for now -Plan -We will keep her on the general medical floors for now -Continue Bumex 1 mg every 8 hours, 1 dose of metolazone -Full code -Heparin for DVT prophylaxis Attestations Medical Necessity Statement*: Patient requires hospital fluid overload Coding Level of Care Code Acute Senior Human Resources Representative for Demetriceg Fwd Diagnoses Acute kidney injury superimposed on CKD N17.9; N18.9
[2022-01-01 14:42] LABS: Estmated Average Glucose 117; Hemoglobin A1C 5.7 % (4.0-6.0)
[2022-01-01 16:58] LABS: Glucose Point of Care 151 mg/dL (70-110)
[2022-01-01 17:38] LABS: Anion Gap 16.5 (5-19); Blood Urea Nitrogen 45 mg/dL (8-23); Calcium 9.3 mg/dL (8.5-10.5); Carbon Dioxide 30 mmol/L (22-29); Chloride 91 mmol/L (98-107); Glomerular Filtration Rate 26.2 mL/min (90-130); Glucose 145 mg/dL (65-115); Osmolality Calculated 292 mOsm/kg (285-295); Potassium 3.5 mmol/L (3.5-5.1); Sodium 134 mmol/L (136-145)
[2022-01-01] MEDS: pramipexole 0.25 mg Tablet 1 MG PO (20:10)
[2022-01-01] MEDS: neomycin-poly-bacitracin oint 28 gm 1 APPLIC TOPICAL (20:15)
[2022-01-01 21:03] LABS: Glucose Point of Care 320 mg/dL (70-110)
[2022-01-02] VITALS (10 sets, daily range): BP systolic 104–148; BP diastolic 56–93; PULSE 58–84; RESP 12–18; TEMP 36.4–36.9; O2SAT 92–98
[2022-01-02] MEDS: bumetanide 0.25 mg/mL SDV 10 mL 1 MG IVP ×3 (01:21→17:18)
[2022-01-02] MEDS: heparin 5,000 unit/mL INJ 1 mL 5000 UNIT SUBCUT (04:22)
[2022-01-02] MEDS: pantoprazole DR 40 mg Tablet PO (05:42)
[2022-01-02] MEDS: levothyroxine 150 mcg Tablet PO (05:42)
[2022-01-02 05:47] LABS: Basophils # 0.1 10^3/uL (0.0-0.1); Basophils % 0.4 %; Eosinophils # 0.2 10^3/uL (0.0-0.8); Eosinophils % 1.5 %; Hematocrit 43.4 % (37.0-47.0); Hemoglobin 12.5 g/dL (11.5-15.3); Lymphocytes # 1.6 10^3/uL (0.8-4.8); Lymphocytes % 10.5 %; Mean Corpuscular HGB Conc 28.8 g/dL (30.0-36.0); Mean Corpuscular Hemoglobin 22.4 pg (28.0-34.0); Mean Corpuscular Volume 77.6 fl (81-99); Mean Platelet Volume 10.1 fL (7.4-10.4); Monocytes # 1.5 10^3/uL (0.2-0.9); Monocytes % 9.8 %; Neutrophils # 11.47 10^3/uL (1.8-7.7); Nucleated Red Blood Cells % 0 %; Platelet Count 291 10^3/cmm (130-400); Red Blood Count 5.59 10^6/uL (4.1-5.3); Red Cell Distribution Width 17.8 % (12.1-15.1); White Blood Count 15.1 10^3/uL (4.0-10.0)
[2022-01-02 06:05] LABS: Alanine Aminotransferase 19 U/L (0-33); Albumin Level 3.9 g/dL (3.5-5.2); Alkaline Phosphatase 123 U/L (35-105); Aspartate Amino Transferase 10 U/L (0-32); Blood Urea Nitrogen 41 mg/dL (8-23); Calcium 9.9 mg/dL (8.5-10.5); Carbon Dioxide 37 mmol/L (22-29); Chloride 89 mmol/L (98-107); Globulin 3.3 g/dL (1.3-4.6); Glomerular Filtration Rate 29.8 mL/min (90-130); Glucose 109 mg/dL (65-115); Magnesium 2.1 mg/dL (1.7-2.3); Osmolality Calculated 291 mOsm/kg (285-295); Phosphorus 3.9 mg/dL (2.5-4.5); Sodium 135 mmol/L (136-145); Total Bilirubin 0.4 mg/dL (0.15-1.2); Total Protein 7.2 g/dL (6.6-8.7)
[2022-01-02 06:57] LABS: Glucose Point of Care 101 mg/dL (70-110)
[2022-01-02] MEDS: potassium chloride ER 20 mEq Tablet 40 MEQ PO ×2 (09:39→20:09)
[2022-01-02] MEDS: pregabalin 150 mg Capsule PO ×2 (09:41→17:18)
[2022-01-02] MEDS: cefdinir 300 MG CAPSULE PO ×2 (09:45→22:01)
[2022-01-02 10:57] LABS: Glucose Point of Care 138 mg/dL (70-110)
[2022-01-02] MEDS: sacubitril/valsartan 24-26 mg Tablet 1 EACH PO ×2 (12:25→22:01)
[2022-01-02] MEDS: spironolactone 25 mg Tablet 12.5 MG PO (12:25)
[2022-01-02] MEDS: apixaban 5 mg Tablet PO ×2 (12:25→22:01)
[2022-01-02] MEDS: polyethylene glycol 3350 Pkt 17 gm PO (12:39)
--- NOTE | 2022-01-02 14:24 | PM.PN ---
Subjective Subjective: Patient was seen this morning, she continues to have lower extreme edema but is improving, still has some weeping edema on the left, she abraded but developing severe cellulitis, she wondering if vancomycin would be a viable option, she tells me that 2 of her home medications have not been started she takes Entresto twice daily started by her calculation clerk, I will Eliquis twice daily for history of atrial fibrillation Vitals/I&O/Wt Last Vital Signs Temp 97.9 F 01/02/22 11:51 Pulse 69 01/02/22 11:51 Resp 16 01/02/22 11:51 BP 126/77 01/02/22 11:51 Pulse Ox 92 01/02/22 11:51 O2 Del Method 01/02/22 11:51 01/01/22 01/02/22 01/02/22 22:59 06:59 14:59 Intake Total 240 / 720 640 / 1360 360 / 360 Output Total 2170 / 2170 1400 / 3570 Balance -1930 / -1450 -760 / -2210 360 / 360 Weight last 48 hrs Weight 147.962 kg Physical Exam Const: COMMON NORMALS: no acute distress and patient oriented x3 Resp: COMMON NORMALS: normal respiratory effort, No retractions, No use of accessory muscles and clear to auscultation bilaterally AUSCULTATION: clear to auscultation bilaterally Cardio: COMMON NORMALS: regular rate, regular rhythm, S1 normal heart sound present and S2 normal heart sound present RATE: regular rate RHYTHM: regular rhythm HEART SOUNDS: S1 normal heart sound present and S2 normal heart sound present GI: COMMON NORMALS: Normal to inspection, nondistended, normoactive bowel sounds present, non-tender and no masses Extremity: NARRATIVE EXTREMITY EXAM: 1+ pitting edema bilateral lower extremity, left lower extremity, areas of weeping edema Neuro: COMMON NORMALS: patient oriented x3 Psych: COMMON NORMALS: mental status grossly normal Urinary Catheter Management: Zurita: Cath Placed During This Visit: yes Reason for Continuing Indwelling Catheter: Other Urinary Catheter Date of Insertion: 12/29/21 Urinary Catheter Time of Insertion: 11:30 Data : 01/02/22 05:24 01/02/22 05:24 A&P Assessment and plan (1) Acute kidney injury superimposed on CKD: see below Plan (1) Light headedness: (2) Hypotension: (3) Volume overload: (4) Acute kidney injury superimposed on CKD: (5) Obesity, morbid, BMI 50 or higher: (6) Atrial fibrillation: Plan Fluid overload, anasarca, bilateral lower extremity edema -She has gained 30 pounds, weight today 334 pounds -Her dry weight is 300 pounds -She has bilateral 1+ pitting edema -Her baseline creatinine is anywhere between 1-1.6 -13.6 L -Blood pressures have responded to midodrine, hold for now -Continue home Entresto, monitor GFR closely -Continue home Eliquis, monitor GFR closely -We will keep her on the general medical floors -Continue Bumex 1 mg every 8 hours, -Start Aldactone -Full code -Heparin for DVT prophylaxis Attestations Medical Necessity Statement*: Patient requires hospitalization for volume overload Coding Level of Care Code Acute Horticulture Supervisor for Duarte Fwnata Diagnoses Acute kidney injury superimposed on CKD N17.9; N18.9
[2022-01-02 16:10] LABS: Anion Gap 15.9 (5-19); Blood Urea Nitrogen 44 mg/dL (8-23); Calcium 9.8 mg/dL (8.5-10.5); Carbon Dioxide 31 mmol/L (22-29); Chloride 89 mmol/L (98-107); Glucose 140 mg/dL (65-115); Osmolality Calculated 289 mOsm/kg (285-295); Sodium 133 mmol/L (136-145)
[2022-01-02 16:37] LABS: Potassium 2.9 mmol/L (3.5-5.1)
[2022-01-02 16:57] LABS: Glucose Point of Care 163 mg/dL (70-110)
[2022-01-02] MEDS: insulin lispro 100 unit/1 mL SUBCUT ×2 (17:18→20:49)
[2022-01-02] MEDS: potassium chloride ER 20 mEq Tablet PO (17:22)
[2022-01-02] MEDS: pramipexole 0.25 mg Tablet 1 MG PO (20:10)
[2022-01-02 20:45] LABS: Glucose Point of Care 201 mg/dL (70-110)
[2022-01-03] VITALS (12 sets, daily range): BP systolic 67–118; BP diastolic 42–78; PULSE 59–107; RESP 16–18; TEMP 36.4–36.8; O2SAT 91–96
[2022-01-03] MEDS: levothyroxine 150 mcg Tablet PO (05:02)
[2022-01-03] MEDS: pantoprazole DR 40 mg Tablet PO (05:02)
[2022-01-03 06:40] LABS: Glucose Point of Care 166 mg/dL (70-110)
[2022-01-03 09:36] LABS: Blood Urea Nitrogen 58 mg/dL (8-23); Calcium 8.9 mg/dL (8.5-10.5); Carbon Dioxide 26 mmol/L (22-29); Chloride 89 mmol/L (98-107); Glomerular Filtration Rate 17.5 mL/min (90-130); Glucose 98 mg/dL (65-115); Osmolality Calculated 284 mOsm/kg (285-295); Sodium 129 mmol/L (136-145)
[2022-01-03 09:42] LABS: Anion Gap 17.8 (5-19); Potassium 3.8 mmol/L (3.5-5.1)
--- NOTE | 2022-01-03 09:52 | PM.PN ---
Subjective Subjective: Seen this morning. Reported by nursing staff that patient's blood pressure was apparently 67/47. She was given Entresto earlier this morning and her spironolactone. These were restarted yesterday evening. Patient is currently getting dexamethasone 1 mg daily. Patient felt slightly lightheaded. She has had 2 L urine output since yesterday. Total 16 L negative since admission. Vitals/I&O/Wt Last Vital Signs Temp 97.5 F L 01/03/22 08:00 Pulse 62 01/03/22 08:00 Resp 16 01/03/22 08:00 BP 67/42 01/03/22 08:00 Pulse Ox 95 01/03/22 08:00 O2 Del Method 01/03/22 08:00 01/02/22 01/03/22 01/03/22 22:59 06:59 14:59 Intake Total 240 / 240 Output Total 2500 / 2500 200 / 2700 Balance -2500 / -2140 -200 / -2340 240 / 240 Weight last 48 hrs Weight 149.867 kg Physical Exam Const: COMMON NORMALS: no acute distress and patient oriented x3 Resp: COMMON NORMALS: normal respiratory effort, No retractions, No use of accessory muscles and clear to auscultation bilaterally AUSCULTATION: clear to auscultation bilaterally Cardio: COMMON NORMALS: regular rate, regular rhythm, S1 normal heart sound present and S2 normal heart sound present RATE: regular rate RHYTHM: regular rhythm HEART SOUNDS: S1 normal heart sound present and S2 normal heart sound present GI: COMMON NORMALS: Normal to inspection, nondistended, normoactive bowel sounds present, non-tender and no masses Extremity: NARRATIVE EXTREMITY EXAM: 1+ pitting edema bilateral lower extremity, left lower extremity, areas of weeping edema Neuro: COMMON NORMALS: patient oriented x3 Psych: COMMON NORMALS: mental status grossly normal Urinary Catheter Management: Zurita: Cath Placed During This Visit: yes Reason for Continuing Indwelling Catheter: Other Urinary Catheter Date of Insertion: 12/29/21 Urinary Catheter Time of Insertion: 11:30 Data : 01/02/22 05:24 01/03/22 08:59 A&P Assessment and plan (1) Acute kidney injury superimposed on CKD: see below Plan (1) Light headedness: (2) Hypotension: (3) Volume overload: (4) Acute kidney injury superimposed on CKD: (5) Obesity, morbid, BMI 50 or higher: (6) Atrial fibrillation: Plan Fluid overload, anasarca, bilateral lower extremity edema -She has gained 30 pounds, weight today 334 pounds -Her dry weight is 300 pounds -She has bilateral 1+ pitting edema -Her baseline creatinine is anywhere between 1-1.6 --15.9L -Blood pressures low today. Restart midodrine 10 3 times daily. Hold Entresto, hold spironolactone. Hold Bumex at this time. Give patient normal saline bolus 500 cc x 1. ? Hydrocortisone 100 twice daily today for stress dose. Will place on 50 every 6 x48 hours. Eventually transition to maintenance dose. ? Continue Eliquis. ? Discussed with patient that she will need Levophed and transferred to ICU. Patient refused ICU transfer at first and refused to have Levophed on board. She wanted to try IV fluids, midodrine, hydrocortisone before we went ahead with Levophed. I discussed with patient extensively. IV fluids have been given midodrine has been administered hydrocortisone has been ordered. Blood pressure is 89/56. Patient has agreed to go to ICU for further monitoring and care at this point. She continues to refuse Levophed if needed for now. -Continue home Eliquis, monitor GFR closely Hold Bumex 1 mg every 8 hours, will give patient a break from diuretics today. We will restart diuresis tomorrow. Creatinine 2.7 today. Yesterday 1.8. Continue to monitor levels for now. -Full code -Heparin for DVT prophylaxis Discussed with patient the implications of low blood pressure for prolonged periods of time including renal injury, stroke etc. Patient at this time refusing vasopressor. We will continue to monitor her. However I will transfer her to the ICU for closer monitoring in case she changes her mind and medication needs to be administered. Attestations Medical Necessity Statement*: Patient requires hospitalization for volume overload Coding Level of Care Code Acute Picture Frame Maker for Duarte Molina Diagnoses Acute kidney injury superimposed on CKD N17.9; N18.9
[2022-01-03] MEDS: cefdinir 300 MG CAPSULE PO ×2 (10:11→21:59)
[2022-01-03] MEDS: lactulose oral liq 20 gm/30 mL UDC PO ×2 (10:11→17:31)
[2022-01-03] MEDS: insulin lispro 100 unit/1 mL SUBCUT ×3 (10:11→22:00)
[2022-01-03] MEDS: spironolactone 25 mg Tablet 12.5 MG PO (10:12)
[2022-01-03] MEDS: midodrine 5 mg TABLET 10 MG PO ×2 (10:12→17:31)
[2022-01-03] MEDS: pregabalin 150 mg Capsule PO ×2 (10:13→17:31)
[2022-01-03] MEDS: apixaban 5 mg Tablet PO ×2 (10:13→22:00)
[2022-01-03] MEDS: potassium chloride ER 20 mEq Tablet 40 MEQ PO ×2 (10:13→20:56)
[2022-01-03] MEDS: sodium chloride 0.9% 500 ML 999 ML IV (10:32)
[2022-01-03 11:16] LABS: Glucose Point of Care 130 mg/dL (70-110)
[2022-01-03] MEDS: hydrocortisone 100 mg/2 mL SDV IVP (13:49)
[2022-01-03 16:58] LABS: Glucose Point of Care 204 mg/dL (70-110)
[2022-01-03] MEDS: pramipexole 0.25 mg Tablet 1 MG PO (20:56)
[2022-01-03 21:37] LABS: Glucose Point of Care 275 mg/dL (70-110)
[2022-01-04] VITALS (9 sets, daily range): BP systolic 91–151; BP diastolic 60–90; PULSE 52–86; RESP 16–18; TEMP 36.3–36.7; O2SAT 90–95
[2022-01-04] MEDS: midodrine 5 mg TABLET 10 MG PO ×3 (01:29→18:51)
[2022-01-04] MEDS: lactulose oral liq 20 gm/30 mL UDC PO (01:30)
[2022-01-04] MEDS: hydrocortisone 100 mg/2 mL SDV IVP (01:49)
[2022-01-04] MEDS: pantoprazole DR 40 mg Tablet PO (05:21)
[2022-01-04] MEDS: levothyroxine 150 mcg Tablet PO (05:21)
[2022-01-04 05:47] LABS: Anion Gap 16.5 (5-19); Blood Urea Nitrogen 53 mg/dL (8-23); Calcium 9.4 mg/dL (8.5-10.5); Carbon Dioxide 25 mmol/L (22-29); Chloride 94 mmol/L (98-107); Glomerular Filtration Rate 24.7 mL/min (90-130); Glucose 153 mg/dL (65-115); Magnesium 2.5 mg/dL (1.7-2.3); Osmolality Calculated 291 mOsm/kg (285-295); Potassium 3.5 mmol/L (3.5-5.1); Sodium 132 mmol/L (136-145)
[2022-01-04 06:51] LABS: Glucose Point of Care 181 mg/dL (70-110)
[2022-01-04] MEDS: insulin lispro 100 unit/1 mL SUBCUT ×4 (08:43→22:26)
[2022-01-04] MEDS: potassium chloride ER 20 mEq Tablet 40 MEQ PO ×2 (08:44→22:16)
[2022-01-04] MEDS: pregabalin 150 mg Capsule PO ×2 (08:44→18:51)
[2022-01-04] MEDS: spironolactone 25 mg Tablet 12.5 MG PO (08:45)
[2022-01-04] MEDS: apixaban 5 mg Tablet PO ×2 (08:47→22:26)
[2022-01-04] MEDS: cefdinir 300 MG CAPSULE PO ×2 (08:51→22:29)
[2022-01-04 11:22] LABS: Glucose Point of Care 203 mg/dL (70-110)
[2022-01-04] MEDS: hydrocortisone 100 mg/2 mL SDV 50 MG IVP (12:25)
--- NOTE | 2022-01-04 14:40 | USCV_ITS ---
Carolyn Alexander Age: 71 Gender: F : 1950 Exam Date: 01/04/2022 15:01 Ordering Phys: Ewelina Esqueda MD Technologist: Rajendra Toure Exam Location: [facility] [place] Indication: ? ef chest pain BP: 134 / 76 HR: 63 Rhythm: Sinus Technical Quality: Adequate MEASUREMENTS (Male / Female) Normal Values 2D ECHO LV Diastolic Diameter PLAX 3.7 cm 4.2 - 5.9 / 3.9 - 5.3 cm LV Systolic Diameter PLAX 2.8 cm IVS Diastolic Thickness 1.3 cm 0.6 - 1.0 / 0.6 - 0.9 cm IVS Systolic Thickness 1.8 cm LVPW Diastolic Thickness 1.5 cm 0.6 - 1.0 / 0.6 - 0.9 cm LVPW Systolic Thickness 1.8 cm LVOT Diameter 2.0 cm LV Ejection Fraction 2D Teich 52.0 % LV Ejection Fraction MOD 2C 70.8 % LV Ejection Fraction 2C AL 70.9 % LA Diameter 3.9 cm M-MODE Aortic Annulus Diameter 3.5 cm LA Ao Ratio MM 1.1 MV E Point Septal Separation 0.9 cm FINDINGS Left Ventricle Normal left ventricular cavity size. Increased left ventricular wall thickness. Normal left ventricular systolic function. Left ventricular ejection fraction is estimated at 65 %. No regional wall motion abnormalities. Right Ventricle Normal right ventricular size and systolic function. Right Atrium Right atrium not well visualized. Left Atrium Normal left atrial size. Mitral Valve Structurally normal mitral valve. Aortic Valve Aortic valve not well visualized. Tricuspid Valve Tricuspid valve not well visualized. Pulmonic Valve Pulmonic valve not well visualized. Pericardium No pericardial effusion. Aorta Normal size aortic root and proximal ascending aorta. IVC Inferior vena cava not visualized. CONCLUSIONS 1. Normal left ventricular cavity size and systolic function. Mild concentric left ventricular hypertrophy. Left ventricular ejection fraction is estimated at 65 %. No regional wall motion abnormalities. 2. Normal right ventricular size and systolic function. 3. No significant change when compared to study dated 02/12/21. Jaki Leavitt MD (Electronically Signed) Final Date: 04 January 2022 20:52 S
--- NOTE | 2022-01-04 14:44 | PM.PN ---
Subjective Subjective: Seen this AM. No acute events overnight. Blood pressure is better after stress to steroids. Patient 17 L negative. Urine output 1300 overnight. Continue to hold Entresto. Patient feels a lot better compared to before. She does complain of experiencing chest tightness today. I have ordered troponin series and EKG. She says the chest tightness comes on at rest and there are no exacerbating or alleviating factors. Vitals/I&O/Wt Last Vital Signs Temp 97.3 F L 01/04/22 12:00 Pulse 61 01/04/22 12:00 Resp 16 01/04/22 12:00 BP 123/68 01/04/22 12:00 Pulse Ox 94 01/04/22 12:00 O2 Del Method 01/04/22 12:00 01/03/22 01/04/22 01/04/22 22:59 06:59 14:59 Intake Total 240 / 720 200 / 920 0 / 0 Output Total 900 / 900 850 / 1750 Balance -660 / -180 -650 / -830 0 / 0 Weight last 48 hrs Weight 149.867 kg Physical Exam Const: COMMON NORMALS: no acute distress and patient oriented x3 Resp: COMMON NORMALS: normal respiratory effort, No retractions, No use of accessory muscles and clear to auscultation bilaterally AUSCULTATION: clear to auscultation bilaterally Cardio: COMMON NORMALS: regular rate, regular rhythm, S1 normal heart sound present and S2 normal heart sound present RATE: regular rate RHYTHM: regular rhythm HEART SOUNDS: S1 normal heart sound present and S2 normal heart sound present GI: COMMON NORMALS: Normal to inspection, nondistended, normoactive bowel sounds present, non-tender and no masses Extremity: NARRATIVE EXTREMITY EXAM: 1+ pitting edema bilateral lower extremity, left lower extremity, areas of weeping edema Neuro: COMMON NORMALS: patient oriented x3 Psych: COMMON NORMALS: mental status grossly normal Urinary Catheter Management: Zurita: Cath Placed During This Visit: yes Reason for Continuing Indwelling Catheter: Acute Urinary Retention or Obstruction Urinary Catheter Date of Insertion: 12/29/21 Urinary Catheter Time of Insertion: 11:30 Data : 01/02/22 05:24 01/04/22 05:00 Micro: Microbiology 12/29/21 16:04 Blood Culture - Final Blood NO GROWTH AFTER 5 DAYS 10/05/22 16:00 Blood Culture - Final Blood NO GROWTH AFTER 5 DAYS A&P Assessment and plan (1) Acute kidney injury superimposed on CKD: see below Plan (1) Light headedness: (2) Hypotension: (3) Volume overload: (4) Acute kidney injury superimposed on CKD: (5) Obesity, morbid, BMI 50 or higher: (6) Atrial fibrillation: (7) chest tightness Plan Fluid overload, anasarca, bilateral lower extremity edema -She has gained 30 pounds as outpatient. -Her dry weight is 300 pounds -She has bilateral 1+ pitting edema -Her baseline creatinine is anywhere between 1-1.6 -17 L ? Stress dose steroids given to her yesterday. We will continue with Solu-Cortef 50 twice daily today. Starting tomorrow we will put her on hydrocortisone orally 30 mg in a.m. and 15 mg at p.m. ? Check serial EKGs, troponin series. Patient complains of chest tightness that comes and goes. We will check echo for wall motion abnormalities. ? Continue Eliquis. ? Check BNP today. ? Restart patient's diuretics. Bumex 1 mg IV twice daily. ? Creatinine better today. Down to 2.0. Was 2.7 yesterday. -Continue home Eliquis, monitor GFR closely -Continue midodrine. Hold Entresto. ? We will check stress test in a.m. Continue to monitor levels for now. -Full code -Heparin for DVT prophylaxis Attestations Medical Necessity Statement*: Patient requires hospitalization for volume overload Coding Level of Care Code Acute Breastfeeding Peer Counselor for [facility] Fwd Diagnoses Acute kidney injury superimposed on CKD N17.9; N18.9
--- NOTE | 2022-01-04 14:51 | ECG_ITS ---
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 Measurements Intervals [place] Rate: 60 P: 74 LA: 157 QRS: 4 QRSD: 92 T: 61 QT: 396 QTc: 397 Interpretive Statements SINUS RHYTHM POSSIBLE ANTERIOR MYOCARDIAL INFARCTION , OF INDETERMINATE AGE [30 ms Q WAVE IN V3/V4, OR R < 0.2 mV IN V4] Compared to ECG 12/28/2021 23:33:18 Myocardial infarct finding now present Electronically Signed On 01-05-2022 8:21:39 CDT by Bahman Rowland M.D. [email or web address].Stereotaxismer[facility] health natchezSensingStripavita [facility].[employer]/store/[id number]
--- NOTE | 2022-01-04 14:57 | ECG_ITS ---
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 Measurements Intervals [place] Rate: 63 P: 59 DC: 147 QRS: -20 QRSD: 102 T: 53 QT: 434 QTc: 445 Interpretive Statements SINUS RHYTHM LOW QRS VOLTAGE IN PRECORDIAL LEADS [QRS DEFLECTION < 1.0 mV IN CHEST LEADS] POSSIBLE ANTERIOR MYOCARDIAL INFARCTION , OF INDETERMINATE AGE [30 ms Q WAVE IN V3/V4, OR R < 0.2 mV IN V4] MARKED ST ELEVATION, CONSIDER INFERIOR INJURY [MARKED ST ELEVATION W/O NORMALLY INFLECTED T-WAVE IN II/aVF] ACUTE SD Compared to ECG 01/04/2022 14:51:42 Low QRS voltage now present ST (T wave) deviation now present Myocardial infarct finding still present Electronically Signed On 01-05-2022 8:21:47 CDT by Bahman Rowland M.D. [email or web address]/[id number]
[2022-01-04 15:22] LABS: Troponin(5th) Baseline 13 ng/L (0-10)
[2022-01-04] MEDS: perflutren protein-a microsphr 0.22 mg/mL SDV 3 mL IV (15:44)
[2022-01-04] MEDS: bumetanide 0.25 mg/mL SDV 4 mL 1 MG IVP (15:54)
[2022-01-04 17:13] LABS: Glucose Point of Care 211 mg/dL (70-110)
[2022-01-04 17:24] LABS: Troponin 5 2HR 11.35 ng/L (0-10); Troponin 5 2HR Delta -1.65 ABS# (0-10)
--- NOTE | 2022-01-04 18:34 | ECG_ITS ---
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 Measurements Intervals [place] Rate: 67 P: 54 ND: 154 QRS: -61 QRSD: 110 T: 52 QT: 350 QTc: 371 Interpretive Statements SINUS RHYTHM WITH MARKED SINUS ARRHYTHMIA LEFT AXIS DEVIATION [QRS AXIS < -30] POSSIBLE ANTERIOR MYOCARDIAL INFARCTION , OF INDETERMINATE AGE [30 ms Q WAVE IN V3/V4, OR R < 0.2 mV IN V4] Compared to ECG 01/04/2022 16:55:57 Left-axis deviation now present Myocardial infarct finding now present Sinus bradycardia no longer present T-wave abnormality no longer present Electronically Signed On 01-05-2022 8:23:01 CDT by Bahman Rowland M.D. [email or web address].[facility].[employer]/store/[id number]
--- NOTE | 2022-01-04 20:45 | ECG_ITS ---
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 Measurements Intervals [place] Rate: 59 P: 67 UT: 155 QRS: -11 QRSD: 106 T: 44 QT: 390 QTc: 387 Interpretive Statements SINUS BRADYCARDIA NONSPECIFIC T-WAVE ABNORMALITY Compared to ECG 01/04/2022 14:57:08 T-wave abnormality now present Sinus rhythm no longer present Myocardial infarct finding no longer present ST (T wave) deviation no longer present Electronically Signed On 01-05-2022 8:22:42 CDT by Bahman Rowland M.D. [email or web address].Social Club Hubbolivar medical centerTailgate Technologiesohiohealth [facility].[employer]./store/[id number]
[2022-01-04 21:26] LABS: Troponin 5 6HR 12.16 ng/L (0-10)
[2022-01-04 21:31] LABS: Troponin 5 6HR Delta -0.84 ng/L (0-12)
[2022-01-04 21:50] LABS: Glucose Point of Care 161 mg/dL (70-110)
[2022-01-04] MEDS: pramipexole 0.25 mg Tablet 1 MG PO (22:15)
[2022-01-05] VITALS (10 sets, daily range): BP systolic 111–155; BP diastolic 65–93; PULSE 50–91; RESP 16–18; TEMP 36.5–36.8; O2SAT 93–96
[2022-01-05] MEDS: bumetanide 0.25 mg/mL SDV 4 mL 1 MG IVP ×2 (02:41→12:16)
[2022-01-05] MEDS: midodrine 5 mg TABLET 10 MG PO ×3 (02:41→17:02)
--- NOTE | 2022-01-05 03:56 | PC.NURSE ---
Pt is in chair and resting, Pt used the bathroom and said she had some trouble with constipation, Blood in stool, call light in reach, walker in reach
[2022-01-05] MEDS: hydrocortisone 10 mg Tablet 30 MG PO (05:38)
[2022-01-05] MEDS: pantoprazole DR 40 mg Tablet PO (05:40)
[2022-01-05] MEDS: levothyroxine 150 mcg Tablet PO (05:40)
[2022-01-05 06:44] LABS: Glucose Point of Care 101 mg/dL (70-110)
[2022-01-05 08:59] LABS: Blood Urea Nitrogen 45 mg/dL (8-23); Calcium 9.6 mg/dL (8.5-10.5); Carbon Dioxide 26 mmol/L (22-29); Chloride 95 mmol/L (98-107); Glomerular Filtration Rate 34.4 mL/min (90-130); Glucose 100 mg/dL (65-115); Osmolality Calculated 294 mOsm/kg (285-295); Sodium 136 mmol/L (136-145)
[2022-01-05] MEDS: spironolactone 25 mg Tablet 12.5 MG PO (09:31)
[2022-01-05] MEDS: cefdinir 300 MG CAPSULE PO ×2 (09:32→22:03)
[2022-01-05] MEDS: pregabalin 150 mg Capsule PO (09:32)
[2022-01-05] MEDS: potassium chloride ER 20 mEq Tablet 40 MEQ PO ×2 (09:35→20:23)
--- NOTE | 2022-01-05 11:52 | PC.SOCIAL ---
Imm update Imm updated with patient at bedside. Copy of page 2 provided. Patient verbalized understanding. Copy in chart initialed, dated and timed.
[2022-01-05 11:59] LABS: Glucose Point of Care 164 mg/dL (70-110)
[2022-01-05] MEDS: insulin lispro 100 unit/1 mL SUBCUT ×2 (12:15→17:54)
[2022-01-05] MEDS: apixaban 5 mg Tablet PO (12:15)
--- NOTE | 2022-01-05 16:37 | PM.PN ---
Subjective Subjective: Seen this morning. Urine output 4 L in last 24 hours. Patient is 19 L negative since admission. No longer having chest tightness or pain. He says she feels a lot better today. Troponin series unremarkable. Delta troponin negative. She had a recent stress test 2 months ago and it was normal as per patient. She would not like to do any further cardiac work-up at this time. Echo checked with no gross wall motion abnormalities at this time. Vitals/I&O/Wt Last Vital Signs Temp 97.7 F 01/05/22 15:57 Pulse 81 01/05/22 15:57 Resp 18 01/05/22 15:57 BP 122/71 01/05/22 15:57 Pulse Ox 96 01/05/22 15:57 O2 Del Method 01/05/22 15:57 01/05/22 01/05/22 01/05/22 06:59 14:59 22:59 Intake Total 0 / 0 Output Total 1600 / 4100 1300 / 1300 Balance -1600 / -4100 -1300 / -1300 Weight last 48 hrs Weight 149.317 kg Physical Exam Const: COMMON NORMALS: no acute distress and patient oriented x3 Resp: COMMON NORMALS: normal respiratory effort, No retractions, No use of accessory muscles and clear to auscultation bilaterally AUSCULTATION: clear to auscultation bilaterally Cardio: COMMON NORMALS: regular rate, regular rhythm, S1 normal heart sound present and S2 normal heart sound present RATE: regular rate RHYTHM: regular rhythm HEART SOUNDS: S1 normal heart sound present and S2 normal heart sound present GI: COMMON NORMALS: Normal to inspection, nondistended, normoactive bowel sounds present, non-tender and no masses Extremity: NARRATIVE EXTREMITY EXAM: 1+ pitting edema bilateral lower extremity, left lower extremity, areas of weeping edema Neuro: COMMON NORMALS: patient oriented x3 Psych: COMMON NORMALS: mental status grossly normal Urinary Catheter Management: Zurita: Cath Placed During This Visit: yes Reason for Continuing Indwelling Catheter: Accurate Measurement of Urinary Output in Critically Ill Patients Urinary Catheter Date of Insertion: 12/29/21 Urinary Catheter Time of Insertion: 11:30 Data : 01/02/22 05:24 01/05/22 07:57 Micro: Microbiology 01/02/22 17:00 MRSA Culture - Final Nose A&P Assessment and plan (1) Acute kidney injury superimposed on CKD: see below Plan (1) Light headedness: (2) Hypotension: (3) Volume overload: (4) Acute kidney injury superimposed on CKD: (5) Obesity, morbid, BMI 50 or higher: (6) Atrial fibrillation: (7) chest tightness?resolved Plan Fluid overload, anasarca, bilateral lower extremity edema -She has gained 30 pounds as outpatient. -Her dry weight is 300 pounds -She has bilateral 1+ pitting edema -Her baseline creatinine is anywhere between 1-1.6 -19 L ? Stress dose steroids given to her yesterday. We will continue with Solu-Cortef 50 twice daily today. Starting tomorrow we will put her on hydrocortisone orally 30 mg in a.m. and 15 mg at p.m. ? Check serial EKGs, troponin series. Patient complains of chest tightness that comes and goes. We will check echo for wall motion abnormalities. ? Continue Eliquis. ? Restart patient's diuretics. Bumex 1 mg IV twice daily. Continue on this dose. ? Creatinine better today. Creatinine 1.5. -Continue home Eliquis, monitor GFR closely -Continue midodrine. Hold Entresto. ?Continue to diurese patient. Continue to monitor levels for now. -Full code -Heparin for DVT prophylaxis Attestations Medical Necessity Statement*: Patient requires hospitalization for volume overload. Expected discharge within next 24 to 48 hours. Coding Level of Care Code Acute Wire Loop Machine Operator for Duarte Molina Diagnoses Acute kidney injury superimposed on CKD N17.9; N18.9
[2022-01-05] MEDS: hydrocortisone 10 mg Tablet 15 MG PO (17:02)
[2022-01-05] MEDS: lidocaine 1% 5 ML in potassium chloride premix 100 ML 25 ML IV (17:02)
[2022-01-05 17:09] LABS: Glucose Point of Care 274 mg/dL (70-110)
[2022-01-05] MEDS: cefTRIAXone 1,000 MG in sodium chloride 0.9% (plus) 50 ML 100 MG IV (20:22)
[2022-01-05] MEDS: pramipexole 0.25 mg Tablet 1 MG PO (20:24)
[2022-01-05 21:55] LABS: Glucose Point of Care 109 mg/dL (70-110)
[2022-01-06] VITALS (8 sets, daily range): BP systolic 127–157; BP diastolic 67–106; PULSE 50–100; RESP 15–18; TEMP 36.5–36.8; O2SAT 90–96
[2022-01-06] MEDS: apixaban 5 mg Tablet PO ×3 (00:24→22:38)
[2022-01-06] MEDS: bumetanide 0.25 mg/mL SDV 4 mL 1 MG IVP ×2 (00:26→11:11)
[2022-01-06] MEDS: midodrine 5 mg TABLET 10 MG PO ×3 (01:59→17:33)
[2022-01-06 03:14] LABS: Blood Urea Nitrogen 35 mg/dL (8-23); Calcium 9.6 mg/dL (8.5-10.5); Carbon Dioxide 28 mmol/L (22-29); Chloride 96 mmol/L (98-107); Glomerular Filtration Rate 37.3 mL/min (90-130); Glucose 125 mg/dL (65-115); Magnesium 2.1 mg/dL (1.7-2.3); Osmolality Calculated 291 mOsm/kg (285-295); Sodium 136 mmol/L (136-145)
[2022-01-06] MEDS: hydrocortisone 10 mg Tablet 30 MG PO (05:45)
[2022-01-06] MEDS: pantoprazole DR 40 mg Tablet PO (05:49)
[2022-01-06] MEDS: levothyroxine 150 mcg Tablet PO (05:49)
[2022-01-06 06:45] LABS: Glucose Point of Care 103 mg/dL (70-110)
[2022-01-06] MEDS: ondansetron 2 mg/ML SDV 2 mL 4 MG IVP (08:39)
[2022-01-06] MEDS: spironolactone 25 mg Tablet 12.5 MG PO (08:40)
[2022-01-06] MEDS: lidocaine 1% 5 ML in potassium chloride premix 100 ML 25 ML IV (09:05)
[2022-01-06] MEDS: cefdinir 300 MG CAPSULE PO ×2 (10:29→22:38)
[2022-01-06 11:25] LABS: Glucose Point of Care 461 mg/dL (70-110)
--- NOTE | 2022-01-06 12:18 | CT_ITS ---
WS: [id number] CT ABDOMEN AND PELVIS NONCONTRAST HISTORY: difficult diuresis TECHNIQUE: Imaging performed through the abdomen and pelvis. Coronal and sagittal reformats are submi tted. All CT scans at [facility] use at least one of these dose optimization techniques: auto mated exposure control; mA and/or kV adjustment per patient size (includes targeted exams where dose is matched to clinical indication); or iterative reconstruction. DLP: 2008.87 mGy.cm COMPARISON: 04/11/2021 Lower thorax: Lung bases are clear. Visualized heart is normal. No hiatal hernia. Liver: Normal size liver. No mass or bile duct dilatation. Gallbladder: Normal gallbladder. Pancreas: Normal size and attenuation. Normal pancreatic duct. No pancreatitis or mass. Spleen: Normal. Adrenal glands: Normal. No mass. Right kidney: Normal size kidney with no mass or hydronephrosis. Left kidney: Normal size kidney with no mass or hydronephrosis. Aorta: Mild atherosclerosis abdominal aorta with no aneurysm. No free fluid, intraperitoneal air or significant lymphadenopathy. GI tract: Nondistended stomach. No mucosal inflammation. No small bowel obstruction. The appendix is not definitely visualized. No evidence for appendicitis. There are a few scattered diverticula in the sigmoid colon without acute inflammation. Abdominal wall: Negative. No hernia. Pelvis: Zurita catheter present in a nondistended bladder. Hysterectomy. No free fluid or adenopathy. 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 Dorsal: Stimulator in the l ower thoracic spine. CT/CT abdomen pelvis wo con [id number] IMPRESSION: 1. No acute abdominal or pelvic abnormalities. 2. Prior hysterectomy. 3. Sigmoid diverticulosis without acute diverticulitis. 4. No renal obstruction. 5. No ascites.
[2022-01-06 12:23] LABS: Glucose Point of Care 158 mg/dL (70-110)
[2022-01-06] MEDS: insulin lispro 100 unit/1 mL SUBCUT ×2 (12:52→17:33)
--- NOTE | 2022-01-06 13:33 | PM.CONSULT ---
Providers/Reason For Consult Consulting Physician/Specialty*: KIRSTIE Sellers MD/cardiology Reason for Consult*: Patient with recurrent decompensated heart failure Attending Physician: Ewelina Esqueda MD Primary Care Provider: Crys Glover NP History of Present Illness History of Present Illness Carolyn Alexander is a 71 year old female with a history of left-ventricular diastolic dysfunction, atrial fibrillation, recurrent decompensated heart failure requiring multiple hospital admissions, is admitted to the hospital through the emergency room, where she presented with hypotension and near syncope. She had multiple prolonged hospital admissions recently at the [facility] in [place] under the care of the heart failure team. She had multiple medication adjustments. She was sent home with bumetanide and metolazone with instructions as to how to adjust the dose based on her daily weight. On the day of the hospital admission, she had the usual dose of her medication. Because of her weakness and dizziness, she checked her blood pressure and was found to have the systolic blood pressure in the upper 50s and low 60s. She was initially seen by the primary care provider. She was advised to be evaluated in the emergency room for further management of the condition. This patient has a longstanding history of recurrent episodes of decompensated heart failure. It is thought to be caused by the severe left ventricular diastolic dysfunction and atrial arrhythmia. Approximately 2 months ago, she had a radiofrequency ablation of the atrial fibrillation at the [facility] with Dr. Reyna. Since then the patient did not have any significant palpitation or chest pain. However she was in the hospital 2 times since then with the heart failure. Both times, she ended up and staying in the hospital for 2 weeks or so. In between these admissions, she was in a long-term care facility. According to the patient, physician at the long-term care facility added HCTZ and spironolactone to the discharge medications. Apparently she got dehydrated and had to be given IV fluids to bring up the blood pressure. Details are not known. This patient also is known to have high blood pressure, dyslipidemia, pulmonary hypertension, chronic kidney disease, obstructive sleep apnea, morbid obesity, type 2 diabetes. Review of Systems Narrative: CONSTITUTIONAL: No fever or chills. EYES: No blurring of vision or other visual disturbances lately. ENT: No hoarseness of voice, auditory disturbances or sore throat. CARDIOVASCULAR: As mentioned above. RESPIRATORY: Has no shortness of breath with activities GASTROINTESTINAL: No hematemesis or melena. GENITOURINARY: Chronic kidney disease INTEGUMENTARY: No skin rashes or history of skin cancer. NEURO: No transient ischemic attacks or amaurosis. PSYCHIATRIC: No history of psychosis or major depression. HEMATOLOGIC: No bleeding disorders or significant anemia. ENDOCRINE: Panhypopituitarism MUSCULOSKELETAL: No recent joint pain or swelling. ALLERGY/IMMUNOLOGY: As mentioned above. Medications/Allergies Home Medications Medication Instructions Recorded Confirmed Last Taken Type epinephrine 0.3 mg/0.3 mL 0.3 mg (0.3 mL) IM Q10M PRN 04/20/20 12/28/21 Unknown Rx injection, auto-injector (EpiPen anaphylaxis #2 ea 2-Nabeel) diabetic supplies, miscellan. #1 ea 01/21/21 12/28/21 Unknown Rx blood sugar diagnostic (Pharmacist #50 ea 03/04/21 12/28/21 Unknown Rx Choice Glucose Test Strips) blood-glucose meter,continuous #1 ea 03/04/21 12/28/21 Unknown Rx polyethylene glycol 3350 17 17 g PO DAILY PRN Constipation 05/05/21 12/28/21 Unknown History gram/dose oral powder (Miralax) empagliflozin 10 mg tablet 10 mg PO QAM 08/02/21 12/28/21 12/28/21 History (Jardiance) pantoprazole 40 mg tablet,delayed 40 mg PO QAM 08/02/21 12/28/21 12/28/21 History release (Protonix) potassium chloride 10 mEq 40 meq PO BID 08/02/21 12/28/21 12/28/21 History tablet,extended release pramipexole 0.5 mg tablet (Mirapex) 1 mg PO BEDTIME 08/02/21 12/28/21 12/27/21 History semaglutide 0.25 mg or 0.5 mg (2 1 mg SUBCUT Q7D 08/02/21 12/28/21 12/26/21 History mg/1.5 mL) subcutaneous pen injector (Ozempic) pregabalin 150 mg capsule (Lyrica) 150 mg PO BID 90 days #180 caps 09/01/21 12/28/21 12/28/21 Rx cpap mask and supplies #1 ea 09/14/21 12/28/21 Unknown Rx levothyroxine 175 mcg tablet 175 mcg PO QAM 90 days #90 tabs 10/13/21 12/28/21 12/28/21 Rx silver sulfadiazine 1 % topical 1 applic topical BID #50 grams 12/15/21 12/28/21 Unknown Rx cream (Silvadene) bumetanide 1 mg tablet 1 mg PO DAILY PRN Edema 12/20/21 12/28/21 Unknown History bumetanide 1 mg tablet 2 mg PO BID 12/20/21 12/28/21 12/28/21 History cefdinir 300 mg capsule 300 mg PO BID 5 days #10 caps 12/20/21 12/28/21 12/28/21 Rx dexamethasone 1 mg tablet 1 mg PO QAM 12/20/21 12/29/21 12/28/21 History metolazone 5 mg tablet 5 mg PO DAILY PRN Edema 12/20/21 12/28/21 Unknown History sacubitril 24 mg-valsartan 26 mg 1 tab PO DAILY 12/28/21 12/28/21 12/28/21 History tablet (Entresto) Allergies Allergy/AdvReac Type Severity Reaction Status Date / Time acetaminophen [From Tylenol] Allergy ALGY-Hives Verified 10/01/21 08:24 azithromycin Allergy ALGY-Anaphy Verified 10/01/21 08:24 laxis benzocaine Allergy ALGY-Hives Verified 10/01/21 08:24 butamben [From Cetacaine] Allergy ALGY-Swell Verified 10/01/21 08:24 Lip/Tongue/Throat codeine Allergy ALGY-Hives Verified 10/01/21 08:24 fentanyl Allergy ALGY-Anaphy Verified 10/01/21 08:24 laxis hydrocodone [From Vicodin] Allergy ALGY-Hives Verified 10/01/21 08:24 hydromorphone [From Dilaudid] Allergy ADR-Vomitin Verified 10/01/21 08:24 g Iodinated Contrast Media Allergy ALGY-Anaphy Verified 10/01/21 08:24 laxis liothyronine Allergy ADR-Nausea Verified 10/01/21 08:24 meperidine [From Demerol] Allergy Unknown Verified 10/01/21 08:24 morphine Allergy ALGY-Anaphy Verified 10/01/21 08:24 laxis nitrofurantoin Allergy ALGY-Joint Verified 10/01/21 08:24 [From Macrobid] Pain oxycodone [From Percocet] Allergy ALGY-Hives Verified 10/01/21 08:24 penicillin V Allergy ALGY-Hives Verified 10/01/21 08:24 Penicillins Allergy Unknown Verified 10/01/21 08:24 Phenothiazines Allergy ALGY-Anaphy Verified 10/01/21 08:24 laxis procaine Allergy ALGY-Hives Verified 10/01/21 08:24 prochlorperazine Allergy ALGY-Anaphy Verified 10/01/21 08:24 [From Compazine] laxis Sulfa (Sulfonamide Allergy Unknown Verified 10/01/21 08:24 Antibiotics) tetracaine [From Cetacaine] Allergy ALGY-Swell Verified 10/01/21 08:24 Lip/Tongue/Throat Current Medications Generic Name Dose Route Start Last Admin Trade Name Freq PRN Reason Stop Dose Admin Apixaban 5 mg 01/02/22 11:00 01/06/22 10:29 Apixaban 5 Mg Tablet PO 5 mg Q12H RAMIRO Administration Bumetanide 1 mg 01/06/22 11:00 01/06/22 11:11 Bumetanide 0.25 Mg/Ml Sdv 4 Ml IVP 1 mg Q8H RAMIRO Administration Cefdinir 300 mg 12/31/21 10:00 01/06/22 10:29 Cefdinir 300 Mg Capsule PO 300 mg Q12H RAMIRO Administration Protocol Denture Adhesive 1 applic 12/30/21 11:33 12/30/21 11:41 Fixodent 39 Gm Tube DENTAL 1 appful PRN PRN Administration denture adhesive Hydrocortisone 30 mg 01/05/22 06:00 01/06/22 05:45 Hydrocortisone 10 Mg Tablet PO 30 mg QAM RAMIRO Administration Hydrocortisone 15 mg 01/05/22 18:00 01/05/22 17:02 Hydrocortisone 10 Mg Tablet PO 15 mg QPM RAMIRO Administration Ceftriaxone Sodium 1,000 mg/ 50 mls @ 100 mls/hr 01/05/22 18:15 01/06/22 07:24 Sodium Chloride IV Infused Q24H RAMIRO Infusion Protocol Insulin Human Lispro 0 unit 12/29/21 08:00 01/06/22 12:52 Insulin Lispro 100 Unit/1 Ml SUBCUT 4 unit WM&BEDTIME RAMIRO Administration Protocol Lactulose 20 gm 01/03/22 10:00 01/06/22 10:29 Lactulose Oral Liq 20 Gm/30 Ml Udc PO Not Given Q8H [facility] Levothyroxine Sodium 150 mcg 12/29/21 06:00 01/06/22 05:49 Levothyroxine 150 Mcg Tablet PO 150 mcg QAM [facility] Administration Meclizine HCl 25 mg 12/31/21 09:53 12/31/21 10:18 Meclizine 25 Mg Tablet PO 25 mg BID PRN Administration DIZZINESS Midodrine 10 mg 01/03/22 09:55 01/06/22 09:05 Midodrine 5 Mg Tablet PO 10 mg Q8H [facility] Administration Neomycin/Polymyxin/Bacitracin 1 applic 12/31/21 09:53 01/01/22 20:15 Gqzwlqfj-Xauq-Owocxzvlce Oint 28 Gm TOPICAL 1 applic BID PRN Administration open wound Non-Formulary Medication 1.5 mg 01/03/22 10:00 01/03/22 12:57 Dexamethasone PO 1.5 mg DAILY [facility] Administration Potassium Cl Er 4 each 01/06/22 11:15 01/06/22 12:51 10meq Tab PO Not Given BID@0800,1999 [facility] Ondansetron HCl 4 mg 12/31/21 09:07 01/06/22 08:39 Ondansetron 2 Mg/Ml Sdv 2 Ml IVP 4 mg Q6H PRN Administration NAUSEA AND VOMITING Pantoprazole Sodium 40 mg 12/29/21 06:00 01/06/22 05:[address] 40 Mg Tablet PO 40 mg QAM [facility] Administration Polyethylene Glycol 17 gm 12/29/21 00:27 01/02/22 12:39 Polyethylene Glycol 3350 Pkt 17 Gm PO 17 gm DAILY PRN Administration Constipation Pramipexole Dihydrochloride 1 mg 12/29/21 21:00 01/05/22 20:24 Pramipexole 0.25 Mg Tablet PO 1 mg BEDTIME [facility] Administration Sacubitril/Valsartan 1 each 01/02/22 11:00 01/02/22 22:01 Sacubitril/Valsartan 24-26 Mg Tablet PO 1 each Q12H [facility] Administration Spironolactone 12.5 mg 01/02/22 10:50 01/06/22 08:40 Spironolactone 25 Mg Tablet PO 12.5 mg DAILY RAMIRO Administration PFSH Acute PFSH: Medical History Acute kidney injury superimposed on chronic kidney disease Adrenal insufficiency Anasarca Anasarca Anasarca Anemia Benign essential hypertension with target blood pressure below 140/90 Central hypothyroidism CHF (congestive heart failure) CHF exacerbation Chronic back pain Follows at pain clinic for periodic injections COVID-19 (~09/2020) Edema Facet arthritis, degenerative, lumbar spine Fatigue Gastroenteritis History of anaphylaxis History of atrial fibrillation Intermittent, has not required long-term anticoagulation or focused treatment History of COVID-19 HTN (hypertension) Hyperaldosteronism 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 Increased nausea and vomiting Lumbar spondylolysis OAB (overactive bladder) Obesity Obesity, morbid, BMI 50 or higher Obstructive sleep apnea KP (obstructive sleep apnea) Paroxysmal atrial fibrillation Pituitary macroadenoma with extrasellar extension Prediabetes Pulmonary hypertension PVD (peripheral vascular disease) Steroid dependence Tachycardia Unsteady gait UTI (urinary tract infection) Venous (peripheral) insufficiency Volume overload Surgical History H/O shoulder surgery History of hysterectomy History of pituitary surgery S/P insertion of spinal cord stimulator Family History Father Cancer pancreatic cancer Sister No problems noted. 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 Not in any acute distress. Morbidly obese. Breathing at the rate of 18 bpm. HEENT: No significant pallor, icterus or lymphadenopathy.Oral cavity: There are no mucous membrane lesions. NECK: Trachea appears to be central. No masses noted. No JVD or thyromegaly appreciated. RESPIRATORY: Chest is symmetrical. No intercostals muscle retraction or any accessory muscle activation. There is no chest wall tenderness. Breath sounds are heard bilaterally. No rales or rhonchi heard. No evidence of any consolidation. BREASTS: Deferred. HEART: The heart sounds are normal. No S3 or S4. No significant murmurs. No pericardial rub ABDOMEN: No vessel pulsations or distention. Obese no tenderness. No organomegaly appreciated. Bowel sounds are normally heard. : Deferred. RECTAL: Deferred. LYMPHATIC: No lymphadenopathy noted in the neck. EXTREMITIES: 2+ edema both lower extremities with some oozing of fluid from the blisters MUSCULOSKELETAL: No acute joint deformities or swelling SKIN: There are no significant rashes or ecchymosis NEUROPSYCHIATRIC: The patient is alert and oriented x3. Appears to be in a good mood. No tremors or rigidity noted. Urinary Catheter Management: Zurita: Cath Placed During This Visit: yes Reason for Continuing Indwelling Catheter: Acute Urinary Retention or Obstruction Urinary Catheter Date of Insertion: 12/29/21 Urinary Catheter Time of Insertion: 11:30 Data : 01/02/22 05:24 01/06/22 02:05 A&P Assessment and plan (1) CHF (congestive heart failure): Patient seems to be retaining fluid. Since the hospital discharge from the hospital, she gained almost 20 pounds. At this point, I may go up on the bumetanide to 2 mg IV every 8 hours. Her hypokalemia need to be supplemented. Her intake output needs to be closely monitored. Qualifiers: Heart failure chronicity: acute Heart failure type: unspecified Qualified Code(s): I50.9 - Heart failure, unspecified (2) Acute kidney injury superimposed on CKD: The kidney function and electrolytes need to be closely monitored. (3) Hx of atrial fibrillation, no current medication: Patient is staying in the sinus rhythm. May continue on the current medications. She is on long-term oral anticoagulation because the history of DVT and PE. (4) Hyperaldosteronism: May continue on the current medications. Plan Other problems are Hypokalemia-potassium need to be supplemented and closely monitored Leukocytosis, etiology? Type 2 diabetes Hypothyroidism, clinically euthyroid Ahmed started on IV Bumex 2 mg every 8 hours x3 and potassium supplement by intravenous slow infusion. Based on the clinical progress, further recommendations will be made Consult Attestations Medical Necessity Statement: Patient requires continued hospital stay for close monitoring and further management of Coding Level of Care Code Acute Workers Compensation Attorney for Duarte Molina Diagnoses CHF (congestive heart failure) I50.9 Heart failure chronicity: acute Heart failure type: unspecified Acute kidney injury superimposed on CKD N17.9; N18.9 Hx of atrial fibrillation, no current medication Z86.79 Hyperaldosteronism E26.9
[2022-01-06] MEDS: potassium chloride premix 100 ML 25 MEQ IV (15:28)
[2022-01-06 17:00] LABS: Glucose Point of Care 166 mg/dL (70-110)
--- NOTE | 2022-01-06 17:25 | PM.DCS ---
Discharge Providers Date of Admission: 12/29/21 18:05 Date of Discharge: January 06, 2022 Attending Provider at Admission: Shea Guardado MD Attending Provider at Discharge: Ewelina Esqueda MD Primary Care Provider: Crys Glover NP Diagnoses at Discharge Discharge Diagnosis (1) Acute kidney injury superimposed on CKD: Status: Acute (2) Hx of atrial fibrillation, no current medication: Status: Acute (3) CHF (congestive heart failure): Status: Acute Qualifiers: Heart failure type: unspecified Heart failure chronicity: acute Qualified Code(s): I50.9 - Heart failure, unspecified (4) Hyperaldosteronism: Status: Acute Reason for Visit Reason for Visit: LOW BP/ N/V Physical Exam Urinary Catheter Management: Zurita: Cath Placed During This Visit: yes Reason for Continuing Indwelling Catheter: Acute Urinary Retention or Obstruction Urinary Catheter Date of Insertion: 12/29/21 Urinary Catheter Time of Insertion: 11:30 Discharge Data Studies Completed and Pending Completed Studies During Hospitalization Category Date Time Status CT abdomen pelvis wo con [id number] Routine Cat Scan 01/06/22 12:18 Completed XR chest 1V portable [id number] Stat Exams 12/28/21 17:36 Completed CV. echo lmt w/w contras [id number] Urgent Ultrasound 01/04/22 14:40 Completed Pending at discharge Category Date Time Status Sestamibi Stress Test Request Routine Exams 01/04/22 14:38 Stop Req Radiology Impressions Chest X-Ray 12/28/21 17:36 IMPRESSION: 1. No acute cardiopulmonary process. 2. Incidental/nonacute findings are listed in the report. Abdomen/Pelvis CT 01/06/22 12:18 IMPRESSION: 1. No acute abdominal or pelvic abnormalities. 2. Prior hysterectomy. 3. Sigmoid diverticulosis without acute diverticulitis. 4. No renal obstruction. 5. No ascites. Laboratory Results WBC 15.1 10^3/uL (4.0-10.0) H 01/02/22 05:24 RBC 5.59 10^6/uL (4.1-5.3) H 01/02/22 05:24 Hgb 12.5 g/dL (11.5-15.3) 01/02/22 05:24 Hct 43.4 % (37.0-47.0) 01/02/22 05:24 MCV 77.6 fl (81-99) L 01/02/22 05:24 MCH 22.4 pg (28.0-34.0) L 01/02/22 05:24 MCHC 28.8 g/dL (30.0-36.0) L 01/02/22 05:24 RDW 17.8 % (12.1-15.1) H 01/02/22 05:24 Plt Count 291 10^3/cmm (130-400) 01/02/22 05:24 MPV 10.1 fL (7.4-10.4) 01/02/22 05:24 Neut % (Auto) 76.0 % 01/02/22 05:24 Lymph % (Auto) 10.5 % 01/02/22 05:24 [place] % (Auto) 9.8 % 01/02/22 05:24 Eos % (Auto) 1.5 % 01/02/22 05:24 Baso % (Auto) 0.4 % 01/02/22 05:24 Neut # (Auto) 11.47 10^3/uL (1.8-7.7) H 01/02/22 05:24 Lymph # (Auto) 1.6 10^3/uL (0.8-4.8) 01/02/22 05:24 [place] # (Auto) 1.5 10^3/uL (0.2-0.9) H 01/02/22 05:24 Eos # (Auto) 0.2 10^3/uL (0.0-0.8) 01/02/22 05:24 Baso # (Auto) 0.1 10^3/uL (0.0-0.1) 01/02/22 05:24 Nucleated RBC % (auto) 0 % 01/02/22 05:24 Nucleated RBCs # 0.0 /100WBC 01/02/22 05:24 ESR 22 mm/hr (0-15) H 12/29/21 16:00 Sodium 136 mmol/L (136-145) 01/06/22 02:05 Potassium 3.0 mmol/L (3.5-5.1) L 01/06/22 02:05 Chloride 96 mmol/L (98-107) L 01/06/22 02:05 Carbon Dioxide 28 mmol/L (22-29) 01/06/22 02:05 Anion Gap 15.0 (5-19) 01/06/22 02:05 BUN 35 mg/dL (8-23) H 01/06/22 02:05 Creatinine 1.4 mg/dL (0.5-0.9) H 01/06/22 02:05 GFR Calculation 37.3 mL/min (90-130) L 01/06/22 02:05 Glucose 125 mg/dL (65-115) H 01/06/22 02:05 POC Glucose 166 mg/dL (70-110) H 01/06/22 16:58 Estimat Average Glucose 117 01/01/22 05:00 Hemoglobin A1c 5.7 % (4.0-6.0) 01/01/22 05:00 Calculated Osmolality 291 mOsm/kg (285-295) 01/06/22 02:05 Lactate 1.4 mmol/L (0.5-2.2) 12/29/21 16:00 Calcium 9.6 mg/dL (8.5-10.5) 01/06/22 02:05 Phosphorus 3.9 mg/dL (2.5-4.5) 01/02/22 05:24 Magnesium 2.1 mg/dL (1.7-2.3) 01/06/22 02:05 Total Bilirubin 0.4 mg/dL (0.15-1.2) 01/02/22 05:24 AST 10 U/L (0-32) 01/02/22 05:24 ALT 19 U/L (0-33) 01/02/22 05:24 Alkaline Phosphatase 123 U/L (35-105) H 01/02/22 05:24 Troponin T Baseline 13 ng/L (0-10) H 01/04/22 14:48 Troponin T 120 Minute 11.35 ng/L (0-10) H 01/04/22 16:50 Delta Troponin T -1.65 ABS# (0-10) L 01/04/22 16:50 Troponin T Hi Sens 6Hr 12.16 ng/L (0-10) H 01/04/22 21:00 Troponin T Hi Sens 6Hr Delta -0.84 ng/L (0-12) L 01/04/22 21:00 C-Reactive Protein 45.6 mg/L (0.0-4.9) H 12/29/21 14:53 NT-Pro-B Natriuret Pep 107 pg/mL (0-125) 12/28/21 18:05 Total Protein 7.2 g/dL (6.6-8.7) 01/02/22 05:24 Albumin 3.9 g/dL (3.5-5.2) 01/02/22 05:24 Globulin 3.3 g/dL (1.3-4.6) 01/02/22 05:24 Lipase 54 U/L (13-60) 12/28/21 18:05 25-OH Vitamin D Total 21 ng/mL (30-100) L 12/31/21 01:48 Procalcitonin 0.12 ng/mL (0-0.5) 12/29/21 14:53 TSH 0.89 uIU/mL (0.27-4.20) 12/28/21 18:05 Free T4 2.04 ng/dL (0.82-1.77) H 12/28/21 18:05 PTH Intact 102.2 pg/mL (15-65) H 12/31/21 01:48 Calcium (PTH Intact) 9.3 mg/dL (8.5-10.5) 12/31/21 01:48 Random Cortisol 0.52 ug/dL (2.47-19.5) L 12/28/21 18:05 Urine Color Colorless (Yellow) 12/29/21 11:12 Urine Appearance Clear (CLEAR) 12/29/21 11:12 Urine pH 7 (5-7) 12/29/21 11:12 Ur Specific [place] 1.005 (1.005-1.030) 12/29/21 11:12 Urine Protein Neg (Negative) 12/29/21 11:12 Urine Glucose (UA) 2+ (Normal) H 12/29/21 11:12 Urine Ketones Negative (Negative) 12/29/21 11:12 Urine Blood Trace (Negative) H 12/29/21 11:12 Urine Nitrate Negative (Negative) 12/29/21 11:12 Urine Bilirubin Neg (Negative) 12/29/21 11:12 Urine Urobilinogen Norm mg/dL (Negative) 12/29/21 11:12 Ur Leukocyte Esterase Negative (Negative) 12/29/21 11:12 Urine RBC 0-4 /hpf (0-2) H 12/29/21 11:12 Urine WBC Rare /hpf (0-5) 12/29/21 11:12 Ur Squamous Epith Cells Rare /hpf (0-5) 12/29/21 11:12 Amorphous Sediment Not Reportable 12/29/21 11:12 Urine Bacteria Trace /hpf (NONE) 12/29/21 11:12 Vitals Last Vital Signs Temp 98.2 F 01/06/22 16:00 Pulse 70 01/06/22 16:00 Resp 15 01/06/22 16:00 BP 132/79 01/06/22 16:00 Pulse Ox 96 01/06/22 16:00 O2 Del Method 01/06/22 16:00 Discharge Plan Discharge Patient Disposition: Home Condition: Stable Prescriptions: No Action epinephrine [EpiPen 2-Nabeel] 0.3 mg/0.3 mL auto-injector 0.3 mg IM Q10M PRN (Reason: anaphylaxis) Qty: 2 3RF Rx Instructions: for 3 doses silver sulfadiazine [Silvadene] 1 % cream 1 applic topical BID Qty: 50 2RF Rx Instructions: apply a 1.5 mm thickness bumetanide 1 mg tablet 2 mg PO BID metolazone 5 mg tablet 5 mg PO DAILY PRN (Reason: Edema) bumetanide 1 mg tablet 1 mg PO DAILY PRN (Reason: Edema) cefdinir 300 mg capsule 300 mg PO BID 5 Days Qty: 10 0RF (DME) Pharmacist Choice Strip See Rx Instructions .Route Qty: 50 2RF Rx Instructions: AC and HS (DME) blood-glucose meter,continuous Misc See Rx Instructions .Route Qty: 1 0RF Rx Instructions: As directed one meter with all necessary supplies pregabalin [Lyrica] 150 mg capsule 150 mg PO BID 90 Days Qty: 180 0RF (DME) cpap mask and supplies See Rx Instructions .Route .MEDSUPPLY Qty: 1 0RF Rx Instructions: As directed levothyroxine 175 mcg tablet 175 mcg PO QAM 90 Days Qty: 90 1RF (DME) diabetic supplies, miscellan. Misc See Rx Instructions .Route Qty: 1 0RF Rx Instructions: As directed polyethylene glycol 3350 [Miralax] 17 gram/dose Powder 17 g PO DAILY PRN (Reason: Constipation) Entresto 24-26 mg Tablet 1 tab PO DAILY potassium chloride 10 mEq tablet extended release 40 meq PO BID pramipexole [Mirapex] 0.5 mg tablet 1 mg PO BEDTIME pantoprazole [Protonix] 40 mg tablet,delayed release (DR/EC) 40 mg PO QAM Jardiance 10 mg tablet 10 mg PO QAM Ozempic 0.25 mg or 0.5 mg(2 mg/1.5 mL) pen injector 1 mg SUBCUT Q7D Rx Instructions: on monday dexamethasone 1 mg tablet 1 mg PO QAM Referrals: Crys Glover NP [Primary Care Provider] - Patient Instructions: Opioid Safety Coding Level of Care Code Acute Chg FW DC note Diagnoses Acute kidney injury superimposed on CKD N17.9; N18.9 Hx of atrial fibrillation, no current medication Z86.79 CHF (congestive heart failure) I50.9 Heart failure type: unspecified Heart failure chronicity: acute Hyperaldosteronism E26.9
--- NOTE | 2022-01-06 17:30 | P.PN_ITS ---
Subjective Subjective: seen this AM pt gained 4 lbs overnight she has worsening LE edema and legs weeping she is tearful that she is not getting better RN reported patient has been eating fast food in hospital including burgers, fries and sodas that her is bringing to her and sneaking it in. Vitals/I&O/Wt Last Vital Signs Temp 98.2 F 01/06/22 16:00 Pulse 70 01/06/22 16:00 Resp 15 01/06/22 16:00 BP 132/79 01/06/22 16:00 Pulse Ox 96 01/06/22 16:00 O2 Del Method 01/06/22 16:00 01/06/22 01/06/22 01/06/22 06:59 14:59 22:59 Intake Total 395 / 395 105 / 500 Output Total 1350 / 3350 1150 / 1150 Balance -1350 / -3350 -755 / -755 105 / -650 Weight last 48 hrs Weight 150.593 kg Weight 149.317 kg Physical Exam Const: COMMON NORMALS: no acute distress and patient oriented x3 Resp: COMMON NORMALS: normal respiratory effort, No retractions and No use of accessory muscles; negative for clear to auscultation bilaterally (B/l bibasalar crackles present today) AUSCULTATION: not clear to auscultation bilaterally (B/l bibasalar crackles present today) Cardio: COMMON NORMALS: regular rate, regular rhythm, S1 normal heart sound present and S2 normal heart sound present RATE: regular rate RHYTHM: regular rhythm HEART SOUNDS: S1 normal heart sound present and S2 normal heart sound present GI: COMMON NORMALS: Normal to inspection, nondistended, normoactive bowel sounds present, non-tender and no masses Extremity: NARRATIVE EXTREMITY EXAM: 2+ pitting edema bilateral lower extremity, b/l lower extremity, areas of weeping edema, mild erythema noted as well Neuro: COMMON NORMALS: patient oriented x3 Psych: COMMON NORMALS: mental status grossly normal Urinary Catheter Management: Zurita: Cath Placed During This Visit: yes Reason for Continuing Indwelling Catheter: Acute Urinary Retention or Obstruction Urinary Catheter Date of Insertion: 12/29/21 Urinary Catheter Time of Insertion: 11:30 Data : 01/02/22 05:24 01/06/22 02:05 A&P Assessment and plan (1) Acute kidney injury superimposed on CKD: see below Plan (1) Light headedness: (2) Hypotension: (3) Volume overload: (4) Acute kidney injury superimposed on CKD: (5) Obesity, morbid, BMI 50 or higher: (6) Atrial fibrillation: (7) chest tightness?resolved Plan Fluid overload, anasarca, bilateral lower extremity edema -She has gained 30 pounds as outpatient. -Her dry weight is 300 pounds -She has bilateral 1+ pitting edema -Her baseline creatinine is anywhere between 1-1.6. Cr 1.4 today -24 L as per chart. according to pt her urine output is not being charted accurately ? Continue hydrocortisone orally 30 mg in a.m. and 15 mg at p.m. ? Trops negative. EKG nonischemic. Echo did not show wall motion abnormality. Pt refused to undergo stress test as she had one 2 months ago. ? Continue Eliquis. ? Continue on Bumex 1 mg TID daily. Continue on this dose. ? Creatinine better today. Creatinine 1.4. -Continue home Eliquis, monitor GFR closely -Continue midodrine. Hold Entresto. ?Continue to diurese patient. Continue to monitor levels for now. - COnsult cardiology as per patient request. Strict order placed for no outside food allowed in hospital. 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
[2022-01-06] MEDS: hydrocortisone 10 mg Tablet 15 MG PO (17:32)
[2022-01-06] MEDS: cefTRIAXone 1,000 MG in sodium chloride 0.9% (plus) 50 ML 100 MG IV (18:05)
[2022-01-06] MEDS: bumetanide 0.25 mg/mL SDV 10 mL 2 MG IVP (18:49)
[2022-01-06] MEDS: pramipexole 0.25 mg Tablet 1 MG PO (20:15)
[2022-01-06] MEDS: POTASSIUM CL 10 MEQ 4 EACH PO (20:16)
[2022-01-06 22:18] LABS: Glucose Point of Care 137 mg/dL (70-110)
[2022-01-07] VITALS (9 sets, daily range): BP systolic 102–146; BP diastolic 54–84; PULSE 67–87; RESP 16–22; TEMP 36.4–36.8; O2SAT 92–97
[2022-01-07] MEDS: bumetanide 0.25 mg/mL SDV 10 mL 2 MG IVP ×3 (03:03→18:57)
[2022-01-07] MEDS: ibuprofen 200 mg Tablet PO (04:05)
[2022-01-07 04:44] LABS: Blood Urea Nitrogen 33 mg/dL (8-23); Calcium 9.7 mg/dL (8.5-10.5); Carbon Dioxide 27 mmol/L (22-29); Chloride 96 mmol/L (98-107); Glomerular Filtration Rate 37.3 mL/min (90-130); Glucose 121 mg/dL (65-115); Magnesium 1.8 mg/dL (1.7-2.3); Osmolality Calculated 295 mOsm/kg (285-295); Sodium 138 mmol/L (136-145)
[2022-01-07] MEDS: hydrocortisone 10 mg Tablet 30 MG PO (05:25)
[2022-01-07] MEDS: pantoprazole DR 40 mg Tablet PO (05:25)
[2022-01-07] MEDS: levothyroxine 150 mcg Tablet PO (05:25)
[2022-01-07 06:25] LABS: Glucose Point of Care 113 mg/dL (70-110)
[2022-01-07] MEDS: spironolactone 25 mg Tablet 12.5 MG PO (08:48)
[2022-01-07] MEDS: POTASSIUM CL 10 MEQ 4 EACH PO (08:49)
[2022-01-07] MEDS: cefdinir 300 MG CAPSULE PO ×2 (09:53→22:37)
[2022-01-07] MEDS: apixaban 5 mg Tablet PO ×2 (11:02→22:37)
--- NOTE | 2022-01-07 11:05 | PM.PN ---
Subjective Subjective: The patient is doing better. She lost around 4 pounds since yesterday. Her breathing is better. The leg swelling is going down. No chest pain or palpitations. No fever, chills or cough. There is some concern about her diet-brought from outside. Medications: Medication Review Details: Current Medications Apixaban (Apixaban 5 Mg Tablet) 5 mg PO Q12H [facility] Last Admin: 01/06/22 22:38 Dose: 5 mg Bumetanide (Bumetanide 0.25 Mg/Ml Sdv 10 Ml) 2 mg IVP Q8H RAMIRO Last Admin: 01/07/22 03:03 Dose: 2 mg Cefdinir (Cefdinir 300 Mg Capsule) 300 mg PO Q12H RAMIRO; Protocol Last Admin: 01/07/22 09:53 Dose: 300 mg Denture Adhesive (Fixodent 39 Gm Tube) 1 applic DENTAL PRN PRN PRN Reason: denture adhesive Last Admin: 12/30/21 11:41 Dose: 1 appful Dextrose (Dextrose 50% Syringe 50 Ml) 25 ml IVP ONCE PRN; Protocol PRN Reason: hypoglycemia protocol Dextrose (Dextrose 50% Syringe 50 Ml) 50 ml IVP PRN PRN; Protocol PRN Reason: hypoglycemia protocol Dextrose (Dextrose 50% Syringe 50 Ml) 25 ml IVP ONCE PRN; Protocol PRN Reason: hypoglycemia protocol Dextrose (Dextrose 50% Syringe 50 Ml) 50 ml IVP PRN PRN; Protocol PRN Reason: hypoglycemia protocol Glucagon (Glucagon 1 Mg/Ml Inj 1 Ml) 1 mg IM ONCE PRN; Protocol PRN Reason: Adult Acute Hypoglycemia Prot. Glucagon (Glucagon 1 Mg/Ml Inj 1 Ml) 1 mg IM ONCE PRN; Protocol PRN Reason: Adult Acute Hypoglycemia Prot. Hydrocortisone (Hydrocortisone 10 Mg Tablet) 30 mg PO QAM [facility] Last Admin: 01/07/22 05:25 Dose: 30 mg Hydrocortisone (Hydrocortisone 10 Mg Tablet) 15 mg PO QPM [facility] Last Admin: 01/06/22 17:32 Dose: 15 mg Dextrose (D5w) 500 mls @ 100 mls/hr IV ONCE PRN; Protocol PRN Reason: Adult Acute Hypoglycemia Prot Dextrose (D5w) 500 mls @ 100 mls/hr IV ONCE PRN; Protocol PRN Reason: Adult Acute Hypoglycemia Prot Ceftriaxone Sodium 1,000 mg/ (Sodium Chloride) 50 mls @ 100 mls/hr IV Q24H [facility]; Protocol Last Infusion: 01/06/22 19:31 Dose: Infused Insulin Human Lispro (Insulin Lispro 100 Unit/1 Ml) 0 unit SUBCUT WM&BEDTIME [facility]; Protocol Last Admin: 01/07/22 08:34 Dose: Not Given Lactulose (Lactulose Oral Liq 20 Gm/30 Ml Udc) 20 gm PO Q8H [facility] Last Admin: 01/07/22 09:51 Dose: Not Given Levothyroxine Sodium (Levothyroxine 150 Mcg Tablet) 150 mcg PO QAM [facility] Last Admin: 01/07/22 05:25 Dose: 150 mcg Meclizine HCl (Meclizine 25 Mg Tablet) 25 mg PO BID PRN PRN Reason: DIZZINESS Last Admin: 12/31/21 10:18 Dose: 25 mg Neomycin/Polymyxin/Bacitracin (Jisqzuqn-Jvoc-Etepyyopzx Oint 28 Gm) 1 applic TOPICAL BID PRN PRN Reason: open wound Last Admin: 01/01/22 20:15 Dose: 1 applic Non-Formulary Medication (Dexamethasone) 1.5 mg PO DAILY [facility] Last Admin: 01/03/22 12:57 Dose: 1.5 mg Potassium Cl Er (10meq Tab) 4 each PO BID@0800,2000 [facility] Last Admin: 01/07/22 08:49 Dose: 4 each Ondansetron HCl (Ondansetron 2 Mg/Ml Sdv 2 Ml) 4 mg IVP Q6H PRN PRN Reason: NAUSEA AND VOMITING Last Admin: 01/06/22 08:39 Dose: 4 mg Pantoprazole Sodium (Pantoprazole Dr 40 Mg Tablet) 40 mg PO QAM [facility] Last Admin: 01/07/22 05:25 Dose: 40 mg Polyethylene Glycol (Polyethylene Glycol 3350 Pkt 17 Gm) 17 gm PO DAILY PRN PRN Reason: Constipation Last Admin: 01/02/22 12:39 Dose: 17 gm Potassium Chloride (Potassium Chloride Er 20 Meq Tablet) 40 meq PO TID [facility] Pramipexole Dihydrochloride (Pramipexole 0.25 Mg Tablet) 1 mg PO BEDTIME [facility] Last Admin: 01/06/22 20:15 Dose: 1 mg Sacubitril/Valsartan (Sacubitril/Valsartan 24-26 Mg Tablet) 1 each PO Q12H [facility] Last Admin: 01/02/22 22:01 Dose: 1 each Spironolactone (Spironolactone 25 Mg Tablet) 12.5 mg PO DAILY [facility] Last Admin: 01/07/22 08:48 Dose: 12.5 mg Vitals/I&O/Wt Last Vital Signs Temp 98.0 F 01/07/22 08:00 Pulse 67 01/07/22 08:00 Resp 16 01/07/22 08:00 BP 130/78 01/07/22 08:00 Pulse Ox 92 01/07/22 08:00 O2 Del Method 01/07/22 08:00 01/06/22 01/07/22 01/07/22 22:59 06:59 14:59 Intake Total 495 / 890 540 / 1430 120 / 120 Output Total 1750 / 2900 1250 / 4150 Balance -1255 / -2009 -710 / -2720 120 / 120 Weight last 48 hrs Weight 332 lb Physical Exam Narrative: GENERAL: The patient is alert and oriented times three. Not in any acute distress. Morbidly obese. Breathing at the rate of 18 bpm. HEENT: No significant pallor, icterus or lymphadenopathy.Oral cavity: There are no mucous membrane lesions. NECK: Trachea appears to be central. No masses noted. No JVD or thyromegaly appreciated. RESPIRATORY: Chest is symmetrical. No intercostals muscle retraction or any accessory muscle activation. There is no chest wall tenderness. Breath sounds are heard bilaterally. No rales or rhonchi heard. No evidence of any consolidation. BREASTS: Deferred. HEART: The heart sounds are normal. No S3 or S4. No significant murmurs. No pericardial rub ABDOMEN: No vessel pulsations or distention. Obese no tenderness. No organomegaly appreciated. Bowel sounds are normally heard. : Deferred. RECTAL: Deferred. LYMPHATIC: No lymphadenopathy noted in the neck. EXTREMITIES: 2+ edema both lower extremities with some oozing of fluid from the blisters MUSCULOSKELETAL: No acute joint deformities or swelling SKIN: There are no significant rashes or ecchymosis NEUROPSYCHIATRIC: The patient is alert and oriented x3. Appears to be in a good mood. No tremors or rigidity noted. Urinary Catheter Management: Zurita: Cath Placed During This Visit: yes Reason for Continuing Indwelling Catheter: Accurate Measurement of Urinary Output in Critically Ill Patients Urinary Catheter Date of Insertion: 12/29/21 Urinary Catheter Time of Insertion: 11:30 Data : 01/02/22 05:24 01/07/22 03:59 Other Labs: Laboratory Last Values WBC 15.1 10^3/uL (4.0-10.0) H 01/02/22 05:24 RBC 5.59 10^6/uL (4.1-5.3) H 01/02/22 05:24 Hgb 12.5 g/dL (11.5-15.3) 01/02/22 05:24 Hct 43.4 % (37.0-47.0) 01/02/22 05:24 MCV 77.6 fl (81-99) L 01/02/22 05:24 MCH 22.4 pg (28.0-34.0) L 01/02/22 05:24 MCHC 28.8 g/dL (30.0-36.0) L 01/02/22 05:24 RDW 17.8 % (12.1-15.1) H 01/02/22 05:24 Plt Count 291 10^3/cmm (130-400) 01/02/22 05:24 MPV 10.1 fL (7.4-10.4) 01/02/22 05:24 Neut % (Auto) 76.0 % 01/02/22 05:24 Lymph % (Auto) 10.5 % 01/02/22 05:24 Griggs % (Auto) 9.8 % 01/02/22 05:24 Eos % (Auto) 1.5 % 01/02/22 05:24 Baso % (Auto) 0.4 % 01/02/22 05:24 Neut # (Auto) 11.47 10^3/uL (1.8-7.7) H 01/02/22 05:24 Lymph # (Auto) 1.6 10^3/uL (0.8-4.8) 01/02/22 05:24 Griggs # (Auto) 1.5 10^3/uL (0.2-0.9) H 01/02/22 05:24 Eos # (Auto) 0.2 10^3/uL (0.0-0.8) 01/02/22 05:24 Baso # (Auto) 0.1 10^3/uL (0.0-0.1) 01/02/22 05:24 Nucleated RBC % (auto) 0 % 01/02/22 05:24 Nucleated RBCs # 0.0 /100WBC 01/02/22 05:24 ESR 22 mm/hr (0-15) H 12/29/21 16:00 Sodium 138 mmol/L (136-145) 01/07/22 03:59 Potassium 3.0 mmol/L (3.5-5.1) L 01/07/22 03:59 Chloride 96 mmol/L (98-107) L 01/07/22 03:59 Carbon Dioxide 27 mmol/L (22-29) 01/07/22 03:59 Anion Gap 18.0 (5-19) 01/07/22 03:59 BUN 33 mg/dL (8-23) H 01/07/22 03:59 Creatinine 1.4 mg/dL (0.5-0.9) H 01/07/22 03:59 GFR Calculation 37.3 mL/min (90-130) L 01/07/22 03:59 Glucose 121 mg/dL (65-115) H 01/07/22 03:59 POC Glucose 113 mg/dL (70-110) H 01/07/22 06:19 Estimat Average Glucose 117 01/01/22 05:00 Hemoglobin A1c 5.7 % (4.0-6.0) 01/01/22 05:00 Calculated Osmolality 295 mOsm/kg (285-295) 01/07/22 03:59 Lactate 1.4 mmol/L (0.5-2.2) 12/29/21 16:00 Calcium 9.7 mg/dL (8.5-10.5) 01/07/22 03:59 Phosphorus 3.9 mg/dL (2.5-4.5) 01/02/22 05:24 Magnesium 1.8 mg/dL (1.7-2.3) 01/07/22 03:59 Total Bilirubin 0.4 mg/dL (0.15-1.2) 01/02/22 05:24 AST 10 U/L (0-32) 01/02/22 05:24 ALT 19 U/L (0-33) 01/02/22 05:24 Alkaline Phosphatase 123 U/L (35-105) H 01/02/22 05:24 Troponin T Baseline 13 ng/L (0-10) H 01/04/22 14:48 Troponin T 120 Minute 11.35 ng/L (0-10) H 01/04/22 16:50 Delta Troponin T -1.65 ABS# (0-10) L 01/04/22 16:50 Troponin T Hi Sens 6Hr 12.16 ng/L (0-10) H 01/04/22 21:00 Troponin T Hi Sens 6Hr Delta -0.84 ng/L (0-12) L 01/04/22 21:00 C-Reactive Protein 45.6 mg/L (0.0-4.9) H 12/29/21 14:53 NT-Pro-B Natriuret Pep 107 pg/mL (0-125) 12/28/21 18:05 Total Protein 7.2 g/dL (6.6-8.7) 01/02/22 05:24 Albumin 3.9 g/dL (3.5-5.2) 01/02/22 05:24 Globulin 3.3 g/dL (1.3-4.6) 01/02/22 05:24 Lipase 54 U/L (13-60) 12/28/21 18:05 25-OH Vitamin D Total 21 ng/mL (30-100) L 12/31/21 01:48 Procalcitonin 0.12 ng/mL (0-0.5) 12/29/21 14:53 TSH 0.89 uIU/mL (0.27-4.20) 12/28/21 18:05 Free T4 2.04 ng/dL (0.82-1.77) H 12/28/21 18:05 PTH Intact 102.2 pg/mL (15-65) H 12/31/21 01:48 Calcium (PTH Intact) 9.3 mg/dL (8.5-10.5) 12/31/21 01:48 Random Cortisol 0.52 ug/dL (2.47-19.5) L 12/28/21 18:05 Urine Color Colorless (Yellow) 12/29/21 11:12 Urine Appearance Clear (CLEAR) 12/29/21 11:12 Urine pH 7 (5-7) 12/29/21 11:12 Ur Specific Struthers 1.005 (1.005-1.030) 12/29/21 11:12 Urine Protein Neg (Negative) 12/29/21 11:12 Urine Glucose (UA) 2+ (Normal) H 12/29/21 11:12 Urine Ketones Negative (Negative) 12/29/21 11:12 Urine Blood Trace (Negative) H 12/29/21 11:12 Urine Nitrate Negative (Negative) 12/29/21 11:12 Urine Bilirubin Neg (Negative) 12/29/21 11:12 Urine Urobilinogen Norm mg/dL (Negative) 12/29/21 11:12 Ur Leukocyte Esterase Negative (Negative) 12/29/21 11:12 Urine RBC 0-4 /hpf (0-2) H 12/29/21 11:12 Urine WBC Rare /hpf (0-5) 12/29/21 11:12 Ur Squamous Epith Cells Rare /hpf (0-5) 12/29/21 11:12 Amorphous Sediment Not Reportable 12/29/21 11:12 Urine Bacteria Trace /hpf (NONE) 12/29/21 11:12 A&P Assessment and plan (1) CHF (congestive heart failure): Patient seems to be responding to a higher dose of Bumex. This may be continued for today. She may be switched to p.o. Bumex tomorrow. She also needs to be placed back on the Jardiance 10 mg p.o. daily. Qualifiers: Heart failure type: unspecified Heart failure chronicity: acute Qualified Code(s): I50.9 - Heart failure, unspecified (2) Acute kidney injury superimposed on CKD: The kidney function and electrolytes need to be closely monitored. She still seems to be hypokalemic. We may increase her p.o. potassium intake. Apparently she does not want to take the IV potassium. (3) Hx of atrial fibrillation, no current medication: Patient is staying in the sinus rhythm. May continue on the current medications. 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 (4) Hyperaldosteronism: May continue on the current medications. Plan Other problems are Hypokalemia-potassium 20 mg p.o. every 6 hours Leukocytosis, etiology? Type 2 diabetes Hypothyroidism, clinically euthyroid Continue Bumex 2 mg every 8 hours for today Bumex 2 mg p.o. every 6 hours from tomorrow onwards Potassium 20 mg p.o. every 6 hours Jardiance 10 mg p.o. daily BMP in the morning Based on the clinical progress, further recommendations will be made Attestations Medical Necessity Statement*: Patient requires continued hospital stay for close monitoring and further management Coding Level of Care Code Acute Applications Chemist for [facility] Fwd History Expanded Problem Focused Exam Expanded Problem Focused Medical Decision Making Moderate Complexity Diagnoses CHF (congestive heart failure) I50.9 Heart failure type: unspecified Heart failure chronicity: acute Acute kidney injury superimposed on CKD N17.9; N18.9 Hx of atrial fibrillation, no current medication Z86.79 Hyperaldosteronism E26.9
[2022-01-07 11:39] LABS: Glucose Point of Care 109 mg/dL (70-110)
--- NOTE | 2022-01-07 15:00 | P.PN_ITS ---
Subjective Subjective: Seen this morning. Patient educated on diet. Will place nutrition consult for her. She feels better. Potassium again 3.0. Creatinine 1.4. 4 L urine output overnight. 28 L negative since admission. However I question the accuracy of that. Patient has been drinking sodas that her has been bringing her. I do not believe those are accurately charted in terms of her intake. Vitals/I&O/Wt Last Vital Signs Temp 98.2 F 01/07/22 12:00 Pulse 69 01/07/22 12:00 Resp 18 01/07/22 12:00 BP 121/75 01/07/22 12:00 Pulse Ox 93 01/07/22 12:00 O2 Del Method 01/07/22 12:00 01/07/22 01/07/22 01/07/22 06:59 14:59 22:59 Intake Total 540 / 1430 360 / 360 Output Total 1250 / 4150 1000 / 1000 Balance -710 / -2720 -640 / -640 Weight last 48 hrs Weight 148.892 kg Weight 150.593 kg Physical Exam Const: COMMON NORMALS: no acute distress and patient oriented x3 Resp: COMMON NORMALS: normal respiratory effort, No retractions and No use of accessory muscles; negative for clear to auscultation bilaterally (B/l bibasalar crackles present today) AUSCULTATION: not clear to auscultation bilaterally (B/l bibasalar crackles present today) Cardio: COMMON NORMALS: regular rate, regular rhythm, S1 normal heart sound present and S2 normal heart sound present RATE: regular rate RHYTHM: regular rhythm HEART SOUNDS: S1 normal heart sound present and S2 normal heart sound present GI: COMMON NORMALS: Normal to inspection, nondistended, normoactive bowel sounds present, non-tender and no masses Extremity: NARRATIVE EXTREMITY EXAM: 2+ pitting edema bilateral lower extremity, b/l lower extremity, areas of weeping edema, mild erythema noted as well Neuro: COMMON NORMALS: patient oriented x3 Psych: COMMON NORMALS: mental status grossly normal Urinary Catheter Management: Zurita: Cath Placed During This Visit: yes Reason for Continuing Indwelling Catheter: Accurate Measurement of Urinary Output in Critically Ill Patients Urinary Catheter Date of Insertion: 12/29/21 Urinary Catheter Time of Insertion: 11:30 Data : 01/02/22 05:24 01/07/22 03:59 A&P Assessment and plan (1) Acute kidney injury superimposed on CKD: see below Plan (1) Light headedness: (2) Hypotension: (3) Volume overload: (4) Acute kidney injury superimposed on CKD: (5) Obesity, morbid, BMI 50 or higher: (6) Atrial fibrillation: (7) chest tightness?resolved Plan Fluid overload, anasarca, bilateral lower extremity edema -She has gained 30 pounds as outpatient. -Her dry weight is 300 pounds -She has bilateral 1+ pitting edema -Her baseline creatinine is anywhere between 1-1.6. Cr 1.4 today -24 L as per chart. according to pt her urine output is not being charted accurately ? Continue hydrocortisone orally 30 mg in a.m. and 15 mg at p.m. ? Trops negative. EKG nonischemic. Echo did not show wall motion abnormality. Pt refused to undergo stress test as she had one 2 months ago. ? Continue Eliquis. ? Continue on Bumex 1 mg TID IV daily. Continue on this dose. ? Creatinine better today. Creatinine 1.4. -Continue home Eliquis, monitor GFR closely -Continue midodrine. Hold Entresto. ?Continue to diurese patient. Continue to monitor levels for now. - COnsult cardiology as per patient request. Continue on ceftriaxone for cellulitis. ? Potassium 40 3 times daily orally. Strict order placed for no outside food allowed in hospital. 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
[2022-01-07 16:56] LABS: Glucose Point of Care 124 mg/dL (70-110)
[2022-01-07] MEDS: hydrocortisone 10 mg Tablet 15 MG PO (17:22)
[2022-01-07] MEDS: cefTRIAXone 1,000 MG in sodium chloride 0.9% (plus) 50 ML 100 MG IV (17:22)
[2022-01-07] MEDS: ibuprofen 200 mg Tablet 400 MG PO (19:09)
[2022-01-07] MEDS: pramipexole 0.25 mg Tablet 1 MG PO (20:44)
[2022-01-07 20:53] LABS: Glucose Point of Care 168 mg/dL (70-110)
[2022-01-08] VITALS (8 sets, daily range): BP systolic 107–148; BP diastolic 68–78; PULSE 72–90; RESP 16–22; TEMP 36.6–36.9; O2SAT 91–96
[2022-01-08] MEDS: lactulose oral liq 20 gm/30 mL UDC PO (02:57)
[2022-01-08] MEDS: bumetanide 0.25 mg/mL SDV 10 mL 2 MG IVP ×3 (02:57→17:57)
[2022-01-08] MEDS: ibuprofen 200 mg Tablet PO (05:09)
[2022-01-08] MEDS: levothyroxine 150 mcg Tablet PO (05:09)
[2022-01-08] MEDS: pantoprazole DR 40 mg Tablet PO (05:09)
[2022-01-08] MEDS: hydrocortisone 10 mg Tablet 30 MG PO (05:10)
[2022-01-08] MEDS: meclizine 25 mg tablet PO ×2 (05:10→20:47)
[2022-01-08] MEDS: ondansetron 2 mg/ML SDV 2 mL 4 MG IVP (05:25)
[2022-01-08 06:09] LABS: Blood Urea Nitrogen 32 mg/dL (8-23); Calcium 9.8 mg/dL (8.5-10.5); Carbon Dioxide 30 mmol/L (22-29); Chloride 90 mmol/L (98-107); Glomerular Filtration Rate 37.3 mL/min (90-130); Glucose 109 mg/dL (65-115); Magnesium 1.7 mg/dL (1.7-2.3); Osmolality Calculated 277 mOsm/kg (285-295); Sodium 130 mmol/L (136-145)
[2022-01-08 06:26] LABS: Glucose Point of Care 122 mg/dL (70-110)
--- NOTE | 2022-01-08 09:27 | P.PN_ITS ---
Subjective Subjective: Patient doing better. Still has significant lower extremity edema. Vitals/I&O/Wt Last Vital Signs Temp 98.3 F 01/08/22 08:00 Pulse 81 01/08/22 08:00 Resp 18 01/08/22 08:00 BP 121/68 01/08/22 08:00 Pulse Ox 94 01/08/22 08:00 O2 Del Method 01/08/22 08:00 01/07/22 01/08/22 01/08/22 22:59 06:59 14:59 Intake Total 1310 / 1670 705 / 2375 Output Total 1625 / 2625 50 / 2675 Balance -315 / -955 655 / -300 Weight last 48 hrs Weight 328 lb 4 oz Weight 332 lb Physical Exam Narrative: GENERAL: Patient is alert, awake and oriented x3. [] NECK: No jugular vein distension. [] HEENT: No cyanosis. No icterus. No pallor. [] HEART: Regular S1 and S2. No murmur, rub or gallop. [] LUNGS: Decreased breathing sounds. ABDOMEN: Soft CENTRAL NERVOUS SYSTEM: Grossly nonfocal. [] EXTREMITIES: Lower extremities with 2+ edema bilaterally. Pulses palpable in the lower extremities, both dorsalis pedis and posterior tibial. [] Urinary Catheter Management: Zurita: Cath Placed During This Visit: yes Reason for Continuing Indwelling Catheter: Acute Urinary Retention or Obstruction Urinary Catheter Date of Insertion: 12/29/21 Urinary Catheter Time of Insertion: 11:30 Data : 01/02/22 05:24 01/09/22 19:36 A&P Assessment and plan (1) CHF (congestive heart failure): Continue current dose of Bumex. Recommend adding metolazone on milligrams daily with close monitoring of electrolytes and renal function Qualifiers: Heart failure type: unspecified Heart failure chronicity: acute Qualified Code(s): I50.9 - Heart failure, unspecified (2) Acute kidney injury superimposed on CKD: Continue monitoring renal function. Stable and improved. Patient is hypokalemic. Replace and monitor. (3) Hx of atrial fibrillation, no current medication: Continue anticoagulation (4) Hyperaldosteronism: May continue on the current medications. Plan Thank you for involving us with care of this patient. We will continue to follow. 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
[2022-01-08 11:06] LABS: Glucose Point of Care 96 mg/dL (70-110)
[2022-01-08] MEDS: metoclopramide 5 mg/mL SDV 2 mL 10 MG IVP (11:09)
[2022-01-08] MEDS: cefdinir 300 MG CAPSULE PO ×2 (12:37→22:02)
[2022-01-08] MEDS: apixaban 5 mg Tablet PO ×2 (12:37→22:02)
[2022-01-08] MEDS: spironolactone 25 mg Tablet 12.5 MG PO (12:38)
--- NOTE | 2022-01-08 12:49 | PM.PN ---
Subjective Subjective: seen this am no acute events overnight she states he has not lost any weight cr 1.4 today pt frustrated with her condition states we should put a drain in her and drain all the fluid Vitals/I&O/Wt Last Vital Signs Temp 97.9 F 01/08/22 12:00 Pulse 77 01/08/22 12:00 Resp 16 01/08/22 12:00 BP 120/68 01/08/22 12:00 Pulse Ox 96 01/08/22 12:00 O2 Del Method 01/08/22 12:00 01/07/22 01/08/22 01/08/22 22:59 06:59 14:59 Intake Total 1310 / 1670 705 / 2375 0 / 0 Output Total 1625 / 2625 50 / 2675 Balance -315 / -955 655 / -300 0 / 0 Weight last 48 hrs Weight 148.892 kg Weight 150.593 kg Physical Exam Const: COMMON NORMALS: no acute distress and patient oriented x3 Resp: COMMON NORMALS: normal respiratory effort, No retractions and No use of accessory muscles; negative for clear to auscultation bilaterally (B/l bibasalar crackles present today) AUSCULTATION: not clear to auscultation bilaterally (B/l bibasalar crackles present today) Cardio: COMMON NORMALS: regular rate, regular rhythm, S1 normal heart sound present and S2 normal heart sound present RATE: regular rate RHYTHM: regular rhythm HEART SOUNDS: S1 normal heart sound present and S2 normal heart sound present GI: COMMON NORMALS: Normal to inspection, nondistended, normoactive bowel sounds present, non-tender and no masses Extremity: NARRATIVE EXTREMITY EXAM: 2+ pitting edema bilateral lower extremity, b/l lower extremity, areas of weeping edema, mild erythema noted as well Neuro: COMMON NORMALS: patient oriented x3 Psych: COMMON NORMALS: mental status grossly normal Urinary Catheter Management: Zurita: Cath Placed During This Visit: yes Reason for Continuing Indwelling Catheter: Acute Urinary Retention or Obstruction Urinary Catheter Date of Insertion: 12/29/21 Urinary Catheter Time of Insertion: 11:30 Data : 01/02/22 05:24 01/08/22 05:12 A&P Assessment and plan (1) Acute kidney injury superimposed on CKD: see below Plan (1) Light headedness: (2) Hypotension: (3) Volume overload: (4) Acute kidney injury superimposed on CKD: (5) Obesity, morbid, BMI 50 or higher: (6) Atrial fibrillation: (7) chest tightness?resolved Plan Fluid overload, anasarca, bilateral lower extremity edema -She has gained 30 pounds as outpatient. -Her dry weight is 300 pounds -She has bilateral 1+ pitting edema -Her baseline creatinine is anywhere between 1-1.6. Cr 1.4 today -24 L as per chart. according to pt her urine output is not being charted accurately ? Continue hydrocortisone orally 30 mg in a.m. and 15 mg at p.m. ? Trops negative. EKG nonischemic. Echo did not show wall motion abnormality. Pt refused to undergo stress test as she had one 2 months ago. ? Continue Eliquis. ? Continue on Bumex 2 mg TID IV daily. Continue on this dose. ? Creatinine better today. Creatinine 1.4. -Continue home Eliquis, monitor GFR closely -Stop midodrine. Stop Entresto. ?Continue to diurese patient. Continue to monitor levels for now. - COnsult cardiology. Appreciate recommendations Continue on ceftriaxone for cellulitis. ? Potassium 40 3 times daily orally. Strict order placed for no outside food allowed in hospital. patient will need to avoid fast food due to high salt load given her HF -Full code -Heparin for DVT prophylaxis Attestations Medical Necessity Statement*: Patient requires continued hospital stay for close monitoring and further management Coding Level of Care Code Acute Director Of Leadership Development for [facility] Fwd Diagnoses Acute kidney injury superimposed on CKD N17.9; N18.9
[2022-01-08] MEDS: metOLazone 5 MG Tablet PO (15:33)
[2022-01-08 17:35] LABS: Glucose Point of Care 156 mg/dL (70-110)
[2022-01-08] MEDS: hydrocortisone 10 mg Tablet 15 MG PO (17:56)
[2022-01-08] MEDS: cefTRIAXone 1,000 MG in sodium chloride 0.9% (plus) 50 ML 100 MG IV (17:57)
[2022-01-08] MEDS: pramipexole 0.25 mg Tablet 1 MG PO (20:15)
[2022-01-08 21:17] LABS: Glucose Point of Care 152 mg/dL (70-110)
[2022-01-08] MEDS: insulin lispro 100 unit/1 mL SUBCUT (21:45)
[2022-01-09] VITALS (8 sets, daily range): BP systolic 96–142; BP diastolic 61–86; PULSE 56–104; RESP 17–19; TEMP 36.3–36.8; O2SAT 90–95
[2022-01-09] MEDS: bumetanide 0.25 mg/mL SDV 10 mL 2 MG IVP ×2 (03:59→20:43)
[2022-01-09] MEDS: hydrocortisone 10 mg Tablet 30 MG PO (05:55)
[2022-01-09] MEDS: pantoprazole DR 40 mg Tablet PO (05:56)
[2022-01-09] MEDS: levothyroxine 150 mcg Tablet PO (05:56)
[2022-01-09 06:31] LABS: Glucose Point of Care 115 mg/dL (70-110)
[2022-01-09 06:44] LABS: Blood Urea Nitrogen 24 mg/dL (8-23); Calcium 9.6 mg/dL (8.5-10.5); Carbon Dioxide 25 mmol/L (22-29); Chloride 94 mmol/L (98-107); Glomerular Filtration Rate 37.3 mL/min (90-130); Glucose 98 mg/dL (65-115); Osmolality Calculated 288 mOsm/kg (285-295); Sodium 137 mmol/L (136-145)
[2022-01-09 06:46] LABS: Anion Gap 20.8 (5-19)
[2022-01-09 06:48] LABS: Potassium 2.8 mmol/L (3.5-5.1)
[2022-01-09] MEDS: spironolactone 25 mg Tablet 12.5 MG PO (08:09)
[2022-01-09] MEDS: lidocaine 1% 5 ML in potassium chloride premix 100 ML 25 ML IV (08:09)
[2022-01-09] MEDS: potassium chloride oral liq 20 mEq/15 mL UDC 40 MEQ PO (09:40)
[2022-01-09] MEDS: cefdinir 300 MG CAPSULE PO ×2 (09:40→20:43)
--- NOTE | 2022-01-09 10:21 | P.PN_ITS ---
Subjective Subjective: Seen this morning. Patient is starting to get wrinkling on her lower extremities. 2 L urine output overnight. Vitals/I&O/Wt Last Vital Signs Temp 98.0 F 01/09/22 07:34 Pulse 83 01/09/22 07:37 Resp 18 01/09/22 07:34 BP 113/73 01/09/22 07:37 Pulse Ox 90 01/09/22 07:34 O2 Del Method 01/09/22 07:34 01/08/22 01/09/22 01/09/22 22:59 06:59 14:59 Intake Total 290 / 530 Output Total 3800 / 3800 1500 / 5300 1200 / 1200 Balance -3510 / -3270 -1500 / -4770 -1200 / -1200 Physical Exam Const: COMMON NORMALS: no acute distress and patient oriented x3 Resp: COMMON NORMALS: normal respiratory effort, No retractions and No use of accessory muscles; negative for clear to auscultation bilaterally (B/l bibasalar crackles present today) AUSCULTATION: not clear to auscultation bilaterally (B/l bibasalar crackles present today) Cardio: COMMON NORMALS: regular rate, regular rhythm, S1 normal heart sound present and S2 normal heart sound present RATE: regular rate RHYTHM: regular rhythm HEART SOUNDS: S1 normal heart sound present and S2 normal heart sound present GI: COMMON NORMALS: Normal to inspection, nondistended, normoactive bowel sounds present, non-tender and no masses Extremity: NARRATIVE EXTREMITY EXAM: 2+ pitting edema bilateral lower extremity, b/l lower extremity, areas of weeping edema, mild erythema noted as well Neuro: COMMON NORMALS: patient oriented x3 Psych: COMMON NORMALS: mental status grossly normal Urinary Catheter Management: Zurita: Cath Placed During This Visit: yes Reason for Continuing Indwelling Catheter: Acute Urinary Retention or Obstruction Urinary Catheter Date of Insertion: 12/29/21 Urinary Catheter Time of Insertion: 11:30 Data : 01/02/22 05:24 01/09/22 05:16 A&P Assessment and plan (1) Acute kidney injury superimposed on CKD: see below Plan (1) Light headedness: (2) Hypotension: (3) Volume overload: (4) Acute kidney injury superimposed on CKD: (5) Obesity, morbid, BMI 50 or higher: (6) Atrial fibrillation: (7) chest tightness?resolved Plan Fluid overload, anasarca, bilateral lower extremity edema -She has gained 30 pounds as outpatient. -Her dry weight is 300 pounds -She has bilateral 1+ pitting edema -Her baseline creatinine is anywhere between 1-1.6. Cr 1.4 today -24 L as per chart. according to pt her urine output is not being charted accurately ? Continue hydrocortisone orally 30 mg in a.m. and 15 mg at p.m. ? Trops negative. EKG nonischemic. Echo did not show wall motion abnormality. Pt refused to undergo stress test as she had one 2 months ago. ? Continue Eliquis. ? Continue on Bumex 2 mg TID IV daily. Continue on this dose. She was given one-time dose of metolazone yesterday. We will give another dose of metolazone today. Plan to switch to oral tomorrow. ? Creatinine better today. Creatinine 1.4. -Continue home Eliquis, monitor GFR closely -Stop midodrine. Stop Entresto. ?Continue to diurese patient. Continue to monitor levels for now. - COnsult cardiology. Appreciate recommendations Continue on ceftriaxone for cellulitis. ? Potassium 40 3 times daily orally. Potassium 2.8 today. Ordered 40 IV for the patient however she refused. States that she cannot tolerate it despite the lidocaine as well. We will switch to oral. Strict order placed for no outside food allowed in hospital. patient will need to avoid fast food due to high salt load given her HF -Full code -Heparin for DVT prophylaxis Attestations Medical Necessity Statement*: Most likely discharge in next 24 to 48 hours. Coding Level of Care Code Acute Advertising Sales Assistant for [employer] Fwd Diagnoses Acute kidney injury superimposed on CKD N17.9; N18.9
--- NOTE | 2022-01-09 10:23 | PC.SOCIAL ---
IMM Updated Updated pt on IMM. No questions voiced. Provided pt a copy. Initialed, dated, & timed copy in chart.
[2022-01-09] MEDS: apixaban 5 mg Tablet PO ×2 (13:02→20:50)
[2022-01-09 14:17] LABS: Glucose Point of Care 137 mg/dL (70-110)
[2022-01-09] MEDS: ALPRAZolam 0.5 mg Tablet 0.25 MG PO (16:06)
[2022-01-09] MEDS: sodium chloride 0.9% 250 ML IV (16:06)
[2022-01-09 16:41] LABS: Glucose Point of Care 125 mg/dL (70-110)
[2022-01-09] MEDS: hydrocortisone 10 mg Tablet 15 MG PO (17:22)
[2022-01-09] MEDS: cefTRIAXone 1,000 MG in sodium chloride 0.9% (plus) 50 ML 100 MG IV (17:22)
[2022-01-09 20:09] LABS: Blood Urea Nitrogen 26 mg/dL (8-23); Calcium 9.7 mg/dL (8.5-10.5); Carbon Dioxide 26 mmol/L (22-29); Chloride 93 mmol/L (98-107); Glomerular Filtration Rate 34.4 mL/min (90-130); Glucose 143 mg/dL (65-115); Osmolality Calculated 279 mOsm/kg (285-295); Sodium 131 mmol/L (136-145)
[2022-01-09] MEDS: insulin lispro 100 unit/1 mL SUBCUT (20:44)
[2022-01-09] MEDS: pramipexole 0.25 mg Tablet 1 MG PO (20:46)
[2022-01-09 20:50] LABS: Glucose Point of Care 154 mg/dL (70-110)
--- NOTE | 2022-01-09 21:38 | PM.PN ---
Subjective Subjective: Patient has diuresed very well. She is hypokalemic. Feeling better and lower extremity edema significantly improved. Vitals/I&O/Wt Last Vital Signs Temp 97.4 F L 01/09/22 20:00 Pulse 90 01/09/22 20:00 Resp 19 H 01/09/22 20:00 BP 119/79 01/09/22 20:00 Pulse Ox 93 01/09/22 20:00 O2 Del Method 01/09/22 11:35 01/09/22 01/09/22 01/09/22 06:59 14:59 22:59 Intake Total 585 / 585 300 / 885 Output Total 1500 / 5300 1200 / 1200 Balance -1500 / -4770 -615 / -615 300 / -315 Weight last 48 hrs Weight 322 lb Physical Exam Narrative: GENERAL: Patient is alert, awake and oriented x3. [] NECK: No jugular vein distension. [] HEENT: No cyanosis. No icterus. No pallor. [] HEART: Regular S1 and S2. No murmur, rub or gallop. [] LUNGS: Decreased breathing sounds. ABDOMEN: Soft CENTRAL NERVOUS SYSTEM: Grossly nonfocal. [] EXTREMITIES: Lower extremities with 2+ edema bilaterally. Pulses palpable in the lower extremities, both dorsalis pedis and posterior tibial. [] Urinary Catheter Management: Zurita: Cath Placed During This Visit: yes Reason for Continuing Indwelling Catheter: Acute Urinary Retention or Obstruction Urinary Catheter Date of Insertion: 12/29/21 Urinary Catheter Time of Insertion: 11:30 Data : 01/02/22 05:24 01/09/22 19:36 A&P Assessment and plan (1) CHF (congestive heart failure): Continue Bumex. Had good response to metolazone. Has been -5 L fluid balance. By tomorrow can de-escalate diuretics and can switch to oral medications. Qualifiers: Heart failure type: unspecified Heart failure chronicity: acute Qualified Code(s): I50.9 - Heart failure, unspecified (2) Acute kidney injury superimposed on CKD: Continue monitoring renal function. Stable and improved. Patient is hypokalemic. Replace and monitor. (3) Hx of atrial fibrillation, no current medication: Continue anticoagulation (4) Hyperaldosteronism: May continue on the current medications. Plan Thank you for involving us with care of this patient. We will continue to follow. Please call with questions Attestations Medical Necessity Statement*: Care expected to cross 2 midnights Coding Level of Care Code Acute Vein Access Technician for [facility] Diagnoses CHF (congestive heart failure) I50.9 Heart failure type: unspecified Heart failure chronicity: acute Acute kidney injury superimposed on CKD N17.9; N18.9 Hx of atrial fibrillation, no current medication Z86.79 Hyperaldosteronism E26.9
[2022-01-09] MEDS: ALPRAZolam 0.5 mg Tablet PO (22:59)
[2022-01-10] VITALS (7 sets, daily range): BP systolic 92–148; BP diastolic 56–80; PULSE 74–101; RESP 16–18; TEMP 36.4–36.6; O2SAT 89–94
[2022-01-10] MEDS: ondansetron 2 mg/ML SDV 2 mL 4 MG IVP (02:49)
[2022-01-10 04:32] LABS: Anion Gap 15.6 (5-19); Blood Urea Nitrogen 26 mg/dL (8-23); Calcium 9.7 mg/dL (8.5-10.5); Carbon Dioxide 27 mmol/L (22-29); Chloride 93 mmol/L (98-107); Glomerular Filtration Rate 37.3 mL/min (90-130); Glucose 126 mg/dL (65-115); Magnesium 1.6 mg/dL (1.7-2.3); Osmolality Calculated 282 mOsm/kg (285-295); Sodium 133 mmol/L (136-145)
[2022-01-10 04:37] LABS: Potassium 2.6 mmol/L (3.5-5.1)
[2022-01-10] MEDS: levothyroxine 150 mcg Tablet PO (05:26)
[2022-01-10] MEDS: bumetanide 0.25 mg/mL SDV 10 mL 2 MG IVP ×3 (05:26→21:08)
[2022-01-10] MEDS: hydrocortisone 10 mg Tablet 30 MG PO (05:26)
[2022-01-10] MEDS: pantoprazole DR 40 mg Tablet PO (05:26)
[2022-01-10] MEDS: potassium chloride ER 20 mEq Tablet 40 MEQ PO ×3 (05:33→11:34)
[2022-01-10] MEDS: meclizine 25 mg tablet PO (06:13)
[2022-01-10] MEDS: metoclopramide 5 mg/mL SDV 2 mL IVP (06:22)
[2022-01-10 06:37] LABS: Glucose Point of Care 134 mg/dL (70-110)
[2022-01-10] MEDS: magnesium sulfate premix 4 GM/100 ML PREMIX IV (09:08)
[2022-01-10] MEDS: spironolactone 25 mg Tablet 12.5 MG PO (09:09)
[2022-01-10] MEDS: cefdinir 300 MG CAPSULE PO ×2 (10:04→21:08)
[2022-01-10 11:33] LABS: Glucose Point of Care 134 mg/dL (70-110)
[2022-01-10] MEDS: apixaban 5 mg Tablet PO ×2 (11:34→21:07)
--- NOTE | 2022-01-10 12:27 | PM.PN ---
Subjective Subjective: Patient continues to complain of lower extremity, bilateral pitting edema, she is worried about her low potassium levels, she is frustrated about her strict diet, she tells me that she is worried about going home too soon Vitals/I&O/Wt Last Vital Signs Temp 97.5 F L 01/10/22 11:11 Pulse 78 01/10/22 11:11 Resp 17 01/10/22 11:11 BP 115/76 01/10/22 11:11 Pulse Ox 90 01/10/22 11:11 O2 Del Method 01/10/22 11:11 01/09/22 01/10/22 01/10/22 22:59 06:59 14:59 Intake Total 300 / 885 460 / 460 Output Total 600 / 1800 Balance 300 / -315 -600 / -915 460 / 460 Weight last 48 hrs Weight 145.422 kg Weight 146.057 kg Physical Exam Const: COMMON NORMALS: no acute distress and patient oriented x3 Resp: COMMON NORMALS: normal respiratory effort, No retractions, No use of accessory muscles and clear to auscultation bilaterally AUSCULTATION: clear to auscultation bilaterally Cardio: COMMON NORMALS: regular rate, regular rhythm, S1 normal heart sound present and S2 normal heart sound present RATE: regular rate RHYTHM: regular rhythm HEART SOUNDS: S1 normal heart sound present and S2 normal heart sound present GI: COMMON NORMALS: Normal to inspection, nondistended, normoactive bowel sounds present and non-tender Extremity: NARRATIVE EXTREMITY EXAM: Bilateral lower extremity 1+ pitting edema Neuro: COMMON NORMALS: patient oriented x3 Psych: COMMON NORMALS: mental status grossly normal Urinary Catheter Management: Zurita: Cath Placed During This Visit: yes Reason for Continuing Indwelling Catheter: Acute Urinary Retention or Obstruction Urinary Catheter Date of Insertion: 12/29/21 Urinary Catheter Time of Insertion: 11:30 Data : 01/02/22 05:24 01/10/22 02:30 A&P Assessment and plan (1) Acute kidney injury superimposed on CKD: see below Plan (1) Light headedness: (2) Hypotension: (3) Volume overload: (4) Acute kidney injury superimposed on CKD: (5) Obesity, morbid, BMI 50 or higher: (6) Atrial fibrillation: (7) chest tightness?resolved Plan Fluid overload, anasarca, bilateral lower extremity edema -She has gained 30 pounds as outpatient. -Her dry weight is 300 pounds -She has bilateral 1+ pitting edema -Her baseline creatinine is anywhere between 1-1.6. Cr 1.4 today -32 L as per chart. according to pt her urine output is not being charted accurately, her weights 320 pounds ? Continue hydrocortisone orally 30 mg in a.m. and 15 mg at p.m. ? Trops negative. EKG nonischemic. Echo did not show wall motion abnormality. Pt refused to undergo stress test as she had one 2 months ago. ? Continue Eliquis. ? Continue on Bumex 2 mg TID IV daily. Continue on this dose. She was given one-time dose of metolazone yesterday. We will give another dose of metolazone today. Plan to switch to oral tomorrow. ? Creatinine better today. Creatinine 1.4. -Continue home Eliquis, monitor GFR closely -Stop midodrine. Stop Entresto. ?Continue to diurese patient. Continue to monitor levels for now. -DVT medical events potassium this morning started 40 every 8 hours - COnsult cardiology. Appreciate recommendations Continue on ceftriaxone for cellulitis. ? Potassium 40 3 times daily orally. Strict order placed for no outside food allowed in hospital. patient will need to avoid fast food due to high salt load given her HF, 1 cheat meal every 2 days, and at dinner -Full code -Heparin for DVT prophylaxis Attestations Medical Necessity Statement*: Patient requires hospitalization for fluid overload Coding Level of Care Code Acute Environmental Construction Engineer for [facility] Fwd Diagnoses Acute kidney injury superimposed on CKD N17.9; N18.9
[2022-01-10 17:12] LABS: Glucose Point of Care 123 mg/dL (70-110)
[2022-01-10] MEDS: hydrocortisone 10 mg Tablet 15 MG PO (17:26)
[2022-01-10] MEDS: cefTRIAXone 1,000 MG in sodium chloride 0.9% (plus) 50 ML 100 MG IV (17:27)
--- NOTE | 2022-01-10 17:51 | P.PN_ITS ---
Subjective Subjective: Patient seems to be diuresing fairly well. She lost around a total of 24 pounds so far since the hospital admission. Denies any chest pain. Has significant improvement of the shortness of breath. No orthopnea. No fever, chills or cough. Medications: Medication Review Details: Current Medications Alprazolam (Alprazolam 0.5 Mg Tablet) 0.5 mg PO BEDTIME PRN PRN Reason: ANXIETY Last Admin: 01/09/22 22:59 Dose: 0.5 mg Apixaban (Apixaban 5 Mg Tablet) 5 mg PO Q12H RAMIRO Last Admin: 01/10/22 11:34 Dose: 5 mg Bumetanide (Bumetanide 0.25 Mg/Ml Sdv 10 Ml) 2 mg IVP Q8H RAMIRO Last Admin: 01/10/22 14:27 Dose: 2 mg Cefdinir (Cefdinir 300 Mg Capsule) 300 mg PO Q12H RAMIRO; Protocol Last Admin: 01/10/22 10:04 Dose: 300 mg Denture Adhesive (Fixodent 39 Gm Tube) 1 applic DENTAL PRN PRN PRN Reason: denture adhesive Last Admin: 12/30/21 11:41 Dose: 1 appful Dextrose (Dextrose 50% Syringe 50 Ml) 25 ml IVP ONCE PRN; Protocol PRN Reason: hypoglycemia protocol Dextrose (Dextrose 50% Syringe 50 Ml) 50 ml IVP PRN PRN; Protocol PRN Reason: hypoglycemia protocol Dextrose (Dextrose 50% Syringe 50 Ml) 25 ml IVP ONCE PRN; Protocol PRN Reason: hypoglycemia protocol Dextrose (Dextrose 50% Syringe 50 Ml) 50 ml IVP PRN PRN; Protocol PRN Reason: hypoglycemia protocol Glucagon (Glucagon 1 Mg/Ml Inj 1 Ml) 1 mg IM ONCE PRN; Protocol PRN Reason: Adult Acute Hypoglycemia Prot. Glucagon (Glucagon 1 Mg/Ml Inj 1 Ml) 1 mg IM ONCE PRN; Protocol PRN Reason: Adult Acute Hypoglycemia Prot. Hydrocortisone (Hydrocortisone 10 Mg Tablet) 30 mg PO QAM [facility] Last Admin: 01/10/22 05:26 Dose: 30 mg Hydrocortisone (Hydrocortisone 10 Mg Tablet) 15 mg PO QPM [facility] Last Admin: 01/10/22 17:26 Dose: 15 mg Dextrose (D5w) 500 mls @ 100 mls/hr IV ONCE PRN; Protocol PRN Reason: Adult Acute Hypoglycemia Prot Dextrose (D5w) 500 mls @ 100 mls/hr IV ONCE PRN; Protocol PRN Reason: Adult Acute Hypoglycemia Prot Ceftriaxone Sodium 1,000 mg/ (Sodium Chloride) 50 mls @ 100 mls/hr IV Q24H [facility]; Protocol Last Admin: 01/10/22 17:27 Dose: 100 mls/hr Insulin Human Lispro (Insulin Lispro 100 Unit/1 Ml) 0 unit SUBCUT WM&BEDTIME [facility]; Protocol Last Admin: 01/10/22 17:22 Dose: Not Given Lactulose (Lactulose Oral Liq 20 Gm/30 Ml Udc) 20 gm PO Q8H [facility] Last Admin: 01/10/22 17:27 Dose: Not Given Levothyroxine Sodium (Levothyroxine 150 Mcg Tablet) 150 mcg PO QAM [facility] Last Admin: 01/10/22 05:26 Dose: 150 mcg Meclizine HCl (Meclizine 25 Mg Tablet) 25 mg PO BID PRN PRN Reason: DIZZINESS Last Admin: 01/10/22 06:13 Dose: 25 mg Metoclopramide HCl (Metoclopramide 5 Mg/Ml Sdv 2 Ml) 5 mg IVP ONCE PRN PRN Reason: NAUSEA AND VOMITING Last Admin: 01/10/22 06:22 Dose: 5 mg Neomycin/Polymyxin/Bacitracin (Twvsqkmf-Lvyv-Ecsrjkwcfq Oint 28 Gm) 1 applic TOPICAL BID PRN PRN Reason: open wound Last Admin: 01/01/22 20:15 Dose: 1 applic Potassium Cl Er (10meq Tabs) 4 each PO TID [facility] Last Admin: 01/10/22 14:44 Dose: 4 each Ondansetron HCl (Ondansetron 2 Mg/Ml Sdv 2 Ml) 4 mg IVP Q6H PRN PRN Reason: NAUSEA AND VOMITING Last Admin: 01/10/22 02:49 Dose: 4 mg Pantoprazole Sodium (Pantoprazole Dr 40 Mg Tablet) 40 mg PO QAM [facility] Last Admin: 01/10/22 05:26 Dose: 40 mg Polyethylene Glycol (Polyethylene Glycol 3350 Pkt 17 Gm) 17 gm PO DAILY PRN PRN Reason: Constipation Last Admin: 01/02/22 12:39 Dose: 17 gm Potassium Chloride (Potassium Chloride Er 20 Meq Tablet) 40 meq PO Q8H [facility] Stop: 01/13/22 11:59 Last Admin: 01/10/22 11:34 Dose: 40 meq Pramipexole Dihydrochloride (Pramipexole 0.25 Mg Tablet) 1 mg PO BEDTIME [facility] Last Admin: 01/09/22 20:46 Dose: 1 mg Spironolactone (Spironolactone 25 Mg Tablet) 12.5 mg PO DAILY [facility] Last Admin: 01/10/22 09:09 Dose: 12.5 mg Vitals/I&O/Wt Last Vital Signs Temp 97.8 F 01/10/22 16:00 Pulse 86 01/10/22 16:00 Resp 17 01/10/22 16:00 BP 126/70 01/10/22 16:00 Pulse Ox 90 01/10/22 16:00 O2 Del Method 01/10/22 16:00 01/10/22 01/10/22 01/10/22 06:59 14:59 22:59 Intake Total 700 / 700 Output Total 600 / 1800 1050 / 1050 Balance -600 / -915 -350 / -350 Weight last 48 hrs Weight 320 lb 9.6 oz Weight 322 lb Physical Exam Narrative: GENERAL: The patient is alert and oriented times three. Not in any acute distress. Morbidly obese. Breathing at the rate of 16 bpm. HEENT: No significant pallor, icterus or lymphadenopathy.Oral cavity: There are no mucous membrane lesions. NECK: Trachea appears to be central. No masses noted. No JVD or thyromegaly appreciated. RESPIRATORY: Chest is symmetrical. No intercostals muscle retraction or any accessory muscle activation. There is no chest wall tenderness. Breath sounds are heard bilaterally. No rales or rhonchi heard. No evidence of any consolidation. BREASTS: Deferred. HEART: The heart sounds are normal. No S3 or S4. No significant murmurs. No pericardial rub ABDOMEN: No vessel pulsations or distention. Obese no tenderness. No organomegaly appreciated. Bowel sounds are normally heard. : Deferred. RECTAL: Deferred. LYMPHATIC: No lymphadenopathy noted in the neck. EXTREMITIES:1+ edema both lower extremities. MUSCULOSKELETAL: No acute joint deformities or swelling SKIN: There are no significant rashes or ecchymosis NEUROPSYCHIATRIC: The patient is alert and oriented x3. Appears to be in a good mood. No tremors or rigidity noted. Urinary Catheter Management: Zurita: Cath Placed During This Visit: yes Reason for Continuing Indwelling Catheter: Accurate Measurement of Urinary Output in Critically Ill Patients Urinary Catheter Date of Insertion: 12/29/21 Urinary Catheter Time of Insertion: 11:30 Data : 01/02/22 05:24 01/10/22 02:30 Other Labs: Laboratory Last Values WBC 15.1 10^3/uL (4.0-10.0) H 01/02/22 05:24 RBC 5.59 10^6/uL (4.1-5.3) H 01/02/22 05:24 Hgb 12.5 g/dL (11.5-15.3) 01/02/22 05:24 Hct 43.4 % (37.0-47.0) 01/02/22 05:24 MCV 77.6 fl (81-99) L 01/02/22 05:24 MCH 22.4 pg (28.0-34.0) L 01/02/22 05:24 MCHC 28.8 g/dL (30.0-36.0) L 01/02/22 05:24 RDW 17.8 % (12.1-15.1) H 01/02/22 05:24 Plt Count 291 10^3/cmm (130-400) 01/02/22 05:24 MPV 10.1 fL (7.4-10.4) 01/02/22 05:24 Neut % (Auto) 76.0 % 01/02/22 05:24 Lymph % (Auto) 10.5 % 01/02/22 05:24 Pitkin % (Auto) 9.8 % 01/02/22 05:24 Eos % (Auto) 1.5 % 01/02/22 05:24 Baso % (Auto) 0.4 % 01/02/22 05:24 Neut # (Auto) 11.47 10^3/uL (1.8-7.7) H 01/02/22 05:24 Lymph # (Auto) 1.6 10^3/uL (0.8-4.8) 01/02/22 05:24 Pitkin # (Auto) 1.5 10^3/uL (0.2-0.9) H 01/02/22 05:24 Eos # (Auto) 0.2 10^3/uL (0.0-0.8) 01/02/22 05:24 Baso # (Auto) 0.1 10^3/uL (0.0-0.1) 01/02/22 05:24 Nucleated RBC % (auto) 0 % 01/02/22 05:24 Nucleated RBCs # 0.0 /100WBC 01/02/22 05:24 ESR 22 mm/hr (0-15) H 12/29/21 16:00 Sodium 133 mmol/L (136-145) L 01/10/22 02:30 Potassium 2.6 mmol/L (3.5-5.1) L* 01/10/22 02:30 Chloride 93 mmol/L (98-107) L 01/10/22 02:30 Carbon Dioxide 27 mmol/L (22-29) 01/10/22 02:30 Anion Gap 15.6 (5-19) 01/10/22 02:30 BUN 26 mg/dL (8-23) H 01/10/22 02:30 Creatinine 1.4 mg/dL (0.5-0.9) H 01/10/22 02:30 GFR Calculation 37.3 mL/min (90-130) L 01/10/22 02:30 Glucose 126 mg/dL (65-115) H 01/10/22 02:30 POC Glucose 123 mg/dL (70-110) H 01/10/22 17:06 Estimat Average Glucose 117 01/01/22 05:00 Hemoglobin A1c 5.7 % (4.0-6.0) 01/01/22 05:00 Calculated Osmolality 282 mOsm/kg (285-295) L 01/10/22 02:30 Lactate 1.4 mmol/L (0.5-2.2) 12/29/21 16:00 Calcium 9.7 mg/dL (8.5-10.5) 01/10/22 02:30 Phosphorus 3.9 mg/dL (2.5-4.5) 01/02/22 05:24 Magnesium 1.6 mg/dL (1.7-2.3) L 01/10/22 02:30 Total Bilirubin 0.4 mg/dL (0.15-1.2) 01/02/22 05:24 AST 10 U/L (0-32) 01/02/22 05:24 ALT 19 U/L (0-33) 01/02/22 05:24 Alkaline Phosphatase 123 U/L (35-105) H 01/02/22 05:24 Troponin T Baseline 13 ng/L (0-10) H 01/04/22 14:48 Troponin T 120 Minute 11.35 ng/L (0-10) H 01/04/22 16:50 Delta Troponin T -1.65 ABS# (0-10) L 01/04/22 16:50 Troponin T Hi Sens 6Hr 12.16 ng/L (0-10) H 01/04/22 21:00 Troponin T Hi Sens 6Hr Delta -0.84 ng/L (0-12) L 01/04/22 21:00 C-Reactive Protein 45.6 mg/L (0.0-4.9) H 12/29/21 14:53 NT-Pro-B Natriuret Pep 107 pg/mL (0-125) 12/28/21 18:05 Total Protein 7.2 g/dL (6.6-8.7) 01/02/22 05:24 Albumin 3.9 g/dL (3.5-5.2) 01/02/22 05:24 Globulin 3.3 g/dL (1.3-4.6) 01/02/22 05:24 Lipase 54 U/L (13-60) 12/28/21 18:05 25-OH Vitamin D Total 21 ng/mL (30-100) L 12/31/21 01:48 Procalcitonin 0.12 ng/mL (0-0.5) 12/29/21 14:53 TSH 0.89 uIU/mL (0.27-4.20) 12/28/21 18:05 Free T4 2.04 ng/dL (0.82-1.77) H 12/28/21 18:05 PTH Intact 102.2 pg/mL (15-65) H 12/31/21 01:48 Calcium (PTH Intact) 9.3 mg/dL (8.5-10.5) 12/31/21 01:48 Random Cortisol 0.52 ug/dL (2.47-19.5) L 12/28/21 18:05 Urine Color Colorless (Yellow) 12/29/21 11:12 Urine Appearance Clear (CLEAR) 12/29/21 11:12 Urine pH 7 (5-7) 12/29/21 11:12 Ur Specific Carrie 1.005 (1.005-1.030) 12/29/21 11:12 Urine Protein Neg (Negative) 12/29/21 11:12 Urine Glucose (UA) 2+ (Normal) H 12/29/21 11:12 Urine Ketones Negative (Negative) 12/29/21 11:12 Urine Blood Trace (Negative) H 12/29/21 11:12 Urine Nitrate Negative (Negative) 12/29/21 11:12 Urine Bilirubin Neg (Negative) 12/29/21 11:12 Urine Urobilinogen Norm mg/dL (Negative) 12/29/21 11:12 Ur Leukocyte Esterase Negative (Negative) 12/29/21 11:12 Urine RBC 0-4 /hpf (0-2) H 12/29/21 11:12 Urine WBC Rare /hpf (0-5) 12/29/21 11:12 Ur Squamous Epith Cells Rare /hpf (0-5) 12/29/21 11:12 Amorphous Sediment Not Reportable 12/29/21 11:12 Urine Bacteria Trace /hpf (NONE) 12/29/21 11:12 A&P Assessment and plan (1) CHF (congestive heart failure): She is still on the Bumex 2 mg every 8 hours. She may be switched to the p.o. Bumex 2 mg every 6 hours tomorrow. Qualifiers: Heart failure chronicity: acute Heart failure type: unspecified Qualified Code(s): I50.9 - Heart failure, unspecified (2) Acute kidney injury superimposed on CKD: The kidney function and electrolytes need to be closely monitored. She still seems to be hypokalemic. We may increase her p.o. potassium intake. Apparently she does not want to take the IV potassium. (3) Hx of atrial fibrillation, no current medication: Patient is staying in the sinus rhythm. May continue on the current medic ations. 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 (4) Hyperaldosteronism: May continue on the current medications. She is hypokalemic. The dose of the potassium was increased today. Scheduled for repeat BMP tomorrow. Plan Other problems are Hypokalemia-the potassium is being supplemented Leukocytosis, etiology? Type 2 diabetes Hypothyroidism, clinically euthyroid Continue Bumex 2 mg every 8 hours for today Bumex 2 mg p.o. every 6 hours from tomorrow onwards Potassium supplement as per Dr. 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
[2022-01-10 18:56] LABS: Blood Urea Nitrogen 25 mg/dL (8-23); Carbon Dioxide 24 mmol/L (22-29); Chloride 89 mmol/L (98-107); Glomerular Filtration Rate 34.4 mL/min (90-130); Glucose 127 mg/dL (65-115); Osmolality Calculated 268 mOsm/kg (285-295); Sodium 126 mmol/L (136-145)
[2022-01-10 19:01] LABS: Anion Gap 16.6 (5-19); Potassium 3.6 mmol/L (3.5-5.1)
[2022-01-10 20:34] LABS: Glucose Point of Care 245 mg/dL (70-110)
[2022-01-10] MEDS: pramipexole 0.25 mg Tablet 1 MG PO (21:08)
[2022-01-10] MEDS: insulin lispro 100 unit/1 mL SUBCUT (21:09)
[2022-01-11] VITALS (7 sets, daily range): BP systolic 103–130; BP diastolic 61–87; PULSE 56–86; RESP 17–22; TEMP 36.4–37; O2SAT 91–94
[2022-01-11] MEDS: bumetanide 0.25 mg/mL SDV 10 mL 2 MG IVP (05:15)
[2022-01-11] MEDS: levothyroxine 150 mcg Tablet PO (05:15)
[2022-01-11] MEDS: hydrocortisone 10 mg Tablet 30 MG PO (05:15)
[2022-01-11] MEDS: pantoprazole DR 40 mg Tablet PO (05:15)
[2022-01-11] MEDS: ondansetron 2 mg/ML SDV 2 mL 4 MG IVP (06:33)
[2022-01-11 06:39] LABS: Glucose Point of Care 127 mg/dL (70-110)
[2022-01-11] MEDS: spironolactone 25 mg Tablet 12.5 MG PO (08:20)
--- NOTE | 2022-01-11 09:06 | PC.SOCIAL ---
Imm update Imm updated with patient at bedside. Copy of page 2 provided. Patient verbalized understanding. Copy in chart initialed, dated and timed.
[2022-01-11] MEDS: cefdinir 300 MG CAPSULE PO (09:38)
[2022-01-11] MEDS: apixaban 5 mg Tablet PO (10:09)
[2022-01-11 10:25] LABS: Basophils # 0.1 10^3/uL (0.0-0.1); Basophils % 0.9 %; Eosinophils # 0.3 10^3/uL (0.0-0.8); Eosinophils % 2.4 %; Hematocrit 47.4 % (37.0-47.0); Hemoglobin 13.5 g/dL (11.5-15.3); Lymphocytes # 0.8 10^3/uL (0.8-4.8); Lymphocytes % 6.6 %; Mean Corpuscular HGB Conc 28.5 g/dL (30.0-36.0); Mean Corpuscular Hemoglobin 22.5 pg (28.0-34.0); Mean Corpuscular Volume 79.1 fl (81-99); Monocytes % 7.9 %; Neutrophils # 10.35 10^3/uL (1.8-7.7); Neutrophils % 80.8 %; Nucleated Red Blood Cells % 0 %; Platelet Count 239 10^3/cmm (130-400); Red Blood Count 5.99 10^6/uL (4.1-5.3); Red Cell Distribution Width 18.6 % (12.1-15.1); White Blood Count 12.8 10^3/uL (4.0-10.0)
[2022-01-11 10:52] LABS: Alanine Aminotransferase 20 U/L (0-33); Albumin Level 3.5 g/dL (3.5-5.2); Alkaline Phosphatase 106 U/L (35-105); Blood Urea Nitrogen 23 mg/dL (8-23); Calcium 9.8 mg/dL (8.5-10.5); Carbon Dioxide 23 mmol/L (22-29); Chloride 89 mmol/L (98-107); Globulin 3.7 g/dL (1.3-4.6); Glomerular Filtration Rate 34.4 mL/min (90-130); Glucose 144 mg/dL (65-115); Osmolality Calculated 272 mOsm/kg (285-295); Sodium 128 mmol/L (136-145); Total Bilirubin 0.7 mg/dL (0.15-1.2); Total Protein 7.2 g/dL (6.6-8.7)
[2022-01-11 10:59] LABS: Anion Gap 19.1 (5-19); Aspartate Amino Transferase 17 U/L (0-32); Potassium 3.1 mmol/L (3.5-5.1)
[2022-01-11 11:30] LABS: Glucose Point of Care 149 mg/dL (70-110)
[2022-01-11] MEDS: insulin lispro 100 unit/1 mL SUBCUT (12:28)
--- NOTE | 2022-01-11 13:05 | P.PN_ITS ---
Subjective Subjective: Patient was seen this morning, overall she is feeling better, she is wondering when it is time for her to leave the hospital Vitals/I&O/Wt Last Vital Signs Temp 98.1 F 01/11/22 11:51 Pulse 85 01/11/22 11:51 Resp 18 01/11/22 11:51 BP 103/72 01/11/22 11:51 Pulse Ox 91 01/11/22 11:51 O2 Del Method 01/11/22 07:22 01/10/22 01/11/22 01/11/22 22:59 06:59 14:59 Intake Total 290 / 990 Output Total 850 / 1900 1400 / 3300 Balance -560 / -910 -1400 / -2310 Weight last 48 hrs Weight 145.195 kg Weight 145.422 kg Physical Exam Const: COMMON NORMALS: no acute distress and patient oriented x3 Resp: COMMON NORMALS: normal respiratory effort, No retractions, No use of accessory muscles and clear to auscultation bilaterally AUSCULTATION: clear to auscultation bilaterally Cardio: COMMON NORMALS: regular rate, regular rhythm, S1 normal heart sound present and S2 normal heart sound present RATE: regular rate RHYTHM: regular rhythm HEART SOUNDS: S1 normal heart sound present and S2 normal heart sound present GI: COMMON NORMALS: Normal to inspection, nondistended, normoactive bowel sounds present, non-tender and no masses Extremity: COMMON NORMALS: no pedal edema Neuro: COMMON NORMALS: patient oriented x3 Psych: COMMON NORMALS: mental status grossly normal Urinary Catheter Management: [place]: Cath Placed During This Visit: yes Reason for Continuing Indwelling Catheter: Acute Urinary Retention or Obstruction Urinary Catheter Date of Insertion: 12/29/21 Urinary Catheter Time of Insertion: 11:30 Data : 01/11/22 10:15 01/11/22 10:15 A&P Assessment and plan (1) Acute kidney injury superimposed on CKD: see below Plan (1) Light headedness: (2) Hypotension: (3) Volume overload: (4) Acute kidney injury superimposed on CKD: (5) Obesity, morbid, BMI 50 or higher: (6) Atrial fibrillation: (7) chest tightness?resolved Plan Fluid overload, anasarca, bilateral lower extremity edema -She has gained 30 pounds as outpatient. -Her dry weight is 300 pounds -No pitting edema today -Her baseline creatinine is anywhere between 1-1.6. Cr 1.5 today - 35 L as per chart. according to pt her urine output is not being charted ac curately, she tells me she is lost about 24 pounds ? Continue hydrocortisone orally 30 mg in a.m. and 15 mg at p.m. ? Trops negative. EKG nonischemic. Echo did not show wall motion abnormality. Pt refused to undergo stress test as she had one 2 months ago. ? Continue Eliquis. ? De-escalate to Bumex 2 mg p.o. 3 times daily, as her sensorium is moderate ? Creatinine better today. Creatinine 1.5 -Continue home Eliquis, monitor GFR closely -Stop midodrine. Stop Entresto. ?Continue to diurese patient. Continue to monitor levels for now. -DVT medical events potassium this morning started 40 every 8 hours - COnsult cardiology. Appreciate recommendations Continue on ceftriaxone for cellulitis. ? Potassium 40 3 times daily orally. Strict order placed for no outside food allowed in hospital. 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
[2022-01-11] MEDS: bumetanide 1 mg Tablet 2 MG PO (13:24)
[2022-01-11] MEDS: potassium chloride ER 20 mEq Tablet PO (13:24)
[2022-01-11] MEDS: potassium chloride ER 20 mEq Tablet 40 MEQ PO (13:26)
--- NOTE | 2022-01-11 14:40 | P.DS_ITS ---
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 for fluid overload Patient was admitted to [facility] for fluid overload, required prolonged hospitalization, diuresed over 35 L, weight decreased by 24 pounds, with Bumex therapy, potassium replacement therapy, intermittent metolazone, cardiology was consulted, in addition nephrology was consulted. On 01/11/2022 at roughly 2:30 PM patient was adamant about going home she just has been switched over from IV Bumex to p.o. Bumex early on in the morning, I advised her that I am very concerned about her going home too soon as her serum sodium is 128, potassium 3.1, creatinine is 1.5 and she continues to have some mild pitting edema. I am worried about recurrence of her fluid overload, worsening respiratory failure, recurrent hospitalization, hypokalemia, hyperkalemia, cardiac arrhythmias, morbidity and mortality, hyponatremia, morbidity mortality associated including not limited to cerebral edema, and worsening kidney function. However patient was very adamant about going home, discussed risks of going home too early, she voiced understanding all questions answered however remains adamantly wanted to go home. I will discharge her on Bumex 2 mg every 6 hours with potassium replacement therapy 40 mEq every 6 hours. She will see her primary care provider tomorrow for recheck serum sodium which is 128 on discharge, potassium which is 3.1 on discharge, creatinine was 1.5 on discharge. She in addition will see cardiology in 1 week. On discharge her Entresto has been discontinued. Physical Exam Const: COMMON NORMALS: no acute distress Resp: COMMON NORMALS: normal respiratory effort, No retractions, No use of accessory muscles and clear to auscultation bilaterally AUSCULTATION: clear to auscultation bilaterally Cardio: COMMON NORMALS: regular rate, regular rhythm, S1 normal heart sound present and S2 normal heart sound present RATE: regular rate RHYTHM: regular rhythm HEART SOUNDS: S1 normal heart sound present and S2 normal heart sound present GI: COMMON NORMALS: Normal to inspection, nondistended, normoactive bowel sounds present and non-tender Urinary Catheter Management: [place]: Cath Placed During This Visit: yes, but has since been removed by the nurse Reason for Continuing Indwelling Catheter: Decision to DC Catheter Urinary Catheter Date of Insertion: 12/29/21 Urinary Catheter Time of Insertion: 11:30 Date Urinary Catheter Removed: 01/11/22 Time Urinary Catheter Discontinued: 13:30 Discharge Data Studies Completed and Pending Completed Studies During Hospitalization Category Date Time Status CT abdomen pelvis wo con [id number] Routine Cat Scan 01/06/22 12:18 Completed XR chest 1V portable [id number] Stat Exams 12/28/21 17:36 Completed CV. echo lmt w/w contras [id number] Urgent Ultrasound 01/04/22 14:40 Completed Pending at discharge Category Date Time Status Sestamibi Stress Test Request Routine Exams 01/04/22 14:38 Stop Req Basic Metabolic Panel AM LABS Lab 01/12/22 04:00 Ordered Basic Metabolic Panel AM LABS Lab 01/13/22 04:00 Ordered Basic Metabolic Panel AM LABS Lab 01/14/22 04:00 Ordered Complete Blood Count w/Auto AM LABS Lab 01/12/22 04:00 Ordered Complete Blood Count w/Auto AM LABS Lab 01/13/22 04:00 Ordered Complete Blood Count w/Auto AM LABS Lab 01/14/22 04:00 Ordered Magnesium AM LABS Lab 01/12/22 04:00 Ordered Magnesium AM LABS Lab 01/13/22 04:00 Ordered Magnesium AM LABS Lab 01/14/22 04:00 Ordered Radiology Impressions Chest X-Ray 12/28/21 17:36 IMPRESSION: 1. No acute cardiopulmonary process. 2. Incidental/nonacute findings are listed in the report. Abdomen/Pelvis CT 01/06/22 12:18 IMPRESSION: 1. No acute abdominal or pelvic abnormalities. 2. Prior hysterectomy. 3. Sigmoid diverticulosis without acute diverticulitis. 4. No renal obstruction. 5. No ascites. Laboratory Results WBC 12.8 10^3/uL (4.0-10.0) H 01/11/22 10:15 RBC 5.99 10^6/uL (4.1-5.3) H 01/11/22 10:15 Hgb 13.5 g/dL (11.5-15.3) 01/11/22 10:15 Hct 47.4 % (37.0-47.0) H 01/11/22 10:15 MCV 79.1 fl (81-99) L 01/11/22 10:15 MCH 22.5 pg (28.0-34.0) L 01/11/22 10:15 MCHC 28.5 g/dL (30.0-36.0) L 01/11/22 10:15 RDW 18.6 % (12.1-15.1) H 01/11/22 10:15 Plt Count 239 10^3/cmm (130-400) 01/11/22 10:15 MPV 11.0 fL (7.4-10.4) H 01/11/22 10:15 Neut % (Auto) 80.8 % 01/11/22 10:15 Lymph % (Auto) 6.6 % 01/11/22 10:15 [place] % (Auto) 7.9 % 01/11/22 10:15 Eos % (Auto) 2.4 % 01/11/22 10:15 Baso % (Auto) 0.9 % 01/11/22 10:15 Neut # (Auto) 10.35 10^3/uL (1.8-7.7) H 01/11/22 10:15 Lymph # (Auto) 0.8 10^3/uL (0.8-4.8) 01/11/22 10:15 [place] # (Auto) 1.0 10^3/uL (0.2-0.9) H 01/11/22 10:15 Eos # (Auto) 0.3 10^3/uL (0.0-0.8) 01/11/22 10:15 Baso # (Auto) 0.1 10^3/uL (0.0-0.1) 01/11/22 10:15 Nucleated RBC % (auto) 0 % 01/11/22 10:15 Nucleated RBCs # 0.0 /100WBC 01/11/22 10:15 ESR 22 mm/hr (0-15) H 12/29/21 16:00 Sodium 128 mmol/L (136-145) L 01/11/22 10:15 Potassium 3.1 mmol/L (3.5-5.1) L 01/11/22 10:15 Chloride 89 mmol/L (98-107) L 01/11/22 10:15 Carbon Dioxide 23 mmol/L (22-29) 01/11/22 10:15 Anion Gap 19.1 (5-19) H 01/11/22 10:15 BUN 23 mg/dL (8-23) 01/11/22 10:15 Creatinine 1.5 mg/dL (0.5-0.9) H 01/11/22 10:15 GFR Calculation 34.4 mL/min (90-130) L 01/11/22 10:15 Glucose 144 mg/dL (65-115) H 01/11/22 10:15 POC Glucose 149 mg/dL (70-110) H 01/11/22 11:17 Estimat Average Glucose 117 01/01/22 05:00 Hemoglobin A1c 5.7 % (4.0-6.0) 01/01/22 05:00 Calculated Osmolality 272 mOsm/kg (285-295) L 01/11/22 10:15 Lactate 1.4 mmol/L (0.5-2.2) 12/29/21 16:00 Calcium 9.8 mg/dL (8.5-10.5) 01/11/22 10:15 Phosphorus 3.9 mg/dL (2.5-4.5) 01/02/22 05:24 Magnesium 2.0 mg/dL (1.7-2.3) 01/11/22 10:15 Total Bilirubin 0.7 mg/dL (0.15-1.2) 01/11/22 10:15 AST 17 U/L (0-32) 01/11/22 10:15 ALT 20 U/L (0-33) 01/11/22 10:15 Alkaline Phosphatase 106 U/L (35-105) H 01/11/22 10:15 Troponin T Baseline 13 ng/L (0-10) H 01/04/22 14:48 Troponin T 120 Minute 11.35 ng/L (0-10) H 01/04/22 16:50 Delta Troponin T -1.65 ABS# (0-10) L 01/04/22 16:50 Troponin T Hi Sens 6Hr 12.16 ng/L (0-10) H 01/04/22 21:00 Troponin T Hi Sens 6Hr Delta -0.84 ng/L (0-12) L 01/04/22 21:00 C-Reactive Protein 45.6 mg/L (0.0-4.9) H 12/29/21 14:53 NT-Pro-B Natriuret Pep 107 pg/mL (0-125) 12/28/21 18:05 Total Protein 7.2 g/dL (6.6-8.7) 01/11/22 10:15 Albumin 3.5 g/dL (3.5-5.2) 01/11/22 10:15 Globulin 3.7 g/dL (1.3-4.6) 01/11/22 10:15 Lipase 54 U/L (13-60) 12/28/21 18:05 25-OH Vitamin D Total 21 ng/mL (30-100) L 12/31/21 01:48 Procalcitonin 0.12 ng/mL (0-0.5) 12/29/21 14:53 TSH 0.89 uIU/mL (0.27-4.20) 12/28/21 18:05 Free T4 2.04 ng/dL (0.82-1.77) H 12/28/21 18:05 PTH Intact 102.2 pg/mL (15-65) H 12/31/21 01:48 Calcium (PTH Intact) 9.3 mg/dL (8.5-10.5) 12/31/21 01:48 Random Cortisol 0.52 ug/dL (2.47-19.5) L 12/28/21 18:05 Urine Color Colorless (Yellow) 12/29/21 11:12 Urine Appearance Clear (CLEAR) 12/29/21 11:12 Urine pH 7 (5-7) 12/29/21 11:12 Ur Specific [place] 1.005 (1.005-1.030) 12/29/21 11:12 Urine Protein Neg (Negative) 12/29/21 11:12 Urine Glucose (UA) 2+ (Normal) H 12/29/21 11:12 Urine Ketones Negative (Negative) 12/29/21 11:12 Urine Blood Trace (Negative) H 12/29/21 11:12 Urine Nitrate Negative (Negative) 12/29/21 11:12 Urine Bilirubin Neg (Negative) 12/29/21 11:12 Urine Urobilinogen Norm mg/dL (Negative) 12/29/21 11:12 Ur Leukocyte Esterase Negative (Negative) 12/29/21 11:12 Urine RBC 0-4 /hpf (0-2) H 12/29/21 11:12 Urine WBC Rare /hpf (0-5) 12/29/21 11:12 Ur Squamous Epith Cells Rare /hpf (0-5) 12/29/21 11:12 Amorphous Sediment Not Reportable 12/29/21 11:12 Urine Bacteria Trace /hpf (NONE) 12/29/21 11:12 Vitals Last Vital Signs Temp 98.1 F 01/11/22 11:51 Pulse 85 01/11/22 11:51 Resp 18 01/11/22 11:51 BP 103/72 01/11/22 11:51 Pulse Ox 91 01/11/22 11:51 O2 Del Method 01/11/22 07:22 Discharge Plan Discharge Patient Disposition: Home Condition: Stable Prescriptions: New Eliquis 5 mg Tablet 5 mg PO Q12H 30 Days Qty: 60 0RF spironolactone 25 mg Tablet 12.5 mg PO DAILY 30 Days Qty: 30 0RF bumetanide 1 mg Tablet 2 mg PO Q6H 30 Days Qty: 240 0RF Rx Instructions: with potassium potassium chloride [Klor-Con M20] 20 mEq Tablet,Er Particles/Crystals 40 meq PO Q6H 30 Days Qty: 240 0RF Rx Instructions: with bumex therapy Continued epinephrine [EpiPen 2-Nabeel] 0.3 mg/0.3 mL auto-injector 0.3 mg IM Q10M PRN (Reason: anaphylaxis) Qty: 2 3RF Rx Instructions: for 3 doses silver sulfadiazine [Silvadene] 1 % cream 1 applic topical BID Qty: 50 2RF Rx Instructions: apply a 1.5 mm thickness pregabalin [Lyrica] 150 mg capsule 150 mg PO BID 90 Days Qty: 180 0RF levothyroxine 175 mcg tablet 175 mcg PO QAM 90 Days Qty: 90 1RF polyethylene glycol 3350 [Miralax] 17 gram/dose Powder 17 g PO DAILY PRN (Reason: Constipation) pramipexole [Mirapex] 0.5 mg tablet 1 mg PO BEDTIME pantoprazole [Protonix] 40 mg tablet,delayed release (DR/EC) 40 mg PO QAM Jardiance 10 mg tablet 10 mg PO QAM Ozempic 0.25 mg or 0.5 mg(2 mg/1.5 mL) pen injector 1 mg SUBCUT Q7D Rx Instructions: on monday dexamethasone 1 mg tablet 1 mg PO QAM Discontinued bumetanide 1 mg tablet 2 mg PO BID metolazone 5 mg tablet 5 mg PO DAILY PRN (Reason: Edema) bumetanide 1 mg tablet 1 mg PO DAILY PRN (Reason: Edema) cefdinir 300 mg capsule 300 mg PO BID 5 Days Qty: 10 0RF Entresto 24-26 mg Tablet 1 tab PO DAILY potassium chloride 10 mEq tablet extended release 40 meq PO BID No Action (DME) Pharmacist Choice Strip See Rx Instructions .Route Qty: 50 2RF Rx Instructions: AC and HS (DME) blood-glucose meter,continuous Misc See Rx Instructions .Route Qty: 1 0RF Rx Instructions: As directed one meter with all necessary supplies (DME) cpap mask and supplies See Rx Instructions .Route .MEDSUPPLY Qty: 1 0RF Rx Instructions: As directed (DME) diabetic supplies, miscellan. Misc See Rx Instructions .Route Qty: 1 0RF Rx Instructions: As directed Discharge Orders: Discharge Order (Routine); Ordered 01/11/22 Ordered By: Jay Wright Referrals: Crys Glover NP [Primary Care Provider] - 1-3 days Mariana Lawrence FNP [Nurse Practitioner] - 4-7 days Discharge Diet: Cardiac Discharge Activity: Resume usual activity Patient Instructions: Opioid Safety Activity Restrictions/Additional Instructions: - See your primary care provider, tomorrow, recheck a BMP and potassium tomorrow, and sodium tomorrow, potassium discharge 3.1, creatinine 1.5, sodium 128 -Take Bumex 2 mg every 6 hours, with potassium 40 mEq every 6 hours with Bumex -Monitor weight daily -Primary care can titrate Bumex down to 2 mg every 8 hours with potassium 40 mg every 8 hours depending on clinical progress, creatinine and potassium -Please limit fluid intake between 1.5 to 2 L -Please see cardiology in 1 week Discharge Attestations Time Spent in Discharge Care*: less than 30 min Quality Metrics Clinical Quality Measures [ No reported AMI, CVA or VTE this stay] Coding Level of Care Code Acute Chg FW DC note Diagnoses Acute kidney injury superimposed on CKD N17.9; N18.9
== END 2022-01-11 15:29 | disposition home or self-care (01) | DRG 291 ==
LOC: ER 20:13 → MEDSURG 20:43
PROVIDERS: Internal Medicine; Internal Medicine Nephrology; Admitting Provider Student in an Organized Health Care Education/Training Program; Emergency Provider Emergency Medicine; PCP Nurse Practitioner Family; Visit Provider Family Medicine
DX: I13.0 Hypertensive heart and chronic kidney disease with heart failure and stage 1 through stage 4 chronic kidney disease, or unspecified chronic kidney disease (principal); I50.33 Acute on chronic diastolic (congestive) heart failure; E27.40 Unspecified adrenocortical insufficiency; N17.9 Acute kidney failure, unspecified; Z68.43 Body mass index [BMI] 50.0-59.9, adult; L03.116 Cellulitis of left lower limb; L03.115 Cellulitis of right lower limb; E87.1 Hypo-osmolality and hyponatremia; I95.9 Hypotension, unspecified; E87.70 Fluid overload, unspecified; E11.22 Type 2 diabetes mellitus with diabetic chronic kidney disease; N18.9 Chronic kidney disease, unspecified; T46.5X5A Adverse effect of other antihypertensive drugs, initial encounter; T50.1X5A Adverse effect of loop [high-ceiling] diuretics, initial encounter; T50.2X5A Adverse effect of carbonic-anhydrase inhibitors, benzothiadiazides and other diuretics, initial encounter; I48.0 Paroxysmal atrial fibrillation; E66.9 Obesity, unspecified; E87.6 Hypokalemia; E89.3 Postprocedural hypopituitarism; E03.9 Hypothyroidism, unspecified; E26.9 Hyperaldosteronism, unspecified; G47.33 Obstructive sleep apnea (adult) (pediatric); I73.9 Peripheral vascular disease, unspecified; Z86.018 Personal history of other benign neoplasm; Z79.899 Other long term (current) drug therapy; Z96.82 Presence of neurostimulator; Z86.718 Personal history of other venous thrombosis and embolism; Z79.01 Long term (current) use of anticoagulants; Z86.711 Personal history of pulmonary embolism; D72.829 Elevated white blood cell count, unspecified
CPT/HCPCS: 36415; 36416; 51702; 71045; 74176; 80048; 80053; 80061; 81001; 82306; 82310; 82533; 82962; 83036; 83605; 83690; 83735; 83880; 83970; 84100; 84145; 84439; 84443; 84484; 85025; 85651; 86140; 87040; 87641; 93005; 96372; 97116; 97161; 97163; 99285; C8924; G0378; J0696; J1100; J1644; J1720; J1815; J2405; J2765; J3475; J3480; J3490; J7040; J7050; J8499; J8597; Q3014; Q9956

== ENCOUNTER 2022-01-12 12:23 | Inpatient (IN) | payer MEDICARE, OTHER, SELFPAY ==
[2022-01-12] VITALS (8 sets, daily range): BP systolic 102–139; BP diastolic 55–84; PULSE 62–104; RESP 12–20; TEMP 36.8; O2SAT 90–98
--- NOTE | 2022-01-12 12:44 | ECG_ITS ---
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 Measurements Intervals [place] Rate: 96 P: 72 VA: 145 QRS: -29 QRSD: 90 T: 28 QT: 373 QTc: 473 Interpretive Statements SINUS RHYTHM WITH FREQUENT SUPRAVENTRICULAR PREMATURE COMPLEXES LOW QRS VOLTAGE IN PRECORDIAL LEADS [QRS DEFLECTION < 1.0 mV IN CHEST LEADS] POSSIBLE ANTERIOR MYOCARDIAL INFARCTION , OF INDETERMINATE AGE [30 ms Q WAVE IN V3/V4, OR R < 0.2 mV IN V4] Compared to ECG 01/04/2022 18:34:51 Low QRS voltage now present Sinus arrhythmia no longer present Left-axis deviation no longer present Myocardial infarct finding still present Electronically Signed On 01-12-2022 22:29:24 CDT by Chris Sellers M.D. [id number]
--- NOTE | 2022-01-12 12:44 | XRR_ITS ---
PROCEDURE INFORMATION: Exam: XR Chest Exam date and time: 01/12/2022 12:58 PM Age: 71 years old Clinical indication: Dyspnea and shortness of breath; Additional info: Dyspnea, fatigue; Chf history TECHNIQUE: Imaging protocol: Radiologic exam of the chest. Views: 1 view. COMPARISON: CR (CHEST, ) 12/28/2021 5:41 PM FINDINGS: Lungs: Unremarkable. No consolidation. Pleural spaces: Unremarkable. No pleural effusion. No pneumothorax. Heart/Mediastinum: Cardiomegaly is identified. Bones/joints: Unremarkable. XR/XR chest 1V portable [id number] IMPRESSION: There are no acute concerning abnormalities.
--- NOTE | 2022-01-12 12:47 | W.ED.WEAKNES ---
HPI - Weakness General: Chief complaint: Weakness Stated complaint: Dizzines/ weakness Time Seen by Provider: 01/12/22 12:26 Source: patient Mode of arrival: EMS Limitations: no limitations History of Present Illness: See nursing assessment. Patient reportedly was discharged last night from the hospital after 2-week stay for fluid overload and hyponatremia. Patient has a history of atrial fibrillation, hypertension, chronic kidney disease stage III, type 2 diabetes mellitus, adrenal insufficiency, diastolic CHF. Patient asked to go home last night AGAINST MEDICAL ADVICE. Patient was discharged and patient states that she worsened throughout today. She states she vomited her potassium supplement and blood pressure medication. Associated symptoms: Reports nausea and vomiting; Denies chest pain, chills, fever(s) or headache(s) Review of Systems Const: Reports: fatigue and malaise; Denies: fever(s) or chills Eyes: Denies: change in vision ENMT: Denies: throat pain Card: Denies: chest pain or palpitations Resp: Denies: dyspnea or wheezing GI: Reports: nausea and vomiting; Denies: abdominal pain : Denies: flank pain Musc: Denies: neck pain or back pain Skin/Breast: Denies: rash or pruritus Neuro: Denies: headache(s) or numbness in extremities Psych: Denies: anxiety Charli/Lymph: Denies: enlarged lymph nodes PFSH ED PFSH: Medical History Acute kidney injury superimposed on chronic kidney disease Adrenal insufficiency Anasarca Anasarca Anasarca Anemia Benign essential hypertension with target blood pressure below 140/90 Central hypothyroidism CHF (congestive heart failure) CHF exacerbation Chronic back pain Follows at pain clinic for periodic injections COVID-19 (~09/2020) Edema Facet arthritis, degenerative, lumbar spine Fatigue Gastroenteritis History of anaphylaxis History of atrial fibrillation Intermittent, has not required long-term anticoagulation or focused treatment History of COVID-19 HTN (hypertension) Hyperaldosteronism 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 Increased nausea and vomiting Lumbar spondylolysis OAB (overactive bladder) Obesity Obesity, morbid, BMI 50 or higher Obstructive sleep apnea KP (obstructive sleep apnea) Paroxysmal atrial fibrillation Pituitary macroadenoma with extrasellar extension Prediabetes Pulmonary hypertension PVD (peripheral vascular disease) Steroid dependence Tachycardia Unsteady gait UTI (urinary tract infection) Venous (peripheral) insufficiency Volume overload Surgical History H/O shoulder surgery History of hysterectomy History of pituitary surgery S/P insertion of spinal cord stimulator Family History Father Cancer pancreatic cancer Sister No problems noted. 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 Physical Exam Const: COMMON NORMALS: no acute distress, patient oriented x3, alert and well nourished GENERAL APPEARANCE: cooperative HENMT: COMMON NORMALS: normocephalic and atraumatic HEAD & SCALP: normocephalic and atraumatic Eye: COMMON NORMALS: EOMs intact bilaterally Neck/C-Spine: COMMON NORMALS: full ROM, no lymphadenopathy, supple and no JVD Lymph: LYMPHATIC: no lymphadenopathy noted Chest: COMMONS NORMALS: normal inspection of the chest and normal palpation of entire chest wall Resp: COMMON NORMALS: normal respiratory effort, No retractions, No use of accessory muscles and clear to auscultation bilaterally AUSCULTATION: clear to auscultation bilaterally Cardio: COMMON NORMALS: no JVD, regular rate, regular rhythm and Peripheral pulses 2+ throughout RATE: regular rate RHYTHM: regular rhythm PERIPHERAL PULSES: Peripheral pulses 2+ throughout GI: COMMON NORMALS: Normal to inspection, nondistended, normoactive bowel sounds present, Soft to palpation and non-tender PALPATION: Yes Soft to palpation OTHER: Morbid obesity. : COMMON NORMALS: Yes no CVA tenderness BLADDER/KIDNEY EXAM: Yes no CVA tenderness Back/Pelvis: COMMON NORMALS: no CVA tenderness Extremity: COMMON NORMALS: normal to inspection and full ROM Neuro: COMMON NORMALS: patient oriented x3, CN's II-XII intact bilaterally, moves all extremities, no focal motor deficits and no sensory deficits noted SENSORIUM/ORIENTATION: Yes alert Psych: COMMON NORMALS: mental status grossly normal, Normal thought process present, cooperative, normal affect and speech normal SPEECH: Yes normal speech THOUGHT PROCESS: Normal thought process present Skin: COMMON NORMALS: no rashes or lesions noted GENERAL SKIN EXAM: no rashes or lesions noted Course Vital Signs: Vital signs: Vital Signs Pulse Rate 104 H 01/12/22 15:30 Respiratory Rate 20 H 01/12/22 15:30 Blood Pressure 105/59 01/12/22 15:30 Pulse Oximetry 97 01/12/22 15:30 Oxygen Delivery Me thod 01/12/22 15:30 Oxygen Flow Rate 2 01/12/22 15:30 MDM - Weakness Medical Decision Making Hyponatremia, general malaise 1600: Discussed with hospitalist Dr. Hernadez. He will talk to the hospitalist from last night and see the patient emergency room before he decides on admission status. 1615: Hospitalist Dr. Quintanilla stated that he will take the patient in instead of Dr. Hernadez. He will place admission orders for the patient. Patient notified of admission. Patient is unable to ambulate under her own power. Lab Data : 01/12/22 12:53 01/12/22 12:53 Radiology Impressions Chest X-Ray 01/12/22 12:44 IMPRESSION: There are no acute concerning abnormalities. Laboratory Results WBC 13.8 10^3/uL (4.0-10.0) H 01/12/22 12:53 RBC 5.86 10^6/uL (4.1-5.3) H 01/12/22 12:53 Hgb 13.2 g/dL (11.5-15.3) 01/12/22 12:53 Hct 45.6 % (37.0-47.0) 01/12/22 12:53 MCV 77.8 fl (81-99) L 01/12/22 12:53 MCH 22.5 pg (28.0-34.0) L 01/12/22 12:53 MCHC 28.9 g/dL (30.0-36.0) L 01/12/22 12:53 RDW 18.0 % (12.1-15.1) H 01/12/22 12:53 Plt Count 260 10^3/cmm (130-400) 01/12/22 12:53 MPV 10.1 fL (7.4-10.4) 01/12/22 12:53 Neut % (Auto) 64.2 % 01/12/22 12:53 Lymph % (Auto) 12.6 % 01/12/22 12:53 [place] % (Auto) 14.5 % 01/12/22 12:53 Eos % (Auto) 4.8 % 01/12/22 12:53 Baso % (Auto) 1.2 % 01/12/22 12:53 Neut # (Auto) 8.87 10^3/uL (1.8-7.7) H 01/12/22 12:53 Lymph # (Auto) 1.8 10^3/uL (0.8-4.8) 01/12/22 12:53 [place] # (Auto) 2.0 10^3/uL (0.2-0.9) H 01/12/22 12:53 Eos # (Auto) 0.7 10^3/uL (0.0-0.8) 01/12/22 12:53 Baso # (Auto) 0.2 10^3/uL (0.0-0.1) H 01/12/22 12:53 Nucleated RBC % (auto) 0 % 01/12/22 12:53 Nucleated RBCs # 0.0 /100WBC 01/12/22 12:53 Sodium 131 mmol/L (136-145) L 01/12/22 12:53 Potassium 3.1 mmol/L (3.5-5.1) L 01/12/22 12:53 Chloride 91 mmol/L (98-107) L 01/12/22 12:53 Carbon Dioxide 25 mmol/L (22-29) 01/12/22 12:53 Anion Gap 18.1 (5-19) 01/12/22 12:53 BUN 23 mg/dL (8-23) 01/12/22 12:53 Creatinine 1.8 mg/dL (0.5-0.9) H 01/12/22 12:53 GFR Calculation 27.9 mL/min (90-130) L 01/12/22 12:53 Glucose 117 mg/dL (65-115) H 01/12/22 12:53 Calculated Osmolality 277 mOsm/kg (285-295) L 01/12/22 12:53 Calcium 10.5 mg/dL (8.5-10.5) 01/12/22 12:53 Magnesium 1.9 mg/dL (1.7-2.3) 01/12/22 12:53 Total Bilirubin 0.8 mg/dL (0.15-1.2) 01/12/22 12:53 AST 16 U/L (0-32) 01/12/22 12:53 ALT 26 U/L (0-33) 01/12/22 12:53 Alkaline Phosphatase 109 U/L (35-105) H 01/12/22 12:53 Troponin T Baseline 21 ng/L (0-10) H 01/12/22 12:53 Troponin T 120 Minute 16.45 ng/L (0-10) H 01/12/22 14:58 Delta Troponin T -4.55 ABS# (0-10) L 01/12/22 14:58 NT-Pro-B Natriuret Pep 189 pg/mL (0-125) H 01/12/22 12:53 Total Protein 7.1 g/dL (6.6-8.7) 01/12/22 12:53 Albumin 3.8 g/dL (3.5-5.2) 01/12/22 12:53 Globulin 3.3 g/dL (1.3-4.6) 01/12/22 12:53 TSH 0.74 uIU/mL (0.27-4.20) 01/12/22 12:53 Urine Color Yellow (Yellow) 01/12/22 14:26 Urine Appearance Clear (CLEAR) 01/12/22 14:26 Urine pH 5 (5-7) 01/12/22 14:26 Ur Specific [place] 1.020 (1.005-1.030) 01/12/22 14:26 Urine Protein Neg (Negative) 01/12/22 14:26 Urine Glucose (UA) Norm (Normal) 01/12/22 14:26 Urine Ketones Negative (Negative) 01/12/22 14:26 Urine Blood Neg (Negative) 01/12/22 14:26 Urine Nitrate Negative (Negative) 01/12/22 14:26 Urine Bilirubin Neg (Negative) 01/12/22 14:26 Urine Urobilinogen Neg mg/dL (Negative) 01/12/22 14:26 Ur Leukocyte Esterase Negative (Negative) 01/12/22 14:26 Urine RBC 0-4 /hpf (0-2) H 01/12/22 14:26 Urine WBC None /hpf (0-5) 01/12/22 14:26 Ur Squamous Epith Cells None /hpf (0-5) 01/12/22 14:26 Amorphous Sediment Not Reportable 01/12/22 14:26 Urine Bacteria None /hpf (NONE) 01/12/22 14:26 Imaging Data CXR: My impression: Mild to moderate pulmonary edema, cardiomegaly consistent with mild to moderate pulmonary edema/CHF EKG Data EKG 1: I personally reviewed and interpreted this EKG as follows: EKG interpretation date: 01/12/22 EKG interpretation time: 13:06 Interpretation: Normal sinus rhythm with heart rate of 96. Left axis. Occasional PACs. Nonspecific ST-T changes. Normal QRS. Normal ME interval, normal QT interval, normal P waves, normal T waves. Discharge Plan Discharge Patient Disposition: Placed in Observation Clinical Impression: Chronic hyponatremia, Generalized weakness Congestive heart failure with left ventricular diastolic dysfunction Qualifiers: Congestive heart failure chronicity: acute on chronic Qualified Code(s): I50.33 - Acute on chronic diastolic (congestive) heart failure Coding Level of Care Code ED Set Up Operator Tool for g Fwd Exam Comprehensive
[2022-01-12] MEDS: ondansetron 2 mg/ML SDV 2 mL 4 MG IVP ×3 (12:59→20:29)
[2022-01-12 13:01] LABS: Basophils # 0.2 10^3/uL (0.0-0.1); Basophils % 1.2 %; Eosinophils # 0.7 10^3/uL (0.0-0.8); Eosinophils % 4.8 %; Hematocrit 45.6 % (37.0-47.0); Hemoglobin 13.2 g/dL (11.5-15.3); Lymphocytes # 1.8 10^3/uL (0.8-4.8); Lymphocytes % 12.6 %; Mean Corpuscular HGB Conc 28.9 g/dL (30.0-36.0); Mean Corpuscular Hemoglobin 22.5 pg (28.0-34.0); Mean Corpuscular Volume 77.8 fl (81-99); Mean Platelet Volume 10.1 fL (7.4-10.4); Monocytes % 14.5 %; Neutrophils # 8.87 10^3/uL (1.8-7.7); Neutrophils % 64.2 %; Nucleated Red Blood Cells % 0 %; Platelet Count 260 10^3/cmm (130-400); Red Blood Count 5.86 10^6/uL (4.1-5.3); White Blood Count 13.8 10^3/uL (4.0-10.0)
--- NOTE | 2022-01-12 13:01 | PC.NURSE ---
PT PLACED ON CONTINUOUS NIBP, SPO2, AND CM
[2022-01-12 13:19] LABS: Troponin(5th) Baseline 21 ng/L (0-10)
[2022-01-12 13:32] LABS: Alanine Aminotransferase 26 U/L (0-33); Albumin Level 3.8 g/dL (3.5-5.2); Alkaline Phosphatase 109 U/L (35-105); Anion Gap 18.1 (5-19); Aspartate Amino Transferase 16 U/L (0-32); Blood Urea Nitrogen 23 mg/dL (8-23); Calcium 10.5 mg/dL (8.5-10.5); Carbon Dioxide 25 mmol/L (22-29); Chloride 91 mmol/L (98-107); Globulin 3.3 g/dL (1.3-4.6); Glomerular Filtration Rate 27.9 mL/min (90-130); Glucose 117 mg/dL (65-115); Magnesium 1.9 mg/dL (1.7-2.3); NT Pro B Type Natriuretic Pept 189 pg/mL (0-125); Osmolality Calculated 277 mOsm/kg (285-295); Potassium 3.1 mmol/L (3.5-5.1); Sodium 131 mmol/L (136-145); Thyroid Stimulating Hormone 0.74 uIU/mL (0.27-4.20); Total Bilirubin 0.8 mg/dL (0.15-1.2); Total Protein 7.1 g/dL (6.6-8.7)
[2022-01-12] MEDS: FUROsemide 10 mg/mL SDV 4mL 40 MG IVP (14:26)
--- NOTE | 2022-01-12 14:29 | PC.NURSE ---
PHYSICIAN NOTIFIED OF PT POTASSIUM LEVEL. PHYSICIAN STATED K SUPPLEMENT WILL BE ORDERED
[2022-01-12 14:41] LABS: Urine Appearance Clear (CLEAR); Urine Color Yellow (Yellow); pH Urine 5 (5-7)
[2022-01-12 14:42] LABS: Bilirubin Urine Neg (Negative); Blood Urine Neg (Negative); Glucose Urine UA Norm (Normal); Ketones Urine Negative (Negative); Leukocyte Esterase Urine Negative (Negative); Nitrate Urine Negative (Negative); Protein Urine Neg (Negative); Urobilinogen Urine Neg (Negative)
[2022-01-12] MEDS: potassium chloride ER 20 mEq Tablet 40 MEQ PO (14:42)
[2022-01-12 14:50] LABS: Add Urine Culture? No; RBC Urine 0-4 /hpf (0-2)
[2022-01-12 15:35] LABS: Troponin 5 2HR 16.45 ng/L (0-10)
[2022-01-12 15:36] LABS: Troponin 5 2HR Delta -4.55 ABS# (0-10)
--- NOTE | 2022-01-12 16:51 | P.HP_ITS ---
Providers/Chief Complaint Primary Care Provider: Crys Glover NP Chief Complaint: Dizzines/ weakness History of Present Illness Carolyn Alexander is a 71 year old female with a past medical history of morbid obesity, diastolic CHF, volume overload, atrial fibrillation on Eliquis, history of adrenal insufficiency, who presents [facility] due to fatigue, malaise, nausea, vomiting, shortness of breath, lower extreme edema, fluid overload. Recently patient was admitted to [facility], had a prolonged hospitalization, she was diuresed over 35 L, lost 24 pounds, I had only recommended patient to spend another night in the hospital however she adamantly refused and wanted to be discharged home, today is day after discharge, and she apologized that she had to come back as she was not feeling well. Her serum sodium on admission 131, creatinine, 1.8, potassium 3.1, she has had nausea, and able to keep down her medications this morning, no diarrhea, no abdominal pain, no lightheadedness, no dizziness, just complaining of shortness of breath, no chest pain, has lower extreme edema Review of Systems Eyes: Denies: change in vision Card: Denies: chest pain Resp: Reports: dyspnea Medications/Allergies Home Medications Medication Instructions Recorded Confirmed Last Taken Type epinephrine 0.3 mg/0.3 mL 0.3 mg (0.3 mL) IM Q10M PRN 04/20/20 01/12/22 Unknown Rx injection, auto-injector (EpiPen anaphylaxis #2 ea 2-Nabeel) diabetic supplies, Wowboard. #1 ea 01/21/21 01/12/22 Unknown Rx blood sugar diagnostic (Pharmacist #50 ea 03/04/21 01/12/22 Unknown Rx Choice Glucose Test Strips) blood-glucose meter,continuous #1 ea 03/04/21 01/12/22 Unknown Rx polyethylene glycol 3350 17 17 g PO DAILY PRN Constipation 05/05/21 01/12/22 01/11/22 History gram/dose oral powder (Miralax) empagliflozin 10 mg tablet 10 mg PO QAM 08/02/21 01/12/22 01/11/22 History (Jardiance) pantoprazole 40 mg tablet,delayed 40 mg PO QAM 08/02/21 01/12/22 01/11/22 History release (Protonix) pramipexole 0.5 mg tablet (Mirapex) 1 mg PO BEDTIME 08/02/21 01/12/22 01/11/22 History semaglutide 0.25 mg or 0.5 mg (2 1 mg SUBCUT Q7D 08/02/21 01/12/22 12/26/21 History mg/1.5 mL) subcutaneous pen injector (Ozempic) pregabalin 150 mg capsule (Lyrica) 150 mg PO BID 90 days #180 caps 09/01/21 01/12/22 01/11/22 Rx cpap mask and supplies #1 ea 09/14/21 01/12/22 Unknown Rx levothyroxine 175 mcg tablet 175 mcg PO QAM 90 days #90 tabs 10/13/21 01/12/22 01/11/22 Rx silver sulfadiazine 1 % topical 1 applic topical BID #50 grams 12/15/21 01/12/22 01/11/22 Rx cream (Silvadene) dexamethasone 1 mg tablet 1 mg PO QAM 12/20/21 01/12/22 01/11/22 History apixaban 5 mg tablet (Eliquis) 5 mg PO Q12H 30 days #60 tabs 01/11/22 01/12/22 01/11/22 Rx potassium chloride 20 mEq 40 meq PO Q6H 30 days #240 tabs 01/11/22 01/12/22 01/11/22 Rx tablet,extended release(part/cryst) (Klor-Con M) spironolactone 25 mg tablet 12.5 mg PO DAILY 30 days #30 tabs 01/11/22 01/12/22 01/11/22 Rx bumetanide 2 mg tablet 2 mg PO Q6H 01/12/22 01/12/22 01/11/22 History Allergies Allergy/AdvReac Type Severity Reaction Status Date / Time acetaminophen [From Tylenol] Allergy ALGY-Hives Verified 01/12/22 14:31 azithromycin Allergy ALGY-Anaphy Verified 01/12/22 14:31 laxis benzocaine Allergy ALGY-Hives Verified 01/12/22 14:31 butamben [From Cetacaine] Allergy ALGY-Swell Verified 01/12/22 14:31 Lip/Tongue/Throat codeine Allergy ALGY-Hives Verified 01/12/22 14:31 fentanyl Allergy ALGY-Anaphy Verified 01/12/22 14:31 laxis hydrocodone [From Vicodin] Allergy ALGY-Hives Verified 01/12/22 14:31 hydromorphone [From Dilaudid] Allergy ADR-Vomitin Verified 01/12/22 14:31 g Iodinated Contrast Media Allergy ALGY-Anaphy Verified 01/12/22 14:31 laxis liothyronine Allergy ADR-Nausea Verified 01/12/22 14:31 meperidine [From Demerol] Allergy Unknown Verified 01/12/22 14:31 morphine Allergy ALGY-Anaphy Verified 01/12/22 14:31 laxis nitrofurantoin Allergy ALGY-Joint Verified 01/12/22 14:31 [From Macrobid] Pain oxycodone [From Percocet] Allergy ALGY-Hives Verified 01/12/22 14:31 penicillin V Allergy ALGY-Hives Verified 01/12/22 14:31 Penicillins Allergy Unknown Verified 01/12/22 14:31 Phenothiazines Allergy ALGY-Anaphy Verified 01/12/22 14:31 laxis procaine Allergy ALGY-Hives Verified 01/12/22 14:31 prochlorperazine Allergy ALGY-Anaphy Verified 01/12/22 14:31 [From Compazine] laxis Sulfa (Sulfonamide Allergy Unknown Verified 01/12/22 14:31 Antibiotics) tetracaine [From Cetacaine] Allergy ALGY-Swell Verified 01/12/22 14:31 Lip/Tongue/Throat PFSH Acute PFSH: Medical History Acute kidney injury superimposed on chronic kidney disease Adrenal insufficiency Anasarca Anasarca Anasarca Anemia Benign essential hypertension with target blood pressure below 140/90 Central hypothyroidism CHF (congestive heart failure) CHF exacerbation Chronic back pain Follows at pain clinic for periodic injections COVID-19 (~09/2020) Edema Facet arthritis, degenerative, lumbar spine Fatigue Gastroenteritis History of anaphylaxis History of atrial fibrillation Intermittent, has not required long-term anticoagulation or focused treatment History of COVID-19 HTN (hypertension) Hyperaldosteronism 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 Increased nausea and vomiting Lumbar spondylolysis OAB (overactive bladder) Obesity Obesity, morbid, BMI 50 or higher Obstructive sleep apnea KP (obstructive sleep apnea) Paroxysmal atrial fibrillation Pituitary macroadenoma with extrasellar extension Prediabetes Pulmonary hypertension PVD (peripheral vascular disease) Steroid dependence Tachycardia Unsteady gait UTI (urinary tract infection) Venous (peripheral) insufficiency Volume overload Surgical History H/O shoulder surgery History of hysterectomy History of pituitary surgery S/P insertion of spinal cord stimulator Family History Father Cancer pancreatic cancer Sister No problems noted. 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 Vitals/I&O/Wt Last Vital Signs Pulse 104 H 01/12/22 15:30 Resp 20 H 01/12/22 15:30 BP 105/59 01/12/22 15:30 Pulse Ox 97 01/12/22 15:30 O2 Del Method 01/12/22 15:30 O2 Flow Rate 2 01/12/22 15:30 Weight last 48 hrs Weight 145.195 kg Physical Exam Const: COMMON NORMALS: no acute distress and patient oriented x3 HENMT: COMMON NORMALS: normocephalic HEAD & SCALP: normocephalic Resp: COMMON NORMALS: normal respiratory effort, No retractions, No use of accessory muscles and clear to auscultation bilaterally AUSCULTATION: clear to auscultation bilaterally Cardio: COMMON NORMALS: no JVD, regular rate, regular rhythm, S1 normal heart sound present and S2 normal heart sound present RATE: regular rate RHYTHM: regular rhythm HEART SOUNDS: S1 normal heart sound present and S2 normal heart sound present GI: COMMON NORMALS: Normal to inspection, nondistended, normoactive bowel sounds present, Soft to palpation, non-tender, No hepatosplenomegaly present, no masses and no bruits PALPATION: Yes Soft to palpation OTHER: Morbidly obese abdomen Back/Pelvis: OTHER: 1+ pitting edema bilateral extremity Neuro: COMMON NORMALS: patient oriented x3 Psych: COMMON NORMALS: mental status grossly normal Urinary Catheter Management: Zurita: Cath Placed During This Visit: yes Urinary Catheter Date of Insertion: 01/12/22 Urinary Catheter Time of Insertion: 14:23 Data : 01/12/22 12:53 01/12/22 12:53 A&P Assessment and plan (1) Congestive heart failure with left ventricular diastolic dysfunction: Qualifiers: Congestive heart failure chronicity: acute on chronic Qualified Code(s): I50.33 - Acute on chronic diastolic (congestive) heart failure (2) Chronic hyponatremia: (3) Generalized weakness: (4) Hx of atrial fibrillation, no current medication: (5) Obesity, morbid, BMI 50 or higher: (6) Stasis edema with ulcer and inflammation: (7) Atrial fibrillation: Plan Volume overload, shortness of breath, lower extremity edema, fatigue, nausea -Has received potassium replacement in the emergency room, has received Lasix -Plan -Bumex 2 mg every 6 hours starting at 9 PM -Potassium replacement 40 mEq every 6 hours starting at 9 PM -Monitor creatinine, monitor potassium, monitor sodium -Mag tab daily -Fluid restrictions 1500 cc -2 g sodium restrictions -Monitor urine output closely, will place Zurita catheter -We will need to weigh her appropriately, to get her weight on admission, I have 320 pounds -Nausea, vomiting, Zofran, amylase, lipase, check serum cortisol level -Switch to hydrocortisone 30 mg in the morning, 15 mg in the evening, will give her stress dose Solu-Cortef -UA unremarkable UTI -Lower extremity edema, with areas of patchy cellulitis concerns, start cefdinir -Serial EKGs serial troponins, telemetry monitoring -Full code -Lovenox for DVT prophylaxis Attestations Medical Necessity Statement*: Patient requires hospitalization, inpatient, greater than 2 midnights, for fluid overload, wheezing, hypokalemia hyponatrem ia, RODRIGUE Coding Level of Care Code Acute Printing Sign Machine Operator for [facility] Diagnoses Congestive heart failure with left ventricular diastolic dysfunction I50.33 Congestive heart failure chronicity: acute on chronic Chronic hyponatremia E87.1 Generalized weakness R53.1 Hx of atrial fibrillation, no current medication Z86.79 Obesity, morbid, BMI 50 or higher E66.01 Stasis edema with ulcer and inflammation I87.339; L97.909 Atrial fibrillation I48.91
[2022-01-12 17:14] LABS: Amylase 46 U/L (28-100); Lipase 23 U/L (13-60)
[2022-01-12 18:19] LABS: Cortisol Random 5.82 ug/dL (2.47-19.5)
[2022-01-12 19:17] LABS: Troponin 5 6HR 20.76 ng/L (0-10)
[2022-01-12 19:22] LABS: Troponin 5 6HR Delta -0.24 ng/L (0-12)
[2022-01-12] MEDS: cefdinir 300 MG CAPSULE PO (20:18)
[2022-01-12] MEDS: magnesium lactate 84 mg Tablet PO (20:18)
[2022-01-12] MEDS: hydrocortisone 100 mg/2 mL SDV 50 MG IVP (20:18)
[2022-01-12] MEDS: hydrocortisone 10 mg Tablet 15 MG PO (20:19)
[2022-01-12] MEDS: apixaban 5 mg Tablet PO (20:20)
[2022-01-12 20:25] LABS: Glucose Point of Care 124 mg/dL (70-110)
[2022-01-12] MEDS: bumetanide 0.25 mg/mL SDV 10 mL 2 MG IVP (21:41)
[2022-01-13] VITALS (10 sets, daily range): BP systolic 102–116; BP diastolic 62–77; PULSE 69–90; RESP 16–20; TEMP 36.4–36.8; O2SAT 91–95
[2022-01-13] MEDS: bumetanide 0.25 mg/mL SDV 10 mL 2 MG IVP ×4 (02:38→20:16)
[2022-01-13 04:35] LABS: Basophils # 0.1 10^3/uL (0.0-0.1); Basophils % 0.8 %; Eosinophils # 0.1 10^3/uL (0.0-0.8); Eosinophils % 1.1 %; Hematocrit 42.5 % (37.0-47.0); Hemoglobin 12.5 g/dL (11.5-15.3); Lymphocytes # 0.8 10^3/uL (0.8-4.8); Lymphocytes % 6.2 %; Mean Corpuscular HGB Conc 29.4 g/dL (30.0-36.0); Mean Corpuscular Hemoglobin 22.6 pg (28.0-34.0); Mean Platelet Volume 10.8 fL (7.4-10.4); Monocytes # 0.8 10^3/uL (0.2-0.9); Monocytes % 6.6 %; Neutrophils # 9.91 10^3/uL (1.8-7.7); Neutrophils % 80.7 %; Nucleated Red Blood Cells % 0 %; Platelet Count 291 10^3/cmm (130-400); Red Blood Count 5.52 10^6/uL (4.1-5.3); Red Cell Distribution Width 17.6 % (12.1-15.1); White Blood Count 12.3 10^3/uL (4.0-10.0)
[2022-01-13 04:57] LABS: Alanine Aminotransferase 28 U/L (0-33); Albumin Level 3.6 g/dL (3.5-5.2); Alkaline Phosphatase 102 U/L (35-105); Anion Gap 19.5 (5-19); Aspartate Amino Transferase 17 U/L (0-32); Blood Urea Nitrogen 23 mg/dL (8-23); Calcium 10.3 mg/dL (8.5-10.5); Carbon Dioxide 21 mmol/L (22-29); Chloride 93 mmol/L (98-107); Globulin 3.1 g/dL (1.3-4.6); Glomerular Filtration Rate 29.8 mL/min (90-130); Glucose 143 mg/dL (65-115); Osmolality Calculated 276 mOsm/kg (285-295); Phosphorus 2.5 mg/dL (2.5-4.5); Potassium 3.5 mmol/L (3.5-5.1); Sodium 130 mmol/L (136-145); Total Bilirubin 0.8 mg/dL (0.15-1.2); Total Protein 6.7 g/dL (6.6-8.7)
[2022-01-13] MEDS: apixaban 5 mg Tablet PO ×2 (05:15→19:39)
[2022-01-13] MEDS: pantoprazole DR 40 mg Tablet PO (05:16)
[2022-01-13] MEDS: levothyroxine 175 mcg Tablet PO (05:16)
[2022-01-13 06:29] LABS: Glucose Point of Care 142 mg/dL (70-110)
[2022-01-13] MEDS: magnesium lactate 84 mg Tablet PO (08:59)
[2022-01-13] MEDS: cefdinir 300 MG CAPSULE PO ×2 (08:59→17:17)
[2022-01-13] MEDS: spironolactone 25 mg Tablet 12.5 MG PO (08:59)
[2022-01-13] MEDS: hydrocortisone 10 mg Tablet 30 MG PO (08:59)
[2022-01-13] MEDS: ondansetron 2 mg/ML SDV 2 mL 4 MG IVP ×2 (09:20→15:17)
--- NOTE | 2022-01-13 10:01 | P.PN_ITS ---
Subjective Subjective: Patient was seen this morning, she feels a bit nauseous, also feels a bit lightheaded Vitals/I&O/Wt Last Vital Signs Temp 97.8 F 01/13/22 08:00 Pulse 90 01/13/22 08:00 Resp 18 01/13/22 08:00 BP 102/75 01/13/22 08:00 Pulse Ox 95 01/13/22 08:00 O2 Del Method 01/13/22 08:00 O2 Flow Rate 2 01/13/22 08:00 01/12/22 01/13/22 01/13/22 22:59 06:59 14:59 Intake Total 240 / 240 240 / 480 Output Total 1380 / 1380 Balance 240 / 240 -1140 / -900 Weight last 48 hrs Weight 145.195 kg Physical Exam Const: COMMON NORMALS: no acute distress and patient oriented x3 Resp: COMMON NORMALS: normal respiratory effort, No retractions, No use of accessory muscles and clear to auscultation bilaterally AUSCULTATION: clear to auscultation bilaterally Cardio: COMMON NORMALS: regular rate, regular rhythm, S1 normal heart sound present and S2 normal heart sound present RATE: regular rate RHYTHM: regular rhythm HEART SOUNDS: S1 normal heart sound present and S2 normal heart sound present GI: COMMON NORMALS: Normal to inspection, nondistended, normoactive bowel sounds present, non-tender and no masses Neuro: COMMON NORMALS: patient oriented x3 Psych: COMMON NORMALS: mental status grossly normal Skin: NARRATIVE SKIN EXAM: 1+ pitting edema Urinary Catheter Management: Zurita: Cath Placed During This Visit: yes Urinary Catheter Date of Insertion: 01/12/22 Urinary Catheter Time of Insertion: 14:23 Data : 01/13/22 02:30 01/13/22 02:30 A&P Assessment and plan (1) Congestive heart failure with left ventricular diastolic dysfunction: Qualifiers: Congestive heart failure chronicity: acute on chronic Qualified Code(s): I50.33 - Acute on chronic diastolic (congestive) heart failure (2) Chronic hyponatremia: (3) Generalized weakness: (4) Hx of atrial fibrillation, no current medication: (5) Obesity, morbid, BMI 50 or higher: (6) Stasis edema with ulcer and inflammation: (7) Atrial fibrillation: Plan Volume overload, shortness of breath, lower extremity edema, fatigue, nausea -Has received potassium replacement in the emergency room, has received Lasix -Plan -Bumex 2 mg every 6 hours starting at 9 PM -Potassium replacement 40 mEq every 6 hours starting at 9 PM -Monitor creatinine, monitor potassium, monitor sodium -Mag tab daily -Fluid restrictions 1500 cc -2 g sodium restrictions -Monitor urine output closely, will place Zurita catheter -We will need to weigh her appropriately, to get her weight on admission, I have 320 pounds -Nausea, vomiting, Zofran, amylase, lipase, check serum cortisol level -Switch to hydrocortisone 30 mg in the morning, 15 mg in the evening, will give her stress dose Solu-Cortef -UA unremarkable UTI -Lower extremity edema, with areas of patchy cellulitis concerns, start cefdinir -Serial EKGs serial troponins, telemetry monitoring -Full code -Lovenox for DVT prophylaxis Attestations Medical Necessity Statement*: Patient requires hospitalization for fluid overload Coding Level of Care Code Acute Traffic And Transport Planner for g Fwd Diagnoses Congestive heart failure with left ventricular diastolic dysfunction I50.33 Congestive heart failure chronicity: acute on chronic Chronic hyponatremia E87.1 Generalized weakness R53.1 Hx of atrial fibrillation, no current medication Z86.79 Obesity, morbid, BMI 50 or higher E66.01 Stasis edema with ulcer and inflammation I87.339; L97.909 Atrial fibrillation I48.91
[2022-01-13 11:21] LABS: Glucose Point of Care 134 mg/dL (70-110)
--- NOTE | 2022-01-13 11:36 | PC.SOCIAL ---
Readmit/CHF pt CM called admissions to see when pt was last seen by Dr Sellers. They said on 12/28 pt had labwork done but was not seen by him. She said her appointment prior that was 10/28, but pt had canceled that appointment. She said it doesn't look like pt has seen Dr Sellers any this year for an appointment, but has done lab work. Pt had an appointment for 01/19/22, but canceled it. Pt has been hospitalized multiple times this year.
[2022-01-13] MEDS: hyDROXYzine 25 mg Capsule PO (12:08)
--- NOTE | 2022-01-13 12:53 | PC.CHAP ---
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 claim representative visit [] Patient/Family/Request visit [] Outpatient visit [] Follow-up visit [] Physician referral [] Code/Alert [x] Routine visit [] Staff referral [] Actively dying [] Patient sleeping [] Family support [] [] Out of room [] Palliative care [] [x] Receiving care in room [] Pre-surgical visit [] Trauma [] Long length of stay [] ICU visit [] Other: Relational/Emotional Strength [x] Patient feels connected with others/family/visitors/staff [] Distress [] Loneliness/isolation [] Abandonment Spirituality of Patient [x] Person of [place]o [] Attends Orthodox of their [place] [x] Believes in Prayer [] Reads Bible or Mandaeism materials [] There are Spiritual issues to be addressed Telephone Order Clerk Interventions [x] Prayer [x] Active listening [x] Non-anxious presence [x] Spiritual/emotional support [] Crisis/trauma care [x] Spiritual counseling [] Bereavement support [] Provided bereavement packet [] Provided Bible/devotional materials [] Provided toy/stuffed animal, coloring book to patient or family member [] Provided Communion [] Anointing/[place] [] Salvation [x] Completed spiritual assessment [] Other: Impact on Illness or Injury [] Angry [] Fearful [] Anxious [] Often cries [] Exhaustion [] Unable to work [] Unable to attend yazdanism [] Unable to walk/stand [] Unable to read [] Unable to drive [] Unable to eat/drink [] Unable to sleep [] Unable to be with family [] Patient intubated [] Other: Summary congestive heart waiting doctors report has a good attitude well be going home Time spent with patient 10 mins
[2022-01-13] MEDS: hydrocortisone 10 mg Tablet 15 MG PO (17:17)
[2022-01-13 17:27] LABS: Glucose Point of Care 150 mg/dL (70-110)
[2022-01-13 20:35] LABS: Glucose Point of Care 148 mg/dL (70-110)
[2022-01-14] VITALS (8 sets, daily range): BP systolic 102–113; BP diastolic 60–71; PULSE 62–88; RESP 15–22; TEMP 36.5–36.8; O2SAT 90–93
[2022-01-14 02:55] LABS: Basophils # 0.1 10^3/uL (0.0-0.1); Basophils % 0.9 %; Eosinophils # 0.4 10^3/uL (0.0-0.8); Eosinophils % 3.4 %; Hematocrit 40.6 % (37.0-47.0); Hemoglobin 11.9 g/dL (11.5-15.3); Lymphocytes # 1.7 10^3/uL (0.8-4.8); Lymphocytes % 13.1 %; Mean Corpuscular HGB Conc 29.3 g/dL (30.0-36.0); Mean Corpuscular Hemoglobin 22.5 pg (28.0-34.0); Mean Corpuscular Volume 76.6 fl (81-99); Mean Platelet Volume 10.7 fL (7.4-10.4); Monocytes # 1.6 10^3/uL (0.2-0.9); Monocytes % 12.2 %; Neutrophils # 8.65 10^3/uL (1.8-7.7); Neutrophils % 67.1 %; Nucleated Red Blood Cells % 0 %; Platelet Count 287 10^3/cmm (130-400); Red Cell Distribution Width 17.5 % (12.1-15.1); White Blood Count 12.9 10^3/uL (4.0-10.0)
[2022-01-14 03:18] LABS: Alanine Aminotransferase 25 U/L (0-33); Albumin Level 3.6 g/dL (3.5-5.2); Alkaline Phosphatase 97 U/L (35-105); Aspartate Amino Transferase 15 U/L (0-32); Blood Urea Nitrogen 22 mg/dL (8-23); Calcium 9.7 mg/dL (8.5-10.5); Carbon Dioxide 24 mmol/L (22-29); Chloride 95 mmol/L (98-107); Glomerular Filtration Rate 23.4 mL/min (90-130); Glucose 143 mg/dL (65-115); Osmolality Calculated 282 mOsm/kg (285-295); Sodium 133 mmol/L (136-145); Total Bilirubin 0.5 mg/dL (0.15-1.2); Total Protein 6.6 g/dL (6.6-8.7)
[2022-01-14 03:19] LABS: Anion Gap 17.7 (5-19); Potassium 3.7 mmol/L (3.5-5.1)
[2022-01-14] MEDS: bumetanide 0.25 mg/mL SDV 10 mL 2 MG IVP (03:29)
[2022-01-14] MEDS: pantoprazole DR 40 mg Tablet PO (05:38)
[2022-01-14] MEDS: levothyroxine 175 mcg Tablet PO (05:38)
[2022-01-14 06:29] LABS: Glucose Point of Care 115 mg/dL (70-110)
--- NOTE | 2022-01-14 09:53 | PC.NUTR ---
Interviewed Patient and discussed Heart Healthy diet. PT insisted she was not a Diabetic, but said her was a non-compliant Diabetic. Materials were given on the Diabetic Plate method as well as CHO counting/ label reading/ Heart Healthy diet. Pt stated she loves meat and would only eat that if she could and also claimed she has cut out sodium. Also said she put on 100 lbs and hasn't been able to lose it. We discussed small changes and focusing on more fruits and vegetables. Details in RD assessment.
[2022-01-14 11:04] LABS: Glucose Point of Care 111 mg/dL (70-110)
[2022-01-14] MEDS: hyDROXYzine 25 mg Capsule PO ×2 (12:30→20:53)
[2022-01-14] MEDS: meclizine 25 mg tablet PO (12:50)
--- NOTE | 2022-01-14 13:42 | PM.PN ---
Subjective Subjective: Patient was seen this morning, her edema has improved, she still complains of some nausea, some lightheadedness especially when changing head position, Vitals/I&O/Wt Last Vital Signs Temp 98.3 F 01/14/22 08:00 Pulse 88 01/14/22 08:00 Resp 16 01/14/22 08:00 BP 113/60 01/14/22 08:00 Pulse Ox 92 01/14/22 08:00 O2 Del Method 01/14/22 08:00 O2 Flow Rate 2 01/14/22 08:00 01/13/22 01/14/22 01/14/22 22:59 06:59 14:59 Output Total 1000 / 1000 Balance -1000 / -1000 Weight last 48 hrs Weight 147.021 kg Weight 147.554 kg Physical Exam Const: COMMON NORMALS: no acute distress and patient oriented x3 Resp: COMMON NORMALS: normal respiratory effort, No retractions, No use of accessory muscles and clear to auscultation bilaterally AUSCULTATION: clear to auscultation bilaterally Cardio: COMMON NORMALS: regular rate, regular rhythm, S1 normal heart sound present and S2 normal heart sound present RATE: regular rate RHYTHM: regular rhythm HEART SOUNDS: S1 normal heart sound present and S2 normal heart sound present GI: COMMON NORMALS: Normal to inspection, nondistended, normoactive bowel sounds present, non-tender and no masses Extremity: COMMON NORMALS: no pedal edema Neuro: COMMON NORMALS: patient oriented x3 Psych: COMMON NORMALS: mental status grossly normal Urinary Catheter Management: Zurita: Cath Placed During This Visit: yes Urinary Catheter Date of Insertion: 01/12/22 Urinary Catheter Time of Insertion: 14:23 Data : 01/14/22 02:11 01/14/22 02:11 A&P Assessment and plan (1) Congestive heart failure with left ventricular diastolic dysfunction: Qualifiers: Congestive heart failure chronicity: acute on chronic Qualified Code(s): I50.33 - Acute on chronic diastolic (congestive) heart failure (2) Chronic hyponatremia: (3) Generalized weakness: (4) Hx of atrial fibrillation, no current medication: (5) Obesity, morbid, BMI 50 or higher: (6) Stasis edema with ulcer and inflammation: (7) Atrial fibrillation: Plan Volume overload, shortness of breath, lower extremity edema, fatigue, nausea -Has received potassium replacement in the emergency room, has received Lasix -Plan -Creatinine 2.1, will give her kidneys a break this morning, hold Bumex 2 mg every 6 hours, recheck BMP in the afternoon potentially switch to p.o. -Hold potassium replacement 40 mEq every 6 hours starting at 9 PM -Monitor creatinine, monitor potassium, monitor sodium -Mag tab daily -Fluid restrictions 1500 cc -2 g sodium restrictions -Monitor urine output closely, will place Zurita catheter -We will need to weigh her appropriately, to get her weight on admission, I have 320 pounds -Switch to hydrocortisone 30 mg in the morning, 15 mg in the evening, will give her stress dose Solu-Cortef -UA unremarkable UTI -Lower extremity edema, with areas of patchy cellulitis concerns, start cefdinir -Serial EKGs serial troponins, telemetry monitoring -Full code -Lovenox for DVT prophylaxis Attestations Medical Necessity Statement*: Patient requires hospitalization for volume overload Coding Level of Care Code Acute Winchman/Crane Operator for g Fwd Diagnoses Congestive heart failure with left ventricular diastolic dysfunction I50.33 Congestive heart failure chronicity: acute on chronic Chronic hyponatremia E87.1 Generalized weakness R53.1 Hx of atrial fibrillation, no current medication Z86.79 Obesity, morbid, BMI 50 or higher E66.01 Stasis edema with ulcer and inflammation I87.339; L97.909 Atrial fibrillation I48.91
[2022-01-14 14:35] LABS: Blood Urea Nitrogen 19 mg/dL (8-23); Calcium 9.9 mg/dL (8.5-10.5); Carbon Dioxide 21 mmol/L (22-29); Chloride 94 mmol/L (98-107); Glomerular Filtration Rate 24.7 mL/min (90-130); Glucose 112 mg/dL (65-115); Osmolality Calculated 273 mOsm/kg (285-295); Sodium 130 mmol/L (136-145)
[2022-01-14 14:36] LABS: Anion Gap 18.3 (5-19)
[2022-01-14 14:37] LABS: Potassium 3.3 mmol/L (3.5-5.1)
--- NOTE | 2022-01-14 16:47 | PC.NURSE ---
pt refused morning meds due to nausea.nurse waited until later in morning to give..pt stated i just cant take them . pt mentioned that she has had nausea episodes r/t movement for past several months.states she once had script for meclizine,which helped considerable.dr mullins notified and med was ordered and given.
[2022-01-14 17:04] LABS: Glucose Point of Care 102 mg/dL (70-110)
[2022-01-14] MEDS: metoclopramide 5 mg/mL SDV 2 mL IVP (17:23)
[2022-01-14] MEDS: cefdinir 300 MG CAPSULE PO (17:37)
[2022-01-14] MEDS: pregabalin 150 mg Capsule PO (17:37)
[2022-01-14] MEDS: apixaban 5 mg Tablet PO (17:37)
[2022-01-14] MEDS: hydrocortisone 10 mg Tablet 15 MG PO (17:38)
--- NOTE | 2022-01-14 17:50 | PC.NURSE ---
pt has remained nauseated most of shift.2nd dose zofran given.then reglan ordered and given with-out relief.
--- NOTE | 2022-01-14 18:18 | PC.NURSE ---
pt was able to take evening meds,after reglan given.also ate mashed potatoes.states i feel a little better .
[2022-01-14] MEDS: bumetanide 1 mg Tablet 2 MG PO (20:11)
[2022-01-14] MEDS: pramipexole 0.25 mg Tablet 1 MG PO (20:12)
[2022-01-14 20:19] LABS: Glucose Point of Care 194 mg/dL (70-110)
[2022-01-15] VITALS: BP 118/79; PULSE 86; RESP 17; TEMP 36.7; O2SAT 95
[2022-01-15 03:53] VITALS: BP 115/73; PULSE 85; RESP 16; TEMP 36.6; O2SAT 94
[2022-01-15 05:01] LABS: Basophils # 0.1 10^3/uL (0.0-0.1); Basophils % 1.2 %; Eosinophils # 0.5 10^3/uL (0.0-0.8); Eosinophils % 5.2 %; Hematocrit 42.3 % (37.0-47.0); Hemoglobin 12.1 g/dL (11.5-15.3); Lymphocytes # 1.5 10^3/uL (0.8-4.8); Lymphocytes % 15.2 %; Mean Corpuscular HGB Conc 28.6 g/dL (30.0-36.0); Mean Corpuscular Hemoglobin 22.7 pg (28.0-34.0); Mean Corpuscular Volume 79.4 fl (81-99); Mean Platelet Volume 10.1 fL (7.4-10.4); Monocytes # 1.3 10^3/uL (0.2-0.9); Neutrophils # 6.29 10^3/uL (1.8-7.7); Neutrophils % 62.8 %; Nucleated Red Blood Cells % 0 %; Platelet Count 277 10^3/cmm (130-400); Red Blood Count 5.33 10^6/uL (4.1-5.3); Red Cell Distribution Width 17.6 % (12.1-15.1)
[2022-01-15] MEDS: bumetanide 1 mg Tablet 2 MG PO (05:31)
[2022-01-15] MEDS: pantoprazole DR 40 mg Tablet PO (05:32)
[2022-01-15] MEDS: levothyroxine 175 mcg Tablet PO (05:32)
[2022-01-15 05:35] LABS: Alanine Aminotransferase 39 U/L (0-33); Albumin Level 3.3 g/dL (3.5-5.2); Alkaline Phosphatase 97 U/L (35-105); Blood Urea Nitrogen 18 mg/dL (8-23); Calcium 9.6 mg/dL (8.5-10.5); Carbon Dioxide 23 mmol/L (22-29); Chloride 97 mmol/L (98-107); Globulin 3.1 g/dL (1.3-4.6); Glomerular Filtration Rate 23.4 mL/min (90-130); Glucose 142 mg/dL (65-115); Osmolality Calculated 278 mOsm/kg (285-295); Sodium 132 mmol/L (136-145); Total Bilirubin 0.5 mg/dL (0.15-1.2); Total Protein 6.4 g/dL (6.6-8.7)
[2022-01-15 05:38] LABS: Anion Gap 16.2 (5-19); Aspartate Amino Transferase 27 U/L (0-32); Potassium 4.2 mmol/L (3.5-5.1)
[2022-01-15 05:57] VITALS: PULSE 76
[2022-01-15] MEDS: apixaban 5 mg Tablet PO (06:05)
[2022-01-15 06:21] LABS: Glucose Point of Care 117 mg/dL (70-110)
[2022-01-15 07:01] VITALS: BP 130/81; PULSE 85; RESP 20; TEMP 36.6; O2SAT 96
[2022-01-15] MEDS: cefdinir 300 MG CAPSULE PO (07:36)
[2022-01-15] MEDS: magnesium lactate 84 mg Tablet PO (07:36)
[2022-01-15] MEDS: hydrocortisone 10 mg Tablet 30 MG PO (07:36)
[2022-01-15] MEDS: pregabalin 150 mg Capsule PO (07:37)
[2022-01-15] MEDS: spironolactone 25 mg Tablet 12.5 MG PO (07:37)
--- NOTE | 2022-01-15 09:11 | PC.SOCIAL ---
IMM update Imm page 2 updated with patient at bedside. Copy of page 2 provided. Patient verbalized understanding. Copy in chart initialed, dated and timed.
[2022-01-15 09:12] VITALS: PULSE 84; O2SAT 94
--- NOTE | 2022-01-15 10:36 | PM.DCS ---
Discharge Providers Date of Admission: 01/12/22 18:42 Date of Discharge: January 15, 2022 Attending Provider at Admission: Jay Wright MD Attending Provider at Discharge: Jay Wright MD Primary Care Provider: Crys Glover NP Diagnoses at Discharge Discharge Diagnosis (1) Congestive heart failure with left ventricular diastolic dysfunction: Status: Acute Qualifiers: Congestive heart failure chronicity: acute on chronic Qualified Code(s): I50.33 - Acute on chronic diastolic (congestive) heart failure (2) Chronic hyponatremia: Status: Acute (3) Generalized weakness: Status: Acute (4) Hx of atrial fibrillation, no current medication: Status: Acute (5) Obesity, morbid, BMI 50 or higher: Status: Acute (6) Stasis edema with ulcer and inflammation: Status: Acute (7) Atrial fibrillation: Status: Acute Reason for Visit Reason for Visit: Dizzines/ weakness Hospital Course Hospital Course This is a 71-year-old female, with diastolic CHF, atrial fibrillation on Eliquis, adrenal insufficiency who presents [facility] due to fluid overload, shortness of breath, concerns for hyponatremia, hyperkalemia, RODRIGUE Patient was admitted to [facility] for fluid overload, shortness of breath, secondary to diastolic CHF, received inpatient diuresis, clinically improved -On discharge her creatinine is 2.1, I am going to hold her p.o. Bumex until tomorrow and resume tomorrow -The dose of Bumex will be 2 mg every 8 hours with potassium replacement 40 mill equivalents every 8 hours -I have advised patient that I think that this is her dry weight, as any further increases in the dose of Bumex is causing RODRIGUE, I have advised her to go home and check her dry weight and record this -I am going to have patient follow-up with her primary care to recheck her blood work on Monday -She has chronic hyponatremia, serum sodium on discharge is 132, likely secondary to Bumex, monitor asymptomatic, -Her creatinine is 2.1, her baseline creatinine is anywhere between 1.4-1.7, -Her potassium is 4.2 -In terms of her adrenal insufficiency, she has been placed on Solu-Cortef during her prior hospitalizations, and she seems to tolerated better compared to Decadron when she was changed over back to Decadron, she was having lightheadedness and nausea and vomiting, thus I switched her back to Solu-Cortef, continue 30 mg morning, 50 mg in the evening, can slowly wean over the next few months back to Decadron, I will have her follow-up with her primary care provider for this -She also had anxiety complaints, she tolerated hydroxyzine well, advised to not take with meclizine for nausea vomiting Physical Exam Const: COMMON NORMALS: no acute distress and patient oriented x3 Resp: COMMON NORMALS: normal respiratory effort, No retractions, No use of accessory muscles and clear to auscultation bilaterally AUSCULTATION: clear to auscultation bilaterally Cardio: COMMON NORMALS: regular rate, regular rhythm, S1 normal heart sound present and S2 normal heart sound present RATE: regular rate RHYTHM: regular rhythm HEART SOUNDS: S1 normal heart sound present and S2 normal heart sound present GI: COMMON NORMALS: Normal to inspection, nondistended, normoactive bowel sounds present, non-tender and no masses Extremity: COMMON NORMALS: no pedal edema Neuro: COMMON NORMALS: patient oriented x3 Psych: COMMON NORMALS: mental status grossly normal Urinary Catheter Management: Zurita: Cath Placed During This Visit: yes Urinary Catheter Date of Insertion: 01/12/22 Urinary Catheter Time of Insertion: 14:23 Discharge Data Studies Completed and Pending Completed Studies During Hospitalization Category Date Time Status XR chest 1V portable [id number] Urgent Exams 01/12/22 12:44 Completed Pending at discharge Category Date Time Status Complete Blood Count w/Auto AM LABS Lab 01/16/22 04:00 Ordered Comprehensive Metabolic Panel AM LABS Lab 01/16/22 04:00 Ordered Magnesium AM LABS Lab 01/16/22 04:00 Ordered Radiology Impressions Chest X-Ray 01/12/22 12:44 IMPRESSION: There are no acute concerning abnormalities. Laboratory Results WBC 10.0 10^3/uL (4.0-10.0) 01/15/22 04:08 RBC 5.33 10^6/uL (4.1-5.3) H 01/15/22 04:08 Hgb 12.1 g/dL (11.5-15.3) 01/15/22 04:08 Hct 42.3 % (37.0-47.0) 01/15/22 04:08 MCV 79.4 fl (81-99) L 01/15/22 04:08 MCH 22.7 pg (28.0-34.0) L 01/15/22 04:08 MCHC 28.6 g/dL (30.0-36.0) L 01/15/22 04:08 RDW 17.6 % (12.1-15.1) H 01/15/22 04:08 Plt Count 277 10^3/cmm (130-400) 01/15/22 04:08 MPV 10.1 fL (7.4-10.4) 01/15/22 04:08 Neut % (Auto) 62.8 % 01/15/22 04:08 Lymph % (Auto) 15.2 % 01/15/22 04:08 [place] % (Auto) 13.0 % 01/15/22 04:08 Eos % (Auto) 5.2 % 01/15/22 04:08 Baso % (Auto) 1.2 % 01/15/22 04:08 Neut # (Auto) 6.29 10^3/uL (1.8-7.7) 01/15/22 04:08 Lymph # (Auto) 1.5 10^3/uL (0.8-4.8) 01/15/22 04:08 [place] # (Auto) 1.3 10^3/uL (0.2-0.9) H 01/15/22 04:08 Eos # (Auto) 0.5 10^3/uL (0.0-0.8) 01/15/22 04:08 Baso # (Auto) 0.1 10^3/uL (0.0-0.1) 01/15/22 04:08 Nucleated RBC % (auto) 0 % 01/15/22 04:08 Nucleated RBCs # 0.0 /100WBC 01/15/22 04:08 Sodium 132 mmol/L (136-145) L 01/15/22 04:08 Potassium 4.2 mmol/L (3.5-5.1) 01/15/22 04:08 Chloride 97 mmol/L (98-107) L 01/15/22 04:08 Carbon Dioxide 23 mmol/L (22-29) 01/15/22 04:08 Anion Gap 16.2 (5-19) 01/15/22 04:08 BUN 18 mg/dL (8-23) 01/15/22 04:08 Creatinine 2.1 mg/dL (0.5-0.9) H 01/15/22 04:08 GFR Calculation 23.4 mL/min (90-130) L 01/15/22 04:08 Glucose 142 mg/dL (65-115) H 01/15/22 04:08 POC Glucose 117 mg/dL (70-110) H 01/15/22 06:06 Calculated Osmolality 278 mOsm/kg (285-295) L 01/15/22 04:08 Calcium 9.6 mg/dL (8.5-10.5) 01/15/22 04:08 Phosphorus 2.5 mg/dL (2.5-4.5) 01/13/22 02:30 Magnesium 2.0 mg/dL (1.7-2.3) 01/15/22 04:08 Total Bilirubin 0.5 mg/dL (0.15-1.2) 01/15/22 04:08 AST 27 U/L (0-32) 01/15/22 04:08 ALT 39 U/L (0-33) H 01/15/22 04:08 Alkaline Phosphatase 97 U/L (35-105) 01/15/22 04:08 Troponin T Baseline 21 ng/L (0-10) H 01/12/22 12:53 Troponin T 120 Minute 16.45 ng/L (0-10) H 01/12/22 14:58 Delta Troponin T -4.55 ABS# (0-10) L 01/12/22 14:58 Troponin T Hi Sens 6Hr 20.76 ng/L (0-10) H 01/12/22 18:27 Troponin T Hi Sens 6Hr Delta -0.24 ng/L (0-12) L 01/12/22 18:27 NT-Pro-B Natriuret Pep 189 pg/mL (0-125) H 01/12/22 12:53 Total Protein 6.4 g/dL (6.6-8.7) L 01/15/22 04:08 Albumin 3.3 g/dL (3.5-5.2) L 01/15/22 04:08 Globulin 3.1 g/dL (1.3-4.6) 01/15/22 04:08 Amylase 46 U/L (28-100) 01/12/22 12:53 Lipase 23 U/L (13-60) 01/12/22 12:53 TSH 0.74 uIU/mL (0.27-4.20) 01/12/22 12:53 Random Cortisol 5.82 ug/dL (2.47-19.5) 01/12/22 12:53 Urine Color Yellow (Yellow) 01/12/22 14:26 Urine Appearance Clear (CLEAR) 01/12/22 14:26 Urine pH 5 (5-7) 01/12/22 14:26 Ur Specific Thornton 1.020 (1.005-1.030) 01/12/22 14:26 Urine Protein Neg (Negative) 01/12/22 14:26 Urine Glucose (UA) Norm (Normal) 01/12/22 14:26 Urine Ketones Negative (Negative) 01/12/22 14:26 Urine Blood Neg (Negative) 01/12/22 14:26 Urine Nitrate Negative (Negative) 01/12/22 14:26 Urine Bilirubin Neg (Negative) 01/12/22 14:26 Urine Urobilinogen Neg mg/dL (Negative) 01/12/22 14:26 Ur Leukocyte Esterase Negative (Negative) 01/12/22 14:26 Urine RBC 0-4 /hpf (0-2) H 01/12/22 14:26 Urine WBC None /hpf (0-5) 01/12/22 14:26 Ur Squamous Epith Cells None /hpf (0-5) 01/12/22 14:26 Amorphous Sediment Not Reportable 01/12/22 14:26 Urine Bacteria None /hpf (NONE) 01/12/22 14:26 Vitals Last Vital Signs Temp 97.8 F 01/15/22 07:01 Pulse 84 01/15/22 09:12 Resp 20 H 01/15/22 07:01 BP 130/81 01/15/22 07:01 Pulse Ox 94 01/15/22 09:12 O2 Del Method 01/15/22 09:12 O2 Flow Rate 2 01/14/22 08:00 Discharge Plan Discharge Patient Disposition: Home Condition: Stable Prescriptions: New hydrocortisone 10 mg Tablet 15 mg PO QPM 30 Days Qty: 45 0RF hydrocortisone 10 mg Tablet 30 mg PO DAILY 30 Days Qty: 90 0RF hydroxyzine pamoate 25 mg Capsule 25 mg PO BID PRN (Reason: Anxiety) 15 Days Qty: 30 0RF magnesium L-lactate [Magtab] 84 mg Tablet Extended Release 84 mg PO DAILY 30 Days Qty: 30 0RF meclizine 25 mg Tablet 25 mg PO TID PRN (Reason: Dizziness) 15 Days Qty: 45 0RF Continued epinephrine [EpiPen 2-Nabeel] 0.3 mg/0.3 mL auto-injector 0.3 mg IM Q10M PRN (Reason: anaphylaxis) Qty: 2 3RF Rx Instructions: for 3 doses silver sulfadiazine [Silvadene] 1 % cream 1 applic topical BID Qty: 50 2RF Rx Instructions: apply a 1.5 mm thickness (DME) Pharmacist Choice Strip See Rx Instructions .Route Qty: 50 2RF Rx Instructions: AC and HS (DME) blood-glucose meter,continuous Misc See Rx Instructions .Route Qty: 1 0RF Rx Instructions: As directed one meter with all necessary supplies pregabalin [Lyrica] 150 mg capsule 150 mg PO BID 90 Days Qty: 180 0RF (DME) cpap mask and supplies See Rx Instructions .Route .MEDSUPPLY Qty: 1 0RF Rx Instructions: As directed levothyroxine 175 mcg tablet 175 mcg PO QAM 90 Days Qty: 90 1RF (DME) diabetic supplies, miscellan. Misc See Rx Instructions .Route Qty: 1 0RF Rx Instructions: As directed polyethylene glycol 3350 [Miralax] 17 gram/dose Powder 17 g PO DAILY PRN (Reason: Constipation) Eliquis 5 mg Tablet 5 mg PO Q12H 30 Days Qty: 60 0RF spironolactone 25 mg Tablet 12.5 mg PO DAILY 30 Days Qty: 30 0RF pramipexole [Mirapex] 0.5 mg tablet 1 mg PO BEDTIME pantoprazole [Protonix] 40 mg tablet,delayed release (DR/EC) 40 mg PO QAM Jardiance 10 mg tablet 10 mg PO QAM Ozempic 0.25 mg or 0.5 mg(2 mg/1.5 mL) pen injector 1 mg SUBCUT Q7D Rx Instructions: on monday Changed potassium chloride [Klor-Con M20] 20 mEq Tablet,Er Particles/Crystals 40 meq PO Q8H 30 Days Qty: 240 0RF Rx Instructions: with bumex therapy bumetanide 2 mg tablet 2 mg PO Q8H Qty: 30 0RF Discontinued dexamethasone 1 mg tablet 1 mg PO QAM Discharge Orders: Discharge Order (Routine); Ordered 01/15/22 Ordered By: Jay Wright Referrals: Crys Glover NP [Primary Care Provider] - Discharge Diet: Cardiac Discharge Activity: Resume usual activity Patient Instructions: Opioid Safety Assessment: - Please hold Bumex and potassium until tomorrow -Bumex 2 mg every 8 hours with potassium replacement 40 mg every 8 hours -Have your primary care provider recheck your blood work on Monday -Your serum sodium is 132, on discharge, creatinine is 2.1, potassium is 4.2 -Please use hydroxyzine as needed for anxiety, do not use with meclizine -Please use Solu-Cortef for adrenal insufficiency, will need to slowly wean over the next month to Decadron 1 mg once daily, I will leave this up to her primary care Discharge Attestations Time Spent in Discharge Care*: less than 30 min Quality Metrics Clinical Quality Measures [ No reported AMI, CVA or VTE this stay] Coding Level of Care Code Acute Chg FW DC note Diagnoses Congestive heart failure with left ventricular diastolic dysfunction I50.33 Congestive heart failure chronicity: acute on chronic Chronic hyponatremia E87.1 Generalized weakness R53.1 Hx of atrial fibrillation, no current medication Z86.79 Obesity, morbid, BMI 50 or higher E66.01 Stasis edema with ulcer and inflammation I87.339; L97.909 Atrial fibrillation I48.91
== END 2022-01-15 11:02 | disposition home or self-care (01) | DRG 291 ==
LOC: ER 16:35 → MEDSURG 19:30
PROVIDERS: Admitting Provider Family Medicine; Emergency Provider Family Medicine; PCP Nurse Practitioner Family; Visit Provider Family Medicine
DX: I11.0 Hypertensive heart disease with heart failure (principal); I50.33 Acute on chronic diastolic (congestive) heart failure; E87.1 Hypo-osmolality and hyponatremia; N17.9 Acute kidney failure, unspecified; Z68.43 Body mass index [BMI] 50.0-59.9, adult; I87.333 Chronic venous hypertension (idiopathic) with ulcer and inflammation of bilateral lower extremity; L97.329 Non-pressure chronic ulcer of left ankle with unspecified severity; L97.919 Non-pressure chronic ulcer of unspecified part of right lower leg with unspecified severity; E27.40 Unspecified adrenocortical insufficiency; E87.6 Hypokalemia; G47.33 Obstructive sleep apnea (adult) (pediatric); E03.9 Hypothyroidism, unspecified; E89.3 Postprocedural hypopituitarism; E66.01 Morbid (severe) obesity due to excess calories; I48.0 Paroxysmal atrial fibrillation; R73.03 Prediabetes; I73.9 Peripheral vascular disease, unspecified; I87.2 Venous insufficiency (chronic) (peripheral); R11.2 Nausea with vomiting, unspecified; R42 Dizziness and giddiness; F41.9 Anxiety disorder, unspecified; Z96.82 Presence of neurostimulator; Z79.01 Long term (current) use of anticoagulants; Z79.899 Other long term (current) drug therapy
CPT/HCPCS: 36415; 36416; 36592; 51702; 71045; 73620; 74176; 80048; 80053; 81001; 82009; 82150; 82533; 82550; 82962; 83605; 83690; 83735; 83880; 84100; 84132; 84443; 84484; 85025; 85610; 85730; 87040; 87086; 87106; 87493; 87506; 87635; 93005; 94640; 94664; 96365; 96366; 96367; 96372; 96374; 96375; 96376; 97110; 97116; 97161; 97166; 97530; 97535; 99285; 99291; 99292; C1751; C9113; J0637; J1450; J1580; J1644; J1720; J1815; J1940; J1956; J2185; J2405; J2765; J3475; J3490; J7030; J7050; J7060; J8499; J8597

== ENCOUNTER 2022-01-16 21:49 | Inpatient (IN) | payer MEDICARE, OTHER, SELFPAY ==
[2022-01-16] VITALS (11 sets, daily range): BP systolic 50–91; BP diastolic 28–47; PULSE 82–115; RESP 17–33; TEMP 37.2; O2SAT 92–96; BMI 49.3
--- NOTE | 2022-01-16 21:58 | XRR_ITS ---
PROCEDURE INFORMATION: Exam: XR Chest Exam date and time: 01/16/2022 10:08 PM Age: 71 years old Clinical indication: Shortness of breath; Additional info: SOB TECHNIQUE: Imaging protocol: Radiologic exam of the chest. Views: 1 view. COMPARISON: CR XR chest 1V portable [id number] 01/12/2022 12:58 PM FINDINGS: Lungs: Cardiac silhouette size, and vascularity are somewhat accentuated, likely related to poor inspiration/expansion however clinical correlation for mild CHF should be obtained. Upper lungs are clear. Lung bases are suboptimally assessed. Pleural spaces: No pleural effusion. No pneumothorax. Heart/Mediastinum: As above. Bones/joints: No acute osseous findings. Other findings: Single view was submitted. XR/XR chest 1V portable [id number] IMPRESSION: 1. Accentuated cardiac silhouette size and vascularity. See discussion above. 2. No obvious acute consolidation. Suboptimal lung base assessment. Followup including lateral view may be obtained if clinically indicated.
--- NOTE | 2022-01-16 21:59 | ECG_ITS ---
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 Measurements Intervals [facility] Rate: 112 P: 79 IA: 152 QRS: -53 QRSD: 88 T: 58 QT: 333 QTc: 455 Interpretive Statements SINUS TACHYCARDIA LOW QRS VOLTAGE IN PRECORDIAL LEADS [QRS DEFLECTION < 1.0 mV IN CHEST LEADS] LEFT ANTERIOR FASCICULAR BLOCK [QRS AXIS <= -45, QR IN I, RS IN II] POSSIBLE ANTERIOR MYOCARDIAL INFARCTION , OF INDETERMINATE AGE [30 ms Q WAVE IN V3/V4, OR R < 0.2 mV IN V4] Compared to ECG 01/12/2022 12:57:41 Left anterior fascicular block now present Sinus rhythm no longer present Myocardial infarct finding still present Electronically Signed On 01-17-2022 22:57:17 CDT by Jaki Leavitt M.D. [id number]
[2022-01-16 22:08] LABS: Basophils # 0.2 10^3/uL (0.0-0.1); Basophils % 0.6 %; Eosinophils # 0.4 10^3/uL (0.0-0.8); Eosinophils % 1.9 %; Hematocrit 42.3 % (37.0-47.0); Hemoglobin 12.7 g/dL (11.5-15.3); Lymphocytes # 1.8 10^3/uL (0.8-4.8); Lymphocytes % 7.5 %; Mean Corpuscular Volume 76.6 fl (81-99); Monocytes # 2.2 10^3/uL (0.2-0.9); Monocytes % 9.3 %; Neutrophils # 18.26 10^3/uL (1.8-7.7); Neutrophils % 77.5 %; Nucleated Red Blood Cells % 0 %; Platelet Count 326 10^3/cmm (130-400); Red Blood Count 5.52 10^6/uL (4.1-5.3); Red Cell Distribution Width 17.8 % (12.1-15.1); White Blood Count 23.6 10^3/uL (4.0-10.0)
[2022-01-16 22:21] LABS: INR 1.52 (0.8-1.2)
[2022-01-16 22:22] LABS: Partial Thromboplastin Time 25.2 SECONDS (23.9-36.7)
[2022-01-16] MEDS: sodium chloride 0.9% 1,000 ML 999 ML IV ×2 (22:33→23:45)
[2022-01-16 22:38] LABS: Troponin(5th) Baseline 40 ng/L (0-10)
[2022-01-16 22:47] LABS: Alanine Aminotransferase 26 U/L (0-33); Albumin Level 2.5 g/dL (3.5-5.2); Alkaline Phosphatase 86 U/L (35-105); Aspartate Amino Transferase 17 U/L (0-32); Blood Urea Nitrogen 18 mg/dL (8-23); Calcium 7.3 mg/dL (8.5-10.5); Carbon Dioxide 15 mmol/L (22-29); Chloride 104 mmol/L (98-107); Creatine Phosphokinase 143 U/L (26-192); Globulin 2.5 g/dL (1.3-4.6); Glomerular Filtration Rate 13.9 mL/min (90-130); Glucose 94 mg/dL (65-115); Magnesium 1.4 mg/dL (1.7-2.3); NT Pro B Type Natriuretic Pept 262 pg/mL (0-125); Osmolality Calculated 278 mOsm/kg (285-295); Phosphorus 1.3 mg/dL (2.5-4.5); Sodium 133 mmol/L (136-145); Total Bilirubin 0.6 mg/dL (0.15-1.2)
[2022-01-16 22:53] LABS: Anion Gap 17.4 (5-19); Potassium 3.4 mmol/L (3.5-5.1)
[2022-01-16 23:18] LABS: Blood Urine 2+ (Negative); Glucose Urine UA Trace (Normal); Ketones Urine 1+ (Negative); Nitrate Urine Negative (Negative); Protein Urine 2+ (Negative); Specific Gravity, Urine 1.025 (1.005-1.030); Urine Appearance Hazy (CLEAR); Urine Color Yellow (Yellow); pH Urine 5 (5-7)
[2022-01-16 23:19] LABS: Add Urine Microscopic? YES; Bilirubin Urine 1+ (Negative); Leukocyte Esterase Urine 2+ (Negative); Urobilinogen Urine 4 mg/dL (Negative)
[2022-01-16 23:21] LABS: RBC Urine 15-25 /hpf (0-2); WBC Urine 80-100 /hpf (0-5)
[2022-01-16 23:22] LABS: Add Urine Culture? Yes; Bacteria Urine 1+ /hpf
--- NOTE | 2022-01-16 23:41 | CTR_ITS ---
PROCEDURE INFORMATION: Exam: CT Abdomen And Pelvis Without Contrast Exam date and time: 01/16/2022 11:59 PM Age: 71 years old Clinical indication: Abdominal pain; Generalized; Additional info: Vomiting diarrhea hypotension TECHNIQUE: Imaging protocol: Computed tomography of the abdomen and pelvis without contrast. Radiation optimization: All CT scans at this facility use at least one of these dose optimization techniques: automated exposure control; mA and/or kV adjustment per patient size (includes targeted exams where dose is matched to clinical indication); or iterative reconstruction. COMPARISON: CT abdomen pelvis wo con [id number] 01/06/2022 3:15 PM RADIATION DOSE METRICS: Total DLP (mGy-cm): 1346.93 FINDINGS: Limitations: The study is limited by patient body habitus. Tubes, catheters and devices: Spinal stimulator device noted. Lungs: Mild atelectasis at the lung bases. Liver: Decreased hepatic density is noted, consistent with hepatic steatosis. Gallbladder and bile ducts: No calcified gallstones in the gallbladder. No gallbladder wall thickening. No pericholecystic fluid. No biliary dilatation. Pancreas: The pancreas is normal in appearance. No pancreatic duct dilatation. Spleen: The spleen is normal in size and appearance. Adrenal glands: The adrenal glands appear within normal limits. Kidneys and ureters: The kidneys are normal in morphology. No hydronephrosis. No solid mass. Stomach and bowel: Mural thickening of the descending and sigmoid colon, with mild pericolonic inflammation, consistent with nonspecific colitis. No acute gastric abnormality demonstrated. The small bowel is unremarkable as demonstrated. Appendix: No evidence of appendicitis. Intraperitoneal space: No pneumoperitoneum. No significant fluid collection. Vasculature: The aorta is atherosclerotic. No aortic aneurysm. Lymph nodes: No pathologically enlarged lymph nodes. Urinary bladder: There is a Zurita catheter in the urinary bladder. Urinary bladder is empty. Reproductive: The uterus is not visualized, consistent with hysterectomy. Bones/joints: Degenerative spine changes are noted. Soft tissues: The soft tissues appear unremarkable. CT/CT kidney stone [id number] IMPRESSION: 1. The study is limited by patient body habitus. 2. Decreased hepatic density is noted, consistent with hepatic steatosis. 3. Mural thickening of the descending and sigmoid colon, with mild pericolonic inflammation, consistent with nonspecific colitis. This is new when compared to 01/06/2022. 4. No other interval change noted when compared to the previous study.
[2022-01-17] VITALS (62 sets, daily range): BP systolic 45–202; BP diastolic 26–170; PULSE 0–108; RESP 14–32; TEMP 36.8–37.3; O2SAT 87–98
--- NOTE | 2022-01-17 00:10 | P.HP_ITS ---
Providers/Chief Complaint Primary Care Provider: Crys Glover NP Chief Complaint: SOB History of Present Illness Pleasant 71-year-old lady with diastolic CHF, A. fib on Eliquis, hypopituitarism and adrenal sufficiency, CKD, morbid obesity, KP, pulmonary hypertension, PVD, numerous antibiotic allergies, other chronic comorbidities who was discharged yesterday after admission for acute diastolic CHF, underwent diuresis, also with noted CKD, baseline creatinine 1.4-1.7, creatinine 2.1 at discharge, with Bumex continued at 2 mg every 8 hours with potassium replacement now increased further with concern for RODRIGUE, additionally was discharged on Solu-Cortef for adrenal insufficiency. She started feeling unwell in the evening, developed malaise, had vomiting, diarrhea, feeling weak, on assessment by EMS found to have hypotension, in route to the hospital received a bolus, received also a bolus of amiodarone after a run of VT reported. Here in ER noted very hypotensive, 51/28 lowest, with sinus tachycardia 110 bpm, leukocytosis up to 23.6. Saturation 93% on 6 L noted at discharge 2 L nasal cannula. Noted sodium 133, potassium 3.4, bicarb 15. Creatinine 3.3. Baseline troponin 40. NT proBNP 262. Albumin 2.5. Magnesium 1.4. Phos 1.3. UA hazy with 2+ protein, trace glucose, 1+ ketones, 2+ blood, 1+ bilirubin, 4 mg/dL urobilinogen, 2+ LE, 15-25 RBC, 80-100 WBC, 5-10 squamous Pelo cells, 1+ bacteria, 1+ yeast. CTAP pending. She states she did not take her medications yesterday, and any to that she did take she vomited up. Review of Systems Const: Reports: malaise and other (Weak) Eyes: Denies: change in vision, eye discomfort or eye redness ENMT: Denies: throat pain, oral sores or ear or mastoid pain Card: Denies: chest pain Resp: Denies: dyspnea, productive cough, change in phlegm color or hemoptysis GI: Reports: nausea, vomiting and diarrhea; Denies: abdominal pain, constipation, hematochezia or melena : Denies: flank pain, urinary frequency or hematuria Musc: Denies: back pain, joint swelling or joint redness Skin/Breast: Denies: rash or new lesions Neuro: Denies: headache(s), numbness in extremities, weakness in extremities, dizziness, confusion or seizure-like activity Endo: Denies: polyuria or polydipsia Charli/Lymph: Denies: easy bleeding or tender lymph nodes All/Imm: Denies: urticaria or tongue swelling Medications/Allergies Home Medications Medication Instructions Recorded Confirmed Last Taken Type epinephrine 0.3 mg/0.3 mL 0.3 mg (0.3 mL) IM Q10M PRN 04/20/20 01/12/22 Unknown Rx injection, auto-injector (EpiPen anaphylaxis #2 ea 2-Nabeel) diabetic supplies, miscellan. #1 ea 01/21/21 01/12/22 Unknown Rx blood sugar diagnostic (Pharmacist #50 ea 03/04/21 01/12/22 Unknown Rx Choice Glucose Test Strips) blood-glucose meter,continuous #1 ea 03/04/21 01/12/22 Unknown Rx polyethylene glycol 3350 17 17 g PO DAILY PRN Constipation 05/05/21 01/12/22 01/11/22 History gram/dose oral powder (Miralax) empagliflozin 10 mg tablet 10 mg PO QAM 08/02/21 01/12/22 01/11/22 History (Jardiance) pantoprazole 40 mg tablet,delayed 40 mg PO QAM 08/02/21 01/12/22 01/11/22 History release (Protonix) pramipexole 0.5 mg tablet (Mirapex) 1 mg PO BEDTIME 08/02/21 01/12/22 01/11/22 History semaglutide 0.25 mg or 0.5 mg (2 1 mg SUBCUT Q7D 08/02/21 01/12/22 12/26/21 History mg/1.5 mL) subcutaneous pen injector (Ozempic) pregabalin 150 mg capsule (Lyrica) 150 mg PO BID 90 days #180 caps 09/01/21 01/12/22 01/11/22 Rx cpap mask and supplies #1 ea 09/14/21 01/12/22 Unknown Rx levothyroxine 175 mcg tablet 175 mcg PO QAM 90 days #90 tabs 10/13/21 01/12/22 01/11/22 Rx silver sulfadiazine 1 % topical 1 applic topical BID #50 grams 12/15/21 01/12/22 01/11/22 Rx cream (Silvadene) apixaban 5 mg tablet (Eliquis) 5 mg PO Q12H 30 days #60 tabs 01/11/22 01/12/22 01/11/22 Rx spironolactone 25 mg tablet 12.5 mg PO DAILY 30 days #30 tabs 01/11/22 01/12/22 01/11/22 Rx bumetanide 2 mg tablet 2 mg PO Q8H #30 tabs 01/15/22 01/12/22 01/11/22 Rx hydrocortisone 10 mg tablet 15 mg PO QPM 30 days #45 tabs 01/15/22 Unknown Rx hydrocortisone 10 mg tablet 30 mg PO DAILY 30 days #90 tabs 01/15/22 Unknown Rx hydroxyzine pamoate 25 mg capsule 25 mg PO BID PRN Anxiety 15 days 01/15/22 Unknown Rx #30 caps magnesium L-lactate 84 mg 84 mg PO DAILY 30 days #30 tabs 01/15/22 Unknown Rx tablet,extended release (Magtab) meclizine 25 mg tablet 25 mg PO TID PRN Dizziness 15 days 01/15/22 Unknown Rx #45 tabs potassium chloride 20 mEq 40 meq PO Q8H 30 days #240 tabs 01/15/22 01/12/22 01/11/22 Rx tablet,extended release(part/cryst) (Klor-Con M) Allergies Allergy/AdvReac Type Severity Reaction Status Date / Time acetaminophen [From Tylenol] Allergy ALGY-Hives Verified 01/12/22 14:31 azithromycin Allergy ALGY-Anaphy Verified 01/12/22 14:31 laxis benzocaine Allergy ALGY-Hives Verified 01/12/22 14:31 butamben [From Cetacaine] Allergy ALGY-Swell Verified 01/12/22 14:31 Lip/Tongue/Throat codeine Allergy ALGY-Hives Verified 01/12/22 14:31 fentanyl Allergy ALGY-Anaphy Verified 01/12/22 14:31 laxis hydrocodone [From Vicodin] Allergy ALGY-Hives Verified 01/12/22 14:31 hydromorphone [From Dilaudid] Allergy ADR-Vomitin Verified 01/12/22 14:31 g Iodinated Contrast Media Allergy ALGY-Anaphy Verified 01/12/22 14:31 laxis liothyronine Allergy ADR-Nausea Verified 01/12/22 14:31 meperidine [From Demerol] Allergy Unknown Verified 01/12/22 14:31 morphine Allergy ALGY-Anaphy Verified 01/12/22 14:31 laxis nitrofurantoin Allergy ALGY-Joint Verified 01/12/22 14:31 [From Macrobid] Pain oxycodone [From Percocet] Allergy ALGY-Hives Verified 01/12/22 14:31 penicillin V Allergy ALGY-Hives Verified 01/12/22 14:31 Penicillins Allergy Unknown Verified 01/12/22 14:31 Phenothiazines Allergy ALGY-Anaphy Verified 01/12/22 14:31 laxis procaine Allergy ALGY-Hives Verified 01/12/22 14:31 prochlorperazine Allergy ALGY-Anaphy Verified 01/12/22 14:31 [From Compazine] laxis Sulfa (Sulfonamide Allergy Unknown Verified 01/12/22 14:31 Antibiotics) tetracaine [From Cetacaine] Allergy ALGY-Swell Verified 01/12/22 14:31 Lip/Tongue/Throat PFSH Acute PFSH: Medical History Acute kidney injury superimposed on chronic kidney disease Adrenal insufficiency Anasarca Anasarca Anasarca Anemia Benign essential hypertension with target blood pressure below 140/90 Central hypothyroidism CHF (congestive heart failure) CHF exacerbation Chronic back pain Follows at pain clinic for periodic injections COVID-19 (~09/2020) Edema ESBL (extended spectrum beta-lactamase) producing bacteria infection Facet arthritis, degenerative, lumbar spine Fatigue Gastroenteritis History of anaphylaxis History of atrial fibrillation Intermittent, has not required long-term anticoagulation or focused treatment History of COVID-19 HTN (hypertension) Hyperaldosteronism 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 Increased nausea and vomiting Lumbar spondylolysis OAB (overactive bladder) Obesity Obesity, morbid, BMI 50 or higher Obstructive sleep apnea KP (obstructive sleep apnea) Paroxysmal atrial fibrillation Pituitary macroadenoma with extrasellar extension Prediabetes Pulmonary hypertension PVD (peripheral vascular disease) Steroid dependence Tachycardia Unsteady gait UTI (urinary tract infection) Venous (peripheral) insufficiency Volume overload Surgical History H/O shoulder surgery History of hysterectomy History of pituitary surgery S/P insertion of spinal cord stimulator Family History Father Cancer pancreatic cancer Sister No problems noted. 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 Vitals/I&O/Wt Last Vital Signs Temp 99.0 F 01/16/22 21:54 Pulse 82 01/16/22 23:22 Resp 22 H 01/16/22 23:22 BP 91/38 01/16/22 23:22 Pulse Ox 93 01/16/22 21:54 O2 Del Method 01/16/22 21:54 O2 Flow Rate 6 01/16/22 21:54 01/16/22 01/16/22 01/17/22 14:59 22:59 06:59 Intake Total 7.62 / 7.62 14.224 / 21.844 Balance 7.62 / 7.62 14.224 / 21.844 Weight last 48 hrs Weight 151.5 kg Physical Exam Const: COMMON NORMALS: patient oriented x3 GENERAL APPEARANCE: cooperative NUTRITIONAL APPEARANCE: obese morbidly obese ORIENTATION/CONSCIOUSNESS: Yes awake HENMT: COMMON NORMALS: oropharynx normal Neck/C-Spine: OTHER: Thick neck, unable to assess JVD. R IJ CVC Resp: COMMON NORMALS: normal respiratory effort and clear to auscultation bilaterally AUSCULTATION: clear to auscultation bilaterally Cardio: COMMON NORMALS: no JVD, regular rhythm, S1 normal heart sound present, S2 normal heart sound present and No murmurs present (Cardio) RHYTHM: regular rhythm HEART SOUNDS: S1 normal heart sound present and S2 normal heart sound present GI: COMMON NORMALS: Normal to inspection, nondistended, normoactive bowel sounds present, Soft to palpation and non-tender PALPATION: Yes Soft to palpation Extremity: COMMON NORMALS: no joint enlargement GENERAL: Yes edema (BL LE 2+) Neuro: COMMON NORMALS: patient oriented x3 and moves all extremities SENSORIUM/ORIENTATION: Yes alert Skin: OTHER: BL venous stasis dermatitis with ulceration Mottling Urinary Catheter Management: Zurita: Cath Placed During This Visit: yes Urinary Catheter Date of Insertion: 01/16/22 Urinary Catheter Time of Insertion: 22:53 Sepsis: Is patient septic: Yes Focused sepsis exam performed: Yes Focused sepsis exam: Tachycardia. Mild mottling extremities noted. Normal capillary refill. Data : 01/16/22 22:00 01/16/22 22:00 A&P Assessment and plan (1) Shock: Suspected septic shock secondary to urinary tract infection with hypotension requiring pressor, with leukocytosis 23.6, sinus tachycardia 110 bpm, low-grade temp 99 Fahrenheit. With endorgan injury with RODRIGUE on CKD, creatinine 3.3. Mild troponin abnormality, 40. Complete troponin series. Other source not excluded. Discussed with her prior ESBL Proteus infection back in April, resistant to all available antibiotics apart from aminoglycosides. Discussed with her risks including nephrotoxicity, ototoxicity. Additionally noted yeast in urine, for now empirically Diflucan as well. Additionally assess COVID-19 PCR given nausea, vomiting, possible nonspecific colitis, increased oxygen demand. CT abdomen pelvis with possible nonspecific colitis, did not receive antibiotics recently, but with hospitalization assess C. difficile. Stool culture. Empirically add Flagyl. Blood, urine cultures collected. Follow-up. Pressor to maintain mean arterial pressures, target 65 mmHg. With underlying adrenal insufficiency additionally continue stress dose steroids with 100 mg hydrocortisone every 6 hours for now, taper off depending on improvement. (2) UTI (urinary tract infection): As above. Follow-up urine culture. De-escalate off aminoglycoside if possible. (3) Acute kidney injury superimposed on CKD: Suspected prerenal with shock, hypotension on presentation, hold diuretics for now. Received volume monitor for fluid overload given underlying diastolic congestive heart failure. No obstructive uropathy noted on CT abdomen pelvis. Follow-up renal function. (4) Metabolic acidosis: Check lactic acid. Suspected lactic acidosis in setting of sepsis and septic shock. Possibly additionally from RODRIGUE on CKD. (5) Nausea vomiting and diarrhea: Additional assessment as above. Check COVID-19 PCR. C. difficile, stool culture. So far without recurrence. Possibly contribution from RODRIGUE on CKD. Pantoprazole. Zofran as needed. (6) Adrenal insufficiency: Stress dose steroids currently. Taper off depending on progress and continue maintenance once recovering from acute illness. (7) VT (ventricular tachycardia): Repeat that episode of ventricular tachycardia in route for which reportedly received a bolus dose of amiodarone. Suspect may be secondary to septic shock, additionally electrolyte deficiencies, replace. At this continue treatment of underlying conditions and hemodynamic support as above. Consider resumption of amiodarone in case of recurrence. (8) Hypomagnesemia: Replace and follow-up level (9) Hypophosphatemia: Replace and follow-up level (10) Hypokalemia: Replace and follow-up level Plan Diastolic CHF, diuretic on hold for now A. fib on Eliquis, anticoagulation switched to heparin drip for now Hypopituitarism and adrenal sufficiency, CKD, Chronic hyponatremia Morbid obesity, KP, Pulmonary hypertension, PVD, Stasis edema lower extremities with ulceration and stasis dermatitis Numerous antibiotic allergies Attestations Medical Necessity Statement*: Admission of over 2 midnights is anticipated for assessment of management of septic shock, complicated UTI with previously mul tidrug-resistant organism present, RODRIGUE on CKD, additional comorbidities as above. Critical Care Time: The high probability of a clinically significant, sudden or life threatening deterioration of the patient's hemodynamic, infectious disease, urologic, endocrine system(s) required my full and direct attention, intervention and personal management. The critical care time is as shown. This time is in addition to time spent performing any reported procedures but includes the following: x Data and vital sign review and interpretation x Patient assessment, examination and intervention x Documentation x Medication orders and management Critical Care Time (min): 65 Coding Level of Care Code Acute Managed Care Nurse for Duarte Molina Diagnoses Shock R57.9 UTI (urinary tract infection) N39.0 Acute kidney injury superimposed on CKD N17.9; N18.9 Metabolic acidosis E87.20 Nausea vomiting and diarrhea R11.2; R19.7 Adrenal insufficiency E27.40 VT (ventricular tachycardia) I47.20 Hypomagnesemia E83.42 Hypophosphatemia E83.39 Hypokalemia E87.6
[2022-01-17] MEDS: hydrocortisone 100 mg/2 mL SDV IVP ×3 (00:30→12:25)
[2022-01-17] MEDS: levofloxacin-dextrose 5 % 750 MG/150 ML PREMIX 100 MG IV (00:33)
[2022-01-17 00:48] LABS: Lactate (Lactic Acid level) 1.5 mmol/L (0.5-2.2)
[2022-01-17] MEDS: sodium chloride 0.9% 1,000 ML 1000 ML IV (00:48)
[2022-01-17] MEDS: metroNIDAZOLE IV 500 MG/100 ML PREMIX 100 MG IV ×2 (01:10→09:08)
[2022-01-17 01:18] LABS: Troponin 5 2HR 49.96 ng/L (0-10); Troponin 5 2HR Delta 9.96 ABS# (0-10)
--- NOTE | 2022-01-17 02:10 | PC.NURSE ---
Pt arrived from via radha @ approximately 1333.
--- NOTE | 2022-01-17 02:10 | PC.NURSE ---
Pt arrive to the unit with a 3 lumen central line to the r. neck.
[2022-01-17] MEDS: heparin drip 25,000 UNIT/500 ML PREMIX 36 UNIT IV (02:35)
[2022-01-17 02:44] LABS: Adenovirus Not Detected (NOT DETECT); Chlamydia Pneumoniae Not Detected (NOT DETECT); Coronavirus 229E,HKU1,NL63,OC4 Not Detected (NOT DETECT); Human Metapneumovirus Not Detected (NOT DETECT); Human Rhinovirus/Enterovirus Not Detected (NOT DETECT); Influenza A Not Detected (NOT DETECT); Influenza A H1 Not Detected (NOT DETECT); Influenza A H1-2009 Not Detected (NOT DETECT); Influenza A H3 Not Detected (NOT DETECT); Influenza B Not Detected (NOT DETECT); Mycoplasma Pneumoniae Not Detected (NOT DETECT); Parainfluenza Virus Type 1 Not Detected (NOT DETECT); Parainfluenza Virus Type 2 Not Detected (NOT DETECT); Parainfluenza Virus Type 3 Not Detected (NOT DETECT); Parainfluenza Virus Type 4 Not Detected (NOT DETECT); Respiratory Syncytial Virus A Not Detected (NOT DETECT); Respiratory Syncytial Virus B Not Detected (NOT DETECT); SARS-COV-2 Not Detected (NOT DETECT)
[2022-01-17] MEDS: pantoprazole 40 mg SDV IVP (03:00)
[2022-01-17] MEDS: fluconazole premix 100 MG in empty flexible container 1 EACH 50 MG IV (03:00)
[2022-01-17] MEDS: heparin 5,000 unit/mL INJ 1 mL IV (03:05)
--- NOTE | 2022-01-17 03:10 | ECG_ITS ---
[facility] Test Date: 2022-01-17 Pat Name: Carolyn Alexander Department: Room: ICU11 Gender: Female Manager Community Development: : 1950 Requested By: Zaheer Morgan Order Number: [id number] Laina MD: Jaki Leavitt M.D. Measurements Intervals Rush Rate: 86 P: 86 MS: 159 QRS: -48 QRSD: 104 T: 51 QT: 397 QTc: 475 Interpretive Statements SINUS RHYTHM LOW QRS VOLTAGE [QRS DEFLECTION < 0.5/1.0 mV IN LIMB/CHEST LEADS] LEFT ANTERIOR FASCICULAR BLOCK [QRS AXIS <= -45, QR IN I, RS IN II] POSSIBLE ANTERIOR MYOCARDIAL INFARCTION , PROBABLY OLD [30 ms Q WAVE IN V3/V4, OR R < 0.2 mV IN V4] Compared to ECG 01/16/2022 21:55:05 Sinus tachycardia no longer present Myocardial infarct finding still present Electronically Signed On 01-17-2022 23:08:15 CDT by Jaki Leavitt M.D. [id number]
[2022-01-17] MEDS: insulin lispro 100 unit/1 mL SUBCUT ×4 (03:14→20:30)
[2022-01-17 03:16] LABS: Glucose Point of Care 182 mg/dL (70-110)
[2022-01-17 03:58] LABS: Basophils # 0.2 10^3/uL (0.0-0.1); Basophils % 0.7 %; Eosinophils # 0.2 10^3/uL (0.0-0.8); Eosinophils % 0.6 %; Hematocrit 38.7 % (37.0-47.0); Hemoglobin 11.3 g/dL (11.5-15.3); Lymphocytes # 1.2 10^3/uL (0.8-4.8); Lymphocytes % 4.5 %; Mean Corpuscular HGB Conc 29.2 g/dL (30.0-36.0); Mean Corpuscular Hemoglobin 22.8 pg (28.0-34.0); Mean Platelet Volume 10.3 fL (7.4-10.4); Monocytes # 1.8 10^3/uL (0.2-0.9); Monocytes % 6.9 %; Neutrophils # 21.84 10^3/uL (1.8-7.7); Neutrophils % 82.5 %; Nucleated Red Blood Cells % 0 %; Platelet Count 336 10^3/cmm (130-400); Red Blood Count 4.96 10^6/uL (4.1-5.3); Red Cell Distribution Width 17.6 % (12.1-15.1); White Blood Count 26.5 10^3/uL (4.0-10.0)
[2022-01-17 04:34] LABS: Alanine Aminotransferase 33 U/L (0-33); Albumin Level 2.8 g/dL (3.5-5.2); Alkaline Phosphatase 94 U/L (35-105); Anion Gap 19.3 (5-19); Aspartate Amino Transferase 40 U/L (0-32); Blood Urea Nitrogen 21 mg/dL (8-23); Calcium 8.3 mg/dL (8.5-10.5); Carbon Dioxide 16 mmol/L (22-29); Chloride 99 mmol/L (98-107); Globulin 2.6 g/dL (1.3-4.6); Glomerular Filtration Rate 12.5 mL/min (90-130); Glucose 191 mg/dL (65-115); Osmolality Calculated 278 mOsm/kg (285-295); Potassium 4.3 mmol/L (3.5-5.1); Sodium 130 mmol/L (136-145); Total Bilirubin 0.6 mg/dL (0.15-1.2); Total Protein 5.4 g/dL (6.6-8.7)
[2022-01-17 04:35] LABS: Phosphorus 2.5 mg/dL (2.5-4.5); Troponin 5 6HR 51.97 ng/L (0-10); Troponin 5 6HR Delta 11.97 ng/L (0-12)
[2022-01-17] MEDS: ipratropium-albuterol 3 mL Neb INHALATION ×2 (08:12→13:27)
[2022-01-17 08:51] LABS: Glucose Point of Care 225 mg/dL (70-110)
[2022-01-17] MEDS: sodium bicarbonate 650 mg Tablet PO ×2 (09:08→14:19)
[2022-01-17 09:14] LABS: Lactic Sepsis W/Reflex 1.3 mmol/L (0.5-2.2)
--- NOTE | 2022-01-17 09:26 | XR_ITS ---
WS: [id number] Exam: XR foot LT 2V [id number] Date/Time of Exam: 01/17/2022 9:40 AM Reason For Exam: possible 4,5 toe fracture No acute fracture or dislocation. Moderate hallux valgus. No soft tissue foreign bodies are seen. XR/XR foot LT 2V [id number] IMPRESSION: 1. No acute fracture or dislocation.
[2022-01-17 10:32] LABS: Partial Thromboplastin Time 188.2 SECONDS (23.9-36.7)
--- NOTE | 2022-01-17 12:35 | PC.CHAP ---
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 finish mender visit [] Patient/Family/Request visit [] Outpatient visit [] Follow-up visit [] Physician referral [] Code/Alert [x] Routine visit [] Staff referral [] Actively dying [] Patient sleeping [x] Family support [] [] Out of room [] Palliative care [] [] Receiving care in room [] Pre-surgical visit [] Trauma [] Long length of stay [x] ICU visit [x] Other: patient shows sighs of fear.. not normal.. will continue prayer and visits Relational/Emotional Strength [] Patient feels connected with others/family/visitors/staff [] Distress [] Loneliness/isolation [] Abandonment Spirituality of Patient [x] Person of Minoo [x] Attends [employer]eter[employer] of their [place]ino[place] [] Believes in Prayer [] Reads Bible or Faith materials [] There are Spiritual issues to be addressed Environmental Safety Specialist Interventions [x] Prayer [x] Active listening [] Non-anxious presence [] Spiritual/emotional support [] Crisis/trauma care [] Spiritual counseling [] Bereavement support [] Provided bereavement packet [] Provided Bible/devotional materials [] Provided toy/stuffed animal, coloring book to patient or family member [] Provided Communion [] Anointing/[place] [] Salvation [x] Completed spiritual assessment [] Other: Impact on Illness or Injury [] Angry [] Fearful [] Anxious [] Often cries [] Exhaustion [] Unable to work [] Unable to attend oriental orthodox [] Unable to walk/stand [] Unable to read [] Unable to drive [] Unable to eat/drink [] Unable to sleep [] Unable to be with family [] Patient intubated [] Other: Summary Time spent with patient
--- NOTE | 2022-01-17 12:35 | PM.MISC ---
Miscellaneous Note Note: H&P reviewed, previous admission records reviewed This morning patient is not complaining of active pain, she was asking about imaging of left foot patient is stating that she fell when she was using the restroom and hurt her left ankle, Patient is laying supine Currently on levo at 12 mics MAP 65 Awake and alert EOMI, PERRLA Nonfocal neuro exam Morbidly obese Signs of CHF Lower extremity Lymphedema, vascular compromise No active bleeding Assessment and plan Septic shock related to colitis and UTI History of ESBL Proteus We will follow-up with urine cultures I will change her antibiotics to meropenam renally dosed for gram-negative and anaerobic coverage Discontinue gentamicin she received dose of gentamicin and Levaquin which could be nephrotoxic and may worsen her chronic kidney disease Decrease the dose of steroids Add midodrine Judicious use of fluids Rule out C. difficile A. fib without RVR Currently on heparin drip APTT was held heparin for 2 hours, decrease units ICU nurse updated Acute on chronic kidney disease Likely related to sepsis Use of nephrotoxic agents Monitor urine output Electrolytes replenished Severe metabolic acidosis Lactic acid is normal now Added bicarb tablets Repeat BMP in the evening Episode of V. tach no recurrence noted during hospitalization up to now I will hold off on adding amiodarone Potassium is 4 magnesium 2 EKG reviewed Troponins trending down No chest pain Congestive heart failure Patient seems to be well compensated for now no acute exacerbation Morbidly obese Is hard to assess her volume status however she seems to be compensated for CHF for now Adrenal insufficiency I will add midodrine decrease the dose of stress to steroids to twice a day instead of every 6 hours Electrolytes replenished Full code Advance diet to clear liquids We might need to start bicarb drip in case of worsening of acidosis follow-up with repeat BMP at 4 PM
[2022-01-17 13:40] LABS: Ketone (Acetest) Serum Negative (Negative)
[2022-01-17 14:05] LABS: Glucose Point of Care 278 mg/dL (70-110)
[2022-01-17] MEDS: midodrine 5 mg TABLET 10 MG PO ×2 (14:19→20:29)
[2022-01-17] MEDS: meropenem 500 MG in sodium chloride 0.9% (plus) 50 ML 100 MG IV (14:21)
[2022-01-17 15:11] LABS: Partial Thromboplastin Time 30.8 SECONDS (23.9-36.7)
[2022-01-17 17:35] LABS: Anion Gap 15.3 (5-19); Blood Urea Nitrogen 18 mg/dL (8-23); Calcium 8.9 mg/dL (8.5-10.5); Carbon Dioxide 22 mmol/L (22-29); Chloride 97 mmol/L (98-107); Glomerular Filtration Rate 22.1 mL/min (90-130); Glucose 244 mg/dL (65-115); Osmolality Calculated 282 mOsm/kg (285-295); Potassium 3.3 mmol/L (3.5-5.1); Sodium 131 mmol/L (136-145)
[2022-01-17] MEDS: potassium chloride ER 20 mEq Tablet 40 MEQ PO (18:36)
[2022-01-17 19:46] LABS: Glucose Point of Care 244 mg/dL (70-110)
[2022-01-17 20:56] LABS: Partial Thromboplastin Time 64.5 SECONDS (23.9-36.7)
--- NOTE | 2022-01-17 21:29 | PC.NURSE ---
PTT 64.5 No change per protocol.
[2022-01-17] MEDS: pramipexole 0.25 mg Tablet PO (22:17)
[2022-01-17] MEDS: pregabalin 75 mg Capsule PO (22:18)
[2022-01-17] MEDS: heparin drip 25,000 UNIT/500 ML PREMIX 28 UNIT IV (23:33)
[2022-01-18] VITALS (86 sets, daily range): BP systolic 73–126; BP diastolic 44–80; PULSE 58–107; RESP 12–40; TEMP 36.6–37.2; O2SAT 67–98
[2022-01-18] MEDS: meropenem 500 MG in sodium chloride 0.9% (plus) 50 ML 100 MG IV ×2 (00:34→13:23)
[2022-01-18] MEDS: hydrocortisone 100 mg/2 mL SDV IVP ×2 (00:35→12:57)
[2022-01-18 02:49] LABS: Basophils # 0.1 10^3/uL (0.0-0.1); Basophils % 0.4 %; Eosinophils # 0.1 10^3/uL (0.0-0.8); Eosinophils % 0.5 %; Hematocrit 35.8 % (37.0-47.0); Hemoglobin 10.9 g/dL (11.5-15.3); Lymphocytes % 4.5 %; Mean Corpuscular HGB Conc 30.4 g/dL (30.0-36.0); Mean Corpuscular Hemoglobin 22.6 pg (28.0-34.0); Mean Corpuscular Volume 74.3 fl (81-99); Mean Platelet Volume 9.6 fL (7.4-10.4); Monocytes # 2.5 10^3/uL (0.2-0.9); Neutrophils # 18.61 10^3/uL (1.8-7.7); Neutrophils % 81.8 %; Nucleated Red Blood Cells % 0 %; Platelet Count 301 10^3/cmm (130-400); Red Blood Count 4.82 10^6/uL (4.1-5.3); Red Cell Distribution Width 17.5 % (12.1-15.1); White Blood Count 22.7 10^3/uL (4.0-10.0)
[2022-01-18] MEDS: ipratropium-albuterol 3 mL Neb INHALATION ×4 (03:00→20:01)
[2022-01-18 03:06] LABS: Partial Thromboplastin Time 69.5 SECONDS (23.9-36.7)
[2022-01-18 03:15] LABS: Alanine Aminotransferase 37 U/L (0-33); Alkaline Phosphatase 94 U/L (35-105); Anion Gap 13.8 (5-19); Aspartate Amino Transferase 47 U/L (0-32); Blood Urea Nitrogen 16 mg/dL (8-23); Calcium 8.9 mg/dL (8.5-10.5); Carbon Dioxide 26 mmol/L (22-29); Chloride 99 mmol/L (98-107); Globulin 2.4 g/dL (1.3-4.6); Glomerular Filtration Rate 29.8 mL/min (90-130); Glucose 133 mg/dL (65-115); Magnesium 1.8 mg/dL (1.7-2.3); Osmolality Calculated 283 mOsm/kg (285-295); Phosphorus 2.3 mg/dL (2.5-4.5); Potassium 3.8 mmol/L (3.5-5.1); Sodium 135 mmol/L (136-145); Total Bilirubin 0.6 mg/dL (0.15-1.2); Total Protein 5.4 g/dL (6.6-8.7)
[2022-01-18 03:20] LABS: Glucose Point of Care 146 mg/dL (70-110)
[2022-01-18] MEDS: insulin lispro 100 unit/1 mL SUBCUT ×4 (03:21→20:28)
[2022-01-18] MEDS: pantoprazole 40 mg SDV IVP (03:21)
--- NOTE | 2022-01-18 03:34 | PC.NURSE ---
PTT 69.5 No change to heparin gtt per protocol.
[2022-01-18 07:31] LABS: Glucose Point of Care 170 mg/dL (70-110)
[2022-01-18] MEDS: midodrine 5 mg TABLET 10 MG PO ×3 (08:20→20:28)
[2022-01-18] MEDS: apixaban 5 mg Tablet 2.5 MG PO ×2 (08:20→20:29)
[2022-01-18] MEDS: pregabalin 75 mg Capsule PO ×2 (08:21→09:28)
[2022-01-18] MEDS: fluconazole 100 mg Tablet PO (08:21)
[2022-01-18] MEDS: lanolin oint 7 gm 1 APPLIC TOPICAL (08:26)
--- NOTE | 2022-01-18 10:05 | P.PN_ITS ---
Subjective Subjective: She was asking for advancement in her diet She also has stable lactulose and ibuprofen Did tell her that creatinine has improved I will go ahead and increase her Lyrica dose to home Dose However Ibuprofen Is Strictly Contraindicated Considering Chronic Kidney Disease No signs of V. tach No PVCs Acidosis improved She has been off Levophed since 2 AM as per the nursing staff Patient is endorsing feeling better as well No fever She received meropenem no allergic reaction to meropenem at all I do not think she has real penicillin allergies Vitals/I&O/Wt Last Vital Signs Temp 98.9 F 01/18/22 09:30 Pulse 78 01/18/22 09:30 Resp 15 01/18/22 09:30 BP 92/65 01/18/22 09:30 Pulse Ox 94 01/18/22 09:30 O2 Del Method 01/18/22 09:11 O2 Flow Rate 2 01/17/22 16:00 01/17/22 01/18/22 01/18/22 22:59 06:59 14:59 Intake Total 1313.917 / 2360.677 116.929 / 2477.606 483.6 / 483.6 Output Total 3800 / 8900 250 / 9150 Balance -2486.083 / -6539.323 -133.071 / -6672.394 483.6 / 483.6 Weight last 48 hrs Weight 152.464 kg Weight 154.494 kg Weight 154.494 kg Weight 151.5 kg Physical Exam Narrative: Patient is awake and alert Pleasant and cooperative Currently on room air Abdomen soft Bilateral breath sound without adventitious rhonchi or crackles Left foot covered in dressing No signs of vascular compromise CHF seems compensated Awake and alert Nonfocal neuro exam Multiple petechiae of upper and lower extremities Urinary Catheter Management: Zurita: Cath Placed During This Visit: yes Reason for Continuing Indwelling Catheter: Accurate Measurement of Urinary Output in Critically Ill Patients Urinary Catheter Date of Insertion: 01/16/22 Urinary Catheter Time of Insertion: 22:53 Data : 01/18/22 02:24 01/18/22 02:24 Micro: Microbiology 01/16/22 00:27 Blood Culture - Preliminary Blood NEGATIVE TO DATE 01/16/22 00:24 Blood Culture - Preliminary Blood NEGATIVE TO DATE A&P Assessment and plan (1) Hypophosphatemia: (2) Hypomagnesemia: (3) VT (ventricular tachycardia): (4) Adrenal insufficiency: (5) Nausea vomiting and diarrhea: (6) Metabolic acidosis: (7) Acute kidney injury superimposed on CKD: (8) Shock: (9) Chronic hyponatremia: (10) Hx of atrial fibrillation, no current medication: (11) Stasis edema with ulcer and inflammation: (12) Atrial fibrillation: Plan Septic shock: Resolved Source colitis and UTI Cultures negative so far she has been getting meropenem and She is off Levophed Her leukocytosis related to high-dose steroids I will cut back on her hydrocortisone to p.o. regimen If her blood pressure stays stable we can transition her to [facility] She has been getting midodrine as well Diastolic CHF seems compensated He has diuresed aggressively without use of diuretics Clinically looks compensated Hypokalemia: Repleted Hypophosphatemia: Repleted Hypomagnesemia: Repleted Acute on chronic kidney disease: Improved V. tach reported by the EMS however no such malignant arrhythmia noted throughout her hospitalization No chest pain No significant troponin leak A. fib without RVR Continue AV andrew blocking agent and I will switch her back to Eliquis heparin discontinued Metabolic acidosis improved, serum ketones negative, lactic acid normal Patient is agreeable to go to [facility], she prefers [facility] disability manager is aware She is full code Foot x-ray does not show any signs of acute pathological fractures Yeast in her urine analysis detected discontinue fluconazole now Attestations Medical Necessity Statement*: SHe can be transferred to [facility] if blood pressure remains stable Time Spent in Patient Care: 40 Coding Level of Care Code Acute Production Specialist for [facility] Fwd Diagnoses Hypophosphatemia E83.39 Hypomagnesemia E83.42 VT (ventricular tachycardia) I47.20 Adrenal insufficiency E27.40 Nausea vomiting and diarrhea R11.2; R19.7 Metabolic acidosis E87.20 Acute kidney injury superimposed on CKD N17.9; N18.9 Shock R57.9 Chronic hyponatremia E87.1 Hx of atrial fibrillation, no current medication Z86.79 Stasis edema with ulcer and inflammation I87.339; L97.909 Atrial fibrillation I48.91
--- NOTE | 2022-01-18 10:55 | W.ED.SOB ---
HPI - SOB/Dyspnea General: Chief Complaint: Shortness of Breath/Dyspnea Stated Complaint: SOB Time Seen by Provider: 01/16/22 21:50 History of Present Illness: HPI Narrative: 71 year old female with a history of multiple medical problems, and recent hospitalization. She came home from the hospital yesterday, and was feeling improved after treatment for congestive heart failure, pulmonary edema, due to diastolic dysfunction. Today, she began to vomit and have diarrhea. She had several episodes of this according to a friend who was with her. She became very weak, and essentially collapsed. EMS was called to the home. She presents hypotensive, with mild mental status change, and feeling very weak and lethargic. Evidently in route, she had a significant run of ventricular tachycardia, with a pulse, and was given amiodarone for this. Following that, she converted to a sinus tachycardia. Related Data: Home oxygen amount: none PFSH ED PFSH: Medical History Acute kidney injury superimposed on chronic kidney disease Adrenal insufficiency Anasarca Anasarca Anasarca Anemia Benign essential hypertension with target blood pressure below 140/90 Central hypothyroidism CHF (congestive heart failure) CHF exacerbation Chronic back pain Follows at pain clinic for periodic injections COVID-19 (~09/2020) Edema ESBL (extended spectrum beta-lactamase) producing bacteria infection Facet arthritis, degenerative, lumbar spine Fatigue Gastroenteritis History of anaphylaxis History of atrial fibrillation Intermittent, has not required long-term anticoagulation or focused treatment History of COVID-19 HTN (hypertension) Hyperaldosteronism 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 Increased nausea and vomiting Lumbar spondylolysis OAB (overactive bladder) Obesity Obesity, morbid, BMI 50 or higher Obstructive sleep apnea KP (obstructive sleep apnea) Paroxysmal atrial fibrillation Pituitary macroadenoma with extrasellar extension Prediabetes Pulmonary hypertension PVD (peripheral vascular disease) Steroid dependence Tachycardia Unsteady gait UTI (urinary tract infection) Venous (peripheral) insufficiency Volume overload Surgical History H/O shoulder surgery History of hysterectomy History of pituitary surgery S/P insertion of spinal cord stimulator Family History Father Cancer pancreatic cancer Sister No problems noted. 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 Procedures Central Line Placement Right IJ: Time Out Performed: No Patient Placed on Monitor/Pulse Ox: Yes Prep: mask, gown and gloves Central Line Prep: Chlorhexidine scrub Local Anesthetic: lidocaine 1% Amount of anesthesia used (mL): 3 Ultrasound Used for Placement: Yes Central Line Lumen Inserted: triple Post Procedure: sutured in place, good blood return, all ports aspirated, flushed, capped and sterile dressing applied Post Procedure X-Ray: tip of catheter in good position Patient Tolerated Procedure: well and no complications Complications: none Course Vital Signs: Vital signs: Vital Signs Temperature 98.9 F 01/18/22 09:30 Pulse Rate 78 01/18/22 09:30 Respiratory Rate 15 01/18/22 09:30 Blood Pressure 92/65 01/18/22 09:30 Pulse Oximetry 94 01/18/22 09:30 Oxygen Delivery Me thod 01/18/22 09:11 Oxygen Flow Rate 2 01/17/22 16:00 MDM - SOB/Dyspnea Medical Decision Making Ana was quite hypotensive on arrival. Blood pressure was as low as 50 systolic. She was lethargic, but remained conscious. She answers most questions appropriately. She appears shorter breath, although she says she's not overly short of breath. She was given a total of three liters of fluid in the emergency department. She was started on levophed as well due to the hypertension. Blood pressure is improved after fluid bolus and pressor administration to some degree. Triple lumen catheter was placed and her right neck due to lack of Iv access. lactic acid is normal. Her bicarbonate is 15. Chest X-ray shows accentuated cardiac silhouette and vascularity. On CT she has a mural thickening of the descending and sigmoid: that could be a nonspecific colitis. Her white blood cell count is 23.6. Her BNP is not significantly elevated. She appears to have needed the fluid. Case discussed with hospitalist, who has seen the patient in the ER. She will go to the ICU. Lab Data : 01/18/22 02:24 01/18/22 02:24 Labs/Radiology: Radiology Impressions Chest X-Ray 01/16/22 21:58 IMPRESSION: 1. Accentuated cardiac silhouette size and vascularity. See discussion above. 2. No obvious acute consolidation. Suboptimal lung base assessment. Followup including lateral view may be obtained if clinically indicated. Abdomen/Pelvis CT 01/16/22 23:41 IMPRESSION: 1. The study is limited by patient body habitus. 2. Decreased hepatic density is noted, consistent with hepatic steatosis. 3. Mural thickening of the descending and sigmoid colon, with mild pericolonic inflammation, consistent with nonspecific colitis. This is new when compared to 01/06/2022. 4. No other interval change noted when compared to the previous study. Foot X-Ray 01/17/22 09:26 IMPRESSION: 1. No acute fracture or dislocation. Laboratory Results WBC 23.6 10^3/uL (4.0-10.0) H 01/16/22 22:00 RBC 5.52 10^6/uL (4.1-5.3) H 01/16/22 22:00 Hgb 12.7 g/dL (11.5-15.3) 01/16/22 22:00 Hct 42.3 % (37.0-47.0) 01/16/22 22:00 MCV 76.6 fl (81-99) L 01/16/22 22:00 MCH 23.0 pg (28.0-34.0) L 01/16/22 22:00 MCHC 30.0 g/dL (30.0-36.0) 01/16/22 22:00 RDW 17.8 % (12.1-15.1) H 01/16/22 22:00 Plt Count 326 10^3/cmm (130-400) 01/16/22 22:00 MPV 10.0 fL (7.4-10.4) 10/23/22 22:00 Neut % (Auto) 77.5 % 01/16/22 22:00 Lymph % (Auto) 7.5 % 01/16/22 22:00 Dent % (Auto) 9.3 % 01/16/22 22:00 Eos % (Auto) 1.9 % 01/16/22 22:00 Baso % (Auto) 0.6 % 01/16/22 22:00 Neut # (Auto) 18.26 10^3/uL (1.8-7.7) H 01/16/22 22:00 Lymph # (Auto) 1.8 10^3/uL (0.8-4.8) 01/16/22 22:00 Dent # (Auto) 2.2 10^3/uL (0.2-0.9) H 01/16/22 22:00 Eos # (Auto) 0.4 10^3/uL (0.0-0.8) 01/16/22 22:00 Baso # (Auto) 0.2 10^3/uL (0.0-0.1) H 01/16/22 22:00 Nucleated RBC % (auto) 0 % 01/16/22 22:00 Nucleated RBCs # 0.0 /100WBC 01/16/22 22:00 PT 18.70 SECONDS (12.1-14.9) H 01/16/22 22:00 INR 1.52 (0.8-1.2) H 01/16/22 22:00 APTT 25.2 SECONDS (23.9-36.7) 01/16/22 22:00 Sodium 133 mmol/L (136-145) L 01/16/22 22:00 Potassium 3.4 mmol/L (3.5-5.1) L 01/16/22 22:00 Chloride 104 mmol/L (98-107) 01/16/22 22:00 Carbon Dioxide 15 mmol/L (22-29) L 01/16/22 22:00 Anion Gap 17.4 (5-19) 01/16/22 22:00 BUN 18 mg/dL (8-23) 01/16/22 22:00 Creatinine 3.3 mg/dL (0.5-0.9) H 01/16/22 22:00 GFR Calculation 13.9 mL/min (90-130) L 01/16/22 22:00 Glucose 94 mg/dL (65-115) 01/16/22 22:00 Calculated Osmolality 278 mOsm/kg (285-295) L 01/16/22 22:00 Lactate 1.5 mmol/L (0.5-2.2) 01/16/22 00:24 Calcium 7.3 mg/dL (8.5-10.5) L 01/16/22 22:00 Phosphorus 1.3 mg/dL (2.5-4.5) L 01/16/22 22:00 Magnesium 1.4 mg/dL (1.7-2.3) L 01/16/22 22:00 Total Bilirubin 0.6 mg/dL (0.15-1.2) 01/16/22 22:00 AST 17 U/L (0-32) 01/16/22 22:00 ALT 26 U/L (0-33) 01/16/22 22:00 Alkaline Phosphatase 86 U/L (35-105) 01/16/22 22:00 Creatine Kinase 143 U/L (26-192) 01/16/22 22:00 Troponin T Baseline 40 ng/L (0-10) H 01/16/22 22:00 Troponin T 120 Minute 49.96 ng/L (0-10) H 01/17/22 00:24 Delta Troponin T 9.96 ABS# (0-10) 01/17/22 00:24 NT-Pro-B Natriuret Pep 262 pg/mL (0-125) H 01/16/22 22:00 Total Protein 5.0 g/dL (6.6-8.7) L 01/16/22 22:00 Albumin 2.5 g/dL (3.5-5.2) L 01/16/22 22:00 Globulin 2.5 g/dL (1.3-4.6) 01/16/22 22:00 Urine Color Yellow (Yellow) 01/16/22: Urine Appearance Hazy (CLEAR) A 01/16/22:44 Urine pH 5 (5-7) 01/16/22:44 Ur Specific [place] 1.025 (1.005-1.030) 01/16/22: Urine Protein 2+ (Negative) H 10/23/22 22:44 Urine Glucose (UA) Trace (Normal) H 01/16/22 22:44 Urine Ketones 1+ (Negative) H 01/16/22 22:44 Urine Blood 2+ (Negative) H 01/16/22 22:44 Urine Nitrate Negative (Negative) 01/16/22 22:44 Urine Bilirubin 1+ (Negative) H 01/16/22 22:44 Urine Urobilinogen 4 mg/dL (Negative) H 01/16/22 22:44 Ur Leukocyte Esterase 2+ (Negative) H 01/16/22 22:44 Urine RBC 15-25 /hpf (0-2) H 01/16/22 22:44 Urine WBC 80-100 /hpf (0-5) H 01/16/22 22:44 Ur Squamous Epith Cells 5-10 /hpf (0-5) H 01/16/22 22:44 Ur Transition Epith Cell 5-10 /hpf 01/16/22 22:44 Amorphous Sediment Not Reportable 01/16/22 22:44 Urine Bacteria 1+ /hpf (NONE) H 01/16/22 22:44 Urine Yeast 1+ /hpf H 01/16/22 22:44 Coronavirus 229E (PCR) Not detected (NOT DETECT) 01/17/22 00:55 SARS-CoV-2 (PCR) Not detected (NOT DETECT) 01/17/22 00:55 Critical Care Time Critical Care Time: Critical Care Time: Yes Total Critical Care Time: 45 Attestation: This case had a high probability of a clinically significant, sudden, or life threatening deterioration of this patient's condition which required my full and direct attention, intervention and personal management. Time does not include procedures such as central line placement. Discharge Plan Discharge Patient Disposition: Admitted As Inpatient Admit Provider: Jarvis Cormier Clinical Impression: Acute kidney injury superimposed on CKD, Nausea vomiting and diarrhea, VT (ventricular tachycardia), Shock Condition: Stable Coding Level of Care Code ED Property Management Specialist for Duarte Molina
--- NOTE | 2022-01-18 12:07 | PC.CHAP ---
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 check cashier visit [] Patient/Family/Request visit [] Outpatient visit [] Follow-up visit [] Physician referral [] Code/Alert [x] Routine visit [] Staff referral [] Actively dying [] Patient sleeping [] Family support [] [] Out of room [] Palliative care [] [] Receiving care in room [] Pre-surgical visit [] Trauma [] Long length of stay [x] ICU visit [] Other: Relational/Emotional Strength [] Patient feels connected with others/family/visitors/staff [] Distress [] Loneliness/isolation [] Abandonment Spirituality of Patient [] Person of Minoo [] Attends Lutheran of their Minoo [] Believes in Prayer [] Reads Bible or Christian materials [] There are Spiritual issues to be addressed Laminator Interventions [x] Prayer [] Active listening [] Non-anxious presence [] Spiritual/emotional support [] Crisis/trauma care [] Spiritual counseling [] Bereavement support [] Provided bereavement packet [] Provided Bible/devotional materials [] Provided toy/stuffed animal, coloring book to patient or family member [] Provided Communion [] Anointing/[place] [] Salvation [] Completed spiritual assessment [] Other: Impact on Illness or Injury [] Angry [] Fearful [] Anxious [] Often cries [] Exhaustion [] Unable to work [] Unable to attend evangelical [] Unable to walk/stand [] Unable to read [] Unable to drive [] Unable to eat/drink [] Unable to sleep [] Unable to be with family [] Patient intubated [] Other: Summary Time spent with patient
[2022-01-18 14:50] LABS: Glucose Point of Care 252 mg/dL (70-110)
[2022-01-18] MEDS: pregabalin 75 mg Capsule 150 MG PO (17:07)
[2022-01-18] MEDS: magnesium oxide 400 mg tablet PO (17:07)
[2022-01-18 20:25] LABS: Glucose Point of Care 288 mg/dL (70-110)
[2022-01-18] MEDS: pramipexole 0.25 mg Tablet PO (20:28)
[2022-01-19] VITALS (77 sets, daily range): BP systolic 73–167; BP diastolic 43–132; PULSE 56–124; RESP 11–35; TEMP 36.6–36.7; O2SAT 81–100
[2022-01-19] MEDS: meropenem 500 MG in sodium chloride 0.9% (plus) 50 ML 100 MG IV ×2 (00:57→14:05)
[2022-01-19] MEDS: hydrocortisone 100 mg/2 mL SDV IVP (00:57)
[2022-01-19] MEDS: insulin lispro 100 unit/1 mL SUBCUT ×2 (01:53→09:42)
[2022-01-19] MEDS: pantoprazole 40 mg SDV IVP (01:53)
[2022-01-19 02:39] LABS: Basophils # 0.1 10^3/uL (0.0-0.1); Basophils % 0.3 %; Eosinophils # 0.1 10^3/uL (0.0-0.8); Eosinophils % 0.7 %; Hematocrit 33.9 % (37.0-47.0); Hemoglobin 10.1 g/dL (11.5-15.3); Lymphocytes # 1.1 10^3/uL (0.8-4.8); Lymphocytes % 7.2 %; Mean Corpuscular HGB Conc 29.8 g/dL (30.0-36.0); Mean Corpuscular Hemoglobin 22.5 pg (28.0-34.0); Mean Corpuscular Volume 75.7 fl (81-99); Mean Platelet Volume 9.7 fL (7.4-10.4); Monocytes # 1.3 10^3/uL (0.2-0.9); Monocytes % 8.7 %; Neutrophils # 12.46 10^3/uL (1.8-7.7); Neutrophils % 81.9 %; Nucleated Red Blood Cells % 0 %; Platelet Count 250 10^3/cmm (130-400); Red Blood Count 4.48 10^6/uL (4.1-5.3); Red Cell Distribution Width 17.9 % (12.1-15.1); White Blood Count 15.2 10^3/uL (4.0-10.0)
[2022-01-19 02:55] LABS: Alanine Aminotransferase 30 U/L (0-33); Albumin Level 2.9 g/dL (3.5-5.2); Alkaline Phosphatase 85 U/L (35-105); Anion Gap 14.2 (5-19); Aspartate Amino Transferase 22 U/L (0-32); Blood Urea Nitrogen 22 mg/dL (8-23); Calcium 8.9 mg/dL (8.5-10.5); Carbon Dioxide 24 mmol/L (22-29); Chloride 98 mmol/L (98-107); Glucose 133 mg/dL (65-115); Magnesium 1.8 mg/dL (1.7-2.3); Osmolality Calculated 277 mOsm/kg (285-295); Phosphorus 2.6 mg/dL (2.5-4.5); Potassium 5.2 mmol/L (3.5-5.1); Sodium 131 mmol/L (136-145); Total Bilirubin 0.3 mg/dL (0.15-1.2); Total Protein 4.9 g/dL (6.6-8.7)
[2022-01-19 04:43] LABS: Glucose Point of Care 142 mg/dL (70-110)
[2022-01-19] MEDS: levothyroxine 175 mcg Tablet PO (05:21)
[2022-01-19 09:37] LABS: Glucose Point of Care 183 mg/dL (70-110)
[2022-01-19] MEDS: apixaban 5 mg Tablet 2.5 MG PO ×2 (09:42→21:10)
[2022-01-19] MEDS: midodrine 5 mg TABLET 10 MG PO (09:42)
[2022-01-19] MEDS: pregabalin 75 mg Capsule 150 MG PO ×2 (09:42→17:25)
[2022-01-19] MEDS: magnesium oxide 400 mg tablet PO (09:42)
--- NOTE | 2022-01-19 10:28 | P.PN_ITS ---
Subjective Subjective: Start Bumex today to Transfer out of ICU Blood pressure has been stable Afebrile Leukocytosis improved Potassium 4.2 Creatinine 2.3 Vitals/I&O/Wt Last Vital Signs Temp 97.8 F 01/18/22 19:30 Pulse 87 01/19/22 08:00 Resp 16 01/19/22 08:00 BP 116/74 01/19/22 04:15 Pulse Ox 95 01/19/22 08:00 O2 Del Method 01/19/22 08:00 O2 Flow Rate 2 01/18/22 20:00 01/18/22 01/19/22 01/19/22 22:59 06:59 14:59 Intake Total 170 / 943.6 Output Total 175 / 175 250 / 250 Balance -175 / 598.6 170 / 768.6 -250 / -250 Weight last 48 hrs Weight 151.67 kg Weight 152.464 kg Physical Exam Narrative: Right-sided central line right IJ Patient is clinically euvolemic Close edema improved Awake and alert Currently on room Abdomen soft Bilateral breast without adventitious rhonchi or crackles Pleasant and cooperative Urinary Catheter Management: Zurita: Cath Placed During This Visit: yes Reason for Continuing Indwelling Catheter: Accurate Measurement of Urinary Ou tput in Critically Ill Patients Urinary Catheter Date of Insertion: 01/16/22 Urinary Catheter Time of Insertion: 22:53 Data : 01/19/22 02:22 01/19/22 02:22 Micro: Microbiology 01/17/22 09:53 Enteric Pathogens (PCR) - Final Stool - Stool Aspirate C.difficile Toxin B Gene (PCR) - Final 01/16/22 22:44 Urine Culture - Preliminary Urine,Clean Catch Yeast species A&P Assessment and plan (1) Hypophosphatemia: (2) Hypomagnesemia: (3) Adrenal insufficiency: (4) Nausea vomiting and diarrhea: (5) Metabolic acidosis: (6) Acute kidney injury superimposed on CKD: (7) Shock: (8) Chronic hyponatremia: (9) Hx of atrial fibrillation, no current medication: (10) Obesity, morbid, BMI 50 or higher: (11) UTI (urinary tract infection): (12) Anemia: (13) Colitis: Plan Adrenal insufficiency due to UTI and colitis Cultures negative Continue meropenem for 1 more day Leukocytosis improved Afebrile Cultures negative Diastolic CHF without acute exacerbation I will start her Bumex Acute on chronic kidney disease likely cardiorenal Continue Bumex today her creatinine improved with diuresis on day 1 Hyperkalemia: I will give her 1 dose of Kayexalate A. fib continue Eliquis Hypothyroid continue levothyroxine Constipation: Relieved Septic shock: Resolved Yeast infection and urine finished fluconazole regimen Metabolic acidosis improved Awaiting skilled nursing placement Attestations Medical Necessity Statement*: Transferred out of ICU Time Spent in Patient Care: 30 Coding Level of Care Code Acute Planer Off Bearer for Chg Fwd Diagnoses Hypophosphatemia E83.39 Hypomagnesemia E83.42 Adrenal insufficiency E27.40 Nausea vomiting and diarrhea R11.2; R19.7 Metabolic acidosis E87.20 Acute kidney injury superimposed on CKD N17.9; N18.9 Shock R57.9 Chronic hyponatremia E87.1 Hx of atrial fibrillation, no current medication Z86.79 Obesity, morbid, BMI 50 or higher E66.01 UTI (urinary tract infection) N39.0 Anemia D64.9 Colitis K52.9
[2022-01-19] MEDS: sodium polystyrene sulfonate 15 gm/60 mL Btl PO (12:05)
--- NOTE | 2022-01-19 12:44 | PC.CHAP ---
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 gas distribution plant operator visit [] Patient/Family/Request visit [] Outpatient visit [] Follow-up visit [] Physician referral [] Code/Alert [x] Routine visit [] Staff referral [] Actively dying [] Patient sleeping [x] Family support [] [] Out of room [] Palliative care [] [] Receiving care in room [] Pre-surgical visit [] Trauma [] Long length of stay [x] ICU visit [x] Other: setting up in chair... being moved to Med Surg..... Relational/Emotional Strength [] Patient feels connected with others/family/visitors/staff [] Distress [] Loneliness/isolation [] Abandonment Spirituality of Patient [] Person of Minoo [] Attends Tenriism of their Minoo [] Believes in Prayer [] Reads Bible or Alevism materials [] There are Spiritual issues to be addressed Grapple Yarder Operator Interventions [x] Prayer [] Active listening [] Non-anxious presence [] Spiritual/emotional support [] Crisis/trauma care [] Spiritual counseling [] Bereavement support [] Provided bereavement packet [] Provided Bible/devotional materials [] Provided toy/stuffed animal, coloring book to patient or family member [] Provided Communion [] Anointing/[place] [] Salvation [x] Completed spiritual assessment [] Other: Impact on Illness or Injury [] Angry [] Fearful [] Anxious [] Often cries [] Exhaustion [] Unable to work [] Unable to attend faith [] Unable to walk/stand [] Unable to read [] Unable to drive [] Unable to eat/drink [] Unable to sleep [] Unable to be with family [] Patient intubated [] Other: Summary Time spent with patient
[2022-01-19 14:04] LABS: Glucose Point of Care 139 mg/dL (70-110)
[2022-01-19] MEDS: bumetanide 1 mg Tablet 2 MG PO ×2 (14:05→21:10)
[2022-01-19] MEDS: hydrocortisone 10 mg Tablet 15 MG PO (17:26)
--- NOTE | 2022-01-19 18:47 | PC.NURSE ---
PT HAS HAD AN UNEVENTFUL SHIFT. PT HAS HAD NO COMPLAINTS OF PAIN. PT HAS BEEN UP TO CHAIR ALL DAY. PT RECEIVED A BED BATH TODAY. PT HAS NO REQUESTS AT THIS TIME. WILL CONTINUE TO MONITOR.
[2022-01-19 19:43] LABS: Glucose Point of Care 112 mg/dL (70-110)
[2022-01-19] MEDS: pramipexole 0.25 mg Tablet PO (21:10)
[2022-01-20] VITALS (19 sets, daily range): BP systolic 115–128; BP diastolic 73–80; PULSE 68–92; RESP 15–40; TEMP 36.7–37; O2SAT 90–98
[2022-01-20] MEDS: meropenem 500 MG in sodium chloride 0.9% (plus) 50 ML 100 MG IV ×2 (01:49→13:35)
[2022-01-20] MEDS: insulin lispro 100 unit/1 mL SUBCUT ×3 (01:49→21:05)
[2022-01-20 02:02] LABS: Glucose Point of Care 144 mg/dL (70-110)
[2022-01-20 02:50] LABS: Basophils # 0.1 10^3/uL (0.0-0.1); Basophils % 0.7 %; Eosinophils # 0.3 10^3/uL (0.0-0.8); Eosinophils % 2.9 %; Hemoglobin 9.9 g/dL (11.5-15.3); Lymphocytes # 1.9 10^3/uL (0.8-4.8); Lymphocytes % 19.4 %; Mean Corpuscular Hemoglobin 22.9 pg (28.0-34.0); Mean Corpuscular Volume 76.4 fl (81-99); Mean Platelet Volume 9.9 fL (7.4-10.4); Monocytes # 1.1 10^3/uL (0.2-0.9); Monocytes % 11.5 %; Neutrophils # 6.18 10^3/uL (1.8-7.7); Nucleated Red Blood Cells % 0 %; Platelet Count 220 10^3/cmm (130-400); Red Blood Count 4.32 10^6/uL (4.1-5.3); Red Cell Distribution Width 17.8 % (12.1-15.1); White Blood Count 9.5 10^3/uL (4.0-10.0)
[2022-01-20 04:07] LABS: Alanine Aminotransferase 25 U/L (0-33); Albumin Level 2.9 g/dL (3.5-5.2); Alkaline Phosphatase 83 U/L (35-105); Anion Gap 14.5 (5-19); Aspartate Amino Transferase 17 U/L (0-32); Blood Urea Nitrogen 23 mg/dL (8-23); Calcium 8.5 mg/dL (8.5-10.5); Carbon Dioxide 27 mmol/L (22-29); Chloride 96 mmol/L (98-107); Globulin 2.4 g/dL (1.3-4.6); Glomerular Filtration Rate 27.9 mL/min (90-130); Glucose 130 mg/dL (65-115); Osmolality Calculated 283 mOsm/kg (285-295); Phosphorus 3.5 mg/dL (2.5-4.5); Potassium 3.5 mmol/L (3.5-5.1); Sodium 134 mmol/L (136-145); Total Bilirubin 0.3 mg/dL (0.15-1.2); Total Protein 5.3 g/dL (6.6-8.7)
[2022-01-20] MEDS: levothyroxine 175 mcg Tablet PO (06:11)
[2022-01-20] MEDS: bumetanide 1 mg Tablet 2 MG PO ×3 (06:11→21:04)
[2022-01-20 08:15] LABS: Glucose Point of Care 122 mg/dL (70-110)
[2022-01-20] MEDS: hydrocortisone 10 mg Tablet 30 MG PO (08:23)
[2022-01-20] MEDS: pregabalin 75 mg Capsule 150 MG PO ×2 (08:23→17:46)
[2022-01-20] MEDS: apixaban 5 mg Tablet 2.5 MG PO ×2 (08:24→20:54)
--- NOTE | 2022-01-20 10:20 | PC.SOCIAL ---
IMM update IMM updated with patient. Verbalized an understanding. Copy Pg 2 provided. Initialled, dated, timed, and placed in chart.
--- NOTE | 2022-01-20 10:29 | P.PN_ITS ---
Subjective Subjective: Patient is doing well Good urine output with Bumex Creatinine improved Plan to discharge her to home on home health versus tomorrow Off Levophed Reduce midodrine dose to 5 mg 3 times a day Patient stating she had 4 bowel movements overnight Vitals/I&O/Wt Last Vital Signs Temp 98.6 F 01/20/22 07:54 Pulse 73 01/20/22 09:45 Resp 18 01/20/22 09:45 BP 115/80 01/20/22 07:54 Pulse Ox 95 01/20/22 09:45 O2 Del Method 01/20/22 09:45 O2 Flow Rate 2 01/20/22 03:11 01/19/22 01/20/22 01/20/22 22:59 06:59 14:59 Intake Total 290 / 839.469 530 / 1369.469 Output Total 400 / 650 1999 / 2650 Balance -110 / 189.469 -1470 / -1280.531 Weight last 48 hrs Weight 153.031 kg Weight 151.67 kg Physical Exam Narrative: Clinically looks euvolemic Abdomen soft Bilateral breath sound without adventitious rhonchi or crackles Currently on room air S1, S2 variable Awake and alert nonfocal neuro exam In good spirits Left lower extremity has venous stasis dermatitis with erythema Urinary Catheter Management: Zurita: Cath Placed During This Visit: yes Reason for Continuing Indwelling Catheter: Accurate Measurement of Urinary Output in Critically Ill Patients Urinary Catheter Date of Insertion: 01/16/22 Urinary Catheter Time of Insertion: 22:53 Data : 01/20/22 02:37 01/20/22 02:37 A&P Assessment and plan (1) Colitis: (2) UTI (urinary tract infection): (3) Hypophosphatemia: (4) Hypomagnesemia: (5) Adrenal insufficiency: Plan Oral thrush, start nystatin Off Levophed Strep plan to discharge her tomorrow with home health services Afebrile Electrolytes replenished Good output with Bumex CHF: Well compensated Colitis: Resolving UTI: Cultures negative Full code Consistent carb diet Attestations Medical Necessity Statement*: Discharge tomorrow Time Spent in Patient Care: 30 Coding Level of Care Code Acute Operations Manager/Coordinator for [facility] Fwd Diagnoses Colitis K52.9 UTI (urinary tract infection) N39.0 Hypophosphatemia E83.39 Hypomagnesemia E83.42 Adrenal insufficiency E27.40
--- NOTE | 2022-01-20 12:05 | PC.CHAP ---
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 molecular biologist visit [] Patient/Family/Request visit [] Outpatient visit [] Follow-up visit [] Physician referral [] Code/Alert [x] Routine visit [] Staff referral [] Actively dying [] Patient sleeping [] Family support [] [] Out of room [] Palliative care [] [] Receiving care in room [] Pre-surgical visit [] Trauma [] Long length of stay [x] ICU visit [] Other: Relational/Emotional Strength [x] Patient feels connected with others/family/visitors/staff [] Distress [] Loneliness/isolation [] Abandonment Spirituality of Patient [x] Person of Minoo [x] Attends Jewish of their Minoo [x] Believes in Prayer [] Reads Bible or Uatsdin materials [] There are Spiritual issues to be addressed Digital Photographer Interventions [x] Prayer [] Active listening [] Non-anxious presence [] Spiritual/emotional support [] Crisis/trauma care [] Spiritual counseling [] Bereavement support [] Provided bereavement packet [] Provided Bible/devotional materials [] Provided toy/stuffed animal, coloring book to patient or family member [] Provided Communion [] Anointing/[place] [] Salvation [x] Completed spiritual assessment [] Other: Impact on Illness or Injury [] Angry [] Fearful [] Anxious [] Often cries [] Exhaustion [] Unable to work [] Unable to attend shinto [] Unable to walk/stand [] Unable to read [] Unable to drive [] Unable to eat/drink [] Unable to sleep [] Unable to be with family [] Patient intubated [] Other: Summary Time spent with patient
[2022-01-20] MEDS: midodrine 5 mg TABLET PO ×2 (14:56→20:54)
[2022-01-20 14:57] LABS: Glucose Point of Care 148 mg/dL (70-110)
[2022-01-20] MEDS: nystatin 100,000 unit/mL UDC 5 mL 500000 UNIT PO ×2 (17:46→20:54)
[2022-01-20] MEDS: hydrocortisone 10 mg Tablet 15 MG PO (17:46)
[2022-01-20] MEDS: pramipexole 0.25 mg Tablet PO (20:54)
[2022-01-20 21:25] LABS: Glucose Point of Care 151 mg/dL (70-110)
[2022-01-21] VITALS (18 sets, daily range): BP systolic 120–144; BP diastolic 71–88; PULSE 64–85; RESP 12–24; TEMP 36.5–36.8; O2SAT 88–100
[2022-01-21] MEDS: meropenem 500 MG in sodium chloride 0.9% (plus) 50 ML 100 MG IV (00:45)
[2022-01-21 03:46] LABS: Glucose Point of Care 116 mg/dL (70-110)
[2022-01-21] MEDS: levothyroxine 175 mcg Tablet PO (05:41)
[2022-01-21] MEDS: bumetanide 1 mg Tablet 2 MG PO ×3 (05:41→21:07)
[2022-01-21 06:24] LABS: Glucose Point of Care 91 mg/dL (70-110)
[2022-01-21] MEDS: apixaban 5 mg Tablet 2.5 MG PO ×2 (08:22→21:08)
[2022-01-21] MEDS: pregabalin 75 mg Capsule 150 MG PO ×2 (08:22→17:00)
[2022-01-21] MEDS: hydrocortisone 10 mg Tablet 30 MG PO (08:22)
[2022-01-21] MEDS: nystatin 100,000 unit/mL UDC 5 mL 500000 UNIT PO ×4 (08:23→21:07)
[2022-01-21] MEDS: midodrine 5 mg TABLET PO (08:23)
[2022-01-21 09:37] LABS: Glucose Point of Care 123 mg/dL (70-110)
--- NOTE | 2022-01-21 10:55 | P.PN_ITS ---
Subjective Subjective: Patient is stating that she does not feel like going home she is feeling fatigued and lethargic and does not feel like getting out of bed as well She is skeptical about going home later today as well stating that she would like to go morning the morning time 1 bowel movement so far in last 24 hours no more diarrheal episodes Vitals/I&O/Wt Last Vital Signs Temp 98.1 F 01/21/22 08:00 Pulse 77 01/21/22 10:09 Resp 20 H 01/21/22 10:09 BP 120/80 01/21/22 08:00 Pulse Ox 97 01/21/22 10:09 O2 Del Method 01/21/22 10:09 O2 Flow Rate 2 01/21/22 04:00 01/20/22 01/21/22 01/21/22 22:59 06:59 14:59 Intake Total 360 / 650 444 / 1094 Output Total 800 / 3150 2650 / 5800 900 / 900 Balance -440 / -2500 -2206 / -4706 -900 / -900 Weight last 48 hrs Weight 153.484 kg Weight 153.031 kg Physical Exam Narrative: Patient is awake and alert Currently euvolemic Lower extremity no significant edema Awake and alert Currently on room air Variable S1-S2 Blood pressure is stable Nonfocal neuro exam Abdomen soft however distended Urinary Catheter Management: Zurita: Cath Placed During This Visit: yes, but has since been removed by the nurse Reason for Continuing Indwelling Catheter: Decision to DC Catheter Urinary Catheter Date of Insertion: 01/16/22 Urinary Catheter Time of Insertion: 22:53 Date Urinary Catheter Removed: 01/21/22 Time Urinary Catheter Discontinued: 09:08 Data : 01/20/22 02:37 01/20/22 02:37 Micro: Microbiology 01/16/22 22:44 Urine Culture - Final Urine,Clean Catch Kathleen tropicalis A&P Assessment and plan (1) Colitis: (2) UTI (urinary tract infection): (3) Shock: (4) Adrenal insufficiency: Plan Patient is back on her home dose of steroids Plan to discharge her home with home health services tomorrow Clinically she is stable Her weakness and fatigue is likely related to her comorbid conditions and adrenal insufficiency UTI showing yeast Kathleen tropicalis no signs of fungemia I will give her caspofungin loading dose Discontinue meropenem I would also like to see her response off midodrine Continue bowel regimen I have counseled patient to cut back on her Lyrica as well Continue Eliquis Bumex, no need of labs tomorrow Attestations Medical Necessity Statement*: Discharge tomorrow Time Spent in Patient Care: 20 Coding Level of Care Code Acute Administrative Support Clerk for Chg Fwd Diagnoses Colitis K52.9 UTI (urinary tract infection) N39.0 Shock R57.9 Adrenal insufficiency E27.40
--- NOTE | 2022-01-21 11:03 | PC.CHAP ---
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 metal machinist visit [] Patient/Family/Request visit [] Outpatient visit [] Follow-up visit [] Physician referral [] Code/Alert [x] Routine visit [] Staff referral [] Actively dying [] Patient sleeping [x] Family support [] [] Out of room [] Palliative care [] [] Receiving care in room [] Pre-surgical visit [] Trauma [] Long length of stay [] ICU visit [] Other: Relational/Emotional Strength [x] Patient feels connected with others/family/visitors/staff [] Distress [] Loneliness/isolation [] Abandonment Spirituality of Patient [x] Person of [place] [] Attends Congregational of their [place] [x] Believes in Prayer [] Reads Bible or Judaism materials [] There are Spiritual issues to be addressed [employer]ian [employer] Interventions [x] Prayer [] Active listening [] Non-anxious presence [] Spiritual/emotional support [] Crisis/trauma care [] Spiritual counseling [] Bereavement support [] Provided bereavement packet [] Provided Bible/devotional materials [] Provided toy/stuffed animal, coloring book to patient or family member [] Provided Communion [] Anointing/[place] [] Salvation [x] Completed spiritual assessment [] Other: Impact on Illness or Injury [] Angry [] Fearful [] Anxious [] Often cries [] Exhaustion [] Unable to work [] Unable to attend congregation [] Unable to walk/stand [] Unable to read [] Unable to drive [] Unable to eat/drink [] Unable to sleep [] Unable to be with family [] Patient intubated [] Other: Summary Time spent with patient 10 min
[2022-01-21 16:36] LABS: Glucose Point of Care 183 mg/dL (70-110)
[2022-01-21] MEDS: insulin lispro 100 unit/1 mL SUBCUT (16:59)
[2022-01-21] MEDS: hydrocortisone 10 mg Tablet 15 MG PO (17:00)
[2022-01-21] MEDS: pramipexole 0.25 mg Tablet PO (21:08)
[2022-01-21 21:19] LABS: Glucose Point of Care 133 mg/dL (70-110)
[2022-01-22 00:02] VITALS: BP 118/71; PULSE 77; RESP 19; TEMP 36.8; O2SAT 94
[2022-01-22 01:30] LABS: Glucose Point of Care 172 mg/dL (70-110)
[2022-01-22] MEDS: insulin lispro 100 unit/1 mL SUBCUT (01:35)
[2022-01-22 04:00] VITALS: BP 122/77; PULSE 76; RESP 20; TEMP 36.6; O2SAT 94
[2022-01-22] MEDS: levothyroxine 175 mcg Tablet PO (05:19)
[2022-01-22] MEDS: bumetanide 1 mg Tablet 2 MG PO (05:19)
[2022-01-22] MEDS: lidocaine 2% viscous 1.667 ML, diphenhydrAMINE oral liq 4.165 MG, aluminum-mag hydrox-s... MUCOUS MEM ×2 (05:26→09:42)
--- NOTE | 2022-01-22 05:40 | PC.NURSE ---
Pt referred to physician for review of request to receive magic mouthwash for mouth pain d/t thrush, and to have her labs rechecked d/t hypokalemia. NO received and noted for 1) Magic Mouthwash 5 ml swish and spit q4h PRN 2) K+ level. Pharmacy and lab notified of new orders.
[2022-01-22 06:00] VITALS: PULSE 78
[2022-01-22 07:13] LABS: Glucose Point of Care 103 mg/dL (70-110)
[2022-01-22 07:50] LABS: Potassium 2.9 mmol/L (3.5-5.1)
[2022-01-22 07:57] VITALS: PULSE 66; RESP 18; O2SAT 93
[2022-01-22 08:00] VITALS: BP 126/81; PULSE 75; RESP 16; TEMP 36.7; O2SAT 95
--- NOTE | 2022-01-22 08:31 | PM.DCS ---
Discharge Providers Date of Admission: 01/17/22 01:03 Date of Discharge: January 22, 2022 Attending Provider at Admission: Jarvis Cormier Attending Provider at Discharge: Durga Hernandez MD Primary Care Provider: Crys Glover NP Diagnoses at Discharge Discharge Diagnosis (1) Colitis: Status: Acute (2) UTI (urinary tract infection): Status: Acute (3) Shock: Status: Acute (4) Adrenal insufficiency: Status: Acute Reason for Visit Reason for Visit: SOB Hospital Course Hospital Course 71-year-old female who presented to the hospital after sustaining a fall at home after recent discharge from the hospital, she was diagnosed with addisonian crisis required stress dose steroids and Levophed which was gradually weaned off, source of infection was UTI, colitis. Stool cultures negative Urine culture positive for yeast Kathleen tropicalis she did get fluconazole and got loading dose of micafungin and maintenance dose on 01/21, decision was made to discharge her home on fluconazole 10-day regimen along nystatin for oral thrush Patient does have chronic kidney disease her creatinine is seem to be around baseline with Bumex 3 times a day regimen. She does take potassium along with Bumex. I was able to wean off midodrine as well and continue her home stress dose steroid regimen of hydrocortisone. She was declined by the [place] [facility] that is why she has agreed to go home with home health services Physical Exam Urinary Catheter Management: Zurita: Cath Placed During This Visit: yes, but has since been removed by the nurse Reason for Continuing Indwelling Catheter: Decision to DC Catheter Urinary Catheter Date of Insertion: 01/16/22 Urinary Catheter Time of Insertion: 22:53 Date Urinary Catheter Removed: 01/21/22 Time Urinary Catheter Discontinued: 09:08 Discharge Data Studies Completed and Pending Completed Studies During Hospitalization Category Date Time Status CT kidney stone [id number] Stat Cat Scan 01/16/22 23:41 Completed XR chest 1V portable [id number] Stat Exams 01/16/22 21:58 Completed XR foot LT 2V [id number] Routine Exams 01/17/22 09:26 Completed Radiology Impressions Chest X-Ray 01/16/22 21:58 IMPRESSION: 1. Accentuated cardiac silhouette size and vascularity. See discussion above. 2. No obvious acute consolidation. Suboptimal lung base assessment. Followup including lateral view may be obtained if clinically indicated. Abdomen/Pelvis CT 01/16/22 23:41 IMPRESSION: 1. The study is limited by patient body habitus. 2. Decreased hepatic density is noted, consistent with hepatic steatosis. 3. Mural thickening of the descending and sigmoid colon, with mild pericolonic inflammation, consistent with nonspecific colitis. This is new when compared to 01/06/2022. 4. No other interval change noted when compared to the previous study. Foot X-Ray 01/17/22 09:26 IMPRESSION: 1. No acute fracture or dislocation. Laboratory Results WBC 9.5 10^3/uL (4.0-10.0) 01/20/22 02:37 RBC 4.32 10^6/uL (4.1-5.3) 01/20/22 02:37 Hgb 9.9 g/dL (11.5-15.3) L 01/20/22 02:37 Hct 33.0 % (37.0-47.0) L 01/20/22 02:37 MCV 76.4 fl (81-99) L 01/20/22 02:37 MCH 22.9 pg (28.0-34.0) L 01/20/22 02:37 MCHC 30.0 g/dL (30.0-36.0) 01/20/22 02:37 RDW 17.8 % (12.1-15.1) H 01/20/22 02:37 Plt Count 220 10^3/cmm (130-400) 01/20/22 02:37 MPV 9.9 fL (7.4-10.4) 01/20/22 02:37 Neut % (Auto) 65.0 % 01/20/22 02:37 Lymph % (Auto) 19.4 % 01/20/22 02:37 [place] % (Auto) 11.5 % 01/20/22 02:37 Eos % (Auto) 2.9 % 01/20/22 02:37 Baso % (Auto) 0.7 % 01/20/22 02:37 Neut # (Auto) 6.18 10^3/uL (1.8-7.7) 01/20/22 02:37 Lymph # (Auto) 1.9 10^3/uL (0.8-4.8) 01/20/22 02:37 [place] # (Auto) 1.1 10^3/uL (0.2-0.9) H 01/20/22 02:37 Eos # (Auto) 0.3 10^3/uL (0.0-0.8) 01/20/22 02:37 Baso # (Auto) 0.1 10^3/uL (0.0-0.1) 01/20/22 02:37 Nucleated RBC % (auto) 0 % 01/20/22 02:37 Nucleated RBCs # 0.0 /100WBC 01/20/22 02:37 PT 18.70 SECONDS (12.1-14.9) H 01/16/22 22:00 INR 1.52 (0.8-1.2) H 01/16/22 22:00 APTT 69.5 SECONDS (23.9-36.7) H 01/18/22 02:24 Sodium 134 mmol/L (136-145) L 01/20/22 02:37 Potassium 2.9 mmol/L (3.5-5.1) L 01/22/22 07:00 Chloride 96 mmol/L (98-107) L 01/20/22 02:37 Carbon Dioxide 27 mmol/L (22-29) 01/20/22 02:37 Anion Gap 14.5 (5-19) 01/20/22 02:37 BUN 23 mg/dL (8-23) 01/20/22 02:37 Creatinine 1.8 mg/dL (0.5-0.9) H 01/20/22 02:37 GFR Calculation 27.9 mL/min (90-130) L 01/20/22 02:37 Glucose 130 mg/dL (65-115) H 01/20/22 02:37 POC Glucose 103 mg/dL (70-110) 01/22/22 07:02 Calculated Osmolality 283 mOsm/kg (285-295) L 01/20/22 02:37 Lactic Acid 1.3 mmol/L (0.5-2.2) 01/17/22 08:40 Lactate 1.5 mmol/L (0.5-2.2) 01/16/22 00:24 Calcium 8.5 mg/dL (8.5-10.5) 01/20/22 02:37 Phosphorus 3.5 mg/dL (2.5-4.5) 01/20/22 02:37 Magnesium 1.8 mg/dL (1.7-2.3) 01/19/22 02:22 Total Bilirubin 0.3 mg/dL (0.15-1.2) 01/20/22 02:37 AST 17 U/L (0-32) 01/20/22 02:37 ALT 25 U/L (0-33) 01/20/22 02:37 Alkaline Phosphatase 83 U/L (35-105) 01/20/22 02:37 Creatine Kinase 143 U/L (26-192) 01/16/22 22:00 Troponin T Baseline 40 ng/L (0-10) H 01/16/22 22:00 Troponin T 120 Minute 49.96 ng/L (0-10) H 01/17/22 00:24 Delta Troponin T 9.96 ABS# (0-10) 01/17/22 00:24 Troponin T Hi Sens 6Hr 51.97 ng/L (0-10) H 01/17/22 03:32 Troponin T Hi Sens 6Hr Delta 11.97 ng/L (0-12) 01/17/22 03:32 NT-Pro-B Natriuret Pep 262 pg/mL (0-125) H 01/16/22 22:00 Total Protein 5.3 g/dL (6.6-8.7) L 01/20/22 02:37 Albumin 2.9 g/dL (3.5-5.2) L 01/20/22 02:37 Globulin 2.4 g/dL (1.3-4.6) 01/20/22 02:37 Urine Color Yellow (Yellow) 01/16/22 22:44 Urine Appearance Hazy (CLEAR) A 01/16/22 22:44 Urine pH 5 (5-7) 01/16/22 22:44 Ur Specific [place] 1.025 (1.005-1.030) 01/16/22 22:44 Urine Protein 2+ (Negative) H 01/16/22 22:44 Urine Glucose (UA) Trace (Normal) H 01/16/22 22:44 Urine Ketones 1+ (Negative) H 01/16/22 22:44 Urine Blood 2+ (Negative) H 01/16/22 22:44 Urine Nitrate Negative (Negative) 01/16/22 22:44 Urine Bilirubin 1+ (Negative) H 01/16/22 22:44 Urine Urobilinogen 4 mg/dL (Negative) H 01/16/22 22:44 Ur Leukocyte Esterase 2+ (Negative) H 01/16/22 22:44 Urine RBC 15-25 /hpf (0-2) H 01/16/22 22:44 Urine WBC 80-100 /hpf (0-5) H 01/16/22 22:44 Ur Squamous Epith Cells 5-10 /hpf (0-5) H 01/16/22 22:44 Ur Transition Epith Cell 5-10 /hpf 01/16/22 22:44 Amorphous Sediment Not Reportable 01/16/22 22:44 Urine Bacteria 1+ /hpf (NONE) H 01/16/22 22:44 Urine Yeast 1+ /hpf H 01/16/22 22:44 Serum Ketones Negative (Negative) 01/17/22 13:04 Coronavirus 229E (PCR) Not detected (NOT DETECT) 01/17/22 00:55 SARS-CoV-2 (PCR) Not detected (NOT DETECT) 01/17/22 00:55 Vitals Last Vital Signs Temp 97.9 F 01/22/22 04:00 Pulse 66 01/22/22 07:57 Resp 18 01/22/22 07:57 BP 122/77 01/22/22 04:00 Pulse Ox 93 01/22/22 07:57 O2 Del Method 01/22/22 07:57 O2 Flow Rate 2 01/22/22 07:43 Discharge Plan Discharge Patient Disposition: Home Condition: Stable Prescriptions: New fluconazole 100 mg tablet 100 mg PO DAILY 10 Days Qty: 10 0RF nystatin 100,000 unit/mL suspension 3 ml buccal 5XD 10 Days Qty: 150 0RF Rx Instructions: administer 1/2 of dose in each side of the mouth potassium chloride 20 mEq tablet,ER particles/crystals 20 meq PO BID 4 Days Qty: 8 0RF magnesium 200 mg tablet 200 mg PO DAILY Qty: 10 0RF Continued epinephrine [EpiPen 2-Nabeel] 0.3 mg/0.3 mL auto-injector 0.3 mg IM Q10M PRN (Reason: anaphylaxis) Qty: 2 3RF Rx Instructions: for 3 doses silver sulfadiazine [Silvadene] 1 % cream 1 applic topical BID Qty: 50 2RF Rx Instructions: apply a 1.5 mm thickness (DME) Pharmacist Choice Strip See Rx Instructions .Route Qty: 50 2RF Rx Instructions: AC and HS (DME) blood-glucose meter,continuous Misc See Rx Instructions .Route Qty: 1 0RF Rx Instructions: As directed one meter with all necessary supplies pregabalin [Lyrica] 150 mg capsule 150 mg PO BID 90 Days Qty: 180 0RF (DME) cpap mask and supplies See Rx Instructions .Route .MEDSUPPLY Qty: 1 0RF Rx Instructions: As directed levothyroxine 175 mcg tablet 175 mcg PO QAM 90 Days Qty: 90 1RF (DME) diabetic supplies, miscellan. Misc See Rx Instructions .Route Qty: 1 0RF Rx Instructions: As directed polyethylene glycol 3350 [Miralax] 17 gram/dose Powder 17 g PO DAILY PRN (Reason: Constipation) Eliquis 5 mg Tablet 5 mg PO Q12H 30 Days Qty: 60 0RF spironolactone 25 mg Tablet 12.5 mg PO DAILY 30 Days Qty: 30 0RF hydrocortisone 10 mg Tablet 15 mg PO QPM 30 Days Qty: 45 0RF hydrocortisone 10 mg Tablet 30 mg PO DAILY 30 Days Qty: 90 0RF hydroxyzine pamoate 25 mg Capsule 25 mg PO BID PRN (Reason: Anxiety) 15 Days Qty: 30 0RF magnesium L-lactate [Magtab] 84 mg Tablet Extended Release 84 mg PO DAILY 30 Days Qty: 30 0RF meclizine 25 mg Tablet 25 mg PO TID PRN (Reason: Dizziness) 15 Days Qty: 45 0RF bumetanide 2 mg tablet 2 mg PO Q8H Qty: 30 0RF potassium chloride [Klor-Con M20] 20 mEq Tablet,Er Particles/Crystals 40 meq PO Q8H 30 Days Qty: 240 0RF Rx Instructions: with bumex therapy pramipexole [Mirapex] 0.5 mg tablet 1 mg PO BEDTIME pantoprazole [Protonix] 40 mg tablet,delayed release (DR/EC) 40 mg PO QAM Jardiance 10 mg tablet 10 mg PO QAM Ozempic 0.25 mg or 0.5 mg(2 mg/1.5 mL) pen injector 1 mg SUBCUT Q7D Rx Instructions: on monday Discharge Orders: Discharge Order (Routine); Ordered 01/22/22 Ordered By: Durga Hernandez Referrals: Crys Glover NP [Primary Care Provider] - 1 week (Please call primary care provider Monday morning to schedule a hospital follow-up appointment within 1 week. ) Patient Instructions: Nystatin (By mouth), Fluconazole (By mouth), Heart Failure (GEN), Urinary Tract Infection in Women (GEN), Colitis (ED), Opioid Safety Discharge Attestations Time Spent in Discharge Care*: less than 30 min Quality Metrics Clinical Quality Measures [ No reported AMI, CVA or VTE this stay] Coding Level of Care Code Acute Chg FW DC note Diagnoses Colitis K52.9 UTI (urinary tract infection) N39.0 Shock R57.9 Adrenal insufficiency E27.40
[2022-01-22] MEDS: pregabalin 75 mg Capsule 150 MG PO (09:37)
[2022-01-22] MEDS: apixaban 5 mg Tablet 2.5 MG PO (09:38)
[2022-01-22] MEDS: hydrocortisone 10 mg Tablet 30 MG PO (09:40)
[2022-01-22] MEDS: nystatin 100,000 unit/mL UDC 5 mL 500000 UNIT PO (09:43)
--- NOTE | 2022-01-22 09:47 | PC.NURSE ---
Dr. Hernandez notified patient refused IV postassium. Verbal order to give 40 mEq PO one time.
[2022-01-22] MEDS: potassium chloride ER 20 mEq Tablet 40 MEQ PO (09:58)
--- NOTE | 2022-01-22 11:02 | PC.NURSE ---
Discussed discharge follow up appointments (to call on Monday), new medications and medications to continue. Verbalized understanding.
[2022-01-22 11:03] VITALS: BP 126/81; PULSE 75; RESP 16; TEMP 36.7; O2SAT 95
== END 2022-01-22 11:04 | disposition home health service (06) | DRG 871 ==
LOC: ER 22:29 → ICU 01-17 01:04 → MEDSURG 01-21 05:03
PROVIDERS: Admitting Provider Internal Medicine; Emergency Provider Emergency Medicine; PCP Nurse Practitioner Family; Visit Provider Internal Medicine
DX: A41.9 Sepsis, unspecified organism (principal); I50.33 Acute on chronic diastolic (congestive) heart failure; R65.21 Severe sepsis with septic shock; I13.0 Hypertensive heart and chronic kidney disease with heart failure and stage 1 through stage 4 chronic kidney disease, or unspecified chronic kidney disease; E23.0 Hypopituitarism; E27.2 Addisonian crisis; Z68.43 Body mass index [BMI] 50.0-59.9, adult; N17.9 Acute kidney failure, unspecified; B37.0 Candidal stomatitis; E87.1 Hypo-osmolality and hyponatremia; I47.20 Ventricular tachycardia, unspecified; E87.20 Acidosis, unspecified; B37.49 Other urogenital candidiasis; W19.XXXA Unspecified fall, initial encounter; N18.9 Chronic kidney disease, unspecified; E66.01 Morbid (severe) obesity due to excess calories; G47.33 Obstructive sleep apnea (adult) (pediatric); I27.20 Pulmonary hypertension, unspecified; I73.9 Peripheral vascular disease, unspecified; G89.29 Other chronic pain; M54.9 Dorsalgia, unspecified; Z86.16 Personal history of COVID-19; Z79.52 Long term (current) use of systemic steroids; Z87.440 Personal history of urinary (tract) infections; Z96.82 Presence of neurostimulator; Z79.01 Long term (current) use of anticoagulants; D63.1 Anemia in chronic kidney disease; I48.91 Unspecified atrial fibrillation; K52.9 Noninfective gastroenteritis and colitis, unspecified; E87.6 Hypokalemia; E83.42 Hypomagnesemia; I95.9 Hypotension, unspecified; Z87.891 Personal history of nicotine dependence
CPT/HCPCS: 36416; 36592; 51702; 71045; 73620; 74176; 80048; 80053; 81001; 82009; 82550; 82962; 83605; 83735; 83880; 84100; 84132; 84484; 85025; 85610; 85730; 87040; 87086; 87106; 87493; 87506; 87635; 93005; 94640; 94664; 96365; 96366; 96367; 96372; 96375; 97110; 97116; 97161; 97166; 97530; 97535; 99291; 99292; C1751; C9113; J0637; J1450; J1580; J1644; J1720; J1815; J1956; J2185; J3475; J3490; J7030; J7050; J7060; J8499

== ENCOUNTER → 2022-01-24 11:30 | Outpatient (BNVA) | payer MEDICARE, OTHER, SELFPAY | PROVIDERS: PCP Nurse Practitioner Family; Visit Provider Family Medicine | DX: E87.5 Hyperkalemia (principal) | CPT/HCPCS: 80048 ==

== ENCOUNTER 2022-01-26 11:25 | Outpatient (CLI) | payer MEDICARE, OTHER, SELFPAY ==
[2022-01-26 12:32] LABS: Blood Urea Nitrogen 25 mg/dL (8-23); Calcium 9.5 mg/dL (8.5-10.5); Carbon Dioxide 31 mmol/L (22-29); Chloride 98 mmol/L (98-107); Glucose 85 mg/dL (65-115); Osmolality Calculated 294 mOsm/kg (285-295); Sodium 140 mmol/L (136-145)
[2022-01-26 12:49] LABS: Anion Gap 15.5 (5-19)
[2022-01-26 12:50] LABS: Potassium 4.5 mmol/L (3.5-5.1)
== END 2022-01-26 11:26 | disposition home or self-care (01) ==
LOC: LAB 11:31
PROVIDERS: PCP Nurse Practitioner Family; Visit Provider Family Medicine
DX: I50.9 Heart failure, unspecified (principal)
CPT/HCPCS: 80048

== ENCOUNTER 2022-01-28 15:55 | Outpatient (CLI) | payer MEDICARE, OTHER, SELFPAY | END 2022-01-28 15:56 | disposition home or self-care (01) | LOC: LAB 01-31 15:59 | PROVIDERS: PCP Nurse Practitioner Family; Visit Provider Family Medicine | DX: I50.9 Heart failure, unspecified (principal) | CPT/HCPCS: 80048; 81000 ==

== ENCOUNTER 2022-01-31 15:51 | Outpatient (CLI) | payer MEDICARE, OTHER, SELFPAY ==
[2022-01-31 18:27] LABS: Blood Urea Nitrogen 29 mg/dL (8-23); Calcium 9.7 mg/dL (8.5-10.5); Carbon Dioxide 28 mmol/L (22-29); Chloride 99 mmol/L (98-107); Glomerular Filtration Rate 49.2 mL/min (90-130); Glucose 177 mg/dL (65-115); Osmolality Calculated 288 mOsm/kg (285-295); Sodium 134 mmol/L (136-145)
[2022-01-31 18:38] LABS: Anion Gap 12.5 (5-19); Potassium 5.5 mmol/L (3.5-5.1)
== END 2022-01-31 15:52 | disposition home or self-care (01) ==
LOC: LAB 15:55
PROVIDERS: PCP Nurse Practitioner Family; Visit Provider Family Medicine
DX: I50.9 Heart failure, unspecified (principal)
CPT/HCPCS: 80048

== ENCOUNTER 2022-02-02 10:20 | Outpatient (CLI) | payer MEDICARE, OTHER, SELFPAY ==
[2022-02-02 11:28] LABS: Anion Gap 11.9 (5-19); Blood Urea Nitrogen 24 mg/dL (8-23); Calcium 9.4 mg/dL (8.5-10.5); Carbon Dioxide 27 mmol/L (22-29); Chloride 101 mmol/L (98-107); Glucose 87 mg/dL (65-115); Osmolality Calculated 283 mOsm/kg (285-295); Potassium 4.9 mmol/L (3.5-5.1); Sodium 135 mmol/L (136-145)
== END 2022-02-02 10:21 | disposition home or self-care (01) ==
LOC: LAB 10:24
PROVIDERS: PCP Nurse Practitioner Family; Visit Provider Family Medicine
DX: I50.9 Heart failure, unspecified (principal)
CPT/HCPCS: 80048

== ENCOUNTER 2022-02-04 16:15 | Outpatient (CLI) | payer MEDICARE, OTHER, SELFPAY ==
[2022-02-04 17:10] LABS: Anion Gap 12.7 (5-19); Blood Urea Nitrogen 19 mg/dL (8-23); Calcium 9.3 mg/dL (8.5-10.5); Carbon Dioxide 30 mmol/L (22-29); Chloride 102 mmol/L (98-107); Glomerular Filtration Rate 62.1 mL/min (90-130); Glucose 132 mg/dL (65-115); Osmolality Calculated 296 mOsm/kg (285-295); Potassium 3.7 mmol/L (3.5-5.1); Sodium 141 mmol/L (136-145)
== END 2022-02-04 16:16 | disposition home or self-care (01) ==
LOC: LAB 16:15
PROVIDERS: PCP Nurse Practitioner Family; Visit Provider Family Medicine
DX: I50.9 Heart failure, unspecified (principal)
CPT/HCPCS: 80048

== ENCOUNTER 2022-02-07 06:00 | Outpatient (CLI) | payer MEDICARE, OTHER, SELFPAY | END 2022-02-07 21:30 | disposition home or self-care (01) | LOC: LAB 02-22 21:29 | PROVIDERS: PCP Nurse Practitioner Family; Visit Provider Family Medicine | DX: I50.9 Heart failure, unspecified (principal) | CPT/HCPCS: 80053 ==

== ENCOUNTER → 2022-02-10 12:11 | Outpatient (BNVA) | payer MEDICARE, OTHER, SELFPAY | PROVIDERS: PCP Nurse Practitioner Family; Visit Provider Family Medicine | DX: E87.5 Hyperkalemia; R30.0 Dysuria; N18.31 Chronic kidney disease, stage 3a | CPT/HCPCS: 80048; 81000 ==

== ENCOUNTER 2022-02-11 15:21 | Outpatient (CLI) | payer MEDICARE, OTHER, SELFPAY ==
[2022-02-11 17:35] LABS: Anion Gap 16.7 (5-19); Blood Urea Nitrogen 24 mg/dL (8-23); Calcium 9.2 mg/dL (8.5-10.5); Carbon Dioxide 27 mmol/L (22-29); Chloride 99 mmol/L (98-107); Glomerular Filtration Rate 62.1 mL/min (90-130); Glucose 58 mg/dL (65-115); Osmolality Calculated 290 mOsm/kg (285-295); Potassium 3.7 mmol/L (3.5-5.1); Sodium 139 mmol/L (136-145)
== END 2022-02-11 15:22 | disposition home or self-care (01) ==
LOC: LAB 15:21
PROVIDERS: PCP Nurse Practitioner Family; Visit Provider Family Medicine
DX: I50.9 Heart failure, unspecified (principal)
CPT/HCPCS: 80048

== ENCOUNTER 2022-02-14 10:52 | Outpatient (CLI) | payer MEDICARE, OTHER, SELFPAY ==
[2022-02-14 14:10] LABS: Alanine Aminotransferase 19 U/L (0-33); Albumin Level 3.4 g/dL (3.5-5.2); Alkaline Phosphatase 113 U/L (35-105); Anion Gap 13.9 (5-19); Aspartate Amino Transferase 11 U/L (0-32); Blood Urea Nitrogen 20 mg/dL (8-23); Calcium 9.4 mg/dL (8.5-10.5); Carbon Dioxide 29 mmol/L (22-29); Chloride 102 mmol/L (98-107); Globulin 3.1 g/dL (1.3-4.6); Glucose 76 mg/dL (65-115); Osmolality Calculated 293 mOsm/kg (285-295); Potassium 3.9 mmol/L (3.5-5.1); Sodium 141 mmol/L (136-145); Total Bilirubin 0.4 mg/dL (0.15-1.2); Total Protein 6.5 g/dL (6.6-8.7)
== END 2022-02-14 10:53 | disposition home or self-care (01) ==
LOC: LAB 11:09
PROVIDERS: PCP Nurse Practitioner Family; Visit Provider Family Medicine
DX: I50.9 Heart failure, unspecified (principal)
CPT/HCPCS: 80053; 99214

== ENCOUNTER 2022-02-16 11:50 | Outpatient (CLI) | payer MEDICARE, OTHER, SELFPAY ==
[2022-02-16 12:47] LABS: Alanine Aminotransferase 22 U/L (0-33); Albumin Level 4.1 g/dL (3.5-5.2); Alkaline Phosphatase 133 U/L (35-105); Anion Gap 17.1 (5-19); Aspartate Amino Transferase 14 U/L (0-32); Blood Urea Nitrogen 24 mg/dL (8-23); Calcium 9.9 mg/dL (8.5-10.5); Carbon Dioxide 34 mmol/L (22-29); Chloride 90 mmol/L (98-107); Globulin 3.1 g/dL (1.3-4.6); Glucose 91 mg/dL (65-115); Osmolality Calculated 290 mOsm/kg (285-295); Potassium 3.1 mmol/L (3.5-5.1); Sodium 138 mmol/L (136-145); Thyroid Stimulating Hormone 0.87 uIU/mL (0.27-4.20); Total Bilirubin 0.5 mg/dL (0.15-1.2); Total Protein 7.2 g/dL (6.6-8.7)
== END 2022-02-16 11:51 | disposition home or self-care (01) ==
LOC: LAB 11:53
PROVIDERS: PCP Nurse Practitioner Family; Referring Provider Internal Medicine; Visit Provider Family Medicine
DX: R94.6 Abnormal results of thyroid function studies (principal)
CPT/HCPCS: 80053; 84439; 84443

== ENCOUNTER 2022-02-18 10:47 | Outpatient (CLI) | payer MEDICARE, OTHER, SELFPAY ==
[2022-02-18 11:29] LABS: Anion Gap 15.6 (5-19); Blood Urea Nitrogen 26 mg/dL (8-23); Calcium 9.7 mg/dL (8.5-10.5); Carbon Dioxide 30 mmol/L (22-29); Chloride 96 mmol/L (98-107); Glomerular Filtration Rate 62.1 mL/min (90-130); Glucose 117 mg/dL (65-115); Osmolality Calculated 292 mOsm/kg (285-295); Potassium 3.6 mmol/L (3.5-5.1); Sodium 138 mmol/L (136-145)
== END 2022-02-18 10:48 | disposition home or self-care (01) ==
PROVIDERS: PCP Nurse Practitioner Family; Visit Provider Family Medicine
DX: I50.9 Heart failure, unspecified (principal)
CPT/HCPCS: 80048

== ENCOUNTER 2022-02-21 18:05 | Outpatient (CLI) | payer MEDICARE, OTHER, SELFPAY ==
[2022-02-21 18:46] LABS: Basophils # 0.1 10^3/uL (0.0-0.1); Basophils % 0.6 %; Eosinophils # 0.2 10^3/uL (0.0-0.8); Eosinophils % 1.4 %; Hematocrit 41.1 % (37.0-47.0); Hemoglobin 11.1 g/dL (11.5-15.3); Lymphocytes # 1.3 10^3/uL (0.8-4.8); Lymphocytes % 8.3 %; Mean Corpuscular Hemoglobin 21.3 pg (28.0-34.0); Mean Corpuscular Volume 78.9 fl (81-99); Mean Platelet Volume 10.5 fL (7.4-10.4); Monocytes % 6.6 %; Neutrophils # 12.65 10^3/uL (1.8-7.7); Neutrophils % 81.3 %; Nucleated Red Blood Cells % 0.1 %; Platelet Count 313 10^3/cmm (130-400); Red Blood Count 5.21 10^6/uL (4.1-5.3); Red Cell Distribution Width 17.7 % (12.1-15.1); White Blood Count 15.6 10^3/uL (4.0-10.0)
[2022-02-21 19:17] LABS: Alanine Aminotransferase 19 U/L (0-33); Albumin Level 3.7 g/dL (3.5-5.2); Alkaline Phosphatase 132 U/L (35-105); Aspartate Amino Transferase 14 U/L (0-32); Blood Urea Nitrogen 28 mg/dL (8-23); Calcium 9.4 mg/dL (8.5-10.5); Carbon Dioxide 28 mmol/L (22-29); Chloride 97 mmol/L (98-107); Globulin 2.8 g/dL (1.3-4.6); Glomerular Filtration Rate 44.5 mL/min (90-130); Glucose 158 mg/dL (65-115); Osmolality Calculated 291 mOsm/kg (285-295); Sodium 136 mmol/L (136-145); Total Bilirubin 0.3 mg/dL (0.15-1.2); Total Protein 6.5 g/dL (6.6-8.7)
== END 2022-02-21 19:11 | disposition home or self-care (01) ==
PROVIDERS: PCP Nurse Practitioner Family; Visit Provider Family Medicine
DX: I50.9 Heart failure, unspecified (principal)
CPT/HCPCS: 80053; 85025

== ENCOUNTER 2022-02-23 01:00 | Outpatient (CLI) | payer MEDICARE, OTHER, SELFPAY ==
--- NOTE | 2022-02-23 18:33 | PM.HP ---
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 fib on Eliquis, Came in with chief complaint of worsening shortness of breath, PND orthopnea, 12 pound weight gain since Monday. She has denied chest pain, does report, going into recurrent A. fib at home she monitors the heart rate with apple watch. Upon arrival in the ER she was worked up for above-mentioned complaint: Pertinent imaging studies: X-ray chest: Mild interstitial edema in the lower lung Pro. EKG sinus rhythm Pertinent labs: WBC 17.8, H&H 11/41, PLT : 338, serum sodium 139, potassium 3.9, BUN serum creatinine: 29/1.3 , proBNP 437 , Patient received Bumex 2 mg IV one-time dose in the ER. Review of Systems General: Reports: 10 or more systems reviewed and unremarkable except in HPI and below Const: Denies: fever(s), chills, body aches, change in appetite or diaphoresis Card: Reports: edema, swelling of feet/ankles, dyspnea on exertion and orthopnea; Denies: palpitations or leg pain with exertion Resp: Reports: dyspnea; Denies: productive cough, wheezing or pain on inspiration GI: Denies: abdominal pain, nausea, vomiting, diarrhea or constipation : Denies: flank pain Musc: Reports: extremity swelling; Denies: back pain or extremity pain Neuro: Denies: headache(s), difficulty walking or confusion Medications/Allergies Home Medications Medication Instructions Recorded Confirmed Last Taken Type epinephrine 0.3 mg/0.3 mL 0.3 mg (0.3 mL) IM Q10M PRN 04/20/20 02/23/22 Unknown Rx injection, auto-injector (EpiPen anaphylaxis #2 ea 2-Nabeel) diabetic supplies, miscellan. #1 ea 01/21/21 02/23/22 Unknown Rx blood sugar diagnostic (Pharmacist #50 ea 03/04/21 02/23/22 Unknown Rx Choice Glucose Test Strips) blood-glucose meter,continuous #1 ea 03/04/21 02/23/22 Unknown Rx polyethylene glycol 3350 17 17 g PO DAILY PRN Constipation 05/05/21 02/23/22 01/11/22 History gram/dose oral powder (Miralax) empagliflozin 10 mg tablet 10 mg PO QAM 08/02/21 02/23/22 02/23/22 History (Jardiance) pantoprazole 40 mg tablet,delayed 40 mg PO QAM 08/02/21 02/23/22 02/23/22 History release (Protonix) pramipexole 0.5 mg tablet (Mirapex) 1 mg PO BEDTIME 08/02/21 02/23/22 02/22/22 History semaglutide 0.25 mg or 0.5 mg (2 1 mg SUBCUT Q7D 08/02/21 02/23/22 02/20/22 History mg/1.5 mL) subcutaneous pen injector (Ozempic) cpap mask and supplies #1 ea 09/14/21 02/23/22 Unknown Rx levothyroxine 175 mcg tablet 175 mcg PO QAM 90 days #90 tabs 10/13/21 02/23/22 02/23/22 Rx pregabalin 150 mg capsule (Lyrica) 150 mg PO BID 90 days #180 caps 01/31/22 02/23/22 02/23/22 Rx dexamethasone 1 mg tablet 1 mg PO QAM 90 days #90 tabs 02/11/22 02/23/22 02/23/22 Rx doxycycline monohydrate 100 mg 100 mg PO BID 14 days #28 tabs 02/16/22 02/23/22 02/23/22 Rx tablet apixaban 5 mg tablet (Eliquis) 5 mg PO BID 02/23/22 02/23/22 02/23/22 History bumetanide 2 mg tablet 2 mg PO BID 02/23/22 02/23/22 02/23/22 History 4 mg hydroxyzine pamoate 25 mg capsule 25 mg PO BID PRN Anxiety 02/23/22 02/23/22 Unknown History magnesium L-lactate 84 mg 84 mg PO QAM 02/23/22 02/23/22 02/23/22 History tablet,extended release (Magtab) metolazone 5 mg tablet 5 mg PO DAILY PRN Weight Gain 02/23/22 02/23/22 02/23/22 History potassium chloride 20 mEq 20 meq PO BID 02/23/22 02/23/2202/23/22 History tablet,extended release(part/cryst) spironolactone 25 mg tablet 12.5 mg PO DAILY 02/23/22 02/23/22 02/23/22 History Allergies Allergy/AdvReac Type Severity Reaction Status Date / Time pregabalin Allergy Unknown ADV-Weaknes Unverified 01/23/22 15:49 s acetaminophen [From Tylenol] Allergy ALGY-Hives Verified 01/17/22 08:27 azithromycin Allergy ALGY-Anaphy Verified 01/17/22 08:27 laxis benzocaine Allergy ALGY-Hives Verified 01/17/22 08:27 butamben [From Cetacaine] Allergy ALGY-Swell Verified 01/17/22 08:27 Lip/Tongue/Throat codeine Allergy ALGY-Hives Verified 01/17/22 08:27 fentanyl Allergy ALGY-Anaphy Verified 01/17/22 08:27 laxis hydrocodone [From Vicodin] Allergy ALGY-Hives Verified 01/17/22 08:27 hydromorphone [From Dilaudid] Allergy ADR-Vomitin Verified 01/17/22 08:27 g Iodinated Contrast Media Allergy ALGY-Anaphy Verified 01/17/22 08:27 laxis liothyronine Allergy ADR-Nausea Verified 01/17/22 08:27 meperidine [From Demerol] Allergy Unknown Verified 01/17/22 08:27 morphine Allergy ALGY-Anaphy Verified 01/17/22 08:27 laxis nitrofurantoin Allergy ALGY-Joint Verified 01/17/22 08:27 [From Macrobid] Pain oxycodone [From Percocet] Allergy ALGY-Hives Verified 01/17/22 08:27 penicillin V Allergy ALGY-Hives Verified 01/17/22 08:27 Penicillins Allergy Unknown Verified 01/17/22 08:27 Phenothiazines Allergy ALGY-Anaphy Verified 01/17/22 08:27 laxis procaine Allergy ALGY-Hives Verified 01/17/22 08:27 prochlorperazine Allergy ALGY-Anaphy Verified 01/17/22 08:27 [From Compazine] laxis Sulfa (Sulfonamide Allergy Unknown Verified 01/17/22 08:27 Antibiotics) tetracaine [From Cetacaine] Allergy ALGY-Swell Verified 01/17/22 08:27 Lip/Tongue/Throat PFSH Acute PFSH: Medical History Acute kidney injury superimposed on chronic kidney disease Acute kidney injury superimposed on CKD Adrenal insufficiency Anasarca Anasarca Anasarca Anemia Atrial fibrillation Benign essential hypertension with target blood pressure below 140/90 Central hypothyroidism CHF (congestive heart failure) CHF exacerbation Chronic back pain Follows at pain clinic for periodic injections Chronic hyponatremia Colitis COVID-19 (~09/2020) Edema ESBL (extended spectrum beta-lactamase) producing bacteria infection Facet arthritis, degenerative, lumbar spine Fatigue Gastroenteritis History of anaphylaxis History of atrial fibrillation Intermittent, has not required long-term anticoagulation or focused treatment History of COVID-19 HTN (hypertension) Hx of atrial fibrillation, no current medication Hyperaldosteronism Hypokalemia Hypomagnesemia Hypophosphatemia 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 Increased nausea and vomiting Lumbar spondylolysis Metabolic acidosis Nausea vomiting and diarrhea OAB (overactive bladder) Obesity Obesity, morbid, BMI 50 or higher Obstructive sleep apnea KP (obstructive sleep apnea) Paroxysmal atrial fibrillation Pituitary macroadenoma with extrasellar extension Prediabetes Pulmonary hypertension PVD (peripheral vascular disease) Shock Stasis edema with ulcer and inflammation Steroid dependence Tachycardia Unsteady gait UTI (urinary tract infection) UTI (urinary tract infection) Venous (peripheral) insufficiency Volume overload VT (ventricular tachycardia) Surgical History H/O shoulder surgery History of hysterectomy History of pituitary surgery S/P insertion of spinal cord stimulator Family History Father Cancer pancreatic cancer Sister No problems noted. 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 Physical Exam Const: COMMON NORMALS: patient oriented x3 Resp: EFFORT & INSPECTION: Yes symmetric chest movement OTHER: Diminished air entry bilaterally mild expiratory wheezing Cardio: COMMON NORMALS: regular rate, regular rhythm, S1 normal heart sound present, S2 normal heart sound present, No gallops present (Cardio), No murmurs present (Cardio), No rub (Cardio) and Peripheral pulses 2+ throughout RATE: regular rate RHYTHM: regular rhythm HEART SOUNDS: S1 normal heart sound present and S2 normal heart sound present PERIPHERAL PULSES: Peripheral pulses 2+ throughout GI: COMMON NORMALS: Normal to inspection, nondistended, normoactive bowel sounds present, Soft to palpation, non-tender, No hepatosplenomegaly present and no masses AUSCULTATION: Yes normoactive bowel sounds PALPATION: Yes Soft to palpation and Yes No hepatosplenomegaly present RECTAL EXAM: deferred Extremity: COMMON NORMALS: no clubbing, cyanosis or edema and no pedal edema A&P Assessment and plan (1) Congestive heart failure: (2) 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 fib on Eliquis, Came in with chief complaint of worsening shortness of breath, PND orthopnea, 12 pound weight gain since Monday. She has denied chest pain, does report, going into recurrent A. fib at home she monitors the heart rate with apple watch. Assessment: Decompensated HFpEF History of A. fib History of hypertension History of diabetes History of hypopituitarism Morbid obesity Sleep apnea Plan: Bumex 2 mg IV twice daily Monitor intake/ output charting Monitor daily weight Correct electrolytes K>4 , MG>2 Follow a.m. cortisol Continue telemetry monitoring Continue Eliquis DuoNebs Continuous spironolactone Continue sliding's scale insulin CODE STATUS: Full code DVT prophylaxis not needed on therapeutic anticoagulation Attestations Medical Necessity Statement*: Patient is in hospital for management of decompensated heart failure. 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
[2022-02-24 05:23] LABS: Basophils # 0.1 10^3/uL (0.0-0.1); Basophils % 0.6 %; Eosinophils # 0.2 10^3/uL (0.0-0.8); Eosinophils % 1.4 %; Hematocrit 37.6 % (37.0-47.0); Hemoglobin 10.5 g/dL (11.5-15.3); Lymphocytes # 2.5 10^3/uL (0.8-4.8); Mean Corpuscular HGB Conc 27.9 g/dL (30.0-36.0); Mean Corpuscular Hemoglobin 21.3 pg (28.0-34.0); Mean Corpuscular Volume 76.3 fl (81-99); Monocytes # 1.5 10^3/uL (0.2-0.9); Monocytes % 9.5 %; Neutrophils # 10.88 10^3/uL (1.8-7.7); Neutrophils % 70.9 %; Nucleated Red Blood Cells % 0.1 %; Platelet Count 298 10^3/cmm (130-400); Red Blood Count 4.93 10^6/uL (4.1-5.3); Red Cell Distribution Width 17.7 % (12.1-15.1); White Blood Count 15.3 10^3/uL (4.0-10.0)
[2022-02-24 05:48] LABS: Lactic Sepsis W/Reflex 1.5 mmol/L (0.5-2.2)
[2022-02-24 06:00] LABS: Cortisol Random 0.11 ug/dL (2.47-19.5)
[2022-02-24 06:01] LABS: Procalcitonin 0.08 ng/mL (0-0.5); Thyroid Stimulating Hormone 1.22 uIU/mL (0.27-4.20)
[2022-02-24 07:03] LABS: Alanine Aminotransferase 17 U/L (0-33); Albumin Level 3.3 g/dL (3.5-5.2); Alkaline Phosphatase 114 U/L (35-105); Anion Gap 15.4 (5-19); Aspartate Amino Transferase 9 U/L (0-32); Blood Urea Nitrogen 30 mg/dL (8-23); Calcium 9.2 mg/dL (8.5-10.5); Carbon Dioxide 26 mmol/L (22-29); Chloride 100 mmol/L (98-107); Globulin 2.7 g/dL (1.3-4.6); Glucose 127 mg/dL (65-115); Magnesium 2.4 mg/dL (1.7-2.3); Osmolality Calculated 294 mOsm/kg (285-295); Potassium 3.4 mmol/L (3.5-5.1); Sodium 138 mmol/L (136-145); Total Bilirubin 0.3 mg/dL (0.15-1.2)
[2022-02-25 02:12] LABS: Basophils # 0.1 10^3/uL (0.0-0.1); Basophils % 0.7 %; Eosinophils # 0.2 10^3/uL (0.0-0.8); Eosinophils % 1.1 %; Hematocrit 37.8 % (37.0-47.0); Hemoglobin 10.7 g/dL (11.5-15.3); Lymphocytes # 2.1 10^3/uL (0.8-4.8); Lymphocytes % 13.8 %; Mean Corpuscular HGB Conc 28.3 g/dL (30.0-36.0); Mean Corpuscular Hemoglobin 21.4 pg (28.0-34.0); Mean Corpuscular Volume 75.6 fl (81-99); Monocytes # 1.5 10^3/uL (0.2-0.9); Monocytes % 9.9 %; Neutrophils # 11.32 10^3/uL (1.8-7.7); Neutrophils % 73.1 %; Nucleated Red Blood Cells % 0.2 %; Platelet Count 305 10^3/cmm (130-400); Red Cell Distribution Width 17.7 % (12.1-15.1); White Blood Count 15.5 10^3/uL (4.0-10.0)
[2022-02-25 02:35] LABS: Alanine Aminotransferase 17 U/L (0-33); Albumin Level 3.5 g/dL (3.5-5.2); Alkaline Phosphatase 121 U/L (35-105); Anion Gap 13.9 (5-19); Aspartate Amino Transferase 8 U/L (0-32); Blood Urea Nitrogen 28 mg/dL (8-23); Calcium 9.4 mg/dL (8.5-10.5); Carbon Dioxide 27 mmol/L (22-29); Chloride 102 mmol/L (98-107); Globulin 2.7 g/dL (1.3-4.6); Glomerular Filtration Rate 49.2 mL/min (90-130); Glucose 131 mg/dL (65-115); Magnesium 2.3 mg/dL (1.7-2.3); Osmolality Calculated 295 mOsm/kg (285-295); Potassium 3.9 mmol/L (3.5-5.1); Sodium 139 mmol/L (136-145); Total Bilirubin 0.3 mg/dL (0.15-1.2); Total Protein 6.2 g/dL (6.6-8.7)
== END 2022-02-23 23:00 | disposition home or self-care (01) ==
LOC: LAB 04-04 21:34
PROVIDERS: Internal Medicine; PCP Nurse Practitioner Family; Visit Provider Family Medicine
DX: I50.9 Heart failure, unspecified (principal)
CPT/HCPCS: 36415; 80053; 82533; 83605; 83735; 84145; 84443; 85025; 87040

== ENCOUNTER 2022-02-23 16:22 | Inpatient (IN) | payer MEDICARE, OTHER, SELFPAY ==
[2022-02-23] VITALS (28 sets, daily range): BP systolic 109–153; BP diastolic 70–108; PULSE 75–90; RESP 16–31; TEMP 36.4; O2SAT 81–99; BMI 50.5
--- NOTE | 2022-02-23 16:49 | XRR_ITS ---
PROCEDURE INFORMATION: Exam: XR Chest Exam date and time: 02/23/2022 4:59 PM Age: 71 years old Clinical indication: Shortness of breath TECHNIQUE: Imaging protocol: Radiologic exam of the chest. Views: 1 view. COMPARISON: CR (CHEST, ) 01/16/2022 10:08 PM FINDINGS: Lungs: There is no consolidation. Prominent interstitial markings in the lower lungs. Pleural spaces: There is no pleural effusion or pneumothorax. Heart/Mediastinum: Cardiomediastinal contours are unremarkable. Bones/joints: Bones are unremarkable. XR/XR chest 1V portable [id number] IMPRESSION: Prominent interstitial markings in the lower lungs. This finding may be nonpathologic or could represent mild interstitial edema.
[2022-02-23 16:57] LABS: Basophils # 0.1 10^3/uL (0.0-0.1); Basophils % 0.5 %; Eosinophils # 0.1 10^3/uL (0.0-0.8); Eosinophils % 0.6 %; Hematocrit 41.3 % (37.0-47.0); Hemoglobin 11.8 g/dL (11.5-15.3); Lymphocytes # 1.3 10^3/uL (0.8-4.8); Lymphocytes % 7.1 %; Mean Corpuscular HGB Conc 28.6 g/dL (30.0-36.0); Mean Corpuscular Hemoglobin 21.6 pg (28.0-34.0); Mean Corpuscular Volume 75.6 fl (81-99); Monocytes # 1.3 10^3/uL (0.2-0.9); Monocytes % 7.4 %; Neutrophils # 14.77 10^3/uL (1.8-7.7); Neutrophils % 82.9 %; Nucleated Red Blood Cells % 0.2 %; Platelet Count 338 10^3/cmm (130-400); Red Blood Count 5.46 10^6/uL (4.1-5.3); Red Cell Distribution Width 17.7 % (12.1-15.1); White Blood Count 17.8 10^3/uL (4.0-10.0)
--- NOTE | 2022-02-23 17:02 | ECG_ITS ---
[facility] Test Date: 2022-02-23 Pat Name: Carolyn Alexander Department: Room: Gender: Female Skull Chopper: : 1950 Requested By: Destinee Borjas Order Number: [id number] Marina MD: Bahman Rowland M.D. Measurements Intervals Gabbs Rate: 77 P: 33 CO: 147 QRS: -19 QRSD: 90 T: -15 QT: 389 QTc: 441 Interpretive Statements SINUS RHYTHM MODERATE ST DEPRESSION [0.05+ mV ST DEPRESSION] Compared to ECG 01/17/2022 03:10:14 ST (T wave) deviation now present Left anterior fascicular block no longer present Myocardial infarct finding no longer present Electronically Signed On 02-23-2022 17:55:09 GAS LINE SERVICER by Bahman Rowland M.D. [id number]
[2022-02-23] MEDS: bumetanide 0.25 mg/mL SDV 4 mL 2 MG IVP (17:16)
[2022-02-23 17:18] LABS: Troponin(5th) Baseline 15 ng/L (0-10)
--- NOTE | 2022-02-23 17:19 | W.ED.SOB ---
HPI - SOB/Dyspnea General: Chief Complaint: Shortness of Breath/Dyspnea Stated Complaint: SOB, CHF Time Seen by Provider: 02/23/22 16:49 History of Present Illness: HPI Narrative: 71-year-old female with a history of congestive heart failure, atrial fibrillation, recent VT arrest who presents with increasing shortness of breath and peripheral edema. She had a 15 pound weight gain over the past week. She has been taking twice daily Bumex as well as Aldactone and metolazone. She denies chest pain. She states she is having shortness of breath with activity as well as orthopnea. She denies cough or fever. She denies missing any doses of her medications. She denies any changes in her medication doses. She states she has not had any ill contacts. She is just finishing up a course of doxycycline for cellulitis of her right lower extremity. She states that the area of redness on her leg has improved. She states she has been going in and out of atrial fibrillation more than usual but has not had any episodes of tachycardia in association with this. She is chronically on Eliquis but is not on anything for rate control. She states they stopped her Associated symptoms: Reports palpitations; Deny chest pain or fever(s) Review of Systems Const: Denies: fever(s) or chills Eyes: Denies: change in vision ENMT: Denies: nasal congestion Card: Reports: palpitations, irregular heart rhythm, swelling of feet/ankles and dyspnea on exertion; Denies: chest pain PFS ED PFSH: Medical History Acute kidney injury superimposed on chronic kidney disease Acute kidney injury superimposed on CKD Adrenal insufficiency Anasarca Anasarca Anasarca Anemia Atrial fibrillation Benign essential hypertension with target blood pressure below 140/90 Central hypothyroidism CHF (congestive heart failure) CHF exacerbation Chronic back pain Follows at pain clinic for periodic injections Chronic hyponatremia Colitis COVID-19 (~09/2020) Edema ESBL (extended spectrum beta-lactamase) producing bacteria infection Facet arthritis, degenerative, lumbar spine Fatigue Gastroenteritis History of anaphylaxis History of atrial fibrillation Intermittent, has not required long-term anticoagulation or focused treatment History of COVID-19 HTN (hypertension) Hx of atrial fibrillation, no current medication Hyperaldosteronism Hypokalemia Hypomagnesemia Hypophosphatemia 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 Increased nausea and vomiting Lumbar spondylolysis Metabolic acidosis Nausea vomiting and diarrhea OAB (overactive bladder) Obesity Obesity, morbid, BMI 50 or higher Obstructive sleep apnea KP (obstructive sleep apnea) Paroxysmal atrial fibrillation Pituitary macroadenoma with extrasellar extension Prediabetes Pulmonary hypertension PVD (peripheral vascular disease) Shock Stasis edema with ulcer and inflammation Steroid dependence Tachycardia Unsteady gait UTI (urinary tract infection) UTI (urinary tract infection) Venous (peripheral) insufficiency Volume overload VT (ventricular tachycardia) Surgical History H/O shoulder surgery History of hysterectomy History of pituitary surgery S/P insertion of spinal cord stimulator Family History Father Cancer pancreatic cancer Sister No problems noted. 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 HENMT: COMMON NORMALS: normocephalic, atraumatic and moist oral mucous membranes HEAD & SCALP: normocephalic and atraumatic Eye: COMMON NORMALS: Equal, round and reactive pupils present and EOMs intact bilaterally PUPIL: Yes Equal, round and reactive pupils present Neck/C-Spine: OTHER: Trachea midline Resp: OTHER: Crackles in the lung bases, decreased air movement bilaterally with expiratory wheezes. Cardio: COMMON NORMALS: regular rate, regular rhythm, S1 normal heart sound present and S2 normal heart sound present RATE: regular rate RHYTHM: regular rhythm HEART SOUNDS: S1 normal heart sound present and S2 normal heart sound present GI: COMMON NORMALS: Normal to inspection, nondistended, normoactive bowel sounds present, Soft to palpation and non-tender PALPATION: Yes Soft to palpation Extremity: OTHER: 3+ edema of her lower extremities bilaterally. There is a small weeping wound on the right pretibial area. There is an area of erythema that is resolving on the lower right tibial area as well. Distal pulses are intact. Neuro: COMMON NORMALS: patient oriented x3 SENSORIUM/ORIENTATION: Yes alert Skin: OTHER: Area of cellulitis on the right lower extremity as described above Course ED course: Patient's been evaluated in the emergency department. She had an IV placed and labs obtained. She had an EKG which shows no acute ischemic changes. Chest x-ray shows cardiomegaly and vascular congestion. On laboratory work-up she does have a leukocytosis with a white blood cell count of 17.8. BUN is 29, creatinine 1.3. Electrolytes are normal. Troponin is 15. BNP is 437. Patient's been given Bumex 2 mg IV. She said a Zurita catheter placed. Discussed with hospitalist for admission. Consultations: Consultation #1: Discussed with Dr. Ramos for admission Time: 17:52 Vital Signs: Vital signs: Vital Signs Pulse Rate 75 02/23/22 17:20 Respiratory Rate 24 H 02/23/22 17:20 Blood Pressure 132/88 02/23/22 17:20 Pulse Oximetry 99 02/23/22 17:20 Oxygen Delivery Me thod 02/23/22 16:25 Oxygen Flow Rate 4 02/23/22 16:25 MDM - SOB/Dyspnea Medical Decision Making 71-year-old white female with a history of A. fib, V. tach arrest, congestive heart failure who presents with increasing shortness of breath and a 15 pound weight gain over the past week. Will obtain EKG, chest x-ray and labs. We will give the patient IV Bumex and a nebulizer treatment. Likely the patient will need admission for IV diuresis. Lab Data I reviewed the patient's lab results. 02/23/22 16:44 02/23/22 16:44 Labs/Radiology: Radiology Impressions Chest X-Ray 02/23/22 16:49 IMPRESSION: Prominent interstitial markings in the lower lungs. This finding may be nonpathologic or could represent mild interstitial edema. Laboratory Results WBC 17.8 10^3/uL (4.0-10.0) H 02/23/22 16:44 RBC 5.46 10^6/uL (4.1-5.3) H 02/23/22 16:44 Hgb 11.8 g/dL (11.5-15.3) 02/23/22 16:44 Hct 41.3 % (37.0-47.0) 02/23/22 16:44 MCV 75.6 fl (81-99) L 02/23/22 16:44 MCH 21.6 pg (28.0-34.0) L 02/23/22 16:44 MCHC 28.6 g/dL (30.0-36.0) L 02/23/22 16:44 RDW 17.7 % (12.1-15.1) H 02/23/22 16:44 Plt Count 338 10^3/cmm (130-400) 02/23/22 16:44 MPV 10.0 fL (7.4-10.4) 02/23/22 16:44 Neut % (Auto) 82.9 % 02/23/22 16:44 Lymph % (Auto) 7.1 % 02/23/22 16:44 [facility] % (Auto) 7.4 % 02/23/22 16:44 Eos % (Auto) 0.6 % 02/23/22 16:44 Baso % (Auto) 0.5 % 02/23/22 16:44 Neut # (Auto) 14.77 10^3/uL (1.8-7.7) H 02/23/22 16:44 Lymph # (Auto) 1.3 10^3/uL (0.8-4.8) 02/23/22 16:44 [facility] # (Auto) 1.3 10^3/uL (0.2-0.9) H 02/23/22 16:44 Eos # (Auto) 0.1 10^3/uL (0.0-0.8) 02/23/22 16:44 Baso # (Auto) 0.1 10^3/uL (0.0-0.1) 02/23/22 16:44 Nucleated RBC % (auto) 0.2 % 02/23/22 16:44 Nucleated RBCs # 0.0 /100WBC 02/23/22 16:44 Sodium 139 mmol/L (136-145) 02/23/22 16:44 Potassium 3.9 mmol/L (3.5-5.1) 02/23/22 16:44 Chloride 100 mmol/L (98-107) 02/23/22 16:44 Carbon Dioxide 29 mmol/L (22-29) 02/23/22 16:44 Anion Gap 13.9 (5-19) 02/23/22 16:44 BUN 29 mg/dL (8-23) H 02/23/22 16:44 Creatinine 1.3 mg/dL (0.5-0.9) H 02/23/22 16:44 GFR Calculation 40.6 mL/min (90-130) L 02/23/22 16:44 Glucose 153 mg/dL (65-115) H 02/23/22 16:44 Calculated Osmolality 297 mOsm/kg (285-295) H 02/23/22 16:44 Calcium 9.4 mg/dL (8.5-10.5) 02/23/22 16:44 Magnesium 2.1 mg/dL (1.7-2.3) 02/23/22 16:44 Total Bilirubin 0.3 mg/dL (0.15-1.2) 02/23/22 16:44 AST 16 U/L (0-32) 02/23/22 16:44 ALT 22 U/L (0-33) 02/23/22 16:44 Alkaline Phosphatase 128 U/L (35-105) H 02/23/22 16:44 Troponin T Baseline 15 ng/L (0-10) H 02/23/22 16:44 NT-Pro-B Natriuret Pep 437 pg/mL (0-125) H 02/23/22 16:44 Total Protein 6.8 g/dL (6.6-8.7) 02/23/22 16:44 Albumin 3.5 g/dL (3.5-5.2) 02/23/22 16:44 Globulin 3.3 g/dL (1.3-4.6) 02/23/22 16:44 EKG Data EKG 1: I personally reviewed and interpreted this EKG as follows: EKG Interpretation Date: 02/23/22 EKG interpretation time: 17:15 Interpretation: NSR, no ST or T wave changeas Discharge Plan Discharge Patient Disposition: Admitted As Inpatient Clinical Impression: Congestive heart failure Condition: Stable Coding Level of Care Code ED Transformation Architect for Chg Fwd Exam Detailed
[2022-02-23 17:27] LABS: Alanine Aminotransferase 22 U/L (0-33); Albumin Level 3.5 g/dL (3.5-5.2); Alkaline Phosphatase 128 U/L (35-105); Aspartate Amino Transferase 16 U/L (0-32); Blood Urea Nitrogen 29 mg/dL (8-23); Calcium 9.4 mg/dL (8.5-10.5); Carbon Dioxide 29 mmol/L (22-29); Chloride 100 mmol/L (98-107); Globulin 3.3 g/dL (1.3-4.6); Glomerular Filtration Rate 40.6 mL/min (90-130); Glucose 153 mg/dL (65-115); Magnesium 2.1 mg/dL (1.7-2.3); NT Pro B Type Natriuretic Pept 437 pg/mL (0-125); Osmolality Calculated 297 mOsm/kg (285-295); Sodium 139 mmol/L (136-145); Total Bilirubin 0.3 mg/dL (0.15-1.2); Total Protein 6.8 g/dL (6.6-8.7)
[2022-02-23 17:33] LABS: Anion Gap 13.9 (5-19); Potassium 3.9 mmol/L (3.5-5.1)
[2022-02-23] MEDS: ipratropium-albuterol 3 mL Neb INHALATION (17:56)
--- NOTE | 2022-02-23 18:50 | ECG_ITS ---
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 Measurements Intervals [place] Rate: 75 P: 80 ID: [id number] QRS: -27 QRSD: 98 T: 22 QT: 404 QTc: 454 Interpretive Statements SINUS RHYTHM POSSIBLE ANTERIOR MYOCARDIAL INFARCTION , OF INDETERMINATE AGE [30 ms Q WAVE IN V3/V4, OR R < 0.2 mV IN V4] Compared to ECG 02/23/2022 17:02:31 Myocardial infarct finding now present ST (T wave) deviation no longer present Electronically Signed On 02-24-2022 19:21:51 ONLINE CONTENT EDITOR by Jaki Leavitt M.D. [id number]
[2022-02-23 19:15] LABS: Troponin 5 2HR 13.92 ng/L (0-10)
[2022-02-23 19:19] LABS: Troponin 5 2HR Delta -1.08 ABS# (0-10)
--- NOTE | 2022-02-23 20:15 | PC.NURSE ---
Report given to Elias Mejias
[2022-02-23 22:17] LABS: Glucose Point of Care 274 mg/dL (70-110)
[2022-02-23] MEDS: insulin lispro 100 unit/1 mL SUBCUT (22:30)
--- NOTE | 2022-02-23 22:50 | ECG_ITS ---
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 Measurements Intervals [place] Rate: 62 P: 47 AL: 155 QRS: 37 QRSD: 88 T: 41 QT: 414 QTc: 422 Interpretive Statements SINUS RHYTHM LOW QRS VOLTAGE IN PRECORDIAL LEADS [QRS DEFLECTION < 1.0 mV IN CHEST LEADS] POSSIBLE ANTERIOR MYOCARDIAL INFARCTION , OF INDETERMINATE AGE [30 ms Q WAVE IN V3/V4, OR R < 0.2 mV IN V4] Compared to ECG 02/23/2022 19:04:17 Low QRS voltage now present Myocardial infarct finding still present Electronically Signed On 02-24-2022 19:13:54 HIGH SCHOOL ASSISTANT FOOTBALL COACH by Jaki Leavitt M.D. [id number]
[2022-02-23 23:04] LABS: Troponin 5 6HR 13.72 ng/L (0-10)
[2022-02-23 23:05] LABS: Troponin 5 6HR Delta -1.28 ng/L (0-12)
[2022-02-24] VITALS (12 sets, daily range): BP systolic 127–145; BP diastolic 71–85; PULSE 59–87; RESP 14–22; TEMP 36.6–36.9; O2SAT 92–96
--- NOTE | 2022-02-24 00:07 | PC.NURSE ---
Changed patients dressing on the right lower leg leg. Patient stated this wound if from her weeping edema. 2X2 and tegaderm were used.
[2022-02-24] MEDS: ipratropium 0.5 mg/2.5 mL Neb INHALATION ×4 (04:25→20:08)
[2022-02-24] MEDS: levalbuterol 0.63 mg/3 mL Neb INHALATION ×4 (04:25→20:08)
[2022-02-24] MEDS: dexamethasone 4 mg Tablet 1 MG PO (06:02)
[2022-02-24] MEDS: bumetanide 0.25 mg/mL SDV 10 mL 2 MG IVP ×2 (06:03→18:40)
[2022-02-24] MEDS: pantoprazole DR 40 mg Tablet PO (06:03)
[2022-02-24] MEDS: levothyroxine 175 mcg Tablet PO (06:03)
[2022-02-24] MEDS: doxycycline 100 mg Tablet PO ×2 (09:10→17:25)
[2022-02-24] MEDS: potassium chloride ER 20 mEq Tablet 40 MEQ PO ×2 (09:10→17:25)
[2022-02-24] MEDS: spironolactone 25 mg Tablet 12.5 MG PO (09:10)
[2022-02-24] MEDS: apixaban 5 mg Tablet PO ×2 (09:10→17:24)
--- NOTE | 2022-02-24 11:03 | PC.CHAP ---
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 training and development officer visit [] Patient/Family/Request visit [] Outpatient visit [] Follow-up visit [] Physician referral [] Code/Alert [x] Routine visit [] Staff referral [] Actively dying [] Patient sleeping [] Family support [] [] Out of room [] Palliative care [] [x] Receiving care in room [] Pre-surgical visit [] Trauma [x] Long length of stay [] ICU visit [] Other: Relational/Emotional Strength [x] Patient feels connected with others/family/visitors/staff [] Distress [] Loneliness/isolation [] Abandonment Spirituality of Patient [x] Person of Minoo [] Attends Presybeterian of their [place]inoo [x] Believes in Prayer [] Reads Bible or Christianity materials [] There are Spiritual issues to be addressed Agency Service Coordinator Interventions [x] Prayer [x] Active listening [x] Non-anxious presence [x] Spiritual/emotional support [] Crisis/trauma care [x] Spiritual counseling [] Bereavement support [] Provided bereavement packet [] Provided Bible/devotional materials [] Provided toy/stuffed animal, coloring book to patient or family member [] Provided Communion [] Anointing/Barbeau [] Salvation [x] Completed spiritual assessment [] Other: Impact on Illness or Injury [] Angry [] Fearful [x] Anxious [] Often cries [] Exhaustion [x] Unable to work [] Unable to attend latter day [] Unable to walk/stand [] Unable to read [] Unable to drive [] Unable to eat/drink [] Unable to sleep [] Unable to be with family [] Patient intubated [] Other: Summary senior has congestive heart waiting on the test results has good attitude well go home Time spent with patient 10 mins
--- NOTE | 2022-02-24 11:38 | PM.PN ---
Subjective Subjective: Patient was seen and examined this morning shortness of breath is improving good urine output overnight. Feels better as compared to yesterday. Medications: Medication Review Details: Generic Name Dose Route Start Last Admin Trade Name Jose PRN Reason Stop Dose Admin Apixaban 5 mg 02/24/22 09:00 02/24/22 09:10 Apixaban 5 Mg Ta blet PO 5 mg BID RAMIRO Administration Bumetanide 2 mg 02/24/22 07:00 02/24/22 06:03 Bumetanide 0.25 Mg/Ml Sdv 10 Ml IVP 2 mg Q12H RAMIRO Administration Dexamethasone 1 mg 02/24/22 06:00 02/24/22 06:02 Dexamethasone 4 Mg Tablet PO 1 mg QAM RAMIRO Administration Doxycycline Monohy drate 100 mg 02/24/22 09:00 02/24/22 09:10 Doxycycline 100 Mg Tablet PO 100 mg BID RAMIRO Administration Protocol Insulin Human Lisp ro 0 unit 02/23/22 21:00 02/24/22 09:54 Insulin Lispro 1 00 Unit/1 Ml SUBCUT Not Given WM&BEDTIME RAMIRO Protocol Ipratropium Bromid e 0.5 mg 02/24/22 02:00 02/24/22 08:50 Ipratropium 0.5 Mg/2.5 Ml Neb INHALATION 0.5 mg Q6H.RESP RAMIRO Administration Levalbuterol HCl 0.63 mg 02/23/22 20:58 02/24/22 08:50 Levalbuterol 0.6 3 Mg/3 Ml Neb INHALATION 0.63 mg Q6H.RESP RAMIRO Administration Levothyroxine Sodi um 175 mcg 02/24/22 06:00 02/24/22 06:03 Levothyroxine 17 5 Mcg Tablet PO 175 mcg QAM RAMIRO Administration Pantoprazole Sodiu m 40 mg 02/24/22 06:00 02/24/22 06:[address] 40 Mg Tablet PO 40 mg QAM RAMIRO Administration Spironolactone 12.5 mg 02/24/22 09:00 02/24/22 09:10 Spironolactone 2 5 Mg Tablet PO 12.5 mg DAILY RAMIRO Administration Vitals/I&O/Wt Last Vital Signs Temp 97.9 F 02/24/22 08:00 Pulse 78 02/24/22 09:00 Resp 18 02/24/22 08:50 BP 137/85 02/24/22 08:00 Pulse Ox 96 02/24/22 08:50 O2 Del Method 02/24/22 08:50 O2 Flow Rate 1 02/23/22 18:05 02/23/22 02/24/22 02/24/22 22:59 06:59 14:59 Intake Total 480 / 480 Output Total 1675 / 1675 5000 / 5000 Balance -1195 / -1195 -5000 / -5000 Weight last 48 hrs Weight 155.129 kg Physical Exam HENMT: COMMON NORMALS: normocephalic and atraumatic HEAD & SCALP: normocephalic and atraumatic Resp: COMMON NORMALS: clear to auscultation bilaterally AUSCULTATION: clear to auscultation bilaterally OTHER: Mild expiratory wheezing, bilateral basal crackles Cardio: COMMON NORMALS: regular rate, regular rhythm, S1 normal heart sound present, S2 normal heart sound present, No gallops present (Cardio), No murmurs present (Cardio), No rub (Cardio) and Peripheral pulses 2+ throughout RATE: regular rate RHYTHM: regular rhythm HEART SOUNDS: S1 normal heart sound present and S2 normal heart sound present PERIPHERAL PULSES: Peripheral pulses 2+ throughout GI: COMMON NORMALS: Normal to inspection, nondistended, normoactive bowel sounds present, Soft to palpation, non-tender, No hepatosplenomegaly present and no masses AUSCULTATION: Yes normoactive bowel sounds PALPATION: Yes Soft to palpation and Yes No hepatosplenomegaly present RECTAL EXAM: deferred Extremity: NARRATIVE EXTREMITY EXAM: 2+ bilateral lower extremity pitting edema, small weeping wound on the right pretibial area. Urinary Catheter Management: Zurita: Cath Placed During This Visit: yes Reason for Continuing Indwelling Catheter: Other Urinary Catheter Date of Insertion: 02/23/22 Urinary Catheter Time of Insertion: 17:35 Data 02/23/22 16:44 02/23/22 16:44 A&P Assessment and plan (1) Congestive heart failure: (2) HTN (hypertension): Qualifiers: Hypertension type: primary hypertension Qualified Code(s): I10 - Essential (primary) hypertension (3) Type 2 diabetes mellitus with other diabetic kidney complication: (4) Central hypothyroidism: (5) History of atrial fibrillation: Plan Assessment: Decompensated HFpEF History of A. fib History of hypertension History of diabetes History of hypopituitarism Morbid obesity Sleep apnea Plan: Procalcitonin 0.08 TSH 1.22 Bumex 2 mg IV twice daily Monitor intake/ output charting Monitor daily weight Correct electrolytes K>4 , MG>2 Follow a.m. cortisol: 0.11 Continue telemetry monitoring Continue Eliquis DuoNebs Continuous spironolactone Continue sliding's scale insulin CODE STATUS: Full code DVT prophylaxis not needed on therapeutic anticoagulation Attestations Medical Necessity Statement*: Patient is to be in hospital for management of decompensated heart failure. Coding Level of Care Code Acute Supervisor Buffing And Pasting for g Fwd Diagnoses Congestive heart failure I50.9 HTN (hypertension) I10 Hypertension type: primary hypertension Type 2 diabetes mellitus with other diabetic kidney complication E11.29 Central hypothyroidism E03.8 History of atrial fibrillation Z86.79
[2022-02-24 14:09] LABS: Glucose Point of Care 192 mg/dL (70-110)
[2022-02-24 17:14] LABS: Glucose Point of Care 264 mg/dL (70-110)
[2022-02-24] MEDS: insulin lispro 100 unit/1 mL SUBCUT ×2 (17:26→22:01)
[2022-02-24 21:20] LABS: Glucose Point of Care 217 mg/dL (70-110)
[2022-02-24] MEDS: pregabalin 150 mg Capsule PO (23:34)
[2022-02-25] VITALS (9 sets, daily range): BP systolic 114–145; BP diastolic 64–83; PULSE 64–76; RESP 15–19; TEMP 36.4–36.9; O2SAT 93–98
[2022-02-25] MEDS: pantoprazole DR 40 mg Tablet PO (05:20)
[2022-02-25] MEDS: levothyroxine 175 mcg Tablet PO (05:20)
[2022-02-25] MEDS: dexamethasone 4 mg Tablet 1 MG PO (05:20)
[2022-02-25] MEDS: bumetanide 0.25 mg/mL SDV 10 mL 2 MG IVP (06:28)
[2022-02-25 06:42] LABS: Glucose Point of Care 169 mg/dL (70-110)
[2022-02-25] MEDS: spironolactone 25 mg Tablet 12.5 MG PO (09:15)
[2022-02-25] MEDS: pregabalin 150 mg Capsule PO (09:15)
[2022-02-25] MEDS: apixaban 5 mg Tablet PO (09:15)
[2022-02-25] MEDS: doxycycline 100 mg Tablet PO (09:15)
[2022-02-25] MEDS: potassium chloride ER 20 mEq Tablet 40 MEQ PO (09:15)
[2022-02-25] MEDS: insulin lispro 100 unit/1 mL SUBCUT (09:18)
[2022-02-25 12:20] LABS: Glucose Point of Care 151 mg/dL (70-110)
--- NOTE | 2022-02-25 12:29 | P.PN_ITS ---
Subjective Subjective: Patient was seen and examined shortness of breath is significantly improved, continue to make good urine output, currently she is approximately 8 Ls negative, lower extremity swelling is going down. We will switch her to p.o. Bumex from evening, restart her home po metolazone. Medications: Medication Review Details: Generic Name Dose Route Start Last Admin Trade Name Jose PRN Reason Stop Dose Admin Apixaban 5 mg 02/24/22 09:00 02/25/22 09:15 Apixaban 5 Mg Ta blet PO 5 mg BID RAMIRO Administration Dexamethasone 1 mg 02/24/22 06:00 02/25/22 05:20 Dexamethasone 4 Mg Tablet PO 1 mg QAM RAMIRO Administration Doxycycline Monohy drate 100 mg 02/24/22 09:00 02/25/22 09:15 Doxycycline 100 Mg Tablet PO 100 mg BID RMAIRO Administration Protocol Insulin Human Lisp ro 0 unit 02/23/22 21:00 02/25/22 09:18 Insulin Lispro 1 00 Unit/1 Ml SUBCUT 2 unit WM&BEDTIME RAMIRO Administration Protocol Ipratropium Bromid e 0.5 mg 02/24/22 02:00 02/25/22 02:06 Ipratropium 0.5 Mg/2.5 Ml Neb INHALATION Not Given Q6H.RESP RAMIRO Levalbuterol HCl 0.63 mg 02/23/22 20:58 02/25/22 02:06 Levalbuterol 0.6 3 Mg/3 Ml Neb INHALATION Not Given Q6H.RESP RAMIRO Levothyroxine Sodi um 175 mcg 02/24/22 06:00 02/25/22 05:20 Levothyroxine 17 5 Mcg Tablet PO 175 mcg QAM RAMIRO Administration Pantoprazole Sodiu m 40 mg 02/24/22 06:00 02/25/22 05:[address] 40 Mg Tablet PO 40 mg QAM RAMIRO Administration Potassium Chloride 40 meq 02/24/22 18:00 02/25/22 09:15 Potassium Chlori de Er 20 Meq Table t PO 40 meq BID RAMIRO Administration Pregabalin 150 mg 02/24/22 23:00 02/25/22 09:15 Pregabalin 150 M g Capsule PO 150 mg BID RAMIRO Administration Spironolactone 12.5 mg 02/24/22 09:00 02/25/22 09:15 Spironolactone 2 5 Mg Tablet PO 12.5 mg DAILY RAMIRO Administration Vitals/I&O/Wt Last Vital Signs Temp 98.4 F 02/25/22 11:11 Pulse 64 02/25/22 11:11 Resp 19 H 02/25/22 11:11 BP 142/79 02/25/22 11:11 Pulse Ox 93 02/25/22 11:11 O2 Del Method 02/25/22 11:11 O2 Flow Rate 1 02/23/22 18:05 02/24/22 02/25/22 02/25/22 22:59 06:59 14:59 Intake Total 350 / 950 240 / 240 Output Total 1550 / 6550 1825 / 8375 Balance -1200 / -5600 -1825 / -7425 240 / 240 Weight last 48 hrs Weight 155.129 kg Physical Exam HENMT: COMMON NORMALS: normocephalic and atraumatic HEAD & SCALP: normocephalic and atraumatic Resp: COMMON NORMALS: clear to auscultation bilaterally AUSCULTATION: clear to auscultation bilaterally OTHER: Mild expiratory wheezing, bilateral basal crackles Cardio: COMMON NORMALS: regular rate, regular rhythm, S1 normal heart sound present, S2 normal heart sound present, No gallops present (Cardio), No murmurs present (Cardio), No rub (Cardio) and Peripheral pulses 2+ throughout RATE: regular rate RHYTHM: regular rhythm HEART SOUNDS: S1 normal heart sound present and S2 normal heart sound present PERIPHERAL PULSES: Peripheral pulses 2+ throughout GI: COMMON NORMALS: Normal to inspection, nondistended, normoactive bowel sounds present, Soft to palpation, non-tender, No hepatosplenomegaly present and no masses AUSCULTATION: Yes normoactive bowel sounds PALPATION: Yes Soft to palpation and Yes No hepatosplenomegaly present RECTAL EXAM: deferred Extremity: NARRATIVE EXTREMITY EXAM: 2+ bilateral lower extremity pitting edema, small weeping wound on the right pretibial area. Urinary Catheter Management: Zurita: Cath Placed During This Visit: yes Reason for Continuing Indwelling Catheter: Other Urinary Catheter Date of Insertion: 02/23/22 Urinary Catheter Time of Insertion: 17:35 Data 02/23/22 16:44 02/23/22 16:44 A&P Assessment and plan (1) Congestive heart failure: (2) HTN (hypertension): Qualifiers: Hypertension type: primary hypertension Qualified Code(s): I10 - Essential (primary) hypertension (3) Type 2 diabetes mellitus with other diabetic kidney complication: (4) Central hypothyroidism: (5) History of atrial fibrillation: Plan Assessment: Decompensated HFpEF History of A. fib History of hypertension History of diabetes History of hypopituitarism Morbid obesity Sleep apnea Plan: Procalcitonin 0.08 TSH 1.22 Bumex 2 mg IV twice daily Monitor intake/ output charting Monitor daily weight Correct electrolytes K>4 , MG>2 Follow a.m. cortisol: 0.11 Continue telemetry monitoring Continue Eliquis DuoNebs Continuous spironolactone Continue sliding's scale insulin CODE STATUS: Full code DVT prophylaxis not needed on therapeutic anticoagulation Attestations Medical Necessity Statement*: Patient is to be in hospital for management of decompensated heart failure. Coding Level of Care Code Acute Distributing Clerk for [facility] Fwd Diagnoses Congestive heart failure I50.9 HTN (hypertension) I10 Hypertension type: primary hypertension Type 2 diabetes mellitus with other diabetic kidney complication E11.29 Central hypothyroidism E03.8 History of atrial fibrillation Z86.79
[2022-02-25] MEDS: metOLazone 5 MG Tablet PO (14:06)
[2022-02-25] MEDS: FUROsemide 10 mg/mL SDV 4mL 40 MG IVP (14:07)
--- NOTE | 2022-02-25 16:15 | PM.DCS ---
Discharge Providers Date of Admission: 02/23/22 18:37 Date of Discharge: February 25, 2022 Attending Provider at Admission: Justo Ramos MD Attending Provider at Discharge: Justo Ramos MD Primary Care Provider: Crys Glover NP Diagnoses at Discharge Discharge Diagnosis (1) Congestive heart failure: Status: Acute (2) HTN (hypertension): Status: Acute Qualifiers: Hypertension type: primary hypertension Qualified Code(s): I10 - Essential (primary) hypertension (3) Type 2 diabetes mellitus with other diabetic kidney complication: Status: Acute (4) Central hypothyroidism: Status: Acute (5) History of atrial fibrillation: Status: Acute Permanent problem details: Intermittent, has not required long-term anticoagulation or focused treatment Reason for Visit Reason for Visit: SOB, CHF Hospital Course Hospital Course 71 year old female with past medical history of hypertension diabetes, hypothyroidism,HFpEF, 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 fib on Eliquis, Came in with chief complaint of worsening shortness of breath, PND orthopnea, 12 pound weight gain since Monday.? She has denied chest pain, does report, going into recurrent A. fib at home she monitors the heart rate with [employer].She was admitted for the management of decompensated heart failure, she was kept on IV diuresis, intake output was charted electrolytes were monitored, daily weight was monitored, telemetry monitoring was done, she responded well to IV diuresis, at the time of discharge she was close to 9 L negative, shortness of breath had markedly improved. She responded well to above medical management she was discharged on Bumex and metolazone, she will follow cardiology as outpatient. Physical Exam HENMT: COMMON NORMALS: normocephalic and atraumatic HEAD & SCALP: normocephalic and atraumatic Resp: COMMON NORMALS: clear to auscultation bilaterally AUSCULTATION: clear to auscultation bilaterally Cardio: COMMON NORMALS: regular rate, regular rhythm, S1 normal heart sound present, S2 normal heart sound present, No gallops present (Cardio), No murmurs present (Cardio), No rub (Cardio) and Peripheral pulses 2+ throughout RATE: regular rate RHYTHM: regular rhythm HEART SOUNDS: S1 normal heart sound present and S2 normal heart sound present PERIPHERAL PULSES: Peripheral pulses 2+ throughout GI: COMMON NORMALS: Normal to inspection, nondistended, normoactive bowel sounds present, Soft to palpation, non-tender, No hepatosplenomegaly present and no masses AUSCULTATION: Yes normoactive bowel sounds PALPATION: Yes Soft to palpation and Yes No hepatosplenomegaly present RECTAL EXAM: deferred Extremity: NARRATIVE EXTREMITY EXAM: 2+ bilateral lower extremity pitting edema, small weeping wound on the right pretibial area. Urinary Catheter Management: Zurita: Cath Placed During This Visit: yes Reason for Continuing Indwelling Catheter: Other Urinary Catheter Date of Insertion: 02/23/22 Urinary Catheter Time of Insertion: 17:35 Discharge Data Studies Completed and Pending Completed Studies During Hospitalization Category Date Time Status XR chest 1V portable [id number] Stat Exams 02/23/22 16:49 Completed Radiology Impressions Chest X-Ray 02/23/22 16:49 IMPRESSION: Prominent interstitial markings in the lower lungs. This finding may be nonpathologic or could represent mild interstitial edema. Laboratory Results WBC 17.8 10^3/uL (4.0-10.0) H 02/23/22 16:44 RBC 5.46 10^6/uL (4.1-5.3) H 02/23/22 16:44 Hgb 11.8 g/dL (11.5-15.3) 02/23/22 16:44 Hct 41.3 % (37.0-47.0) 02/23/22 16:44 MCV 75.6 fl (81-99) L 02/23/22 16:44 MCH 21.6 pg (28.0-34.0) L 02/23/22 16:44 MCHC 28.6 g/dL (30.0-36.0) L 02/23/22 16:44 RDW 17.7 % (12.1-15.1) H 02/23/22 16:44 Plt Count 338 10^3/cmm (130-400) 02/23/22 16:44 MPV 10.0 fL (7.4-10.4) 02/23/22 16:44 Neut % (Auto) 82.9 % 02/23/22 16:44 Lymph % (Auto) 7.1 % 02/23/22 16:44 Gage % (Auto) 7.4 % 02/23/22 16:44 Eos % (Auto) 0.6 % 02/23/22 16:44 Baso % (Auto) 0.5 % 02/23/22 16:44 Neut # (Auto) 14.77 10^3/uL (1.8-7.7) H 02/23/22 16:44 Lymph # (Auto) 1.3 10^3/uL (0.8-4.8) 02/23/22 16:44 Gage # (Auto) 1.3 10^3/uL (0.2-0.9) H 02/23/22 16:44 Eos # (Auto) 0.1 10^3/uL (0.0-0.8) 02/23/22 16:44 Baso # (Auto) 0.1 10^3/uL (0.0-0.1) 02/23/22 16:44 Nucleated RBC % (auto) 0.2 % 02/23/22 16:44 Nucleated RBCs # 0.0 /100WBC 02/23/22 16:44 Sodium 139 mmol/L (136-145) 02/23/22 16:44 Potassium 3.9 mmol/L (3.5-5.1) 02/23/22 16:44 Chloride 100 mmol/L (98-107) 02/23/22 16:44 Carbon Dioxide 29 mmol/L (22-29) 02/23/22 16:44 Anion Gap 13.9 (5-19) 02/23/22 16:44 BUN 29 mg/dL (8-23) H 02/23/22 16:44 Creatinine 1.3 mg/dL (0.5-0.9) H 02/23/22 16:44 GFR Calculation 40.6 mL/min (90-130) L 02/23/22 16:44 Glucose 153 mg/dL (65-115) H 02/23/22 16:44 POC Glucose 151 mg/dL (70-110) H 02/25/22 12:00 Calculated Osmolality 297 mOsm/kg (285-295) H 02/23/22 16:44 Calcium 9.4 mg/dL (8.5-10.5) 02/23/22 16:44 Magnesium 2.1 mg/dL (1.7-2.3) 02/23/22 16:44 Total Bilirubin 0.3 mg/dL (0.15-1.2) 02/23/22 16:44 AST 16 U/L (0-32) 02/23/22 16:44 ALT 22 U/L (0-33) 02/23/22 16:44 Alkaline Phosphatase 128 U/L (35-105) H 02/23/22 16:44 Troponin T Baseline 15 ng/L (0-10) H 02/23/22 16:44 Troponin T 120 Minute 13.92 ng/L (0-10) H 02/23/22 18:37 Delta Troponin T -1.08 ABS# (0-10) L 02/23/22 18:37 Troponin T Hi Sens 6Hr 13.72 ng/L (0-10) H 02/23/22 22:33 Troponin T Hi Sens 6Hr Delta -1.28 ng/L (0-12) L 02/23/22 22:33 NT-Pro-B Natriuret Pep 437 pg/mL (0-125) H 02/23/22 16:44 Total Protein 6.8 g/dL (6.6-8.7) 02/23/22 16:44 Albumin 3.5 g/dL (3.5-5.2) 02/23/22 16:44 Globulin 3.3 g/dL (1.3-4.6) 02/23/22 16:44 Vitals Last Vital Signs Temp 97.9 F 02/25/22 15:42 Pulse 76 02/25/22 15:42 Resp 15 02/25/22 15:42 BP 139/71 02/25/22 15:42 Pulse Ox 93 02/25/22 15:42 O2 Del Method 02/25/22 15:42 O2 Flow Rate 1 02/23/22 18:05 Discharge Plan Discharge Patient Disposition: Home Condition: Stable Prescriptions: Continued epinephrine [EpiPen 2-Nabeel] 0.3 mg/0.3 mL auto-injector 0.3 mg IM Q10M PRN (Reason: anaphylaxis) Qty: 2 3RF Rx Instructions: for 3 doses (DME) Pharmacist Choice Strip See Rx Instructions .Route Qty: 50 2RF Rx Instructions: AC and HS (DME) blood-glucose meter,continuous Misc See Rx Instructions .Route Qty: 1 0RF Rx Instructions: As directed one meter with all necessary supplies (DME) cpap mask and supplies See Rx Instructions .Route .MEDSUPPLY Qty: 1 0RF Rx Instructions: As directed levothyroxine 175 mcg tablet 175 mcg PO QAM 90 Days Qty: 90 1RF pregabalin [Lyrica] 150 mg capsule 150 mg PO BID 90 Days Qty: 180 1RF dexamethasone 1 mg tablet 1 mg PO QAM 90 Days Qty: 90 1RF (DME) diabetic supplies, miscellan. Misc See Rx Instructions .Route Qty: 1 0RF Rx Instructions: As directed polyethylene glycol 3350 [Miralax] 17 gram/dose Powder 17 g PO DAILY PRN (Reason: Constipation) metolazone 5 mg Tablet 5 mg PO DAILY PRN (Reason: Weight Gain) spironolactone 25 mg tablet 12.5 mg PO DAILY potassium chloride 20 mEq tablet,ER particles/crystals 20 meq PO BID hydroxyzine pamoate 25 mg capsule 25 mg PO BID PRN (Reason: Anxiety) Magtab 84 mg tablet extended release 84 mg PO QAM Eliquis 5 mg tablet 5 mg PO BID bumetanide 2 mg tablet 2 mg PO BID pramipexole [Mirapex] 0.5 mg tablet 1 mg PO BEDTIME pantoprazole [Protonix] 40 mg tablet,delayed release (DR/EC) 40 mg PO QAM Jardiance 10 mg tablet 10 mg PO QAM Ozempic 0.25 mg or 0.5 mg(2 mg/1.5 mL) pen injector 1 mg SUBCUT Q7D Rx Instructions: on monday Discontinued doxycycline monohydrate 100 mg tablet 100 mg PO BID 14 Days Qty: 28 0RF Rx Instructions: rx filled 02/16/22 14d/s Discharge Orders: Discharge Order (Routine); Ordered 02/25/22 Ordered By: Justo Ramos Referrals: Crys Glover NP [Primary Care Provider] - Bahman Rowland M.D [Physician] - 04/12/22 1:45 pm Mariana Lawrence FNP [Nurse Practitioner] - 03/02/22 8:45 am Patient Instructions: Opioid Safety Discharge Attestations Time Spent in Discharge Care*: less than 30 min Quality Metrics Clinical Quality Measures [ No reported AMI, CVA or VTE this stay] Coding Level of Care Code Acute Chg FW DC note Diagnoses Congestive heart failure I50.9 HTN (hypertension) I10 Hypertension type: primary hypertension Type 2 diabetes mellitus with other diabetic kidney complication E11.29 Central hypothyroidism E03.8 History of atrial fibrillation Z86.79
[2022-02-25 17:06] LABS: Glucose Point of Care 192 mg/dL (70-110)
== END 2022-02-25 17:21 | disposition home or self-care (01) | DRG 291 ==
LOC: ER 18:25 → MEDSURG 18:38
PROVIDERS: Admitting Provider Internal Medicine; Emergency Provider Emergency Medicine; PCP Nurse Practitioner Family; Visit Provider Internal Medicine
DX: I13.0 Hypertensive heart and chronic kidney disease with heart failure and stage 1 through stage 4 chronic kidney disease, or unspecified chronic kidney disease (principal); I50.33 Acute on chronic diastolic (congestive) heart failure; Z68.43 Body mass index [BMI] 50.0-59.9, adult; E03.9 Hypothyroidism, unspecified; I48.91 Unspecified atrial fibrillation; E20.9 Hypoparathyroidism, unspecified; E66.01 Morbid (severe) obesity due to excess calories; G47.30 Sleep apnea, unspecified; Z79.01 Long term (current) use of anticoagulants; Z79.84 Long term (current) use of oral hypoglycemic drugs; N18.31 Chronic kidney disease, stage 3a; E11.22 Type 2 diabetes mellitus with diabetic chronic kidney disease; G89.29 Other chronic pain; M47.816 Spondylosis without myelopathy or radiculopathy, lumbar region; Z86.16 Personal history of COVID-19; I48.0 Paroxysmal atrial fibrillation; I27.20 Pulmonary hypertension, unspecified; E11.51 Type 2 diabetes mellitus with diabetic peripheral angiopathy without gangrene; Z87.440 Personal history of urinary (tract) infections; Z87.891 Personal history of nicotine dependence; Z96.82 Presence of neurostimulator
CPT/HCPCS: 36415; 36416; 51702; 71045; 80053; 82533; 82962; 83605; 83735; 83880; 84145; 84443; 84484; 85025; 87040; 93005; 94640; 96372; 96374; 99285; J1815; J1940; J3490; J7614; J7644; J8540

== ENCOUNTER 2022-02-27 09:13 | Emergency (ER) | payer MEDICARE, OTHER, SELFPAY ==
[2022-02-27] VITALS (21 sets, daily range): BP systolic 91–145; BP diastolic 74–104; PULSE 75–144; RESP 16–39; TEMP 36.3; O2SAT 88–98
--- NOTE | 2022-02-27 09:24 | ECG_ITS ---
[facility] Test Date: 2022-02-27 Pat Name: Carolyn Alexander Department: Room: Gender: Female Performance Makeup Artist: : 1950 Requested By: Lazarus Durbin Order Number: [id number] Laina MD: Bahman Rowland M.D. Measurements Intervals [place] Rate: 142 P: 0 GA: 0 QRS: -48 QRSD: 85 T: 102 QT: 176 QTc: 271 Interpretive Statements ATRIAL FLUTTER/TACHYCARDIA WITH RAPID VENTRICULAR RESPONSE LOW QRS VOLTAGE IN PRECORDIAL LEADS [QRS DEFLECTION < 1.0 mV IN CHEST LEADS] LEFT ANTERIOR FASCICULAR BLOCK [QRS AXIS <= -45, QR IN I, RS IN II] POSSIBLE ANTERIOR MYOCARDIAL INFARCTION , PROBABLY OLD [30 ms Q WAVE IN V3/V4, OR R < 0.2 mV IN V4] ST DEPRESSION, CONSIDER SUBENDOCARDIAL INJURY [0.1+ mV ST DEPRESSION] Compared to ECG 02/24/2022 05:44:28 Left anterior fascicular block now present ST (T wave) deviation now present Sinus rhythm no longer present Myocardial infarct finding still present Electronically Signed On 02-27-2022 19:57:05 JOINERY MACHINIST by Bahman Rowland M.D. [id number]
--- NOTE | 2022-02-27 09:25 | XRR_ITS ---
PROCEDURE INFORMATION: Exam: XR Chest Exam date and time: 02/27/2022 9:45 AM Age: 71 years old Clinical indication: Pain; Chest pressure; Additional info: Cp TECHNIQUE: Imaging protocol: Radiologic exam of the chest. Views: 1 view. COMPARISON: CR (CHEST, ) 02/23/2022 4:59 PM FINDINGS: Lungs: Unremarkable. No consolidation. Pleural spaces: Unremarkable. No pleural effusion. No pneumothorax. Heart/Mediastinum: Unremarkable. No cardiomegaly. Bones/joints: Unremarkable. XR/XR chest 1V portable [id number] IMPRESSION: No acute findings.
--- NOTE | 2022-02-27 09:25 | ECG_ITS ---
[facility] Test Date: 2022-02-27 Pat Name: Carolyn Alexander Department: Room: Gender: Female Global Implementation Manager: : 1950 Requested By: Lazarus Durbin Order Number: [id number] Laina MD: Bahman Rowland M.D. Measurements Intervals [place] Rate: 84 P: 71 SD: 156 QRS: -40 QRSD: 92 T: 63 QT: 394 QTc: 467 Interpretive Statements SINUS RHYTHM WITH OCCASIONAL ECTOPIC PREMATURE COMPLEXES LEFT AXIS DEVIATION [QRS AXIS < -30] PATTERN CONSISTENT WITH PULMONARY DISEASE NONSPECIFIC T-WAVE ABNORMALITY Compared to ECG 02/24/2022 05:44:28 Left-axis deviation now present T-wave abnormality now present Myocardial infarct finding no longer present Electronically Signed On 02-27-2022 19:44:24 PACK WORKER by Bahman Rowland M.D. [id number]
--- NOTE | 2022-02-27 09:26 | W.ED.CHESTPA ---
HPI - Chest Pain General: Chief Complaint: Chest Pain Stated Complaint: AFIB Time Seen by Provider: 02/27/22 09:18 Source: patient Mode of arrival: ambulatory Limitations: no limitations History of Present Illness: 71-year-old female who has multiple medical issues she has a history of A. fib that she had an ablation 4 months ago 4. She also has a history of congestive heart failure she was admitted for this and discharged 5 days ago from the hospital states today she has been having palpitations along with some chest pain patient was originally in A. fib with RVR here with heart rate in the 140s she has since converted here spontaneously and heart rates now 90 she denies any worsening improving factors she states she feels her heart is racing with the palpitations and pain. PFSH ED PFSH: Medical History Acute kidney injury superimposed on chronic kidney disease Acute kidney injury superimposed on CKD Adrenal insufficiency Anasarca Anasarca Anasarca Anemia Atrial fibrillation Benign essential hypertension with target blood pressure below 140/90 Central hypothyroidism CHF (congestive heart failure) CHF exacerbation Chronic back pain Follows at pain clinic for periodic injections Chronic hyponatremia Colitis Congestive heart failure COVID-19 (~09/2020) Edema ESBL (extended spectrum beta-lactamase) producing bacteria infection Facet arthritis, degenerative, lumbar spine Fatigue Gastroenteritis History of anaphylaxis History of atrial fibrillation Intermittent, has not required long-term anticoagulation or focused treatment History of COVID-19 HTN (hypertension) Hx of atrial fibrillation, no current medication Hyperaldosteronism Hypokalemia Hypomagnesemia Hypophosphatemia 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 Increased nausea and vomiting Lumbar spondylolysis Metabolic acidosis Nausea vomiting and diarrhea OAB (overactive bladder) Obesity Obesity, morbid, BMI 50 or higher Obstructive sleep apnea KP (obstructive sleep apnea) Paroxysmal atrial fibrillation Pituitary macroadenoma with extrasellar extension Prediabetes Pulmonary hypertension PVD (peripheral vascular disease) Shock Stasis edema with ulcer and inflammation Steroid dependence Tachycardia Type 2 diabetes mellitus with other diabetic kidney complication Unsteady gait UTI (urinary tract infection) UTI (urinary tract infection) Venous (peripheral) insufficiency Volume overload VT (ventricular tachycardia) Surgical History H/O shoulder surgery History of hysterectomy History of pituitary surgery S/P insertion of spinal cord stimulator Family History Father Cancer pancreatic cancer Sister No problems noted. 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 Physical Exam Const: COMMON NORMALS: patient oriented x3 HENMT: COMMON NORMALS: normocephalic and atraumatic HEAD & SCALP: normocephalic and atraumatic Eye: COMMON NORMALS: Equal, round and reactive pupils present and EOMs intact bilaterally PUPIL: Yes Equal, round and reactive pupils present Neck/C-Spine: COMMON NORMALS: full ROM and supple Chest: COMMONS NORMALS: normal inspection of the chest and normal palpation of entire chest wall Resp: COMMON NORMALS: normal respiratory effort, No retractions, No use of accessory muscles and clear to auscultation bilaterally AUSCULTATION: clear to auscultation bilaterally Cardio: COMMON NORMALS: No murmurs present (Cardio) RATE: tachycardic RHYTHM: abnormal rhythm irregularly irregular GI: COMMON NORMALS: Normal to inspection, nondistended, normoactive bowel sounds present, Soft to palpation, non-tender and no masses PALPATION: Yes Soft to palpation Extremity: COMMON NORMALS: normal to inspection and full ROM Neuro: COMMON NORMALS: patient oriented x3, moves all extremities and no focal motor deficits Psych: COMMON NORMALS: mental status grossly normal, Normal thought process present and cooperative THOUGHT PROCESS: Normal thought process present Skin: COMMON NORMALS: no rashes or lesions noted and no wounds GENERAL SKIN EXAM: no rashes or lesions noted Course Vital Signs: Vital signs: Vital Signs Temperature 97.3 F L 02/27/22 09:22 Pulse Rate 89 02/27/22 11:30 Respiratory Rate 17 02/27/22 11:30 Blood Pressure 145/103 02/27/22 11:30 Pulse Oximetry 94 02/27/22 11:30 MDM - Chest Pain Medical Decision Making Patient presents here with Joya. cathi she is converted here on her own I did speak to Dr. Herrera we will start her on metoprolol at home 25 mg twice daily she is also hypokalemic here she is to double her potassium dose over the next 3 days she is stable for discharge she is to follow-up and return if worsening. Lab Data 02/27/22 09:40 02/27/22 09:40 Radiology Impressions Chest X-Ray 02/27/22 09:25 IMPRESSION: No acute findings. Laboratory Results WBC 18.0 10^3/uL (4.0-10.0) H 02/27/22 09:40 RBC 6.04 10^6/uL (4.1-5.3) H 02/27/22 09:40 Hgb 12.7 g/dL (11.5-15.3) 02/27/22 09:40 Hct 45.2 % (37.0-47.0) 02/27/22 09:40 MCV 74.8 fl (81-99) L 02/27/22 09:40 MCH 21.0 pg (28.0-34.0) L 02/27/22 09:40 MCHC 28.1 g/dL (30.0-36.0) L 02/27/22 09:40 RDW 17.7 % (12.1-15.1) H 02/27/22 09:40 Plt Count 356 10^3/cmm (130-400) 02/27/22 09:40 MPV 10.2 fL (7.4-10.4) 02/27/22 09:40 Neut % (Auto) 73.7 % 02/27/22 09:40 Lymph % (Auto) 14.9 % 02/27/22 09:40 Boyle % (Auto) 6.9 % 02/27/22 09:40 Eos % (Auto) 2.4 % 02/27/22 09:40 Baso % (Auto) 0.7 % 02/27/22 09:40 Neut # (Auto) 13.29 10^3/uL (1.8-7.7) H 02/27/22 09:40 Lymph # (Auto) 2.7 10^3/uL (0.8-4.8) 02/27/22 09:40 Boyle # (Auto) 1.3 10^3/uL (0.2-0.9) H 02/27/22 09:40 Eos # (Auto) 0.4 10^3/uL (0.0-0.8) 02/27/22 09:40 Baso # (Auto) 0.1 10^3/uL (0.0-0.1) 02/27/22 09:40 Nucleated RBC % (auto) 0.2 % 02/27/22 09:40 Nucleated RBCs # 0.0 /100WBC 02/27/22 09:40 PT 15.00 SECONDS (12.1-14.9) H 02/27/22 09:40 INR 1.15 (0.8-1.2) 02/27/22 09:40 Sodium 131 mmol/L (136-145) L 02/27/22 09:40 Potassium 2.8 mmol/L (3.5-5.1) L* 02/27/22 09:40 Chloride 91 mmol/L (98-107) L 02/27/22 09:40 Carbon Dioxide 26 mmol/L (22-29) 02/27/22 09:40 Anion Gap 16.8 (5-19) 02/27/22 09:40 BUN 29 mg/dL (8-23) H 02/27/22 09:40 Creatinine 1.0 mg/dL (0.5-0.9) H 02/27/22 09:40 GFR Calculation 55.0 mL/min (90-130) L 02/27/22 09:40 Glucose 159 mg/dL (65-115) H 02/27/22 09:40 Calculated Osmolality 281 mOsm/kg (285-295) L 02/27/22 09:40 Calcium 9.8 mg/dL (8.5-10.5) 02/27/22 09:40 Total Bilirubin 0.4 mg/dL (0.15-1.2) 02/27/22 09:40 AST 13 U/L (0-32) 02/27/22 09:40 ALT 19 U/L (0-33) 02/27/22 09:40 Alkaline Phosphatase 135 U/L (35-105) H 02/27/22 09:40 Troponin T Baseline 21 ng/L (0-10) H 02/27/22 09:40 Total Protein 6.9 g/dL (6.6-8.7) 02/27/22 09:40 Albumin 3.8 g/dL (3.5-5.2) 02/27/22 09:40 Globulin 3.1 g/dL (1.3-4.6) 02/27/22 09:40 TSH 0.93 uIU/mL (0.27-4.20) 02/27/22 09:40 EKG Data EKG 1: I personally reviewed and interpreted this EKG as follows: EKG interpretation date: 02/27/22 EKG interpretation time: 09:24 Interpretation: atrial flutter hr [address] or t wave abnormalities qrs 85 qtc 258 EKG 2: I personally reviewed and interpreted this EKG as follows: EKG interpretation date: 02/27/22 EKG interpretation time: 09:32 Interpretation: nsr hr [address] or t wave abnormalities qrs 92 qtc 435 Discharge Plan Discharge Patient Disposition: Home Clinical Impression: Hypokalemia Atrial fibrillation Qualifiers: Atrial fibrillation type: unspecified Qualified Code(s): I48.91 - Unspecified atrial fibrillation Condition: Stable Prescriptions: New metoprolol tartrate 25 mg tablet 25 mg PO BID Qty: 60 0RF No Action epinephrine [EpiPen 2-Nabeel] 0.3 mg/0.3 mL auto-injector 0.3 mg IM Q10M PRN (Reason: anaphylaxis) Qty: 2 3RF Rx Instructions: for 3 doses (DME) Pharmacist Choice Strip See Rx Instructions .Route Qty: 50 2RF Rx Instructions: AC and HS (DME) blood-glucose meter,continuous Misc See Rx Instructions .Route Qty: 1 0RF Rx Instructions: As directed one meter with all necessary supplies (DME) cpap mask and supplies See Rx Instructions .Route .MEDSUPPLY Qty: 1 0RF Rx Instructions: As directed levothyroxine 175 mcg tablet 175 mcg PO QAM 90 Days Qty: 90 1RF pregabalin [Lyrica] 150 mg capsule 150 mg PO BID 90 Days Qty: 180 1RF dexamethasone 1 mg tablet 1 mg PO QAM 90 Days Qty: 90 1RF (DME) diabetic supplies, miscellan. Misc See Rx Instructions .Route Qty: 1 0RF Rx Instructions: As directed polyethylene glycol 3350 [Miralax] 17 gram/dose Powder 17 g PO DAILY PRN (Reason: Constipation) metolazone 5 mg Tablet 5 mg PO DAILY PRN (Reason: Weight Gain) spironolactone 25 mg tablet 12.5 mg PO DAILY potassium chloride 20 mEq tablet,ER particles/crystals 20 meq PO BID hydroxyzine pamoate 25 mg capsule 25 mg PO BID PRN (Reason: Anxiety) Magtab 84 mg tablet extended release 84 mg PO QAM Eliquis 5 mg tablet 5 mg PO BID bumetanide 2 mg tablet 2 mg PO BID pramipexole [Mirapex] 0.5 mg tablet 1 mg PO BEDTIME pantoprazole [Protonix] 40 mg tablet,delayed release (DR/EC) 40 mg PO QAM Jardiance 10 mg tablet 10 mg PO QAM Ozempic 0.25 mg or 0.5 mg(2 mg/1.5 mL) pen injector 1 mg SUBCUT Q7D Rx Instructions: on monday Discharge Orders: Discharge ED (Routine); Ordered 02/27/22 Ordered By: Lazarus Durbin Referrals: Crys Glover NP [Primary Care Provider] - Bahman Rowland M.D [Physician] - 1-3 days Discharge Diet: Advance as tolerated Discharge Activity: Resume usual activity Patient Instructions: A-fib (Atrial Fibrillation) (ED), Hypokalemia (ED) Coding Level of Care Code ED Integrated Circuit Ic Layout Designer for Chg Fwd Exam Comprehensive
[2022-02-27 09:57] LABS: Basophils # 0.1 10^3/uL (0.0-0.1); Basophils % 0.7 %; Eosinophils # 0.4 10^3/uL (0.0-0.8); Eosinophils % 2.4 %; Hematocrit 45.2 % (37.0-47.0); Hemoglobin 12.7 g/dL (11.5-15.3); Lymphocytes # 2.7 10^3/uL (0.8-4.8); Lymphocytes % 14.9 %; Mean Corpuscular HGB Conc 28.1 g/dL (30.0-36.0); Mean Corpuscular Volume 74.8 fl (81-99); Mean Platelet Volume 10.2 fL (7.4-10.4); Monocytes # 1.3 10^3/uL (0.2-0.9); Monocytes % 6.9 %; Neutrophils # 13.29 10^3/uL (1.8-7.7); Neutrophils % 73.7 %; Nucleated Red Blood Cells % 0.2 %; Platelet Count 356 10^3/cmm (130-400); Red Blood Count 6.04 10^6/uL (4.1-5.3); Red Cell Distribution Width 17.7 % (12.1-15.1)
[2022-02-27 10:13] LABS: INR 1.15 (0.8-1.2)
[2022-02-27 10:19] LABS: Troponin(5th) Baseline 21 ng/L (0-10)
[2022-02-27 11:12] LABS: Alanine Aminotransferase 19 U/L (0-33); Albumin Level 3.8 g/dL (3.5-5.2); Alkaline Phosphatase 135 U/L (35-105); Anion Gap 16.8 (5-19); Aspartate Amino Transferase 13 U/L (0-32); Blood Urea Nitrogen 29 mg/dL (8-23); Calcium 9.8 mg/dL (8.5-10.5); Carbon Dioxide 26 mmol/L (22-29); Chloride 91 mmol/L (98-107); Globulin 3.1 g/dL (1.3-4.6); Glucose 159 mg/dL (65-115); Osmolality Calculated 281 mOsm/kg (285-295); Sodium 131 mmol/L (136-145); Thyroid Stimulating Hormone 0.93 uIU/mL (0.27-4.20); Total Bilirubin 0.4 mg/dL (0.15-1.2); Total Protein 6.9 g/dL (6.6-8.7)
[2022-02-27 11:13] LABS: Potassium 2.8 mmol/L (3.5-5.1)
--- NOTE | 2022-02-27 11:25 | ECG_ITS ---
[facility] Test Date: 2022-02-27 Pat Name: Carolyn Alexander Department: Room: Gender: Female Radiation Oncology Manager: : 1950 Requested By: Lazarus Durbin Order Number: [id number] Laina MD: Bahman Rowland M.D. Measurements Intervals [place] Rate: 77 P: 36 [place]: 149 QRS: -38 QRSD: 97 T: 20 QT: 403 QTc: 458 Interpretive Statements SINUS RHYTHM LEFT AXIS DEVIATION [QRS AXIS < -30] LOW QRS VOLTAGE IN PRECORDIAL LEADS [QRS DEFLECTION < 1.0 mV IN CHEST LEADS] POSSIBLE ANTERIOR MYOCARDIAL INFARCTION , OF INDETERMINATE AGE [30 ms Q WAVE IN V3/V4, OR R < 0.2 mV IN V4] Compared to ECG 02/27/2022 09:32:07 Low QRS voltage now present Myocardial infarct finding now present T-wave abnormality no longer present Electronically Signed On 02-27-2022 19:56:45 CHEESE SPRAYER by Bahman Rowland M.D. [id number]
[2022-02-27] MEDS: potassium chloride ER 20 mEq Tablet 60 MEQ PO (11:32)
--- NOTE | 2022-02-28 12:12 | DCPLANNER ---
Addendum entered by Svitlana Arshad 03/03/22 14:54: Patient had an appointment scheduled for 03.07.22, this appointment was cancelled. Original Note: manager transportation had message to schedule a follow up appointment for patient with cardiology. manager transportation sent patients information to the front office staff at [facility]. Patients information will be printed and reviewed. Clinic will call patient with appointment information.
== END 2022-02-27 11:40 | disposition home or self-care (01) ==
PROVIDERS: Emergency Provider Emergency Medicine; PCP Nurse Practitioner Family
DX: I48.91 Unspecified atrial fibrillation (principal); E87.6 Hypokalemia
CPT/HCPCS: 71045; 80053; 84443; 84484; 85025; 85610; 93005; 96374; 99285

== ENCOUNTER 2022-03-19 10:46 | Outpatient (CLI) | payer MEDICARE, OTHER, SELFPAY ==
[2022-03-19 14:07] LABS: Anion Gap 16.1 (5-19); Blood Urea Nitrogen 43 mg/dL (8-23); Calcium 9.4 mg/dL (8.5-10.5); Carbon Dioxide 31 mmol/L (22-29); Chloride 94 mmol/L (98-107); Glomerular Filtration Rate 34.4 mL/min (90-130); Glucose 236 mg/dL (65-115); Osmolality Calculated 304 mOsm/kg (285-295); Potassium 3.1 mmol/L (3.5-5.1); Sodium 138 mmol/L (136-145)
== END 2022-03-19 10:47 | disposition home or self-care (01) ==
PROVIDERS: PCP Nurse Practitioner Family; Visit Provider Family Medicine
DX: I50.30 Unspecified diastolic (congestive) heart failure (principal)
CPT/HCPCS: 80048

== ENCOUNTER 2022-03-23 18:13 | Outpatient (CLI) | payer MEDICARE, OTHER, SELFPAY | END 2022-03-23 18:14 | disposition home or self-care (01) | PROVIDERS: PCP Nurse Practitioner Family; Visit Provider Family Medicine | DX: Z01.89 Encounter for other specified special examinations (principal) | CPT/HCPCS: 80053 ==

== ENCOUNTER 2022-03-29 01:00 | Outpatient (CLI) | payer MEDICARE, OTHER, SELFPAY ==
[2022-03-29 17:46] LABS: Anion Gap 16.4 (5-19); Blood Urea Nitrogen 33 mg/dL (8-23); Calcium 9.5 mg/dL (8.5-10.5); Carbon Dioxide 27 mmol/L (22-29); Chloride 95 mmol/L (98-107); Glomerular Filtration Rate 44.5 mL/min (90-130); Glucose 244 mg/dL (65-115); Osmolality Calculated 291 mOsm/kg (285-295); Potassium 5.4 mmol/L (3.5-5.1); Sodium 133 mmol/L (136-145)
== END 2022-03-29 23:00 | disposition home or self-care (01) ==
LOC: LAB 04-26 18:14
PROVIDERS: PCP Family Medicine; Visit Provider Family Medicine
DX: I13.0 Hypertensive heart and chronic kidney disease with heart failure and stage 1 through stage 4 chronic kidney disease, or unspecified chronic kidney disease (principal)
CPT/HCPCS: 80048

== ENCOUNTER 2022-04-01 11:27 | Outpatient (CLI) | payer MEDICARE, OTHER, SELFPAY ==
[2022-04-01 13:03] LABS: Anion Gap 15.6 (5-19); Blood Urea Nitrogen 24 mg/dL (8-23); Calcium 9.5 mg/dL (8.5-10.5); Carbon Dioxide 24 mmol/L (22-29); Chloride 97 mmol/L (98-107); Glomerular Filtration Rate 71.1 mL/min (90-130); Glucose 73 mg/dL (65-115); Osmolality Calculated 277 mOsm/kg (285-295); Potassium 4.6 mmol/L (3.5-5.1); Sodium 132 mmol/L (136-145)
== END 2022-04-01 11:28 | disposition home or self-care (01) ==
LOC: LAB 11:27
PROVIDERS: PCP Nurse Practitioner Family; Visit Provider Family Medicine
DX: I13.0 Hypertensive heart and chronic kidney disease with heart failure and stage 1 through stage 4 chronic kidney disease, or unspecified chronic kidney disease (principal)
CPT/HCPCS: 80048

== ENCOUNTER 2022-04-05 15:51 | Outpatient (CLI) | payer MEDICARE, OTHER, SELFPAY ==
[2022-04-05 17:39] LABS: Blood Urea Nitrogen 35 mg/dL (8-23); Calcium 9.9 mg/dL (8.5-10.5); Carbon Dioxide 27 mmol/L (22-29); Chloride 91 mmol/L (98-107); Glomerular Filtration Rate 49.2 mL/min (90-130); Glucose 77 mg/dL (65-115); Magnesium 2.9 mg/dL (1.7-2.3); Osmolality Calculated 281 mOsm/kg (285-295); Sodium 132 mmol/L (136-145)
[2022-04-05 17:40] LABS: Anion Gap 18.2 (5-19); Potassium 4.2 mmol/L (3.5-5.1)
== END 2022-04-05 15:52 | disposition home or self-care (01) ==
LOC: LAB 15:54
PROVIDERS: PCP Nurse Practitioner Family; Visit Provider Family Medicine
DX: I13.0 Hypertensive heart and chronic kidney disease with heart failure and stage 1 through stage 4 chronic kidney disease, or unspecified chronic kidney disease (principal)
CPT/HCPCS: 80048; 83735

== ENCOUNTER → 2022-04-14 13:39 | Outpatient (BNVA) | payer MEDICARE, OTHER, SELFPAY | PROVIDERS: PCP Family Medicine; Visit Provider Family Medicine | DX: E11.9 Type 2 diabetes mellitus without complications (principal); E03.9 Hypothyroidism, unspecified; F19.20 Other psychoactive substance dependence, uncomplicated; R60.9 Edema, unspecified | CPT/HCPCS: 80053; 80061; 83036; 83735; 84443 ==

== ENCOUNTER 2022-05-01 17:23 | Inpatient (IN) | payer MEDICARE, OTHER, SELFPAY ==
[2022-05-01] VITALS (7 sets, daily range): BP systolic 99–108; BP diastolic 53–67; PULSE 85–98; RESP 15–22; TEMP 36.9; O2SAT 92–99; BMI 54.9
--- NOTE | 2022-05-01 18:26 | W.ED.WEAKNES ---
HPI - Weakness General: Chief complaint: Weakness Stated complaint: TREMORS; WEAKNESS Time Seen by Provider: 05/01/22 17:29 Source: patient Mode of arrival: EMS Limitations: no limitations History of Present Illness: This 71-year-old female with a history of CHF, A. fib, diabetes and obesity presents to the ER with worsening tremors of the upper and lower extremities. Patient notes that tremor started yesterday and got worse this morning that she cannot get out of bed. She is unable to put weight on her lower extremities. Patient typically mobilizes with a walker at home. She denies any prior history of anxiety or panic attacks. Besides the tremors, patient denies chest pain, shortness of breath, fever, vomiting or any other pertinent systemic symptoms. At rest, she appears jittery with intermittent tremors in both upper and lower extremities. Review of Systems General: Reports: 10 or more systems reviewed and unremarkable except in HPI and below Neuro: Reports: involuntary movements (Upper and lower extremities) and restless legs PFSH ED PFSH: Medical History (Updated 04/21/22 @ 14:53 by Piedad Sandhu MD) Acute kidney injury superimposed on chronic kidney disease Acute kidney injury superimposed on CKD Adrenal insufficiency Anasarca Anasarca Anasarca Anemia Atrial fibrillation Benign essential hypertension with target blood pressure below 140/90 Central hypothyroidism CHF (congestive heart failure) CHF exacerbation Chronic back pain Follows at pain clinic for periodic injections Chronic hyponatremia Colitis Congestive heart failure COVID-19 (~09/2020) Edema ESBL (extended spectrum beta-lactamase) producing bacteria infection Facet arthritis, degenerative, lumbar spine Fatigue Gastroenteritis History of anaphylaxis History of atrial fibrillation Intermittent, has not required long-term anticoagulation or focused treatment History of COVID-19 HTN (hypertension) Hx of atrial fibrillation, no current medication Hyperaldosteronism Hypokalemia Hypomagnesemia Hypophosphatemia 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 Increased nausea and vomiting Lumbar spondylolysis Metabolic acidosis Nausea vomiting and diarrhea OAB (overactive bladder) Obesity Obesity, morbid, BMI 50 or higher Obstructive sleep apnea KP (obstructive sleep apnea) Paroxysmal atrial fibrillation Pituitary macroadenoma with extrasellar extension Prediabetes Pulmonary hypertension PVD (peripheral vascular disease) Shock Stasis edema with ulcer and inflammation Steroid dependence Tachycardia Type 2 diabetes mellitus with other diabetic kidney complication Unsteady gait UTI (urinary tract infection) UTI (urinary tract infection) Venous (peripheral) insufficiency Volume overload VT (ventricular tachycardia) Surgical History H/O shoulder surgery History of hysterectomy History of pituitary surgery S/P insertion of spinal cord stimulator Family History Father Cancer pancreatic cancer Sister No problems noted. 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 No acute respiratory distress and no increased work of breathing. Cardio: COMMON NORMALS: regular rate, regular rhythm and No murmurs present (Cardio) RATE: regular rate RHYTHM: regular rhythm GI: COMMON NORMALS: Normal to inspection, nondistended, normoactive bowel sounds present and non-tender : COMMON NORMALS: Yes no CVA tenderness BLADDER/KIDNEY EXAM: Yes no CVA tenderness Back/Pelvis: COMMON NORMALS: no CVA tenderness and no thoracic nor lumbar tenderness Extremity: GENERAL: Yes normal exam except as noted OTHER: Bilateral pitting pedal edema. Neuro: COMMON NORMALS: patient oriented x3 and no focal motor deficits SENSORIUM/ORIENTATION: Yes alert OTHER: Intermittent involuntary movement of both upper and lower extremities. Psych: COMMON NORMALS: mental status grossly normal and cooperative Course Vital Signs: Vital signs: Vital Signs Temperature 98.4 F 05/01/22 17:28 Pulse Rate 93 05/01/22 18:47 Respiratory Rate 22 H 05/01/22 18:47 Blood Pressure 101/56 05/01/22 18:47 Pulse Oximetry 96 05/01/22 18:47 Oxygen Delivery Me thod 05/01/22 17:28 MDM - Weakness Medical Decision Making Medical decision making: Patient presents to the ER primarily because involuntary tremors in both upper and lower extremities that started yesterday and has persisted. It is at a point that patient can bear weight or mobilize because of the tremors. Given her past history of a pituitary adenoma, status post pituitary macroadenoma surgery, CT brain was obtained. Radiologist reports a 2.4 cm soft tissue density which is suspicious for a stable residual macroadenoma. Case discussed with hospitalist, Dr. Glover who recommends telemetry neurology consult. Patient care transferred to Dr. Mcfarlane at end of shift. Lab Data 05/01/22 19:51 05/01/22 19:51 Radiology Impressions Chest X-Ray 05/01/22 20:54 IMPRESSION: Cardiomegaly and mild pulmonary vascular congestion. Head CT 05/01/22 20:54 IMPRESSION: 1. Negative for intracranial hemorrhage. 2. Mild diffuse white matter disease likely reflecting chronic microvascular ischemic changes. 3. Left aspect of the sella again demonstrates a poorly visualized 2.4 cm soft tissue density, prior history indicates past history of transsphenoidal pituitary macroadenoma surgery. 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 Laboratory Results WBC 14.8 10^3/uL (4.0-10.0) H 05/01/22 19:51 RBC 5.24 10^6/uL (4.1-5.3) 05/01/22 19:51 Hgb 10.2 g/dL (11.5-15.3) L 05/01/22 19:51 Hct 38.1 % (37.0-47.0) 05/01/22 19:51 MCV 72.7 fl (81-99) L 05/01/22 19:51 MCH 19.5 pg (28.0-34.0) L 05/01/22 19:51 MCHC 26.8 g/dL (30.0-36.0) L 05/01/22 19:51 RDW 20.0 % (12.1-15.1) H 05/01/22 19:51 Plt Count 306 10^3/cmm (130-400) 05/01/22 19:51 MPV 10.1 fL (7.4-10.4) 05/01/22 19:51 Neut % (Auto) 65.7 % 05/01/22 19:51 Lymph % (Auto) 15.0 % 05/01/22 19:51 [place] % (Auto) 14.1 % 05/01/22 19:51 Eos % (Auto) 2.4 % 05/01/22 19:51 Baso % (Auto) 0.9 % 05/01/22 19:51 Neut # (Auto) 9.74 10^3/uL (1.8-7.7) H 05/01/22 19:51 Lymph # (Auto) 2.2 10^3/uL (0.8-4.8) 05/01/22 19:51 [place] # (Auto) 2.1 10^3/uL (0.2-0.9) H 05/01/22 19:51 Eos # (Auto) 0.4 10^3/uL (0.0-0.8) 05/01/22 19:51 Baso # (Auto) 0.1 10^3/uL (0.0-0.1) 05/01/22 19:51 Nucleated RBC % (auto) 0.2 % 05/01/22 19:51 Nucleated RBCs # 0.0 /100WBC 05/01/22 19:51 Sodium 130 mmol/L (136-145) L 05/01/22 19:51 Potassium 4.1 mmol/L (3.5-5.1) 05/01/22 19:51 Chloride 96 mmol/L (98-107) L 05/01/22 19:51 Carbon Dioxide 23 mmol/L (22-29) 05/01/22 19:51 Anion Gap 15.1 (5-19) 05/01/22 19:51 BUN 33 mg/dL (8-23) H 05/01/22 19:51 Creatinine 1.9 mg/dL (0.5-0.9) H 05/01/22 19:51 GFR Calculation 26.2 mL/min (90-130) L 05/01/22 19:51 Glucose 114 mg/dL (65-115) 05/01/22 19:51 Calculated Osmolality 278 mOsm/kg (285-295) L 05/01/22 19:51 Calcium 9.4 mg/dL (8.5-10.5) 05/01/22 19:51 Total Bilirubin 0.3 mg/dL (0.15-1.2) 05/01/22 19:51 AST 16 U/L (0-32) 05/01/22 19:51 ALT 26 U/L (0-33) 05/01/22 19:51 Alkaline Phosphatase 126 U/L (35-105) H 05/01/22 19:51 NT-Pro-B Natriuret Pep 222 pg/mL (0-125) H 05/01/22 19:51 Total Protein 5.9 g/dL (6.6-8.7) L 05/01/22 19:51 Albumin 3.3 g/dL (3.5-5.2) L 05/01/22 19:51 Globulin 2.6 g/dL (1.3-4.6) 05/01/22 19:51 Urine Color Yellow (Yellow) 05/01/22 18:38 Urine Appearance Clear (CLEAR) 05/01/22 18:38 Urine pH 5 (5-7) 05/01/22 18:38 Ur Specific [place] 1.015 (1.005-1.030) 05/01/22 18:38 Urine Protein Neg (Negative) 05/01/22 18:38 Urine Glucose (UA) 2+ (Normal) H 05/01/22 18:38 Urine Ketones Negative (Negative) 05/01/22 18:38 Urine Blood Neg (Negative) 05/01/22 18:38 Urine Nitrate Negative (Negative) 05/01/22 18:38 Urine Bilirubin Neg (Negative) 05/01/22 18:38 Urine Urobilinogen Neg mg/dL (Negative) 05/01/22 18:38 Ur Leukocyte Esterase Negative (Negative) 05/01/22 18:38 Discharge Plan Discharge Condition: Stable Prescriptions: No Action epinephrine [EpiPen 2-Nabeel] 0.3 mg/0.3 mL auto-injector 0.3 mg IM Q10M PRN (Reason: anaphylaxis) Qty: 2 3RF Rx Instructions: for 3 doses prednisone 5 mg tablet 5 mg PO DAILY Qty: 30 1RF (DME) Pharmacist Choice Strip See Rx Instructions .Route Qty: 50 2RF Rx Instructions: AC and HS (DME) blood-glucose meter,continuous Misc See Rx Instructions .Route Qty: 1 0RF Rx Instructions: As directed one meter with all necessary supplies (DME) cpap mask and supplies See Rx Instructions .Route .MEDSUPPLY Qty: 1 0RF Rx Instructions: As directed levothyroxine 175 mcg tablet 175 mcg PO QAM 90 Days Qty: 90 1RF pregabalin [Lyrica] 150 mg capsule 150 mg PO BID 90 Days Qty: 180 1RF diltiazem HCl 120 mg capsule,extended release 24 hr 120 mg PO DAILY Qty: 90 1RF losartan 25 mg tablet 25 mg PO DAILY Qty: 90 1RF (DME) diabetic supplies, miscellan. Misc See Rx Instructions .Route Qty: 1 0RF Rx Instructions: As directed polyethylene glycol 3350 [Miralax] 17 gram/dose Powder 17 g PO DAILY PRN (Reason: Constipation) metolazone 5 mg Tablet 5 mg PO DAILY PRN (Reason: Weight Gain) spironolactone 25 mg tablet 12.5 mg PO DAILY potassium chloride 20 mEq tablet,ER particles/crystals 20 meq PO BID hydroxyzine pamoate 25 mg capsule 25 mg PO BID PRN (Reason: Anxiety) Magtab 84 mg tablet extended release 84 mg PO QAM Eliquis 5 mg tablet 5 mg PO BID bumetanide 2 mg tablet 2 mg PO BID metoprolol tartrate 25 mg tablet 25 mg PO BID Qty: 60 0RF pramipexole [Mirapex] 0.5 mg tablet 1 mg PO BEDTIME pantoprazole [Protonix] 40 mg tablet,delayed release (DR/EC) 40 mg PO QAM Jardiance 10 mg tablet 10 mg PO QAM Ozempic 0.25 mg or 0.5 mg(2 mg/1.5 mL) pen injector 1 mg SUBCUT Q7D Rx Instructions: on monday Referrals: Piedad Sandhu MD [Primary Care Provider] - Coding Level of Care Code ED Carton Filler for Chg Fwd Exam Comprehensive
[2022-05-01] MEDS: FUROsemide 10 mg/mL SDV 10mL 60 MG IVP (18:39)
[2022-05-01] MEDS: LORazepam 2 mg/mL INJ 1 mL 1 MG IVP (18:39)
[2022-05-01 18:49] LABS: Add Urine Microscopic? NO; Charge for UA Resulting for Rev
[2022-05-01 18:51] LABS: Blood Urine Neg (Negative); Glucose Urine UA 2+ (Normal); Ketones Urine Negative (Negative); Nitrate Urine Negative (Negative); Protein Urine Neg (Negative); Specific Gravity, Urine 1.015 (1.005-1.030); Urine Appearance Clear (CLEAR); Urine Color Yellow (Yellow); pH Urine 5 (5-7)
[2022-05-01 18:52] LABS: Bilirubin Urine Neg (Negative); Leukocyte Esterase Urine Negative (Negative); Urobilinogen Urine Neg (Negative)
[2022-05-01 20:05] LABS: Basophils # 0.1 10^3/uL (0.0-0.1); Basophils % 0.9 %; Eosinophils # 0.4 10^3/uL (0.0-0.8); Eosinophils % 2.4 %; Hematocrit 38.1 % (37.0-47.0); Hemoglobin 10.2 g/dL (11.5-15.3); Lymphocytes # 2.2 10^3/uL (0.8-4.8); Mean Corpuscular HGB Conc 26.8 g/dL (30.0-36.0); Mean Corpuscular Hemoglobin 19.5 pg (28.0-34.0); Mean Corpuscular Volume 72.7 fl (81-99); Mean Platelet Volume 10.1 fL (7.4-10.4); Monocytes # 2.1 10^3/uL (0.2-0.9); Monocytes % 14.1 %; Neutrophils # 9.74 10^3/uL (1.8-7.7); Neutrophils % 65.7 %; Nucleated Red Blood Cells % 0.2 %; Platelet Count 306 10^3/cmm (130-400); Red Blood Count 5.24 10^6/uL (4.1-5.3); White Blood Count 14.8 10^3/uL (4.0-10.0)
[2022-05-01 20:27] LABS: Alanine Aminotransferase 26 U/L (0-33); Albumin Level 3.3 g/dL (3.5-5.2); Alkaline Phosphatase 126 U/L (35-105); Anion Gap 15.1 (5-19); Aspartate Amino Transferase 16 U/L (0-32); Blood Urea Nitrogen 33 mg/dL (8-23); Calcium 9.4 mg/dL (8.5-10.5); Carbon Dioxide 23 mmol/L (22-29); Chloride 96 mmol/L (98-107); Globulin 2.6 g/dL (1.3-4.6); Glomerular Filtration Rate 26.2 mL/min (90-130); Glucose 114 mg/dL (65-115); Osmolality Calculated 278 mOsm/kg (285-295); Potassium 4.1 mmol/L (3.5-5.1); Sodium 130 mmol/L (136-145); Total Bilirubin 0.3 mg/dL (0.15-1.2); Total Protein 5.9 g/dL (6.6-8.7)
--- NOTE | 2022-05-01 20:54 | CTR_ITS ---
PROCEDURE INFORMATION: Exam: CT Head Without Contrast Exam date and time: 05/01/2022 9:42 PM Age: 71 years old Clinical indication: Speech disturbance; Additional info: Blurred vision TECHNIQUE: Imaging protocol: Computed tomography of the head without contrast. Radiation optimization: All CT scans at this facility use at least one of these dose optimization techniques: automated exposure control; mA and/or kV adjustment per patient size (includes targeted exams where dose is matched to clinical indication); or iterative reconstruction. Other protocol: This patient has received 2 known CTs and 0 known cardiac nuclear medicine studies in the 12 months prior to the current study. COMPARISON: CT head wo con* [id number] 01/26/2021 2:09 PM RADIATION DOSE METRICS: Total DLP (mGy-cm): 1211.28 FINDINGS: Brain: Mild diffuse white matter disease likely reflecting chronic microvascular ischemic changes. Cerebral ventricles: No ventriculomegaly. Pituitary gland and sella: Left aspect of the sella again demonstrates a poorly visualized 2.4 cm soft tissue density, prior history indicates past history of transsphenoidal pituitary macroadenoma surgery. 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 Paranasal sinuses: See Pituitary gland and sella finding. Mastoid air cells: Visualized mastoid air cells are well aerated. Bones/joints: Unremarkable. No acute fracture. Soft tissues: Unremarkable. CT/CT head wo con* [id number] IMPRESSION: 1. Negative for intracranial hemorrhage. 2. Mild diffuse white matter disease likely reflecting chronic microvascular ischemic changes. 3. Left aspect of the sella again demonstrates a poorly visualized 2.4 cm soft tissue density, prior history indicates past history of transsphenoidal pituitary macroadenoma surgery. 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
--- NOTE | 2022-05-01 20:54 | XRR_ITS ---
PROCEDURE INFORMATION: Exam: XR Chest Exam date and time: 05/01/2022 9:32 PM Age: 71 years old Clinical indication: Dyspnea; Additional info: Shortness of breath TECHNIQUE: Imaging protocol: Radiologic exam of the chest. Views: 1 view. COMPARISON: CR XR chest 1V portable [id number] 02/27/2022 9:45 AM FINDINGS: Lungs: See Heart/Mediastinum finding. Pleural spaces: Unremarkable. No pleural effusion. No pneumothorax. Heart/Mediastinum: Cardiomegaly and mild pulmonary vascular congestion. Bones/joints: Unremarkable. XR/XR chest 1V portable [id number] IMPRESSION: Cardiomegaly and mild pulmonary vascular congestion.
[2022-05-01 21:25] LABS: NT Pro B Type Natriuretic Pept 222 pg/mL (0-125)
--- NOTE | 2022-05-01 23:05 | P.HP_ITS ---
Providers/Chief Complaint Admitting Physician: Eddie Glover MD Primary Care Provider: Piedad Sandhu MD Chief Complaint: TREMORS; WEAKNESS History of Present Illness Carolyn Alexander is a 71-year-old female with a past with a past medical history significant for chronic congestive heart failure, atrial fibrillation, hypertension, hypopituitarism, obstructive sleep apnea, and pulmonary hy pertension who presents with diffuse weakness x1 day. She also endorses associated symptoms of resting tremors in all 4 extremities with onset earlier today. She denies prior history of tremors. She reports weakness is worse in her legs. She states that when she tries to stand up her legs just give out underneath her. At baseline, she typically uses a walker. She denies other aggravating or alleviating factors. Patient denies fevers, chills, chest pain or shortness of breath. Patient was evaluated by teleneurologist Dr Frances from [facility] who felt patient's tremors are likely functional and should get better with time. Review of Systems Narrative: Positive for ongoing bilateral blurry vision, otherwise a complete review of systems was obtained and is negative except as stated in HPI. Medications/Allergies Home Medications Medication Instructions Recorded Confirmed Last Taken Type epinephrine 0.3 mg/0.3 mL 0.3 mg (0.3 mL) IM Q10M PRN 04/20/20 04/21/22 Unknown Rx injection, auto-injector (EpiPen anaphylaxis #2 ea 2-Nabeel) diabetic supplies, miscellan. #1 ea 01/21/21 04/21/22 Unknown Rx blood sugar diagnostic (Pharmacist #50 ea 03/04/21 04/21/22 Unknown Rx Choice Glucose Test Strips) blood-glucose meter,continuous #1 ea 03/04/21 04/21/22 Unknown Rx polyethylene glycol 3350 17 17 g PO DAILY PRN Constipation 05/05/21 04/21/22 01/11/22 History gram/dose oral powder (Miralax) empagliflozin 10 mg tablet 10 mg PO QAM 08/02/21 04/21/22 02/23/22 History (Jardiance) pantoprazole 40 mg tablet,delayed 40 mg PO QAM 08/02/21 04/21/22 02/23/22 History release (Protonix) pramipexole 0.5 mg tablet (Mirapex) 1 mg PO BEDTIME 05/12/1604/21/22 02/22/22 History semaglutide 0.25 mg or 0.5 mg (2 1 mg SUBCUT Q7D 08/02/21 04/21/22 02/20/22 History mg/1.5 mL) subcutaneous pen injector (Ozempic) cpap mask and supplies #1 ea 09/14/21 04/21/22 Unknown Rx levothyroxine 175 mcg tablet 175 mcg PO QAM 90 days #90 tabs 10/13/21 04/21/22 02/23/22 Rx pregabalin 150 mg capsule (Lyrica) 150 mg PO BID 90 days #180 caps 01/31/22 04/21/22 02/23/22 Rx apixaban 5 mg tablet (Eliquis) 5 mg PO BID 02/23/22 04/21/22 02/23/22 History bumetanide 2 mg tablet 2 mg PO BID 02/23/22 04/21/22 02/23/22 History 4 mg hydroxyzine pamoate 25 mg capsule 25 mg PO BID PRN Anxiety 02/23/22 04/21/22 Unknown History magnesium L-lactate 84 mg 84 mg PO QAM 02/23/22 04/21/22 02/23/22 History tablet,extended release (Magtab) metolazone 5 mg tablet 5 mg PO DAILY PRN Weight Gain 02/23/22 04/21/22 02/23/22 History potassium chloride 20 mEq 20 meq PO BID 02/23/22 04/21/22 02/23/22 History tablet,extended release(part/cryst) spironolactone 25 mg tablet 12.5 mg PO DAILY 02/23/22 04/21/22 02/23/22 History metoprolol tartrate 25 mg tablet 25 mg PO BID #60 tabs 02/27/22 04/21/22 Unknown Rx diltiazem HCl 120 mg capsule,24 120 mg PO DAILY #90 caps 04/01/22 04/21/22 Unknown Rx hr,extended release losartan 25 mg tablet 25 mg PO DAILY #90 tabs 04/01/22 04/21/22 Unknown Rx prednisone 5 mg tablet 5 mg PO DAILY #30 tabs 04/21/22 04/21/22 Unknown Rx Allergies Allergy/AdvReac Type Severity Reaction Status Date / Time acetaminophen [From Tylenol] Allergy ALGY-Hives Verified 01/17/22 08:27 azithromycin Allergy ALGY-Anaphy Verified 01/17/22 08:27 laxis benzocaine Allergy ALGY-Hives Verified 01/17/22 08:27 butamben [From Cetacaine] Allergy ALGY-Swell Verified 01/17/22 08:27 Lip/Tongue/Throat codeine Allergy ALGY-Hives Verified 01/17/22 08:27 fentanyl Allergy ALGY-Anaphy Verified 01/17/22 08:27 laxis hydrocodone [From Vicodin] Allergy ALGY-Hives Verified 01/17/22 08:27 hydromorphone [From Dilaudid] Allergy ADR-Vomitin Verified 01/17/22 08:27 g Iodinated Contrast Media Allergy ALGY-Anaphy Verified 01/17/22 08:27 laxis liothyronine Allergy ADR-Nausea Verified 01/17/22 08:27 meperidine [From Demerol] Allergy Unknown Verified 01/17/22 08:27 morphine Allergy ALGY-Anaphy Verified 01/17/22 08:27 laxis nitrofurantoin Allergy ALGY-Joint Verified 01/17/22 08:27 [From Macrobid] Pain oxycodone [From Percocet] Allergy ALGY-Hives Verified 01/17/22 08:27 penicillin V Allergy ALGY-Hives Verified 01/17/22 08:27 Penicillins Allergy Unknown Verified 01/17/22 08:27 Phenothiazines Allergy ALGY-Anaphy Verified 01/17/22 08:27 laxis procaine Allergy ALGY-Hives Verified 01/17/22 08:27 prochlorperazine Allergy ALGY-Anaphy Verified 01/17/22 08:27 [From Compazine] laxis Sulfa (Sulfonamide Allergy Unknown Verified 01/17/22 08:27 Antibiotics) tetracaine [From Cetacaine] Allergy ALGY-Swell Verified 01/17/22 08:27 Lip/Tongue/Throat PFSH Acute PFSH: Medical History Acute kidney injury superimposed on chronic kidney disease Acute kidney injury superimposed on CKD Adrenal insufficiency Anasarca Anasarca Anasarca Anemia Atrial fibrillation Benign essential hypertension with target blood pressure below 140/90 Central hypothyroidism CHF (congestive heart failure) CHF exacerbation Chronic back pain Follows at pain clinic for periodic injections Chronic hyponatremia Colitis Congestive heart failure COVID-19 (~09/2020) Edema ESBL (extended spectrum beta-lactamase) producing bacteria infection Facet arthritis, degenerative, lumbar spine Fatigue Gastroenteritis History of anaphylaxis History of atrial fibrillation Intermittent, has not required long-term anticoagulation or focused treatment History of COVID-19 HTN (hypertension) Hx of atrial fibrillation, no current medication Hyperaldosteronism Hypokalemia Hypomagnesemia Hypophosphatemia 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 Increased nausea and vomiting Lumbar spondylolysis Metabolic acidosis Nausea vomiting and diarrhea OAB (overactive bladder) Obesity Obesity, morbid, BMI 50 or higher Obstructive sleep apnea KP (obstructive sleep apnea) Paroxysmal atrial fibrillation Pituitary macroadenoma with extrasellar extension Prediabetes Pulmonary hypertension PVD (peripheral vascular disease) Shock Stasis edema with ulcer and inflammation Steroid dependence Tachycardia Type 2 diabetes mellitus with other diabetic kidney complication Unsteady gait UTI (urinary tract infection) UTI (urinary tract infection) Venous (peripheral) insufficiency Volume overload VT (ventricular tachycardia) Surgical History H/O shoulder surgery History of hysterectomy History of pituitary surgery S/P insertion of spinal cord stimulator Family History Father Cancer pancreatic cancer Sister No problems noted. 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 Slightly anxious appearing. Head: Normocephalic. Atraumatic. EOM intact. Neck: No JVD. Cardiovascular: No gallops. No murmurs. Trace peripheral edema. Lungs: Clear to auscultation, no use of accessory muscles, no crackles or wheez es. Skin: No jaundice. No rashes. Abdomen: Normal bowel sounds, abdomen soft and nontender. Genito Urinary: Genital exam not performed since complaints not related. Rectal: Rectal exam not performed since no symptoms indicated blood loss. Extremities: No cyanosis or clubbing. Musculoskeletal: No swollen or erythematous joints. Neurological: Moves all 4 extremities. Intermittent resting tremor in all 4 extremities. Urinary Catheter Management: [place]: Cath Placed During This Visit: yes Urinary Catheter Date of Insertion: 05/01/22 Urinary Catheter Time of Insertion: 18:30 Data 05/01/22 19:51 05/01/22 19:51 A&P Assessment and plan (1) Weakness: Etiology unclear, differential favors polypharmacy versus acute kidney injury Treat underlying kidney injury UA not consistent with UTI Chest x-ray with mild pulmonary edema without definite infiltrate Supportive care Physical and Occupational Therapy ordered (2) Coarse tremors: Evaluated by teleneurology, presentation favored to be functional Head CT negative for acute findings, demonstrating stable 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a Supportive care (3) RODRIGUE (acute kidney injury): Likely medication induced Hold home Bumex, reassess in a.m. Hold home metolazone Hold home losartan Trend renal function Avoid nephrotoxins (4) Hypothyroid: Continue Synthroid (5) Diabetes: On outpatient Ozempic Sliding scale insulin correction Avoid hypoglycemia (6) Atrial fibrillation: Continue apixaban Continue diltiazem Continue metoprolol (7) CHF (congestive heart failure): Euvolemic on exam Continue beta-isaiah Consider restarting diuretics in a.m. pending renal function Qualifiers: Heart failure type: unspecified Heart failure chronicity: acute Qualified Code(s): I50.9 - Heart failure, unspecified Plan DVT prophylaxis: Apixaban CODE STATUS: Full code Attestations Medical Necessity Statement*: Patient presents with generalized weakness associated with resting tremor in all 4 extremities, found to have acute kidney injury with hospitalization for work-up and treatment not expected to cross 2 midnights. Coding Level of Care Code Acute Code for Chg Fwd Diagnoses Weakness R53.1 Coarse tremors G25.2 RODRIGUE (acute kidney injury) N17.9 Hypothyroid E03.9 Diabetes E11.9 Atrial fibrillation I48.91 CHF (congestive heart failure) I50.9 Heart failure type: unspecified Heart failure chronicity: acute
[2022-05-02] VITALS (30 sets, daily range): BP systolic 76–133; BP diastolic 33–105; PULSE 86–181; RESP 15–38; TEMP 36.4–37.1; O2SAT 90–97
--- NOTE | 2022-05-02 01:22 | PC.NURSE ---
ADMIT NOTE Pt received to room from ER at 0100. Is alert and oriented. Says she started having tremors of extremities yesterday but got worse today. Says she fell in the floor this morning when her legs buckled under her. Usually able to ambulate with walker. Is quite obese. Has pitting edema to BLE with redness to bilat lower legs. Warm to touch without any open areas noted. Received IV Lasix in the ER and has a Zurita in place. Skin tear to right arm that she says happened in the ER. Optifoam dressing applied. Has several scabbed sores & some bruises to arms. Abrasion to left elbow. RN at bedside doing admission assessment. VS check done.
[2022-05-02] MEDS: pantoprazole DR 40 mg Tablet PO (05:10)
[2022-05-02] MEDS: magnesium lactate 84 mg Tablet PO (05:10)
[2022-05-02] MEDS: levothyroxine 175 mcg Tablet PO (05:10)
[2022-05-02 06:34] LABS: Glucose Point of Care 112 mg/dL (70-110)
[2022-05-02] MEDS: apixaban 5 mg Tablet PO ×2 (08:17→17:21)
[2022-05-02] MEDS: potassium chloride ER 20 mEq Tablet PO ×2 (08:17→17:21)
[2022-05-02] MEDS: pregabalin 150 mg Capsule PO (08:17)
[2022-05-02] MEDS: predniSONE 5 mg Tablet PO (08:17)
[2022-05-02] MEDS: dilTIAZem ER (24HR) 120 mg Capsule PO (08:17)
--- NOTE | 2022-05-02 10:52 | US_ITS ---
WS: [id number] RENAL ULTRASOUND HISTORY: RODRIGUE COMPARISON: 01/27/2021 TECHNIQUE: 2-D and color Doppler imaging of the kidney submitted. Technically very limited evaluation of the kidneys. Increased body habitus. Right kidney: 9.2 cm x 4.4 cm x 4.4 cm. Kidneys low normal size. No hydronephrosis. Mass would be difficult to exclude. Left kidney: 10.4 cm x 4.3 cm x 5.5 cm. Normal size kidney. No hydronephrosis. Mass would be difficult to exclude. Aorta: Not visualized. Urinary Bladder: Nondistended. US/US renal BI* [id number] IMPRESSION: 1. Technically very limited evaluation of the kidneys. 2. No hydronephrosis. 3. Renal mass would be difficult to exclude.
[2022-05-02 11:28] LABS: Glucose Point of Care 172 mg/dL (70-110)
[2022-05-02 11:55] LABS: Cortisol Random 0.68 ug/dL (2.47-19.5)
[2022-05-02] MEDS: insulin lispro 100 unit/1 mL SUBCUT ×2 (12:37→18:12)
--- NOTE | 2022-05-02 15:24 | XR_ITS ---
WS: [id number] XR chest 1V portable [id number] REASON FOR EXAM: dyspnea FINDINGS: Moderate cardiomegaly.. Mild to moderate tortuosity and ectasia thoracic aorta without aneurysmal dilatation. The apparent central vascular congestion and prominence of the lower interstitial bronchovascular mar kings is likely due to the relatively poor inspiratory effort. No definite acute pulmonary parenchyma l changes are noted. The chest is likely unchanged compared to the examination of 05/01/2022. XR/XR chest 1V portable [id number] IMPRESSION: Stable abnormal chest. No definite acute interval change.
--- NOTE | 2022-05-02 15:25 | ECG_ITS ---
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 Measurements Intervals [place] Rate: 107 P: 0 GA: 0 QRS: 203 QRSD: 90 T: 137 QT: 348 QTc: 466 Interpretive Statements ATRIAL FLUTTER WITH RAPID VENTRICULAR RESPONSE POSSIBLE RIGHT VENTRICULAR HYPERTROPHY POSSIBLE ANTERIOR MYOCARDIAL INFARCTION , OF INDETERMINATE AGE Compared to ECG 02/27/2022 11:20:54 ST (T wave) deviation now present Sinus rhythm no longer present Left-axis deviation no longer present Myocardial infarct finding still present Electronically Signed On 05-02-2022 20:09:21 GEOGRAPHY PROFESSOR by Jaki Leavitt M.D. [id number]
--- NOTE | 2022-05-02 15:32 | ECG_ITS ---
[facility] Test Date: 2022-05-02 Pat Name: Carolyn Alexander Department: Room: 277 Gender: Female Corporate Analyst: : 1950 Requested By: Jarvis Cormier Order Number: [id number] Laina MD: Jaki Leavitt M.D. Measurements Intervals [place] Rate: 145 P: 0 FL: 0 QRS: -55 QRSD: 92 T: 64 QT: 278 QTc: 432 Interpretive Statements ATRIAL FLUTTER WITH RAPID VENTRICULAR RESPONSE LOW QRS VOLTAGE IN PRECORDIAL LEADS [QRS DEFLECTION < 1.0 mV IN CHEST LEADS] LEFT ANTERIOR FASCICULAR BLOCK [QRS AXIS <= -45, QR IN I, RS IN II] POSSIBLE ANTERIOR MYOCARDIAL INFARCTION , PROBABLY OLD [30 ms Q WAVE IN V3/V4, OR R < 0.2 mV IN V4] Compared to ECG 02/27/2022 11:20:54 Left anterior fascicular block now present Sinus rhythm no longer present Left-axis deviation no longer present Myocardial infarct finding still present Electronically Signed On 05-02-2022 20:12:23 ROUTER SETTER by Jaki Leavitt M.D. [id number]
[2022-05-02] MEDS: ALPRAZolam 0.5 mg Tablet PO ×2 (15:57→22:58)
[2022-05-02 16:08] LABS: Magnesium 2.9 mg/dL (1.7-2.3)
[2022-05-02] MEDS: dilTIAZem 5 mg/mL SDV 5 mL IVP ×2 (16:22→17:20)
[2022-05-02 16:53] LABS: Glucose Point of Care 209 mg/dL (70-110)
--- NOTE | 2022-05-02 17:18 | PM.PN ---
Subjective Subjective: Continues feeling weak. Inability to get up or ambulate. Continuing to experience coarse tremors when moving her limbs. Vitals/I&O/Wt Last Vital Signs Temp 98.4 F 05/02/22 16:00 Pulse 144 H 05/02/22 16:00 Resp 18 05/02/22 16:00 BP 128/67 05/02/22 16:00 Pulse Ox 94 05/02/22 16:00 O2 Del Method 05/02/22 16:00 O2 Flow Rate 2 05/02/22 15:45 05/02/22 05/02/22 05/02/22 06:59 14:59 22:59 Intake Total 120 / 120 240 / 240 Output Total 1400 / 1400 Balance -1280 / -1280 240 / 240 Weight last 48 hrs Weight 149.685 kg Physical Exam Narrative: by her side. Const: COMMON NORMALS: patient oriented x3 and alert GENERAL APPEARANCE: cooperative NUTRITIONAL APPEARANCE: obese morbidly obese ORIENTATION/CONSCIOUSNESS: Yes awake HENMT: COMMON NORMALS: oropharynx normal Neck/C-Spine: COMMON NORMALS: no JVD Resp: COMMON NORMALS: normal respiratory effort and clear to auscultation bilaterally AUSCULTATION: clear to auscultation bilaterally Cardio: COMMON NORMALS: no JVD, regular rhythm, S1 normal heart sound present, S2 normal heart sound present and No murmurs present (Cardio) RHYTHM: regular rhythm HEART SOUNDS: S1 normal heart sound present and S2 normal heart sound present GI: COMMON NORMALS: Normal to inspection, nondistended, normoactive bowel sounds present, Soft to palpation and non-tender PALPATION: Yes Soft to palpation Extremity: GENERAL: Yes edema (1+) OTHER: Proximal muscle weakness all around. Coarse tremors which appear to come and go on extremities, more so when she is moving, but not necessarily. No rigidity. Neuro: COMMON NORMALS: patient oriented x3 and moves all extremities SENSORIUM/ORIENTATION: Yes alert Skin: OTHER: Faint pinkish erythema of lower bilateral shins and areas of edema. No weeping. No open wounds. Urinary Catheter Management: Zurita: Cath Placed During This Visit: yes Reason for Continuing Indwelling Catheter: Other Urinary Catheter Date of Insertion: 05/01/22 Urinary Catheter Time of Insertion: 18:30 Data 05/01/22 19:51 05/01/22 19:51 A&P Assessment and plan (1) Weakness: Admission note appreciated. She continues to be weak. Appreciate a note regarding neurologist assessment. He is assessed by PT as well. Reviewed her medications. Discussed with her possible causes including toxicity of medications including pregabalin in setting of acute kidney injury. Abdomen occasional that may be contributing include prednisone which could lead to proximal weakness, although she cannot go without steroids due to pituitary insufficiency. Discussing with her she was recently also converted from Decadron 1 mg to prednisone 5 mg which is a somewhat lower dose. Blood pressures discussed with her are soft. Consideration could be for a degree of adrenal insufficiency with noted mild hyponatremia. Serum cortisol requested and is low. Discussed increasing steroid dose to 7 mg for now with prednisone. States that was changed away from Decadron due to worsening of her vision. Pramipexole could be another medication contributing. Hold Lyrica. Also noted to have creatinine up to 1.9. Discussed with her and her . She reports had decreased urine output on Monday. Etiology unclear, differential favors polypharmacy versus acute kidney injury Treat underlying kidney injury UA not consistent with UTI Chest x-ray with mild pulmonary edema without definite infiltrate Supportive care Physical and Occupational Therapy ordered (2) Paroxysmal atrial fibrillation with RVR: This afternoon heart rate came up to 145. During that time also having symptoms with dyspnea. Has been off diuretics. Check stat chest x-ray, but without obvious pulmonary edema. Requested check EKG, interpreting results in atrial fibrillation with RVR pending cardiology read. Despite receiving usual dose of diltiazem this morning. Here was also started Toprol, although do not see it on her home medication list and this was not administered. Earlier blood pressure was soft. Discussed with her nurse, blood pressure rechecked. Blood pressure 128/67. Due to earlier self blood pressure, elevated heart rate requested monitoring with cardiac monitoring due to risk of worsening heart rate or bradycardia with treatment of A-fib with RVR. Continue every 4 hours sinus for blood pressure checks. Requested 5 mg Cardizem IV. On reassessment 30 minutes later heart rate still staying in 120s. Requested additional dose 5 mg Cardizem IV. Continue monitoring. Continue oral Cardizem. Hold metoprolol for now as it does not appear that she takes it as well as so as not to drop her blood pressure too low with combination CC and BBs. Continue Eliquis. 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 For now hold diuretics, although did have dyspnea but this is likely related to tachycardia. Monitor for signs of fluid overload. Likely medication induced Hold home Bumex, reassess in a.m. Hold home metolazone Hold home losartan Trend renal function Avoid nephrotoxins (5) Hypothyroid: Continue Synthroid (6) Diabetes: On outpatient Ozempic Sliding scale insulin correction Avoid hypoglycemia (7) Atrial fibrillation: (8) CHF (congestive heart failure): Mild lower extremity edema bilaterally above ankles. Minimal pinkish erythema. Faint. No significant warmth. Not suggestive of infectious cellulitis, but reassess. Qualifiers: Heart failure chronicity: acute Heart failure type: unspecified Qualified Code(s): I50.9 - Heart failure, unspecified Plan DVT prophylaxis: Apixaban CODE STATUS: Full code Attestations Medical Necessity Statement*: Continue admission for assessment management of symptomatic A-fib with RVR, assessment of new generalized weakness, tremor, inability to get up or ambulate. Coding Level of Care Code 77183 High MDM includes risk/complexity, reviewing previous or external records, reviewing test results, ordering lab/other test(s), speaking with independent historian (other than patient) and independently interpretating test(s) (not separately recorded) and High Time for a total of 55 minutes, includes reviewing past or interval history, examining/interviewing patient, placing orders, discussing plan of care with staff, documenting encounter and coordinating care Diagnoses Weakness R53.1 Paroxysmal atrial fibrillation with RVR I48.0 Coarse tremors G25.2 RODRIGUE (acute kidney injury) N17.9 Hypothyroid E03.9 Diabetes E11.9 Atrial fibrillation I48.91 CHF (congestive heart failure) I50.9 Heart failure chronicity: acute Heart failure type: unspecified
[2022-05-02] MEDS: metoprolol tartrate 25 mg Tablet PO (17:21)
--- NOTE | 2022-05-02 19:23 | PC.NURSE ---
Earlier in shift patient c/o SOB, this nurse went to assess found patient to be slightly hypoxic and having difficult time breathing, physician notified with orders received and carried out. Patient found to be in a-fib with rvr, have been monitoring patient closely with physician. Patient is currently stable, resting in bed, AAOx4, BP soft with elevated HR. Oncoming nurse given report bedside. Room clean and clutter free with call light within reach and spouse bedside.
[2022-05-02] MEDS: digoxin 250 mcg/ml INJ 2 mL 125 MCG IVP (19:37)
--- NOTE | 2022-05-02 19:59 | PC.NURSE ---
TRANSFER TO ICU Pt transferred to ICU via bed. Report was called by day shift nurse. No c/o on transfer but not happy she is having to go
[2022-05-02] MEDS: hydrocortisone 100 mg/2 mL SDV IVP (20:45)
[2022-05-02 21:30] LABS: Glucose Point of Care 131 mg/dL (70-110)
[2022-05-02] MEDS: pramipexole 0.25 mg Tablet 1 MG PO (22:58)
[2022-05-03] VITALS (218 sets, daily range): BP systolic 83–133; BP diastolic 50–104; PULSE 101–160; RESP 12–38; TEMP 36.4–36.5; O2SAT 68–100
[2022-05-03 03:48] LABS: Basophils # 0.1 10^3/uL (0.0-0.1); Basophils % 0.8 %; Eosinophils # 0.1 10^3/uL (0.0-0.8); Eosinophils % 0.7 %; Hemoglobin 10.4 g/dL (11.5-15.3); Lymphocytes # 0.5 10^3/uL (0.8-4.8); Lymphocytes % 5.4 %; Mean Corpuscular HGB Conc 28.1 g/dL (30.0-36.0); Mean Platelet Volume 10.2 fL (7.4-10.4); Monocytes # 0.4 10^3/uL (0.2-0.9); Monocytes % 4.8 %; Neutrophils # 7.86 10^3/uL (1.8-7.7); Neutrophils % 85.8 %; Nucleated Red Blood Cells % 0 %; Platelet Count 283 10^3/cmm (130-400); Red Blood Count 5.21 10^6/uL (4.1-5.3); Red Cell Distribution Width 19.9 % (12.1-15.1); White Blood Count 9.2 10^3/uL (4.0-10.0)
[2022-05-03 04:27] LABS: Anion Gap 13.9 (5-19); Blood Urea Nitrogen 19 mg/dL (8-23); Calcium 8.8 mg/dL (8.5-10.5); Carbon Dioxide 24 mmol/L (22-29); Chloride 100 mmol/L (98-107); Glomerular Filtration Rate 49.2 mL/min (90-130); Glucose 209 mg/dL (65-115); Magnesium 2.5 mg/dL (1.7-2.3); Osmolality Calculated 284 mOsm/kg (285-295); Phosphorus 2.9 mg/dL (2.5-4.5); Potassium 4.9 mmol/L (3.5-5.1); Sodium 133 mmol/L (136-145)
--- NOTE | 2022-05-03 04:58 | ECG_ITS ---
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 Measurements Intervals [place] Rate: 123 P: 0 FL: 0 QRS: -66 QRSD: 100 T: 62 QT: 291 QTc: 416 Interpretive Statements ATRIAL FLUTTER WITH RAPID VENTRICULAR RESPONSE LOW QRS VOLTAGE IN EXTREMITY LEADS [QRS DEFLECTION < 0.5 mV IN LIMB LEADS] LEFT ANTERIOR FASCICULAR BLOCK [QRS AXIS <= -45, QR IN I, RS IN II] POSSIBLE ANTERIOR MYOCARDIAL INFARCTION , PROBABLY OLD [30 ms Q WAVE IN V3/V4, OR R < 0.2 mV IN V4] Compared to ECG 05/02/2022 16:47:37 Low QRS voltage now present Left anterior fascicular block now present Myocardial infarct finding still present Electronically Signed On 05-03-2022 7:08:57 ECOMMERCE MARKETING SPECIALIST by Bahman Rowland M.D. [id number]
[2022-05-03] MEDS: levothyroxine 175 mcg Tablet PO (06:34)
[2022-05-03] MEDS: magnesium lactate 84 mg Tablet PO (06:34)
[2022-05-03] MEDS: pantoprazole DR 40 mg Tablet PO (06:34)
[2022-05-03] MEDS: dilTIAZem ER (24HR) 120 mg Capsule PO ×2 (08:44→17:41)
[2022-05-03] MEDS: apixaban 5 mg Tablet PO ×2 (08:44→17:09)
[2022-05-03] MEDS: potassium chloride ER 20 mEq Tablet PO ×2 (08:44→17:09)
[2022-05-03] MEDS: insulin lispro 100 unit/1 mL SUBCUT ×3 (08:50→17:41)
[2022-05-03 08:55] LABS: Glucose Point of Care 156 mg/dL (70-110)
--- NOTE | 2022-05-03 10:16 | PC.CHAP ---
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 broomcorn scraper visit [] Patient/Family/Request visit [] Outpatient visit [] Follow-up visit [] Physician referral [] Code/Alert [x] Routine visit [] Staff referral [] Actively dying [] Patient sleeping [x] Family support [] [] Out of room [] Palliative care [] [] Receiving care in room [] Pre-surgical visit [] Trauma [] Long length of stay [x] ICU visit [x] Other: PT continues to be upset with [facility] doctors... Relational/Emotional Strength [] Patient feels connected with others/family/visitors/staff [] Distress [] Loneliness/isolation [] Abandonment Spirituality of Patient [] Person of Minoo [] Attends Sikh of their [place] [] Believes in Prayer [] Reads Bible or Presybeterian materials [] There are Spiritual issues to be addressed Assembler Engine Interventions [x] Prayer [] Active listening [] Non-anxious presence [] Spiritual/emotional support [] Crisis/trauma care [] Spiritual counseling [] Bereavement support [] Provided bereavement packet [] Provided Bible/devotional materials [] Provided toy/stuffed animal, coloring book to patient or family member [] Provided Communion [] Anointing/Lucas [] Salvation [x] Completed spiritual assessment [] Other: Impact on Illness or Injury [] Angry [] Fearful [] Anxious [] Often cries [] Exhaustion [] Unable to work [] Unable to attend scientologist [] Unable to walk/stand [] Unable to read [] Unable to drive [] Unable to eat/drink [] Unable to sleep [] Unable to be with family [] Patient intubated [] Other: Summary Time spent with patient
[2022-05-03] MEDS: lanolin oint 7 gm 1 APPLIC TOPICAL (11:46)
[2022-05-03 11:55] LABS: Glucose Point of Care 142 mg/dL (70-110)
--- NOTE | 2022-05-03 11:57 | PC.OT ---
OT TREATMENT ATTEMPTED THIS A.M. PATIENT HR: 137 @ REST. WILL HOLD THIS A.M AND ATTEMPT AGAIN IN P.M.
[2022-05-03] MEDS: dilTIAZem 5 mg/mL SDV 5 mL IVP (12:15)
--- NOTE | 2022-05-03 14:08 | PC.OT ---
OT TREATMENT ATTEMPTED AGAIN IN P.M. HR: 156-178 WHILE SEATED AND ATTEMPTING TO EAT LUNCH. WILL HOLD TODAY AND ATTEMPT AGAIN TOMORROW.
[2022-05-03] MEDS: doxycycline 100 MG in sodium chloride 0.9% (plus) 100 ML IV (14:59)
[2022-05-03] MEDS: predniSONE 5 mg Tablet PO (15:01)
[2022-05-03] MEDS: predniSONE 1 mg Tablet 2 MG PO (15:01)
[2022-05-03 17:46] LABS: Glucose Point of Care 166 mg/dL (70-110)
--- NOTE | 2022-05-03 18:28 | PM.CONSULT ---
Providers/Reason For Consult Consulting Physician/Specialty*: DR KIRSTIE MANCILLA/ Cardiology Reason for Consult*: Patient with atrial fibrillation/flutter and rapid regular rate, on AV andrew blocking agents and IV amiodarone, continues to be in atrial flutter/fibrillation with a rapid ventricular rate Requesting Physician: Dr. Cormier Attending Physician: Jarvis Cormier Primary Care Provider: Piedad Sandhu MD History of Present Illness History of Present Illness Carolyn Alexander is a 71 year old female with a history of chronic intermittent atrial fibrillation, status post radiofrequency ablation, is admitted to the hospital with complaints of generalized weakness and tremor. While being in the hospital, she went into atrial fibrillation with rapid ventricular rate. She was started on IV amiodarone. She also was given a dose of IV digoxin and Cardizem. Patient continues to be in atrial fibrillation with rapid ventricular rate. Her systolic blood pressures in the 100 range. Cardiology consult is requested for further cardiac evaluation and recommendations. This patient is known to have multiple medical problems. She had radiofrequency ablation in December of last year in [place]. She has a history of a chronic diastolic heart failure with intermittent exacerbation. History of sleep apnea, morbid obesity, essential benign hypertension, on long-term oral anticoagulation, hypopituitarism, history of addisonian crisis, etc. She was evaluated by the neurologist since the hospital admission. Tremor was thought to be functional. She has no focal neurological deficits. She had some chills yesterday morning. Has not had any fever since hospital admission. Denies any fever, chills or cough. Review of Systems Narrative: CONSTITUTIONAL: History of chills as mentioned above. Has been having generalized weakness for a while EYES: No blurring of vision or other visual disturbances lately. ENT: No hoarseness of voice, auditory disturbances or sore throat. CARDIOVASCULAR: As mentioned above. RESPIRATORY: Shortness of breath for a long time GASTROINTESTINAL: No hematemesis or melena. GENITOURINARY: No dysuria or hematuria. INTEGUMENTARY: No skin rashes or history of skin cancer. NEURO: No transient ischemic attacks or amaurosis. PSYCHIATRIC: No history of psychosis or major depression. HEMATOLOGIC: No bleeding disorders or significant anemia. ENDOCRINE: No history of polyuria or polydipsia. MUSCULOSKELETAL: No recent joint pain or swelling. ALLERGY/IMMUNOLOGY: As mentioned above. Medications/Allergies Home Medications Medication Instructions Recorded Confirmed Last Taken Type epinephrine 0.3 mg/0.3 mL 0.3 mg (0.3 mL) IM Q10M PRN 04/20/20 05/02/22 Unknown Rx injection, auto-injector (EpiPen anaphylaxis #2 ea 2-Nabeel) diabetic supplies, miscellan. #1 ea 01/21/21 05/02/22 Unknown Rx blood sugar diagnostic (Pharmacist #50 ea 03/04/21 05/02/22 Unknown Rx Choice Glucose Test Strips) blood-glucose meter,continuous #1 ea 03/04/21 05/02/22 Unknown Rx polyethylene glycol 3350 17 17 g PO DAILY PRN Constipation 05/05/21 05/02/22 01/11/22 History gram/dose oral powder (Miralax) empagliflozin 10 mg tablet 10 mg PO QAM 08/02/21 05/02/22 2 Days Ago History (Jardiance) ~04/30/22 pantoprazole 40 mg tablet,delayed 40 mg PO BEDTIME 08/02/21 05/02/22 2 Days Ago History release (Protonix) ~04/30/22 pramipexole 0.5 mg tablet (Mirapex) 1 mg PO BEDTIME 08/02/21 05/02/22 2 Days Ago History ~04/30/22 semaglutide 0.25 mg or 0.5 mg (2 1 mg SUBCUT Q7D 08/02/21 05/02/22 04/24/22 History mg/1.5 mL) subcutaneous pen injector (Ozempic) cpap mask and supplies #1 ea 09/14/21 05/02/22 Unknown Rx levothyroxine 175 mcg tablet 175 mcg PO QAM 90 days #90 tabs 10/13/21 05/02/22 2 Days Ago Rx ~04/30/22 pregabalin 150 mg capsule (Lyrica) 150 mg PO BID 90 days #180 caps 01/31/22 05/02/22 2 Days Ago Rx ~04/30/22 apixaban 5 mg tablet (Eliquis) 5 mg PO BID 02/23/22 05/02/22 2 Days Ago History ~04/30/22 hydroxyzine pamoate 25 mg capsule 25 mg PO BID PRN Anxiety 02/23/22 05/02/22 Unknown History magnesium L-lactate 84 mg 84 mg PO QAM 02/23/22 05/02/22 02/23/22 History tablet,extended release (Magtab) potassium chloride 20 mEq 40 meq PO BID PRN low potassium 02/23/22 05/02/22 2 Days Ago History tablet,extended release(part/cryst) ~04/30/22 spironolactone 25 mg tablet 50 mg PO BID 02/23/22 05/02/22 2 Days Ago History ~04/30/22 losartan 25 mg tablet 25 mg PO DAILY #90 tabs 04/01/22 05/02/22 2 Days Ago Rx ~04/30/22 prednisone 5 mg tablet 5 mg PO DAILY #30 tabs 04/21/22 05/02/22 2 Days Ago Rx ~04/30/22 diltiazem HCl 120 mg tablet 120 mg PO BID 05/02/22 05/02/22 2 Days Ago History (Cardizem) ~04/30/22 torsemide 40 mg tablet 80 mg PO BID 05/02/22 05/02/22 2 Days Ago History ~04/30/22 Allergies Allergy/AdvReac Type Severity Reaction Status Date / Time acetaminophen [From Tylenol] Allergy ALGY-Hives Verified 01/17/22 08:27 azithromycin Allergy ALGY-Anaphy Verified 01/17/22 08:27 laxis benzocaine Allergy ALGY-Hives Verified 01/17/22 08:27 butamben [From Cetacaine] Allergy ALGY-Swell Verified 01/17/22 08:27 Lip/Tongue/Throat codeine Allergy ALGY-Hives Verified 01/17/22 08:27 fentanyl Allergy ALGY-Anaphy Verified 01/17/22 08:27 laxis hydrocodone [From Vicodin] Allergy ALGY-Hives Verified 01/17/22 08:27 hydromorphone [From Dilaudid] Allergy ADR-Vomitin Verified 01/17/22 08:27 g Iodinated Contrast Media Allergy ALGY-Anaphy Verified 01/17/22 08:27 laxis liothyronine Allergy ADR-Nausea Verified 01/17/22 08:27 meperidine [From Demerol] Allergy Unknown Verified 01/17/22 08:27 morphine Allergy ALGY-Anaphy Verified 01/17/22 08:27 laxis nitrofurantoin Allergy ALGY-Joint Verified 01/17/22 08:27 [From Macrobid] Pain oxycodone [From Percocet] Allergy ALGY-Hives Verified 01/17/22 08:27 penicillin V Allergy ALGY-Hives Verified 01/17/22 08:27 Penicillins Allergy Unknown Verified 01/17/22 08:27 Phenothiazines Allergy ALGY-Anaphy Verified 01/17/22 08:27 laxis procaine Allergy ALGY-Hives Verified 01/17/22 08:27 prochlorperazine Allergy ALGY-Anaphy Verified 01/17/22 08:27 [From Compazine] laxis Sulfa (Sulfonamide Allergy Unknown Verified 01/17/22 08:27 Antibiotics) tetracaine [From Cetacaine] Allergy ALGY-Swell Verified 01/17/22 08:27 Lip/Tongue/Throat Current Medications Generic Name Dose Route Start Last Admin Trade Name Freq PRN Reason Stop Dose Admin Alprazolam 0.5 mg 05/02/22 11:30 05/02/22 22:58 Alprazolam 0.5 Mg Tablet PO 0.5 mg TID PRN Administration ANXIETY Apixaban 5 mg 05/02/22 09:00 05/03/22 17:09 Apixaban 5 Mg Tablet PO 5 mg BID RAMIRO Administration Diltiazem HCl 120 mg 05/03/22 17:15 05/03/22 17:41 Diltiazem Er (24hr) 120 Mg Capsule PO 120 mg BID RAMIRO Administration Amiodarone HCl 900 mg/ 518 mls @ 0 mls/hr 05/02/22 19:30 05/03/22 04:00 Dextrose/ IV Miscellaneous IV 0.5 mg/min Supplies .Q0M RAMIRO 17.27 mls/hr Titration Protocol Per Protocol Doxycycline Hyclate 100 mg/ 100 mls @ 100 mls/hr 05/03/22 13:45 05/03/22 14:59 Sodium Chloride IV 100 mls/hr Q12H RAMIRO Administration Protocol Insulin Human Lispro 0 unit 05/02/22 08:00 05/03/22 17:41 Insulin Lispro 100 Unit/1 Ml SUBCUT 4 unit TIDWM RAMIRO Administration Protocol Lanolin 1 applic 05/03/22 11:34 05/03/22 11:46 Lanolin Oint 7 Gm TOPICAL 1 applic PRN PRN Administration DRYNESS Levothyroxine Sodium 175 mcg 05/02/22 06:00 05/03/22 06:34 Levothyroxine 175 Mcg Tablet PO 175 mcg QAM RAMIRO Administration Magnesium Lactate 84 mg 05/02/22 06:00 05/03/22 06:34 Magnesium Lactate 84 Mg Tablet PO 84 mg QAM RAMIRO Administration Pantoprazole Sodium 40 mg 05/02/22 06:00 05/03/22 06:[address] 40 Mg Tablet PO 40 mg QAM RAMIRO Administration Potassium Chloride 20 meq 05/02/22 09:00 05/03/22 17:09 Potassium Chloride Er 20 Meq Tablet PO 20 meq BID RAMIRO Administration Pramipexole Dihydrochloride 1 mg 05/02/22 22:00 05/02/22 22:58 Pramipexole 0.25 Mg Tablet PO 1 mg BEDTIME RAMIRO Administration Pregabalin 150 mg 05/02/22 09:00 05/02/22 08:17 Pregabalin 150 Mg Capsule PO 150 mg BID RAMIRO Administration PFSH Acute PFSH: Medical History Acute kidney injury superimposed on chronic kidney disease Acute kidney injury superimposed on CKD Adrenal insufficiency Anasarca Anasarca Anasarca Anemia Atrial fibrillation Benign essential hypertension with target blood pressure below 140/90 Central hypothyroidism CHF (congestive heart failure) CHF exacerbation Chronic back pain Follows at pain clinic for periodic injections Chronic hyponatremia Colitis Congestive heart failure COVID-19 (~09/2020) Edema ESBL (extended spectrum beta-lactamase) producing bacteria infection Facet arthritis, degenerative, lumbar spine Fatigue Gastroenteritis History of anaphylaxis History of atrial fibrillation Intermittent, has not required long-term anticoagulation or focused treatment History of COVID-19 HTN (hypertension) Hx of atrial fibrillation, no current medication Hyperaldosteronism Hypokalemia Hypomagnesemia Hypophosphatemia 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 Increased nausea and vomiting Lumbar spondylolysis Metabolic acidosis Nausea vomiting and diarrhea OAB (overactive bladder) Obesity Obesity, morbid, BMI 50 or higher Obstructive sleep apnea KP (obstructive sleep apnea) Paroxysmal atrial fibrillation Pituitary macroadenoma with extrasellar extension Prediabetes Pulmonary hypertension PVD (peripheral vascular disease) Shock Stasis edema with ulcer and inflammation Steroid dependence Tachycardia Type 2 diabetes mellitus with other diabetic kidney complication Unsteady gait UTI (urinary tract infection) UTI (urinary tract infection) Venous (peripheral) insufficiency Volume overload VT (ventricular tachycardia) Surgical History H/O shoulder surgery History of hysterectomy History of pituitary surgery S/P insertion of spinal cord stimulator Family History Father Cancer pancreatic cancer Sister No problems noted. 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 Not in any acute distress. Morbidly obese HEENT: No significant pallor, icterus or lymphadenopathy.Oral cavity: There are no mucous membrane lesions. NECK: Trachea appears to be central. No masses noted. No JVD or thyromegaly appreciated. RESPIRATORY: Chest is symmetrical. No intercostals muscle retraction or any accessory muscle activation. There is no chest wall tenderness. Breath sounds are heard bilaterally. No rales or rhonchi heard. No evidence of any consolidation. Diminished intensity of breath sounds in the bases BREASTS: Deferred. HEART: First heart sound is variable l. No S3 or S4. Short systolic murmur in the sternal border. No diastolic murmurs. ABDOMEN: No vessel pulsations or distention. No tenderness. No organomegaly appreciated. Bowel sounds are normally heard. : Deferred. RECTAL: Deferred. LYMPHATIC: No lymphadenopathy noted in the neck. EXTREMITIES: No edema or cyanosis. No clubbing. MUSCULOSKELETAL: No acute joint deformities or swelling SKIN: There are no significant rashes or ecchymosis NEUROPSYCHIATRIC: The patient is alert and oriented x3. Appears to be in a good mood. No tremors or rigidity noted. Urinary Catheter Management: Zurita: Cath Placed During This Visit: yes Reason for Continuing Indwelling Catheter: Accurate Measurement of Urinary Output in Critically Ill Patients Urinary Catheter Date of Insertion: 05/01/22 Urinary Catheter Time of Insertion: 18:30 Data 05/03/22 03:10 05/03/22 03:10 Other Labs: Laboratory Last Values WBC 10.0 10^3/uL (4.0-10.0) 05/04/22 04:31 RBC 5.46 10^6/uL (4.1-5.3) H 05/04/22 04:31 Hgb 10.6 g/dL (11.5-15.3) L 05/04/22 04:31 Hct 39.4 % (37.0-47.0) 05/04/22 04:31 MCV 72.2 fl (81-99) L 05/04/22 04:31 MCH 19.4 pg (28.0-34.0) L 05/04/22 04:31 MCHC 26.9 g/dL (30.0-36.0) L 05/04/22 04:31 RDW 20.4 % (12.1-15.1) H 05/04/22 04:31 Plt Count 286 10^3/cmm (130-400) 05/04/22 04:31 MPV 9.7 fL (7.4-10.4) 05/04/22 04:31 Neut % (Auto) 71.7 % 05/04/22 04:31 Lymph % (Auto) 14.3 % 05/04/22 04:31 Greer % (Auto) 8.8 % 05/04/22 04:31 Eos % (Auto) 2.9 % 05/04/22 04:31 Baso % (Auto) 0.9 % 05/04/22 04:31 Neut # (Auto) 7.18 10^3/uL (1.8-7.7) 05/04/22 04:31 Lymph # (Auto) 1.4 10^3/uL (0.8-4.8) 05/04/22 04:31 Greer # (Auto) 0.9 10^3/uL (0.2-0.9) 05/04/22 04:31 Eos # (Auto) 0.3 10^3/uL (0.0-0.8) 05/04/22 04:31 Baso # (Auto) 0.1 10^3/uL (0.0-0.1) 05/04/22 04:31 Nucleated RBC % (auto) 0.2 % 05/04/22 04:31 Nucleated RBCs # 0.0 /100WBC 05/04/22 04:31 Sodium 137 mmol/L (136-145) 05/04/22 04:31 Potassium 5.2 mmol/L (3.5-5.1) H 05/04/22 04:31 Chloride 104 mmol/L (98-107) 05/04/22 04:31 Carbon Dioxide 23 mmol/L (22-29) 05/04/22 04:31 Anion Gap 15.2 (5-19) 05/04/22 04:31 BUN 13 mg/dL (8-23) 05/04/22 04:31 Creatinine 1.0 mg/dL (0.5-0.9) H 05/04/22 04:31 GFR Calculation 55.0 mL/min (90-130) L 05/04/22 04:31 Glucose 130 mg/dL (65-115) H 05/04/22 04:31 POC Glucose 156 mg/dL (70-110) H 05/03/22 22:10 Calculated Osmolality 286 mOsm/kg (285-295) 05/04/22 04:31 Calcium 8.9 mg/dL (8.5-10.5) 05/04/22 04:31 Phosphorus 2.9 mg/dL (2.5-4.5) 02/07/23 03:10 Magnesium 2.5 mg/dL (1.7-2.3) H 05/03/22 03:10 Total Bilirubin 0.3 mg/dL (0.15-1.2) 05/01/22 19:51 AST 16 U/L (0-32) 05/01/22 19:51 ALT 26 U/L (0-33) 05/01/22 19:51 Alkaline Phosphatase 126 U/L (35-105) H 05/01/22 19:51 NT-Pro-B Natriuret Pep 222 pg/mL (0-125) H 05/01/22 19:51 Total Protein 5.9 g/dL (6.6-8.7) L 05/01/22 19:51 Albumin 3.3 g/dL (3.5-5.2) L 05/01/22 19:51 Globulin 2.6 g/dL (1.3-4.6) 05/01/22 19:51 Random Cortisol 0.68 ug/dL (2.47-19.5) L 05/01/22 19:51 Urine Color Yellow (Yellow) 05/01/22 18:38 Urine Appearance Clear (CLEAR) 05/01/22 18:38 Urine pH 5 (5-7) 05/01/22 18:38 Ur Specific L[place]ner 1.015 (1.005-1.030) 05/01/22 18:38 Urine Protein Neg (Negative) 05/01/22 18:38 Urine Glucose (UA) 2+ (Normal) H 05/01/22 18:38 Urine Ketones Negative (Negative) 05/01/22 18:38 Urine Blood Neg (Negative) 05/01/22 18:38 Urine Nitrate Negative (Negative) 05/01/22 18:38 Urine Bilirubin Neg (Negative) 05/01/22 18:38 Urine Urobilinogen Neg mg/dL (Negative) 05/01/22 18:38 Ur Leukocyte Esterase Negative (Negative) 05/01/22 18:38 CXR: Radiologist's impression: Moderate cardiomegaly.. Mild to moderate tortuosity and ectasia thoracic aorta without aneurysmal dilatation. The apparent central vascular congestion and prominence of the lower interstitial bronchovascular markings is likely due to the relatively poor inspiratory effort. No definite acute pulmonary parenchymal changes are noted. The chest is likely unchanged compared to the examination of 05/01/2022. EKG 1: My Interpretation: The EKG shows atrial fibrillation with rapid ventricle rate. Diffuse nonspecific T wave changes. Poor R wave progression A&P Assessment and plan (1) Intermittent atrial fibrillation: Patient is on IV amiodarone. Apparently she had some reaction of the amiodarone in the past causing blurring of vision and some other issues. If she has recurrence of the symptoms, this medicine needs to be discontinued. May continue the p.o. Cardizem. We also may give IV digoxin on a as needed basis for rate control. Based on the clinical progress, further recommendations will be made Patient may require repeat ablation. I will be contacting the inventory representative in [place] regarding this. (2) Acute on chronic diastolic (congestive) heart failure: Patient may be carefully treated with IV diuretics. (3) Steroid dependence: Management as per the primary. (4) Chronic kidney disease, stage 3a: Management as per the primary. Currently the kidney function seems to be appropriate. Plan Based on the clinical progress, further recommendations will be made to Consult Attestations Medical Necessity Statement: Patient requires continued hospital stay for close monitoring and further management Coding Level of Care Code 74129 Diagnoses Intermittent atrial fibrillation I48.0 Acute on chronic diastolic (congestive) heart failure I50.33 Steroid dependence F19.20 Chronic kidney disease, stage 3a N18.31
--- NOTE | 2022-05-03 19:11 | PC.NURSE ---
BLurry Vision reported by patient. SHe tihnks this is a result of amiodarone as it is a known side effect and she has gotten blurry vision from it in the past. Nurse alerted Dr umanzor and received orders to stop amiodarone.
--- NOTE | 2022-05-03 19:19 | PC.NURSE ---
Shift SUmmary: Uneventful shift. Patient was up to the chair for about half of the day. helped with a bed bath. Patient remained in Sinus tach, usually in the 130's, for the entire shift. Patient changed from amiodarone to cardizem due to blurry vision and no effect from amiodarone.
--- NOTE | 2022-05-03 20:09 | P.PN_ITS ---
Subjective Subjective: This morning heart rate is still not controlled. She is not having chest pain. She has been getting more swelling in lower extremities, erythema slightly worse. She requests to have regular diet. Vitals/I&O/Wt Last Vital Signs Temp 97.5 F L 05/03/22 12:55 Pulse 137 H 05/03/22 19:50 Resp 19 H 05/03/22 19:50 BP 99/69 05/03/22 19:00 Pulse Ox 92 05/03/22 19:50 O2 Del Method 05/03/22 19:50 O2 Flow Rate 2 05/03/22 19:50 05/03/22 05/03/22 05/03/22 06:59 14:59 22:59 Intake Total 207.756 / 887.756 233.145 / 233.145 Output Total 1800 / 1800 250 / 250 375 / 625 Balance -1592.244 / -912.244 -250 / -250 -141.855 / -391.855 Physical Exam Narrative: by her side. Const: COMMON NORMALS: patient oriented x3 and alert GENERAL APPEARANCE: cooperative NUTRITIONAL APPEARANCE: obese morbidly obese ORIENTATION/CONSCIOUSNESS: Yes awake HENMT: COMMON NORMALS: oropharynx normal Neck/C-Spine: COMMON NORMALS: no JVD Resp: COMMON NORMALS: normal respiratory effort and clear to auscultation bilaterally AUSCULTATION: clear to auscultation bilaterally Cardio: COMMON NORMALS: no JVD, S1 normal heart sound present, S2 normal heart sound present and No murmurs present (Cardio) RATE: tachycardic RHYTHM: abnormal rhythm irregularly irregular HEART SOUNDS: S1 normal heart sound present and S2 normal heart sound present GI: COMMON NORMALS: Normal to inspection, nondistended, normoactive bowel sounds present, Soft to palpation and non-tender PALPATION: Yes Soft to palpation Extremity: GENERAL: Yes edema (1+) OTHER: Proximal muscle weakness all around. Coarse tremors which appear to come and go on extremities, more so when she is moving, but not necessarily. No rigidity. Neuro: COMMON NORMALS: patient oriented x3 and moves all extremities SENSORIUM/ORIENTATION: Yes alert Skin: OTHER: Slightly larger area faint pinkish erythema of lower bilateral shins and areas of edema. No weeping. No open wounds. Urinary Catheter Management: Zurita: Cath Placed During This Visit: yes Reason for Continuing Indwelling Catheter: Accurate Measurement of Urinary Outp ut in Critically Ill Patients Urinary Catheter Date of Insertion: 05/01/22 Urinary Catheter Time of Insertion: 18:30 Data 05/03/22 03:10 05/03/22 03:10 A&P Assessment and plan (1) Paroxysmal atrial fibrillation with RVR: This morning again tachycardic. Requested additional dose of 5 mg IV Cardizem. Continues on amiodarone. Discussing with her she becomes hypotensive with metoprolol so avoids this. This has been discontinued. Yesterday received a dose of digoxin, renal functions today is better, but she tells me about chronic kidney disease and her creatinine does fluctuate quite a bit, will avoid additional digoxin currently. Given significant difficulties with management of atrial fibrillation in the past requiring multiple cardioversions, as well as ablation and despite that still return to atrial fibrillation with RVR subsequently, discussed and requesting consultation with cardiology. Appreciate assessment. Continue oral Cardizem. Continue Eliquis. (2) Weakness: Continues to be weak. Appreciate a note regarding neurologist assessment. Continue PT. Reviewed documentation. Though currently limited due to tachycardia. Was put in a chair. Today is stronger. Continue to withhold potential offending medications. Continue increased dose o f prednisone. Seems pramipexole was resumed by overnight physician. Will monitor for any additional worsening of symptoms as this could be one of the offending medications. Hold Lyrica. Possible causes including toxicity of medications including pregabalin in setting of acute kidney injury. Abdomen occasional that may be contributing include prednisone which could lead to proximal weakness, although she cannot go without steroids due to pituitary insufficiency. Discussing with her s he was recently also converted from Decadron 1 mg to prednisone 5 mg which is a somewhat lower dose. Blood pressures discussed with her are soft. Consideration could be for a degree of adrenal insufficiency with noted mild hyponatremia. Serum cortisol requested and is low. UA not consistent with UTI Chest x-ray with mild pulmonary edema without definite infiltrate Supportive care Physical and Occupational Therapy ordered (3) Coarse tremors: With improvement today. 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 Supportive care (4) RODRIGUE (acute kidney injury): Hold losartan. For now hold diuretics, although did have dyspnea but this is likely related to tachycardia. Monitor for signs of fluid overload. Likely medication induced Hold home Bumex, reassess in a.m. Hold home metolazone Hold home losartan Trend renal function Avoid nephrotoxins (5) Hypothyroid: Continue Synthroid (6) Diabetes: On outpatient Ozempic Sliding scale insulin correction Avoid hypoglycemia (7) Atrial fibrillation: (8) CHF (congestive heart failure): Some worsening of swelling. Today also was needing more oxygen. Received diuretic with for now Lasix 40 mg IV. Reassess response, renal function. Qualifiers: Heart failure chronicity: acute Heart failure type: unspecified Qualified Code(s): I50.9 - Heart failure, unspecified Plan Cellulitis: Possible mild cellulitis bilateral lower extremities with edema, faint pink erythema slightly worse today. Started doxycycline. DVT prophylaxis: Apixaban CODE STATUS: Full code Attestations Medical Necessity Statement*: Continue admission for assessment management of difficult to control A-fib with RVR. Generalized weakness and tremors. Coding Level of Care Code 85239 High MDM includes risk/complexity, reviewing previous or external records, reviewing test results, ordering lab/other test(s) and discussion of management or test(s) w/ other healthcare professional Diagnoses Paroxysmal atrial fibrillation with RVR I48.0 Weakness R53.1 Coarse tremors G25.2 RODRIGUE (acute kidney injury) N17.9 Hypothyroid E03.9 Diabetes E11.9 Atrial fibrillation I48.91 CHF (congestive heart failure) I50.9 Heart failure chronicity: acute Heart failure type: unspecified
[2022-05-03] MEDS: ALPRAZolam 0.5 mg Tablet PO (20:53)
[2022-05-03] MEDS: pramipexole 0.25 mg Tablet 1 MG PO (20:53)
[2022-05-03 22:18] LABS: Glucose Point of Care 156 mg/dL (70-110)
[2022-05-04] VITALS (23 sets, daily range): BP systolic 101–140; BP diastolic 67–101; PULSE 112–146; RESP 18–32; TEMP 36.5–36.6; O2SAT 2–96
[2022-05-04] MEDS: doxycycline 100 MG in sodium chloride 0.9% (plus) 100 ML IV ×2 (02:03→13:41)
[2022-05-04] MEDS: ALPRAZolam 0.5 mg Tablet PO (04:31)
[2022-05-04 05:02] LABS: Basophils # 0.1 10^3/uL (0.0-0.1); Basophils % 0.9 %; Eosinophils # 0.3 10^3/uL (0.0-0.8); Eosinophils % 2.9 %; Hematocrit 39.4 % (37.0-47.0); Hemoglobin 10.6 g/dL (11.5-15.3); Lymphocytes # 1.4 10^3/uL (0.8-4.8); Lymphocytes % 14.3 %; Mean Corpuscular HGB Conc 26.9 g/dL (30.0-36.0); Mean Corpuscular Hemoglobin 19.4 pg (28.0-34.0); Mean Corpuscular Volume 72.2 fl (81-99); Mean Platelet Volume 9.7 fL (7.4-10.4); Monocytes # 0.9 10^3/uL (0.2-0.9); Monocytes % 8.8 %; Neutrophils # 7.18 10^3/uL (1.8-7.7); Neutrophils % 71.7 %; Nucleated Red Blood Cells % 0.2 %; Platelet Count 286 10^3/cmm (130-400); Red Blood Count 5.46 10^6/uL (4.1-5.3); Red Cell Distribution Width 20.4 % (12.1-15.1)
[2022-05-04 05:28] LABS: Anion Gap 15.2 (5-19); Blood Urea Nitrogen 13 mg/dL (8-23); Calcium 8.9 mg/dL (8.5-10.5); Carbon Dioxide 23 mmol/L (22-29); Chloride 104 mmol/L (98-107); Glucose 130 mg/dL (65-115); Osmolality Calculated 286 mOsm/kg (285-295); Potassium 5.2 mmol/L (3.5-5.1); Sodium 137 mmol/L (136-145)
[2022-05-04] MEDS: levothyroxine 175 mcg Tablet PO (05:31)
[2022-05-04] MEDS: magnesium lactate 84 mg Tablet PO (05:31)
[2022-05-04] MEDS: pantoprazole DR 40 mg Tablet PO ×2 (05:31→18:43)
[2022-05-04] MEDS: dilTIAZem ER (24HR) 120 mg Capsule PO ×2 (08:19→18:44)
[2022-05-04] MEDS: apixaban 5 mg Tablet PO ×2 (08:19→18:43)
[2022-05-04] MEDS: predniSONE 5 mg Tablet 7 MG PO (08:19)
[2022-05-04] MEDS: ondansetron 2 mg/ML SDV 2 mL 4 MG IVP ×2 (08:25→16:09)
[2022-05-04] MEDS: ibuprofen 800 mg tablet PO (08:26)
--- NOTE | 2022-05-04 11:05 | PC.OT ---
OT TREATMENT ATTEMPTED TWICE THIS A.M. PATIENT VISITING WITH [employer]ELOPER AND STATES IT WAS A BAD EVENING; VERY BAD [place]. REQUESTING A RECLINER TO SIT/SLEEP IN. LATER IN MORNING, RECLINER FOUND AND TRANSPORTED TO THE PATIENT'S ROOM. EVIDENTLY, ANOTHER RECLINER WAS BROUGHT TO THE PATIENT'S ROOM AND SHE WAS UTILIZING IT. PATIENT HR: 148 AT REST. WILL ATTEMPT AGAIN IN P.M.
[2022-05-04] MEDS: digoxin 250 mcg/ml INJ 2 mL IVP (11:35)
[2022-05-04 11:51] LABS: Glucose Point of Care 116 mg/dL (70-110)
[2022-05-04 17:10] LABS: Glucose Point of Care 169 mg/dL (70-110)
--- NOTE | 2022-05-04 18:04 | PM.PN ---
Subjective Subjective: Patient was complaining of some nausea, vomiting and headache this morning. She has a baseline shortness of breath with activities. Telemetry still shows atrial fibrillation with rapid ventricular rate Medications: Medication Review Details: Current Medications Albuterol/Ipratropium (Ipratropium-Albuterol 3 Ml Neb) 3 ml INHALATION Q6H.RESP PRN PRN Reason: SHORTNESS OF BREATH Alprazolam (Alprazolam 0.5 Mg Tablet) 0.5 mg PO TID PRN PRN Reason: ANXIETY Last Admin: 05/04/22 04:31 Dose: 0.5 mg Apixaban (Apixaban 5 Mg Tablet) 5 mg PO BID [facility] Last Admin: 05/04/22 08:19 Dose: 5 mg Dextrose (Dextrose 50% Syringe 50 Ml) 25 ml IVP ONCE PRN; Protocol PRN Reason: hypoglycemia protocol Dextrose (Dextrose 50% Syringe 50 Ml) 50 ml IVP PRN PRN; Protocol PRN Reason: hypoglycemia protocol Diltiazem HCl (Diltiazem Er (24hr) 120 Mg Capsule) 120 mg PO BID [facility] Last Admin: 05/04/22 08:19 Dose: 120 mg Glucagon (Glucagon 1 Mg/Ml Inj 1 Ml) 1 mg IM ONCE PRN; Protocol PRN Reason: Adult Acute Hypoglycemia Prot. Hydroxyzine Pamoate (Hydroxyzine 25 Mg Capsule) 25 mg PO BID PRN PRN Reason: Anxiety Dextrose (D5w) 500 mls @ 100 mls/hr IV ONCE PRN; Protocol PRN Reason: Adult Acute Hypoglycemia Prot Doxycycline Hyclate 100 mg/ (Sodium Chloride) 100 mls @ 100 mls/hr IV Q12H [facility]; Protocol Last Infusion: 05/04/22 15:04 Dose: Infused Insulin Human Lispro (Insulin Lispro 100 Unit/1 Ml) 0 unit SUBCUT TIDWM [facility]; Protocol Last Admin: 05/04/22 13:29 Dose: Not Given Lanolin (Lanolin Oint 7 Gm) 1 applic TOPICAL PRN PRN PRN Reason: DRYNESS Last Admin: 05/03/22 11:46 Dose: 1 applic Levothyroxine Sodium (Levothyroxine 175 Mcg Tablet) 175 mcg PO [facility] Last Admin: 05/04/22 05:31 Dose: 175 mcg Magnesium Lactate (Magnesium Lactate 84 Mg Tablet) 84 mg PO [facility] Last Admin: 05/04/22 05:31 Dose: 84 mg Ondansetron HCl (Ondansetron 2 Mg/Ml Sdv 2 Ml) 4 mg IVP Q6H PRN PRN Reason: NAUSEA AND VOMITING Last Admin: 05/04/22 16:09 Dose: 4 mg Pantoprazole Sodium (Pantoprazole Dr 40 Mg Tablet) 40 mg PO BID [facility] Polyethylene Glycol (Polyethylene Glycol 3350 Pkt 17 Gm) 17 gm PO DAILY PRN PRN Reason: Constipation Pramipexole Dihydrochloride (Pramipexole 0.25 Mg Tablet) 1 mg PO BEDTIME [facility] Last Admin: 05/03/22 20:53 Dose: 1 mg Prednisone (Prednisone 5 Mg Tablet) 7 mg PO DAILY [facility] Last Admin: 05/04/22 08:19 Dose: 7 mg Pregabalin (Pregabalin 150 Mg Capsule) 150 mg PO BID [facility] Last Admin: 05/02/22 08:17 Dose: 150 mg Vitals/I&O/Wt Last Vital Signs Temp 97.7 F 05/04/22 11:29 Pulse 113 H 05/04/22 16:00 Resp 18 05/04/22 16:00 BP 130/67 05/04/22 16:00 Pulse Ox 95 05/04/22 16:00 O2 Del Method 05/04/22 16:00 O2 Flow Rate 2 05/03/22 23:47 05/04/22 05/04/22 05/04/22 06:59 14:59 22:59 Intake Total 100 / 433.145 240 / 240 100 / 340 Output Total 700 / 1325 Balance -600 / -891.855 240 / 240 100 / 340 Physical Exam Narrative: GENERAL: The patient is alert and oriented times three. Not in any acute distress. Morbidly obese HEENT: No significant pallor, icterus or lymphadenopathy.Oral cavity: There are no mucous membrane lesions. NECK: Trachea appears to be central. No masses noted. No JVD or thyromegaly appreciated. RESPIRATORY: Chest is symmetrical. No intercostals muscle retraction or any accessory muscle activation. There is no chest wall tenderness. Breath sounds are heard bilaterally. Scattered expiratory wheezing and some coarse crackles BREASTS: Deferred. HEART: The heart sounds are normal. No S3 or S4. Short systolic murmur in the lower sternal border no pericardial rub ABDOMEN: No vessel pulsations or distention. No tenderness. No organomegaly appreciated. Bowel sounds are normally heard. : Deferred. RECTAL: Deferred. LYMPHATIC: No lymphadenopathy noted in the neck. EXTREMITIES: 1-2+ edema both lower extremities MUSCULOSKELETAL: No acute joint deformities or swelling SKIN: There are no significant rashes or ecchymosis NEUROPSYCHIATRIC: The patient is alert and oriented x3. Appears to be in a good mood. No tremors or rigidity noted. Urinary Catheter Management: [place]: Cath Placed During This Visit: yes Reason for Continuing Indwelling Catheter: Acute Urinary Retention or Obstruction Urinary Catheter Date of Insertion: 05/01/22 Urinary Catheter Time of Insertion: 18:30 Data 05/04/22 04:31 05/04/22 04:31 Other Labs: Laboratory Last Values WBC 10.0 10^3/uL (4.0-10.0) 05/04/22 04:31 RBC 5.46 10^6/uL (4.1-5.3) H 05/04/22 04:31 Hgb 10.6 g/dL (11.5-15.3) L 05/04/22 04:31 Hct 39.4 % (37.0-47.0) 05/04/22 04:31 MCV 72.2 fl (81-99) L 05/04/22 04:31 MCH 19.4 pg (28.0-34.0) L 05/04/22 04:31 MCHC 26.9 g/dL (30.0-36.0) L 05/04/22 04:31 RDW 20.4 % (12.1-15.1) H 05/04/22 04:31 Plt Count 286 10^3/cmm (130-400) 05/04/22 04:31 MPV 9.7 fL (7.4-10.4) 05/04/22 04:31 Neut % (Auto) 71.7 % 05/04/22 04:31 Lymph % (Auto) 14.3 % 05/04/22 04:31 [place] % (Auto) 8.8 % 05/04/22 04:31 Eos % (Auto) 2.9 % 05/04/22 04:31 Baso % (Auto) 0.9 % 05/04/22 04:31 Neut # (Auto) 7.18 10^3/uL (1.8-7.7) 05/04/22 04:31 Lymph # (Auto) 1.4 10^3/uL (0.8-4.8) 05/04/22 04:31 [place] # (Auto) 0.9 10^3/uL (0.2-0.9) 05/04/22 04:31 Eos # (Auto) 0.3 10^3/uL (0.0-0.8) 05/04/22 04:31 Baso # (Auto) 0.1 10^3/uL (0.0-0.1) 05/04/22 04:31 Nucleated RBC % (auto) 0.2 % 05/04/22 04:31 Nucleated RBCs # 0.0 /100WBC 05/04/22 04:31 Sodium 137 mmol/L (136-145) 05/04/22 04:31 Potassium 5.2 mmol/L (3.5-5.1) H 05/04/22 04:31 Chloride 104 mmol/L (98-107) 05/04/22 04:31 Carbon Dioxide 23 mmol/L (22-29) 05/04/22 04:31 Anion Gap 15.2 (5-19) 05/04/22 04:31 BUN 13 mg/dL (8-23) 05/04/22 04:31 Creatinine 1.0 mg/dL (0.5-0.9) H 05/04/22 04:31 GFR Calculation 55.0 mL/min (90-130) L 05/04/22 04:31 Glucose 130 mg/dL (65-115) H 05/04/22 04:31 POC Glucose 169 mg/dL (70-110) H 05/04/22 17:04 Calculated Osmolality 286 mOsm/kg (285-295) 05/04/22 04:31 Calcium 8.9 mg/dL (8.5-10.5) 05/04/22 04:31 Phosphorus 2.9 mg/dL (2.5-4.5) 05/03/22 03:10 Magnesium 2.5 mg/dL (1.7-2.3) H 05/03/22 03:10 Total Bilirubin 0.3 mg/dL (0.15-1.2) 05/01/22 19:51 AST 16 U/L (0-32) 05/01/22 19:51 ALT 26 U/L (0-33) 05/01/22 19:51 Alkaline Phosphatase 126 U/L (35-105) H 05/01/22 19:51 NT-Pro-B Natriuret Pep 222 pg/mL (0-125) H 05/01/22 19:51 Total Protein 5.9 g/dL (6.6-8.7) L 05/01/22 19:51 Albumin 3.3 g/dL (3.5-5.2) L 05/01/22 19:51 Globulin 2.6 g/dL (1.3-4.6) 05/01/22 19:51 Random Cortisol 0.68 ug/dL (2.47-19.5) L 05/01/22 19:51 Urine Color Yellow (Yellow) 05/01/22 18:38 Urine Appearance Clear (CLEAR) 05/01/22 18:38 Urine pH 5 (5-7) 05/01/22 18:38 Ur Specific [place] 1.015 (1.005-1.030) 05/01/22 18:38 Urine Protein Neg (Negative) 05/01/22 18:38 Urine Glucose (UA) 2+ (Normal) H 05/01/22 18:38 Urine Ketones Negative (Negative) 05/01/22 18:38 Urine Blood Neg (Negative) 05/01/22 18:38 Urine Nitrate Negative (Negative) 05/01/22 18:38 Urine Bilirubin Neg (Negative) 05/01/22 18:38 Urine Urobilinogen Neg mg/dL (Negative) 05/01/22 18:38 Ur Leukocyte Esterase Negative (Negative) 05/01/22 18:38 A&P Assessment and plan (1) Intermittent atrial fibrillation: Patient may be continued on the Cardizem. The dose may be gradually increased. Amiodarone was discontinued. I may give 1 dose of digoxin 0.25 mg IV. The clinical response will be closely monitored. (2) Acute on chronic diastolic (congestive) heart failure: Patient may be carefully treated with IV diuretics. Currently the heart failure seems to be compensated. (3) Steroid dependence: Management as per the primary. (4) Chronic kidney disease, stage 3a: Management as per the primary. Currently the kidney function seems to be appropriate. Plan Based on the clinical progress, further recommendations will be made to Attestations Medical Necessity Statement*: Patient requires continued hospital stay for close monitoring and further management Coding Level of Care Code 23278 Diagnoses Intermittent atrial fibrillation I48.0 Acute on chronic diastolic (congestive) heart failure I50.33 Steroid dependence F19.20 Chronic kidney disease, stage 3a N18.31
[2022-05-04] MEDS: FUROsemide 10 mg/mL SDV 4mL 40 MG IVP (20:06)
[2022-05-04] MEDS: pramipexole 0.25 mg Tablet 1 MG PO (21:57)
[2022-05-04] MEDS: lanolin oint 7 gm 1 APPLIC TOPICAL (22:00)
[2022-05-04] MEDS: hyDROXYzine 25 mg Capsule PO (22:03)
--- NOTE | 2022-05-04 22:03 | P.PN_ITS ---
Subjective Subjective: She was having pain in the right ear, right cheek which was quite bothersome to her. Was also having nausea and vomiting today. Continues with tachycardia. Medications: Medication Review Details: Current Medications Albuterol/Ipratropium (Ipratropium-Albuterol 3 Ml Neb) 3 ml INHALATION Q6H.RESP PRN PRN Reason: SHORTNESS OF BREATH Alprazolam (Alprazolam 0.5 Mg Tablet) 0.5 mg PO TID PRN PRN Reason: ANXIETY Last Admin: 05/04/22 04:31 Dose: 0.5 mg Apixaban (Apixaban 5 Mg Tablet) 5 mg PO BID [facility] Last Admin: 05/04/22 08:19 Dose: 5 mg Dextrose (Dextrose 50% Syringe 50 Ml) 25 ml IVP ONCE PRN; Protocol PRN Reason: hypoglycemia protocol Dextrose (Dextrose 50% Syringe 50 Ml) 50 ml IVP PRN PRN; Protocol PRN Reason: hypoglycemia protocol Diltiazem HCl (Diltiazem Er (24hr) 120 Mg Capsule) 120 mg PO BID [facility] Last Admin: 05/04/22 08:19 Dose: 120 mg Glucagon (Glucagon 1 Mg/Ml Inj 1 Ml) 1 mg IM ONCE PRN; Protocol PRN Reason: Adult Acute Hypoglycemia Prot. Hydroxyzine Pamoate (Hydroxyzine 25 Mg Capsule) 25 mg PO BID PRN PRN Reason: Anxiety Dextrose (D5w) 500 mls @ 100 mls/hr IV ONCE PRN; Protocol PRN Reason: Adult Acute Hypoglycemia Prot Doxycycline Hyclate 100 mg/ (Sodium Chloride) 100 mls @ 100 mls/hr IV Q12H [facility]; Protocol Last Infusion: 05/04/22 15:04 Dose: Infused Insulin Human Lispro (Insulin Lispro 100 Unit/1 Ml) 0 unit SUBCUT TIDWM [facility]; Protocol Last Admin: 05/04/22 13:29 Dose: Not Given Lanolin (Lanolin Oint 7 Gm) 1 applic TOPICAL PRN PRN PRN Reason: DRYNESS Last Admin: 05/03/22 11:46 Dose: 1 applic Levothyroxine Sodium (Levothyroxine 175 Mcg Tablet) 175 mcg PO [facility] Last Admin: 05/04/22 05:31 Dose: 175 mcg Magnesium Lactate (Magnesium Lactate 84 Mg Tablet) [facility] Last Admin: 05/04/22 05:31 Dose: 84 mg Ondansetron HCl (Ondansetron 2 Mg/Ml Sdv 2 Ml) 4 mg IVP Q6H PRN PRN Reason: NAUSEA AND VOMITING Last Admin: 05/04/22 16:09 Dose: 4 mg Pantoprazole Sodium (Pantoprazole Dr 40 Mg Tablet) 40 mg PO BID [facility] Polyethylene Glycol (Polyethylene Glycol 3350 Pkt 17 Gm) 17 gm PO DAILY PRN PRN Reason: Constipation Pramipexole Dihydrochloride (Pramipexole 0.25 Mg Tablet) 1 mg PO BEDTIME [facility] Last Admin: 05/03/22 20:53 Dose: 1 mg Prednisone (Prednisone 5 Mg Tablet) 7 mg PO DAILY [facility] Last Admin: 05/04/22 08:19 Dose: 7 mg Pregabalin (Pregabalin 150 Mg Capsule) 150 mg PO BID [facility] Last Admin: 05/02/22 08:17 Dose: 150 mg Vitals/I&O/Wt Last Vital Signs Temp 97.7 F 05/04/22 11:29 Pulse 135 H 05/04/22 20:00 Resp 18 05/04/22 20:00 BP 130/67 05/04/22 16:00 Pulse Ox 95 05/04/22 20:00 O2 Del Method 05/04/22 20:00 O2 Flow Rate 2 05/03/22 23:47 05/04/22 05/04/22 05/04/22 06:59 14:59 22:59 Intake Total 100 / 433.145 240 / 240 580 / 820 Output Total 700 / 1325 Balance -600 / -891.855 240 / 240 580 / 820 Physical Exam Narrative: by her side. Const: COMMON NORMALS: patient oriented x3 and alert GENERAL APPEARANCE: cooperative NUTRITIONAL APPEARANCE: obese morbidly obese ORIENTATION/CONSCIOUSNESS: Yes awake HENMT: COMMON NORMALS: oropharynx normal EXTERNAL AUDITORY CANAL: Abnormal EAC present EAC laterality: right Details: erythema Neck/C-Spine: COMMON NORMALS: no JVD Resp: COMMON NORMALS: normal respiratory effort and clear to auscultation bilaterally AUSCULTATION: clear to auscultation bilaterally Cardio: COMMON NORMALS: no JVD, regular rhythm, S1 normal heart sound present, S2 normal heart sound present and No murmurs present (Cardio) RATE: tachycardic RHYTHM: regular rhythm and abnormal rhythm irregularly irregular HEART SOUNDS: S1 normal heart sound present and S2 normal heart sound present GI: COMMON NORMALS: Normal to inspection, nondistended, normoactive bowel sounds present, Soft to palpation and non-tender PALPATION: Yes Soft to palpation Extremity: GENERAL: Yes edema (1+) OTHER: Proximal muscle weakness all around. Coarse tremors which appear to come and go on extremities, more so when she is moving, but not necessarily. No rigidity. Neuro: COMMON NORMALS: patient oriented x3 and moves all extremities SENSORIUM/ORIENTATION: Yes alert Skin: OTHER: Slightly larger area faint pinkish erythema of lower bilateral shins and areas of edema. No weeping. No open wounds. Urinary Catheter Management: [place]: Cath Placed During This Visit: yes Reason for Continuing Indwelling Catheter: Acute Urinary Retention or Obstruction Urinary Catheter Date of Insertion: 05/01/22 Urinary Catheter Time of Insertion: 18:30 Data 05/04/22 04:31 05/04/22 04:31 A&P Assessment and plan (1) Paroxysmal atrial fibrillation with RVR: Persistent tachycardia, amiodarone had to be discontinued due to history of reaction as per discussion with cardiology. Continues on Cardizem. With blood pressures which are frequently borderline low not much room to escalate. Given additional 0.25 mg digoxin IV. Requires close monitoring for possible toxicity due to also renal dysfunction. Requested digoxin level. Follow-up renal function requested Cardiology note reviewed. Continue oral Cardizem. Continue Eliquis. (2) Weakness: This has been gradually improving. Today he has felt unwell due to other reasons including ear pain as well as nausea and vomiting. Continues to be weak. Appreciate a note regarding neurologist assessment. Continue PT. Reviewed documentation. Though currently limited due to tachycardia. Was put in a chair. Today is stronger. Continue to withhold potential offending medications. Continue increased dose of prednisone. Seems pramipexole was resumed by overnight physician. Will monitor for any additional worsening of symptoms as this could be one of the offending medications. Hold Lyrica. Possible causes including toxicity of medications including pregabalin in setting of acute kidney injury. Abdomen occasional that may be contributing include prednisone which could lead to proximal weakness, although she cannot go without steroids due to pituitary insufficiency. Discussing with her she was recently also converted from Decadron 1 mg to prednisone 5 mg which is a somewhat lower dose. Blood pressures discussed with her are soft. Con sideration could be for a degree of adrenal insufficiency with noted mild hyponatremia. Serum cortisol requested and is low. UA not consistent with UTI Chest x-ray with mild pulmonary edema without definite infiltrate Supportive care Physical and Occupational Therapy ordered (3) Coarse tremors: With improvement today. 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 Requested repeat level. Hold losartan. For now hold diuretics, although did have dyspnea but this is likely related to tachycardia. Monitor for signs of fluid overload. Likely medication induced Hold home Bumex, reassess in a.m. Hold home metolazone Hold home losartan Trend renal function Avoid nephrotoxins (5) Hypothyroid: Continue Synthroid (6) Diabetes: On outpatient Ozempic Sliding scale insulin correction Avoid hypoglycemia (7) Atrial fibrillation: (8) CHF (congestive heart failure): Tolerated 40 mg IV Lasix well. Escalate to 40 mg IV twice daily. Requested repeat renal function. Some worsening of swelling. Qualifiers: Heart failure type: unspecified Heart failure chronicity: acute Qualified Code(s): I50.9 - Heart failure, unspecified (9) Otitis externa: Otitis externa right EAM. Added Ciprodex. (10) Nausea and vomiting: Increase Protonix to twice daily. Requested COVID-19 PCR. (11) Hyperkalemia: Reviewed potassium level, requested follow-up. Hyperkalemia 5.2. Stopped potassium supplement. Change diet to low potassium. Resume Lasix 40 mg IV twice daily. Plan Cellulitis: Superimposed on edematous areas of lower extremities. Worse today. Continue doxycycline. DVT prophylaxis: Apixaban CODE STATUS: Full code Attestations Medical Necessity Statement*: Continue admission for assessment management of difficult to control A-fib with RVR, requiring close monitoring with persistent tachycardia, CHF, cellulitis, and lady with CKD, electrolyte abnormality. Coding Level of Care Code 02574 High MDM includes risk/complexity, reviewing previous or external records, reviewing test results, ordering lab/other test(s) and discussion of management or test(s) w/ other healthcare professional Diagnoses Paroxysmal atrial fibrillation with RVR I48.0 Weakness R53.1 Coarse tremors G25.2 RODRIGUE (acute kidney injury) N17.9 Hypothyroid E03.9 Diabetes E11.9 Atrial fibrillation I48.91 CHF (congestive heart failure) I50.9 Heart failure type: unspecified Heart failure chronicity: acute Otitis externa H60.90 Nausea and vomiting R11.2 Hyperkalemia E87.5
[2022-05-04 22:11] LABS: Adenovirus Not Detected (NOT DETECT); Chlamydia Pneumoniae Not Detected (NOT DETECT); Coronavirus 229E,HKU1,NL63,OC4 Not Detected (NOT DETECT); Human Metapneumovirus Not Detected (NOT DETECT); Human Rhinovirus/Enterovirus Not Detected (NOT DETECT); Influenza A Not Detected (NOT DETECT); Influenza A H1 Not Detected (NOT DETECT); Influenza A H1-2009 Not Detected (NOT DETECT); Influenza A H3 Not Detected (NOT DETECT); Influenza B Not Detected (NOT DETECT); Mycoplasma Pneumoniae Not Detected (NOT DETECT); Parainfluenza Virus Type 1 Not Detected (NOT DETECT); Parainfluenza Virus Type 2 Not Detected (NOT DETECT); Parainfluenza Virus Type 3 Not Detected (NOT DETECT); Parainfluenza Virus Type 4 Not Detected (NOT DETECT); Respiratory Syncytial Virus A Not Detected (NOT DETECT); Respiratory Syncytial Virus B Not Detected (NOT DETECT); SARS-COV-2 Not Detected (NOT DETECT)
[2022-05-04 22:13] LABS: Glucose Point of Care 163 mg/dL (70-110)
[2022-05-05] VITALS (47 sets, daily range): BP systolic 89–132; BP diastolic 59–97; PULSE 86–150; RESP 16–34; TEMP 36.5–37; O2SAT 86–100
[2022-05-05] MEDS: ondansetron 2 mg/ML SDV 2 mL 4 MG IVP ×2 (01:12→12:59)
[2022-05-05] MEDS: doxycycline 100 MG in sodium chloride 0.9% (plus) 100 ML IV ×2 (01:12→13:02)
[2022-05-05] MEDS: ALPRAZolam 0.5 mg Tablet PO ×2 (01:48→21:19)
[2022-05-05 04:12] LABS: Basophils # 0.1 10^3/uL (0.0-0.1); Basophils % 1.1 %; Eosinophils # 0.4 10^3/uL (0.0-0.8); Eosinophils % 3.9 %; Hematocrit 36.5 % (37.0-47.0); Hemoglobin 10.4 g/dL (11.5-15.3); Lymphocytes # 1.9 10^3/uL (0.8-4.8); Lymphocytes % 20.3 %; Mean Corpuscular HGB Conc 28.5 g/dL (30.0-36.0); Mean Corpuscular Hemoglobin 19.8 pg (28.0-34.0); Mean Corpuscular Volume 69.4 fl (81-99); Mean Platelet Volume 10.3 fL (7.4-10.4); Monocytes % 10.8 %; Neutrophils # 5.75 10^3/uL (1.8-7.7); Neutrophils % 62.6 %; Nucleated Red Blood Cells % 0.2 %; Platelet Count 307 10^3/cmm (130-400); Red Blood Count 5.26 10^6/uL (4.1-5.3); Red Cell Distribution Width 20.1 % (12.1-15.1); White Blood Count 9.2 10^3/uL (4.0-10.0)
[2022-05-05 04:19] LABS: Digoxin 0.6 ng/mL (0.6-1.2)
[2022-05-05 04:32] LABS: Anion Gap 17.2 (5-19); Blood Urea Nitrogen 15 mg/dL (8-23); Calcium 9.6 mg/dL (8.5-10.5); Carbon Dioxide 25 mmol/L (22-29); Chloride 100 mmol/L (98-107); Glomerular Filtration Rate 44.5 mL/min (90-130); Glucose 102 mg/dL (65-115); Osmolality Calculated 287 mOsm/kg (285-295); Potassium 4.2 mmol/L (3.5-5.1); Sodium 138 mmol/L (136-145)
[2022-05-05 06:02] LABS: Glucose Point of Care 103 mg/dL (70-110)
[2022-05-05] MEDS: FUROsemide 10 mg/mL SDV 4mL 40 MG IVP (06:21)
[2022-05-05] MEDS: magnesium lactate 84 mg Tablet PO (06:22)
[2022-05-05] MEDS: levothyroxine 175 mcg Tablet PO (06:22)
--- NOTE | 2022-05-05 09:59 | PM.PN ---
Subjective Subjective: Patient is breathing is better this morning. Her shortness of breath is slowly improving. No chest pain, palpitations. No fever or chills. Has a dry cough. No new symptoms. Medications: Medication Review Details: Current Medications Albuterol/Ipratropium (Ipratropium-Albuterol 3 Ml Neb) 3 ml INHALATION Q6H.RESP PRN PRN Reason: SHORTNESS OF BREATH Alprazolam (Alprazolam 0.5 Mg Tablet) 0.5 mg PO TID PRN PRN Reason: ANXIETY Last Admin: 05/05/22 01:48 Dose: 0.5 mg Apixaban (Apixaban 5 Mg Tablet) 5 mg PO BID [facility] Last Admin: 05/04/22 18:43 Dose: 5 mg Ciprofloxacin/Dexamethasone (Ciprofloxacin-Dexameth Otic Susp 7.5 Ml Btl) 4 drop EAR-RIGHT BID [facility]; Protocol Dextrose (Dextrose 50% Syringe 50 Ml) 25 ml IVP ONCE PRN; Protocol PRN Reason: hypoglycemia protocol Dextrose (Dextrose 50% Syringe 50 Ml) 50 ml IVP PRN PRN; Protocol PRN Reason: hypoglycemia protocol Diltiazem HCl (Diltiazem Er (24hr) 120 Mg Capsule) 120 mg PO BID [facility] Last Admin: 05/04/22 18:44 Dose: 120 mg Furosemide (Furosemide 10 Mg/Ml Sdv 4ml) 40 mg IVP Q12H [facility] Last Admin: 05/05/22 06:21 Dose: 40 mg Glucagon (Glucagon 1 Mg/Ml Inj 1 Ml) 1 mg IM ONCE PRN; Protocol PRN Reason: Adult Acute Hypoglycemia Prot. Hydroxyzine Pamoate (Hydroxyzine 25 Mg Capsule) 25 mg PO BID PRN PRN Reason: Anxiety Last Admin: 05/04/22 22:03 Dose: 25 mg Dextrose (D5w) 500 mls @ 100 mls/hr IV ONCE PRN; Protocol PRN Reason: Adult Acute Hypoglycemia Prot Doxycycline Hyclate 100 mg/ (Sodium Chloride) 100 mls @ 100 mls/hr IV Q12H [facility]; Protocol Last Infusion: 05/05/22 08:13 Dose: Infused Insulin Human Lispro (Insulin Lispro 100 Unit/1 Ml) 0 unit SUBCUT TIDWM [facility]; Protocol Last Admin: 05/05/22 08:13 Dose: Not Given Lanolin (Lanolin Oint 7 Gm) 1 applic TOPICAL PRN PRN PRN Reason: DRYNESS Last Admin: 05/04/22 22:00 Dose: 1 applic Levothyroxine Sodium (Levothyroxine 175 Mcg Tablet) 175 mcg PO QAM [facility] Last Admin: 05/05/22 06:22 Dose: 175 mcg Magnesium Lactate (Magnesium Lactate 84 Mg Tablet) 84 mg PO QAM [facility] Last Admin: 05/05/22 06:22 Dose: 84 mg Ondansetron HCl (Ondansetron 2 Mg/Ml Sdv 2 Ml) 4 mg IVP Q6H PRN PRN Reason: NAUSEA AND VOMITING Last Admin: 05/05/22 01:12 Dose: 4 mg Pantoprazole Sodium (Pantoprazole Dr 40 Mg Tablet) 40 mg PO BID [facility] Last Admin: 05/04/22 18:43 Dose: 40 mg Polyethylene Glycol (Polyethylene Glycol 3350 Pkt 17 Gm) 17 gm PO DAILY PRN PRN Reason: Constipation Pramipexole Dihydrochloride (Pramipexole 0.25 Mg Tablet) 1 mg PO BEDTIME [facility] Last Admin: 05/04/22 21:57 Dose: 1 mg Prednisone (Prednisone 5 Mg Tablet) 7 mg PO DAILY [facility] Last Admin: 05/04/22 08:19 Dose: 7 mg Pregabalin (Pregabalin 150 Mg Capsule) 150 mg PO BID [facility] Last Admin: 05/02/22 08:17 Dose: 150 mg Vitals/I&O/Wt Last Vital Signs Temp 98.2 F 05/05/22 07:29 Pulse 136 H 05/05/22 08:20 Resp 18 05/05/22 08:20 BP 108/76 05/05/22 07:29 Pulse Ox 92 05/05/22 08:20 O2 Del Method 05/05/22 08:20 O2 Flow Rate 2 05/05/22 08:20 05/04/22 05/05/22 05/05/22 22:59 06:59 14:59 Intake Total 700 / 940 360 / 1300 100 / 100 Output Total 1150 / 1150 1480 / 2630 Balance -450 / -210 -1120 / -1330 100 / 100 Physical Exam Narrative: GENERAL: The patient is alert and oriented times three. Not in any acute distress. HEENT: No significant pallor, icterus or lymphadenopathy.Oral cavity: There are no mucous membrane lesions. NECK: Trachea appears to be central. No masses noted. No JVD or thyromegaly appreciated. RESPIRATORY: Chest is symmetrical. No intercostals muscle retraction or any accessory muscle activation. There is no chest wall tenderness. Breath sounds are heard bilaterally. No rales or rhonchi heard. No evidence of any consolidation. BREASTS: Deferred. HEART: The heart sounds are normal. No S3 or S4. No significant murmurs. No pericardial rub ABDOMEN: No organomegaly appreciated. Bowel sounds are normally heard bilaterally with no rales or rhonchi. : Deferred. RECTAL: Deferred. LYMPHATIC: No lymphadenopathy noted in the neck. EXTREMITIES: No edema or cyanosis. No clubbing. MUSCULOSKELETAL: No acute joint deformities or swelling SKIN: There are no significant rashes or ecchymosis NEUROPSYCHIATRIC: The patient is alert and oriented x3. Appears to be in a good mood. No tremors or rigidity noted. Urinary Catheter Management: [place]: Cath Placed During This Visit: yes Reason for Continuing Indwelling Catheter: Accurate Measurement of Urinary Output in Critically Ill Patients Urinary Catheter Date of Insertion: 05/01/22 Urinary Catheter Time of Insertion: 18:30 Data 05/05/22 02:59 05/05/22 02:59 Other Labs: Laboratory Last Values WBC 9.2 10^3/uL (4.0-10.0) 05/05/22 02:59 RBC 5.26 10^6/uL (4.1-5.3) 05/05/22 02:59 Hgb 10.4 g/dL (11.5-15.3) L 05/05/22 02:59 Hct 36.5 % (37.0-47.0) L 05/05/22 02:59 MCV 69.4 fl (81-99) L 05/05/22 02:59 MCH 19.8 pg (28.0-34.0) L 05/05/22 02:59 MCHC 28.5 g/dL (30.0-36.0) L D 05/05/22 02:59 RDW 20.1 % (12.1-15.1) H 05/05/22 02:59 Plt Count 307 10^3/cmm (130-400) 05/05/22 02:59 MPV 10.3 fL (7.4-10.4) 05/05/22 02:59 Neut % (Auto) 62.6 % 05/05/22 02:59 Lymph % (Auto) 20.3 % 05/05/22 02:59 [place] % (Auto) 10.8 % 05/05/22 02:59 Eos % (Auto) 3.9 % 05/05/22 02:59 Baso % (Auto) 1.1 % 05/05/22 02:59 Neut # (Auto) 5.75 10^3/uL (1.8-7.7) 05/05/22 02:59 Lymph # (Auto) 1.9 10^3/uL (0.8-4.8) 05/05/22 02:59 [place] # (Auto) 1.0 10^3/uL (0.2-0.9) H 05/05/22 02:59 Eos # (Auto) 0.4 10^3/uL (0.0-0.8) 05/05/22 02:59 Baso # (Auto) 0.1 10^3/uL (0.0-0.1) 05/05/22 02:59 Nucleated RBC % (auto) 0.2 % 05/05/22 02:59 Nucleated RBCs # 0.0 /100WBC 05/05/22 02:59 Sodium 138 mmol/L (136-145) 05/05/22 02:59 Potassium 4.2 mmol/L (3.5-5.1) 05/05/22 02:59 Chloride 100 mmol/L (98-107) 05/05/22 02:59 Carbon Dioxide 25 mmol/L (22-29) 05/05/22 02:59 Anion Gap 17.2 (5-19) 05/05/22 02:59 BUN 15 mg/dL (8-23) 05/05/22 02:59 Creatinine 1.2 mg/dL (0.5-0.9) H 05/05/22 02:59 GFR Calculation 44.5 mL/min (90-130) L 05/05/22 02:59 Glucose 102 mg/dL (65-115) 05/05/22 02:59 POC Glucose 103 mg/dL (70-110) 05/05/22 05:47 Calculated Osmolality 287 mOsm/kg (285-295) 05/05/22 02:59 Calcium 9.6 mg/dL (8.5-10.5) 05/05/22 02:59 Phosphorus 2.9 mg/dL (2.5-4.5) 05/03/22 03:10 Magnesium 2.5 mg/dL (1.7-2.3) H 05/03/22 03:10 Total Bilirubin 0.3 mg/dL (0.15-1.2) 05/01/22 19:51 AST 16 U/L (0-32) 05/01/22 19:51 ALT 26 U/L (0-33) 05/01/22 19:51 Alkaline Phosphatase 126 U/L (35-105) H 05/01/22 19:51 NT-Pro-B Natriuret Pep 222 pg/mL (0-125) H 05/01/22 19:51 Total Protein 5.9 g/dL (6.6-8.7) L 05/01/22 19:51 Albumin 3.3 g/dL (3.5-5.2) L 05/01/22 19:51 Globulin 2.6 g/dL (1.3-4.6) 05/01/22 19:51 Random Cortisol 0.68 ug/dL (2.47-19.5) L 05/01/22 19:51 Urine Color Yellow (Yellow) 05/01/22 18:38 Urine Appearance Clear (CLEAR) 05/01/22 18:38 Urine pH 5 (5-7) 05/01/22 18:38 Ur Specific [place] 1.015 (1.005-1.030) 05/01/22 18:38 Urine Protein Neg (Negative) 05/01/22 18:38 Urine Glucose (UA) 2+ (Normal) H 05/01/22 18:38 Urine Ketones Negative (Negative) 05/01/22 18:38 Urine Blood Neg (Negative) 05/01/22 18:38 Urine Nitrate Negative (Negative) 05/01/22 18:38 Urine Bilirubin Neg (Negative) 05/01/22 18:38 Urine Urobilinogen Neg mg/dL (Negative) 05/01/22 18:38 Ur Leukocyte Esterase Negative (Negative) 05/01/22 18:38 Digoxin 0.6 ng/mL (0.6-1.2) 05/05/22 02:59 Coronavirus 229E (PCR) Not detected (NOT DETECT) 05/04/22 20:15 SARS-CoV-2 (PCR) Not detected (NOT DETECT) 05/04/22 20:15 A&P Assessment and plan (1) Intermittent atrial fibrillation: I will increase the dose of the Cardizem to 300 mg p.o. daily. May give another 0.25 mg of IV digoxin. Her heart rate will be closely monitored. (2) Acute on chronic diastolic (congestive) heart failure: Patient may be carefully treated with IV diuretics. We will continue on the as needed Lasix. (3) Steroid dependence: Management as per the primary. (4) Chronic kidney disease, stage 3a: Management as per the primary. Currently the kidney function seems to be appropriate. Plan Discussed with the patient the option of doing a cardioversion . Apparently in the past the cardioversion did not work. She is scared about this. So we will try to avoid this. Attestations Medical Necessity Statement*: Patient requires continued hospital stay for close monitoring and further management Coding Level of Care Code 53778 Diagnoses Intermittent atrial fibrillation I48.0 Acute on chronic diastolic (congestive) heart failure I50.33 Steroid dependence F19.20 Chronic kidney disease, stage 3a N18.31
[2022-05-05] MEDS: pantoprazole DR 40 mg Tablet PO ×2 (10:07→17:22)
[2022-05-05] MEDS: predniSONE 5 mg Tablet 7 MG PO (10:07)
[2022-05-05] MEDS: apixaban 5 mg Tablet PO ×2 (10:08→17:22)
[2022-05-05] MEDS: dilTIAZem ER (24HR) 120 mg Capsule PO (10:08)
[2022-05-05] MEDS: ciprofloxacin-dexameth Otic Susp 7.5 mL Btl 4 DROP EAR-RIGHT (10:15)
[2022-05-05] MEDS: digoxin 250 mcg/ml INJ 2 mL 125 MCG IVP (10:16)
[2022-05-05] MEDS: dilTIAZem ER (24HR) 180 mg Capsule PO (10:17)
--- NOTE | 2022-05-05 10:42 | PC.CHAP ---
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 toolsmith visit [] Patient/Family/Request visit [] Outpatient visit [] Follow-up visit [] Physician referral [] Code/Alert [x] Routine visit [] Staff referral [] Actively dying [] Patient sleeping [] Family support [] [] Out of room [] Palliative care [] [x] Receiving care in room [] Pre-surgical visit [] Trauma [] Long length of stay [] ICU visit [] Other: Relational/Emotional Strength [x] Patient feels connected with others/family/visitors/staff [] Distress [] Loneliness/isolation [] Abandonment Spirituality of Patient [x] Person of [place] [] Attends Jew of their [place] [x] Believes in Prayer [] Reads Bible or Zoroastrian materials [] There are Spiritual issues to be addressed Radiology Resident Interventions [x] Prayer [x] Active listening [x] Non-anxious presence [x] Spiritual/emotional support [] Crisis/trauma care [x] Spiritual counseling [] Bereavement support [] Provided bereavement packet [] Provided Bible/devotional materials [] Provided toy/stuffed animal, coloring book to patient or family member [] Provided Communion [] Anointing/[place] [] Salvation [x] Completed spiritual assessment [] Other: Impact on Illness or Injury [] Angry [] Fearful [x] Anxious [] Often cries [] Exhaustion [x] Unable to work [] Unable to attend methodist [] Unable to walk/stand [] Unable to read [] Unable to drive [] Unable to eat/drink [] Unable to sleep [] Unable to be with family [] Patient intubated [] Other: Summary not sure about what needs to be done heart well go home Time spent with patient 10 mins
--- NOTE | 2022-05-05 11:57 | PC.OT ---
OT TREATMENT ATTEMPTED THIS A.M. PATIENT HR IS 145-158 @ REST. WILL ATTEMPT AGAIN IN P.M.
[2022-05-05 12:34] LABS: Glucose Point of Care 103 mg/dL (70-110)
[2022-05-05] MEDS: hydrocortisone 100 mg/2 mL SDV IVP (12:56)
[2022-05-05] MEDS: midodrine 5 mg TABLET PO ×2 (12:57→21:20)
--- NOTE | 2022-05-05 15:50 | PC.OT ---
OT TREATMENT HELD TODAY DUE TO LOW BP AND INCREASED HR. PATIENT TRANSFERRED TO ICU. WILL ATTEMPT AGAIN TOMORROW IF PATIENT IS ABLE.
--- NOTE | 2022-05-05 16:00 | PC.NURSE ---
Pt was brought to ICU via bed on room air. All vital signs WNL. All belongings with who is at bedside.
[2022-05-05 17:08] LABS: Glucose Point of Care 168 mg/dL (70-110)
[2022-05-05] MEDS: insulin lispro 100 unit/1 mL SUBCUT (17:22)
--- NOTE | 2022-05-05 17:49 | PC.NURSE ---
This nurse answered call light and patients nose was bleeding. She stated this was her 4th nose bleed today. Bleeding stopped shortly after.
--- NOTE | 2022-05-05 21:06 | PM.PN ---
Subjective Subjective: This morning she is still having pain around the right ear spreading around the right cheek. No chest discomfort currently. Had chest pain last night. Medications: Medication Review Details: Current Medications Albuterol/Ipratropium (Ipratropium-Albuterol 3 Ml Neb) 3 ml INHALATION Q6H.RESP PRN PRN Reason: SHORTNESS OF BREATH Alprazolam (Alprazolam 0.5 Mg Tablet) 0.5 mg PO TID PRN PRN Reason: ANXIETY Last Admin: 05/05/22 01:48 Dose: 0.5 mg Apixaban (Apixaban 5 Mg Tablet) 5 mg PO BID [facility] Last Admin: 05/04/22 18:43 Dose: 5 mg Ciprofloxacin/Dexamethasone (Ciprofloxacin-Dexameth Otic Susp 7.5 Ml Btl) 4 drop EAR-RIGHT BID [facility]; Protocol Dextrose (Dextrose 50% Syringe 50 Ml) 25 ml IVP ONCE PRN; Protocol PRN Reason: hypoglycemia protocol Dextrose (Dextrose 50% Syringe 50 Ml) 50 ml IVP PRN PRN; Protocol PRN Reason: hypoglycemia protocol Diltiazem HCl (Diltiazem Er (24hr) 120 Mg Capsule) 120 mg PO BID [facility] Last Admin: 05/04/22 18:44 Dose: 120 mg Furosemide (Furosemide 10 Mg/Ml Sdv 4ml) 40 mg IVP Q12H [facility] Last Admin: 05/05/22 06:21 Dose: 40 mg Glucagon (Glucagon 1 Mg/Ml Inj 1 Ml) 1 mg IM ONCE PRN; Protocol PRN Reason: Adult Acute Hypoglycemia Prot. Hydroxyzine Pamoate (Hydroxyzine 25 Mg Capsule) 25 mg PO BID PRN PRN Reason: Anxiety Last Admin: 05/04/22 22:03 Dose: 25 mg Dextrose (D5w) 500 mls @ 100 mls/hr IV ONCE [facility]; Protocol PRN Reason: Adult Acute Hypoglycemia Prot Doxycycline Hyclate 100 mg/ (Sodium Chloride) 100 mls @ 100 mls/hr IV Q12H [facility]; Protocol Last Infusion: 05/05/22 08:13 Dose: Infused Insulin Human Lispro (Insulin Lispro 100 Unit/1 Ml) 0 unit SUBCUT TIDWM [facility]; Protocol Last Admin: 05/05/22 08:13 Dose: Not Given Lanolin (Lanolin Oint 7 Gm) 1 applic TOPICAL PRN PRN PRN Reason: DRYNESS Last Admin: 05/04/22 22:00 Dose: 1 applic Levothyroxine Sodium (Levothyroxine 175 Mcg Tablet) 175 mcg PO QAM [facility] Last Admin: 05/05/22 06:22 Dose: 175 mcg Magnesium Lactate (Magnesium Lactate 84 Mg Tablet) 84 mg PO QAM [facility] Last Admin: 05/05/22 06:22 Dose: 84 mg Ondansetron HCl (Ondansetron 2 Mg/Ml Sdv 2 Ml) 4 mg IVP Q6H PRN PRN Reason: NAUSEA AND VOMITING Last Admin: 05/05/22 01:12 Dose: 4 mg Pantoprazole Sodium (Pantoprazole Dr 40 Mg Tablet) 40 mg PO BID [facility] Last Admin: 05/04/22 18:43 Dose: 40 mg Polyethylene Glycol (Polyethylene Glycol 3350 Pkt 17 Gm) 17 gm PO DAILY PRN PRN Reason: Constipation Pramipexole Dihydrochloride (Pramipexole 0.25 Mg Tablet) 1 mg PO BEDTIME [facility] Last Admin: 05/04/22 21:57 Dose: 1 mg Prednisone (Prednisone 5 Mg Tablet) 7 mg PO DAILY [facility] Last Admin: 05/04/22 08:19 Dose: 7 mg Pregabalin (Pregabalin 150 Mg Capsule) 150 mg PO BID [facility] Last Admin: 05/02/22 08:17 Dose: 150 mg Vitals/I&O/Wt Last Vital Signs Temp 98.6 F 05/05/22 14:01 Pulse 148 H 05/05/22 20:00 Resp 22 H 05/05/22 20:00 BP 108/91 05/05/22 20:00 Pulse Ox 94 05/05/22 20:00 O2 Del Method 05/05/22 20:00 O2 Flow Rate 2 05/05/22 20:00 05/05/22 05/05/22 05/05/22 06:59 14:59 22:59 Intake Total 360 / 1300 100 / 100 360 / 460 Output Total 1480 / 2630 1850 / 1850 Balance -1120 / -1330 -1750 / -1750 360 / -1390 Physical Exam Narrative: by her side. Const: COMMON NORMALS: patient oriented x3 and alert GENERAL APPEARANCE: cooperative NUTRITIONAL APPEARANCE: obese morbidly obese ORIENTATION/CONSCIOUSNESS: Yes awake HENMT: COMMON NORMALS: oropharynx normal EXTERNAL AUDITORY CANAL: Abnormal EAC present EAC laterality: right Details: erythema Neck/C-Spine: COMMON NORMALS: no JVD Resp: COMMON NORMALS: normal respiratory effort and clear to auscultation bilaterally AUSCULTATION: clear to auscultation bilaterally Cardio: COMMON NORMALS: no JVD, regular rhythm, S1 normal heart sound present, S2 normal heart sound present and No murmurs present (Cardio) RATE: tachycardic RHYTHM: regular rhythm and abnormal rhythm irregularly irregular HEART SOUNDS: S1 normal heart sound present and S2 normal heart sound present GI: COMMON NORMALS: Normal to inspection, nondistended, normoactive bowel sounds present, Soft to palpation and non-tender PALPATION: Yes Soft to palpation Extremity: GENERAL: Yes edema (1+) OTHER: Proximal muscle weakness all around. Coarse tremors which appear to come and go on extremities, more so when she is moving, but not necessarily. No rigidity. Neuro: COMMON NORMALS: patient oriented x3 and moves all extremities SENSORIUM/ORIENTATION: Yes alert Skin: OTHER: Faint red erythema of lower bilateral shins. No weeping. No open wounds. Urinary Catheter Management: [place]: Cath Placed During This Visit: yes Reason for Continuing Indwelling Catheter: Accurate Measurement of Urinary Output in Critically Ill Patients Urinary Catheter Date of Insertion: 05/01/22 Urinary Catheter Time of Insertion: 18:30 Data 05/05/22 02:59 05/05/22 02:59 A&P Assessment and plan (1) Paroxysmal atrial fibrillation with RVR: Difficult to treat atrial fibrillation with with RVR. With persistent tachycardia. Discussed with cardiology. She received additional dose of digoxin. Diltiazem dose was increased today. However, this afternoon with episode of hypotension. He did diurese well last night as well and is in negative balance. Perhaps combination of the 2 caused her to have an episode of low blood pressure. With hypotension requested a small bolus 250 mL saline. Initially requested Levophed drip. Blood pressure has improved, however. Started on midodrine. Given a dose of hydrocortisone. Due to hypotension episode, persistent tachycardia discussed with her and cardiology, decision made for further monitoring in ICU. Follow-up magnesium level requested. Cardiology further discussed with her cardioversion, although she was reluctant to do it and for now declined as per prior discussion with cardiology certainly chance of success of maintaining sinus rhythm would be lower. Cardiology documentation reviewed. Continue oral Cardizem. Continue Eliquis. After episode of hypotension, also with underlying CKD requires close monitoring of renal function with medication adjustments. Repeat chemistry requested. (2) CHF (congestive heart failure): Yesterday diuresed well, in negative balance per review of I&O charting. With episode of hypotension today, however. Held Lasix for now, monitor blood pressure, resume additional diuresis depending on vitals. Has had worsening of swelling day before yesterday. Qualifiers: Heart failure type: unspecified Heart failure chronicity: acute Qualified Code(s): I50.9 - Heart failure, unspecified (3) Cellulitis: Worsened cellulitis. Change antibiotic to vancomycin. Monitor vancomycin levels, renal function given CKD, anticipated RODRIGUE after hypotension episode. (4) Otitis externa: Otitis externa right EAM. She requested additional ibuprofen, however, discussed with her with episode of hypotension and history of chronic kidney disease already at risk of renal failure. Continue Ciprodex. Added tramadol. (5) Weakness: This has been gradually improving. Tremors appear to have resolved. Continues to be weak. Appreciate a note regarding neurologist assessment. Continue PT. Reviewed documentation. Though currently limited due to tachycardia. Was put in a chair. Today is stronger. Continue to withhold potential offending medications. Continue increased dose of prednisone. Pramipexole had been resumed. So far tolerating. Will monitor for any additional worsening of symptoms as this could be one of the offending medications. If continues to do well in terms of weakness and blood pressure allows, consider resuming lower dose Lyrica. Possible causes including toxicity of medications including pregabalin in setting of acute kidney injury. Abdomen occasional that may be contributing include prednisone which could lead to proximal weakness, although she cannot go without steroids due to pituitary insufficiency. Discussing with her she was recently also converted from Decadron 1 mg to prednisone 5 mg which is a somewhat lower dose. Blood pressures discussed with her are soft. Consideration could be for a degree of adrenal insufficiency with noted mild hyponatremia. Serum cortisol requested and is low. UA not consistent with UTI Chest x-ray with mild pulmonary edema without definite infiltrate Supportive care Physical and Occupational Therapy ordered (6) Coarse tremors: With improvement, so far. Resolved. 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 Monitor closely with medication adjustments in setting of CKD, also with hypotension anticipated acute kidney injury. Requested repeat level. Hold losartan. For now hold diuretics, although did have dyspnea but this is likely related to tachycardia. Monitor for signs of fluid overload. Likely medication induced Hold home Bumex, reassess in a.m. Hold home metolazone Hold home losartan Trend renal function Avoid nephrotoxins (8) Hypothyroid: Continue Synthroid (9) Diabetes: On outpatient Ozempic Sliding scale insulin correction Avoid hypoglycemia (10) Atrial fibrillation: (11) Nausea and vomiting: Increase Protonix to twice daily. Requested COVID-19 PCR. (12) Hyperkalemia: Reviewed potassium level, requested follow-up. Hyperkalemia 5.2. Stopped potassium supplement. Change diet to low potassium. Resume Lasix 40 mg IV twice daily. Plan DVT prophylaxis: Apixaban CODE STATUS: Full code Attestations Medical Necessity Statement*: Continue admission for assessment management of difficult to control A-fib with RVR, episodic hypotension, CHF, cellulitis, and lady with multiple underlying comorbidities including CKD, at high risk of life-threatening hypotension, medication toxicity. Diagnoses Paroxysmal atrial fibrillation with RVR I48.0 CHF (congestive heart failure) I50.9 Heart failure type: unspecified Heart failure chronicity: acute Cellulitis L03.90 Otitis externa H60.90 Weakness R53.1 Coarse tremors G25.2 RODRIGUE (acute kidney injury) N17.9 Hypothyroid E03.9 Diabetes E11.9 Atrial fibrillation I48.91 Nausea and vomiting R11.2 Hyperkalemia E87.5
[2022-05-05] MEDS: pramipexole 0.25 mg Tablet 1 MG PO (21:19)
[2022-05-05] MEDS: TRAMadol 50 mg Tablet PO (21:20)
[2022-05-05 21:59] LABS: Glucose Point of Care 175 mg/dL (70-110)
[2022-05-06] VITALS (25 sets, daily range): BP systolic 101–142; BP diastolic 58–102; PULSE 85–149; RESP 13–35; TEMP 36.1–36.7; O2SAT 84–99
--- NOTE | 2022-05-06 01:52 | PC.NURSE ---
Report received from MYRON Almaguer, assumed care of patient.
[2022-05-06] MEDS: TRAMadol 50 mg Tablet PO (04:36)
[2022-05-06 04:56] LABS: Basophils # 0.1 10^3/uL (0.0-0.1); Basophils % 0.9 %; Eosinophils # 0.2 10^3/uL (0.0-0.8); Hematocrit 37.3 % (37.0-47.0); Hemoglobin 10.2 g/dL (11.5-15.3); Lymphocytes # 1.8 10^3/uL (0.8-4.8); Lymphocytes % 16.4 %; Mean Corpuscular HGB Conc 27.3 g/dL (30.0-36.0); Mean Corpuscular Hemoglobin 19.5 pg (28.0-34.0); Mean Corpuscular Volume 71.5 fl (81-99); Mean Platelet Volume 8.9 fL (7.4-10.4); Monocytes # 1.2 10^3/uL (0.2-0.9); Monocytes % 11.2 %; Neutrophils # 7.46 10^3/uL (1.8-7.7); Neutrophils % 68.7 %; Nucleated Red Blood Cells % 0.2 %; Platelet Count 292 10^3/cmm (130-400); Red Blood Count 5.22 10^6/uL (4.1-5.3); Red Cell Distribution Width 20.2 % (12.1-15.1); White Blood Count 10.9 10^3/uL (4.0-10.0)
[2022-05-06 05:17] LABS: Anion Gap 10.2 (5-19); Blood Urea Nitrogen 17 mg/dL (8-23); Calcium 9.6 mg/dL (8.5-10.5); Carbon Dioxide 30 mmol/L (22-29); Chloride 102 mmol/L (98-107); Glomerular Filtration Rate 34.4 mL/min (90-130); Glucose 100 mg/dL (65-115); Magnesium 2.1 mg/dL (1.7-2.3); Osmolality Calculated 288 mOsm/kg (285-295); Potassium 4.2 mmol/L (3.5-5.1); Sodium 138 mmol/L (136-145)
[2022-05-06] MEDS: magnesium lactate 84 mg Tablet PO (06:02)
[2022-05-06] MEDS: levothyroxine 175 mcg Tablet PO (06:02)
[2022-05-06 07:18] LABS: Glucose Point of Care 98 mg/dL (70-110)
[2022-05-06] MEDS: ondansetron 2 mg/ML SDV 2 mL 8 MG IVP (09:06)
--- NOTE | 2022-05-06 09:13 | PC.NURSE ---
nausea only small amt emisis noted zofran given per doctor order .. heart rate elevated at this time .. monitor blood pressure
--- NOTE | 2022-05-06 09:53 | XRR_ITS ---
PROCEDURE INFORMATION: Exam: XR Chest Exam date and time: 05/06/2022 10:00 AM Age: 71 years old Clinical indication: Shortness of breath; Additional info: SOB TECHNIQUE: Imaging protocol: Radiologic exam of the chest. Views: 1 view. COMPARISON: CR XR chest 1V portable [id number] 05/02/2022 3:31 PM FINDINGS: Tubes, catheters and devices: Thoracic nerve stimulator is in place. Lungs: Unremarkable. No consolidation. Pleural spaces: Unremarkable. No pleural effusion. No pneumothorax. Heart/Mediastinum: Unremarkable. No cardiomegaly. Bones/joints: Unremarkable. XR/XR chest 1V portable [id number] IMPRESSION: No acute cardiopulmonary abnormality.
[2022-05-06] MEDS: promethazine 25 mg/mL SDV 1 mL IM (09:58)
--- NOTE | 2022-05-06 10:00 | XRR_ITS ---
PROCEDURE INFORMATION: Exam: XR Abdomen Exam date and time: 05/06/2022 10:03 AM Age: 71 years old Clinical indication: Nausea and vomiting; Additional info: N/v new order for one view TECHNIQUE: Imaging protocol: Radiologic exam of the abdomen. Views: Frontal supine view of the abdomen. 1 View. COMPARISON: CT kidney stone [id number] 01/16/2022 11:59 PM FINDINGS: Tubes, catheters and devices: Thoracic nerve stimulator is in place. Gastrointestinal tract: Paucity of bowel gas in the upper abdomen. Bones/joints: Unremarkable. XR/XR abdomen 1V* [id number] IMPRESSION: Paucity of bowel gas in the upper abdomen.
--- NOTE | 2022-05-06 10:02 | P.PN_ITS ---
Subjective Subjective: Patient was brought down to the ICU yesterday. She had some episodes of hypotension. Currently she is very nauseous and has some respiratory difficulty. She has abdominal discomfort and vomiting. No fever or chills. The heart rate was in the 70s at rest. But when she started having the nausea and vomiting, the heart rate went up into the 130s and 140s. Medications: Medication Review Details: Current Medications Albuterol/Ipratropium (Ipratropium-Albuterol 3 Ml Neb) 3 ml INHALATION Q6H.RESP PRN PRN Reason: SHORTNESS OF BREATH Alprazolam (Alprazolam 0.5 Mg Tablet) 0.5 mg PO TID PRN PRN Reason: ANXIETY Last Admin: 05/05/22 21:19 Dose: 0.5 mg Apixaban (Apixaban 5 Mg Tablet) 5 mg PO BID RAMIRO Last Admin: 05/05/22 17:22 Dose: 5 mg Capsaicin (Capsaicin 0.025% Cream 60 Gm) 1 applic TOPICAL QID PRN PRN Reason: PAIN Ciprofloxacin/Dexamethasone (Ciprofloxacin-Dexameth Otic Susp 7.5 Ml Btl) 4 drop EAR-RIGHT BID RAMIRO; Protocol Last Admin: 05/05/22 19:02 Dose: Not Given Dextrose (Dextrose 50% Syringe 50 Ml) 25 ml IVP ONCE PRN; Protocol PRN Reason: hypoglycemia protocol Dextrose (Dextrose 50% Syringe 50 Ml) 50 ml IVP PRN PRN; Protocol PRN Reason: hypoglycemia protocol Diltiazem HCl (Diltiazem Er (24hr) 300 Mg Capsule) 300 mg PO DAILY RAMIRO Glucagon (Glucagon 1 Mg/Ml Inj 1 Ml) 1 mg IM ONCE PRN; Protocol PRN Reason: Adult Acute Hypoglycemia Prot. Hydroxyzine Pamoate (Hydroxyzine 25 Mg Capsule) 25 mg PO BID PRN PRN Reason: Anxiety Last Admin: 05/04/22 22:03 Dose: 25 mg Dextrose (D5w) 500 mls @ 100 mls/hr IV ONCE PRN; Protocol PRN Reason: Adult Acute Hypoglycemia Prot Vancomycin HCl 2,000 mg/ (Sodium Chloride) 500 mls @ 250 mls/hr IV Q24H RAMIRO Last Infusion: 05/05/22 16:42 Dose: Infused Insulin Human Lispro (Insulin Lispro 100 Unit/1 Ml) 0 unit SUBCUT TIDWM [facility]; Protocol Last Admin: 05/06/22 07:32 Dose: Not Given Lanolin (Lanolin Oint 7 Gm) 1 applic TOPICAL PRN PRN PRN Reason: DRYNESS Last Admin: 05/04/22 22:00 Dose: 1 applic Levothyroxine Sodium (Levothyroxine 175 Mcg Tablet) 175 mcg PO QAM [facility] Last Admin: 05/06/22 06:02 Dose: 175 mcg Lorazepam (Lorazepam 2 Mg/Ml Inj 1 Ml) 0.5 mg IM Q12H PRN PRN Reason: severe nausea/vommiting Magnesium Lactate (Magnesium Lactate 84 Mg Tablet) 84 mg PO QAM [facility] Last Admin: 05/06/22 06:02 Dose: 84 mg Midodrine (Midodrine 5 Mg Tablet) 5 mg PO TID [facility] Last Admin: 05/05/22 21:20 Dose: 5 mg Ondansetron HCl (Ondansetron 2 Mg/Ml Sdv 2 Ml) 4 mg IVP Q6H PRN PRN Reason: NAUSEA AND VOMITING Last Admin: 05/05/22 12:59 Dose: 4 mg Ondansetron HCl (Ondansetron 2 Mg/Ml Sdv 2 Ml) 8 mg IVP Q6H PRN PRN Reason: NAUSEA AND VOMITING Last Admin: 05/06/22 09:06 Dose: 8 mg Pantoprazole Sodium (Pantoprazole Dr 40 Mg Tablet) 40 mg PO BID [facility] Last Admin: 05/05/22 17:22 Dose: 40 mg Polyethylene Glycol (Polyethylene Glycol 3350 Pkt 17 Gm) 17 gm PO DAILY PRN PRN Reason: Constipation Pramipexole Dihydrochloride (Pramipexole 0.25 Mg Tablet) 1 mg PO BEDTIME [facility] Last Admin: 05/05/22 21:19 Dose: 1 mg Prednisone (Prednisone 5 Mg Tablet) 7 mg PO DAILY [facility] Last Admin: 05/05/22 10:07 Dose: 7 mg Pregabalin (Pregabalin 150 Mg Capsule) 150 mg PO BID [facility] Last Admin: 05/02/22 08:17 Dose: 150 mg Promethazine HCl (Promethazine 25 Mg/Ml Sdv 1 Ml) 25 mg IM Q6H PRN PRN Reason: NAUSEA Last Admin: 05/06/22 09:58 Dose: 25 mg Tramadol HCl (Tramadol 50 Mg Tablet) 50 mg PO Q6H PRN PRN Reason: MODERATE PAIN Last Admin: 05/06/22 04:36 Dose: 50 mg Vitals/I&O/Wt Last Vital Signs Temp 97.0 F L 05/06/22 04:00 Pulse 98 05/06/22 05:53 Resp 23 H 05/06/22 04:00 BP 113/79 05/06/22 04:00 Pulse Ox 89 L 05/06/22 04:00 O2 Del Method 05/06/22 04:00 O2 Flow Rate 2 05/05/22 20:00 05/05/22 05/06/22 05/06/22 22:59 06:59 14:59 Intake Total 980 / 1080 200 / 1280 Output Total 850 / 2700 Balance 980 / -770 -650 / -1420 Weight last 48 hrs Weight 338 lb 6.4 oz Physical Exam Narrative: GENERAL: The patient is alert and anxious. Somewhat tachypneic. Found to be very nauseous HEENT: No significant pallor, icterus or lymphadenopathy.Oral cavity: There are no mucous membrane lesions. NECK: Trachea appears to be central. No masses noted. No JVD or thyromegaly appreciated. RESPIRATORY: Chest is symmetrical. No intercostals muscle retraction or any accessory muscle activation. There is no chest wall tenderness. Breath sounds are heard bilaterally. Scattered expiratory wheezing. Positive breath sounds are diminished in the base BREASTS: Deferred. HEART: The heart sounds are normal. No S3 or S4. No significant murmurs. No pericardial rub ABDOMEN: No organomegaly appreciated. Bowel sounds are normally heard bilaterally with no rales or rhonchi. : Deferred. RECTAL: Deferred. LYMPHATIC: No lymphadenopathy noted in the neck. EXTREMITIES: 1+ edema with no cyanosis. Some features of cellulitis of both lower extremities MUSCULOSKELETAL: No acute joint deformities or swelling SKIN: There are no significant rashes or ecchymosis. Diffuse erythema of the l ower extremities NEUROPSYCHIATRIC: The patient is alert and oriented x3. Appears to be in a good mood. No tremors or rigidity noted. Urinary Catheter Management: [place]: Cath Placed During This Visit: yes Reason for Continuing Indwelling Catheter: Accurate Measurement of Urinary Output in Critically Ill Patients Urinary Catheter Date of Insertion: 05/01/22 Urinary Catheter Time of Insertion: 18:30 Data 05/06/22 04:36 05/06/22 04:36 Other Labs: Laboratory Last Values WBC 10.9 10^3/uL (4.0-10.0) H 05/06/22 04:36 RBC 5.22 10^6/uL (4.1-5.3) 05/06/22 04:36 Hgb 10.2 g/dL (11.5-15.3) L 05/06/22 04:36 Hct 37.3 % (37.0-47.0) 05/06/22 04:36 MCV 71.5 fl (81-99) L 05/06/22 04:36 MCH 19.5 pg (28.0-34.0) L 05/06/22 04:36 MCHC 27.3 g/dL (30.0-36.0) L 05/06/22 04:36 RDW 20.2 % (12.1-15.1) H 05/06/22 04:36 Plt Count 292 10^3/cmm (130-400) 05/06/22 04:36 MPV 8.9 fL (7.4-10.4) 05/06/22 04:36 Neut % (Auto) 68.7 % 05/06/22 04:36 Lymph % (Auto) 16.4 % 05/06/22 04:36 [place] % (Auto) 11.2 % 05/06/22 04:36 Eos % (Auto) 2.0 % 05/06/22 04:36 Baso % (Auto) 0.9 % 05/06/22 04:36 Neut # (Auto) 7.46 10^3/uL (1.8-7.7) 05/06/22 04:36 Lymph # (Auto) 1.8 10^3/uL (0.8-4.8) 05/06/22 04:36 [place] # (Auto) 1.2 10^3/uL (0.2-0.9) H 05/06/22 04:36 Eos # (Auto) 0.2 10^3/uL (0.0-0.8) 05/06/22 04:36 Baso # (Auto) 0.1 10^3/uL (0.0-0.1) 05/06/22 04:36 Nucleated RBC % (auto) 0.2 % 05/06/22 04:36 Nucleated RBCs # 0.0 /100WBC 05/06/22 04:36 Sodium 138 mmol/L (136-145) 05/06/22 04:36 Potassium 4.2 mmol/L (3.5-5.1) 05/06/22 04:36 Chloride 102 mmol/L (98-107) 05/06/22 04:36 Carbon Dioxide 30 mmol/L (22-29) H 05/06/22 04:36 Anion Gap 10.2 (5-19) 05/06/22 04:36 BUN 17 mg/dL (8-23) 05/06/22 04:36 Creatinine 1.5 mg/dL (0.5-0.9) H 05/06/22 04:36 GFR Calculation 34.4 mL/min (90-130) L 05/06/22 04:36 Glucose 100 mg/dL (65-115) 05/06/22 04:36 POC Glucose 98 mg/dL (70-110) 05/06/22 07:14 Calculated Osmolality 288 mOsm/kg (285-295) 05/06/22 04:36 Calcium 9.6 mg/dL (8.5-10.5) 05/06/22 04:36 Phosphorus 2.9 mg/dL (2.5-4.5) 05/03/22 03:10 Magnesium Cancelled 05/06/22 04:45 Total Bilirubin 0.3 mg/dL (0.15-1.2) 05/01/22 19:51 AST 16 U/L (0-32) 05/01/22 19:51 ALT 26 U/L (0-33) 05/01/22 19:51 Alkaline Phosphatase 126 U/L (35-105) H 05/01/22 19:51 NT-Pro-B Natriuret Pep 222 pg/mL (0-125) H 05/01/22 19:51 Total Protein 5.9 g/dL (6.6-8.7) L 05/01/22 19:51 Albumin 3.3 g/dL (3.5-5.2) L 05/01/22 19:51 Globulin 2.6 g/dL (1.3-4.6) 05/01/22 19:51 Random Cortisol 0.68 ug/dL (2.47-19.5) L 05/01/22 19:51 Urine Color Yellow (Yellow) 05/01/22 18:38 Urine Appearance Clear (CLEAR) 05/01/22 18:38 Urine pH 5 (5-7) 05/01/22 18:38 Ur Specific Viper 1.015 (1.005-1.030) 05/01/22 18:38 Urine Protein Neg (Negative) 05/01/22 18:38 Urine Glucose (UA) 2+ (Normal) H 05/01/22 18:38 Urine Ketones Negative (Negative) 05/01/22 18:38 Urine Blood Neg (Negative) 05/01/22 18:38 Urine Nitrate Negative (Negative) 05/01/22 18:38 Urine Bilirubin Neg (Negative) 05/01/22 18:38 Urine Urobilinogen Neg mg/dL (Negative) 05/01/22 18:38 Ur Leukocyte Esterase Negative (Negative) 05/01/22 18:38 Digoxin 0.6 ng/mL (0.6-1.2) 05/05/22 02:59 Coronavirus 229E (PCR) Not detected (NOT DETECT) 05/04/22 20:15 SARS-CoV-2 (PCR) Not detected (NOT DETECT) 05/04/22 20:15 A&P Assessment and plan (1) Intermittent atrial fibrillation: The patient's heart rate seems to be getting under control with the higher dose of Cardizem. May continue on the current dose (2) Acute on chronic diastolic (congestive) heart failure: Patient may be carefully treated with IV diuretics. We will continue on the as needed Lasix. Her episodes of hypotension is unexplained. (3) Steroid dependence: Management as per the primary. (4) Chronic kidney disease, stage 3a: Management as per the primary. Currently the kidney function seems to be appropriate. (5) Nausea and vomiting: Etiology? Digoxin level of 0.7. Work-up as per the primary (6) Cellulitis: The patient is on antibiotics Plan Since the heart rate seems to be mostly under control, I may hold off on any medication changes at this time. Discussed the cardiac status with Dr. Kyle Lozada Medical Necessity Statement*: Deferred to the primary Coding Level of Care Code 29532 Diagnoses Intermittent atrial fibrillation I48.0 Acute on chronic diastolic (congestive) heart failure I50.33 Steroid dependence F19.20 Chronic kidney disease, stage 3a N18.31 Nausea and vomiting R11.2 Cellulitis L03.90
--- NOTE | 2022-05-06 10:09 | PC.NURSE ---
continues nausea with dry heaves at this time.. doctor here with more orders noted at this time .. Phenergan given
[2022-05-06] MEDS: LORazepam 2 mg/mL INJ 1 mL 0.5 MG IM (10:13)
--- NOTE | 2022-05-06 10:19 | PC.CHAP ---
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 mail clerk visit [] Patient/Family/Request visit [] Outpatient visit [] Follow-up visit [] Physician referral [] Code/Alert [x] Routine visit [] Staff referral [] Actively dying [x] Patient sleeping [x] Family support [] [] Out of room [] Palliative care [] [] Receiving care in room [] Pre-surgical visit [] Trauma [] Long length of stay [x] ICU visit [x] Other: spoke to spouse... moved PT from CSU to ICU last night.. BP went way down.. rested some.. now this morning PT is having stomach issues...... Relational/Emotional Strength [] Patient feels connected with others/family/visitors/staff [] Distress [] Loneliness/isolation [] Abandonment Spirituality of Patient [] Person of [place] [] Attends Caodaism of their [place] [] Believes in Prayer [] Reads Bible or Latter Day materials [] There are Spiritual issues to be addressed Profile Trimmer Interventions [x] Prayer [] Active listening [] Non-anxious presence [] Spiritual/emotional support [] Crisis/trauma care [] Spiritual counseling [] Bereavement support [] Provided bereavement packet [] Provided Bible/devotional materials [] Provided toy/stuffed animal, coloring book to patient or family member [] Provided Communion [] Anointing/[place] [] Salvation [x] Completed spiritual assessment [] Other: Impact on Illness or Injury [] Angry [] Fearful [] Anxious [] Often cries [] Exhaustion [] Unable to work [] Unable to attend moravian [] Unable to walk/stand [] Unable to read [] Unable to drive [] Unable to eat/drink [] Unable to sleep [] Unable to be with family [] Patient intubated [] Other: Summary Time spent with patient
--- NOTE | 2022-05-06 10:24 | PC.NURSE ---
continues to have severe nausea .. I feel like Im going to ativan given at this time
[2022-05-06 10:47] LABS: Digoxin 0.7 ng/mL (0.6-1.2)
--- NOTE | 2022-05-06 10:50 | PC.NURSE ---
continues to have severe nausea doctor Marlo here aware at this time.
[2022-05-06 10:57] LABS: Procalcitonin 0.06 ng/mL (0-0.5); Thyroid Stimulating Hormone 1.48 uIU/mL (0.27-4.20)
--- NOTE | 2022-05-06 11:04 | PC.NURSE ---
oxygen placed on pt while asleep as she had taken it off earlier. also refused to let staff suction or wipe mouth now resting
[2022-05-06 11:08] LABS: Alanine Aminotransferase 22 U/L (0-33); Albumin Level 3.5 g/dL (3.5-5.2); Alkaline Phosphatase 115 U/L (35-105); Aspartate Amino Transferase 12 U/L (0-32); C Reactive Protein 9.3 mg/L (0.0-4.9); Globulin 2.6 g/dL (1.3-4.6); Total Bilirubin 0.5 mg/dL (0.15-1.2); Total Protein 6.1 g/dL (6.6-8.7)
[2022-05-06 11:39] LABS: Glucose Point of Care 121 mg/dL (70-110)
[2022-05-06] MEDS: pantoprazole DR 40 mg Tablet PO ×2 (12:49→17:24)
--- NOTE | 2022-05-06 12:53 | US_ITS ---
WS: [id number] RIGHT UPPER QUADRANT ULTRASOUND HISTORY: n/v/ COMPARISON: 05/02/2022 Extremely limited evaluation of the RIGHT upper quadrant due to body habitus. Liver: 17.0 cm in length. Liver is slightly enlarged but incompletely visualized. Dense liver with ob scuration and poorly visualized portions. Mass or bile duct dilatation would be difficult to exclude. Portal Vein: Not visualized. Gallbladder: Poorly visualized gallbladder. Gallbladder appears slightly contracted with stones. No e vidence for acute pericholecystic fluid. CBD: Poorly visualized. No definitely visualized. Pancreas: Poorly visualized. Right kidney: 10.9 cm in length. Poorly visualized. Grossly no obstruction. Aorta and IVC: Not visualized. No ascites. US/US gall bladder [id number] IMPRESSION: 1. Extremely limited and suboptimal evaluation of the RIGHT upper quadrant due to body habitus. 2. Cholelithiasis without evidence for acute cholecystitis. 3. Hepatomegaly with severe hepatic steatosis.
[2022-05-06] MEDS: meropenem 1,000 MG in sodium chloride 0.9% (plus) 50 ML 100 MG IV ×2 (13:51→20:20)
[2022-05-06] MEDS: apixaban 5 mg Tablet PO ×2 (13:58→17:23)
[2022-05-06] MEDS: midodrine 5 mg TABLET PO ×2 (13:58→20:21)
[2022-05-06] MEDS: dilTIAZem ER (24HR) 300 mg Capsule PO (13:59)
[2022-05-06] MEDS: predniSONE 5 mg Tablet 7 MG PO (13:59)
[2022-05-06 14:09] LABS: ABG PCO2 56.2 mmHg (35-45); ABG PH Result 7.33 (7.35-7.45); Base Excess ABG 2.9 mmol/L (-2.0-2.0); Blood Gas Allen Test Pos; Blood Gas Operator Identificat MONRO; Blood Gas Sample Site Radial, right; Blood Gas Sample Type Arterial; HCO3 ABG 29.8 mmol/L (22-26); Oxygen Device NC; PO2 ABG 81.2 mmHg (80.0-100.0)
--- NOTE | 2022-05-06 14:32 | PC.NURSE ---
attempted to get patient to wear bipap at this time refused needed a minute
--- NOTE | 2022-05-06 15:01 | P.PN_ITS ---
Subjective Subjective: - Patient was examined multiple times throughout the morning, patient's at bedside -Early in the morning patient was examined she is alert to person, not to place, not to time, she does follow some commands but is quite groggy in the morning, she is complaining of severe nausea, and she vomited a couple of times, bilious appearing -She was in A-fib with RVR heart rates in the 140s due to her nausea -She has received multiple nausea medications, KUB shows nonobstructive bowel gas pattern, her nausea has resolved -She was examined earlier on in the morning, heart rates have settled down to A- fib heart rates in the 90s, she is alert to person, again not to place, not to time she is resting comfortably, -Patient was reexamined early in the afternoon, she is alert to person, to place, she recognizes me, she can follow commands, repeat of her blood work does not show any significant electrolyte abnormalities, she still a bit encephalopathic, possible aspiration event, I started her on meropenem -Repeat of her ABG showed hypercarbia, she has a CPAP at home, she which she refuses to wear, order respiratory therapy to place her on BiPAP -However patient wanted to try a bit later, have asked respiratory therapy staff to continue to reorient and encourage BiPAP use Vitals/I&O/Wt Last Vital Signs Temp 97.0 F L 05/06/22 04:00 Pulse 98 05/06/22 14:00 Resp 14 05/06/22 14:00 BP 106/76 05/06/22 14:00 Pulse Ox 99 05/06/22 14:00 O2 Del Method 05/06/22 10:09 O2 Flow Rate 2 05/05/22 20:00 05/06/22 05/06/22 05/06/22 06:59 14:59 22:59 Intake Total 200 / 1280 50 / 50 Output Total 850 / 2700 50 / 50 Balance -650 / -1420 0 / 0 Weight last 48 hrs Weight 153.496 kg Physical Exam Const: COMMON NORMALS: no acute distress EXAM LIMITATIONS: altered mental status OTHER: Alert to person, to place, she recognize me can follow some commands, but is quite groggy, falls back asleep Eye: COMMON NORMALS: Equal, round and reactive pupils present PUPIL: Yes Equal, round and reactive pupils present Neck/C-Spine: COMMON NORMALS: full ROM, no lymphadenopathy and no JVD Resp: COMMON NORMALS: normal respiratory effort, No retractions, No use of accessory muscles and clear to auscultation bilaterally AUSCULTATION: clear to auscultation bilaterally Cardio: COMMON NORMALS: no JVD, regular rate, regular rhythm, S1 normal heart sound present and S2 normal heart sound present RATE: regular rate RHYTHM: regular rhythm HEART SOUNDS: S1 normal heart sound present and S2 normal heart sound present GI: COMMON NORMALS: Normal to inspection, nondistended, normoactive bowel sounds present and non-tender OTHER: Morbidly obese abdomen Extremity: NARRATIVE EXTREMITY EXAM: 1+ pitting edema bilateral lower extremity Neuro: OTHER: No facial, no slurring of her words, can follow some commands such as squeezing my fingers, but falls back asleep Urinary Catheter Management: [place]: Cath Placed During This Visit: yes Reason for Continuing Indwelling Catheter: Accurate Measurement of Urinary Outpu t in Critically Ill Patients Urinary Catheter Date of Insertion: 05/01/22 Urinary Catheter Time of Insertion: 18:30 Data 05/06/22 04:36 05/06/22 04:36 A&P Assessment and plan (1) Acute encephalopathy: (2) Nausea and vomiting: Increase Protonix to twice daily. Requested COVID-19 PCR. (3) Acute on chronic diastolic (congestive) heart failure: (4) Atrial fibrillation with RVR: (5) Chronic kidney disease, stage 3a: (6) History of adrenal insufficiency: (7) Hypotension: (8) Anasarca: (9) Aspiration pneumonia: (10) Cellulitis: (11) Weakness: This has been gradually improving. Tremors appear to have resolved. Continues to be weak. Appreciate a note regarding neurologist assessment. Continue PT. Reviewed documentation. Though currently limited due to tachyc ardia. Was put in a chair. Today is stronger. Continue to withhold potential offending medications. Continue increased dose of prednisone. Pramipexole had been resumed. So far tolerating. Will monitor for any additional worsening of symptoms as this could be one of the offending medications. If continues to do well in terms of weakness and blood pressure allows, consider resuming lower dose Lyrica. Possible causes including toxicity of medications including pregabalin in setting of acute kidney injury. Abdomen occasional that may be contributing include prednisone which could lead to proximal weakness, although she cannot go without steroids due to pituitary insufficiency. Discussing with her she was recently also converted from Decadron 1 mg to prednisone 5 mg which is a somewhat lower dose. Blood pressures discussed with her are soft. Consideration could be for a degree of adrenal insufficiency with noted mild hyponatremia. Serum cortisol requested and is low. UA not consistent with UTI Chest x-ray with mild pulmonary edema without definite infiltrate Supportive care Physical and Occupational Therapy ordered (12) Edema: Qualifiers: Edema type: unspecified Qualified Code(s): R60.9 - Edema, unspecified (13) Paroxysmal atrial fibrillation with RVR: Difficult to treat atrial fibrillation with with RVR. With persistent tachycardia. Discussed with cardiology. She received additional dose of digoxin. Diltiazem dose was increased today. However, this afternoon with episode of hypotension. He did diurese well last night as well and is in negative balance. Perhaps combination of the 2 caused her to have an episode of low blood pressure. With hypotension requested a small bolus 250 mL saline. Initially requested Levophed drip. Blood pressure has improved, however. Started on midodrine. Given a dose of hydrocortisone. Due to hypotension episode, persistent tachycardia discussed with her and card iology, decision made for further monitoring in ICU. Follow-up magnesium level requested. Cardiology further discussed with her cardioversion, although she was reluctant to do it and for now declined as per prior discussion with cardiology certainly chance of success of maintaining sinus rhythm would be lower. Cardiology documentation reviewed. Continue oral Cardizem. Continue Eliquis. After episode of hypotension, also with underlying CKD requires close monitoring of renal function with medication adjustments. Repeat chemistry requested. (14) CHF (congestive heart failure): Yesterday diuresed well, in negative balance per review of I&O charting. With episode of hypotension today, however. Held Lasix for now, monitor blood pressure, resume additional diuresis depending on vitals. Has had worsening of swelling day before yesterday. Qualifiers: Heart failure type: unspecified Heart failure chronicity: acute Q ualified Code(s): I50.9 - Heart failure, unspecified (15) Cellulitis: Worsened cellulitis. Change antibiotic to vancomycin. Monitor vancomycin levels, renal function given CKD, anticipated RODRIGUE after hypotension episode. (16) Otitis externa: Otitis externa right EAM. She requested additional ibuprofen, however, discussed with her with episode of hypotension and history of chronic kidney disease already at risk of renal failure. Continue Ciprodex. Added tramadol. (17) Coarse tremors: With improvement, so far. Resolved. 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 Monitor closely with medication adjustments in setting of CKD, also with hypotension anticipated acute kidney injury. Requested repeat level. Hold losartan. For now hold diuretics, although did have dyspnea but this is likely related to tachycardia. Monitor for signs of fluid overload. Likely medication induced Hold home Bumex, reassess in a.m. Hold home metolazone Hold home losartan Trend renal function Avoid nephrotoxins (19) Hypothyroid: Continue Synthroid (20) Diabetes: On outpatient Ozempic Sliding scale insulin correction Avoid hypoglycemia (21) Atrial fibrillation: (22) Hyperkalemia: Reviewed potassium level, requested follow-up. Hyperkalemia 5.2. Stopped potassium supplement. Change diet to low potassium. Resume Lasix 40 mg IV twice daily. Plan Acute encephalopathy -Etiology unclear at this point -Possibly secondary polypharmacy -UA pending, blood cultures -Digoxin levels within normal limits -TSH levels within normal limits -No significant electrolyte abnormalities, afebrile -Possibly secondary to hypercarbia, noncompliant with BiPAP, continue BiPAP therapy, encourage use -Possible aspiration pneumonia aspiration event, added meropenem -No facial droop, no slurring of her words, no strokelike symptoms, neurochecks, aspiration precautions, and a stroke scale -Possible adrenal insufficiency? Has a history of adrenal insufficiency, low cortisol on admission, received hydrocortisone, recheck cortisol levels we will consider fludrocortisone and additional hydrocortisone Acute hypotension -Acute hypotension episode yesterday -Currently resolved -Possibly secondary to polypharmacy, diuretics, possible adrenal insufficiency -We will continue to monitor, no pressors required, continue ICU level monitoring A-fib with RVR -Cardiology on consult -Currently heart rates well controlled however when she becomes nauseous, heart rates do increase -Continue Cardizem -Continue Eliquis Intractable nausea and vomiting -Etiology unclear at this time -Repeat blood cultures, urine cultures -No significant electrolyte abnormalities -KUB no obstructive gas pattern -We will do right upper quadrant ultrasound to assess gallbladder Acute on chronic diastolic CHF exacerbation -Diuretics were on hold due to RODRIGUE -However she is developing anasarca, 1+ pitting edema, 1 dose of Bumex 1 mg today -We will consider further dosing of Bumex based on clinical progress RODRIGUE on CKD, -Creatinine 1.5, monitor Cellulitis, continue vancomycin, added meropenem Otitis externa, on Ciprodex eardrops Weakness, possibly polypharmacy, consider lowering dose of Lyrica, recently Decadron was switched to prednisone History of adrenal insufficiency, on chronic prednisone, possible chronic -Cortisol levels low on admission, 0.68, has received hydrocortisone -Recheck cortisol levels will consider further doses of hydrocortisone fludrocortisone Coarse tremors, none current, continue to monitor Head CT negative for acute findings, demonstrating stable 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 Type 2 diabetes mellitus, continue insulin sliding scale Hyperkalemia, monitor DVT prophylaxis: Apixaban CODE STATUS: Full code Attestations Medical Necessity Statement*: Patient requires hospitalization for acute encephalopathy, acute-tension, he with RVR, intractable nausea vomiting, acute on chronic diastolic CHF exacerbation, RODRIGUE, cellulitis, weakness, possible acute on chronic adrenal insufficiency Other Coding Information Focused coding review requested Diagnoses Acute encephalopathy G93.40 Nausea and vomiting R11.2 Acute on chronic diastolic (congestive) heart failure I50.33 Atrial fibrillation with RVR I48.91 Chronic kidney disease, stage 3a N18.31 History of adrenal insufficiency Z86.39 Hypotension I95.9 Anasarca R60.1 Aspiration pneumonia J69.0 Cellulitis L03.90 Weakness R53.1 Edema R60.9 Edema type: unspecified Paroxysmal atrial fibrillation with RVR I48.0 CHF (congestive heart failure) I50.9 Heart failure type: unspecified Heart failure chronicity: acute Cellulitis L03.90 Otitis externa H60.90 Coarse tremors G25.2 RODRIGUE (acute kidney injury) N17.9 Hypothyroid E03.9 Diabetes E11.9 Atrial fibrillation I48.91 Hyperkalemia E87.5
[2022-05-06 15:34] LABS: Cortisol Random 2.35 ug/dL (2.47-19.5)
--- NOTE | 2022-05-06 15:36 | PC.NURSE ---
now resting at this time placed on bipap
[2022-05-06] MEDS: bumetanide 0.25 mg/mL SDV 10 mL 1 MG IVP (16:30)
[2022-05-06 16:32] LABS: Blood Urine 3+ (Negative); Glucose Urine UA 1+ (Normal); Ketones Urine 1+ (Negative); Nitrate Urine Negative (Negative); Protein Urine 1+ (Negative); Specific Gravity, Urine 1.025 (1.005-1.030); Urine Appearance Hazy (CLEAR); Urine Color Yellow (Yellow); pH Urine 5 (5-7)
[2022-05-06 16:33] LABS: Add Urine Microscopic? YES; Bilirubin Urine Neg (Negative); Leukocyte Esterase Urine 2+ (Negative); RBC Urine 25-40 /hpf (0-2); Urobilinogen Urine 1 mg/dL (Negative)
[2022-05-06 16:34] LABS: Bacteria Urine 1+ /hpf; WBC Urine 40-55 /hpf (0-5)
[2022-05-06 16:36] LABS: Add Urine Culture? Yes
[2022-05-06 17:22] LABS: Glucose Point of Care 124 mg/dL (70-110)
[2022-05-06] MEDS: ciprofloxacin-dexameth Otic Susp 7.5 mL Btl 4 DROP EAR-RIGHT (17:24)
[2022-05-06] MEDS: hydrocortisone 100 mg/2 mL SDV IVP (18:46)
[2022-05-06] MEDS: fludrocortisone 0.1 mg Tablet PO (18:46)
[2022-05-06] MEDS: pramipexole 0.25 mg Tablet 1 MG PO (20:21)
[2022-05-06 21:35] LABS: Glucose Point of Care 154 mg/dL (70-110)
[2022-05-07] VITALS (18 sets, daily range): BP systolic 92–125; BP diastolic 58–98; PULSE 85–126; RESP 15–27; TEMP 36.4–37.2; O2SAT 90–97
[2022-05-07 01:45] LABS: NT Pro B Type Natriuretic Pept 4353 pg/mL (0-125)
[2022-05-07 04:09] LABS: Basophils # 0.1 10^3/uL (0.0-0.1); Basophils % 0.7 %; Eosinophils % 0.3 %; Hematocrit 41.1 % (37.0-47.0); Hemoglobin 11.1 g/dL (11.5-15.3); Lymphocytes # 0.7 10^3/uL (0.8-4.8); Lymphocytes % 6.1 %; Mean Corpuscular Hemoglobin 19.3 pg (28.0-34.0); Mean Corpuscular Volume 71.4 fl (81-99); Mean Platelet Volume 9.3 fL (7.4-10.4); Monocytes # 0.7 10^3/uL (0.2-0.9); Monocytes % 5.8 %; Neutrophils # 10.11 10^3/uL (1.8-7.7); Neutrophils % 86.6 %; Nucleated Red Blood Cells % 0.2 %; Platelet Count 352 10^3/cmm (130-400); Red Blood Count 5.76 10^6/uL (4.1-5.3); White Blood Count 11.7 10^3/uL (4.0-10.0)
[2022-05-07 04:38] LABS: NT Pro B Type Natriuretic Pept 2792 pg/mL (0-125); Procalcitonin 0.05 ng/mL (0-0.5)
[2022-05-07 04:49] LABS: Alanine Aminotransferase 25 U/L (0-33); Albumin Level 3.6 g/dL (3.5-5.2); Alkaline Phosphatase 124 U/L (35-105); Anion Gap 15.2 (5-19); Aspartate Amino Transferase 13 U/L (0-32); Blood Urea Nitrogen 15 mg/dL (8-23); C Reactive Protein 10.4 mg/L (0.0-4.9); Calcium 9.1 mg/dL (8.5-10.5); Carbon Dioxide 28 mmol/L (22-29); Chloride 97 mmol/L (98-107); Globulin 2.6 g/dL (1.3-4.6); Glomerular Filtration Rate 40.6 mL/min (90-130); Glucose 140 mg/dL (65-115); Osmolality Calculated 285 mOsm/kg (285-295); Phosphorus 4.2 mg/dL (2.5-4.5); Potassium 4.2 mmol/L (3.5-5.1); Sodium 136 mmol/L (136-145); Total Bilirubin 0.4 mg/dL (0.15-1.2); Total Protein 6.2 g/dL (6.6-8.7)
[2022-05-07] MEDS: meropenem 1,000 MG in sodium chloride 0.9% (plus) 50 ML 100 MG IV ×3 (04:57→20:31)
[2022-05-07] MEDS: levothyroxine 175 mcg Tablet PO (05:55)
[2022-05-07] MEDS: magnesium lactate 84 mg Tablet PO (05:55)
--- NOTE | 2022-05-07 07:26 | P.PN_ITS ---
Subjective Subjective: Carolyn is 71 years old and has a tremendously long problem list. She is in and out of the hospital frequently. In fact in the last few months she has been in the hospital 120 days. She is admitted frequently with complications of her longstanding medical issues. Those include chronic intermittent atrial fibrillation. She had an ablation just 3 months ago and is now back in atrial fibrillation. She has chronic diastolic heart failure, super morbid obesity, hypopituitarism with episodes of adrenal crisis, chronic kidney disease with acute kidney insufficiency, chronic anasarca, hypertension, sleep apnea, diabetes, peripheral disease, nonsustained ventricular tachycardia, chronic steroid use, pulmonary hypertension, chronic anticoagulation and a history of amiodarone toxicity. The amiodarone caused blurriness of her vision which ultimately required her to have laser surgery which did not work. She was admitted 6 days ago this time with weakness and tremor. She said she could not get off the floor. She was seen by neurology who felt the tremor was functional. She continues to complain of weakness and inability to get up. She got hypotensive 2 days ago and was transferred to the ICU. Amiodarone has been stopped because of the side effects. She was originally on that drug. She was also noted to be back in atrial fibrillation when she came in. Currently she is being treated with diltiazem for rate control and Eliquis for anticoagulation. Vitals/I&O/Wt Last Vital Signs Temp 98.0 F 05/07/22 04:00 Pulse 90 05/07/22 05:45 Resp 21 H 05/07/22 04:00 BP 108/87 05/07/22 04:00 Pulse Ox 96 05/07/22 04:00 O2 Del Method 05/07/22 04:00 O2 Flow Rate 4 05/07/22 04:00 FiO2 35 05/07/22 00:00 05/06/22 05/07/22 05/07/22 22:59 06:59 14:59 Intake Total 1040 / 1090 590 / 1680 Output Total 1949 / 1999 Balance 1040 / 1040 -1360 / -320 Weight last 48 hrs Weight 337 lb 4.916 oz Weight 338 lb 6.4 oz Physical Exam Narrative: GENERAL: She is laying flat in bed in the ICU. Awake alert and conversant. Super morbidly obese. HEENT: Exam within normal limits. NECK: Supple without jugular vein distention. The carotid upstroke is normal without bruits. BACK: Exam normal. LUNGS: Clear. HEART: Irregularly irregular rhythm ABDOMEN: Benign without organomegaly or tenderness. EXTREMITIES: No edema. NEUROLOGIC: Exam normal. SKIN: Unremarkable. Urinary Catheter Management: [place]: Cath Placed During This Visit: yes Reason for Continuing Indwelling Catheter: Accurate Measurement of Urinary Output in Critically Ill Patients Urinary Catheter Date of Insertion: 05/01/22 Urinary Catheter Time of Insertion: 18:30 Data 05/07/22 03:49 05/07/22 03:49 Micro: Microbiology 05/06/22 15:22 Blood Culture - Preliminary Blood SPECIMEN COLLECTED 05/06/22 10:20 Blood Culture - Preliminary Blood SPECIMEN COLLECTED A&P Assessment and plan (1) Aspiration pneumonia: (2) Hypotension: (3) History of adrenal insufficiency: (4) Atrial fibrillation with RVR: (5) Nausea and vomiting: (6) Acute on chronic diastolic (congestive) heart failure: (7) Coarse tremors: (8) Adrenal insufficiency: (9) Obesity: (10) Hypothyroid: (11) Diabetes: (12) CHF (congestive heart failure): Qualifiers: Heart failure type: unspecified Heart failure chronicity: acute Qualified Code(s): I50.9 - Heart failure, unspecified (13) Acute worsening of stage 3 chronic kidney disease: (14) Chronic kidney disease, stage 3a: (15) Tachycardia: Plan Rate will be difficult to control. Currently have not changed medications. No more amiodarone. The only permanent solution to this is an attempt at another ablation though that success will be limited as well given she is back in atrial fibrillation already after an ablation 2 months ago. She should remain anticoagulated and treated with drugs to control the rate. She needs to be out of bed. Attestations Medical Necessity Statement*: Continued hospitalization for management of many medical problems. and High Time for a total of 46 minutes, includes reviewing past or interval history, examining/interviewing patient, placing orders, counseling patient/family/other support, updating patient/family/other support, discussing plan of care with st [facility], communicating with other healthcare providers, documenting encounter and coordinating care Diagnoses Aspiration pneumonia J69.0 Hypotension I95.9 History of adrenal insufficiency Z86.39 Atrial fibrillation with RVR I48.91 Nausea and vomiting R11.2 Acute on chronic diastolic (congestive) heart failure I50.33 Coarse tremors G25.2 Adrenal insufficiency E27.40 Obesity E66.9 Hypothyroid E03.9 Diabetes E11.9 CHF (congestive heart failure) I50.9 Heart failure type: unspecified Heart failure chronicity: acute Acute worsening of stage 3 chronic kidney disease N18.30 Chronic kidney disease, stage 3a N18.31 Tachycardia R00.0
[2022-05-07 07:37] LABS: Glucose Point of Care 97 mg/dL (70-110)
[2022-05-07] MEDS: pantoprazole DR 40 mg Tablet PO ×2 (08:29→17:03)
[2022-05-07] MEDS: predniSONE 5 mg Tablet 7 MG PO (08:29)
[2022-05-07] MEDS: apixaban 5 mg Tablet PO ×2 (08:30→17:03)
[2022-05-07] MEDS: ciprofloxacin-dexameth Otic Susp 7.5 mL Btl 4 DROP EAR-RIGHT ×2 (08:30→17:04)
[2022-05-07] MEDS: dilTIAZem ER (24HR) 300 mg Capsule PO (08:30)
[2022-05-07] MEDS: midodrine 5 mg TABLET PO ×3 (08:30→20:32)
[2022-05-07] MEDS: bumetanide 0.25 mg/mL SDV 10 mL 1 MG IVP (10:27)
[2022-05-07 11:09] LABS: Glucose Point of Care 155 mg/dL (70-110)
--- NOTE | 2022-05-07 11:18 | PC.SOCIAL ---
IMM update IMM updated at bedside with patient. Copy of page 2 provided. Patient verbalized understanding. Copy in chart initialed, dated and timed.
[2022-05-07] MEDS: insulin lispro 100 unit/1 mL SUBCUT ×2 (11:54→17:03)
--- NOTE | 2022-05-07 12:37 | P.PN_ITS ---
Subjective Subjective: Patient was seen this morning, she sitting up in a chair, at bedside she is much more alert awake compared to yesterday, no nausea, no vomiting she alert oriented x3, follows all commands, she feels better, but tells me that her legs are swollen, denies any chest pain, no shortness of dewey th she is on 3 L, she is worried about the fluid coming back, she is worried about her A-fib Vitals/I&O/Wt Last Vital Signs Temp 98.0 F 05/07/22 04:00 Pulse 112 H 05/07/22 08:22 Resp 18 05/07/22 08:22 BP 110/67 05/07/22 08:00 Pulse Ox 93 05/07/22 08:22 O2 Del Method 05/07/22 08:22 O2 Flow Rate 3 05/07/22 08:22 FiO2 35 05/07/22 00:00 05/06/22 05/07/22 05/07/22 22:59 06:59 14:59 Intake Total 1040 / 1090 590 / 1680 Output Total 1950 / 1999 Balance 1040 / 1040 -1360 / -320 Weight last 48 hrs Weight 153 kg Weight 153.496 kg Physical Exam Const: COMMON NORMALS: no acute distress and patient oriented x3 Resp: COMMON NORMALS: normal respiratory effort, No retractions, No use of accessory muscles and clear to auscultation bilaterally AUSCULTATION: clear to auscultation bilaterally Cardio: COMMON NORMALS: S1 normal heart sound present and S2 normal heart sound present RATE: tachycardic RHYTHM: abnormal rhythm irregularly ir regular HEART SOUNDS: S1 normal heart sound present and S2 normal heart sound present GI: COMMON NORMALS: Normal to inspection, nondistended, normoactive bowel sounds present and non-tender Extremity: NARRATIVE EXTREMITY EXAM: 2+ pitting edema bilateral extremity Neuro: COMMON NORMALS: patient oriented x3 Psych: COMMON NORMALS: mental status grossly normal Urinary Catheter Management: Zurita: Cath Placed During This Visit: yes Reason for Continuing Indwelling Catheter: Accurate Measurement of Urinary Output in Critically Ill Patients Urinary Catheter Date of Insertion: 05/01/22 Urinary Catheter Time of Insertion: 18:30 Data 05/07/22 03:49 05/07/22 03:49 Micro: Microbiology 05/06/22 15:22 Blood Culture - Preliminary Blood SPECIMEN COLLECTED 05/06/22 10:20 Blood Culture - Preliminary Blood SPECIMEN COLLECTED A&P Assessment and plan (1) Adrenal crisis syndrome: (2) Hypopituitarism: (3) Acute encephalopathy: (4) Nausea and vomiting: Increase Protonix to twice daily. Requested COVID-19 PCR. (5) Acute on chronic diastolic (congestive) heart failure: (6) Atrial fibrillation with RVR: (7) Chronic kidney disease, stage 3a: (8) History of adrenal insufficiency: (9) Hypotension: (10) Anasarca: (11) Aspiration pneumonia: (12) Cellulitis: (13) Weakness: T (14) Edema: Qualifiers: Edema type: unspecified Qualified Code(s): R60.9 - Edema, unspecified (15) Paroxysmal atrial fibrillation with RVR: (16) CHF (congestive heart failure): Qualifiers: Heart failure type: unspecified Heart failure chronicity: acute Qualified Code(s): I50.9 - Heart failure, unspecified (17) Cellulitis: e. (18) Otitis externa: Otitis externa right EAM. She requested additional ibuprofen, however, discussed with her with episode of hypotension and history of chronic kidney disease already at risk of renal failure. Continue Ciprodex. Added tramadol. (19) Coarse tremors: With improvement, so far. Resolved. 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 Supportive care (20) RODRIGUE (acute kidney injury): (21) Hypothyroid: Continue Synthroid (22) Diabetes: On outpatient Ozempic Sliding scale insulin correction Avoid hypoglycemia (23) Atrial fibrillation: (24) Hyperkalemia: (25) Acute hypercapnic respiratory failure: Plan Adrenal crisis -History of hypopituitarism, for pituitary adenoma resection -In the past patient has been on hydrocortisone, it was changed to Decadron, and now she is on prednisone -Patient having hypotensive episodes, nausea, acute metabolic encephalopathy A- fib with RVR -Likely secondary to adrenal crisis -Has received IV hydrocortisone 100 mg with fludrocortisone 0.1 mg yesterday with improvement in mental status, blood pressures -We will give another 50 mg of hydrocortisone with 0.1 mg fludrocortisone this morning -Switch to hydrocortisone 20 mg every morning, 5 mg in the afternoon, with 0.1 mg of fludrocortisone daily -Follow serum cortisol levels -Monitor blood pressure Acute encephalopathy -Likely secondary to adrenal crisis, currently alert oriented x3, following all commands -Possibly secondary polypharmacy -UA unremarkable, blood cultures -Digoxin levels within normal limits -TSH levels within normal limits -No significant electrolyte abnormalities, afebrile -Possibly secondary to hypercarbia, noncompliant with BiPAP, continue BiPAP therapy, encourage use -Possible aspiration pneumonia aspiration event, added meropenem -No facial droop, no slurring of her words, no strokelike symptoms, neurochecks, aspiration precautions, and a stroke scale -Possible adrenal insufficiency? Has a history of adrenal insufficiency, low cortisol on admission, received hydrocortisone, recheck cortisol levels we will consider fludrocortisone and additional hydrocortisone Acute hypoxic hypercarbic respiratory failure secondary to diastolic CHF exacerbation -Continue BiPAP -Continue diuresis Acute hypotension -Acute hypotension episode yesterday -Currently resolved -Likely secondary to adrenal crisis -We will continue to monitor, no pressors required, continue ICU level monitoring A-fib with RVR -Cardiology on consult -Currently heart rates well controlled however when she becomes nauseous, heart rates do increase -Continue Cardizem -Continue Eliquis Intractable nausea and vomiting -Etiology likely secondary to renal crisis -Repeat blood cultures, urine cultures -No significant electrolyte abnormalities -KUB no obstructive gas pattern -Gallbladder no radiographic evidence of acute cholecystitis, cholelithiasis Acute on chronic diastolic CHF exacerbation -Has fluid overload, pitting edema -Continue Bumex 1 mg every 12 hours -However she is developing anasarca, 1+ pitting edema, -We will consider further dosing of Bumex based on clinical progress RODRIGUE on CKD, -Creatinine 1.3, monitor Cellulitis, continue vancomycin, continue meropenem Otitis externa, on Ciprodex eardrops Weakness, possibly polypharmacy, consider lowering dose of Lyrica, recently Decadron was switched to prednisone History of adrenal insufficiency, on chronic prednisone, possible chronic -Cortisol levels low on admission, 0.68, has received hydrocortisone -Recheck cortisol levels will consider further doses of hydrocortisone fludrocortisone Coarse tremors, none current, continue to monitor Head CT negative for acute findings, demonstrating stable 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 Type 2 diabetes mellitus, continue insulin sliding scale Hyperkalemia, monitor DVT prophylaxis: Apixaban CODE STATUS: Full code Plan for today continue adrenal dosing for adrenal crisis, Lasix dosing, BiPAP therapy Attestations Medical Necessity Statement*: Patient requires hospitalization for adrenal crisis, acute encephalopathy acute respiratory failure, diastolic CHF exacerbation Coding Level of Care Code 42217 Diagnoses Adrenal crisis syndrome E27.2 Hypopituitarism E23.0 Acute encephalopathy G93.40 Nausea and vomiting R11.2 Acute on chronic diastolic (congestive) heart failure I50.33 Atrial fibrillation with RVR I48.91 Chronic kidney disease, stage 3a N18.31 History of adrenal insufficiency Z86.39 Hypotension I95.9 Anasarca R60.1 Aspiration pneumonia J69.0 Cellulitis L03.90 Weakness R53.1 Edema R60.9 Edema type: unspecified Paroxysmal atrial fibrillation with RVR I48.0 CHF (congestive heart failure) I50.9 Heart failure type: unspecified Heart failure chronicity: acute Cellulitis L03.90 Otitis externa H60.90 Coarse tremors G25.2 RODRIGUE (acute kidney injury) N17.9 Hypothyroid E03.9 Diabetes E11.9 Atrial fibrillation I48.91 Hyperkalemia E87.5 Acute hypercapnic respiratory failure J96.02
[2022-05-07] MEDS: fludrocortisone 0.1 mg Tablet PO (12:59)
[2022-05-07] MEDS: hydrocortisone 100 mg/2 mL SDV 50 MG IVP (13:00)
[2022-05-07 13:37] LABS: Cortisol Random 1.83 ug/dL (2.47-19.5)
[2022-05-07 13:39] LABS: Vancomycin Trough 15.9 ug/mL (10-15)
[2022-05-07] MEDS: pregabalin 150 mg Capsule PO (17:03)
[2022-05-07 17:12] LABS: Glucose Point of Care 187 mg/dL (70-110)
[2022-05-07 20:27] LABS: Glucose Point of Care 194 mg/dL (70-110)
[2022-05-07] MEDS: bumetanide 0.25 mg/mL SDV 4 mL 1 MG IVP (20:31)
[2022-05-07] MEDS: pramipexole 0.25 mg Tablet 1 MG PO (20:32)
[2022-05-07] MEDS: polyethylene glycol 3350 Pkt 17 gm PO (20:32)
[2022-05-07] MEDS: artificial tears Op Soln 15 mL Btl 1 DROP EYE-BOTH (21:14)
[2022-05-08] VITALS (25 sets, daily range): BP systolic 100–132; BP diastolic 67–99; PULSE 74–151; RESP 15–31; TEMP 36.4–36.8; O2SAT 85–97
[2022-05-08 03:51] LABS: Basophils # 0.1 10^3/uL (0.0-0.1); Basophils % 0.9 %; Eosinophils # 0.3 10^3/uL (0.0-0.8); Eosinophils % 2.2 %; Hematocrit 37.4 % (37.0-47.0); Hemoglobin 9.9 g/dL (11.5-15.3); Lymphocytes % 16.3 %; Mean Corpuscular HGB Conc 26.5 g/dL (30.0-36.0); Mean Corpuscular Hemoglobin 18.7 pg (28.0-34.0); Mean Corpuscular Volume 70.7 fl (81-99); Mean Platelet Volume 9.4 fL (7.4-10.4); Monocytes # 1.2 10^3/uL (0.2-0.9); Neutrophils % 69.9 %; Nucleated Red Blood Cells % 0.2 %; Platelet Count 352 10^3/cmm (130-400); Red Blood Count 5.29 10^6/uL (4.1-5.3); Red Cell Distribution Width 19.7 % (12.1-15.1); White Blood Count 12.5 10^3/uL (4.0-10.0)
[2022-05-08 04:21] LABS: Cortisol Random 1.32 ug/dL (2.47-19.5)
[2022-05-08 04:22] LABS: NT Pro B Type Natriuretic Pept 2228 pg/mL (0-125); Procalcitonin 0.04 ng/mL (0-0.5)
[2022-05-08 04:33] LABS: Alanine Aminotransferase 20 U/L (0-33); Albumin Level 3.6 g/dL (3.5-5.2); Alkaline Phosphatase 114 U/L (35-105); Aspartate Amino Transferase 13 U/L (0-32); Blood Urea Nitrogen 17 mg/dL (8-23); Calcium 8.7 mg/dL (8.5-10.5); Carbon Dioxide 28 mmol/L (22-29); Chloride 97 mmol/L (98-107); Globulin 1.8 g/dL (1.3-4.6); Glomerular Filtration Rate 44.5 mL/min (90-130); Glucose 113 mg/dL (65-115); Osmolality Calculated 290 mOsm/kg (285-295); Phosphorus 4.1 mg/dL (2.5-4.5); Sodium 139 mmol/L (136-145); Total Bilirubin 0.3 mg/dL (0.15-1.2); Total Protein 5.4 g/dL (6.6-8.7)
[2022-05-08 04:40] LABS: Anion Gap 17.8 (5-19); Potassium 3.8 mmol/L (3.5-5.1)
[2022-05-08] MEDS: hydrocortisone 10 mg Tablet 20 MG PO (05:20)
[2022-05-08] MEDS: magnesium lactate 84 mg Tablet PO (05:20)
[2022-05-08] MEDS: meropenem 1,000 MG in sodium chloride 0.9% (plus) 50 ML 100 MG IV (05:20)
[2022-05-08] MEDS: levothyroxine 175 mcg Tablet PO (05:21)
--- NOTE | 2022-05-08 07:35 | P.PN_ITS ---
Subjective Subjective: Luis Daniel had an uneventful night. She was up in a chair all day yesterday. Heart rates are below 100. Vitals/I&O/Wt Last Vital Signs Temp 97.6 F 05/08/22 04:00 Pulse 86 05/08/22 06:00 Resp 26 H 05/08/22 06:00 BP 116/68 05/08/22 06:00 Pulse Ox 97 05/08/22 06:00 O2 Del Method 05/08/22 04:00 O2 Flow Rate 3 05/08/22 04:00 FiO2 21 05/08/22 00:00 05/07/22 05/08/22 05/08/22 22:59 06:59 14:59 Intake Total 1012 / 1062 590 / 1652 Output Total 1025 / 1025 850 / 1875 Balance -13 / 37 -260 / -223 Weight last 48 hrs Weight 339 lb 11.717 oz Weight 337 lb 4.916 oz Physical Exam Narrative: GENERAL: In general she is comfortable at rest. HEENT: Exam within normal limits. NECK: Supple without jugular vein distention. The carotid upstroke is normal wi thout bruits. BACK: Exam normal. LUNGS: Clear. HEART: Irregular rate and rhythm ABDOMEN: Benign without organomegaly or tenderness. EXTREMITIES: No edema. NEUROLOGIC: Exam normal. SKIN: Unremarkable. Urinary Catheter Management: Zurita: Cath Placed During This Visit: yes Reason for Continuing Indwelling Catheter: Accurate Measurement of Urinary Output in Critically Ill Patients Urinary Catheter Date of Insertion: 05/01/22 Urinary Catheter Time of Insertion: 18:30 Data 05/08/22 02:55 05/08/22 02:55 Micro: Microbiology 05/06/22 15:22 Blood Culture - Preliminary Blood NEGATIVE TO DATE 05/06/22 10:20 Blood Culture - Preliminary Blood NEGATIVE TO DATE A&P Assessment and plan (1) Acute hypercapnic respiratory failure: (2) Hypopituitarism: (3) History of adrenal insufficiency: (4) Atrial fibrillation with RVR: (5) Hyperkalemia: (6) Intermittent atrial fibrillation: (7) Acute on chronic diastolic (congestive) heart failure: (8) RODRIGUE (acute kidney injury): (9) Obesity: (10) Diabetes: (11) Anasarca: (12) Steroid dependence: Plan No change. Rate control for atrial fibrillation. Needs more activity. Attestations Medical Necessity Statement*: Hospitalization for management of hypopituitaris m, atrial fibrillation. and Moderate Time for a total of 20 minutes, includes reviewing past or interval history, examining/interviewing patient and counseling patient/family/other support Other Coding Information Prolonged care (total time indicated above or notated here) Diagnoses Acute hypercapnic respiratory failure J96.02 Hypopituitarism E23.0 History of adrenal insufficiency Z86.39 Atrial fibrillation with RVR I48.91 Hyperkalemia E87.5 Intermittent atrial fibrillation I48.0 Acute on chronic diastolic (congestive) heart failure I50.33 RODRIGUE (acute kidney injury) N17.9 Obesity E66.9 Diabetes E11.9 Anasarca R60.1 Steroid dependence F19.20
[2022-05-08 07:44] LABS: Glucose Point of Care 105 mg/dL (70-110)
[2022-05-08 08:11] LABS: Ferritin 29 ng/mL (15-150); Iron 16 ug/dL (37-145); Percent Saturation 5.1 % (20-50); Total Iron Binding Capacity 312 mcg/dl; Unsaturated Iron Binding 296 ug/dL (112-347)
[2022-05-08] MEDS: pantoprazole DR 40 mg Tablet PO ×2 (08:48→17:57)
[2022-05-08] MEDS: midodrine 5 mg TABLET PO ×3 (08:48→20:56)
[2022-05-08] MEDS: metOLazone 5 MG Tablet PO (08:48)
[2022-05-08] MEDS: apixaban 5 mg Tablet PO ×2 (08:48→17:57)
[2022-05-08] MEDS: pregabalin 150 mg Capsule PO ×2 (08:48→17:57)
[2022-05-08] MEDS: dilTIAZem ER (24HR) 300 mg Capsule PO (08:49)
[2022-05-08] MEDS: ciprofloxacin-dexameth Otic Susp 7.5 mL Btl 4 DROP EAR-RIGHT ×2 (08:49→17:57)
[2022-05-08] MEDS: fludrocortisone 0.1 mg Tablet PO (08:49)
[2022-05-08] MEDS: bumetanide 0.25 mg/mL SDV 4 mL 1 MG IVP ×2 (09:04→15:47)
[2022-05-08] MEDS: doxycycline 100 mg Tablet PO ×2 (09:05→17:56)
--- NOTE | 2022-05-08 11:19 | PC.NURSE ---
report called and transfered to 2nd floor room 271 at this time
[2022-05-08 11:25] LABS: Glucose Point of Care 160 mg/dL (70-110)
[2022-05-08] MEDS: hydrocortisone 10 mg Tablet 5 MG PO (11:41)
[2022-05-08] MEDS: insulin lispro 100 unit/1 mL SUBCUT (11:41)
--- NOTE | 2022-05-08 11:45 | P.PN_ITS ---
Subjective Subjective: Patient was seen this morning, she is in bed, she feels a lot better, continues to have edema of her legs, but she feels that the Bumex is working, still feeling short of breath, still feeling weak, she is not sure exactly why she was put on prednisone, from Decadron, wondering if she needs to be put back on Decadron at some point, denies any chest pain, no palpitations, no shortness of breath, she is wondering how long she has to spend here in the hospital Vitals/I&O/Wt Last Vital Signs Temp 97.9 F 05/08/22 11:26 Pulse 103 H 05/08/22 11:26 Resp 18 05/08/22 09:20 BP 128/89 05/08/22 11:26 Pulse Ox 94 05/08/22 11:26 O2 Del Method 05/08/22 09:20 O2 Flow Rate 3 05/08/22 04:00 FiO2 21 05/08/22 10:00 05/07/22 05/08/22 05/08/22 22:59 06:59 14:59 Intake Total 1012 / 1062 590 / 1652 150 / 150 Output Total 1025 / 1025 850 / 1875 Balance -13 / 37 -260 / -223 150 / 150 Weight last 48 hrs Weight 154.1 kg Weight 153 kg Physical Exam Const: COMMON NORMALS: no acute distress and patient oriented x3 Resp: COMMON NORMALS: normal respiratory effort, No retractions, No use of accessory muscles and clear to auscultation bilaterally AUSCULTATION: clear to auscultation bilaterally Cardio: COMMON NORMALS: regular rate, regular rhythm, S1 normal heart sound present and S2 normal heart sound present RATE: regular rate RHYTHM: regu lar rhythm HEART SOUNDS: S1 normal heart sound present and S2 normal heart sound present GI: COMMON NORMALS: Normal to inspection, nondistended, normoactive bowel sounds present and non-tender Extremity: NARRATIVE EXTREMITY EXAM: 2+ pitting edema bilateral lower extremity Neuro: COMMON NORMALS: patient oriented x3 Psych: COMMON NORMALS: mental status grossly normal Urinary Catheter Management: Zurita: Cath Placed During This Visit: yes Reason for Continuing Indwelling Catheter: Accurate Measurement of Urinary Output in Critically Ill Patients Urinary Catheter Date of Insertion: 05/01/22 Urinary Catheter Time of Insertion: 18:30 Data 05/08/22 02:55 05/08/22 02:55 Micro: Microbiology 05/06/22 15:15 Urine Culture - Preliminary Urine,Clean Catch Gram Negative Rods 05/06/22 15:22 Blood Culture - Preliminary Blood NEGATIVE TO DATE 05/06/22 10:20 Blood Culture - Preliminary Blood NEGATIVE TO DATE A&P Assessment and plan (1) Adrenal crisis syndrome: (2) Hypopituitarism: (3) Acute encephalopathy: (4) Nausea and vomiting: Increase Protonix to twice daily. Requested COVID-19 PCR. (5) Acute on chronic diastolic (congestive) heart failure: (6) Atrial fibrillation with RVR: (7) Chronic kidney disease, stage 3a: (8) History of adrenal insufficiency: (9) Hypotension: (10) Anasarca: (11) Aspiration pneumonia: (12) Cellulitis: (13) Weakness: T (14) Edema: Qualifiers: Edema type: unspecified Qualified Code(s): R60.9 - Edema, unspecified (15) Paroxysmal atrial fibrillation with RVR: (16) CHF (congestive heart failure): Qualifiers: Heart failure chronicity: acute Heart failure type: unspecified Qualified Code(s): I50.9 - Heart failure, unspecified (17) Cellulitis: e. (18) Otitis externa: Otitis externa right EAM. She requested additional ibuprofen, however, discussed with her with episode of hypotension and history of chronic kidney disease already at risk of renal failure. Continue Ciprodex. Added tramadol. (19) Coarse tremors: With improvement, so far. Resolved. 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 Supportive care (20) RODRIGUE (acute kidney injury): (21) Hypothyroid: Continue Synthroid (22) Diabetes: On outpatient Ozempic Sliding scale insulin correction Avoid hypoglycemia (23) Atrial fibrillation: (24) Hyperkalemia: (25) Acute hypercapnic respiratory failure: (26) Iron deficiency anemia: (27) GI bleed: Plan Concerns for slow GI bleed and evidence of iron deficiency anemia -Concerns for slow GI bleed -Ferritin 29, iron 16, percent saturation 5.1 -Indicating low iron stores -Is on Eliquis -Hemoccult stool pending -Protonix 40 twice daily, Carafate 1 g twice daily -Monitor for bloody or black stools -We will give her 1 dose of IV Venofer here -Monitor hemodynamics, monitor for bloody black stools Adrenal crisis -Resolving -History of hypopituitarism, for pituitary adenoma resection -In the past patient has been on hydrocortisone, it was changed to Decadron, and now she is on prednisone -Patient having hypotensive episodes, nausea, acute metabolic encephalopathy A- fib with RVR -Likely secondary to adrenal crisis -Has received IV hydrocortisone 100 mg with fludrocortisone 0.1 mg yesterday with improvement in mental status, blood pressures -03/06/2023 status post 50 mg of hydrocortisone with 0.1 mg fludrocortisone this morning -Switch to hydrocortisone 20 mg every morning, 5 mg in the afternoon, with 0.1 mg of fludrocortisone daily -Follow serum cortisol levels -Monitor blood pressure Acute encephalopathy -Resolved -Likely secondary to adrenal crisis, currently alert oriented x3, following all commands -Possibly secondary polypharmacy -UA unremarkable, blood cultures -Digoxin levels within normal limits -TSH levels within normal limits -No significant electrolyte abnormalities, afebrile -Possibly secondary to hypercarbia, noncompliant with BiPAP, continue BiPAP therapy, encourage use -Possible aspiration pneumonia aspiration event, added meropenem -No facial droop, no slurring of her words, no strokelike symptoms, neurochecks, aspiration precautions, and a stroke scale -Possible adrenal insufficiency? Has a history of adrenal insufficiency, low cortisol on admission, received hydrocortisone, recheck cortisol levels we will consider fludrocortisone and additional hydrocortisone Acute hypoxic hypercarbic respiratory failure secondary to diastolic CHF exacerbation -Resolving -Continue BiPAP -Continue diuresis Acute hypotension -Resolved -Acute hypotension on May 05 -Currently resolved -Likely secondary to adrenal crisis -We will continue to monitor, no pressors required, continue ICU level monitoring A-fib with RVR -Resolving -Cardiology on consult -Currently heart rates well controlled however when she becomes nauseous, heart rates do increase -Continue Cardizem -Continue Eliquis Intractable nausea and vomiting -Resolved -Etiology likely secondary to renal crisis -Repeat blood cultures, urine cultures -No significant electrolyte abnormalities -KUB no obstructive gas pattern -Gallbladder no radiographic evidence of acute cholecystitis, cholelithiasis Acute on chronic diastolic CHF exacerbation -Has fluid overload, pitting edema, shortness of breath complaints -Increase Bumex to 1 mg every 8 hours, 1 dose metolazone improving creatinine -However she is developing anasarca, 1+ pitting edema, -We will consider further dosing of Bumex based on clinical progress RODRIGUE on CKD, -Creatinine 1.2, monitor Cellulitis, continue vancomycin, continue meropenem Otitis externa, on Ciprodex eardrops Weakness, possibly polypharmacy, consider lowering dose of Lyrica, recently Decadron was switched to prednisone History of adrenal insufficiency, on chronic prednisone, possible chronic -Cortisol levels low on admission, 0.68, has received hydrocortisone -Recheck cortisol levels will consider further doses of hydrocortisone fludrocortisone Coarse tremors, none current, continue to monitor Head CT negative for acute findings, demonstrating stable 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 Type 2 diabetes mellitus, continue insulin sliding scale Hyperkalemia, monitor DVT prophylaxis: Apixaban CODE STATUS: Full code Plan for today iron deficiency anemia, further iron studies, Hemoccult stools, monitor hemoglobin, monitor stools, 1 dose IV Venofer, diuresis, Bumex therapy, metolazone therapy, for adrenal crisis steroid therapy, atrial fibrillation monitor heart rates Attestations 2 Medical Necessity Statement*: Patient requires hospitalization for fluid overload diastolic CHF exacerbation requiring diuresis, iron deficiency anemia, creatinine vena fear, adrenal crisis requiring steroid therapy atrial fibrillation monitoring heart rate Diagnoses Adrenal crisis syndrome E27.2 Hypopituitarism E23.0 Acute encephalopathy G93.40 Nausea and vomiting R11.2 Acute on chronic diastolic (congestive) heart failure I50.33 Atrial fibrillation with RVR I48.91 Chronic kidney disease, stage 3a N18.31 History of adrenal insufficiency Z86.39 Hypotension I95.9 Anasarca R60.1 Aspiration pneumonia J69.0 Cellulitis L03.90 Weakness R53.1 Edema R60.9 Edema type: unspecified Paroxysmal atrial fibrillation with RVR I48.0 CHF (congestive heart failure) I50.9 Heart failure chronicity: acute Heart failure type: unspecified Cellulitis L03.90 Otitis externa H60.90 Coarse tremors G25.2 RODRIGUE (acute kidney injury) N17.9 Hypothyroid E03.9 Diabetes E11.9 Atrial fibrillation I48.91 Hyperkalemia E87.5 Acute hypercapnic respiratory failure J96.02 Iron deficiency anemia D50.9 GI bleed K92.2
--- NOTE | 2022-05-08 12:44 | PC.OT ---
Received physician order request for OT evaluation. Patient is already on OT caseload, another evaluation not indicated at this time. Patient provided with ADL kit.
[2022-05-08] MEDS: iron sucrose 200 MG in sodium chloride 0.9% (100 ml) 100 ML 220 MG IV (14:15)
[2022-05-08 17:14] LABS: Glucose Point of Care 134 mg/dL (70-110)
[2022-05-08] MEDS: sucralfate 1 gm Tablet PO ×2 (18:02→20:56)
[2022-05-08 18:52] LABS: Basophils # 0.2 10^3/uL (0.0-0.1); Eosinophils # 0.4 10^3/uL (0.0-0.8); Eosinophils % 2.6 %; Hematocrit 42.1 % (37.0-47.0); Hemoglobin 11.4 g/dL (11.5-15.3); Lymphocytes % 13.4 %; Mean Corpuscular HGB Conc 27.1 g/dL (30.0-36.0); Mean Corpuscular Hemoglobin 19.4 pg (28.0-34.0); Mean Corpuscular Volume 71.7 fl (81-99); Mean Platelet Volume 9.4 fL (7.4-10.4); Monocytes # 1.3 10^3/uL (0.2-0.9); Monocytes % 8.7 %; Neutrophils # 10.85 10^3/uL (1.8-7.7); Neutrophils % 73.6 %; Nucleated Red Blood Cells % 0.2 %; Platelet Count 417 10^3/cmm (130-400); Red Blood Count 5.87 10^6/uL (4.1-5.3); Red Cell Distribution Width 20.1 % (12.1-15.1); White Blood Count 14.7 10^3/uL (4.0-10.0)
[2022-05-08 20:47] LABS: Glucose Point of Care 217 mg/dL (70-110)
[2022-05-08] MEDS: polyethylene glycol 3350 Pkt 17 gm PO (20:54)
[2022-05-08] MEDS: pramipexole 0.25 mg Tablet 1 MG PO (20:56)
[2022-05-09] VITALS (22 sets, daily range): BP systolic 111–129; BP diastolic 71–81; PULSE 71–130; RESP 14–25; TEMP 36.7–36.9; O2SAT 86–96; BMI 56.5
[2022-05-09] MEDS: bumetanide 0.25 mg/mL SDV 4 mL 1 MG IVP ×3 (00:02→16:03)
--- NOTE | 2022-05-09 04:26 | ECG_ITS ---
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 Measurements Intervals [place] Rate: 122 P: 0 TN: 0 QRS: -27 QRSD: 101 T: 104 QT: 346 QTc: 494 Interpretive Statements ATRIAL FIBRILLATION WITH RAPID VENTRICULAR RESPONSE LOW QRS VOLTAGE IN PRECORDIAL LEADS [QRS DEFLECTION < 1.0 mV IN CHEST LEADS] POSSIBLE ANTERIOR MYOCARDIAL INFARCTION , PROBABLY OLD [30 ms Q WAVE IN V3/V4, OR R < 0.2 mV IN V4] Compared to ECG 05/03/2022 04:58:43 Atrial flutter no longer present Left anterior fascicular block no longer present Myocardial infarct finding still present Electronically Signed On 05-09-2022 8:50:17 HERPETOLOGY TEACHER by Bahman Rowland M.D. [id number]
[2022-05-09] MEDS: dilTIAZem 5 mg/mL SDV 5 mL 10 MG IVP (04:56)
[2022-05-09] MEDS: dilTIAZem ER (24HR) 300 mg Capsule PO ×2 (04:56→08:22)
[2022-05-09 04:58] LABS: Basophils # 0.2 10^3/uL (0.0-0.1); Eosinophils # 0.5 10^3/uL (0.0-0.8); Eosinophils % 3.2 %; Hematocrit 39.2 % (37.0-47.0); Hemoglobin 10.5 g/dL (11.5-15.3); Lymphocytes # 2.9 10^3/uL (0.8-4.8); Lymphocytes % 19.8 %; Mean Corpuscular HGB Conc 26.8 g/dL (30.0-36.0); Mean Corpuscular Hemoglobin 19.1 pg (28.0-34.0); Mean Corpuscular Volume 71.1 fl (81-99); Mean Platelet Volume 9.4 fL (7.4-10.4); Monocytes # 1.6 10^3/uL (0.2-0.9); Monocytes % 11.1 %; Neutrophils # 9.27 10^3/uL (1.8-7.7); Neutrophils % 64.1 %; Nucleated Red Blood Cells # 0.1 /100WBC; Nucleated Red Blood Cells % 0.3 %; Platelet Count 376 10^3/cmm (130-400); Red Blood Count 5.51 10^6/uL (4.1-5.3); Red Cell Distribution Width 19.8 % (12.1-15.1); White Blood Count 14.5 10^3/uL (4.0-10.0)
[2022-05-09 05:25] LABS: Anion Gap 15.7 (5-19); Blood Urea Nitrogen 22 mg/dL (8-23); Calcium 8.8 mg/dL (8.5-10.5); Carbon Dioxide 30 mmol/L (22-29); Chloride 94 mmol/L (98-107); Glomerular Filtration Rate 37.3 mL/min (90-130); Glucose 97 mg/dL (65-115); NT Pro B Type Natriuretic Pept 1187 pg/mL (0-125); Osmolality Calculated 287 mOsm/kg (285-295); Sodium 137 mmol/L (136-145)
[2022-05-09 05:26] LABS: Cortisol Random 0.69 ug/dL (2.47-19.5)
[2022-05-09 05:47] LABS: Potassium 2.7 mmol/L (3.5-5.1)
[2022-05-09] MEDS: potassium chloride ER 20 mEq Tablet 80 MEQ PO (06:02)
[2022-05-09] MEDS: levothyroxine 175 mcg Tablet PO (06:03)
[2022-05-09] MEDS: hydrocortisone 10 mg Tablet 20 MG PO (06:03)
[2022-05-09] MEDS: magnesium lactate 84 mg Tablet PO (06:03)
[2022-05-09 06:37] LABS: Glucose Point of Care 123 mg/dL (70-110)
--- NOTE | 2022-05-09 07:11 | PC.NURSE ---
Beside report done with Margaux Olivarez, left before signing
[2022-05-09] MEDS: fludrocortisone 0.1 mg Tablet PO (08:22)
[2022-05-09] MEDS: pantoprazole DR 40 mg Tablet PO ×2 (08:22→17:13)
[2022-05-09] MEDS: doxycycline 100 mg Tablet PO ×2 (08:22→17:13)
[2022-05-09] MEDS: apixaban 5 mg Tablet PO ×2 (08:22→17:13)
[2022-05-09] MEDS: midodrine 5 mg TABLET PO ×3 (08:22→21:08)
[2022-05-09] MEDS: pregabalin 150 mg Capsule PO ×2 (08:22→17:13)
[2022-05-09] MEDS: ciprofloxacin-dexameth Otic Susp 7.5 mL Btl 4 DROP EAR-RIGHT ×2 (08:24→17:13)
[2022-05-09] MEDS: ipratropium-albuterol 3 mL Neb INHALATION (08:56)
--- NOTE | 2022-05-09 09:01 | P.PN_ITS ---
Subjective Subjective: Patient again went into atrial fibrillation with rapid ventricular rate yesterday. Today she seems to be back into sinus rhythm. She was getting IV Bumex for the heart failure. She seems to be doing okay at this time. Her potassium was found to be 2.7 this morning Medications: Medication Review Details: Current Medications Albuterol/Ipratropium (Ipratropium-Albuterol 3 Ml Neb) 3 ml INHALATION Q6H.RESP PRN PRN Reason: SHORTNESS OF BREATH Last Admin: 05/09/22 08:56 Dose: 3 ml Alprazolam (Alprazolam 0.5 Mg Tablet) 0.5 mg PO TID PRN PRN Reason: ANXIETY Last Admin: 05/05/22 21:19 Dose: 0.5 mg Apixaban (Apixaban 5 Mg Tablet) 5 mg PO BID [facility] Last Admin: 05/09/22 08:22 Dose: 5 mg Artificial Tears (Artificial Tears Op Soln 15 Ml Btl) 1 drop EYE-BOTH Q4H PRN PRN Reason: DRY EYE(S) Last Admin: 05/07/22 21:14 Dose: 1 drop Bumetanide (Bumetanide 0.25 Mg/Ml Sdv 4 Ml) 1 mg IVP Q8H [facility] Last Admin: 05/09/22 08:23 Dose: 1 mg Capsaicin (Capsaicin 0.025% Cream 60 Gm) 1 applic TOPICAL QID PRN PRN Reason: PAIN Ciprofloxacin/Dexamethasone (Ciprofloxacin-Dexameth Otic Susp 7.5 Ml Btl) 4 jose luis p EAR-RIGHT BID [facility], [facility]; Protocol Last Admin: 05/09/22 08:24 Dose: 4 drop Dextrose (Dextrose 50% Syringe 50 Ml) 25 ml IVP ONCE PRN; Protocol PRN Reason: hypoglycemia protocol Dextrose (Dextrose 50% Syringe 50 Ml) 50 ml IVP PRN PRN; Protocol PRN Reason: hypoglycemia protocol Diltiazem HCl (Diltiazem Er (24hr) 300 Mg Capsule) 300 mg PO DAILY [facility] Last Admin: 05/09/22 08:22 Dose: 300 mg Doxycycline Monohydrate (Doxycycline 100 Mg Tablet) 100 mg PO BID [facility], [facility]; Protocol Last Admin: 05/09/22 08:22 Dose: 100 mg Fludrocortisone Acetate (Fludrocortisone 0.1 Mg Tablet) 0.1 mg PO DAILY [facility] Last Admin: 05/09/22 08:22 Dose: 0.1 mg Glucagon (Glucagon 1 Mg/Ml Inj 1 Ml) 1 mg IM ONCE PRN; Protocol PRN Reason: Adult Acute Hypoglycemia Prot. Hydrocortisone (Hydrocortisone 10 Mg Tablet) 20 mg PO QAM [facility] Last Admin: 05/09/22 06:03 Dose: 20 mg Hydrocortisone (Hydrocortisone 10 Mg Tablet) 5 mg PO Q24H [facility] Last Admin: 05/08/22 11:41 Dose: 5 mg Hydroxyzine Pamoate (Hydroxyzine 25 Mg Capsule) 25 mg PO BID PRN PRN Reason: Anxiety Last Admin: 05/04/22 22:03 Dose: 25 mg Dextrose (D5w) 500 mls @ 100 mls/hr IV ONCE PRN; Protocol PRN Reason: Adult Acute Hypoglycemia Prot Insulin Human Lispro (Insulin Lispro 100 Unit/1 Ml) 0 unit SUBCUT TIDWM [facility], [facility]; Protocol Last Admin: 05/09/22 07:44 Dose: Not Given Lanolin (Lanolin Oint 7 Gm) 1 applic TOPICAL PRN PRN PRN Reason: DRYNESS Last Admin: 05/04/22 22:00 Dose: 1 applic Levothyroxine Sodium (Levothyroxine 175 Mcg Tablet) 175 mcg PO [facility] Last Admin: 05/09/22 06:03 Dose: 175 mcg Magnesium Lactate (Magnesium Lactate 84 Mg Tablet) [facility] Last Admin: 05/09/22 06:03 Dose: 84 mg Midodrine (Midodrine 5 Mg Tablet) 5 mg PO TID [facility] Last Admin: 05/09/22 08:22 Dose: 5 mg Ondansetron HCl (Ondansetron 2 Mg/Ml Sdv 2 Ml) 4 mg IVP Q6H PRN PRN Reason: NAUSEA AND VOMITING Last Admin: 05/05/22 12:59 Dose: 4 mg Ondansetron HCl (Ondansetron 2 Mg/Ml Sdv 2 Ml) 8 mg IVP Q6H PRN PRN Reason: NAUSEA AND VOMITING Last Admin: 05/06/22 09:06 Dose: 8 mg Pantoprazole Sodium (Pantoprazole Dr 40 Mg Tablet) 40 mg PO BID [facility] Last Admin: 05/09/22 08:22 Dose: 40 mg Polyethylene Glycol (Polyethylene Glycol 3350 Pkt 17 Gm) 17 gm PO DAILY PRN PRN Reason: Constipation Last Admin: 05/08/22 20:54 Dose: 17 gm Pramipexole Dihydrochloride (Pramipexole 0.25 Mg Tablet) 1 mg PO BEDTIME [facility]IRO Last Admin: 05/08/22 20:56 Dose: 1 mg Pregabalin (Pregabalin 150 Mg Capsule) 150 mg PO BID [facility] Last Admin: 05/09/22 08:22 Dose: 150 mg Promethazine HCl (Promethazine 25 Mg/Ml Sdv 1 Ml) 25 mg IM Q6H PRN PRN Reason: NAUSEA Last Admin: 05/06/22 09:58 Dose: 25 mg Sucralfate (Sucralfate 1 Gm Tablet) 1 gm PO AC&BEDTIME RAMIRO Last Admin: 05/09/22 06:08 Dose: Not Given Tramadol HCl (Tramadol 50 Mg Tablet) 50 mg PO Q6H PRN PRN Reason: MODERATE PAIN Last Admin: 05/06/22 04:36 Dose: 50 mg Vitals/I&O/Wt Last Vital Signs Temp 98.0 F 05/09/22 08:21 Pulse 93 05/09/22 08:56 Resp 18 05/09/22 08:56 BP 125/76 05/09/22 08:21 Pulse Ox 94 05/09/22 08:56 O2 Del Method 05/09/22 08:56 O2 Flow Rate 2 05/09/22 08:56 FiO2 21 05/08/22 10:00 05/08/22 05/09/22 05/09/22 22:59 06:59 14:59 Intake Total 110 / 500 Output Total 2700 / 2700 1450 / 4150 Balance -2590 / -2200 -1450 / -3650 Weight last 48 hrs Weight 339 lb 11.717 oz Weight 339 lb 11.717 oz Physical Exam Narrative: GENERAL: The patient is alert and oriented times three. Not in any acute distress. Morbidly obese HEENT: No significant pallor, icterus or lymphadenopathy.Oral cavity: There are no mucous membrane lesions. NECK: Trachea appears to be central. No masses noted. No JVD or thyromegaly appreciated. RESPIRATORY: Chest is symmetrical. No intercostals muscle retraction or any ac cessory muscle activation. There is no chest wall tenderness. Breath sounds are heard bilaterally. Occasional expiratory wheeze and no evidence of any consolidation. BREASTS: Deferred. HEART: The heart sounds are normal. No S3 or S4. No significant murmurs. No pericardial rub ABDOMEN: No vessel pulsations or distention. No tenderness. No organomegaly appreciated. Bowel sounds are normally heard. : Deferred. RECTAL: Deferred. LYMPHATIC: No lymphadenopathy noted in the neck. EXTREMITIES: Trace edema with redness in both lower extremities MUSCULOSKELETAL: No acute joint deformities or swelling SKIN: There are no significant rashes or ecchymosis NEUROPSYCHIATRIC: The patient is alert and oriented x3. Appears to be in a good mood. No tremors or rigidity noted. Urinary Catheter Management: Zurita: Cath Placed During This Visit: yes Reason for Continuing Indwelling Catheter: Accurate Measurement of Urinary Output in Critically Ill Patients Urinary Catheter Date of Insertion: 05/01/22 Urinary Catheter Time of Insertion: 18:30 Data 05/09/22 04:18 05/09/22 04:18 Other Labs: Laboratory Last Values WBC 14.5 10^3/uL (4.0-10.0) H 05/09/22 04:18 RBC 5.51 10^6/uL (4.1-5.3) H 05/09/22 04:18 Hgb 10.5 g/dL (11.5-15.3) L 05/09/22 04:18 Hct 39.2 % (37.0-47.0) 05/09/22 04:18 MCV 71.1 fl (81-99) L 05/09/22 04:18 MCH 19.1 pg (28.0-34.0) L 05/09/22 04:18 MCHC 26.8 g/dL (30.0-36.0) L 05/09/22 04:18 RDW 19.8 % (12.1-15.1) H 05/09/22 04:18 Plt Count 376 10^3/cmm (130-400) 05/09/22 04:18 MPV 9.4 fL (7.4-10.4) 05/09/22 04:18 Neut % (Auto) 64.1 % 05/09/22 04:18 Lymph % (Auto) 19.8 % 05/09/22 04:18 [place] % (Auto) 11.1 % 05/09/22 04:18 Eos % (Auto) 3.2 % 05/09/22 04:18 Baso % (Auto) 1.0 % 05/09/22 04:18 Neut # (Auto) 9.27 10^3/uL (1.8-7.7) H 05/09/22 04:18 Lymph # (Auto) 2.9 10^3/uL (0.8-4.8) 05/09/22 04:18 [place] # (Auto) 1.6 10^3/uL (0.2-0.9) H 05/09/22 04:18 Eos # (Auto) 0.5 10^3/uL (0.0-0.8) 05/09/22 04:18 Baso # (Auto) 0.2 10^3/uL (0.0-0.1) H 05/09/22 04:18 Nucleated RBC % (auto) 0.3 % 05/09/22 04:18 Nucleated RBCs # 0.1 /100WBC 05/09/22 04:18 Specimen Type Arterial 05/06/22 13:56 Sample Site Radial, right 05/06/22 13:56 ABG pH 7.33 (7.35-7.45) L 05/06/22 13:56 ABG pCO2 56.2 mmHg (35-45) H 05/06/22 13:56 ABG pO2 81.2 mmHg (80.0-100.0) 05/06/22 13:56 ABG HCO3 29.8 mmol/L (22-26) H 05/06/22 13:56 ABG Base Excess 2.9 mmol/L (-2.0-2.0) H 05/06/22 13:56 Surya Test Pos 05/06/22 13:56 Hematocrit 34.0 % (37-47) L 05/06/22 13:56 O2 Delivery Device Nc 05/06/22 13:56 O2 Liters/Min 4.0 % 05/06/22 13:56 FiO2 36.0 % 05/06/22 13:56 Nurse [employer] ID [place] 05/06/22 13:56 Sodium 137 mmol/L (136-145) 05/09/22 04:18 Potassium 2.7 mmol/L (3.5-5.1) L* 05/09/22 04:18 Chloride 94 mmol/L (98-107) L 05/09/22 04:18 Carbon Dioxide 30 mmol/L (22-29) H 05/09/22 04:18 Anion Gap 15.7 (5-19) 05/09/22 04:18 BUN 22 mg/dL (8-23) 05/09/22 04:18 Creatinine 1.4 mg/dL (0.5-0.9) H 05/09/22 04:18 GFR Calculation 37.3 mL/min (90-130) L 05/09/22 04:18 Glucose 97 mg/dL (65-115) 05/09/22 04:18 POC Glucose 123 mg/dL (70-110) H 05/09/22 06:30 Calculated Osmolality 287 mOsm/kg (285-295) 05/09/22 04:18 Lactate 1.0 mmol/L (0.5-2.2) 05/06/22 10:20 Calcium 8.8 mg/dL (8.5-10.5) 05/09/22 04:18 Phosphorus 4.1 mg/dL (2.5-4.5) 05/08/22 02:55 Magnesium 2.0 mg/dL (1.7-2.3) 05/08/22 02:55 Iron 16 ug/dL (37-145) L 05/08/22 02:55 TIBC 312 mcg/dl 05/08/22 02:55 % Saturation 5.1 % (20-50) L 05/08/22 02:55 Unsat Iron Binding 296 ug/dL (112-347) 05/08/22 02:55 Ferritin 29 ng/mL (15-150) 05/08/22 02:55 Total Bilirubin 0.3 mg/dL (0.15-1.2) 05/08/22 02:55 Direct Bilirubin 0.20 mg/dL (0.00-0.30) 05/06/22 10:20 AST 13 U/L (0-32) 05/08/22 02:55 ALT 20 U/L (0-33) 05/08/22 02:55 Alkaline Phosphatase 114 U/L (35-105) H 05/08/22 02:55 C-Reactive Protein 6.0 mg/L (0.0-4.9) H 05/08/22 02:55 NT-Pro-B Natriuret Pep 1187 pg/mL (0-125) H 05/09/22 04:18 Total Protein 5.4 g/dL (6.6-8.7) L 05/08/22 02:55 Albumin 3.6 g/dL (3.5-5.2) 05/08/22 02:55 Globulin 1.8 g/dL (1.3-4.6) 05/08/22 02:55 Procalcitonin 0.04 ng/mL (0-0.5) 05/08/22 02:55 TSH 1.48 uIU/mL (0.27-4.20) 05/06/22 10:20 Random Cortisol 0.69 ug/dL (2.47-19.5) L 05/09/22 04:18 Urine Color Yellow (Yellow) 05/06/22 15:15 Urine Appearance Hazy (CLEAR) A 05/06/22 15:15 Urine pH 5 (5-7) 05/06/22 15:15 Ur Specific [place] 1.025 (1.005-1.030) 05/06/22 15:15 Urine Protein 1+ (Negative) H 05/06/22 15:15 Urine Glucose (UA) 1+ (Normal) H 05/06/22 15:15 Urine Ketones 1+ (Negative) H 05/06/22 15:15 Urine Blood 3+ (Negative) H 05/06/22 15:15 Urine Nitrate Negative (Negative) 05/06/22 15:15 Urine Bilirubin Neg (Negative) 05/06/22 15:15 Urine Urobilinogen 1 mg/dL (Negative) H 05/06/22 15:15 Ur Leukocyte Esterase 2+ (Negative) H 05/06/22 15:15 Urine RBC 25-40 /hpf (0-2) H 05/06/22 15:15 Urine WBC 40-55 /hpf (0-5) H 05/06/22 15:15 Ur Squamous Epith Cells None /hpf (0-5) 05/06/22 15:15 Amorphous Sediment Not Reportable 05/06/22 15:15 Urine Bacteria 1+ /hpf (NONE) H 05/06/22 15:15 Vancomycin Trough 15.9 ug/mL (10-15) H 05/07/22 12:58 Digoxin 0.7 ng/mL (0.6-1.2) 05/06/22 10:20 Coronavirus 229E (PCR) Not detected (NOT DETECT) 05/04/22 20:15 SARS-CoV-2 (PCR) Not detected (NOT DETECT) 05/04/22 20:15 Micro: Microbiology 05/06/22 15:15 Urine Culture - Preliminary Urine,Clean Catch Gram Negative Rods A&P Assessment and plan (1) Hyperkalemia: Needs to be on potassium supplement. (2) Intermittent atrial fibrillation: The patient's heart rate seems to be getting under control with the higher dose of Cardizem. May continue on the current dose (3) Acute on chronic diastolic (congestive) heart failure: May switch the IV Bumex to p.o.-2 mg every 8 hrs (4) Steroid dependence: Management as per the primary. (5) Chronic kidney disease, stage 3a: Management as per the primary. Currently the kidney function seems to be appropriate. (6) Nausea and vomiting: Currently resolved (7) Cellulitis: The patient is on antibiotics Plan I will be contacting Dr. Reyna at the [facility] in [place] to consider catheter-based options. Her medication options are very limited at this point. In view of her multiple morbidities, AV andrew ablation followed by permanent pacer implantation may need to be considered. I will be discussing this with Dr. Reyna. We also will make arrangements for her to be seen by Dr. Reyna after discharge from the hospital. Attestations Medical Necessity Statement*: Patient requires treatment of hypokalemia. Coding Level of Care Code Acute Code for [facility] Diagnoses Hyperkalemia E87.5 Intermittent atrial fibrillation I48.0 Acute on chronic diastolic (congestive) heart failure I50.33 Steroid dependence F19.20 Chronic kidney disease, stage 3a N18.31 Nausea and vomiting R11.2 Cellulitis L03.90
[2022-05-09] MEDS: sucralfate 1 gm Tablet PO ×3 (10:13→21:08)
[2022-05-09] MEDS: potassium chloride oral liq 20 mEq/15 mL UDC 40 MEQ PO (10:13)
--- NOTE | 2022-05-09 10:21 | PC.NURSE ---
Patients potassium level low on AM labs, package delivery room service runner replaced with 80meg PO potassium, Dr. Sellers called at around 1015 today and ordered another 40meq elixer potassium now and BMP for 1200. Orders placed
[2022-05-09] MEDS: hydrocortisone 10 mg Tablet 5 MG PO (11:01)
[2022-05-09 11:13] LABS: Glucose Point of Care 181 mg/dL (70-110)
[2022-05-09] MEDS: insulin lispro 100 unit/1 mL SUBCUT ×2 (11:46→17:13)
--- NOTE | 2022-05-09 13:19 | PC.SOCIAL ---
IMM Updated Updated pt & her on IMM. No questions voiced. Provided pt a copy. Initialed, dated, & timed copy in chart.
[2022-05-09 13:47] LABS: Anion Gap 17.1 (5-19); Blood Urea Nitrogen 22 mg/dL (8-23); Calcium 9.3 mg/dL (8.5-10.5); Carbon Dioxide 28 mmol/L (22-29); Chloride 91 mmol/L (98-107); Glomerular Filtration Rate 34.4 mL/min (90-130); Glucose 137 mg/dL (65-115); Osmolality Calculated 279 mOsm/kg (285-295); Potassium 4.1 mmol/L (3.5-5.1); Sodium 132 mmol/L (136-145)
[2022-05-09 16:12] LABS: Glucose Point of Care 175 mg/dL (70-110)
--- NOTE | 2022-05-09 17:55 | PC.NURSE ---
Patient complaint with cares, received complete bed bath with OT today, patient been in NSR all day.
--- NOTE | 2022-05-09 19:51 | PM.PN ---
Subjective Subjective: She is having persistent edema of lower extremities. Overnight heart rate went high and she had chest pain during the episode. This morning she is doing better. Currently no chest pain. She is feeling weak. Right ear and pain of right side of the face have improved/resolved. Medications: Medication Review Details: Current Medications Albuterol/Ipratropium (Ipratropium-Albuterol 3 Ml Neb) 3 ml INHALATION Q6H.RESP PRN PRN Reason: SHORTNESS OF BREATH Last Admin: 05/09/22 08:56 Dose: 3 ml Alprazolam (Alprazolam 0.5 Mg Tablet) 0.5 mg PO TID PRN PRN Reason: ANXIETY Last Admin: 05/05/22 21:19 Dose: 0.5 mg Apixaban (Apixaban 5 Mg Tablet) 5 mg PO BID RAMIRO Last Admin: 05/09/22 08:22 Dose: 5 mg Artificial Tears (Artificial Tears Op Soln 15 Ml Btl) 1 drop EYE-BOTH Q4H PRN PRN Reason: DRY EYE(S) Last Admin: 05/07/22 21:14 Dose: 1 drop Bumetanide (Bumetanide 0.25 Mg/Ml Sdv 4 Ml) 1 mg IVP Q8H RAMIRO Last Admin: 05/09/22 08:23 Dose: 1 mg Capsaicin (Capsaicin 0.025% Cream 60 Gm) 1 applic TOPICAL QID PRN PRN Reason: PAIN Ciprofloxacin/Dexamethasone (Ciprofloxacin-Dexameth Otic Susp 7.5 Ml Btl) 4 drop EAR-RIGHT BID RAMIRO; Protocol Last Admin: 05/09/22 08:24 Dose: 4 drop Dextrose (Dextrose 50% Syringe 50 Ml) 25 ml IVP ONCE PRN; Protocol PRN Reason: hypoglycemia protocol Dextrose (Dextrose 50% Syringe 50 Ml) 50 ml IVP PRN PRN; Protocol PRN Reason: hypoglycemia protocol Diltiazem HCl (Diltiazem Er (24hr) 300 Mg Capsule) 300 mg PO DAILY [facility] Last Admin: 05/09/22 08:22 Dose: 300 mg Doxycycline Monohydrate (Doxycycline 100 Mg Tablet) 100 mg PO BID [facility]; Protocol Last Admin: 05/09/22 08:22 Dose: 100 mg Fludrocortisone Acetate (Fludrocortisone 0.1 Mg Tablet) 0.1 mg PO DAILY [facility] Last Admin: 05/09/22 08:22 Dose: 0.1 mg Glucagon (Glucagon 1 Mg/Ml Inj 1 Ml) 1 mg IM ONCE PRN; Protocol PRN Reason: Adult Acute Hypoglycemia Prot. Hydrocortisone (Hydrocortisone 10 Mg Tablet) 20 mg PO QAM [facility] Last Admin: 05/09/22 06:03 Dose: 20 mg Hydrocortisone (Hydrocortisone 10 Mg Tablet) 5 mg PO Q24H [facility] Last Admin: 05/08/22 11:41 Dose: 5 mg Hydroxyzine Pamoate (Hydroxyzine 25 Mg Capsule) 25 mg PO BID PRN PRN Reason: Anxiety Last Admin: 05/04/22 22:03 Dose: 25 mg Dextrose (D5w) 500 mls @ 100 mls/hr IV ONCE PRN; Protocol PRN Reason: Adult Acute Hypoglycemia Prot Insulin Human Lispro (Insulin Lispro 100 Unit/1 Ml) 0 unit SUBCUT TIDWM [facility]; Protocol Last Admin: 05/09/22 07:44 Dose: Not Given Lanolin (Lanolin Oint 7 Gm) 1 applic TOPICAL PRN PRN PRN Reason: DRYNESS Last Admin: 05/04/22 22:00 Dose: 1 applic Levothyroxine Sodium (Levothyroxine 175 Mcg Tablet) 175 mcg PO [facility] Last Admin: 05/09/22 06:03 Dose: 175 mcg Magnesium Lactate (Magnesium Lactate 84 Mg Tablet) 84 mg PO [facility] Last Admin: 05/09/22 06:03 Dose: 84 mg Midodrine (Midodrine 5 Mg Tablet) 5 mg PO TID [facility] Last Admin: 05/09/22 08:22 Dose: 5 mg Ondansetron HCl (Ondansetron 2 Mg/Ml Sdv 2 Ml) 4 mg IVP Q6H PRN PRN Reason: NAUSEA AND VOMITING Last Admin: 05/05/22 12:59 Dose: 4 mg Ondansetron HCl (Ondansetron 2 Mg/Ml Sdv 2 Ml) 8 mg IVP Q6H PRN PRN Reason: NAUSEA AND VOMITING Last Admin: 05/06/22 09:06 Dose: 8 mg Pantoprazole Sodium (Pantoprazole Dr 40 Mg Tablet) 40 mg PO BID [facility] Last Admin: 05/09/22 08:22 Dose: 40 mg Polyethylene Glycol (Polyethylene Glycol 3350 Pkt 17 Gm) 17 gm PO DAILY PRN PRN Reason: Constipation Last Admin: 05/08/22 20:54 Dose: 17 gm Pramipexole Dihydrochloride (Pramipexole 0.25 Mg Tablet) 1 mg PO BEDTIME RAMIRO Last Admin: 05/08/22 20:56 Dose: 1 mg Pregabalin (Pregabalin 150 Mg Capsule) 150 mg PO BID [facility] Last Admin: 05/09/22 08:22 Dose: 150 mg Promethazine HCl (Promethazine 25 Mg/Ml Sdv 1 Ml) 25 mg IM Q6H PRN PRN Reason: NAUSEA Last Admin: 05/06/22 09:58 Dose: 25 mg Sucralfate (Sucralfate 1 Gm Tablet) 1 gm PO AC&BEDTIME RAMIRO Last Admin: 05/09/22 06:08 Dose: Not Given Tramadol HCl (Tramadol 50 Mg Tablet) 50 mg PO Q6H PRN PRN Reason: MODERATE PAIN Last Admin: 05/06/22 04:36 Dose: 50 mg Vitals/I&O/Wt Last Vital Signs Temp 98.4 F 05/09/22 19:29 Pulse 89 05/09/22 19:29 Resp 18 05/09/22 19:29 BP 119/77 05/09/22 19:29 Pulse Ox 96 05/09/22 19:29 O2 Del Method 05/09/22 19:29 O2 Flow Rate 2 05/09/22 08:56 FiO2 21 05/08/22 10:00 05/09/22 05/09/22 05/09/22 06:59 14:59 22:59 Intake Total 360 / 360 240 / 600 Output Total 1450 / 4150 1250 / 1250 Balance -1450 / -3650 360 / 360 -1010 / -650 Weight last 48 hrs Weight 154.1 kg Weight 154.1 kg Physical Exam Narrative: by her side. Const: COMMON NORMALS: patient oriented x3 and alert GENERAL APPEARANCE: cooperative NUTRITIONAL APPEARANCE: obese morbidly obese ORIENTATION/CONSCIOUSNESS: Yes awake HENMT: COMMON NORMALS: oropharynx normal EXTERNAL AUDITORY CANAL: Abnormal EAC present EAC laterality: right Details: erythema Neck/C-Spine: COMMON NORMALS: no JVD Resp: COMMON NORMALS: normal respiratory effort and clear to auscultation bilaterally AUSCULTATION: clear to auscultation bilaterally Cardio: COMMON NORMALS: no JVD, regular rhythm, S1 normal heart sound present, S2 normal heart sound present and No murmurs present (Cardio) RATE: tachycardic RHYTHM: regular rhythm and abnormal rhythm irregularly irregular HEART SOUNDS: S1 normal heart sound present and S2 normal heart sound present GI: COMMON NORMALS: Normal to inspection, nondistended, normoactive bowel sounds present, Soft to palpation and non-tender PALPATION: Yes Soft to palpation Extremity: GENERAL: Yes edema (1+) OTHER: Proximal muscle weakness. Coarse tremors. No rigidity. Neuro: COMMON NORMALS: patient oriented x3 and moves all extremities SENSORIUM/ORIENTATION: Yes alert Skin: OTHER: Erythema of lower bilateral shins. No weeping. No open wounds. Urinary Catheter Management: Zurita: Cath Placed During This Visit: yes Reason for Continuing Indwelling Catheter: Accurate Measurement of Urinary Output in Critically Ill Patients Urinary Catheter Date of Insertion: 05/01/22 Urinary Catheter Time of Insertion: 18:30 Data 05/09/22 04:18 05/09/22 13:13 Micro: Microbiology 05/06/22 15:15 Urine Culture - Final Urine,Clean Catch Escherichia coli esbl A&P Assessment and plan (1) CHF (congestive heart failure): Still significant edema bilateral lower extremities, cellulitis. Continue Bumex IV, monitor I&O. Chemistry panel reviewed. Some worsening of sodium down to 132. Creatinine is 1.5. Bicarb 28. Reassessment chemistry requested. Treatment made more difficult due to adrenal insufficiency. Fludrocortisone. Discussed with her and her . Qualifiers: Heart failure type: unspecified Heart failure chronicity: acute Qualified Code(s): I50.9 - Heart failure, unspecified (2) Paroxysmal atrial fibrillation with RVR: Discussed with cardiology. Cardiology note appreciated. Continue Cardizem. Cardiology will additionally discussed with Dr. Reyna with consideration for additional ablation given very difficult to treat atrial fibrillation with paroxysmal RVR. (3) Adrenal crisis syndrome: Continue hydrocortisone, reduce fludrocortisone to every other day 0.1 mg. Monitor blood pressures. Monitor sodium, potassium. Bicarb. Repeat chemistry requested. Serum cortisol level reviewed. Decreasing with exogenous steroids. (4) Hypopituitarism: (5) Acute encephalopathy: (6) Nausea and vomiting: Increase Protonix to twice daily. Requested COVID-19 PCR. (7) Acute on chronic diastolic (congestive) heart failure: (8) Atrial fibrillation with RVR: (9) Chronic kidney disease, stage 3a: (10) History of adrenal insufficiency: (11) Hypotension: (12) Anasarca: (13) Aspiration pneumonia: (14) Cellulitis: Continue doxycycline. Continue treatment of edema with diuresis for CHF. (15) Weakness: She is again feeling weak. Noted today again having coarse tremor. Unclear whether secondary to deconditioning from prolonged hospitalization with CHF exacerbation and other medical conditions. Noted has been restarted on Lyrica from the as well. We will need to confirm with her when she noticed feeling weaker/tremors again. May be related to Lyrica. Prefers to return home with therapy. (16) Edema: Qualifiers: Edema type: unspecified Qualified Code(s): R60.9 - Edema, unspecified (17) Otitis externa: Improving. Continue Ciprodex. (18) Coarse tremors: Again recurrence of tremors. As above. 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 Hemoglobin level appreciated, 10.5. Repeat blood counts requested. Occult blood test does not appear to be collected so far. Continue Protonix, Carafate. Continue anticoagulation. Consideration of endoscopy after she is out of acute illness. Acute encephalopathy -Resolved Acute hypoxic hypercarbic respiratory failure secondary to diastolic CHF exacerbation: Resolved Acute hypotension -Resolved Intractable nausea and vomiting -Resolved Cellulitis, continue vancomycin, continue meropenem Type 2 diabetes mellitus, continue insulin sliding scale Attestations Medical Necessity Statement*: Continue admission for management of CHF exacerbation, in the setting of adrenal insufficiency, fludrocortisone, CKD, A-fib with RVR episodes. Diagnoses CHF (congestive heart failure) I50.9 Heart failure type: unspecified Heart failure chronicity: acute Paroxysmal atrial fibrillation with RVR I48.0 Adrenal crisis syndrome E27.2 Hypopituitarism E23.0 Acute encephalopathy G93.40 Nausea and vomiting R11.2 Acute on chronic diastolic (congestive) heart failure I50.33 Atrial fibrillation with RVR I48.91 Chronic kidney disease, stage 3a N18.31 History of adrenal insufficiency Z86.39 Hypotension I95.9 Anasarca R60.1 Aspiration pneumonia J69.0 Cellulitis L03.90 Weakness R53.1 Edema R60.9 Edema type: unspecified Otitis externa H60.90 Coarse tremors G25.2 RODRIGUE (acute kidney injury) N17.9 Hypothyroid E03.9 Diabetes E11.9 Atrial fibrillation I48.91 Hyperkalemia E87.5 Acute hypercapnic respiratory failure J96.02 Iron deficiency anemia D50.9 GI bleed K92.2
[2022-05-09 20:47] LABS: Glucose Point of Care 157 mg/dL (70-110)
[2022-05-09] MEDS: pramipexole 0.25 mg Tablet 1 MG PO (21:08)
[2022-05-09] MEDS: polyethylene glycol 3350 Pkt 17 gm PO (21:30)
[2022-05-10] VITALS (7 sets, daily range): BP systolic 101–131; BP diastolic 54–77; PULSE 70–108; RESP 15–19; TEMP 36.6–37.3; O2SAT 90–97
[2022-05-10] MEDS: bumetanide 0.25 mg/mL SDV 4 mL 1 MG IVP ×3 (00:18→18:22)
[2022-05-10] MEDS: ipratropium-albuterol 3 mL Neb INHALATION (01:19)
[2022-05-10] MEDS: ondansetron 2 mg/ML SDV 2 mL 4 MG IVP ×2 (03:39→10:20)
[2022-05-10 05:29] LABS: Basophils # 0.1 10^3/uL (0.0-0.1); Basophils % 0.8 %; Eosinophils # 0.5 10^3/uL (0.0-0.8); Eosinophils % 3.2 %; Hematocrit 36.2 % (37.0-47.0); Hemoglobin 9.9 g/dL (11.5-15.3); Lymphocytes # 2.7 10^3/uL (0.8-4.8); Lymphocytes % 16.6 %; Mean Corpuscular HGB Conc 27.3 g/dL (30.0-36.0); Mean Corpuscular Hemoglobin 19.1 pg (28.0-34.0); Mean Corpuscular Volume 69.9 fl (81-99); Mean Platelet Volume 9.7 fL (7.4-10.4); Monocytes # 1.5 10^3/uL (0.2-0.9); Monocytes % 9.5 %; Neutrophils % 67.3 %; Nucleated Red Blood Cells # 0.1 /100WBC; Nucleated Red Blood Cells % 0.4 %; Platelet Count 350 10^3/cmm (130-400); Red Blood Count 5.18 10^6/uL (4.1-5.3); Red Cell Distribution Width 19.9 % (12.1-15.1); White Blood Count 16.1 10^3/uL (4.0-10.0)
[2022-05-10 06:01] LABS: Anion Gap 17.4 (5-19); Blood Urea Nitrogen 23 mg/dL (8-23); Calcium 8.9 mg/dL (8.5-10.5); Carbon Dioxide 30 mmol/L (22-29); Chloride 89 mmol/L (98-107); Glomerular Filtration Rate 37.3 mL/min (90-130); Glucose 113 mg/dL (65-115); Osmolality Calculated 282 mOsm/kg (285-295); Sodium 134 mmol/L (136-145)
[2022-05-10] MEDS: levothyroxine 175 mcg Tablet PO (06:15)
[2022-05-10] MEDS: sucralfate 1 gm Tablet PO ×4 (06:15→20:41)
[2022-05-10] MEDS: hydrocortisone 10 mg Tablet 20 MG PO (06:15)
[2022-05-10] MEDS: magnesium lactate 84 mg Tablet PO (06:15)
[2022-05-10 06:25] LABS: Potassium 2.4 mmol/L (3.5-5.1)
[2022-05-10 06:47] LABS: Glucose Point of Care 121 mg/dL (70-110)
[2022-05-10] MEDS: potassium chloride ER 20 mEq Tablet 40 MEQ PO ×2 (06:50→10:20)
[2022-05-10] MEDS: doxycycline 100 mg Tablet PO ×2 (10:18→18:23)
[2022-05-10] MEDS: pregabalin 150 mg Capsule PO (10:18)
[2022-05-10] MEDS: midodrine 5 mg TABLET PO ×3 (10:19→20:41)
[2022-05-10] MEDS: pantoprazole DR 40 mg Tablet PO ×2 (10:19→18:23)
[2022-05-10] MEDS: dilTIAZem ER (24HR) 300 mg Capsule PO (10:20)
[2022-05-10] MEDS: apixaban 5 mg Tablet 2.5 MG PO ×2 (10:20→18:26)
[2022-05-10 11:46] LABS: Glucose Point of Care 190 mg/dL (70-110)
[2022-05-10] MEDS: hydrocortisone 10 mg Tablet 5 MG PO (12:52)
[2022-05-10] MEDS: lactulose oral liq 20 gm/30 mL UDC PO (12:52)
[2022-05-10] MEDS: insulin lispro 100 unit/1 mL SUBCUT ×2 (12:52→18:28)
--- NOTE | 2022-05-10 13:42 | PC.OT ---
OT TREATMENT ATTEMPTED IN A.M.: PATIENT VISITING WITH THE REVOLVING INVENTORY CLERK AND ASKS THAT I RETURN IN P.M. OT ASSIST HER WITH A SHOWER. OT TREATMENT ATTEMPTED IN P.M.: PATIENT SLEEPING BUT EASILY AWAKENED. REPORTS SHE IS NOT FEELING WELL AND CAN NOT KEEP HER EYES OPEN TO EVEN SPEAK WITH HER WHO IS PRESENT. REQUESTS HOLD FOR TODAY AND WILLING TO ATTEMPT TOMORROW.
--- NOTE | 2022-05-10 16:27 | P.PN_ITS ---
Subjective Subjective: She was again having nausea last night and today, and overnight had dry heaving. Swelling persistent lower extremities. Erythema in lower legs with improvement. Having some crusts coming from right ear which she has been trying to take out with her finger. Medications: Medication Review Details: Current Medications Albuterol/Ipratropium (Ipratropium-Albuterol 3 Ml Neb) 3 ml INHALATION Q6H.RESP PRN PRN Reason: SHORTNESS OF BREATH Last Admin: 05/09/22 08:56 Dose: 3 ml Alprazolam (Alprazolam 0.5 Mg Tablet) 0.5 mg PO TID PRN PRN Reason: ANXIETY Last Admin: 05/05/22 21:19 Dose: 0.5 mg Apixaban (Apixaban 5 Mg Tablet) 5 mg PO BID RAMIRO Last Admin: 05/09/22 08:22 Dose: 5 mg Artificial Tears (Artificial Tears Op Soln 15 Ml Btl) 1 drop EYE-BOTH Q4H PRN PRN Reason: DRY EYE(S) Last Admin: 05/07/22 21:14 Dose: 1 drop Bumetanide (Bumetanide 0.25 Mg/Ml Sdv 4 Ml) 1 mg IVP Q8H RAMIRO Last Admin: 05/09/22 08:23 Dose: 1 mg Capsaicin (Capsaicin 0.025% Cream 60 Gm) 1 applic TOPICAL QID PRN PRN Reason: PAIN Ciprofloxacin/Dexamethasone (Ciprofloxacin-Dexameth Otic Susp 7.5 Ml Btl) 4 drop EAR-RIGHT BID RAMIRO; Protocol Last Admin: 05/09/22 08:24 Dose: 4 drop Dextrose (Dextrose 50% Syringe 50 Ml) 25 ml IVP ONCE PRN; Protocol PRN Reason: hypoglycemia protocol Dextrose (Dextrose 50% Syringe 50 Ml) 50 ml IVP PRN PRN; Protocol PRN Reason: hypoglycemia protocol Diltiazem HCl (Diltiazem Er (24hr) 300 Mg Capsule) 300 mg PO DAILY [facility] Last Admin: 05/09/22 08:22 Dose: 300 mg Doxycycline Monohydrate (Doxycycline 100 Mg Tablet) 100 mg PO BID [facility]; Protocol Last Admin: 05/09/22 08:22 Dose: 100 mg Fludrocortisone Acetate (Fludrocortisone 0.1 Mg Tablet) 0.1 mg PO DAILY [facility] Last Admin: 05/09/22 08:22 Dose: 0.1 mg Glucagon (Glucagon 1 Mg/Ml Inj 1 Ml) 1 mg IM ONCE PRN; Protocol PRN Reason: Adult Acute Hypoglycemia Prot. Hydrocortisone (Hydrocortisone 10 Mg Tablet) 20 mg PO QAM [facility] Last Admin: 05/09/22 06:03 Dose: 20 mg Hydrocortisone (Hydrocortisone 10 Mg Tablet) 5 mg PO Q24H [facility] Last Admin: 05/08/22 11:41 Dose: 5 mg Hydroxyzine Pamoate (Hydroxyzine 25 Mg Capsule) 25 mg PO BID PRN PRN Reason: Anxiety Last Admin: 05/04/22 22:03 Dose: 25 mg Dextrose (D5w) 500 mls @ 100 mls/hr IV ONCE PRN; Protocol PRN Reason: Adult Acute Hypoglycemia Prot Insulin Human Lispro (Insulin Lispro 100 Unit/1 Ml) 0 unit SUBCUT TIDWM [facility]; Protocol Last Admin: 05/09/22 07:44 Dose: Not Given Lanolin (Lanolin Oint 7 Gm) 1 applic TOPICAL PRN PRN PRN Reason: DRYNESS Last Admin: 05/04/22 22:00 Dose: 1 applic Levothyroxine Sodium (Levothyroxine 175 Mcg Tablet) 175 mcg PO [facility] Last Admin: 05/09/22 06:03 Dose: 175 mcg Magnesium Lactate (Magnesium Lactate 84 Mg Tablet) 84 mg PO [facility] Last Admin: 05/09/22 06:03 Dose: 84 mg Midodrine (Midodrine 5 Mg Tablet) 5 mg PO TID [facility] Last Admin: 05/09/22 08:22 Dose: 5 mg Ondansetron HCl (Ondansetron 2 Mg/Ml Sdv 2 Ml) 4 mg IVP Q6H PRN PRN Reason: NAUSEA AND VOMITING Last Admin: 05/05/22 12:59 Dose: 4 mg Ondansetron HCl (Ondansetron 2 Mg/Ml Sdv 2 Ml) 8 mg IVP Q6H PRN PRN Reason: NAUSEA AND VOMITING Last Admin: 05/06/22 09:06 Dose: 8 mg Pantoprazole Sodium (Pantoprazole Dr 40 Mg Tablet) 40 mg PO BID [facility] Last Admin: 05/09/22 08:22 Dose: 40 mg Polyethylene Glycol (Polyethylene Glycol 3350 Pkt 17 Gm) 17 gm PO DAILY PRN PRN Reason: Constipation Last Admin: 05/08/22 20:54 Dose: 17 gm Pramipexole Dihydrochloride (Pramipexole 0.25 Mg Tablet) 1 mg PO BEDTIME [facility] Last Admin: 05/08/22 20:56 Dose: 1 mg Pregabalin (Pregabalin 150 Mg Capsule) 150 mg PO BID [facility] Last Admin: 05/09/22 08:22 Dose: 150 mg Promethazine HCl (Promethazine 25 Mg/Ml Sdv 1 Ml) 25 mg IM Q6H PRN PRN Reason: NAUSEA Last Admin: 05/06/22 09:58 Dose: 25 mg Sucralfate (Sucralfate 1 Gm Tablet) 1 gm PO AC&BEDTIME [facility]IR[facility] Last Admin: 05/09/22 06:08 Dose: Not Given Tramadol HCl (Tramadol 50 Mg Tablet) 50 mg PO Q6H PRN PRN Reason: MODERATE PAIN Last Admin: 05/06/22 04:36 Dose: 50 mg Vitals/I&O/Wt Last Vital Signs Temp 98.3 F 05/10/22 15:56 Pulse 74 05/10/22 15:56 Resp 18 05/10/22 15:56 BP 129/72 05/10/22 15:56 Pulse Ox 92 05/10/22 15:56 O2 Del Method 05/10/22 08:00 O2 Flow Rate 2 05/10/22 04:00 FiO2 21 05/08/22 10:00 05/10/22 05/10/22 05/10/22 06:59 14:59 22:59 Output Total 950 / 3300 800 / 800 Balance -950 / -2700 -800 / -800 Weight last 48 hrs Weight 154.675 kg Weight 154.1 kg Physical Exam Narrative: by her side. Const: COMMON NORMALS: patient oriented x3 and alert GENERAL APPEARANCE: cooperative NUTRITIONAL APPEARANCE: obese morbidly obese ORIENTATION/CONSCIOUSNESS: Yes awake HENMT: COMMON NORMALS: oropharynx normal EXTERNAL AUDITORY CANAL: Abnormal EAC present EAC laterality: right Details: erythema Neck/C-Spine: COMMON NORMALS: no JVD Resp: COMMON NORMALS: normal respiratory effort and clear to auscultation bilaterally AUSCULTATION: clear to auscultation bilaterally Cardio: COMMON NORMALS: no JVD, regular rhythm, S1 normal heart sound present, S2 normal heart sound present and No murmurs present (Cardio) RATE: tachycardic RHYTHM: regular rhythm and abnormal rhythm irregularly irregular HEART SOUNDS: S1 normal heart sound present and S2 normal heart sound present GI: COMMON NORMALS: Normal to inspection, nondistended, normoactive bowel sounds present, Soft to palpation and non-tender PALPATION: Yes Soft to palpation Extremity: GENERAL: Yes edema (2-3+) OTHER: Proximal muscle weakness. Coarse tremors. No rigidity. Neuro: COMMON NORMALS: patient oriented x3 and moves all extremities SENSORIUM/ORIENTATION: Yes alert Skin: OTHER: Improving bowel faint erythema of lower bilateral shins. No weeping. No open wounds. Urinary Catheter Management: Zurita: Cath Placed During This Visit: yes Reason for Continuing Indwelling Catheter: Acute Urinary Retention or Obstruction Urinary Catheter Date of Insertion: 05/01/22 Urinary Catheter Time of Insertion: 18:30 Data 05/10/22 05:04 05/10/22 05:04 Micro: Microbiology 05/06/22 15:15 Urine Culture - Final Urine,Clean Catch Escherichia coli esbl A&P Assessment and plan (1) CHF (congestive heart failure): She is having still quite significant edema, 2-3+. Reviewed intake and output. Is in negative balance. Cellulitis appears to be responding to diuresis. Continue IV diuretics for today. In case continues to diurese well, discussed with her consideration of switching to oral diuretic possibly tomorrow, however, we will reassess. Today severely hypokalemic, potassium down to 2.4. Replaced with 80 mEq potassium. She declined IV replacement. With possible severe complications including arrhythmia requires close monitoring with daily chemistries. Requested chemistry for tomorrow. Requires monitoring of renal function in the setting of CKD. Discussed with cardiology. Treatment made more difficult due to adrenal insufficiency. Fludrocortisone. Discussed with her and her . Qualifiers: Heart failure chronicity: acute Heart failure type: unspecified Qualified Code(s): I50.9 - Heart failure, unspecified (2) Hypokalemia: Severe hypokalemia, down to 2.4. Declined IV replacement, replaced with 80 mg p.o. We will follow-up potassium level this evening, chemistries requested for the morning as well. Check magnesium level as well. Requires close monitoring with IV diuresis. (3) Paroxysmal atrial fibrillation with RVR: Heart rates reviewed, history of heart rates were on elevated side, but today are doing better. Continue Cardizem which was adjusted by cardiology with dose increased to 300 mg. Cardiology will additionally discussed with Dr. Reyna with consideration for additional ablation given very difficult to treat atrial fibrillation with paroxysmal RVR. (4) Adrenal crisis syndrome: Continue hydrocortisone, reduced fludrocortisone to every other day 0.1 mg. Monitor blood pressures. Monitor sodium, potassium. Bicarb. Repeat chemistry requested. Serum cortisol level reviewed. Decreasing with exogenous steroids. (5) Weakness: Again feeling weaker and with recurrence of tremors. Maintaining blood pressure. Discussed with her with holding Lyrica as it seems her weakness and tremors have worsened again which may be related to it being restarted last several days. She is in agreement. She states she usually takes it for neuropathy. Stopped medication. Noted today again having coarse tremor. Unclear whether secondary to deconditioning from prolonged hospitalization with CHF exacerbation and other medical conditions. Prefers to return home with therapy. (6) Hypopituitarism: (7) Acute encephalopathy: (8) Nausea and vomiting: Again nausea, dry heaves last night. Maintaining blood pressure. Does not appear to be adrenally insufficient currently. May be similarly related to toxic medication effect. Discussed as above with worsening weakness, tremors, discontinue Lyrica. She does report also history of longstanding vertigo which contributes to her nausea, request for meclizine, requested. Increase Protonix to twice daily. Requested COVID-19 PCR. (9) Acute on chronic diastolic (congestive) heart failure: (10) Atrial fibrillation with RVR: (11) Chronic kidney disease, stage 3a: (12) History of adrenal insufficiency: (13) Hypotension: (14) Anasarca: (15) Aspiration pneumonia: (16) Cellulitis: Now showing improvement. Continue IV diuresis of severe edema. Continue doxycycline. Continue treatment of edema with diuresis for CHF. (17) Edema: Qualifiers: Edema type: unspecified Qualified Code(s): R60.9 - Edema, unspecified (18) Otitis externa: Improving. Continue Ciprodex. (19) Coarse tremors: Again recurrence of tremors. As above. 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 Hemoglobin level appreciated, 10.5. Repeat blood counts requested. Occult blood test does not appear to be collected so far. Continue Protonix, Carafate. Continue anticoagulation. Consideration of endoscopy after she is out of acute illness. Acute encephalopathy -Resolved Acute hypoxic hypercarbic respiratory failure secondary to diastolic CHF exacerbation: Resolved Acute hypotension -Resolved Intractable nausea and vomiting -Resolved Cellulitis, continue vancomycin, continue meropenem Type 2 diabetes mellitus, continue insulin sliding scale Attestations Medical Necessity Statement*: Continue admission for management of CHF exacerbation, in the setting of adrenal insufficiency, fludrocortisone, CKD, A- fib with RVR episodes. Diagnoses CHF (congestive heart failure) I50.9 Heart failure chronicity: acute Heart failure type: unspecified Hypokalemia E87.6 Paroxysmal atrial fibrillation with RVR I48.0 Adrenal crisis syndrome E27.2 Weakness R53.1 Hypopituitarism E23.0 Acute encephalopathy G93.40 Nausea and vomiting R11.2 Acute on chronic diastolic (congestive) heart failure I50.33 Atrial fibrillation with RVR I48.91 Chronic kidney disease, stage 3a N18.31 History of adrenal insufficiency Z86.39 Hypotension I95.9 Anasarca R60.1 Aspiration pneumonia J69.0 Cellulitis L03.90 Edema R60.9 Edema type: unspecified Otitis externa H60.90 Coarse tremors G25.2 RODRIGUE (acute kidney injury) N17.9 Hypothyroid E03.9 Diabetes E11.9 Atrial fibrillation I48.91 Hyperkalemia E87.5 Acute hypercapnic respiratory failure J96.02 Iron deficiency anemia D50.9 GI bleed K92.2
[2022-05-10] MEDS: meclizine 25 mg tablet PO (16:35)
[2022-05-10 17:16] LABS: Glucose Point of Care 217 mg/dL (70-110)
--- NOTE | 2022-05-10 18:34 | PM.PN ---
Subjective Subjective: Patient is still having severe hypokalemia. This is being corrected. Also has significant peripheral edema. Telemetry shows sinus rhythm . Medications: Medication Review Details: Current Medications Albuterol/Ipratropium (Ipratropium-Albuterol 3 Ml Neb) 3 ml INHALATION Q6H.RESP PRN PRN Reason: SHORTNESS OF BREATH Last Admin: 05/10/22 01:19 Dose: 3 ml Alprazolam (Alprazolam 0.5 Mg Tablet) 0.5 mg PO TID PRN PRN Reason: ANXIETY Last Admin: 05/05/22 21:19 Dose: 0.5 mg Apixaban (Apixaban 5 Mg Tablet) 2.5 mg PO BID RAMIRO Last Admin: 05/10/22 10:20 Dose: 2.5 mg Artificial Tears (Artificial Tears Op Soln 15 Ml Btl) 1 drop EYE-BOTH Q4H PRN PRN Reason: DRY EYE(S) Last Admin: 05/07/22 21:14 Dose: 1 drop Bumetanide (Bumetanide 0.25 Mg/Ml Sdv 4 Ml) 1 mg IVP Q8H RAMIRO Last Admin: 05/10/22 10:19 Dose: 1 mg Capsaicin (Capsaicin 0.025% Cream 60 Gm) 1 applic TOPICAL QID PRN PRN Reason: PAIN Ciprofloxacin/Dexamethasone (Ciprofloxacin-Dexameth Otic Susp 7.5 Ml Btl) 4 drop EAR-RIGHT BID [facility]IRO; Protocol Last Admin: 05/10/22 10:19 Dose: 4 drop Dextrose (Dextrose 50% Syringe 50 Ml) 25 ml IVP ONCE PRN; Protocol PRN Reason: hypoglycemia protocol Dextrose (Dextrose 50% Syringe 50 Ml) 50 ml IVP PRN PRN; Protocol PRN Reason: hypoglycemia protocol Diltiazem HCl (Diltiazem Er (24hr) 300 Mg Capsule) 300 mg PO DAILY [facility] Last Admin: 05/10/22 10:20 Dose: 300 mg Doxycycline Monohydrate (Doxycycline 100 Mg Tablet) 100 mg PO BID RAMIRO; Protocol Last Admin: 05/10/22 10:18 Dose: 100 mg Fludrocortisone Acetate (Fludrocortisone 0.1 Mg Tablet) 0.1 mg PO EVERY OTHER DAY [facility] Glucagon (Glucagon 1 Mg/Ml Inj 1 Ml) 1 mg IM ONCE PRN; Protocol PRN Reason: Adult Acute Hypoglycemia Prot. Hydrocortisone (Hydrocortisone 10 Mg Tablet) 20 mg PO QAM [facility] Last Admin: 05/10/22 06:15 Dose: 20 mg Hydrocortisone (Hydrocortisone 10 Mg Tablet) 5 mg PO Q24H [facility] Last Admin: 05/10/22 12:52 Dose: 5 mg Hydroxyzine Pamoate (Hydroxyzine 25 Mg Capsule) 25 mg PO BID PRN PRN Reason: Anxiety Last Admin: 05/04/22 22:03 Dose: 25 mg Dextrose (D5w) 500 mls @ 100 mls/hr IV ONCE PRN; Protocol PRN Reason: Adult Acute Hypoglycemia Prot Insulin Human Lispro (Insulin Lispro 100 Unit/1 Ml) 0 unit SUBCUT TIDWM [facility]; Protocol Last Admin: 05/10/22 12:52 Dose: 6 unit Lactulose (Lactulose Oral Liq 20 Gm/30 Ml Udc) 20 gm PO Q12H [facility] Last Admin: 05/10/22 12:52 Dose: 20 gm Lanolin (Lanolin Oint 7 Gm) 1 applic TOPICAL PRN PRN PRN Reason: DRYNESS Last Admin: 05/04/22 22:00 Dose: 1 applic Levothyroxine Sodium (Levothyroxine 175 Mcg Tablet) 175 mcg PO [facility] Last Admin: 05/10/22 06:15 Dose: 175 mcg Magnesium Lactate (Magnesium Lactate 84 Mg Tablet) 84 mg PO [facility] Last Admin: 05/10/22 06:15 Dose: 84 mg Meclizine HCl (Meclizine 25 Mg Tablet) 25 mg PO TID PRN PRN Reason: DIZZINESS Last Admin: 05/10/22 16:35 Dose: 25 mg Midodrine (Midodrine 5 Mg Tablet) 5 mg PO TID [facility] Last Admin: 05/10/22 16:35 Dose: 5 mg Ondansetron HCl (Ondansetron 2 Mg/Ml Sdv 2 Ml) 4 mg IVP Q6H PRN PRN Reason: NAUSEA AND VOMITING Last Admin: 05/10/22 10:20 Dose: 4 mg Ondansetron HCl (Ondansetron 2 Mg/Ml Sdv 2 Ml) 8 mg IVP Q6H PRN PRN Reason: NAUSEA AND VOMITING Last Admin: 05/06/22 09:06 Dose: 8 mg Pantoprazole Sodium (Pantoprazole Dr 40 Mg Tablet) 40 mg PO BID [facility] Last Admin: 05/10/22 10:19 Dose: 40 mg Polyethylene Glycol (Polyethylene Glycol 3350 Pkt 17 Gm) 17 gm PO DAILY PRN PRN Reason: Constipation Last Admin: 05/09/22 21:30 Dose: 17 gm Pramipexole Dihydrochloride (Pramipexole 0.25 Mg Tablet) 1 mg PO BEDTIME [facility]IRO Last Admin: 05/09/22 21:08 Dose: 1 mg Promethazine HCl (Promethazine 25 Mg/Ml Sdv 1 Ml) 25 mg IM Q6H PRN PRN Reason: NAUSEA Last Admin: 05/06/22 09:58 Dose: 25 mg Sodium Chloride (Saline Nasal [place] 44ml Btl) 1 spray NASAL PRN PRN PRN Reason: DRYNESS Sucralfate (Sucralfate 1 Gm Tablet) 1 gm PO AC&BEDTIME [facility]IRO Last Admin: 05/10/22 10:18 Dose: 1 gm Tramadol HCl (Tramadol 50 Mg Tablet) 50 mg PO Q6H PRN PRN Reason: MODERATE PAIN Last Admin: 05/06/22 04:36 Dose: 50 mg Vitals/I&O/Wt Last Vital Signs Temp 98.3 F 05/10/22 15:56 Pulse 74 05/10/22 15:56 Resp 18 05/10/22 15:56 BP 129/72 05/10/22 15:56 Pulse Ox 92 05/10/22 15:56 O2 Del Method 05/10/22 08:00 O2 Flow Rate 2 05/10/22 04:00 FiO2 21 05/08/22 10:00 05/10/22 05/10/22 05/10/22 06:59 14:59 22:59 Output Total 950 / 3300 800 / 800 Balance -950 / -2700 -800 / -800 Weight last 48 hrs Weight 341 lb Weight 339 lb 11.717 oz Physical Exam Narrative: GENERAL: The patient is alert and oriented times three. Not in any acute distress. Morbidly obese HEENT: No significant pallor, icterus or lymphadenopathy.Oral cavity: There are no mucous membrane lesions. NECK: Trachea appears to be central. No masses noted. No JVD or thyromegaly appreciated. RESPIRATORY: Chest is symmetrical. No intercostals muscle retraction or any accessory muscle activation. There is no chest wall tenderness. Breath sounds are heard bilaterally. Occasional expiratory wheeze and no evidence of any consolidation. BREASTS: Deferred. HEART: The heart sounds are normal. No S3 or S4. No significant murmurs. No pericardial rub ABDOMEN: No vessel pulsations or distention. No tenderness. No organomegaly appreciated. Bowel sounds are normally heard. : Deferred. RECTAL: Deferred. LYMPHATIC: No lymphadenopathy noted in the neck. EXTREMITIES: 1-2+ edema with redness in both lower extremities MUSCULOSKELETAL: No acute joint deformities or swelling SKIN: There are no significant rashes or ecchymosis NEUROPSYCHIATRIC: The patient is alert and oriented x3. Appears to be in a good mood. No tremors or rigidity noted. Urinary Catheter Management: Zurita: Cath Placed During This Visit: yes Reason for Continuing Indwelling Catheter: Acute Urinary Retention or Obstruction Urinary Catheter Date of Insertion: 05/01/22 Urinary Catheter Time of Insertion: 18:30 Data 05/10/22 05:04 05/10/22 05:04 A&P Assessment and plan (1) Hyperkalemia: Continue with potassium supplement. May need to go back on the IV Bumex. (2) Intermittent atrial fibrillation: Patient is staying in the normal sinus rhythm at this time. Will continue on the current medication (3) Acute on chronic diastolic (congestive) heart failure: Continue on careful diuresis and other symptomatic measures (4) Steroid dependence: Management as per the primary. (5) Chronic kidney disease, stage 3a: Management as per the primary. Currently the kidney function seems to be appropriate. (6) Cellulitis: The patient is on antibiotics. Plan Contacted Dr. Reyna, at the [facility] in [place]. Patient may benefit from AV andrew ablation and permanent pacing. Dr. Reyna will see the patient as an outpatient and will make the final decision. Attestations Medical Necessity Statement*: Disposition as per the primary Coding Level of Care Code 07331 Diagnoses Hyperkalemia E87.5 Intermittent atrial fibrillation I48.0 Acute on chronic diastolic (congestive) heart failure I50.33 Steroid dependence F19.20 Chronic kidney disease, stage 3a N18.31 Cellulitis L03.90
[2022-05-10 19:30] LABS: Potassium 3.2 mmol/L (3.5-5.1)
[2022-05-10] MEDS: pramipexole 0.25 mg Tablet 1 MG PO (20:41)
[2022-05-10] MEDS: ciprofloxacin-dexameth Otic Susp 7.5 mL Btl 4 DROP EAR-RIGHT (20:42)
[2022-05-10 20:51] LABS: Glucose Point of Care 145 mg/dL (70-110)
[2022-05-11] VITALS (11 sets, daily range): BP systolic 106–141; BP diastolic 61–80; PULSE 65–79; RESP 14–21; TEMP 36.7–37.1; O2SAT 90–98
[2022-05-11] MEDS: bumetanide 0.25 mg/mL SDV 4 mL 1 MG IVP ×3 (00:06→16:13)
[2022-05-11 05:24] LABS: Basophils # 0.1 10^3/uL (0.0-0.1); Basophils % 0.8 %; Eosinophils # 0.4 10^3/uL (0.0-0.8); Eosinophils % 2.8 %; Hematocrit 37.6 % (37.0-47.0); Hemoglobin 10.4 g/dL (11.5-15.3); Lymphocytes # 2.2 10^3/uL (0.8-4.8); Lymphocytes % 14.2 %; Mean Corpuscular HGB Conc 27.7 g/dL (30.0-36.0); Mean Corpuscular Hemoglobin 19.2 pg (28.0-34.0); Mean Corpuscular Volume 69.4 fl (81-99); Mean Platelet Volume 9.4 fL (7.4-10.4); Monocytes # 1.6 10^3/uL (0.2-0.9); Neutrophils # 10.75 10^3/uL (1.8-7.7); Neutrophils % 69.6 %; Nucleated Red Blood Cells % 0.3 %; Platelet Count 371 10^3/cmm (130-400); Red Blood Count 5.42 10^6/uL (4.1-5.3); Red Cell Distribution Width 20.5 % (12.1-15.1); White Blood Count 15.5 10^3/uL (4.0-10.0)
[2022-05-11] MEDS: hydrocortisone 10 mg Tablet 20 MG PO (05:26)
[2022-05-11] MEDS: levothyroxine 175 mcg Tablet PO (05:26)
[2022-05-11] MEDS: magnesium lactate 84 mg Tablet PO (05:26)
[2022-05-11] MEDS: meclizine 25 mg tablet PO ×2 (05:26→16:13)
[2022-05-11 05:46] LABS: Anion Gap 15.9 (5-19); Blood Urea Nitrogen 25 mg/dL (8-23); Calcium 8.8 mg/dL (8.5-10.5); Carbon Dioxide 32 mmol/L (22-29); Chloride 89 mmol/L (98-107); Glucose 129 mg/dL (65-115); Magnesium 1.8 mg/dL (1.7-2.3); Osmolality Calculated 284 mOsm/kg (285-295); Sodium 134 mmol/L (136-145)
[2022-05-11 06:02] LABS: Potassium 2.9 mmol/L (3.5-5.1)
[2022-05-11] MEDS: potassium chloride ER 20 mEq Tablet 80 MEQ PO (06:29)
[2022-05-11 06:58] LABS: Glucose Point of Care 141 mg/dL (70-110)
[2022-05-11] MEDS: ciprofloxacin-dexameth Otic Susp 7.5 mL Btl 4 DROP EAR-RIGHT ×2 (09:00→18:22)
[2022-05-11] MEDS: dilTIAZem ER (24HR) 300 mg Capsule PO (09:01)
[2022-05-11] MEDS: insulin lispro 100 unit/1 mL SUBCUT ×2 (09:01→12:03)
[2022-05-11] MEDS: doxycycline 100 mg Tablet PO ×2 (09:01→18:22)
[2022-05-11] MEDS: apixaban 5 mg Tablet 2.5 MG PO ×2 (09:01→18:22)
[2022-05-11] MEDS: fludrocortisone 0.1 mg Tablet PO (09:01)
[2022-05-11] MEDS: pantoprazole DR 40 mg Tablet PO ×2 (09:02→18:22)
[2022-05-11] MEDS: midodrine 5 mg TABLET PO ×3 (09:02→20:01)
[2022-05-11] MEDS: ondansetron 2 mg/ML SDV 2 mL 4 MG IVP (09:33)
--- NOTE | 2022-05-11 11:51 | PC.SOCIAL ---
IMM Updated Updated pt on IMM. No questions voiced. Provided pt a copy. Initialed, dated, & timed copy in chart.
[2022-05-11 12:02] LABS: Glucose Point of Care 140 mg/dL (70-110)
[2022-05-11] MEDS: hydrocortisone 10 mg Tablet 5 MG PO ×2 (12:03→14:19)
--- NOTE | 2022-05-11 15:43 | PC.OT ---
OT TREATMENT ATTEMPTED THIS AFTERNOON PER PATIENT REQUEST YESTERDAY. PATIENT STATES SHE ALREADY SHOWERED WITH NURSING EARLIER AND DOES NOT WISH FOR THERAPY AT THIS TIME. WILL ATTEMPT AGAIN TOMORROW.
[2022-05-11 16:39] LABS: Glucose Point of Care 131 mg/dL (70-110)
--- NOTE | 2022-05-11 18:51 | PM.PN ---
Subjective Subjective: Patient was having more wheezing and shortness of breath today with activities. She had a features of COPD exacerbation. Telemetry still shows sinus rhythm. Hypokalemia still persists. Medications: Medication Review Details: Current Medications Albuterol/Ipratropium (Ipratropium-Albuterol 3 Ml Neb) 3 ml INHALATION Q6H.RESP PRN PRN Reason: SHORTNESS OF BREATH Last Admin: 05/10/22 01:19 Dose: 3 ml Alprazolam (Alprazolam 0.5 Mg Tablet) 0.5 mg PO TID PRN PRN Reason: ANXIETY Last Admin: 05/05/22 21:19 Dose: 0.5 mg Apixaban (Apixaban 5 Mg Tablet) 2.5 mg PO BID RAMIRO Last Admin: 05/11/22 18:22 Dose: 2.5 mg Artificial Tears (Artificial Tears Op Soln 15 Ml Btl) 1 drop EYE-BOTH Q4H PRN PRN Reason: DRY EYE(S) Last Admin: 05/07/22 21:14 Dose: 1 drop Bumetanide (Bumetanide 0.25 Mg/Ml Sdv 4 Ml) 1 mg IVP Q8H RAMIRO Last Admin: 05/11/22 16:13 Dose: 1 mg Capsaicin (Capsaicin 0.025% Cream 60 Gm) 1 applic TOPICAL QID PRN PRN Reason: PAIN Ciprofloxacin/Dexamethasone (Ciprofloxacin-Dexameth Otic Susp 7.5 Ml Btl) 4 drop EAR-RIGHT BID RAMIRO; Protocol Last Admin: 05/11/22 18:22 Dose: 4 drop Dextrose (Dextrose 50% Syringe 50 Ml) 25 ml IVP ONCE PRN; Protocol PRN Reason: hypoglycemia protocol Dextrose (Dextrose 50% Syringe 50 Ml) 50 ml IVP PRN PRN; Protocol PRN Reason: hypoglycemia protocol Diltiazem HCl (Diltiazem Er (24hr) 300 Mg Capsule) 300 mg PO DAILY ON LICENSE OF [facility] Last Admin: 05/11/22 09:01 Dose: 300 mg Doxycycline Monohydrate (Doxycycline 100 Mg Tablet) 100 mg PO BID ON LICENSE OF [facility]; Protocol Last Admin: 05/11/22 18:22 Dose: 100 mg Fludrocortisone Acetate (Fludrocortisone 0.1 Mg Tablet) 0.1 mg PO EVERY OTHER DAY ON LICENSE OF [facility] Last Admin: 05/11/22 09:01 Dose: 0.1 mg Glucagon (Glucagon 1 Mg/Ml Inj 1 Ml) 1 mg IM ONCE PRN; Protocol PRN Reason: Adult Acute Hypoglycemia Prot. Hydrocortisone (Hydrocortisone 10 Mg Tablet) 40 mg PO QAM ON LICENSE OF [facility] Hydrocortisone (Hydrocortisone 10 Mg Tablet) 10 mg PO Q24H ON LICENSE OF [facility] Last Admin: 05/11/22 13:50 Dose: Not Given Hydroxyzine Pamoate (Hydroxyzine 25 Mg Capsule) 25 mg PO BID PRN PRN Reason: Anxiety Last Admin: 05/04/22 22:03 Dose: 25 mg Dextrose (D5w) 500 mls @ 100 mls/hr IV ONCE PRN; Protocol PRN Reason: Adult Acute Hypoglycemia Prot Insulin Human Lispro (Insulin Lispro 100 Unit/1 Ml) 0 unit SUBCUT TIDWM ON LICENSE OF [facility]; Protocol Last Admin: 05/11/22 16:56 Dose: Not Given Lactulose (Lactulose Oral Liq 20 Gm/30 Ml Udc) 20 gm PO Q12H ON LICENSE OF [facility] Last Admin: 05/11/22 11:03 Dose: Not Given Lanolin (Lanolin Oint 7 Gm) 1 applic TOPICAL PRN PRN PRN Reason: DRYNESS Last Admin: 05/04/22 22:00 Dose: 1 applic Levothyroxine Sodium (Levothyroxine 175 Mcg Tablet) 175 mcg PO [facility] Last Admin: 05/11/22 05:26 Dose: 175 mcg Magnesium Lactate (Magnesium Lactate 84 Mg Tablet) 84 mg PO [facility] Last Admin: 05/11/22 05:26 Dose: 84 mg Meclizine HCl (Meclizine 25 Mg Tablet) 25 mg PO TID PRN PRN Reason: DIZZINESS Last Admin: 05/11/22 16:13 Dose: 25 mg Midodrine (Midodrine 5 Mg Tablet) 5 mg PO TID ON LICENSE OF [facility] Last Admin: 05/11/22 14:18 Dose: 5 mg Ondansetron HCl (Ondansetron 2 Mg/Ml Sdv 2 Ml) 4 mg IVP Q6H PRN PRN Reason: NAUSEA AND VOMITING Last Admin: 05/11/22 09:33 Dose: 4 mg Ondansetron HCl (Ondansetron 2 Mg/Ml Sdv 2 Ml) 8 mg IVP Q6H PRN PRN Reason: NAUSEA AND VOMITING Last Admin: 05/06/22 09:06 Dose: 8 mg Pantoprazole Sodium (Pantoprazole Dr 40 Mg Tablet) 40 mg PO BID ON LICENSE OF [facility] Last Admin: 05/11/22 18:22 Dose: 40 mg Polyethylene Glycol (Polyethylene Glycol 3350 Pkt 17 Gm) 17 gm PO DAILY PRN PRN Reason: Constipation Last Admin: 05/09/22 21:30 Dose: 17 gm Pramipexole Dihydrochloride (Pramipexole 0.25 Mg Tablet) 1 mg PO BEDTIME RAMIRO Last Admin: 05/10/22 20:41 Dose: 1 mg Promethazine HCl (Promethazine 25 Mg/Ml Sdv 1 Ml) 25 mg IM Q6H PRN PRN Reason: NAUSEA Last Admin: 05/06/22 09:58 Dose: 25 mg Sodium Chloride (Saline Nasal [place] 44ml Btl) 1 spray NASAL PRN PRN PRN Reason: DRYNESS Sucralfate (Sucralfate 1 Gm Tablet) 1 gm PO AC&BEDTIME RAMIRO Last Admin: 05/11/22 16:56 Dose: Not Given Tramadol HCl (Tramadol 50 Mg Tablet) 50 mg PO Q6H PRN PRN Reason: MODERATE PAIN Last Admin: 05/06/22 04:36 Dose: 50 mg Vitals/I&O/Wt Last Vital Signs Temp 98.0 F 05/11/22 16:00 Pulse 67 05/11/22 16:00 Resp 18 05/11/22 16:00 BP 113/67 05/11/22 16:00 Pulse Ox 92 05/11/22 16:00 O2 Del Method 05/11/22 16:00 O2 Flow Rate 2 05/11/22 08:31 FiO2 21 05/08/22 10:00 05/11/22 05/11/22 05/11/22 06:59 14:59 22:59 Intake Total 360 / 360 240 / 600 Output Total 900 / 900 1000 / 1900 Balance -540 / -540 -760 / -1300 Weight last 48 hrs Weight 343 lb 4 oz Weight 341 lb Physical Exam Narrative: GENERAL: The patient is alert and oriented times three. Not in any acute distress. Morbidly obese HEENT: No significant pallor, icterus or lymphadenopathy.Oral cavity: There are no mucous membrane lesions. NECK: Trachea appears to be central. No masses noted. No JVD or thyromegaly appreciated. RESPIRATORY: Chest is symmetrical. No intercostals muscle retraction or any accessory muscle activation. There is no chest wall tenderness. Breath sounds are heard bilaterally. Occasional expiratory wheeze and no evidence of any consolidation. BREASTS: Deferred. HEART: The heart sounds are normal. No S3 or S4. No significant murmurs. No pericardial rub ABDOMEN: No vessel pulsations or distention. No tenderness. No organomegaly appreciated. Bowel sounds are normally heard. : Deferred. RECTAL: Deferred. LYMPHATIC: No lymphadenopathy noted in the neck. EXTREMITIES: 1-2+ edema with redness in both lower extremities MUSCULOSKELETAL: No acute joint deformities or swelling SKIN: There are no significant rashes or ecchymosis NEUROPSYCHIATRIC: The patient is alert and oriented x3. Appears to be in a good mood. No tremors or rigidity noted. Urinary Catheter Management: [place]: Cath Placed During This Visit: yes Reason for Continuing Indwelling Catheter: Accurate Measurement of Urinary Output in Critically Ill Patients Urinary Catheter Date of Insertion: 05/01/22 Urinary Catheter Time of Insertion: 18:30 Data 05/11/22 05:12 05/11/22 05:12 Other Labs: Laboratory Last Values WBC 15.5 10^3/uL (4.0-10.0) H 05/11/22 05:12 RBC 5.42 10^6/uL (4.1-5.3) H 05/11/22 05:12 Hgb 10.4 g/dL (11.5-15.3) L 05/11/22 05:12 Hct 37.6 % (37.0-47.0) 05/11/22 05:12 MCV 69.4 fl (81-99) L 05/11/22 05:12 MCH 19.2 pg (28.0-34.0) L 05/11/22 05:12 MCHC 27.7 g/dL (30.0-36.0) L 05/11/22 05:12 RDW 20.5 % (12.1-15.1) H 05/11/22 05:12 Plt Count 371 10^3/cmm (130-400) 05/11/22 05:12 MPV 9.4 fL (7.4-10.4) 05/11/22 05:12 Neut % (Auto) 69.6 % 05/11/22 05:12 Lymph % (Auto) 14.2 % 05/11/22 05:12 [place] % (Auto) 10.0 % 05/11/22 05:12 Eos % (Auto) 2.8 % 05/11/22 05:12 Baso % (Auto) 0.8 % 05/11/22 05:12 Neut # (Auto) 10.75 10^3/uL (1.8-7.7) H 05/11/22 05:12 Lymph # (Auto) 2.2 10^3/uL (0.8-4.8) 05/11/22 05:12 [place] # (Auto) 1.6 10^3/uL (0.2-0.9) H 05/11/22 05:12 Eos # (Auto) 0.4 10^3/uL (0.0-0.8) 05/11/22 05:12 Baso # (Auto) 0.1 10^3/uL (0.0-0.1) 05/11/22 05:12 Nucleated RBC % (auto) 0.3 % 05/11/22 05:12 Nucleated RBCs # 0.0 /100WBC 05/11/22 05:12 Specimen Type Arterial 05/06/22 13:56 Sample Site Radial, right 05/06/22 13:56 ABG pH 7.33 (7.35-7.45) L 05/06/22 13:56 ABG pCO2 56.2 mmHg (35-45) H 05/06/22 13:56 ABG pO2 81.2 mmHg (80.0-100.0) 05/06/22 13:56 ABG HCO3 29.8 mmol/L (22-26) H 05/06/22 13:56 ABG Base Excess 2.9 mmol/L (-2.0-2.0) H 05/06/22 13:56 Surya Test Pos 05/06/22 13:56 Hematocrit 34.0 % (37-47) L 05/06/22 13:56 O2 Delivery Device Nc 05/06/22 13:56 O2 Liters/Min 4.0 % 05/06/22 13:56 FiO2 36.0 % 05/06/22 13:56 Head Of English ID [place] 05/06/22 13:56 Sodium 134 mmol/L (136-145) L 05/11/22 05:12 Potassium 2.9 mmol/L (3.5-5.1) L 05/11/22 05:12 Chloride 89 mmol/L (98-107) L 05/11/22 05:12 Carbon Dioxide 32 mmol/L (22-29) H 05/11/22 05:12 Anion Gap 15.9 (5-19) 05/11/22 05:12 BUN 25 mg/dL (8-23) H 05/11/22 05:12 Creatinine 1.6 mg/dL (0.5-0.9) H 05/11/22 05:12 GFR Calculation 32.0 mL/min (90-130) L 05/11/22 05:12 Glucose 129 mg/dL (65-115) H 05/11/22 05:12 POC Glucose 131 mg/dL (70-110) H 05/11/22 16:32 Calculated Osmolality 284 mOsm/kg (285-295) L 05/11/22 05:12 Lactate 1.0 mmol/L (0.5-2.2) 05/06/22 10:20 Calcium 8.8 mg/dL (8.5-10.5) 05/11/22 05:12 Phosphorus 4.1 mg/dL (2.5-4.5) 05/08/22 02:55 Magnesium 1.8 mg/dL (1.7-2.3) 05/11/22 05:12 Iron 16 ug/dL (37-145) L 05/08/22 02:55 TIBC 312 mcg/dl 05/08/22 02:55 % Saturation 5.1 % (20-50) L 05/08/22 02:55 Unsat Iron Binding 296 ug/dL (112-347) 05/08/22 02:55 Ferritin 29 ng/mL (15-150) 05/08/22 02:55 Total Bilirubin 0.3 mg/dL (0.15-1.2) 05/08/22 02:55 Direct Bilirubin 0.20 mg/dL (0.00-0.30) 05/06/22 10:20 AST 13 U/L (0-32) 05/08/22 02:55 ALT 20 U/L (0-33) 05/08/22 02:55 Alkaline Phosphatase 114 U/L (35-105) H 05/08/22 02:55 C-Reactive Protein 6.0 mg/L (0.0-4.9) H 05/08/22 02:55 NT-Pro-B Natriuret Pep 1187 pg/mL (0-125) H 05/09/22 04:18 Total Protein 5.4 g/dL (6.6-8.7) L 05/08/22 02:55 Albumin 3.6 g/dL (3.5-5.2) 05/08/22 02:55 Globulin 1.8 g/dL (1.3-4.6) 05/08/22 02:55 Procalcitonin 0.04 ng/mL (0-0.5) 05/08/22 02:55 TSH 1.48 uIU/mL (0.27-4.20) 05/06/22 10:20 Random Cortisol 0.69 ug/dL (2.47-19.5) L 05/09/22 04:18 Urine Color Yellow (Yellow) 05/06/22 15:15 Urine Appearance Hazy (CLEAR) A 05/06/22 15:15 Urine pH 5 (5-7) 05/06/22 15:15 Ur Specific [place] 1.025 (1.005-1.030) 05/06/22 15:15 Urine Protein 1+ (Negative) H 05/06/22 15:15 Urine Glucose (UA) 1+ (Normal) H 05/06/22 15:15 Urine Ketones 1+ (Negative) H 05/06/22 15:15 Urine Blood 3+ (Negative) H 05/06/22 15:15 Urine Nitrate Negative (Negative) 05/06/22 15:15 Urine Bilirubin Neg (Negative) 05/06/22 15:15 Urine Urobilinogen 1 mg/dL (Negative) H 05/06/22 15:15 Ur Leukocyte Esterase 2+ (Negative) H 05/06/22 15:15 Urine RBC 25-40 /hpf (0-2) H 05/06/22 15:15 Urine WBC 40-55 /hpf (0-5) H 05/06/22 15:15 Ur Squamous Epith Cells None /hpf (0-5) 05/06/22 15:15 Amorphous Sediment Not Reportable 05/06/22 15:15 Urine Bacteria 1+ /hpf (NONE) H 05/06/22 15:15 Vancomycin Trough 15.9 ug/mL (10-15) H 05/07/22 12:58 Digoxin 0.7 ng/mL (0.6-1.2) 05/06/22 10:20 Coronavirus 229E (PCR) Not detected (NOT DETECT) 05/04/22 20:15 SARS-CoV-2 (PCR) Not detected (NOT DETECT) 05/04/22 20:15 Micro: Microbiology 05/06/22 15:22 Blood Culture - Final Blood NO GROWTH AFTER 5 DAYS 05/06/22 10:20 Blood Culture - Final Blood NO GROWTH AFTER 5 DAYS A&P Assessment and plan (1) Hyperkalemia: Continue with potassium supplement. Consider restarting the spironolactone. Increase the potassium to 40 every 6 hours (2) Intermittent atrial fibrillation: Patient is staying in the normal sinus rhythm at this time. Will continue on the current medication (3) Acute on chronic diastolic (congestive) heart failure: Continue on careful diuresis and other symptomatic measures (4) Steroid dependence: Management as per the primary. (5) Chronic kidney disease, stage 3a: Management as per the primary. Currently the kidney function seems to be stable (6) Cellulitis: The patient is on antibiotics. Plan Contacted Dr. Reyna, at the [facility] in [place]. Patient may benefit from AV andrew ablation and permanent pacing because of her intolerance to antiarrhythmics and ongoing intermittent symptomatic A-fib. Dr. Reyna will see the patient as an outpatient and will make the final decision. Attestations Medical Necessity Statement*: Patient requires continued hospital stay for close monitoring and further management Coding Level of Care Code 13897 Diagnoses Hyperkalemia E87.5 Intermittent atrial fibrillation I48.0 Acute on chronic diastolic (congestive) heart failure I50.33 Steroid dependence F19.20 Chronic kidney disease, stage 3a N18.31 Cellulitis L03.90
--- NOTE | 2022-05-11 19:17 | PC.NURSE ---
Patient has done well today. On room air all day. Up in the chair all day. Patient had excellent urine output. Nausea has improved. Patient took a shower today. Currently resting in chair watching tv.
[2022-05-11] MEDS: potassium chloride ER 20 mEq Tablet 40 MEQ PO (19:30)
[2022-05-11] MEDS: pramipexole 0.25 mg Tablet 1 MG PO (20:01)
--- NOTE | 2022-05-11 20:18 | P.PN_ITS ---
Subjective Subjective: Iron deficiency anemia. Occult blood stool results reviewed and negative. Discussing with his daughter, she would be okay with him receiving blood transfusion. Feels that endoscopy would be too much for him. Again had nausea. Medications: Medication Review Details: Current Medications Albuterol/Ipratropium (Ipratropium-Albuterol 3 Ml Neb) 3 ml INHALATION Q6H.RESP PRN PRN Reason: SHORTNESS OF BREATH Last Admin: 05/10/22 01:19 Dose: 3 ml Alprazolam (Alprazolam 0.5 Mg Tablet) 0.5 mg PO TID PRN PRN Reason: ANXIETY Last Admin: 05/05/22 21:19 Dose: 0.5 mg Apixaban (Apixaban 5 Mg Tablet) 2.5 mg PO BID [facility] Last Admin: 05/11/22 18:22 Dose: 2.5 mg Artificial Tears (Artificial Tears Op Soln 15 Ml Btl) 1 drop EYE-BOTH Q4H PRN PRN Reason: DRY EYE(S) Last Admin: 05/07/22 21:14 Dose: 1 drop Bumetanide (Bumetanide 0.25 Mg/Ml Sdv 4 Ml) 1 mg IVP Q8H [facility] Last Admin: 05/11/22 16:13 Dose: 1 mg Capsaicin (Capsaicin 0.025% Cream 60 Gm) 1 applic TOPICAL QID PRN PRN Reason: PAIN Ciprofloxacin/Dexamethasone (Ciprofloxacin-Dexameth Otic Susp 7.5 Ml Btl) 4 drop EAR-RIGHT BID RAMIRO; Protocol Last Admin: 05/11/22 18:22 Dose: 4 drop Dextrose (Dextrose 50% Syringe 50 Ml) 25 ml IVP ONCE PRN; Protocol PRN Reason: hypoglycemia protocol Dextrose (Dextrose 50% Syringe 50 Ml) 50 ml IVP PRN PRN; Protocol PRN Reason: hypoglycemia protocol Diltiazem HCl (Diltiazem Er (24hr) 300 Mg Capsule) 300 mg PO DAILY [facility] Last Admin: 05/11/22 09:01 Dose: 300 mg Doxycycline Monohydrate (Doxycycline 100 Mg Tablet) 100 mg PO BID [facility]; Protocol Last Admin: 05/11/22 18:22 Dose: 100 mg Fludrocortisone Acetate (Fludrocortisone 0.1 Mg Tablet) 0.1 mg PO EVERY OTHER DAY [facility] Last Admin: 05/11/22 09:01 Dose: 0.1 mg Glucagon (Glucagon 1 Mg/Ml Inj 1 Ml) 1 mg IM ONCE PRN; Protocol PRN Reason: Adult Acute Hypoglycemia Prot. Hydrocortisone (Hydrocortisone 10 Mg Tablet) 40 mg PO QAM [facility] Hydrocortisone (Hydrocortisone 10 Mg Tablet) 10 mg PO Q24H [facility] Last Admin: 05/11/22 13:50 Dose: Not Given Hydroxyzine Pamoate (Hydroxyzine 25 Mg Capsule) 25 mg PO BID PRN PRN Reason: Anxiety Last Admin: 05/04/22 22:03 Dose: 25 mg Dextrose (D5w) 500 mls @ 100 mls/hr IV ONCE PRN; Protocol PRN Reason: Adult Acute Hypoglycemia Prot Insulin Human Lispro (Insulin Lispro 100 Unit/1 Ml) 0 unit SUBCUT TIDWM [facility]; Protocol Last Admin: 05/11/22 16:56 Dose: Not Given Lactulose (Lactulose Oral Liq 20 Gm/30 Ml Udc) 20 gm PO Q12H [facility] Last Admin: 05/11/22 11:03 Dose: Not Given Lanolin (Lanolin Oint 7 Gm) 1 applic TOPICAL PRN PRN PRN Reason: DRYNESS Last Admin: 05/04/22 22:00 Dose: 1 applic Levothyroxine Sodium (Levothyroxine 175 Mcg Tablet) 175 mcg PO [facility] Last Admin: 05/11/22 05:26 Dose: 175 mcg Magnesium Lactate (Magnesium Lactate 84 Mg Tablet) 84 mg PO [facility] Last Admin: 05/11/22 05:26 Dose: 84 mg Meclizine HCl (Meclizine 25 Mg Tablet) 25 mg PO TID PRN PRN Reason: DIZZINESS Last Admin: 05/11/22 16:13 Dose: 25 mg Midodrine (Midodrine 5 Mg Tablet) 5 mg PO TID [facility] Last Admin: 05/11/22 14:18 Dose: 5 mg Ondansetron HCl (Ondansetron 2 Mg/Ml Sdv 2 Ml) 4 mg IVP Q6H PRN PRN Reason: NAUSEA AND VOMITING Last Admin: 05/11/22 09:33 Dose: 4 mg Ondansetron HCl (Ondansetron 2 Mg/Ml Sdv 2 Ml) 8 mg IVP Q6H PRN PRN Reason: NAUSEA AND VOMITING Last Admin: 05/06/22 09:06 Dose: 8 mg Pantoprazole Sodium (Pantoprazole Dr 40 Mg Tablet) 40 mg PO BID [facility] Last Admin: 05/11/22 18:22 Dose: 40 mg Polyethylene Glycol (Polyethylene Glycol 3350 Pkt 17 Gm) 17 gm PO DAILY PRN PRN Reason: Constipation Last Admin: 05/09/22 21:30 Dose: 17 gm Pramipexole Dihydrochloride (Pramipexole 0.25 Mg Tablet) 1 mg PO BEDTIME [facility]IR[facility] Last Admin: 05/10/22 20:41 Dose: 1 mg Promethazine HCl (Promethazine 25 Mg/Ml Sdv 1 Ml) 25 mg IM Q6H PRN PRN Reason: NAUSEA Last Admin: 05/06/22 09:58 Dose: 25 mg Sodium Chloride (Saline Nasal Commiskey 44ml Btl) 1 spray NASAL PRN PRN PRN Reason: DRYNESS Sucralfate (Sucralfate 1 Gm Tablet) 1 gm PO AC&BEDTIME RAMIRO Last Admin: 05/11/22 16:56 Dose: Not Given Tramadol HCl (Tramadol 50 Mg Tablet) 50 mg PO Q6H PRN PRN Reason: MODERATE PAIN Last Admin: 05/06/22 04:36 Dose: 50 mg Vitals/I&O/Wt Last Vital Signs Temp 98.0 F 05/11/22 16:00 Pulse 67 05/11/22 16:00 Resp 18 05/11/22 16:00 BP 113/67 05/11/22 16:00 Pulse Ox 92 05/11/22 16:00 O2 Del Method 05/11/22 16:00 O2 Flow Rate 2 05/11/22 08:31 FiO2 21 05/08/22 10:00 05/11/22 05/11/22 05/11/22 06:59 14:59 22:59 Intake Total 360 / 360 240 / 600 Output Total 900 / 900 1000 / 1900 Balance -540 / -540 -760 / -1300 Weight last 48 hrs Weight 155.696 kg Weight 154.675 kg Physical Exam Const: COMMON NORMALS: patient oriented x3 and alert GENERAL APPEARANCE: cooperative NUTRITIONAL APPEARANCE: obese morbidly obese ORIENTATION /CONSCIOUSNESS: Yes awake HENMT: COMMON NORMALS: oropharynx normal EXTERNAL AUDITORY CANAL: Abnormal EAC present EAC laterality: right Details: erythema Neck/C-Spine: COMMON NORMALS: no JVD Resp: COMMON NORMALS: normal respiratory effort and clear to auscultation bilaterally AUSCULTATION: clear to auscultation bilaterally Cardio: COMMON NORMALS: no JVD, regular rhythm, S1 normal heart sound present, S2 normal heart sound present and No murmurs present (Cardio) RATE: tachycardic RHYTHM: regular rhythm and abnormal rhythm irregularly irregular HEART SOUNDS: S1 normal heart sound present and S2 normal heart sound present GI: COMMON NORMALS: Normal to inspection, nondistended, normoactive bowel sounds present, Soft to palpation and non-tender PALPATION: Yes Soft to palpation Extremity: GENERAL: Yes edema (2-3+) OTHER: Proximal muscle weakness. Coarse tremors. No rigidity. Neuro: COMMON NORMALS: patient oriented x3 and moves all extremities SENSORIUM/ORIENTATION: Yes alert Skin: OTHER: Still present mild erythema of lower bilateral shins. No weeping. No open wounds. Urinary Catheter Management: [place]: Cath Placed During This Visit: yes Reason for Continuing Indwelling Catheter: Accurate Measurement of Urinary Output in Critically Ill Patients Urinary Catheter Date of Insertion: 05/01/22 Urinary Catheter Time of Insertion: 18:30 Data 05/11/22 05:12 05/11/22 05:12 Micro: Microbiology 05/06/22 15:22 Blood Culture - Final Blood NO GROWTH AFTER 5 DAYS 05/06/22 10:20 Blood Culture - Final Blood NO GROWTH AFTER 5 DAYS A&P Assessment and plan (1) CHF (congestive heart failure): Intake and output reviewed. Negative balance. However, still significant lower extremity edema. Continue IV diuretics given slow response likely will require a couple more days. Receiving quite large doses of potassium as well and still hypokalemic. Would be concerned regarding escalating diuretic further. Requires close monitoring of potassium, blood pressures due to severe hypokalemia, hypotension. Follow-up chemistry requested. She is having still quite significant edema, 2-3+. Reviewed intake and output. Is in negative balance. Cellulitis appears to be responding to diuresis today lites do not appear as good, but better than several days ago. Requires monitoring of renal function in the setting of CKD. Treatment made more difficult due to adrenal insufficiency. Fludrocortisone. Discussed with her and her . Qualifiers: Heart failure type: unspecified Heart failure chronicity: acute Qualified Code(s): I50.9 - Heart failure, unspecified (2) Hypotension: Overnight reports hypotension, systolic blood pressure down into the 80s. I do not see review of the vitals, but do see BP 92/64 late last night. Again had nausea. Discussed with her we will increase hydrocortisone. Please inadequate response, may have to go back up on fludrocortisone. (3) Hypokalemia: Received 80 mg yesterday, potassium still 2.9 this morning, additional 80 mg given this morning. Magnesium 1.8, given magnesium supplementation. Requested recheck magnesium level. Requires close monitoring with IV diuresis. Continue cardiac monitoring (4) Paroxysmal atrial fibrillation with RVR: She tells me per discussion with cardiology who had spoken with Dr. Reyna plan on subsequent visit would include possible AV andrew ablation with pacemaker. Heart rates reviewed, history of heart rates were on elevated side, but today are doing better. Continue Cardizem which was adjusted by cardiology with dose increased to 300 mg. Cardiology will additionally discussed with Dr. Reyna with consideration for additional ablation given very difficult to treat atrial fibrillation with paroxysmal RVR. (5) Adrenal crisis syndrome: Increased dose of hydrocortisone, now continue fludrocortisone to every other day 0.1 mg. Monitor blood pressures. Sodium appreciated, 134, potassium 2.9, bicarb 32. Repeat labs requested. Serum cortisol level reviewed. Decreasing with exogenous steroids. (6) Weakness: Stopped Lyrica Noted today again having coarse tremor. Unclear whether secondary to deconditioning from prolonged hospitalization with CHF exacerbation and other medical conditions. Prefers to return home with therapy. (7) Hypopituitarism: (8) Acute encephalopathy: (9) Nausea and vomiting: Again nausea, dry heaves last night. Maintaining blood pressure. Does not appear to be adrenally insufficient currently. May be similarly related to toxic medication effect. Discussed as above with worsening weakness, tremors, discontinue Lyrica. She does report also history of longstanding vertigo which contributes to her nausea, request for meclizine, requested. Increase Protonix to twice daily. Requested COVID-19 PCR. (10) Acute on chronic diastolic (congestive) heart failure: (11) Atrial fibrillation with RVR: (12) Chronic kidney disease, stage 3a: (13) History of adrenal insufficiency: (14) Anasarca: (15) Aspiration pneumonia: (16) Cellulitis: Now showing improvement. Continue IV diuresis of severe edema. Continue doxycycline. Continue treatment of edema with diuresis for CHF. (17) Edema: Qualifiers: Edema type: unspecified Qualified Code(s): R60.9 - Edema, unspecified (18) Otitis externa: Improving. Continue Ciprodex. (19) Coarse tremors: Again recurrence of tremors. As above. 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 Hemoglobin level appreciated, 10.4. Occult blood test does not appear to be collected so far. Continue Protonix, Carafate. Continue anticoagulation. Discussed referral follow-up for consideration of endoscopy after she is out of acute illness. Acute encephalopathy -Resolved Acute hypoxic hypercarbic respiratory failure secondary to diastolic CHF exacerbation: Resolved Acute hypotension -Resolved Intractable nausea and vomiting -Resolved Cellulitis, continue vancomycin, continue meropenem Type 2 diabetes mellitus, continue insulin sliding scale Attestations Medical Necessity Statement*: Continue for assessment management of CHF, hypertension with adrenal insufficiency, on hydrocortisone and fludrocortisone. Diagnoses CHF (congestive heart failure) I50.9 Heart failure type: unspecified Heart failure chronicity: acute Hypotension I95.9 Hypokalemia E87.6 Paroxysmal atrial fibrillation with RVR I48.0 Adrenal crisis syndrome E27.2 Weakness R53.1 Hypopituitarism E23.0 Acute encephalopathy G93.40 Nausea and vomiting R11.2 Acute on chronic diastolic (congestive) heart failure I50.33 Atrial fibrillation with RVR I48.91 Chronic kidney disease, stage 3a N18.31 History of adrenal insufficiency Z86.39 Anasarca R60.1 Aspiration pneumonia J69.0 Cellulitis L03.90 Edema R60.9 Edema type: unspecified Otitis externa H60.90 Coarse tremors G25.2 RODRIGUE (acute kidney injury) N17.9 Hypothyroid E03.9 Diabetes E11.9 Atrial fibrillation I48.91 Hyperkalemia E87.5 Acute hypercapnic respiratory failure J96.02 Iron deficiency anemia D50.9 GI bleed K92.2
[2022-05-11] MEDS: magnesium sulfate premix 2 GM/50 ML PIGGYBACK IV (21:14)
[2022-05-11 22:15] LABS: Glucose Point of Care 153 mg/dL (70-110)
[2022-05-12] VITALS (8 sets, daily range): BP systolic 87–131; BP diastolic 44–73; PULSE 67–76; RESP 16–22; TEMP 36.7–37.6; O2SAT 87–95
[2022-05-12] MEDS: potassium chloride ER 20 mEq Tablet 40 MEQ PO ×5 (00:07→20:53)
[2022-05-12] MEDS: bumetanide 0.25 mg/mL SDV 4 mL 1 MG IVP ×3 (00:07→18:07)
[2022-05-12 05:17] LABS: Basophils # 0.1 10^3/uL (0.0-0.1); Basophils % 0.9 %; Eosinophils # 0.5 10^3/uL (0.0-0.8); Eosinophils % 3.6 %; Hematocrit 37.2 % (37.0-47.0); Hemoglobin 10.2 g/dL (11.5-15.3); Lymphocytes # 2.1 10^3/uL (0.8-4.8); Lymphocytes % 16.3 %; Mean Corpuscular HGB Conc 27.4 g/dL (30.0-36.0); Mean Corpuscular Hemoglobin 19.2 pg (28.0-34.0); Mean Corpuscular Volume 70.2 fl (81-99); Mean Platelet Volume 9.7 fL (7.4-10.4); Monocytes # 1.3 10^3/uL (0.2-0.9); Monocytes % 10.2 %; Neutrophils # 8.51 10^3/uL (1.8-7.7); Neutrophils % 66.4 %; Nucleated Red Blood Cells % 0.2 %; Platelet Count 370 10^3/cmm (130-400); Red Cell Distribution Width 20.7 % (12.1-15.1); White Blood Count 12.8 10^3/uL (4.0-10.0)
[2022-05-12] MEDS: ondansetron 2 mg/ML SDV 2 mL 4 MG IVP (05:17)
[2022-05-12] MEDS: magnesium lactate 84 mg Tablet PO (05:17)
[2022-05-12] MEDS: levothyroxine 175 mcg Tablet PO (05:17)
[2022-05-12] MEDS: hydrocortisone 10 mg Tablet 40 MG PO (05:18)
[2022-05-12 05:46] LABS: Anion Gap 15.3 (5-19); Blood Urea Nitrogen 24 mg/dL (8-23); Calcium 9.3 mg/dL (8.5-10.5); Carbon Dioxide 33 mmol/L (22-29); Chloride 90 mmol/L (98-107); Glomerular Filtration Rate 37.3 mL/min (90-130); Glucose 125 mg/dL (65-115); Osmolality Calculated 286 mOsm/kg (285-295); Potassium 3.3 mmol/L (3.5-5.1); Sodium 135 mmol/L (136-145)
[2022-05-12 06:45] LABS: Glucose Point of Care 139 mg/dL (70-110)
[2022-05-12] MEDS: doxycycline 100 mg Tablet PO ×2 (08:44→18:28)
[2022-05-12] MEDS: apixaban 5 mg Tablet 2.5 MG PO ×2 (08:44→18:32)
[2022-05-12] MEDS: pantoprazole DR 40 mg Tablet PO ×2 (08:45→18:29)
[2022-05-12] MEDS: ciprofloxacin-dexameth Otic Susp 7.5 mL Btl 4 DROP EAR-RIGHT ×2 (08:45→18:31)
[2022-05-12] MEDS: dilTIAZem ER (24HR) 300 mg Capsule PO (08:45)
[2022-05-12] MEDS: midodrine 5 mg TABLET PO ×3 (08:45→20:54)
[2022-05-12 10:47] LABS: Glucose Point of Care 205 mg/dL (70-110)
[2022-05-12] MEDS: insulin lispro 100 unit/1 mL SUBCUT ×2 (12:02→18:30)
[2022-05-12] MEDS: hydrocortisone 10 mg Tablet PO (13:03)
[2022-05-12 16:59] LABS: Glucose Point of Care 212 mg/dL (70-110)
[2022-05-12] MEDS: fludrocortisone 0.1 mg Tablet PO (18:29)
--- NOTE | 2022-05-12 19:41 | P.PN_ITS ---
Subjective Subjective: The patient is feeling better. She had episodes of hypotension. The dose of the hydrocortisone and the fludrocortisone were adjusted. Blood pressure seems to be getting better now. She continues to remain in sinus rhythm. Medications: Medication Review Details: Current Medications Albuterol/Ipratropium (Ipratropium-Albuterol 3 Ml Neb) 3 ml INHALATION Q6H.RESP PRN PRN Reason: SHORTNESS OF BREATH Last Admin: 05/10/22 01:19 Dose: 3 ml Alprazolam (Alprazolam 0.5 Mg Tablet) 0.5 mg PO TID PRN PRN Reason: ANXIETY Last Admin: 05/05/22 21:19 Dose: 0.5 mg Apixaban (Apixaban 5 Mg Tablet) 2.5 mg PO BID RAMIRO Last Admin: 05/12/22 18:32 Dose: 2.5 mg Artificial Tears (Artificial Tears Op Soln 15 Ml Btl) 1 drop EYE-BOTH Q4H PRN PRN Reason: DRY EYE(S) Last Admin: 05/07/22 21:14 Dose: 1 drop Bumetanide (Bumetanide 0.25 Mg/Ml Sdv 4 Ml) 1 mg IVP Q8H RAMIRO Last Admin: 05/12/22 18:07 Dose: 1 mg Capsaicin (Capsaicin 0.025% Cream 60 Gm) 1 applic TOPICAL QID PRN PRN Reason: PAIN Ciprofloxacin/Dexamethasone (Ciprofloxacin-Dexameth Otic Susp 7.5 Ml Btl) 4 drop EAR-RIGHT BID RAMIRO; Protocol Last Admin: 05/12/22 18:31 Dose: 4 drop Dextrose (Dextrose 50% Syringe 50 Ml) 25 ml IVP ONCE PRN; Protocol PRN Reason: hypoglycemia protocol Dextrose (Dextrose 50% Syringe 50 Ml) 50 ml IVP PRN PRN; Protocol PRN Reason: hypoglycemia protocol Diltiazem HCl (Diltiazem Er (24hr) 300 Mg Capsule) 300 mg PO DAILY [facility] Last Admin: 05/12/22 08:45 Dose: 300 mg Doxycycline Monohydrate (Doxycycline 100 Mg Tablet) 100 mg PO BID [facility]; Protocol Last Admin: 05/12/22 18:28 Dose: 100 mg Fludrocortisone Acetate (Fludrocortisone 0.1 Mg Tablet) 0.1 mg PO DAILY [facility] Last Admin: 05/12/22 18:29 Dose: 0.1 mg Glucagon (Glucagon 1 Mg/Ml Inj 1 Ml) 1 mg IM ONCE PRN; Protocol PRN Reason: Adult Acute Hypoglycemia Prot. Hydrocortisone (Hydrocortisone 10 Mg Tablet) 40 mg PO QAM [facility] Last Admin: 05/12/22 05:18 Dose: 40 mg Hydrocortisone (Hydrocortisone 10 Mg Tablet) 10 mg PO Q24H [facility] Last Admin: 05/12/22 13:03 Dose: 10 mg Hydroxyzine Pamoate (Hydroxyzine 25 Mg Capsule) 25 mg PO BID PRN PRN Reason: Anxiety Last Admin: 05/04/22 22:03 Dose: 25 mg Dextrose (D5w) 500 mls @ 100 mls/hr IV ONCE PRN; Protocol PRN Reason: Adult Acute Hypoglycemia Prot Insulin Human Lispro (Insulin Lispro 100 Unit/1 Ml) 0 unit SUBCUT TIDWM [facility]; Protocol Last Admin: 05/12/22 18:30 Dose: 6 unit Lactulose (Lactulose Oral Liq 20 Gm/30 Ml Udc) 20 gm PO Q12H [facility] Last Admin: 05/12/22 08:46 Dose: Not Given Lanolin (Lanolin Oint 7 Gm) 1 applic TOPICAL PRN PRN PRN Reason: DRYNESS Last Admin: 05/04/22 22:00 Dose: 1 applic Levothyroxine Sodium (Levothyroxine 175 Mcg Tablet) [address] [facility] Last Admin: 05/12/22 05:17 Dose: 175 mcg Magnesium Lactate (Magnesium Lactate 84 Mg Tablet) [address] [facility] Last Admin: 05/12/22 05:17 Dose: 84 mg Meclizine HCl (Meclizine 25 Mg Tablet) 25 mg PO TID PRN PRN Reason: DIZZINESS Last Admin: 05/11/22 16:13 Dose: 25 mg Midodrine (Midodrine 5 Mg Tablet) 5 mg PO TID [facility] Last Admin: 05/12/22 15:09 Dose: 5 mg Ondansetron HCl (Ondansetron 2 Mg/Ml Sdv 2 Ml) 4 mg IVP Q6H PRN PRN Reason: NAUSEA AND VOMITING Last Admin: 05/12/22 05:17 Dose: 4 mg Ondansetron HCl (Ondansetron 2 Mg/Ml Sdv 2 Ml) 8 mg IVP Q6H PRN PRN Reason: NAUSEA AND VOMITING Last Admin: 05/06/22 09:06 Dose: 8 mg Pantoprazole Sodium (Pantoprazole Dr 40 Mg Tablet) 40 mg PO BID RAMIRO Last Admin: 05/12/22 18:29 Dose: 40 mg Polyethylene Glycol (Polyethylene Glycol 3350 Pkt 17 Gm) 17 gm PO DAILY PRN PRN Reason: Constipation Last Admin: 05/09/22 21:30 Dose: 17 gm Pramipexole Dihydrochloride (Pramipexole 0.25 Mg Tablet) 1 mg PO BEDTIME RAMIRO Last Admin: 05/11/22 20:01 Dose: 1 mg Promethazine HCl (Promethazine 25 Mg/Ml Sdv 1 Ml) 25 mg IM Q6H PRN PRN Reason: NAUSEA Last Admin: 05/06/22 09:58 Dose: 25 mg Sodium Chloride (Saline Nasal [place] 44ml Btl) 1 spray NASAL PRN PRN PRN Reason: DRYNESS Sucralfate (Sucralfate 1 Gm Tablet) 1 gm PO AC&BEDTIME RAMIRO Last Admin: 05/12/22 18:31 Dose: Not Given Tramadol HCl (Tramadol 50 Mg Tablet) 50 mg PO Q6H PRN PRN Reason: MODERATE PAIN Last Admin: 05/06/22 04:36 Dose: 50 mg Vitals/I&O/Wt Last Vital Signs Temp 98.0 F 05/12/22 16:00 Pulse 71 05/12/22 16:00 Resp 18 05/12/22 16:00 BP 118/72 05/12/22 16:00 Pulse Ox 91 05/12/22 16:00 O2 Del Method 05/12/22 12:00 O2 Flow Rate 2 05/11/22 23:00 FiO2 21 05/08/22 10:00 05/12/22 05/12/22 05/12/22 06:59 14:59 22:59 Intake Total 120 / 720 530 / 530 Output Total 800 / 2700 650 / 650 Balance -680 / -1980 530 / 530 -650 / -120 Weight last 48 hrs Weight 343 lb 4 oz Physical Exam Narrative: GENERAL: The patient is alert and oriented times three. Not in any acute distress. Morbidly obese HEENT: No significant pallor, icterus or lymphadenopathy.Oral cavity: There are no mucous membrane lesions. NECK: Trachea appears to be central. No masses noted. No JVD or thyromegaly appreciated. RESPIRATORY: Chest is symmetrical. No intercostals muscle retraction or any accessory muscle activation. There is no chest wall tenderness. Breath sounds are heard bilaterally. Occasional expiratory wheeze and no evidence of any c onsolidation. BREASTS: Deferred. HEART: The heart sounds are normal. No S3 or S4. No significant murmurs. No pericardial rub ABDOMEN: No vessel pulsations or distention. No tenderness. No organomegaly appreciated. Bowel sounds are normally heard. : Deferred. RECTAL: Deferred. LYMPHATIC: No lymphadenopathy noted in the neck. EXTREMITIES: 1-2+ edema with redness in both lower extremities MUSCULOSKELETAL: No acute joint deformities or swelling SKIN: There are no significant rashes or ecchymosis NEUROPSYCHIATRIC: The patient is alert and oriented x3. Appears to be in a good mood. No tremors or rigidity noted. Urinary Catheter Management: [place]: Cath Placed During This Visit: yes Reason for Continuing Indwelling Catheter: Acute Urinary Retention or Obstruction Urinary Catheter Date of Insertion: 05/01/22 Urinary Catheter Time of Insertion: 18:30 Data 05/12/22 04:32 05/12/22 04:32 Other Labs: Laboratory Last Values WBC 12.8 10^3/uL (4.0-10.0) H 05/12/22 04:32 RBC 5.30 10^6/uL (4.1-5.3) 05/12/22 04:32 Hgb 10.2 g/dL (11.5-15.3) L 05/12/22 04:32 Hct 37.2 % (37.0-47.0) 05/12/22 04:32 MCV 70.2 fl (81-99) L 05/12/22 04:32 MCH 19.2 pg (28.0-34.0) L 05/12/22 04:32 MCHC 27.4 g/dL (30.0-36.0) L 05/12/22 04:32 RDW 20.7 % (12.1-15.1) H 05/12/22 04:32 Plt Count 370 10^3/cmm (130-400) 05/12/22 04:32 MPV 9.7 fL (7.4-10.4) 05/12/22 04:32 Neut % (Auto) 66.4 % 05/12/22 04:32 Lymph % (Auto) 16.3 % 05/12/22 04:32 [place] % (Auto) 10.2 % 05/12/22 04:32 Eos % (Auto) 3.6 % 05/12/22 04:32 Baso % (Auto) 0.9 % 05/12/22 04:32 Neut # (Auto) 8.51 10^3/uL (1.8-7.7) H 05/12/22 04:32 Lymph # (Auto) 2.1 10^3/uL (0.8-4.8) 05/12/22 04:32 [place] # (Auto) 1.3 10^3/uL (0.2-0.9) H 05/12/22 04:32 Eos # (Auto) 0.5 10^3/uL (0.0-0.8) 05/12/22 04:32 Baso # (Auto) 0.1 10^3/uL (0.0-0.1) 05/12/22 04:32 Nucleated RBC % (auto) 0.2 % 05/12/22 04:32 Nucleated RBCs # 0.0 /100WBC 05/12/22 04:32 Specimen Type Arterial 05/06/22 13:56 Sample Site Radial, right 05/06/22 13:56 ABG pH 7.33 (7.35-7.45) L 05/06/22 13:56 ABG pCO2 56.2 mmHg (35-45) H 05/06/22 13:56 ABG pO2 81.2 mmHg (80.0-100.0) 05/06/22 13:56 ABG HCO3 29.8 mmol/L (22-26) H 05/06/22 13:56 ABG Base Excess 2.9 mmol/L (-2.0-2.0) H 05/06/22 13:56 Surya Test Pos 05/06/22 13:56 Hematocrit 34.0 % (37-47) L 05/06/22 13:56 O2 Delivery Device Nc 05/06/22 13:56 O2 Liters/Min 4.0 % 05/06/22 13:56 FiO2 36.0 % 05/06/22 13:56 Advertising Sales Assistant ID [place] 05/06/22 13:56 Sodium 135 mmol/L (136-145) L 05/12/22 04:32 Potassium 3.3 mmol/L (3.5-5.1) L 05/12/22 04:32 Chloride 90 mmol/L (98-107) L 05/12/22 04:32 Carbon Dioxide 33 mmol/L (22-29) H 05/12/22 04:32 Anion Gap 15.3 (5-19) 05/12/22 04:32 BUN 24 mg/dL (8-23) H 05/12/22 04:32 Creatinine 1.4 mg/dL (0.5-0.9) H 05/12/22 04:32 GFR Calculation 37.3 mL/min (90-130) L 05/12/22 04:32 Glucose 125 mg/dL (65-115) H 05/12/22 04:32 POC Glucose 212 mg/dL (70-110) H 05/12/22 16:56 Calculated Osmolality 286 mOsm/kg (285-295) 05/12/22 04:32 Lactate 1.0 mmol/L (0.5-2.2) 05/06/22 10:20 Calcium 9.3 mg/dL (8.5-10.5) 05/12/22 04:32 Phosphorus 4.1 mg/dL (2.5-4.5) 05/08/22 02:55 Magnesium 1.8 mg/dL (1.7-2.3) 05/11/22 05:12 Iron 16 ug/dL (37-145) L 05/08/22 02:55 TIBC 312 mcg/dl 05/08/22 02:55 % Saturation 5.1 % (20-50) L 05/08/22 02:55 Unsat Iron Binding 296 ug/dL (112-347) 05/08/22 02:55 Ferritin 29 ng/mL (15-150) 05/08/22 02:55 Total Bilirubin 0.3 mg/dL (0.15-1.2) 05/08/22 02:55 Direct Bilirubin 0.20 mg/dL (0.00-0.30) 05/06/22 10:20 AST 13 U/L (0-32) 05/08/22 02:55 ALT 20 U/L (0-33) 05/08/22 02:55 Alkaline Phosphatase 114 U/L (35-105) H 05/08/22 02:55 C-Reactive Protein 6.0 mg/L (0.0-4.9) H 05/08/22 02:55 NT-Pro-B Natriuret Pep 1187 pg/mL (0-125) H 05/09/22 04:18 Total Protein 5.4 g/dL (6.6-8.7) L 05/08/22 02:55 Albumin 3.6 g/dL (3.5-5.2) 05/08/22 02:55 Globulin 1.8 g/dL (1.3-4.6) 05/08/22 02:55 Procalcitonin 0.04 ng/mL (0-0.5) 05/08/22 02:55 TSH 1.48 uIU/mL (0.27-4.20) 05/06/22 10:20 Random Cortisol 0.69 ug/dL (2.47-19.5) L 05/09/22 04:18 Urine Color Yellow (Yellow) 05/06/22 15:15 Urine Appearance Hazy (CLEAR) A 05/06/22 15:15 Urine pH 5 (5-7) 05/06/22 15:15 Ur Specific [place] 1.025 (1.005-1.030) 05/06/22 15:15 Urine Protein 1+ (Negative) H 05/06/22 15:15 Urine Glucose (UA) 1+ (Normal) H 05/06/22 15:15 Urine Ketones 1+ (Negative) H 05/06/22 15:15 Urine Blood 3+ (Negative) H 05/06/22 15:15 Urine Nitrate Negative (Negative) 05/06/22 15:15 Urine Bilirubin Neg (Negative) 05/06/22 15:15 Urine Urobilinogen 1 mg/dL (Negative) H 05/06/22 15:15 Ur Leukocyte Esterase 2+ (Negative) H 05/06/22 15:15 Urine RBC 25-40 /hpf (0-2) H 05/06/22 15:15 Urine WBC 40-55 /hpf (0-5) H 05/06/22 15:15 Ur Squamous Epith Cells None /hpf (0-5) 05/06/22 15:15 Amorphous Sediment Not Reportable 05/06/22 15:15 Urine Bacteria 1+ /hpf (NONE) H 05/06/22 15:15 Vancomycin Trough 15.9 ug/mL (10-15) H 05/07/22 12:58 Digoxin 0.7 ng/mL (0.6-1.2) 05/06/22 10:20 Coronavirus 229E (PCR) Not detected (NOT DETECT) 05/04/22 20:15 SARS-CoV-2 (PCR) Not detected (NOT DETECT) 05/04/22 20:15 Micro: Microbiology 05/06/22 15:22 Blood Culture - Final Blood NO GROWTH AFTER 5 DAYS 05/06/22 10:20 Blood Culture - Final Blood NO GROWTH AFTER 5 DAYS A&P Assessment and plan (1) Hyperkalemia: The potassium level is normal getting back to the normal range. Consider restarting the spironolactone. Continue on the current dose of the potassium (2) Intermittent atrial fibrillation: Patient is staying in the normal sinus rhythm at this time. Will continue on the current medication (3) Acute on chronic diastolic (congestive) heart failure: Continue IV Plex. Start giving Bumex p.o. 2 mg every 8 hours. Potassium 40 mg p.o. every 8 hours. Repeat BMP in the morning (4) Steroid dependence: Management as per the primary. (5) Chronic kidney disease, stage 3a: Management as per the primary. Currently the kidney function seems to be stable (6) Cellulitis: The patient is on antibiotics. Clinically seems to be Plan Continue on the current treatment. We will make arrangements for her to be seen by the pharmacy technician trainee at [facility] in [place] to consider catheter-based options for atrial fibrillation Attestations Medical Necessity Statement*: Possible discharge home today tomorrow Coding Level of Care Code 38249 Diagnoses Hyperkalemia E87.5 Intermittent atrial fibrillation I48.0 Acute on chronic diastolic (congestive) heart failure I50.33 Steroid dependence F19.20 Chronic kidney disease, stage 3a N18.31 Cellulitis L03.90
--- NOTE | 2022-05-12 20:43 | PM.PN ---
Subjective Subjective: Blood pressure was again low this morning. She otherwise still having nausea. Feels that she gets nausea about an hour after receiving doxycycline. Medications: Medication Review Details: Current Medications Albuterol/Ipratropium (Ipratropium-Albuterol 3 Ml Neb) 3 ml INHALATION Q6H.RESP PRN PRN Reason: SHORTNESS OF BREATH Last Admin: 05/10/22 01:19 Dose: 3 ml Alprazolam (Alprazolam 0.5 Mg Tablet) 0.5 mg PO TID PRN PRN Reason: ANXIETY Last Admin: 05/05/22 21:19 Dose: 0.5 mg Apixaban (Apixaban 5 Mg Tablet) 2.5 mg PO BID RAMIRO Last Admin: 05/12/22 18:32 Dose: 2.5 mg Artificial Tears (Artificial Tears Op Soln 15 Ml Btl) 1 drop EYE-BOTH Q4H PRN PRN Reason: DRY EYE(S) Last Admin: 05/07/22 21:14 Dose: 1 drop Bumetanide (Bumetanide 0.25 Mg/Ml Sdv 4 Ml) 1 mg IVP Q8H [facility] Last Admin: 05/12/22 18:07 Dose: 1 mg Capsaicin (Capsaicin 0.025% Cream 60 Gm) 1 applic TOPICAL QID PRN PRN Reason: PAIN Ciprofloxacin/Dexamethasone (Ciprofloxacin-Dexameth Otic Susp 7.5 Ml Btl) 4 drop EAR-RIGHT BID [facility]; Protocol Last Admin: 05/12/22 18:31 Dose: 4 drop Dextrose (Dextrose 50% Syringe 50 Ml) 25 ml IVP ONCE PRN; Protocol PRN Reason: hypoglycemia protocol Dextrose (Dextrose 50% Syringe 50 Ml) 50 ml IVP PRN PRN; Protocol PRN Reason: hypoglycemia protocol Diltiazem HCl (Diltiazem Er (24hr) 300 Mg Capsule) 300 mg PO DAILY [facility] Last Admin: 05/12/22 08:45 Dose: 300 mg Doxycycline Monohydrate (Doxycycline 100 Mg Tablet) 100 mg PO BID [facility]; Protocol Last Admin: 05/12/22 18:28 Dose: 100 mg Fludrocortisone Acetate (Fludrocortisone 0.1 Mg Tablet) 0.1 mg PO DAILY [facility] Last Admin: 05/12/22 18:29 Dose: 0.1 mg Glucagon (Glucagon 1 Mg/Ml Inj 1 Ml) 1 mg IM ONCE PRN; Protocol PRN Reason: Adult Acute Hypoglycemia Prot. Hydrocortisone (Hydrocortisone 10 Mg Tablet) 40 mg PO QAM [facility] Last Admin: 05/12/22 05:18 Dose: 40 mg Hydrocortisone (Hydrocortisone 10 Mg Tablet) 10 mg PO Q24H [facility] Last Admin: 05/12/22 13:03 Dose: 10 mg Hydroxyzine Pamoate (Hydroxyzine 25 Mg Capsule) 25 mg PO BID PRN PRN Reason: Anxiety Last Admin: 05/04/22 22:03 Dose: 25 mg Dextrose (D5w) 500 mls @ 100 mls/hr IV ONCE PRN; Protocol PRN Reason: Adult Acute Hypoglycemia Prot Insulin Human Lispro (Insulin Lispro 100 Unit/1 Ml) 0 unit SUBCUT TIDWM [facility]; Protocol Last Admin: 05/12/22 18:30 Dose: 6 unit Lactulose (Lactulose Oral Liq 20 Gm/30 Ml Udc) 20 gm PO Q12H [facility] Last Admin: 05/12/22 08:46 Dose: Not Given Lanolin (Lanolin Oint 7 Gm) 1 applic TOPICAL PRN PRN PRN Reason: DRYNESS Last Admin: 05/04/22 22:00 Dose: 1 applic Levothyroxine Sodium ([facility]othyroxine 175 Mcg Tablet) [facility] [place] Admin: 05/12/22 05:17 Dose: 175 mcg Magnesium Lactate (Magnesium Lactate 84 Mg Tablet) 84 mg PO [facility] Last Admin: 05/12/22 05:17 Dose: 84 mg Meclizine HCl (Meclizine 25 Mg Tablet) 25 mg PO TID PRN PRN Reason: DIZZINESS Last Admin: 05/11/22 16:13 Dose: 25 mg Midodrine (Midodrine 5 Mg Tablet) 5 mg PO TID [facility] Last Admin: 05/12/22 15:09 Dose: 5 mg Ondansetron HCl (Ondansetron 2 Mg/Ml Sdv 2 Ml) 4 mg IVP Q6H PRN PRN Reason: NAUSEA AND VOMITING Last Admin: 05/12/22 05:17 Dose: 4 mg Ondansetron HCl (Ondansetron 2 Mg/Ml Sdv 2 Ml) 8 mg IVP Q6H PRN PRN Reason: NAUSEA AND VOMITING Last Admin: 05/06/22 09:06 Dose: 8 mg Pantoprazole Sodium (Pantoprazole Dr 40 Mg Tablet) 40 mg PO BID [facility] Last Admin: 05/12/22 18:29 Dose: 40 mg Polyethylene Glycol (Polyethylene Glycol 3350 Pkt 17 Gm) 17 gm PO DAILY PRN PRN Reason: Constipation Last Admin: 05/09/22 21:30 Dose: 17 gm Pramipexole Dihydrochloride (Pramipexole 0.25 Mg Tablet) 1 mg PO BEDTIME [facility] Last Admin: 05/11/22 20:01 Dose: 1 mg Promethazine HCl (Promethazine 25 Mg/Ml Sdv 1 Ml) 25 mg IM Q6H PRN PRN Reason: NAUSEA Last Admin: 05/06/22 09:58 Dose: 25 mg Sodium Chloride (Saline Nasal [place] 44ml Btl) 1 spray NASAL PRN PRN PRN Reason: DRYNESS Sucralfate (Sucralfate 1 Gm Tablet) 1 gm PO AC&BEDTIME [facility] Last Admin: 05/12/22 18:31 Dose: Not Given Tramadol HCl (Tramadol 50 Mg Tablet) 50 mg PO Q6H PRN PRN Reason: MODERATE PAIN Last Admin: 05/06/22 04:36 Dose: 50 mg Vitals/I&O/Wt Last Vital Signs Temp 98.3 F 05/12/22 20:00 Pulse 69 05/12/22 20:31 Resp 19 H 05/12/22 20:31 BP 131/72 05/12/22 20:00 Pulse Ox 93 05/12/22 20:31 O2 Del Method 05/12/22 20:31 O2 Flow Rate 2 05/11/22 23:00 FiO2 21 05/12/22 20:31 05/12/22 05/12/22 05/12/22 06:59 14:59 22:59 Intake Total 120 / 720 530 / 530 Output Total 800 / 2700 650 / 650 Balance -680 / -1980 530 / 530 -650 / -120 Weight last 48 hrs Weight 155.696 kg Physical Exam Narrative: by her side. Const: COMMON NORMALS: patient oriented x3 and alert GENERAL APPEARANCE: cooperative NUTRITIONAL APPEARANCE: obese morbidly obese ORIENTATION/CONSCIOUSNESS: Yes awake HENMT: COMMON NORMALS: oropharynx normal EXTERNAL AUDITORY CANAL: Abnormal EAC present EAC laterality: right Details: erythema Neck/C-Spine: COMMON NORMALS: no JVD Resp: COMMON NORMALS: normal respiratory effort and clear to auscultation bilaterally AUSCULTATION: clear to auscultation bilaterally Cardio: COMMON NORMALS: no JVD, regular rhythm, S1 normal heart sound present, S2 normal heart sound present and No murmurs present (Cardio) RATE: tachycardic RHYTHM: regular rhythm and abnormal rhythm irregularly irregular HEART SOUNDS: S1 normal heart sound present and S2 normal heart sound present GI: COMMON NORMALS: Normal to inspection, nondistended, normoactive bowel sounds present, Soft to palpation and non-tender PALPATION: Yes Soft to palpation Extremity: GENERAL: Yes edema (2-3+) OTHER: Proximal muscle weakness. Coarse tremors. No rigidity. Neuro: COMMON NORMALS: patient oriented x3 and moves all extremities SENSORIUM/ORIENTATION: Yes alert Skin: OTHER: Still present mild erythema of lower bilateral shins. No weeping. No open wounds. Urinary Catheter Management: [place]: Cath Placed During This Visit: yes Reason for Continuing Indwelling Catheter: Acute Urinary Retention or Obstruction Urinary Catheter Date of Insertion: 05/01/22 Urinary Catheter Time of Insertion: 18:30 Data 05/12/22 04:32 05/12/22 04:32 Micro: Microbiology 05/06/22 15:22 Blood Culture - Final Blood NO GROWTH AFTER 5 DAYS 05/06/22 10:20 Blood Culture - Final Blood NO GROWTH AFTER 5 DAYS A&P Assessment and plan (1) CHF (congestive heart failure): On physical examination still significant edema. Minimal improvement. She is diuresing, is in negative balance. We will request daily weights. Continue IV diuresis at this time. Reviewing her potassium, is still low despite replacement. Additionally low blood pressure this morning. Discussed with her concern for further escalation of current study of diuretic therapy. Continue with current regimen. Reassess intake and output, volume status. Follow-up chemistry requested. Requires monitoring of renal function in the setting of CKD. Treatment made more difficult due to adrenal insufficiency. Fludrocortisone. Discussed with her and her . Qualifiers: Heart failure type: unspecified Heart failure chronicity: acute Qualified Code(s): I50.9 - Heart failure, unspecified (2) Hypotension: Discussed hypotension with cardiology, they request not to reduce diltiazem and try other options. Hypotension despite increasing hydrocortisone dose yesterday. As per discussion with her and cardiology increasing fludrocortisone back to daily unfortunately exposes her to further fluid overload risk. Increasing back up to daily dosing. Monitor closely volume status, electrolytes, sodium, potassium. Continue increased dose of hydrocortisone. (3) Hypokalemia: Follow-up magnesium requested. Requires close monitoring with IV diuresis. Requires close monitoring with IV diuresis. Continue cardiac monitoring (4) Paroxysmal atrial fibrillation with RVR: She tells me per discussion with cardiology who had spoken with Dr. Reyna plan on subsequent visit would include possible AV andrew ablation with pacemaker. Heart rates reviewed, history of heart rates were on elevated side, but today are doing better. Continue Cardizem which was adjusted by cardiology with dose increased to 300 mg. Cardiology will additionally discussed with Dr. Reyna with consideration for additional ablation given very difficult to treat atrial fibrillation with paroxysmal RVR. (5) Adrenal crisis syndrome: Increased dose of hydrocortisone, now continue fludrocortisone to every other day 0.1 mg. Monitor blood pressures. Sodium appreciated, 134, potassium 2.9, bicarb 32. Repeat labs requested. Serum cortisol level reviewed. Decreasing with exogenous steroids. (6) Weakness: Stopped Lyrica Noted today again having coarse tremor. Unclear whether secondary to deconditioning from prolonged hospitalization with CHF exacerbation and other medical conditions. Prefers to return home with therapy. (7) Hypopituitarism: (8) Acute encephalopathy: (9) Nausea and vomiting: Noticed it may be related to doxycycline. Stop doxycycline as cellulitis is improving. Again nausea, dry heaves last night. Maintaining blood pressure. Does not appear to be adrenally insufficient currently. May be similarly related to toxic medication effect. Discussed as above with worsening weakness, tremors, discontinue Lyrica. She does report also history of longstanding vertigo which contributes to her nausea, request for meclizine, requested. Increase Protonix to twice daily. Requested COVID-19 PCR. (10) Acute on chronic diastolic (congestive) heart failure: (11) Atrial fibrillation with RVR: (12) Chronic kidney disease, stage 3a: (13) History of adrenal insufficiency: (14) Anasarca: (15) Aspiration pneumonia: (16) Cellulitis: Mild erythema still persist but may be related to stasis/persistent edema. She noted she is not tolerating doxycycline well. Stop doxycycline. (17) Edema: Qualifiers: Edema type: unspecified Qualified Code(s): R60.9 - Edema, unspecified (18) Otitis externa: Improving. Continue Ciprodex. (19) Coarse tremors: Again recurrence of tremors. As above. 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 Hemoglobin level appreciated, 10.4. Occult blood test does not appear to be collected so far. Continue Protonix, Carafate. Continue anticoagulation. Discussed referral follow-up for consideration of endoscopy after she is out of acute illness. Acute encephalopathy -Resolved Acute hypoxic hypercarbic respiratory failure secondary to diastolic CHF exacerbation: Resolved Acute hypotension -Resolved Intractable nausea and vomiting -Resolved Cellulitis, continue vancomycin, continue meropenem Type 2 diabetes mellitus, continue insulin sliding scale Attestations Medical Necessity Statement*: Continue admission for assessment management of decompensated CHF, electrolyte abnormalities, hypotension, optimization of control of A-fib with RVR in the setting of these comorbidities. Diagnoses CHF (congestive heart failure) I50.9 Heart failure type: unspecified Heart failure chronicity: acute Hypotension I95.9 Hypokalemia E87.6 Paroxysmal atrial fibrillation with RVR I48.0 Adrenal crisis syndrome E27.2 Weakness R53.1 Hypopituitarism E23.0 Acute encephalopathy G93.40 Nausea and vomiting R11.2 Acute on chronic diastolic (congestive) heart failure I50.33 Atrial fibrillation with RVR I48.91 Chronic kidney disease, stage 3a N18.31 History of adrenal insufficiency Z86.39 Anasarca R60.1 Aspiration pneumonia J69.0 Cellulitis L03.90 Edema R60.9 Edema type: unspecified Otitis externa H60.90 Coarse tremors G25.2 RODRIGUE (acute kidney injury) N17.9 Hypothyroid E03.9 Diabetes E11.9 Atrial fibrillation I48.91 Hyperkalemia E87.5 Acute hypercapnic respiratory failure J96.02 Iron deficiency anemia D50.9 GI bleed K92.2
[2022-05-12] MEDS: polyethylene glycol 3350 Pkt 17 gm PO (20:52)
[2022-05-12] MEDS: bumetanide 1 mg Tablet 2 MG PO (20:53)
[2022-05-12] MEDS: pramipexole 0.25 mg Tablet 1 MG PO (20:54)
[2022-05-12 21:18] LABS: Glucose Point of Care 122 mg/dL (70-110)
[2022-05-13] VITALS (9 sets, daily range): BP systolic 100–126; BP diastolic 47–78; PULSE 66–76; RESP 14–19; TEMP 36.4–36.8; O2SAT 91–95
[2022-05-13] MEDS: potassium chloride ER 20 mEq Tablet 40 MEQ PO ×2 (02:13→15:05)
[2022-05-13] MEDS: bumetanide 1 mg Tablet 2 MG PO ×3 (04:05→20:22)
[2022-05-13] MEDS: magnesium lactate 84 mg Tablet PO (05:10)
[2022-05-13] MEDS: hydrocortisone 10 mg Tablet 40 MG PO (05:10)
[2022-05-13] MEDS: levothyroxine 175 mcg Tablet PO (05:11)
[2022-05-13 05:24] LABS: Basophils # 0.1 10^3/uL (0.0-0.1); Basophils % 1.1 %; Eosinophils # 0.4 10^3/uL (0.0-0.8); Hematocrit 35.1 % (37.0-47.0); Hemoglobin 9.7 g/dL (11.5-15.3); Lymphocytes # 2.2 10^3/uL (0.8-4.8); Lymphocytes % 18.1 %; Mean Corpuscular HGB Conc 27.6 g/dL (30.0-36.0); Mean Corpuscular Hemoglobin 19.6 pg (28.0-34.0); Mean Corpuscular Volume 70.9 fl (81-99); Mean Platelet Volume 9.5 fL (7.4-10.4); Monocytes # 1.5 10^3/uL (0.2-0.9); Monocytes % 12.2 %; Nucleated Red Blood Cells % 0 %; Platelet Count 346 10^3/cmm (130-400); Red Blood Count 4.95 10^6/uL (4.1-5.3); Red Cell Distribution Width 20.8 % (12.1-15.1); White Blood Count 12.1 10^3/uL (4.0-10.0)
[2022-05-13 05:45] LABS: Anion Gap 14.5 (5-19); Blood Urea Nitrogen 21 mg/dL (8-23); Calcium 9.2 mg/dL (8.5-10.5); Carbon Dioxide 32 mmol/L (22-29); Chloride 94 mmol/L (98-107); Glomerular Filtration Rate 40.6 mL/min (90-130); Glucose 126 mg/dL (65-115); Osmolality Calculated 289 mOsm/kg (285-295); Potassium 3.5 mmol/L (3.5-5.1); Sodium 137 mmol/L (136-145)
[2022-05-13 06:36] LABS: Glucose Point of Care 118 mg/dL (70-110)
[2022-05-13] MEDS: fludrocortisone 0.1 mg Tablet PO (09:49)
[2022-05-13] MEDS: midodrine 5 mg TABLET PO ×3 (09:49→20:23)
[2022-05-13] MEDS: ciprofloxacin-dexameth Otic Susp 7.5 mL Btl 4 DROP EAR-RIGHT ×2 (09:49→17:27)
[2022-05-13] MEDS: apixaban 5 mg Tablet 2.5 MG PO ×2 (09:49→17:27)
[2022-05-13] MEDS: pantoprazole DR 40 mg Tablet PO ×2 (09:49→17:27)
[2022-05-13] MEDS: dilTIAZem ER (24HR) 300 mg Capsule PO (10:51)
--- NOTE | 2022-05-13 11:18 | PC.SOCIAL ---
IMM Update pg 2 of IMM updated and reviewed w/ patient. Copy provided and Copy in chart dated, and initialed.
[2022-05-13 11:56] LABS: Glucose Point of Care 238 mg/dL (70-110)
[2022-05-13] MEDS: insulin lispro 100 unit/1 mL SUBCUT ×2 (13:20→18:23)
[2022-05-13] MEDS: hydrocortisone 10 mg Tablet PO (13:20)
--- NOTE | 2022-05-13 14:09 | PM.PN ---
Subjective Subjective: She is doing okay today. Nausea has resolved with stopping doxycycline. No vomiting. She is getting ready to work with PT. She walked a good distance yesterday. At rest not requiring oxygen. Her left leg was more erythematous and bothering her today. Tubigrip's were put on, and now the leg is much better Medications: Medication Review Details: Current Medications Albuterol/Ipratropium (Ipratropium-Albuterol 3 Ml Neb) 3 ml INHALATION Q6H.RESP PRN PRN Reason: SHORTNESS OF BREATH Last Admin: 05/10/22 01:19 Dose: 3 ml Alprazolam (Alprazolam 0.5 Mg Tablet) 0.5 mg PO TID PRN PRN Reason: ANXIETY Last Admin: 05/05/22 21:19 Dose: 0.5 mg Apixaban (Apixaban 5 Mg Tablet) 2.5 mg PO BID RAMIRO Last Admin: 05/12/22 18:32 Dose: 2.5 mg Artificial Tears (Artificial Tears Op Soln 15 Ml Btl) 1 drop EYE-BOTH Q4H PRN PRN Reason: DRY EYE(S) Last Admin: 05/07/22 21:14 Dose: 1 drop Bumetanide (Bumetanide 0.25 Mg/Ml Sdv 4 Ml) 1 mg IVP Q8H [facility] Last Admin: 05/12/22 18:07 Dose: 1 mg Capsaicin (Capsaicin 0.025% Cream 60 Gm) 1 applic TOPICAL QID PRN PRN Reason: PAIN Ciprofloxacin/Dexamethasone (Ciprofloxacin-Dexameth Otic Susp 7.5 Ml Btl) 4 drop EAR-RIGHT BID RAMIRO; Protocol Last Admin: 05/12/22 18:31 Dose: 4 drop Dextrose (Dextrose 50% Syringe 50 Ml) 25 ml IVP ONCE PRN; Protocol PRN Reason: hypoglycemia protocol Dextrose (Dextrose 50% Syringe 50 Ml) 50 ml IVP PRN PRN; Protocol PRN Reason: hypoglycemia protocol Diltiazem HCl (Diltiazem Er (24hr) 300 Mg Capsule) 300 mg PO DAILY [facility] Last Admin: 05/12/22 08:45 Dose: 300 mg Doxycycline Monohydrate (Doxycycline 100 Mg Tablet) 100 mg PO BID RAMIRO; Protocol Last Admin: 05/12/22 18:28 Dose: 100 mg Fludrocortisone Acetate (Fludrocortisone 0.1 Mg Tablet) 0.1 mg PO DAILY [facility] Last Admin: 05/12/22 18:29 Dose: 0.1 mg Glucagon (Glucagon 1 Mg/Ml Inj 1 Ml) 1 mg IM ONCE PRN; Protocol PRN Reason: Adult Acute Hypoglycemia Prot. Hydrocortisone (Hydrocortisone 10 Mg Tablet) 40 mg PO QAM [facility] Last Admin: 05/12/22 05:18 Dose: 40 mg Hydrocortisone (Hydrocortisone 10 Mg Tablet) 10 mg PO Q24H [facility] Last Admin: 05/12/22 13:03 Dose: 10 mg Hydroxyzine Pamoate (Hydroxyzine 25 Mg Capsule) 25 mg PO BID PRN PRN Reason: Anxiety Last Admin: 05/04/22 22:03 Dose: 25 mg Dextrose (D5w) 500 mls @ 100 mls/hr IV ONCE PRN; Protocol PRN Reason: Adult Acute Hypoglycemia Prot Insulin Human Lispro (Insulin Lispro 100 Unit/1 Ml) 0 unit SUBCUT TIDWM [facility]; Protocol Last Admin: 05/12/22 18:30 Dose: 6 unit Lactulose (Lactulose Oral Liq 20 Gm/30 Ml Udc) 20 gm PO Q12H [facility] Last Admin: 05/12/22 08:46 Dose: Not Given Lanolin (Lanolin Oint 7 Gm) 1 applic TOPICAL PRN PRN PRN Reason: DRYNESS Last Admin: 05/04/22 22:00 Dose: 1 applic Levothyroxine Sodium (Levothyroxine 175 Mcg Tablet) [facility] Last Admin: 05/12/22 05:17 Dose: 175 mcg Magnesium Lactate (Magnesium Lactate 84 Mg Tablet) 84 mg PO [facility] Last Admin: 05/12/22 05:17 Dose: 84 mg Meclizine HCl (Meclizine 25 Mg Tablet) 25 mg PO TID PRN PRN Reason: DIZZINESS Last Admin: 05/11/22 16:13 Dose: 25 mg Midodrine (Midodrine 5 Mg Tablet) 5 mg PO TID [facility] Last Admin: 05/12/22 15:09 Dose: 5 mg Ondansetron HCl (Ondansetron 2 Mg/Ml Sdv 2 Ml) 4 mg IVP Q6H PRN PRN Reason: NAUSEA AND VOMITING Last Admin: 05/12/22 05:17 Dose: 4 mg Ondansetron HCl (Ondansetron 2 Mg/Ml Sdv 2 Ml) 8 mg IVP Q6H PRN PRN Reason: NAUSEA AND VOMITING Last Admin: 05/06/22 09:06 Dose: 8 mg Pantoprazole Sodium (Pantoprazole Dr 40 Mg Tablet) 40 mg PO BID [facility] Last Admin: 05/12/22 18:29 Dose: 40 mg Polyethylene Glycol (Polyethylene Glycol 3350 Pkt 17 Gm) 17 gm PO DAILY PRN PRN Reason: Constipation Last Admin: 05/09/22 21:30 Dose: 17 gm Pramipexole Dihydrochloride (Pramipexole 0.25 Mg Tablet) 1 mg PO BEDTIME [facility] Last Admin: 05/11/22 20:01 Dose: 1 mg Promethazine HCl (Promethazine 25 Mg/Ml Sdv 1 Ml) 25 mg IM Q6H PRN PRN Reason: NAUSEA Last Admin: 05/06/22 09:58 Dose: 25 mg Sodium Chloride (Saline Nasal Neche 44ml Btl) 1 spray NASAL PRN PRN PRN Reason: DRYNESS Sucralfate (Sucralfate 1 Gm Tablet) 1 gm PO AC&BEDTIME [facility] Last Admin: 05/12/22 18:31 Dose: Not Given Tramadol HCl (Tramadol 50 Mg Tablet) 50 mg PO Q6H PRN PRN Reason: MODERATE PAIN Last Admin: 05/06/22 04:36 Dose: 50 mg Vitals/I&O/Wt Last Vital Signs Temp 98.1 F 05/13/22 11:10 Pulse 76 05/13/22 11:10 Resp 18 05/13/22 11:10 BP 117/72 05/13/22 11:10 Pulse Ox 93 05/13/22 11:10 O2 Del Method 05/13/22 08:49 O2 Flow Rate 2 05/13/22 08:00 FiO2 21 05/12/22 20:31 05/12/22 05/13/22 05/13/22 22:59 06:59 14:59 Intake Total 480 / 1010 620 / 1630 880 / 880 Output Total 1300 / 1300 550 / 1850 700 / 700 Balance -820 / -290 70 / -220 180 / 180 Weight last 48 hrs Weight 155.129 kg Physical Exam Narrative: Sitting up in chair. Const: COMMON NORMALS: patient oriented x3 and alert GENERAL APPEARANCE: cooperative NUTRITIONAL APPEARANCE: obese morbidly obese ORIENTATION/CONSCIOUSNESS: Yes awake HENMT: COMMON NORMALS: oropharynx normal EXTERNAL AUDITORY CANAL: Abnormal EAC present EAC laterality: right Details: erythema Neck/C-Spine: COMMON NORMALS: no JVD Resp: COMMON NORMALS: normal respiratory effort and clear to auscultation bilaterally AUSCULTATION: clear to auscultation bilaterally Cardio: COMMON NORMALS: no JVD, regular rhythm, S1 normal heart sound present, S2 normal heart sound present and No murmurs present (Cardio) RATE: tachycardic RHYTHM: regular rhythm and abnormal rhythm irregularly irregular HEART SOUNDS: S1 normal heart sound present and S2 normal heart sound present GI: COMMON NORMALS: Normal to inspection, nondistended, normoactive bowel sounds present, Soft to palpation and non-tender PALPATION: Yes Soft to palpation Extremity: GENERAL: Yes edema (2-3+) OTHER: Improved proximal muscle weakness. Resolved course tremors. No rigidity. Neuro: COMMON NORMALS: patient oriented x3 and moves all extremities SENSORIUM/ORIENTATION: Yes alert Skin: OTHER: Still present mild erythema of lower bilateral shins. No weeping. No open wounds. Urinary Catheter Management: [place]: Cath Placed During This Visit: yes Reason for Continuing Indwelling Catheter: Accurate Measurement of Urinary Output in Critically Ill Patients Urinary Catheter Date of Insertion: 05/01/22 Urinary Catheter Time of Insertion: 18:30 Data 05/13/22 04:43 05/13/22 04:43 A&P Assessment and plan (1) CHF (congestive heart failure): Slow improvement. In negative balance, but only 570 mL today. Bumetanide dose was escalated to 2 mg every 8 hours. Monitor I&O. Monitor electrolytes, today reviewed, 3.5. Appreciate that she received potassium every 6 hours as ordered by cardiology last dose early this morning. Requesting additional potassium dose. Follow-up potassium, renal function, monitor with escalated IV diuresis. At risk of severe hypokalemia. Reassess intake and output, volume status. Requires monitoring of renal function in the setting of CKD. Treatment made more difficult due to adrenal insufficiency. Fludrocortisone. Cardiology note reviewed. Qualifiers: Heart failure chronicity: acute Heart failure type: unspecified Qualified Code(s): I50.9 - Heart failure, unspecified (2) Hypotension: Discussed hypotension with cardiology, they request not to reduce diltiazem and try other options. Hypotension despite increasing hydrocortisone dose yesterday. As per discussion with her and cardiology increasing fludrocortisone back to daily unfortunately exposes her to further fluid overload risk. Increasing back up to daily dosing. Monitor closely volume status, electrolytes, sodium, potassium. Continue increased dose of hydrocortisone. (3) Hypokalemia: Follow-up magnesium requested. Requires close monitoring with IV diuresis. Requires close monitoring with IV diuresis. Continue cardiac monitoring (4) Paroxysmal atrial fibrillation with RVR: She tells me per discussion with cardiology who had spoken with Dr. Reyna plan on subsequent visit would include possible AV andrew ablation with pacemaker. Heart rates reviewed, history of heart rates were on elevated side, but today are doing better. Continue Cardizem which was adjusted by cardiology with dose increased to 300 mg. Cardiology will additionally discussed with Dr. Reyna with consideration for additional ablation given very difficult to treat atrial fibrillation with paroxysmal RVR. (5) Adrenal crisis syndrome: Increased dose of hydrocortisone, now continue fludrocortisone to every other day 0.1 mg. Monitor blood pressures. Sodium appreciated, 134, potassium 2.9, bicarb 32. Repeat labs requested. Serum cortisol level reviewed. Decreasing with exogenous steroids. (6) Weakness: Stopped Lyrica Noted today again having coarse tremor. Unclear whether secondary to deconditioning from prolonged hospitalization with CHF exacerbation and other medical conditions. Prefers to return home with therapy. (7) Hypopituitarism: (8) Acute encephalopathy: (9) Nausea and vomiting: Noticed it may be related to doxycycline. Resolved with stopping doxycycline. Again nausea, dry heaves last night. Maintaining blood pressure. Does not appear to be adrenally insufficient currently. May be similarly related to toxic medication effect. Discussed as above with worsening weakness, tremors, discontinue Lyrica. She does report also history of longstanding vertigo which contributes to her nausea, request for meclizine, requested. Increase Protonix to twice daily. Requested COVID-19 PCR. (10) Acute on chronic diastolic (congestive) heart failure: (11) Atrial fibrillation with RVR: (12) Chronic kidney disease, stage 3a: (13) History of adrenal insufficiency: (14) Anasarca: (15) Aspiration pneumonia: (16) Cellulitis: With stopping doxycycline nausea and vomiting resolved. Mild erythema with stasis of lower extremities. Tubigrip's are helping. Mild erythema still persist but may be related to stasis/persistent edema. She noted she is not tolerating doxycycline well. Stop doxycycline. (17) Edema: Qualifiers: Edema type: unspecified Qualified Code(s): R60.9 - Edema, unspecified (18) Otitis externa: Improving. Continue Ciprodex. (19) Coarse tremors: Again resolved. Suspect related to Lyrica as resolved with discontinuation of this medication. 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 Hemoglobin level appreciated, 10.4. Occult blood test does not appear to be collected so far. Continue Protonix, Carafate. Continue anticoagulation. Discussed referral follow-up for consideration of endoscopy after she is out of acute illness. Acute encephalopathy -Resolved Acute hypoxic hypercarbic respiratory failure secondary to diastolic CHF exacerbation: Resolved Acute hypotension -Resolved Intractable nausea and vomiting -Resolved Cellulitis, continue vancomycin, continue meropenem Type 2 diabetes mellitus, continue insulin sliding scale Attestations Medical Necessity Statement*: Continue management of decompensated CHF, in the setting of adrenal insufficiency, requirement for steroid and mineralocorticoid, severe hypokalemia requiring replacement, risk of worsening hypokalemia, arrhythmia, risk of renal injury with CKD. Diagnoses CHF (congestive heart failure) I50.9 Heart failure chronicity: acute Heart failure type: unspecified Hypotension I95.9 Hypokalemia E87.6 Paroxysmal atrial fibrillation with RVR I48.0 Adrenal crisis syndrome E27.2 Weakness R53.1 Hypopituitarism E23.0 Acute encephalopathy G93.40 Nausea and vomiting R11.2 Acute on chronic diastolic (congestive) heart failure I50.33 Atrial fibrillation with RVR I48.91 Chronic kidney disease, stage 3a N18.31 History of adrenal insufficiency Z86.39 Anasarca R60.1 Aspiration pneumonia J69.0 Cellulitis L03.90 Edema R60.9 Edema type: unspecified Otitis externa H60.90 Coarse tremors G25.2 RODRIGUE (acute kidney injury) N17.9 Hypothyroid E03.9 Diabetes E11.9 Atrial fibrillation I48.91 Hyperkalemia E87.5 Acute hypercapnic respiratory failure J96.02 Iron deficiency anemia D50.9 GI bleed K92.2
[2022-05-13 17:56] LABS: Glucose Point of Care 181 mg/dL (70-110)
--- NOTE | 2022-05-13 18:58 | P.PN_ITS ---
Subjective Subjective: The patient continues to feel better. Seems to be tolerating the p.o. Bumex so far well. Telemetry shows sinus rhythm. No new complaints. Medications: Medication Review Details: Current Medications Albuterol/Ipratropium (Ipratropium-Albuterol 3 Ml Neb) 3 ml INHALATION Q6H.RESP PRN PRN Reason: SHORTNESS OF BREATH Last Admin: 05/10/22 01:19 Dose: 3 ml Alprazolam (Alprazolam 0.5 Mg Tablet) 0.5 mg PO TID PRN PRN Reason: ANXIETY Last Admin: 05/05/22 21:19 Dose: 0.5 mg Apixaban (Apixaban 5 Mg Tablet) 2.5 mg PO BID [facility] Last Admin: 05/13/22 17:27 Dose: 2.5 mg Artificial Tears (Artificial Tears Op Soln 15 Ml Btl) 1 drop EYE-BOTH Q4H PRN PRN Reason: DRY EYE(S) Last Admin: 05/07/22 21:14 Dose: 1 drop Bumetanide (Bumetanide 1 Mg Tablet) 2 mg PO Q8H [facility] Last Admin: 05/13/22 13:20 Dose: 2 mg Capsaicin (Capsaicin 0.025% Cream 60 Gm) 1 applic TOPICAL QID PRN PRN Reason: PAIN Ciprofloxacin/Dexamethasone (Ciprofloxacin-Dexameth Otic Susp 7.5 Ml Btl) 4 drop EAR-RIGHT BID [facility]; Protocol Last Admin: 05/13/22 17:27 Dose: 4 drop Dextrose (Dextrose 50% Syringe 50 Ml) 25 ml IVP ONCE PRN; Protocol PRN Reason: hypoglycemia protocol Dextrose (Dextrose 50% Syringe 50 Ml) 50 ml IVP PRN PRN; Protocol PRN Reason: hypoglycemia protocol Diltiazem HCl (Diltiazem Er (24hr) 300 Mg Capsule) 300 mg PO DAILY [facility] Last Admin: 05/13/22 10:51 Dose: 300 mg Fludrocortisone Acetate (Fludrocortisone 0.1 Mg Tablet) 0.1 mg PO DAILY [facility] Last Admin: 05/13/22 09:49 Dose: 0.1 mg Glucagon (Glucagon 1 Mg/Ml Inj 1 Ml) 1 mg IM ONCE PRN; Protocol PRN Reason: Adult Acute Hypoglycemia Prot. Hydrocortisone (Hydrocortisone 10 Mg Tablet) 40 mg PO QAM [facility] Last Admin: 05/13/22 05:10 Dose: 40 mg Hydrocortisone (Hydrocortisone 10 Mg Tablet) 10 mg PO Q24H [facility] Last Admin: 05/13/22 13:20 Dose: 10 mg Hydroxyzine Pamoate (Hydroxyzine 25 Mg Capsule) 25 mg PO BID PRN PRN Reason: Anxiety Last Admin: 05/04/22 22:03 Dose: 25 mg Dextrose (D5w) 500 mls @ 100 mls/hr IV ONCE PRN; Protocol PRN Reason: Adult Acute Hypoglycemia Prot Insulin Human Lispro (Insulin Lispro 100 Unit/1 Ml) 0 unit SUBCUT TIDWM [facility]; Protocol Last Admin: 05/13/22 18:23 Dose: 6 unit Lactulose (Lactulose Oral Liq 20 Gm/30 Ml Udc) 20 gm PO Q12H [facility] Last Admin: 05/13/22 10:49 Dose: Not Given Lanolin (Lanolin Oint 7 Gm) 1 applic TOPICAL PRN PRN PRN Reason: DRYNESS Last Admin: 05/04/22 22:00 Dose: 1 applic Levothyroxine Sodium (Levothyroxine 175 Mcg Tablet) [facility] Last Admin: 05/13/22 05:11 Dose: 175 mcg Magnesium Lactate (Magnesium Lactate 84 Mg Tablet) 84 mg PO QAM [facility] Last Admin: 05/13/22 05:10 Dose: 84 mg Meclizine HCl (Meclizine 25 Mg Tablet) 25 mg PO TID PRN PRN Reason: DIZZINESS Last Admin: 05/11/22 16:13 Dose: 25 mg Midodrine (Midodrine 5 Mg Tablet) 5 mg PO TID [facility] Last Admin: 05/13/22 15:05 Dose: 5 mg Ondansetron HCl (Ondansetron 2 Mg/Ml Sdv 2 Ml) 4 mg IVP Q6H PRN PRN Reason: NAUSEA AND VOMITING Last Admin: 05/12/22 05:17 Dose: 4 mg Ondansetron HCl (Ondansetron 2 Mg/Ml Sdv 2 Ml) 8 mg IVP Q6H PRN PRN Reason: NAUSEA AND VOMITING Last Admin: 05/06/22 09:06 Dose: 8 mg Pantoprazole Sodium (Pantoprazole Dr 40 Mg Tablet) 40 mg PO BID [facility] Last Admin: 05/13/22 17:27 Dose: 40 mg Polyethylene Glycol (Polyethylene Glycol 3350 Pkt 17 Gm) 17 gm PO DAILY PRN PRN Reason: Constipation Last Admin: 05/12/22 20:52 Dose: 17 gm Pramipexole Dihydrochloride (Pramipexole 0.25 Mg Tablet) 1 mg PO BEDTIME RAMIRO Last Admin: 05/12/22 20:54 Dose: 1 mg Promethazine HCl (Promethazine 25 Mg/Ml Sdv 1 Ml) 25 mg IM Q6H PRN PRN Reason: NAUSEA Last Admin: 05/06/22 09:58 Dose: 25 mg Sodium Chloride (Saline Nasal [place] 44ml Btl) 1 spray NASAL PRN PRN PRN Reason: DRYNESS Sucralfate (Sucralfate 1 Gm Tablet) 1 gm PO AC&BEDTIME [facility]IRO Last Admin: 05/13/22 17:27 Dose: Not Given Tramadol HCl (Tramadol 50 Mg Tablet) 50 mg PO Q6H PRN PRN Reason: MODERATE PAIN Last Admin: 05/06/22 04:36 Dose: 50 mg Vitals/I&O/Wt Last Vital Signs Temp 98.0 F 05/13/22 16:00 Pulse 66 05/13/22 16:00 Resp 14 05/13/22 16:00 BP 126/77 05/13/22 16:00 Pulse Ox 95 05/13/22 16:00 O2 Del Method 05/13/22 15:45 O2 Flow Rate 2 05/13/22 08:00 FiO2 21 05/12/22 20:31 05/13/22 05/13/22 05/13/22 06:59 14:59 22:59 Intake Total 620 / 1630 880 / 880 Output Total 550 / 1850 1950 / 1950 Balance 70 / -220 -1070 / -1070 Weight last 48 hrs Weight 342 lb Physical Exam Narrative: GENERAL: The patient is alert and oriented times three. Not in any acute distress. Morbidly obese HEENT: No significant pallor, icterus or lymphadenopathy.Oral cavity: There are no mucous membrane lesions. NECK: Trachea appears to be central. No masses noted. No JVD or thyromegaly appreciated. RESPIRATORY: Chest is symmetrical. No intercostals muscle retraction or any accessory muscle activation. There is no chest wall tenderness. Breath sounds are heard bilaterally. Occasional expiratory wheeze and no evidence of any consolidation. BREASTS: Deferred. HEART: The heart sounds are normal. No S3 or S4. No significant murmurs. No pericardial rub ABDOMEN: No vessel pulsations or distention. No tenderness. No organomegaly appreciated. Bowel sounds are normally heard. : Deferred. RECTAL: Deferred. LYMPHATIC: No lymphadenopathy noted in the neck. EXTREMITIES: 1+ edema with slight redness in both lower extremities MUSCULOSKELETAL: No acute joint deformities or swelling SKIN: There are no significant rashes or ecchymosis NEUROPSYCHIATRIC: The patient is alert and oriented x3. Appears to be in a good mood. No tremors or rigidity noted. Urinary Catheter Management: Zurita: Cath Placed During This Visit: yes Reason for Continuing Indwelling Catheter: Accurate Measurement of Urinary Output in Critically Ill Patients Urinary Catheter Date of Insertion: 05/01/22 Urinary Catheter Time of Insertion: 18:30 Data 05/13/22 04:43 05/13/22 04:43 Other Labs: Laboratory Last Values WBC 12.1 10^3/uL (4.0-10.0) H 05/13/22 04:43 RBC 4.95 10^6/uL (4.1-5.3) 05/13/22 04:43 Hgb 9.7 g/dL (11.5-15.3) L 05/13/22 04:43 Hct 35.1 % (37.0-47.0) L 05/13/22 04:43 MCV 70.9 fl (81-99) L 05/13/22 04:43 MCH 19.6 pg (28.0-34.0) L 05/13/22 04:43 MCHC 27.6 g/dL (30.0-36.0) L 05/13/22 04:43 RDW 20.8 % (12.1-15.1) H 05/13/22 04:43 Plt Count 346 10^3/cmm (130-400) 05/13/22 04:43 MPV 9.5 fL (7.4-10.4) 05/13/22 04:43 Neut % (Auto) 63.0 % 05/13/22 04:43 Lymph % (Auto) 18.1 % 05/13/22 04:43 [place] % (Auto) 12.2 % 05/13/22 04:43 Eos % (Auto) 3.0 % 05/13/22 04:43 Baso % (Auto) 1.1 % 05/13/22 04:43 Neut # (Auto) 7.60 10^3/uL (1.8-7.7) 05/13/22 04:43 Lymph # (Auto) 2.2 10^3/uL (0.8-4.8) 05/13/22 04:43 [place] # (Auto) 1.5 10^3/uL (0.2-0.9) H 05/13/22 04:43 Eos # (Auto) 0.4 10^3/uL (0.0-0.8) 05/13/22 04:43 Baso # (Auto) 0.1 10^3/uL (0.0-0.1) 05/13/22 04:43 Nucleated RBC % (auto) 0 % 05/13/22 04:43 Nucleated RBCs # 0.0 /100WBC 05/13/22 04:43 Specimen Type Arterial 05/06/22 13:56 Sample Site Radial, right 05/06/22 13:56 ABG pH 7.33 (7.35-7.45) L 05/06/22 13:56 ABG pCO2 56.2 mmHg (35-45) H 05/06/22 13:56 ABG pO2 81.2 mmHg (80.0-100.0) 05/06/22 13:56 ABG HCO3 29.8 mmol/L (22-26) H 05/06/22 13:56 ABG Base Excess 2.9 mmol/L (-2.0-2.0) H 05/06/22 13:56 Surya Test Pos 05/06/22 13:56 Hematocrit 34.0 % (37-47) L 05/06/22 13:56 O2 Delivery Device Nc 05/06/22 13:56 O2 Liters/Min 4.0 % 05/06/22 13:56 FiO2 36.0 % 05/06/22 13:56 Manager Risk Management ID [email or web address] 05/06/22 13:56 Sodium 137 mmol/L (136-145) 05/13/22 04:43 Potassium 3.5 mmol/L (3.5-5.1) 05/13/22 04:43 Chloride 94 mmol/L (98-107) L 05/13/22 04:43 Carbon Dioxide 32 mmol/L (22-29) H 05/13/22 04:43 Anion Gap 14.5 (5-19) 05/13/22 04:43 BUN 21 mg/dL (8-23) 05/13/22 04:43 Creatinine 1.3 mg/dL (0.5-0.9) H 05/13/22 04:43 GFR Calculation 40.6 mL/min (90-130) L 05/13/22 04:43 Glucose 126 mg/dL (65-115) H 05/13/22 04:43 POC Glucose 181 mg/dL (70-110) H 05/13/22 17:20 Calculated Osmolality 289 mOsm/kg (285-295) 05/13/22 04:43 Lactate 1.0 mmol/L (0.5-2.2) 05/06/22 10:20 Calcium 9.2 mg/dL (8.5-10.5) 05/13/22 04:43 Phosphorus 4.1 mg/dL (2.5-4.5) 05/08/22 02:55 Magnesium 2.0 mg/dL (1.7-2.3) 05/13/22 04:43 Iron 16 ug/dL (37-145) L 05/08/22 02:55 TIBC 312 mcg/dl 05/08/22 02:55 % Saturation 5.1 % (20-50) L 05/08/22 02:55 Unsat Iron Binding 296 ug/dL (112-347) 05/08/22 02:55 Ferritin 29 ng/mL (15-150) 05/08/22 02:55 Total Bilirubin 0.3 mg/dL (0.15-1.2) 05/08/22 02:55 Direct Bilirubin 0.20 mg/dL (0.00-0.30) 05/06/22 10:20 AST 13 U/L (0-32) 05/08/22 02:55 ALT 20 U/L (0-33) 05/08/22 02:55 Alkaline Phosphatase 114 U/L (35-105) H 05/08/22 02:55 C-Reactive Protein 6.0 mg/L (0.0-4.9) H 05/08/22 02:55 NT-Pro-B Natriuret Pep 1187 pg/mL (0-125) H 05/09/22 04:18 Total Protein 5.4 g/dL (6.6-8.7) L 05/08/22 02:55 Albumin 3.6 g/dL (3.5-5.2) 05/08/22 02:55 Globulin 1.8 g/dL (1.3-4.6) 05/08/22 02:55 Procalcitonin 0.04 ng/mL (0-0.5) 05/08/22 02:55 TSH 1.48 uIU/mL (0.27-4.20) 05/06/22 10:20 Random Cortisol 0.69 ug/dL (2.47-19.5) L 05/09/22 04:18 Urine Color Yellow (Yellow) 05/06/22 15:15 Urine Appearance Hazy (CLEAR) A 05/06/22 15:15 Urine pH 5 (5-7) 05/06/22 15:15 Ur Specific Delta 1.025 (1.005-1.030) 05/06/22 15:15 Urine Protein 1+ (Negative) H 05/06/22 15:15 Urine Glucose (UA) 1+ (Normal) H 05/06/22 15:15 Urine Ketones 1+ (Negative) H 05/06/22 15:15 Urine Blood 3+ (Negative) H 05/06/22 15:15 Urine Nitrate Negative (Negative) 05/06/22 15:15 Urine Bilirubin Neg (Negative) 05/06/22 15:15 Urine Urobilinogen 1 mg/dL (Negative) H 05/06/22 15:15 Ur Leukocyte Esterase 2+ (Negative) H 05/06/22 15:15 Urine RBC 25-40 /hpf (0-2) H 05/06/22 15:15 Urine WBC 40-55 /hpf (0-5) H 05/06/22 15:15 Ur Squamous Epith Cells None /hpf (0-5) 05/06/22 15:15 Amorphous Sediment Not Reportable 05/06/22 15:15 Urine Bacteria 1+ /hpf (NONE) H 05/06/22 15:15 Vancomycin Trough 15.9 ug/mL (10-15) H 05/07/22 12:58 Digoxin 0.7 ng/mL (0.6-1.2) 05/06/22 10:20 Coronavirus 229E (PCR) Not detected (NOT DETECT) 05/04/22 20:15 SARS-CoV-2 (PCR) Not detected (NOT DETECT) 05/04/22 20:15 A&P Assessment and plan (1) Hypokalemia: Potassium level is normal now. The current dose of the Bumex and potassium may be continued. (2) Intermittent atrial fibrillation: Patient is staying in the normal sinus rhythm at this time. Will continue on the current medication. We will make arrangements to be seen by Dr. Reyna at the [facility] in [place]. (3) Acute on chronic diastolic (congestive) heart failure: Continue IV Plex. Start giving Bumex p.o. 2 mg every 8 hours. Potassium 40 mg p.o. every 8 hours. Repeat BMP in the morning (4) Steroid dependence: Management as per the primary. (5) Chronic kidney disease, stage 3a: Management as per the primary. Currently the kidney function seems to be stable (6) Cellulitis: The patient is on antibiotics. Clinically seems to be Plan Continue on the current dose of Cardizem at the time of discharge. We will make arrangements for her to be seen by the private mortgage banker safe at [facility] in [place] to consider catheter-based options for atrial fibrillation Attestations Medical Necessity Statement*: Disposition as per the primary Coding Level of Care Code 90509 Diagnoses Hypokalemia E87.6 Intermittent atrial fibrillation I48.0 Acute on chronic diastolic (congestive) heart failure I50.33 Steroid dependence F19.20 Chronic kidney disease, stage 3a N18.31 Cellulitis L03.90
[2022-05-13] MEDS: pramipexole 0.25 mg Tablet 1 MG PO (20:23)
[2022-05-13 22:43] LABS: Glucose Point of Care 148 mg/dL (70-110)
[2022-05-13] MEDS: lactulose oral liq 20 gm/30 mL UDC PO (22:59)
[2022-05-14] VITALS (8 sets, daily range): BP systolic 120–136; BP diastolic 65–78; PULSE 61–68; RESP 13–19; TEMP 36.6–36.9; O2SAT 88–96
[2022-05-14 04:38] LABS: Basophils # 0.1 10^3/uL (0.0-0.1); Basophils % 0.9 %; Eosinophils # 0.4 10^3/uL (0.0-0.8); Eosinophils % 3.1 %; Lymphocytes # 2.4 10^3/uL (0.8-4.8); Lymphocytes % 18.3 %; Mean Corpuscular HGB Conc 27.8 g/dL (30.0-36.0); Mean Corpuscular Hemoglobin 19.8 pg (28.0-34.0); Mean Corpuscular Volume 71.1 fl (81-99); Mean Platelet Volume 9.6 fL (7.4-10.4); Monocytes # 1.6 10^3/uL (0.2-0.9); Monocytes % 12.1 %; Neutrophils # 8.13 10^3/uL (1.8-7.7); Neutrophils % 63.3 %; Nucleated Red Blood Cells % 0.2 %; Platelet Count 334 10^3/cmm (130-400); Red Blood Count 5.06 10^6/uL (4.1-5.3); Red Cell Distribution Width 20.9 % (12.1-15.1); White Blood Count 12.8 10^3/uL (4.0-10.0)
[2022-05-14 05:01] LABS: Anion Gap 13.5 (5-19); Blood Urea Nitrogen 15 mg/dL (8-23); Calcium 9.1 mg/dL (8.5-10.5); Carbon Dioxide 33 mmol/L (22-29); Chloride 88 mmol/L (98-107); Glomerular Filtration Rate 44.5 mL/min (90-130); Glucose 112 mg/dL (65-115); Magnesium 1.8 mg/dL (1.7-2.3); Osmolality Calculated 276 mOsm/kg (285-295); Sodium 132 mmol/L (136-145)
[2022-05-14 05:07] LABS: Potassium 2.5 mmol/L (3.5-5.1)
[2022-05-14] MEDS: potassium chloride ER 20 mEq Tablet 80 MEQ PO (05:57)
[2022-05-14] MEDS: levothyroxine 175 mcg Tablet PO (05:58)
[2022-05-14] MEDS: bumetanide 1 mg Tablet 2 MG PO (05:58)
[2022-05-14] MEDS: magnesium lactate 84 mg Tablet PO (05:59)
[2022-05-14] MEDS: hydrocortisone 10 mg Tablet 40 MG PO (05:59)
[2022-05-14] MEDS: artificial tears Op Soln 15 mL Btl 1 DROP EYE-BOTH (06:16)
[2022-05-14 06:29] LABS: Glucose Point of Care 111 mg/dL (70-110)
[2022-05-14] MEDS: fludrocortisone 0.1 mg Tablet PO (09:15)
[2022-05-14] MEDS: pantoprazole DR 40 mg Tablet PO (09:15)
[2022-05-14] MEDS: midodrine 5 mg TABLET PO (09:15)
[2022-05-14] MEDS: dilTIAZem ER (24HR) 300 mg Capsule PO (09:15)
[2022-05-14] MEDS: ALPRAZolam 0.5 mg Tablet PO (09:15)
[2022-05-14] MEDS: ciprofloxacin-dexameth Otic Susp 7.5 mL Btl 4 DROP EAR-RIGHT (09:16)
[2022-05-14] MEDS: apixaban 5 mg Tablet 2.5 MG PO (09:16)
--- NOTE | 2022-05-14 10:49 | PM.PN ---
Subjective Subjective: The patient feeling much better. Denies any chest pain or chest tightness. No unusual shortness of breath. Vital signs are stable. The potassium is still low at 2.5 Medications: Medication Review Details: Current Medications Albuterol/Ipratropium (Ipratropium-Albuterol 3 Ml Neb) 3 ml INHALATION Q6H.RESP PRN PRN Reason: SHORTNESS OF BREATH Last Admin: 05/10/22 01:19 Dose: 3 ml Alprazolam (Alprazolam 0.5 Mg Tablet) 0.5 mg PO TID PRN PRN Reason: ANXIETY Last Admin: 05/14/22 09:15 Dose: 0.5 mg Apixaban (Apixaban 5 Mg Tablet) 2.5 mg PO BID [facility] Last Admin: 05/14/22 09:16 Dose: 2.5 mg Artificial Tears (Artificial Tears Op Soln 15 Ml Btl) 1 drop EYE-BOTH Q4H PRN PRN Reason: DRY EYE(S) Last Admin: 05/14/22 06:16 Dose: 1 drop Bumetanide (Bumetanide 1 Mg Tablet) 2 mg PO Q8H [facility] Last Admin: 05/14/22 05:58 Dose: 2 mg Capsaicin (Capsaicin 0.025% Cream 60 Gm) 1 applic TOPICAL QID PRN PRN Reason: PAIN Ciprofloxacin/Dexamethasone (Ciprofloxacin-Dexameth Otic Susp 7.5 Ml Btl) 4 drop EAR-RIGHT BID [facility]; Protocol Last Admin: 05/14/22 09:16 Dose: 4 drop Dextrose (Dextrose 50% Syringe 50 Ml) 25 ml IVP ONCE PRN; Protocol PRN Reason: hypoglycemia protocol Dextrose (Dextrose 50% Syringe 50 Ml) 50 ml IVP PRN PRN; Protocol PRN Reason: hypoglycemia protocol Diltiazem HCl (Diltiazem Er (24hr) 300 Mg Capsule) 300 mg PO DAILY [facility] Last Admin: 05/14/22 09:15 Dose: 300 mg Fludrocortisone Acetate (Fludrocortisone 0.1 Mg Tablet) 0.1 mg PO DAILY [facility] Last Admin: 05/14/22 09:15 Dose: 0.1 mg Glucagon (Glucagon 1 Mg/Ml Inj 1 Ml) 1 mg IM ONCE PRN; Protocol PRN Reason: Adult Acute Hypoglycemia Prot. Hydrocortisone (Hydrocortisone 10 Mg Tablet) [facility] Admin: 05/14/22 05:59 Dose: 40 mg Hydrocortisone (Hydrocortisone 10 Mg Tablet) 10 mg PO Q24H [facility] Last Admin: 05/13/22 13:20 Dose: 10 mg Hydroxyzine Pamoate (Hydroxyzine 25 Mg Capsule) 25 mg PO BID PRN PRN Reason: Anxiety Last Admin: 05/04/22 22:03 Dose: 25 mg Dextrose (D5w) 500 mls @ 100 mls/hr IV ONCE PRN; Protocol PRN Reason: Adult Acute Hypoglycemia Prot Insulin Human Lispro (Insulin Lispro 100 Unit/1 Ml) 0 unit SUBCUT TIDWM [facility]; Protocol Last Admin: 05/14/22 07:49 Dose: Not Given Lactulose (Lactulose Oral Liq 20 Gm/30 Ml Udc) 20 gm PO Q12H [facility] Last Admin: 05/13/22 22:59 Dose: 20 gm Lanolin (Lanolin Oint 7 Gm) 1 applic TOPICAL PRN PRN PRN Reason: DRYNESS Last Admin: 05/04/22 22:00 Dose: 1 applic Levothyroxine Sodium (Levothyroxine 175 Mcg Tablet) [facility] [place] Last Admin: 05/14/22 05:58 Dose: 175 mcg Magnesium Lactate (Magnesium Lactate 84 Mg Tablet) 84 mg PO QAM [facility] Last Admin: 05/14/22 05:59 Dose: 84 mg Meclizine HCl (Meclizine 25 Mg Tablet) 25 mg PO TID PRN PRN Reason: DIZZINESS Last Admin: 05/11/22 16:13 Dose: 25 mg Midodrine (Midodrine 5 Mg Tablet) 5 mg PO TID [facility] Last Admin: 05/14/22 09:15 Dose: 5 mg Ondansetron HCl (Ondansetron 2 Mg/Ml Sdv 2 Ml) 4 mg IVP Q6H PRN PRN Reason: NAUSEA AND VOMITING Last Admin: 05/12/22 05:17 Dose: 4 mg Ondansetron HCl (Ondansetron 2 Mg/Ml Sdv 2 Ml) 8 mg IVP Q6H PRN PRN Reason: NAUSEA AND VOMITING Last Admin: 05/06/22 09:06 Dose: 8 mg Pantoprazole Sodium (Pantoprazole Dr 40 Mg Tablet) 40 mg PO BID [facility] Last Admin: 05/14/22 09:15 Dose: 40 mg Polyethylene Glycol (Polyethylene Glycol 3350 Pkt 17 Gm) 17 gm PO DAILY PRN PRN Reason: Constipation Last Admin: 05/12/22 20:52 Dose: 17 gm Pramipexole Dihydrochloride (Pramipexole 0.25 Mg Tablet) 1 mg PO BEDTIME RAMIRO Last Admin: 05/13/22 20:23 Dose: 1 mg Promethazine HCl (Promethazine 25 Mg/Ml Sdv 1 Ml) 25 mg IM Q6H PRN PRN Reason: NAUSEA Last Admin: 05/06/22 09:58 Dose: 25 mg Sodium Chloride (Saline Nasal [place] 44ml Btl) 1 spray NASAL PRN PRN PRN Reason: DRYNESS Sucralfate (Sucralfate 1 Gm Tablet) 1 gm PO AC&BEDTIME RAMIRO Last Admin: 05/14/22 06:01 Dose: Not Given Tramadol HCl (Tramadol 50 Mg Tablet) 50 mg PO Q6H PRN PRN Reason: MODERATE PAIN Last Admin: 05/06/22 04:36 Dose: 50 mg Vitals/I&O/Wt Last Vital Signs Temp 98.0 F 05/14/22 07:02 Pulse 68 05/14/22 07:30 Resp 18 05/14/22 07:30 BP 129/78 05/14/22 07:02 Pulse Ox 92 05/14/22 07:30 O2 Del Method 05/14/22 07:30 O2 Flow Rate 2 05/14/22 08:00 FiO2 21 05/12/22 20:31 05/13/22 05/14/22 05/14/22 22:59 06:59 14:59 Intake Total 560 / 560 Output Total 700 / 2650 750 / 3400 Balance -700 / -1770 -750 / -2520 560 / 560 Weight last 48 hrs Weight 342 lb Physical Exam Narrative: GENERAL: The patient is alert and oriented times three. Not in any acute distress. Morbidly obese HEENT: No significant pallor, icterus or lymphadenopathy.Oral cavity: There are no mucous membrane lesions. NECK: Trachea appears to be central. No masses noted. No JVD or thyromegaly appreciated. RESPIRATORY: Chest is symmetrical. No intercostals muscle retraction or any accessory muscle activation. There is no chest wall tenderness. Breath sounds are heard bilaterally. Occasional expiratory wheeze and no evidence of any consolidation. BREASTS: Deferred. HEART: The heart sounds are normal. No S3 or S4. No significant murmurs. No pericardial rub ABDOMEN: No vessel pulsations or distention. No tenderness. No organomegaly appreciated. Bowel sounds are normally heard. : Deferred. RECTAL: Deferred. LYMPHATIC: No lymphadenopathy noted in the neck. EXTREMITIES: 1+ edema with slight redness in both lower extremities MUSCULOSKELETAL: No acute joint deformities or swelling SKIN: There are no significant rashes or ecchymosis NEUROPSYCHIATRIC: The patient is alert and oriented x3. Appears to be in a good mood. No tremors or rigidity noted. Urinary Catheter Management: Zurita: Cath Placed During This Visit: yes Reason for Continuing Indwelling Catheter: Accurate Measurement of Urinary Output in Critically Ill Patients Urinary Catheter Date of Insertion: 05/01/22 Urinary Catheter Time of Insertion: 18:30 Data 05/14/22 03:45 05/14/22 03:45 Other Labs: Laboratory Last Values WBC 12.8 10^3/uL (4.0-10.0) H 05/14/22 03:45 RBC 5.06 10^6/uL (4.1-5.3) 05/14/22 03:45 Hgb 10.0 g/dL (11.5-15.3) L 05/14/22 03:45 Hct 36.0 % (37.0-47.0) L 05/14/22 03:45 MCV 71.1 fl (81-99) L 05/14/22 03:45 MCH 19.8 pg (28.0-34.0) L 05/14/22 03:45 MCHC 27.8 g/dL (30.0-36.0) L 05/14/22 03:45 RDW 20.9 % (12.1-15.1) H 05/14/22 03:45 Plt Count 334 10^3/cmm (130-400) 05/14/22 03:45 MPV 9.6 fL (7.4-10.4) 05/14/22 03:45 Neut % (Auto) 63.3 % 05/14/22 03:45 Lymph % (Auto) 18.3 % 05/14/22 03:45 [place] % (Auto) 12.1 % 05/14/22 03:45 Eos % (Auto) 3.1 % 05/14/22 03:45 Baso % (Auto) 0.9 % 05/14/22 03:45 Neut # (Auto) 8.13 10^3/uL (1.8-7.7) H 05/14/22 03:45 Lymph # (Auto) 2.4 10^3/uL (0.8-4.8) 05/14/22 03:45 [place] # (Auto) 1.6 10^3/uL (0.2-0.9) H 05/14/22 03:45 Eos # (Auto) 0.4 10^3/uL (0.0-0.8) 05/14/22 03:45 Baso # (Auto) 0.1 10^3/uL (0.0-0.1) 05/14/22 03:45 Nucleated RBC % (auto) 0.2 % 05/14/22 03:45 Nucleated RBCs # 0.0 /100WBC 05/14/22 03:45 Specimen Type Arterial 05/06/22 13:56 Sample Site Radial, right 05/06/22 13:56 ABG pH 7.33 (7.35-7.45) L 05/06/22 13:56 ABG pCO2 56.2 mmHg (35-45) H 05/06/22 13:56 ABG pO2 81.2 mmHg (80.0-100.0) 05/06/22 13:56 ABG HCO3 29.8 mmol/L (22-26) H 05/06/22 13:56 ABG Base Excess 2.9 mmol/L (-2.0-2.0) H 05/06/22 13:56 Surya Test Pos 05/06/22 13:56 Hematocrit 34.0 % (37-47) L 05/06/22 13:56 O2 Delivery Device Nc 05/06/22 13:56 O2 Liters/Min 4.0 % 05/06/22 13:56 FiO2 36.0 % 05/06/22 13:56 Making Machine Operator ID [place]ro 05/06/22 13:56 Sodium 132 mmol/L (136-145) L 05/14/22 03:45 Potassium 2.5 mmol/L (3.5-5.1) L* D 05/14/22 03:45 Chloride 88 mmol/L (98-107) L 05/14/22 03:45 Carbon Dioxide 33 mmol/L (22-29) H 05/14/22 03:45 Anion Gap 13.5 (5-19) 05/14/22 03:45 BUN 15 mg/dL (8-23) 05/14/22 03:45 Creatinine 1.2 mg/dL (0.5-0.9) H 05/14/22 03:45 GFR Calculation 44.5 mL/min (90-130) L 05/14/22 03:45 Glucose 112 mg/dL (65-115) 05/14/22 03:45 POC Glucose 111 mg/dL (70-110) H 05/14/22 06:18 Calculated Osmolality 276 mOsm/kg (285-295) L 05/14/22 03:45 Lactate 1.0 mmol/L (0.5-2.2) 05/06/22 10:20 Calcium 9.1 mg/dL (8.5-10.5) 05/14/22 03:45 Phosphorus 4.1 mg/dL (2.5-4.5) 05/08/22 02:55 Magnesium 1.8 mg/dL (1.7-2.3) 05/14/22 03:45 Iron 16 ug/dL (37-145) L 05/08/22 02:55 TIBC 312 mcg/dl 05/08/22 02:55 % Saturation 5.1 % (20-50) L 05/08/22 02:55 Unsat Iron Binding 296 ug/dL (112-347) 05/08/22 02:55 Ferritin 29 ng/mL (15-150) 05/08/22 02:55 Total Bilirubin 0.3 mg/dL (0.15-1.2) 05/08/22 02:55 Direct Bilirubin 0.20 mg/dL (0.00-0.30) 05/06/22 10:20 AST 13 U/L (0-32) 05/08/22 02:55 ALT 20 U/L (0-33) 05/08/22 02:55 Alkaline Phosphatase 114 U/L (35-105) H 05/08/22 02:55 C-Reactive Protein 6.0 mg/L (0.0-4.9) H 05/08/22 02:55 NT-Pro-B Natriuret Pep 1187 pg/mL (0-125) H 05/09/22 04:18 Total Protein 5.4 g/dL (6.6-8.7) L 05/08/22 02:55 Albumin 3.6 g/dL (3.5-5.2) 05/08/22 02:55 Globulin 1.8 g/dL (1.3-4.6) 05/08/22 02:55 Procalcitonin 0.04 ng/mL (0-0.5) 05/08/22 02:55 TSH 1.48 uIU/mL (0.27-4.20) 05/06/22 10:20 Random Cortisol 0.69 ug/dL (2.47-19.5) L 05/09/22 04:18 Urine Color Yellow (Yellow) 05/06/22 15:15 Urine Appearance Hazy (CLEAR) A 05/06/22 15:15 Urine pH 5 (5-7) 05/06/22 15:15 Ur Specific [place] 1.025 (1.005-1.030) 05/06/22 15:15 Urine Protein 1+ (Negative) H 05/06/22 15:15 Urine Glucose (UA) 1+ (Normal) H 05/06/22 15:15 Urine Ketones 1+ (Negative) H 05/06/22 15:15 Urine Blood 3+ (Negative) H 05/06/22 15:15 Urine Nitrate Negative (Negative) 05/06/22 15:15 Urine Bilirubin Neg (Negative) 05/06/22 15:15 Urine Urobilinogen 1 mg/dL (Negative) H 05/06/22 15:15 Ur Leukocyte Esterase 2+ (Negative) H 05/06/22 15:15 Urine RBC 25-40 /hpf (0-2) H 05/06/22 15:15 Urine WBC 40-55 /hpf (0-5) H 05/06/22 15:15 Ur Squamous Epith Cells None /hpf (0-5) 05/06/22 15:15 Amorphous Sediment Not Reportable 05/06/22 15:15 Urine Bacteria 1+ /hpf (NONE) H 05/06/22 15:15 Vancomycin Trough 15.9 ug/mL (10-15) H 05/07/22 12:58 Digoxin 0.7 ng/mL (0.6-1.2) 05/06/22 10:20 Coronavirus 229E (PCR) Not detected (NOT DETECT) 05/04/22 20:15 SARS-CoV-2 (PCR) Not detected (NOT DETECT) 05/04/22 20:15 A&P Assessment and plan (1) Hypokalemia: Today's potassium was 2.5. Needs potassium supplement (2) Intermittent atrial fibrillation: Patient is staying in the normal sinus rhythm at this time. Will continue on the current medication. I contacted Dr. Reyna yesterday. Patient will be seen by Dr. Reyna as an outpatient, once she is discharged (3) Acute on chronic diastolic (congestive) heart failure: Heart failure seems to be fairly compensated. May continue on the current measures. (4) Steroid dependence: Management as per the primary. (5) Chronic kidney disease, stage 3a: Management as per the primary. Currently the kidney function seems to be stable (6) Cellulitis: Clinically improving Plan May continue on the current dose of the Cardizem. Attestations Medical Necessity Statement*: Deferred to the primary Coding Level of Care Code 43424 Diagnoses Hypokalemia E87.6 Intermittent atrial fibrillation I48.0 Acute on chronic diastolic (congestive) heart failure I50.33 Steroid dependence F19.20 Chronic kidney disease, stage 3a N18.31 Cellulitis L03.90
[2022-05-14 12:03] LABS: Glucose Point of Care 170 mg/dL (70-110)
[2022-05-14] MEDS: insulin lispro 100 unit/1 mL SUBCUT (12:31)
[2022-05-14] MEDS: hydrocortisone 10 mg Tablet PO (12:31)
--- NOTE | 2022-05-14 14:03 | PC.NURSE ---
Discharge Note Patient discharged to home via private vehicle accompanied by . Discharge instructions reviewed with patient and/or litigation claim representative. Mobile pharmacy medications and/or prescriptions provided. Belongings/home medications returned.
--- NOTE | 2022-05-14 23:25 | P.DS_ITS ---
Discharge Providers Date of Admission: 05/02/22 15:46 Date of Discharge: May 14, 2022 Attending Provider at Admission: Eddie Glover MD Attending Provider at Discharge: Jarvis Cormier Primary Care Provider: Piedad Sandhu MD Diagnoses at Discharge Discharge Diagnosis (1) Hypokalemia: Status: Acute (2) Intermittent atrial fibrillation: Status: Acute (3) Acute on chronic diastolic (congestive) heart failure: Status: Acute (4) Steroid dependence: Status: Chronic (5) Chronic kidney disease, stage 3a: Status: Acute (6) Cellulitis: Status: Acute Reason for Visit Reason for Visit: TREMORS; WEAKNESS Hospital Course Hospital Course Pleasant 71-year-old lady with history of CHF, CAD, HTN, hypothyroidism, KP, pulmonary hypertension, was admitted due to generalized weakness, coarse tremors, with acute kidney injury, creatinine up to 1.9, generalized weakness and tremors thought to be possibly related to toxic effect of her medications, suspected due to Lyrica, possibly also pramipexole, although symptoms eventually improved after discontinuation of Lyrica. If returning pramipexole discontinuation may be considered. During hospitalization treated also for acute congestive heart failure, with IV diuresis, complicated also by lower extremity cellulitis superimposed on stasis dermatitis. Additionally with difficult to control atrial fibrillation with RVR with past history of ablation, for about 2 months doing well with Cardizem, however, during hospitalization heart rates in the 140s, complicated by hypotension, RODRIGUE on CKD. During hospitalization found to be also an adrenal crisis, received hydrocortisone IV, started on hydrocortisone p.o., cortisol, midodrine with improvement in blood pressures. With treatment of CHF exacerbation, cellulitis, heart rates gradually came under control with cardiology consultation with up titration of Cardizem. Amiodarone was transiently considered, but she has a history of possible adverse effects and so was not used. Creatinine gradually improved, and with CKD remained elevated 1.3-1.7, but otherwise renal function allow for diuresis. Diuresis made difficult by hypotension, suboptimal renal function, but gradually volume status optimized. Cellulitis resolved. Cardiology discussed with EP for follow-up for her within the next week for further assessment for possible AV andrew ablation and pacemaker. During ambulation additionally treated for otitis externa of the right ear with Ciprodex drops. Additionally started on Cipro drops for conjunctivitis of the left eye with thick discharge, mild conjunctival injection. Her strength and function gradually improved with withholding Lyrica, with improving volume status, with physical therapy. At discharge she continues on hydrocortisone slow taper, fludrocortisone transiently was attempted to be decreased to every other day, but had to be increased again due to hypotension episodes. Due to soft blood pressures, he is not continued. Spironolactone is continued at lower dose. 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 During hospitalization had severe hypokalemia requiring multiple replacements. She is discharged with potassium supplementation, with home health with request for potassium assessment 3 times weekly as well as potassium with her appointments. Please follow-up also with regards to iron deficiency anemia. Please follow-up blood counts. Once her condition returns to baseline consider further endoscopic evaluation. Physical Exam Narrative: Sitting up in chair. Const: COMMON NORMALS: patient oriented x3 and alert GENERAL APPEARANCE: cooperative NUTRITIONAL APPEARANCE: obese morbidly obese ORIENTATION/CONSCIOUSNESS: Yes awake HENMT: COMMON NORMALS: oropharynx normal EXTERNAL AUDITORY CANAL: Abnormal EAC present EAC laterality: right Details: erythema Neck/C-Spine: COMMON NORMALS: no JVD Resp: COMMON NORMALS: normal respiratory effort and clear to auscultation bilaterally AUSCULTATION: clear to auscultation bilaterally Cardio: COMMON NORMALS: no JVD, regular rhythm, S1 normal heart sound present, S2 normal heart sound present and No murmurs present (Cardio) RATE: tachycardic RHYTHM: regular rhythm and abnormal rhythm irregularly irregular HEART SOUNDS: S1 normal heart sound present and S2 normal heart sound present GI: COMMON NORMALS: Normal to inspection, nondistended, normoactive bowel sounds present, Soft to palpation and non-tender PALPATION: Yes Soft to palpation Extremity: GENERAL: Yes edema (2-3+) OTHER: Improved proximal muscle weakness. Resolved course tremors. No rigidity. Neuro: COMMON NORMALS: patient oriented x3 and moves all extremities SENSORIUM/ORIENTATION: Yes alert Skin: OTHER: Still present mild erythema of lower bilateral shins. No weeping. No open wounds. Urinary Catheter Management: [place]: Cath Placed During This Visit: yes, but has since been removed by the nurse Reason for Continuing Indwelling Catheter: Decision to DC Catheter Urinary Catheter Date of Insertion: 05/01/22 Urinary Catheter Time of Insertion: 18:30 Date Urinary Catheter Removed: 05/14/22 Time Urinary Catheter Discontinued: 13:00 Discharge Data Studies Completed and Pending Completed Studies During Hospitalization Category Date Time Status CT head wo con* [id number] Stat Cat Scan 05/01/22 20:54 Completed CXRP [XR chest 1V portable [id number]] Stat Exams 05/02/22 15:24 Completed XR abdomen 1V* [id number] Stat Exams 05/06/22 10:00 Completed XR chest 1V portable [id number] Routine Exams 05/06/22 09:53 Completed XR chest 1V portable [id number] Stat Exams 05/01/22 20:54 Completed US gall bladder [id number] Routine Ultrasound 05/06/22 12:53 Completed US renal BI* [id number] Routine Ultrasound 05/02/22 10:52 Completed Radiology Impressions Head CT 05/01/22 20:54 IMPRESSION: 1. Negative for intracranial hemorrhage. 2. Mild diffuse white matter disease likely reflecting chronic microvascular ischemic changes. 3. Left aspect of the sella again demonstrates a poorly visualized 2.4 cm soft tissue density, prior history indicates past history of transsphenoidal pituitary macroadenoma surgery. 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 Renal Ultrasound 05/02/22 10:52 IMPRESSION: 1. Technically very limited evaluation of the kidneys. 2. No hydronephrosis. 3. Renal mass would be difficult to exclude. Chest X-Ray 05/06/22 09:53 IMPRESSION: No acute cardiopulmonary abnormality. Abdomen X-Ray 05/06/22 10:00 IMPRESSION: Paucity of bowel gas in the upper abdomen. Gallbladder Ultrasound 05/06/22 12:53 IMPRESSION: 1. Extremely limited and suboptimal evaluation of the RIGHT upper quadrant due to body habitus. 2. Cholelithiasis without evidence for acute cholecystitis. 3. Hepatomegaly with severe hepatic steatosis. Laboratory Results WBC 12.8 10^3/uL (4.0-10.0) H 05/14/22 03:45 RBC 5.06 10^6/uL (4.1-5.3) 05/14/22 03:45 Hgb 10.0 g/dL (11.5-15.3) L 05/14/22 03:45 Hct 36.0 % (37.0-47.0) L 05/14/22 03:45 MCV 71.1 fl (81-99) L 05/14/22 03:45 MCH 19.8 pg (28.0-34.0) L 05/14/22 03:45 MCHC 27.8 g/dL (30.0-36.0) L 05/14/22 03:45 RDW 20.9 % (12.1-15.1) H 05/14/22 03:45 Plt Count 334 10^3/cmm (130-400) 05/14/22 03:45 MPV 9.6 fL (7.4-10.4) 05/14/22 03:45 Neut % (Auto) 63.3 % 05/14/22 03:45 Lymph % (Auto) 18.3 % 05/14/22 03:45 Keith % (Auto) 12.1 % 05/14/22 03:45 Eos % (Auto) 3.1 % 05/14/22 03:45 Baso % (Auto) 0.9 % 05/14/22 03:45 Neut # (Auto) 8.13 10^3/uL (1.8-7.7) H 05/14/22 03:45 Lymph # (Auto) 2.4 10^3/uL (0.8-4.8) 05/14/22 03:45 Keith # (Auto) 1.6 10^3/uL (0.2-0.9) H 05/14/22 03:45 Eos # (Auto) 0.4 10^3/uL (0.0-0.8) 05/14/22 03:45 Baso # (Auto) 0.1 10^3/uL (0.0-0.1) 05/14/22 03:45 Nucleated RBC % (auto) 0.2 % 05/14/22 03:45 Nucleated RBCs # 0.0 /100WBC 05/14/22 03:45 Specimen Type Arterial 05/06/22 13:56 Sample Site Radial, right 05/06/22 13:56 ABG pH 7.33 (7.35-7.45) L 05/06/22 13:56 ABG pCO2 56.2 mmHg (35-45) H 05/06/22 13:56 ABG pO2 81.2 mmHg (80.0-100.0) 05/06/22 13:56 ABG HCO3 29.8 mmol/L (22-26) H 05/06/22 13:56 ABG Base Excess 2.9 mmol/L (-2.0-2.0) H 05/06/22 13:56 Surya Test Pos 05/06/22 13:56 Hematocrit 34.0 % (37-47) L 05/06/22 13:56 O2 Delivery Device Nc 05/06/22 13:56 O2 Liters/Min 4.0 % 05/06/22 13:56 FiO2 36.0 % 05/06/22 13:56 Manager Patient ID Monro 05/06/22 13:56 Sodium 132 mmol/L (136-145) L 05/14/22 03:45 Potassium 2.5 mmol/L (3.5-5.1) L* D 05/14/22 03:45 Chloride 88 mmol/L (98-107) L 05/14/22 03:45 Carbon Dioxide 33 mmol/L (22-29) H 05/14/22 03:45 Anion Gap 13.5 (5-19) 05/14/22 03:45 BUN 15 mg/dL (8-23) 05/14/22 03:45 Creatinine 1.2 mg/dL (0.5-0.9) H 05/14/22 03:45 GFR Calculation 44.5 mL/min (90-130) L 05/14/22 03:45 Glucose 112 mg/dL (65-115) 05/14/22 03:45 POC Glucose 170 mg/dL (70-110) H 05/14/22 12:00 Calculated Osmolality 276 mOsm/kg (285-295) L 05/14/22 03:45 Lactate 1.0 mmol/L (0.5-2.2) 05/06/22 10:20 Calcium 9.1 mg/dL (8.5-10.5) 05/14/22 03:45 Phosphorus 4.1 mg/dL (2.5-4.5) 05/08/22 02:55 Magnesium 1.8 mg/dL (1.7-2.3) 05/14/22 03:45 Iron 16 ug/dL (37-145) L 05/08/22 02:55 TIBC 312 mcg/dl 05/08/22 02:55 % Saturation 5.1 % (20-50) L 05/08/22 02:55 Unsat Iron Binding 296 ug/dL (112-347) 05/08/22 02:55 Ferritin 29 ng/mL (15-150) 05/08/22 02:55 Total Bilirubin 0.3 mg/dL (0.15-1.2) 05/08/22 02:55 Direct Bilirubin 0.20 mg/dL (0.00-0.30) 05/06/22 10:20 AST 13 U/L (0-32) 05/08/22 02:55 ALT 20 U/L (0-33) 05/08/22 02:55 Alkaline Phosphatase 114 U/L (35-105) H 05/08/22 02:55 C-Reactive Protein 6.0 mg/L (0.0-4.9) H 05/08/22 02:55 NT-Pro-B Natriuret Pep 1187 pg/mL (0-125) H 05/09/22 04:18 Total Protein 5.4 g/dL (6.6-8.7) L 05/08/22 02:55 Albumin 3.6 g/dL (3.5-5.2) 05/08/22 02:55 Globulin 1.8 g/dL (1.3-4.6) 05/08/22 02:55 Procalcitonin 0.04 ng/mL (0-0.5) 05/08/22 02:55 TSH 1.48 uIU/mL (0.27-4.20) 05/06/22 10:20 Random Cortisol 0.69 ug/dL (2.47-19.5) L 05/09/22 04:18 Urine Color Yellow (Yellow) 05/06/22 15:15 Urine Appearance Hazy (CLEAR) A 05/06/22 15:15 Urine pH 5 (5-7) 05/06/22 15:15 Ur Specific [place] 1.025 (1.005-1.030) 05/06/22 15:15 Urine Protein 1+ (Negative) H 05/06/22 15:15 Urine Glucose (UA) 1+ (Normal) H 05/06/22 15:15 Urine Ketones 1+ (Negative) H 05/06/22 15:15 Urine Blood 3+ (Negative) H 05/06/22 15:15 Urine Nitrate Negative (Negative) 05/06/22 15:15 Urine Bilirubin Neg (Negative) 05/06/22 15:15 Urine Urobilinogen 1 mg/dL (Negative) H 05/06/22 15:15 Ur Leukocyte Esterase 2+ (Negative) H 05/06/22 15:15 Urine RBC 25-40 /hpf (0-2) H 05/06/22 15:15 Urine WBC 40-55 /hpf (0-5) H 05/06/22 15:15 Ur Squamous Epith Cells None /hpf (0-5) 05/06/22 15:15 Amorphous Sediment Not Reportable 05/06/22 15:15 Urine Bacteria 1+ /hpf (NONE) H 05/06/22 15:15 Vancomycin Trough 15.9 ug/mL (10-15) H 05/07/22 12:58 Digoxin 0.7 ng/mL (0.6-1.2) 05/06/22 10:20 Coronavirus 229E (PCR) Not detected (NOT DETECT) 05/04/22 20:15 SARS-CoV-2 (PCR) Not detected (NOT DETECT) 05/04/22 20:15 Vitals Last Vital Signs Temp 98.1 F 05/14/22 14:04 Pulse 61 05/14/22 14:04 Resp 18 05/14/22 14:04 BP 123/77 05/14/22 14:04 Pulse Ox 91 05/14/22 14:04 O2 Del Method 05/14/22 07:30 O2 Flow Rate 2 05/14/22 13:00 FiO2 21 05/12/22 20:31 Discharge Plan Discharge Patient Disposition: Home Health Service Condition: Stable Prescriptions: New sucralfate 1 gram Tablet 1 g PO AC&BEDTIME Qty: 42 0RF midodrine 5 mg Tablet 5 mg PO TID Qty: 90 0RF diltiazem HCl 300 mg Capsule,Extended Release 24hr 300 mg PO DAILY Qty: 90 0RF hydrocortisone 10 mg Tablet 40 mg PO QAM Qty: 30 3RF Rx Instructions: 4 tabs in the morning for 2 days, then 2 tabs each morning for 2 days, then 1 tab each morning fludrocortisone 0.1 mg Tablet 0.1 mg PO DAILY Qty: 90 0RF ciprofloxacin HCl 0.3 % ointment 1 applic ophthalmic (eye) BID 5 Days Qty: 3.5 0RF Rx Instructions: start on day 3 of therapy hydrocortisone 5 mg tablet 5 mg PO Q24H Qty: 30 3RF Rx Instructions: 2 tab in the afternoon for 2 days, then continue 1 tab for 2 days, then half tab. Klor-Con M20 20 mEq tablet,ER particles/crystals 80 meq PO DAILY Qty: 120 0RF Continued epinephrine [EpiPen 2-Nabeel] 0.3 mg/0.3 mL auto-injector 0.3 mg IM Q10M PRN (Reason: anaphylaxis) Qty: 2 3RF Rx Instructions: for 3 doses levothyroxine 175 mcg tablet 175 mcg PO QAM 90 Days Qty: 90 1RF polyethylene glycol 3350 [Miralax] 17 gram/dose Powder 17 g PO DAILY PRN (Reason: Constipation) hydroxyzine pamoate 25 mg capsule 25 mg PO BID PRN (Reason: Anxiety) magnesium L-lactate [Magtab] 84 mg tablet extended release 84 mg PO QAM pramipexole [Mirapex] 0.5 mg tablet 1 mg PO BEDTIME pantoprazole [Protonix] 40 mg tablet,delayed release (DR/EC) 40 mg PO BEDTIME Jardiance 10 mg tablet 10 mg PO QAM Ozempic 0.25 mg or 0.5 mg(2 mg/1.5 mL) pen injector 1 mg SUBCUT Q7D Rx Instructions: on monday torsemide 40 mg Tablet 80 mg PO BID Changed spironolactone 25 mg tablet 25 mg PO BID Qty: 1 0RF Eliquis 5 mg tablet 2.5 mg PO BID Qty: 1 0RF Discontinued prednisone 5 mg tablet 5 mg PO DAILY Qty: 30 1RF pregabalin [Lyrica] 150 mg capsule 150 mg PO BID 90 Days Qty: 180 1RF losartan 25 mg tablet 25 mg PO DAILY Qty: 90 1RF potassium chloride 20 mEq tablet,ER particles/crystals 40 meq PO BID PRN (Reason: low potassium) diltiazem HCl [Cardizem] 120 mg Tablet 120 mg PO BID No Action (DME) Pharmacist Choice Strip See Rx Instructions .Route Qty: 50 2RF Rx Instructions: AC and HS (DME) blood-glucose meter,continuous Misc See Rx Instructions .Route Qty: 1 0RF Rx Instructions: As directed one meter with all necessary supplies (DME) cpap mask and supplies See Rx Instructions .Route .MEDSUPPLY Qty: 1 0RF Rx Instructions: As directed (DME) diabetic supplies, miscellan. Misc See Rx Instructions .Route Qty: 1 0RF Rx Instructions: As directed Discharge Orders: Discharge Order (Routine); Ordered 05/14/22 Ordered By: Jarvis Cormier Other Ambulatory Orders: DME: Walker (Order) Location: None Selected Ordered By: Jarvis Cormier Referrals: Maribell Roach [Other] - None (As per discussion. ) Chris Sellers MD [Physician] - 2 weeks Kenisha Stoll MD [Physician] - 2 weeks (Hypopituitarism, adrenal insufficiency) Piedad Sandhu MD [Primary Care Provider] - (Please call Monday to hedule your follow up appointment with Dr. Sandhu.) Discharge Diet: Cardiac and Diabetic Discharge Activity: Increase activity as tolerated and As per PT/OT instructions Patient Instructions: Diltiazem (By mouth), Sucralfate (By mouth), Potassium Chloride (By mouth), Midodrine (By mouth), Ciprofloxacin (Into the eye) Activity Restrictions/Additional Instructions: Continue on hydrocortisone with slow gradual taper. Discuss with your hydro excavation operator with regards to what dose you may need to stay on. Continue fludrocortisone, discuss with your hydro excavation operator regarding which dose and medication would be best to continue with regards to steroid and whether you need long-term maintenance dosing of mineralocorticoid. Continue potassium supplementation. Potassium should be checked with home health 3 times a week as well as at the end of your appointments with your primary provider, mail room clerk or other clinics. Based on potassium levels discuss with your primary doctor and/your mail room clerk when potassium dose can be decreased. Continue bumetanide. Wear compression stockings to avoid building up edema. Limit total fluid intake in a day to less than 1500 mL (less than 50 ounces). Do not resume Lyrica as it is suspected as the cause of your weakness and tremors. In case of recurrence of symptoms additional suspect may be pra mipexole. Ibuprofen doctor follow-up your kidney function. Monitor blood pressures 3 times daily, write down values to bring to her appointment. Reviewed with your primary provider and mail room clerk. Do not resume losartan for now due to soft blood pressures to avoid hypotension. Follow-up with Dr. Reyna and cardiology with regards to recurrent difficult to control atrial fibrillation with tachycardia. Follow-up with your primary doctor for reassessment after outer ear infection. Follow-up with your primary doctor for follow-up of conjunctivitis of the left eye. Use ciprofloxacin ointment. Avoid contaminating your other eye so as not to spread the infection or not spread to others. Wash your hands and avoid others making contact with your eye or secretions. Follow-up with your primary doctor with regards to iron deficiency anemia. Have them repeat your blood counts. If your blood pressures and heart rates remain controlled, and you remain at your baseline health, discuss further evaluation with endoscopy to exclude potential sources of rebleeding, exclude any dangerous causes making sure there is no malignancy, etc. Continue follow-up with your primary doctor regarding other chronic conditions. Discharge Attestations Time Spent in Discharge Care*: greater than 30 min Quality Metrics Clinical Quality Measures [ No reported AMI, CVA or VTE this stay] Coding Level of Care Code 15412 Total time (in minutes) for Discharge: 60 Diagnoses Hypokalemia E87.6 Intermittent atrial fibrillation I48.0 Acute on chronic diastolic (congestive) heart failure I50.33 Steroid dependence F19.20 Chronic kidney disease, stage 3a N18.31 Cellulitis L03.90
== END 2022-05-14 14:05 | disposition home health service (06) | DRG 682 ==
LOC: ER 23:27 → MEDSURG 23:53 → ICU 05-02 20:05 → CSU 05-04 14:47 → ICU 05-05 14:03 → MEDSURG 05-08 11:16
PROVIDERS: Family Medicine; Internal Medicine Cardiovascular Disease; Admitting Provider Internal Medicine; Emergency Provider Family Medicine; PCP Family Medicine; Visit Provider Internal Medicine
DX: N17.9 Acute kidney failure, unspecified (principal); I50.33 Acute on chronic diastolic (congestive) heart failure; J69.0 Pneumonitis due to inhalation of food and vomit; I13.0 Hypertensive heart and chronic kidney disease with heart failure and stage 1 through stage 4 chronic kidney disease, or unspecified chronic kidney disease; L03.116 Cellulitis of left lower limb; L03.115 Cellulitis of right lower limb; E27.2 Addisonian crisis; E23.0 Hypopituitarism; Z68.43 Body mass index [BMI] 50.0-59.9, adult; N18.31 Chronic kidney disease, stage 3a; E11.22 Type 2 diabetes mellitus with diabetic chronic kidney disease; E87.6 Hypokalemia; I48.0 Paroxysmal atrial fibrillation; Z79.52 Long term (current) use of systemic steroids; I25.10 Atherosclerotic heart disease of native coronary artery without angina pectoris; E03.9 Hypothyroidism, unspecified; I27.20 Pulmonary hypertension, unspecified; H10.9 Unspecified conjunctivitis; H60.91 Unspecified otitis externa, right ear; I95.9 Hypotension, unspecified; D50.9 Iron deficiency anemia, unspecified; Z99.89 Dependence on other enabling machines and devices; Z91.199 Patient's noncompliance with other medical treatment and regimen due to unspecified reason; Z87.891 Personal history of nicotine dependence; T50.995A Adverse effect of other drugs, medicaments and biological substances, initial encounter; R25.1 Tremor, unspecified; Z96.82 Presence of neurostimulator; Z87.440 Personal history of urinary (tract) infections; E11.51 Type 2 diabetes mellitus with diabetic peripheral angiopathy without gangrene; E66.01 Morbid (severe) obesity due to excess calories; Z86.16 Personal history of COVID-19; G89.29 Other chronic pain; M47.816 Spondylosis without myelopathy or radiculopathy, lumbar region; G47.33 Obstructive sleep apnea (adult) (pediatric)
CPT/HCPCS: 36415; 36416; 36600; 51702; 70450; 71045; 74018; 76705; 76770; 80048; 80053; 80076; 80162; 80202; 81001; 81003; 82533; 82728; 82803; 82962; 83540; 83550; 83605; 83735; 83880; 84100; 84132; 84145; 84443; 85025; 86140; 87040; 87077; 87086; 87186; 87635; 93005; 94640; 94660; 94664; 94760; 96372; 96374; 96375; 96376; 97110; 97116; 97161; 97167; 97530; 97535; 99285; G0378; J0282; J1160; J1720; J1756; J1815; J1940; J2060; J2185; J2405; J2550; J3370; J3475; J3490; J7040; J7060; J7512; J8499; J8597

== ENCOUNTER 2022-05-18 14:17 | Outpatient (CLI) | payer MEDICARE, OTHER, SELFPAY ==
[2022-05-18 15:09] LABS: Basophils # 0.2 10^3/uL (0.0-0.1); Basophils % 1.2 %; Eosinophils # 0.6 10^3/uL (0.0-0.8); Eosinophils % 3.4 %; Hematocrit 37.5 % (37.0-47.0); Hemoglobin 10.6 g/dL (11.5-15.3); Lymphocytes # 1.4 10^3/uL (0.8-4.8); Lymphocytes % 8.3 %; Mean Corpuscular HGB Conc 28.3 g/dL (30.0-36.0); Mean Corpuscular Hemoglobin 19.7 pg (28.0-34.0); Mean Corpuscular Volume 69.6 fl (81-99); Monocytes # 1.5 10^3/uL (0.2-0.9); Monocytes % 9.1 %; Neutrophils # 12.44 10^3/uL (1.8-7.7); Neutrophils % 76.2 %; Nucleated Red Blood Cells % 0.2 %; Platelet Count 318 10^3/cmm (130-400); Red Blood Count 5.39 10^6/uL (4.1-5.3); Red Cell Distribution Width 21.4 % (12.1-15.1); White Blood Count 16.3 10^3/uL (4.0-10.0)
[2022-05-18 15:20] LABS: Alanine Aminotransferase 19 U/L (0-33); Albumin Level 3.8 g/dL (3.5-5.2); Alkaline Phosphatase 102 U/L (35-105); Anion Gap 16.8 (5-19); Aspartate Amino Transferase 19 U/L (0-32); Blood Urea Nitrogen 10 mg/dL (8-23); Calcium 8.9 mg/dL (8.5-10.5); Carbon Dioxide 27 mmol/L (22-29); Chloride 96 mmol/L (98-107); Globulin 2.7 g/dL (1.3-4.6); Glomerular Filtration Rate 44.5 mL/min (90-130); Glucose 132 mg/dL (65-115); Osmolality Calculated 283 mOsm/kg (285-295); Potassium 3.8 mmol/L (3.5-5.1); Sodium 136 mmol/L (136-145); Total Bilirubin 0.7 mg/dL (0.15-1.2); Total Protein 6.5 g/dL (6.6-8.7)
== END 2022-05-18 14:18 | disposition home or self-care (01) ==
PROVIDERS: PCP Family Medicine; Visit Provider Family Medicine
DX: I50.9 Heart failure, unspecified (principal)
CPT/HCPCS: 80053; 85025; 99214

== ENCOUNTER 2022-05-21 11:12 | Outpatient (CLI) | payer MEDICARE, OTHER, SELFPAY ==
[2022-05-21 13:30] LABS: Basophils # 0.1 10^3/uL (0.0-0.1); Basophils % 0.8 %; Eosinophils # 0.1 10^3/uL (0.0-0.8); Eosinophils % 0.8 %; Hematocrit 38.4 % (37.0-47.0); Hemoglobin 10.2 g/dL (11.5-15.3); Lymphocytes # 1.5 10^3/uL (0.8-4.8); Lymphocytes % 9.5 %; Mean Corpuscular HGB Conc 26.6 g/dL (30.0-36.0); Mean Corpuscular Hemoglobin 19.4 pg (28.0-34.0); Mean Platelet Volume 10.3 fL (7.4-10.4); Monocytes # 1.3 10^3/uL (0.2-0.9); Monocytes % 7.9 %; Neutrophils # 12.74 10^3/uL (1.8-7.7); Neutrophils % 79.6 %; Nucleated Red Blood Cells % 0 %; Platelet Count 330 10^3/cmm (130-400); Red Blood Count 5.26 10^6/uL (4.1-5.3); Red Cell Distribution Width 21.1 % (12.1-15.1)
[2022-05-21 13:53] LABS: Blood Urea Nitrogen 15 mg/dL (8-23); Calcium 9.5 mg/dL (8.5-10.5); Carbon Dioxide 27 mmol/L (22-29); Chloride 97 mmol/L (98-107); Glucose 95 mg/dL (65-115); Osmolality Calculated 281 mOsm/kg (285-295); Sodium 135 mmol/L (136-145)
== END 2022-05-21 11:13 | disposition home or self-care (01) ==
LOC: LAB 11:14
PROVIDERS: PCP Family Medicine; Visit Provider Family Medicine
DX: N18.31 Chronic kidney disease, stage 3a (principal); I48.0 Paroxysmal atrial fibrillation
CPT/HCPCS: 80048; 85025

== ENCOUNTER 2022-05-23 09:31 | Outpatient (CLI) | payer MEDICARE, OTHER, SELFPAY ==
[2022-05-23 10:12] LABS: Anion Gap 16.7 (5-19); Blood Urea Nitrogen 22 mg/dL (8-23); Calcium 9.3 mg/dL (8.5-10.5); Carbon Dioxide 25 mmol/L (22-29); Chloride 100 mmol/L (98-107); Glomerular Filtration Rate 49.2 mL/min (90-130); Glucose 99 mg/dL (65-115); Osmolality Calculated 287 mOsm/kg (285-295); Potassium 4.7 mmol/L (3.5-5.1); Sodium 137 mmol/L (136-145)
== END 2022-05-23 09:32 | disposition home or self-care (01) ==
LOC: LAB 09:32
PROVIDERS: Nurse Practitioner Family; PCP Family Medicine; Visit Provider Family Medicine
DX: E87.6 Hypokalemia (principal)
CPT/HCPCS: 80048

== ENCOUNTER 2022-05-25 09:38 | Outpatient (CLI) | payer MEDICARE, OTHER, SELFPAY ==
[2022-05-25 10:03] LABS: Basophils # 0.1 10^3/uL (0.0-0.1); Basophils % 0.4 %; Eosinophils # 0.3 10^3/uL (0.0-0.8); Eosinophils % 1.6 %; Hematocrit 40.2 % (37.0-47.0); Hemoglobin 10.9 g/dL (11.5-15.3); Lymphocytes # 1.7 10^3/uL (0.8-4.8); Lymphocytes % 10.1 %; Mean Corpuscular HGB Conc 27.1 g/dL (30.0-36.0); Mean Corpuscular Hemoglobin 19.5 pg (28.0-34.0); Mean Platelet Volume 9.7 fL (7.4-10.4); Monocytes # 1.3 10^3/uL (0.2-0.9); Monocytes % 7.5 %; Nucleated Red Blood Cells % 0.1 %; Platelet Count 352 10^3/cmm (130-400); Red Blood Count 5.58 10^6/uL (4.1-5.3); Red Cell Distribution Width 21.4 % (12.1-15.1); White Blood Count 16.7 10^3/uL (4.0-10.0)
[2022-05-25 10:20] LABS: Anion Gap 14.2 (5-19); Blood Urea Nitrogen 20 mg/dL (8-23); Calcium 8.8 mg/dL (8.5-10.5); Carbon Dioxide 23 mmol/L (22-29); Chloride 101 mmol/L (98-107); Glucose 95 mg/dL (65-115); Osmolality Calculated 280 mOsm/kg (285-295); Potassium 4.2 mmol/L (3.5-5.1); Sodium 134 mmol/L (136-145)
== END 2022-05-25 09:39 | disposition home or self-care (01) ==
LOC: LAB 09:39
PROVIDERS: PCP Family Medicine; Visit Provider Family Medicine
DX: N18.30 Chronic kidney disease, stage 3 unspecified (principal); I48.91 Unspecified atrial fibrillation
CPT/HCPCS: 80048; 85025

== ENCOUNTER 2022-05-28 06:00 | Outpatient (CLI) | payer MEDICARE, OTHER, SELFPAY ==
[2022-05-28 17:36] LABS: Basophils # 0.1 10^3/uL (0.0-0.1); Basophils % 0.3 %; Eosinophils # 0.2 10^3/uL (0.0-0.8); Eosinophils % 0.7 %; Hematocrit 43.4 % (37.0-47.0); Hemoglobin 11.9 g/dL (11.5-15.3); Lymphocytes # 1.2 10^3/uL (0.8-4.8); Lymphocytes % 5.2 %; Mean Corpuscular HGB Conc 27.4 g/dL (30.0-36.0); Mean Corpuscular Hemoglobin 19.4 pg (28.0-34.0); Mean Corpuscular Volume 70.8 fl (81-99); Mean Platelet Volume 9.4 fL (7.4-10.4); Monocytes # 1.8 10^3/uL (0.2-0.9); Monocytes % 7.6 %; Neutrophils # 19.65 10^3/uL (1.8-7.7); Neutrophils % 84.5 %; Nucleated Red Blood Cells % 0 %; Platelet Count 415 10^3/cmm (130-400); Red Blood Count 6.13 10^6/uL (4.1-5.3); White Blood Count 23.3 10^3/uL (4.0-10.0)
[2022-05-28 17:57] LABS: Anion Gap 19.6 (5-19); Blood Urea Nitrogen 29 mg/dL (8-23); Calcium 9.5 mg/dL (8.5-10.5); Carbon Dioxide 24 mmol/L (22-29); Chloride 95 mmol/L (98-107); Glomerular Filtration Rate 44.5 mL/min (90-130); Glucose 147 mg/dL (65-115); Osmolality Calculated 287 mOsm/kg (285-295); Potassium 4.6 mmol/L (3.5-5.1); Sodium 134 mmol/L (136-145)
== END 2022-05-28 06:01 | disposition home or self-care (01) ==
LOC: LAB 06-09 18:14
PROVIDERS: PCP Family Medicine; Visit Provider Family Medicine
DX: N18.31 Chronic kidney disease, stage 3a (principal); I48.0 Paroxysmal atrial fibrillation
CPT/HCPCS: 80048; 85025

== ENCOUNTER 2022-05-30 16:40 | Outpatient (CLI) | payer MEDICARE, OTHER, SELFPAY ==
[2022-05-30 17:02] LABS: Basophils # 0.1 10^3/uL (0.0-0.1); Basophils % 0.3 %; Eosinophils # 0.2 10^3/uL (0.0-0.8); Eosinophils % 0.8 %; Hematocrit 42.7 % (37.0-47.0); Hemoglobin 11.7 g/dL (11.5-15.3); Lymphocytes # 0.9 10^3/uL (0.8-4.8); Lymphocytes % 4.4 %; Mean Corpuscular HGB Conc 27.4 g/dL (30.0-36.0); Mean Corpuscular Hemoglobin 19.6 pg (28.0-34.0); Mean Corpuscular Volume 71.4 fl (81-99); Mean Platelet Volume 9.6 fL (7.4-10.4); Monocytes # 1.3 10^3/uL (0.2-0.9); Monocytes % 6.2 %; Neutrophils % 85.6 %; Nucleated Red Blood Cells % 0 %; Platelet Count 387 10^3/cmm (130-400); Red Blood Count 5.98 10^6/uL (4.1-5.3); Red Cell Distribution Width 22.1 % (12.1-15.1); White Blood Count 21.1 10^3/uL (4.0-10.0)
[2022-05-30 17:24] LABS: Anion Gap 16.8 (5-19); Blood Urea Nitrogen 28 mg/dL (8-23); Calcium 9.5 mg/dL (8.5-10.5); Carbon Dioxide 24 mmol/L (22-29); Chloride 101 mmol/L (98-107); Glomerular Filtration Rate 44.5 mL/min (90-130); Glucose 191 mg/dL (65-115); Osmolality Calculated 295 mOsm/kg (285-295); Potassium 4.8 mmol/L (3.5-5.1); Sodium 137 mmol/L (136-145)
== END 2022-05-30 16:41 | disposition home or self-care (01) ==
LOC: LAB 16:40
PROVIDERS: PCP Family Medicine; Visit Provider Family Medicine
DX: N18.30 Chronic kidney disease, stage 3 unspecified (principal); I48.0 Paroxysmal atrial fibrillation
CPT/HCPCS: 80048; 85025

== ENCOUNTER 2022-06-01 15:02 | Outpatient (CLI) | payer MEDICARE, OTHER, SELFPAY ==
[2022-06-01 15:52] LABS: Basophils # 0.1 10^3/uL (0.0-0.1); Basophils % 0.5 %; Eosinophils # 0.3 10^3/uL (0.0-0.8); Eosinophils % 1.4 %; Hematocrit 46.9 % (37.0-47.0); Lymphocytes # 1.3 10^3/uL (0.8-4.8); Lymphocytes % 5.9 %; Mean Corpuscular HGB Conc 27.7 g/dL (30.0-36.0); Mean Corpuscular Hemoglobin 19.6 pg (28.0-34.0); Mean Corpuscular Volume 70.7 fl (81-99); Mean Platelet Volume 9.9 fL (7.4-10.4); Monocytes # 1.5 10^3/uL (0.2-0.9); Monocytes % 6.8 %; Neutrophils # 18.25 10^3/uL (1.8-7.7); Neutrophils % 82.5 %; Nucleated Red Blood Cells % 0.1 %; Platelet Count 381 10^3/cmm (130-400); Red Blood Count 6.63 10^6/uL (4.1-5.3); Red Cell Distribution Width 22.7 % (12.1-15.1); White Blood Count 22.1 10^3/uL (4.0-10.0)
[2022-06-01 16:10] LABS: Blood Urea Nitrogen 21 mg/dL (8-23); Calcium 10.2 mg/dL (8.5-10.5); Carbon Dioxide 27 mmol/L (22-29); Chloride 95 mmol/L (98-107); Glomerular Filtration Rate 62.1 mL/min (90-130); Glucose 128 mg/dL (65-115); Osmolality Calculated 281 mOsm/kg (285-295); Sodium 133 mmol/L (136-145)
[2022-06-01 16:12] LABS: Anion Gap 16.3 (5-19); Potassium 5.3 mmol/L (3.5-5.1)
== END 2022-06-01 15:03 | disposition home or self-care (01) ==
LOC: LAB 15:03
PROVIDERS: PCP Family Medicine; Visit Provider Family Medicine
DX: N18.31 Chronic kidney disease, stage 3a (principal); I48.0 Paroxysmal atrial fibrillation
CPT/HCPCS: 80048; 85025

== ENCOUNTER 2022-06-01 18:13 | Observation (INO) | payer MEDICARE, OTHER, SELFPAY ==
[2022-06-01 18:33] VITALS: BP 192/82; PULSE 79; RESP 20; TEMP 36.4; O2SAT 97; BMI 49.9
[2022-06-01 19:08] LABS: Basophils # 0.1 10^3/uL (0.0-0.1); Basophils % 0.3 %; Eosinophils # 0.1 10^3/uL (0.0-0.8); Eosinophils % 0.4 %; Hematocrit 45.2 % (37.0-47.0); Hemoglobin 12.7 g/dL (11.5-15.3); Lymphocytes # 1.1 10^3/uL (0.8-4.8); Lymphocytes % 4.8 %; Mean Corpuscular HGB Conc 28.1 g/dL (30.0-36.0); Mean Corpuscular Hemoglobin 19.9 pg (28.0-34.0); Mean Corpuscular Volume 70.7 fl (81-99); Mean Platelet Volume 9.1 fL (7.4-10.4); Monocytes # 1.8 10^3/uL (0.2-0.9); Monocytes % 7.8 %; Neutrophils # 19.66 10^3/uL (1.8-7.7); Neutrophils % 84.2 %; Nucleated Red Blood Cells % 0.1 %; Platelet Count 391 10^3/cmm (130-400); Red Blood Count 6.39 10^6/uL (4.1-5.3); Red Cell Distribution Width 22.5 % (12.1-15.1); White Blood Count 23.4 10^3/uL (4.0-10.0)
[2022-06-01 19:34] LABS: Alanine Aminotransferase 31 U/L (0-33); Albumin Level 4.4 g/dL (3.5-5.2); Alkaline Phosphatase 163 U/L (35-105); Anion Gap 18.4 (5-19); Aspartate Amino Transferase 13 U/L (0-32); Blood Urea Nitrogen 26 mg/dL (8-23); Calcium 9.6 mg/dL (8.5-10.5); Carbon Dioxide 24 mmol/L (22-29); Chloride 95 mmol/L (98-107); Globulin 2.8 g/dL (1.3-4.6); Glomerular Filtration Rate 37.3 mL/min (90-130); Glucose 210 mg/dL (65-115); Osmolality Calculated 287 mOsm/kg (285-295); Potassium 4.4 mmol/L (3.5-5.1); Sodium 133 mmol/L (136-145); Total Bilirubin 0.3 mg/dL (0.15-1.2); Total Protein 7.2 g/dL (6.6-8.7)
[2022-06-01 19:37] LABS: Creatinine Clr Calc Pharmacy 53.0644
--- NOTE | 2022-06-01 21:03 | XRR_ITS ---
PROCEDURE INFORMATION: Exam: XR Chest Exam date and time: 06/01/2022 9:08 PM Age: 71 years old Clinical indication: Other: Hypertension; Additional info: HTN TECHNIQUE: Imaging protocol: Radiologic exam of the chest. Views: 1 view. COMPARISON: CR XR chest 1V portable [id number] 05/06/2022 10:00 AM FINDINGS: Lungs: Unremarkable. No consolidation. Pleural spaces: Unremarkable. No pleural effusion. No pneumothorax. Heart/Mediastinum: Unremarkable. No cardiomegaly. Bones/joints: Unremarkable. XR/XR chest 1V portable [id number] IMPRESSION: No acute findings.
[2022-06-01 22:02] LABS: Lactate (Lactic Acid level) 2.9 mmol/L (0.5-2.2)
--- NOTE | 2022-06-01 23:00 | CTR_ITS ---
PROCEDURE INFORMATION: Exam: CT Abdomen And Pelvis Without Contrast Exam date and time: 06/02/2022 12:10 AM Age: 71 years old Clinical indication: Abnormal findings; Abnormal lab test; Elevated wbc; Prior surgery; Surgery type: Spinal stimulator. Hysterectomy. Patient HX: Wbc of 22k with diarrhea. ; Additional info: Abd pain TECHNIQUE: Imaging protocol: Computed tomography of the abdomen and pelvis without contrast. Radiation optimization: All CT scans at this facility use at least one of these dose optimization techniques: automated exposure control; mA and/or kV adjustment per patient size (includes targeted exams where dose is matched to clinical indication); or iterative reconstruction. REPORTING DATA: Count of CT and Cardiac NM exams in prior 12 months: This patient has received 3 known CTs and 0 known cardiac nuclear medicine studies in the 12 months prior to the current study. COMPARISON: CT kidney stone [id number] 01/16/2022 11:59 PM RADIATION DOSE METRICS: Total DLP (mGy-cm): 1259.58 FINDINGS: Tubes, catheters and devices: Spinal stimulator. Liver: Hepatic steatosis. Gallbladder and bile ducts: Normal. No calcified stones. No ductal dilation. Pancreas: Normal. No ductal dilation. Spleen: Normal. No splenomegaly. Adrenal glands: Normal. No mass. Kidneys and ureters: Normal. No hydronephrosis. Stomach and bowel: Constipation. Diverticulosis without diverticulitis. Appendix: No evidence of appendicitis. Intraperitoneal space: Unremarkable. No free air. No significant fluid collection. Vasculature: Unremarkable. No abdominal aortic aneurysm. Lymph nodes: Unremarkable. No enlarged lymph nodes. Urinary bladder: Unremarkable as visualized. Reproductive: Unremarkable as visualized. Bones/joints: Unremarkable. No acute fracture. Soft tissues: Unremarkable. CT/CT abdomen pelvis wo con [id number] IMPRESSION: 1. Negative for acute inflammatory process in the abdomen or pelvis. 2. Hepatic steatosis. 3. Constipation. 4. Diverticulosis without diverticulitis. 5. Spinal stimulator.
[2022-06-01] MEDS: sodium chloride 0.9% 1,000 ML 999 ML IV (23:32)
--- NOTE | 2022-06-01 23:58 | ED_ITS ---
HPI - Recheck/Abnormal Lab/Rx General: Chief Complaint: Recheck/Abnormal Lab/Rx Stated Complaint: abnormal labs Time Seen by Provider: 06/01/22 20:51 Source: patient Mode of arrival: ambulatory Limitations: no limitations History of Present Illness: 71-year-old female states she is sent here by her PCP because her white count was elevated is a 22 9. She denies any fever she states she has had some mild diarrhea and some mild abdominal pain she rates 2 out of 10 no cough looking back on her labs she does have some chronically elevated white blood count as well. She denies any chest pain or worsening proving factors. Review of Systems Const: Denies: fever(s), chills, body aches or change in appetite Eyes: Denies: blurry vision or eye discomfort ENMT: Denies: throat pain or dental pain Card: Denies: chest pain Resp: Denies: dyspnea GI: Reports: abdominal pain : Denies: dysuria Musc: Denies: neck pain or back pain Skin/Breast: Denies: rash Neuro: Denies: headache(s) Psych: Denies: depression Charli/Lymph: Denies: easy bruising All/Imm: Denies: urticaria PFSH ED PFSH: Medical History Acute kidney injury superimposed on chronic kidney disease Acute kidney injury superimposed on CKD Adrenal insufficiency Anasarca Anasarca Anasarca Anemia Atrial fibrillation Benign essential hypertension with target blood pressure below 140/90 Central hypothyroidism CHF (congestive heart failure) CHF exacerbation Chronic back pain Follows at pain clinic for periodic injections Chronic hyponatremia Colitis Congestive heart failure COVID-19 (~09/2020) Edema ESBL (extended spectrum beta-lactamase) producing bacteria infection Facet arthritis, degenerative, lumbar spine Fatigue Gastroenteritis History of anaphylaxis History of atrial fibrillation Intermittent, has not required long-term anticoagulation or focused treatment History of COVID-19 HTN (hypertension) Hx of atrial fibrillation, no current medication Hyperaldosteronism Hypokalemia Hypomagnesemia Hypophosphatemia 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 Increased nausea and vomiting Lumbar spondylolysis Metabolic acidosis Nausea vomiting and diarrhea OAB (overactive bladder) Obesity Obesity, morbid, BMI 50 or higher Obstructive sleep apnea KP (obstructive sleep apnea) Paroxysmal atrial fibrillation Pituitary macroadenoma with extrasellar extension Prediabetes Pulmonary hypertension PVD (peripheral vascular disease) Shock Stasis edema with ulcer and inflammation Steroid dependence Tachycardia Type 2 diabetes mellitus with other diabetic kidney complication Unsteady gait UTI (urinary tract infection) UTI (urinary tract infection) Venous (peripheral) insufficiency Volume overload VT (ventricular tachycardia) Surgical History H/O shoulder surgery History of hysterectomy History of pituitary surgery S/P insertion of spinal cord stimulator Family History Father Cancer pancreatic cancer Sister No problems noted. 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 Physical Exam Const: COMMON NORMALS: no acute distress, patient oriented x3 and healthy appearing HENMT: COMMON NORMALS: normocephalic and atraumatic HEAD & SCALP: normocephalic and atraumatic Eye: COMMON NORMALS: Equal, round and reactive pupils present and EOMs intact bilaterally PUPIL: Yes Equal, round and reactive pupils present Neck/C-Spine: COMMON NORMALS: full ROM and supple Chest: COMMONS NORMALS: normal inspection of the chest and normal palpation of entire chest wall Resp: COMMON NORMALS: normal respiratory effort, No retractions, No use of accessory muscles and clear to auscultation bilaterally AUSCULTATION: clear to auscultation bilaterally Cardio: COMMON NORMALS: regular rate, regular rhythm and No murmurs present (Cardio) RATE: regular rate RHYTHM: regular rhythm GI: COMMON NORMALS: Normal to inspection, nondistended, normoactive bowel sounds present, Soft to palpation, non-tender and no masses PALPATION: Yes Soft to palpation Extremity: COMMON NORMALS: normal to inspection and full ROM Neuro: COMMON NORMALS: patient oriented x3, moves all extremities and no focal motor deficits Psych: COMMON NORMALS: mental status grossly normal, Normal thought process present and cooperative THOUGHT PROCESS: Normal thought process present Skin: COMMON NORMALS: no rashes or lesions noted and no wounds GENERAL SKIN EXAM: no rashes or lesions noted Course Vital Signs: Vital signs: Vital Signs Temperature 97.5 F L 06/01/22 18:33 Pulse Rate 61 06/02/22 00:47 Respiratory Rate 18 06/02/22 00:47 Blood Pressure 138/79 06/02/22 00:47 Pulse Oximetry 97 06/02/22 00:47 Oxygen Delivery Me thod 06/02/22 00:47 MDM - Recheck/Abnormal Lab/Rx Medical Decision Making Patient presents here with significant leukocytosis along with a mild lactic elevation no sign of infection otherwise urinalysis chest x-ray and abdominal CT are normal I did speak to the hospitalist will get blood cultures give a dose of Levaquin and admit for observation at this time. Her blood pressures been stable. Lab Data 06/01/22 18:57 06/01/22 18:57 Radiology Impressions Chest X-Ray 06/01/22 21:03 IMPRESSION: No acute findings. Abdomen/Pelvis CT 06/01/22 23:00 IMPRESSION: 1. Negative for acute inflammatory process in the abdomen or pelvis. 2. Hepatic steatosis. 3. Constipation. 4. Diverticulosis without diverticulitis. 5. Spinal stimulator. Laboratory Results WBC 23.4 10^3/uL (4.0-10.0) H 06/01/22 18:57 RBC 6.39 10^6/uL (4.1-5.3) H 06/01/22 18:57 Hgb 12.7 g/dL (11.5-15.3) 06/01/22 18:57 Hct 45.2 % (37.0-47.0) 06/01/22 18:57 MCV 70.7 fl (81-99) L 06/01/22 18:57 MCH 19.9 pg (28.0-34.0) L 06/01/22 18:57 MCHC 28.1 g/dL (30.0-36.0) L 06/01/22 18:57 RDW 22.5 % (12.1-15.1) H 06/01/22 18:57 Plt Count 391 10^3/cmm (130-400) 06/01/22 18:57 MPV 9.1 fL (7.4-10.4) 06/01/22 18:57 Neut % (Auto) 84.2 % 06/01/22 18:57 Lymph % (Auto) 4.8 % 06/01/22 18:57 Robertson % (Auto) 7.8 % 06/01/22 18:57 Eos % (Auto) 0.4 % 06/01/22 18:57 Baso % (Auto) 0.3 % 06/01/22 18:57 Neut # (Auto) 19.66 10^3/uL (1.8-7.7) H 06/01/22 18:57 Lymph # (Auto) 1.1 10^3/uL (0.8-4.8) 06/01/22 18:57 Robertson # (Auto) 1.8 10^3/uL (0.2-0.9) H 06/01/22 18:57 Eos # (Auto) 0.1 10^3/uL (0.0-0.8) 06/01/22 18:57 Baso # (Auto) 0.1 10^3/uL (0.0-0.1) 06/01/22 18:57 Nucleated RBC % (auto) 0.1 % 06/01/22 18:57 Nucleated RBCs # 0.0 /100WBC 06/01/22 18:57 Sodium 133 mmol/L (136-145) L 06/01/22 18:57 Potassium 4.4 mmol/L (3.5-5.1) 06/01/22 18:57 Chloride 95 mmol/L (98-107) L 06/01/22 18:57 Carbon Dioxide 24 mmol/L (22-29) 06/01/22 18:57 Anion Gap 18.4 (5-19) 06/01/22 18:57 BUN 26 mg/dL (8-23) H 06/01/22 18:57 Creatinine 1.4 mg/dL (0.5-0.9) H 06/01/22 18:57 GFR Calculation 37.3 mL/min (90-130) L 06/01/22 18:57 Glucose 210 mg/dL (65-115) H 06/01/22 18:57 Calculated Osmolality 287 mOsm/kg (285-295) 06/01/22 18:57 Lactate 2.9 mmol/L (0.5-2.2) H 06/01/22 18:57 Calcium 9.6 mg/dL (8.5-10.5) 06/01/22 18:57 Total Bilirubin 0.3 mg/dL (0.15-1.2) 06/01/22 18:57 AST 13 U/L (0-32) 06/01/22 18:57 ALT 31 U/L (0-33) 06/01/22 18:57 Alkaline Phosphatase 163 U/L (35-105) H 06/01/22 18:57 Total Protein 7.2 g/dL (6.6-8.7) 06/01/22 18:57 Albumin 4.4 g/dL (3.5-5.2) 06/01/22 18:57 Globulin 2.8 g/dL (1.3-4.6) 06/01/22 18:57 Urine Color Yellow (Yellow) 06/02/22 00:06 Urine Appearance Clear (CLEAR) 06/02/22 00:06 Urine pH 6.5 (5-7) 06/02/22 00:06 Ur Specific [place] 1.015 (1.005-1.030) 06/02/22 00:06 Urine Protein Neg (Negative) 06/02/22 00:06 Urine Glucose (UA) 4+ (Normal) H 06/02/22 00:06 Urine Ketones Negative (Negative) 06/02/22 00:06 Urine Blood 3+ (Negative) H 06/02/22 00:06 Urine Nitrate Negative (Negative) 06/02/22 00:06 Urine Bilirubin Neg (Negative) 06/02/22 00:06 Urine Urobilinogen Norm mg/dL (Negative) 06/02/22 00:06 Ur Leukocyte Esterase Negative (Negative) 06/02/22 00:06 Urine RBC 5-10 /hpf (0-2) H 06/02/22 00:06 Urine WBC 0-4 /hpf (0-5) H 06/02/22 00:06 Ur Squamous Epith Cells 0-4 /hpf (0-5) H 06/02/22 00:06 Amorphous Sediment Not Reportable 06/02/22 00:06 Urine Bacteria Trace /hpf (NONE) 06/02/22 00:06 Discharge Plan Discharge Patient Disposition: Admitted As Inpatient Clinical Impression: Leukocytosis Condition: Stable Prescriptions: No Action epinephrine [EpiPen 2-Nabeel] 0.3 mg/0.3 mL auto-injector 0.3 mg IM Q10M PRN (Reason: anaphylaxis) Qty: 2 3RF Rx Instructions: for 3 doses Levemir FlexTouch U-100 Insuln 100 unit/mL (3 mL) insulin pen 10 unit SUBCUT DAILY 90 Days Qty: 9 1RF Rx Instructions: 10 units once daily lactulose 10 gram/15 mL solution 30 g PO BID Qty: 473 1RF (DME) Pharmacist Choice Strip See Rx Instructions .Route Qty: 50 2RF Rx Instructions: AC and HS (DME) blood-glucose meter,continuous Misc See Rx Instructions .Route Qty: 1 0RF Rx Instructions: As directed one meter with all necessary supplies (DME) cpap mask and supplies See Rx Instructions .Route .MEDSUPPLY Qty: 1 0RF Rx Instructions: As directed levothyroxine 175 mcg tablet 175 mcg PO QAM 90 Days Qty: 90 1RF pantoprazole [Protonix] 40 mg tablet,delayed release (DR/EC) 40 mg PO BEDTIME Qty: 30 3RF neomycin-polymyxin B-dexameth [Maxitrol] 3.5mg/mL-10,000 unit/mL-0.1 % drops,suspension 1 drp ophthalmic (eye) Q12H Qty: 5 0RF (DME) diabetic supplies, miscellan. Misc See Rx Instructions .Route Qty: 1 0RF Rx Instructions: As directed polyethylene glycol 3350 [Miralax] 17 gram/dose Powder 17 g PO DAILY PRN (Reason: Constipation) hydroxyzine pamoate 25 mg capsule 25 mg PO BID PRN (Reason: Anxiety) magnesium L-lactate [Magtab] 84 mg tablet extended release 84 mg PO QAM pramipexole [Mirapex] 0.5 mg tablet 1 mg PO BEDTIME Jardiance 10 mg tablet 10 mg PO QAM Ozempic 0.25 mg or 0.5 mg(2 mg/1.5 mL) pen injector 1 mg SUBCUT Q7D Rx Instructions: on monday torsemide 40 mg Tablet 80 mg PO BID sucralfate 1 gram Tablet 1 g PO AC&BEDTIME Qty: 42 0RF midodrine 5 mg Tablet 5 mg PO TID Qty: 90 0RF diltiazem HCl 300 mg Capsule,Extended Release 24hr 300 mg PO DAILY Qty: 90 0RF hydrocortisone 10 mg Tablet 40 mg PO QAM Qty: 30 3RF Rx Instructions: 4 tabs in the morning for 2 days, then 2 tabs each morning for 2 days, then 1 tab each morning fludrocortisone 0.1 mg Tablet 0.1 mg PO DAILY Qty: 90 0RF hydrocortisone 5 mg tablet 5 mg PO Q24H Qty: 30 3RF Rx Instructions: 2 tab in the afternoon for 2 days, then continue 1 tab for 2 days, then half tab. Klor-Con M20 20 mEq tablet,ER particles/crystals 80 meq PO DAILY Qty: 120 0RF spironolactone 25 mg tablet 25 mg PO BID Qty: 1 0RF Eliquis 5 mg tablet 2.5 mg PO BID Qty: 1 0RF Referrals: Piedad Sandhu MD [Primary Care Provider] - Coding Level of Care Code ED Spice Room Worker for Duarte Molina
[2022-06-02] VITALS (13 sets, daily range): BP systolic 138–175; BP diastolic 76–100; PULSE 59–84; RESP 16–19; TEMP 36.7–36.9; O2SAT 96–98
[2022-06-02 01:13] LABS: Urine Appearance Clear (CLEAR); Urine Color Yellow (Yellow); pH Urine 6.5 (5-7)
[2022-06-02 01:14] LABS: Add Urine Microscopic? YES; Bilirubin Urine Neg (Negative); Blood Urine 3+ (Negative); Glucose Urine UA 4+ (Normal); Ketones Urine Negative (Negative); Leukocyte Esterase Urine Negative (Negative); Nitrate Urine Negative (Negative); Protein Urine Neg (Negative); Specific Gravity, Urine 1.015 (1.005-1.030); Urobilinogen Urine Norm (Negative)
[2022-06-02 01:16] LABS: Bacteria Urine TRACE /hpf; Squamous Epithelial Cell Urine 0-4 /hpf (0-5); WBC Urine 0-4 /hpf (0-5)
[2022-06-02] MEDS: levofloxacin-dextrose 5 % 750 MG/150 ML PREMIX 100 MG IV (01:35)
--- NOTE | 2022-06-02 02:15 | PC.NURSE ---
Patient states she has pacemaker and CRD scheduled in [place] Dr. Reyna Monday. Patient states Dr. Sellers talked to Dr. Reyna to set this up.
[2022-06-02 06:50] LABS: Glucose Point of Care 123 mg/dL (70-110)
--- NOTE | 2022-06-02 09:00 | PC.PHAR ---
pt states she takes care of her own medications-pt states she is only taking the medication entered pt states they dced some of her other medications that had been filled in apr-pt states she takes bumex 2mg bid prn-pt states the dr decreased her eliquis to 2.5mg bid ext med history shows last filled 04/01/22 30d/s 5mg bid-pt states her kcl changes every mon mon and mon ext med history shows last filled 80meq daily filled 05/14/22 30d/s pt states was taking 20meq bid prn-notes are made in the pharmacy comments
--- NOTE | 2022-06-02 09:58 | P.HP_ITS ---
Providers/Chief Complaint Admitting Physician: Shea Guardado MD Primary Care Provider: Piedad Sandhu MD Chief Complaint: abnormal labs History of Present Illness Carolyn Alexander is a 71 year old female with past medical history of congestive heart failure, CAD, hypertension, hypothyroidism, obstructive sleep apnea, pulmonary hypertension who was recently discharged on May 14 when she was admitted for generalized weakness along with gross tremors and RODRIGUE. That hospitalization was complicated by her developing adrenal crisis. Patient was sent into the hospital with nausea leukocytosis found on blood work done at home by her primary care provider. Patient herself denies any nausea vomiting, headache, dizziness, dysuria, runny nose but complains of generalized feeling of unwell. She did have episode of diarrhea on Monday but since then has not repeated. Blood work done in the ER showed a white count 23,000 hemoglobin of 12, sodium of 133, potassium of 4.4 creatinine of 1.4, lactate of 2.9, alkaline phosphatase of 163, UA negative for any sign of infection with CT abdomen pelvis consistent with constipation and further results as below. Review of Systems General: Reports: 10 or more systems reviewed and unremarkable except in HPI and below Const: Denies: fever(s), chills, body aches, change in appetite, change in weight, malaise, night sweats, diaphoresis, change in sleep pattern, daytime sleepiness or snoring Eyes: Denies: change in vision, blurry vision, photophobia, eye discomfort or eye discharge ENMT: Denies: throat pain, enlarged tonsils, hoarseness, mouth pain, oral sores, dry mouth, tinnitus, nasal congestion or post nasal drip Card: Denies: chest pain, palpitations, irregular heart rhythm, edema, swelling of feet/ankles, lightheadedness, syncope, pre-syncope, dyspnea on exertion, orthopnea, leg pain with exertion or acrocyanosis Resp: Denies: dyspnea, productive cough, non-productive cough, wheezing, stri carlos, pain on inspiration, change in phlegm color, hemoptysis or chest congestion GI: Denies: abdominal pain, nausea, vomiting, hematemesis, coffee ground emesis, dysphagia, heartburn, diarrhea, constipation, bloating, GI cramping, change in bowel habits, pain on defecation, hematochezia or melena : Denies: flank pain, dysuria, urinary frequency, urinary urgency, urinary hesitancy, nocturia or hematuria Musc: Denies: neck pain, back pain, extremity pain, joint pain, joint swelling, joint redness, joint stiffness or limited range of motion Neuro: Denies: headache(s), numbness in extremities, weakness in extremities, sensory changes, lack of coordination, difficulty walking, frequent falls, dizziness, vertigo, confusion, Slurred speech present, difficulty communicating thoughts or seizure-like activity Psych: Denies: anxiety, depression, mood swings, panic attacks, hopelessness or irritability Endo: Denies: polyuria, polydipsia, tired all the time, cold intolerance, excessive sweating, flushing or heat intolerance Charli/Lymph: Denies: easy bruising or easy bleeding All/Imm: Denies: tongue swelling, facial swelling or acute wheezing Medications/Allergies Home Medications Medication Instructions Recorded Confirmed Last Taken Type diabetic supplies, miscellan. #1 ea 01/21/21 06/02/22 Unknown Rx blood sugar diagnostic (Pharmacist #[id number] ea 03/04/21 06/02/22 Unknown Rx Choice Glucose Test Strips) blood-glucose meter,continuous #1 ea 03/04/21 06/02/22 Unknown Rx polyethylene glycol 3350 17 17 g PO DAILY PRN Constipation 05/05/21 06/02/22 01/11/22 History gram/dose oral powder (Miralax) empagliflozin 10 mg tablet 10 mg PO QAM 08/02/21 06/02/22 2 Days Ago History (Jardiance) ~04/30/22 pramipexole 0.5 mg tablet (Mirapex) 1 mg PO BEDTIME 08/02/21 06/02/22 2 Days Ago History ~04/30/22 semaglutide 0.25 mg or 0.5 mg (2 1 mg SUBCUT Q7D 08/02/21 06/02/22 04/24/22 History mg/1.5 mL) subcutaneous pen injector (Ozempic) cpap mask and supplies #1 ea 09/14/21 06/02/22 Unknown Rx levothyroxine 175 mcg tablet 175 mcg PO QAM 90 days #90 tabs 10/13/21 06/02/22 2 Days Ago Rx ~04/30/22 spironolactone 25 mg tablet 25 mg PO BID #1 tab 05/14/22 06/02/22 2 Days Ago Rx ~04/30/22 [id number]-lyaewyedh-[id number] 3.5 1 drp ophthalmic (eye) Q12H #5 mL 05/23/22 06/02/22 Unknown Rx mg/mL-10,000 unit/mL-0.1% eye drops (Maxitrol) pantoprazole 40 mg tablet,delayed 40 mg PO BEDTIME #30 tabs 05/23/22 06/02/22 Unknown Rx release (Protonix) apixaban 5 mg tablet (Eliquis) 2.5 mg PO BID 06/02/22 06/02/22 Unknown History bumetanide 1 mg tablet 2 mg PO BID PRN Edema 06/02/22 06/02/22 Unknown History dexamethasone 1 mg tablet 1 mg PO QAM 06/02/22 06/02/22 Unknown History diltiazem HCl 300 mg 300 mg PO QAM 06/02/22 06/02/22 Unknown History capsule,extended release 24 hr lactulose 10 gram/15 mL oral 30 ml PO BID PRN Constipation 06/02/22 06/02/22 Unknown History solution potassium chloride 20 mEq 20 meq PO BID PRN low potassium 06/02/22 06/02/22 05/29/22 History tablet,extended 20 meq release(part/cryst) (Klor-Con M) Allergies Allergy/AdvReac Type Severity Reaction Status Date / Time pregabalin Allergy Unknown ADV-Weaknes Verified 06/02/22 02:19 s acetaminophen [From Tylenol] Allergy ALGY-Hives Verified 01/17/22 08:27 azithromycin Allergy ALGY-Anaphy Verified 01/17/22 08:27 laxis benzocaine Allergy ALGY-Hives Verified 01/17/22 08:27 butamben [From Cetacaine] Allergy ALGY-Swell Verified 01/17/22 08:27 Lip/Tongue/Throat codeine Allergy ALGY-Hives Verified 01/17/22 08:27 fentanyl Allergy ALGY-Anaphy Verified 01/17/22 08:27 laxis hydrocodone [From Vicodin] Allergy ALGY-Hives Verified 01/17/22 08:27 hydromorphone [From Dilaudid] Allergy ADR-Vomitin Verified 01/17/22 08:27 g Iodinated Contrast Media Allergy ALGY-Anaphy Verified 01/17/22 08:27 laxis liothyronine Allergy ADR-Nausea Verified 01/17/22 08:27 meperidine [From Demerol] Allergy Unknown Verified 01/17/22 08:27 morphine Allergy ALGY-Anaphy Verified 01/17/22 08:27 laxis nitrofurantoin Allergy ALGY-Joint Verified 01/17/22 08:27 [From Macrobid] Pain oxycodone [From Percocet] Allergy ALGY-Hives Verified 01/17/22 08:27 penicillin V Allergy ALGY-Hives Verified 01/17/22 08:27 Penicillins Allergy Unknown Verified 01/17/22 08:27 Phenothiazines Allergy ALGY-Anaphy Verified 01/17/22 08:27 laxis procaine Allergy ALGY-Hives Verified 01/17/22 08:27 prochlorperazine Allergy ALGY-Anaphy Verified 01/17/22 08:27 [From Compazine] laxis Sulfa (Sulfonamide Allergy Unknown Verified 01/17/22 08:27 Antibiotics) tetracaine [From Cetacaine] Allergy ALGY-Swell Verified 01/17/22 08:27 Lip/Tongue/Throat PFSH Acute PFSH: Medical History (Updated 06/02/22 @ 15:10 by Keo Hernadez MD) Acute hypercapnic respiratory failure Acute kidney injury superimposed on chronic kidney disease Acute kidney injury superimposed on CKD Adrenal insufficiency Anasarca Anemia Atrial fibrillation Benign essential hypertension with target blood pressure below 140/90 Central hypothyroidism CHF (congestive heart failure) Chronic back pain Follows at pain clinic for periodic injections Chronic hyponatremia Colitis COVID-19 (~09/2020) Edema ESBL (extended spectrum beta-lactamase) producing bacteria infection Facet arthritis, degenerative, lumbar spine Fatigue Gastroenteritis History of anaphylaxis History of atrial fibrillation Intermittent, has not required long-term anticoagulation or focused treatment History of COVID-19 HTN (hypertension) Hx of atrial fibrillation, no current medication Hyperaldosteronism Hypokalemia Hypomagnesemia Hypophosphatemia 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 Increased nausea and vomiting Lumbar spondylolysis Metabolic acidosis Nausea vomiting and diarrhea OAB (overactive bladder) Obesity Obesity, morbid, BMI 50 or higher Obstructive sleep apnea KP (obstructive sleep apnea) Paroxysmal atrial fibrillation Pituitary macroadenoma with extrasellar extension Prediabetes Pulmonary hypertension PVD (peripheral vascular disease) Shock Stasis edema with ulcer and inflammation Steroid dependence Tachycardia Type 2 diabetes mellitus with other diabetic kidney complication Unsteady gait UTI (urinary tract infection) Venous (peripheral) insufficiency Volume overload VT (ventricular tachycardia) Surgical History H/O shoulder surgery History of hysterectomy History of pituitary surgery S/P insertion of spinal cord stimulator Family History Father Cancer pancreatic cancer Sister No problems noted. 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 Vitals/I&O/Wt Last Vital Signs Temp 98.0 F 06/02/22 08:00 Pulse 62 06/02/22 08:00 Resp 17 06/02/22 08:00 BP 153/83 06/02/22 08:00 Pulse Ox 96 06/02/22 08:00 O2 Del Method 06/02/22 03:13 06/01/22 06/02/22 06/02/22 22:59 06:59 14:59 Intake Total 1150 / 1150 360 / 360 Output Total 550 / 550 300 / 300 Balance 600 / 600 60 / 60 Weight last 48 hrs Weight 136.078 kg Physical Exam Narrative: General: No acute distress, AO x3, morbidly obese, anxious, multipl e ecchymotic lesions present on both hands which she attributes to blood draws in the ER HEENT: PERRLA, pupils bilaterally equal and reactive Chest: Normal vesicular breath sounds, no added sounds, equal good air entry bilaterally CVS: S1-S2 regular, no murmurs, no tachycardia, no gallops, no rubs Abdomen: Soft, nontender, no organomegaly, bowel sounds present Neuro: No focal deficits, no facial deformity, AO x3, power 5/5 in all limbs Data 06/01/22 18:57 06/01/22 18:57 Micro: Microbiology 06/01/22 22:36 Blood Culture - Preliminary Blood SPECIMEN COLLECTED 06/01/22 18:55 Blood Culture - Preliminary Blood SPECIMEN COLLECTED A&P Assessment and plan (1) Leukocytosis: No active source of infection. UA done in the ER negative for signs of infection. CT abdomen pelvis negative for source of infection. Consistent with constipation. Chest x-ray negative for consolidation. Patient does complain of diarrhea. Hold off on any antibiotics for now until patient becomes hemodynamically unstable or has fever. Could be secondary to chronic steroid use. Follow-up blood cultures. Check stool studies to rule out C. difficile. (2) Malaise and fatigue: Be secondary to CKD. Leukocytosis present but no active signs of infection. Respiratory viral panel. 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 Monitor blood pressures. (4) History of adrenal insufficiency: (5) Diastolic heart failure: Last echocardiogram from 2020 shows an EF of 70% with grade 1 diastolic dysfu nction. Patient seems compensated for now. Repeat echocardiogram. Continue home dose of as needed Bumex. (6) History of atrial fibrillation: (7) Chronic kidney disease, stage 3a: On further review it seems patient's creatinine has been elevated recently. Most likely in setting of chronic ibuprofen use at home. Start on gentle IV hydration with normal saline 75 cc/h. (8) Constipation: Started on aggressive bowel regimen with milk of magnesia and senna Colace. Plan Type 2 diabetes mellitus: Insulin sliding scale at low-dose protocol. Most recent A1c 7.3. Takes Jardiance at home. Full code. Regular diet. Patient requesting for regular not carb consistent. Protonix for PUD prophylaxis Eliquis will suffice for DVT prophylaxis. Care discussed in detail with the patient. Went over the medication with the patient along with long list of allergy list. Patient asking to be started on antibiotics. We discussed at her now we do not have any sign of site of infection. We will like to monitor further before starting antibiotics. Patient requesting medication for headache. States she is allergic to Tylenol, Dilaudid, hydrocodone, morphine, tramadol and she has been recently diagnosed of polycythemia vera. Discussed her leukocytosis could be secondary to inflammation versus reactionary versus possibly from recent polycythemia vera. Attestations Medical Necessity Statement*: Admission under observation for leukocytosis while infection or bacteremia is ruled out. Diagnoses Leukocytosis D72.829 Malaise and fatigue R53.81; R53.83 Hypopituitarism E23.0 History of adrenal insufficiency Z86.39 Diastolic heart failure I50.30 History of atrial fibrillation Z86.79 Chronic kidney disease, stage 3a N18.31 Constipation K59.00
[2022-06-02 10:39] LABS: Basophils # 0.1 10^3/uL (0.0-0.1); Basophils % 0.5 %; Eosinophils # 0.4 10^3/uL (0.0-0.8); Eosinophils % 1.8 %; Hematocrit 44.3 % (37.0-47.0); Hemoglobin 12.3 g/dL (11.5-15.3); Lymphocytes # 1.9 10^3/uL (0.8-4.8); Lymphocytes % 8.4 %; Mean Corpuscular HGB Conc 27.8 g/dL (30.0-36.0); Mean Corpuscular Hemoglobin 19.9 pg (28.0-34.0); Mean Corpuscular Volume 71.7 fl (81-99); Mean Platelet Volume 9.1 fL (7.4-10.4); Monocytes # 1.5 10^3/uL (0.2-0.9); Monocytes % 6.8 %; Neutrophils # 18.15 10^3/uL (1.8-7.7); Neutrophils % 80.2 %; Nucleated Red Blood Cells % 0 %; Platelet Count 334 10^3/cmm (130-400); Red Blood Count 6.18 10^6/uL (4.1-5.3); White Blood Count 22.6 10^3/uL (4.0-10.0)
--- NOTE | 2022-06-02 10:39 | PC.CHAP ---
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 sustainable design consultant visit [] Patient/Family/Request visit [] Outpatient visit [] Follow-up visit [] Physician referral [] Code/Alert [] Routine visit [] Staff referral [] Actively dying [] Patient sleeping [] Family support [] [] Out of room [] Palliative care [] [] Receiving care in room [] Pre-surgical visit [] Trauma [] Long length of stay [] ICU visit [x] Other: Isolation Relational/Emotional Strength [] Patient feels connected with others/family/visitors/staff [] Distress [] Loneliness/isolation [] Abandonment Spirituality of Patient [] Person of Minoo [] Attends Mormon of their [place] [] Believes in Prayer [] Reads Bible or Restoration materials [] There are Spiritual issues to be addressed Rewinder Operator Interventions [] Prayer [] Active listening [] Non-anxious presence [] Spiritual/emotional support [] Crisis/trauma care [] Spiritual counseling [] Bereavement support [] Provided bereavement packet [] Provided Bible/devotional materials [] Provided toy/stuffed animal, coloring book to patient or family member [] Provided Communion [] Anointing/[place] [] Salvation [] Completed spiritual assessment [] Other: Impact on Illness or Injury [] Angry [] Fearful [] Anxious [] Often cries [] Exhaustion [] Unable to work [] Unable to attend yarsanism [] Unable to walk/stand [] Unable to read [] Unable to drive [] Unable to eat/drink [] Unable to sleep [] Unable to be with family [] Patient intubated [] Other: Summary Isolation Time spent with patient 5 mins
[2022-06-02] MEDS: docusate sodium 100 mg Capsule PO ×2 (10:41→17:41)
[2022-06-02] MEDS: magnesium hydroxide 30 mL UDC PO (10:41)
[2022-06-02] MEDS: dilTIAZem ER (24HR) 300 mg Capsule PO (10:41)
[2022-06-02] MEDS: bumetanide 1 mg Tablet 2 MG PO (10:56)
[2022-06-02 11:01] LABS: Lactic Sepsis W/Reflex 1.6 mmol/L (0.5-2.2)
[2022-06-02 11:09] LABS: Procalcitonin 0.07 ng/mL (0-0.5)
[2022-06-02 12:06] LABS: Glucose Point of Care 155 mg/dL (70-110)
[2022-06-02] MEDS: insulin lispro 100 unit/1 mL SUBCUT ×3 (12:15→22:14)
--- NOTE | 2022-06-02 15:04 | USCV_ITS ---
Carolyn Alexander Age: 71 Gender: F : 1950 Exam Date: 06/02/2022 16:01 Ordering Phys: Keo Hernadez MD Technologist: Rajendra Toure Exam Location: [facility] [place]_ Indication: bilat edema PROCEDURES: The venous duplex Doppler examination of both lower extremities was performed in the standard fashion. The following venous structures were evaluated: common femoral vein, profunda vein, proximal portion of the greater saphenous vein, superficial femoral vein, and the popliteal vein. In addition, the posterior tibial and peroneal trunk were evaluated. FINDINGS: Normal 2-D Doppler and augmentation and compressibility throughout the lower extremity venous structures. Additional imaging through the proximal calf veins also reveals no thrombus. Limited evaluation of the greater saphenous vein is patent with no thrombus.. CONCLUSIONS No evidence of right lower extremity DVT. No evidence of left lower extremity DVT. Fox Abad MD (Electronically Signed) Final Date: 02 June 2022 17:31 S
--- NOTE | 2022-06-02 15:04 | USCV_ITS ---
Carolyn Alexander Age: 71 Gender: F : 1950 Exam Date: 06/02/2022 15:53 Ordering Phys: Keo Hernadez MD Technologist: Rajendra Toure Exam Location: [facility] [place] Indication: chf BP: 154 / 83 HR: 79 Rhythm: Sinus Technical Quality: Very poor MEASUREMENTS (Male / Female) Normal Values 2D ECHO LVOT Diameter 2.1 cm LV Ejection Fraction MOD 2C 68.4 % LV Ejection Fraction 2C AL 67.7 % LA Diameter 4.1 cm M-MODE Aortic Annulus Diameter 4.0 cm LA Ao Ratio MM 1.0 MV E Point Septal Separation 1.2 cm FINDINGS Left Ventricle The study is extremely poor and limited. No Doppler examination was performed. The ventricle is noted to be normal in size with normal function in the apical view. The ejection fraction is probably within normal limits. Diastolic function not evaluated. Right Ventricle Normal right ventricular size and systolic function. Right Atrium Right atrium not well visualized. Left Atrium Left atrium not well visualized. Mitral Valve Mitral valve not well visualized. Aortic Valve Aortic valve not well visualized. Tricuspid Valve Tricuspid valve not well visualized. Pulmonic Valve Pulmonic valve not well visualized. Pericardium Normal pericardium without effusion. Aorta Aorta not well visualized. IVC Inferior vena cava not visualized. CONCLUSIONS The study is extremely poor and limited. No Doppler examination was performed. The ventricle is noted to be normal in size with normal function in the apical view. The ejection fraction is probably within normal limits. Diastolic function not evaluated. The previous echo was performed 01/04/2022. It was an equally poor quality study. Echo contrast was used. There is probably no change from the previous ultrasound. Dr. Leon Mendoza MD (Electronically Signed) Final Date: 02 June 2022 19:19 S
[2022-06-02] MEDS: ibuprofen 200 mg Tablet PO (15:23)
[2022-06-02] MEDS: apixaban 5 mg Tablet 2.5 MG PO (17:42)
[2022-06-02] MEDS: spironolactone 25 mg Tablet PO (17:42)
[2022-06-02 17:50] LABS: Glucose Point of Care 275 mg/dL (70-110)
[2022-06-02 18:13] LABS: Adenovirus Not Detected (NOT DETECT); Chlamydia Pneumoniae Not Detected (NOT DETECT); Coronavirus 229E,HKU1,NL63,OC4 Not Detected (NOT DETECT); Human Metapneumovirus Not Detected (NOT DETECT); Human Rhinovirus/Enterovirus Not Detected (NOT DETECT); Influenza A Not Detected (NOT DETECT); Influenza A H1 Not Detected (NOT DETECT); Influenza A H1-2009 Not Detected (NOT DETECT); Influenza A H3 Not Detected (NOT DETECT); Influenza B Not Detected (NOT DETECT); Mycoplasma Pneumoniae Not Detected (NOT DETECT); Parainfluenza Virus Type 1 Not Detected (NOT DETECT); Parainfluenza Virus Type 2 Not Detected (NOT DETECT); Parainfluenza Virus Type 3 Not Detected (NOT DETECT); Parainfluenza Virus Type 4 Not Detected (NOT DETECT); Respiratory Syncytial Virus A Not Detected (NOT DETECT); Respiratory Syncytial Virus B Not Detected (NOT DETECT); SARS-COV-2 Not Detected (NOT DETECT)
[2022-06-02] MEDS: pramipexole 0.25 mg Tablet 1 MG PO (20:57)
[2022-06-02] MEDS: pantoprazole DR 40 mg Tablet PO (20:58)
[2022-06-02 21:47] LABS: Glucose Point of Care 242 mg/dL (70-110)
[2022-06-03 04:00] VITALS: BP 168/84; PULSE 72; RESP 20; TEMP 36.6; O2SAT 95
--- NOTE | 2022-06-03 04:42 | PC.NURSE ---
Patient's IV came out. Patient is asking that it be left out. Patient states if I end up not being discharged today, then I'll worry about getting another one.
[2022-06-03] MEDS: levothyroxine 175 mcg Tablet PO (04:59)
[2022-06-03] MEDS: dilTIAZem ER (24HR) 300 mg Capsule PO (04:59)
[2022-06-03 05:12] VITALS: PULSE 63
[2022-06-03 05:17] LABS: Basophils # 0.1 10^3/uL (0.0-0.1); Basophils % 0.4 %; Eosinophils # 0.2 10^3/uL (0.0-0.8); Eosinophils % 0.9 %; Hematocrit 40.4 % (37.0-47.0); Hemoglobin 11.2 g/dL (11.5-15.3); Lymphocytes # 1.4 10^3/uL (0.8-4.8); Lymphocytes % 6.9 %; Mean Corpuscular HGB Conc 27.7 g/dL (30.0-36.0); Mean Corpuscular Hemoglobin 20.1 pg (28.0-34.0); Mean Corpuscular Volume 72.4 fl (81-99); Mean Platelet Volume 9.6 fL (7.4-10.4); Monocytes # 1.6 10^3/uL (0.2-0.9); Neutrophils # 16.65 10^3/uL (1.8-7.7); Neutrophils % 81.2 %; Nucleated Red Blood Cells % 0.1 %; Platelet Count 300 10^3/cmm (130-400); Red Blood Count 5.58 10^6/uL (4.1-5.3); Red Cell Distribution Width 22.4 % (12.1-15.1); White Blood Count 20.5 10^3/uL (4.0-10.0)
[2022-06-03 05:40] LABS: Alanine Aminotransferase 26 U/L (0-33); Albumin Level 3.5 g/dL (3.5-5.2); Alkaline Phosphatase 125 U/L (35-105); Anion Gap 17.4 (5-19); Aspartate Amino Transferase 13 U/L (0-32); Blood Urea Nitrogen 27 mg/dL (8-23); Calcium 9.2 mg/dL (8.5-10.5); Carbon Dioxide 23 mmol/L (22-29); Chloride 96 mmol/L (98-107); Globulin 2.8 g/dL (1.3-4.6); Glomerular Filtration Rate 49.2 mL/min (90-130); Glucose 218 mg/dL (65-115); Magnesium 2.5 mg/dL (1.7-2.3); Osmolality Calculated 286 mOsm/kg (285-295); Phosphorus 3.7 mg/dL (2.5-4.5); Potassium 4.4 mmol/L (3.5-5.1); Sodium 132 mmol/L (136-145); Total Bilirubin 0.3 mg/dL (0.15-1.2); Total Protein 6.3 g/dL (6.6-8.7)
[2022-06-03 06:22] LABS: Glucose Point of Care 177 mg/dL (70-110)
[2022-06-03 08:00] VITALS: BP 135/73; PULSE 64; RESP 16; TEMP 36.6; O2SAT 97
[2022-06-03] MEDS: spironolactone 25 mg Tablet PO (08:19)
[2022-06-03] MEDS: apixaban 5 mg Tablet 2.5 MG PO (08:19)
[2022-06-03] MEDS: insulin lispro 100 unit/1 mL SUBCUT (08:19)
[2022-06-03] MEDS: docusate sodium 100 mg Capsule PO (08:19)
[2022-06-03 08:45] LABS: Acinetobacter baumannii Not Detected (NOT DETECT); Bacteroides fragilis Not Detected (NOT DETECT); Citrobacter Not Detected (NOT DETECT); Cronobacter sakazakii Not Detected (NOT DETECT); Enterobacter cloacae complex Not Detected (NOT DETECT); Enterobacter non cloacae Not Detected (NOT DETECT); Fusobacterium necrophorum Not Detected (NOT DETECT); Fusobacterium nucleatum Not Detected (NOT DETECT); Haemophilus influenzae Not Detected (NOT DETECT); Klebsiella pneumoniae group Not Detected (NOT DETECT); Morganella morganii Not Detected (NOT DETECT); Neisseria meningitidis Not Detected (NOT DETECT); Pan Candida Not Detected (NOT DETECT); Pan Gram-Positive Detected (NOT DETECT); Proteus mirabilis Not Detected (NOT DETECT); Pseudomonas aeruginosa Not Detected (NOT DETECT); Salmonella Not Detected (NOT DETECT); Serratia Not Detected (NOT DETECT); Serratia marcescens Not Detected (NOT DETECT); Stenotrophomonas maltophilia Not Detected (NOT DETECT)
--- NOTE | 2022-06-03 09:38 | PM.DCS ---
Discharge Providers Date of Admission: 06/02/22 01:22 Date of Discharge: June 03, 2022 Attending Provider at Admission: Shea Guardado MD Attending Provider at Discharge: Keo Hernadez MD Primary Care Provider: Piedad Sandhu MD Diagnoses at Discharge Discharge Diagnosis (1) Leukocytosis: Status: Acute (2) Malaise and fatigue: Status: Acute (3) Hypopituitarism: Status: Acute (4) History of adrenal insufficiency: Status: Acute (5) Diastolic heart failure: Status: Acute (6) History of atrial fibrillation: Status: Acute Permanent problem details: Intermittent, has not required long-term anticoagulation or focused treatment (7) Chronic kidney disease, stage 3a: Status: Acute (8) Constipation: Status: Acute Reason for Visit Reason for Visit: abnormal labs Hospital Course Hospital Course Carolyn Alexander is a 71 year old female with past medical history of congestive heart failure, CAD, hypertension, hypothyroidism, obstructive sleep apnea, pulmonary hypertension who was recently discharged on May 14 when she was admitted for generalized weakness along with gross tremors and RODRIGUE.? That hospitalization was complicated by her developing adrenal crisis. Patient was sent into the hospital with nausea leukocytosis found on blood work done at home by her primary care provider.? Patient herself denies any nausea vomiting, headache, dizziness, dysuria, runny nose but complains of generalized feeling of unwell.? She did have episode of diarrhea on Monday but since then has not repeated.? Blood work done in the ER showed a white count 23,000 hemoglobin of 12, sodium of 133, potassium of 4.4 creatinine of 1.4, lactate of 2.9, alkaline phosphatase of 163, UA negative for any sign of infection with CT abdomen pelvis consistent with constipation and further results as below. Patient was admitted to hospital further evaluation and management of leukocytosis.. Signs of infection including possible UTI, pneumonia were ruled out. Blood cultures were taken. Stool for C. difficile was negative. CT abdomen pelvis was done which is consistent with constipation. Blood cultures from day of admission 1 out of 3 bottles came back positive for coag positive staph which is most likely contaminant but given her recent history of being critically sick along with being on chronic steroids she is being discharged on linezolid 600 mg twice daily for now. Repeat blood cultures will be followed and if negative patient will be advised to stop linezolid. Care plan discussed in detail with the patient and she verbalized understanding and is agreeable. Physical Exam Narrative: General: No acute distress, AO x3, morbidly obese, anxious, multiple ecchymotic lesions present on both hands which she attributes to blood draws in the ER HEENT: PERRLA, pupils bilaterally equal and reactive Chest: Normal vesicular breath sounds, no added sounds, equal good air entry bilaterally CVS: S1-S2 regular, no murmurs, no tachycardia, no gallops, no rubs Abdomen: Soft, nontender, no organomegaly, bowel sounds present Neuro: No focal deficits, no facial deformity, AO x3, power 5/5 in all limbs Discharge Data Studies Completed and Pending Completed Studies During Hospitalization Category Date Time Status CT abdomen pelvis wo con [id number] Stat Cat Scan 06/01/22 23:00 Completed CXRP [XR chest 1V portable [id number]] Stat Exams 06/01/22 21:03 [place] [id number] Routine Ultrasound 06/02/22 15:04 Completed CV. echo limited [id number] Routine Ultrasound 06/02/22 15:04 Completed Pending at discharge Category Date Time Status Blood Culture Stat Lab 06/01/22 22:36 Results Radiology Impressions Chest X-Ray 06/01/22 21:03 IMPRESSION: No acute findings. Abdomen/Pelvis CT 06/01/22 23:00 IMPRESSION: 1. Negative for acute inflammatory process in the abdomen or pelvis. 2. Hepatic steatosis. 3. Constipation. 4. Diverticulosis without diverticulitis. 5. Spinal stimulator. Microbiology 06/03/22 10:22 Blood Blood Culture - Preliminary SPECIMEN COLLECTED 06/03/22 10:13 Blood Blood Culture - Preliminary SPECIMEN COLLECTED 06/01/22 22:36 Blood Blood Culture - Preliminary 06/01/22 18:55 Blood Blood Culture - Preliminary NEGATIVE TO DATE 06/02/22 12:47 Stool Routine Collection C.difficile Toxin B Gene (PCR) - Final Laboratory Results WBC 20.5 10^3/uL (4.0-10.0) H 06/03/22 04:15 RBC 5.58 10^6/uL (4.1-5.3) H 06/03/22 04:15 Hgb 11.2 g/dL (11.5-15.3) L 06/03/22 04:15 Hct 40.4 % (37.0-47.0) 06/03/22 04:15 MCV 72.4 fl (81-99) L 06/03/22 04:15 MCH 20.1 pg (28.0-34.0) L 06/03/22 04:15 MCHC 27.7 g/dL (30.0-36.0) L 06/03/22 04:15 RDW 22.4 % (12.1-15.1) H 06/03/22 04:15 Plt Count 300 10^3/cmm (130-400) 06/03/22 04:15 MPV 9.6 fL (7.4-10.4) 06/03/22 04:15 Neut % (Auto) 81.2 % 06/03/22 04:15 Lymph % (Auto) 6.9 % 06/03/22 04:15 Reagan % (Auto) 8.0 % 06/03/22 04:15 Eos % (Auto) 0.9 % 06/03/22 04:15 Baso % (Auto) 0.4 % 06/03/22 04:15 Neut # (Auto) 16.65 10^3/uL (1.8-7.7) H 06/03/22 04:15 Lymph # (Auto) 1.4 10^3/uL (0.8-4.8) 06/03/22 04:15 Reagan # (Auto) 1.6 10^3/uL (0.2-0.9) H 06/03/22 04:15 Eos # (Auto) 0.2 10^3/uL (0.0-0.8) 06/03/22 04:15 Baso # (Auto) 0.1 10^3/uL (0.0-0.1) 06/03/22 04:15 Nucleated RBC % (auto) 0.1 % 06/03/22 04:15 Nucleated RBCs # 0.0 /100WBC 06/03/22 04:15 Sodium 132 mmol/L (136-145) L 06/03/22 04:15 Potassium 4.4 mmol/L (3.5-5.1) 06/03/22 04:15 Chloride 96 mmol/L (98-107) L 06/03/22 04:15 Carbon Dioxide 23 mmol/L (22-29) 06/03/22 04:15 Anion Gap 17.4 (5-19) 06/03/22 04:15 BUN 27 mg/dL (8-23) H 06/03/22 04:15 Creatinine 1.1 mg/dL (0.5-0.9) H 06/03/22 04:15 GFR Calculation 49.2 mL/min (90-130) L 06/03/22 04:15 Glucose 218 mg/dL (65-115) H 06/03/22 04:15 POC Glucose 177 mg/dL (70-110) H 06/03/22 06:13 Calculated Osmolality 286 mOsm/kg (285-295) 06/03/22 04:15 Lactic Acid 1.6 mmol/L (0.5-2.2) 06/02/22 10:30 Lactate 2.9 mmol/L (0.5-2.2) H 06/01/22 18:57 Calcium 9.2 mg/dL (8.5-10.5) 06/03/22 04:15 Phosphorus 3.7 mg/dL (2.5-4.5) 06/03/22 04:15 Magnesium 2.5 mg/dL (1.7-2.3) H 06/03/22 04:15 Total Bilirubin 0.3 mg/dL (0.15-1.2) 06/03/22 04:15 AST 13 U/L (0-32) 06/03/22 04:15 ALT 26 U/L (0-33) 06/03/22 04:15 Alkaline Phosphatase 125 U/L (35-105) H 06/03/22 04:15 Total Protein 6.3 g/dL (6.6-8.7) L 06/03/22 04:15 Albumin 3.5 g/dL (3.5-5.2) 06/03/22 04:15 Globulin 2.8 g/dL (1.3-4.6) 06/03/22 04:15 Procalcitonin 0.07 ng/mL (0-0.5) 06/02/22 10:30 Urine Color Yellow (Yellow) 06/02/22 00:06 Urine Appearance Clear (CLEAR) 06/02/22 00:06 Urine pH 6.5 (5-7) 06/02/22 00:06 Ur Specific [place] 1.015 (1.005-1.030) 06/02/22 00:06 Urine Protein Neg (Negative) 06/02/22 00:06 Urine Glucose (UA) 4+ (Normal) H 06/02/22 00:06 Urine Ketones Negative (Negative) 06/02/22 00:06 Urine Blood 3+ (Negative) H 06/02/22 00:06 Urine Nitrate Negative (Negative) 06/02/22 00:06 Urine Bilirubin Neg (Negative) 06/02/22 00:06 Urine Urobilinogen Norm mg/dL (Negative) 06/02/22 00:06 Ur Leukocyte Esterase Negative (Negative) 06/02/22 00:06 Urine RBC 5-10 /hpf (0-2) H 06/02/22 00:06 Urine WBC 0-4 /hpf (0-5) H 06/02/22 00:06 Ur Squamous Epith Cells 0-4 /hpf (0-5) H 06/02/22 00:06 Amorphous Sediment Not Reportable 06/02/22 00:06 Urine Bacteria Trace /hpf (NONE) 06/02/22 00:06 Nasal Influ A H1 2009 PCR Not detected (NOT DETECT) 06/02/22 13:34 Adenovirus (PCR) Not detected (NOT DETECT) 06/02/22 13:34 C. pneumoniae DNA (PCR) Not detected (NOT DETECT) 06/02/22 13:34 Coronavirus 229E (PCR) Not detected (NOT DETECT) 06/02/22 13:34 Human Metapneumovir PCR Not detected (NOT DETECT) 06/02/22 13:34 Influenza A (H1) PCR Not detected (NOT DETECT) 06/02/22 13:34 Influenza A (H3) PCR Not detected (NOT DETECT) 06/02/22 13:34 Influenza Type A (PCR) Not detected (NOT DETECT) 06/02/22 13:34 Influenza Type B (PCR) Not detected (NOT DETECT) 06/02/22 13:34 M. pneumoniae (PCR) Not detected (NOT DETECT) 06/02/22 13:34 Parainfluenza 1 (PCR) Not detected (NOT DETECT) 06/02/22 13:34 Parainfluenza 2 (PCR) Not detected (NOT DETECT) 06/02/22 13:34 Parainfluenza 3 (PCR) Not detected (NOT DETECT) 06/02/22 13:34 Parainfluenza 4 (PCR) Not detected (NOT DETECT) 06/02/22 13:34 RSV Type A (PCR) Not detected (NOT DETECT) 06/02/22 13:34 RSV Type B (PCR) Not detected (NOT DETECT) 06/02/22 13:34 Entero/Rhino (PCR) Not detected (NOT DETECT) 06/02/22 13:34 SARS-CoV-2 (PCR) Not detected (NOT DETECT) 06/02/22 13:34 Vitals Last Vital Signs Temp 97.9 F 06/03/22 08:00 Pulse 64 06/03/22 08:00 Resp 16 06/03/22 08:00 BP 135/73 06/03/22 08:00 Pulse Ox 97 06/03/22 08:00 O2 Del Method 06/03/22 08:00 Discharge Plan Discharge Patient Disposition: Home Health Service Condition: Stable Prescriptions: New docusate sodium 100 mg Capsule 100 mg PO BID Qty: 30 0RF linezolid 600 mg tablet 600 mg PO BID 10 Days Qty: 20 0RF Continued (DME) Pharmacist Choice Strip See Rx Instructions .Route Qty: 50 2RF Rx Instructions: AC and HS (DME) blood-glucose meter,continuous Misc See Rx Instructions .Route Qty: 1 0RF Rx Instructions: As directed one meter with all necessary supplies (DME) cpap mask and supplies See Rx Instructions .Route .MEDSUPPLY Qty: 1 0RF Rx Instructions: As directed levothyroxine 175 mcg tablet 175 mcg PO QAM 90 Days Qty: 90 1RF pantoprazole [Protonix] 40 mg tablet,delayed release (DR/EC) 40 mg PO BEDTIME Qty: 30 3RF neomycin-polymyxin B-dexameth [Maxitrol] 3.5mg/mL-10,000 unit/mL-0.1 % drops,suspension 1 drp ophthalmic (eye) Q12H Qty: 5 0RF (DME) diabetic supplies, miscellan. Misc See Rx Instructions .Route Qty: 1 0RF Rx Instructions: As directed polyethylene glycol 3350 [Miralax] 17 gram/dose Powder 17 g PO DAILY PRN (Reason: Constipation) potassium chloride [Klor-Con M20] 20 mEq tablet,ER particles/crystals 20 meq PO BID PRN (Reason: low potassium) Rx Instructions: dose gets adjusted on mon,wed and mon lactulose 10 gram/15 mL solution 30 ml PO BID PRN (Reason: Constipation) Eliquis 5 mg tablet 2.5 mg PO BID bumetanide 1 mg tablet 2 mg PO BID PRN (Reason: Edema) diltiazem HCl 300 mg capsule,extended release 24hr 300 mg PO QAM pramipexole [Mirapex] 0.5 mg tablet 1 mg PO BEDTIME Jardiance 10 mg tablet 10 mg PO QAM Ozempic 0.25 mg or 0.5 mg(2 mg/1.5 mL) pen injector 1 mg SUBCUT Q7D Rx Instructions: on monday spironolactone 25 mg tablet 25 mg PO BID Qty: 1 0RF No Action dexamethasone 1 mg tablet 1 mg PO QAM Qty: 30 2RF Discharge Orders: Discharge Order (Routine); Ordered 06/03/22 Ordered By: Keo Hernadez Referrals: [facility] ([facility]) [Outside] Piedad Sandhu MD [Primary Care Provider] - 06/07/22 3:00 pm ( ) Discharge Diet: Cardiac and Diabetic Discharge Activity: Resume usual activity and Increase activity as tolerated Patient Instructions: Laxative, Stool Softeners (By mouth), Linezolid (By mouth), Opioid Safety Activity Restrictions/Additional Instructions: Please follow-up with a primary care provider within next 1 week. Please follow-up the blood cultures results which were drawn today and follow with a primary care provider. Tell them take linezolid 600 mg twice daily. If negative you can stop taking linezolid. Discharge Attestations Time Spent in Discharge Care*: greater than 30 min Specific Discharge Activities: educating patient, educating and/or supporting family/caregiver, discussing with pcp/other providers, discussing with correctional case manager/social workers/dc planners, documenting/other paperwork and evaluating patient/reviewing data Status at Discharge: Cognitive status at discharge: cognitively intact, Behavioral status at discharge: can be uncooperative, Functional status at discharge: other assisted ambulation, Overall status at discharge: patient is back to baseline Quality Metrics Clinical Quality Measures [ No reported AMI, CVA or VTE this stay] Coding Level of Care Code 28199 Total time (in minutes) for Discharge: 50 Diagnoses Leukocytosis D72.829 Malaise and fatigue R53.81; R53.83 Hypopituitarism E23.0 History of adrenal insufficiency Z86.39 Diastolic heart failure I50.30 History of atrial fibrillation Z86.79 Chronic kidney disease, stage 3a N18.31 Constipation K59.00
--- NOTE | 2022-06-03 10:12 | PC.CHAP ---
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 section weaver visit [] Patient/Family/Request visit [] Outpatient visit [] Follow-up visit [] Physician referral [] Code/Alert [x] Routine visit [] Staff referral [] Actively dying [] Patient sleeping [] Family support [] [] Out of room [] Palliative care [] [] Receiving care in room [] Pre-surgical visit [] Trauma [] Long length of stay [] ICU visit [] Other: Relational/Emotional Strength [] Patient feels connected with others/family/visitors/staff [] Distress [] Loneliness/isolation [] Abandonment Spirituality of Patient [x] Person of [place] [] Attends Congregation of their [place] [x] Believes in Prayer [] Reads Bible or Taoism materials [] There are Spiritual issues to be addressed Skin Care Specialist Interventions [x] Prayer [] Active listening [] Non-anxious presence [] Spiritual/emotional support [] Crisis/trauma care [] Spiritual counseling [] Bereavement support [] Provided bereavement packet [] Provided Bible/devotional materials [] Provided toy/stuffed animal, coloring book to patient or family member [] Provided Communion [] Anointing/[place] [] Salvation [] Completed spiritual assessment [] Other: Impact on Illness or Injury [] Angry [] Fearful [] Anxious [] Often cries [] Exhaustion [] Unable to work [] Unable to attend mosque [] Unable to walk/stand [] Unable to read [] Unable to drive [] Unable to eat/drink [] Unable to sleep [] Unable to be with family [] Patient intubated [] Other: Summary Time spent with patient 5 min
[2022-06-03 12:52] VITALS: BP 135/73; PULSE 64; RESP 16; TEMP 36.6; O2SAT 97
== END 2022-06-03 12:53 | disposition home health service (06) ==
LOC: ER 06-02 01:28 → MEDSURG 06-02 01:34
PROVIDERS: Admitting Provider Student in an Organized Health Care Education/Training Program; Emergency Provider Emergency Medicine; PCP Family Medicine; Visit Provider Student in an Organized Health Care Education/Training Program
DX: D72.829 Elevated white blood cell count, unspecified (principal); K59.00 Constipation, unspecified; I13.0 Hypertensive heart and chronic kidney disease with heart failure and stage 1 through stage 4 chronic kidney disease, or unspecified chronic kidney disease; I50.32 Chronic diastolic (congestive) heart failure; N18.31 Chronic kidney disease, stage 3a; E11.22 Type 2 diabetes mellitus with diabetic chronic kidney disease; I25.10 Atherosclerotic heart disease of native coronary artery without angina pectoris; E03.9 Hypothyroidism, unspecified; G47.33 Obstructive sleep apnea (adult) (pediatric); I27.20 Pulmonary hypertension, unspecified; E27.40 Unspecified adrenocortical insufficiency; I48.91 Unspecified atrial fibrillation; Z87.891 Personal history of nicotine dependence; E23.0 Hypopituitarism; B95.8 Unspecified staphylococcus as the cause of diseases classified elsewhere
CPT/HCPCS: 36415; 36416; 71045; 74176; 80048; 80053; 81001; 82962; 83605; 83735; 84100; 84145; 85025; 87040; 87077; 87205; 87486; 87493; 87581; 87633; 93308; 93970; 94664; 96361; 96372; 96374; 99285; G0378; J1815; J1956; J7030

== ENCOUNTER 2022-06-04 11:37 | Outpatient (CLI) | payer MEDICARE, OTHER, SELFPAY ==
[2022-06-04 11:46] LABS: Basophils # 0.1 10^3/uL (0.0-0.1); Basophils % 0.5 %; Eosinophils # 0.4 10^3/uL (0.0-0.8); Hematocrit 41.7 % (37.0-47.0); Hemoglobin 11.5 g/dL (11.5-15.3); Lymphocytes # 1.9 10^3/uL (0.8-4.8); Mean Corpuscular HGB Conc 27.6 g/dL (30.0-36.0); Mean Corpuscular Hemoglobin 19.9 pg (28.0-34.0); Mean Corpuscular Volume 72.1 fl (81-99); Monocytes # 1.5 10^3/uL (0.2-0.9); Monocytes % 7.9 %; Neutrophils # 14.76 10^3/uL (1.8-7.7); Neutrophils % 77.9 %; Nucleated Red Blood Cells % 0 %; Platelet Count 330 10^3/cmm (130-400); Red Blood Count 5.78 10^6/uL (4.1-5.3); Red Cell Distribution Width 22.3 % (12.1-15.1)
[2022-06-04 12:09] LABS: Alanine Aminotransferase 25 U/L (0-33); Albumin Level 3.8 g/dL (3.5-5.2); Alkaline Phosphatase 126 U/L (35-105); Anion Gap 14.5 (5-19); Aspartate Amino Transferase 10 U/L (0-32); Blood Urea Nitrogen 22 mg/dL (8-23); Calcium 9.5 mg/dL (8.5-10.5); Carbon Dioxide 26 mmol/L (22-29); Chloride 98 mmol/L (98-107); Globulin 2.6 g/dL (1.3-4.6); Glomerular Filtration Rate 62.1 mL/min (90-130); Glucose 103 mg/dL (65-115); Osmolality Calculated 282 mOsm/kg (285-295); Potassium 4.5 mmol/L (3.5-5.1); Sodium 134 mmol/L (136-145); Total Bilirubin 0.4 mg/dL (0.15-1.2); Total Protein 6.4 g/dL (6.6-8.7)
== END 2022-06-04 11:38 | disposition home or self-care (01) ==
LOC: LAB 11:39
PROVIDERS: PCP Family Medicine; Visit Provider Family Medicine
DX: N18.31 Chronic kidney disease, stage 3a (principal); I48.0 Paroxysmal atrial fibrillation
CPT/HCPCS: 80053; 85025

== ENCOUNTER 2022-06-06 19:02 | Outpatient (CLI) | payer MEDICARE, OTHER, SELFPAY ==
[2022-06-06 19:12] LABS: Basophils # 0.1 10^3/uL (0.0-0.1); Basophils % 0.2 %; Eosinophils % 0.1 %; Hematocrit 43.1 % (37.0-47.0); Hemoglobin 12.1 g/dL (11.5-15.3); Lymphocytes # 0.9 10^3/uL (0.8-4.8); Lymphocytes % 4.2 %; Mean Corpuscular HGB Conc 28.1 g/dL (30.0-36.0); Mean Corpuscular Volume 71.4 fl (81-99); Mean Platelet Volume 9.8 fL (7.4-10.4); Monocytes # 1.5 10^3/uL (0.2-0.9); Monocytes % 6.5 %; Neutrophils # 19.58 10^3/uL (1.8-7.7); Neutrophils % 87.3 %; Nucleated Red Blood Cells % 0 %; Platelet Count 367 10^3/cmm (130-400); Red Blood Count 6.04 10^6/uL (4.1-5.3); Red Cell Distribution Width 22.3 % (12.1-15.1); White Blood Count 22.4 10^3/uL (4.0-10.0)
[2022-06-06 19:34] LABS: Alanine Aminotransferase 23 U/L (0-33); Alkaline Phosphatase 142 U/L (35-105); Aspartate Amino Transferase 13 U/L (0-32); Blood Urea Nitrogen 35 mg/dL (8-23); Calcium 9.5 mg/dL (8.5-10.5); Carbon Dioxide 24 mmol/L (22-29); Chloride 97 mmol/L (98-107); Globulin 2.7 g/dL (1.3-4.6); Glomerular Filtration Rate 49.2 mL/min (90-130); Glucose 266 mg/dL (65-115); Osmolality Calculated 297 mOsm/kg (285-295); Sodium 135 mmol/L (136-145); Total Bilirubin 0.2 mg/dL (0.15-1.2); Total Protein 6.7 g/dL (6.6-8.7)
[2022-06-06 19:35] LABS: Anion Gap 18.7 (5-19); Potassium 4.7 mmol/L (3.5-5.1)
== END 2022-06-06 19:03 | disposition home or self-care (01) ==
LOC: LAB 19:02
PROVIDERS: PCP Family Medicine; Visit Provider Family Medicine
DX: N18.31 Chronic kidney disease, stage 3a (principal); I48.0 Paroxysmal atrial fibrillation
CPT/HCPCS: 80053; 85025

== ENCOUNTER 2022-06-08 11:18 | Outpatient (CLI) | payer MEDICARE, OTHER, SELFPAY ==
[2022-06-08 10:03] LABS: Basophils # 0.1 10^3/uL (0.0-0.1); Basophils % 0.3 %; Eosinophils # 0.3 10^3/uL (0.0-0.8); Eosinophils % 1.9 %; Hematocrit 43.7 % (37.0-47.0); Lymphocytes # 1.7 10^3/uL (0.8-4.8); Mean Corpuscular HGB Conc 27.5 g/dL (30.0-36.0); Mean Corpuscular Hemoglobin 19.8 pg (28.0-34.0); Mean Corpuscular Volume 72.2 fl (81-99); Mean Platelet Volume 10.1 fL (7.4-10.4); Monocytes # 1.3 10^3/uL (0.2-0.9); Monocytes % 7.8 %; Neutrophils # 13.63 10^3/uL (1.8-7.7); Neutrophils % 78.8 %; Nucleated Red Blood Cells % 0 %; Platelet Count 333 10^3/cmm (130-400); Red Blood Count 6.05 10^6/uL (4.1-5.3); Red Cell Distribution Width 22.7 % (12.1-15.1); White Blood Count 17.3 10^3/uL (4.0-10.0)
[2022-06-08 10:37] LABS: Anion Gap 16.3 (5-19); Blood Urea Nitrogen 29 mg/dL (8-23); Calcium 9.4 mg/dL (8.5-10.5); Carbon Dioxide 25 mmol/L (22-29); Chloride 99 mmol/L (98-107); Glucose 105 mg/dL (65-115); Osmolality Calculated 288 mOsm/kg (285-295); Potassium 4.3 mmol/L (3.5-5.1); Sodium 136 mmol/L (136-145)
== END 2022-06-08 11:19 | disposition home or self-care (01) ==
LOC: LAB 06-14 11:19
PROVIDERS: PCP Family Medicine; Visit Provider Family Medicine
DX: N18.31 Chronic kidney disease, stage 3a (principal); I48.0 Paroxysmal atrial fibrillation
CPT/HCPCS: 80048; 85025

== ENCOUNTER 2022-06-10 13:12 | Outpatient (CLI) | payer MEDICARE, OTHER, SELFPAY ==
[2022-06-10 13:31] LABS: Basophils % 0.2 %; Eosinophils # 0.2 10^3/uL (0.0-0.8); Eosinophils % 1.4 %; Hematocrit 43.8 % (37.0-47.0); Hemoglobin 12.1 g/dL (11.5-15.3); Lymphocytes # 0.9 10^3/uL (0.8-4.8); Lymphocytes % 4.9 %; Mean Corpuscular HGB Conc 27.6 g/dL (30.0-36.0); Mean Corpuscular Volume 72.3 fl (81-99); Mean Platelet Volume 9.6 fL (7.4-10.4); Monocytes % 5.5 %; Neutrophils % 87.2 %; Nucleated Red Blood Cells % 0 %; Platelet Count 285 10^3/cmm (130-400); Red Blood Count 6.06 10^6/uL (4.1-5.3); Red Cell Distribution Width 23.1 % (12.1-15.1); White Blood Count 17.8 10^3/uL (4.0-10.0)
[2022-06-10 13:49] LABS: Anion Gap 17.4 (5-19); Blood Urea Nitrogen 23 mg/dL (8-23); Calcium 9.2 mg/dL (8.5-10.5); Carbon Dioxide 22 mmol/L (22-29); Chloride 99 mmol/L (98-107); Glomerular Filtration Rate 62.1 mL/min (90-130); Glucose 182 mg/dL (65-115); Osmolality Calculated 286 mOsm/kg (285-295); Potassium 4.4 mmol/L (3.5-5.1); Sodium 134 mmol/L (136-145)
== END 2022-06-10 13:13 | disposition home or self-care (01) ==
LOC: LAB 13:12
PROVIDERS: PCP Family Medicine; Visit Provider Family Medicine
DX: N18.31 Chronic kidney disease, stage 3a (principal); I48.0 Paroxysmal atrial fibrillation
CPT/HCPCS: 80048; 85025

== ENCOUNTER 2022-06-13 13:27 | Outpatient (CLI) | payer MEDICARE, OTHER, SELFPAY ==
[2022-06-13 13:49] LABS: Basophils % 0.3 %; Eosinophils # 0.3 10^3/uL (0.0-0.8); Eosinophils % 1.9 %; Hematocrit 43.2 % (37.0-47.0); Lymphocytes # 1.6 10^3/uL (0.8-4.8); Lymphocytes % 12.1 %; Mean Corpuscular HGB Conc 27.8 g/dL (30.0-36.0); Mean Corpuscular Hemoglobin 20.2 pg (28.0-34.0); Mean Corpuscular Volume 72.6 fl (81-99); Mean Platelet Volume 9.7 fL (7.4-10.4); Monocytes # 1.1 10^3/uL (0.2-0.9); Monocytes % 8.4 %; Neutrophils # 10.31 10^3/uL (1.8-7.7); Neutrophils % 76.9 %; Nucleated Red Blood Cells % 0.2 %; Platelet Count 261 10^3/cmm (130-400); Red Blood Count 5.95 10^6/uL (4.1-5.3); Red Cell Distribution Width 23.6 % (12.1-15.1); White Blood Count 13.4 10^3/uL (4.0-10.0)
[2022-06-13 14:29] LABS: Blood Urea Nitrogen 21 mg/dL (8-23); Calcium 8.7 mg/dL (8.5-10.5); Carbon Dioxide 24 mmol/L (22-29); Chloride 100 mmol/L (98-107); Glomerular Filtration Rate 71.1 mL/min (90-130); Glucose 78 mg/dL (65-115); Osmolality Calculated 284 mOsm/kg (285-295); Sodium 136 mmol/L (136-145)
== END 2022-06-13 13:28 | disposition home or self-care (01) ==
LOC: LAB 13:29
PROVIDERS: PCP Family Medicine; Visit Provider Family Medicine
DX: N18.31 Chronic kidney disease, stage 3a (principal); I48.0 Paroxysmal atrial fibrillation
CPT/HCPCS: 80048; 85025

== ENCOUNTER 2022-06-15 13:31 | Outpatient (CLI) | payer MEDICARE, OTHER, SELFPAY ==
[2022-06-15 14:18] LABS: Basophils # 0.1 10^3/uL (0.0-0.1); Basophils % 0.8 %; Eosinophils # 0.4 10^3/uL (0.0-0.8); Eosinophils % 2.9 %; Hemoglobin 12.4 g/dL (11.5-15.3); Lymphocytes # 2.1 10^3/uL (0.8-4.8); Lymphocytes % 15.9 %; Mean Corpuscular HGB Conc 28.2 g/dL (30.0-36.0); Mean Corpuscular Hemoglobin 20.5 pg (28.0-34.0); Mean Corpuscular Volume 72.7 fl (81-99); Mean Platelet Volume 8.8 fL (7.4-10.4); Monocytes # 1.3 10^3/uL (0.2-0.9); Monocytes % 9.8 %; Neutrophils # 9.25 10^3/uL (1.8-7.7); Neutrophils % 69.9 %; Nucleated Red Blood Cells # 0.1 /100WBC; Nucleated Red Blood Cells % 0.5 %; Platelet Count 212 10^3/cmm (130-400); Red Blood Count 6.05 10^6/uL (4.1-5.3); Red Cell Distribution Width 23.8 % (12.1-15.1); White Blood Count 13.2 10^3/uL (4.0-10.0)
[2022-06-15 14:47] LABS: Anion Gap 14.7 (5-19); Blood Urea Nitrogen 14 mg/dL (8-23); Calcium 9.3 mg/dL (8.5-10.5); Carbon Dioxide 27 mmol/L (22-29); Chloride 99 mmol/L (98-107); Glomerular Filtration Rate 71.1 mL/min (90-130); Glucose 82 mg/dL (65-115); Osmolality Calculated 284 mOsm/kg (285-295); Potassium 3.7 mmol/L (3.5-5.1); Sodium 137 mmol/L (136-145)
== END 2022-06-15 13:32 | disposition home or self-care (01) ==
LOC: LAB 13:32
PROVIDERS: PCP Family Medicine; Visit Provider Family Medicine
DX: N18.31 Chronic kidney disease, stage 3a (principal)
CPT/HCPCS: 80048; 85025

== ENCOUNTER 2022-06-17 13:40 | Outpatient (CLI) | payer MEDICARE, OTHER, SELFPAY ==
[2022-06-17 13:55] LABS: Basophils # 0.1 10^3/uL (0.0-0.1); Basophils % 0.7 %; Eosinophils # 0.3 10^3/uL (0.0-0.8); Eosinophils % 1.8 %; Hematocrit 41.7 % (37.0-47.0); Hemoglobin 11.7 g/dL (11.5-15.3); Lymphocytes % 11.3 %; Mean Corpuscular HGB Conc 28.1 g/dL (30.0-36.0); Mean Corpuscular Hemoglobin 20.5 pg (28.0-34.0); Mean Platelet Volume 8.9 fL (7.4-10.4); Monocytes # 2.1 10^3/uL (0.2-0.9); Monocytes % 11.9 %; Neutrophils # 12.05 10^3/uL (1.8-7.7); Neutrophils % 69.5 %; Nucleated Red Blood Cells # 0.1 /100WBC; Nucleated Red Blood Cells % 0.6 %; Platelet Count 214 10^3/cmm (130-400); Red Blood Count 5.71 10^6/uL (4.1-5.3); Red Cell Distribution Width 23.4 % (12.1-15.1); White Blood Count 17.4 10^3/uL (4.0-10.0)
[2022-06-17 14:16] LABS: Blood Urea Nitrogen 12 mg/dL (8-23); Calcium 9.2 mg/dL (8.5-10.5); Carbon Dioxide 26 mmol/L (22-29); Chloride 101 mmol/L (98-107); Glomerular Filtration Rate 71.1 mL/min (90-130); Glucose 124 mg/dL (65-115); Osmolality Calculated 283 mOsm/kg (285-295); Sodium 136 mmol/L (136-145)
[2022-06-17 14:22] LABS: Anion Gap 13.6 (5-19); Potassium 4.6 mmol/L (3.5-5.1)
== END 2022-06-17 13:41 | disposition home or self-care (01) ==
LOC: LAB 13:40
PROVIDERS: PCP Family Medicine; Visit Provider Family Medicine
DX: N18.31 Chronic kidney disease, stage 3a (principal); I48.0 Paroxysmal atrial fibrillation
CPT/HCPCS: 80048; 85025

== ENCOUNTER 2022-06-20 13:23 | Outpatient (CLI) | payer MEDICARE, OTHER, SELFPAY ==
[2022-06-20 13:52] LABS: Basophils # 0.1 10^3/uL (0.0-0.1); Basophils % 0.5 %; Eosinophils # 0.2 10^3/uL (0.0-0.8); Eosinophils % 1.3 %; Hematocrit 43.6 % (37.0-47.0); Hemoglobin 12.1 g/dL (11.5-15.3); Lymphocytes # 1.7 10^3/uL (0.8-4.8); Lymphocytes % 12.2 %; Mean Corpuscular HGB Conc 27.8 g/dL (30.0-36.0); Mean Corpuscular Hemoglobin 20.5 pg (28.0-34.0); Mean Corpuscular Volume 73.9 fl (81-99); Monocytes # 1.3 10^3/uL (0.2-0.9); Monocytes % 9.2 %; Neutrophils # 10.13 10^3/uL (1.8-7.7); Neutrophils % 71.9 %; Nucleated Red Blood Cells # 0.1 /100WBC; Nucleated Red Blood Cells % 0.8 %; Platelet Count 234 10^3/cmm (130-400); Red Cell Distribution Width 24.4 % (12.1-15.1); White Blood Count 14.1 10^3/uL (4.0-10.0)
[2022-06-20 14:17] LABS: Anion Gap 17.8 (5-19); Blood Urea Nitrogen 21 mg/dL (8-23); Calcium 8.8 mg/dL (8.5-10.5); Carbon Dioxide 23 mmol/L (22-29); Chloride 98 mmol/L (98-107); Glomerular Filtration Rate 71.1 mL/min (90-130); Glucose 136 mg/dL (65-115); Osmolality Calculated 283 mOsm/kg (285-295); Potassium 4.8 mmol/L (3.5-5.1); Sodium 134 mmol/L (136-145)
== END 2022-06-20 13:24 | disposition home or self-care (01) ==
LOC: LAB 13:25
PROVIDERS: PCP Family Medicine; Visit Provider Family Medicine
DX: N18.31 Chronic kidney disease, stage 3a (principal)
CPT/HCPCS: 80048; 85025

== ENCOUNTER 2022-06-22 13:05 | Outpatient (CLI) | payer MEDICARE, OTHER, SELFPAY ==
[2022-06-22 14:49] LABS: Basophils % 0.3 %; Eosinophils # 0.1 10^3/uL (0.0-0.8); Eosinophils % 0.5 %; Hematocrit 43.5 % (37.0-47.0); Hemoglobin 12.3 g/dL (11.5-15.3); Lymphocytes # 1.1 10^3/uL (0.8-4.8); Lymphocytes % 7.3 %; Mean Corpuscular HGB Conc 28.3 g/dL (30.0-36.0); Mean Corpuscular Hemoglobin 20.9 pg (28.0-34.0); Mean Platelet Volume 9.6 fL (7.4-10.4); Monocytes # 1.4 10^3/uL (0.2-0.9); Monocytes % 8.7 %; Neutrophils # 12.71 10^3/uL (1.8-7.7); Neutrophils % 81.8 %; Nucleated Red Blood Cells % 0.1 %; Platelet Count 268 10^3/cmm (130-400); Red Blood Count 5.88 10^6/uL (4.1-5.3); Red Cell Distribution Width 24.5 % (12.1-15.1); White Blood Count 15.5 10^3/uL (4.0-10.0)
[2022-06-22 15:18] LABS: Anion Gap 19.4 (5-19); Blood Urea Nitrogen 29 mg/dL (8-23); Calcium 9.2 mg/dL (8.5-10.5); Carbon Dioxide 23 mmol/L (22-29); Chloride 93 mmol/L (98-107); Glomerular Filtration Rate 62.1 mL/min (90-130); Glucose 161 mg/dL (65-115); Osmolality Calculated 281 mOsm/kg (285-295); Potassium 4.4 mmol/L (3.5-5.1); Sodium 131 mmol/L (136-145)
== END 2022-06-22 13:06 | disposition home or self-care (01) ==
PROVIDERS: PCP Family Medicine; Visit Provider Family Medicine
DX: N18.31 Chronic kidney disease, stage 3a (principal); I48.0 Paroxysmal atrial fibrillation
CPT/HCPCS: 80048; 85025

== ENCOUNTER 2022-06-24 12:57 | Outpatient (CLI) | payer MEDICARE, OTHER, SELFPAY ==
[2022-06-24 13:26] LABS: Basophils # 0.1 10^3/uL (0.0-0.1); Basophils % 0.3 %; Eosinophils # 0.2 10^3/uL (0.0-0.8); Eosinophils % 1.3 %; Hematocrit 43.7 % (37.0-47.0); Hemoglobin 12.2 g/dL (11.5-15.3); Lymphocytes # 1.8 10^3/uL (0.8-4.8); Lymphocytes % 11.4 %; Mean Corpuscular HGB Conc 27.9 g/dL (30.0-36.0); Mean Corpuscular Hemoglobin 20.6 pg (28.0-34.0); Mean Corpuscular Volume 73.9 fl (81-99); Mean Platelet Volume 8.8 fL (7.4-10.4); Monocytes # 1.6 10^3/uL (0.2-0.9); Monocytes % 10.2 %; Neutrophils # 11.63 10^3/uL (1.8-7.7); Neutrophils % 75.3 %; Nucleated Red Blood Cells % 0 %; Platelet Count 319 10^3/cmm (130-400); Red Blood Count 5.91 10^6/uL (4.1-5.3); Red Cell Distribution Width 24.1 % (12.1-15.1); White Blood Count 15.5 10^3/uL (4.0-10.0)
[2022-06-24 13:48] LABS: Alanine Aminotransferase 25 U/L (0-33); Albumin Level 3.8 g/dL (3.5-5.2); Alkaline Phosphatase 108 U/L (35-105); Aspartate Amino Transferase 11 U/L (0-32); Blood Urea Nitrogen 20 mg/dL (8-23); Calcium 9.1 mg/dL (8.5-10.5); Carbon Dioxide 23 mmol/L (22-29); Chloride 100 mmol/L (98-107); Globulin 2.8 g/dL (1.3-4.6); Glomerular Filtration Rate 62.1 mL/min (90-130); Glucose 89 mg/dL (65-115); Osmolality Calculated 280 mOsm/kg (285-295); Sodium 134 mmol/L (136-145); Total Bilirubin 0.3 mg/dL (0.15-1.2); Total Protein 6.6 g/dL (6.6-8.7)
[2022-06-24 13:56] LABS: Add Urine Microscopic? YES; Bilirubin Urine Neg (Negative); Blood Urine 3+ (Negative); Glucose Urine UA 4+ (Normal); Ketones Urine Negative (Negative); Leukocyte Esterase Urine Negative (Negative); Nitrate Urine Negative (Negative); Protein Urine Neg (Negative); Urine Appearance Hazy (CLEAR); Urine Color Yellow (Yellow); Urobilinogen Urine Norm (Negative); pH Urine 6.5 (5-7)
[2022-06-24 13:57] LABS: Bacteria Urine TRACE /hpf; RBC Urine 0-4 /hpf (0-2); Squamous Epithelial Cell Urine 0-4 /hpf (0-5)
== END 2022-06-24 12:58 | disposition home or self-care (01) ==
PROVIDERS: PCP Family Medicine; Visit Provider Family Medicine
DX: N18.31 Chronic kidney disease, stage 3a (principal); I48.0 Paroxysmal atrial fibrillation
CPT/HCPCS: 80053; 81001; 85025; 87077; 87086; 87186

== ENCOUNTER 2022-06-27 16:28 | Outpatient (CLI) | payer MEDICARE, OTHER, SELFPAY ==
[2022-06-27 16:59] LABS: Basophils # 0.1 10^3/uL (0.0-0.1); Basophils % 0.3 %; Eosinophils # 0.2 10^3/uL (0.0-0.8); Hematocrit 46.2 % (37.0-47.0); Hemoglobin 12.9 g/dL (11.5-15.3); Lymphocytes # 1.2 10^3/uL (0.8-4.8); Lymphocytes % 6.7 %; Mean Corpuscular HGB Conc 27.9 g/dL (30.0-36.0); Mean Corpuscular Hemoglobin 20.9 pg (28.0-34.0); Mean Corpuscular Volume 74.8 fl (81-99); Mean Platelet Volume 9.3 fL (7.4-10.4); Monocytes # 1.3 10^3/uL (0.2-0.9); Monocytes % 7.5 %; Neutrophils # 14.23 10^3/uL (1.8-7.7); Neutrophils % 82.3 %; Nucleated Red Blood Cells % 0 %; Platelet Count 367 10^3/cmm (130-400); Red Blood Count 6.18 10^6/uL (4.1-5.3); Red Cell Distribution Width 24.8 % (12.1-15.1); White Blood Count 17.3 10^3/uL (4.0-10.0)
[2022-06-27 17:28] LABS: Alanine Aminotransferase 28 U/L (0-33); Alkaline Phosphatase 122 U/L (35-105); Anion Gap 17.1 (5-19); Aspartate Amino Transferase 14 U/L (0-32); Blood Urea Nitrogen 18 mg/dL (8-23); Calcium 9.5 mg/dL (8.5-10.5); Carbon Dioxide 23 mmol/L (22-29); Chloride 97 mmol/L (98-107); Globulin 2.3 g/dL (1.3-4.6); Glomerular Filtration Rate 71.1 mL/min (90-130); Glucose 124 mg/dL (65-115); Osmolality Calculated 279 mOsm/kg (285-295); Potassium 4.1 mmol/L (3.5-5.1); Sodium 133 mmol/L (136-145); Total Bilirubin 0.3 mg/dL (0.15-1.2); Total Protein 6.3 g/dL (6.6-8.7)
== END 2022-06-27 16:29 | disposition home or self-care (01) ==
LOC: LAB 16:31
PROVIDERS: PCP Family Medicine; Visit Provider Family Medicine
DX: Z01.89 Encounter for other specified special examinations (principal)
CPT/HCPCS: 80053; 85025

== ENCOUNTER 2022-07-01 13:40 | Outpatient (CLI) | payer MEDICARE, OTHER, SELFPAY ==
[2022-07-01 13:54] LABS: Basophils # 0.1 10^3/uL (0.0-0.1); Basophils % 0.4 %; Eosinophils # 0.1 10^3/uL (0.0-0.8); Eosinophils % 0.9 %; Hematocrit 45.9 % (37.0-47.0); Hemoglobin 12.8 g/dL (11.5-15.3); Lymphocytes # 1.7 10^3/uL (0.8-4.8); Lymphocytes % 11.3 %; Mean Corpuscular HGB Conc 27.9 g/dL (30.0-36.0); Mean Corpuscular Hemoglobin 20.6 pg (28.0-34.0); Mean Corpuscular Volume 73.8 fl (81-99); Mean Platelet Volume 9.3 fL (7.4-10.4); Monocytes # 1.6 10^3/uL (0.2-0.9); Monocytes % 10.8 %; Neutrophils # 11.24 10^3/uL (1.8-7.7); Neutrophils % 74.5 %; Nucleated Red Blood Cells % 0.1 %; Platelet Count 378 10^3/cmm (130-400); Red Blood Count 6.22 10^6/uL (4.1-5.3); Red Cell Distribution Width 24.5 % (12.1-15.1); White Blood Count 15.1 10^3/uL (4.0-10.0)
[2022-07-01 14:18] LABS: Blood Urea Nitrogen 18 mg/dL (8-23); Calcium 9.2 mg/dL (8.5-10.5); Carbon Dioxide 25 mmol/L (22-29); Chloride 99 mmol/L (98-107); Glomerular Filtration Rate 71.1 mL/min (90-130); Glucose 97 mg/dL (65-115); Osmolality Calculated 286 mOsm/kg (285-295); Sodium 137 mmol/L (136-145)
[2022-07-01 14:22] LABS: Anion Gap 17.3 (5-19); Potassium 4.3 mmol/L (3.5-5.1)
== END 2022-07-01 13:41 | disposition home or self-care (01) ==
LOC: LAB 13:43
PROVIDERS: PCP Family Medicine; Visit Provider Family Medicine
DX: Z01.89 Encounter for other specified special examinations (principal)
CPT/HCPCS: 80048; 85025

== ENCOUNTER 2022-07-04 12:09 | Outpatient (CLI) | payer MEDICARE, OTHER, SELFPAY ==
[2022-07-04 13:28] LABS: Basophils # 0.1 10^3/uL (0.0-0.1); Basophils % 0.4 %; Eosinophils # 0.1 10^3/uL (0.0-0.8); Eosinophils % 0.9 %; Hematocrit 45.1 % (37.0-47.0); Hemoglobin 12.5 g/dL (11.5-15.3); Lymphocytes # 1.6 10^3/uL (0.8-4.8); Lymphocytes % 10.3 %; Mean Corpuscular HGB Conc 27.7 g/dL (30.0-36.0); Mean Corpuscular Volume 75.8 fl (81-99); Mean Platelet Volume 9.5 fL (7.4-10.4); Monocytes # 1.2 10^3/uL (0.2-0.9); Monocytes % 7.7 %; Neutrophils # 12.03 10^3/uL (1.8-7.7); Neutrophils % 76.7 %; Nucleated Red Blood Cells % 0.2 %; Platelet Count 322 10^3/cmm (130-400); Red Blood Count 5.95 10^6/uL (4.1-5.3); Red Cell Distribution Width 24.6 % (12.1-15.1); White Blood Count 15.7 10^3/uL (4.0-10.0)
[2022-07-04 13:44] LABS: Anion Gap 16.4 (5-19); Blood Urea Nitrogen 17 mg/dL (8-23); Carbon Dioxide 26 mmol/L (22-29); Chloride 98 mmol/L (98-107); Glomerular Filtration Rate 71.1 mL/min (90-130); Glucose 117 mg/dL (65-115); Osmolality Calculated 285 mOsm/kg (285-295); Potassium 4.4 mmol/L (3.5-5.1); Sodium 136 mmol/L (136-145)
[2022-07-04 14:17] LABS: Bilirubin Urine Neg (Negative); Blood Urine 2+ (Negative); Glucose Urine UA 4+ (Normal); Ketones Urine Negative (Negative); Leukocyte Esterase Urine Negative (Negative); Nitrate Urine Negative (Negative); Protein Urine Neg (Negative); Urine Appearance Clear (CLEAR); Urine Color Yellow (Yellow); Urobilinogen Urine Norm (Negative); pH Urine 7 (5-7)
[2022-07-04 14:18] LABS: Add Urine Microscopic? YES
[2022-07-04 14:20] LABS: Bacteria Urine TRACE /hpf; Mucus Urine TRACE /hpf; Squamous Epithelial Cell Urine 0-4 /hpf (0-5); WBC Urine 0-4 /hpf (0-5)
[2022-07-04 14:23] LABS: Add Urine Culture? No
== END 2022-07-04 12:10 | disposition home or self-care (01) ==
PROVIDERS: PCP Family Medicine; Visit Provider Family Medicine
DX: N18.31 Chronic kidney disease, stage 3a (principal); I48.0 Paroxysmal atrial fibrillation
CPT/HCPCS: 80048; 81001; 85025; 87077; 87086; 87186

== ENCOUNTER 2022-07-06 11:48 | Outpatient (CLI) | payer MEDICARE, OTHER, SELFPAY ==
[2022-07-06 12:02] LABS: Basophils % 0.3 %; Eosinophils % 0.2 %; Hematocrit 46.8 % (37.0-47.0); Hemoglobin 13.1 g/dL (11.5-15.3); Lymphocytes # 0.8 10^3/uL (0.8-4.8); Lymphocytes % 5.3 %; Mean Corpuscular Hemoglobin 21.3 pg (28.0-34.0); Mean Corpuscular Volume 76.1 fl (81-99); Mean Platelet Volume 9.5 fL (7.4-10.4); Monocytes # 0.9 10^3/uL (0.2-0.9); Monocytes % 5.4 %; Neutrophils # 13.64 10^3/uL (1.8-7.7); Neutrophils % 86.7 %; Nucleated Red Blood Cells % 0 %; Platelet Count 294 10^3/cmm (130-400); Red Blood Count 6.15 10^6/uL (4.1-5.3); Red Cell Distribution Width 24.8 % (12.1-15.1); White Blood Count 15.7 10^3/uL (4.0-10.0)
[2022-07-06 12:33] LABS: Blood Urea Nitrogen 15 mg/dL (8-23); Calcium 9.1 mg/dL (8.5-10.5); Carbon Dioxide 26 mmol/L (22-29); Chloride 99 mmol/L (98-107); Glucose 145 mg/dL (65-115); Osmolality Calculated 281 mOsm/kg (285-295); Sodium 134 mmol/L (136-145)
[2022-07-06 12:36] LABS: Anion Gap 14.3 (5-19); Potassium 5.3 mmol/L (3.5-5.1)
== END 2022-07-06 11:49 | disposition home or self-care (01) ==
LOC: LAB 11:49
PROVIDERS: PCP Family Medicine; Visit Provider Family Medicine
DX: N18.31 Chronic kidney disease, stage 3a (principal); I48.0 Paroxysmal atrial fibrillation
CPT/HCPCS: 80048; 85025

== ENCOUNTER 2022-07-07 10:17 | Emergency (ER) | payer MEDICARE, OTHER, SELFPAY ==
[2022-07-07 11:18] VITALS: BP 156/78; PULSE 71; RESP 18; TEMP 36.1; O2SAT 98; BMI 53.8
[2022-07-07 12:04] LABS: Basophils % 0.2 %; Eosinophils % 0.2 %; Hematocrit 48.2 % (37.0-47.0); Hemoglobin 13.5 g/dL (11.5-15.3); Lymphocytes # 0.6 10^3/uL (0.8-4.8); Lymphocytes % 2.9 %; Mean Corpuscular Hemoglobin 21.1 pg (28.0-34.0); Mean Corpuscular Volume 75.2 fl (81-99); Mean Platelet Volume 9.1 fL (7.4-10.4); Monocytes # 1.3 10^3/uL (0.2-0.9); Monocytes % 6.8 %; Neutrophils # 17.14 10^3/uL (1.8-7.7); Neutrophils % 87.8 %; Nucleated Red Blood Cells % 0 %; Platelet Count 303 10^3/cmm (130-400); Red Blood Count 6.41 10^6/uL (4.1-5.3); Red Cell Distribution Width 24.6 % (12.1-15.1); White Blood Count 19.5 10^3/uL (4.0-10.0)
[2022-07-07 12:21] LABS: Alanine Aminotransferase 30 U/L (0-33); Albumin Level 4.1 g/dL (3.5-5.2); Alkaline Phosphatase 106 U/L (35-105); Anion Gap 17.5 (5-19); Aspartate Amino Transferase 10 U/L (0-32); Blood Urea Nitrogen 19 mg/dL (8-23); Calcium 9.5 mg/dL (8.5-10.5); Carbon Dioxide 26 mmol/L (22-29); Chloride 94 mmol/L (98-107); Globulin 2.8 g/dL (1.3-4.6); Glomerular Filtration Rate 71.1 mL/min (90-130); Glucose 221 mg/dL (65-115); Osmolality Calculated 285 mOsm/kg (285-295); Potassium 4.5 mmol/L (3.5-5.1); Sodium 133 mmol/L (136-145); Total Bilirubin 0.4 mg/dL (0.15-1.2); Total Protein 6.9 g/dL (6.6-8.7)
--- NOTE | 2022-07-07 13:13 | XR_ITS ---
WS: [id number] EXAMINATION: XR chest 1V portable [id number] REASON FOR EXAM: dyspnea/cough ORDER DATE: 07/07/2022 1:16 PM COMPARISON: 06/01/2022 FINDINGS: There are perihilar and parenchymal granulomatous calcifications. Cardiomegaly is demonstrated. Ther e is an atherosclerotic aorta containing calcified plaque. There are no pleural effusions. XR/XR chest 1V portable [id number] IMPRESSION: CARDIOMEGALY WITH NO ACUTE PULMONARY CHANGE.
--- NOTE | 2022-07-07 13:18 | W.ED.FEMALGU ---
HPI - Female Genitourinary General: Chief complaint: Urogenital-Female Stated complaint: abn labs Time Seen by Provider: 07/07/22 13:12 Source: patient Mode of arrival: ambulatory History of Present Illness: 71-year-old female who presents emergency room from her primary care doctor's office. Patient is morbidly obese has a history of diabetes mellitus previously was on Ozempic and torsemide. Patient has multiple allergies. She also has a history of pituitary adenoma with a recurrence both of which were surgically resected she is on Decadron 1 mg daily. She was directed the emergency room because of a highly resistant UTI. Reviewing chart patient hadUrine cultures done large 31 which showed Proteus mirabilis this is susceptible only to Zosyn. She subsequently had Enterobacter cloacae on a urine culture that was done on 410. This alone is susceptible to ceftriaxone. She has had E. coli ESBL in the past. She is scheduled to have a biventricular pacemaker placed but they have the delayed the surgery because of the bladder infections. MD elicited complaint: UTI Onset (ago): week(s) Severity: moderate Exacerbating factors: none Relieving factors: none Associated symptoms: Reports vaginal discharge; Deny abdominal pain, short of breath, fevers/chills, headache(s), nausea, rash, seizures, syncope, vaginal bleeding or weakness Treatment prior to arrival: none Review of Systems Const: Denies: fever(s), chills, body aches, change in appetite, fatigue or malaise ENMT: Denies: throat pain, ear or mastoid pain, nasal discharge or nasal congestion Card: Denies: syncope Resp: Denies: dyspnea, productive cough or non-productive cough GI: Denies: abdominal pain or nausea : Reports: vaginal discharge Skin/Breast: Denies: rash or pruritus Neuro: Denies: headache(s) PFSH ED PFSH: Medical History (Updated 07/09/22 @ 17:48 by Jarvis Cormier MD) Acute hypercapnic respiratory failure Acute kidney injury superimposed on chronic kidney disease Acute kidney injury superimposed on CKD Adrenal insufficiency Anasarca Anemia Atrial fibrillation Benign essential hypertension with target blood pressure below 140/90 Central hypothyroidism CHF (congestive heart failure) Chronic back pain Follows at pain clinic for periodic injections Chronic hyponatremia Colitis COVID-19 (~09/2020) Diastolic heart failure Edema ESBL (extended spectrum beta-lactamase) producing bacteria infection Facet arthritis, degenerative, lumbar spine Fatigue Gastroenteritis History of adrenal insufficiency History of anaphylaxis History of atrial fibrillation Intermittent, has not required long-term anticoagulation or focused treatment History of COVID-19 HTN (hypertension) Hx of atrial fibrillation, no current medication Hyperaldosteronism Hypokalemia Hypomagnesemia Hypophosphatemia 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 Increased nausea and vomiting VINNY-2 gene mutation Lumbar spondylolysis Metabolic acidosis Nausea vomiting and diarrhea OAB (overactive bladder) Obesity Obesity, morbid, BMI 50 or higher Obstructive sleep apnea KP (obstructive sleep apnea) Paroxysmal atrial fibrillation Pituitary macroadenoma with extrasellar extension Polycythemia vera Prediabetes Pulmonary hypertension PVD (peripheral vascular disease) Shock Stasis edema with ulcer and inflammation Steroid dependence Tachycardia Type 2 diabetes mellitus with other diabetic kidney complication Unsteady gait UTI (urinary tract infection) Venous (peripheral) insufficiency Volume overload VT (ventricular tachycardia) Surgical History H/O shoulder surgery History of hysterectomy History of pituitary surgery S/P insertion of spinal cord stimulator Family History Father Cancer pancreatic cancer Sister No problems noted. 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 Physical Exam Const: COMMON NORMALS: no acute distress GENERAL APPEARANCE: cooperative and comfortable ORIENTATION/CONSCIOUSNESS: Yes awake, Yes oriented to person, Yes oriented to place and Yes oriented to time HENMT: COMMON NORMALS: normocephalic, atraumatic and hearing grossly normal bilaterally HEAD & SCALP: normocephalic and atraumatic Resp: COMMON NORMALS: normal respiratory effort, No retractions, No use of accessory muscles and clear to auscultation bilaterally AUSCULTATION: clear to auscultation bilaterally Cardio: COMMON NORMALS: regular rate, regular rhythm and No murmurs present (Cardio) RATE: regular rate RHYTHM: regular rhythm GI: COMMON NORMALS: Soft to palpation and No hepatosplenomegaly present AUSCULTATION: Yes normoactive bowel sounds PALPATION: Yes Soft to palpation, No Tenderness to palpation present (GI), No Guarding due to palpation present (GI) and Yes No hepatosplenomegaly present : SPECULUM EXAM - VAGINA: No vaginal bleeding OB/EXTERNAL & SPECULUM: No vaginal bleeding Extremity: COMMON NORMALS: normal to inspection, capillary refill normal, no clubbing, cyanosis or edema, no calf tenderness and no pedal edema Neuro: SENSORIUM/ORIENTATION: Yes oriented to person, Yes oriented to place and Yes oriented to time Skin: COMMON NORMALS: no rashes or lesions noted GENERAL SKIN EXAM: no rashes or lesions noted Course Vital Signs: Vital signs: Vital Signs Temperature 96.9 F L 07/07/22 11:18 Pulse Rate 70 07/07/22 14:28 Respiratory Rate 14 07/07/22 14:28 Blood Pressure 191/105 07/07/22 14:28 Pulse Oximetry 97 07/07/22 14:28 Oxygen Delivery Me thod Room Air 07/07/22 14:28 MDM - Female Medical Decision Making Discussed with infectious disease they feel that she is likely colonized given the multiple various bacteria that have come back. They do not feel antibiotics are indicated at this time. They recommend against any further antibiotics and recommend referral to infectious disease and urology. Urine today does not show any sign of infection shows RBCs. Reviewed previous urines has not been a true positive urine since April. Dr. Guardado felt the other urines and reviewed the chart together were result of culture. She is afebrile at this time. Generally feeling well and no specific complaints. Will discharge home set up for ID and urology. Noted to have lactic acid was slightly elevated on repeat was in normal range. Since she is not tachycardic and not hypotensive and otherwise nonseptic do not believe she is septic at this time. Medical Records I reviewed the patient's medical records. Lab Data I reviewed the patient's lab results. 07/07/22 11:55 07/07/22 11:55 Radiology Impressions Chest X-Ray 07/07/22 13:13 IMPRESSION: CARDIOMEGALY WITH NO ACUTE PULMONARY CHANGE. Laboratory Results WBC 19.5 10^3/uL (4.0-10.0) H 07/07/22 11:55 RBC 6.41 10^6/uL (4.1-5.3) H 07/07/22 11:55 Hgb 13.5 g/dL (11.5-15.3) 07/07/22 11:55 Hct 48.2 % (37.0-47.0) H 07/07/22 11:55 MCV 75.2 fl (81-99) L 07/07/22 11:55 MCH 21.1 pg (28.0-34.0) L 07/07/22 11:55 MCHC 28.0 g/dL (30.0-36.0) L 07/07/22 11:55 RDW 24.6 % (12.1-15.1) H 07/07/22 11:55 Plt Count 303 10^3/cmm (130-400) 07/07/22 11:55 MPV 9.1 fL (7.4-10.4) 07/07/22 11:55 Neut % (Auto) 87.8 % 07/07/22 11:55 Lymph % (Auto) 2.9 % 07/07/22 11:55 [place] % (Auto) 6.8 % 07/07/22 11:55 Eos % (Auto) 0.2 % 07/07/22 11:55 Baso % (Auto) 0.2 % 07/07/22 11:55 Neut # (Auto) 17.14 10^3/uL (1.8-7.7) H 07/07/22 11:55 Lymph # (Auto) 0.6 10^3/uL (0.8-4.8) L 07/07/22 11:55 [place] # (Auto) 1.3 10^3/uL (0.2-0.9) H 07/07/22 11:55 Eos # (Auto) 0.0 10^3/uL (0.0-0.8) 07/07/22 11:55 Baso # (Auto) 0.0 10^3/uL (0.0-0.1) 07/07/22 11:55 Nucleated RBC % (auto) 0 % 07/07/22 11:55 Nucleated RBCs # 0.0 /100WBC 07/07/22 11:55 Sodium 133 mmol/L (136-145) L 07/07/22 11:55 Potassium 4.5 mmol/L (3.5-5.1) 07/07/22 11:55 Chloride 94 mmol/L (98-107) L 07/07/22 11:55 Carbon Dioxide 26 mmol/L (22-29) 07/07/22 11:55 Anion Gap 17.5 (5-19) 07/07/22 11:55 BUN 19 mg/dL (8-23) 07/07/22 11:55 Creatinine 0.8 mg/dL (0.5-0.9) 07/07/22 11:55 GFR Calculation 71.1 mL/min (90-130) L 07/07/22 11:55 Glucose 221 mg/dL (65-115) H 07/07/22 11:55 Calculated Osmolality 285 mOsm/kg (285-295) 07/07/22 11:55 Lactic Acid 2.5 mmol/L (0.5-2.2) H 07/07/22 13:42 Lactic Acid (Sepsis) 2.0 mmol/L (0.5-2.2) 07/07/22 13:50 Calcium 9.5 mg/dL (8.5-10.5) 07/07/22 11:55 Total Bilirubin 0.4 mg/dL (0.15-1.2) 07/07/22 11:55 AST 10 U/L (0-32) 07/07/22 11:55 ALT 30 U/L (0-33) 07/07/22 11:55 Alkaline Phosphatase 106 U/L (35-105) H 07/07/22 11:55 Total Protein 6.9 g/dL (6.6-8.7) 07/07/22 11:55 Albumin 4.1 g/dL (3.5-5.2) 07/07/22 11:55 Globulin 2.8 g/dL (1.3-4.6) 07/07/22 11:55 Urine Color Yellow (Yellow) 07/07/22 14:26 Urine Appearance Clear (CLEAR) 07/07/22 14:26 Urine pH 6.5 (5-7) 07/07/22 14:26 Ur Specific Bone Gap 1.015 (1.005-1.030) 07/07/22 14:26 Urine Protein Neg (Negative) 07/07/22 14:26 Urine Glucose (UA) 4+ (Normal) H 07/07/22 14:26 Urine Ketones Negative (Negative) 07/07/22 14:26 Urine Blood 3+ (Negative) H 07/07/22 14:26 Urine Nitrate Negative (Negative) 07/07/22 14:26 Urine Bilirubin Neg (Negative) 07/07/22 14:26 Urine Urobilinogen Neg mg/dL (Negative) 07/07/22 14:26 Ur Leukocyte Esterase Negative (Negative) 07/07/22 14:26 Urine RBC 50-80 /hpf (0-2) H 07/07/22 14:26 Urine WBC 0-4 /hpf (0-5) H 07/07/22 14:26 Ur Squamous Epith Cells 0-4 /hpf (0-5) H 07/07/22 14:26 Amorphous Sediment Not Reportable 07/07/22 14:26 Urine Bacteria Trace /hpf (NONE) 07/07/22 14:26 Urine Mucus Trace /hpf 07/07/22 14:26 Discharge Plan Discharge Patient Disposition: Home Clinical Impression: Colonization status, Diabetes, Vaginal yeast infection, Leukocytosis Condition: Stable Prescriptions: No Action (DME) Pharmacist Choice Strip See Rx Instructions .Route Qty: 50 2RF Rx Instructions: AC and HS bumetanide 1 mg tablet 2 mg PO BID PRN (Reason: Edema) Qty: 30 3RF dexamethasone 1 mg tablet 1 mg PO QAM Qty: 30 2RF diltiazem HCl 300 mg capsule,extended release 24hr 300 mg PO QAM Qty: 30 3RF levothyroxine 175 mcg tablet 175 mcg PO QAM 90 Days Qty: 90 1RF pantoprazole [Protonix] 40 mg tablet,delayed release (DR/EC) 40 mg PO BEDTIME Qty: 30 3RF pramipexole [Mirapex] 0.5 mg tablet 1 mg PO BEDTIME Qty: 30 4RF potassium chloride [Klor-Con M20] 20 mEq tablet,ER particles/crystals 20 meq PO BID PRN (Reason: low potassium) Qty: 30 3RF Rx Instructions: dose gets adjusted on mon,wed and fri neomycin-polymyxin B-dexameth [Maxitrol] 3.5mg/mL-10,000 unit/mL-0.1 % drops,suspension 1 drp ophthalmic (eye) Q12H Qty: 5 0RF (DME) blood-glucose meter,continuous Misc See Rx Instructions .Route Qty: 1 0RF Rx Instructions: As directed one meter with all necessary supplies (DME) cpap mask and supplies See Rx Instructions .Route .MEDSUPPLY Qty: 1 0RF Rx Instructions: As directed spironolactone 50 mg tablet 50 mg PO BID Qty: 60 2RF Rx Instructions: Dose change Antibiotic (ywgzj-yhght-tmesg) 3.5mg-400 unit- 5,000 unit/gram ointment 1 applic topical QID 5 Days Qty: 14 0RF (DME) diabetic supplies, miscellan. Misc See Rx Instructions .Route Qty: 1 0RF Rx Instructions: As directed polyethylene glycol 3350 [Miralax] 17 gram/dose Powder 17 g PO DAILY PRN (Reason: Constipation) lactulose 10 gram/15 mL solution 30 ml PO BID PRN (Reason: Constipation) Eliquis 5 mg tablet 5 mg PO BID ondansetron HCl [Zofran] 8 mg Tablet 8 mg PO Q8H PRN (Reason: Nausea And Vomiting) Victoza 3-Nabeel 0.6 mg/0.1 mL (18 mg/3 mL) pen injector 1.8 mg SUBCUT QAM Rx Instructions: (not started as of 07/07/22) Discharge Orders: Discharge ED (Routine); Ordered 07/07/22 Ordered By: Shiraz Colon Referrals: Piedad Sandhu MD [Primary Care Provider] - Discharge Diet: Usual diet Discharge Activity: Resume usual activity Patient Instructions: Opioid Safety, Pain Management Activity Restrictions/Additional Instructions: You were seen today for concerns about a bladder infection. After thorough review of her chart and discussion with infectious disease it appears that your urinary tract is colonized. You do not appear to have an acute urinary tract infection at this time. Will recommend referral to ID and urology. Coding Level of Care Code ED [employer] for Duarte Molina
--- NOTE | 2022-07-07 13:40 | ECG_ITS ---
[facility] Test Date: 2022-07-07 Pat Name: Carolyn Alexander Department: Room: Gender: Female Lugger: : 1950 Requested By: Shiraz Baez Order Number: [id number] Laina MD: Chris Sellers M.D. Measurements Intervals [place] Rate: 69 P: 79 [place]: 157 QRS: -48 QRSD: 85 T: 70 QT: 388 QTc: 418 Interpretive Statements SINUS RHYTHM LOW QRS VOLTAGE IN PRECORDIAL LEADS [QRS DEFLECTION < 1.0 mV IN CHEST LEADS] LEFT ANTERIOR FASCICULAR BLOCK [QRS AXIS <= -45, QR IN I, RS IN II] POSSIBLE ANTERIOR MYOCARDIAL INFARCTION , PROBABLY OLD [30 ms Q WAVE IN V3/V4, OR R < 0.2 mV IN V4] Compared to ECG 05/09/2022 04:26:44 Left anterior fascicular block now present Atrial fibrillation no longer present Myocardial infarct finding still present Electronically Signed On 07-07-2022 21:08:19 CDT by Chris Sellers M.D. [email or web address]
--- NOTE | 2022-07-07 14:18 | PC.PHAR ---
pt states she takes care of her own medications-pt states she no longer takes ozempic pt states last had last monday-pt states it was changed to victoza 1.8mg qam but states she hasnt started taking as of 07/07/22-pt states she takes eliquis 5mg bid pt states she gets samples from her dr-pt states she hasnt taken kcl for 3 weeks-notes are made in the pharmacy comments
[2022-07-07 14:28] VITALS: BP 191/105; PULSE 70; RESP 14; O2SAT 97
[2022-07-07 14:43] LABS: Lactic Sepsis W/Reflex 2.5 mmol/L (0.5-2.2)
[2022-07-07 14:48] LABS: Add Urine Microscopic? YES; Bilirubin Urine Neg (Negative); Blood Urine 3+ (Negative); Glucose Urine UA 4+ (Normal); Ketones Urine Negative (Negative); Leukocyte Esterase Urine Negative (Negative); Nitrate Urine Negative (Negative); Protein Urine Neg (Negative); Specific Gravity, Urine 1.015 (1.005-1.030); Urine Appearance Clear (CLEAR); Urine Color Yellow (Yellow); Urobilinogen Urine Neg (Negative); pH Urine 6.5 (5-7)
[2022-07-07 14:50] LABS: Bacteria Urine TRACE /hpf; Mucus Urine TRACE /hpf; RBC Urine 50-80 /hpf (0-2); Squamous Epithelial Cell Urine 0-4 /hpf (0-5); WBC Urine 0-4 /hpf (0-5)
[2022-07-07 14:51] LABS: Add Urine Culture? Yes
[2022-07-07 15:33] LABS: Reflex Lactate Order REFLEX LACTIC ORDERD
--- NOTE | 2022-07-08 08:06 | DCPLANNER ---
Addendum entered by Svitlana Arshad 07/22/22 09:53: Patient had a follow up appointment scheduled with infectious disease - patient did attend appointment. Addendum entered by Svitlana Arshad 07/12/22 11:52: Patient has a follow up appointment scheduled for , July 21, 2022 at 11:00 with Infectious disease. Original Note: kennel manager dog track had message to schedule a follow up appointment for patient with infectious disease. kennel manager dog track sent patients information to the front office staff at infectious disease. Patients information will be printed and reviewed. Clinic will call patient with appointment information.
--- NOTE | 2022-07-08 08:15 | DCPLANNER ---
Addendum entered by Svitlana Arshad 07/13/22 08:34: surgical manager called [facility] to confirm that patients information was received. surgical manager was told that clinic did receive patients information, it will be reviewed and clinic will call patient with appointment information. Addendum entered by Svitlana Arshad 07/08/22 10:29: surgical manager received the following message from the urology clinic regarding follow up appointment: Patient will need to be sent elsewhere due to diagnosis.Thank you surgical manager called patient and explained that patient would need to be seen somewhere else. Patient stated that she would like her information sent to [place]. surgical manager faxed patients information to the [facility], [place]. Original Note: surgical manager had message to schedule a follow up appointment for patient with urology. surgical manager sent patients information to the front office staff at urolog. Patients information will be printed and reviewed. Clinic will call patient with appointment information.
== END 2022-07-07 15:59 | disposition home or self-care (01) ==
PROVIDERS: Physician Assistant; Emergency Provider Family Medicine; PCP Family Medicine
DX: E11.9 Type 2 diabetes mellitus without complications (principal); B37.31 Acute candidiasis of vulva and vagina; D72.829 Elevated white blood cell count, unspecified; Z22.39 Carrier of other specified bacterial diseases; Z87.891 Personal history of nicotine dependence; I11.0 Hypertensive heart disease with heart failure; I50.9 Heart failure, unspecified; Z87.440 Personal history of urinary (tract) infections
CPT/HCPCS: 36415; 71045; 80053; 81001; 83605; 85025; 87040; 87086; 93005; 99285

== ENCOUNTER 2022-07-08 11:59 | Outpatient (CLI) | payer MEDICARE, OTHER, SELFPAY ==
[2022-07-08 12:24] LABS: Basophils % 0.2 %; Eosinophils % 0.2 %; Hematocrit 45.1 % (37.0-47.0); Hemoglobin 12.9 g/dL (11.5-15.3); Lymphocytes % 5.6 %; Mean Corpuscular HGB Conc 28.6 g/dL (30.0-36.0); Mean Corpuscular Hemoglobin 21.6 pg (28.0-34.0); Mean Corpuscular Volume 75.7 fl (81-99); Mean Platelet Volume 9.5 fL (7.4-10.4); Monocytes # 1.4 10^3/uL (0.2-0.9); Neutrophils # 14.83 10^3/uL (1.8-7.7); Neutrophils % 84.4 %; Nucleated Red Blood Cells % 0 %; Platelet Count 258 10^3/cmm (130-400); Red Blood Count 5.96 10^6/uL (4.1-5.3); Red Cell Distribution Width 24.3 % (12.1-15.1); White Blood Count 17.6 10^3/uL (4.0-10.0)
== END 2022-07-08 12:00 | disposition home or self-care (01) ==
LOC: LAB 12:00
PROVIDERS: PCP Family Medicine; Visit Provider Family Medicine
DX: N18.31 Chronic kidney disease, stage 3a (principal); I48.0 Paroxysmal atrial fibrillation
CPT/HCPCS: 85025

== ENCOUNTER 2022-07-09 11:52 | Inpatient (IN) | payer MEDICARE, OTHER, SELFPAY ==
[2022-07-09] VITALS (7 sets, daily range): BP systolic 92–161; BP diastolic 67–98; PULSE 67–81; RESP 18–19; TEMP 36.2–36.4; O2SAT 93–97; BMI 54.2
--- NOTE | 2022-07-09 13:10 | XRR_ITS ---
PROCEDURE INFORMATION: Exam: XR Chest Exam date and time: 07/09/2022 1:27 PM Age: 71 years old Clinical indication: Cough and shortness of breath; Additional info: SOB TECHNIQUE: Imaging protocol: Radiologic exam of the chest. Views: 1 view. COMPARISON: CR (CHEST, ) 06/01/2022 9:08 PM FINDINGS: Tubes, catheters and devices: Thoracic nerve stimulator wires noted. Lungs: Unremarkable. No consolidation. Pleural spaces: Unremarkable. No pleural effusion. No pneumothorax. Heart/Mediastinum: Borderline cardiac size. Vasculature: Mild calcification thoracic aorta. Bones/joints: Visualized osseous structures show no acute abnormality. Other findings: No significant change from prior exam. XR/XR chest 1V portable [id number] IMPRESSION: Borderline cardiac size. No acute findings.
--- NOTE | 2022-07-09 13:15 | W.ED.ABDPA2 ---
HPI - Abdominal Pain General: Chief Complaint: Abdominal Pain Stated Complaint: abnormal blood culture Time Seen by Provider: 07/09/22 12:51 History of Present Illness: Patient comes in with multiple concerns. States that she is scheduled for a pacemaker but it has been put off secondary to multiple urinary tract infections. Was admitted not that long ago for urosepsis. States that a couple of weeks ago she had a urine sample done that cultured out bacteria susceptible only to IV antibiotics. She came to the emergency department for admission and IV antibiotics, however a straight cath urine sample at that time was unremarkable. Comes in today because she states the culture for that urine sample grew out bacteria again. States that over the last 2 days she has developed a generalized malaise, shortness of breath with dyspnea on exertion, and bilateral flank pain concerning for kidney infection. Patient has a history of congestive heart failure. Associated Symptoms: Reports diarrhea and nausea; Denies dysuria, fever(s) and vomiting Review of Systems Const: Denies: fever(s) or body aches Eyes: Denies: change in vision or blurry vision ENMT: Denies: throat pain or odynophagia Card: Denies: chest pain or palpitations Resp: Reports: dyspnea and non-productive cough GI: Reports: nausea and diarrhea; Denies: abdominal pain or vomiting : Reports: flank pain; Denies: dysuria Musc: Denies: neck pain or back pain Skin/Breast: Denies: rash or pruritus Neuro: Denies: headache(s) or numbness in extremities Psych: Denies: anxiety or change in appetite Endo: Denies: polyuria or excessive sweating PFS ED PFSH: Medical History Acute hypercapnic respiratory failure Acute kidney injury superimposed on chronic kidney disease Acute kidney injury superimposed on CKD Adrenal insufficiency Anasarca Anemia Atrial fibrillation Benign essential hypertension with target blood pressure below 140/90 Central hypothyroidism CHF (congestive heart failure) Chronic back pain Follows at pain clinic for periodic injections Chronic hyponatremia Colitis COVID-19 (~09/2020) Diastolic heart failure Edema ESBL (extended spectrum beta-lactamase) producing bacteria infection Facet arthritis, degenerative, lumbar spine Fatigue Gastroenteritis History of adrenal insufficiency History of anaphylaxis History of atrial fibrillation Intermittent, has not required long-term anticoagulation or focused treatment History of COVID-19 HTN (hypertension) Hx of atrial fibrillation, no current medication Hyperaldosteronism Hypokalemia Hypomagnesemia Hypophosphatemia 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 Increased nausea and vomiting VINNY-2 gene mutation Lumbar spondylolysis Metabolic acidosis Nausea vomiting and diarrhea OAB (overactive bladder) Obesity Obesity, morbid, BMI 50 or higher Obstructive sleep apnea KP (obstructive sleep apnea) Paroxysmal atrial fibrillation Pituitary macroadenoma with extrasellar extension Polycythemia vera Prediabetes Pulmonary hypertension PVD (peripheral vascular disease) Shock Stasis edema with ulcer and inflammation Steroid dependence Tachycardia Type 2 diabetes mellitus with other diabetic kidney complication Unsteady gait UTI (urinary tract infection) Venous (peripheral) insufficiency Volume overload VT (ventricular tachycardia) Surgical History H/O shoulder surgery History of hysterectomy History of pituitary surgery S/P insertion of spinal cord stimulator Family History Father Cancer pancreatic cancer Sister No problems noted. 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 Physical Exam Const: COMMON NORMALS: patient oriented x3 and alert OTHER: Mild distress from shortness of breath HENMT: COMMON NORMALS: normocephalic and atraumatic HEAD & SCALP: normocephalic and atraumatic Eye: COMMON NORMALS: Equal, round and reactive pupils present and EOMs intact bilaterally PUPIL: Yes Equal, round and reactive pupils present Neck/C-Spine: COMMON NORMALS: full ROM and supple Resp: OTHER: Difficulty completing sentences due to shortness of breath Cardio: COMMON NORMALS: regular rate and regular rhythm RATE: regular rate RHYTHM: regular rhythm GI: COMMON NORMALS: Normal to inspection, nondistended, normoactive bowel sounds present, Soft to palpation and non-tender PALPATION: Yes Soft to palpation Extremity: COMMON NORMALS: full ROM NARRATIVE EXTREMITY EXAM: 3+ pitting edema of bilateral lower extremities Neuro: COMMON NORMALS: patient oriented x3 SENSORIUM/ORIENTATION: Yes alert Psych: COMMON NORMALS: mental status grossly normal and cooperative Skin: COMMON NORMALS: no rashes or lesions noted and no wounds GENERAL SKIN EXAM: no rashes or lesions noted Course Vital Signs: Vital signs: Vital Signs Temperature 97.5 F L 07/09/22 12:06 Pulse Rate 73 07/09/22 15:09 Blood Pressure 143/86 07/09/22 15:09 Pulse Oximetry 94 07/09/22 15:09 Oxygen Delivery Me thod Room Air 07/09/22 15:09 MDM - Abdominal Pain Medical Decision Making Patient comes in with multiple concerns. States that she is scheduled for a pacemaker but it has been put off secondary to multiple urinary tract infections. Was admitted not that long ago for urosepsis. States that a couple of weeks ago she had a urine sample done that cultured out bacteria susceptible only to IV antibiotics. She came to the emergency department for admission and IV antibiotics, however a straight cath urine sample at that time was unremarkable. Comes in today because she states the culture for that urine sample grew out bacteria again. States that over the last 2 days she has developed a generalized malaise, shortness of breath with dyspnea on exertion, and bilateral flank pain concerning for kidney infection. Patient has a history of congestive heart failure. On physical exam she is short of breath and unable to complete sentences when she is talking. She has very mild coarse breath sounds in all lung christensen. She has 3+ pitting edema of bilateral lower extremities. States she has also had some diarrhea the last couple of days and nausea for 3 weeks. We will check labs, x-ray, straight cath urine sample, and reassess. On reassessment I talked to the patient about the test results. We will start her on IV antibiotics for the positive urine culture. I discussed the case with the hospitalist and we will admit for further work-up and treatment. Lab Data 07/09/22 14:00 07/09/22 14:00 Labs/Radiology: Radiology Impressions Chest X-Ray 07/09/22 13:10 IMPRESSION: Borderline cardiac size. No acute findings. Abdomen/Pelvis CT 07/09/22 14:24 IMPRESSION: 1. Mildly prominent fatty liver. 2. Mild sigmoid colon diverticulosis without diverticulitis. 3. Moderate stool volume in the colon and correlate clinically for constipation. 4. No urinary tract stone or obstructive uropathy or perinephric stranding. 5. Prior hysterectomy. 6. Spinal stimulator. Laboratory Results WBC 20.2 10^3/uL (4.0-10.0) H 07/09/22 14:00 RBC 6.34 10^6/uL (4.1-5.3) H 07/09/22 14:00 Hgb 13.4 g/dL (11.5-15.3) 07/09/22 14:00 Hct 47.2 % (37.0-47.0) H 07/09/22 14:00 MCV 74.4 fl (81-99) L 07/09/22 14:00 MCH 21.1 pg (28.0-34.0) L 07/09/22 14:00 MCHC 28.4 g/dL (30.0-36.0) L 07/09/22 14:00 RDW 24.0 % (12.1-15.1) H 07/09/22 14:00 Plt Count 254 10^3/cmm (130-400) 07/09/22 14:00 MPV 9.0 fL (7.4-10.4) 07/09/22 14:00 Neut % (Auto) 84.6 % 07/09/22 14:00 Lymph % (Auto) 4.5 % 07/09/22 14:00 [place] % (Auto) 8.8 % 07/09/22 14:00 Eos % (Auto) 0.6 % 07/09/22 14:00 Baso % (Auto) 0.1 % 07/09/22 14:00 Neut # (Auto) 17.04 10^3/uL (1.8-7.7) H 07/09/22 14:00 Lymph # (Auto) 0.9 10^3/uL (0.8-4.8) 07/09/22 14:00 [place] # (Auto) 1.8 10^3/uL (0.2-0.9) H 07/09/22 14:00 Eos # (Auto) 0.1 10^3/uL (0.0-0.8) 07/09/22 14:00 Baso # (Auto) 0.0 10^3/uL (0.0-0.1) 07/09/22 14:00 Nucleated RBC % (auto) 0 % 07/09/22 14:00 Nucleated RBCs # 0.0 /100WBC 07/09/22 14:00 Specimen Type Arterial 07/09/22 13:39 Sample Site Radial, right 07/09/22 13:39 ABG pH 7.41 (7.35-7.45) 07/09/22 13:39 ABG pCO2 39.3 mmHg (35-45) 07/09/22 13:39 ABG pO2 72.3 mmHg (80.0-100.0) L 07/09/22 13:39 ABG HCO3 24.8 mmol/L (22-26) 07/09/22 13:39 ABG Base Excess 0.2 mmol/L (-2.0-2.0) 07/09/22 13:39 Surya Test Pos 07/09/22 13:39 Hematocrit 42.7 % (37-47) 07/09/22 13:39 O2 Delivery Device None 07/09/22 13:39 FiO2 21.0 % 07/09/22 13:39 Developmental Writing Instructor ID [place] 07/09/22 13:39 Sodium 128 mmol/L (136-145) L 07/09/22 14:00 Potassium 4.1 mmol/L (3.5-5.1) 07/09/22 14:00 Chloride 93 mmol/L (98-107) L 07/09/22 14:00 Carbon Dioxide 25 mmol/L (22-29) 07/09/22 14:00 Anion Gap 14.1 (5-19) 07/09/22 14:00 BUN 20 mg/dL (8-23) 07/09/22 14:00 Creatinine 0.8 mg/dL (0.5-0.9) 07/09/22 14:00 GFR Calculation 71.1 mL/min (90-130) L 07/09/22 14:00 Glucose 138 mg/dL (65-115) H 07/09/22 14:00 Calculated Osmolality 271 mOsm/kg (285-295) L 07/09/22 14:00 Lactate 2.1 mmol/L (0.5-2.2) 07/09/22 14:00 Calcium 9.3 mg/dL (8.5-10.5) 07/09/22 14:00 Total Bilirubin 0.4 mg/dL (0.15-1.2) 07/09/22 14:00 AST 11 U/L (0-32) 07/09/22 14:00 ALT 31 U/L (0-33) 07/09/22 14:00 Alkaline Phosphatase 115 U/L (35-105) H 07/09/22 14:00 Troponin T Baseline 16 ng/L (0-10) H 07/09/22 14:00 NT-Pro-B Natriuret Pep 171 pg/mL (0-125) H 07/09/22 14:00 Total Protein 6.8 g/dL (6.6-8.7) 07/09/22 14:00 Albumin 4.3 g/dL (3.5-5.2) 07/09/22 14:00 Globulin 2.5 g/dL (1.3-4.6) 07/09/22 14:00 Urine Color Yellow (Yellow) 07/09/22 13:43 Urine Appearance Clear (CLEAR) 07/09/22 13:43 Urine pH 6 (5-7) 07/09/22 13:43 Ur Specific [place] 1.020 (1.005-1.030) 07/09/22 13:43 Urine Protein Neg (Negative) 07/09/22 13:43 Urine Glucose (UA) Trace (Normal) H 07/09/22 13:43 Urine Ketones 1+ (Negative) H 07/09/22 13:43 Urine Blood 3+ (Negative) H 07/09/22 13:43 Urine Nitrate Negative (Negative) 07/09/22 13:43 Urine Bilirubin Neg (Negative) 07/09/22 13:43 Urine Urobilinogen 1 mg/dL (Negative) H 07/09/22 13:43 Ur Leukocyte Esterase Negative (Negative) 07/09/22 13:43 Urine RBC 50-80 /hpf (0-2) H 07/09/22 13:43 Urine WBC 0-4 /hpf (0-5) H 07/09/22 13:43 Ur Squamous Epith Cells None /hpf (0-5) 07/09/22 13:43 Amorphous Sediment Not Reportable 07/09/22 13:43 Urine Bacteria Trace /hpf (NONE) 07/09/22 13:43 Urine Mucus 2+ /hpf 07/09/22 13:43 Coronavirus 229E (PCR) Not detected (NOT DETECT) 07/09/22 13:28 SARS-CoV-2 (PCR) Not detected (NOT DETECT) 07/09/22 13:28 Discharge Plan Discharge Condition: Stable Prescriptions: No Action (DME) Pharmacist Choice Strip See Rx Instructions .Route Qty: 50 2RF Rx Instructions: AC and HS bumetanide 1 mg tablet 2 mg PO BID PRN (Reason: Edema) Qty: 30 3RF dexamethasone 1 mg tablet 1 mg PO QAM Qty: 30 2RF diltiazem HCl 300 mg capsule,extended release 24hr 300 mg PO QAM Qty: 30 3RF levothyroxine 175 mcg tablet 175 mcg PO QAM 90 Days Qty: 90 1RF pantoprazole [Protonix] 40 mg tablet,delayed release (DR/EC) 40 mg PO BEDTIME Qty: 30 3RF pramipexole [Mirapex] 0.5 mg tablet 1 mg PO BEDTIME Qty: 30 4RF potassium chloride [Klor-Con M20] 20 mEq tablet,ER particles/crystals 20 meq PO BID PRN (Reason: low potassium) Qty: 30 3RF Rx Instructions: dose gets adjusted on mon,wed and fri neomycin-polymyxin B-dexameth [Maxitrol] 3.5mg/mL-10,000 unit/mL-0.1 % drops,suspension 1 drp ophthalmic (eye) Q12H Qty: 5 0RF (DME) blood-glucose meter,continuous Misc See Rx Instructions .Route Qty: 1 0RF Rx Instructions: As directed one meter with all necessary supplies (DME) cpap mask and supplies See Rx Instructions .Route .MEDSUPPLY Qty: 1 0RF Rx Instructions: As directed spironolactone 50 mg tablet 50 mg PO BID Qty: 60 2RF Rx Instructions: Dose change nystatin 100,000 unit/gram cream 1 applic topical TID Qty: 30 1RF Antibiotic (ebhfj-iwyix-lwvgh) 3.5mg-400 unit- 5,000 unit/gram ointment 1 applic topical QID 5 Days Qty: 14 0RF (DME) diabetic supplies, miscellan. 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
--- NOTE | 2022-07-09 13:19 | ECG_ITS ---
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 Measurements Intervals [place] Rate: 78 P: 72 IA: 147 QRS: 34 QRSD: 93 T: 62 QT: 383 QTc: 437 Interpretive Statements SINUS RHYTHM Compared to ECG 07/07/2022 13:40:46 ST (T wave) deviation now present Left anterior fascicular block no longer present Electronically Signed On 07-09-2022 13:22:46 CDT by Bahman Rowland M.D. [id number]
[2022-07-09 13:50] LABS: ABG PCO2 39.3 mmHg (35-45); ABG PH Result 7.41 (7.35-7.45); Arterial Blood Gas Hematocrit 42.7 % (37-47); Base Excess ABG 0.2 mmol/L (-2.0-2.0); Blood Gas Allen Test Pos; Blood Gas Operator Identificat WALCI; Blood Gas Sample Site Radial, right; Blood Gas Sample Type Arterial; HCO3 ABG 24.8 mmol/L (22-26); PO2 ABG 72.3 mmHg (80.0-100.0)
[2022-07-09 14:10] LABS: Basophils % 0.1 %; Eosinophils # 0.1 10^3/uL (0.0-0.8); Eosinophils % 0.6 %; Hematocrit 47.2 % (37.0-47.0); Hemoglobin 13.4 g/dL (11.5-15.3); Lymphocytes # 0.9 10^3/uL (0.8-4.8); Lymphocytes % 4.5 %; Mean Corpuscular HGB Conc 28.4 g/dL (30.0-36.0); Mean Corpuscular Hemoglobin 21.1 pg (28.0-34.0); Mean Corpuscular Volume 74.4 fl (81-99); Monocytes # 1.8 10^3/uL (0.2-0.9); Monocytes % 8.8 %; Neutrophils # 17.04 10^3/uL (1.8-7.7); Neutrophils % 84.6 %; Nucleated Red Blood Cells % 0 %; Platelet Count 254 10^3/cmm (130-400); Red Blood Count 6.34 10^6/uL (4.1-5.3); White Blood Count 20.2 10^3/uL (4.0-10.0)
--- NOTE | 2022-07-09 14:24 | CTR_ITS ---
PROCEDURE INFORMATION: Exam: CT Abdomen And Pelvis Without Contrast Exam date and time: 07/09/2022 2:36 PM Age: 71 years old Clinical indication: Pain; Other: Bi flank; Prior surgery; Surgery type: Hyst; Spinal stimulator; Additional info: Flank pain, hematuria TECHNIQUE: Imaging protocol: Computed tomography of the abdomen and pelvis without contrast. Radiation optimization: All CT scans at this facility use at least one of these dose optimization techniques: automated exposure control; mA and/or kV adjustment per patient size (includes targeted exams where dose is matched to clinical indication); or iterative reconstruction. REPORTING DATA: Count of CT and Cardiac NM exams in prior 12 months: This patient has received 4 known CTs and 0 known cardiac nuclear medicine studies in the 12 months prior to the current study. COMPARISON: CT abdomen pelvis wo con [id number] 06/02/2022 12:10 AM RADIATION DOSE METRICS: Total DLP (mGy-cm): 1571.03 FINDINGS: Tubes, catheters and devices: Spinal stimulator noted. Lungs: No significant infiltrate or effusion is seen within the lung bases. Liver: Liver is mildly prominent with fatty infiltration without focal abnormality. Gallbladder and bile ducts: Normal. No calcified stones. No ductal dilation. Pancreas: Normal. No ductal dilation. Spleen: Normal. No splenomegaly. Adrenal glands: Normal. No mass. Kidneys and ureters: Normal. No hydronephrosis. No urinary tract stone. Stomach and bowel: Mild sigmoid colon diverticulosis without CT findings of diverticulitis. No bowel obstruction. Moderate stool volume in the colon. Appendix: No evidence of appendicitis. Intraperitoneal space: Unremarkable. No free air. No significant fluid collection. Vasculature: Atherosclerotic calcification noted without aneurysmal dilatation of the abdominal aorta. Lymph nodes: Unremarkable. No enlarged lymph nodes. Urinary bladder: Unremarkable as visualized. Reproductive: Suggestion of prior hysterectomy. Bones/joints: Degenerative change with degenerative disc disease thoracolumbar spine. Soft tissues: Unremarkable. CT/CT kidney stone [id number] IMPRESSION: 1. Mildly prominent fatty liver. 2. Mild sigmoid colon diverticulosis without diverticulitis. 3. Moderate stool volume in the colon and correlate clinically for constipation. 4. No urinary tract stone or obstructive uropathy or perinephric stranding. 5. Prior hysterectomy. 6. Spinal stimulator.
[2022-07-09 14:39] LABS: Protein Urine Neg (Negative); Urine Appearance Clear (CLEAR); Urine Color Yellow (Yellow); pH Urine 6 (5-7)
[2022-07-09 14:40] LABS: Add Urine Microscopic? YES; Bilirubin Urine Neg (Negative); Blood Urine 3+ (Negative); Glucose Urine UA Trace (Normal); Ketones Urine 1+ (Negative); Leukocyte Esterase Urine Negative (Negative); Nitrate Urine Negative (Negative); Urobilinogen Urine 1 mg/dL (Negative)
[2022-07-09 14:41] LABS: Add Urine Culture? Yes; Bacteria Urine TRACE /hpf; Mucus Urine 2+ /hpf; RBC Urine 50-80 /hpf (0-2); WBC Urine 0-4 /hpf (0-5)
[2022-07-09 14:50] LABS: Lactate (Lactic Acid level) 2.1 mmol/L (0.5-2.2); Troponin(5th) Baseline 16 ng/L (0-10)
[2022-07-09 14:54] LABS: Alanine Aminotransferase 31 U/L (0-33); Albumin Level 4.3 g/dL (3.5-5.2); Alkaline Phosphatase 115 U/L (35-105); Anion Gap 14.1 (5-19); Aspartate Amino Transferase 11 U/L (0-32); Blood Urea Nitrogen 20 mg/dL (8-23); Calcium 9.3 mg/dL (8.5-10.5); Carbon Dioxide 25 mmol/L (22-29); Chloride 93 mmol/L (98-107); Globulin 2.5 g/dL (1.3-4.6); Glomerular Filtration Rate 71.1 mL/min (90-130); Glucose 138 mg/dL (65-115); NT Pro B Type Natriuretic Pept 171 pg/mL (0-125); Osmolality Calculated 271 mOsm/kg (285-295); Potassium 4.1 mmol/L (3.5-5.1); Sodium 128 mmol/L (136-145); Total Bilirubin 0.4 mg/dL (0.15-1.2); Total Protein 6.8 g/dL (6.6-8.7)
--- NOTE | 2022-07-09 15:12 | ECG_ITS ---
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 Measurements Intervals [place] Rate: 66 P: 64 [place]: 152 QRS: 9 QRSD: 97 T: 64 QT: 384 QTc: 402 Interpretive Statements SINUS RHYTHM Compared to ECG 07/09/2022 13:19:48 No significant changes Electronically Signed On 07-10-2022 11:50:56 CDT by Bahman Rowland M.D. [id number]
[2022-07-09 15:20] LABS: Adenovirus Not Detected (NOT DETECT); Chlamydia Pneumoniae Not Detected (NOT DETECT); Coronavirus 229E,HKU1,NL63,OC4 Not Detected (NOT DETECT); Human Metapneumovirus Not Detected (NOT DETECT); Human Rhinovirus/Enterovirus Not Detected (NOT DETECT); Influenza A Not Detected (NOT DETECT); Influenza A H1 Not Detected (NOT DETECT); Influenza A H1-2009 Not Detected (NOT DETECT); Influenza A H3 Not Detected (NOT DETECT); Influenza B Not Detected (NOT DETECT); Mycoplasma Pneumoniae Not Detected (NOT DETECT); Parainfluenza Virus Type 1 Not Detected (NOT DETECT); Parainfluenza Virus Type 2 Not Detected (NOT DETECT); Parainfluenza Virus Type 3 Not Detected (NOT DETECT); Parainfluenza Virus Type 4 Not Detected (NOT DETECT); Respiratory Syncytial Virus A Not Detected (NOT DETECT); Respiratory Syncytial Virus B Not Detected (NOT DETECT); SARS-COV-2 Not Detected (NOT DETECT)
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
[2022-07-09] MEDS: ciprofloxacin 400 MG/200 ML PREMIX 200 MG IV (17:45)
[2022-07-09 20:53] LABS: Glucose Point of Care 280 mg/dL (70-110)
--- NOTE | 2022-07-09 21:32 | ECG_ITS ---
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 Measurements Intervals [place] Rate: 71 P: 94 NC: 138 QRS: -25 QRSD: 97 T: 42 QT: 399 QTc: 435 Interpretive Statements SINUS RHYTHM POSSIBLE ANTERIOR MYOCARDIAL INFARCTION , OF INDETERMINATE AGE [30 ms Q WAVE IN V3/V4, OR R < 0.2 mV IN V4] Compared to ECG 07/09/2022 15:28:12 Myocardial infarct finding now present Electronically Signed On 07-10-2022 11:50:49 CDT by Bahman Rowland M.D. [email or web address]
[2022-07-09] MEDS: apixaban 5 mg Tablet PO (21:44)
[2022-07-09] MEDS: insulin lispro 100 unit/1 mL SUBCUT (21:51)
[2022-07-10 03:34] LABS: Basophils % 0.1 %; Eosinophils # 0.1 10^3/uL (0.0-0.8); Eosinophils % 0.7 %; Hematocrit 42.6 % (37.0-47.0); Lymphocytes # 0.9 10^3/uL (0.8-4.8); Lymphocytes % 5.8 %; Mean Corpuscular HGB Conc 28.2 g/dL (30.0-36.0); Mean Corpuscular Hemoglobin 21.4 pg (28.0-34.0); Mean Corpuscular Volume 76.1 fl (81-99); Mean Platelet Volume 9.2 fL (7.4-10.4); Monocytes # 1.4 10^3/uL (0.2-0.9); Monocytes % 9.4 %; Neutrophils # 12.28 10^3/uL (1.8-7.7); Neutrophils % 82.2 %; Nucleated Red Blood Cells % 0 %; Platelet Count 231 10^3/cmm (130-400); Red Cell Distribution Width 23.5 % (12.1-15.1)
[2022-07-10 03:56] LABS: Alanine Aminotransferase 28 U/L (0-33); Albumin Level 3.4 g/dL (3.5-5.2); Alkaline Phosphatase 106 U/L (35-105); Anion Gap 15.8 (5-19); Aspartate Amino Transferase 9 U/L (0-32); Blood Urea Nitrogen 22 mg/dL (8-23); Calcium 8.4 mg/dL (8.5-10.5); Carbon Dioxide 21 mmol/L (22-29); Chloride 98 mmol/L (98-107); Globulin 2.3 g/dL (1.3-4.6); Glucose 257 mg/dL (65-115); Osmolality Calculated 284 mOsm/kg (285-295); Potassium 3.8 mmol/L (3.5-5.1); Sodium 131 mmol/L (136-145); Total Bilirubin 0.2 mg/dL (0.15-1.2); Total Protein 5.7 g/dL (6.6-8.7)
[2022-07-10 04:00] VITALS: BP 149/83; PULSE 77; RESP 18; TEMP 36.6; O2SAT 95
[2022-07-10] MEDS: ciprofloxacin 400 MG/200 ML PREMIX 200 MG IV ×2 (06:04→18:35)
[2022-07-10 06:58] LABS: Glucose Point of Care 206 mg/dL (70-110)
[2022-07-10 08:00] VITALS: BP 164/90; PULSE 66; RESP 18; TEMP 36.4; O2SAT 96
[2022-07-10] MEDS: apixaban 5 mg Tablet PO ×2 (10:47→18:36)
[2022-07-10] MEDS: insulin lispro 100 unit/1 mL SUBCUT ×4 (10:52→21:54)
[2022-07-10 11:36] VITALS: BP 183/75; PULSE 79; RESP 18; TEMP 36.4; O2SAT 97
[2022-07-10 11:59] LABS: Glucose Point of Care 160 mg/dL (70-110)
[2022-07-10] MEDS: dilTIAZem ER (24HR) 300 mg Capsule PO (13:39)
[2022-07-10] MEDS: dexamethasone 4 mg/mL INJ 1.5 MG IVP (13:58)
[2022-07-10 16:00] VITALS: BP 187/76; PULSE 90; RESP 18; TEMP 36.6; O2SAT 94
[2022-07-10 16:34] LABS: Glucose Point of Care 293 mg/dL (70-110)
[2022-07-10] MEDS: spironolactone 25 mg Tablet 50 MG PO (18:35)
[2022-07-10 20:00] VITALS: BP 135/68; PULSE 74; RESP 19; TEMP 36.6; O2SAT 95
[2022-07-10 20:44] LABS: Glucose Point of Care 279 mg/dL (70-110)
--- NOTE | 2022-07-10 21:36 | P.PN_ITS ---
Subjective Subjective: Feels unwell, very tired, worse than yesterday. Vitals/I&O/Wt Last Vital Signs Temp 98 F 07/10/22 20:00 Pulse 74 07/10/22 20:00 Resp 19 H 07/10/22 20:00 BP 135/68 07/10/22 20:00 Pulse Ox 95 07/10/22 20:00 O2 Del Method Room Air 07/10/22 16:00 07/10/22 07/10/22 07/10/22 06:59 14:59 22:59 Intake Total 200 / 680 1640 / 1640 480 / 2120 Balance 200 / 680 1640 / 1640 480 / 2120 Weight last 48 hrs Weight 147.871 kg Physical Exam Const: COMMON NORMALS: patient oriented x3 and alert GENERAL APPEARANCE: cooperative ORIENTATION/CONSCIOUSNESS: Yes awake HENMT: COMMON NORMALS: oropharynx normal Neck/C-Spine: COMMON NORMALS: no JVD Resp: COMMON NORMALS: normal respiratory effort and clear to auscultation bilaterally AUSCULTATION: clear to auscultation bilaterally Cardio: COMMON NORMALS: no JVD, regular rhythm, S1 normal heart sound present, S2 normal heart sound present and No murmurs present (Cardio) RHYTHM: regular rhythm HEART SOUNDS: S1 normal heart sound present and S2 normal heart sound present GI: COMMON NORMALS: Normal to inspection, nondistended, normoactive bowel sounds present, Soft to palpation and non-tender PALPATION: Yes Soft to palpation Extremity: COMMON NORMALS: no joint enlargement GENERAL: Yes edema (2+ BL LE) Neuro: COMMON NORMALS: patient oriented x3 SENSORIUM/ORIENTATION: Yes alert Skin: COMMON NORMALS: no rashes or lesions noted GENERAL SKIN EXAM: no rashes or lesions noted Data 07/10/22 02:50 07/10/22 02:50 Micro: Microbiology 07/09/22 14:00 Blood Culture - Preliminary Blood NEGATIVE TO DATE A&P Assessment and plan (1) Malaise: CBC reviewed, WBC lower today at 15, predominantly neutrophilic. Continue treatment of UTI. She is feeling tired, worse than yesterday. Generally weak. Afebrile. Check random cortisol, 0.3. She might be starting to go into adrenal crisis, sodium low side 131, potassium is normal. Increase dexamethasone dose to 1.5 mg Concerned about UTI. Also does have hypopituitarism. Noted borderline cardiac size otherwise unremarkable chest x-ray. (2) UTI (urinary tract infection): Continue Cipro. Enterobacter cloacae sensitive to quinolones. She has a number of allergies. Aníbal brewster will continue with ciprofloxacin, discussed with her and . Reassess WBC count in the morning. Noted 20 today, CBC requested. Observation hospital due to chronic steroid use, recurrent UTI, malaise, she is concerned that UTI is worsening. Noted results of CT scan, no hydronephrosis, no stone. Follow-up with infectious disease in office, states that she will have an appointment 07/20. Discussed with ER physician. ER documentation reviewed. Plan Diastolic CHF: Currently not in exacerbation. 2+ lower extreme edema, this is chronic and much better than her prior condition during previous hospitalization. She states has been maintaining fluid balance without diuretics. Limits oral fluid intake. Request for regular diet. Chronic leukocytosis: Slight worsening today up to 20,000, as above. Hypopituitarism History of adrenal insufficiency History of A-fib CKD DM2: Sliding scale insulin, requests regular diet. Requesting confirmation of home medications so they can be resumed. Attestations Medical Necessity Statement*: Continue hospitalization for additional optimization of steroid therapy with concern for impending adrenal crisis. Diagnoses Malaise R53.81 UTI (urinary tract infection) N39.0
[2022-07-10] MEDS: pramipexole 0.25 mg Tablet 1 MG PO (21:54)
[2022-07-10] MEDS: pantoprazole DR 40 mg Tablet PO (21:54)
[2022-07-10 23:57] VITALS: BP 166/92; PULSE 76; RESP 17; TEMP 36.3; O2SAT 95
[2022-07-11 04:00] VITALS: BP 159/88; PULSE 68; RESP 18; TEMP 36.2; O2SAT 95
[2022-07-11 05:18] LABS: Basophils % 0.2 %; Eosinophils # 0.1 10^3/uL (0.0-0.8); Eosinophils % 0.5 %; Hematocrit 46.7 % (37.0-47.0); Hemoglobin 13.1 g/dL (11.5-15.3); Lymphocytes # 0.9 10^3/uL (0.8-4.8); Lymphocytes % 5.8 %; Mean Corpuscular HGB Conc 28.1 g/dL (30.0-36.0); Mean Corpuscular Hemoglobin 21.4 pg (28.0-34.0); Mean Corpuscular Volume 76.3 fl (81-99); Mean Platelet Volume 9.9 fL (7.4-10.4); Monocytes # 1.2 10^3/uL (0.2-0.9); Monocytes % 8.2 %; Neutrophils # 12.18 10^3/uL (1.8-7.7); Neutrophils % 83.2 %; Nucleated Red Blood Cells % 0 %; Platelet Count 265 10^3/cmm (130-400); Red Blood Count 6.12 10^6/uL (4.1-5.3); Red Cell Distribution Width 23.9 % (12.1-15.1); White Blood Count 14.6 10^3/uL (4.0-10.0)
[2022-07-11] MEDS: dexamethasone 4 mg/mL INJ 1.5 MG IVP (05:37)
[2022-07-11 05:40] LABS: Alanine Aminotransferase 32 U/L (0-33); Albumin Level 3.8 g/dL (3.5-5.2); Alkaline Phosphatase 115 U/L (35-105); Anion Gap 17.1 (5-19); Aspartate Amino Transferase 11 U/L (0-32); Blood Urea Nitrogen 27 mg/dL (8-23); Carbon Dioxide 23 mmol/L (22-29); Chloride 96 mmol/L (98-107); Globulin 2.6 g/dL (1.3-4.6); Glomerular Filtration Rate 62.1 mL/min (90-130); Glucose 200 mg/dL (65-115); Osmolality Calculated 285 mOsm/kg (285-295); Potassium 4.1 mmol/L (3.5-5.1); Sodium 132 mmol/L (136-145); Total Bilirubin 0.3 mg/dL (0.15-1.2); Total Protein 6.4 g/dL (6.6-8.7)
[2022-07-11] MEDS: dilTIAZem ER (24HR) 300 mg Capsule PO (06:02)
[2022-07-11] MEDS: levothyroxine 175 mcg Tablet PO (06:02)
[2022-07-11] MEDS: ciprofloxacin 400 MG/200 ML PREMIX 200 MG IV (06:03)
[2022-07-11 06:36] LABS: Glucose Point of Care 213 mg/dL (70-110)
[2022-07-11 08:00] VITALS: BP 169/85; PULSE 71; RESP 24; TEMP 36.4; O2SAT 95
[2022-07-11] MEDS: spironolactone 25 mg Tablet 50 MG PO (08:24)
[2022-07-11] MEDS: insulin lispro 100 unit/1 mL SUBCUT (08:24)
[2022-07-11] MEDS: apixaban 5 mg Tablet PO (08:24)
--- NOTE | 2022-07-11 10:25 | PC.CHAP ---
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 deicer repairer pneumatic visit [] Patient/Family/Request visit [] Outpatient visit [] Follow-up visit [] Physician referral [] Code/Alert [x] Routine visit [] Staff referral [] Actively dying [] Patient sleeping [] Family support [] [] Out of room [] Palliative care [] [] Receiving care in room [] Pre-surgical visit [] Trauma [] Long length of stay [] ICU visit [] Other: Relational/Emotional Strength [] Patient feels connected with others/family/visitors/staff [] Distress [] Loneliness/isolation [] Abandonment Spirituality of Patient [x] Person of [place] [] Attends Gnosticism of their [place] [x] Believes in Prayer [] Reads Bible or Mosque materials [] There are Spiritual issues to be addressed Knuckle Bender Interventions [x] Prayer [] Active listening [] Non-anxious presence [] Spiritual/emotional support [] Crisis/trauma care [] Spiritual counseling [] Bereavement support [] Provided bereavement packet [] Provided Bible/devotional materials [] Provided toy/stuffed animal, coloring book to patient or family member [] Provided Communion [] Anointing/[place] [] Salvation [] Completed spiritual assessment [] Other: Impact on Illness or Injury [] Angry [] Fearful [] Anxious [] Often cries [] Exhaustion [] Unable to work [] Unable to attend hinduism [] Unable to walk/stand [] Unable to read [] Unable to drive [] Unable to eat/drink [] Unable to sleep [] Unable to be with family [] Patient intubated [] Other: Summary Time spent with patient 5 min
[2022-07-11 12:45] VITALS: BP 169/85; PULSE 71; RESP 24; TEMP 36.4; O2SAT 95
--- NOTE | 2022-07-11 13:23 | PM.DCS ---
Discharge Providers Date of Admission: 07/10/22 17:19 Date of Discharge: July 11, 2022 Attending Provider at Admission: Jarvis Cormier Attending Provider at Discharge: Jarvis Cormier Primary Care Provider: Piedad Sandhu MD Diagnoses at Discharge Discharge Diagnosis (1) Malaise: Status: Acute (2) UTI (urinary tract infection): Status: Acute Reason for Visit Reason for Visit: abnormal blood culture Hospital Course Hospital Course She was hospitalized for additional assessment and management of UTI initially concern for progression to complicated UTI in immunocompromised patient on chronic steroids, was continued on ciprofloxacin, leukocytosis noted decreased, but on 07/10 she was feeling worse, generally weak, fatigued, although without specific pain or localized discomfort. Serum cortisol noted very low. She takes dexamethasone, to which she was switched due to difficulty keeping up with twice daily dosing of hydrocortisone, its dose was increased to 1.5 mg due to concern that she was going into adrenal insufficiency as she has had similar symptoms in the past. Today she is feeling better. Leukocytosis further decreased to 14.6. Sodium better up to 132. Potassium remains normal. No signs of decompensation of CHF. Mild edema lower extremities but much better than previously. Continues on spironolactone. As she has had difficulty maintaining potassium at home and blood pressures now on the higher side, started on low-dose losartan, please follow-up. She knows to measure her blood pressures without meds 3 times a day to monitor blood pressure closely as she is at risk of hypotension as in the past at which point if blood pressure decreasing she knows to stop losartan. She will complete ciprofloxacin course for susceptible organism noted on culture 07/04. She has an appointment for follow-up with infectious disease 07/21. She has also had some crusting of the left eye in the morning, mild conjunctival injection, and continues with antibiotic ointment although this has not resolved for close to about a month, so she will make an appointment with her disabilities services officer. Physical Exam Const: COMMON NORMALS: patient oriented x3 and alert GENERAL APPEARANCE: cooperative ORIENTATION/CONSCIOUSNESS: Yes awake HENMT: COMMON NORMALS: oropharynx normal Eye: OTHER: Pupils equal, reactive to light. Minimal conjunctival injection on the left although does not appear to be much worse than on the right. Currently no discharge. Neck/C-Spine: COMMON NORMALS: no JVD Resp: COMMON NORMALS: normal respiratory effort and clear to auscultation bilaterally AUSCULTATION: clear to auscultation bilaterally Cardio: COMMON NORMALS: no JVD, regular rhythm, S1 normal heart sound present, S2 normal heart sound present and No murmurs present (Cardio) RHYTHM: regular rhythm HEART SOUNDS: S1 normal heart sound present and S2 normal heart sound present GI: COMMON NORMALS: Normal to inspection, nondistended, normoactive bowel sounds present, Soft to palpation and non-tender PALPATION: Yes Soft to palpation Extremity: COMMON NORMALS: no joint enlargement and no pedal edema GENERAL: Yes edema (2+ BL LE) Neuro: COMMON NORMALS: patient oriented x3 and moves all extremities SENSORIUM/ORIENTATION: Yes alert Skin: COMMON NORMALS: no rashes or lesions noted GENERAL SKIN EXAM: no rashes or lesions noted Discharge Data Studies Completed and Pending Completed Studies During Hospitalization Category Date Time Status CT abdomen renal stone [CT kidney stone [id number]] Stat Cat Scan 07/09/22 14:24 Completed XR chest 1V portable [id number] Stat Exams 07/09/22 13:10 Completed Pending at discharge Category Date Time Status Blood Culture Stat Lab 07/09/22 14:00 Results Radiology Impressions Chest X-Ray 07/09/22 13:10 IMPRESSION: Borderline cardiac size. No acute findings. Abdomen/Pelvis CT 07/09/22 14:24 IMPRESSION: 1. Mildly prominent fatty liver. 2. Mild sigmoid colon diverticulosis without diverticulitis. 3. Moderate stool volume in the colon and correlate clinically for constipation. 4. No urinary tract stone or obstructive uropathy or perinephric stranding. 5. Prior hysterectomy. 6. Spinal stimulator. Laboratory Results WBC 14.6 10^3/uL (4.0-10.0) H 07/11/22 04:24 RBC 6.12 10^6/uL (4.1-5.3) H 07/11/22 04:24 Hgb 13.1 g/dL (11.5-15.3) 07/11/22 04:24 Hct 46.7 % (37.0-47.0) 07/11/22 04:24 MCV 76.3 fl (81-99) L 07/11/22 04:24 MCH 21.4 pg (28.0-34.0) L 07/11/22 04:24 MCHC 28.1 g/dL (30.0-36.0) L 07/11/22 04:24 RDW 23.9 % (12.1-15.1) H 07/11/22 04:24 Plt Count 265 10^3/cmm (130-400) 07/11/22 04:24 MPV 9.9 fL (7.4-10.4) 07/11/22 04:24 Neut % (Auto) 83.2 % 07/11/22 04:24 Lymph % (Auto) 5.8 % 07/11/22 04:24 [place] % (Auto) 8.2 % 07/11/22 04:24 Eos % (Auto) 0.5 % 07/11/22 04:24 Baso % (Auto) 0.2 % 07/11/22 04:24 Neut # (Auto) 12.18 10^3/uL (1.8-7.7) H 07/11/22 04:24 Lymph # (Auto) 0.9 10^3/uL (0.8-4.8) 07/11/22 04:24 [place] # (Auto) 1.2 10^3/uL (0.2-0.9) H 07/11/22 04:24 Eos # (Auto) 0.1 10^3/uL (0.0-0.8) 07/11/22 04:24 Baso # (Auto) 0.0 10^3/uL (0.0-0.1) 07/11/22 04:24 Nucleated RBC % (auto) 0 % 07/11/22 04:24 Nucleated RBCs # 0.0 /100WBC 07/11/22 04:24 Specimen Type Arterial 07/09/22 13:39 Sample Site Radial, right 07/09/22 13:39 ABG pH 7.41 (7.35-7.45) 07/09/22 13:39 ABG pCO2 39.3 mmHg (35-45) 07/09/22 13:39 ABG pO2 72.3 mmHg (80.0-100.0) L 07/09/22 13:39 ABG HCO3 24.8 mmol/L (22-26) 07/09/22 13:39 ABG Base Excess 0.2 mmol/L (-2.0-2.0) 07/09/22 13:39 Surya Test Pos 07/09/22 13:39 Hematocrit 42.7 % (37-47) 07/09/22 13:39 O2 Delivery Device None 07/09/22 13:39 FiO2 21.0 % 07/09/22 13:39 Litigation Secretary ID Amanda 07/09/22 13:39 Sodium 132 mmol/L (136-145) L 07/11/22 04:24 Potassium 4.1 mmol/L (3.5-5.1) 07/11/22 04:24 Chloride 96 mmol/L (98-107) L 07/11/22 04:24 Carbon Dioxide 23 mmol/L (22-29) 07/11/22 04:24 Anion Gap 17.1 (5-19) 07/11/22 04:24 BUN 27 mg/dL (8-23) H 07/11/22 04:24 Creatinine 0.9 mg/dL (0.5-0.9) 07/11/22 04:24 GFR Calculation 62.1 mL/min (90-130) L 07/11/22 04:24 Glucose 200 mg/dL (65-115) H 07/11/22 04:24 POC Glucose 213 mg/dL (70-110) H 07/11/22 06:12 Calculated Osmolality 285 mOsm/kg (285-295) 07/11/22 04:24 Lactate 2.1 mmol/L (0.5-2.2) 07/09/22 14:00 Calcium 9.0 mg/dL (8.5-10.5) 07/11/22 04:24 Total Bilirubin 0.3 mg/dL (0.15-1.2) 07/11/22 04:24 AST 11 U/L (0-32) 07/11/22 04:24 ALT 32 U/L (0-33) 07/11/22 04:24 Alkaline Phosphatase 115 U/L (35-105) H 07/11/22 04:24 Troponin T Baseline 16 ng/L (0-10) H 07/09/22 14:00 NT-Pro-B Natriuret Pep 171 pg/mL (0-125) H 07/09/22 14:00 Total Protein 6.4 g/dL (6.6-8.7) L 07/11/22 04:24 Albumin 3.8 g/dL (3.5-5.2) 07/11/22 04:24 Globulin 2.6 g/dL (1.3-4.6) 07/11/22 04:24 Random Cortisol 0.30 ug/dL (2.47-19.5) L 07/10/22 02:50 Urine Color Yellow (Yellow) 07/09/22 13:43 Urine Appearance Clear (CLEAR) 07/09/22 13:43 Urine pH 6 (5-7) 07/09/22 13:43 Ur Specific [place] 1.020 (1.005-1.030) 07/09/22 13:43 Urine Protein Neg (Negative) 07/09/22 13:43 Urine Glucose (UA) Trace (Normal) H 07/09/22 13:43 Urine Ketones 1+ (Negative) H 07/09/22 13:43 Urine Blood 3+ (Negative) H 07/09/22 13:43 Urine Nitrate Negative (Negative) 07/09/22 13:43 Urine Bilirubin Neg (Negative) 07/09/22 13:43 Urine Urobilinogen 1 mg/dL (Negative) H 07/09/22 13:43 Ur Leukocyte Esterase Negative (Negative) 07/09/22 13:43 Urine RBC 50-80 /hpf (0-2) H 07/09/22 13:43 Urine WBC 0-4 /hpf (0-5) H 07/09/22 13:43 Ur Squamous Epith Cells None /hpf (0-5) 07/09/22 13:43 Amorphous Sediment Not Reportable 07/09/22 13:43 Urine Bacteria Trace /hpf (NONE) 07/09/22 13:43 Urine Mucus 2+ /hpf 07/09/22 13:43 Coronavirus 229E (PCR) Not detected (NOT DETECT) 07/09/22 13:28 SARS-CoV-2 (PCR) Not detected (NOT DETECT) 07/09/22 13:28 Vitals Last Vital Signs Temp 97.5 F L 07/11/22 12:45 Pulse 71 07/11/22 12:45 Resp 24 H 07/11/22 12:45 BP 169/85 07/11/22 12:45 Pulse Ox 95 07/11/22 12:45 O2 Del Method Room Air 07/11/22 08:00 Discharge Plan Discharge Patient Disposition: Home Health Service Condition: Stable Prescriptions: New ciprofloxacin HCl 500 mg tablet 500 mg PO BID Qty: 8 0RF losartan 25 mg tablet 25 mg PO DAILY Qty: 90 0RF Continued (DME) Pharmacist Choice Strip See Rx Instructions .Route Qty: 50 2RF Rx Instructions: AC and HS bumetanide 1 mg tablet 2 mg PO BID PRN (Reason: Edema) Qty: 30 3RF diltiazem HCl 300 mg capsule,extended release 24hr 300 mg PO QAM Qty: 30 3RF levothyroxine 175 mcg tablet 175 mcg PO QAM 90 Days Qty: 90 1RF pantoprazole [Protonix] 40 mg tablet,delayed release (DR/EC) 40 mg PO BEDTIME Qty: 30 3RF pramipexole [Mirapex] 0.5 mg tablet 1 mg PO BEDTIME Qty: 30 4RF potassium chloride [Klor-Con M20] 20 mEq tablet,ER particles/crystals 20 meq PO BID PRN (Reason: low potassium) Qty: 30 3RF Rx Instructions: dose gets adjusted on mon,wed and fri neomycin-polymyxin B-dexameth [Maxitrol] 3.5mg/mL-10,000 unit/mL-0.1 % drops,suspension 1 drp ophthalmic (eye) Q12H Qty: 5 0RF (DME) blood-glucose meter,continuous Misc See Rx Instructions .Route Qty: 1 0RF Rx Instructions: As directed one meter with all necessary supplies (DME) cpap mask and supplies See Rx Instructions .Route .MEDSUPPLY Qty: 1 0RF Rx Instructions: As directed spironolactone 50 mg tablet 50 mg PO BID Qty: 60 2RF Rx Instructions: Dose change Antibiotic (mxrnl-svmrw-dytmf) 3.5mg-400 unit- 5,000 unit/gram ointment 1 applic topical QID 5 Days Qty: 14 0RF (DME) diabetic supplies, miscellan. Misc See Rx Instructions .Route Qty: 1 0RF Rx Instructions: As directed polyethylene glycol 3350 [Miralax] 17 gram/dose Powder 17 g PO DAILY PRN (Reason: Constipation) lactulose 10 gram/15 mL solution 30 ml PO BID PRN (Reason: Constipation) Eliquis 5 mg tablet 5 mg PO BID ondansetron HCl 8 mg Tablet 8 mg PO Q8H PRN (Reason: Nausea And Vomiting) Victoza 3-Nabeel 0.6 mg/0.1 mL (18 mg/3 mL) pen injector 1.8 mg SUBCUT QAM Rx Instructions: (not started as of 07/07/22) Changed dexamethasone 1 mg tablet 1.5 mg PO QAM Qty: 60 2RF Discharge Orders: Discharge Order (Routine); Ordered 07/11/22 Ordered By: Jarvis Cormier Referrals: [facility] [Provider Group] (Per appt DR OFFICE WILL CALL WITH APPOINTMENT) [facility] ([facility]) [Outside] Piedad Sandhu MD [Primary Care Provider] - 07/18/22 10:00 am Patient Instructions: Ciprofloxacin (By mouth) (Cipro), Losartan (By mouth), Urinary Tract Infection in Women (GEN), Opioid Safety Activity Restrictions/Additional Instructions: Return to the hospital in case you start feeling worse, spiking fever, having abdominal pain, or any other concerning symptoms. Monitor your blood pressures 3 times daily, write down values to bring to your appointment. Small dose losartan is added to your medication regimen. Please not take losartan if your blood pressure is decreasing below 120/80. Discharge Attestations Time Spent in Discharge Care*: greater than 30 min Status at Discharge: Cognitive status at discharge: cognitively intact, Behavioral status at discharge: can be uncooperative, Quality Metrics Clinical Quality Measures [ No reported AMI, CVA or VTE this stay] Coding Level of Care Code 20323 Total time (in minutes) for Discharge: 35 Diagnoses Malaise R53.81 UTI (urinary tract infection) N39.0
== END 2022-07-11 13:01 | disposition home health service (06) | DRG 690 ==
LOC: ER 13:22 → MEDSURG 18:24
PROVIDERS: Admitting Provider Internal Medicine; Emergency Provider Emergency Medicine; PCP Family Medicine; Visit Provider Internal Medicine
DX: N39.0 Urinary tract infection, site not specified (principal); I13.0 Hypertensive heart and chronic kidney disease with heart failure and stage 1 through stage 4 chronic kidney disease, or unspecified chronic kidney disease; I50.32 Chronic diastolic (congestive) heart failure; E23.0 Hypopituitarism; E87.1 Hypo-osmolality and hyponatremia; Z16.12 Extended spectrum beta lactamase (ESBL) resistance; Z68.43 Body mass index [BMI] 50.0-59.9, adult; Z79.52 Long term (current) use of systemic steroids; Z96.82 Presence of neurostimulator; Z79.01 Long term (current) use of anticoagulants; Z79.4 Long term (current) use of insulin; B96.89 Other specified bacterial agents as the cause of diseases classified elsewhere; E11.22 Type 2 diabetes mellitus with diabetic chronic kidney disease; N18.9 Chronic kidney disease, unspecified; I48.0 Paroxysmal atrial fibrillation; G89.29 Other chronic pain; M54.9 Dorsalgia, unspecified; Z86.16 Personal history of COVID-19; Z87.440 Personal history of urinary (tract) infections; I27.20 Pulmonary hypertension, unspecified; G47.33 Obstructive sleep apnea (adult) (pediatric); E66.01 Morbid (severe) obesity due to excess calories
CPT/HCPCS: 36415; 36416; 36600; 51701; 71045; 74176; 80053; 81001; 82533; 82803; 82962; 83605; 83880; 84484; 85025; 87040; 87086; 87635; 93005; 96365; 96372; 99285; G0378; J0744; J1100; J1815

== ENCOUNTER 2022-07-14 13:37 | Outpatient (CLI) | payer MEDICARE, OTHER, SELFPAY ==
[2022-07-14 13:47] LABS: Basophils % 0.2 %; Eosinophils # 0.2 10^3/uL (0.0-0.8); Eosinophils % 0.8 %; Hematocrit 48.7 % (37.0-47.0); Hemoglobin 13.8 g/dL (11.5-15.3); Lymphocytes # 1.2 10^3/uL (0.8-4.8); Mean Corpuscular HGB Conc 28.3 g/dL (30.0-36.0); Mean Corpuscular Hemoglobin 21.1 pg (28.0-34.0); Mean Corpuscular Volume 74.5 fl (81-99); Mean Platelet Volume 9.8 fL (7.4-10.4); Monocytes # 1.9 10^3/uL (0.2-0.9); Monocytes % 9.7 %; Neutrophils # 15.46 10^3/uL (1.8-7.7); Neutrophils % 79.9 %; Nucleated Red Blood Cells % 0 %; Platelet Count 293 10^3/cmm (130-400); Red Blood Count 6.54 10^6/uL (4.1-5.3); Red Cell Distribution Width 23.7 % (12.1-15.1); White Blood Count 19.3 10^3/uL (4.0-10.0)
[2022-07-14 14:06] LABS: Anion Gap 17.3 (5-19); Blood Urea Nitrogen 27 mg/dL (8-23); Calcium 9.4 mg/dL (8.5-10.5); Carbon Dioxide 25 mmol/L (22-29); Chloride 93 mmol/L (98-107); Glomerular Filtration Rate 71.1 mL/min (90-130); Glucose 91 mg/dL (65-115); Osmolality Calculated 277 mOsm/kg (285-295); Potassium 4.3 mmol/L (3.5-5.1); Sodium 131 mmol/L (136-145)
== END 2022-07-14 13:38 | disposition home or self-care (01) ==
LOC: LAB 13:38
PROVIDERS: PCP Family Medicine; Visit Provider Family Medicine
DX: N18.31 Chronic kidney disease, stage 3a (principal); I48.0 Paroxysmal atrial fibrillation
CPT/HCPCS: 80048; 85025

== ENCOUNTER 2022-07-18 06:30 | Outpatient (CLI) | payer MEDICARE, OTHER, SELFPAY | END 2022-07-18 06:31 | disposition home or self-care (01) | LOC: LAB 07-19 06:30 | PROVIDERS: PCP Family Medicine; Visit Provider Family Medicine | DX: N18.31 Chronic kidney disease, stage 3a (principal); I48.0 Paroxysmal atrial fibrillation; E27.40 Unspecified adrenocortical insufficiency; E03.9 Hypothyroidism, unspecified; E11.9 Type 2 diabetes mellitus without complications; F19.20 Other psychoactive substance dependence, uncomplicated; N39.0 Urinary tract infection, site not specified | CPT/HCPCS: 80053; 80061; 83036; 84439; 84443; 85025 ==

== ENCOUNTER 2022-07-20 10:52 | Outpatient (CLI) | payer MEDICARE, OTHER, SELFPAY ==
[2022-07-20 11:27] LABS: Hematocrit 46.1 % (37.0-47.0); Mean Corpuscular HGB Conc 28.2 g/dL (30.0-36.0); Mean Corpuscular Hemoglobin 21.5 pg (28.0-34.0); Mean Corpuscular Volume 76.2 fl (81-99); Mean Platelet Volume 9.9 fL (7.4-10.4); Platelet Count 260 10^3/cmm (130-400); Red Blood Count 6.05 10^6/uL (4.1-5.3); White Blood Count 19.1 10^3/uL (4.0-10.0)
[2022-07-20 11:49] LABS: Blood Urea Nitrogen 27 mg/dL (8-23); Calcium 9.1 mg/dL (8.5-10.5); Carbon Dioxide 23 mmol/L (22-29); Chloride 95 mmol/L (98-107); Glomerular Filtration Rate 82.7 mL/min (90-130); Glucose 160 mg/dL (65-115); Osmolality Calculated 279 mOsm/kg (285-295); Sodium 130 mmol/L (136-145)
[2022-07-20 11:50] LABS: Anion Gap 16.9 (5-19); Potassium 4.9 mmol/L (3.5-5.1)
[2022-07-20 12:15] LABS: Absolute Neutrophil 17.2 10^3/cmm (1.4-6.5); Absolute Segmented Neutrophil 16.8 10/cmm (1.6-7.1); Band Neutrophils Absolute 0.4 10^3/cmm (0.0-1.2); Eosinophils 0 %; Lymphocytes 6 %; Lymphocytes Absolute 1.1 10^3/cmm (1.2-3.4); Monocytes Absolute 0.6 10^3/cmm (0.1-0.6); Platelet Estimate Normal (Normal); Segmented Neutrophils 88 %; Slide Review Slide Review Perform; Total Cells Counted 100 (0-100)
== END 2022-07-20 10:53 | disposition home or self-care (01) ==
LOC: LAB 10:54
PROVIDERS: PCP Family Medicine; Visit Provider Family Medicine
DX: Z01.89 Encounter for other specified special examinations (principal)
CPT/HCPCS: 80048; 85007; 85025

== ENCOUNTER → 2022-07-21 10:25 | Outpatient (BNVA) | payer MEDICARE, OTHER, SELFPAY | PROVIDERS: PCP Family Medicine; Visit Provider Student in an Organized Health Care Education/Training Program | DX: N39.0 Urinary tract infection, site not specified (principal); R31.9 Hematuria, unspecified; E27.40 Unspecified adrenocortical insufficiency | CPT/HCPCS: 99205 ==

== ENCOUNTER 2022-07-25 12:18 | Outpatient (CLI) | payer MEDICARE, OTHER, SELFPAY ==
[2022-07-22 18:37] LABS: Hematocrit 44.5 % (37.0-47.0); Hemoglobin 12.7 g/dL (11.5-15.3); Mean Corpuscular HGB Conc 28.5 g/dL (30.0-36.0); Mean Corpuscular Hemoglobin 21.7 pg (28.0-34.0); Mean Corpuscular Volume 75.9 fl (81-99); Mean Platelet Volume 9.8 fL (7.4-10.4); Platelet Count 266 10^3/cmm (130-400); Red Blood Count 5.86 10^6/uL (4.1-5.3); Red Cell Distribution Width 22.8 % (12.1-15.1); White Blood Count 19.5 10^3/uL (4.0-10.0)
[2022-07-22 19:04] LABS: Blood Urea Nitrogen 31 mg/dL (8-23); Calcium 9.1 mg/dL (8.5-10.5); Carbon Dioxide 25 mmol/L (22-29); Chloride 94 mmol/L (98-107); Glomerular Filtration Rate 82.7 mL/min (90-130); Glucose 145 mg/dL (65-115); Osmolality Calculated 283 mOsm/kg (285-295); Sodium 132 mmol/L (136-145)
[2022-07-22 19:12] LABS: Anion Gap 18.4 (5-19); Potassium 5.4 mmol/L (3.5-5.1)
[2022-07-22 19:31] LABS: Add RBC Morph Yes; RBC Morph Comp No
[2022-07-22 19:32] LABS: Hypochromasia 1+; Macrocytosis 1+; Microcytosis 1+; Polychromasia 1+; Total Cells Counted 100 (0-100)
[2022-07-22 19:33] LABS: Absolute Segmented Neutrophil 15.8 10/cmm (1.6-7.1); Band Neutrophils Absolute 0.2 10^3/cmm (0.0-1.2); Eosinophils 0 %; Lymphocytes 9 %; Lymphocytes Absolute 1.8 10^3/cmm (1.2-3.4); Platelet Estimate Normal (Normal); Segmented Neutrophils 81 %
[2022-07-25 12:33] LABS: Basophils # 0.1 10^3/uL (0.0-0.1); Basophils % 0.4 %; Eosinophils # 0.2 10^3/uL (0.0-0.8); Hematocrit 46.9 % (37.0-47.0); Hemoglobin 13.6 g/dL (11.5-15.3); Lymphocytes # 2.3 10^3/uL (0.8-4.8); Lymphocytes % 12.3 %; Mean Corpuscular Hemoglobin 21.3 pg (28.0-34.0); Mean Corpuscular Volume 73.5 fl (81-99); Mean Platelet Volume 9.6 fL (7.4-10.4); Monocytes # 1.5 10^3/uL (0.2-0.9); Neutrophils # 13.58 10^3/uL (1.8-7.7); Neutrophils % 73.8 %; Nucleated Red Blood Cells % 0.1 %; Platelet Count 249 10^3/cmm (130-400); Red Blood Count 6.38 10^6/uL (4.1-5.3); Red Cell Distribution Width 23.4 % (12.1-15.1); White Blood Count 18.4 10^3/uL (4.0-10.0)
[2022-07-25 12:54] LABS: Blood Urea Nitrogen 40 mg/dL (8-23); Calcium 9.4 mg/dL (8.5-10.5); Carbon Dioxide 27 mmol/L (22-29); Chloride 86 mmol/L (98-107); Glomerular Filtration Rate 49.1 mL/min (90-130); Glucose 127 mg/dL (65-115); Magnesium 1.6 mg/dL (1.7-2.3); Osmolality Calculated 279 mOsm/kg (285-295); Sodium 129 mmol/L (136-145)
[2022-07-25 12:59] LABS: Anion Gap 19.9 (5-19); Potassium 3.9 mmol/L (3.5-5.1)
== END 2022-07-25 12:19 | disposition home or self-care (01) ==
LOC: LAB 12:19
PROVIDERS: PCP Family Medicine; Visit Provider Family Medicine
DX: N18.31 Chronic kidney disease, stage 3a (principal); I48.0 Paroxysmal atrial fibrillation; Z79.899 Other long term (current) drug therapy
CPT/HCPCS: 80048; 83735; 85007; 85025; 99214

== ENCOUNTER 2022-07-29 16:39 | Outpatient (CLI) | payer MEDICARE, OTHER, SELFPAY ==
[2022-07-29 19:51] LABS: Anion Gap 16.7 (5-19); Blood Urea Nitrogen 22 mg/dL (8-23); Carbon Dioxide 26 mmol/L (22-29); Chloride 92 mmol/L (98-107); Glomerular Filtration Rate 70.9 mL/min (90-130); Glucose 151 mg/dL (65-115); Osmolality Calculated 276 mOsm/kg (285-295); Potassium 4.7 mmol/L (3.5-5.1); Sodium 130 mmol/L (136-145)
[2022-07-29 20:17] LABS: Hematocrit 44.8 % (37.0-47.0); Hemoglobin 12.6 g/dL (11.5-15.3); Mean Corpuscular HGB Conc 28.1 g/dL (30.0-36.0); Mean Corpuscular Hemoglobin 22.1 pg (28.0-34.0); Mean Corpuscular Volume 78.5 fl (81-99); Mean Platelet Volume 10.6 fL (7.4-10.4); Platelet Count 236 10^3/cmm (130-400); Red Blood Count 5.71 10^6/uL (4.1-5.3); White Blood Count 14.3 10^3/uL (4.0-10.0)
[2022-07-29 20:56] LABS: Absolute Segmented Neutrophil 10.4 10/cmm (1.6-7.1); Band Neutrophils Absolute 0.4 10^3/cmm (0.0-1.2); Lymphocytes 12 %; Monocytes Absolute 0.7 10^3/cmm (0.1-0.6); Segmented Neutrophils 73 %; Total Cells Counted 100 (0-100)
[2022-07-29 20:57] LABS: Absolute Eosinophils 0.1 10^3/cmm (0.0-0.7); Absolute Neutrophil 10.9 10^3/cmm (1.4-6.5); Anisocytosis 1+; Eosinophils 1 %; Hypochromasia 1+; Lymphocytes Absolute 1.9 10^3/cmm (1.2-3.4); Macrocytosis Trace; Microcytosis 2+; Platelet Estimate Normal (Normal)
== END 2022-07-29 16:40 | disposition home or self-care (01) ==
LOC: LAB 16:43
PROVIDERS: PCP Family Medicine; Visit Provider Family Medicine
DX: Z01.89 Encounter for other specified special examinations (principal)
CPT/HCPCS: 80048; 85007; 85025

== ENCOUNTER 2022-08-01 11:06 | Outpatient (CLI) | payer MEDICARE, OTHER, SELFPAY ==
[2022-08-01 12:20] LABS: Basophils # 0.1 10^3/uL (0.0-0.1); Basophils % 0.4 %; Eosinophils # 0.1 10^3/uL (0.0-0.8); Eosinophils % 0.8 %; Hematocrit 42.7 % (37.0-47.0); Hemoglobin 12.3 g/dL (11.5-15.3); Mean Corpuscular HGB Conc 28.8 g/dL (30.0-36.0); Mean Corpuscular Volume 76.4 fl (81-99); Mean Platelet Volume 9.7 fL (7.4-10.4); Monocytes # 1.1 10^3/uL (0.2-0.9); Monocytes % 8.1 %; Neutrophils # 10.07 10^3/uL (1.8-7.7); Nucleated Red Blood Cells % 0.2 %; Platelet Count 212 10^3/cmm (130-400); Red Blood Count 5.59 10^6/uL (4.1-5.3); Red Cell Distribution Width 23.1 % (12.1-15.1); White Blood Count 12.9 10^3/uL (4.0-10.0)
[2022-08-01 12:40] LABS: Blood Urea Nitrogen 23 mg/dL (8-23); Calcium 9.1 mg/dL (8.5-10.5); Carbon Dioxide 22 mmol/L (22-29); Chloride 91 mmol/L (98-107); Glomerular Filtration Rate 61.9 mL/min (90-130); Glucose 158 mg/dL (65-115); Magnesium 2.3 mg/dL (1.7-2.3); Osmolality Calculated 269 mOsm/kg (285-295); Sodium 126 mmol/L (136-145)
[2022-08-01 12:43] LABS: Anion Gap 18.3 (5-19); Potassium 5.3 mmol/L (3.5-5.1)
== END 2022-08-01 11:07 | disposition home or self-care (01) ==
LOC: LAB 11:13
PROVIDERS: PCP Family Medicine; Visit Provider Family Medicine
DX: N18.31 Chronic kidney disease, stage 3a (principal); I48.0 Paroxysmal atrial fibrillation
CPT/HCPCS: 80048; 83735; 85025

== ENCOUNTER 2022-08-04 10:03 | Outpatient (CLI) | payer MEDICARE, OTHER, SELFPAY ==
[2022-08-04 10:35] LABS: Basophils % 0.3 %; Eosinophils # 0.1 10^3/uL (0.0-0.8); Eosinophils % 1.1 %; Hematocrit 45.2 % (37.0-47.0); Hemoglobin 12.9 g/dL (11.5-15.3); Lymphocytes # 1.3 10^3/uL (0.8-4.8); Lymphocytes % 10.3 %; Mean Corpuscular HGB Conc 28.5 g/dL (30.0-36.0); Mean Corpuscular Hemoglobin 22.1 pg (28.0-34.0); Mean Corpuscular Volume 77.4 fl (81-99); Mean Platelet Volume 9.8 fL (7.4-10.4); Monocytes # 1.1 10^3/uL (0.2-0.9); Monocytes % 9.1 %; Neutrophils # 9.35 10^3/uL (1.8-7.7); Neutrophils % 76.4 %; Nucleated Red Blood Cells % 0 %; Platelet Count 234 10^3/cmm (130-400); Red Blood Count 5.84 10^6/uL (4.1-5.3); Red Cell Distribution Width 22.8 % (12.1-15.1); White Blood Count 12.2 10^3/uL (4.0-10.0)
[2022-08-04 11:00] LABS: Anion Gap 14.3 (5-19); Blood Urea Nitrogen 23 mg/dL (8-23); Carbon Dioxide 29 mmol/L (22-29); Chloride 93 mmol/L (98-107); Glomerular Filtration Rate 44.4 mL/min (90-130); Glucose 153 mg/dL (65-115); Magnesium 2.2 mg/dL (1.7-2.3); Osmolality Calculated 281 mOsm/kg (285-295); Potassium 4.3 mmol/L (3.5-5.1); Sodium 132 mmol/L (136-145)
== END 2022-08-04 10:04 | disposition home or self-care (01) ==
LOC: LAB 10:07
PROVIDERS: PCP Family Medicine; Visit Provider Family Medicine
DX: E11.9 Type 2 diabetes mellitus without complications (principal)
CPT/HCPCS: 80048; 83735; 85025

== ENCOUNTER 2022-08-11 10:09 | Outpatient (CLI) | payer MEDICARE, OTHER, SELFPAY ==
[2022-08-11 10:31] LABS: Hematocrit 47.3 % (37.0-47.0); Hemoglobin 13.8 g/dL (11.5-15.3); Mean Corpuscular HGB Conc 29.2 g/dL (30.0-36.0); Mean Corpuscular Hemoglobin 22.8 pg (28.0-34.0); Mean Corpuscular Volume 78.3 fl (81-99); Mean Platelet Volume 9.2 fL (7.4-10.4); Platelet Count 254 10^3/cmm (130-400); Red Blood Count 6.04 10^6/uL (4.1-5.3); Red Cell Distribution Width 23.3 % (12.1-15.1); White Blood Count 17.4 10^3/uL (4.0-10.0)
[2022-08-11 11:03] LABS: Anion Gap 16.2 (5-19); Blood Urea Nitrogen 38 mg/dL (8-23); Calcium 9.7 mg/dL (8.5-10.5); Carbon Dioxide 27 mmol/L (22-29); Chloride 92 mmol/L (98-107); Glomerular Filtration Rate 44.4 mL/min (90-130); Glucose 144 mg/dL (65-115); Osmolality Calculated 284 mOsm/kg (285-295); Potassium 4.2 mmol/L (3.5-5.1); Sodium 131 mmol/L (136-145)
[2022-08-11 11:06] LABS: Slide Review Slide Review Perform
[2022-08-11 11:07] LABS: Total Cells Counted 100 (0-100)
[2022-08-11 11:08] LABS: Absolute Eosinophils 0.1 10^3/cmm (0.0-0.7); Absolute Neutrophil 13.9 10^3/cmm (1.4-6.5); Absolute Segmented Neutrophil 13.9 10/cmm (1.6-7.1); Eosinophils 1 %; Lymphocytes 6 %; Monocytes Absolute 1.7 10^3/cmm (0.1-0.6); Platelet Estimate Normal (Normal); Segmented Neutrophils 80 %
== END 2022-08-11 10:10 | disposition home or self-care (01) ==
PROVIDERS: PCP Family Medicine; Visit Provider Family Medicine
DX: N18.31 Chronic kidney disease, stage 3a (principal); I48.0 Paroxysmal atrial fibrillation
CPT/HCPCS: 80048; 85007; 85025

== ENCOUNTER 2022-08-14 12:56 | Inpatient (IN) | payer MEDICARE, OTHER, SELFPAY ==
[2022-08-14] VITALS (50 sets, daily range): BP systolic 53–125; BP diastolic 26–82; PULSE 48–150; RESP 16–37; TEMP 36.6–36.7; O2SAT 68–99; BMI 55.7
--- NOTE | 2022-08-14 13:06 | XRR_ITS ---
PROCEDURE INFORMATION: Exam: XR Chest Exam date and time: 08/14/2022 1:12 PM Age: 72 years old Clinical indication: Cough and dyspnea; Additional info: Dyspnea/cough TECHNIQUE: Imaging protocol: Radiologic exam of the chest. Views: 1 view. COMPARISON: CR (CHEST, ) 07/09/2022 1:27 PM FINDINGS: Tubes, catheters and devices: Cardiac device left anterior chest in good position Lungs: Low lung volumes seen. The lungs are otherwise clear. Pleural spaces: Unremarkable. No pleural effusion. No pneumothorax. Heart/Mediastinum: Unremarkable. No cardiomegaly. Bones/joints: Unremarkable. XR/XR chest 1V portable [id number] IMPRESSION: 1. No acute findings. 2. Low lung volumes. 3. Cardiac device left anterior chest in good position
--- NOTE | 2022-08-14 13:06 | ECG_ITS ---
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 Measurements Intervals [place] Rate: 148 P: 0 MA: 0 QRS: -56 QRSD: 93 T: 73 QT: 307 QTc: 482 Interpretive Statements ATRIAL FLUTTER WITH RAPID VENTRICULAR RESPONSE LEFT ANTERIOR FASCICULAR BLOCK [QRS AXIS <= -45, QR IN I, RS IN II] POSSIBLE ANTERIOR MYOCARDIAL INFARCTION , PROBABLY OLD [30 ms Q WAVE IN V3/V4, OR R < 0.2 mV IN V4] Compared to ECG 07/09/2022 21:32:55 Left anterior fascicular block now present Sinus rhythm no longer present Myocardial infarct finding still present Electronically Signed On 08-14-2022 19:25:42 CDT by Bahman Rowland M.D. [email or web address]
--- NOTE | 2022-08-14 13:08 | ED_ITS ---
HPI - General Adult General: Chief complaint: Weakness Stated complaint: N/V; SOB Time Seen by Provider: 08/14/22 12:58 Source: patient Mode of arrival: EMS History of Present Illness: 72-year-old female presents to the emergency room with complaint of shortness of breath poor urinary output and generally not feeling well. 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 She presents here she is noted on the rhythm strip to be in A-fib with RVR. She denies any chest pain she has a history of pituitary adenoma and is on steroids for same. For the last day she has not been to take any of her medications including Eliquis or Cardizem. States she has been sick to her stomach and throwing up. She was discharged home on ciprofloxacin but I cannot tell from the paperwork she had if this was prophylactic or if she had a specific infection she is unsure. Onset (ago): hour(s) Relieving factors: none Exacerbating factors: none Associated symptoms: Reports dyspnea and other (Decreased urinary output); Deny chest pain, confusion, cough, diaphoresis, decreased appetite, fevers/chills, headache(s), malaise, nausea, rash, palpitations, seizures, short of breath, syncope, vomiting or weakness Review of Systems Const: Denies: fever(s), chills, fatigue, malaise or diaphoresis ENMT: Denies: throat pain, ear or mastoid pain, nasal discharge or nasal congestion Card: Denies: chest pain, palpitations or syncope Resp: Reports: dyspnea GI: Denies: abdominal pain, nausea or vomiting : Denies: flank pain, difficulty voiding, dysuria, urinary frequency or urinary urgency Skin/Breast: Denies: rash Neuro: Denies: headache(s) or confusion PFS ED PFSH: Medical History Acute hypercapnic respiratory failure Acute kidney injury superimposed on chronic kidney disease Acute kidney injury superimposed on CKD Adrenal insufficiency Anasarca Anemia Atrial fibrillation Benign essential hypertension with target blood pressure below 140/90 Central hypothyroidism CHF (congestive heart failure) Chronic back pain Follows at pain clinic for periodic injections Chronic hyponatremia Colitis COVID-19 (~09/2020) Diastolic heart failure Edema ESBL (extended spectrum beta-lactamase) producing bacteria infection Facet arthritis, degenerative, lumbar spine Fatigue Gastroenteritis History of adrenal insufficiency History of anaphylaxis History of atrial fibrillation Intermittent, has not required long-term anticoagulation or focused treatment History of COVID-19 HTN (hypertension) Hx of atrial fibrillation, no current medication Hyperaldosteronism Hypokalemia Hypomagnesemia Hypophosphatemia 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 Increased nausea and vomiting VINNY-2 gene mutation Lumbar spondylolysis Metabolic acidosis Nausea vomiting and diarrhea OAB (overactive bladder) Obesity Obesity, morbid, BMI 50 or higher Obstructive sleep apnea KP (obstructive sleep apnea) Paroxysmal atrial fibrillation Pituitary macroadenoma with extrasellar extension Polycythemia vera Prediabetes Pulmonary hypertension PVD (peripheral vascular disease) Shock Stasis edema with ulcer and inflammation Steroid dependence Tachycardia Type 2 diabetes mellitus with other diabetic kidney complication Unsteady gait UTI (urinary tract infection) Venous (peripheral) insufficiency Volume overload VT (ventricular tachycardia) Surgical History H/O shoulder surgery History of hysterectomy History of pituitary surgery S/P insertion of spinal cord stimulator Family History Father Cancer pancreatic cancer Sister No problems noted. 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 Current gender identity: Female Physical Exam Const: GENERAL APPEARANCE: cooperative NUTRITIONAL APPEARANCE: obese ORIENTATION/CONSCIOUSNESS: Yes awake, Yes oriented to person, Yes oriented to place and Yes oriented to time HENMT: COMMON NORMALS: normocephalic, atraumatic and hearing grossly normal bi laterally HEAD & SCALP: normocephalic and atraumatic Resp: COMMON NORMALS: normal respiratory effort, No retractions, No use of accessory muscles and clear to auscultation bilaterally AUSCULTATION: clear to auscultation bilaterally Cardio: COMMON NORMALS: No murmurs present (Cardio) RATE: tachycardic RHYTHM: abnormal rhythm irregularly irregular GI: COMMON NORMALS: Soft to palpation and No hepatosplenomegaly present AUSCULTATION: Yes normoactive bowel sounds PALPATION: Yes Soft to palpation, No Tenderness to palpation present (GI), No Guarding due to palpation present ( GI) and Yes No hepatosplenomegaly present Extremity: COMMON NORMALS: normal to inspection, capillary refill normal, no clubbing, cyanosis or edema, no calf tenderness and no pedal edema Neuro: SENSORIUM/ORIENTATION: Yes oriented to person, Yes oriented to place and Yes oriented to time Skin: COMMON NORMALS: no rashes or lesions noted GENERAL SKIN EXAM: no rashes or lesions noted Course Vital Signs: Vital signs: Vital Signs Temperature 97.8 F 08/14/22 13:08 Pulse Rate 150 H 08/14/22 14:09 Respiratory Rate 20 H 08/14/22 13:08 Blood Pressure 125/82 08/14/22 13:08 Pulse Oximetry 96 08/14/22 13:08 Oxygen Delivery Me thod Nasal Cannula 08/14/22 13:08 Oxygen Flow Rate 2 08/14/22 13:08 [facility] - General Adult Medical Decision Making Patient A-fib with RVR with a mild acute kidney injury. She reports a history of congestive heart failure she does not look like she is in failure at this point. We will admit. Her rate is controlled at this point on Cardizem IV drip. Will offer her regular doses of diltiazem now. Did give her Lovenox earlier since she was unable to keep anything down. Random cortisol level is pending discussed Dr. Hernadez orders have been written. Medical Records I reviewed the patient's medical records. Lab Data I reviewed the patient's lab results. 08/14/22 13:10 08/14/22 13:10 Radiology Impressions Chest X-Ray 08/14/22 13:06 IMPRESSION: 1. No acute findings. 2. Low lung volumes. 3. Cardiac device left anterior chest in good position Laboratory Results WBC 21.4 10^3/uL (4.0-10.0) H 08/14/22 13:10 RBC 5.73 10^6/uL (4.1-5.3) H 08/14/22 13:10 Hgb 13.1 g/dL (11.5-15.3) 08/14/22 13:10 Hct 45.1 % (37.0-47.0) 08/14/22 13:10 MCV 78.7 fl (81-99) L 08/14/22 13:10 MCH 22.9 pg (28.0-34.0) L 08/14/22 13:10 MCHC 29.0 g/dL (30.0-36.0) L 08/14/22 13:10 RDW 23.2 % (12.1-15.1) H 08/14/22 13:10 Plt Count 247 10^3/cmm (130-400) 08/14/22 13:10 MPV 9.7 fL (7.4-10.4) 08/14/22 13:10 Lymph % (Auto) Not Reportable 08/14/22 13:10 [place] % (Auto) Not Reportable 08/14/22 13:10 Lymph # (Auto) Not Reportable 08/14/22 13:10 [place] # (Auto) Not Reportable 08/14/22 13:10 Total Counted 100 (0-100) 08/14/22 13:10 Atypical Lymphs % 0.0 % (0-5) 08/14/22 13:10 Absolute Neutrophils 17.3 10^3/cmm (1.4-6.5) H 08/14/22 13:10 Segmented Neutrophils 71 % 08/14/22 13:10 Abs Segm Neuts (Man) 15.2 10/cmm (1.6-7.1) H 08/14/22 13:10 Band Neutrophils 10.0 % 08/14/22 13:10 Abs Band Neuts (Man) 2.1 10^3/cmm (0.0-1.2) H 08/14/22 13:10 Absolute Lymphocytes 1.7 10^3/cmm (1.2-3.4) 08/14/22 13:10 Lymphocytes (Manual) 8 % 08/14/22 13:10 Monocytes (Manual) 5.0 % 08/14/22 13:10 Absolute Monocytes 1.1 10^3/cmm (0.1-0.6) H 08/14/22 13:10 Eosinophils (Manual) 2 % 08/14/22 13:10 Absolute Eosinophils 0.4 10^3/cmm (0.0-0.7) 08/14/22 13:10 Basophils (Manual) 0.0 % 08/14/22 13:10 Absolute Basophils 0.0 10^3/cmm (0.0-0.2) 08/14/22 13:10 Metamyelocytes 4.0 % 08/14/22 13:10 Platelet Estimate Normal (Normal) 08/14/22 13:10 Sodium 133 mmol/L (136-145) L 08/14/22 13:10 Potassium 3.9 mmol/L (3.5-5.1) 08/14/22 13:10 Chloride 94 mmol/L (98-107) L 08/14/22 13:10 Carbon Dioxide 22 mmol/L (22-29) 08/14/22 13:10 Anion Gap 20.9 (5-19) H 08/14/22 13:10 BUN 43 mg/dL (8-23) H 08/14/22 13:10 Creatinine 2.4 mg/dL (0.5-0.9) H 08/14/22 13:10 GFR Calculation 20.0 mL/min (90-130) L 08/14/22 13:10 Glucose 109 mg/dL (65-115) 08/14/22 13:10 Calculated Osmolality 287 mOsm/kg (285-295) 08/14/22 13:10 Calcium 8.4 mg/dL (8.5-10.5) L 08/14/22 13:10 Total Bilirubin 0.5 mg/dL (0.15-1.2) 08/14/22 13:10 AST 20 U/L (0-32) 08/14/22 13:10 ALT 35 U/L (0-33) H 08/14/22 13:10 Alkaline Phosphatase 91 U/L (35-105) 08/14/22 13:10 Troponin T Baseline 72 ng/L (0-10) H 08/14/22 13:10 NT-Pro-B Natriuret Pep 692 pg/mL (0-125) H 08/14/22 13:10 Total Protein 5.5 g/dL (6.6-8.7) L 08/14/22 13:10 Albumin 3.5 g/dL (3.5-5.2) 08/14/22 13:10 Globulin 2.0 g/dL (1.3-4.6) 08/14/22 13:10 Urine Color Dark yellow (Yellow) 08/14/22 14:00 Urine Appearance Clear (CLEAR) 08/14/22 14:00 Urine pH 5 (5-7) 08/14/22 14:00 Ur Specific [place] 1.020 (1.005-1.030) 08/14/22 14:00 Urine Protein Neg (Negative) 08/14/22 14:00 Urine Glucose (UA) Norm (Normal) 08/14/22 14:00 Urine Ketones 1+ (Negative) H 08/14/22 14:00 Urine Blood Neg (Negative) 08/14/22 14:00 Urine Nitrate Negative (Negative) 08/14/22 14:00 Urine Bilirubin 1+ (Negative) H 08/14/22 14:00 Urine Urobilinogen 1 mg/dL (Negative) H 08/14/22 14:00 Ur Leukocyte Esterase Trace (Negative) H 08/14/22 14:00 Urine RBC None /hpf (0-2) 08/14/22 14:00 Urine WBC 5-10 /hpf (0-5) H 08/14/22 14:00 Ur Squamous Epith Cells 5-10 /hpf (0-5) H 08/14/22 14:00 Amorphous Sediment 1+ /hpf 08/14/22 14:00 Urine Bacteria 1+ /hpf (NONE) H 08/14/22 14:00 Coarse Granular Casts 5-10 /lpf H 08/14/22 14:00 Urine Mucus 1+ /hpf 08/14/22 14:00 Discharge Plan Discharge Patient Disposition: Admitted As Inpatient Clinical Impression: Paroxysmal atrial fibrillation with RVR, RODRIGUE (acute kidney injury), Adrenal insufficiency, Diabetes, Hypothyroid Condition: Stable Prescriptions: No Action (DME) Pharmacist Choice Strip See Rx Instructions .Route Qty: 50 2RF Rx Instructions: AC and HS bumetanide 1 mg tablet 2 mg PO BID PRN (Reason: Edema) Qty: 30 3RF diltiazem HCl 300 mg capsule,extended release 24hr 300 mg PO QAM Qty: 30 3RF levothyroxine 175 mcg tablet 175 mcg PO QAM 90 Days Qty: 90 1RF pramipexole [Mirapex] 0.5 mg tablet 1 mg PO BEDTIME Qty: 30 4RF potassium chloride [Klor-Con M20] 20 mEq tablet,ER particles/crystals 20 meq PO BID PRN (Reason: low potassium) Qty: 30 3RF Rx Instructions: dose gets adjusted on mon,wed and fri neomycin-polymyxin B-dexameth [Maxitrol] 3.5mg/mL-10,000 unit/mL-0.1 % drops,suspension 1 drp ophthalmic (eye) Q12H Qty: 5 0RF dexamethasone 1.5 mg tablet 1.5 mg PO QAM Qty: 30 2RF oxybutynin chloride [Ditropan XL] 10 mg tablet extended release 24hr 10 mg PO DAILY Qty: 30 0RF losartan 50 mg tablet 50 mg PO DAILY Qty: 30 3RF acarbose 25 mg tablet 25 mg PO TID Qty: 90 0RF insulin glargine [Lantus Solostar U-100 Insulin] 100 unit/mL (3 mL) insulin pen 20 unit SUBCUT DAILY 30 Days Qty: 15 0RF (DME) blood-glucose meter,continuous Misc See Rx Instructions .Route Qty: 1 0RF Rx Instructions: As directed one meter with all necessary supplies (DME) cpap mask and supplies See Rx Instructions .Route .MEDSUPPLY Qty: 1 0RF Rx Instructions: As directed Antibiotic (yfcge-ovyqo-pauyb) 3.5mg-400 unit- 5,000 unit/gram ointment 1 applic topical QID 5 Days Qty: 14 0RF escitalopram oxalate [Lexapro] 10 mg tablet 10 mg PO DAILY Qty: 30 1RF ondansetron HCl 8 mg tablet 8 mg PO Q8H PRN (Reason: Nausea And Vomiting) Qty: 30 1RF spironolactone 25 mg tablet See Rx Instructions .ROUTE .COMPLEX Qty: 120 1RF Dose Instruction: TAKE TWO TABLETS BY MOUTH TWICE DAILY Rx Instructions: TAKE TWO TABLETS BY MOUTH TWICE DAILY dexlansoprazole [Dexilant] 60 mg capsule,biphase delayed releas 60 mg PO DAILY Qty: 30 2RF insulin aspart U-100 [Novolog FlexPen U-100 Insulin] 100 unit/mL (3 mL) insulin pen 15 unit SUBCUT TID 90 Days Qty: 40.5 0RF (DME) diabetic supplies, miscellan. Misc See Rx Instructions .Route Qty: 1 0RF Rx Instructions: As directed polyethylene glycol 3350 [Miralax] 17 gram/dose Powder 17 g PO DAILY PRN (Reason: Constipation) lactulose 10 gram/15 mL solution 30 ml PO BID PRN (Reason: Constipation) Eliquis 5 mg tablet 5 mg PO BID Victoza 3-Nabeel 0.6 mg/0.1 mL (18 mg/3 mL) pen injector 1.8 mg SUBCUT QAM Rx Instructions: (not started as of 07/07/22) ciprofloxacin HCl 500 mg tablet 500 mg PO BID Qty: 8 0RF Referrals: Piedad Sandhu MD [Primary Care Provider] - Coding Level of Care Code ED Principal Software Architect for Duarte Molina
[2022-08-14 13:34] LABS: Hematocrit 45.1 % (37.0-47.0); Hemoglobin 13.1 g/dL (11.5-15.3); Mean Corpuscular Hemoglobin 22.9 pg (28.0-34.0); Mean Corpuscular Volume 78.7 fl (81-99); Mean Platelet Volume 9.7 fL (7.4-10.4); Platelet Count 247 10^3/cmm (130-400); Red Blood Count 5.73 10^6/uL (4.1-5.3); Red Cell Distribution Width 23.2 % (12.1-15.1); White Blood Count 21.4 10^3/uL (4.0-10.0)
[2022-08-14] MEDS: dilTIAZem 5 mg/mL SDV 5 mL 10 MG IVP (13:38)
[2022-08-14] MEDS: enoxaparin 120 mg/0.8 mL Syringe SUBCUT (13:38)
[2022-08-14] MEDS: ondansetron 2 mg/ML SDV 2 mL 4 MG IVP ×2 (13:50→21:39)
[2022-08-14 13:51] LABS: Slide Review Slide Review Perform
[2022-08-14 13:57] LABS: Absolute Eosinophils 0.4 10^3/cmm (0.0-0.7); Absolute Segmented Neutrophil 15.2 10/cmm (1.6-7.1); Band Neutrophils Absolute 2.1 10^3/cmm (0.0-1.2); Eosinophils 2 %; Lymphocytes 8 %; Lymphocytes Absolute 1.7 10^3/cmm (1.2-3.4); Monocytes Absolute 1.1 10^3/cmm (0.1-0.6); Segmented Neutrophils 71 %; Total Cells Counted 100 (0-100); Troponin(5th) Baseline 72 ng/L (0-10)
[2022-08-14 13:58] LABS: Absolute Neutrophil 17.3 10^3/cmm (1.4-6.5); Platelet Estimate Normal (Normal)
[2022-08-14 14:04] LABS: Alanine Aminotransferase 35 U/L (0-33); Albumin Level 3.5 g/dL (3.5-5.2); Alkaline Phosphatase 91 U/L (35-105); Blood Urea Nitrogen 43 mg/dL (8-23); Calcium 8.4 mg/dL (8.5-10.5); Carbon Dioxide 22 mmol/L (22-29); Chloride 94 mmol/L (98-107); Glucose 109 mg/dL (65-115); NT Pro B Type Natriuretic Pept 692 pg/mL (0-125); Osmolality Calculated 287 mOsm/kg (285-295); Sodium 133 mmol/L (136-145); Total Bilirubin 0.5 mg/dL (0.15-1.2); Total Protein 5.5 g/dL (6.6-8.7)
[2022-08-14 14:12] LABS: Anion Gap 20.9 (5-19); Aspartate Amino Transferase 20 U/L (0-32); Potassium 3.9 mmol/L (3.5-5.1)
[2022-08-14 14:39] LABS: Glucose Urine UA Norm (Normal); Ketones Urine 1+ (Negative); Protein Urine Neg (Negative); Urine Appearance Clear (CLEAR); Urine Color Dark Yellow (Yellow); pH Urine 5 (5-7)
[2022-08-14 14:40] LABS: Add Urine Microscopic? YES; Amorphous Sediment Urine 1+ /hpf; Bacteria Urine 1+ /hpf; Bilirubin Urine 1+ (Negative); Blood Urine Neg (Negative); Leukocyte Esterase Urine Trace (Negative); Mucus Urine 1+ /hpf; Nitrate Urine Negative (Negative); Urobilinogen Urine 1 mg/dL (Negative)
[2022-08-14 14:41] LABS: Add Urine Culture? No
[2022-08-14] MEDS: dilTIAZem 100 MG in sodium chloride 0.9% (add-van) 100 ML IV (15:00)
[2022-08-14 15:22] LABS: Cortisol Random 3.71 ug/dL (2.47-19.5)
[2022-08-14 15:49] LABS: Reflex Lactate Order REFLEX LACTIC ORDERD
[2022-08-14 16:08] LABS: Lactic Acid level (Lactate) 3.3 mmol/L (0.5-2.2)
[2022-08-14 16:09] LABS: Troponin 5 2HR 82.77 ng/L (0-10)
[2022-08-14 16:13] LABS: Troponin 5 2HR Delta 10.77 ABS# (0-10)
--- NOTE | 2022-08-14 16:20 | ECG_ITS ---
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 Measurements Intervals [place] Rate: 81 P: 58 AL: 141 QRS: -46 QRSD: 94 T: 74 QT: 380 QTc: 442 Interpretive Statements ELECTRONIC VENTRICULAR PACEMAKER Compared to ECG 08/14/2022 13:09:32 Atrial flutter no longer present Left anterior fascicular block no longer present Myocardial infarct finding no longer present Electronically Signed On 08-14-2022 19:26:23 CDT by Bahman Rowland M.D. [id number]
[2022-08-14] MEDS: sodium chloride 0.9% 500 ML IV (17:00)
--- NOTE | 2022-08-14 17:15 | CTR_ITS ---
PROCEDURE INFORMATION: Exam: CT Chest Without Contrast; Diagnostic Exam date and time: 08/14/2022 6:31 PM Age: 72 years old Clinical indication: Nausea and vomiting; Abdominal pain; Generalized; Shortness of breath; Chest pressure; Prior surgery; Surgery date: Post-operative (0-2 days); Surgery type: Pacemaker; Additional info: SOB, abdominal pain, n/v, TECHNIQUE: Imaging protocol: Diagnostic computed tomography of the chest without contrast. Radiation optimization: All CT scans at this facility use at least one of these dose optimization techniques: automated exposure control; mA and/or kV adjustment per patient size (includes targeted exams where dose is matched to clinical indication); or iterative reconstruction. REPORTING DATA: Count of CT and Cardiac NM exams in prior 12 months: This patient has received 5 known CTs and 0 known cardiac nuclear medicine studies in the 12 months prior to the current study. COMPARISON: CR (CHEST, ) 08/14/2022 1:12 PM RADIATION DOSE METRICS: Total DLP (mGy-cm): 1364.8 FINDINGS: Lungs: There is subpleural atelectasis of the dependent portions of the lungs. The lungs are otherwise clear. Pleural spaces: Unremarkable. No pneumothorax. No pleural effusion. Heart: Unremarkable. No cardiomegaly. No pericardial effusion. Lymph nodes: Unremarkable. No enlarged lymph nodes. Vasculature: Unremarkable. No aortic aneurysm. Appendix: A normal appendix is identified. Bones/joints: Unremarkable. No acute fracture. Soft tissues: There is subcutaneous emphysema along the left chest wall especially superior and deep to the pacemaker. PROCEDURE INFORMATION: Exam: CT Abdomen And Pelvis Without Contrast Exam date and time: 08/14/2022 6:31 PM Age: 72 years old Clinical indication: Nausea and vomiting; Abdominal pain; Generalized; Shortness of breath; Chest pressure; Prior surgery; Surgery date: Post-operative (0-2 days); Surgery type: Pacemaker; Additional info: SOB, abdominal pain, n/v, TECHNIQUE: Imaging protocol: Computed tomography of the abdomen and pelvis without contrast. Radiation optimization: All CT scans at this facility use at least one of these dose optimization techniques: automated exposure control; mA and/or kV adjustment per patient size (includes targeted exams where dose is matched to clinical indication); or iterative reconstruction. REPORTING DATA: Count of CT and Cardiac NM exams in prior 12 months: This patient has received 5 known CTs and 0 known cardiac nuclear medicine studies in the 12 months prior to the current study. COMPARISON: CT kidney stone [id number] 07/09/2022 2:36 PM RADIATION DOSE METRICS: Total DLP (mGy-cm): 1364.8 FINDINGS: Tubes, catheters and devices: A balloon bladder catheter is present. A neurostimulator device is present. Liver: There is fatty infiltration liver. Gallbladder and bile ducts: Normal. No calcified stones. No ductal dilation. Pancreas: The pancreas is normal. Spleen: The spleen is normal. Adrenal glands: The adrenal glands are normal. Kidneys and ureters: Normal. No hydronephrosis. Stomach and bowel: There is pneumatosis of the cecum and ascending colon. Gas is identified in the veins medial to the cecum and ascending colon such as series 4, image 85. Moderate diverticulosis is present in the distal colon. There is [id number] wall thickening of the entire colon concerning for colitis or ischemia with pneumatosis only well visualized in the cecum and ascending colon. The stomach and loops of small bowel have an appropriate appearance. Appendix: No evidence of appendicitis. Intraperitoneal space: No free intraperitoneal air. Vasculature: There is portal venous gas. Lymph nodes: Unremarkable.No enlarged lymph nodes. Urinary bladder: The bladder is decompressed. Reproductive: Unremarkable as visualized. Bones/joints: There is osteopenia with severe degenerative changes in the spine. Soft tissues: There is skin thickening and mild edema of the subcutaneous fat of the lower abdominal wall/pannus that may reflect cellulitis. No fluid collection or abscess. There is punctate subcutaneous emphysema in the left lower abdominal wall suspected to be from recent subcutaneous injection. CT/[place] [id number] IMPRESSION: 1. There is subcutaneous emphysema along the left chest wall especially superior and deep to the pacemaker. 2. No additional acute abnormality in the chest. Please see the abdomen pelvis report below for description portal venous gas and probable ischemic right colon. IMPRESSION: 1. Ischemic cecum and ascending colon with pneumatosis in the bowel wall and gas within the adjacent draining veins. Portal venous gas. 2. There is skin thickening and mild edema of the subcutaneous fat of the lower abdominal wall/pannus that may reflect cellulitis. No fluid collection or abscess.
[2022-08-14] MEDS: alum-mag-hydroxide-sime 30 mL UDC PO (17:16)
[2022-08-14] MEDS: promethazine 25 mg/mL SDV 1 mL 12.5 MG IM (17:16)
[2022-08-14] MEDS: dexamethasone 10 mg/mL INJ IVP (17:17)
[2022-08-14] MEDS: pantoprazole 40 mg SDV IVP (17:17)
--- NOTE | 2022-08-14 17:20 | PM.HP ---
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 Today is Monday. Patient presented to the ER today with epigastric abdominal cramps which are burning in nature along with nausea and vomiting since today morning along with diarrhea since last night. Because of the symptoms patient has not been able to take her medications since last night including steroids and Cardizem. Patient denies having any chest pain, dizziness, headache, diarrhea, sick contacts. In the ER patient was found to be in atrial fibrillation with rapid ventricular response for which she was started on Cardizem drip and 500 cc of normal saline bolus was ordered. On examination in the [facility] patient was complaining of abdominal pain along with episode of vomiting. Vomitus is bilious in nature. She is converted back to sinus rhythm with heart rate running in 70s but blood pressure seems to be running at 80 systolics. Patient has not received the bolus as of yet but Cardizem drip is running at 5/h. Patient denies having any dizziness currently. Family at bedside. Patient is able to give her own history by herself. Review of Systems General: Reports: 10 or more systems reviewed and unremarkable except in HPI and below Const: Denies: fever(s), chills, body aches, change in appetite, change in weight, malaise, night sweats, diaphoresis, change in sleep pattern, daytime sleepiness or snoring Eyes: Denies: change in vision, blurry vision, photophobia, eye discomfort or eye discharge ENMT: Denies: throat pain, enlarged tonsils, hoarseness, mouth pain, oral sores, dry mouth, tinnitus, nasal congestion or post nasal drip Card: Denies: chest pain, palpitations, irregular heart rhythm, edema, swelling of feet/ankles, lightheadedness, syncope, pre-syncope, dyspnea on exertion, orthopnea, leg pain with exertion or acrocyanosis Resp: Denies: dyspnea, productive cough, non-productive cough, wheezing, stridor, pain on inspiration, change in phlegm color, hemoptysis or chest congestion GI: Denies: abdominal pain, nausea, vomiting, hematemesis, coffee ground emesis, dysphagia, heartburn, diarrhea, constipation, bloating, GI cramping, change in bowel habits, pain on defecation, hematochezia or melena : Denies: flank pain, dysuria, urinary frequency, urinary urgency, urinary hesitancy, nocturia or hematuria Musc: Denies: neck pain, back pain, extremity pain, joint pain, joint swelling, joint redness, joint stiffness or limited range of motion Neuro: Denies: headache(s), numbness in extremities, weakness in extremities, sensory changes, lack of coordination, difficulty walking, frequent falls, dizziness, vertigo, confusion, Slurred speech present, difficulty communicating thoughts or seizure-like activity Psych: Denies: anxiety, depression, mood swings, panic attacks, hopelessness or irritability Endo: Denies: polyuria, polydipsia, tired all the time, cold intolerance, excessive sweating, flushing or heat intolerance Charli/Lymph: Denies: easy bruising or easy bleeding All/Imm: Denies: tongue swelling, facial swelling or acute wheezing Medications/Allergies Home Medications Medication Instructions Recorded Confirmed Last Taken Type diabetic supplies, miscellan. #1 ea 01/21/21 08/14/22 Unknown Rx blood-glucose meter,continuous #1 ea 03/04/21 08/14/22 Unknown Rx polyethylene glycol 3350 17 17 g PO DAILY PRN Constipation 05/05/21 08/14/22 01/11/22 History gram/dose oral powder (Miralax) cpap mask and supplies #1 ea 09/14/21 08/14/22 Unknown Rx apixaban 5 mg tablet (Eliquis) 5 mg PO BID 06/02/22 08/14/22 08/13/22 History lactulose 10 gram/15 mL oral 30 ml PO BID PRN Constipation 06/02/22 08/14/22 Unknown History solution blood sugar diagnostic (Pharmacist #50 ea 06/09/22 08/14/22 Unknown Rx Choice Glucose Test Strips) diltiazem HCl 300 mg 300 mg PO QAM #30 caps 06/09/22 08/14/22 08/13/22 Rx capsule,extended release 24 hr levothyroxine 175 mcg tablet 175 mcg PO QAM 90 days #90 tabs 06/09/22 08/14/22 08/13/22 Rx yoxxycqx-rblhzsgye-yenvntgg 3.5 1 drp ophthalmic (eye) Q12H #5 mL 06/09/22 08/14/22 07/09/22 Rx mg/mL-10,000 unit/mL-0.1% eye drops (Maxitrol) potassium chloride 20 mEq 20 meq PO BID PRN low potassium 06/09/22 08/14/22 3 Weeks Ago Rx tablet,extended #30 tabs ~06/16/22 release(part/cryst) (Klor-Con M) pramipexole 0.5 mg tablet (Mirapex) 1 mg PO BEDTIME #30 tabs 06/09/22 08/14/22 08/13/22 Rx neomycin-bacitracn Zn-polymyx 3.5 1 applic topical QID 5 days #14 07/01/22 08/14/22 07/09/22 Rx mg-400 unit-5,000 unit/gram top grams oint (Antibiotic(xbljh-ofbwj-ivihl)) liraglutide 0.6 mg/0.1 mL (18 mg/3 1.8 mg SUBCUT QAM 07/07/22 08/14/22 08/13/22 History mL) subcutaneous pen injector (Victoza 3-Nabeel) ciprofloxacin HCl 500 mg tablet 500 mg PO BID #8 tabs 07/11/22 08/14/22 08/13/22 Rx losartan 50 mg tablet 50 mg PO DAILY #30 tabs 07/18/22 08/14/22 08/13/22 Rx oxybutynin chloride 10 mg 10 mg PO DAILY #30 tabs 07/18/22 08/14/22 08/13/22 Rx tablet,extended release 24 hr (Ditropan XL) escitalopram oxalate 10 mg tablet 10 mg PO DAILY #30 tabs 07/22/22 08/14/22 08/13/22 Rx (Lexapro) acarbose 25 mg tablet 25 mg PO TID #90 tabs 07/25/22 08/14/22 08/13/22 Rx insulin glargine 100 unit/mL (3 20 unit (0.2 mL) SUBCUT DAILY 30 07/25/22 08/14/22 Unknown Rx mL) subcutaneous pen (Lantus days #15 mL Solostar U-100 Insulin) ondansetron HCl 8 mg tablet 8 mg PO Q8H PRN Nausea And 07/27/22 08/14/22 Unknown Rx Vomiting #30 tabs spironolactone 25 mg tablet See Rx Instructions .Route 07/28/22 08/14/22 08/13/22 Rx .COMPLEX #120 tabs dexlansoprazole 60 mg 60 mg PO DAILY #30 caps 07/29/22 08/14/22 08/13/22 Rx capsule,biphase delayed release (Dexilant) Novolog FlexPen U-100 Insulin 100 15 unit (0.15 mL) SUBCUT TID 90 08/10/22 08/14/22 Unknown Rx unit/mL (3 mL) subcutaneous days #40.5 mL (insulin aspart U-100) bumetanide 1 mg tablet 2 mg PO BID 08/14/22 08/14/22 08/13/22 History dexamethasone 1 mg tablet 1 mg PO DAILY 08/14/22 08/14/22 08/13/22 History Allergies Allergy/AdvReac Type Severity Reaction Status Date / Time pregabalin Allergy Unknown ADV-Weaknes Verified 08/14/22 13:17 s acetaminophen [From Tylenol] Allergy ALGY-Hives Verified 08/14/22 13:17 amiodarone Allergy vision Verified 08/14/22 13:17 issue amoxicillin [From Augmentin] Allergy Unknown Verified 08/14/22 13:17 azithromycin Allergy ALGY-Anaphy Verified 08/14/22 13:17 laxis benzocaine Allergy ALGY-Hives Verified 08/14/22 13:17 butamben [From Cetacaine] Allergy ALGY-Swell Verified 08/14/22 13:17 Lip/Tongue/Throat clavulanic acid Allergy Unknown Verified 08/14/22 13:17 [From Augmentin] codeine Allergy ALGY-Hives Verified 08/14/22 13:17 empagliflozin Allergy ADR-Itching Verified 08/14/22 13:17 [From Jardiance] fentanyl Allergy ALGY-Anaphy Verified 08/14/22 13:17 laxis hydrocodone [From Vicodin] Allergy ALGY-Hives Verified 08/14/22 13:17 hydromorphone [From Dilaudid] Allergy ADR-Vomitin Verified 08/14/22 13:17 g Iodinated Contrast Media Allergy ALGY-Anaphy Verified 08/14/22 13:17 laxis liothyronine Allergy ADR-Nausea Verified 08/14/22 13:17 meperidine [From Demerol] Allergy Unknown Verified 08/14/22 13:17 metoclopramide [From Reglan] Allergy ADR-Anxiety Verified 08/14/22 13:17 morphine Allergy ALGY-Anaphy Verified 08/14/22 13:17 laxis nitrofurantoin Allergy ALGY-Joint Verified 08/14/22 13:17 [From Macrobid] Pain oxycodone [From Percocet] Allergy ALGY-Hives Verified 08/14/22 13:17 penicillin V Allergy ALGY-Hives Verified 08/14/22 13:17 Penicillins Allergy Unknown Verified 08/14/22 13:17 Phenothiazines Allergy ALGY-Anaphy Verified 08/14/22 13:17 laxis procaine Allergy ALGY-Hives Verified 08/14/22 13:17 prochlorperazine Allergy ALGY-Anaphy Verified 08/14/22 13:17 [From Compazine] laxis semaglutide [From Ozempic] Allergy ADR-Nausea Verified 08/14/22 13:17 Sulfa (Sulfonamide Allergy Unknown Verified 08/14/22 13:17 Antibiotics) tetracaine [From Cetacaine] Allergy ALGY-Swell Verified 08/14/22 13:17 Lip/Tongue/Throat tramadol [From Ultram] Allergy ADR-Nausea Verified 08/14/22 13:17 PFSH Acute PFSH: Medical History (Updated 08/14/22 @ 17:46 by Keo Hernadez MD) Acute hypercapnic respiratory failure Acute kidney injury superimposed on chronic kidney disease Adrenal insufficiency Anasarca Anemia Asymptomatic bacteriuria Atrial fibrillation Benign essential hypertension with target blood pressure below 140/90 Cardiac resynchronization therapy defibrillator (AM[employer]IA REFRIGERATION TECHNICIAN-D) in place Central hypothyroidism CHF (congestive heart failure) Chronic back pain Follows at pain clinic for periodic injections Chronic hyponatremia Chronic kidney disease, stage 3a Colitis COVID-19 (~09/2020) Diastolic heart failure Edema ESBL (extended spectrum beta-lactamase) producing bacteria infection Facet arthritis, degenerative, lumbar spine Fatigue Gastroenteritis History of adrenal insufficiency History of anaphylaxis History of atrial fibrillation Intermittent, has not required long-term anticoagulation or focused treatment History of COVID-19 HTN (hypertension) Hx of atrial fibrillation, no current medication Hyperaldosteronism Hypokalemia Hypomagnesemia Hypophosphatemia 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 Increased nausea and vomiting VINNY-2 gene mutation Lumbar spondylolysis Metabolic acidosis Nausea vomiting and diarrhea OAB (overactive bladder) Obesity Obesity, morbid, BMI 50 or higher Obstructive sleep apnea KP (obstructive sleep apnea) Paroxysmal atrial fibrillation Pituitary macroadenoma with extrasellar extension Polycythemia vera Prediabetes Pulmonary hypertension PVD (peripheral vascular disease) Shock Stasis edema with ulcer and inflammation Steroid dependence Tachycardia Type 2 diabetes mellitus with other diabetic kidney complication Unsteady gait UTI (urinary tract infection) Venous (peripheral) insufficiency Volume overload VT (ventricular tachycardia) Surgical History H/O shoulder surgery History of hysterectomy History of pituitary surgery S/P insertion of spinal cord stimulator Family History Father Cancer pancreatic cancer Sister No problems noted. 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 Current gender identity: Female Vitals/I&O/Wt Last Vital Signs Temp 97.8 F 08/14/22 13:08 Pulse 80 08/14/22 16:23 Resp 20 H 08/14/22 13:08 BP 125/82 08/14/22 13:08 Pulse Ox 95 08/14/22 16:23 O2 Del Method Room Air 08/14/22 16:23 O2 Flow Rate 2 08/14/22 13:08 Weight last 48 hrs Weight 152 kg Physical Exam Narrative: General: No acute distress, AO x3, morbidly obese, cushingoid, chronically sick appearing HEENT: PERRLA, pupils bilaterally equal and reactive Chest: Normal vesicular breath sounds, no added sounds, equal good air entry bilaterally, pacemaker pocket seen in the left hemithorax, no fluctuance, mild localized hematoma seen CVS: S1-S2 regular, no murmurs, no tachycardia, no gallops, no rubs Abdomen: Soft, generalized tenderness more so in epigastric area, obese, no organomegaly, bowel sounds present but sluggish Neuro: No focal deficits, no facial deformity, AO x3, power 5/5 in all limbs Urinary Catheter Management: [place]: Cath Placed During This Visit: yes Urinary Catheter Date of Insertion: 08/14/22 Urinary Catheter Time of Insertion: 14:10 Data 08/14/22 13:10 08/14/22 13:10 Micro: Microbiology 08/14/22 14:50 Blood Culture - Preliminary Blood SPECIMEN COLLECTED 08/14/22 14:57 Blood Culture - Preliminary Blood SPECIMEN COLLECTED A&P Assessment and plan (1) Shock: Most likely in setting of adrenal crisis in setting of chronic steroid dependence. Patient has not taken her dose of dexamethasone for last 1 day. Appreciate cortisol levels. Dexamethasone 10 mg every 6 hourly. Cannot rule out cardiogenic shock given A-fib with RVR on presentation. Keep mean artery pressure 65. 1 L normal saline bolus. Start on normal saline at 100 cc/h. Strict input output charting, daily weights. [place] catheterization. (2) Adrenal crisis syndrome: (3) Paroxysmal atrial fibrillation with RVR: Was on Cardizem drip. Back to sinus rhythm. Stop Cardizem drip. Takes 300 mg of Cardizem at home. Switch to oral Cardizem 60 mg every 6 hourly to be given only if systolic blood pressure more than 110 mmHg. If not able to give Cardizem because of low blood pressures can start on amiodarone drip. Patient has allergy of amiodarone drip with blurry of vision. Confirm with the patient she is okay with starting amiodarone if not able to do Cardizem. Unfortunately cannot do digoxin given RODRIGUE on CKD currently. (4) Abdominal pain: Unknown etiology. Could be secondary to gastritis Gallbladder pathology unlikely given normal alkaline phosphatase and bilirubin. Protonix IV twice daily, Carafate JAKE, Maalox as needed. Clear liquid diet. CT abdomen pelvis for further evaluation. History of ESBL UTI in the past. Patient recently had AMMONIA REFRIGERATION TECHNICIAN-D placed in the last 1 week. Blood cultures taken in the ER. For now empirically start patient on meropenem. MRSA negative on 01/15. Hold off on vancomycin. Cannot rule out ACS. Troponin trending up to 82 with a delta of 10.77. (5) Nausea & vomiting: (6) Acute kidney injury superimposed on chronic kidney disease: Baseline creatinine seems to be around 1.2. Currently 2.4. With iron gap metabolic acidosis. [place]ita catheterization. Medical reconciliation done for nephrotoxic drugs. Urine lites, urine creatinine. Monitor BMP daily for now. (7) Chronic steroid use: (8) Obesity: (9) Hypothyroid: (10) Diabetes: Stop oral hypoglycemics Suicide insulin moderate dose protocol before meals and at bedtime. (11) Chronic kidney disease, stage 3a: (12) Hyperaldosteronism: (13) Elevated troponin: Monitor troponins. Serial EKGs. Repeat echocardiogram. Switch from Eliquis to full dose Lovenox. Appreciate recent A1c and lipid panel. Aspirin 81 mg daily after 324 mg one-time. (14) Lactic acidosis: (15) Asymptomatic bacteriuria: Follows up with ID as an outpatient. Currently UA shows negative nitrite with trace leuk esterase. Patient denies any dysuria. No UTI. (16) Cardiac resynchronization therapy defibrillator (AMMONIA REFRIGERATION TECHNICIAN-D) in place: Placed on 08/08 at outside hospital. Will request documents from outpatient employee relations administrator Dr. Moody from [place]. Empiric antibiotics for now as above. Continue to monitor. Plan CODE STATUS: Discussed in detail with the patient. She would like to be full code. will be the DPOA. Protonix OPD prophylaxis Full dose Lovenox will suffice as DVT prophylaxis. Admit to ICU. Attestations Medical Necessity Statement*: Admission for more than 2 midnights for management of shock in setting of adrenal crisis, A-fib with RVR, abdominal pain with nausea and vomiting Coding Level of Care Code Critical Care >/= 30 minutes Critical care time (in minutes): 80 The high probability of a clinically significant, sudden or life threatening deterioration, as referenced in this documentation, required my full and direct attention, intervention and personal management. The critical care time shown is in addition to time spent performing any reported separately billable procedures and includes the following: [x] Data and vital sign review and interpretation [x] Patient assessment, examination and intervention [x] Medication orders and management [x] Patient/Family updates as able [x] Care Coordination and Documentation. Diagnoses Shock R57.9 Adrenal crisis syndrome E27.2 Paroxysmal atrial fibrillation with RVR I48.0 Abdominal pain R10.9 Nausea & vomiting R11.2 Acute kidney injury superimposed on chronic kidney disease N17.9; N18.9 Chronic steroid use Obesity E66.9 Hypothyroid E03.9 Diabetes E11.9 Chronic kidney disease, stage 3a N18.31 Hyperaldosteronism E26.9 Elevated troponin R77.8 Lactic acidosis E87.20 Asymptomatic bacteriuria R82.71 Cardiac resynchronization therapy defibrillator (AMMONIA REFRIGERATION TECHNICIAN-D) in place Z95.810
[2022-08-14] MEDS: sodium chloride 0.9% 1,000 ML 100 ML IV (17:33)
[2022-08-14] MEDS: sucralfate 1 gm/10 mL Oral Liq UDC PO (17:33)
[2022-08-14] MEDS: meropenem 1,000 MG in sodium chloride 0.9% (plus) 50 ML 100 MG IV (17:34)
[2022-08-14 18:08] LABS: Procalcitonin 0.26 ng/mL (0-0.5); Vitamin B12 292 pg/mL (232-1245)
--- NOTE | 2022-08-14 18:26 | PC.NURSE ---
received from er via stretcher at 1620.report received.4 person assist to transfer from stretcher to bed.pt is alert and oriented x 4.sr on monitor.cardizem drip at 5 mg/hr.(dc'd).pt very nauseated.vomited approx 200 cc dark green emesis with undigested food noted.pt states she has not eaten since yesterday afternoon,and has been nauseated ever since.complains of severe lower abd pain rating 10/10.states last bm was earlier today.bp initially was 50/dop.dr house notified of pt's condition.he came to assess pt and ordered 500 cc ns bolus and myriad of gi medications and steroids...and ordered transfer to icu after ct of abd,pelvis and chest completed.report phoned to icu.pt's bp has improved with fluids .pt taken to ct via bed at 1830 and on to icu 7.
--- NOTE | 2022-08-14 18:40 | PC.NURSE ---
Cardizem off: Cardizem off, disconnected from pt on arrival to unit @1840 08/14/22. MAR updated to reflect this change. Dr. Satya pace.
--- NOTE | 2022-08-14 19:06 | ECG_ITS ---
[facility] Test Date: 2022-08-14 Pat Name: Carolyn Alexander Department: Room: Gender: Female [employer] Worker: : 1950 Requested By: Shiraz Baez Order Number: [id number] Laina MD: Bahman Rowland M.D. Measurements Intervals [place] Rate: 133 P: 0 OH: 0 QRS: -38 QRSD: 93 T: 66 QT: 315 QTc: 469 Interpretive Statements ATRIAL FIBRILLATION WITH RAPID VENTRICULAR RESPONSE WITH ABERRANT CONDUCTION OR VENTRICULAR PREMATURE COMPLEXES LEFT AXIS DEVIATION [QRS AXIS < -30] LOW QRS VOLTAGE [QRS DEFLECTION < 0.5/1.0 mV IN LIMB/CHEST LEADS] POSSIBLE ANTERIOR MYOCARDIAL INFARCTION , PROBABLY OLD [30 ms Q WAVE IN V3/V4, OR R < 0.2 mV IN V4] Compared to ECG 08/14/2022 16:20:34 Ventricular premature complex(es) now present Aberrant conduction of supraventricular beat(s) now present Left-axis deviation now present Low QRS voltage now present Myocardial infarct finding now present Ventricular-paced complex(es) or rhythm no longer present Electronically Signed On 08-14-2022 20:03:04 CDT by Bahman Rowland M.D. [email or web address]
[2022-08-14] MEDS: heparin drip 25,000 UNIT/500 ML PREMIX 36 UNIT IV (20:01)
[2022-08-14] MEDS: morphine 4 mg/mL SDV 1 mL 2 MG IVP (20:24)
--- NOTE | 2022-08-14 20:24 | PM.CONSULT ---
Providers/Reason For Consult Consulting Physician/Specialty*: Dr. 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 She reports that she has had abdominal pain chronically for the last at least couple of months. For the last 24 hours though has been severe. Pain starts at the umbilicus and radiates down to the pubic bone. Pain is severe and constant. She reports nausea and vomiting but denies hematemesis. Her last bowel movement was earlier today. She denies any hematochezia or melena. She is in septic shock and CT of the abdomen pelvis reveals pneumatosis of the cecum and ascending colon with portal venous gas. She has an acute abdomen. Review of Systems General: Reports: 10 or more systems reviewed and unremarkable except in HPI and below Medications/Allergies Home Medications Medication Instructions Recorded Confirmed Last Taken Type diabetic supplies, miscellan. #1 ea 01/21/21 08/14/22 Unknown Rx blood-glucose meter,continuous #1 ea 03/04/21 08/14/22 Unknown Rx polyethylene glycol 3350 17 17 g PO DAILY PRN Constipation 05/05/21 08/14/22 01/11/22 History gram/dose oral powder (Miralax) cpap mask and supplies #1 ea 09/14/21 08/14/22 Unknown Rx apixaban 5 mg tablet (Eliquis) 5 mg PO BID 06/02/22 08/14/22 08/13/22 History lactulose 10 gram/15 mL oral 30 ml PO BID PRN Constipation 06/02/22 08/14/22 Unknown History solution blood sugar diagnostic (Pharmacist #50 ea 06/09/22 08/14/22 Unknown Rx Choice Glucose Test Strips) diltiazem HCl 300 mg 300 mg PO QAM #30 caps 06/09/22 08/14/22 08/13/22 Rx capsule,extended release 24 hr levothyroxine 175 mcg tablet 175 mcg PO QAM 90 days #90 tabs 06/09/22 08/14/22 08/13/22 Rx smkeubiw-nroklebst-dojhzsoa 3.5 1 drp ophthalmic (eye) Q12H #5 mL 06/09/22 08/14/22 07/09/22 Rx mg/mL-10,000 unit/mL-0.1% eye drops (Maxitrol) potassium chloride 20 mEq 20 meq PO BID PRN low potassium 06/09/22 08/14/22 3 Weeks Ago Rx tablet,extended #30 tabs ~06/16/22 release(part/cryst) (Klor-Con M) pramipexole 0.5 mg tablet (Mirapex) 1 mg PO BEDTIME #30 tabs 06/09/22 08/14/22 08/13/22 Rx neomycin-bacitracn Zn-polymyx 3.5 1 applic topical QID 5 days #14 07/01/22 08/14/22 07/09/22 Rx mg-400 unit-5,000 unit/gram top grams oint (Antibiotic(lwdhz-wfanj-yypfl)) liraglutide 0.6 mg/0.1 mL (18 mg/3 1.8 mg SUBCUT QAM 07/07/22 08/14/22 08/13/22 History mL) subcutaneous pen injector (Victoza 3-Nabeel) ciprofloxacin HCl 500 mg tablet 500 mg PO BID #8 tabs 07/11/22 08/14/22 08/13/22 Rx losartan 50 mg tablet 50 mg PO DAILY #30 tabs 07/18/22 08/14/22 08/13/22 Rx oxybutynin chloride 10 mg 10 mg PO DAILY #30 tabs 07/18/22 08/14/22 08/13/22 Rx tablet,extended release 24 hr (Ditropan XL) escitalopram oxalate 10 mg tablet 10 mg PO DAILY #30 tabs 07/22/22 08/14/22 08/13/22 Rx (Lexapro) acarbose 25 mg tablet 25 mg PO TID #90 tabs 07/25/22 08/14/22 08/13/22 Rx insulin glargine 100 unit/mL (3 20 unit (0.2 mL) SUBCUT DAILY 30 07/25/22 08/14/22 Unknown Rx mL) subcutaneous pen (Lantus days #15 mL Solostar U-100 Insulin) ondansetron HCl 8 mg tablet 8 mg PO Q8H PRN Nausea And 07/27/22 08/14/22 Unknown Rx Vomiting #30 tabs spironolactone 25 mg tablet See Rx Instructions .Route 07/28/22 08/14/22 08/13/22 Rx .COMPLEX #120 tabs dexlansoprazole 60 mg 60 mg PO DAILY #30 caps 07/29/22 08/14/22 08/13/22 Rx capsule,biphase delayed release (Dexilant) Novolog FlexPen U-100 Insulin 100 15 unit (0.15 mL) SUBCUT TID 90 08/10/22 08/14/22 Unknown Rx unit/mL (3 mL) subcutaneous days #40.5 mL (insulin aspart U-100) bumetanide 1 mg tablet 2 mg PO BID 08/14/22 08/14/22 08/13/22 History dexamethasone 1 mg tablet 1 mg PO DAILY 08/14/22 08/14/22 08/13/22 History Allergies Allergy/AdvReac Type Severity Reaction Status Date / Time pregabalin Allergy Unknown ADV-Weaknes Verified 08/14/22 13:17 s acetaminophen [From Tylenol] Allergy ALGY-Hives Verified 08/14/22 13:17 amiodarone Allergy vision Verified 08/14/22 13:17 issue amoxicillin [From Augmentin] Allergy Unknown Verified 08/14/22 13:17 azithromycin Allergy ALGY-Anaphy Verified 08/14/22 13:17 laxis benzocaine Allergy ALGY-Hives Verified 08/14/22 13:17 butamben [From Cetacaine] Allergy ALGY-Swell Verified 08/14/22 13:17 Lip/Tongue/Throat clavulanic acid Allergy Unknown Verified 08/14/22 13:17 [From Augmentin] codeine Allergy ALGY-Hives Verified 08/14/22 13:17 empagliflozin Allergy ADR-Itching Verified 08/14/22 13:17 [From Jardiance] fentanyl Allergy ALGY-Anaphy Verified 08/14/22 13:17 laxis hydrocodone [From Vicodin] Allergy ALGY-Hives Verified 08/14/22 13:17 hydromorphone [From Dilaudid] Allergy ADR-Vomitin Verified 08/14/22 13:17 g Iodinated Contrast Media Allergy ALGY-Anaphy Verified 08/14/22 13:17 laxis liothyronine Allergy ADR-Nausea Verified 08/14/22 13:17 meperidine [From Demerol] Allergy Unknown Verified 08/14/22 13:17 metoclopramide [From Reglan] Allergy ADR-Anxiety Verified 08/14/22 13:17 morphine Allergy ALGY-Anaphy Verified 08/14/22 13:17 laxis nitrofurantoin Allergy ALGY-Joint Verified 08/14/22 13:17 [From Macrobid] Pain oxycodone [From Percocet] Allergy ALGY-Hives Verified 08/14/22 13:17 penicillin V Allergy ALGY-Hives Verified 08/14/22 13:17 Penicillins Allergy Unknown Verified 08/14/22 13:17 Phenothiazines Allergy ALGY-Anaphy Verified 08/14/22 13:17 laxis procaine Allergy ALGY-Hives Verified 08/14/22 13:17 prochlorperazine Allergy ALGY-Anaphy Verified 08/14/22 13:17 [From Compazine] laxis semaglutide [From Ozempic] Allergy ADR-Nausea Verified 08/14/22 13:17 Sulfa (Sulfonamide Allergy Unknown Verified 08/14/22 13:17 Antibiotics) tetracaine [From Cetacaine] Allergy ALGY-Swell Verified 08/14/22 13:17 Lip/Tongue/Throat tramadol [From Ultram] Allergy ADR-Nausea Verified 08/14/22 13:17 Current Medications Generic Name Dose Route Start Last Admin Trade Name Freq PRN Reason Stop Dose Admin Al Hydrox/Mg Hydrox/Simethicone 30 ml 08/14/22 17:00 08/14/22 17:16 Ofvc-Bze-Kdokoxayy-Michel 30 Ml Udc PO 30 ml Q4H PRN Administration INDIGESTION Dexamethasone 10 mg 08/14/22 17:00 08/14/22 17:17 Dexamethasone 10 Mg/Ml Inj IVP 10 mg Q6H RAMIRO Administration Sodium Chloride 1,000 mls @ 100 mls/hr 08/14/22 15:58 08/14/22 17:33 Sodium Chloride 0.9% IV 100 mls/hr .Q10H RAMIRO Administration Meropenem 1,000 mg/ Sodium 50 mls @ 100 mls/hr 08/14/22 18:00 08/14/22 19:00 Chloride IV Infused Q12H RAMIRO Infusion Protocol Amiodarone HCl 900 mg/ 518 mls @ 0 mls/hr 08/14/22 17:30 08/14/22 20:13 Dextrose/ IV Miscellaneous IV 1 mg/min Supplies .Q0M RAMIRO 34.53 mls/hr Administration Protocol Per Protocol Heparin Sodium/Sodium Chloride 25,000 unit in 500 mls @ 0 mls/hr 08/14/22 19:45 08/14/22 20:01 Heparin Drip IV 11.84 unit/kg/hr .Q0M RAMIRO 36 mls/hr Administration Protocol Per Protocol Ipratropium [place] 0.5 mg 08/14/22 17:15 08/14/22 18:18 Ipratropium 0.5 Mg/2.5 Ml Neb INHALATION Not Given Q6H RAMIRO Pantoprazole Sodium 40 mg 08/14/22 17:00 08/14/22 17:17 Pantoprazole 40 Mg Sdv IVP 40 mg Q12H RAMIRO Administration Promethazine HCl 12.5 mg 08/14/22 16:58 08/14/22 17:16 Promethazine 25 Mg/Ml Sdv 1 Ml IM 12.5 mg Q6H PRN Administration NAUSEA Sucralfate 1 gm 08/14/22 17:00 08/14/22 17:33 Sucralfate 1 Gm/10 Ml Oral Liq Udc PO 1 gm AC&BEDTIME RAMIRO Administration PFSH Acute PFSH: Medical History Acute hypercapnic respiratory failure Acute kidney injury superimposed on chronic kidney disease Adrenal insufficiency Anasarca Anemia Asymptomatic bacteriuria Atrial fibrillation Benign essential hypertension with target blood pressure below 140/90 Cardiac resynchronization therapy defibrillator (MACHINE ADJUSTER LEADER-D) in place Central hypothyroidism CHF (congestive heart failure) Chronic back pain Follows at pain clinic for periodic injections Chronic hyponatremia Chronic kidney disease, stage 3a Colitis COVID-19 (~09/2020) Diastolic heart failure Edema ESBL (extended spectrum beta-lactamase) producing bacteria infection Facet arthritis, degenerative, lumbar spine Fatigue Gastroenteritis History of adrenal insufficiency History of anaphylaxis History of atrial fibrillation Intermittent, has not required long-term anticoagulation or focused treatment History of COVID-19 HTN (hypertension) Hx of atrial fibrillation, no current medication Hyperaldosteronism Hypokalemia Hypomagnesemia Hypophosphatemia 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 Increased nausea and vomiting VINNY-2 gene mutation Lumbar spondylolysis Metabolic acidosis Nausea vomiting and diarrhea OAB (overactive bladder) Obesity Obesity, morbid, BMI 50 or higher Obstructive sleep apnea KP (obstructive sleep apnea) Paroxysmal atrial fibrillation Pituitary macroadenoma with extrasellar extension Polycythemia vera Prediabetes Pulmonary hypertension PVD (peripheral vascular disease) Shock Stasis edema with ulcer and inflammation Steroid dependence Tachycardia Type 2 diabetes mellitus with other diabetic kidney complication Unsteady gait UTI (urinary tract infection) Venous (peripheral) insufficiency Volume overload VT (ventricular tachycardia) Surgical History H/O shoulder surgery History of hysterectomy History of pituitary surgery S/P insertion of spinal cord stimulator Family History Father Cancer pancreatic cancer Sister No problems noted. 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 Current gender identity: Female Vitals/I&O/Wt Last Vital Signs Temp 97.8 F 08/14/22 13:08 Pulse 147 H 08/14/22 19:52 Resp 28 H 08/14/22 19:52 BP 96/63 08/14/22 18:50 Pulse Ox 96 08/14/22 19:52 O2 Del Method Nasal Cannula 08/14/22 19:52 O2 Flow Rate 2 08/14/22 19:52 FiO2 28 08/14/22 18:09 08/14/22 08/14/22 08/14/22 06:59 14:59 22:59 Intake Total 568.333 / 568.333 Output Total 200 / 200 Balance 368.333 / 368.333 Weight last 48 hrs Weight 335 lb 1.642 oz Physical Exam Narrative: General : Patient is well developed , morbidly obese, no acute distress, oriented x3 Head : Normal cephalic, a-traumatic. Ears : Pinnae and external canal are normal. Hearing is normal. Eyes : PERRLA, Sclera and injection are normal. No conjunctival discharge. Nose : Mucous membranes are without erythema. Throat : buccal mucosa is normal, gums are without significant recession or hypertrophy. Lungs : Equal chest rise bilaterally, some use of accessory muscles with pursed lips breathing, trachea is midline. Cor : A-fib with tachycardia. Abdomen : Acute abdomen with distention, diffuse tenderness guarding and rebound Extremities : No edema, no cyanosis or clubbing, dorsalis pedis pulses are present bilaterally, non-tender to palpation of calves. Upper extremities are normal bilaterally. Back : non-tender to palpation, no CVA tenderness. Neuro : Nonfocal Urinary Catheter Management: [place]: Cath Placed During This Visit: yes Reason for Continuing Indwelling Catheter: Accurate Measurement of Urinary Output in Critically Ill Patients Urinary Catheter Date of Insertion: 08/14/22 Urinary Catheter Time of Insertion: 14:10 Data 08/14/22 13:10 08/14/22 13:10 Micro: Microbiology 08/14/22 14:50 Blood Culture - Preliminary Blood SPECIMEN COLLECTED 08/14/22 14:57 Blood Culture - Preliminary Blood SPECIMEN COLLECTED A&P Assessment and plan (1) Septic shock: (2) Acute abdomen: (3) Pneumatosis coli: (4) Lactic acidosis: (5) Elevated troponin: (6) Chronic steroid use: Plan Exploratory laparotomy with possible bowel resection and procedures as indicated The risks and benefits of the procedure, including but not limited to, bleeding, infection, scar, numbness, pain, damage to surrounding structures, anastomotic leak, , inability to close the abdomen, need for further surgery, were explained to the patient and her . Patient is in septic shock and has an extremely poor prognosis. The patient and his are understanding and wish to proceed to surgery. Option of nonsurgical management was given. She will likely require prolonged intubation. Coding Level of Care Code Acute Code for [facility] Fwd Diagnoses Septic shock A41.9; R65.21 Acute abdomen R10.0 Pneumatosis coli K63.89 Lactic acidosis E87.20 Elevated troponin R77.8 Chronic steroid use
[2022-08-14 20:26] LABS: Lipase 22 U/L (13-60)
--- NOTE | 2022-08-14 20:47 | XRR_ITS ---
PROCEDURE INFORMATION: Exam: XR Chest Exam date and time: 08/14/2022 8:53 PM Age: 72 years old Clinical indication: Device placement; Picc; Additional info: Picc line placement TECHNIQUE: Imaging protocol: Radiologic exam of the chest. Views: 1 view. COMPARISON: [place] [id number] 08/14/2022 6:31 PM FINDINGS: Tubes, catheters and devices: There is a dual-lead cardiac pacer via left subclavian approach. Findings are stable. Interval placement of a right upper extremity PICC with the tip at the right atrium. The paddle from a spinal stimulator is stable in position in the lower thoracic spine. Lungs: Lungs are clear bilaterally. Pleural spaces: No pleural effusion. No pneumothorax. Heart/Mediastinum: The cardiac silhouette and mediastinal contours are unremarkable. Vasculature: Stable vascular calcifications in the aorta. Bones/joints: Degenerative changes in the spine and shoulders. XR/XR chest 1V portable [id number] IMPRESSION: 1. No acute cardiopulmonary process. 2. Interval placement of a right upper extremity PICC with the tip at the right atrium. 3. Incidental/nonacute findings are listed in the report.
--- NOTE | 2022-08-14 20:53 | PC.NURSE ---
Consulted by house charge for picc placement. Consent obtained by myself, patient, and . All risk an benefits discussed. Risk included dvt and infection. RUE scanned with US an basilic vein was the best option. Vein was straight, 4 mm, an free of visible clot. Pt draped in usual sterile fashion. Using real time US lidocaine injected, vein accessed, an picc floated into position. Chest xray obtained an waiting on tip confirmation. EBl less then 5 ml. No bleeding no hematoma. Pt arm circumference is 42 cm at 10 cm above the ac fossa.
--- NOTE | 2022-08-14 21:09 | P.ANESASSM_ITS ---
Pre-Anesthetic Assessment Height/Weight: Height 1.65 m Weight 152 kg Temp Pulse Resp BP Pulse Ox O2 Del Method O2 Flow Rate 97.8 F 147 H 22 H 96/63 98 Nasal Cannula 2 08/14/22 13:08 08/14/22 19:52 08/14/22 20:24 08/14/22 18:50 08/14/22 20:24 08/14/22 19:52 08/14/22 19:52 FiO2 28 08/14/22 18:09 Ex-lap Familial anesthetic complications: None Last intake: > 8 hrs, but nausea Social No alcohol and No tobacco Exam alert, oriented x 3 and clear to auscultation bilaterally A fib w/ RVR NC Airway Mallampati: Class IV Dentition: other (No teeth) Pulmonary Nasal canula CV/HEM Atrial Fibrillation (w/ RVR) and Hypertension septic shock [employer] defibrillator placed on monday Chronic Renal Insufficiency RODRIGUE GI GI perforation Metabolic Diabetes Mellitus, Morbid Obesity and Thyroid Disease septic shock Adrenal insufficiency - chronic steroids for pituitary adenoma Anesthetic Plan ASA status: 4E Anesthesia: General Risk of > 500 ml blood loss (7ml/kg in children): Yes, adequate IV access and fluids planned Medications/Allergies Home Medications Medication Instructions Recorded Confirmed Last Taken Type diabetic supplies, miscellan. #1 ea 01/21/21 08/14/22 Unknown Rx blood-glucose meter,continuous #1 ea 03/04/21 08/14/22 Unknown Rx polyethylene glycol 3350 17 17 g PO DAILY PRN Constipation 05/05/21 08/14/22 01/11/22 History gram/dose oral powder (Miralax) cpap mask and supplies #1 ea 09/14/21 08/14/22 Unknown Rx apixaban 5 mg tablet (Eliquis) 5 mg PO BID 06/02/22 08/14/22 08/13/22 History lactulose 10 gram/15 mL oral 30 ml PO BID PRN Constipation 06/02/22 08/14/22 Unknown History solution blood sugar diagnostic (Pharmacist #50 ea 06/09/22 08/14/22 Unknown Rx Choice Glucose Test Strips) diltiazem HCl 300 mg 300 mg PO QAM #30 caps 06/09/22 08/14/22 08/13/22 Rx capsule,extended release 24 hr levothyroxine 175 mcg tablet 175 mcg PO QAM 90 days #90 tabs 06/09/22 08/14/22 08/13/22 Rx xntbzcdq-wmfmfqbir-xigdkipe 3.5 1 drp ophthalmic (eye) Q12H #5 mL 06/09/22 08/14/22 07/09/22 Rx mg/mL-10,000 unit/mL-0.1% eye drops (Maxitrol) potassium chloride 20 mEq 20 meq PO BID PRN low potassium 06/09/22 08/14/22 3 Weeks Ago Rx tablet,extended #30 tabs ~06/16/22 release(part/cryst) (Klor-Con M) pramipexole 0.5 mg tablet (Mirapex) 1 mg PO BEDTIME #30 tabs 06/09/22 08/14/22 08/13/22 Rx neomycin-bacitracn Zn-polymyx 3.5 1 applic topical QID 5 days #14 07/01/22 08/14/22 07/09/22 Rx mg-400 unit-5,000 unit/gram top grams oint (Antibiotic(kenjg-oosio-oequt)) liraglutide 0.6 mg/0.1 mL (18 mg/3 1.8 mg SUBCUT QAM 07/07/22 08/14/22 08/13/22 History mL) subcutaneous pen injector (UiTV 3-Nabeel) ciprofloxacin HCl 500 mg tablet 500 mg PO BID #8 tabs 07/11/22 08/14/22 08/13/22 Rx losartan 50 mg tablet 50 mg PO DAILY #30 tabs 07/18/22 08/14/22 08/13/22 Rx oxybutynin chloride 10 mg 10 mg PO DAILY #30 tabs 07/18/22 08/14/22 08/13/22 Rx tablet,extended release 24 hr (Ditropan XL) escitalopram oxalate 10 mg tablet 10 mg PO DAILY #30 tabs 07/22/22 08/14/22 08/13/22 Rx (Lexapro) acarbose 25 mg tablet 25 mg PO TID #90 tabs 07/25/22 08/14/22 08/13/22 Rx insulin glargine 100 unit/mL (3 20 unit (0.2 mL) SUBCUT DAILY 30 07/25/22 08/14/22 Unknown Rx mL) subcutaneous pen (Lantus days #15 mL Solostar U-100 Insulin) ondansetron HCl 8 mg tablet 8 mg PO Q8H PRN Nausea And 07/27/22 08/14/22 Unknown Rx Vomiting #30 tabs spironolactone 25 mg tablet See Rx Instructions .Route 07/28/22 08/14/22 08/13/22 Rx .COMPLEX #120 tabs dexlansoprazole 60 mg 60 mg PO DAILY #30 caps 07/29/22 08/14/22 08/13/22 Rx capsule,biphase delayed release (Dexilant) Novolog FlexPen U-100 Insulin 100 15 unit (0.15 mL) SUBCUT TID 90 08/10/2208/14 Unknown Rx unit/mL (3 mL) subcutaneous days #40.5 mL (insulin aspart U-100) bumetanide 1 mg tablet 2 mg PO BID 08/14/22 08/14/22 08/13/22 History dexamethasone 1 mg tablet 1 mg PO DAILY 08/14/22 08/14/22 08/13/22 History Allergies Allergy/AdvReac Type Severity Reaction Status Date / Time pregabalin Allergy Unknown ADV-Weaknes Verified 08/14/22 13:17 s acetaminophen [From Tylenol] Allergy ALGY-Hives Verified 08/14/22 13:17 amiodarone Allergy vision Verified 08/14/22 13:17 issue amoxicillin [From Augmentin] Allergy Unknown Verified 08/14/22 13:17 azithromycin Allergy ALGY-Anaphy Verified 08/14/22 13:17 laxis benzocaine Allergy ALGY-Hives Verified 08/14/22 13:17 butamben [From Cetacaine] Allergy ALGY-Swell Verified 08/14/22 13:17 Lip/Tongue/Throat clavulanic acid Allergy Unknown Verified 08/14/22 13:17 [From Augmentin] codeine Allergy ALGY-Hives Verified 08/14/22 13:17 empagliflozin Allergy ADR-Itching Verified 08/14/22 13:17 [From Jardiance] fentanyl Allergy ALGY-Anaphy Verified 08/14/22 13:17 laxis hydrocodone [From Vicodin] Allergy ALGY-Hives Verified 08/14/22 13:17 hydromorphone [From Dilaudid] Allergy ADR-Vomitin Verified 08/14/22 13:17 g Iodinated Contrast Media Allergy ALGY-Anaphy Verified 08/14/22 13:17 laxis liothyronine Allergy ADR-Nausea Verified 08/14/22 13:17 meperidine [From Demerol] Allergy Unknown Verified 08/14/22 13:17 metoclopramide [From Reglan] Allergy ADR-Anxiety Verified 08/14/22 13:17 morphine Allergy ALGY-Anaphy Verified 08/14/22 13:17 laxis nitrofurantoin Allergy ALGY-Joint Verified 08/14/22 13:17 [From Macrobid] Pain oxycodone [From Percocet] Allergy ALGY-Hives Verified 08/14/22 13:17 penicillin V Allergy ALGY-Hives Verified 08/14/22 13:17 Penicillins Allergy Unknown Verified 08/14/22 13:17 Phenothiazines Allergy ALGY-Anaphy Verified 08/14/22 13:17 laxis procaine Allergy ALGY-Hives Verified 08/14/22 13:17 prochlorperazine Allergy ALGY-Anaphy Verified 08/14/22 13:17 [From Compazine] laxis semaglutide [From Ozempic] Allergy ADR-Nausea Verified 08/14/22 13:17 Sulfa (Sulfonamide Allergy Unknown Verified 08/14/22 13:17 Antibiotics) tetracaine [From Cetacaine] Allergy ALGY-Swell Verified 08/14/22 13:17 Lip/Tongue/Throat tramadol [From Ultram] Allergy ADR-Nausea Verified 08/14/22 13:17 Current Medications Generic Name Dose Route Start Last Admin Trade Name Freq PRN Reason Stop Dose Admin Al Hydrox/Mg Hydrox/Simethicone 30 ml 08/14/22 17:00 08/14/22 17:16 Iwjl-Mgm-Yodnjlrzp-Michel 30 Ml Udc PO 30 ml Q4H PRN Administration INDIGESTION Dexamethasone 10 mg 08/14/22 17:00 08/14/22 17:17 Dexamethasone 10 Mg/Ml Inj IVP 10 mg Q6H RAMIRO Administration Sodium Chloride 1,000 mls @ 100 mls/hr 08/14/22 15:58 08/14/22 17:33 Sodium Chloride 0.9% IV 100 mls/hr .Q10H RAMIRO Administration Meropenem 1,000 mg/ Sodium 50 mls @ 100 mls/hr 08/14/22 18:00 08/14/22 19:00 Chloride IV Infused Q12H RAMIRO Infusion Protocol Amiodarone HCl 900 mg/ 518 mls @ 0 mls/hr 08/14/22 17:30 08/14/22 20:13 Dextrose/ IV Miscellaneous IV 1 mg/min Supplies .Q0M RAMIRO 34.53 mls/hr Administration Protocol Per Protocol Heparin Sodium/Sodium Chloride 25,000 unit in 500 mls @ 0 mls/hr 08/14/22 19:45 08/14/22 20:01 Heparin Drip IV 11.84 unit/kg/hr .Q0M RAMIRO 36 mls/hr Administration Protocol Per Protocol Ipratropium [place] 0.5 mg 08/14/22 17:15 08/14/22 18:18 Ipratropium 0.5 Mg/2.5 Ml Neb INHALATION Not Given Q6H RAMIRO Morphine Sulfate 2 mg 08/14/22 17:15 08/14/22 20:24 Morphine 4 Mg/Ml Sdv 1 Ml IVP 2 mg Q4H PRN Administration SEVERE PAIN Pantoprazole Sodium 40 mg 08/14/22 17:00 08/14/22 17:17 Pantoprazole 40 Mg Sdv IVP 40 mg Q12H RAMIRO Administration Promethazine HCl 12.5 mg 08/14/22 16:58 08/14/22 17:16 Promethazine 25 Mg/Ml Sdv 1 Ml IM 12.5 mg Q6H PRN Administration NAUSEA Sucralfate 1 gm 08/14/22 17:00 08/14/22 17:33 Sucralfate 1 Gm/10 Ml Oral Liq Udc PO 1 gm AC&BEDTIME RAMIRO Administration PFSH Anesthesia Medical History Acute hypercapnic respiratory failure Acute kidney injury superimposed on chronic kidney disease Adrenal insufficiency Anasarca Anemia Asymptomatic bacteriuria Atrial fibrillation Benign essential hypertension with target blood pressure below 140/90 Cardiac resynchronization therapy defibrillator ([employer]) in place Central hypothyroidism CHF (congestive heart failure) Chronic back pain Follows at pain clinic for periodic injections Chronic hyponatremia Chronic kidney disease, stage 3a Colitis COVID-19 (~09/2020) Diastolic heart failure Edema ESBL (extended spectrum beta-lactamase) producing bacteria infection Facet arthritis, degenerative, lumbar spine Fatigue Gastroenteritis History of adrenal insufficiency History of anaphylaxis History of atrial fibrillation Intermittent, has not required long-term anticoagulation or focused treatment History of COVID-19 HTN (hypertension) Hx of atrial fibrillation, no current medication Hyperaldosteronism Hypokalemia Hypomagnesemia Hypophosphatemia 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 Increased nausea and vomiting VINNY-2 gene mutation Lumbar spondylolysis Metabolic acidosis Nausea vomiting and diarrhea OAB (overactive bladder) Obesity Obesity, morbid, BMI 50 or higher Obstructive sleep apnea KP (obstructive sleep apnea) Paroxysmal atrial fibrillation Pituitary macroadenoma with extrasellar extension Polycythemia vera Prediabetes Pulmonary hypertension PVD (peripheral vascular disease) Shock Stasis edema with ulcer and inflammation Steroid dependence Tachycardia Type 2 diabetes mellitus with other diabetic kidney complication Unsteady gait UTI (urinary tract infection) Venous (peripheral) insufficiency Volume overload VT (ventricular tachycardia) Surgical History H/O shoulder surgery History of hysterectomy History of pituitary surgery S/P insertion of spinal cord stimulator Family History Father Cancer pancreatic cancer Sister No problems noted. 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 Current gender identity: Female Data Anesthesia 08/14/22 13:10 08/14/22 13:10 Short CBC 08/14/22 Range/Units 13:10 WBC 21.4 H (4.0-10.0) 10^3/uL Hgb 13.1 (11.5-15.3) g/dL Hct 45.1 (37.0-47.0) % MCV 78.7 L (81-99) fl Plt Count 247 (130-400) 10^3/cmm BMP 08/14/22 13:10 Sodium 133 L Potassium 3.9 Chloride 94 L Carbon Dioxide 22 BUN 43 H Creatinine 2.4 H Glucose 109 Calcium 8.4 L Cardiac Enzymes 08/14/22 08/14/22 08/14/22 Range/Units 13:10 13:10 15:34 Troponin T Baseline 72 H (0-10) ng/L Troponin T 120 Minute 82.77 H (0-10) ng/L Delta Troponin T 10.77 H* (0-10) ABS# NT-Pro-B Natriuret Pep 692 H (0-125) pg/mL Liver Function 08/14/22 Range/Units 13:10 Total Bilirubin 0.5 (0.15-1.2) mg/dL AST 20 (0-32) U/L ALT 35 H (0-33) U/L Alkaline Phosphatase 91 (35-105) U/L Albumin 3.5 (3.5-5.2) g/dL Urine 08/14/22 Range/Units 14:00 Urine Color Dark yellow (Yellow) Urine Appearance Clear (CLEAR) Urine pH 5 (5-7) Ur Specific [place] 1.020 (1.005-1.030) Urine Protein Neg (Negative) Urine Glucose (UA) Norm (Normal) Urine Ketones 1+ H (Negative) Urine Nitrate Negative (Negative) Urine Bilirubin 1+ H (Negative) Ur Leukocyte Esterase Trace H (Negative) Urine RBC None (0-2) /hpf Urine WBC 5-10 H (0-5) /hpf Microbiology 08/14/22 14:50 Blood Culture - Preliminary Blood SPECIMEN COLLECTED 08/14/22 14:57 Blood Culture - Preliminary Blood SPECIMEN COLLECTED Cardiac Studies: Echocardiogram 01/04/22 Echocardiogram Limited Views 06/02/22 Transesophageal Echocardiogram 08/04/21 Cardiac Event Monitor 01/05/21
[2022-08-14] MEDS: protamine 10 mg/mL SDV 5 mL 50 MG IVP (21:17)
--- NOTE | 2022-08-14 21:20 | PC.NURSE ---
Arrival to ICU: Pt arrived to ICU @1840. Dr. Hernadez called unit at approximately [address] results. New order for strict NPO, NG tube, Heparin drip w/ no bolus, PICC line placement, and start amio drip. Pt refused NG tube. Purpose of NG explained to pt. Pt verbalized understanding. Dr. Palomo arrived to the unit @2033. Dr. Palomo made aware of pts refusal of NG tube. Dr. Palomo discussed care options w/ patient and family, including risk and benefits of surgery. Consent for surgery on chart. New order to stop Heparin and give reversal. See MAR for medication administration. Dr. Guardado called @2108 for low blood pressure. New order for levophed titratable drip. Dr. Guardado on unit @2127. New order to increase levophed to 10mcg/min. See MAR for titration.
--- NOTE | 2022-08-14 22:13 | PC.NURSE ---
Transport to surgery: OR team arrived to ICU @4170 to transport pt to surgery.
--- NOTE | 2022-08-14 22:22 | PC.PHAR ---
Pharmacokinetic dosing service Date: 08/14/22 Time: 2221 Objective: Patient: Carolyn Alexander Floor: ICU-7 Age: 72 yo Serum creatinine: 2.4 mg/dL Height: 65.0 Inches Weight (kg): 152 Diagnosis: Relevant medical/social history: Cultures and sensitivities: Other labs: Assessment: IBW (kg): 57.00 Dosing wt(kg): 95.0 Estimated Creatinine clearance (ml/min): 19.6 CRCL method: Cockcroft and Gault using ibw(default). Drug selected: Vancomycin Loading dose (mg): 0 Vd (liters): 85.5 (factor used: 0.9 L/kg) Gab (hr-1): 0.021 Half life (hrs): 33.01 Recommended dose: 2000 mg Interval: 48 hrs Infusion time (hrs): 1.5 Predicted peak (mcg/mL): 36.3 Predicted trough (mcg/mL): 13.67 Adjusted body weight was selected for vancomycin dosing. To switch back, select the total body weight option above. Renal function is stable [ ] /unstable [ ] Recommendations: Give Vancomycin 2000 mg q 48 hrs with an expected Cpeak of 36.3 mcg/ml and an expected Ctrough of 13.67 mcg/ml Renal dosing of other antibiotics (review renal dosing of other medications and list guidelines here): Thank you for the consult, will continue to follow. Signature: Shanna Oliver [facility]
[2022-08-14 23:22] LABS: Potassium, Radom Urine 63 mmol/L; Urine Creatinine 193 mg/dL (28-217)
--- NOTE | 2022-08-14 23:25 | SUR.OPER ---
Abthera wound vac placed on patient.
--- NOTE | 2022-08-14 23:34 | P.OP_ITS ---
Operative Report Date of procedure: August 14, 2022 Pre-op diagnosis: Acute abdomen Post-op diagnosis: other (Severe ischemia of right colon with scattered mild ischemia throughout remaining bowel) Procedure done: Diagnostic laparoscopy with conversion to exploratory laparotomy and right hemicolectomy Implants: ABThera and wound VAC Specimens removed/disposition: Right colon Surgeon: Dr. Abdoul Palomo, DO Anesthesia: General Estimated blood loss (mL): 75 IV fluids: 700 cc crystalloid in, 600 cc urine Complications: None apparent Brief History: Very pleasant 72-year-old female who presented to the hospital with abdominal pain. She was in septic shock and found to have pneumatosis of the right colon with portal venous gas. She had an acute abdomen. Exploratory laparotomy with possible bowel resection and procedures as indicated was necessary. The risk a nd benefits were explained and understood. Procedure: Patient was taken to the operating room and placed on the OR table in supine position. General endotracheal intubation was achieved by the department of anesthesia. The abdomen was inspected prepped and draped in usual sterile fashion. A timeout was performed. All present were in agreement. A 5 mm incision was made in the left upper quadrant and a Veress needle was inserted into the abdomen. Immediately small of bowel was present. I could not get adequate insufflation and made a second 5 mm incision just medial and superior to the first. I still was not satisfied with insufflation and moved to an Optiview approach. I did this with a 5 mm trocar and once in the abdomen there was minimal space at maximum insufflation. I converted to exploratory laparotomy. A 10 blade scalpel was then used to make a midline laparotomy incision from above the umbilicus to the xiphoid process. Dissection was carried down with electrocautery. Fascia was identified and elevated with 2 Prabhakar's. The fascia was entered sharply. I then extended the fascial incision caudad and cephalad. The peritoneum was bulging out of the incision. The peritoneum was opened bluntly and carried cephalad and caudad. Immediately right colon and transverse colon were identified. Small bowel was pink at this time. A window was made in the mesentery of the transverse colon and a 100 mm KIM blue load was used to transect the transverse colon. Enseal was then used to take down the omentum and mesocolon of the right colon. The right white line of Toldt was taken down bluntly and sharply. Enseal was used to aid in these maneuvers. The mesentery was transected with the Enseal taking care to double burned the right colic artery. A minimal amount of terminal ileum was identified. A window was made in the mesentery and again a 100 mm KIM blue load was used to transect the terminal ileum. The specimen was passed off. There was minimal blood loss that we identified at 75 mL. Hemostasis was noted. The rest the abdomen was explored. Remaining colon was questionably viable and ther e were multiple areas of small bowel that similarly were questionably viable but not definitely without viability. An ABThera was then placed into the abdomen. There was no contamination. The two 5 mm incisions in the left upper quadrant were closed with skin staplers. Wound VAC was placed and seal was noted. Patient was then moved to the ICU on a minimal Jose drip and 16 mics of Levophed. She had 700 cc of crystalloid and and 600 cc of urine out. There is plan to bring her back to the operating room in 24 to 48 hours to explore for any further bowel and potentially anastomosis her intestines and close her abdomen.
[2022-08-14 23:59] LABS: Urine Random Chloride 23 mmol/L; Urine Random Sodium 42 mmol/L
[2022-08-15] VITALS (88 sets, daily range): BP systolic 57–146; BP diastolic 44–126; PULSE 55–129; RESP 14–33; TEMP 36.3–36.4; O2SAT 93–98
--- NOTE | 2022-08-15 | PC.NURSE ---
Back from Surgery: Pt arrived from surgery @3860 08/14/22. Wound Vac in place @125mmHg continuos suction. ART line in place. NG placed to low intermittent suction per verbal order from Dr. Palomo. Intubated, FiO2 100%. Propofol drip started @10, see MAR for titration. Bilateral wrist restraints applied. Levophed max @rate of 20, Jose @40, see MAR for titration. Chest X-ray obtained for NG and ET placement.
--- NOTE | 2022-08-15 00:10 | XRR_ITS ---
PROCEDURE INFORMATION: Exam: XR Chest Exam date and time: 08/15/2022 12:37 AM Age: 72 years old Clinical indication: Device placement; Ng tube; Prior surgery; Surgery date: 3-7 days post-operative; Surgery type: Pacemaker 3 days ago, bowel surgery yesterday; Additional info: Ng and et placement TECHNIQUE: Imaging protocol: Radiologic exam of the chest. Views: 1 view. COMPARISON: CR (CHEST, ) 08/14/2022 8:53 PM FINDINGS: Tubes, catheters and devices: Endotracheal tube tip 18 mm above the surinder. Enteric tube tip below the diaphragm over the gastric bubble. Right central venous catheter tip the atrial caval junction. Pacemaker. Lungs: Bibasilar atelectasis versus infiltrate. Pleural spaces: Unremarkable. No pleural effusion. No pneumothorax. Heart/Mediastinum: Cardiomegaly and pulmonary vascular congestion. Bones/joints: Unremarkable. XR/XR chest 1V portable [id number] IMPRESSION: 1. Endotracheal tube tip 18 mm above the surinder. 2. Enteric tube tip below the diaphragm over the gastric bubble. 3. Right central venous catheter tip the atrial caval junction. 4. Pacemaker. 5. Cardiomegaly and pulmonary vascular congestion. 6. Bibasilar atelectasis versus infiltrate.
[2022-08-15] MEDS: vancomycin 2,000 MG/400 ML PIGGYBACK 200 MG IV (00:12)
[2022-08-15 00:14] LABS: ABG PCO2 38.5 mmHg (35-45); ABG PH Result 7.22 (7.35-7.45); Arterial Blood Gas Hematocrit 37.2 % (37-47); Base Excess ABG -11.2 mmol/L (-2.0-2.0); Blood Gas Allen Test Pos; Blood Gas Sample Site Radial, right; Blood Gas Sample Type Arterial; Blood Gas Tidal Volume 0.45; HCO3 ABG 15.8 mmol/L (22-26); Oxygen Device VENT; PO2 ABG 90.5 mmHg (80.0-100.0)
[2022-08-15] MEDS: propofol 1,000 MG/100 ML INJ 9.12 MG IV (00:14)
[2022-08-15] MEDS: phenylephrine inj 25 MG in sodium chloride 0.9% 250 ML 24.24 MG IV (00:14)
--- NOTE | 2022-08-15 00:30 | PC.NURSE ---
Physician update: Dr. Guardado notified HCO3 15.8 and BP stable on Levophed and Jose @approximately 0030 08/15/22. New order for bicarb drip, discontinue jose, and start vaso. At approximately 0045 ART line pressures dropped to MAP's in the low 50's. Jose titrated up and vaso started to maintain MAP above 65. Dr. Guardado called and updated on the need to titrate pressers up quickly. New order to continue w/jose and when BP's stable, titrate off jose first. Dr. Guardado also updated on late medications (insulin and dexamethasone), new order to give medications late.
[2022-08-15] MEDS: sodium bicarbonate 150 MEQ in dextrose 5% 1,000 ML 100 MEQ IV ×3 (01:13→23:20)
[2022-08-15 01:14] LABS: Eosinophil Urine Eosinophils Seen
[2022-08-15 01:14] LABS: Basophils % 0.1 %; Eosinophils % 0.1 %; Hematocrit 46.8 % (37.0-47.0); Hemoglobin 13.4 g/dL (11.5-15.3); Lymphocytes # 0.8 10^3/uL (0.8-4.8); Lymphocytes % 2.2 %; Mean Corpuscular HGB Conc 28.6 g/dL (30.0-36.0); Mean Corpuscular Hemoglobin 23.1 pg (28.0-34.0); Mean Corpuscular Volume 80.6 fl (81-99); Mean Platelet Volume 9.5 fL (7.4-10.4); Monocytes # 1.7 10^3/uL (0.2-0.9); Monocytes % 4.9 %; Neutrophils # 29.33 10^3/uL (1.8-7.7); Neutrophils % 84.8 %; Nucleated Red Blood Cells % 0.1 %; Platelet Count 302 10^3/cmm (130-400); Red Blood Count 5.81 10^6/uL (4.1-5.3); Red Cell Distribution Width 22.7 % (12.1-15.1)
[2022-08-15 01:15] LABS: Urine Eosinophil Count 2 (0-0)
[2022-08-15] MEDS: norepinephrine 8 MG in dextrose 5 % 500 ML 76.2 MG IV ×3 (01:21→15:22)
[2022-08-15 01:36] LABS: Alanine Aminotransferase 126 U/L (0-33); Albumin Level 2.9 g/dL (3.5-5.2); Alkaline Phosphatase 108 U/L (35-105); Anion Gap 20.6 (5-19); Aspartate Amino Transferase 93 U/L (0-32); Blood Urea Nitrogen 43 mg/dL (8-23); Calcium 8.6 mg/dL (8.5-10.5); Carbon Dioxide 17 mmol/L (22-29); Chloride 94 mmol/L (98-107); Globulin 2.6 g/dL (1.3-4.6); Glomerular Filtration Rate 16.7 mL/min (90-130); Glucose 362 mg/dL (65-115); Magnesium 2.2 mg/dL (1.7-2.3); Osmolality Calculated 287 mOsm/kg (285-295); Phosphorus 5.1 mg/dL (2.5-4.5); Potassium 5.6 mmol/L (3.5-5.1); Slide Review Slide Review Perform; Sodium 126 mmol/L (136-145); Total Protein 5.5 g/dL (6.6-8.7)
[2022-08-15 01:37] LABS: White Blood Count 34.6 10^3/uL (4.0-10.0)
[2022-08-15 01:39] LABS: Troponin 5 6HR Delta -14.2 ng/L (0-12)
[2022-08-15] MEDS: dexamethasone 10 mg/mL INJ IVP ×4 (01:39→16:46)
[2022-08-15] MEDS: insulin lispro 100 unit/1 mL SUBCUT ×4 (01:47→16:47)
[2022-08-15 01:49] LABS: Glucose Point of Care 394 mg/dL (70-110)
[2022-08-15] MEDS: levalbuterol 0.63 mg/3 mL Neb INHALATION ×4 (03:08→19:53)
[2022-08-15 03:17] LABS: ABG PCO2 41.6 mmHg (35-45); ABG PH Result 7.23 (7.35-7.45); Arterial Blood Gas Hematocrit 39.5 % (37-47); Base Excess ABG -9.6 mmol/L (-2.0-2.0); Blood Gas Allen Test Pos; Blood Gas Sample Site Radial, right; Blood Gas Sample Type Arterial; Blood Gas Tidal Volume 0.45; HCO3 ABG 17.5 mmol/L (22-26); Oxygen Device VENT; PO2 ABG 79.2 mmHg (80.0-100.0)
[2022-08-15 03:28] LABS: Folate Level > 20.0 ng/mL (4.8-37.3)
--- NOTE | 2022-08-15 04:52 | PC.NURSE ---
Dr. Palomo contacted: Blood pooling under wound vac dressing. Picture of site sent to Dr. Palomo. Wound vac canister changed @0420 (500 ml blood out). New order to reinforce wound vac dressing and stat H&H.
[2022-08-15 05:09] LABS: Hematocrit 41.7 % (37.0-47.0); Hemoglobin 12.2 g/dL (11.5-15.3)
[2022-08-15] MEDS: ipratropium 0.5 mg/2.5 mL Neb INHALATION ×4 (05:15→19:53)
[2022-08-15] MEDS: phenylephrine inj 25 MG in sodium chloride 0.9% 250 ML 48.48 MG IV (05:18)
[2022-08-15] MEDS: meropenem 1,000 MG in sodium chloride 0.9% (plus) 50 ML 100 MG IV ×2 (05:31→17:45)
[2022-08-15] MEDS: pantoprazole 40 mg SDV IVP ×2 (05:32→16:46)
[2022-08-15] MEDS: propofol 1,000 MG/100 ML INJ 27.36 MG IV (06:02)
--- NOTE | 2022-08-15 06:04 | PC.NURSE ---
Physician Update: Spoke w/ Dr. Lovelace about the need to titrate sedation up, r/t pt waking up and biting tube, but the negative effect the sedation has on the pts BP. New order for Fentanyl tiltable drip. Alg. to Fentanyl. D/C Fentanyl order. New order for titratabe Versed drip.
--- NOTE | 2022-08-15 06:33 | PC.NURSE ---
ART Line: Medication titration was made based of continuos ART line measurements. See paper chart for Q15M ART line readings.
[2022-08-15] MEDS: budesonide 0.5 mg/2 mL Neb INHALATION ×2 (07:57→19:53)
[2022-08-15 08:29] LABS: Glucose Point of Care 469 mg/dL (70-110)
[2022-08-15] MEDS: propofol 1,000 MG/100 ML INJ 13.68 MG IV (10:23)
[2022-08-15] MEDS: phenylephrine inj 25 MG in sodium chloride 0.9% 250 ML 54.54 MG IV (10:30)
--- NOTE | 2022-08-15 11:32 | P.PN_ITS ---
Subjective Subjective: Patient was seen and examined multiple times today, she remains critically ill, she is maxed out on multiple pressors. Her other vitals and labs have been reviewed. Medications: Medication Review Details: Generic Name Dose Route Start Last Admin Trade Name Freq PRN Reason Stop Dose Admin Al Hydrox/Mg [place] x/Simethicone 30 ml 08/14/22 17:00 08/14/22 17:16 Tacc-Vhy-[place]zgba[place] de-Michel 30 Ml Udc PO 30 ml Q4H PRN Administration INDIGESTION Budesonide 0.5 mg 08/14/22 20:00 08/15/22 07:57 Budesonide 0.5 M g/2 Ml Neb INHALATION 0.5 mg BID.RESPIRATORY S CH Administration Dexamethasone 10 mg 08/14/22 17:00 08/15/22 10:23 Dexamethasone 10 Mg/Ml Inj IVP 10 mg Q6H RAMIRO Administration Meropenem 1,000 mg / Sodium 50 mls @ 100 mls/ hr 08/14/22 18:00 08/15/22 06:03 Chloride IV Infused Q12H RAMIRO Infusion Protocol Amiodarone HCl 900 mg/ 518 mls @ 0 mls/h r 08/14/22 17:30 08/15/22 05:00 Dextrose/ IV Misce llaneous IV 0.5 mg/min Supplies .Q0M RAMIRO 17.27 mls/hr Titration Protocol Per Protocol Vancomycin/PEG/NAD A/Lysine/Water 2,000 mg in 400 m ls @ 200 mls/hr 08/14/22 23:00 08/15/22 02:37 Vancocin IV Infused Q48H RAMIRO Infusion Propofol 1,000 mg in 100 m ls @ 0 mls/hr 08/14/22 23:30 08/15/22 10:23 Diprivan IV 15 mcg/kg/min .Q0M RAMIRO 13.68 mls/hr Administration Protocol Per Protocol Vasopressin 100 un it/ Sodium 100 mls @ 0 mls/h r 08/15/22 00:45 08/15/22 05:00 Chloride IV 0.1 unit/min .Q0M RAMIRO 6 mls/hr Titration Protocol Per Protocol Sodium Bicarbonate 150 meq/ 1,150 mls @ 100 m ls/hr 08/15/22 00:45 08/15/22 05:00 Dextrose IV 100 mls/hr .[id number] RAMIRO Infusion Norepinephrine Bit artrate 8 mg 508 mls @ 0 mls/h r 08/15/22 01:00 08/15/22 09:06 / Dextrose IV 20 mcg/min .Q0M RAMIRO 76.2 mls/hr Administration Protocol Per Protocol Phenylephrine HCl 25 mg/ 252.5 mls @ 0 mls /hr 08/15/22 01:45 08/15/22 09:06 Sodium Chloride IV 90 mcg/min .Q0M RAMIRO 54.54 mls/hr Titration Protocol Per Protocol Midazolam HCl 100 mg/ Sodium 100 mls @ 0 mls/h r 08/15/22 05:30 08/15/22 06:00 Chloride IV 1 mg/hr .Q0M RAMIRO 1 mls/hr Administration Protocol Per Protocol Insulin Human Lisp ro 0 unit 08/14/22 19:28 08/15/22 08:45 Insulin Lispro 1 00 Unit/1 Ml SUBCUT 16 unit WM&BEDTIME RAMIRO Administration Protocol Ipratropium Bromid e 0.5 mg 08/15/22 08:00 08/15/22 07:58 Ipratropium 0.5 Mg/2.5 Ml Neb INHALATION 0.5 mg Q6H.RESP RAMIRO Administration Levalbuterol HCl 0.63 mg 08/14/22 20:00 08/15/22 07:57 Levalbuterol 0.6 3 Mg/3 Ml Neb INHALATION 0.63 mg Q6H.RESP RAMIRO Administration Levothyroxine Sodi um 175 mcg 08/15/22 06:00 08/15/22 05:32 Levothyroxine 17 5 Mcg Tablet PO Not Given QAM RAMIRO Morphine Sulfate 2 mg 08/14/22 17:15 08/14/22 20:24 Morphine 4 Mg/Ml Sdv 1 Ml IVP 2 mg Q4H PRN Administration SEVERE PAIN Ondansetron HCl 4 mg 08/14/22 17:15 08/14/22 21:39 Ondansetron 2 Mg /Ml Sdv 2 Ml IVP 4 mg Q6H PRN Administration vomiting, or N/V if npo Pantoprazole Sodiu m 40 mg 08/14/22 17:00 08/15/22 05:32 Pantoprazole 40 Mg Sdv IVP 40 mg Q12H RAMIRO Administration Pramipexole Dihydr ochloride 1 mg 08/14/22 21:00 08/14/22 21:11 Pramipexole 0.25 Mg Tablet PO Not Given BEDTIME [facility] Promethazine HCl 12.5 mg 08/14/22 16:58 08/14/22 17:16 Promethazine 25 Mg/Ml Sdv 1 Ml IM 12.5 mg Q6H PRN Administration NAUSEA Sucralfate 1 gm 08/14/22 17:00 08/15/22 07:07 Sucralfate 1 Gm/ 10 Ml Oral Liq Udc PO Not Given AC&BEDTIME [facility] Vitals/I&O/Wt Last Vital Signs Temp 97.6 F 08/15/22 05:45 Pulse 123 H 08/15/22 10:30 Resp 22 H 08/15/22 09:30 BP 104/72 08/15/22 10:30 Pulse Ox 95 08/15/22 10:30 O2 Del Method Mechanical Ventilation 08/15/22 07:45 O2 Flow Rate 4 08/14/22 21:45 FiO2 45 08/15/22 10:28 08/14/22 08/15/22 08/15/22 22:59 06:59 14:59 Intake Total 835.305 / 219.856 3049.810 / 3251.115 478.542 / 478.542 Output Total 200 / 200 1600 / 1800 650 / 650 Balance 635.305 / 635.305 815.810 / 1451.115 -171.458 / -171.458 Weight last 48 hrs Weight 152 kg Physical Exam HENMT: COMMON NORMALS: normocephalic and atraumatic HEAD & SCALP: normocephalic and atraumatic Resp: COMMON NORMALS: clear to auscultation bilaterally AUSCULTATION: clear to auscultation bilaterally Cardio: COMMON NORMALS: regular rate, regular rhythm, S1 normal heart sound present, S2 normal heart sound present, No gallops present (Cardio), No murmurs present (Cardio), No rub (Cardio) and Peripheral pulses 2+ throughout RATE: regular rate RHYTHM: regular rhythm HEART SOUNDS: S1 normal heart sound present and S2 normal heart sound present PERIPHERAL PULSES: Peripheral pulses 2+ throughout GI: OTHER: wound vac in place Extremity: COMMON NORMALS: no clubbing, cyanosis or edema and no pedal edema Urinary Catheter Management: Zurita: Cath Placed During This Visit: yes Reason for Continuing Indwelling Catheter: Accurate Measurement of Urinary Output in Critically Ill Patients Urinary Catheter Date of Insertion: 08/14/22 Urinary Catheter Time of Insertion: 14:10 Data 08/15/22 15:40 08/15/22 11:54 Micro: Microbiology 08/14/22 21:48 Legionella Urinary Antigen - Final Unknown Source 08/14/22 21:48 Bacterial Antigens - Final Urine Kidney 08/14/22 14:50 Blood Culture - Preliminary Blood SPECIMEN COLLECTED 08/14/22 14:57 Blood Culture - Preliminary Blood SPECIMEN COLLECTED A&P Assessment and plan (1) Shock: (2) Adrenal crisis syndrome: (3) Paroxysmal atrial fibrillation with RVR: Was on Cardizem drip. Back to sinus rhythm. Stop Cardizem drip. Takes 300 mg of Cardizem at home. Switch to oral Cardizem 60 mg every 6 hourly to be given only if systolic blood pressure more than 110 mmHg. If not able to give Cardizem because of low blood pressures can start on amiodarone drip. Patient has allergy of amiodarone drip with blurry of vision. Confirm with the patient she is okay with starting amiodarone if not able to do Cardizem. Unfortunately cannot do digoxin given RODRIGUE on CKD currently. (4) Abdominal pain: (5) Nausea & vomiting: (6) Acute kidney injury superimposed on chronic kidney disease: . With iron gap metabolic acidosis. Zurita catheterization. Medical reconciliation done for nephrotoxic drugs. Urine lites, urine creatinine. Monitor BMP daily for now. (7) Chronic steroid use: (8) Obesity: (9) Hypothyroid: (10) Diabetes: Stop oral hypoglycemics Suicide insulin moderate dose protocol before meals and at bedtime. (11) Chronic kidney disease, stage 3a: (12) Hyperaldosteronism: (13) Elevated troponin: Monitor troponins. Serial EKGs. Repeat echocardiogram. Switch from Eliquis to full dose Lovenox. Appreciate recent A1c and lipid panel. Aspirin 81 mg daily after 324 mg one-time. (14) Lactic acidosis: (15) Asymptomatic bacteriuria: Follows up with ID as an outpatient. Currently UA shows negative nitrite with trace leuk esterase. Patient denies any dysuria. No UTI. (16) Cardiac resynchronization therapy defibrillator ([employer]-D) in place: Placed on 08/08 at outside hospital. Will request documents from outpatient bed control specialist Dr. Moody from [place]. Empiric antibiotics for now as above. Continue to monitor. Plan 72 year old female with past medical history of congestive diastolic heart failure, chronic intermittent atrial fibrillation post radiofrequency ablation, CAD, hypertension, hypothyroidism, hypopituitarism on chronic steroids, pulmonary hypertension, obstructive sleep apnea who was recently discharged from [facility] after [employer] implantation on Monday.?Patient presented to the ER today with epigastric abdominal cramps. Currently she is being managed for. Assessment: Septic shock: Secondary to ischemic necrosis of large intestine with GI trans location. CT chest abdomen and pelvis: There is subcutaneous emphysema along the left chest wall especially superior and deep to the pacemaker.?Ischemic cecum and ascending colon with pneumatosis in the bowel wall and gas within the adjacent draining veins. Portal venous gas. There is skin thickening and mild edema of the subcutaneous fat of the lower abdominal wall/pannus that may reflect cellulitis. No fluid collection or abscess. Random cortisol:3.71 Blood culture Urine culture Urine Legionella antigen negative Bacterial panel negative Lactic acid:3 Currently on high dose of multiple pressors (Levophed phenylephrine and vasopressin) Currently on stress dose of steroid hydrocortisone 100 mg IV every 6h Empirically on broad-spectrum antibiotic vancomycin and meropenem Ischemic necrosis of large intestine: Given her prior history of prior p aroxysmal atrial fibrillation possibility of embolic episode exist. S/p laparoscopy with conversion to exploratory laparotomy and right hemicolectomy Surgery on board RODRIGUE on CKD: Secondary to septic shock Baseline creatinine 1.2. Admission serum creatinine 2.4 Monitor BMP Intake output charting Continue IV hydration Avoid nephrotoxic CODE STATUS: Full code DVT prophylaxis on SCD Attestations Medical Necessity Statement*: Needs to be in hospital for management of septic shock. Critical Care Time: The high probability of a clinically significant, sudden or life threatening deterioration of the patient's [] system(s) required my full and direct attention, intervention and personal management. The critical care time is as shown. This time is in addition to time spent performing any reported procedures but includes the following: [x] Data and vital sign review and interpretation [x] Patient assessment, examination and intervention [x] Documentation [x] Medication orders and management Critical Care Time (min): 60 Coding Level of Care Code Acute Code for Chg Fwd Diagnoses Shock R57.9 Adrenal crisis syndrome E27.2 Paroxysmal atrial fibrillation with RVR I48.0 Abdominal pain R10.9 Nausea & vomiting R11.2 Acute kidney injury superimposed on chronic kidney disease N17.9; N18.9 Chronic steroid use Obesity E66.9 Hypothyroid E03.9 Diabetes E11.9 Chronic kidney disease, stage 3a N18.31 Hyperaldosteronism E26.9 Elevated troponin R77.8 Lactic acidosis E87.20 Asymptomatic bacteriuria R82.71 Cardiac resynchronization therapy defibrillator ([employer]-D) in place Z95.810
[2022-08-15 11:46] LABS: ABG PCO2 27.3 mmHg (35-45); ABG PH Result 7.38 (7.35-7.45); Alveolar-Arterial Oxygen Gradi 24.6 mmHg (5-10); Arterial Blood Gas Hematocrit 34.1 % (37-47); Base Excess ABG -7.5 mmol/L (-2.0-2.0); Blood Gas Operator Identificat GD; Blood Gas Sample Site Not specified; Blood Gas Sample Type Arterial; Blood Gas Tidal Volume 0.45; Carboxyhemoglobin 0.4 %THgb (0.4-20.1); HCO3 ABG 16.3 mmol/L (22-26); Methemoglobin 0.6 % (0.4-1.5); Oxygen Device VENT; PO2 ABG 96.1 mmHg (80.0-100.0); Potassium Level - ABG 4.9 mmol/L (3.5-5.0); Total Hemoglobin 11.1 g/dL (12-16)
[2022-08-15 12:32] LABS: Anion Gap 22.3 (5-19); Blood Urea Nitrogen 35 mg/dL (8-23); Calcium 6.9 mg/dL (8.5-10.5); Carbon Dioxide 15 mmol/L (22-29); Chloride 89 mmol/L (98-107); Glomerular Filtration Rate 24.6 mL/min (90-130); Osmolality Calculated 290 mOsm/kg (285-295); Potassium 5.3 mmol/L (3.5-5.1); Sodium 121 mmol/L (136-145)
[2022-08-15 12:36] LABS: Glucose 631 mg/dL (65-115)
[2022-08-15] MEDS: phenylephrine inj 25 MG in sodium chloride 0.9% 250 ML 121.2 MG IV (13:30)
--- NOTE | 2022-08-15 15:02 | PM.PN ---
Subjective Subjective: Patient requiring high pressure support. Sanguinous output from wound vac. Vitals/I&O/Wt Last Vital Signs Temp 97.6 F 08/15/22 05:45 Pulse 125 H 08/15/22 13:53 Resp 28 H 08/15/22 13:46 BP 79/66 08/15/22 12:30 Pulse Ox 97 08/15/22 13:46 O2 Del Method Mechanical Ventilation 08/15/22 13:44 O2 Flow Rate 4 08/14/22 21:45 FiO2 40 08/15/22 13:46 08/15/22 08/15/22 08/15/22 06:59 14:59 22:59 Intake Total 2415.810 / 3251.115 1570.258 / 1570.258 Output Total 1600 / 1800 650 / 650 Balance 815.810 / 1451.115 920.258 / 920.258 Weight last 48 hrs Weight 335 lb 1.642 oz Physical Exam Narrative: Gen: Intubated and sedated Abd: S, ND, no g/r, wound vac with sanguinous output Urinary Catheter Management: Zurita: Cath Placed During This Visit: yes Reason for Continuing Indwelling Catheter: Accurate Measurement of Urinary Output in Critically Ill Patients Urinary Catheter Date of Insertion: 08/14/22 Urinary Catheter Time of Insertion: 14:10 Data 08/15/22 04:48 08/15/22 11:54 Micro: Microbiology 08/14/22 14:50 Blood Culture - Preliminary Blood NEGATIVE TO DATE 08/14/22 14:57 Blood Culture - Preliminary Blood NEGATIVE TO DATE 08/14/22 21:48 Legionella Urinary Antigen - Final Unknown Source 08/14/22 21:48 Bacterial Antigens - Final Urine Kidney A&P Assessment and plan (1) Ischemic necrosis of large intestine: (2) Septic shock: Plan Bandemia has resolved. Medical mangement per hospitalist I would like to see the pressor requirements come down before taking her back to anastomose her bowel and close her abdomen. Tenatively planning to go back to OR at 5 pm tomorrow. STAT H&H CT Abdomen Further recs pending results of above Attestations Medical Necessity Statement*: per hospitalist Coding Level of Care Code Acute Code for g Fwd Diagnoses Ischemic necrosis of large intestine K55.049 Septic shock A41.9; R65.21
[2022-08-15 15:49] LABS: Hematocrit 29.8 % (37.0-47.0); Hemoglobin 8.6 g/dL (11.5-15.3)
[2022-08-15 16:42] LABS: Glucose Point of Care 581 mg/dL (70-110)
[2022-08-15] MEDS: sucralfate 1 gm/10 mL Oral Liq UDC PO ×2 (16:47→21:53)
[2022-08-15] MEDS: sodium chloride 0.9% 1,000 ML 999 ML IV ×2 (16:48→17:59)
[2022-08-15] MEDS: norepinephrine 8 MG in dextrose 5 % 500 ML 152.4 MG IV ×2 (19:02→23:07)
[2022-08-15] MEDS: sodium chloride 0.9% 1,000 ML 100 ML IV (19:23)
[2022-08-15] MEDS: hydrocortisone 100 mg/2 mL SDV IVP (19:26)
[2022-08-15 19:46] LABS: Glucose Point of Care 562 mg/dL (70-110)
[2022-08-15 19:46] LABS: Glucose Point of Care 539 mg/dL (70-110)
--- NOTE | 2022-08-15 20:11 | PC.NURSE ---
Physician Update: Spoke w/ Dr. Esqueda about pt condition including consistently low BP's, high BG, and amio drip order. New order for stat BMP. Continue amio @0.5. CBC, CMP, and Mag @2200. Start insulin drip after BMP resulted.
[2022-08-15 20:37] LABS: Glucose Point of Care 576 mg/dL (70-110)
[2022-08-15 21:15] LABS: Blood Urea Nitrogen 43 mg/dL (8-23); Calcium 6.7 mg/dL (8.5-10.5); Chloride 91 mmol/L (98-107); Glomerular Filtration Rate 16.7 mL/min (90-130); Osmolality Calculated 292 mOsm/kg (285-295); Sodium 122 mmol/L (136-145)
[2022-08-15 21:17] LABS: Carbon Dioxide 9 mmol/L (22-29)
[2022-08-15 21:26] LABS: Glucose 580 mg/dL (65-115)
[2022-08-15] MEDS: insulin regular-human 250 UNIT in sodium chloride 0.9% 250 ML 16 UNIT IV (21:45)
[2022-08-15 21:47] LABS: Glucose Point of Care 594 mg/dL (70-110)
[2022-08-15] MEDS: pramipexole 0.25 mg Tablet 1 MG PO (21:53)
--- NOTE | 2022-08-15 22:25 | PC.NURSE ---
Dr. Esqueda called unit: New order for stat CBC and Q4HR CMP's.
[2022-08-15 22:28] LABS: Hematocrit 28.2 % (37.0-47.0); Hemoglobin 8.1 g/dL (11.5-15.3); Mean Corpuscular HGB Conc 28.7 g/dL (30.0-36.0); Mean Corpuscular Hemoglobin 23.1 pg (28.0-34.0); Mean Corpuscular Volume 80.3 fl (81-99); Mean Platelet Volume 10.7 fL (7.4-10.4); Platelet Count 196 10^3/cmm (130-400); Red Blood Count 3.51 10^6/uL (4.1-5.3); Red Cell Distribution Width 21.3 % (12.1-15.1); White Blood Count 21.4 10^3/uL (4.0-10.0)
[2022-08-15 22:42] LABS: INR 4.95 (0.8-1.2); Partial Thromboplastin Time 42.6 SECONDS (23.9-36.7)
[2022-08-15 22:43] LABS: Fibrinogen 554 mg/dL (174-498)
[2022-08-15 22:45] LABS: D Dimer 2.44 ug/mIFEU (0-0.59)
[2022-08-15 22:50] LABS: Albumin Level 1.8 g/dL (3.5-5.2); Alkaline Phosphatase 110 U/L (35-105); Anion Gap 28.9 (5-19); Blood Urea Nitrogen 44 mg/dL (8-23); Calcium 6.6 mg/dL (8.5-10.5); Chloride 91 mmol/L (98-107); Magnesium 2.3 mg/dL (1.7-2.3); Osmolality Calculated 292 mOsm/kg (285-295); Potassium 5.9 mmol/L (3.5-5.1); Sodium 122 mmol/L (136-145); Total Bilirubin 0.7 mg/dL (0.15-1.2); Total Protein 3.8 g/dL (6.6-8.7)
[2022-08-15 22:52] LABS: Total Cells Counted 100 (0-100)
[2022-08-15 22:53] LABS: Absolute Neutrophil 19.5 10^3/cmm (1.4-6.5); Absolute Segmented Neutrophil 19.5 10/cmm (1.6-7.1); Eosinophils 0 %; Lymphocytes 2 %; Lymphocytes Absolute 0.4 10^3/cmm (1.2-3.4); Platelet Estimate Normal (Normal); Segmented Neutrophils 91 %
[2022-08-15 22:56] LABS: Glucose Point of Care 575 mg/dL (70-110)
[2022-08-15 23:07] LABS: Carbon Dioxide 8 mmol/L (22-29); Glucose 575 mg/dL (65-115)
--- NOTE | 2022-08-15 23:10 | PC.NURSE ---
Physicain Communication: New order to decrease NS to 75ml/hr from 100 and Sodium Bicarb to 100ml/hr from 125.
[2022-08-15] MEDS: calcium gluconate 0.1 gm/mL 10% SDV 10mL 1 GM IVP (23:21)
[2022-08-15 23:35] LABS: Alanine Aminotransferase 10843 U/L (0-33); Aspartate Amino Transferase 12204 U/L (0-32)
--- NOTE | 2022-08-15 23:37 | PC.NURSE ---
Medical Contraindication to Turning: Pt not tolerating Q2HR turning, BP drops more. Repositioning arms and legs Q2HRs. Pt is on an air mattress.
[2022-08-16] VITALS (109 sets, daily range): BP systolic 62–155; BP diastolic 50–100; PULSE 111–141; RESP 14–74; TEMP 36.2–38.3; O2SAT 87–100
[2022-08-16 00:16] LABS: Glucose Point of Care 571 mg/dL (70-110)
[2022-08-16 00:16] LABS: Glucose Point of Care 599 mg/dL (70-110)
[2022-08-16] MEDS: hydrocortisone 100 mg/2 mL SDV IVP ×4 (00:31→20:59)
[2022-08-16 01:05] LABS: Glucose Point of Care 565 mg/dL (70-110)
[2022-08-16] MEDS: levalbuterol 0.63 mg/3 mL Neb INHALATION ×4 (02:02→19:34)
[2022-08-16] MEDS: ipratropium 0.5 mg/2.5 mL Neb INHALATION ×4 (02:03→19:34)
[2022-08-16 02:10] LABS: Glucose Point of Care 515 mg/dL (70-110)
[2022-08-16 02:34] LABS: Hematocrit 26.4 % (37.0-47.0); Hemoglobin 7.7 g/dL (11.5-15.3); Mean Corpuscular HGB Conc 29.2 g/dL (30.0-36.0); Mean Corpuscular Hemoglobin 23.3 pg (28.0-34.0); Mean Corpuscular Volume 79.8 fl (81-99); Mean Platelet Volume 10.3 fL (7.4-10.4); Platelet Count 181 10^3/cmm (130-400); Red Blood Count 3.31 10^6/uL (4.1-5.3); Red Cell Distribution Width 21.1 % (12.1-15.1); White Blood Count 21.6 10^3/uL (4.0-10.0)
[2022-08-16 02:44] LABS: Albumin Level 1.8 g/dL (3.5-5.2); Alkaline Phosphatase 143 U/L (35-105); Anion Gap 25.3 (5-19); Blood Urea Nitrogen 45 mg/dL (8-23); Calcium 6.9 mg/dL (8.5-10.5); Carbon Dioxide 10 mmol/L (22-29); Chloride 91 mmol/L (98-107); Glomerular Filtration Rate 13.8 mL/min (90-130); Magnesium 2.3 mg/dL (1.7-2.3); Osmolality Calculated 289 mOsm/kg (285-295); Potassium 5.3 mmol/L (3.5-5.1); Sodium 121 mmol/L (136-145); Total Bilirubin 0.7 mg/dL (0.15-1.2); Total Protein 3.8 g/dL (6.6-8.7)
[2022-08-16 02:54] LABS: Glucose 548 mg/dL (65-115)
[2022-08-16 02:58] LABS: Glucose Point of Care 535 mg/dL (70-110)
[2022-08-16 03:01] LABS: Slide Review Slide Review Perform
[2022-08-16 03:02] LABS: Absolute Neutrophil 17.9 10^3/cmm (1.4-6.5); Absolute Segmented Neutrophil 17.9 10/cmm (1.6-7.1); Eosinophils 0 %; Lymphocytes 3 %; Lymphocytes Absolute 0.6 10^3/cmm (1.2-3.4); Monocytes Absolute 1.5 10^3/cmm (0.1-0.6); Platelet Estimate Normal (Normal); Segmented Neutrophils 83 %; Total Cells Counted 100 (0-100)
[2022-08-16 03:07] LABS: Aspartate Amino Transferase 17643 U/L (0-32)
[2022-08-16 03:08] LABS: Alanine Aminotransferase 12974 U/L (0-33)
[2022-08-16] MEDS: norepinephrine 8 MG in dextrose 5 % 500 ML 152.4 MG IV (03:15)
[2022-08-16 03:53] LABS: Glucose Point of Care 547 mg/dL (70-110)
[2022-08-16] MEDS: meropenem 1,000 MG in sodium chloride 0.9% (plus) 50 ML 100 MG IV ×2 (05:00→21:34)
[2022-08-16 05:12] LABS: Glucose Point of Care 564 mg/dL (70-110)
[2022-08-16] MEDS: pantoprazole 40 mg SDV IVP ×2 (05:12→20:55)
--- NOTE | 2022-08-16 05:40 | PC.NURSE ---
Dr. Esqueda called unit: Dr. Esqueda called unit for pt update. Discussed consistently high BG on insulin drip and fluid status. New order to stop blood transfusion after 1/2 the bag has been infused. New order to change the bicarb order to mix w/ NS instead of D5. New order for CBC 2 hours post blood transfusion being stopped.
[2022-08-16] MEDS: insulin regular-human 250 UNIT in sodium chloride 0.9% 250 ML 50.4 UNIT IV (05:49)
[2022-08-16] MEDS: levothyroxine 175 mcg Tablet PO (05:51)
[2022-08-16] MEDS: sucralfate 1 gm/10 mL Oral Liq UDC PO ×3 (06:00→22:22)
[2022-08-16 06:09] LABS: Glucose Point of Care 542 mg/dL (70-110)
[2022-08-16 06:44] LABS: Albumin Level 1.7 g/dL (3.5-5.2); Alkaline Phosphatase 172 U/L (35-105); Anion Gap 21.8 (5-19); Blood Urea Nitrogen 46 mg/dL (8-23); Calcium 6.6 mg/dL (8.5-10.5); Carbon Dioxide 13 mmol/L (22-29); Chloride 91 mmol/L (98-107); Glomerular Filtration Rate 15.4 mL/min (90-130); Glucose 498 mg/dL (65-115); Osmolality Calculated 286 mOsm/kg (285-295); Potassium 4.8 mmol/L (3.5-5.1); Sodium 121 mmol/L (136-145); Total Bilirubin 0.6 mg/dL (0.15-1.2); Total Protein 3.7 g/dL (6.6-8.7)
[2022-08-16] MEDS: norepinephrine 8 MG in dextrose 5 % 500 ML 114.3 MG IV (07:00)
[2022-08-16 07:08] LABS: Glucose Point of Care 471 mg/dL (70-110)
[2022-08-16 08:04] LABS: Hematocrit 22.2 % (37.0-47.0); Mean Corpuscular HGB Conc 29.3 g/dL (30.0-36.0); Mean Corpuscular Hemoglobin 23.1 pg (28.0-34.0); Mean Platelet Volume 10.4 fL (7.4-10.4); Platelet Count 121 10^3/cmm (130-400); Red Blood Count 2.81 10^6/uL (4.1-5.3); Red Cell Distribution Width 20.9 % (12.1-15.1); White Blood Count 17.2 10^3/uL (4.0-10.0)
[2022-08-16 08:16] LABS: Glucose Point of Care 460 mg/dL (70-110)
[2022-08-16] MEDS: budesonide 0.5 mg/2 mL Neb INHALATION ×2 (08:19→19:34)
[2022-08-16 08:28] LABS: ABG PCO2 25.5 mmHg (35-45); ABG PH Result 7.35 (7.35-7.45); Alveolar-Arterial Oxygen Gradi 19.1 mmHg (5-10); Base Excess ABG -10.3 mmol/L (-2.0-2.0); Blood Gas Operator Identificat GD; Blood Gas Sample Site Not specified; Blood Gas Sample Type Arterial; Blood Gas Tidal Volume 0.45; Carboxyhemoglobin 1.2 %THgb (0.4-20.1); HCO3 ABG 14.1 mmol/L (22-26); HGB O2 Sat 96.5 % (95-100); Ionized Calcium Level - ABG 0.9 mmol/L (1.1-1.4); Methemoglobin 0.9 % (0.4-1.5); Oxygen Device VENT; Oxygen Saturation ABG 98.6; Potassium Level - ABG 3.6 mmol/L (3.5-5.0); Total Hemoglobin 8.5 g/dL (12-16)
[2022-08-16] MEDS: albumin 25 G/100 ML BAG 60 G IV ×2 (08:53→15:59)
[2022-08-16 09:06] LABS: Eosinophils 2 %; Lymphocytes 3 %; Platelet Estimate Decreased (Normal); Segmented Neutrophils 81 %; Total Cells Counted 100 (0-100)
[2022-08-16 09:07] LABS: Hemoglobin 6.5 g/dL (11.5-15.3)
[2022-08-16 09:11] LABS: Glucose Point of Care 400 mg/dL (70-110)
[2022-08-16 09:25] LABS: Alanine Aminotransferase 15584 U/L (0-33); Aspartate Amino Transferase 22591 U/L (0-32)
--- NOTE | 2022-08-16 10:10 | P.CONIM_ITS ---
Providers/Reason For Consult Consulting Physician/Specialty*: [facility]/Nephrology Reason for Consult*: RODRIGUE Attending Physician: Justo Ramos MD Primary Care Provider: Piedad Sandhu MD History of Present Illness History of Present Illness Patient is a 72-year-old female with past medical history of CHF A-fib, coronary artery disease, hypertension hypothyroidism pulmonary function sleep apnea presented to the emergency department due to abdominal pain nausea vomiting patient was found to be in A-fib with RVR in the ED and was started on Cardizem drip. Blood pressure was noted to be low and was started on pressors and admitted to ICU. CT abdomen pelvis showed pneumatosis at the level of cecum and ascending colon. Patient underwent laparoscopy and right hemicolectomy. Patient remains on 3 pressors currently intubated and sedated. Patient's baseline creatinine is normal at 0.8 presented with a creatinine of 2.4 and currently at 3.0. Patient has been making reasonable output. Has severe metabolic acidosis with a bicarbonate level of 13, sodium is low at 121. . Review of Systems Narrative: Cannot obtain from pt Medications/Allergies Home Medications Medication Instructions Recorded Confirmed Last Taken Type diabetic supplies, miscellan. #1 ea 01/21/21 08/14/22 Unknown Rx blood-glucose meter,continuous #1 ea 03/04/21 08/14/22 Unknown Rx polyethylene glycol 3350 17 17 g PO DAILY PRN Constipation 05/05/21 08/14/22 01/11/22 History gram/dose oral powder (Miralax) cpap mask and supplies #1 ea 09/14/21 08/14/22 Unknown Rx apixaban 5 mg tablet (Eliquis) 5 mg PO BID 06/02/22 08/14/22 08/13/22 History lactulose 10 gram/15 mL oral 30 ml PO BID PRN Constipation 06/02/22 08/14/22 Unknown History solution blood sugar diagnostic (Pharmacist #50 ea 06/09/22 08/14/22 Unknown Rx Choice Glucose Test Strips) diltiazem HCl 300 mg 300 mg PO QAM #30 caps 06/09/22 08/14/22 08/13/22 Rx capsule,extended release 24 hr levothyroxine 175 mcg tablet 175 mcg PO QAM 90 days #90 tabs 06/09/22 08/14/22 08/13/22 Rx ennlokwh-jlrbmqbkn-jubfaukm 3.5 1 drp ophthalmic (eye) Q12H #5 mL 06/09/22 08/14/22 07/09/22 Rx mg/mL-10,000 unit/mL-0.1% eye drops (Maxitrol) potassium chloride 20 mEq 20 meq PO BID PRN low potassium 06/09/22 08/14/22 3 Weeks Ago Rx tablet,extended #30 tabs ~06/16/22 release(part/cryst) (Klor-Con M) pramipexole 0.5 mg tablet (Mirapex) 1 mg PO BEDTIME #30 tabs 06/09/22 08/14/22 08/13/22 Rx neomycin-bacitracn Zn-polymyx 3.5 1 applic topical QID 5 days #14 07/01/22 08/14/22 07/09/22 Rx mg-400 unit-5,000 unit/gram top grams oint (Antibiotic(rivkj-zjttp-toyhp)) liraglutide 0.6 mg/0.1 mL (18 mg/3 1.8 mg SUBCUT QAM 07/07/22 08/14/22 08/13/22 History mL) subcutaneous pen injector (Edaixi 3-Nabeel) ciprofloxacin HCl 500 mg tablet 500 mg PO BID #8 tabs 07/11/22 08/14/22 08/13/22 Rx losartan 50 mg tablet 50 mg PO DAILY #30 tabs 07/18/22 08/14/22 08/13/22 Rx oxybutynin chloride 10 mg 10 mg PO DAILY #30 tabs 07/18/22 08/14/22 08/13/22 Rx tablet,extended release 24 hr (Ditropan XL) escitalopram oxalate 10 mg tablet 10 mg PO DAILY #30 tabs 07/22/22 08/14/22 08/13/22 Rx (Lexapro) acarbose 25 mg tablet 25 mg PO TID #90 tabs 07/25/22 08/14/22 08/13/22 Rx insulin glargine 100 unit/mL (3 20 unit (0.2 mL) SUBCUT DAILY 30 07/25/22 08/14/22 Unknown Rx mL) subcutaneous pen (Lan days #15 mL Solostar U-100 Insulin) ondansetron HCl 8 mg tablet 8 mg PO Q8H PRN Nausea And 05/03/23 05/21/23 Unknown Rx Vomiting #30 tabs spironolactone 25 mg tablet See Rx Instructions .Route 07/28/22 08/14/22 08/13/22 Rx .COMPLEX #120 tabs dexlansoprazole 60 mg 60 mg PO DAILY #30 caps 07/29/22 08/14/22 08/13/22 Rx capsule,biphase delayed release (Dexilant) Novolog FlexPen U-100 Insulin 100 15 unit (0.15 mL) SUBCUT TID 90 08/10/22 08/14/22 Unknown Rx unit/mL (3 mL) subcutaneous days #40.5 mL (insulin aspart U-100) bumetanide 1 mg tablet 2 mg PO BID 08/14/22 08/14/22 08/13/22 History dexamethasone 1 mg tablet 1 mg PO DAILY 08/14/22 08/14/22 08/13/22 History Allergies Allergy/AdvReac Type Severity Reaction Status Date / Time pregabalin Allergy Unknown ADV-Weaknes Verified 08/14/22 13:17 s acetaminophen [From Tylenol] Allergy ALGY-Hives Verified 08/14/22 13:17 amiodarone Allergy vision Verified 08/14/22 13:17 issue amoxicillin [From Augmentin] Allergy Unknown Verified 08/14/22 13:17 azithromycin Allergy ALGY-Anaphy Verified 08/14/22 13:17 laxis benzocaine Allergy ALGY-Hives Verified 08/14/22 13:17 butamben [From Cetacaine] Allergy ALGY-Swell Verified 08/14/22 13:17 Lip/Tongue/Throat clavulanic acid Allergy Unknown Verified 08/14/22 13:17 [From Augmentin] codeine Allergy ALGY-Hives Verified 08/14/22 13:17 empagliflozin Allergy ADR-Itching Verified 08/14/22 13:17 [From Jardiance] fentanyl Allergy ALGY-Anaphy Verified 08/14/22 13:17 laxis hydrocodone [From Vicodin] Allergy ALGY-Hives Verified 08/14/22 13:17 hydromorphone [From Dilaudid] Allergy ADR-Vomitin Verified 08/14/22 13:17 g Iodinated Contrast Media Allergy ALGY-Anaphy Verified 08/14/22 13:17 laxis liothyronine Allergy ADR-Nausea Verified 08/14/22 13:17 meperidine [From Demerol] Allergy Unknown Verified 08/14/22 13:17 metoclopramide [From Reglan] Allergy ADR-Anxiety Verified 08/14/22 13:17 morphine Allergy ALGY-Anaphy Verified 08/14/22 13:17 laxis nitrofurantoin Allergy ALGY-Joint Verified 08/14/22 13:17 [From Macrobid] Pain oxycodone [From Percocet] Allergy ALGY-Hives Verified 08/14/22 13:17 penicillin V Allergy ALGY-Hives Verified 08/14/22 13:17 Penicillins Allergy Unknown Verified 08/14/22 13:17 Phenothiazines Allergy ALGY-Anaphy Verified 08/14/22 13:17 laxis procaine Allergy ALGY-Hives Verified 08/14/22 13:17 prochlorperazine Allergy ALGY-Anaphy Verified 08/14/22 13:17 [From Compazine] laxis semaglutide [From Ozempic] Allergy ADR-Nausea Verified 08/14/22 13:17 Sulfa (Sulfonamide Allergy Unknown Verified 08/14/22 13:17 Antibiotics) tetracaine [From Cetacaine] Allergy ALGY-Swell Verified 08/14/22 13:17 Lip/Tongue/Throat tramadol [From Ultram] Allergy ADR-Nausea Verified 08/14/22 13:17 Current Medications Generic Name Dose Route Start Last Admin Trade Name Freq PRN Reason Stop Dose Admin Al Hydrox/Mg Hydrox/Simethicone 30 ml 08/14/22 17:00 08/14/22 17:16 Wvzj-Kqr-Revaxptaa-Michel 30 Ml Udc PO 30 ml Q4H PRN Administration INDIGESTION Budesonide 0.5 mg 08/14/22 20:00 08/16/22 08:19 Budesonide 0.5 Mg/2 Ml Neb INHALATION 0.5 mg BID.RESPIRATORY RAMIRO Administration Hydrocortisone Sodium Succinate 100 mg 08/15/22 18:15 08/16/22 06:14 Hydrocortisone 100 Mg/2 Ml Sdv IVP 100 mg Q6H RAMIRO Administration Meropenem 1,000 mg/ Sodium 50 mls @ 100 mls/hr 08/14/22 18:00 08/16/22 05:30 Chloride IV Infused Q12H RAMIRO Infusion Protocol Vancomycin/PEG/NADA/Lysine/Water 2,000 mg in 400 mls @ 200 mls/hr 08/14/22 2 3:00 08/15/22 02:37 Vancocin IV Infused Q48H RAMIRO Infusion Propofol 1,000 mg in 100 mls @ 0 mls/hr 08/14/22 23:30 08/16/22 06:05 Diprivan IV Infused .Q0M RAMIRO Titration Protocol Per Protocol Vasopressin 100 unit/ Sodium 100 mls @ 0 mls/hr 08/15/22 00:45 08/16/22 08:53 Chloride IV 0.1 unit/min .Q0M RAMIRO 6 mls/hr Administration Protocol Per Protocol Norepinephrine Bitartrate 8 mg 508 mls @ 0 mls/hr 08/15/22 01:00 08/16/22 07:00 / Dextrose IV 30 mcg/min .Q0M RAMIRO 114.3 mls/hr Administration Protocol Per Protocol Phenylephrine HCl 25 mg/ 252.5 mls @ 0 mls/hr 08/15/22 01:45 08/15/22 15:40 Sodium Chloride IV Infused .Q0M RAMIRO Titration Protocol Per Protocol Midazolam HCl 100 mg/ Sodium 100 mls @ 0 mls/hr 08/15/22 05:30 08/15/22 23:00 Chloride IV 6 mg/hr .Q0M RAMIRO 6 mls/hr Administration Protocol Per Protocol Phenylephrine HCl 50 mg/ 505 mls @ 0 mls/hr 08/15/22 15:00 08/16/22 06:35 Sodium Chloride IV 60 mcg/min .Q0M RAMIRO 36.36 mls/hr Titration Protocol Per Protocol Insulin Human Regular 250 unit 252.5 mls @ 0 mls/hr 08/15/22 20:15 08/16/22 07:07 / Sodium Chloride IV 49 ml/hr .Q0M RAMIRO 49 mls/hr Titration Protocol Per Protocol Amiodarone HCl 900 mg/ 518 mls @ 17.267 mls/hr 08/15/22 20:15 08/15/22 20:54 Dextrose/ IV Miscellaneous IV 0.5 mg/min Supplies CONT RAMIRO 17.27 mls/hr Administration 0.5 MG/MIN Sodium Bicarbonate 150 meq/ 1,150 mls @ 100 mls/hr 08/16/22 05:35 08/16/22 06:02 Sodium Chloride IV 100 mls/hr .[id number] RAMIRO Administration Albumin Human 25 g in 100 mls @ 60 mls/hr 08/16/22 08:30 08/16/22 08:53 Albumin IV 60 mls/hr Q8H RAMIRO Administration Ipratropium Natalbany 0.5 mg 08/15/22 08:00 08/16/22 08:19 Ipratropium 0.5 Mg/2.5 Ml Neb INHALATION 0.5 mg Q6H.RESP RAMIRO Administration Levalbuterol HCl 0.63 mg 08/14/22 20:00 08/16/22 08:19 Levalbuterol 0.63 Mg/3 Ml Neb INHALATION 0.63 mg Q6H.RESP RAMIRO Administration Levothyroxine Sodium 175 mcg 08/15/22 06:00 08/16/22 05:51 Levothyroxine 175 Mcg Tablet PO 175 mcg QAM RAMIRO Administration Morphine Sulfate 2 mg 08/14/22 17:15 08/14/22 20:24 Morphine 4 Mg/Ml Sdv 1 Ml IVP 2 mg Q4H PRN Administration SEVERE PAIN Ondansetron HCl 4 mg 08/14/22 17:15 08/14/22 21:39 Ondansetron 2 Mg/Ml Sdv 2 Ml IVP 4 mg Q6H PRN Administration vomiting, or N/V if npo Pantoprazole Sodium 40 mg 08/14/22 17:00 08/16/22 05:12 Pantoprazole 40 Mg Sdv IVP 40 mg Q12H RAMIRO Administration Pramipexole Dihydrochloride 1 mg 08/14/22 21:00 08/15/22 21:53 Pramipexole 0.25 Mg Tablet PO 1 mg BEDTIME RAMIRO Administration Promethazine HCl 12.5 mg 08/14/22 16:58 08/14/22 17:16 Promethazine 25 Mg/Ml Sdv 1 Ml IM 12.5 mg Q6H PRN Administration NAUSEA Sucralfate 1 gm 08/14/22 17:00 08/16/22 06:00 Sucralfate 1 Gm/10 Ml Oral Liq Udc PO 1 gm AC&BEDTIME RAMIRO Administration PFSH Acute PFSH: Medical History Acute hypercapnic respiratory failure Acute kidney injury superimposed on chronic kidney disease Adrenal insufficiency Anasarca Anemia Asymptomatic bacteriuria Atrial fibrillation Benign essential hypertension with target blood pressure below 140/90 Cardiac resynchronization therapy defibrillator ([employer]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 Central hypothyroidism CHF (congestive heart failure) Chronic back pain Follows at pain clinic for periodic injections Chronic hyponatremia Chronic kidney disease, stage 3a Colitis COVID-19 (~09/2020) Diastolic heart failure Edema ESBL (extended spectrum beta-lactamase) producing bacteria infection Facet arthritis, degenerative, lumbar spine Fatigue Gastroenteritis History of adrenal insufficiency History of anaphylaxis History of atrial fibrillation Intermittent, has not required long-term anticoagulation or focused treatment History of COVID-19 HTN (hypertension) Hx of atrial fibrillation, no current medication Hyperaldosteronism Hypokalemia Hypomagnesemia Hypophosphatemia 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 Increased nausea and vomiting VINNY-2 gene mutation Lumbar spondylolysis Metabolic acidosis Nausea vomiting and diarrhea OAB (overactive bladder) Obesity Obesity, morbid, BMI 50 or higher Obstructive sleep apnea KP (obstructive sleep apnea) Paroxysmal atrial fibrillation Pituitary macroadenoma with extrasellar extension Polycythemia vera Prediabetes Pulmonary hypertension PVD (peripheral vascular disease) Shock Stasis edema with ulcer and inflammation Steroid dependence Tachycardia Type 2 diabetes mellitus with other diabetic kidney complication Unsteady gait UTI (urinary tract infection) Venous (peripheral) insufficiency Volume overload VT (ventricular tachycardia) Surgical History H/O shoulder surgery History of hysterectomy History of pituitary surgery S/P insertion of spinal cord stimulator Family History Father Cancer pancreatic cancer Sister No problems noted. 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 Current gender identity: Female Vitals/I&O/Wt Last Vital Signs Temp 99.9 F H 08/16/22 07:00 Pulse 138 H 08/16/22 08:38 Resp 24 H 08/16/22 09:19 BP 88/65 08/16/22 08:00 Pulse Ox 96 08/16/22 09:19 O2 Del Method Mechanical Ventilation 08/16/22 08:19 O2 Flow Rate 4 08/14/22 21:45 FiO2 30 08/16/22 09:19 08/15/22 08/16/22 08/16/22 22:59 06:59 14:59 Intake Total 4976.418 / 6568.792 4327.840 / 04012.632 131.183 / 131.183 Output Total 1225 / 1875 200 / 2075 775 / 775 Balance 3751.418 / 4693.792 4127.840 / 8821.632 -643.817 / -643.817 Weight last 48 hrs Weight 152 kg Physical Exam Narrative: intubated sedated Urinary Catheter Management: Zurita: Cath Placed During This Visit: yes Reason for Continuing Indwelling Catheter: Accurate Measurement of Urinary Output in Critically Ill Patients Urinary Catheter Date of Insertion: 08/14/22 Urinary Catheter Time of Insertion: 14:10 Data 08/16/22 07:53 08/16/22 05:55 Micro: Microbiology 08/15/22 08:15 Gram Stain - Final Sputum - Endotracheal Tube Aspirate 08/14/22 14:50 Blood Culture - Preliminary Blood NEGATIVE TO DATE 08/14/22 14:57 Blood Culture - Preliminary Blood NEGATIVE TO DATE 08/14/22 21:48 Legionella Urinary Antigen - Final Unknown Source 08/14/22 21:48 Bacterial Antigens - Final Urine Kidney A&P Assessment and plan (1) Acute kidney injury superimposed on chronic kidney disease: (2) Lactic acidosis: Plan 1. RODRIGUE: Secondary to sepsis, nonoliguric, Given severe hemodynamic instability and on 3 pressors, may not tolerate any form of dialysis at this point. Continue to monitor closely 2. Severe metabolic acidosis: Secondary to lactic acidosis and RODRIGUE. On bicarbonate drip, can do bicarb pushes intermittently 3. Hyponatremia: Has chronic hyponatremia with sodium in low 130s range, from probably CHF but now worsened to 121 currently, continue fluids and monitor, avoid hypotonic fluids -We will request all antibiotics and drops mixed in normal sane instead of D5w 4. Septic shock secondary to ischemic bowel: Status post right hemicolectomy, g eneral surgery following 5. History of coronary artery disease, CHF, A-fib,, KP Patient evaluated using audiovisual cart. Time spent 45 minutes Consult Attestations Medical Necessity Statement: per medicine Coding Level of Care Code Acute Code for Chg Fwd Diagnoses Acute kidney injury superimposed on chronic kidney disease N17.9; N18.9 Lactic acidosis E87.20
[2022-08-16 10:16] LABS: Glucose Point of Care 388 mg/dL (70-110)
[2022-08-16 10:57] LABS: Albumin Level 1.6 g/dL (3.5-5.2); Alkaline Phosphatase 167 U/L (35-105); Anion Gap 18.2 (5-19); Blood Urea Nitrogen 47 mg/dL (8-23); Calcium 6.6 mg/dL (8.5-10.5); Carbon Dioxide 15 mmol/L (22-29); Chloride 91 mmol/L (98-107); Glomerular Filtration Rate 14.3 mL/min (90-130); Glucose 360 mg/dL (65-115); Osmolality Calculated 277 mOsm/kg (285-295); Potassium 4.2 mmol/L (3.5-5.1); Sodium 120 mmol/L (136-145); Total Bilirubin 0.9 mg/dL (0.15-1.2); Total Protein 3.6 g/dL (6.6-8.7)
[2022-08-16 11:03] LABS: Glucose Point of Care 364 mg/dL (70-110)
[2022-08-16 11:46] LABS: Alanine Aminotransferase 15894 U/L (0-33); Aspartate Amino Transferase 21332 U/L (0-32)
[2022-08-16] MEDS: norepinephrine 8 MG in dextrose 5 % 500 ML 76.2 MG IV (12:00)
[2022-08-16 12:14] LABS: Glucose Point of Care 318 mg/dL (70-110)
--- NOTE | 2022-08-16 13:05 | PM.PN ---
Subjective Subjective: Patient was seen and examined, she continues to be critically ill, continue to be on multiple pressors, hemoglobin has dropped to 6.5, PC has dropped to 107 , significant transaminitis, secondary to shock liver Serum creatinine is also trending up, patient is also having low-grade temperature spikes. Medications: Medication Review Details: Generic Name Dose Route Start Last Admin Trade Name Freq PRN Reason Stop Dose Admin Al Hydrox/Mg [place] x/Simethicone 30 ml 08/14/22 17:00 08/14/22 17:16 Agep-Bpz-Vcomtre de-Michel 30 Ml Udc PO 30 ml Q4H PRN Administration INDIGESTION Budesonide 0.5 mg 08/14/22 20:00 08/16/22 08:19 Budesonide 0.5 M g/2 Ml Neb INHALATION 0.5 mg BID.RESPIRATORY S CH Administration Hydrocortisone Sod ium Succinate 100 mg 08/15/22 18:15 08/16/22 11:57 Hydrocortisone 1 00 Mg/2 Ml Sdv IVP 100 mg Q6H RAMIRO Administration Meropenem 1,000 mg / Sodium 50 mls @ 100 mls/ hr 08/14/22 18:00 08/16/22 05:30 Chloride IV Infused Q12H RAMIRO Infusion Protocol Vancomycin/PEG/NAD A/Lysine/Water 2,000 mg in 400 m ls @ 200 mls/hr 08/14/22 23:00 08/15/22 02:37 Vancocin IV Infused Q48H RAMIRO Infusion Propofol 1,000 mg in 100 m ls @ 0 mls/hr 08/14/22 23:30 08/16/22 06:05 Diprivan IV Infused .Q0M RAMIRO Titration Protocol Per Protocol Vasopressin 100 un it/ Sodium 100 mls @ 0 mls/h r 08/15/22 00:45 08/16/22 08:53 Chloride IV 0.1 unit/min .Q0M RAMIRO 6 mls/hr Administration Protocol Per Protocol Norepinephrine Bit artrate 8 mg 508 mls @ 0 mls/h r 08/15/22 01:00 08/16/22 07:00 / Dextrose IV 30 mcg/min .Q0M RAMIRO 114.3 mls/hr Administration Protocol Per Protocol Phenylephrine HCl 25 mg/ 252.5 mls @ 0 mls /hr 08/15/22 01:45 08/15/22 15:40 Sodium Chloride IV Infused .Q0M RAMIRO Titration Protocol Per Protocol Midazolam HCl 100 mg/ Sodium 100 mls @ 0 mls/h r 08/15/22 05:30 08/15/22 23:00 Chloride IV 6 mg/hr .Q0M RAMIRO 6 mls/hr Administration Protocol Per Protocol Phenylephrine HCl 50 mg/ 505 mls @ 0 mls/h r 08/15/22 15:00 08/16/22 06:35 Sodium Chloride IV 60 mcg/min .Q0M RAMIRO 36.36 mls/hr Titration Protocol Per Protocol Insulin Human Regu lar 250 unit 252.5 mls @ 0 mls /hr 08/15/22 20:15 08/16/22 07:07 / Sodium Chlorid e IV 49 ml/hr .Q0M RAMIRO 49 mls/hr Titration Protocol Per Protocol Amiodarone HCl 900 mg/ 518 mls @ 17.267 mls/hr 08/15/22 20:15 08/15/22 20:54 Dextrose/ IV Misce llaneous IV 0.5 mg/min Supplies CONT RAMIRO 17.27 mls/hr Administration 0.5 MG/MIN Sodium Bicarbonate 150 meq/ 1,150 mls @ 100 m ls/hr 08/16/22 05:35 08/16/22 06:02 Sodium Chloride IV 100 mls/hr .[id number] RAMIRO Administration Albumin Human 25 g in 100 mls @ 60 mls/hr 08/16/22 08:30 08/16/22 08:53 Albumin IV 60 mls/hr Q8H RAMIRO Administration Ipratropium Bromid e 0.5 mg 08/15/22 08:00 08/16/22 08:19 Ipratropium 0.5 Mg/2.5 Ml Neb INHALATION 0.5 mg Q6H.RESP RAMIRO Administration Levalbuterol HCl 0.63 mg 08/14/22 20:00 08/16/22 08:19 Levalbuterol 0.6 3 Mg/3 Ml Neb INHALATION 0.63 mg Q6H.RESP RAMIRO Administration Levothyroxine Sodi um 175 mcg 08/15/22 06:00 08/16/22 05:51 Levothyroxine 17 5 Mcg Tablet PO 175 mcg QAM RAMIRO Administration Morphine Sulfate 2 mg 08/14/22 17:15 08/14/22 20:24 Morphine 4 Mg/Ml Sdv 1 Ml IVP 2 mg Q4H PRN Administration SEVERE PAIN Ondansetron HCl 4 mg 08/14/22 17:15 08/14/22 21:39 Ondansetron 2 Mg /Ml Sdv 2 Ml IVP 4 mg Q6H PRN Administration vomiting, or N/V if npo Pantoprazole Sodiu m 40 mg 08/14/22 17:00 08/16/22 05:12 Pantoprazole 40 Mg Sdv IVP 40 mg Q12H RAMIRO Administration Pramipexole Dihydr ochloride 1 mg 08/14/22 21:00 08/15/22 21:53 Pramipexole 0.25 Mg Tablet PO 1 mg BEDTIME RAMIRO Administration Promethazine HCl 12.5 mg 08/14/22 16:58 08/14/22 17:16 Promethazine 25 Mg/Ml Sdv 1 Ml IM 12.5 mg Q6H PRN Administration NAUSEA Sucralfate 1 gm 08/14/22 17:00 08/16/22 11:57 Sucralfate 1 Gm/ 10 Ml Oral Liq Udc PO 1 gm AC&BEDTIME RAMIRO Administration Vitals/I&O/Wt Last Vital Signs Temp 99.9 F H 08/16/22 12:25 Pulse 140 H 08/16/22 12:33 Resp 20 H 08/16/22 12:25 BP 113/76 08/16/22 12:25 Pulse Ox 96 08/16/22 12:25 O2 Del Method Mechanical Ventilation 08/16/22 08:19 O2 Flow Rate 4 08/14/22 21:45 FiO2 30 08/16/22 11:26 08/15/22 08/16/22 08/16/22 22:59 06:59 14:59 Intake Total 4976.418 / 6568.792 4327.840 / 09370.632 131.183 / 131.183 Output Total 1225 / 1875 200 / 2075 1275 / 1275 Balance 3751.418 / 4693.792 4127.840 / 8821.632 -1143.817 / -1143.817 Weight last 48 hrs Weight 152 kg Physical Exam HENMT: COMMON NORMALS: normocephalic and atraumatic HEAD & SCALP: normocephalic and atraumatic Resp: COMMON NORMALS: clear to auscultation bilaterally AUSCULTATION: clear to auscultation bilaterally Cardio: COMMON NORMALS: regular rate, regular rhythm, S1 normal heart sound present, S2 normal heart sound present, No gallops present (Cardio), No murmurs present (Cardio), No rub (Cardio) and Peripheral pulses 2+ throughout RATE: regular rate RHYTHM: regular rhythm HEART SOUNDS: S1 normal heart sound present and S2 normal heart sound present PERIPHERAL PULSES: Peripheral pulses 2+ throughout GI: OTHER: wound vac in place Extremity: COMMON NORMALS: no clubbing, cyanosis or edema and no pedal edema Urinary Catheter Management: Zurita: Cath Placed During This Visit: yes Reason for Continuing Indwelling Catheter: Accurate Measurement of Urinary Output in Critically Ill Patients Urinary Catheter Date of Insertion: 08/14/22 Urinary Catheter Time of Insertion: 14:10 Data 08/16/22 13:38 08/16/22 13:38 Micro: Microbiology 08/15/22 08:15 Gram Stain - Final Sputum - Endotracheal Tube Aspirate Sputum Culture - Preliminary Yeast species 08/14/22 14:50 Blood Culture - Preliminary Blood NEGATIVE TO DATE 08/14/22 14:57 Blood Culture - Preliminary Blood NEGATIVE TO DATE 08/14/22 21:48 Legionella Urinary Antigen - Final Unknown Source 08/14/22 21:48 Bacterial Antigens - Final Urine Kidney A&P Assessment and plan (1) Shock: (2) Adrenal crisis syndrome: (3) Paroxysmal atrial fibrillation with RVR: Was on Cardizem drip. Back to sinus rhythm. Stop Cardizem drip. Takes 300 mg of Cardizem at home. Switch to oral Cardizem 60 mg every 6 hourly to be given only if systolic blood pressure more than 110 mmHg. If not able to give Cardizem because of low blood pressures can start on amiodarone drip. Patient has allergy of amiodarone drip with blurry of vision. Confirm with the patient she is okay with starting amiodarone if not able to do Cardizem. Unfortunately cannot do digoxin given RODRIGUE on CKD currently. (4) Abdominal pain: (5) Nausea & vomiting: (6) Acute kidney injury superimposed on chronic kidney disease: . With iron gap metabolic acidosis. Zurita catheterization. Medical reconciliation done for nephrotoxic drugs. Urine lites, urine creatinine. Monitor BMP daily for now. (7) Chronic steroid use: (8) Obesity: (9) Hypothyroid: (10) Diabetes: Stop oral hypoglycemics Suicide insulin moderate dose protocol before meals and at bedtime. (11) Chronic kidney disease, stage 3a: (12) Hyperaldosteronism: (13) Elevated troponin: Monitor troponins. Serial EKGs. Repeat echocardiogram. Switch from Eliquis to full dose Lovenox. Appreciate recent A1c and lipid panel. Aspirin 81 mg daily after 324 mg one-time. (14) Lactic acidosis: (15) Asymptomatic bacteriuria: Follows up with ID as an outpatient. Currently UA shows negative nitrite with trace leuk esterase. Patient denies any dysuria. No UTI. (16) Cardiac resynchronization therapy defibrillator (CHEMICAL LABORATORY TESTER-D) in place: Placed on 08/08 at outside hospital. Will request documents from outpatient diagrammer and seamer Dr. Moody from [place]. Empiric antibiotics for now as above. Continue to monitor. (17) Acute blood loss anemia: (18) Hyponatremia: (19) Thrombocytopenia: (20) Shock liver: Plan 72 year old female with past medical history of congestive diastolic heart failure, chronic intermittent atrial fibrillation post radiofrequency ablation, CAD, hypertension, hypothyroidism, hypopituitarism on chronic steroids, pulmonary hypertension, obstructive sleep apnea who was recently discharged from [facility] after CHEMICAL LABORATORY TESTER-D implantation on Monday.?Patient presented to the ER today with epigastric abdominal cramps. Currently she is being managed for. Assessment: Septic shock: Secondary to ischemic necrosis of large intestine with GI translocation. CT chest abdomen and pelvis: There is subcutaneous emphysema along the left chest wall especially superior and deep to the pacemaker.?Ischemic cecum and ascending colon with pneumatosis in the bowel wall and gas within the adjacent draining veins. Portal venous gas. There is skin thickening and mild edema of the subcutaneous fat of the lower abdominal wall/pannus that may reflect cellulitis. No fluid collection or abscess. Random cortisol:3.71 Blood culture Urine culture Urine Legionella antigen negative Bacterial panel negative Lactic acid:3 Currently on high dose of multiple pressors (Levophed phenylephrine and vasopressin) Currently on stress dose of steroid hydrocortisone 100 mg IV every 6h Empirically on broad-spectrum antibiotic vancomycin and meropenem Ischemic necrosis of large intestine: Given her prior history of prior paroxysmal atrial fibrillation possibility of embolic episode exist. S/p laparoscopy with conversion to exploratory laparotomy and right hemicolectomy Surgery on board. RODRIGUE on CKD: Secondary to septic shock Baseline creatinine 1.2. Admission serum creatinine 2.4 Monitor BMP Intake output charting Continue IV hydration Avoid nephrotoxic Nephrology on board Refractory metabolic acidosis: Secondary to sepsis, RODRIGUE, Currently she is on bicarb drip I am hoping that with improvement in severe metabolic acidosis, pressors requirement should also come down. Monitor serum BMP Monitor ABG Acute postop blood loss anemia: Current plan is to transfuse 2 unit PRBC Monitor H&H Transfuse to keep hemoglobin greater than 7 Likely patient is developing fulminant hepatic failure: Secondary to shock liver: Secondary to severe hypotension secondary to sepsis: Currently AST ALT alk phos is significantly elevated Monitor CMP for now Thrombocytopenia: Possibly secondary to sepsis Monitor for possibly developing DIC, 4T Score: Reviewed Review peripheral blood smear Monitor platelet count for now A-fib with RVR: Currently on amnio drip Continue telemetry monitoring Not a candidate for anticoagulation now History of diabetes: Currently on insulin drip Goal is for tight glucose control (FSG ranging from 160-180 ) Hypothyroidism: Continue levothyroxine hypopituitarism on chronic steroids Currently on hydrocortisone CODE STATUS: Full code DVT prophylaxis on SCD Attestations Medical Necessity Statement*: Needs to be in hospital for management of shock Critical Care Time: The high probability of a clinically significant, sudden or life threatening deterioration of the patient's [] system(s) required my full and direct attention, intervention and personal management. The critical care time is as shown. This time is in addition to time spent performing any reported procedures but includes the following: [x] Data and vital sign review and interpretation [x] Patient assessment, examination and intervention [x] Documentation [x] Medication orders and management Critical Care Time (min): 60 Coding Level of Care Code Acute Code for Chg Fwd Diagnoses Shock R57.9 Adrenal crisis syndrome E27.2 Paroxysmal atrial fibrillation with RVR I48.0 Abdominal pain R10.9 Nausea & vomiting R11.2 Acute kidney injury superimposed on chronic kidney disease N17.9; N18.9 Chronic steroid use Obesity E66.9 Hypothyroid E03.9 Diabetes E11.9 Chronic kidney disease, stage 3a N18.31 Hyperaldosteronism E26.9 Elevated troponin R77.8 Lactic acidosis E87.20 Asymptomatic bacteriuria R82.71 Cardiac resynchronization therapy defibrillator (CHEMICAL LABORATORY TESTER-D) in place Z95.810 Acute blood loss anemia D62 Hyponatremia E87.1 Thrombocytopenia D69.6 Shock liver K72.00
[2022-08-16 13:07] LABS: Glucose Point of Care 335 mg/dL (70-110)
[2022-08-16 13:53] LABS: Basophils # 0.1 10^3/uL (0.0-0.1); Basophils % 0.3 %; Eosinophils # 0.1 10^3/uL (0.0-0.8); Eosinophils % 0.7 %; Hematocrit 26.2 % (37.0-47.0); Hemoglobin 8.2 g/dL (11.5-15.3); Lymphocytes # 0.6 10^3/uL (0.8-4.8); Lymphocytes % 3.1 %; Mean Corpuscular HGB Conc 31.3 g/dL (30.0-36.0); Mean Corpuscular Hemoglobin 24.1 pg (28.0-34.0); Mean Corpuscular Volume 77.1 fl (81-99); Mean Platelet Volume 10.6 fL (7.4-10.4); Monocytes # 1.2 10^3/uL (0.2-0.9); Neutrophils # 16.24 10^3/uL (1.8-7.7); Neutrophils % 83.1 %; Nucleated Red Blood Cells # 0.5 /100WBC; Nucleated Red Blood Cells % 2.6 %; Platelet Count 107 10^3/cmm (130-400); Red Cell Distribution Width 19.6 % (12.1-15.1); White Blood Count 19.6 10^3/uL (4.0-10.0)
[2022-08-16 14:05] LABS: Albumin Level 1.5 g/dL (3.5-5.2); Alkaline Phosphatase 167 U/L (35-105); Blood Urea Nitrogen 46 mg/dL (8-23); Calcium 6.4 mg/dL (8.5-10.5); Carbon Dioxide 16 mmol/L (22-29); Chloride 95 mmol/L (98-107); Globulin 1.9 g/dL (1.3-4.6); Glomerular Filtration Rate 16.7 mL/min (90-130); Glucose 261 mg/dL (65-115); Osmolality Calculated 277 mOsm/kg (285-295); Sodium 123 mmol/L (136-145); Total Protein 3.4 g/dL (6.6-8.7)
[2022-08-16 14:15] LABS: Glucose Point of Care 287 mg/dL (70-110)
[2022-08-16] MEDS: sodium bicarbonate 1 mEq/mL SDV 50mL 50 MEQ IVP (14:28)
[2022-08-16 14:31] LABS: Alanine Aminotransferase 14698 U/L (0-33); Aspartate Amino Transferase 18620 U/L (0-32)
[2022-08-16 14:34] LABS: Slide Review Slide Review Perform
--- NOTE | 2022-08-16 14:35 | PC.NURSE ---
Elvao gtt running at 1 mg/min per Dr. Ramos. Jose grr titrated off this shift.
[2022-08-16 15:04] LABS: Glucose Point of Care 274 mg/dL (70-110)
[2022-08-16 17:04] LABS: Glucose Point of Care 212 mg/dL (70-110)
[2022-08-16 17:09] LABS: Glucose Point of Care 213 mg/dL (70-110)
[2022-08-16 17:26] LABS: INR 1.83 (0.8-1.2)
--- NOTE | 2022-08-16 17:26 | PM.PN ---
Vitals/I&O/Wt Last Vital Signs Temp 99.8 F H 08/16/22 16:30 Pulse 137 H 08/16/22 16:30 Resp 20 H 08/16/22 17:07 BP 133/85 08/16/22 16:30 Pulse Ox 95 08/16/22 17:07 O2 Del Method Mechanical Ventilation 08/16/22 13:55 O2 Flow Rate 4 08/14/22 21:45 FiO2 30 08/16/22 17:07 08/16/22 08/16/22 08/16/22 06:59 14:59 22:59 Intake Total 4327.840 / 16358.632 1521.103 / 1521.103 724.7 / 2245.803 Output Total 200 / 2075 1275 / 1275 Balance 4127.840 / 8821.632 246.103 / 246.103 724.7 / 970.803 Physical Exam Urinary Catheter Management: Zurita: Cath Placed During This Visit: yes Reason for Continuing Indwelling Catheter: Accurate Measurement of Urinary Output in Critically Ill Patients Urinary Catheter Date of Insertion: 08/14/22 Urinary Catheter Time of Insertion: 14:10 Data 08/16/22 13:38 08/16/22 13:38 Micro: Microbiology 08/15/22 08:15 Gram Stain - Final Sputum - Endotracheal Tube Aspirate Sputum Culture - Preliminary Yeast species 08/14/22 14:50 Blood Culture - Preliminary Blood NEGATIVE TO DATE 08/14/22 14:57 Blood Culture - Preliminary Blood NEGATIVE TO DATE A&P Assessment and plan (1) Shock liver: (2) Thrombocytopenia: (3) Hyponatremia: (4) Acute blood loss anemia: (5) Septic shock: (6) Chronic steroid use: Plan Exploratory laparotomy with possible bowel resection and procedures as indicated The risks and benefits of the procedure, including but not limited to, bleeding, infection, scar, numbness, pain, damage to surrounding structures, anastomotic leak, , inability to close the abdomen, need for further surgery, were explained to the patient and her .? Patient is in septic shock and has an extremely poor prognosis.? The patient's is understanding and wishes to proceed to surgery.? Option of nonsurgical management was given.? She will likely require prolonged intubation. Attestations Medical Necessity Statement*: Per hospitalist Coding Level of Care Code Acute Code for Chg Fwd Diagnoses Shock liver K72.00 Thrombocytopenia D69.6 Hyponatremia E87.1 Acute blood loss anemia D62 Septic shock A41.9; R65.21 Chronic steroid use
--- NOTE | 2022-08-16 17:31 | ANES.PREANE2 ---
Pre-Anesthetic Assessment Height/Weight: Height 1.65 m Weight 152 kg Temp Pulse Resp BP Pulse Ox O2 Del Method O2 Flow Rate 99.8 F H 137 H 20 H 133/85 95 Mechanical Ventilation 4 08/16/22 16:30 08/16/22 16:30 08/16/22 17:07 08/16/22 16:30 08/16/22 17:07 08/16/22 13:55 08/14/22 21:45 FiO2 30 08/16/22 17:07 Operation Date: 08/14/22 21:25 Proposed Procedures p Exploratory Laparotomy(Not Applicable) - Abdoul Palomo DO Operation Date: 08/16/22 15:30 Proposed Procedures p Exploratory Laparotomy poss. bowel resection(Not Applicable) - Abdoul Palomo DO s poss. Bowel Resection(Not Applicable) - Abdoul Palomo DO Familial anesthetic complications: none Was Beta Jumana taken within 24 hours: N/A Was Clonidine taken within 24 hours: N/A Social No alcohol and No tobacco Exam In ICU intubated and sedated. Airway Comments: Comments: ETT on vent CV/HEM Anemia, Arrythmia and Hypertension DIC, AICD, thrombocytopenia, shock Chronic Renal Insufficiency ARF Metabolic Diabetes Mellitus, Morbid Obesity and Thyroid Disease Chronic steroid Anesthetic Plan ASA status: 4E Anesthesia: General Medications/Allergies Home Medications Medication Instructions Recorded Confirmed Last Taken Type diabetic supplies, miscellan. #1 ea 01/21/21 08/14/22 Unknown Rx blood-glucose meter,continuous #1 ea 03/04/21 08/14/22 Unknown Rx polyethylene glycol 3350 17 17 g PO DAILY PRN Constipation 05/05/21 08/14/22 01/11/22 History gram/dose oral powder (Miralax) cpap mask and supplies #1 ea 09/14/21 08/14/22 Unknown Rx apixaban 5 mg tablet (Eliquis) 5 mg PO BID 06/02/22 08/14/22 08/13/22 History lactulose 10 gram/15 mL oral 30 ml PO BID PRN Constipation 06/02/22 08/14/22 Unknown History solution blood sugar diagnostic (Pharmacist #50 ea 06/09/22 08/14/22 Unknown Rx Choice Glucose Test Strips) diltiazem HCl 300 mg 300 mg PO QAM #30 caps 06/09/22 08/14/22 08/13/22 Rx capsule,extended release 24 hr levothyroxine 175 mcg tablet 175 mcg PO QAM 90 days #90 tabs 06/09/22 08/14/22 08/13/22 Rx olzujumv-zdxsecmlf-bzaydjyz 3.5 1 drp ophthalmic (eye) Q12H #5 mL 06/09/22 08/14/22 07/09/22 Rx mg/mL-10,000 unit/mL-0.1% eye drops (Maxitrol) potassium chloride 20 mEq 20 meq PO BID PRN low potassium 06/09/22 08/14/22 3 Weeks Ago Rx tablet,extended #30 tabs ~06/16/22 release(part/cryst) (Klor-Con M) pramipexole 0.5 mg tablet (Mirapex) 1 mg PO BEDTIME #30 tabs 06/09/22 08/14/22 08/13/22 Rx neomycin-bacitracn Zn-polymyx 3.5 1 applic topical QID 5 days #14 07/01/22 08/14/22 07/09/22 Rx mg-400 unit-5,000 unit/gram top grams oint (Antibiotic(pzzzq-zigra-djqgp)) liraglutide 0.6 mg/0.1 mL (18 mg/3 1.8 mg SUBCUT QAM 07/07/22 08/14/22 08/13/22 History mL) subcutaneous pen injector (Victoza 3-Nabeel) ciprofloxacin HCl 500 mg tablet 500 mg PO BID #8 tabs 07/11/22 08/14/22 08/13/22 Rx losartan 50 mg tablet 50 mg PO DAILY #30 tabs 07/18/22 08/14/22 08/13/22 Rx oxybutynin chloride 10 mg 10 mg PO DAILY #30 tabs 07/18/22 08/14/22 08/13/22 Rx tablet,extended release 24 hr (Ditropan XL) escitalopram oxalate 10 mg tablet 10 mg PO DAILY #30 tabs 07/22/22 08/14/22 08/13/22 Rx (Lexapro) acarbose 25 mg tablet 25 mg PO TID #90 tabs 07/25/22 08/14/22 08/13/22 Rx insulin glargine 100 unit/mL (3 20 unit (0.2 mL) SUBCUT DAILY 30 07/25/22 08/14/22 Unknown Rx mL) subcutaneous pen (Lantus days #15 mL Solostar U-100 Insulin) ondansetron HCl 8 mg tablet 8 mg PO Q8H PRN Nausea And 07/27/22 08/14/22 Unknown Rx Vomiting #30 tabs spironolactone 25 mg tablet See Rx Instructions .Route 07/28/22 08/14/22 08/13/22 Rx .COMPLEX #120 tabs dexlansoprazole 60 mg 60 mg PO DAILY #30 caps 07/29/22 08/14/22 08/13/22 Rx capsule,biphase delayed release (Dexilant) Novolog FlexPen U-100 Insulin 100 15 unit (0.15 mL) SUBCUT TID 90 08/10/22 08/14/22 Unknown Rx unit/mL (3 mL) subcutaneous days #40.5 mL (insulin aspart U-100) bumetanide 1 mg tablet 2 mg PO BID 08/14/22 08/14/22 08/13/22 History dexamethasone 1 mg tablet 1 mg PO DAILY 08/14/22 08/14/22 08/13/22 History Allergies Allergy/AdvReac Type Severity Reaction Status Date / Time pregabalin Allergy Unknown ADV-Weaknes Verified 08/14/22 13:17 s acetaminophen [From Tylenol] Allergy ALGY-Hives Verified 08/14/22 13:17 amiodarone Allergy vision Verified 08/14/22 13:17 issue amoxicillin [From Augmentin] Allergy Unknown Verified 08/14/22 13:17 azithromycin Allergy ALGY-Anaphy Verified 08/14/22 13:17 laxis benzocaine Allergy ALGY-Hives Verified 08/14/22 13:17 butamben [From Cetacaine] Allergy ALGY-Swell Verified 08/14/22 13:17 Lip/Tongue/Throat clavulanic acid Allergy Unknown Verified 08/14/22 13:17 [From Augmentin] codeine Allergy ALGY-Hives Verified 08/14/22 13:17 empagliflozin Allergy ADR-Itching Verified 08/14/22 13:17 [From Jardiance] fentanyl Allergy ALGY-Anaphy Verified 08/14/22 13:17 laxis hydrocodone [From Vicodin] Allergy ALGY-Hives Verified 08/14/22 13:17 hydromorphone [From Dilaudid] Allergy ADR-Vomitin Verified 08/14/22 13:17 g Iodinated Contrast Media Allergy ALGY-Anaphy Verified 08/14/22 13:17 laxis liothyronine Allergy ADR-Nausea Verified 08/14/22 13:17 meperidine [From Demerol] Allergy Unknown Verified 08/14/22 13:17 metoclopramide [From Reglan] Allergy ADR-Anxiety Verified 08/14/22 13:17 morphine Allergy ALGY-Anaphy Verified 08/14/22 13:17 laxis nitrofurantoin Allergy ALGY-Joint Verified 08/14/22 13:17 [From Macrobid] Pain oxycodone [From Percocet] Allergy ALGY-Hives Verified 08/14/22 13:17 penicillin V Allergy ALGY-Hives Verified 08/14/22 13:17 Penicillins Allergy Unknown Verified 08/14/22 13:17 Phenothiazines Allergy ALGY-Anaphy Verified 08/14/22 13:17 laxis procaine Allergy ALGY-Hives Verified 08/14/22 13:17 prochlorperazine Allergy ALGY-Anaphy Verified 08/14/22 13:17 [From Compazine] laxis semaglutide [From Ozempic] Allergy ADR-Nausea Verified 08/14/22 13:17 Sulfa (Sulfonamide Allergy Unknown Verified 08/14/22 13:17 Antibiotics) tetracaine [From Cetacaine] Allergy ALGY-Swell Verified 08/14/22 13:17 Lip/Tongue/Throat tramadol [From Ultram] Allergy ADR-Nausea Verified 08/14/22 13:17 Current Medications Generic Name Dose Route Start Last Admin Trade Name Freq PRN Reason Stop Dose Admin Al Hydrox/Mg Hydrox/Simethicone 30 ml 08/14/22 17:00 08/14/22 17:16 Fksi-Fak-Iwwnkmdze-Michel 30 Ml Udc PO 30 ml Q4H PRN Administration INDIGESTION Budesonide 0.5 mg 08/14/22 20:00 08/16/22 08:19 Budesonide 0.5 Mg/2 Ml Neb INHALATION 0.5 mg BID.RESPIRATORY RAMIRO Administration Hydrocortisone Sodium Succinate 100 mg 08/15/22 18:15 08/16/22 11:57 Hydrocortisone 100 Mg/2 Ml Sdv IVP 100 mg Q6H RAMIRO Administration Meropenem 1,000 mg/ Sodium 50 mls @ 100 mls/hr 08/14/22 18:00 08/16/22 05:30 Chloride IV Infused Q12H RAMIRO Infusion Protocol Vancomycin/PEG/NADA/Lysine/Water 2,000 mg in 400 mls @ 200 mls/hr 08/14/22 23:00 08/15/22 02:37 Vancocin IV Infused Q48H RAMIRO Infusion Propofol 1,000 mg in 100 mls @ 0 mls/hr 08/14/22 23:30 08/16/22 06:05 Diprivan IV Infused .Q0M RAMIRO Titration Protocol Per Protocol Vasopressin 100 unit/ Sodium 100 mls @ 0 mls/hr 08/15/22 00:45 08/16/22 15:30 Chloride IV 0.09 unit/min .Q0M RAMIRO 5.4 mls/hr Titration Protocol Per Protocol Norepinephrine Bitartrate 8 mg 508 mls @ 0 mls/hr 08/15/22 01:00 08/16/22 14:10 / Dextrose IV 14 mcg/min .Q0M RAMIRO 53.34 mls/hr Titration Protocol Per Protocol Phenylephrine HCl 25 mg/ 252.5 mls @ 0 mls/hr 08/15/22 01:45 08/15/22 15:40 Sodium Chloride IV Infused .Q0M RAMIRO Titration Protocol Per Protocol Midazolam HCl 100 mg/ Sodium 100 mls @ 0 mls/hr 08/15/22 05:30 08/16/22 15:45 Chloride IV 6 mg/hr .Q0M RAMIRO 6 mls/hr Administration Protocol Per Protocol Phenylephrine HCl 50 mg/ 505 mls @ 0 mls/hr 08/15/22 15:00 08/16/22 12:30 Sodium Chloride IV 0 mcg/min .Q0M RAMIRO 0 mls/hr Titration Protocol Per Protocol Insulin Human Regular 250 unit 252.5 mls @ 0 mls/hr 08/15/22 20:15 08/16/22 07:07 / Sodium Chloride IV 49 ml/hr .Q0M RAMIRO 49 mls/hr Titration Protocol Per Protocol Amiodarone HCl 900 mg/ 518 mls @ 17.267 mls/hr 08/15/22 20:15 08/15/22 20:54 Dextrose/ IV Miscellaneous IV 0.5 mg/min Supplies CONT RAMIRO 17.27 mls/hr Administration 0.5 MG/MIN Sodium Bicarbonate 150 meq/ 1,150 mls @ 100 mls/hr 08/16/22 05:35 08/16/22 06:02 Sodium Chloride IV 100 mls/hr .[id number] RAMIRO Administration Albumin Human 25 g in 100 mls @ 60 mls/hr 08/16/22 08:30 08/16/22 15:59 Albumin IV 60 mls/hr Q8H RAMIRO Administration Ipratropium [place] 0.5 mg 08/15/22 08:00 08/16/22 13:58 Ipratropium 0.5 Mg/2.5 Ml Neb INHALATION 0.5 mg Q6H.RESP RAMIRO Administration Levalbuterol HCl 0.63 mg 08/14/22 20:00 08/16/22 13:58 Levalbuterol 0.63 Mg/3 Ml Neb INHALATION 0.63 mg Q6H.RESP RAMIRO Administration Levothyroxine Sodium 175 mcg 08/15/22 06:00 08/16/22 05:51 Levothyroxine 175 Mcg Tablet PO 175 mcg QAM RAMIRO Administration Morphine Sulfate 2 mg 08/14/22 17:15 08/14/22 20:24 Morphine 4 Mg/Ml Sdv 1 Ml IVP 2 mg Q4H PRN Administration SEVERE PAIN Ondansetron HCl 4 mg 08/14/22 17:15 08/14/22 21:39 Ondansetron 2 Mg/Ml Sdv 2 Ml IVP 4 mg Q6H PRN Administration vomiting, or N/V if npo Pantoprazole Sodium 40 mg 08/14/22 17:00 08/16/22 05:12 Pantoprazole 40 Mg Sdv IVP 40 mg Q12H RAMIRO Administration Pramipexole Dihydrochloride 1 mg 08/14/22 21:00 08/15/22 21:53 Pramipexole 0.25 Mg Tablet PO 1 mg BEDTIME RAMIRO Administration Promethazine HCl 12.5 mg 08/14/22 16:58 08/14/22 17:16 Promethazine 25 Mg/Ml Sdv 1 Ml IM 12.5 mg Q6H PRN Administration NAUSEA Sodium Bicarbonate 50 meq 08/16/22 13:15 08/16/22 14:28 Sodium Bicarbonate 1 Meq/Ml Sdv 50ml IVP 50 meq ONCE PRN Administration Sucralfate 1 gm 08/14/22 17:00 08/16/22 11:57 Sucralfate 1 Gm/10 Ml Oral Liq Udc PO 1 gm AC&BEDTIME RAMIRO Administration PFSH Anesthesia Medical History Acute hypercapnic respiratory failure Acute kidney injury superimposed on chronic kidney disease Adrenal insufficiency Anasarca Anemia Asymptomatic bacteriuria Atrial fibrillation Benign essential hypertension with target blood pressure below 140/90 Cardiac resynchronization therapy defibrillator (GAME DESIGNER/CREATIVE DIRECTOR-D) in place Central hypothyroidism CHF (congestive heart failure) Chronic back pain Follows at pain clinic for periodic injections Chronic hyponatremia Chronic kidney disease, stage 3a Colitis COVID-19 (~09/2020) Diastolic heart failure Edema ESBL (extended spectrum beta-lactamase) producing bacteria infection Facet arthritis, degenerative, lumbar spine Fatigue Gastroenteritis History of adrenal insufficiency History of anaphylaxis History of atrial fibrillation Intermittent, has not required long-term anticoagulation or focused treatment History of COVID-19 HTN (hypertension) Hx of atrial fibrillation, no current medication Hyperaldosteronism Hypokalemia Hypomagnesemia Hypophosphatemia 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 Increased nausea and vomiting VINNY-2 gene mutation Lumbar spondylolysis Metabolic acidosis Nausea vomiting and diarrhea OAB (overactive bladder) Obesity Obesity, morbid, BMI 50 or higher Obstructive sleep apnea KP (obstructive sleep apnea) Paroxysmal atrial fibrillation Pituitary macroadenoma with extrasellar extension Polycythemia vera Prediabetes Pulmonary hypertension PVD (peripheral vascular disease) Shock Stasis edema with ulcer and inflammation Steroid dependence Tachycardia Type 2 diabetes mellitus with other diabetic kidney complication Unsteady gait UTI (urinary tract infection) Venous (peripheral) insufficiency Volume overload VT (ventricular tachycardia) Surgical History H/O shoulder surgery History of hysterectomy History of pituitary surgery S/P insertion of spinal cord stimulator Family History Father Cancer pancreatic cancer Sister No problems noted. 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 Current gender identity: Female Data Anesthesia 08/16/22 13:38 08/16/22 13:38 Short CBC 08/15/22 08/15/22 08/15/22 Range/Units 00:56 04:48 15:40 WBC 34.6 H* (4.0-10.0) 10^3/uL Hgb 13.4 12.2 8.6 L (11.5-15.3) g/dL Hct 46.8 41.7 29.8 L (37.0-47.0) % MCV 80.6 L (81-99) fl Plt Count 302 (130-400) 10^3/cmm Neut % (Auto) 84.8 % Neut # (Auto) 29.33 H (1.8-7.7) 10^3/uL 08/15/22 08/16/22 08/16/22 Range/Units 22:15 02:04 07:53 WBC 21.4 H 21.6 H 17.2 H (4.0-10.0) 10^3/uL Hgb 8.1 L 7.7 L 6.5 L* (11.5-15.3) g/dL Hct 28.2 L 26.4 L 22.2 L (37.0-47.0) % MCV 80.3 L 79.8 L 79.0 L (81-99) fl Plt Count 196 D 181 121 L D (130-400) 10^3/cmm Neut % (Auto) % Neut # (Auto) (1.8-7.7) 10^3/uL 08/16/22 Range/Units 13:38 WBC 19.6 H (4.0-10.0) 10^3/uL Hgb 8.2 L (11.5-15.3) g/dL Hct 26.2 L (37.0-47.0) % MCV 77.1 L (81-99) fl Plt Count 107 L (130-400) 10^3/cmm Neut % (Auto) 83.1 % Neut # (Auto) 16.24 H (1.8-7.7) 10^3/uL BMP 08/15/22 08/15/22 08/15/22 00:56 11:54 20:47 Sodium 126 L 121 L 122 L Potassium 5.6 H 5.3 H 6.0 H Chloride 94 L 89 L 91 L Carbon Dioxide 17 L 15 L 9 L BUN 43 H 35 H 43 H Creatinine 2.8 H 2.0 H 2.8 H Glucose 362 H 631 H* 580 H* Calcium 8.6 6.9 L 6.7 L 08/15/22 08/16/22 08/16/22 22:15 02:04 05:55 Sodium 122 L 121 L 121 L Potassium 5.9 H 5.3 H 4.8 Chloride 91 L 91 L 91 L Carbon Dioxide 8 L* 10 L 13 L BUN 44 H 45 H 46 H Creatinine 2.9 H 3.3 H 3.0 H Glucose 575 H* 548 H* 498 H Calcium 6.6 L 6.9 L 6.6 L 08/16/22 08/16/22 08/16/22 09:55 10:32 13:38 Sodium Cancelled 120 L 123 L Potassium Cancelled 4.2 4.0 Chloride Cancelled 91 L 95 L Carbon Dioxide Cancelled 15 L 16 L BUN Cancelled 47 H 46 H Creatinine Cancelled 3.2 H 2.8 H Glucose Cancelled 360 H 261 H Calcium Cancelled 6.6 L 6.4 L Cardiac Enzymes 08/14/22 Range/Units 00:56 Troponin T Hi Sens 6Hr 57.80 H (0-10) ng/L Troponin T Hi Sens 6Hr Delta -14.2 L (0-12) ng/L Liver Function 08/15/22 08/15/22 08/16/22 Range/Units 00:56 22:15 02:04 Total Bilirubin 1.0 0.7 0.7 (0.15-1.2) mg/dL AST 93 H 71618 H 19531 H (0-32) U/L ALT 126 H 07727 H 43935 H (0-33) U/L Alkaline Phosphatase 108 H 110 H 143 H (35-105) U/L Albumin 2.9 L 1.8 L 1.8 L (3.5-5.2) g/dL 08/16/22 08/16/22 08/16/22 Range/Units 05:55 09:55 10:32 Total Bilirubin 0.6 Cancelled 0.9 (0.15-1.2) mg/dL AST 99207 H Cancelled 71434 H (0-32) U/L ALT 32885 H Cancelled 89442 H (0-33) U/L Alkaline Phosphatase 172 H Cancelled 167 H (35-105) U/L Albumin 1.7 L Cancelled 1.6 L (3.5-5.2) g/dL 08/16/22 Range/Units 13:38 Total Bilirubin 1.0 (0.15-1.2) mg/dL AST 93488 H (0-32) U/L ALT 24875 H (0-33) U/L Alkaline Phosphatase 167 H (35-105) U/L Albumin 1.5 L (3.5-5.2) g/dL Blood Bank 08/15/22 04:48 Blood Type O Positive Rho(D) Type Positive Antibody Screen Negative Coa 08/15/22 08/16/22 22:15 16:46 PT 48.10 H INR 4.95 H 1.83 H APTT 42.6 H Fibrinogen 554 H Fibrin Degrad Products Pos, >=40 H D-Dimer 2.44 H ABG 08/15/22 08/15/22 08/15/22 00:10 04:00 11:30 Specimen Type Arterial Arterial Arterial Sample Site Radial, right Radial, right Not specified ABG pH 7.22 L 7.23 L 7.38 ABG pCO2 38.5 41.6 27.3 L ABG pO2 90.5 79.2 L 96.1 ABG HCO3 15.8 L 17.5 L 16.3 L ABG O2 Saturation 97.0 ABG Base Excess -11.2 L -9.6 L -7.5 L A-a O2 Gradient 24.6 H O2 Delivery Device Vent Vent Vent FiO2 60.0 55.0 45.0 Tidal Volume 0.45 0.45 0.45 PEEP 5.0 5.0 6.0 08/16/22 08:10 Specimen Type Arterial Sample Site Not specified ABG pH 7.35 ABG pCO2 25.5 L ABG pO2 104.0 H ABG HCO3 14.1 L ABG O2 Saturation 98.6 ABG Base Excess -10.3 L A-a O2 Gradient 19.1 H O2 Delivery Device Vent FiO2 40.0 Tidal Volume 0.45 PEEP 6.0 Microbiology 08/15/22 08:15 Gram Stain - Final Sputum - Endotracheal Tube Aspirate Sputum Culture - Preliminary Yeast species 08/14/22 14:50 Blood Culture - Preliminary Blood NEGATIVE TO DATE 08/14/22 14:57 Blood Culture - Preliminary Blood NEGATIVE TO DATE Cardiac Studies: Echocardiogram 01/04/22 Echocardiogram Limited Views 06/02/22 Transesophageal Echocardiogram 08/04/21 Cardiac Event Monitor 01/05/21
[2022-08-16 17:48] LABS: Hematocrit 23.3 % (37.0-47.0); Hemoglobin 7.4 g/dL (11.5-15.3); Mean Corpuscular HGB Conc 31.8 g/dL (30.0-36.0); Mean Corpuscular Hemoglobin 24.3 pg (28.0-34.0); Mean Corpuscular Volume 76.4 fl (81-99); Mean Platelet Volume 10.3 fL (7.4-10.4); Platelet Count 73 10^3/cmm (130-400); Red Blood Count 3.05 10^6/uL (4.1-5.3); Red Cell Distribution Width 19.1 % (12.1-15.1); White Blood Count 15.9 10^3/uL (4.0-10.0)
--- NOTE | 2022-08-16 17:48 | PC.NURSE ---
Pt taken to surgery by staff at 1730.
[2022-08-16 17:49] LABS: Absolute Segmented Neutrophil 12.1 10/cmm (1.6-7.1); Segmented Neutrophils 76 %; Total Cells Counted 100 (0-100)
[2022-08-16 17:50] LABS: Absolute Neutrophil 12.9 10^3/cmm (1.4-6.5); Band Neutrophils Absolute 0.8 10^3/cmm (0.0-1.2); Eosinophils 0 %; Lymphocytes 2 %; Platelet Estimate Decreased (Normal)
[2022-08-16 17:53] LABS: Corrected White Blood Count 14.9 10^3/cmm (4.8-10.8); Monocytes Absolute 0.6 10^3/cmm (0.1-0.6)
--- NOTE | 2022-08-16 18:58 | PM.OP ---
Operative Report Date of procedure: August 16, 2022 Pre-op diagnosis: Open abdomen Septic shock with multiorgan failure DIC Post-op diagnosis: Transverse colon Necrotic ileum Open abdomen Septic shock with multiorgan failure DIC Procedure done: Exploratory laparotomy with partial colectomy and partial small bowel resection Placement of ABThera wound VAC Implants: ABThera wound VAC Specimens removed/disposition: Partial colectomy Partial small bowel resection Surgeon: Dr. Abdoul Palomo, Anesthesia: General Estimated blood loss (mL): 50 Complications: None apparent Findings: Necrotic transverse colon and proximal ileum Brief History: This is a very pleasant 72-year-old female who previously underwent an exploratory laparotomy with right hemicolectomy for ischemic bowel. She was left in discontinuity and brought back 48 hours later. Exploratory laparotomy possible bowel resection was indicated. The risk and benefits were explained to the and understood. Procedure: Patient was brought to the operating room and placed on the OR table in supine position. Patient was already intubated and general anesthesia was achieved by the department of anesthesia. A timeout was performed. All present were in agreement. The abdomen was inspected prepped and draped in usual sterile fashion. The ABThera wound VAC was removed. There is obvious necrotic transverse colon. A window was made in the mesocolon and a KIM stapler 100 mm blue load was used to transect the transverse colon at the splenic flexure. The Enseal was then used to ligate the mesocolon and the gastrocolic ligament. The specimen was passed off. There was minimal stool contamination at this time as necrotic bowel fell apart. There was an area of necrotic ileum approximately 8 to 9 inches proximal to the previous resection. A window was made in the mesentery with cautery just proximal to this location. The KIM stapler 100 mm blue load was used to transect the ileum at this point. The Enseal was then used to ligate the mesentery and a portion of ileum was passed off approximately 6-7 inches of colon were resected and 8-9 inches of small bowel. There was oozing from raw surfaces throughout the abdomen. Patient was in DIC and given 6 units of FFP and 2 units of PRBCs preoperatively. She received another 2 units of FFP and 2 units of PRBCs intraoperatively. A pool of platelets also began infusing. I ran the bowel and no further areas of necrosis were found. The rest of the bowel was pink and healthy appearing. I irrigated the abdomen with 2 L of warm saline. The ABThera wound VAC was then replaced. Patient tolerated procedure well.
--- NOTE | 2022-08-16 19:00 | ANE.PACU2 ---
Inpatient post-anesthesia follow up: Airway intact: Yes (ETT) Vital signs: Temperature 99.8 F Pulse Rate 129 Respiratory Rate 20 Blood Pressure 133/85 Pulse Oximetry 95 Oxygen Delivery Me thod [ Room Air Current Rate & Del zelda] Oxygen Delivery Me thod Mechanical Ventila tion Oxygen Flow Rate 4 Fraction of Inspir ed Oxygen 30 Hydration adequate: Yes Nausea and vomiting: No Pain level: Other Mental status: Altered (Sedated) Additional Comments: Stable, intubated and sedated to ICU.
[2022-08-16 19:45] LABS: Glucose Point of Care 229 mg/dL (70-110)
[2022-08-16 19:45] LABS: Glucose Point of Care 232 mg/dL (70-110)
[2022-08-16 20:02] LABS: Mean Corpuscular HGB Conc 31.5 g/dL (30.0-36.0); Mean Corpuscular Hemoglobin 24.5 pg (28.0-34.0); Mean Corpuscular Volume 77.8 fl (81-99); Platelet Count 30 10^3/cmm (130-400); Red Blood Count 2.12 10^6/uL (4.1-5.3); White Blood Count 9.9 10^3/uL (4.0-10.0)
[2022-08-16] MEDS: sodium chloride 0.9% 100 mL Bag 50 ML IV ×2 (20:10→23:04)
[2022-08-16 20:17] LABS: Albumin Level 3.2 g/dL (3.5-5.2); Alkaline Phosphatase 130 U/L (35-105); Anion Gap 19.4 (5-19); Blood Urea Nitrogen 46 mg/dL (8-23); Calcium 6.8 mg/dL (8.5-10.5); Carbon Dioxide 22 mmol/L (22-29); Chloride 91 mmol/L (98-107); Globulin 1.6 g/dL (1.3-4.6); Glucose 197 mg/dL (65-115); Osmolality Calculated 283 mOsm/kg (285-295); Potassium 4.4 mmol/L (3.5-5.1); Sodium 128 mmol/L (136-145); Total Bilirubin 2.6 mg/dL (0.15-1.2); Total Protein 4.8 g/dL (6.6-8.7)
--- NOTE | 2022-08-16 20:18 | PC.NURSE ---
Transfusions started and completed in surgery.
--- NOTE | 2022-08-16 20:34 | PC.NURSE ---
Addendum entered by Summer Martinez RN 08/17/22 01:43: @2044 new order for Q6HR accu check per Dr. Esqueda Original Note: Back from Surgery: Pt arrive to ICU 7 from surgery @1659 08/16/22. Continuous monitoring continued. Insulin drip and sodium bicarb drip not running on arrival to unit. Contacted Dr. Esqueda, new order for stat CBC, CMP prior to restarting the insulin and sodium bicarb drips. Contacted Dr. Esqueda after CMP resulted @20:26. New order to D/C insulin drip and sodium bicarb drip.
[2022-08-16 20:38] LABS: Hematocrit 16.5 % (37.0-47.0); Hemoglobin 5.2 g/dL (11.5-15.3)
[2022-08-16 20:51] LABS: Alanine Aminotransferase 7663 U/L (0-33); Aspartate Amino Transferase 8687 U/L (0-32)
[2022-08-16 20:52] LABS: Total Cells Counted 100 (0-100)
[2022-08-16 20:54] LABS: Absolute Segmented Neutrophil 7.6 10/cmm (1.6-7.1); Band Neutrophils Absolute 0.3 10^3/cmm (0.0-1.2); Eosinophils 0 %; Lymphocytes 3 %; Monocytes Absolute 0.5 10^3/cmm (0.1-0.6); Segmented Neutrophils 77 %
[2022-08-16 20:55] LABS: Absolute Neutrophil 7.9 10^3/cmm (1.4-6.5); Corrected White Blood Count 9.4 10^3/cmm (4.8-10.8); Platelet Estimate Decreased (Normal)
[2022-08-16] MEDS: norepinephrine 8 MG in dextrose 5 % 500 ML 45.72 MG IV (21:43)
[2022-08-16] MEDS: pramipexole 0.25 mg Tablet 1 MG PO (22:22)
[2022-08-16] MEDS: vancomycin 2,000 MG/400 ML PIGGYBACK 200 MG IV (23:08)
[2022-08-17] VITALS (97 sets, daily range): BP systolic 94–150; BP diastolic 53–80; PULSE 116–139; RESP 14–21; TEMP 36.4–37.4; O2SAT 89–98
[2022-08-17] MEDS: hydrocortisone 100 mg/2 mL SDV IVP ×4 (00:39→17:50)
[2022-08-17 00:45] LABS: Glucose Point of Care 286 mg/dL (70-110)
[2022-08-17] MEDS: albumin 25 G/100 ML BAG 60 G IV ×3 (00:49→17:50)
[2022-08-17] MEDS: levalbuterol 0.63 mg/3 mL Neb INHALATION ×4 (01:07→19:34)
[2022-08-17] MEDS: ipratropium 0.5 mg/2.5 mL Neb INHALATION ×4 (01:07→19:34)
[2022-08-17 01:42] LABS: Hemoglobin 7.7 g/dL (11.5-15.3); Mean Corpuscular HGB Conc 32.1 g/dL (30.0-36.0); Mean Corpuscular Hemoglobin 25.3 pg (28.0-34.0); Mean Corpuscular Volume 78.9 fl (81-99); Mean Platelet Volume 9.2 fL (7.4-10.4); Platelet Count 30 10^3/cmm (130-400); Red Blood Count 3.04 10^6/uL (4.1-5.3); Red Cell Distribution Width 17.7 % (12.1-15.1); White Blood Count 11.2 10^3/uL (4.0-10.0)
[2022-08-17 02:05] LABS: Albumin Level 3.1 g/dL (3.5-5.2); Alkaline Phosphatase 131 U/L (35-105); Anion Gap 20.5 (5-19); Blood Urea Nitrogen 48 mg/dL (8-23); Calcium 7.3 mg/dL (8.5-10.5); Carbon Dioxide 19 mmol/L (22-29); Chloride 91 mmol/L (98-107); Globulin 1.7 g/dL (1.3-4.6); Glomerular Filtration Rate 16.7 mL/min (90-130); Glucose 293 mg/dL (65-115); Osmolality Calculated 285 mOsm/kg (285-295); Potassium 4.5 mmol/L (3.5-5.1); Sodium 126 mmol/L (136-145); Total Bilirubin 4.2 mg/dL (0.15-1.2); Total Protein 4.8 g/dL (6.6-8.7)
[2022-08-17 02:24] LABS: Slide Review Slide Review Perform
[2022-08-17 02:26] LABS: Alanine Aminotransferase 6829 U/L (0-33); Aspartate Amino Transferase 7166 U/L (0-32)
[2022-08-17 04:10] LABS: Glucose Point of Care 368 mg/dL (70-110)
[2022-08-17] MEDS: insulin lispro 100 unit/1 mL 8 UNIT SUBCUT (04:10)
[2022-08-17] MEDS: pantoprazole 40 mg SDV IVP ×2 (04:11→17:51)
[2022-08-17 05:59] LABS: Hematocrit 21.6 % (37.0-47.0); Hemoglobin 6.9 g/dL (11.5-15.3)
[2022-08-17] MEDS: sucralfate 1 gm/10 mL Oral Liq UDC PO (06:09)
[2022-08-17] MEDS: levothyroxine 175 mcg Tablet PO (06:10)
[2022-08-17 06:12] LABS: INR 1.81 (0.8-1.2)
[2022-08-17 06:13] LABS: Fibrinogen 290 mg/dL (174-498); Partial Thromboplastin Time 30.1 SECONDS (23.9-36.7)
[2022-08-17 06:15] LABS: Albumin Level 3.1 g/dL (3.5-5.2); Alkaline Phosphatase 115 U/L (35-105); Blood Urea Nitrogen 50 mg/dL (8-23); Calcium 7.3 mg/dL (8.5-10.5); Carbon Dioxide 21 mmol/L (22-29); Chloride 91 mmol/L (98-107); Globulin 1.3 g/dL (1.3-4.6); Glomerular Filtration Rate 17.4 mL/min (90-130); Glucose 307 mg/dL (65-115); Osmolality Calculated 287 mOsm/kg (285-295); Sodium 126 mmol/L (136-145); Total Bilirubin 5.1 mg/dL (0.15-1.2); Total Protein 4.4 g/dL (6.6-8.7)
[2022-08-17] MEDS: HYDROmorphone 1 mg/mL INJ 1 mL IVP ×3 (06:25→21:34)
[2022-08-17] MEDS: meropenem 1,000 MG in sodium chloride 0.9% (plus) 50 ML 100 MG IV ×2 (06:31→17:51)
[2022-08-17 06:38] LABS: Alanine Aminotransferase 5802 U/L (0-33); Aspartate Amino Transferase 4894 U/L (0-32)
[2022-08-17 06:42] LABS: Glucose Point of Care 363 mg/dL (70-110)
[2022-08-17] MEDS: budesonide 0.5 mg/2 mL Neb INHALATION ×2 (08:06→19:34)
--- NOTE | 2022-08-17 08:44 | US_ITS ---
WS: [id number] RIGHT UPPER QUADRANT ULTRASOUND HISTORY: transaminitis, hyperbilirubinemia. COMPARISON: Gallbladder ultrasound 05/06/2022 Liver: 17.8 cm in length. Liver is enlarged and very dense. Very limited evaluation of the liver. Portal Vein: Portal vein is very poorly visualized. Gallbladder: Normally distended gallbladder with a stone. No definite pericholecystic fluid. No gallb ladder wall thickening by ultrasound. CBD: 0.5 cm Pancreas: Obscured by bowel gas. Right kidney: 12.1 cm in length. Very limited evaluation. No obvious hydronephrosis. Aorta and IVC: Limited. No ascites. US/US abdomen limited [id number] IMPRESSION: 1. Cholelithiasis. No evidence for acute cholecystitis but limited evaluation. 2. Enlarged fatty liver. Very limited evaluation.
--- NOTE | 2022-08-17 08:44 | PM.PN ---
Subjective Subjective: on levophed remains intubated Medications: Reviewed: Yes Vitals/I&O/Wt Last Vital Signs Temp 98.4 F 08/17/22 07:00 Pulse 133 H 08/17/22 08:15 Resp 14 08/17/22 08:00 BP 98/58 08/17/22 08:00 Pulse Ox 92 08/17/22 08:15 O2 Del Method Mechanical Ventilation 08/17/22 08:00 O2 Flow Rate 4 08/14/22 21:45 FiO2 55 08/17/22 08:00 08/16/22 08/17/22 08/17/22 22:59 06:59 14:59 Intake Total 5590.029 / 7111.132 1393.484 / 8504.616 50 / 50 Output Total 1400 / 2675 2950 / 5625 Balance 4190.029 / 4436.132 -1556.516 / 2879.616 50 / 50 Physical Exam Narrative: intubated sedated Urinary Catheter Management: Zur[place]: Cath Placed During This Visit: yes Reason for Continuing Indwelling Catheter: Accurate Measurement of Urinary Output in Critically Ill Patients Urinary Catheter Date of Insertion: 08/14/22 Urinary Catheter Time of Insertion: 14:10 Data 08/17/22 05:22 08/17/22 05:22 Micro: Microbiology 08/15/22 08:15 Gram Stain - Final Sputum - Endotracheal Tube Aspirate Sputum Culture - Preliminary Yeast species A&P Assessment and plan (1) Acute kidney injury superimposed on chronic kidney disease: (2) Lactic acidosis: Plan 1. RODRIGUE: Secondary to sepsis, nonoliguric, UOP improved , Cr improved decreased pressor requirement 2. Severe metabolic acidosis: Secondary to lactic acidosis and RODRIGUE. s/p bicarbonate drip, improved 3. Hyponatremia: Has chronic hyponatremia with sodium in low 130s range, from probably CHF , Na was down to 121 , now improved to 126 , 4. Septic shock secondary to ischemic bowel: Status post right hemicolectomy, general surgery following 5. History of coronary artery disease, CHF, A-fib,, KP Patient evaluated using audiovisual cart. Time spent 45 minutes Attestations Medical Necessity Statement*: per medicine Coding Level of Care Code Acute Code for Chg Fwd Diagnoses Acute kidney injury superimposed on chronic kidney disease N17.9; N18.9 Lactic acidosis E87.20
[2022-08-17 09:38] LABS: Hematocrit 22.2 % (37.0-47.0); Hemoglobin 7.1 g/dL (11.5-15.3)
[2022-08-17 10:08] LABS: Albumin Level 4.5 g/dL (3.5-5.2); Alkaline Phosphatase 115 U/L (35-105); Blood Urea Nitrogen 50 mg/dL (8-23); Calcium 6.7 mg/dL (8.5-10.5); Carbon Dioxide 20 mmol/L (22-29); Chloride 90 mmol/L (98-107); Globulin 1.2 g/dL (1.3-4.6); Glomerular Filtration Rate 18.2 mL/min (90-130); Glucose 306 mg/dL (65-115); Osmolality Calculated 291 mOsm/kg (285-295); Sodium 128 mmol/L (136-145); Total Bilirubin 4.8 mg/dL (0.15-1.2); Total Protein 5.7 g/dL (6.6-8.7)
[2022-08-17 10:41] LABS: Alanine Aminotransferase 4978 U/L (0-33)
[2022-08-17 10:44] LABS: Aspartate Amino Transferase 3114 U/L (0-32)
--- NOTE | 2022-08-17 10:49 | PC.SOCIAL ---
IMM update IMM updated with patient's and bedside since patient is intubated at this time. Copy Pg 2 provided. Verbalized an understanding. Initialled, dated, timed, and placed in chart.
[2022-08-17] MEDS: norepinephrine 8 MG in dextrose 5 % 500 ML 38.1 MG IV (12:00)
[2022-08-17 12:04] LABS: Glucose Point of Care 384 mg/dL (70-110)
--- NOTE | 2022-08-17 12:16 | P.PN_ITS ---
Subjective Subjective: Patient was seen and examined, she continues to be critically ill, though she has shown improvement, since yesterday, pressors requirement has significantly came down, currently she is on Levophed only, currently she is also required multiple units of FFP, platelet, as well as PRBC transfusion, given significant thrombocytopenia, significant anemia. H&H and platelet count is being monitored, blood products are being replaced accordingly, oozing of blood from open abdomen has continued. Patient is currently making good urine, serum creatinine is trending down, AST ALT has also improved, though T. bili has gone up, direct indirect bilirubin differentiation pending. Medications: Medication Review Details: 3Generic Name Dose Route Start Last Admin Trade Name Freq PRN Reason Stop Dose Admin Al Hydrox/Mg [place] x/Simethicone 30 ml 08/14/22 17:00 08/14/22 17:16 [id number] de-Michel 30 Ml Udc PO 30 ml Q4H PRN Administration INDIGESTION Budesonide 0.5 mg 08/14/22 20:00 08/17/22 08:06 Budesonide 0.5 M g/2 Ml Neb INHALATION 0.5 mg BID.RESPIRATORY S CH Administration Hydrocortisone Sod ium Succinate 100 mg 08/15/22 18:15 08/17/22 06:15 Hydrocortisone 1 00 Mg/2 Ml Sdv IVP 100 mg Q6H RAMIRO Administration Hydromorphone HCl 1 mg 08/14/22 23:32 08/17/22 08:46 Hydromorphone 1 Mg/Ml Inj 1 Ml IVP 1 mg Q2H PRN Administration PAIN Meropenem 1,000 mg / Sodium 50 mls @ 100 mls/ hr 08/14/22 18:00 08/17/22 07:03 Chloride IV Infused Q12H RAMIRO Infusion Protocol Vancomycin/PEG/NAD A/Lysine/Water 2,000 mg in 400 m ls @ 200 mls/hr 08/14/22 23:00 08/17/22 01:17 Vancocin IV Infused Q48H RAMIRO Infusion Propofol 1,000 mg in 100 m ls @ 0 mls/hr 08/14/22 23:30 08/16/22 06:05 Diprivan IV Infused .Q0M RAMIRO Titration Protocol Per Protocol Vasopressin 100 un it/ Sodium 100 mls @ 0 mls/h r 08/15/22 00:45 08/17/22 02:12 Chloride IV 0 unit/min .Q0M RAMIRO 0 mls/hr Titration Protocol Per Protocol Norepinephrine Bit artrate 8 mg 508 mls @ 0 mls/h r 08/15/22 01:00 08/17/22 09:09 / Dextrose IV 12 mcg/min .Q0M RAMIRO 45.72 mls/hr Titration Protocol Per Protocol Phenylephrine HCl 25 mg/ 252.5 mls @ 0 mls /hr 08/15/22 01:45 08/15/22 15:40 Sodium Chloride IV Infused .Q0M RAMIRO Titration Protocol Per Protocol Midazolam HCl 100 mg/ Sodium 100 mls @ 0 mls/h r 08/15/22 05:30 08/17/22 09:08 Chloride IV 4 mg/hr .Q0M RAMIRO 4 mls/hr Titration Protocol Per Protocol Phenylephrine HCl 50 mg/ 505 mls @ 0 mls/h r 08/15/22 15:00 08/16/22 12:30 Sodium Chloride IV 0 mcg/min .Q0M RAMIRO 0 mls/hr Titration Protocol Per Protocol Albumin Human 25 g in 100 mls @ 60 mls/hr 08/16/22 08:30 08/17/22 08:46 Albumin IV 60 mls/hr Q8H RAMIRO Administration Amiodarone HCl 900 mg/ 518 mls @ 34.533 mls/hr 08/16/22 21:03 08/17/22 10:08 Dextrose/ IV Misce llaneous IV 1 mg/min Supplies CONT RAMIRO 34.53 mls/hr Administration 1 MG/MIN Ipratropium Bromid e 0.5 mg 08/15/22 08:00 08/17/22 08:06 Ipratropium 0.5 Mg/2.5 Ml Neb INHALATION 0.5 mg Q6H.RESP RAMIRO Administration Levalbuterol HCl 0.63 mg 08/14/22 20:00 08/17/22 08:07 Levalbuterol 0.6 3 Mg/3 Ml Neb INHALATION 0.63 mg Q6H.RESP RAMIRO Administration Levothyroxine Sodi um 175 mcg 08/15/22 06:00 08/17/22 06:10 Levothyroxine 17 5 Mcg Tablet PO 175 mcg QAM RAMIRO Administration Morphine Sulfate 2 mg 08/14/22 17:15 08/14/22 20:24 Morphine 4 Mg/Ml Sdv 1 Ml IVP 2 mg Q4H PRN Administration SEVERE PAIN Ondansetron HCl 4 mg 08/14/22 17:15 08/14/22 21:39 Ondansetron 2 Mg /Ml Sdv 2 Ml IVP 4 mg Q6H PRN Administration vomiting, or N/V if npo Pantoprazole Sodiu m 40 mg 08/14/22 17:00 08/17/22 04:11 Pantoprazole 40 Mg Sdv IVP 40 mg Q12H RAMIRO Administration Pramipexole Dihydr ochloride 1 mg 08/14/22 21:00 08/16/22 22:22 Pramipexole 0.25 Mg Tablet PO 1 mg BEDTIME RAMIRO Administration Promethazine HCl 12.5 mg 08/14/22 16:58 08/14/22 17:16 Promethazine 25 Mg/Ml Sdv 1 Ml IM 12.5 mg Q6H PRN Administration NAUSEA Sodium Bicarbonate 50 meq 08/16/22 13:15 08/16/22 14:28 Sodium Bicarbona te 1 Meq/Ml Sdv 50 ml IVP 50 meq ONCE PRN Administration Sucralfate 1 gm 08/14/22 17:00 08/17/22 06:09 Sucralfate 1 Gm/ 10 Ml Oral Liq Udc PO 1 gm AC&BEDTIME RAMIRO Administration Vitals/I&O/Wt Last Vital Signs Temp 98.4 F 08/17/22 07:00 Pulse 133 H 08/17/22 08:15 Resp 14 08/17/22 11:00 BP 98/58 08/17/22 08:00 Pulse Ox 97 08/17/22 11:00 O2 Del Method Mechanical Ventilation 08/17/22 08:00 O2 Flow Rate 4 08/14/22 21:45 FiO2 50 08/17/22 11:00 08/16/22 08/17/22 08/17/22 22:59 06:59 14:59 Intake Total 5590.029 / 7111.132 1393.484 / 8504.616 677.334 / 677.334 Output Total 1400 / 2675 2950 / 5625 500 / 500 Balance 4190.029 / 4436.132 -1556.516 / 2879.616 177.334 / 177.334 Physical Exam HENMT: COMMON NORMALS: normocephalic and atraumatic HEAD & SCALP: normoce phalic and atraumatic Resp: COMMON NORMALS: clear to auscultation bilaterally AUSCULTATION: clear to auscultation bilaterally Cardio: COMMON NORMALS: regular rate, regular rhythm, S1 normal heart sound present, S2 normal heart sound present, No gallops present (Cardio), No murmurs present (Cardio), No rub (Cardio) and Peripheral pulses 2+ throughout RATE: regular rate RHYTHM: regular rhythm HEART SOUNDS: S1 normal heart sound present and S2 normal heart sound present PERIPHERAL PULSES: Peripheral pulses 2+ throughout GI: OTHER: wound vac in place Extremity: COMMON NORMALS: no clubbing, cyanosis or edema and no pedal edema Urinary Catheter Management: Zurita: Cath Placed During This Visit: yes Reason for Continuing Indwelling Catheter: Accurate Measurement of Urinary Output in Critically Ill Patients Urinary Catheter Date of Insertion: 08/14/22 Urinary Catheter Time of Insertion: 14:10 Data 08/17/22 16:56 08/17/22 16:56 Micro: Microbiology 08/15/22 08:15 Gram Stain - Final Sputum - Endotracheal Tube Aspirate Sputum Culture - Final Kathleen albicans A&P Assessment and plan (1) Shock: (2) Adrenal crisis syndrome: (3) Paroxysmal atrial fibrillation with RVR: (4) Abdominal pain: (5) Nausea & vomiting: (6) Acute kidney injury superimposed on chronic kidney disease: (7) Chronic steroid use: (8) Obesity: (9) Hypothyroid: (10) Diabetes: Stop oral hypoglycemics Suicide insulin moderate dose protocol before meals and at bedtime. (11) Chronic kidney disease, stage 3a: (12) Hyperaldosteronism: (13) Elevated troponin: (14) Lactic acidosis: (15) Asymptomatic bacteriuria: (16) Cardiac resynchronization therapy defibrillator ([employer]ESSION[employer]-D) in place: Placed on 08/08 at outside hospital. Will request documents from outpatient global technical writer Dr. Moody from [place]. Empiric antibiotics for now as above. Continue to monitor. 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 Currently she is being managed for. Assessment: Septic shock: Secondary to ischemic necrosis of large intestine with GI translocation. CT chest abdomen and pelvis: There is subcutaneous emphysema along the left chest wall especially superior and deep to the pacemaker.?Ischemic cecum and ascending colon with pneumatosis in the bowel wall and gas within the adjacent draining veins. Portal venous gas. There is skin thickening and mild edema of the subcutaneous fat of the lower abdominal wall/pannus that may reflect cellulitis. No fluid collection or abscess. Random cortisol:3.71 Blood culture: NTD Urine culture: Urine Legionella antigen negative Bacterial panel negative Lactic acid:3 Was on high dose of multiple pressors (Levophed phenylephrine and vasopressin),Currently on levophed. Currently on stress dose of steroid hydrocortisone 100 mg IV every 6h Empirically on broad-spectrum antibiotic vancomycin and meropenem Ischemic necrosis of large intestine: Given her prior history of prior paroxysmal atrial fibrillation possibility of embolic episode exist. S/p laparoscopy with conversion to exploratory laparotomy and right hemicolectomy Surgery on board. RODRIGUE on CKD: Secondary to septic shock Baseline creatinine 1.2. Admission serum creatinine 2.4 Monitor BMP Intake output charting Continue IV hydration Avoid nephrotoxic Nephrology on board Refractory metabolic acidosis: Secondary to sepsis, RODRIGUE, Was on bicarb drip I am hoping that with improvement in severe metabolic acidosis, pressors requirement should also come down. Monitor serum BMP Monitor ABG Acute Anemia: S/P 4 unit PRBC Monitor H&H Transfuse to keep hemoglobin greater than 7 Likely patient is developing fulminant hepatic failure: Secondary to shock liver: Secondary to severe hypotension secondary to sepsis: ULT Abdomen: Has shown cholelithiasis without evidence of acute cholecystitis, though it is a limited evaluation, hepatomegaly. Currentlly AST ALT alk phos is significantly elevated: AST ALT has trended down since yesterday, ALP appears to be peaking. Monitor CMP for now Hyper bilirubinemia: Could be part of shock liver. Acalculous cholecystitis is unlikely. Follow total and direct bilirubin. Thrombocytopenia: Possibly secondary to sepsis Monitor for possibly developing DIC 4T Score: Reviewed Review peripheral blood smear S/P 3 U Platelets S/P 6 FFP A-fib with RVR: Currently on amnio drip Continue telemetry monitoring Not a candidate for anticoagulation now History of diabetes: Was on insulin drip, currently on medium dose sliding scale insulin Goal is for tight glucose control (FSG ranging from 160-180 ) Hypothyroidism: Continue levothyroxine hypopituitarism on chronic steroids Currently on hydrocortisone CODE STATUS: Full code DVT prophylaxis on SCD Attestations 2 Medical Necessity Statement*: Needs to be in hospital for management of shock. Critical Care Time: The high probability of a clinically significant, sudden or life threatening deterioration of the patient's [] system(s) required my full and direct attention, intervention and personal management. The critical care time is as shown. This time is in addition to time spent performing any reported procedures but includes the following: [x] Data and vital sign review and interpretation [x] Patient assessment, examination and intervention [x] Documentation [x] Medication orders and management Critical Care Time (min): 45 Coding Level of Care Code Acute Code for Chg Fwd Diagnoses Shock R57.9 Adrenal crisis syndrome E27.2 Paroxysmal atrial fibrillation with RVR I48.0 Abdominal pain R10.9 Nausea & vomiting R11.2 Acute kidney injury superimposed on chronic kidney disease N17.9; N18.9 Chronic steroid use Obesity E66.9 Hypothyroid E03.9 Diabetes E11.9 Chronic kidney disease, stage 3a N18.31 Hyperaldosteronism E26.9 Elevated troponin R77.8 Lactic acidosis E87.20 Asymptomatic bacteriuria R82.71 Cardiac resynchronization therapy defibrillator ([employer]RI[employer] PROFESSIONAL-D) in place Z95.810 Acute blood loss anemia D62 Hyponatremia E87.1 Thrombocytopenia D69.6 Shock liver K72.00
[2022-08-17] MEDS: insulin lispro 100 unit/1 mL SUBCUT ×3 (12:17→20:12)
[2022-08-17 16:01] LABS: Hematocrit 24.6 % (37.0-47.0)
[2022-08-17 16:24] LABS: Albumin Level 3.2 g/dL (3.5-5.2); Alkaline Phosphatase 122 U/L (35-105); Anion Gap 18.4 (5-19); Blood Urea Nitrogen 53 mg/dL (8-23); Calcium 7.7 mg/dL (8.5-10.5); Carbon Dioxide 21 mmol/L (22-29); Chloride 90 mmol/L (98-107); Globulin 1.4 g/dL (1.3-4.6); Glomerular Filtration Rate 17.4 mL/min (90-130); Glucose 361 mg/dL (65-115); Osmolality Calculated 289 mOsm/kg (285-295); Potassium 4.4 mmol/L (3.5-5.1); Sodium 125 mmol/L (136-145); Total Bilirubin 4.3 mg/dL (0.15-1.2); Total Protein 4.6 g/dL (6.6-8.7)
[2022-08-17 16:49] LABS: Alanine Aminotransferase 4543 U/L (0-33); Aspartate Amino Transferase 2158 U/L (0-32)
--- NOTE | 2022-08-17 17:37 | PM.PN ---
Subjective Subjective: Patient seen and examined. She continues to ooze blood from her open abdomen and be in DIC. She has come way down on her pressor requirements. Vitals/I&O/Wt Last Vital Signs Temp 98.5 F 08/17/22 16:51 Pulse 137 H 08/17/22 16:51 Resp 17 08/17/22 16:54 BP 118/69 08/17/22 16:51 Pulse Ox 95 08/17/22 16:54 O2 Del Method Mechanical Ventilation 08/17/22 13:00 O2 Flow Rate 4 08/14/22 21:45 FiO2 40 08/17/22 16:54 08/17/22 08/17/22 08/17/22 06:59 14:59 22:59 Intake Total 1393.484 / 8504.616 677.334 / 677.334 802 / 1479.334 Output Total 2950 / 5625 1000 / 1000 Balance -1556.516 / 2879.616 -322.666 / -322.666 802 / 479.334 Physical Exam Narrative: No acute distress, intubated and sedated Abdomen: Soft, no guarding or rebound, ABThera wound VAC in place Urinary Catheter Management: Zurita: Cath Placed During This Visit: yes Reason for Continuing Indwelling Catheter: Accurate Measurement of Urinary Output in Critically Ill Patients Urinary Catheter Date of Insertion: 08/14/22 Urinary Catheter Time of Insertion: 14:10 Data 08/17/22 15:48 08/17/22 15:48 Micro: Microbiology 08/15/22 08:15 Gram Stain - Final Sputum - Endotracheal Tube Aspirate Sputum Culture - Final Kathleen albicans A&P Assessment and plan (1) Shock liver: (2) Thrombocytopenia: (3) Hyponatremia: (4) Acute blood loss anemia: (5) Septic shock: (6) Chronic steroid use: (7) DIC (disseminated intravascular coagulation): Plan Postoperative day #3 status post exploratory laparotomy with right hemicolectomy and ABThera wound VAC placement Postoperative day #1 status post takeback exploratory laparotomy with partial colectomy and partial small bowel resection and placement of ABThera wound VAC Continue blood product replacement and medical management per hospitalist Plan to return to the OR tomorrow around 130 for exploratory laparotomy and likely closure of abdomen Attestations Medical Necessity Statement*: Per hospitalist Coding Level of Care Code Acute Code for Chg Fwd Diagnoses Shock liver K72.00 Thrombocytopenia D69.6 Hyponatremia E87.1 Acute blood loss anemia D62 Septic shock A41.9; R65.21 Chronic steroid use DIC (disseminated intravascular coagulation) D65
[2022-08-17 17:47] LABS: Hemoglobin 7.9 g/dL (11.5-15.3); Platelet Count 62 10^3/cmm (130-400)
[2022-08-17 17:48] LABS: Glucose Point of Care 426 mg/dL (70-110)
[2022-08-17 17:58] LABS: Albumin Level 3.3 g/dL (3.5-5.2); Alkaline Phosphatase 131 U/L (35-105); Anion Gap 18.5 (5-19); Blood Urea Nitrogen 54 mg/dL (8-23); Calcium 7.8 mg/dL (8.5-10.5); Carbon Dioxide 21 mmol/L (22-29); Chloride 90 mmol/L (98-107); Globulin 1.4 g/dL (1.3-4.6); Glomerular Filtration Rate 17.4 mL/min (90-130); Glucose 368 mg/dL (65-115); Osmolality Calculated 290 mOsm/kg (285-295); Potassium 4.5 mmol/L (3.5-5.1); Sodium 125 mmol/L (136-145); Total Bilirubin 4.4 mg/dL (0.15-1.2); Total Protein 4.7 g/dL (6.6-8.7)
[2022-08-17 18:10] LABS: Alanine Aminotransferase 4538 U/L (0-33)
[2022-08-17 18:11] LABS: Aspartate Amino Transferase 2011 U/L (0-32)
[2022-08-17 18:59] LABS: Glucose Point of Care 405 mg/dL (70-110)
[2022-08-17] MEDS: morphine 4 mg/mL SDV 1 mL 2 MG IVP (22:47)
[2022-08-17 22:48] LABS: Hemoglobin 6.6 g/dL (11.5-15.3)
[2022-08-17 22:53] LABS: Hematocrit 20.1 % (37.0-47.0)
[2022-08-17 23:04] LABS: Albumin Level 3.3 g/dL (3.5-5.2); Alkaline Phosphatase 108 U/L (35-105); Anion Gap 17.2 (5-19); Blood Urea Nitrogen 55 mg/dL (8-23); Calcium 7.9 mg/dL (8.5-10.5); Carbon Dioxide 23 mmol/L (22-29); Chloride 92 mmol/L (98-107); Globulin 1.2 g/dL (1.3-4.6); Glomerular Filtration Rate 16.7 mL/min (90-130); Glucose 367 mg/dL (65-115); Osmolality Calculated 296 mOsm/kg (285-295); Potassium 4.2 mmol/L (3.5-5.1); Sodium 128 mmol/L (136-145); Total Bilirubin 3.5 mg/dL (0.15-1.2); Total Protein 4.5 g/dL (6.6-8.7)
[2022-08-17] MEDS: chlorhexidine gluconate 4% Btl 118 mL 1 APPLIC TOPICAL (23:14)
[2022-08-17 23:16] LABS: Alanine Aminotransferase 3335 U/L (0-33)
[2022-08-17 23:21] LABS: Glucose Point of Care 399 mg/dL (70-110)
[2022-08-17 23:25] LABS: Aspartate Amino Transferase 1275 U/L (0-32)
--- NOTE | 2022-08-17 23:30 | PC.NURSE ---
Unable to asses pt orientation d/t intubation and sedation.
[2022-08-18] VITALS (106 sets, daily range): BP systolic 91–150; BP diastolic 55–85; PULSE 132–143; RESP 14–18; TEMP 36.6–37.4; O2SAT 90–98
[2022-08-18] MEDS: sodium chloride 0.9% 100 mL Bag 50 ML IV ×3 (00:15→17:00)
[2022-08-18] MEDS: hydrocortisone 100 mg/2 mL SDV IVP ×4 (00:26→17:22)
[2022-08-18] MEDS: albumin 25 G/100 ML BAG 60 G IV ×2 (00:33→08:27)
[2022-08-18] MEDS: ipratropium 0.5 mg/2.5 mL Neb INHALATION ×3 (01:54→19:51)
[2022-08-18] MEDS: levalbuterol 0.63 mg/3 mL Neb INHALATION ×3 (01:54→19:51)
[2022-08-18] MEDS: norepinephrine 8 MG in dextrose 5 % 500 ML 11.43 MG IV (03:25)
[2022-08-18] MEDS: HYDROmorphone 1 mg/mL INJ 1 mL IVP ×3 (03:41→21:09)
[2022-08-18] MEDS: pantoprazole 40 mg SDV IVP ×2 (04:10→17:22)
[2022-08-18 05:29] LABS: Glucose Point of Care 405 mg/dL (70-110)
[2022-08-18 05:57] LABS: Basophils # 0.1 10^3/uL (0.0-0.1); Basophils % 0.4 %; Eosinophils # 0.2 10^3/uL (0.0-0.8); Eosinophils % 1.4 %; Hematocrit 25.1 % (37.0-47.0); Hemoglobin 8.3 g/dL (11.5-15.3); Lymphocytes # 0.3 10^3/uL (0.8-4.8); Lymphocytes % 2.1 %; Mean Corpuscular HGB Conc 33.1 g/dL (30.0-36.0); Mean Corpuscular Hemoglobin 26.9 pg (28.0-34.0); Mean Corpuscular Volume 81.2 fl (81-99); Mean Platelet Volume 9.8 fL (7.4-10.4); Monocytes # 0.9 10^3/uL (0.2-0.9); Monocytes % 6.4 %; Neutrophils # 12.03 10^3/uL (1.8-7.7); Neutrophils % 85.8 %; Nucleated Red Blood Cells # 0.6 /100WBC; Nucleated Red Blood Cells % 4.6 %; Platelet Count 43 10^3/cmm (130-400); Red Blood Count 3.09 10^6/uL (4.1-5.3); Red Cell Distribution Width 16.7 % (12.1-15.1)
--- NOTE | 2022-08-18 05:58 | P.PN_ITS ---
Subjective Subjective: remains on ventilator, at bedside Vitals/I&O/Wt Last Vital Signs Temp 99.1 F 08/18/22 04:05 Pulse 135 H 08/18/22 04:15 Resp 14 08/18/22 05:00 BP 103/63 08/18/22 04:15 Pulse Ox 93 08/18/22 05:00 O2 Del Method Mechanical Ventilation 08/18/22 04:15 O2 Flow Rate 50 08/16/22 19:05 FiO2 40 08/18/22 05:00 08/17/22 08/17/22 08/18/22 14:59 22:59 06:59 Intake Total 911.893 / 408.547 6035.49 / 2169.383 1586.553 / 3755.936 Output Total 1000 / 1000 3350 / 4350 1175 / 5525 Balance -88.107 / -88.107 -2092.51 / -2180.617 411.553 / -1769.064 Weight last 48 hrs Weight 165.561 kg Physical Exam Extremity: GENERAL: Yes edema Urinary Catheter Management: Zurita: Cath Placed During This Visit: yes Reason for Continuing Indwelling Catheter: Accurate Measurement of Urinary Outp ut in Critically Ill Patients Urinary Catheter Date of Insertion: 08/14/22 Urinary Catheter Time of Insertion: 14:10 Data 08/18/22 05:47 08/18/22 05:47 Other Labs: vanco level 15 Micro: Microbiology 08/15/22 08:15 Gram Stain - Final Sputum - Endotracheal Tube Aspirate Sputum Culture - Final Kathleen albicans CT Abd/Pel: Radiologist's impression: 08/14/22: Adrenal glands: The adrenal glands are normal. Kidneys and ureters: Normal. No hydronephrosis. Other data: seen via telemedicine with assistance of RN at bedside A&P Assessment and plan (1) Hyponatremia: Plan 1. Acute nonoliguric kidney injury due to sepsis. Renal function stable, good urine output 2. Shock liver 3. Anemia, Hb stable 4. Hyperglycemia 5. Hyponatremia, stable Recommend: Continue supportive care. IV albumin can be discontinued Attestations Medical Necessity Statement*: critically ill in ICU Time Spent in Patient Care: 16 - 35 minutes Coding Level of Care Code Acute Code for [facility] Fwd Diagnoses Hyponatremia E87.1
[2022-08-18 06:04] LABS: ABG PCO2 44.3 mmHg (35-45); ABG PH Result 7.35 (7.35-7.45); Alveolar-Arterial Oxygen Gradi 20.1 mmHg (5-10); Arterial Blood Gas Hematocrit 26.7 % (37-47); Base Excess ABG -0.9 mmol/L (-2.0-2.0); Blood Gas Allen Test Pos; Blood Gas Operator Identificat JB; Blood Gas Sample Site Not specified; Blood Gas Sample Type Arterial; Blood Gas Tidal Volume 0.45; Carboxyhemoglobin 1.9 %THgb (0.4-20.1); HCO3 ABG 24.7 mmol/L (22-26); HGB O2 Sat 93.3 % (95-100); Ionized Calcium Level - ABG 1.1 mmol/L (1.1-1.4); Methemoglobin 1.1 % (0.4-1.5); Oxygen Device VENT; Oxygen Saturation ABG 96.2; PO2 ABG 75.7 mmHg (80.0-100.0); Potassium Level - ABG 4.1 mmol/L (3.5-5.0); Total Hemoglobin 8.7 g/dL (12-16)
[2022-08-18] MEDS: meropenem 1,000 MG in sodium chloride 0.9% (plus) 50 ML 100 MG IV ×2 (06:10→17:22)
[2022-08-18 06:13] LABS: INR 1.66 (0.8-1.2); Partial Thromboplastin Time 26.4 SECONDS (23.9-36.7)
[2022-08-18 06:14] LABS: Fibrinogen 239 mg/dL (174-498)
[2022-08-18 06:20] LABS: Albumin Level 3.4 g/dL (3.5-5.2); Alkaline Phosphatase 107 U/L (35-105); Anion Gap 17.3 (5-19); Aspartate Amino Transferase 669 U/L (0-32); Blood Urea Nitrogen 60 mg/dL (8-23); Calcium 7.7 mg/dL (8.5-10.5); Carbon Dioxide 23 mmol/L (22-29); Chloride 94 mmol/L (98-107); Globulin 1.1 g/dL (1.3-4.6); Glomerular Filtration Rate 17.4 mL/min (90-130); Glucose 387 mg/dL (65-115); Osmolality Calculated 303 mOsm/kg (285-295); Potassium 4.3 mmol/L (3.5-5.1); Sodium 130 mmol/L (136-145); Total Bilirubin 4.1 mg/dL (0.15-1.2); Total Protein 4.5 g/dL (6.6-8.7)
[2022-08-18 06:30] LABS: Slide Review Slide Review Perform
[2022-08-18 06:31] LABS: Alanine Aminotransferase 2679 U/L (0-33)
[2022-08-18] MEDS: budesonide 0.5 mg/2 mL Neb INHALATION ×2 (07:39→19:51)
[2022-08-18 08:19] LABS: Glucose Point of Care 407 mg/dL (70-110)
[2022-08-18] MEDS: levothyroxine 100 mcg SDV IVP (09:11)
[2022-08-18 09:18] LABS: Glucose Point of Care 401 mg/dL (70-110)
[2022-08-18] MEDS: insulin regular-human 250 UNIT in sodium chloride 0.9% 250 ML 10.33 UNIT IV (09:18)
[2022-08-18 10:21] LABS: Glucose Point of Care 427 mg/dL (70-110)
--- NOTE | 2022-08-18 11:17 | PM.PN ---
Vitals/I&O/Wt Last Vital Signs Temp 99.1 F 08/18/22 06:17 Pulse 140 H 08/18/22 09:45 Resp 16 08/18/22 10:49 BP 109/63 08/18/22 09:45 Pulse Ox 94 08/18/22 10:49 O2 Del Method Mechanical Ventilation 08/18/22 07:40 O2 Flow Rate 50 08/16/22 19:05 FiO2 40 08/18/22 10:49 08/17/22 08/18/22 08/18/22 22:59 06:59 14:59 Intake Total 1257.49 / 2169.383 1589.853 / 3759.236 159.469 / 159.469 Output Total 3350 / 4350 1600 / 5950 500 / 500 Balance -2092.51 / -2180.617 -10.147 / -2190.764 -340.531 / -340.531 Weight last 48 hrs Weight 365 lb Physical Exam Urinary Catheter Management: Zurita: Cath Placed During This Visit: yes Reason for Continuing Indwelling Catheter: Accurate Measurement of Urinary Output in Critically Ill Patients Urinary Catheter Date of Insertion: 08/14/22 Urinary Catheter Time of Insertion: 14:10 Data 08/18/22 05:47 08/18/22 05:47 Micro: Microbiology 08/15/22 08:15 Gram Stain - Final Sputum - Endotracheal Tube Aspirate Sputum Culture - Final Kathleen albicans A&P Assessment and plan (1) DIC (disseminated intravascular coagulation): (2) Acute blood loss anemia: (3) Ischemic necrosis of large intestine: (4) Septic shock: Plan Exploratory laparotomy The risk and benefits of the procedure, including but not limited to, bleeding, infection, scar, numbness, pain, anastomotic leak, damage to surrounding structures, need for further surgery, , were explained to the patient's . He was understanding of the risks and wished to proceed Attestations Medical Necessity Statement*: per hospitalist Coding Level of Care Code Acute Code for Chg Fwd Diagnoses DIC (disseminated intravascular coagulation) D65 Acute blood loss anemia D62 Ischemic necrosis of large intestine K55.049 Septic shock A41.9; R65.21
[2022-08-18 11:37] LABS: Glucose Point of Care 378 mg/dL (70-110)
[2022-08-18 12:30] LABS: Glucose Point of Care 337 mg/dL (70-110)
--- NOTE | 2022-08-18 13:19 | ANES.PAUD2 ---
Pre-Anesthetic Update Pre-Anesthetic Assessment: Date of Surgery/Procedure: 08/18/22 Proposed Procedure: Operation Date: 08/14/22 21:25 Proposed Procedures p Exploratory Laparotomy(Not Applicable) - Abdoul Palomo DO Operation Date: 08/16/22 15:30 Proposed Procedures p Exploratory Laparotomy poss. bowel resection(Not Applicable) - Abdoul Palomo, DO s poss. Bowel Resection(Not Applicable) - Abdoul Palomo DO Operation Date: 08/18/22 14:20 Proposed Procedures p Exploratory Laparotomy(Not Applicable) - Abdoul Palomo, DO s Possible Small Bowel Resection(Not Applicable) - Abdoul Palomo, DO Any changes to Pre-Anesthetic Assessment?: No Labs Last 48hrs: Short CBC 08/16/22 08/16/22 08/16/22 Range/Units 13:38 16:46 19:55 WBC 19.6 H 15.9 H 9.9 (4.0-10.0) 10^3/ uL Hgb 8.2 L 7.4 L 5.2 L* (11.5-15.3) g/dL Hct 26.2 L 23.3 L 16.5 L* (37.0-47.0) % MCV 77.1 L 76.4 L 77.8 L (81-99) fl Plt Count 107 L 73 L D 30 L D (130-400) 10^3/c mm Neut % (Auto) 83.1 % Neut # (Auto) 16.24 H (1.8-7.7) 10^3/u L 08/17/22 08/17/22 08/17/22 Range/Units 01:26 05:22 09:27 WBC 11.2 H (4.0-10.0) 10^3/ uL Hgb 7.7 L D 6.9 L 7.1 L (11.5-15.3) g/dL Hct 24.0 L D 21.6 L 22.2 L (37.0-47.0) % MCV 78.9 L (81-99) fl Plt Count 30 L (130-400) 10^3/c mm Neut % (Auto) % Neut # (Auto) (1.8-7.7) 10^3/u L 08/17/22 08/17/22 08/17/22 Range/Units 15:48 16:56 22:39 WBC (4.0-10.0) 10^3/ uL Hgb 8.0 L 7.9 L 6.6 L (11.5-15.3) g/dL Hct 24.6 L 24.0 L 20.1 L* (37.0-47.0) % MCV (81-99) fl Plt Count 62 L D (130-400) 10^3/c mm Neut % (Auto) % Neut # (Auto) (1.8-7.7) 10^3/u L 08/18/22 Range/Units 05:47 WBC 14.0 H (4.0-10.0) 10^3/ uL Hgb 8.3 L (11.5-15.3) g/dL Hct 25.1 L (37.0-47.0) % MCV 81.2 (81-99) fl Plt Count 43 L D (130-400) 10^3/c mm Neut % (Auto) 85.8 % Neut # (Auto) 12.03 H (1.8-7.7) 10^3/u L BMP 08/16/22 08/16/22 08/17/22 13:38 19:55 01:26 Sodium 123 L 128 L 126 L Potassium 4.0 4.4 4.5 Chloride 95 L 91 L 91 L Carbon Dioxide 16 L 22 19 L BUN 46 H 46 H 48 H Creatinine 2.8 H 2.9 H 2.8 H Glucose 261 H 197 H 293 H Calcium 6.4 L 6.8 L 7.3 L 08/17/22 08/17/22 08/17/22 05:22 09:27 15:48 Sodium 126 L 128 L 125 L Potassium 4.0 4.0 4.4 Chloride 91 L 90 L 90 L Carbon Dioxide 21 L 20 L 21 L BUN 50 H 50 H 53 H Creatinine 2.7 H 2.6 H 2.7 H Glucose 307 H 306 H 361 H Calcium 7.3 L 6.7 L 7.7 L 08/17/22 08/17/22 08/18/22 16:56 22:39 05:47 Sodium 125 L 128 L 130 L Potassium 4.5 4.2 4.3 Chloride 90 L 92 L 94 L Carbon Dioxide 21 L 23 23 BUN 54 H 55 H 60 H Creatinine 2.7 H 2.8 H 2.7 H Glucose 368 H 367 H 387 H Calcium 7.8 L 7.9 L 7.7 L Liver Function 08/16/22 08/16/22 08/17/22 Range/Units 13:38 19:55 01:26 Total Bilirubin 1.0 2.6 H 4.2 H (0.15-1.2) mg/dL Direct Bilirubin (0.00-0.30) mg/d L AST 54743 H 8687 H 7166 H (0-32) U/L ALT 35360 H 7663 H 6829 H (0-33) U/L Alkaline Phosphata se 167 H 130 H 131 H (35-105) U/L Albumin 1.5 L 3.2 L 3.1 L (3.5-5.2) g/dL 08/17/22 08/17/22 08/17/22 Range/Units 05:22 09:27 15:48 Total Bilirubin 5.1 H 4.8 H 4.3 H (0.15-1.2) mg/dL Direct Bilirubin (0.00-0.30) mg/d L AST 4894 H 3114 H 2158 H (0-32) U/L ALT 5802 H 4978 H 4543 H (0-33) U/L Alkaline Phosphata se 115 H 115 H 122 H (35-105) U/L Albumin 3.1 L 4.5 3.2 L (3.5-5.2) g/dL 08/17/22 08/17/22 08/18/22 Range/Units 16:56 22:39 05:47 Total Bilirubin 4.4 H 3.5 H 4.1 H (0.15-1.2) mg/dL Direct Bilirubin (0.00-0.30) mg/d L AST 2011 H 1275 H 669 H (0-32) U/L ALT 4538 H 3335 H 2679 H (0-33) U/L Alkaline Phosphata se 131 H 108 H 107 H (35-105) U/L Albumin 3.3 L 3.3 L 3.4 L (3.5-5.2) g/dL 08/18/22 Range/Units 05:47 Total Bilirubin (0.15-1.2) mg/dL Direct Bilirubin 2.60 H (0.00-0.30) mg/d L AST (0-32) U/L ALT (0-33) U/L Alkaline Phosphata se (35-105) U/L Albumin (3.5-5.2) g/dL Blood Bank 08/15/22 08/17/22 04:48 01:26 Blood Type O Positive O Positive Rho(D) Type Positive Positive Antibody Screen Negative Negative Coags 08/16/22 08/17/22 08/18/22 16:46 05:22 05:47 PT 21.80 H D 21.60 H 20.20 H INR 1.83 H 1.81 H 1.66 H APTT 30.1 26.4 Fibrinogen 290 239 ABG 08/18/22 05:50 Specimen Type Arterial Sample Site Not specified ABG pH 7.35 ABG pCO2 44.3 ABG pO2 75.7 L ABG HCO3 24.7 ABG O2 Saturation 96.2 ABG Base Excess -0.9 A-a O2 Gradient 20.1 H O2 Delivery Device Vent FiO2 40.0 Tidal Volume 0.45 PEEP 8.0 Vitals: Temperature 99.0 F 08/18/22 12:52 Temperature Source Axillary 08/18/22 12:52 Pulse Rate 142 H 08/18/22 12:52 Pulse Rhythm Regular 08/18/22 12:52 Pulse Strength 3+ Normal 08/18/22 12:52 Respiratory Rate 14 08/18/22 12:52 Respiratory Effort Spontaneous, Non- Labored 08/18/22 12:52 Respiratory Depth Normal 08/18/22 12:52 Respiratory Patter n Normal 08/18/22 12:52 Blood Pressure 102/65 08/18/22 12:52 Blood Pressure Savan[place] n 77 08/18/22 12:52 Blood Pressure Pos ition Supine 08/18/22 12:52 Pulse Oximetry 94 08/18/22 12:52 Oxygen Delivery Me thod Mechanical Ventil ation 08/18/22 07:40 Oxygen Flow Rate 50 08/16/22 19:05 Fraction of Inspir ed Oxygen 40 08/18/22 10:49 Sepsis Recent Feve r Within 48 Hours No 08/14/22 14:09 Exam: Additional Exam Findings (including area of procedure): Intubated and sedated in ICU, pressor requirements less but some still necessary, labs improving. Cardiac Studies: Echocardiogram 01/04/22 Echocardiogram Limited Views 06/02/22 Transesophageal Echocardiogram 08/04/21 Cardiac Event Monitor 01/05/21
[2022-08-18 13:22] LABS: Glucose Point of Care 288 mg/dL (70-110)
--- NOTE | 2022-08-18 14:58 | PC.NURSE ---
patient let for OR at [id number]
--- NOTE | 2022-08-18 15:00 | CT_ITS ---
WS: [id number] CT ABDOMEN PELVIS TECHNIQUE: Noncontrast CT of the abdomen and pelvis with coronal and sagittal reformatted images. CLINICAL INFORMATION: bowel? Bleeding? COMPARISON: CT August 14, 2022 DLP: 1679.[address] scans at [facility] use at least one of these dose optimization techniques: automated e xposure control; mA and/or kV adjustment per patient size (includes targeted exams where dose is matc hed to clinical indication); or iterative reconstruction. FINDINGS: Interval postoperative changes partial colectomy with resection of the RIGHT colon. Partial small bowel resection per report. Open abdominal surgical defect with herniation of loops of bowel e xtending off the [id number]. Loops of bowel are incompletely visualized on this study due to body habitus. Normal visualized sigmoid colon. Scattered locules of air within the abdominal wall defect likely pos toperative. No evidence of high-grade bowel obstruction. No significant free fluid. Previously described portal venous gas has resolved. Enteric tube with tip in the proximal stomach. Small bilateral pleural effusions with bibasilar compressive atelectasis in the lung bases. Shallow i nspiration. Cardiomegaly. Trace pericardial fluid. Normal noncontrast spleen. Adrenal glands are norm al. No hydronephrosis in either kidney. Fatty atrophy of the pancreas. Normal caliber abdominal aorta . Aortic calcification. Diffuse fatty infiltration liver. Prior hysterectomy. CT/CT abdomen pelvis con [id number] IMPRESSION: 1. Interval postoperative changes partial colectomy with open abdominal surgic al defect. 2. Herniation of bowel loops into the midline abdominal defect. Some bowel loo ps extending off [id number] due to body habitus. 3. No evidence of high-grade small or large bowel obstruction. 4. Scattered locules of air within the midline hernia likely postoperative. 5. Previously described portal venous gas has resolved. 6. No hydronephrosis in either kidney. 7. Small bilateral pleural effusions with compressive atelectasis in the lung bases. 8. Enteric tube with tip in the proximal stomach. 9. No other acute findings.
--- NOTE | 2022-08-18 15:41 | PM.OP ---
Operative Report Date of procedure: August 19, 2022 Pre-op diagnosis: Open abdomen Septic shock with multiorgan failure DIC Post-op diagnosis: other (Multiorgan failure, DIC) Procedure done: Exploratory laparotomy Small bowel resection Splenic flexure takedown Ileocolic anastomosis Implants: 19 [place] Malik drain Specimens removed/disposition: 6 inches of terminal ileum Surgeon: Dr. Abdoul Palomo, DO Anesthesia: General Estimated blood loss (mL): 50 Complications: None of Brief History: This is a 72-year-old female who is in multiorgan failure secondary to ischemic bowel. This is her third trip to the operating room the last 4 days. Her first 2 surgeries involved exploratory laparotomy with bowel resections due to ischemia. She has been left in discontinuity with an open abdomen. Exploratory laparotomy with possible bowel resection was explained and documented Procedure: Patient was wheeled in operative room placed on the OR table in supine position. The abdomen was inspected prepped and draped in usual sterile fashion. General anesthesia was achieved by the department of anesthesia. A timeout was performed. All present were in agreement. The ABThera wound VAC was removed from the abdomen. The abdomen was then fully inspected and no further ischemic bowel was encountered. She was given 2 pools of platelets, 2 units of FFP and 1 unit PRBCs perioperatively. Identified distal transverse colon and distal ileum. In order to make an anastomosis I had to take down the splenic flexure using blunt dissection and Enseal, taking care not to rip the spleen. I used the Enseal to transect the mesentery of the small bowel to further reach up towards the transverse colon. A significant portion of mesentery had to be taken down for this and ultimately a resected about 6 inches of small bowel that did not appear to have good enough blood flow. KIM stapler was used to do this. The mesentery was very edematous. A small enterotomy was made in the distal ileum and a colotomy was made in the most proximal remaining colon. A [id number]-adng, functional end-to-end anastomosis was made with a KIM stapler blue load 100 millimeters x2. The staple line was reinforced with Vistaseal. A 19 [place] Malik drain was inserted through the left lower quadrant of the abdomen and placed up over the anastomosis and down along the left paracolic gutter. The abdomen was then closed with #1 PDS in a running fashion x2. Skin was closed with lori. Patient was wheeled back to the intensive care unit.
--- NOTE | 2022-08-18 16:07 | PC.NURSE ---
patient back in unit [id number]
[2022-08-18 16:22] LABS: Glucose Point of Care 192 mg/dL (70-110)
--- NOTE | 2022-08-18 16:22 | SUR.OPER ---
Blood glucose did not transfer to lab flowsheet. At 1413 blood glucose was 250, at 1517 glucose was 210. See insulin drip protocol flowsheet for titrations.
[2022-08-18 16:41] LABS: Glucose Point of Care 210 mg/dL (70-110)
[2022-08-18 16:41] LABS: Glucose Point of Care 250 mg/dL (70-110)
--- NOTE | 2022-08-18 16:44 | SUR.OPER ---
Wound vac discontinued, case management notified, attempted to call [facility], but was unable to speak with anyone.
--- NOTE | 2022-08-18 16:58 | PM.PN ---
Subjective Subjective: Patient was seen and examined, she continues to be critically ill, though she has shown significant improvement,when compared to what state she was in initially, currently she is on minimum of levophed, though she has continued to require blood products her hb dropped again last night and she required 2Us PRBC transfusion overnight,she continue to have robust urine output.She was restarted back on insulin drip as her FSG was again high.Given the fact that her presseor requirements have significantly gone down, will start cutting back on stress dose of hydrocortisone.Patient is due to receive additional 2u platelets as well as 2 of FFP as she is due for OR today for her surgical intervention. Medications: Medication Review Details: Generic Name Dose Route Start Last Admin Trade Name Freq PRN Reason Stop Dose Admin Al Hydrox/Mg Anita x/Simethicone 30 ml 08/14/22 17:00 08/14/22 17:16 Besp-Wta-Cheasdr de-Michel 30 Ml Udc PO 30 ml Q4H PRN Administration INDIGESTION Budesonide 0.5 mg 08/14/22 20:00 08/18/22 07:39 Budesonide 0.5 M g/2 Ml Neb INHALATION 0.5 mg BID.RESPIRATORY S CH Administration Chlorhexidine Gluc ila 1 applic 08/17/22 21:10 08/17/22 23:14 Chlorhexidine Gl uconate 4% Btl 118 Ml TOPICAL 1 applic DAILY PRN Administration Bed bath while in tubated. Hydrocortisone Sod ium Succinate 100 mg 08/15/22 18:15 08/18/22 13:00 Hydrocortisone 1 00 Mg/2 Ml Sdv IVP 100 mg Q6H RAMIRO Administration Hydromorphone HCl 1 mg 08/14/22 23:32 08/18/22 10:48 Hydromorphone 1 Mg/Ml Inj 1 Ml IVP 1 mg Q2H PRN Administration PAIN Meropenem 1,000 mg / Sodium 50 mls @ 100 mls/ hr 08/14/22 18:00 08/18/22 07:21 Chloride IV Infused Q12H RAMIRO Infusion Protocol Vancomycin/PEG/NAD A/Lysine/Water 2,000 mg in 400 m ls @ 200 mls/hr 08/14/22 23:00 08/17/22 01:17 Vancocin IV Infused Q48H RAMIRO Infusion Propofol 1,000 mg in 100 m ls @ 0 mls/hr 08/14/22 23:30 08/16/22 06:05 Diprivan IV Infused .Q0M RAMIRO Titration Protocol Per Protocol Vasopressin 100 un it/ Sodium 100 mls @ 0 mls/h r 08/15/22 00:45 08/17/22 02:15 Chloride IV Infused .Q0M RAMIRO Titration Protocol Per Protocol Norepinephrine Bit artrate 8 mg 508 mls @ 0 mls/h r 08/15/22 01:00 08/18/22 04:54 / Dextrose IV 2 mcg/min .Q0M RAMIRO 7.62 mls/hr Titration Protocol Per Protocol Phenylephrine HCl 25 mg/ 252.5 mls @ 0 mls /hr 08/15/22 01:45 08/15/22 15:40 Sodium Chloride IV Infused .Q0M RAMIRO Titration Protocol Per Protocol Midazolam HCl 100 mg/ Sodium 100 mls @ 0 mls/h r 08/15/22 05:30 08/18/22 06:00 Chloride IV 2 mg/hr .Q0M RAMIRO 2 mls/hr Titration Protocol Per Protocol Phenylephrine HCl 50 mg/ 505 mls @ 0 mls/h r 08/15/22 15:00 08/17/22 19:00 Sodium Chloride IV Infused .Q0M RAMIRO Titration Protocol Per Protocol Albumin Human 25 g in 100 mls @ 60 mls/hr 08/16/22 08:30 08/18/22 10:19 Albumin IV Infused Q8H RAMIRO Infusion Amiodarone HCl 900 mg/ 518 mls @ 34.533 mls/hr 08/16/22 21:03 08/18/22 01:22 Dextrose/ IV Misce llaneous IV 1 mg/min Supplies CONT RAMIRO 34.53 mls/hr Administration 1 MG/MIN Insulin Human Regu lar 250 unit 252.5 mls @ 0 mls /hr 08/18/22 08:30 08/18/22 16:16 / Sodium Chlorid e IV 11.68 unit/hr .Q0M RAMIRO 11.8 mls/hr Titration Protocol Per Protocol Ipratropium Bromid e 0.5 mg 08/15/22 08:00 08/18/22 13:45 Ipratropium 0.5 Mg/2.5 Ml Neb INHALATION Not Given Q6H.RESP RAMIRO Levalbuterol HCl 0.63 mg 08/14/22 20:00 08/18/22 13:45 Levalbuterol 0.6 3 Mg/3 Ml Neb INHALATION Not Given Q6H.RESP RAMIRO Levothyroxine Sodi um 100 mcg 08/18/22 09:00 08/18/22 09:11 Levothyroxine 10 0 Mcg Sdv IVP 100 mcg DAILY RAMIRO Administration Morphine Sulfate 2 mg 08/14/22 17:15 08/17/22 22:47 Morphine 4 Mg/Ml Sdv 1 Ml IVP 2 mg Q4H PRN Administration SEVERE PAIN Ondansetron HCl 4 mg 08/14/22 17:15 08/14/22 21:39 Ondansetron 2 Mg /Ml Sdv 2 Ml IVP 4 mg Q6H PRN Administration vomiting, or N/V if npo Pantoprazole Sodiu m 40 mg 08/14/22 17:00 08/18/22 04:10 Pantoprazole 40 Mg Sdv IVP 40 mg Q12H RAMIRO Administration Pramipexole Dihydr ochloride 1 mg 08/14/22 21:00 08/17/22 20:09 Pramipexole 0.25 Mg Tablet PO Not Given BEDTIME RAMIRO Promethazine HCl 12.5 mg 08/14/22 16:58 08/14/22 17:16 Promethazine 25 Mg/Ml Sdv 1 Ml IM 12.5 mg Q6H PRN Administration NAUSEA Sodium Bicarbonate 50 meq 08/16/22 13:15 08/16/22 14:28 Sodium Bicarbona te 1 Meq/Ml Sdv 50 ml IVP 50 meq ONCE PRN Administration Sucralfate 1 gm 08/14/22 17:00 08/18/22 10:21 Sucralfate 1 Gm/ 10 Ml Oral Liq Udc PO Not Given AC&BEDTIME RAMIRO Vitals/I&O/Wt Last Vital Signs Temp 99.0 F 08/18/22 12:52 Pulse 140 H 08/18/22 13:30 Resp 14 08/18/22 16:21 BP 107/68 08/18/22 13:30 Pulse Ox 93 08/18/22 16:21 O2 Del Method Mechanical Ventilation 08/18/22 07:40 O2 Flow Rate 50 08/16/22 19:05 FiO2 40 08/18/22 16:21 08/18/22 08/18/22 08/18/22 06:59 14:59 22:59 Intake Total 1589.853 / 3759.236 1357.402 / 1357.402 397.109 / 1754.511 Output Total 1600 / 5950 1325 / 1325 50 / 1375 Balance -10.147 / -2190.764 32.402 / 32.402 347.109 / 379.511 Weight last 48 hrs Weight 171.458 kg Weight 165.561 kg Physical Exam HENMT: COMMON NORMALS: normocephalic and atraumatic HEAD & SCALP: normocephalic and atraumatic Resp: COMMON NORMALS: clear to auscultation bilaterally AUSCULTATION: clear to auscultation bilaterally Cardio: COMMON NORMALS: regular rate, regular rhythm, S1 normal heart sound present, S2 normal heart sound present, No gallops present (Cardio), No murmurs present (Cardio), No rub (Cardio) and Peripheral pulses 2+ throughout RATE: regular rate RHYTHM: regular rhythm HEART SOUNDS: S1 normal heart sound present and S2 normal heart sound present PERIPHERAL PULSES: Peripheral pulses 2+ throughout GI: OTHER: wound vac in place Extremity: COMMON NORMALS: no clubbing, cyanosis or edema and no pedal edema Urinary Catheter Management: Zurita: Cath Placed During This Visit: yes Reason for Continuing Indwelling Catheter: Accurate Measurement of Urinary Output in Critically Ill Patients Urinary Catheter Date of Insertion: 08/14/22 Urinary Catheter Time of Insertion: 14:10 Data 08/18/22 18:00 08/18/22 18:00 A&P Assessment and plan (1) Shock: (2) Adrenal crisis syndrome: (3) Paroxysmal atrial fibrillation with RVR: (4) Abdominal pain: (5) Nausea & vomiting: (6) Acute kidney injury superimposed on chronic kidney disease: (7) Chronic steroid use: (8) Obesity: (9) Hypothyroid: (10) Diabetes: Stop oral hypoglycemics Suicide insulin moderate dose protocol before meals and at bedtime. (11) Chronic kidney disease, stage 3a: (12) Hyperaldosteronism: (13) Elevated troponin: (14) Lactic acidosis: (15) Asymptomatic bacteriuria: (16) Cardiac resynchronization therapy defibrillator (KLYSTROM TUBE TESTER-D) in place: Placed on 08/08 at outside hospital. Will request documents from outpatient slat grader Dr. Moody from [place]. Empiric antibiotics for now as above. Continue to monitor. (17) Acute blood loss anemia: (18) Hyponatremia: (19) Thrombocytopenia: (20) Shock liver: Plan 72 year old female with past medical history of congestive diastolic heart failure, chronic intermittent atrial fibrillation post radiofrequency ablation, CAD, hypertension, hypothyroidism, hypopituitarism on chronic steroids, pulmonary hypertension, obstructive sleep apnea who was recently discharged from [facility] after KLYSTROM TUBE TESTER-D implantation on Monday.?Patient presented to the ER today with epigastric abdominal cramps. Currently she is being managed for. Assessment: Septic shock: Secondary to ischemic necrosis of large intestine with GI translocation. CT chest abdomen and pelvis: There is subcutaneous emphysema along the left chest wall especially superior and deep to the pacemaker.?Ischemic cecum and ascending colon with pneumatosis in the bowel wall and gas within the adjacent draining veins. Portal venous gas. There is skin thickening and mild edema of the subcutaneous fat of the lower abdominal wall/pannus that may reflect cellulitis. No fluid collection or abscess. Random cortisol:3.71 Blood culture: NTD Urine culture: Urine Legionella antigen negative Bacterial panel negative Lactic acid:3 Was on high dose of multiple pressors (Levophed phenylephrine and vasopressin),Currently on levophed. Currently on stress dose of steroid hydrocortisone 100 mg IV every 6h Empirically on broad-spectrum antibiotic vancomycin and meropenem Ischemic necrosis of large intestine: Given her prior history of prior paroxysmal atrial fibrillation possibility of embolic episode exist. S/p laparoscopy with conversion to exploratory laparotomy and right hemicolectomy Surgery on board. RODRIGUE on CKD: Secondary to septic shock Baseline creatinine 1.2. Admission serum creatinine 2.4 Monitor BMP Intake output charting Continue IV hydration Avoid nephrotoxic Nephrology on board Refractory metabolic acidosis: Secondary to sepsis, RODRIGUE, Was on bicarb drip I am hoping that with improvement in severe metabolic acidosis, pressors requirement should also come down. Monitor serum BMP Monitor ABG Acute Anemia: S/P 6 unit PRBC Monitor H&H Transfuse to keep hemoglobin greater than 7 Likely patient is developing fulminant hepatic failure: Secondary to shock liver: Secondary to severe hypotension secondary to sepsis: ULT Abdomen: Has shown cholelithiasis without evidence of acute cholecystitis, though it is a limited evaluation, hepatomegaly. Currentlly AST ALT alk phos is significantly elevated: AST ALT has trended down since yesterday, ALP appears to be peaking. Monitor CMP for now Hyper bilirubinemia: Could be part of shock liver. Acalculous cholecystitis is unlikely. Follow total and direct bilirubin. Thrombocytopenia: Possibly secondary to sepsis Monitor for possibly developing DIC 4T Score: Reviewed Review peripheral blood smear S/P 5 U Platelets S/P 8FFP A-fib with RVR: Currently on amnio drip Continue telemetry monitoring Not a candidate for anticoagulation now History of diabetes: Was on insulin drip, currently on medium dose sliding scale insulin Goal is for tight glucose control (FSG ranging from 160-180 ) Hypothyroidism: Continue levothyroxine hypopituitarism on chronic steroids Currently on hydrocortisone CODE STATUS: Full code DVT prophylaxis on SCD Attestations Medical Necessity Statement*: Patient needs to be in hospital for the management of septic shock. Critical Care Time: The high probability of a clinically significant, sudden or life threatening deterioration of the patient's [] system(s) required my full and direct attention, intervention and personal management. The critical care time is as shown. This time is in addition to time spent performing any reported procedures but includes the following: [x] Data and vital sign review and interpretation [x] Patient assessment, examination and intervention [x] Documentation [x] Medication orders and management Critical Care Time (min): 45 Coding Level of Care Code Acute Code for Chg Fwd Diagnoses Shock R57.9 Adrenal crisis syndrome E27.2 Paroxysmal atrial fibrillation with RVR I48.0 Abdominal pain R10.9 Nausea & vomiting R11.2 Acute kidney injury superimposed on chronic kidney disease N17.9; N18.9 Chronic steroid use Obesity E66.9 Hypothyroid E03.9 Diabetes E11.9 Chronic kidney disease, stage 3a N18.31 Hyperaldosteronism E26.9 Elevated troponin R77.8 Lactic acidosis E87.20 Asymptomatic bacteriuria R82.71 Cardiac resynchronization therapy defibrillator (KLYSTROM TUBE TESTER-D) in place Z95.810 Acute blood loss anemia D62 Hyponatremia E87.1 Thrombocytopenia D69.6 Shock liver K72.00
--- NOTE | 2022-08-18 17:00 | ANE.PACU2 ---
Inpatient post-anesthesia follow up: Airway intact: Yes (ETT) Vital signs: Temperature 99.0 F Pulse Rate 140 Respiratory Rate 14 Blood Pressure 107/68 Pulse Oximetry 93 Oxygen Delivery Me thod [ Room Air Current Rate & Del zelda] Oxygen Delivery Me thod Mechanical Ventila tion Oxygen Flow Rate 40 Fraction of Inspir ed Oxygen 40 Hydration adequate: Yes Nausea and vomiting: No Pain level: Other Mental status: Altered (Sedated) Additional Comments: Intubated and sedated to ICU, stable.
[2022-08-18 17:27] LABS: Glucose Point of Care 162 mg/dL (70-110)
[2022-08-18 18:11] LABS: Glucose Point of Care 145 mg/dL (70-110)
[2022-08-18 18:14] LABS: Platelet Count 67 10^3/cmm (130-400)
[2022-08-18 18:54] LABS: Albumin Level 3.8 g/dL (3.5-5.2); Alkaline Phosphatase 107 U/L (35-105); Anion Gap 16.6 (5-19); Aspartate Amino Transferase 431 U/L (0-32); Blood Urea Nitrogen 58 mg/dL (8-23); Calcium 8.9 mg/dL (8.5-10.5); Carbon Dioxide 24 mmol/L (22-29); Chloride 98 mmol/L (98-107); Globulin 1.3 g/dL (1.3-4.6); Glucose 134 mg/dL (65-115); Osmolality Calculated 298 mOsm/kg (285-295); Potassium 3.6 mmol/L (3.5-5.1); Sodium 135 mmol/L (136-145); Total Bilirubin 3.3 mg/dL (0.15-1.2); Total Protein 5.1 g/dL (6.6-8.7)
[2022-08-18 19:05] LABS: Alanine Aminotransferase 1803 U/L (0-33)
[2022-08-18 19:08] LABS: Basophils # 0.1 10^3/uL (0.0-0.1); Basophils % 0.6 %; Eosinophils # 0.1 10^3/uL (0.0-0.8); Eosinophils % 0.5 %; Hematocrit 26.9 % (37.0-47.0); Lymphocytes # 0.4 10^3/uL (0.8-4.8); Lymphocytes % 2.7 %; Mean Corpuscular HGB Conc 33.5 g/dL (30.0-36.0); Mean Corpuscular Hemoglobin 27.5 pg (28.0-34.0); Mean Corpuscular Volume 82.3 fl (81-99); Mean Platelet Volume 9.9 fL (7.4-10.4); Monocytes % 6.1 %; Neutrophils # 14.01 10^3/uL (1.8-7.7); Neutrophils % 84.7 %; Nucleated Red Blood Cells # 0.9 /100WBC; Nucleated Red Blood Cells % 5.4 %; Platelet Count 78 10^3/cmm (130-400); Red Blood Count 3.27 10^6/uL (4.1-5.3); Red Cell Distribution Width 16.7 % (12.1-15.1); White Blood Count 16.5 10^3/uL (4.0-10.0)
[2022-08-18 19:22] LABS: Glucose Point of Care 138 mg/dL (70-110)
[2022-08-18 19:41] LABS: Slide Review Slide Review Perform
[2022-08-18 20:56] LABS: Glucose Point of Care 140 mg/dL (70-110)
[2022-08-18 22:24] LABS: Glucose Point of Care 154 mg/dL (70-110)
[2022-08-18 22:26] LABS: Platelet Count 63 10^3/cmm (130-400)
[2022-08-18 23:08] LABS: Vancomycin Trough 11.9 ug/mL (10-15)
[2022-08-18 23:23] LABS: Glucose Point of Care 157 mg/dL (70-110)
[2022-08-19] VITALS (86 sets, daily range): BP systolic 79–128; BP diastolic 54–74; PULSE 140–153; RESP 14–19; TEMP 37–37.2; O2SAT 91–95
[2022-08-19] MEDS: potassium chloride premix 100 ML 25 MEQ IV (00:06)
[2022-08-19] MEDS: hydrocortisone 100 mg/2 mL SDV IVP ×2 (00:06→05:35)
[2022-08-19] MEDS: vancomycin 2,000 MG/400 ML PIGGYBACK 200 MG IV (00:26)
[2022-08-19 00:50] LABS: Glucose Point of Care 152 mg/dL (70-110)
[2022-08-19 01:46] LABS: Basophils # 0.1 10^3/uL (0.0-0.1); Basophils % 0.6 %; Eosinophils # 0.2 10^3/uL (0.0-0.8); Eosinophils % 0.8 %; Hematocrit 27.6 % (37.0-47.0); Hemoglobin 9.1 g/dL (11.5-15.3); Lymphocytes # 0.5 10^3/uL (0.8-4.8); Lymphocytes % 2.5 %; Mean Corpuscular Hemoglobin 27.2 pg (28.0-34.0); Mean Corpuscular Volume 82.6 fl (81-99); Monocytes # 1.5 10^3/uL (0.2-0.9); Monocytes % 7.1 %; Neutrophils # 18.06 10^3/uL (1.8-7.7); Neutrophils % 84.1 %; Nucleated Red Blood Cells % 4.6 %; Platelet Count 74 10^3/cmm (130-400); Red Blood Count 3.34 10^6/uL (4.1-5.3); White Blood Count 21.5 10^3/uL (4.0-10.0)
[2022-08-19 01:49] LABS: Glucose Point of Care 142 mg/dL (70-110)
[2022-08-19 02:05] LABS: Albumin Level 3.3 g/dL (3.5-5.2); Alkaline Phosphatase 101 U/L (35-105); Anion Gap 16.1 (5-19); Aspartate Amino Transferase 292 U/L (0-32); Blood Urea Nitrogen 55 mg/dL (8-23); Calcium 8.7 mg/dL (8.5-10.5); Carbon Dioxide 22 mmol/L (22-29); Chloride 100 mmol/L (98-107); Globulin 1.4 g/dL (1.3-4.6); Glucose 131 mg/dL (65-115); Osmolality Calculated 295 mOsm/kg (285-295); Potassium 4.1 mmol/L (3.5-5.1); Sodium 134 mmol/L (136-145); Total Bilirubin 3.3 mg/dL (0.15-1.2); Total Protein 4.7 g/dL (6.6-8.7)
[2022-08-19] MEDS: levalbuterol 0.63 mg/3 mL Neb INHALATION ×4 (02:11→20:06)
[2022-08-19] MEDS: ipratropium 0.5 mg/2.5 mL Neb INHALATION ×4 (02:11→20:06)
[2022-08-19 02:17] LABS: Alanine Aminotransferase 1580 U/L (0-33)
[2022-08-19 02:54] LABS: Glucose Point of Care 142 mg/dL (70-110)
[2022-08-19 04:09] LABS: Glucose Point of Care 152 mg/dL (70-110)
[2022-08-19 05:03] LABS: Glucose Point of Care 170 mg/dL (70-110)
[2022-08-19 05:33] LABS: INR 1.45 (0.8-1.2); Partial Thromboplastin Time 24.4 SECONDS (23.9-36.7)
[2022-08-19 05:34] LABS: Fibrinogen 265 mg/dL (174-498)
[2022-08-19] MEDS: meropenem 1,000 MG in sodium chloride 0.9% (plus) 50 ML 100 MG IV ×2 (05:35→17:14)
[2022-08-19] MEDS: pantoprazole 40 mg SDV IVP ×2 (05:35→17:21)
--- NOTE | 2022-08-19 06:00 | PM.PN ---
Subjective Subjective: remains intubated, tachycardic Vitals/I&O/Wt Last Vital Signs Temp 97.8 F 08/18/22 20:00 Pulse 143 H 08/19/22 03:15 Resp 15 08/19/22 05:37 BP 93/62 08/19/22 03:15 Pulse Ox 95 08/19/22 05:37 O2 Del Method Mechanical Ventilation 08/18/22 19:52 O2 Flow Rate 40 08/18/22 16:08 FiO2 40 08/19/22 05:37 08/18/22 08/18/22 08/19/22 14:59 22:59 06:59 Intake Total 1357.402 / 8253.914 6014.309 / 2996.711 415.467 / 3412.178 Output Total 1325 / 1325 995 / 2320 900 / 3220 Balance 32.402 / 32.402 644.309 / 676.711 -484.533 / 192.178 Weight last 48 hrs Weight 171.458 kg Weight 165.561 kg Physical Exam Urinary Catheter Management: Zurita: Cath Placed During This Visit: yes Reason for Continuing Indwelling Catheter: Accurate Measurement of Urinary Output in Critically Ill Patients Urinary Catheter Date of Insertion: 08/14/22 Urinary Catheter Time of Insertion: 14:10 Data 08/19/22 10:16 08/19/22 10:16 Other data: seen via telemedicine with assistance of RN at bedside A&P Assessment and plan (1) Hyponatremia: Plan 1. Acute nonoliguric kidney injury due to sepsis. Renal function stable, good urine output 2. Shock liver 3. Anemia, Hb stable 4. Hyperglycemia, on insulin gtt 5. Hyponatremia, improved Recommend: Continue supportive care. Attestations Medical Necessity Statement*: critically ill in ICU Time Spent in Patient Care: 16 - 35 minutes Coding Level of Care Code Acute Code for [facility] Fwd Diagnoses Hyponatremia E87.1
[2022-08-19 06:07] LABS: Glucose Point of Care 161 mg/dL (70-110)
[2022-08-19 07:18] LABS: Glucose Point of Care 158 mg/dL (70-110)
--- NOTE | 2022-08-19 07:23 | PC.NURSE ---
Patient incision dressing intact with no drainage noted. JESUS drain of 250. Patient hasn't had any changes.
[2022-08-19] MEDS: budesonide 0.5 mg/2 mL Neb INHALATION ×2 (07:46→20:06)
--- NOTE | 2022-08-19 07:55 | PC.SOCIAL ---
IMM update IMM not updated as patient remains intubated and not expected to dc in 24-48 hours.
[2022-08-19] MEDS: levothyroxine 100 mcg SDV IVP (09:16)
[2022-08-19 09:19] LABS: Glucose Point of Care 184 mg/dL (70-110)
[2022-08-19] MEDS: hydrocortisone 100 mg/2 mL SDV 50 MG IVP ×3 (09:21→20:06)
--- NOTE | 2022-08-19 09:57 | PC.NURSE ---
HR Dr. Ramos at bedside and aware HR has been 140s-150s sustained overnight and throughout this shift. Patient on amiodarone gtt. No new orders unless blood pressure can't maintain.
--- NOTE | 2022-08-19 10:18 | PM.PN ---
Subjective Subjective: Patient was seen and examined, currently she is off pressors, s/p: Exploratory laparotomy. On 08/18. Medications: Reviewed: Yes Medication Review Details: Generic Name Dose Route Start Last Admin Trade Name Freq PRN Reason Stop Dose Admin Al Hydrox/Mg [place] x/Simethicone 30 ml 08/14/22 17:00 08/14/22 17:16 [id number] de-Michel 30 Ml Udc PO 30 ml Q4H PRN Administration INDIGESTION Budesonide 0.5 mg 08/14/22 20:00 08/19/22 07:46 Budesonide 0.5 M g/2 Ml Neb INHALATION 0.5 mg BID.RESPIRATORY S CH Administration Chlorhexidine Gluc ila 1 applic 08/17/22 21:10 08/17/22 23:14 Chlorhexidine Gl uconate 4% Btl 118 Ml TOPICAL 1 applic DAILY PRN Administration Bed bath while in tubated. Hydrocortisone Sod ium Succinate 50 mg 08/19/22 08:02 08/19/22 09:21 Hydrocortisone 1 00 Mg/2 Ml Sdv IVP 50 mg Q6H RAMIRO Administration Hydromorphone HCl 1 mg 08/14/22 23:32 08/18/22 21:09 Hydromorphone 1 Mg/Ml Inj 1 Ml IVP 1 mg Q2H PRN Administration PAIN Meropenem 1,000 mg / Sodium 50 mls @ 100 mls/ hr 08/14/22 18:00 08/19/22 09:24 Chloride IV Infused Q12H RAMIRO Infusion Protocol Vancomycin/PEG/NAD A/Lysine/Water 2,000 mg in 400 m ls @ 200 mls/hr 08/14/22 23:00 08/19/22 03:25 Vancocin IV Infused Q48H RAMIRO Infusion Propofol 1,000 mg in 100 m ls @ 0 mls/hr 08/14/22 23:30 08/16/22 06:05 Diprivan IV Infused .Q0M RAMIRO Titration Protocol Per Protocol Vasopressin 100 un it/ Sodium 100 mls @ 0 mls/h r 08/15/22 00:45 08/17/22 02:15 Chloride IV Infused .Q0M RAMIRO Titration Protocol Per Protocol Norepinephrine Bit artrate 8 mg 508 mls @ 0 mls/h r 08/15/22 01:00 08/18/22 04:54 / Dextrose IV 2 mcg/min .Q0M RAMIRO 7.62 mls/hr Titration Protocol Per Protocol Phenylephrine HCl 25 mg/ 252.5 mls @ 0 mls /hr 08/15/22 01:45 08/15/22 15:40 Sodium Chloride IV Infused .Q0M RAMIRO Titration Protocol Per Protocol Midazolam HCl 100 mg/ Sodium 100 mls @ 0 mls/h r 08/15/22 05:30 08/19/22 10:18 Chloride IV 0 mg/hr .Q0M RAMIRO 0 mls/hr Titration Protocol Per Protocol Phenylephrine HCl 50 mg/ 505 mls @ 0 mls/h r 08/15/22 15:00 08/17/22 19:00 Sodium Chloride IV Infused .Q0M RAMIRO Titration Protocol Per Protocol Amiodarone HCl 900 mg/ 518 mls @ 34.533 mls/hr 08/16/22 21:03 08/19/22 09:25 Dextrose/ IV Misce llaneous IV 1 mg/min Supplies CONT RAMIRO 34.53 mls/hr Administration 1 MG/MIN Insulin Human Regu lar 250 unit 252.5 mls @ 0 mls /hr 08/18/22 08:30 08/19/22 09:40 / Sodium Chlorid e IV 6.2 unit/hr .Q0M RAMIRO 6.26 mls/hr Titration Protocol Per Protocol Ipratropium Bromid e 0.5 mg 08/15/22 08:00 08/19/22 07:46 Ipratropium 0.5 Mg/2.5 Ml Neb INHALATION 0.5 mg Q6H.RESP RAMIRO Administration Levalbuterol HCl 0.63 mg 08/14/22 20:00 08/19/22 07:46 Levalbuterol 0.6 3 Mg/3 Ml Neb INHALATION 0.63 mg Q6H.RESP RAMIRO Administration Levothyroxine Sodi um 100 mcg 08/18/22 09:00 08/19/22 09:16 Levothyroxine 10 0 Mcg Sdv IVP 100 mcg DAILY RAMIRO Administration Morphine Sulfate 2 mg 08/14/22 17:15 08/17/22 22:47 Morphine 4 Mg/Ml Sdv 1 Ml IVP 2 mg Q4H PRN Administration SEVERE PAIN Ondansetron HCl 4 mg 08/14/22 17:15 08/14/22 21:39 Ondansetron 2 Mg /Ml Sdv 2 Ml IVP 4 mg Q6H PRN Administration vomiting, or N/V if npo Pantoprazole Sodiu m 40 mg 08/14/22 17:00 08/19/22 05:35 Pantoprazole 40 Mg Sdv IVP 40 mg Q12H RAMIRO Administration Pramipexole Dihydr ochloride 1 mg 08/14/22 21:00 08/18/22 21:01 Pramipexole 0.25 Mg Tablet PO Not Given BEDTIME RAMIRO Promethazine HCl 12.5 mg 08/14/22 16:58 08/14/22 17:16 Promethazine 25 Mg/Ml Sdv 1 Ml IM 12.5 mg Q6H PRN Administration NAUSEA Sodium Bicarbonate 50 meq 08/16/22 13:15 08/16/22 14:28 Sodium Bicarbona te 1 Meq/Ml Sdv 50 ml IVP 50 meq ONCE PRN Administration Sodium Chloride 50 ml 08/18/22 13:30 08/18/22 17:00 Sodium Chloride 0.9% 100 Ml Bag IV 08/19/22 13:30 50 ml PRN PRN Administration Blood transfusion prime and flush Sucralfate 1 gm 08/14/22 17:00 08/19/22 06:01 Sucralfate 1 Gm/ 10 Ml Oral Liq Udc PO Not Given AC&BEDTIME RAMIRO Vitals/I&O/Wt Last Vital Signs Temp 98.6 F 08/19/22 09:00 Pulse 149 H 08/19/22 09:30 Resp 14 08/19/22 09:30 BP 91/60 08/19/22 09:30 Pulse Ox 94 08/19/22 09:30 O2 Del Method Mechanical Ventilation 08/19/22 09:30 O2 Flow Rate 40 08/18/22 16:08 FiO2 40 08/19/22 09:30 08/18/22 08/19/22 08/19/22 22:59 06:59 14:59 Intake Total 1639.309 / 2996.711 415.467 / 3412.178 689.646 / 689.646 Output Total 995 / 2320 900 / 3220 80 / 80 Balance 644.309 / 676.711 -484.533 / 192.178 609.646 / 609.646 Weight last 48 hrs Weight 171.458 kg Physical Exam Narrative: Intubated sedated on mechanical ventilation. HENMT: COMMON NORMALS: normocephalic and atraumatic HEAD & SCALP: normocephalic and atraumatic Resp: COMMON NORMALS: clear to auscultation bilaterally AUSCULTATION: clear to auscultation bilaterally Cardio: COMMON NORMALS: regular rate, regular rhythm, S1 normal heart sound present, S2 normal heart sound present, No gallops present (Cardio), No murmurs present (Cardio), No rub (Cardio) and Peripheral pulses 2+ throughout RATE: regular rate RHYTHM: regular rhythm HEART SOUNDS: S1 normal heart sound present and S2 normal heart sound present PERIPHERAL PULSES: Peripheral pulses 2+ throughout GI: OTHER: wound vac in place Extremity: COMMON NORMALS: no clubbing, cyanosis or edema and no pedal edema Urinary Catheter Management: Zurita: Cath Placed During This Visit: yes Reason for Continuing Indwelling Catheter: Accurate Measurement of Urinary Output in Critically Ill Patients Urinary Catheter Date of Insertion: 08/14/22 Urinary Catheter Time of Insertion: 14:10 Data 08/19/22 10:16 08/19/22 10:16 A&P Assessment and plan (1) Shock: (2) Adrenal crisis syndrome: (3) Paroxysmal atrial fibrillation with RVR: (4) Abdominal pain: (5) Nausea & vomiting: (6) Acute kidney injury superimposed on chronic kidney disease: (7) Chronic steroid use: (8) Obesity: (9) Hypothyroid: (10) Diabetes: Stop oral hypoglycemics Suicide insulin moderate dose protocol before meals and at bedtime. (11) Chronic kidney disease, stage 3a: (12) Hyperaldosteronism: (13) Elevated troponin: (14) Lactic acidosis: (15) Asymptomatic bacteriuria: (16) Cardiac resynchronization therapy defibrillator ([employer] FABRICATOR-D) in place: Placed on 08/08 at outside hospital. Will request documents from outpatient cyanide case hardener Dr. Moody from [place]. Empiric antibiotics for now as above. Continue to monitor. (17) Acute blood loss anemia: (18) Hyponatremia: (19) Thrombocytopenia: (20) Shock liver: Plan 72 year old female with past medical history of congestive diastolic heart failure, chronic intermittent atrial fibrillation post radiofrequency ablation, CAD, hypertension, hypothyroidism, hypopituitarism on chronic steroids, pulmonary hypertension, obstructive sleep apnea who was recently discharged from [facility] after [employer]RIC[employer]-D implantation on Monday.?Patient presented to the ER today with epigastric abdominal cramps. Currently she is being managed for. Assessment: Septic shock: Secondary to ischemic necrosis of large intestine with GI translocation. CT chest abdomen and pelvis: There is subcutaneous emphysema along the left chest wall especially superior and deep to the pacemaker.?Ischemic cecum and ascending colon with pneumatosis in the bowel wall and gas within the adjacent draining veins. Portal venous gas. There is skin thickening and mild edema of the subcutaneous fat of the lower abdominal wall/pannus that may reflect cellulitis. No fluid collection or abscess. Random cortisol:3.71 Blood culture: NTD Urine culture: Urine Legionella antigen negative Bacterial panel negative Lactic acid:3 Was on high dose of multiple pressors (Levophed phenylephrine and vasopressin),Currently on levophed. Currently on stress dose of steroid hydrocortisone 100 mg IV every 6h Empirically on broad-spectrum antibiotic vancomycin and meropenem Ischemic necrosis of large intestine: Given her prior history of prior paroxysmal atrial fibrillation possibility of embolic episode exist. S/p laparoscopy with conversion to exploratory laparotomy and right hemicolectomy. s/p: Exploratory laparotomy. On 08/18 Surgery on board. RODRIGUE on CKD: Secondary to septic shock Baseline creatinine 1.2. Admission serum creatinine 2.4 Monitor BMP Intake output charting Continue IV hydration Avoid nephrotoxic Nephrology on board Refractory metabolic acidosis: Secondary to sepsis, RODRIGUE, Was on bicarb drip I am hoping that with improvement in severe metabolic acidosis, pressors requirement should also come down. Monitor serum BMP Monitor ABG Acute Anemia: S/P 6 unit PRBC Monitor H&H Transfuse to keep hemoglobin greater than 7 Likely patient was developing fulminant hepatic failure: Secondary to shock liver: Secondary to severe hypotension secondary to sepsis: Currently has shown significant improvement. ULT Abdomen: Has shown cholelithiasis without evidence of acute cholecystitis, though it is a limited evaluation, hepatomegaly. Initially AST ALT alk phos was significantly elevated: Has came down significantly. Monitor CMP for now Hyper bilirubinemia: Could be part of shock liver. Acalculous cholecystitis is unlikely. Total bilirubin 3.3, direct bilirubin 2.6. Thrombocytopenia: Possibly secondary to sepsis Monitor for possibly developing DIC 4T Score: Reviewed Review peripheral blood smear S/P 5 U Platelets S/P 8FFP A-fib with RVR: Currently on amnio drip Continue telemetry monitoring Not a candidate for anticoagulation now History of diabetes: Was on insulin drip, currently on medium dose sliding scale insulin Goal is for tight glucose control (FSG ranging from 160-180 ) Hypothyroidism: Continue levothyroxine hypopituitarism on chronic steroids Currently on hydrocortisone CODE STATUS: Full code DVT prophylaxis on SCD Disposition: SLECT LTACH has been approached. Given the possibility of prolonged recovery. Attestations Medical Necessity Statement*: In Hospital for management of septic shock Coding Level of Care Code Acute Code for Chg Fwd Diagnoses Shock R57.9 Adrenal crisis syndrome E27.2 Paroxysmal atrial fibrillation with RVR I48.0 Abdominal pain R10.9 Nausea & vomiting R11.2 Acute kidney injury superimposed on chronic kidney disease N17.9; N18.9 Chronic steroid use Obesity E66.9 Hypothyroid E03.9 Diabetes E11.9 Chronic kidney disease, stage 3a N18.31 Hyperaldosteronism E26.9 Elevated troponin R77.8 Lactic acidosis E87.20 Asymptomatic bacteriuria R82.71 Cardiac resynchronization therapy defibrillator (C[employer] FABRICATOR-D) in place Z95.810 Acute blood loss anemia D62 Hyponatremia E87.1 Thrombocytopenia D69.6 Shock liver K72.00
[2022-08-19 10:26] LABS: Basophils # 0.1 10^3/uL (0.0-0.1); Basophils % 0.5 %; Eosinophils # 0.1 10^3/uL (0.0-0.8); Eosinophils % 0.4 %; Hematocrit 29.4 % (37.0-47.0); Hemoglobin 9.7 g/dL (11.5-15.3); Lymphocytes # 0.5 10^3/uL (0.8-4.8); Lymphocytes % 2.1 %; Mean Corpuscular Hemoglobin 27.6 pg (28.0-34.0); Mean Corpuscular Volume 83.5 fl (81-99); Monocytes # 1.6 10^3/uL (0.2-0.9); Monocytes % 6.4 %; Neutrophils # 20.55 10^3/uL (1.8-7.7); Neutrophils % 84.3 %; Nucleated Red Blood Cells # 0.9 /100WBC; Nucleated Red Blood Cells % 3.6 %; Platelet Count 79 10^3/cmm (130-400); Red Blood Count 3.52 10^6/uL (4.1-5.3); Red Cell Distribution Width 17.4 % (12.1-15.1); White Blood Count 24.4 10^3/uL (4.0-10.0)
[2022-08-19 10:38] LABS: Glucose Point of Care 172 mg/dL (70-110)
[2022-08-19 10:46] LABS: Albumin Level 3.3 g/dL (3.5-5.2); Alkaline Phosphatase 110 U/L (35-105); Aspartate Amino Transferase 217 U/L (0-32); Blood Urea Nitrogen 61 mg/dL (8-23); Calcium 8.3 mg/dL (8.5-10.5); Carbon Dioxide 23 mmol/L (22-29); Chloride 96 mmol/L (98-107); Globulin 1.4 g/dL (1.3-4.6); Glucose 255 mg/dL (65-115); Osmolality Calculated 300 mOsm/kg (285-295); Sodium 132 mmol/L (136-145); Total Bilirubin 3.1 mg/dL (0.15-1.2); Total Protein 4.7 g/dL (6.6-8.7)
[2022-08-19 10:48] LABS: Creatinine Clr Calc Pharmacy 35.6606
[2022-08-19 10:57] LABS: Alanine Aminotransferase 1387 U/L (0-33)
[2022-08-19 11:01] LABS: Slide Review Slide Review Perform
[2022-08-19 11:44] LABS: Glucose Point of Care 174 mg/dL (70-110)
[2022-08-19] MEDS: sucralfate 1 gm/10 mL Oral Liq UDC PO ×2 (12:27→17:21)
[2022-08-19 12:57] LABS: Glucose Point of Care 182 mg/dL (70-110)
--- NOTE | 2022-08-19 13:04 | PC.NUTR ---
Pt is NPO x 4 days. If medically appropriate, recommend consideration of Glucerna 1.2 beginning at 10 mls/hr and increasing 10 mls Q8H as tolerated until goal rate of 60 mls/hr is reached, with fresh water flushes of 100 mls Q4H or per MD discretion. Details in RD assessment.
[2022-08-19 14:31] LABS: Glucose Point of Care 191 mg/dL (70-110)
[2022-08-19 16:26] LABS: Glucose Point of Care 186 mg/dL (70-110)
--- NOTE | 2022-08-19 16:48 | PM.PN ---
Subjective Subjective: Patient seen and examined. She had a small blood-streaked bowel movement. She is only on 2 mcg of Levophed. Vitals/I&O/Wt Last Vital Signs Temp 98.6 F 08/19/22 09:00 Pulse 152 H 08/19/22 15:00 Resp 18 08/19/22 16:22 BP 91/58 08/19/22 15:00 Pulse Ox 93 08/19/22 16:22 O2 Del Method Mechanical Ventilation 08/19/22 15:00 O2 Flow Rate 40 08/18/22 16:08 FiO2 40 08/19/22 16:22 08/19/22 08/19/22 08/19/22 06:59 14:59 22:59 Intake Total 415.467 / 3412.178 807.138 / 807.138 4.9 / 812.038 Output Total 900 / 3220 530 / 530 75 / 605 Balance -484.533 / 192.178 277.138 / 277.138 -70.1 / 207.038 Weight last 48 hrs Weight 382 lb 5 oz Weight 378 lb Physical Exam Narrative: General: Intubated/sedated Abdomen soft, moderately distended, no grimace to palpation Incision intact without erythema or exudate Drain cloudy and serosanguineous Urinary Catheter Management: Zurita: Cath Placed During This Visit: yes Reason for Continuing Indwelling Catheter: Accurate Measurement of Urinary Output in Critically Ill Patients Urinary Catheter Date of Insertion: 08/14/22 Urinary Catheter Time of Insertion: 14:10 Data 08/19/22 10:16 08/19/22 10:16 Micro: Microbiology 08/14/22 14:50 Blood Culture - Final Blood NO GROWTH AFTER 5 DAYS 08/14/22 14:57 Blood Culture - Final Blood NO GROWTH AFTER 5 DAYS A&P Assessment and plan (1) DIC (disseminated intravascular coagulation): (2) Acute blood loss anemia: (3) Ischemic necrosis of large intestine: (4) Septic shock: Plan Status post exploratory laparotomy x3 with multiple resections of ischemic bowel followed by ileocolic anastomosis and abdominal closure She is essentially off of vasopressors now and already had a bowel movement Vent weaning and medical management per hospitalist We will follow Attestations Medical Necessity Statement*: Per hospitalist Coding Level of Care Code Acute Code for Chg Fwd Diagnoses DIC (disseminated intravascular coagulation) D65 Acute blood loss anemia D62 Ischemic necrosis of large intestine K55.049 Septic shock A41.9; R65.21
[2022-08-19] MEDS: insulin regular-human 250 UNIT in sodium chloride 0.9% 250 ML 6.57 UNIT IV (17:20)
[2022-08-19] MEDS: metoprolol tartrate 1 mg/1 mL SDV 5 mL 2.5 MG IVP ×2 (17:35→18:30)
[2022-08-19 18:21] LABS: Basophils # 0.1 10^3/uL (0.0-0.1); Basophils % 0.5 %; Hematocrit 29.1 % (37.0-47.0); Hemoglobin 9.5 g/dL (11.5-15.3); Lymphocytes # 0.6 10^3/uL (0.8-4.8); Lymphocytes % 2.3 %; Mean Corpuscular HGB Conc 32.6 g/dL (30.0-36.0); Mean Corpuscular Hemoglobin 27.4 pg (28.0-34.0); Mean Corpuscular Volume 83.9 fl (81-99); Mean Platelet Volume 10.5 fL (7.4-10.4); Monocytes # 1.7 10^3/uL (0.2-0.9); Monocytes % 7.1 %; Neutrophils # 19.78 10^3/uL (1.8-7.7); Neutrophils % 82.1 %; Nucleated Red Blood Cells # 0.8 /100WBC; Nucleated Red Blood Cells % 3.4 %; Platelet Count 80 10^3/cmm (130-400); Red Blood Count 3.47 10^6/uL (4.1-5.3); Red Cell Distribution Width 17.5 % (12.1-15.1); White Blood Count 24.1 10^3/uL (4.0-10.0)
[2022-08-19 18:34] LABS: Glucose Point of Care 164 mg/dL (70-110)
[2022-08-19 18:39] LABS: Slide Review Slide Review Perform
[2022-08-19 18:48] LABS: Alkaline Phosphatase 106 U/L (35-105); Anion Gap 15.9 (5-19); Aspartate Amino Transferase 168 U/L (0-32); Blood Urea Nitrogen 63 mg/dL (8-23); Calcium 7.9 mg/dL (8.5-10.5); Carbon Dioxide 23 mmol/L (22-29); Chloride 95 mmol/L (98-107); Globulin 1.5 g/dL (1.3-4.6); Glucose 291 mg/dL (65-115); Osmolality Calculated 299 mOsm/kg (285-295); Potassium 3.9 mmol/L (3.5-5.1); Sodium 130 mmol/L (136-145); Total Bilirubin 2.9 mg/dL (0.15-1.2); Total Protein 4.5 g/dL (6.6-8.7)
[2022-08-19 18:49] LABS: Magnesium 2.3 mg/dL (1.7-2.3)
[2022-08-19 18:53] LABS: Creatinine Clr Calc Pharmacy 35.6606
[2022-08-19 18:59] LABS: Alanine Aminotransferase 1137 U/L (0-33)
[2022-08-19 20:28] LABS: Glucose Point of Care 160 mg/dL (70-110)
[2022-08-19 21:03] LABS: Glucose Point of Care 157 mg/dL (70-110)
[2022-08-19 22:11] LABS: Glucose Point of Care 160 mg/dL (70-110)
[2022-08-19 23:02] LABS: Glucose Point of Care 164 mg/dL (70-110)
[2022-08-20] VITALS (107 sets, daily range): BP systolic 84–116; BP diastolic 54–74; PULSE 148–161; RESP 14–20; TEMP 36.8–37.1; O2SAT 91–96; BMI 63.8
[2022-08-20] LABS: Glucose Point of Care 166 mg/dL (70-110)
[2022-08-20 01:04] LABS: Glucose Point of Care 172 mg/dL (70-110)
[2022-08-20 02:01] LABS: Glucose Point of Care 158 mg/dL (70-110)
[2022-08-20] MEDS: hydrocortisone 100 mg/2 mL SDV 50 MG IVP ×4 (02:20→20:11)
[2022-08-20] MEDS: levalbuterol 0.63 mg/3 mL Neb INHALATION (03:24)
[2022-08-20] MEDS: ipratropium 0.5 mg/2.5 mL Neb INHALATION (03:24)
[2022-08-20 04:30] LABS: Glucose Point of Care 159 mg/dL (70-110)
[2022-08-20] MEDS: pantoprazole 40 mg SDV IVP ×2 (05:00→16:50)
[2022-08-20] MEDS: meropenem 1,000 MG in sodium chloride 0.9% (plus) 50 ML 100 MG IV ×2 (05:20→16:50)
[2022-08-20 06:01] LABS: Glucose Point of Care 176 mg/dL (70-110)
--- NOTE | 2022-08-20 06:22 | PM.PN ---
Subjective Subjective: sedation turned off yesterday, no movement or withdrawal to pain per RN Vitals/I&O/Wt Last Vital Signs Temp 98.4 F 08/20/22 04:00 Pulse 152 H 08/20/22 06:00 Resp 18 08/20/22 06:07 BP 116/74 08/20/22 04:00 Pulse Ox 94 08/20/22 06:07 O2 Del Method Mechanical Ventilation 08/20/22 03:24 O2 Flow Rate 40 08/18/22 16:08 FiO2 40 08/20/22 06:07 08/19/22 08/19/22 08/20/22 14:59 22:59 06:59 Intake Total 807.138 / 807.138 367.548 / 1174.686 704.165 / 1878.851 Output Total 530 / 530 1085 / 1615 450 / 2065 Balance 277.138 / 277.138 -717.452 / -440.314 254.165 / -186.149 Weight last 48 hrs Weight 173.414 kg Weight 171.458 kg Physical Exam Extremity: GENERAL: Yes edema Urinary Catheter Management: Zurita: Cath Placed During This Visit: yes Reason for Continuing Indwelling Catheter: Accurate Measurement of Urinary Output in Critically Ill Patients Urinary Catheter Date of Insertion: 08/14/22 Urinary Catheter Time of Insertion: 14:10 Data 08/20/22 09:23 08/20/22 09:23 Micro: Microbiology 08/14/22 14:50 Blood Culture - Final Blood NO GROWTH AFTER 5 DAYS 08/14/22 14:57 Blood Culture - Final Blood NO GROWTH AFTER 5 DAYS Other data: sen via telemedicine with assistance of RN at bedside A&P Assessment and plan (1) Hyponatremia: Plan 1. Acute nonoliguric kidney injury due to sepsis. Renal function stable, good urine output 2. Shock liver 3. Anemia, Hb stable 4. Hyperglycemia, on insulin gtt 5. Hyponatremia, improved Recommend: Continue supportive care. Attestations Medical Necessity Statement*: see above Time Spent in Patient Care: 16 - 35 minutes Coding Level of Care Code Acute Code for Chg Fwd Diagnoses Hyponatremia E87.1
[2022-08-20 07:35] LABS: Glucose Point of Care 148 mg/dL (70-110)
[2022-08-20 08:10] LABS: Glucose Point of Care 167 mg/dL (70-110)
[2022-08-20] MEDS: levothyroxine 100 mcg SDV IVP (08:57)
[2022-08-20 09:20] LABS: Glucose Point of Care 149 mg/dL (70-110)
[2022-08-20 09:35] LABS: Hematocrit 31.9 % (37.0-47.0); Hemoglobin 10.2 g/dL (11.5-15.3); Mean Corpuscular Hemoglobin 26.9 pg (28.0-34.0); Mean Corpuscular Volume 84.2 fl (81-99); Mean Platelet Volume 11.3 fL (7.4-10.4); Platelet Count 89 10^3/cmm (130-400); Red Blood Count 3.79 10^6/uL (4.1-5.3); White Blood Count 20.8 10^3/uL (4.0-10.0)
[2022-08-20 09:58] LABS: Albumin Level 2.8 g/dL (3.5-5.2); Alkaline Phosphatase 119 U/L (35-105); Anion Gap 16.1 (5-19); Aspartate Amino Transferase 121 U/L (0-32); Blood Urea Nitrogen 70 mg/dL (8-23); Calcium 8.3 mg/dL (8.5-10.5); Carbon Dioxide 23 mmol/L (22-29); Chloride 99 mmol/L (98-107); Globulin 1.9 g/dL (1.3-4.6); Glucose 259 mg/dL (65-115); Osmolality Calculated 307 mOsm/kg (285-295); Potassium 4.1 mmol/L (3.5-5.1); Sodium 134 mmol/L (136-145); Total Bilirubin 2.9 mg/dL (0.15-1.2); Total Protein 4.7 g/dL (6.6-8.7)
[2022-08-20] MEDS: HYDROmorphone 1 mg/mL INJ 1 mL IVP ×2 (09:59→19:57)
[2022-08-20 10:03] LABS: Absolute Neutrophil 17.7 10^3/cmm (1.4-6.5); Absolute Segmented Neutrophil 16.2 10/cmm (1.6-7.1); Band Neutrophils Absolute 1.5 10^3/cmm (0.0-1.2); Corrected White Blood Count 19.6 10^3/cmm (4.8-10.8); Eosinophils 0 %; Lymphocytes 4 %; Lymphocytes Absolute 1.2 10^3/cmm (1.2-3.4); Monocytes Absolute 1.9 10^3/cmm (0.1-0.6); Platelet Estimate Decreased (Normal); Segmented Neutrophils 78 %; Slide Review Slide Review Perform; Total Cells Counted 100 (0-100)
[2022-08-20 10:20] LABS: Alanine Aminotransferase 902 U/L (0-33)
[2022-08-20 10:30] LABS: Glucose Point of Care 169 mg/dL (70-110)
--- NOTE | 2022-08-20 10:51 | PM.PN ---
Subjective Subjective: Patient seen and examined. She is off all sedation and has not woken up yet. She is on 1 sathish of Levophed currently. Vitals/I&O/Wt Last Vital Signs Temp 98.7 F 08/20/22 07:00 Pulse 152 H 08/20/22 09:30 Resp 18 08/20/22 09:59 BP 90/61 08/20/22 09:00 Pulse Ox 94 08/20/22 09:59 O2 Del Method Mechanical Ventilation 08/20/22 09:30 O2 Flow Rate 40 08/18/22 16:08 FiO2 40 08/20/22 07:59 08/19/22 08/20/22 08/20/22 22:59 06:59 14:59 Intake Total 367.548 / 1174.686 704.165 / 1878.851 14.10 / 14.10 Output Total 1085 / 1615 450 / 2065 50 / 50 Balance -717.452 / -440.314 254.165 / -186.149 -35.90 / -35.90 Weight last 48 hrs Weight 382 lb 5 oz Physical Exam Narrative: General: Intubated, not arousable Abdomen soft, nondistended, no guarding or rebound Incision intact without erythema or exudate, there is some blood and fat necrosis coming from the wound without any odor Drain serosanguineous Urinary Catheter Management: Zurita: Cath Placed During This Visit: yes Reason for Continuing Indwelling Catheter: Accurate Measurement of Urinary Output in Critically Ill Patients Urinary Catheter Date of Insertion: 08/14/22 Urinary Catheter Time of Insertion: 14:10 Data 08/20/22 09:23 08/20/22 09:23 Micro: Microbiology 08/14/22 14:50 Blood Culture - Final Blood NO GROWTH AFTER 5 DAYS 08/14/22 14:57 Blood Culture - Final Blood NO GROWTH AFTER 5 DAYS A&P Assessment and plan (1) DIC (disseminated intravascular coagulation): (2) Acute blood loss anemia: (3) Ischemic necrosis of large intestine: (4) Septic shock: Plan Status post exploratory laparotomy x3 with multiple resections of ischemic bowel followed by ileocolic anastomosis and abdominal closure She is essentially off of vasopressors now and already had a bowel movement She has a new bandemia today which is concerning. Drain is serosanguineous. Vent weaning and medical management per hospitalist Will follow Attestations Medical Necessity Statement*: per primary Coding Level of Care Code Acute Code for Chg Fwd Diagnoses DIC (disseminated intravascular coagulation) D65 Acute blood loss anemia D62 Ischemic necrosis of large intestine K55.049 Septic shock A41.9; R65.21
[2022-08-20 11:57] LABS: Glucose Point of Care 145 mg/dL (70-110)
[2022-08-20 12:47] LABS: Glucose Point of Care 141 mg/dL (70-110)
[2022-08-20 13:50] LABS: Glucose Point of Care 146 mg/dL (70-110)
[2022-08-20 14:35] LABS: Glucose Point of Care 139 mg/dL (70-110)
[2022-08-20 15:35] LABS: Glucose Point of Care 145 mg/dL (70-110)
--- NOTE | 2022-08-20 15:53 | ECG_ITS ---
[facility] Test Date: 2022-08-20 Pat Name: Carolyn Alexander Department: Room: ICU07 Gender: Female Physician Relations Representative: : [id number] Requested By: Justo Ramos Order Number: [id number] Marina MD: Bahman Rowland M.D. Measurements Intervals [place] Rate: 154 P: 0 NE: 0 QRS: -42 QRSD: 127 T: 110 QT: 337 QTc: 540 Interpretive Statements ATRIAL FLUTTER WITH RAPID VENTRICULAR RESPONSE LEFT AXIS DEVIATION [QRS AXIS < -30] MODERATE INTRAVENTRICULAR CONDUCTION DELAY [110+ ms QRS DURATION] ST ELEVATION, CONSIDER INFERIOR INJURY [MARKED ST ELEVATION W/O NORMALLY INFLECTED T-WAVE IN II/aVF] ACUTE [place] Compared to ECG 08/14/2022 20:00:26 Intraventricular conduction delay now present ST (T wave) deviation now present Atrial fibrillation no longer present Aberrant conduction of supraventricular beat(s) no longer present Ventricular premature complex(es) no longer present Myocardial infarct finding still present Electronically Signed On 08-21-2022 8:03:30 CDT by Bahman Rowland M.D. [email or web address]
--- NOTE | 2022-08-20 15:56 | P.PN_ITS ---
Subjective Subjective: Patient was seen and examined, this morning, persistently tachycardic, with heart rate in the 150s, requiring minimum of Levophed, patient sedation was turned off yesterday morning, currently with GCS of sedation is 3T. She is not withdrawing to pain, has no spontaneous eye-opening. Current plan is to continue to hold sedation, do a CT head without contrast tomorrow in the morning, if patient fails to awake. Medications: Reviewed: Yes Medication Review Details: Generic Name Dose Route Start Last Admin Trade Name Freq PRN Reason Stop Dose Admin Al Hydrox/Mg [place] x/Simethicone 30 ml 08/14/22 17:00 08/14/22 17:16 Kxzm-Mtc-Xidzysx de-Michel 30 Ml Udc PO 30 ml Q4H PRN Administration INDIGESTION Budesonide 0.5 mg 08/14/22 20:00 08/20/22 08:03 Budesonide 0.5 M g/2 Ml Neb INHALATION Not Given BID.RESPIRATORY S CH Chlorhexidine Gluc ila 1 applic 08/17/22 21:10 08/17/22 23:14 Chlorhexidine Gl uconate 4% Btl 118 Ml TOPICAL 1 applic DAILY PRN Administration Bed bath while in tubated. Hydrocortisone Sod ium Succinate 50 mg 08/19/22 08:02 08/20/22 15:19 Hydrocortisone 1 00 Mg/2 Ml Sdv IVP 50 mg Q6H RAMIRO Administration Hydromorphone HCl 1 mg 08/14/22 23:32 08/20/22 09:59 Hydromorphone 1 Mg/Ml Inj 1 Ml IVP 1 mg Q2H PRN Administration PAIN Meropenem 1,000 mg / Sodium 50 mls @ 100 mls/ hr 08/14/22 18:00 08/20/22 05:50 Chloride IV Infused Q12H RAMIRO Infusion Protocol Vancomycin/PEG/NAD A/Lysine/Water 2,000 mg in 400 m ls @ 200 mls/hr 08/14/22 23:00 08/19/22 03:25 Vancocin IV Infused Q48H RAMIRO Infusion Propofol 1,000 mg in 100 m ls @ 0 mls/hr 08/14/22 23:30 08/16/22 06:05 Diprivan IV Infused .Q0M RAMIRO Titration Protocol Per Protocol Vasopressin 100 un it/ Sodium 100 mls @ 0 mls/h r 08/15/22 00:45 08/17/22 02:15 Chloride IV Infused .Q0M RAMIRO Titration Protocol Per Protocol Norepinephrine Bit artrate 8 mg 508 mls @ 0 mls/h r 08/15/22 01:00 08/20/22 11:10 / Dextrose IV 2 mcg/min .Q0M RAMIRO 7.62 mls/hr Titration Protocol Per Protocol Phenylephrine HCl 25 mg/ 252.5 mls @ 0 mls /hr 08/15/22 01:45 08/15/22 15:40 Sodium Chloride IV Infused .Q0M RAMIRO Titration Protocol Per Protocol Midazolam HCl 100 mg/ Sodium 100 mls @ 0 mls/h r 08/15/22 05:30 08/19/22 10:18 Chloride IV 0 mg/hr .Q0M RAMIRO 0 mls/hr Titration Protocol Per Protocol Phenylephrine HCl 50 mg/ 505 mls @ 0 mls/h r 08/15/22 15:00 08/17/22 19:00 Sodium Chloride IV Infused .Q0M RAMIRO Titration Protocol Per Protocol Amiodarone HCl 900 mg/ 518 mls @ 34.533 mls/hr 08/16/22 21:03 08/20/22 14:56 Dextrose/ IV Misce llaneous IV 0.5 mg/min Supplies CONT RAMIRO 17.27 mls/hr Administration 1 MG/MIN Insulin Human Regu lar 250 unit 252.5 mls @ 0 mls /hr 08/18/22 08:30 08/20/22 15:33 / Sodium Chlorid e IV 2.55 unit/hr .Q0M RAMIRO 2.58 mls/hr Titration Protocol Per Protocol Ipratropium Bromid e 0.5 mg 08/15/22 08:00 08/20/22 13:31 Ipratropium 0.5 Mg/2.5 Ml Neb INHALATION Not Given Q6H.RESP RAMIRO Levalbuterol HCl 0.63 mg 08/14/22 20:00 08/20/22 13:31 Levalbuterol 0.6 3 Mg/3 Ml Neb INHALATION Not Given Q6H.RESP RAMIRO Levothyroxine Sodi um 100 mcg 08/18/22 09:00 08/20/22 08:57 Levothyroxine 10 0 Mcg Sdv IVP 100 mcg DAILY RAMIRO Administration Morphine Sulfate 2 mg 08/14/22 17:15 08/17/22 22:47 Morphine 4 Mg/Ml Sdv 1 Ml IVP 2 mg Q4H PRN Administration SEVERE PAIN Ondansetron HCl 4 mg 08/14/22 17:15 08/14/22 21:39 Ondansetron 2 Mg /Ml Sdv 2 Ml IVP 4 mg Q6H PRN Administration vomiting, or N/V if npo Pantoprazole Sodiu m 40 mg 08/14/22 17:00 08/20/22 05:00 Pantoprazole 40 Mg Sdv IVP 40 mg Q12H RAMIRO Administration Pramipexole Dihydr ochloride 1 mg 08/14/22 21:00 08/19/22 20:44 Pramipexole 0.25 Mg Tablet PO Not Given BEDTIME RAMIRO Promethazine HCl 12.5 mg 08/14/22 16:58 08/14/22 17:16 Promethazine 25 Mg/Ml Sdv 1 Ml IM 12.5 mg Q6H PRN Administration NAUSEA Sodium Bicarbonate 50 meq 08/16/22 13:15 08/16/22 14:28 Sodium Bicarbona te 1 Meq/Ml Sdv 50 ml IVP 50 meq ONCE PRN Administration Sucralfate 1 gm 08/14/22 17:00 08/20/22 12:23 Sucralfate 1 Gm/ 10 Ml Oral Liq Udc PO Not Given AC&BEDTIME RAMIRO Vitals/I&O/Wt Last Vital Signs Temp 98.3 F 08/20/22 13:15 Pulse 152 H 08/20/22 14:24 Resp 18 08/20/22 14:11 BP 88/69 08/20/22 14:00 Pulse Ox 94 08/20/22 14:11 O2 Del Method Mechanical Ventilation 08/20/22 14:00 O2 Flow Rate 40 08/18/22 16:08 FiO2 40 08/20/22 14:11 08/20/22 08/20/22 08/20/22 06:59 14:59 22:59 Intake Total 704.165 / 1878.851 578.389 / 578.389 3.137 / 581.526 Output Total 450 / 2065 350 / 350 80 / 430 Balance 254.165 / -186.149 228.389 / 228.389 -76.863 / 151.526 Weight last 48 hrs Weight 173.896 kg Weight 173.414 kg Physical Exam HENMT: COMMON NORMALS: normocephalic and atraumatic HEAD & SCALP: normocephalic and atraumatic Resp: COMMON NORMALS: clear to auscultation bilaterally AUSCULTATION: clear to auscultation bilaterally Cardio: COMMON NORMALS: regular rate, regular rhythm, S1 normal heart sound present, S2 normal heart sound present, No gallops present (Cardio), No murmurs present (Cardio), No rub (Cardio) and Peripheral pulses 2+ throughout RATE: regular rate RHYTHM: regular rhythm HEART SOUNDS: S1 normal heart sound present and S2 normal heart sound present PERIPHERAL PULSES: Peripheral pulses 2+ throughout GI: OTHER: wound vac in place Extremity: COMMON NORMALS: no clubbing, cyanosis or edema and no pedal edema Urinary Catheter Management: Zurita: Cath Placed During This Visit: yes Reason for Continuing Indwelling Catheter: Accurate Measurement of Urinary Output in Critically Ill Patients Urinary Catheter Date of Insertion: 08/14/22 Urinary Catheter Time of Insertion: 14:10 Data 08/20/22 09:23 08/20/22 09:23 Micro: Microbiology 08/14/22 14:50 Blood Culture - Final Blood NO GROWTH AFTER 5 DAYS 08/14/22 14:57 Blood Culture - Final Blood NO GROWTH AFTER 5 DAYS A&P Assessment and plan (1) Shock: (2) Adrenal crisis syndrome: (3) Paroxysmal atrial fibrillation with RVR: (4) Abdominal pain: (5) Nausea & vomiting: (6) Acute kidney injury superimposed on chronic kidney disease: (7) Chronic steroid use: (8) Obesity: (9) Hypothyroid: (10) Diabetes: Stop oral hypoglycemics Suicide insulin moderate dose protocol before meals and at bedtime. (11) Chronic kidney disease, stage 3a: (12) Hyperaldosteronism: (13) Elevated troponin: (14) Lactic acidosis: (15) Asymptomatic bacteriuria: (16) Cardiac resynchronization therapy defibrillator (ELECTRON[employer]ISHING [employer]IST-D) in place: Placed on 08/08 at outside hospital. Will request documents from outpatient dinkey brakeman Dr. Moody from [place]. Empiric antibiotics for now as above. Continue to monitor. 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 after E[employer]-D implantation on Monday.?Patient presented to the ER today with epigastric abdominal cramps. Currently she is being managed for. Assessment: Septic shock: Secondary to ischemic necrosis of large intestine with GI translocation. CT chest abdomen and pelvis: There is subcutaneous emphysema along the left ch est wall especially superior and deep to the pacemaker.?Ischemic cecum and ascending colon with pneu matosis in the bowel wall and gas within the adjacent draining veins. Portal venous gas. There is skin thickening and mild edema of the subcutaneous fat of the lower abdominal wall/pannus that may reflect cellulitis. No fluid collection or abscess. Random cortisol:3.71 Blood culture: NTD Urine culture: Urine Legionella antigen negative Bacterial panel negative Lactic acid:3 Was on high dose of multiple pressors (Levophed phenylephrine and vasopressin),Currently on levophed. Currently on stress dose of steroid hydrocortisone 100 mg IV every 6h Empirically on broad-spectrum antibiotic vancomycin and meropenem Ischemic necrosis of large intestine: Given her prior history of prior paroxysmal atrial fibrillation possibility of embolic episode exist. S/p laparoscopy with conversion to exploratory laparotomy and right hemicolectomy. s/p: Exploratory laparotomy. On 08/18 Surgery on board. RODRIGUE on CKD: Secondary to septic shock Baseline creatinine 1.2. Admission serum creatinine 2.4 Monitor BMP Intake output charting Continue IV hydration Avoid nephrotoxic Nephrology on board Refractory metabolic acidosis: Secondary to sepsis, RODRIGUE, Was on bicarb drip I am hoping that with improvement in severe metabolic acidosis, pressors requirement should also come down. Monitor serum BMP Monitor ABG Acute Anemia: S/P 6 unit PRBC Monitor H&H Transfuse to keep hemoglobin greater than 7 Likely patient was developing fulminant hepatic failure: Secondary to shock liver: Secondary to severe hypotension secondary to sepsis: Currently has shown significant improvement. ULT Abdomen: Has shown cholelithiasis without evidence of acute cholecystitis, though it is a limited evaluation, hepatomegaly. Initially AST ALT alk phos was significantly elevated: Has came down significantly. Monitor CMP for now Hyper bilirubinemia: Could be part of shock liver. Acalculous cholecystitis is unlikely. Total bilirubin 3.3, direct bilirubin 2.6. Thrombocytopenia: Possibly secondary to sepsis Monitor for possibly developing DIC 4T Score: Reviewed Review peripheral blood smear S/P 5 U Platelets S/P 8FFP A-fib with RVR: Currently on amnio drip Continue telemetry monitoring Not a candidate for anticoagulation now History of diabetes: Was on insulin drip, currently on medium dose sliding scale insulin Goal is for tight glucose control (FSG ranging from 160-180 ) Hypothyroidism: Continue levothyroxine hypopituitarism on chronic steroids Currently on hydrocortisone CODE STATUS: Full code DVT prophylaxis on SCD Disposition: SLECT LTACH has been approached. Given the possibility of prolonged recovery. Attestations Medical Necessity Statement*: Needs to be in hospital for management of septic shock. Coding Level of Care Code Acute Code for Chg Fwd Diagnoses Shock R57.9 Adrenal crisis syndrome E27.2 Paroxysmal atrial fibrillation with RVR I48.0 Abdominal pain R10.9 Nausea & vomiting R11.2 Acute kidney injury superimposed on chronic kidney disease N17.9; N18.9 Chronic steroid use Obesity E66.9 Hypothyroid E03.9 Diabetes E11.9 Chronic kidney disease, stage 3a N18.31 Hyperaldosteronism E26.9 Elevated troponin R77.8 Lactic acidosis E87.20 Asymptomatic bacteriuria R82.71 Cardiac resynchronization therapy defibrillator (ELECTRONIC PUBLISHING SPECIALIST-D) in place Z95.810 Acute blood loss anemia D62 Hyponatremia E87.1 Thrombocytopenia D69.6 Shock liver K72.00
[2022-08-20 16:46] LABS: Glucose Point of Care 143 mg/dL (70-110)
[2022-08-20 17:39] LABS: Glucose Point of Care 154 mg/dL (70-110)
[2022-08-20 18:46] LABS: Glucose Point of Care 163 mg/dL (70-110)
[2022-08-20] MEDS: vancomycin 2,000 MG/400 ML PIGGYBACK 200 MG IV (22:39)
[2022-08-21] VITALS (92 sets, daily range): BP systolic 78–121; BP diastolic 40–75; PULSE 110–168; RESP 17–32; TEMP 37.2–38.1; O2SAT 81–100; BMI 63.2
[2022-08-21 02:17] LABS: Glucose Point of Care 165 mg/dL (70-110)
[2022-08-21 02:17] LABS: Glucose Point of Care 162 mg/dL (70-110)
[2022-08-21 02:17] LABS: Glucose Point of Care 147 mg/dL (70-110)
[2022-08-21 02:17] LABS: Glucose Point of Care 159 mg/dL (70-110)
[2022-08-21 02:17] LABS: Glucose Point of Care 156 mg/dL (70-110)
[2022-08-21 02:17] LABS: Glucose Point of Care 160 mg/dL (70-110)
[2022-08-21] MEDS: hydrocortisone 100 mg/2 mL SDV 50 MG IVP ×3 (02:17→19:33)
[2022-08-21] MEDS: HYDROmorphone 1 mg/mL INJ 1 mL IVP ×2 (02:17→15:17)
[2022-08-21 04:31] LABS: Basophils % 0.2 %; Hemoglobin 13.1 g/dL (11.5-15.3); Lymphocytes # 0.8 10^3/uL (0.8-4.8); Lymphocytes % 3.7 %; Mean Corpuscular Hemoglobin 26.6 pg (28.0-34.0); Mean Corpuscular Volume 83.3 fl (81-99); Mean Platelet Volume 10.9 fL (7.4-10.4); Monocytes # 1.6 10^3/uL (0.2-0.9); Monocytes % 7.8 %; Neutrophils # 16.37 10^3/uL (1.8-7.7); Neutrophils % 79.8 %; Nucleated Red Blood Cells # 2.2 /100WBC; Nucleated Red Blood Cells % 10.7 %; Platelet Count 164 10^3/cmm (130-400); Red Blood Count 4.92 10^6/uL (4.1-5.3); White Blood Count 20.5 10^3/uL (4.0-10.0)
[2022-08-21 04:43] LABS: Slide Review Slide Review Perform
[2022-08-21 04:50] LABS: Alanine Aminotransferase 652 U/L (0-33); Albumin Level 2.7 g/dL (3.5-5.2); Alkaline Phosphatase 139 U/L (35-105); Anion Gap 22.8 (5-19); Aspartate Amino Transferase 88 U/L (0-32); Calcium 8.8 mg/dL (8.5-10.5); Carbon Dioxide 17 mmol/L (22-29); Chloride 99 mmol/L (98-107); Globulin 2.4 g/dL (1.3-4.6); Glomerular Filtration Rate 14.9 mL/min (90-130); Glucose 191 mg/dL (65-115); Osmolality Calculated 309 mOsm/kg (285-295); Potassium 4.8 mmol/L (3.5-5.1); Sodium 134 mmol/L (136-145); Total Bilirubin 3.9 mg/dL (0.15-1.2); Total Protein 5.1 g/dL (6.6-8.7)
[2022-08-21 04:59] LABS: Blood Urea Nitrogen 85 mg/dL (8-23)
[2022-08-21] MEDS: pantoprazole 40 mg SDV IVP ×2 (06:06→17:11)
[2022-08-21] MEDS: meropenem 1,000 MG in sodium chloride 0.9% (plus) 50 ML 100 MG IV ×2 (06:07→17:11)
[2022-08-21 06:20] LABS: Glucose Point of Care 194 mg/dL (70-110)
[2022-08-21 06:20] LABS: Glucose Point of Care 195 mg/dL (70-110)
[2022-08-21 06:20] LABS: Glucose Point of Care 186 mg/dL (70-110)
[2022-08-21 06:20] LABS: Glucose Point of Care 190 mg/dL (70-110)
[2022-08-21 07:23] LABS: Glucose Point of Care 173 mg/dL (70-110)
--- NOTE | 2022-08-21 07:25 | PC.NURSE ---
Dr. Palomo and Dr. Ramos notified of patient change in status. Patient heart rate in 170's, blood pressure soft on 14mcg/min. Dark brown foul smelling drainage from abdominal drain. Dr. Palomo plans for Ex Lap this morning.
--- NOTE | 2022-08-21 07:40 | PM.PN ---
Subjective Subjective: deteriorated over night, returned to OR for exploratory lap, now on 2 pressors Vitals/I&O/Wt Last Vital Signs Temp 99.1 F 08/21/22 04:00 Pulse 159 H 08/21/22 06:00 Resp 22 H 08/21/22 06:27 BP 82/62 08/21/22 06:00 Pulse Ox 91 08/21/22 06:27 O2 Del Method Mechanical Ventilation 08/21/22 02:49 O2 Flow Rate 40 08/18/22 16:08 FiO2 40 08/21/22 06:27 08/20/22 08/21/22 08/21/22 22:59 06:59 14:59 Intake Total 111.091 / 689.480 611.315 / 1300.795 50 / 50 Output Total 490 / 840 220 / 1060 90 / 90 Balance -378.909 / -150.520 391.315 / 240.795 -40 / -40 Weight last 48 hrs Weight 172.365 kg Weight 173.896 kg Weight 173.414 kg Physical Exam Urinary Catheter Management: Zurita: Cath Placed During This Visit: yes Reason for Continuing Indwelling Catheter: Accurate Measurement of Urinary Output in Critically Ill Patients Urinary Catheter Date of Insertion: 08/14/22 Urinary Catheter Time of Insertion: 14:10 Data 08/21/22 08:50 08/21/22 04:12 Other data: seen via telemedicine with assistance of RN at bedside A&P Assessment and plan (1) Hyponatremia: Plan 1. Acute nonoliguric kidney injury due to sepsis. Renal function has declined, blood pressure lower 2. Shock liver 3. Hyponatremia, improved Recommend: Continue supportive care. check vancomycin level Attestations Medical Necessity Statement*: see above Time Spent in Patient Care: 16 - 35 minutes Coding Level of Care Code Acute Code for Chg Fwd Diagnoses Hyponatremia E87.1
[2022-08-21] MEDS: norepinephrine 8 MG in dextrose 5 % 500 ML 68.58 MG IV ×2 (07:50→15:14)
--- NOTE | 2022-08-21 07:59 | PM.PN ---
Subjective Subjective: JESUS this morning turned black and foul-smelling Vitals/I&O/Wt Last Vital Signs Temp 99.1 F 08/21/22 04:00 Pulse 159 H 08/21/22 06:00 Resp 22 H 08/21/22 06:27 BP 82/62 08/21/22 06:00 Pulse Ox 91 08/21/22 06:27 O2 Del Method Mechanical Ventilation 08/21/22 02:49 O2 Flow Rate 40 08/18/22 16:08 FiO2 40 08/21/22 06:27 08/20/22 08/21/22 08/21/22 22:59 06:59 14:59 Intake Total 111.091 / 689.480 611.315 / 1300.795 111.585 / 111.585 Output Total 490 / 840 220 / 1060 90 / 90 Balance -378.909 / -150.520 391.315 / 240.795 21.585 / 21.585 Weight last 48 hrs Weight 380 lb Weight 383 lb 6 oz Weight 382 lb 5 oz Physical Exam Urinary Catheter Management: Zurita: Cath Placed During This Visit: yes Reason for Continuing Indwelling Catheter: Accurate Measurement of Urinary Output in Critically Ill Patients Urinary Catheter Date of Insertion: 08/14/22 Urinary Catheter Time of Insertion: 14:10 Data 08/21/22 04:12 08/21/22 04:12 A&P Assessment and plan (1) Ischemia, bowel: (2) Multiorgan failure: Plan Exploratory laparotomy, possible bowel resection The risks and benefits of the procedure, including but not limited to, bleeding, infection, scar, numbness, pain, damage to surrounding structures, need for further surgery, anastomotic leak and were explicitly explained to the . He is understanding of the risks and wishes to proceed. Attestations Medical Necessity Statement*: Patient will require multiple more nights in the hospital for intensive care following exploratory laparotomy Coding Level of Care Code Acute Code for Chg Fwd Diagnoses Ischemia, bowel K55.9 Multiorgan failure
[2022-08-21 08:05] LABS: Glucose Point of Care 189 mg/dL (70-110)
--- NOTE | 2022-08-21 08:11 | PC.NURSE ---
Patient in care of surgery team at this time.
[2022-08-21 09:08] LABS: ABG PCO2 48.1 mmHg (35-45); Alveolar-Arterial Oxygen Gradi 74.4 mmHg (5-10); Arterial Blood Gas Hematocrit 44.1 % (37-47); Base Excess ABG -10.4 mmol/L (-2.0-2.0); Blood Gas Operator Identificat glc; Blood Gas Sample Type Arterial; Carboxyhemoglobin 1.2 %THgb (0.4-20.1); HGB O2 Sat 92.4 % (95-100); Ionized Calcium Level - ABG 1.1 mmol/L (1.1-1.4); Methemoglobin 0.8 % (0.4-1.5); Oxygen Device VENT; Oxygen Saturation ABG 94.2; PO2 ABG 83.2 mmHg (80.0-100.0); Potassium Level - ABG 5.3 mmol/L (3.5-5.0); Total Hemoglobin 14.4 g/dL (12-16)
[2022-08-21 09:12] LABS: ABG PH Result 7.18 (7.35-7.45)
[2022-08-21 09:15] LABS: Hematocrit 43.5 % (37.0-47.0); Hemoglobin 13.5 g/dL (11.5-15.3); Mean Corpuscular Hemoglobin 26.7 pg (28.0-34.0); Mean Corpuscular Volume 86.1 fl (81-99); Mean Platelet Volume 11.3 fL (7.4-10.4); Platelet Count 169 10^3/cmm (130-400); Red Blood Count 5.05 10^6/uL (4.1-5.3); Red Cell Distribution Width 19.2 % (12.1-15.1); White Blood Count 21.1 10^3/uL (4.0-10.0)
[2022-08-21 09:37] LABS: INR 1.56 (0.8-1.2)
[2022-08-21 09:38] LABS: Partial Thromboplastin Time 28.8 SECONDS (23.9-36.7)
[2022-08-21 09:44] LABS: Absolute Neutrophil 16.7 10^3/cmm (1.4-6.5); Absolute Segmented Neutrophil 11.6 10/cmm (1.6-7.1); Band Neutrophils Absolute 5.1 10^3/cmm (0.0-1.2); Corrected White Blood Count 17.3 10^3/cmm (4.8-10.8); Eosinophils 0 %; Lymphocytes 5 %; Lymphocytes Absolute 2.5 10^3/cmm (1.2-3.4); Monocytes Absolute 1.3 10^3/cmm (0.1-0.6); Platelet Estimate Normal (Normal); Segmented Neutrophils 55 %; Total Cells Counted 0 (0-100)
[2022-08-21 09:45] LABS: Platelet Count 169 10^3/cmm (130-400)
[2022-08-21 09:49] LABS: Fibrinogen 642 mg/dL (174-498)
--- NOTE | 2022-08-21 09:50 | PM.OP ---
Operative Report Date of procedure: August 21, 2022 Pre-op diagnosis: Ischemic bowel Post-op diagnosis: other (Ischemic and necrotic large and small bowel) Procedure done: Exploratory laparotomy Resection of ileocolic anastomosis Partial colon resection Implants: ABThera wound VAC Specimens removed/disposition: Ileocolic anastomosis Partial descending colectomy Surgeon: Dr. Abdoul Palomo DO Anesthesia: General Estimated blood loss (mL): 5 Complications: None apparent Brief History: This is a very pleasant 72-year-old female who has previously undergone 3 exploratory laparotomies with bowel resections during this hospital stay. She was found to have black stool in her drain this morning, indicative of bowel. Exploratory laparotomy and possible bowel resection was indicated. The risks and benefits, including but not limited to, bleeding, infection, scar, numbness, pain, bowel resection, anastomotic leak, abdomen being left in discontinuity, , were explained to the patient's who gave consent. Procedure: Patient was wheeled in operative room placed on the OR table in the supine position. The abdomen was inspected prepped and draped in usual sterile fashion. The 19 [address] [place] drain was removed from the abdomen. A timeout was performed. All present were in agreement. General anesthesia was achieved by the department of anesthesia. [place] were removed and suture scissors were used to cut the PDS holding her abdomen closed. Suture was removed. There was copious amounts of stool suctioned. There were also pills in the abdomen. The distal ileum was ischemic with areas of necrosis. The proximal remaining colon was also ischemic and necrotic. A KIM stapler 100 mm blue load was used to transect the ileum just proximal to the area of most obvious ischemia. The KIM stapler was similarly used on the colon side. There was further ischemia of the descending colon and the KIM stapler was used to resect a small portion of additional descending colon. Specimens were passed off. 8 L of warm saline were used to wash the abdomen until clear. There were a couple additional areas of dusky small bowel that I decided not to resect at this time. Patient was left in discontinuity with the intention to bring the patient back in 24 to 48 hours for repeat exploratory laparotomy. The ABThera wound VAC system was placed into the abdomen and put to 125 mmHg of suction. Patient was then brought back to the intensive care unit
[2022-08-21 10:13] LABS: Glucose Point of Care 160 mg/dL (70-110)
--- NOTE | 2022-08-21 10:34 | PC.NURSE ---
Patient returned to icu 7 from OR at 0958. See OR documentation for procedure and medications given in OR. See MAR for drip titration of insulin, vasopressin, levophed.
[2022-08-21 10:49] LABS: ABG PCO2 34.9 mmHg (35-45); ABG PH Result 7.35 (7.35-7.45); Arterial Blood Gas Hematocrit 39.2 % (37-47); Base Excess ABG -5.5 mmol/L (-2.0-2.0); Blood Gas Allen Test Pos; Blood Gas Sample Type Arterial; Carboxyhemoglobin 1.3 %THgb (0.4-20.1); HCO3 ABG 19.3 mmol/L (22-26); HGB O2 Sat 94.9 % (95-100); Ionized Calcium Level - ABG 1.3 mmol/L (1.1-1.4); Oxygen Saturation ABG 97.1; PO2 ABG 91.3 mmHg (80.0-100.0); Total Hemoglobin 12.8 g/dL (12-16)
[2022-08-21 10:50] LABS: Alveolar-Arterial Oxygen Gradi 47.2 mmHg (5-10); Blood Gas Operator Identificat MONRO; Blood Gas Sample Site ART LINE; Blood Gas Tidal Volume 0.45; Oxygen Device VENT
[2022-08-21 11:04] LABS: Glucose Point of Care 133 mg/dL (70-110)
[2022-08-21] MEDS: levothyroxine 100 mcg SDV IVP (11:07)
--- NOTE | 2022-08-21 11:59 | ANES.PAUD2 ---
Pre-Anesthetic Update Pre-Anesthetic Assessment: Date of Surgery/Procedure: 08/21/22 Proposed Procedure: Operation Date: 08/14/22 21:25 Proposed Procedures p Exploratory Laparotomy(Not Applicable) - Abdoul Palomo DO Operation Date: 08/16/22 15:30 Proposed Procedures p Exploratory Laparotomy poss. bowel resection(Not Applicable) - Abdoul Palomo DO s poss. Bowel Resection(Not Applicable) - Abdoul Palomo DO Operation Date: 08/18/22 14:20 Proposed Procedures p Exploratory Laparotomy(Not Applicable) - Abdoul Palomo, DO s Possible Small Bowel Resection(Not Applicable) - Abdoul Palomo DO Operation Date: 08/21/22 08:30 Proposed Procedures p Exploratory Laparotomy(Not Applicable) - Abdoul Palomo, DO Any changes to Pre-Anesthetic Assessment?: No Labs Last 48hrs: Short CBC 08/19/22 08/20/22 08/21/22 Range/Units 18:04 09: 04:12 WBC 24.1 H 20.8 H 20.5 H (4.0-10.0) 10^3/ uL Hgb 9.5 L 10.2 L 13.1 (11.5-15.3) g/dL Hct 29.1 L 31.9 L 41.0 (37.0-47.0) % MCV 83.9 84.2 83.3 (81-99) fl Plt Count 80 L 89 L 164 D (130-400) 10^3/c mm Neut % (Auto) 82.1 79.8 % Neut # (Auto) 19.78 H 16.37 H (1.8-7.7) 10^3/u L 08/21/22 08/21/22 Range/Units 08:50 08:50 WBC 21.1 H (4.0-10.0) 10^3/ uL Hgb 13.5 (11.5-15.3) g/dL Hct 43.5 (37.0-47.0) % MCV 86.1 (81-99) fl Plt Count 169 169 (130-400) 10^3/c mm Neut % (Auto) % Neut # (Auto) (1.8-7.7) 10^3/u L BMP 08/19/22 08/20/22 08/21/22 18:04 09:23 04:12 Sodium 130 L 134 L 134 L Potassium 3.9 4.1 4.8 Chloride 95 L 99 99 Carbon Dioxide 23 23 17 L BUN 63 H 70 H 85 H* Creatinine 2.4 H 2.5 H 3.1 H Glucose 291 H 259 H 191 H Calcium 7.9 L 8.3 L 8.8 Liver Function 08/19/22 08/20/22 08/21/22 Range/Units 18:04 09:23 04:12 Total Bilirubin 2.9 H 2.9 H 3.9 H (0.15-1.2) mg/dL AST 168 H 121 H 88 H (0-32) U/L ALT 1137 H 902 H 652 H (0-33) U/L Alkaline Phosphata se 106 H 119 H 139 H (35-105) U/L Albumin 3.0 L 2.8 L 2.7 L (3.5-5.2) g/dL Coags 08/21/22 08:50 PT 19.20 H INR 1.56 H APTT 28.8 Fibrinogen 642 H ABG 08/21/22 08/21/22 08:50 10:37 Specimen Type Arterial Arterial Sample Site Art line ABG pH 7.18 L* 7.35 ABG pCO2 48.1 H 34.9 L ABG pO2 83.2 91.3 ABG HCO3 18.0 L 19.3 L ABG O2 Saturation 94.2 97.1 ABG Base Excess -10.4 L -5.5 L A-a O2 Gradient 74.4 H 47.2 H O2 Delivery Device Vent Vent FiO2 100.0 70.0 Tidal Volume 0.45 PEEP 8.0 Vitals: Temperature 99.1 F 08/21/22 04:00 Temperature Source Axillary 08/21/22 04:00 Pulse Rate 159 H 08/21/22 08:00 Pulse Rhythm Regular 08/21/22 08:00 Pulse Strength 3+ Normal 08/21/22 08:00 Respiratory Rate 17 08/21/22 10:02 Respiratory Effort Spontaneous, Non- Labored, Mechanica lly Ventilated 08/21/22 08:00 Respiratory Depth Normal 08/21/22 08:00 Respiratory Patter n Normal 08/20/22 19:57 Blood Pressure 96/75 08/21/22 07:15 Blood Pressure [place] n 82 08/21/22 07:15 Blood Pressure Pos ition Supine 08/18/22 12:52 Pulse Oximetry 96 08/21/22 10:02 Oxygen Delivery Me thod Mechanical Ventil ation 08/21/22 08:00 Oxygen Flow Rate 40 08/18/22 16:08 Fraction of Inspir ed Oxygen 80 08/21/22 10:02 Sepsis Recent Feve r Within 48 Hours No 08/14/22 14:09 Exam: Additional Exam Findings (including area of procedure): Intubated/sedated in ICU, cont'd critical illness, hypotension, tachycardia. ASA 4E Cardiac Studies: Echocardiogram 01/04/22 Echocardiogram Limited Views 06/02/22 Transesophageal Echocardiogram 08/04/21 Cardiac Event Monitor 01/05/21
--- NOTE | 2022-08-21 12:01 | ANES.PROC ---
Anesthesia Procedures Procedure/Date: 08/21/22 Arterial Line: Time Out Performed: Yes Consent: requested by attending/covering physician, from patient, risks and benefits reviewed and patient agrees to proceed Size (Gauge): 20 Technique Used: guide wire technique Post-Procedure: line sutured into place and dry sterile dressing placed Patient Tolerated Procedure: well Complications: none Site: right and femoral Additional Comments: Sterile prep and drape, seldinger technique with ultrasound guidance. Very difficult given her size and habitus.
--- NOTE | 2022-08-21 12:03 | P.ANESPOST_ITS ---
Inpatient post-anesthesia follow up: Airway intact: Yes (ETT) Vital signs: Temperature 99.1 F Pulse Rate 159 Respiratory Rate 17 Blood Pressure 96/75 Pulse Oximetry 96 Oxygen Delivery Me thod [ Room Air Current Rate & Del zelda] Oxygen Delivery Me thod Mechanical Ventila tion Oxygen Flow Rate 40 Fraction of Inspir ed Oxygen 80 Hydration adequate: Yes Nausea and vomiting: No Mental status: Altered ( Sedated) Additional Comments: Intubated and sedated to ICU.
[2022-08-21 12:22] LABS: Glucose Point of Care 120 mg/dL (70-110)
[2022-08-21] MEDS: micafungin 150 MG in sodium chloride 0.9% (100 ml) 100 ML 100 MG IV (12:28)
[2022-08-21] MEDS: sodium chloride 0.9% 500 ML IV (12:31)
[2022-08-21 13:31] LABS: Glucose Point of Care 124 mg/dL (70-110)
--- NOTE | 2022-08-21 15:39 | P.PN_ITS ---
Subjective Subjective: Patient was seen and examined this morning unfortunately she had eventful night, she was hypotensive, increasing vasopressor requirement, she was also significantly tachycardic. Medications: Reviewed: Yes Medication Review Details: Generic Name Dose Route Start Last Admin Trade Name Freq PRN Reason Stop Dose Admin Al Hydrox/Mg Whitney x/Simethicone 30 ml 08/14/22 17:00 08/14/22 17:16 Tyns-Ync-Htiotbw de-Michel 30 Ml Udc PO 30 ml Q4H PRN Administration INDIGESTION Budesonide 0.5 mg 08/14/22 20:00 08/21/22 08:14 Budesonide 0.5 M g/2 Ml Neb INHALATION Not Given BID.RESPIRATORY S CH Chlorhexidine Gluc ila 1 applic 08/17/22 21:10 08/17/22 23:14 Chlorhexidine Gl uconate 4% Btl 118 Ml TOPICAL 1 applic DAILY PRN Administration Bed bath while in tubated. Hydrocortisone Sod ium Succinate 50 mg 08/19/22 08:02 08/21/22 15:08 Hydrocortisone 1 00 Mg/2 Ml Sdv IVP 50 mg Q6H RAMIRO Administration Hydromorphone HCl 1 mg 08/14/22 23:32 08/21/22 15:17 Hydromorphone 1 Mg/Ml Inj 1 Ml IVP 1 mg Q2H PRN Administration PAIN Meropenem 1,000 mg / Sodium 50 mls @ 100 mls/ hr 08/14/22 18:00 08/21/22 07:35 Chloride IV Infused Q12H RAMIRO Infusion Protocol Vancomycin/PEG/NAD A/Lysine/Water 2,000 mg in 400 m ls @ 200 mls/hr 08/14/22 23:00 08/21/22 01:46 Vancocin IV Infused Q48H RAMIRO Infusion Propofol 1,000 mg in 100 m ls @ 0 mls/hr 08/14/22 23:30 08/16/22 06:05 Diprivan IV Infused .Q0M RAMIRO Titration Protocol Per Protocol Vasopressin 100 un it/ Sodium 100 mls @ 0 mls/h r 08/15/22 00:45 08/21/22 14:50 Chloride IV 0 unit/min .Q0M RAMIRO 0 mls/hr Titration Protocol Per Protocol Norepinephrine Bit artrate 8 mg 508 mls @ 0 mls/h r 08/15/22 01:00 08/21/22 15:14 / Dextrose IV 18 mcg/min .Q0M RAMIRO 68.58 mls/hr Administration Protocol Per Protocol Phenylephrine HCl 25 mg/ 252.5 mls @ 0 mls /hr 08/15/22 01:45 08/15/22 15:40 Sodium Chloride IV Infused .Q0M RAMIRO Titration Protocol Per Protocol Midazolam HCl 100 mg/ Sodium 100 mls @ 0 mls/h r 08/15/22 05:30 08/19/22 10:18 Chloride IV 0 mg/hr .Q0M RAMIRO 0 mls/hr Titration Protocol Per Protocol Phenylephrine HCl 50 mg/ 505 mls @ 0 mls/h r 08/15/22 15:00 08/21/22 14:33 Sodium Chloride IV 100 mcg/min .Q0M RAMIRO 60.6 mls/hr Administration Protocol Per Protocol Amiodarone HCl 900 mg/ 518 mls @ 34.533 mls/hr 08/16/22 21:03 08/20/22 14:56 Dextrose/ IV Misce llaneous IV 0.5 mg/min Supplies CONT RAMIRO 17.27 mls/hr Administration 1 MG/MIN Insulin Human Regu lar 250 unit 252.5 mls @ 0 mls /hr 08/18/22 08:30 08/21/22 12:00 / Sodium Chlorid e IV 1.2 unit/hr .Q0M RAMIRO 1.21 mls/hr Titration Protocol Per Protocol Norepinephrine Bit artrate 4 mg 254 mls @ 0 mls/h r 08/20/22 11:15 08/21/22 07:50 / Dextrose IV Infused .Q0M RAMIRO Titration Protocol Per Protocol Sodium Chloride 500 mls @ 5 mls/h r 08/21/22 11:15 08/21/22 12:31 Sodium Chloride 0.9% IV 5 mls/hr .Q24H RAMIRO Administration Micafungin Sodium 150 mg/ 100 mls @ 100 mls /hr 08/21/22 12:00 08/21/22 13:42 Sodium Chloride IV Infused Q24H RAMIRO Infusion Ipratropium Bromid e 0.5 mg 08/15/22 08:00 08/21/22 13:18 Ipratropium 0.5 Mg/2.5 Ml Neb INHALATION Not Given Q6H.RESP RAMIRO Levalbuterol HCl 0.63 mg 08/14/22 20:00 08/21/22 13:18 Levalbuterol 0.6 3 Mg/3 Ml Neb INHALATION Not Given Q6H.RESP RAMIRO Levothyroxine Sodi um 100 mcg 08/18/22 09:00 08/21/22 11:07 Levothyroxine 10 0 Mcg Sdv IVP 100 mcg DAILY RAMIRO Administration Morphine Sulfate 2 mg 08/14/22 17:15 08/17/22 22:47 Morphine 4 Mg/Ml Sdv 1 Ml IVP 2 mg Q4H PRN Administration SEVERE PAIN Ondansetron HCl 4 mg 08/14/22 17:15 08/14/22 21:39 Ondansetron 2 Mg /Ml Sdv 2 Ml IVP 4 mg Q6H PRN Administration vomiting, or N/V if npo Pantoprazole Sodiu m 40 mg 08/14/22 17:00 08/21/22 06:06 Pantoprazole 40 Mg Sdv IVP 40 mg Q12H RAMIRO Administration Pramipexole Dihydr ochloride 1 mg 08/14/22 21:00 08/20/22 19:40 Pramipexole 0.25 Mg Tablet PO Not Given BEDTIME RAMIRO Promethazine HCl 12.5 mg 08/14/22 16:58 08/14/22 17:16 Promethazine 25 Mg/Ml Sdv 1 Ml IM 12.5 mg Q6H PRN Administration NAUSEA Sodium Bicarbonate 50 meq 08/16/22 13:15 08/16/22 14:28 Sodium Bicarbona te 1 Meq/Ml Sdv 50 ml IVP 50 meq ONCE PRN Administration Sucralfate 1 gm 08/14/22 17:00 08/21/22 11:04 Sucralfate 1 Gm/ 10 Ml Oral Liq Udc PO Not Given AC&BEDTIME [facility] Vitals/I&O/Wt Last Vital Signs Temp 99.0 F 08/21/22 11:45 Pulse 161 H 08/21/22 13:17 Resp 32 H 08/21/22 15:17 BP 96/75 08/21/22 07:15 Pulse Ox 95 08/21/22 15:17 O2 Del Method Mechanical Ventilation 08/21/22 13:17 O2 Flow Rate 40 08/18/22 16:08 FiO2 60 08/21/22 13:17 08/21/22 08/21/22 08/21/22 06:59 14:59 22:59 Intake Total 611.315 / 1300.795 721.850 / 721.850 22.225 / 744.075 Output Total 220 / 1060 90 / 90 Balance 391.315 / 240.795 631.850 / 631.850 22.225 / 654.075 Weight last 48 hrs Weight 172.365 kg Weight 172.365 kg Weight 173.896 kg Physical Exam Narrative: Intubated sedated on mechanical ventilation. HENMT: COMMON NORMALS: normocephalic and atraumatic HEAD & SCALP: normocephalic and atraumatic Resp: COMMON NORMALS: clear to auscultation bilaterally AUSCULTATION: clear to auscultation bilaterally Cardio: COMMON NORMALS: regular rate, regular rhythm, S1 normal heart sound present, S2 normal heart sound present, No gallops present (Cardio), No murmurs present (Cardio), No rub (Cardio) and Peripheral pulses 2+ throughout RATE: regular rate RHYTHM: regular rhythm HEART SOUNDS: S1 normal heart sound present and S2 normal heart sound present PERIPHERAL PULSES: Peripheral puls es 2+ throughout GI: OTHER: wound vac in place Extremity: COMMON NORMALS: no clubbing, cyanosis or edema and no pedal edema Urinary Catheter Management: Zurita: Cath Placed During This Visit: yes Reason for Continuing Indwelling Catheter: Accurate Measurement of Urinary Output in Critically Ill Patients Urinary Catheter Date of Insertion: 08/14/22 Urinary Catheter Time of Insertion: 14:10 Data 08/21/22 08:50 08/21/22 04:12 A&P Assessment and plan (1) Shock: (2) Adrenal crisis syndrome: (3) Paroxysmal atrial fibrillation with RVR: (4) Abdominal pain: (5) Nausea & vomiting: (6) Acute kidney injury superimposed on chronic kidney disease: (7) Chronic steroid use: (8) Obesity: (9) Hypothyroid: (10) Diabetes: Stop oral hypoglycemics Suicide insulin moderate dose protocol before meals and at bedtime. (11) Chronic kidney disease, stage 3a: (12) Hyperaldosteronism: (13) Elevated troponin: (14) Lactic acidosis: (15) Asymptomatic bacteriuria: (16) Cardiac resynchronization therapy defibrillator (DATA DELIVERABLES MANAGER-D) in place: Placed on 08/08 at outside hospital. Will request documents from outpatient husbandry technician Dr. Moody from [place]. Empiric antibiotics for now as above. Continue to monitor. 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 after DATA DELIVERABLES MANAGER-D implantation on Monday.?Patient presented to the ER today with epigastric abdominal cramps. Currently she is being managed for. Assessment: Septic shock: Secondary to ischemic necrosis of large intestine with GI translocation. CT chest abdomen and pelvis: There is subcutaneous emphysema along the left ches t wall especially superior and deep to the pacemaker.?Ischemic cecum and ascending colon with pneumatosis in the bowel wall and gas within the adjacent draining veins. Portal venous gas. There is skin thickening and mild edema of the subcutaneous fat of the lower abdominal wall/pannus that may reflect cellulitis. No fluid collection or abscess. Random cortisol:3.71 Blood culture: NTD Urine culture: Urine Legionella antigen negative Bacterial panel negative Lactic acid:3 Was on high dose of multiple pressors (Levophed phenylephrine and vasopressin),Currently on levophed. Currently on stress dose of steroid hydrocortisone 100 mg IV every 6h Empirically on broad-spectrum antibiotic vancomycin and meropenem, as well as micafungin. Ischemic necrosis of large intestine: Given her prior history of prior paroxysmal atrial fibrillation possibility of embolic episode exist. S/p laparoscopy with conversion to exploratory laparotomy and right hemicolectomy. s/p: Exploratory laparotomy. On 08/18/08/20 Patient had significant deterioration on night of 08/20: Vasopressor requirement went up, patient was extremely tachycardic, currently she is on 3 vasopressor support. Went to the OR again today had Exploratory laparotomy,Resection of ileocolic anastomosis. Partial colon resection.Ileocolic anastomosis,Partial descending colectomy. Surgery on board. RODRIGUE on CKD: Secondary to septic shock Baseline creatinine 1.2. Admission serum creatinine 2.4 Monitor BMP Intake output charting Continue IV hydration Avoid nephrotoxic Nephrology on board Refractory metabolic acidosis: Secondary to sepsis, RODRIGUE, Was on bicarb drip I am hoping that with improvement in severe metabolic acidosis, pressors requirement should also come down. Monitor serum BMP Monitor ABG Acute Anemia: S/P 6 unit PRBC Monitor H&H Transfuse to keep hemoglobin greater than 7 Likely patient was developing fulminant hepatic failure: Secondary to shock liver: Secondary to severe hypotension secondary to sepsis: Currently has shown significant improvement. ULT Abdomen: Has shown cholelithiasis without evidence of acute cholecystitis, though it is a limited evaluation, hepatomegaly. Initially AST ALT alk phos was significantly elevated: Has came down significantly. Monitor CMP for now Hyper bilirubinemia: Could be part of shock liver. Acalculous cholecystitis is unlikely. Total bilirubin 3.3, direct bilirubin 2.6. Thrombocytopenia: Possibly secondary to sepsis Monitor for possibly developing DIC 4T Score: Reviewed Review peripheral blood smear S/P 5 U Platelets S/P 8FFP A-fib with RVR: Currently on amnio drip Continue telemetry monitoring Not a candidate for anticoagulation now History of diabetes: Was on insulin drip, currently on medium dose sliding scale insulin Goal is for tight glucose control (FSG ranging from 160-180 ) Hypothyroidism: Continue levothyroxine hypopituitarism on chronic steroids Currently on hydrocortisone CODE STATUS: Full code DVT prophylaxis on SCD Disposition: SLECT LTACH has been approached. Given the possibility of prolonged recovery. Attestations Medical Necessity Statement*: Needs to be in hospital management of sepsis. Procedures Arterial Line Size (Gauge): 20 Coding Level of Care Code Acute Code for Chg Fwd Diagnoses Shock R57.9 Adrenal crisis syndrome E27.2 Paroxysmal atrial fibrillation with RVR I48.0 Abdominal pain R10.9 Nausea & vomiting R11.2 Acute kidney injury superimposed on chronic kidney disease N17.9; N18.9 Chronic steroid use Obesity E66.9 Hypothyroid E03.9 Diabetes E11.9 Chronic kidney disease, stage 3a N18.31 Hyperaldosteronism E26.9 Elevated troponin R77.8 Lactic acidosis E87.20 Asymptomatic bacteriuria R82.71 Cardiac resynchronization therapy defibrillator (DATA DELIVERABLES MANAGER-D) in place Z95.810 Acute blood loss anemia D62 Hyponatremia E87.1 Thrombocytopenia D69.6 Shock liver K72.00
[2022-08-21 15:40] LABS: Glucose Point of Care 135 mg/dL (70-110)
[2022-08-21] MEDS: sodium chloride 0.9% 1,000 ML 999 ML IV ×2 (16:07→17:15)
--- NOTE | 2022-08-21 16:38 | PC.NURSE ---
Dr. Ramos notified of patient blood pressure remaining consistently low despite levophed and vasopression titrated to max dose. Phenylephrine started and titrated to max dose. Blood pressures remained low, with MAPs from 40's to 60 reading from ART line. Heart rate remaining in 160's-170's. Dr. Ramos notified of this and order received for 2L NS bolus. See MAR for medication administration and titration.
[2022-08-21 17:32] LABS: Glucose Point of Care 116 mg/dL (70-110)
[2022-08-21 18:44] LABS: ABG PCO2 24.4 mmHg (35-45); ABG PH Result 7.12 (7.35-7.45); Alveolar-Arterial Oxygen Gradi 38.3 mmHg (5-10); Arterial Blood Gas Hematocrit 32.7 % (37-47); Base Excess ABG -19.8 mmol/L (-2.0-2.0); Blood Gas Allen Test Pos; Blood Gas Operator Identificat MONRO; Blood Gas Sample Site ART LINE; Blood Gas Sample Type Arterial; Blood Gas Tidal Volume 0.45; HCO3 ABG 7.9 mmol/L (22-26); HGB O2 Sat 93.8 % (95-100); Ionized Calcium Level - ABG 1.1 mmol/L (1.1-1.4); Methemoglobin 1.2 % (0.4-1.5); Oxygen Device VENT; Oxygen Saturation ABG 95.8; PO2 ABG 98.8 mmHg (80.0-100.0); Potassium Level - ABG 5.3 mmol/L (3.5-5.0); Total Hemoglobin 10.7 g/dL (12-16)
[2022-08-21] MEDS: sodium bicarbonate 150 MEQ in dextrose 5% 1,000 ML 135 MEQ IV (19:00)
--- NOTE | 2022-08-21 19:00 | PC.NURSE ---
Addendum entered by Anastacia Hinton RN 08/22/22 07:34: At 1900, Dr. Esqueda notified that oxygen saturation unable to be obtained despite multiple attempts with different probes and on different locations. No new orders received. Original Note: Physician Communication Dr. Esqueda called for update on patient. Vital signs, vasopressors, surgery, and neuro response discussed. Verbal order received to not restart insulin drip unless blood glucose >200. Upon assessment of patient, insulin drip paused while MAR displays administering at 1.2 mls/hr. MAR updated to show paused rate.
[2022-08-21] MEDS: sodium bicarbonate 1 mEq/mL SDV 50mL 50 MEQ IVP ×2 (19:24→21:54)
[2022-08-21 20:11] LABS: Glucose Point of Care 118 mg/dL (70-110)
[2022-08-21 20:52] LABS: Alkaline Phosphatase 106 U/L (35-105); Anion Gap 31.3 (5-19); Calcium 7.6 mg/dL (8.5-10.5); Chloride 103 mmol/L (98-107); Globulin 1.7 g/dL (1.3-4.6); Glomerular Filtration Rate 12.1 mL/min (90-130); Glucose 152 mg/dL (65-115); Osmolality Calculated 313 mOsm/kg (285-295); Potassium 6.3 mmol/L (3.5-5.1); Sodium 136 mmol/L (136-145); Total Bilirubin 4.6 mg/dL (0.15-1.2); Total Protein 3.7 g/dL (6.6-8.7)
[2022-08-21 21:04] LABS: Alanine Aminotransferase 1328 U/L (0-33)
[2022-08-21 21:22] LABS: Aspartate Amino Transferase 2474 U/L (0-32); Blood Urea Nitrogen 90 mg/dL (8-23)
[2022-08-21 21:23] LABS: Carbon Dioxide 8 mmol/L (22-29)
--- NOTE | 2022-08-21 21:35 | PC.NURSE ---
Physician Communication Dr. Esqueda contacted and informed of critical labs (CO2 8, BUN 90) as well as HR maintaining in the 130-150s and blood pressures remaining with a MAP in the 50s. Orders received to administer 1 amp sodium bicarbonate IVP, increase amio to 1 mg/min, and do a repeat CMP in 4 hours. See MAR for administration
[2022-08-21 22:16] LABS: Glucose Point of Care 116 mg/dL (70-110)
[2022-08-21] MEDS: norepinephrine 8 MG in dextrose 5 % 500 ML 76.2 MG IV (22:35)
[2022-08-21 22:54] LABS: ABG PCO2 22.5 mmHg (35-45); Alveolar-Arterial Oxygen Gradi 39.8 mmHg (5-10); Arterial Blood Gas Hematocrit 28.7 % (37-47); Base Excess ABG -22.4 mmol/L (-2.0-2.0); Blood Gas Allen Test Pos; Blood Gas Sample Site Radial, right; Blood Gas Sample Type Arterial; Blood Gas Tidal Volume 0.45; Carboxyhemoglobin 0.9 %THgb (0.4-20.1); HCO3 ABG 6.3 mmol/L (22-26); HGB O2 Sat 92.3 % (95-100); Methemoglobin 1.1 % (0.4-1.5); Oxygen Device VENT; Oxygen Saturation ABG 94.1; PO2 ABG 90.2 mmHg (80.0-100.0); Potassium Level - ABG 5.4 mmol/L (3.5-5.0); Total Hemoglobin 9.4 g/dL (12-16)
[2022-08-21 22:56] LABS: ABG PH Result 7.06 (7.35-7.45)
[2022-08-21] MEDS: calcium gluconate 0.1 gm/mL 10% SDV 10mL 1 GM IVP (23:14)
[2022-08-21] MEDS: insulin regular-human 5 UNIT in SYRINGE 1 EACH 10 UNIT IVP (23:17)
[2022-08-22] VITALS (48 sets, daily range): BP systolic 96–185; BP diastolic 39–75; PULSE 0–127; RESP 15–20; TEMP 36.8–38.1
[2022-08-22] MEDS: sodium bicarbonate 1 mEq/mL SDV 50mL 50 MEQ IVP ×2 (00:09→06:49)
[2022-08-22 00:31] LABS: Glucose Point of Care 174 mg/dL (70-110)
[2022-08-22 02:50] LABS: Glucose Point of Care 197 mg/dL (70-110)
[2022-08-22] MEDS: hydrocortisone 100 mg/2 mL SDV 50 MG IVP (02:52)
[2022-08-22 03:14] LABS: Albumin Level 1.8 g/dL (3.5-5.2); Alkaline Phosphatase 145 U/L (35-105); Anion Gap 35.4 (5-19); Calcium 7.4 mg/dL (8.5-10.5); Chloride 97 mmol/L (98-107); Globulin 1.5 g/dL (1.3-4.6); Glomerular Filtration Rate 10.5 mL/min (90-130); Glucose 254 mg/dL (65-115); Osmolality Calculated 318 mOsm/kg (285-295); Potassium 6.4 mmol/L (3.5-5.1); Sodium 135 mmol/L (136-145); Total Bilirubin 5.2 mg/dL (0.15-1.2); Total Protein 3.3 g/dL (6.6-8.7)
[2022-08-22 03:26] LABS: Alanine Aminotransferase 3403 U/L (0-33)
[2022-08-22 03:33] LABS: Blood Urea Nitrogen 95 mg/dL (8-23); Carbon Dioxide 9 mmol/L (22-29)
[2022-08-22] MEDS: sodium bicarbonate 150 MEQ in dextrose 5% 1,000 ML 135 MEQ IV (03:35)
[2022-08-22 03:40] LABS: Aspartate Amino Transferase 12562 U/L (0-32)
--- NOTE | 2022-08-22 03:40 | PC.NURSE ---
Addendum entered by Anastacia Hinton RN 08/22/22 07:33: Patient has had no urine output thus far this shift; Dr. Esqueda notified. No new orders received. Original Note: Critical labs Patient's CO2 and BUN critical at [address] Esqueda contacted; orders received to continue bicarb drip as ordered. Blood sugars also discussed; insulin drip restarted with previous multiplier per protocol. See MAR for details.
[2022-08-22 04:42] LABS: Glucose Point of Care 189 mg/dL (70-110)
[2022-08-22] MEDS: albumin 25 G/100 ML BAG 60 G IV (04:56)
[2022-08-22 05:21] LABS: Basophils # 0.1 10^3/uL (0.0-0.1); Basophils % 0.3 %; Eosinophils % 0.1 %; Hematocrit 35.2 % (37.0-47.0); Hemoglobin 9.9 g/dL (11.5-15.3); Lymphocytes # 2.1 10^3/uL (0.8-4.8); Lymphocytes % 6.4 %; Mean Corpuscular HGB Conc 28.1 g/dL (30.0-36.0); Mean Corpuscular Hemoglobin 26.9 pg (28.0-34.0); Mean Corpuscular Volume 95.7 fl (81-99); Mean Platelet Volume 11.5 fL (7.4-10.4); Monocytes # 1.5 10^3/uL (0.2-0.9); Monocytes % 4.4 %; Neutrophils # 25.87 10^3/uL (1.8-7.7); Neutrophils % 77.5 %; Nucleated Red Blood Cells # 6.3 /100WBC; Nucleated Red Blood Cells % 18.7 %; Platelet Count 127 10^3/cmm (130-400); Red Blood Count 3.68 10^6/uL (4.1-5.3); Red Cell Distribution Width 19.3 % (12.1-15.1)
[2022-08-22] MEDS: norepinephrine 8 MG in dextrose 5 % 500 ML 76.2 MG IV (05:27)
[2022-08-22 05:38] LABS: Albumin Level 1.7 g/dL (3.5-5.2); Alkaline Phosphatase 186 U/L (35-105); Anion Gap 35.9 (5-19); Chloride 96 mmol/L (98-107); Globulin 1.7 g/dL (1.3-4.6); Glomerular Filtration Rate 10.2 mL/min (90-130); Glucose 270 mg/dL (65-115); Osmolality Calculated 315 mOsm/kg (285-295); Sodium 133 mmol/L (136-145); Total Bilirubin 5.2 mg/dL (0.15-1.2); Total Protein 3.4 g/dL (6.6-8.7)
[2022-08-22] MEDS: pantoprazole 40 mg SDV IVP (05:39)
[2022-08-22] MEDS: meropenem 1,000 MG in sodium chloride 0.9% (plus) 50 ML 100 MG IV (05:40)
--- NOTE | 2022-08-22 05:42 | PM.PN ---
Subjective Subjective: overnight events reviewed Vitals/I&O/Wt Last Vital Signs Temp 98.4 F 08/22/22 00:00 Pulse 117 H 08/22/22 03:00 Resp 15 08/22/22 05:31 BP 117/44 08/22/22 02:30 Pulse Ox 93 08/21/22 19:45 O2 Del Method Mechanical Ventilation 08/22/22 02:36 O2 Flow Rate 40 08/18/22 16:08 FiO2 60 08/22/22 05:31 08/21/22 08/21/22 08/22/22 14:59 22:59 06:59 Intake Total 721.850 / 837.178 7909.695 / 3815.545 3186 / 7001.545 Output Total 90 / 90 720 / 810 Balance 631.850 / 004.599 1655.695 / 3005.545 3186 / 6191.545 Weight last 48 hrs Weight 172.365 kg Weight 172.365 kg Weight 173.896 kg Physical Exam Urinary Catheter Management: Zurita: Cath Placed During This Visit: yes Reason for Continuing Indwelling Catheter: Accurate Measurement of Urinary Output in Critically Ill Patients Urinary Catheter Date of Insertion: 08/14/22 Urinary Catheter Time of Insertion: 14:10 Data 08/22/22 04:27 08/22/22 04:27 A&P Assessment and plan (1) Multiorgan failure: Plan Multiorgan failure including acute kidney injury due to sepsis, hepatic failure, VDRF Maxed out on three pressors, severe metabolic acidosis, hyperkalemia I spoke with on telephone. Explained gravity of situation. Attempt at dialysis wound not change outcome and could hasten demise. He would like to speak with hospitalist about DNR, comfort care. RN aware. Attestations Medical Necessity Statement*: see above Time Spent in Patient Care: 16 - 35 minutes Procedures Arterial Line Size (Gauge): 20 Coding Level of Care Code Acute Code for Chg Fwd Diagnoses Multiorgan failure
[2022-08-22 05:52] LABS: Alanine Aminotransferase 3849 U/L (0-33)
[2022-08-22 06:00] LABS: Blood Urea Nitrogen 95 mg/dL (8-23); Carbon Dioxide 8 mmol/L (22-29); Potassium 6.9 mmol/L (3.5-5.1)
[2022-08-22 06:03] LABS: Slide Review Slide Review Perform
[2022-08-22] MEDS: insulin regular-human 250 UNIT in sodium chloride 0.9% 250 ML IV (06:03)
[2022-08-22 06:06] LABS: White Blood Count 33.4 10^3/uL (4.0-10.0)
--- NOTE | 2022-08-22 06:08 | PC.NURSE ---
Critical labs Dr. Esqueda notified of the following critical lab values: potassium 6.9, CO2 8, BUN 95, and WBC 33.4. Orders received for 1 gm calcium gluconate IVP, 1 amp sodium bicarb IVP, 10 units insulin IVP once, and 1 amp D50 IVP once. See MAR for administration.
[2022-08-22 06:26] LABS: Glucose Point of Care 209 mg/dL (70-110)
[2022-08-22 06:28] LABS: Vancomycin Random 27.2 ug/mL (20.0-40.0)
[2022-08-22] MEDS: insulin regular-human 10 UNIT in SYRINGE 1 EACH IVP (06:49)
[2022-08-22] MEDS: calcium gluconate 0.1 gm/mL 10% SDV 10mL 1 GM IVP (06:49)
[2022-08-22 08:12] LABS: Aspartate Amino Transferase 17649 U/L (0-32)
[2022-08-22 08:33] LABS: Glucose Point of Care 215 mg/dL (70-110)
--- NOTE | 2022-08-22 09:41 | PC.NURSE ---
Dr. Hernadez spoke with family about comfort care measures. Family agrees to change care to comfort care. Verbal orders to turn off drips given.
--- NOTE | 2022-08-22 09:48 | PM.PN ---
Subjective Subjective: Patient seen and examined. Remains intubated Vitals/I&O/Wt Last Vital Signs Temp 100.5 F H 08/22/22 07:45 Pulse 86 08/22/22 08:00 Resp 15 08/22/22 07:58 BP 141/45 08/22/22 08:00 Pulse Ox 93 08/21/22 19:45 O2 Del Method Mechanical Ventilation 08/22/22 07:58 O2 Flow Rate 40 08/18/22 16:08 FiO2 40 08/22/22 07:58 08/21/22 08/22/22 08/22/22 22:59 06:59 14:59 Intake Total 3093.695 / 3815.545 3276.673 / 7092.218 6.55 / 6.55 Output Total 720 / 810 350 / 1160 Balance 2373.695 / 3005.545 2926.673 / 5932.218 6.55 / 6.55 Weight last 48 hrs Weight 380 lb Weight 380 lb Weight 383 lb 6 oz Physical Exam Narrative: General: Intubated Abdomen: Open with ABThera wound VAC system Urinary Catheter Management: Zurita: Cath Placed During This Visit: yes Reason for Continuing Indwelling Catheter: Accurate Measurement of Urinary Output in Critically Ill Patients Urinary Catheter Date of Insertion: 08/14/22 Urinary Catheter Time of Insertion: 14:10 Data 08/22/22 04:27 08/22/22 04:27 A&P Assessment and plan (1) Ischemia, bowel: (2) Multiorgan failure: Plan At this point the prognosis is very grave. She is maxed out on 3 pressors and has significant hyperkalemia requiring hemodialysis. However she would not tolerate hemodialysis. Family has made the decision to make her comfort care. I support their decision. At this point all medical and surgical treatment has been exhausted. I am available to answer any questions the family might have Attestations Medical Necessity Statement*: Per primary Procedures Arterial Line Size (Gauge): 20 Coding Level of Care Code Acute Code for Chg Fwd Diagnoses Ischemia, bowel K55.9 Multiorgan failure
[2022-08-22] MEDS: LORazepam 2 mg/mL INJ 1 mL IVP (10:09)
[2022-08-22] MEDS: morphine 4 mg/mL SDV 1 mL IVP (10:10)
--- NOTE | 2022-08-22 10:14 | PC.SOCIAL ---
SDOH assessment not completed as patient placed on comfort care.
--- NOTE | 2022-08-22 11:27 | PC.NURSE ---
Comfort care procedures followed, family and Shannen at bedside, any and all questions answered. See MAR for medications given for patient comfort. Family agrees to extubation, request granted at 1024. 2L NC for patient comfort. Provider Relations Representative contacted for pace maker, instructed to place magnet over site, followed recommendations, defibrillator disabled. Patient at 1030. Family signed release of body. MTS called and provider relations representative, Isabelle, released patient for home. All lines and Zurita catheter removed.
--- NOTE | 2022-08-22 13:34 | PC.NURSE ---
Patient body in care of [facility] home territory sales representative [phone].
--- NOTE | 2022-08-22 15:05 | PM.DDS ---
Discharge Providers DDS Date of Admission: 08/14/22 14:58 Date Summary Completed: 08/22/22 Attending Provider at Admission: Keo Hernadez MD Time of : 10:30 Attending Provider at Discharge: Keo Hernadez MD Consults: Surgery: Dr. Palomo Telemetry nephrology Primary Care Provider: Piedad Sandhu MD DS Diagnoses Hospital Diagnoses (1) Ischemia, bowel: (2) Multiorgan failure: Reason for Visit Reason for Visit N/V; SOB Summary Date and Time of Date of : 08/22/22 Time of : 10:30 Summary Summary: Carolyn Alexander is a 72 year old female with past medical history of congestive diastolic heart failure, chronic intermittent atrial fibrillation post radiofrequency ablation, CAD, hypertension, hypothyroidism, hypopituitarism on chronic steroids, pulmonary hypertension, obstructive sleep apnea who was recently discharged from [facility] after PURCHASING [employer] implantation on Monday.? Today is Monday. Patient presented to the ER today with epigastric abdominal cramps which are burning in nature along with nausea and vomiting since today morning along with diarrhea since last night.? Because of the symptoms patient has not been able to take her medications since last night including steroids and Cardizem.? Patient denies having any chest pain, dizziness, headache, diarrhea, sick contacts. In the ER patient was found to be in atrial fibrillation with rapid ventricular response for which she was started on Cardizem drip and 500 cc of normal saline bolus was ordered. On examination in the [facility] patient was complaining of abdominal pain along with episode of vomiting.? Vomitus is bilious in nature.? She is converted back to sinus rhythm with heart rate running in 70s but blood pressure seems to be running at 80 systolics.? Patient has not received the bolus as of yet but Cardizem drip is running at 5/h.? Patient denies having any dizziness currently.? Family at bedside.? Patient is able to give her own history by herself. Patient was admitted to the hospital for further evaluation and management. CT abdomen pelvis was done which was concerning for ischemic colitis. During hospitalization patient developed septic shock with requirement of stress dose steroids, vasopressors. Blood cultures remain negative. Surgery was consulted given concern for ischemic colitis. Patient underwent diagnostic laparoscopy with conversion to ex lap with right hemicolectomy on 05/21. During hospitalization patient had to be taken back to the OR multiple times on 08/16, 08/18 and 08/21 for repeated washout and colectomy given extent of ischemia. She developed multiorgan dysfunction with septic shock requiring multiple pressors, metabolic acidosis along with DIC. Given all of the above, critical nature of the illness further goals of care discussions were done with patient's DPOA/, son at bedside and they decided about hospice care on 08/22 morning. Patient was eventually extubated as per comfort care measure protocols and vasopressors were discontinued. Patient with family at bedside and comfortable state at 10:30 AM on 08/22. Additional Data Confirmation of as documented by pronouncing clinician: no pulse, no respirations and no heart sounds Family: at bedside Additional persons at bedside: nursing staff Attending/PCP notified?: Attending notified Was code activated?: No Autopsy requested?: No Advance directives?: Yes Hospice patient?: Yes Discharge Plan Discharge Patient Disposition: At Medical Facility Condition: Stable Prescriptions: No Action (DME) Pharmacist Choice Strip See Rx Instructions .Route Qty: 50 2RF Rx Instructions: AC and HS diltiazem HCl 300 mg capsule,extended release 24hr 300 mg PO QAM Qty: 30 3RF levothyroxine 175 mcg tablet 175 mcg PO QAM 90 Days Qty: 90 1RF pramipexole [Mirapex] 0.5 mg tablet 1 mg PO BEDTIME Qty: 30 4RF potassium chloride [Klor-Con M20] 20 mEq tablet,ER particles/crystals 20 meq PO BID PRN (Reason: low potassium) Qty: 30 3RF neomycin-polymyxin B-dexameth [Maxitrol] 3.5mg/mL-10,000 unit/mL-0.1 % drops,suspension 1 drp ophthalmic (eye) Q12H Qty: 5 0RF oxybutynin chloride [Ditropan XL] 10 mg tablet extended release 24hr 10 mg PO DAILY Qty: 30 0RF losartan 50 mg tablet 50 mg PO DAILY Qty: 30 3RF acarbose 25 mg tablet 25 mg PO TID Qty: 90 0RF insulin glargine [Lantus Solostar U-100 Insulin] 100 unit/mL (3 mL) insulin pen 20 unit SUBCUT DAILY 30 Days Qty: 15 0RF (DME) blood-glucose meter,continuous Misc See Rx Instructions .Route Qty: 1 0RF Rx Instructions: As directed one meter with all necessary supplies (DME) cpap mask and supplies See Rx Instructions .Route .MEDSUPPLY Qty: 1 0RF Rx Instructions: As directed Antibiotic (fylln-oqsyk-zpriy) 3.5mg-400 unit- 5,000 unit/gram ointment 1 applic topical QID 5 Days Qty: 14 0RF escitalopram oxalate [Lexapro] 10 mg tablet 10 mg PO DAILY Qty: 30 1RF ondansetron HCl 8 mg tablet 8 mg PO Q8H PRN (Reason: Nausea And Vomiting) Qty: 30 1RF spironolactone 25 mg tablet See Rx Instructions .ROUTE .COMPLEX Qty: 120 1RF Dose Instruction: TAKE TWO TABLETS BY MOUTH TWICE DAILY Rx Instructions: TAKE TWO TABLETS BY MOUTH TWICE DAILY dexlansoprazole [Dexilant] 60 mg capsule,biphase delayed releas 60 mg PO DAILY Qty: 30 2RF insulin aspart U-100 [Novolog FlexPen U-100 Insulin] 100 unit/mL (3 mL) insulin pen 15 unit SUBCUT TID 90 Days Qty: 40.5 0RF (DME) diabetic supplies, miscellan. Misc See Rx Instructions .Route Qty: 1 0RF Rx Instructions: As directed polyethylene glycol 3350 [Miralax] 17 gram/dose Powder 17 g PO DAILY PRN (Reason: Constipation) lactulose 10 gram/15 mL solution 30 ml PO BID PRN (Reason: Constipation) Eliquis 5 mg tablet 5 mg PO BID Victoza 3-Nabeel 0.6 mg/0.1 mL (18 mg/3 mL) pen injector 1.8 mg SUBCUT QAM dexamethasone 1 mg tablet 1 mg PO DAILY bumetanide 1 mg tablet 2 mg PO BID ciprofloxacin HCl 500 mg tablet 500 mg PO BID Qty: 8 0RF Referrals: Piedad Sandhu MD [Primary Care Provider] - Patient Instructions: Opioid Safety Probable Cause of Probable cause of : Ischemia of large intestine DS Attestations Time Spent in /Discharge Care*: critical care time Critical Care Time (min): 60 Quality - AMI: AMI present?: No Quality - Stroke: CVA present?: No Quality - VTE: VTE present?: No Coding Level of Care Code Critical Care >/= 30 minutes Critical care time (in minutes): 60 The high probability of a clinically significant, sudden or life threatening deterioration, as referenced in this documentation, required my full and direct attention, intervention and personal management. The critical care time shown is in addition to time spent performing any reported separately billable procedures and includes the following: [x] Data and vital sign review and interpretation [x] Patient assessment, examination and intervention [x] Medication orders and management [x] Patient/Family updates as able [x] Care Coordination and Documentation. Diagnoses Ischemia, bowel K55.9 Multiorgan failure
== END 2022-08-22 13:39 | disposition expired | DRG 853 ==
LOC: ER 15:09 → CSU 15:20 → ICU 18:29
PROVIDERS: Anesthesiology; Internal Medicine; Student in an Organized Health Care Education/Training Program; Surgery; Admitting Provider Student in an Organized Health Care Education/Training Program; Emergency Provider Family Medicine; PCP Family Medicine; Visit Provider Student in an Organized Health Care Education/Training Program
PROC: 0DTF0ZZ Resection of Right Large Intestine, Open Approach (ICD-10-PCS; CPT 49000; principal; 2022-08-14 21:25)
PROC: 0DTF4ZZ Resection of Right Large Intestine, Percutaneous Endoscopic Approach (ICD-10-PCS; CPT 44205; 2022-08-14 21:25)
PROC: 0DBB0ZZ Excision of Ileum, Open Approach (ICD-10-PCS; CPT 49000; principal; 2022-08-16 15:00)
PROC: 0DBB0ZZ Excision of Ileum, Open Approach (ICD-10-PCS; CPT 44120; 2022-08-16 15:00)
PROC: 0DBB0ZZ Excision of Ileum, Open Approach (ICD-10-PCS; 2022-08-16 15:00)
PROC: 0DBB0ZZ Excision of Ileum, Open Approach (ICD-10-PCS; 2022-08-16 15:00)
DX: A41.9 Sepsis, unspecified organism (principal); D65 Disseminated intravascular coagulation [defibrination syndrome]; K55.049 Acute infarction of large intestine, extent unspecified; R65.21 Severe sepsis with septic shock; K72.00 Acute and subacute hepatic failure without coma; I13.0 Hypertensive heart and chronic kidney disease with heart failure and stage 1 through stage 4 chronic kidney disease, or unspecified chronic kidney disease; I50.32 Chronic diastolic (congestive) heart failure; I48.20 Chronic atrial fibrillation, unspecified; E23.0 Hypopituitarism; Z16.12 Extended spectrum beta lactamase (ESBL) resistance; Z68.44 Body mass index [BMI] 60.0-69.9, adult; E27.2 Addisonian crisis; N17.9 Acute kidney failure, unspecified; E87.20 Acidosis, unspecified; E87.1 Hypo-osmolality and hyponatremia; D62 Acute posthemorrhagic anemia; N18.31 Chronic kidney disease, stage 3a; E11.22 Type 2 diabetes mellitus with diabetic chronic kidney disease; I25.10 Atherosclerotic heart disease of native coronary artery without angina pectoris; E03.9 Hypothyroidism, unspecified; Z79.52 Long term (current) use of systemic steroids; I27.20 Pulmonary hypertension, unspecified; G89.29 Other chronic pain; M54.9 Dorsalgia, unspecified; Z86.16 Personal history of COVID-19; E66.01 Morbid (severe) obesity due to excess calories; D45 Polycythemia vera; E11.51 Type 2 diabetes mellitus with diabetic peripheral angiopathy without gangrene; Z87.440 Personal history of urinary (tract) infections; Z96.82 Presence of neurostimulator; E26.9 Hyperaldosteronism, unspecified; K63.89 Other specified diseases of intestine; Z51.5 Encounter for palliative care; Z95.810 Presence of automatic (implantable) cardiac defibrillator; G47.33 Obstructive sleep apnea (adult) (pediatric); T81.82XA Emphysema (subcutaneous) resulting from a procedure, initial encounter; I95.9 Hypotension, unspecified; E87.5 Hyperkalemia; Y83.8 Other surgical procedures as the cause of abnormal reaction of the patient, or of later complication, without mention of misadventure at the time of the procedure
CPT/HCPCS: 12345; 36415; 36416; 36430; 36569; 36592; 36600; 51702; 71045; 71250; 74176; 76705; 80048; 80051; 80053; 80202; 81001; 82248; 82330; 82436; 82533; 82570; 82607; 82746; 82803; 82805; 82962; 83605; 83690; 83735; 83880; 84100; 84133; 84145; 84300; 84484; 85007; 85014; 85018; 85025; 85027; 85049; 85362; 85378; 85384; 85610; 85730; 85999; 86403; 86850; 86900; 86920; 86927; 87040; 87070; 87106; 87205; 87449; 88307; 88309; 93005; 94002; 94003; 94640; 94664; 94799; 96365; 96366; 96367; 96372; 96375; 96376; 99285; A4222; A4570; C1751; C9113; J0171; J0282; J0330; J0612; J1100; J1170; J1200; J1644; J1650; J1720; J1815; J2060; J2185; J2248; J2250; J2270; J2370; J2405; J2550; J2704; J2720; J2930; J3010; J3372; J3480; J3490; J7030; J7040; J7050; J7060; J7070; J7614; J7626; J7644; P9016; P9017; P9035; P9040; P9045; P9046; Q3014